=== PATIENT | male | born 1935 | race African-American/Black ===

== ENCOUNTER 2017-03-08 08:58 | Outpatient (CLI) | payer MEDICARE ==
[2017-03-08 09:21] LABS: Blood Urea Nitrogen 26 mg/dL (9-20)
--- NOTE | 2017-03-09 08:02 | Cat Scan Report ---
CTA NECK: HISTORY: Occlusion or stenosis the carotid arteries. TECHNIQUE: Helical CT following IV contrast. Sagittal and coronal reformatted images. 3D volume rendering technique. Stenosis was calculated using NASCET criteria. Comparison: 03/24/15. FINDINGS: The visualized aortic arch, innominate artery and proximal bilateral subclavian arteries are widely patent with less than 20% stenosis. Within the right carotid system: There are moderate to severe calcified, irregular plaques in the right carotid bulb. There appears to be mild poststenotic dilatation in the proximal right ICA. Stenosis in the right carotid bulb is estimated at 70% or greater. The right ICA is widely patent with less than 20% stenosis throughout. Within the left carotid system: Endarterectomy changes are suspected since 2015. The left carotid system is widely patent with less than 20% stenosis. There are moderate calcifications and estimated 50% stenosis at the origin of both cervical vertebral arteries. The remainder of the vertebral arteries are widely patent with less than 20% stenosis. The left vertebral artery is slightly dominant. IMPRESSION: Endarterectomy changes within the left carotid system since 2015 exam with no abnormality noted on today's exam. Moderate to severe atherosclerotic disease is identified in the right carotid bulb with stenosis estimated at 70% or greater as outlined above. Consider correlation with carotid Doppler ultrasound. 50% stenosis at the origin of the vertebral arteries bilaterally.
== END 2017-03-08 08:59 | disposition home or self-care (01) ==
LOC: CT 08:58
PROVIDERS: ATTEND Surgery Vascular Surgery
DX: I63.239 Cerebral infarction due to unspecified occlusion or stenosis of unspecified carotid artery (principal); I10 Essential (primary) hypertension; Z98.890 Other specified postprocedural states
CPT/HCPCS: 36415; 70498; 82565; 84520; Q9967

== ENCOUNTER 2018-03-03 09:56 | Outpatient (CLI) | payer MEDICARE ==
[2018-03-03 11:04] LABS: Blood Urea Nitrogen 15 mg/dL (9-20)
--- NOTE | 2018-03-03 15:42 | Cat Scan Report ---
FINAL REPORT EXAM: CT ANGIO NECK HEAD HISTORY: CTA CAROTID AND VERTEBRAL, CEREBRAL INFRACTURE TECHNIQUE: CTA of the Head and Neck with IV contrast. Coronal and sagittal reconstructed imaging provided. Carotid stenosis calculated by the NASCET method. PRIORS: None currently available. FINDINGS: HEAD: Moderate to severe calcified plaque in the cavernous carotids with 65-75 percent narrowing in both. Irregular wall of the right and left M1 segments. With 30-40 percent narrowing of the left M1 segment and 20-30 percent narrowing of the right M1 segment The remainder of the anterior circulation appears patent. The M2 segments are patent. Posterior circulation appears patent. Mild calcification in the intracranial vertebral arteries. NECK: RIGHT CAROTID: Origin: Mild plaque. Common: Unremarkable. Bifurcation: Mostly calcified plaque. 65-75 percent narrowing. Internal: Calcified plaque at the proximal portion causes 75-85 percent narrowing. Mid and distal segments are patent. External: Unremarkable. There is no aneurysm, dissection, vascular malformation, or significant vascular stenosis. There is no evidence for vasculitis. LEFT CAROTID: Origin: Mild plaque. Common: Mild plaque in the mid segment. Bifurcation: Ectatic measuring 1.1 cm with mild wall thickening. Suspect prior endarterectomy. Internal: Mild calcification and wall thickening at the proximal segment. Mid and distal segments are intact. Mild calcification at the distal segment. External: Unremarkable. There is no aneurysm, dissection, vascular malformation, or significant vascular stenosis. There is no evidence for vasculitis. VERTEBRALS: Ekba-[id number] disease at the origin of the both vertebral arteries. Left vertebral artery is slightly more prominent compared to the right. There is no aneurysm, dissection, vascular malformation, or significant vascular stenosis. There is no evidence for vasculitis. Moderate aortic atherosclerotic disease. No aneurysm or dissection. Major branch arteries are unremarkable. Partially imaged main pulmonary artery is unremarkable. Severe emphysema. 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 Irregularity of the right and left M1 segments without occlusions suggests mural thrombus or vasculitis. Left is more notable compared to the right. Hemodynamically significant stenosis in the right bifurcation and proximal ICA. Suspect post endarterectomy changes at the left bifurcation proximal ICA.
== END 2018-03-03 09:57 | disposition home or self-care (01) ==
LOC: CT 09:56
PROVIDERS: ATTEND Surgery Vascular Surgery
DX: I63.239 Cerebral infarction due to unspecified occlusion or stenosis of unspecified carotid artery (principal); M53.82 Other specified dorsopathies, cervical region; I70.0 Atherosclerosis of aorta; J43.9 Emphysema, unspecified; I10 Essential (primary) hypertension; I25.10 Atherosclerotic heart disease of native coronary artery without angina pectoris; E78.00 Pure hypercholesterolemia, unspecified; K21.9 Gastro-esophageal reflux disease without esophagitis; M10.9 Gout, unspecified; Z87.891 Personal history of nicotine dependence
CPT/HCPCS: 36415; 70498; 82565; 84520; Q9967

== ENCOUNTER 2018-07-04 16:58 | Inpatient (IN) | payer MEDICARE ==
--- NOTE | 2018-07-04 17:20 | Emergency Department Report ---
Blank Doc - Documentation Documentation: This is a 83-year-old male that presents with ZULEYKA with exertion x 2 days. He reports a cough for 5 days. History of COPD, HTN, and HLD. Sat 88 % on room air. 3L oxygen applied. This initial assessment diagnostic orders/clinical plan/treatment(s) is/are subject to change based on patient's health status, clinical progression and re- assessment by fellow clinical providers in the ED. Further treatment and workup at subsequent clinical providers discretion. Patient/guardians urged not to elope from ED s their condition may be serious if not clinically assessed and managed. Initial orders include: Labs, EKG, and CXR Main ED for evaluation.
[2018-07-04] MEDS ORDERED: MAGNESIUM SULFATE 2GM/50ML 2 GM/50 ML BAG IV ONE (17:43)
[2018-07-04] MEDS ORDERED: ATROVENT IH ONE (17:43)
[2018-07-04] MEDS ORDERED: SOLU-Medrol IV ONE (17:43)
[2018-07-04] MEDS ORDERED: PROVENTIL IH ONE (17:43)
[2018-07-04 17:58] LABS: Basophils # (Auto) 0.1 K/mm3 (0.0-0.1); Basophils % (Auto) 0.6 % (0.0-1.8); Eosinophils # (Auto) 0.2 K/mm3 (0.0-0.4); Eosinophils % (Auto) 0.9 % (0.0-4.3); Hematocrit 41.3 % (35.5-45.6); Hemoglobin 13.8 gm/dl (11.8-15.2); Lymphocytes # (Auto) 1.5 K/mm3 (1.2-5.4); Lymphocytes % (Auto) 8.5 % (13.4-35.0); Mean Corpuscular HGB Conc 33 % (32-34); Mean Corpuscular Volume 91 fl (84-94); Monocytes # (Auto) 1.3 K/mm3 (0.0-0.8); Monocytes % (Auto) 7.6 % (0.0-7.3); Platelet Count 262 K/mm3 (140-440); Red Blood Count 4.52 M/mm3 (3.65-5.03); Red Cell Distribution Width 14.4 % (13.2-15.2)
[2018-07-04 18:16] LABS: BUN/Creatinine Ratio 18; Blood Urea Nitrogen 16 mg/dL (9-20); Hemolysis Index 41
[2018-07-04] MEDS ORDERED: NACL 0.9% 1000 ML 1,000 ML IV ONE (18:34)
[2018-07-04] MEDS ORDERED: LEVAQUIN 500MG/100ML 500 MG/100 ML BAG IV ONE (18:34)
[2018-07-04] MEDS ORDERED: NACL 0.9% 1000 ML 1,000 ML IV SCH (18:35)
[2018-07-04] MEDS ORDERED: TYLENOL PO ONE (18:38)
[2018-07-04 18:39] LABS: INR 0.89 (0.87-1.13)
--- NOTE | 2018-07-04 18:41 | Emergency Department Report ---
ED General Adult HPI - General Chief complaint: Dyspnea/Respdistress Stated complaint: ZULEYKA Time Seen by Provider: 07/04/18 17:16 Source: family, RN notes reviewed, old records reviewed Mode of arrival: Wheelchair Limitations: Language Barrier - History of Present Illness Initial comments: Patient indicates that he would like his son, Mr. Jay Morejon to translate. Primary care : [facility] Pulmonology: Dr Negron Past medical history: Asthma, hypertension, carotid artery disease, COPD, not currently on home oxygen this is an 83-year-old gentleman who presents to the emergency room with a complaint of painless cough, wheezing, shortness of breath, mucous production. Symptoms have been going on for the past few days, they're constant, worse with physical exertion, and decreased with rest. Initially found to be hypoxic, treated with albuterol, Atrovent, steroids, this improved symptoms. There is no posterior leg pain, no leg swelling, no recent surgeries, no recent hospitalizations, and family endorses no DVT or pulmonary embolus risk factors. -: Gradual Severity scale (0 -10): 0 Improves with: other Worsens with: other Associated Symptoms: cough, loss of appetite, malaise, shortness of breath, weakness. denies: confusion, chest pain, diaphoresis, fever/chills, headaches, nausea/vomiting, rash, seizure - Related Data Home Medications Medication Instructions Recorded Confirmed Last Taken AtorvaSTATin [Lipitor] 1 tab PO DAILY 10/14/14 04/25/16 04/12/16 06:00 Fluticasone/Salmeterol [Advair 1 puff IH BID 10/14/14 04/25/16 04/11/16 Diskus 250-50 mcg] Lisinopril [Zestril TAB] 40 mg PO QDAY 10/14/14 04/25/16 04/12/16 06:00 Metoprolol [Lopressor TAB] 50 mg PO DAILY 03/21/15 04/25/16 04/11/16 08:00 Tamsulosin [Flomax] 0.4 mg PO QDAY 03/21/15 04/25/16 04/11/16 Alendronate Sodium [Fosamax] 70 mg PO QWEEK 01/16/16 04/25/16 04/11/16 Aspirin EC [Aspirin Enteric Coated 81 mg PO QDAY 01/16/16 04/25/16 03/30/16 TAB] Meloxicam [Mobic] 15 mg PO DAILY 01/16/16 04/25/16 03/23/16 Montelukast [Singulair] 10 mg PO QPM 01/16/16 04/25/16 04/11/16 Pentoxifylline [TRENtal] 400 mg PO BID 01/16/16 04/25/16 04/11/16 cycloSPORINE [Restasis 0.05%] 1 drop OU BID 01/16/16 04/25/16 04/11/16 Albuterol Sulfate [Ventolin HFA] 1 unit IH BID 01/19/16 04/25/16 04/12/16 06:00 Fluticasone/Salmeterol [Advair 1 puff INHALATION DAILY 04/09/16 04/25/16 04/11/16 250-50 Diskus] Lipase/Protease/Amylase [Creon Dr 1 each PO DAILY 04/09/16 04/25/16 04/11/16 24,000 Units Capsule] Loratadine [Allergy Relief] 10 mg PO DAILY 04/09/16 04/25/16 04/11/16 Omeprazole 40 mg PO DAILY 04/09/16 04/25/16 04/11/16 Simethicone 80 mg PO DAILY 04/09/16 04/25/16 04/11/16 Previous Rx's Medication Instructions Recorded Last Taken Type Clopidogrel [Plavix] 75 mg PO QDAY #30 tablet 03/25/15 04/04/16 Rx HYDROcodone/APAP 5-325 [[place] 1 - 2 each PO Q6HR PRN #60 tablet 03/25/15 04/11/16 Rx 5-325 mg TAB] HYDROcodone/APAP 5-325 [[place] 1 each PO Q4HR PRN #14 tablet 04/21/16 Unknown Rx 5/325] HYDROcodone/APAP 5-325 [[place] 1 - 2 each PO Q6HR PRN #10 tablet 04/25/16 Unknown Rx 5/325] Allergies Allergy/AdvReac Type Severity Reaction Status Date / Time No Known Allergies Allergy Verified 01/19/16 08:38 ED Review of Systems ROS: Stated complaint: ZULEYKA Other details as noted in HPI Constitutional: malaise, weakness Eyes: denies: eye discharge ENT: congestion Respiratory: SOB with exertion, wheezing Cardiovascular: denies: chest pain Gastrointestinal: abdominal pain Genitourinary: denies: dysuria Musculoskeletal: denies: arthralgia Skin: denies: lesions Neurological: weakness ED Past Medical Hx - Past Medical History Previous Medical History?: Yes Hx Hypertension: Yes (PULMONARY HYPERTENSION) Hx Heart Attack/AMI: No Hx GERD: Yes Hx Liver Disease: No Hx Renal Disease: No Hx Arthritis: Yes Hx Headaches / Migraines: Yes Hx Asthma: No Hx COPD: Yes Hx HIV: No Additional medical history: bladder tumor. elevated cholestrol - Surgical History Hx Open Heart Surgery: Yes ("RING AROUND VALVE",CABG, or tell me that the patient had a valvuloplasty ) Additional Surgical History: eye surgery. mitral valve repair - Social History Smoking Status: Former Smoker Substance Use Type: Alcohol - Medications Home Medications: Home Medications Medication Instructions Recorded Confirmed Last Taken Type AtorvaSTATin [Lipitor] 1 tab PO DAILY 10/14/14 04/25/16 04/12/16 06:00 History Fluticasone/Salmeterol [Advair 1 puff IH BID 10/14/14 04/25/16 04/11/16 History Diskus 250-50 mcg] Lisinopril [Zestril TAB] 40 mg PO QDAY 10/14/14 04/25/16 04/12/16 06:00 History Metoprolol [Lopressor TAB] 50 mg PO DAILY 03/21/15 04/25/16 04/11/16 08:00 H istory Tamsulosin [Flomax] 0.4 mg PO QDAY 03/21/15 04/25/16 04/11/16 History Clopidogrel [Plavix] 75 mg PO QDAY #30 tablet 03/25/15 04/25/16 04/04/16 Rx HYDROcodone/APAP 5-325 [[place] 1 - 2 each PO Q6HR PRN #60 tablet 03/25/15 04/25/16 04/11/16 Rx 5-325 mg TAB] Alendronate Sodium [Fosamax] 70 mg PO QWEEK 01/16/16 04/25/16 04/11/16 History Aspirin EC [Aspirin Enteric Coated 81 mg PO QDAY 01/16/16 04/25/16 03/30/16 History TAB] Meloxicam [Mobic] 15 mg PO DAILY 01/16/16 04/25/16 03/23/16 History Montelukast [Singulair] 10 mg PO QPM 01/16/16 04/25/16 04/11/16 History Pentoxifylline [TRENtal] 400 mg PO BID 01/16/16 04/25/16 04/11/16 History cycloSPORINE [Restasis 0.05%] 1 drop OU BID 01/16/16 04/25/16 04/11/16 History Albuterol Sulfate [Ventolin HFA] 1 unit IH BID 01/19/16 04/25/16 04/12/16 06:00 History Fluticasone/Salmeterol [Advair 1 puff INHALATION DAILY 04/09/16 04/25/16 04/11/16 History 250-50 Diskus] Lipase/Protease/Amylase [Creon Dr 1 each PO DAILY 04/09/16 04/25/16 04/11/16 History 24,000 Units Capsule] Loratadine [Allergy Relief] 10 mg PO DAILY 04/09/16 04/25/16 04/11/16 History Omeprazole 40 mg PO DAILY 04/09/16 04/25/16 04/11/16 History Simethicone 80 mg PO DAILY 04/09/16 04/25/16 04/11/16 History HYDROcodone/APAP 5-325 [[place] 1 each PO Q4HR PRN #14 tablet 04/21/16 04/25/16 Unknown Rx 5/325] HYDROcodone/APAP 5-325 [[place] 1 - 2 each PO Q6HR PRN #10 tablet 04/25/16 Unknown Rx 5/325] ED Physical Exam - General Limitations: Language Barrier General appearance: alert, in no apparent distress - Head Head exam: Present: atraumatic, normocephalic - Eye Eye exam: Present: normal appearance, EOMI. Absent: nystagmus - ENT ENT exam: Present: normal exam, normal orophraynx, mucous membranes moist, normal external ear exam - Neck Neck exam: Present: normal inspection, full ROM - Respiratory Respiratory exam: Present: respiratory distress, wheezes, rhonchi - Cardiovascular Cardiovascular Exam: Present: regular rate, normal rhythm, normal heart sounds. Absent: bradycardia, tachycardia, irregular rhythm, systolic murmur, diastolic murmur, rubs, gallop - GI/Abdominal GI/Abdominal exam: Present: soft. Absent: distended, tenderness, guarding, rebound, rigid, pulsatile mass - Rectal Rectal exam: Present: deferred - Extremities Exam Extremities exam: Present: normal inspection, full ROM, other (2+ pulses noted in the bilateral upper, lower extremities. Compartments soft. No long bony tenderness. The pelvis is stable.). Absent: calf tenderness - Back Exam Back exam: Present: normal inspection, full ROM. Absent: tenderness, CVA tenderness (R), paraspinal tenderness, vertebral tenderness - Neurological Exam Neurological exam: Present: alert, other (Extraocular movements intact. Tongue midline. No facial droop. Facial sensation intact to light touch in the V1, V2, V3 distribution bilaterally. 5 and 5 strength in 4 extremities.. Sensation is intact to light touch in 4 extremities.). Absent: motor sensory deficit - Psychiatric Psychiatric exam: Present: anxious - Skin Skin exam: Present: warm, dry, intact, normal color. Absent: rash ED Course Vital Signs 07/04/18 07/04/18 17:16 17:56 Temperature 99.3 F Pulse Rate 96 H Pulse Rate [ 92 H Anterior Bilateral Throughout] Respiratory 22 Rate Respiratory 20 Rate [Anterior Bilateral Throughout] Blood Pressure 124/56 O2 Sat by Pulse 88 Oximetry - Reevaluation(s) Reevaluation #1: 07/04/18 18:49 Dr Angeles to admit ED Medical Decision Making - Lab Data Result diagrams: 07/04/18 17:30 07/04/18 17:30 Vital Signs 07/04/18 07/04/18 17:16 17:56 Temperature 99.3 F Pulse Rate 96 H Pulse Rate [ 92 H Anterior Bilateral Throughout] Respiratory 22 Rate Respiratory 20 Rate [Anterior Bilateral Throughout] Blood Pressure 124/56 O2 Sat by Pulse 88 Oximetry Lab Results 07/04/18 07/04/18 Range/Units 17:30 17:30 WBC 17.7 H (4.5-11.0) K/mm3 RBC 4.52 (3.65-5.03) M/mm3 Hgb 13.8 (11.8-15.2) gm/dl Hct 41.3 (35.5-45.6) % MCV 91 (84-94) fl MCH 31 (28-32) pg MCHC 33 (32-34) % RDW 14.4 (13.2-15.2) % Plt Count 262 (140-440) K/mm3 Lymph % (Auto) 8.5 L (13.4-35.0) % Coleman % (Auto) 7.6 H (0.0-7.3) % Eos % (Auto) 0.9 (0.0-4.3) % Baso % (Auto) 0.6 (0.0-1.8) % Lymph # 1.5 (1.2-5.4) K/mm3 Coleman # 1.3 H (0.0-0.8) K/mm3 Eos # 0.2 (0.0-0.4) K/mm3 Baso # 0.1 (0.0-0.1) K/mm3 Seg Neutrophils % 82.4 H (40.0-70.0) % Seg Neutrophils # 14.6 H (1.8-7.7) K/mm3 Sodium 138 (137-145) mmol/L Potassium 4.3 (3.6-5.0) mmol/L Chloride 102.3 (98-107) mmol/L Carbon Dioxide 26 (22-30) mmol/L Anion Gap 14 mmol/L BUN 16 (9-20) mg/dL Creatinine 0.9 (0.8-1.5) mg/dL Estimated GFR > 60 ml/min BUN/Creatinine Ratio 18 % Glucose 109 H (75-100) mg/dL Calcium 9.0 (8.4-10.2) mg/dL - EKG Data -: EKG Interpreted by [facility] EKG shows normal: sinus rhythm - EKG Data When compared to previous EKG there are: previous EKG unavailable 07/04/18 18:39 Sinus, 90 bpm, total and right with axis deviation, QTC prolonged, right bundle branch block, not having chest pain, abnormal EKG, not consistent with ST elevation myocardial infarction. - Radiology Data Radiology results: image reviewed interpreted by me: X-ray of the chest is hyperinflated, otherwise no acute disease - Medical Decision Making Differential diagnosis, including but not limited to: Pneumonia, bronchitis, COPD exacerbation Assessment and plan: 83-year-old gentleman, no pulmonary embolus or DVT risk factors, low risk by well's criteria, most likely diagnosis is COPD exacerbation, presenting with tachycardia, leukocytosis, low-grade temperature, suspect pneumonia versus COPD exacerbation. Patient ruling in for systemic inflammatory response syndrome, by merit of leukocytosis, heart rate greater than 90. He'll be treated empirically with albuterol, Atrovent, steroids, magnesium, acetaminophen, IV fluids, and appropriate antibiotics. Hospital physician is paged to arrange admission. Critical care attestation.: If time is entered above; I have spent that time in minutes in the direct care of this critically ill patient, excluding procedure time. ED Disposition Clinical Impression: SIRS (systemic inflammatory response syndrome), COPD with exacerbation Disposition: DC-09 OP ADMIT IP TO THIS HOSP Is pt being admited?: Yes Condition: Fair Instructions: Chronic Obstructive Pulmonary Disease (ED)
[2018-07-05] MEDS ORDERED: PROVENTIL IH PRN (01:48)
[2018-07-05] MEDS ORDERED: DILAUDID IV PRN (01:48)
[2018-07-05] MEDS ORDERED: ZOFRAN IV PRN (01:48)
[2018-07-05] MEDS ORDERED: TYLENOL PO PRN (01:48)
[2018-07-05] MEDS ORDERED: PERCOCET 5/325 PO PRN (01:48)
[2018-07-05] MEDS ORDERED: SODIUM CHLORIDE FLUSH SYRINGE 10 ML IV PRN (01:48)
[2018-07-05] MEDS ORDERED: NON-FORMULARY (Fluticasone/Salmeterol [Advair 500-50 Diskus] 1 EACH) IH SCH (02:00)
[2018-07-05] MEDS ORDERED: NON-FORMULARY (Albuterol Sulfate [Proair Respiclick] 90 MCG) IH SCH (02:00)
[2018-07-05] MEDS ORDERED: NON-FORMULARY (Ipratropium/Albuterol Sulfate [Combivent Respimat] 1 SPRAY) IH SCH (02:00)
[2018-07-05] MEDS ORDERED: TRENTAL PO SCH (02:00)
[2018-07-05] MEDS: NEURONTIN PO SCH ×3 (04:15→22:34)
[2018-07-05] MEDS: CATAPRES PO SCH ×3 (04:16→22:34)
[2018-07-05] MEDS: SOLU-Medrol IV SCH ×3 (04:18→16:59)
[2018-07-05] MEDS: APRESOLINE PO SCH ×3 (04:25→22:35)
[2018-07-05] MEDS: SODIUM CHLORIDE FLUSH SYRINGE 10 ML IV SCH ×3 (04:34→22:34)
--- NOTE | 2018-07-05 06:04 | Event Note ---
Date: 07/04/18 See Dictated H/p in reports Acute resp failure COPD exacerbation Sepsis
--- NOTE | 2018-07-05 07:04 | History and Physical Report ---
CHIEF COMPLAINT: Increasing shortness of breath and cough for 1 week, worse since yesterday. HISTORY OF PRESENT ILLNESS: An 83-year-old male with history of hypertension, hyperlipidemia, BPH, osteoporosis, gastroesophageal reflux disease, and peripheral arterial disease, comes in for increasing shortness of breath for last 1 week associated with cough and wheezing. Cough productive of mucoid sputum. No fever or chills. Shortness of breath as well in the last 24 hours. Exacerbated by minimal exercise. The patient was found to be hypoxic. Comes in for treatment to the Emergency Room. No recent travel. No fever or chills. PAST MEDICAL HISTORY: As mentioned hypertension, hyperlipidemia, asthma/COPD, peripheral arterial disease, pancreatic insufficiency, gastroesophageal reflux disease. PAST SURGICAL HISTORY: Coronary artery bypass graft and valvuloplasty. Possible aortic valve replacement, eye surgeries, and mitral valve repair. SOCIAL HISTORY: Does not smoke, former smoker. Stopped smoking about 10 years ago. Alcohol occasionally. FAMILY HISTORY: Hypertension. CURRENT MEDICATIONS: On the chart. REVIEW OF SYSTEMS: Significant for increasing wheezing and shortness of breath for 1 week, more so since yesterday. Cough productive of mucoid sputum. Otherwise, review of systems negative. Fourteen-point review of systems is done. PHYSICAL EXAMINATION: GENERAL: Elderly male, cooperative during examination, pleasant. VITAL SIGNS: Temperature 100.2, pulse is 109, respirations are 24. Initial sats were low in the 88%, which improved with oxygenation; respiratory rate is 28; blood pressure 124/56. HEENT: Unremarkable. Pupils equal and reactive. NECK: Supple, no lymphadenopathy, no thyromegaly. LUNGS: Clear to auscultation and percussion. Good air entry. Bilateral rhonchi present. NECK: Accessory muscles of respiration are prominent. CHEST: S1, S2 heard. Apical impulse in left fifth intercostal space and midclavicular line. No murmurs. ABDOMEN: Soft and benign. No hepatosplenomegaly, no guarding, no rigidity. Hernial orifices are normal. EXTREMITIES: Good pedal pulses. No pedal edema. CENTRAL NERVOUS SYSTEM: Alert and oriented x 4, nonfocal exam. SKIN: Normal. LABORATORY DATA: White count of 17,700, H and H are 13.8 and 41.3, platelet count is 262,000. Electrolytes are normal. Glucose is 109. Lactic acid is 1.5. ABG was not done. Chest x-ray shows COPD, no infiltrates. ASSESSMENT AND PLAN: 1. Acute respiratory failure. The patient has been initiated on IV Levaquin, DuoNebs, and IV Solu-Medrol. 2.COPD Exacerbation--IV Solumedrol/IV ABX/Duonebs QID RTC and Albuterol Neb prn 3. Hypertension. Continue metoprolol and hydralazine. Monitor blood pressure. 4. Coronary artery disease. Continue Plavix. 5. Hyperlipidemia. Continue atorvastatin 20 mg once a day. 6. Peripheral arterial disease. Continue pentoxifylline 400 mg b.i.d. 7. Benign prostatic hypertrophy. Continue tamsulosin. 8. Deep venous thrombosis prophylaxis, Lovenox 40 mg subcutaneous daily. JOB# [id number] JEEVAN/DEVIN MTDHamida
[2018-07-05] MEDS: LOPRESSOR PO SCH ×2 (07:10→16:59)
[2018-07-05] MEDS: LEVAQUIN 750MG/150ML 750 MG/150 ML BAG IV SCH (09:19)
[2018-07-05] MEDS: PLAVIX PO SCH (09:26)
[2018-07-05] MEDS: FLOMAX PO SCH (09:26)
[2018-07-05] MEDS: PEPCID PO SCH ×2 (09:26→22:34)
--- NOTE | 2018-07-05 10:03 | Progress Note ---
Assessment and Plan Assessment and plan: Patient is A 83-year-old male with past medical history of COPD, he follows with Dr. Lyons presented to the ER with complaints of shortness of breath worse with exertion for the past 2 days preceded by cough for 5 days. Is being admitted for COPD exacerbation we'll possibly Underlying sepsis Acute Respiratory failure with Hypoxia SIRS- POA Fever of unknow origin POA Possible Underlying Bronchitis COPD exacerbation Constipation HTN CAD BPH PAD PLAN Continue supportive care O2 eval prior to discharge Await Pulmonary input Stool softner Eval for Influenza Continue LABA, TOR, Systemic steroids DVT/GI prophy Plan discussed with patient and family at bedside Plan discussed with the nurse History Interval history: Patient seen and examined, complained of constipation and difficulty mobilizing sputum. Continues to have mild shortness of breath Hospitalist Physical - Physical exam Narrative exam: VITAL SIGNS: Reviewed. GENERAL: The patient appeared well nourished and normally developed. Vital signs as documented. HEAD: No signs of head trauma. EYES: Pupils are equal. Extraocular motions intact. EARS: Hearing grossly intact. MOUTH: Oropharynx is normal. NECK: No adenopathy, no JVD. CHEST: Chest with diminshed breath sounds bilaterally. No wheezes, rales, or r honchi. CARDIAC: Regular rate and rhythm. S1 and S2, without murmurs, gallops, or r ubs. VASCULAR: No Edema. Peripheral pulses normal and equal in all extremities. ABDOMEN: Soft, without detectable tenderness. mild distention. No rebound or guarding, and no masses palpated. Bowel Sounds normal. MUSCULOSKELETAL: Good range of motion of all major joints. Extremities without clubbing, cyanosis or edema. NEUROLOGIC EXAM: Alert and oriented x 3. No focal sensory or strength deficits. Speech normal. Follows commands. PSYCHIATRIC: Mood normal. SKIN: No rash or lesions. - Constitutional Vitals: Temp Pulse Resp BP Pulse Ox 97.8 F 76 20 131/66 97 07/05/18 07:09 07/05/18 07:10 07/05/18 07:09 07/05/18 07:10 07/05/18 07:09 Results - Labs CBC & Chem 7: 07/04/18 17:30 07/04/18 17:30 Labs: Laboratory Last Values WBC 17.7 K/mm3 (4.5-11.0) H 07/04/18 17:30 RBC 4.52 M/mm3 (3.65-5.03) 07/04/18 17:30 Hgb 13.8 gm/dl (11.8-15.2) 07/04/18 17:30 Hct 41.3 % (35.5-45.6) 07/04/18 17:30 MCV 91 fl (84-94) 07/04/18 17:30 MCH 31 pg (28-32) 07/04/18 17:30 MCHC 33 % (32-34) 07/04/18 17:30 RDW 14.4 % (13.2-15.2) 07/04/18 17:30 Plt Count 262 K/mm3 (140-440) 07/04/18 17:30 Lymph % (Auto) 8.5 % (13.4-35.0) L 07/04/18 17:30 [place] % (Auto) 7.6 % (0.0-7.3) H 07/04/18 17:30 Eos % (Auto) 0.9 % (0.0-4.3) 07/04/18 17:30 Baso % (Auto) 0.6 % (0.0-1.8) 07/04/18 17:30 Lymph # 1.5 K/mm3 (1.2-5.4) 07/04/18 17:30 [place] # 1.3 K/mm3 (0.0-0.8) H 07/04/18 17:30 Eos # 0.2 K/mm3 (0.0-0.4) 07/04/18: Baso # 0.1 K/mm3 (0.0-0.1) 07/04/18 17:30 Seg Neutrophils % 82.4 % (40.0-70.0) H 07/04/18 17:30 Seg Neutrophils # 14.6 K/mm3 (1.8-7.7) H 07/04/18 17:30 PT 12.4 Sec. (12.2-14.9) 07/04/18 18:17 INR 0.89 (0.87-1.13) 07/04/18 18:17 Sodium 138 mmol/L (137-145) 07/04/18 17:30 Potassium 4.3 mmol/L (3.6-5.0) 07/04/18 17:30 Chloride 102.3 mmol/L (98-107) 07/04/18 17:30 Carbon Dioxide 26 mmol/L (22-30) 07/04/18 17:30 Anion Gap 14 mmol/L 07/04/18 17:30 BUN 16 mg/dL (9-20) 07/04/18 17:30 Creatinine 0.9 mg/dL (0.8-1.5) 07/04/18 17:30 Estimated GFR > 60 ml/min 07/04/18 17:30 BUN/Creatinine Ratio 18 % 07/04/18 17:30 Glucose 109 mg/dL (75-100) H 07/04/18 17:30 Hemoglobin A1c 6.0 % (4-6) 07/05/18 02:00 Lactic Acid 1.50 mmol/L (0.7-2.0) 07/04/18 20:20 Calcium 9.0 mg/dL (8.4-10.2) 07/04/18 17:30 Magnesium 1.90 mg/dL (1.7-2.3) 07/04/18 18:17
[2018-07-05] MEDS: PULMICORT IH SCH ×2 (10:30→21:27)
[2018-07-05] MEDS: BROVANA NEBU IH SCH ×2 (10:31→21:28)
[2018-07-05] MEDS: DUONEB *Not for PRN Use IH SCH ×4 (10:31→21:27)
[2018-07-05] MEDS ORDERED: SENOKOT PO PRN (11:16)
[2018-07-05] MEDS: SENOKOT PO SCH (11:29)
[2018-07-05] MEDS: MUCINEX ER PO SCH ×2 (11:29→22:34)
--- NOTE | 2018-07-05 12:25 | Consultation ---
History of Present Illness Consult date: 07/05/18 Requesting physician: SIS VERONICA Reason for consult: COPD History of present illness: 83 y/o male, who only speaks Urdu admitted with COPD exacerbation. Is thought to follow with my partner Dr. Negron. Son is at bedside who translates but does not know the name of the lung doctor. Per the patient, feels better now compared to this am. Has a cough productive of thick tanner sputum. No green, no blood. He does have oxygen at home but only uses it as needed per the son. Past History Past Medical History: COPD, hyperlipidemia, other (BPH and PVD) Past Surgical History: Other (unable to obtain) Social history: other (not able to obtain) Family history: other (not able to obtain) Medications and Allergies Allergies Allergy/AdvReac Type Severity Reaction Status Date / Time No Known Allergies Allergy Verified 01/19/16 08:38 Home Medications Medication Instructions Recorded Confirmed Last Taken Type AtorvaSTATin [Lipitor] 20 mg PO DAILY 10/14/14 07/04/18 04/12/16 06:00 History Tamsulosin [Flomax] 0.4 mg PO DAILY 03/21/15 07/04/18 04/11/16 History Montelukast [Singulair] 10 mg PO QPM 01/16/16 07/04/18 04/11/16 History Pentoxifylline [TRENtal] 400 mg PO BID 01/16/16 07/04/18 04/11/16 History Albuterol Sulfate [Proair 90 mcg IH BID 07/04/18 07/04/18 Unknown History Respiclick] Clopidogrel [Plavix] 75 mg PO DAILY 07/04/18 07/04/18 Unknown History Fluticasone/Salmeterol [Advair 1 each IH BID 07/04/18 07/04/18 Unknown History 500-50 Diskus] Gabapentin [Neurontin] 300 mg PO BID 07/04/18 07/04/18 Unknown History Ipratropium/Albuterol Sulfate 1 spray IH BID 07/04/18 07/04/18 Unknown History [Combivent Respimat] Metoprolol [Lopressor] 25 mg PO BID 07/04/18 07/04/18 Unknown History cloNIDine [Catapres] 0.2 mg PO BID 07/04/18 07/04/18 Unknown History hydrALAZINE [Apresoline TAB] 100 mg PO BID 07/04/18 07/04/18 Unknown History Active Meds: Active Medications Acetaminophen (Tylenol) 650 mg PO Q4H PRN PRN Reason: Pain MILD(1-3)/Fever >100.5/BRYAN Albuterol (Proventil) 2.5 mg IH Q4HRT PRN PRN Reason: Shortness Of Breath Albuterol/Ipratropium (Duoneb *Not For Prn Use*) 1 ampul IH QIDRT [facility] Last Admin: 07/05/18 10:31 Dose: 1 ampul Documented by: Arformoterol Tartrate (Brovana Nebu) 15 mcg IH Q12HRT [facility] Last Admin: 07/05/18 10:31 Dose: 15 mcg Documented by: Atorvastatin Calcium (Lipitor) 20 mg PO DAILY [facility] Last Admin: 07/05/18 09:25 Dose: 20 mg Documented by: Budesonide (Pulmicort) 1 mg IH Q12HRT [facility] Last Admin: 07/05/18 10:30 Dose: 1 mg Documented by: Clonidine HCl (Catapres) 0.2 mg PO BID [facility] Last Admin: 07/05/18 09:27 Dose: Not Given Documented by: Clopidogrel Bisulfate (Plavix) 75 mg PO DAILY [facility] Last Admin: 07/05/18 09:26 Dose: 75 mg Documented by: Famotidine (Pepcid) 20 mg PO BID [facility] Last Admin: 07/05/18 09:26 Dose: 20 mg Documented by: Gabapentin (Neurontin) 300 mg PO BID [facility] Last Admin: 07/05/18 09:25 Dose: 300 mg Documented by: Guaifenesin (Mucinex Er) 600 mg PO BID [facility] Last Admin: 07/05/18 11:29 Dose: 600 mg Documented by: Hydralazine HCl (Apresoline) 100 mg PO BID [facility] Last Admin: 07/05/18 09:27 Dose: Not Given Documented by: Hydromorphone HCl (Dilaudid) 0.5 mg IV Q3H PRN PRN Reason: Pain , Severe (7-10) Sodium Chloride (Nacl 0.9% 1000 Ml) 1,000 mls @ 0 mls/hr IV ONCE [facility] Stop: 07/05/18 18:36 Levofloxacin/Dextrose (Levaquin 750mg/150ml) 750 mg in 150 mls @ 100 mls/hr IV Q24HR [facility]; Protocol Last Admin: 07/05/18 09:19 Dose: 100 mls/hr Documented by: Methylprednisolone Sodium Succinate (Solu-Medrol) 60 mg IV Q8H [facility] Last Admin: 07/05/18 09:22 Dose: 60 mg Documented by: Metoprolol Tartrate (Lopressor) 25 mg PO BID@0800,1700 [facility] Last Admin: 07/05/18 07:10 Dose: 25 mg Documented by: Montelukast Sodium (Singulair) 10 mg PO QPM [facility] Ondansetron HCl (Zofran) 4 mg IV Q8H PRN PRN Reason: Nausea And Vomiting Oxycodone/Acetaminophen (Percocet 5/325) 1 tab PO Q6H PRN PRN Reason: Pain, Moderate (4-6) Pentoxifylline (Trental) 400 mg PO BID [facility] Senna (Senokot) 8.6 mg PO Q12H [facility] Last Admin: 07/05/18 11:29 Dose: 8.6 mg Documented by: Sodium Chloride (Sodium Chloride Flush Syringe 10 Ml) 10 ml IV BID [facility] Last Admin: 07/05/18 11:29 Dose: 10 ml Documented by: Sodium Chloride (Sodium Chloride Flush Syringe 10 Ml) 10 ml IV PRN PRN PRN Reason: LINE FLUSH Tamsulosin HCl (Flomax) 0.4 mg PO DAILY [facility] Last Admin: 07/05/18 09:26 Dose: 0.4 mg Documented by: Physical Examination Vital signs: Vital Signs Temp Pulse Resp BP Pulse Ox 99.3 F 96 H 22 124/56 88 07/04/18 17:16 07/04/18 17:16 07/04/18 17:16 07/04/18 17:16 07/04/18 17:16 General appearance: no acute distress, alert Eyes: non-icteric ENT: oropharynx moist Neck: supple, no JVD Effort: normal Ascultation: Bilateral: diminished breath sounds, wheezes Percussion: Bilateral: not dull Cardiovascular: regular rate and rhythm Gastrointestinal: normoactive bowel sounds, soft, non-tender Extremities: no cyanosis, no edema, pink and warm, pulses normal normal mental status, non-focal exam Results - Laboratory Findings CBC and BMP: 07/04/18 17:30 07/04/18 17:30 PT/INR, D-dimer PT 12.4 Sec. (12.2-14.9) 07/04/18 18:17 INR 0.89 (0.87-1.13) 07/04/18 18:17 Abnormal lab findings: Abnormal Labs 07/04/18 07/04/18 17:30 17:30 WBC 17.7 H Lymph % (Auto) 8.5 L [place] % (Auto) 7.6 H [place] # 1.3 H Seg Neutrophils % 82.4 H Seg Neutrophils # 14.6 H Glucose 109 H - Diagnostic Findings Chest x-ray: image reviewed Assessment and Plan 83 y/o male with chronic respiratory failure admitted with COPD exacerbation. 1. Continue IV steroids at current dosing. Can likely decrease to 40q8 tomorrow 2. Abx for 5 days only 3. Continue BID pulmicort and brovana for now. Not on any long acting meds as an outpatient. Will obtain office records as to why. Will continue to follow along with you. Thank you for this consult.
--- NOTE | 2018-07-05 13:32 | XRay Report ---
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 Heart size and pulmonary vascularity are within normal limits. The lungs are clear although mild emphysematous changes are suspected. The thoracic cage is grossly intact. IMPRESSION: No acute cardiopulmonary process is identified. Chronic findings as described.
[2018-07-05] MEDS ORDERED: MILK OF MAGNESIA PO PRN (16:00)
[2018-07-05] MEDS: SINGULAIR PO SCH (16:59)
[2018-07-06] MEDS: SENOKOT PO SCH ×3 (02:59→23:59)
[2018-07-06] MEDS: SOLU-Medrol IV SCH ×4 (03:00→22:34)
[2018-07-06] MEDS: LOPRESSOR PO SCH ×2 (07:08→17:15)
[2018-07-06 08:14] LABS: Hematocrit 40.6 % (35.5-45.6); Hemoglobin 13.3 gm/dl (11.8-15.2); Mean Corpuscular HGB Conc 33 % (32-34); Mean Corpuscular Volume 92 fl (84-94); Platelet Count 288 K/mm3 (140-440); Red Blood Count 4.41 M/mm3 (3.65-5.03); Red Cell Distribution Width 14.7 % (13.2-15.2)
[2018-07-06] MEDS: PULMICORT IH SCH ×2 (08:19→20:57)
[2018-07-06] MEDS: DUONEB *Not for PRN Use IH SCH ×2 (08:19→20:57)
[2018-07-06] MEDS: BROVANA NEBU IH SCH ×2 (08:20→20:57)
[2018-07-06 09:08] LABS: Basophils % (Manual) 0 % (0.0-1.8); Eosinophils % (Manual) 0 % (0.0-4.3); Monocytes % (Manual) 0 % (0.0-7.3); Total Cells Counted 100
[2018-07-06 09:09] LABS: Anisocytosis 1+; Platelet Estimate Consistent w Auto
[2018-07-06] MEDS: NEURONTIN PO SCH ×2 (09:20→22:33)
[2018-07-06] MEDS: MUCINEX ER PO SCH ×2 (09:20→22:33)
[2018-07-06] MEDS: LEVAQUIN 750MG/150ML 750 MG/150 ML BAG IV SCH (09:20)
[2018-07-06] MEDS: PEPCID PO SCH ×2 (09:21→22:33)
[2018-07-06] MEDS: CATAPRES PO SCH ×2 (09:21→22:33)
[2018-07-06] MEDS: PLAVIX PO SCH (09:21)
[2018-07-06] MEDS: FLOMAX PO SCH (09:21)
[2018-07-06] MEDS: APRESOLINE PO SCH ×2 (09:21→22:33)
[2018-07-06] MEDS: SODIUM CHLORIDE FLUSH SYRINGE 10 ML IV SCH ×2 (09:22→22:34)
--- NOTE | 2018-07-06 09:58 | Progress Note ---
Assessment and Plan Assessment and plan: Patient is A 83-year-old male with past medical history of COPD, he follows with Dr. Lyons presented to the ER with complaints of shortness of breath worse with exertion for the past 2 days preceded by cough for 5 days. Is being admitted for COPD exacerbation we'll possibly Underlying sepsis Acute Respiratory failure with Hypoxia SIRS- POA Fever of unknow origin POA Possible Underlying Bronchitis COPD exacerbation Constipation HTN CAD BPH PAD PLAN Continue supportive care O2 eval prior to discharge Awaiting Rapid flu test- test was cancelled and repeated today Pulmonary input noted Abx for 5 days total Stool softener Eval for Influenza Continue LABA, TOR, Systemic steroids DVT/GI prophy Plan discussed with patient and family at bedside Plan discussed with the nurse Anticipate discharge tomorrow. History Interval history: Patient seen and examined, Reports improvement in shortness of breath symptoms, still with constipation and difficulty mobilizing sputum. Hospitalist Physical - Physical exam Narrative exam: VITAL SIGNS: Reviewed. GENERAL: The patient appeared well nourished and normally developed. Vital signs as documented. HEAD: No signs of head trauma. EYES: Pupils are equal. Extraocular motions intact. EARS: Hearing grossly intact. MOUTH: Oropharynx is normal. NECK: No adenopathy, no JVD. CHEST: Chest with diminshed breath sounds bilaterally. No wheezes, rales, or rhonchi. CARDIAC: Regular rate and rhythm. S1 and S2, without murmurs, gallops, or rubs. VASCULAR: No Edema. Peripheral pulses normal and equal in all extremities. ABDOMEN: Soft, without detectable tenderness. mild distention. No rebound or guarding, and no masses palpated. Bowel Sounds normal. MUSCULOSKELETAL: Good range of motion of all major joints. Extremities without clubbing, cyanosis or edema. NEUROLOGIC EXAM: Alert and oriented x 3. No focal sensory or strength deficits. Speech normal. Follows commands. PSYCHIATRIC: Mood normal. SKIN: No rash or lesions. - Constitutional Vitals: Temp Pulse Resp BP Pulse Ox 97.6 F 77 18 141/75 94 07/06/18 07:09 07/06/18 09:21 07/06/18 08:21 07/06/18 09:21 07/06/18 08:22 Results - Labs CBC & Chem 7: 07/06/18 08:03 07/04/18 17:30 Labs: Laboratory Last Values WBC 16.9 K/mm3 (4.5-11.0) H 07/06/18 08:03 RBC 4.41 M/mm3 (3.65-5.03) 07/06/18 08:03 Hgb 13.3 gm/dl (11.8-15.2) 07/06/18 08:03 Hct 40.6 % (35.5-45.6) 07/06/18 08:03 MCV 92 fl (84-94) 07/06/18 08:03 MCH 30 pg (28-32) 07/06/18 08:03 MCHC 33 % (32-34) 07/06/18 08:03 RDW 14.7 % (13.2-15.2) 07/06/18 08:03 Plt Count 288 K/mm3 (140-440) 07/06/18 08:03 Lymph % (Auto) 8.5 % (13.4-35.0) L 07/04/18 17:30 [place] % (Auto) 7.6 % (0.0-7.3) H 07/04/18 17:30 Eos % (Auto) 0.9 % (0.0-4.3) 07/04/18 17:30 Baso % (Auto) 0.6 % (0.0-1.8) 07/04/18 17:30 Lymph # 1.5 K/mm3 (1.2-5.4) 07/04/18 17:30 [place] # 1.3 K/mm3 (0.0-0.8) H 07/04/18 17:30 Eos # 0.2 K/mm3 (0.0-0.4) 07/04/18 17:30 Baso # 0.1 K/mm3 (0.0-0.1) 07/04/18 17:30 Add Manual Diff Complete 07/06/18 08:03 Total Counted 100 07/06/18 08:03 Seg Neutrophils % [employer] 07/06/18 08:03 Seg Neuts % (Manual) 97.0 % (40.0-70.0) H 07/06/18 08:03 Band Neutrophils % 0 % 07/06/18 08:03 Lymphocytes % (Manual) 3.0 % (13.4-35.0) L 07/06/18 08:03 Reactive Lymphs % (Man) 0 % 07/06/18 08:03 Monocytes % (Manual) 0 % (0.0-7.3) 07/06/18 08:03 Eosinophils % (Manual) 0 % (0.0-4.3) 07/06/18 08:03 Basophils % (Manual) 0 % (0.0-1.8) 07/06/18 08:03 Metamyelocytes % 0 % 07/06/18 08:03 Myelocytes % 0 % 07/06/18 08:03 Promyelocytes % 0 % 07/06/18 08:03 Blast Cells % 0 % 07/06/18 08:03 Nucleated RBC % Not Reportable 07/06/18 08:03 Seg Neutrophils # 14.6 K/mm3 (1.8-7.7) H 07/04/18 17:30 Seg Neutrophils # Man 16.4 K/mm3 (1.8-7.7) H 07/06/18 08:03 Band Neutrophils # 0.0 K/mm3 07/06/18 08:03 Lymphocytes # (Manual) 0.5 K/mm3 (1.2-5.4) L 07/06/18 08:03 Abs React Lymphs (Man) 0.0 K/mm3 07/06/18 08:03 Monocytes # (Manual) 0.0 K/mm3 (0.0-0.8) 07/06/18 08:03 Eosinophils # (Manual) 0.0 K/mm3 (0.0-0.4) 07/06/18 08:03 Basophils # (Manual) 0.0 K/mm3 (0.0-0.1) 07/06/18 08:03 Metamyelocytes # 0.0 K/mm3 07/06/18 08:03 Myelocytes # 0.0 K/mm3 07/06/18 08:03 Promyelocytes # 0.0 K/mm3 07/06/18 08:03 Blast Cells # 0.0 K/mm3 07/06/18 08:03 WBC Morphology Not Reportable 07/06/18 08:03 Hypersegmented Neuts Not Reportable 07/06/18 08:03 Hyposegmented Neuts Not Reportable 07/06/18 08:03 Hypogranular Neuts Not Reportable 07/06/18 08:03 Smudge Cells Not Reportable 07/06/18 08:03 Toxic Granulation Not Reportable 07/06/18 08:03 Toxic Vacuolation Not Reportable 07/06/18 08:03 Dohle Bodies Not Reportable 07/06/18 08:03 Pelger-Huet Anomaly Not Reportable 07/06/18 08:03 Liang Rods Not Reportable 07/06/18 08:03 Platelet Estimate Consistent w auto 07/06/18 08:03 Clumped Platelets Not Reportable 07/06/18 08:03 Plt Clumps, EDTA Not Reportable 07/06/18 08:03 Large Platelets Not Reportable 07/06/18 08:03 Giant Platelets Not Reportable 07/06/18 08:03 Platelet Satelliting Not Reportable 07/06/18 08:03 Plt Morphology Comment Not Reportable 07/06/18 08:03 RBC Morphology Not Reportable 07/06/18 08:03 Dimorphic RBCs Not Reportable 07/06/18 08:03 Polychromasia Not Reportable 07/06/18 08:03 Hypochromasia Not Reportable 07/06/18 08:03 Poikilocytosis Not Reportable 07/06/18 08:03 Anisocytosis 1+ 07/06/18 08:03 Microcytosis Not Reportable 07/06/18 08:03 Macrocytosis Not Reportable 07/06/18 08:03 Spherocytes Not Reportable 07/06/18 08:03 Pappenheimer Bodies Not Reportable 07/06/18 08:03 Sickle Cells Not Reportable 07/06/18 08:03 Target Cells Not Reportable 07/06/18 08:03 Tear Drop Cells Not Reportable 07/06/18 08:03 Ovalocytes Not Reportable 07/06/18 08:03 Helmet Cells Not Reportable 07/06/18 08:03 [place] Bodies Not Reportable 07/06/18 08:03 [place] Rings Not Reportable 07/06/18 08:03 Bath Cells Not Reportable 07/06/18 08:03 Bite Cells Not Reportable 07/06/18 08:03 Crenated Cell Not Reportable 07/06/18 08:03 Elliptocytes Not Reportable 07/06/18 08:03 Acanthocytes (Spur) Not Reportable 07/06/18 08:03 Rouleaux Not Reportable 07/06/18 08:03 Hemoglobin C Crystals Not Reportable 07/06/18 08:03 Schistocytes Not Reportable 07/06/18 08:03 Malaria parasites Not Reportable 07/06/18 08:03 Fuad Bodies Not Reportable 07/06/18 08:03 Hem Pathologist Commnt No 07/06/18 08:03 PT 12.4 Sec. (12.2-14.9) 07/04/18 18:17 INR 0.89 (0.87-1.13) 07/04/18 18:17 Sodium 138 mmol/L (137-145) 07/04/18 17:30 Potassium 4.3 mmol/L (3.6-5.0) 07/04/18 17:30 Chloride 102.3 mmol/L (98-107) 07/04/18 17:30 Carbon Dioxide 26 mmol/L (22-30) 07/04/18 17:30 Anion Gap 14 mmol/L 07/04/18 17:30 BUN 16 mg/dL (9-20) 07/04/18 17:30 Creatinine 0.9 mg/dL (0.8-1.5) 07/04/18 17:30 Estimated GFR > 60 ml/min 07/04/18 17:30 BUN/Creatinine Ratio 18 % 07/04/18 17:30 Glucose 109 mg/dL (75-100) H 07/04/18 17:30 Hemoglobin A1c 6.0 % (4-6) 07/05/18 02:00 Lactic Acid 1.50 mmol/L (0.7-2.0) 07/04/18 20:20 Calcium 9.0 mg/dL (8.4-10.2) 07/04/18 17:30 Magnesium 1.90 mg/dL (1.7-2.3) 07/04/18 18:17 Influenza A (Rapid) Negative (Negative) 07/06/18 07:25 Influenza B (Rapid) Negative (Negative) 07/06/18 07:25
--- NOTE | 2018-07-06 11:52 | Progress Note ---
Assessment and Plan 83 y/o male with chronic respiratory failure admitted with COPD exacerbation. 1. Consider dropping to 40q8 today vs Prednisone 60 daily and discharging on prolonged taper 60x4, 40x4, 20x4, 10x4 2. Abx for 5 days only 3. Continue BID pulmicort and brovana for now. Not on any long acting meds as an outpatient. Would not discharge on any. Patient can continue PRN rescue inhaler and follow up with Jamil as an outpatient. No objection to discharge today, will defer to IMS and their comfort level Subjective Date of service: 07/06/18 Interval history: Patient weaned to room air. Good sats. Objective Vital Signs - 12hr 07/06/18 07/06/18 07/06/18 02:54 07:08 07:09 Temperature 97.8 F 97.6 F Pulse Rate 84 94 H 94 H Pulse Rate [ Anterior Bilateral Throughout] Pulse Rate [ From Monitor] Respiratory 20 18 Rate Respiratory Rate [Anterior Bilateral Throughout] Blood Pressure 158/76 174/90 Blood Pressure 174/90 [Left] O2 Sat by Pulse 97 94 Oximetry 07/06/18 07/06/18 07/06/18 08:00 08:21 08:22 Temperature Pulse Rate Pulse Rate [ 94 H 94 H Anterior Bilateral Throughout] Pulse Rate [ From Monitor] Respiratory Rate Respiratory 17 18 Rate [Anterior Bilateral Throughout] Blood Pressure Blood Pressure [Left] O2 Sat by Pulse 94 Oximetry 07/06/18 07/06/18 09:21 10:00 Temperature Pulse Rate 77 Pulse Rate [ Anterior Bilateral Throughout] Pulse Rate [ 77 From Monitor] Respiratory 18 Rate Respiratory Rate [Anterior Bilateral Throughout] Blood Pressure 141/75 Blood Pressure [Left] O2 Sat by Pulse 94 Oximetry Constitutional: no acute distress, alert Eyes: non-icteric ENT: oropharynx moist Neck: supple, no JVD Effort: normal Ascultation: Bilateral: diminished breath sounds Percussion: Bilateral: not dull Cardiovascular: regular rate and rhythm Gastrointestinal: normoactive bowel sounds, soft, non-tender Extremities: no cyanosis, no edema, pink and warm, pulses normal Neurologic: normal mental status, non-focal exam CBC and BMP: 07/06/18 08:03 07/04/18 17:30 ABG, PT/INR, D-dimer: PT/INR, D-dimer PT 12.4 Sec. (12.2-14.9) 07/04/18 18:17 INR 0.89 (0.87-1.13) 07/04/18 18:17 Abnormal lab findings: Abnormal Labs 07/04/18 07/04/18 07/06/18 17:30 17:30 08:03 WBC 17.7 H 16.9 H Lymph % (Auto) 8.5 L [place] % (Auto) 7.6 H [place] # 1.3 H Seg Neutrophils % 82.4 H Seg Neuts % (Manual) 97.0 H Lymphocytes % (Manual) 3.0 L Seg Neutrophils # 14.6 H Seg Neutrophils # Man 16.4 H Lymphocytes # (Manual) 0.5 L Glucose 109 H
[2018-07-06] MEDS: SINGULAIR PO SCH (17:14)
[2018-07-07] MEDS: SOLU-Medrol IV SCH (05:19)
[2018-07-07] MEDS: LOPRESSOR PO SCH ×2 (09:05→17:25)
[2018-07-07] MEDS: PULMICORT IH SCH ×2 (09:05→21:31)
[2018-07-07] MEDS: BROVANA NEBU IH SCH ×2 (09:05→21:31)
[2018-07-07] MEDS: PLAVIX PO SCH (09:15)
[2018-07-07] MEDS: LEVAQUIN 750MG/150ML 750 MG/150 ML BAG IV SCH (09:15)
[2018-07-07] MEDS: DUONEB *Not for PRN Use IH SCH ×3 (09:15→21:31)
[2018-07-07] MEDS: NEURONTIN PO SCH ×2 (09:15→22:46)
[2018-07-07] MEDS: CATAPRES PO SCH ×2 (09:16→22:46)
[2018-07-07] MEDS: PEPCID PO SCH ×2 (09:16→22:46)
[2018-07-07] MEDS: MUCINEX ER PO SCH ×2 (09:16→22:46)
[2018-07-07] MEDS: APRESOLINE PO SCH ×2 (09:16→22:46)
[2018-07-07] MEDS: FLOMAX PO SCH (09:16)
[2018-07-07] MEDS: SODIUM CHLORIDE FLUSH SYRINGE 10 ML IV SCH ×2 (09:17→22:46)
[2018-07-07] MEDS: DELTASONE PO SCH (10:44)
[2018-07-07] MEDS: SENOKOT PO SCH (11:56)
--- NOTE | 2018-07-07 14:12 | Progress Note ---
Assessment and Plan Chronic respiratory failure COPD exacerbation Rec: Continue nebs Continue O2 support. Needs O2 assessment , prior to DH Still wheezing but may switch to PO Prednisone - 40 mg qd in next 24 hr. , if no BS issues. Monitor Complete b7 days Levaquin DVT prophylaxis Subjective Date of service: 07/07/18 Principal diagnosis: chronic respiratory failure , COPD exacerbation Interval history: Son translated: no event overnight. Some cough and wheezing this morning. Overall, slowly improving. Objective Vital Signs - 12hr 07/07/18 07/07/18 07/07/18 02:33 07:41 08:45 Temperature 98.6 F 98.0 F Pulse Rate 81 76 Pulse Rate [ Anterior Bilateral Throughout] Respiratory 18 20 20 Rate Respiratory Rate [Anterior Bilateral Throughout] Blood Pressure 128/66 158/81 O2 Sat by Pulse 95 96 97 Oximetry 07/07/18 07/07/18 07/07/18 09:04 09:05 09:08 Temperature Pulse Rate 76 Pulse Rate [ 94 H Anterior Bilateral Throughout] Respiratory Rate Respiratory 18 Rate [Anterior Bilateral Throughout] Blood Pressure 158/81 O2 Sat by Pulse 96 96 Oximetry 07/07/18 09:16 Temperature Pulse Rate 76 Pulse Rate [ 94 H Anterior Bilateral Throughout] Respiratory Rate Respiratory 18 Rate [Anterior Bilateral Throughout] Blood Pressure 158/81 O2 Sat by Pulse Oximetry Constitutional: no acute distress, alert Eyes: non-icteric ENT: oropharynx moist Neck: supple, no JVD Effort: normal Ascultation: Bilateral: diminished breath sounds, wheezes Percussion: Bilateral: not dull Cardiovascular: regular rate and rhythm Gastrointestinal: normoactive bowel sounds, soft, non-tender Extremities: no cyanosis, no edema, pink and warm, pulses normal Neurologic: normal mental status, non-focal exam CBC and BMP: 07/06/18 08:03 07/04/18 17:30 ABG, PT/INR, D-dimer: PT/INR, D-dimer PT 12.4 Sec. (12.2-14.9) 07/04/18 18:17 INR 0.89 (0.87-1.13) 07/04/18 18:17 Abnormal lab findings: Abnormal Labs 07/04/18 07/04/18 07/06/18 17:30 17:30 08:03 WBC 17.7 H 16.9 H Lymph % (Auto) 8.5 L [place] % (Auto) 7.6 H [place] # 1.3 H Seg Neutrophils % 82.4 H Seg Neuts % (Manual) 97.0 H Lymphocytes % (Manual) 3.0 L Seg Neutrophils # 14.6 H Seg Neutrophils # Man 16.4 H Lymphocytes # (Manual) 0.5 L Glucose 109 H Chest x-ray: report reviewed, image reviewed
--- NOTE | 2018-07-07 15:49 | Progress Note ---
Assessment and Plan Assessment and plan: Advanced COPD with acute exer wean down to oral steroids continue supplemental O2 pulm on board Acute on chronic hypoxic resp failure continue mgt Physical deconditioning PT eval fall precautions at all times Leukocytosis steroid induced continue abx monitor Mixed Hyperlipidemia continue statins Full code status Disposition d/c planning about 1-2 days if stable enough Disposition Plan: d/c planning about 1-2 days if stable enough Total Time Spent with Patient (Minutes): more than 35 mins History Interval history: HPI from ER records. Past medical history: Asthma, hypertension, carotid artery disease, COPD, not currently on home oxygen this is an 83-year-old gentleman who presents to the emergency room with a complaint of painless cough, wheezing, shortness of breath, mucous production. Symptoms have been going on for the past few days, they're constant, worse with physical exertion, and decreased with rest. Initially found to be hypoxic, treated with albuterol, Atrovent, steroids, this improved symptoms. There is no posterior leg pain, no leg swelling, no recent surgeries, no recent hospitalizations, and family endorses no DVT or pulmonary embolus risk factors. Brief Hospital course: Pt was admitted to the hospital medicine, managed with IV Abx,IV steroids, seen in consultation by the Pulm specialist, reccs and inputs greatly appreciated. Subjective: Pt seen and exam by bedside, Pt non Serbian speaking. Called and spoke to son Mr Gonzales [phone], updated him on pt's condition and treatment. Son informed me that pt has home O2 but only use it when he is tired and SOB. Hospitalist Physical - Constitutional Vitals: Temp Pulse Resp BP Pulse Ox 98.5 F 81 18 119/60 97 07/07/18 13:38 07/07/18 14:36 07/07/18 14:36 07/07/18 13:38 07/07/18 13:38 General appearance: Present: no acute distress, well-nourished, other (ELDERLY MALE) - EENT Eyes: Present: PERRL, EOM intact ENT: hearing intact, clear oral mucosa - Neck Neck: Present: supple, normal ROM - Respiratory Respiratory: bilateral: diminished, rhonchi, wheezing - Extremities Extremities: pulses intact, normal temperature, normal color - Abdominal General gastrointestinal: soft, non-tender, non-distended, normal bowel sounds - Integumentary Integumentary: Present: clear, warm, dry - Psychiatric Psychiatric: appropriate mood/affect, intact judgment & insight - Neurologic Neurologic: CNII-XII intact, moves all extremities - Allied Health Allied health notes reviewed: nursing, RT, social work, case management Results - Labs CBC & Chem 7: 07/06/18 08:03 07/04/18 17:30 Labs: Laboratory Last Values WBC 16.9 K/mm3 (4.5-11.0) H 07/06/18 08:03 RBC 4.41 M/mm3 (3.65-5.03) 07/06/18 08:03 Hgb 13.3 gm/dl (11.8-15.2) 07/06/18 08:03 Hct 40.6 % (35.5-45.6) 07/06/18 08:03 MCV 92 fl (84-94) 07/06/18 08:03 MCH 30 pg (28-32) 07/06/18 08:03 MCHC 33 % (32-34) 07/06/18 08:03 RDW 14.7 % (13.2-15.2) 07/06/18 08:03 Plt Count 288 K/mm3 (140-440) 07/06/18 08:03 Lymph % (Auto) 8.5 % (13.4-35.0) L 07/04/18 17:30 [place] % (Auto) 7.6 % (0.0-7.3) H 07/04/18 17:30 Eos % (Auto) 0.9 % (0.0-4.3) 07/04/18 17:30 Baso % (Auto) 0.6 % (0.0-1.8) 07/04/18 17:30 Lymph # 1.5 K/mm3 (1.2-5.4) 07/04/18 17:30 [place] # 1.3 K/mm3 (0.0-0.8) H 07/04/18 17:30 Eos # 0.2 K/mm3 (0.0-0.4) 07/04/18 17:30 Baso # 0.1 K/mm3 (0.0-0.1) 07/04/18 17:30 Add Manual Diff Complete 07/06/18 08:03 Total Counted 100 07/06/18 08:03 Seg Neutrophils % Therapy Administrative Assistant 07/06/18 08:03 Seg Neuts % (Manual) 97.0 % (40.0-70.0) H 07/06/18 08:03 Band Neutrophils % 0 % 07/06/18 08:03 Lymphocytes % (Manual) 3.0 % (13.4-35.0) L 07/06/18 08:03 Reactive Lymphs % (Man) 0 % 07/06/18 08:03 Monocytes % (Manual) 0 % (0.0-7.3) 07/06/18 08:03 Eosinophils % (Manual) 0 % (0.0-4.3) 07/06/18 08:03 Basophils % (Manual) 0 % (0.0-1.8) 07/06/18 08:03 Metamyelocytes % 0 % 07/06/18 08:03 Myelocytes % 0 % 07/06/18 08:03 Promyelocytes % 0 % 07/06/18 08:03 Blast Cells % 0 % 07/06/18 08:03 Nucleated RBC % Not Reportable 07/06/18 08:03 Seg Neutrophils # 14.6 K/mm3 (1.8-7.7) H 07/04/18 17:30 Seg Neutrophils # Man 16.4 K/mm3 (1.8-7.7) H 07/06/18 08:03 Band Neutrophils # 0.0 K/mm3 07/06/18 08:03 Lymphocytes # (Manual) 0.5 K/mm3 (1.2-5.4) L 07/06/18 08:03 Abs React Lymphs (Man) 0.0 K/mm3 07/06/18 08:03 Monocytes # (Manual) 0.0 K/mm3 (0.0-0.8) 07/06/18 08:03 Eosinophils # (Manual) 0.0 K/mm3 (0.0-0.4) 07/06/18 08:03 Basophils # (Manual) 0.0 K/mm3 (0.0-0.1) 07/06/18 08:03 Metamyelocytes # 0.0 K/mm3 07/06/18 08:03 Myelocytes # 0.0 K/mm3 07/06/18 08:03 Promyelocytes # 0.0 K/mm3 07/06/18 08:03 Blast Cells # 0.0 K/mm3 07/06/18 08:03 WBC Morphology Not Reportable 07/06/18 08:03 Hypersegmented Neuts Not Reportable 07/06/18 08:03 Hyposegmented Neuts Not Reportable 07/06/18 08:03 Hypogranular Neuts Not Reportable 07/06/18 08:03 Smudge Cells Not Reportable 07/06/18 08:03 Toxic Granulation Not Reportable 07/06/18 08:03 Toxic Vacuolation Not Reportable 07/06/18 08:03 Dohle Bodies Not Reportable 07/06/18 08:03 Pelger-Huet Anomaly Not Reportable 07/06/18 08:03 Liang Rods Not Reportable 07/06/18 08:03 Platelet Estimate Consistent w auto 07/06/18 08:03 Clumped Platelets Not Reportable 07/06/18 08:03 Plt Clumps, EDTA Not Reportable 07/06/18 08:03 Large Platelets Not Reportable 07/06/18 08:03 Giant Platelets Not Reportable 07/06/18 08:03 Platelet Satelliting Not Reportable 07/06/18 08:03 Plt Morphology Comment Not Reportable 07/06/18 08:03 RBC Morphology Not Reportable 07/06/18 08:03 Dimorphic RBCs Not Reportable 07/06/18 08:03 Polychromasia Not Reportable 07/06/18 08:03 Hypochromasia Not Reportable 07/06/18 08:03 Poikilocytosis Not Reportable 07/06/18 08:03 Anisocytosis 1+ 07/06/18 08:03 Microcytosis Not Reportable 07/06/18 08:03 Macrocytosis Not Reportable 07/06/18 08:03 Spherocytes Not Reportable 07/06/18 08:03 Pappenheimer Bodies Not Reportable 07/06/18 08:03 Sickle Cells Not Reportable 07/06/18 08:03 Target Cells Not Reportable 07/06/18 08:03 Tear Drop Cells Not Reportable 07/06/18 08:03 Ovalocytes Not Reportable 07/06/18 08:03 Helmet Cells Not Reportable 07/06/18 08:03 Miranda-[place]ull Bodies Not Reportable 07/06/18 08:03 [place] Rings Not Reportable 07/06/18 08:03 Deep Cells Not Reportable 07/06/18 08:03 Bite Cells Not Reportable 07/06/18 08:03 Crenated Cell Not Reportable 07/06/18 08:03 Elliptocytes Not Reportable 07/06/18 08:03 Acanthocytes (Spur) Not Reportable 07/06/18 08:03 Rouleaux Not Reportable 07/06/18 08:03 Hemoglobin C Crystals Not Reportable 07/06/18 08:03 Schistocytes Not Reportable 07/06/18 08:03 Malaria parasites Not Reportable 07/06/18 08:03 [place]ad Bodies Not Reportable 07/06/18 08:03 Hem Pathologist Commnt No 07/06/18 08:03 PT 12.4 Sec. (12.2-14.9) 07/04/18 18:17 INR 0.89 (0.87-1.13) 07/04/18 18:17 Sodium 138 mmol/L (137-145) 07/04/18 17:30 Potassium 4.3 mmol/L (3.6-5.0) 07/04/18 17:30 Chloride 102.3 mmol/L (98-107) 07/04/18 17:30 Carbon Dioxide 26 mmol/L (22-30) 07/04/18 17:30 Anion Gap 14 mmol/L 07/04/18 17:30 BUN 16 mg/dL (9-20) 07/04/18 17:30 Creatinine 0.9 mg/dL (0.8-1.5) 07/04/18 17:30 Estimated GFR > 60 ml/min 07/04/18 17:30 BUN/Creatinine Ratio 18 % 07/04/18 17:30 Glucose 109 mg/dL (75-100) H 07/04/18 17:30 Hemoglobin A1c 6.0 % (4-6) 07/05/18 02:00 Lactic Acid 1.50 mmol/L (0.7-2.0) 07/04/18 20:20 Calcium 9.0 mg/dL (8.4-10.2) 07/04/18 17:30 Magnesium 1.90 mg/dL (1.7-2.3) 07/04/18 18:17 Influenza A (Rapid) Negative (Negative) 07/06/18 07:25 Influenza B (Rapid) Negative (Negative) 07/06/18 07:25 - Imaging and Cardiology Chest x-ray: report reviewed
[2018-07-07] MEDS: SINGULAIR PO SCH (18:22)
[2018-07-08] MEDS: SENOKOT PO SCH ×2 (00:15→12:34)
[2018-07-08 01:17] LABS: Hematocrit 36.2 % (35.5-45.6); Hemoglobin 12.5 gm/dl (11.8-15.2); Mean Corpuscular HGB Conc 35 % (32-34); Mean Corpuscular Volume 96 fl (84-94); Platelet Count 265 K/mm3 (140-440); Red Blood Count 3.79 M/mm3 (3.65-5.03); Red Cell Distribution Width 14.6 % (13.2-15.2)
[2018-07-08 01:34] LABS: BUN/Creatinine Ratio 29; Blood Urea Nitrogen 32 mg/dL (9-20); Calcium 7.8 mg/dL (8.4-10.2); Hemolysis Index 15
[2018-07-08] MEDS: PULMICORT IH SCH ×2 (08:46→20:17)
[2018-07-08] MEDS: BROVANA NEBU IH SCH ×2 (08:48→20:17)
[2018-07-08] MEDS: DUONEB *Not for PRN Use IH SCH ×3 (08:50→20:17)
[2018-07-08] MEDS: LOPRESSOR PO SCH ×2 (08:53→17:14)
[2018-07-08] MEDS: PEPCID PO SCH ×3 (08:55→21:57)
[2018-07-08] MEDS: NEURONTIN PO SCH ×3 (08:55→21:57)
[2018-07-08] MEDS: SODIUM CHLORIDE FLUSH SYRINGE 10 ML IV SCH ×3 (08:55→21:59)
[2018-07-08] MEDS: LEVAQUIN PO SCH ×2 (08:55→10:00)
[2018-07-08] MEDS: APRESOLINE PO SCH ×3 (08:56→21:58)
[2018-07-08] MEDS: MUCINEX ER PO SCH ×3 (08:56→21:57)
[2018-07-08] MEDS: CATAPRES PO SCH ×3 (08:56→21:58)
[2018-07-08] MEDS: DELTASONE PO SCH ×2 (08:57→09:59)
[2018-07-08] MEDS: FLOMAX PO SCH ×2 (08:57→10:00)
[2018-07-08] MEDS: PLAVIX PO SCH ×2 (08:58→10:01)
--- NOTE | 2018-07-08 13:41 | Progress Note ---
Assessment and Plan Chronic respiratory failure COPD exacerbation Recommendations Continue O2 support. Needs O2 assessment , prior to DH Still wheezing, continue nebulizer therapy every 4 hours Complete antibiotics DVT prophylaxis Subjective Date of service: 07/08/18 Principal diagnosis: chronic respiratory failure , COPD exacerbation Interval history: No events overnight. Still some wheezing noted this morning Objective Vital Signs - 12hr 07/08/18 07/08/18 07/08/18 03:13 07:38 08:48 Temperature 97.3 F L 98.4 F Pulse Rate 90 81 Pulse Rate [ 100 H Anterior Bilateral Throughout] Respiratory 18 20 Rate Respiratory 20 Rate [Anterior Bilateral Throughout] Blood Pressure 154/89 184/91 O2 Sat by Pulse 96 96 97 Oximetry 07/08/18 07/08/18 07/08/18 08:53 08:56 08:58 Temperature Pulse Rate 81 81 Pulse Rate [ 96 H Anterior Bilateral Throughout] Respiratory Rate Respiratory 20 Rate [Anterior Bilateral Throughout] Blood Pressure 184/91 184/91 O2 Sat by Pulse Oximetry Constitutional: no acute distress, alert Eyes: non-icteric ENT: oropharynx moist Neck: supple, no JVD Effort: normal Ascultation: Bilateral: wheezes Percussion: Bilateral: not dull Cardiovascular: regular rate and rhythm Gastrointestinal: normoactive bowel sounds, soft, non-tender Extremities: no cyanosis, no edema, pink and warm, pulses normal Neurologic: normal mental status, non-focal exam CBC and BMP: 07/08/18 00:46 07/08/18 00:46 ABG, PT/INR, D-dimer: PT/INR, D-dimer PT 12.4 Sec. (12.2-14.9) 07/04/18 18:17 INR 0.89 (0.87-1.13) 07/04/18 18:17 Abnormal lab findings: Abnormal Labs 07/04/18 07/04/18 07/06/18 17:30 17:30 08:03 WBC 17.7 H 16.9 H MCV MCH MCHC Lymph % (Auto) 8.5 L [place] % (Auto) 7.6 H [place] # 1.3 H Seg Neutrophils % 82.4 H Seg Neuts % (Manual) 97.0 H Lymphocytes % (Manual) 3.0 L Seg Neutrophils # 14.6 H Seg Neutrophils # Man 16.4 H Lymphocytes # (Manual) 0.5 L Sodium BUN Glucose 109 H Calcium 07/08/18 07/08/18 00:46 00:46 WBC MCV 96 H MCH 33 H MCHC 35 H Lymph % (Auto) [place] % (Auto) [place] # Seg Neutrophils % Seg Neuts % (Manual) Lymphocytes % (Manual) Seg Neutrophils # Seg Neutrophils # Man Lymphocytes # (Manual) Sodium 135 L BUN 32 H Glucose 134 H Calcium 7.8 L
--- NOTE | 2018-07-08 15:40 | Progress Note ---
Assessment and Plan Advanced COPD with acute exer wean down to oral steroids continue supplemental O2 pulm on board Acute on chronic hypoxic resp failure continue mgt Physical deconditioning PT eval fall precautions at all times Leukocytosis steroid induced continue abx monitor Mixed Hyperlipidemia continue statins Full code status Disposition Disposition Plan: d/c on completion of antibiotics. Total Time Spent with Patient (Minutes): more than 40 mins Subjective Date of service: 07/08/18 Principal diagnosis: chronic respiratory failure , COPD exacerbation Interval history: Lying quietly in bed. No obvious distress. Remains afebrile. Patient's son by the bedside. Objective - Exam Narrative Exam: Constitutional: Well-nourished well-developed. In no distress Head: Normocephalic atraumatic Eyes: Pupils are equal round and reactive to light Nose: No enlarged turbinates, no septal deviation. Mouth: Moist mucous membranes. Neck: Supple no thyromegaly. No bruit. No JVD Heart: Regular rate and rhythm, S1-S2 normal. No rubs murmurs or gallop Lungs: Decreased breath sounds bilaterally bilaterally. no rales or rhonchi Abdomen: Soft, nontender. Bowel sound are present. Extremities: No edema, no cyanosis, no clubbing. Neuro: Alert oriented Oriented x3. No focal sensory or motor deficit. Skin: No rashes or hyperpigmented spots Musculoskeletal system: No joint pain or swelling Hematological: No petechia or subcutanous hemorrhages. Immunological: No multiple septic spots on the skin Lymphatic: No generalized lymphadenopathy Psychiatry: Euthymic. Calm. - Constitutional Vitals: Vital Signs - 12hr 07/08/18 07/08/18 07/08/18 07:38 08:48 08:53 Temperature 98.4 F Pulse Rate 81 81 Pulse Rate [ 100 H Anterior Bilateral Throughout] Respiratory 20 Rate Respiratory 20 Rate [Anterior Bilateral Throughout] Blood Pressure 184/91 184/91 O2 Sat by Pulse 96 97 Oximetry 07/08/18 07/08/18 07/08/18 08:56 08:58 13:55 Temperature Pulse Rate 81 Pulse Rate [ 96 H 71 Anterior Bilateral Throughout] Respiratory Rate Respiratory 20 20 Rate [Anterior Bilateral Throughout] Blood Pressure 184/91 O2 Sat by Pulse Oximetry 07/08/18 14:05 Temperature Pulse Rate Pulse Rate [ 80 Anterior Bilateral Throughout] Respiratory Rate Respiratory 20 Rate [Anterior Bilateral Throughout] Blood Pressure O2 Sat by Pulse Oximetry - Labs CBC & Chem 7: 07/08/18 00:46 07/08/18 00:46 Labs: Abnormal lab results 07/08/18 07/08/18 Range/Units 00:46 00:46 MCV 96 H (84-94) fl MCH 33 H (28-32) pg MCHC 35 H (32-34) % Sodium 135 L (137-145) mmol/L BUN 32 H (9-20) mg/dL Glucose 134 H (75-100) mg/dL Calcium 7.8 L (8.4-10.2) mg/dL
[2018-07-08] MEDS: SINGULAIR PO SCH (17:15)
[2018-07-09] MEDS: SENOKOT PO SCH (00:27)
--- NOTE | 2018-07-09 08:02 | Progress Note ---
Subjective Date of service: 07/09/18 Principal diagnosis: chronic respiratory failure , COPD exacerbation Objective - Constitutional Vitals: Vital Signs - 12hr 07/08/18 07/08/18 07/08/18 20:17 20:19 20:32 Temperature Pulse Rate Pulse Rate [ 68 71 Anterior Bilateral Throughout] Pulse Rate [ Apical] Respiratory Rate Respiratory 16 16 Rate [Anterior Bilateral Throughout] Blood Pressure O2 Sat by Pulse 100 Oximetry 07/08/18 07/08/18 07/09/18 21:58 22:00 03:24 Temperature 97.6 F Pulse Rate 63 68 Pulse Rate [ Anterior Bilateral Throughout] Pulse Rate [ 64 Apical] Respiratory 22 22 Rate Respiratory Rate [Anterior Bilateral Throughout] Blood Pressure 161/72 139/77 O2 Sat by Pulse 95 97 Oximetry - Labs CBC & Chem 7: 07/08/18 00:46 07/08/18 00:46
[2018-07-09] MEDS: DUONEB *Not for PRN Use IH SCH (08:03)
[2018-07-09] MEDS: PULMICORT IH SCH (08:03)
[2018-07-09] MEDS: BROVANA NEBU IH SCH (08:03)
[2018-07-09] MEDS: LOPRESSOR PO SCH (09:00)
[2018-07-09] MEDS: LEVAQUIN PO SCH (10:56)
[2018-07-09] MEDS: FLOMAX PO SCH (10:56)
[2018-07-09] MEDS: PEPCID PO SCH (10:56)
[2018-07-09] MEDS: DELTASONE PO SCH (10:56)
[2018-07-09] MEDS: APRESOLINE PO SCH (10:57)
[2018-07-09] MEDS: NEURONTIN PO SCH (10:57)
[2018-07-09] MEDS: MUCINEX ER PO SCH (10:57)
[2018-07-09] MEDS: PLAVIX PO SCH (10:57)
[2018-07-09] MEDS: CATAPRES PO SCH (10:57)
[2018-07-09 10:58] VITALS: BP 157/68
[2018-07-09] MEDS: SODIUM CHLORIDE FLUSH SYRINGE 10 ML IV SCH (11:02)
--- NOTE | 2018-07-09 11:12 | Discharge Summary ---
Providers - Providers Date of Admission: 07/04/18 18:49 Date of discharge: 07/09/18 Attending physician: JOSUÉ MOORE 07/05/18 01:48 Consult to Physician [CONS] Routine Comment: Consulting Provider: SHIRA JACOBSON Physician Instructions: Reason For Exam: Resp failure 07/07/18 15:49 Physical Therapy Evaluation and Treat [CONS] Routine Comment: Reason For Exam: weakness Primary care physician: PEGGY LLANES MD Hospitalization Reason for admission: acute respiratory failure Condition: Fair Pertinent studies: Chest x-ray showed no acute pulmonary event Procedures: None Hospital course: Patient is A 83-year-old male with past medical history of COPD, he follows with Dr. Lyons presented to the ER with complaints of shortness of breath worse with exertion for the past 2 days preceded by cough for 5 days. Is being admitted for COPD exacerbation and respiratory failure with possibly Underlying sepsis On admission but was, some bronchodilators and IV Solu-Medrol IV Levaquin. Supplemental oxygen. Shortness of breath improved. Leukocytosis improved. Lactic acid level was normal. Dissection was unremarkable for any acute event. Discussed extensively with patient's son. Patient has been discharged today to follow up with primary care physician 3-5 days and to follow-up with a terrazzo worker helper in 1 week. Disposition: TO HOME OR SELFCARE Time spent for discharge: 40 mins - Discharge Diagnoses (1) Acute and chronic respiratory failure ([id number]) Status: Acute (2) COPD with exacerbation Status: Acute (3) SIRS (systemic inflammatory response syndrome) Status: Acute Core Measure Documentation - Palliative Care Palliative Care/ Comfort Measures: Not Applicable - Core Measures Any of the following diagnoses?: none Exam - Physical Exam Narrative exam: Constitutional: Well-nourished well-developed. In no distress Head: Normocephalic atraumatic Eyes: Pupils are equal round and reactive to light Nose: No enlarged turbinates, no septal deviation. Mouth: Moist mucous membranes. Neck: Supple no thyromegaly. No bruit. No JVD Heart: Regular rate and rhythm, S1-S2 normal. No rubs murmurs or gallop Lungs: Decreased breath sounds bilaterally bilaterally. no rales or rhonchi Abdomen: Soft, nontender. Bowel sound are present. Extremities: No edema, no cyanosis, no clubbing. Neuro: Alert oriented Oriented x3. No focal sensory or motor deficit. Skin: No rashes or hyperpigmented spots Musculoskeletal system: No joint pain or swelling Hematological: No petechia or subcutanous hemorrhages. Immunological: No multiple septic spots on the skin Lymphatic: No generalized lymphadenopathy Psychiatry: Euthymic. Calm. - Constitutional Vitals: Temp Pulse Resp BP Pulse Ox 97.6 F 73 18 157/68 97 07/09/18 03:24 07/09/18 10:57 07/09/18 08:19 07/09/18 10:57 07/09/18 08:06 Plan Activity: advance as tolerated, fall precautions Weight Bearing Status: Non-Weight Bearing Diet: regular Follow up with: PEGGY LLANES MD [Primary Care Provider] - 7 Days Prescriptions: guaiFENesin ER [Mucinex ER] 600 mg PO BID #60 tablet levoFLOXacin [Levaquin TAB] 750 mg PO DAILY #3 tablet predniSONE [Deltasone] 40 mg PO QDAY #20 tablet Sennosides Tab [Senokot] 8.6 mg PO Q12H #30 tablet
== END 2018-07-09 12:15 | disposition home or self-care (01) | DRG 189 ==
LOC: ED 16:58 → 2B-ACE 18:49
PROVIDERS: ADMIT Internal Medicine; ATTEND Family Medicine
DX: J96.21 Acute and chronic respiratory failure with hypoxia (principal); J44.1 Chronic obstructive pulmonary disease with (acute) exacerbation; R65.10 Systemic inflammatory response syndrome (SIRS) of non-infectious origin without acute organ dysfunction; I27.20 Pulmonary hypertension, unspecified; K21.9 Gastro-esophageal reflux disease without esophagitis; M19.90 Unspecified osteoarthritis, unspecified site; G43.909 Migraine, unspecified, not intractable, without status migrainosus; K59.00 Constipation, unspecified; I25.10 Atherosclerotic heart disease of native coronary artery without angina pectoris; N40.0 Benign prostatic hyperplasia without lower urinary tract symptoms; I73.9 Peripheral vascular disease, unspecified; E78.2 Mixed hyperlipidemia; D72.829 Elevated white blood cell count, unspecified; T38.0X5A Adverse effect of glucocorticoids and synthetic analogues, initial encounter; Y92.89 Other specified places as the place of occurrence of the external cause; M81.0 Age-related osteoporosis without current pathological fracture; Z95.1 Presence of aortocoronary bypass graft; Z82.49 Family history of ischemic heart disease and other diseases of the circulatory system; Z79.82 Long term (current) use of aspirin; Z87.891 Personal history of nicotine dependence
CPT/HCPCS: 36415; 71045; 80048; 82140; 83036; 83735; 85007; 85025; 85027; 85610; 87040; 87400; 93005; 93010; 94640; 94644; 94760; 96365; 96375; G0378; A9270-GY; J1956; J2920; J2930; J3475; J7030; J7512

== ENCOUNTER 2018-11-11 08:06 | Inpatient (IN) | payer MEDICARE ==
[2018-11-11 09:10] LABS: Basophils # (Auto) 0.1 K/mm3 (0.0-0.1); Basophils % (Auto) 0.9 % (0.0-1.8); Eosinophils # (Auto) 0.8 K/mm3 (0.0-0.4); Eosinophils % (Auto) 8.2 % (0.0-4.3); Hematocrit 33.9 % (35.5-45.6); Hemoglobin 11.4 gm/dl (11.8-15.2); Lymphocytes % (Auto) 20.7 % (13.4-35.0); Mean Corpuscular HGB Conc 34 % (32-34); Mean Corpuscular Volume 90 fl (84-94); Monocytes # (Auto) 0.7 K/mm3 (0.0-0.8); Monocytes % (Auto) 7.1 % (0.0-7.3); Platelet Count 241 K/mm3 (140-440); Red Blood Count 3.75 M/mm3 (3.65-5.03); Red Cell Distribution Width 15.1 % (13.2-15.2)
--- NOTE | 2018-11-11 09:15 | Emergency Department Report ---
ED General Adult HPI - General Chief complaint: GI Bleed Stated complaint: BLOOD IN STOOL Time Seen by Provider: 11/11/18 08:50 Source: family, interpreter for the deaf Mode of arrival: Ambulatory Limitations: Language Barrier - History of Present Illness Initial comments: A 3-year-old female who presents to the emergency department with a history of 6 bouts of hematochezia. The patient does not complain of abdominal pain. She doesn't complain of any breathing difficulty. She states that she has never had this before. Approximately one year ago family states that she had a colonoscopy by a grounds caretaker in [facility]. They do not know the name. They state that there was no abnormal finding reported. The patient is not on oral anticoagulant but she does take Plavix. Previous hospitalization: Reason for admission: acute respiratory failure Condition: Fair Pertinent studies: Chest x-ray showed no acute pulmonary event Procedures: None Hospital course: Patient is A 83-year-old male with past medical history of COPD, he follows with Dr. Lyons presented to the ER with complaints of shortness of breath worse with exertion for the past 2 days preceded by cough for 5 days. Is being admitted for COPD exacerbation and respiratory failure with possibly Underlying sepsis On admission but was, some bronchodilators and IV Solu-Medrol IV Levaquin. Supplemental oxygen. Shortness of breath improved. Leukocytosis improved. Lactic acid level was normal. Dissection was unremarkable for any acute event. Discussed extensively with patient's son. 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 Disposition: TO HOME OR SELFCARE Time spent for discharge: 40 mins - Discharge Diagnoses (1) Acute and chronic respiratory failure ([id number]) Status: Acute (2) COPD with exacerbation Status: Acute (3) SIRS (systemic inflammatory response syndrome) Status: Acute -: Gradual, hour(s) Consistency: intermittent Improves with: none Worsens with: none Associated Symptoms: denies other symptoms - Related Data Home Medications Medication Instructions Recorded Confirmed Last Taken AtorvaSTATin [Lipitor] 20 mg PO QHS 10/14/14 11/11/18 1 Day Ago ~11/10/18 Albuterol Sulfate [Proair 90 mcg IH BID 07/04/18 11/11/18 Unknown Respiclick] Fluticasone/Salmeterol [Advair 1 each IH BID 07/04/18 11/11/18 Unknown 500-50 Diskus] Ipratropium/Albuterol Sulfate 1 spray IH BID 07/04/18 11/11/18 Unknown [Combivent Respimat] cloNIDine [Catapres] 0.2 mg PO BID 07/04/18 11/11/18 Unknown Hydroxyzine HCl 25 mg PO DAILY 11/11/18 11/11/18 Unknown Ibuprofen 600 mg PO TID 11/11/18 11/11/18 Unknown Pentoxifylline 400 mg PO BID 11/11/18 11/11/18 1 Day Ago ~11/10/18 Previous Rx's Medication Instructions Recorded Last Taken Type ALBUTEROL NEB's [Proventil 0.083% 2.5 mg IH Q4HRT PRN nebu 07/09/18 Unknown Rx NEBS] Arformoterol Nebu [Brovana Nebu] 15 mcg IH Q12HRT ml 07/09/18 Unknown Rx Budesonide [Pulmicort Respules] 0.5 mg IH Q12HRT nebu 07/09/18 Unknown Rx Clopidogrel [Plavix] 75 mg PO DAILY tablet 07/09/18 1 Day Ago Rx ~11/10/18 Famotidine [Pepcid] 20 mg PO BID tablet 07/09/18 Unknown Rx Gabapentin [Neurontin] 300 mg PO BID capsule 07/09/18 Unknown Rx Ipratropium/Albuterol Sulfate 1 ampul IH TIDRT ampul.neb 07/09/18 Unknown Rx [DUONEB *Not for PRN Use*] Montelukast [Singulair] 10 mg PO QPM tablet 07/09/18 1 Day Ago Rx ~11/10/18 Tamsulosin [Flomax] 0.4 mg PO DAILY capsule 07/09/18 1 Day Ago Rx ~11/10/18 guaiFENesin ER [Mucinex ER] 600 mg PO BID #60 tablet 07/09/18 Unknown Rx hydrALAZINE [Apresoline TAB] 100 mg PO BID tab 07/09/18 1 Day Ago Rx ~11/10/18 predniSONE [Deltasone] 40 mg PO QDAY #20 tablet 07/09/18 Unknown Rx Allergies Allergy/AdvReac Type Severity Reaction Status Date / Time No Known Allergies Allergy Verified 11/11/18 08:08 ED Review of Systems ROS: Stated complaint: BLOOD IN STOOL Other details as noted in HPI Constitutional: denies: chills, fever Eyes: denies: eye pain, eye discharge, vision change ENT: denies: ear pain, throat pain Respiratory: denies: cough, shortness of breath, wheezing Cardiovascular: denies: chest pain, palpitations Endocrine: no symptoms reported Gastrointestinal: as per HPI, hematochezia. denies: abdominal pain, nausea, diarrhea, constipation, hematemesis Genitourinary: denies: urgency, dysuria Musculoskeletal: denies: back pain, joint swelling, arthralgia Skin: denies: rash, lesions Neurological: denies: headache, weakness, paresthesias Psychiatric: denies: anxiety, depression Hematological/Lymphatic: denies: easy bleeding, easy bruising ED Past Medical Hx - Past Medical History Hx Hypertension: Yes Hx Heart Attack/AMI: No Hx GERD: Yes Hx Liver Disease: No Hx Renal Disease: No Hx Arthritis: Yes Hx Headaches / Migraines: Yes Hx Asthma: No Hx COPD: Yes Hx HIV: No Additional medical history: bladder tumor. elevated cholestrol - Surgical History Hx Open Heart Surgery: Yes ("RING AROUND VALVE",CABG, or tell me that the patient had a valvuloplasty ) Additional Surgical History: eye surgery. mitral valve repair - Social History Smoking Status: Never Smoker Substance Use Type: None - Medications Home Medications: Home Medications Medication Instructions Recorded Confirmed Last Taken Type AtorvaSTATin [Lipitor] 20 mg PO QHS 10/14/14 11/11/18 1 Day Ago History ~11/10/18 Albuterol Sulfate [Proair 90 mcg IH BID 07/04/18 11/11/18 Unknown History Respiclick] Fluticasone/Salmeterol [Advair 1 each IH BID 07/04/18 11/11/18 Unknown History 500-50 Diskus] Ipratropium/Albuterol Sulfate 1 spray IH BID 07/04/18 11/11/18 Unknown History [Combivent Respimat] cloNIDine [Catapres] 0.2 mg PO BID 07/04/18 11/11/18 Unknown History ALBUTEROL NEB's [Proventil 0.083% 2.5 mg IH Q4HRT PRN nebu 07/09/18 11/11/18 Unknown Rx NEBS] Arformoterol Nebu [Brovana Nebu] 15 mcg IH Q12HRT ml 07/09/18 11/11/18 Unknown Rx Budesonide [Pulmicort Respules] 0.5 mg IH Q12HRT nebu 07/09/18 11/11/18 Unknown Rx Clopidogrel [Plavix] 75 mg PO DAILY tablet 07/09/18 11/11/18 1 Day Ago Rx ~11/10/18 Famotidine [Pepcid] 20 mg PO BID tablet 07/09/18 11/11/18 Unknown Rx Gabapentin [Neurontin] 300 mg PO BID capsule 07/09/18 11/11/18 Unknown Rx Ipratropium/Albuterol Sulfate 1 ampul IH TIDRT ampul.neb 07/09/18 11/11/18 Unknown Rx [DUONEB *Not for PRN Use*] Montelukast [Singulair] 10 mg PO QPM tablet 07/09/18 11/11/18 1 Day Ago Rx ~11/10/18 Tamsulosin [Flomax] 0.4 mg PO DAILY capsule 07/09/18 11/11/18 1 Day Ago Rx ~11/10/18 guaiFENesin ER [Mucinex ER] 600 mg PO BID #60 tablet 07/09/18 11/11/18 Unknown Rx hydrALAZINE [Apresoline TAB] 100 mg PO BID tab 07/09/18 11/11/18 1 Day Ago Rx ~11/10/18 predniSONE [Deltasone] 40 mg PO QDAY #20 tablet 07/09/18 11/11/18 Unknown Rx Hydroxyzine HCl 25 mg PO DAILY 11/11/18 11/11/18 Unknown History Ibuprofen 600 mg PO TID 11/11/18 11/11/18 Unknown History Pentoxifylline 400 mg PO BID 11/11/18 11/11/18 1 Day Ago History ~11/10/18 ED Physical Exam - General Limitations: Language Barrier General appearance: alert, in no apparent distress - Head Head exam: Present: atraumatic, normocephalic - Eye Eye exam: Present: normal appearance. Absent: scleral icterus - ENT ENT exam: Present: mucous membranes moist - Neck Neck exam: Present: normal inspection - Respiratory Respiratory exam: Present: normal lung sounds bilaterally. Absent: respiratory distress - Cardiovascular Cardiovascular Exam: Present: regular rate, normal rhythm. Absent: systolic murmur, diastolic murmur, rubs, gallop - GI/Abdominal GI/Abdominal exam: Present: soft, normal bowel sounds. Absent: distended, tenderness, guarding, rebound, rigid - Rectal Rectal exam: Present: deferred - Extremities Exam Extremities exam: Present: normal inspection - Back Exam Back exam: Present: normal inspection - Neurological Exam Neurological exam: Present: alert, oriented X3, CN II-XII intact. Absent: motor sensory deficit - Psychiatric Psychiatric exam: Present: normal affect, normal mood - Skin Skin exam: Present: warm, dry, intact, normal color. Absent: rash ED Course Vital Signs 11/11/18 11/11/18 11/11/18 08:13 09:20 09:21 Temperature 98 F Pulse Rate 109 H 84 81 Respiratory 18 15 18 Rate Blood Pressure 135/76 156/86 Blood Pressure 156/86 [Left] O2 Sat by Pulse 95 98 98 Oximetry 11/11/18 11/11/18 11/11/18 09:30 09:46 10:22 Temperature Pulse Rate 81 79 80 Respiratory 19 16 18 Rate Blood Pressure 156/86 156/86 156/86 Blood Pressure [Left] O2 Sat by Pulse 96 94 Oximetry 11/11/18 10:30 Temperature Pulse Rate 80 Respiratory 12 Rate Blood Pressure 149/79 Blood Pressure [Left] O2 Sat by Pulse 98 Oximetry - Reevaluation(s) Reevaluation #1: Patient remained stable in the emergency department. She was admitted for further care and evaluation by the hospitalist service. 11/11/18 15:11 ED Medical Decision Making - Lab Data Result diagrams: 11/11/18 08:40 11/11/18 08:40 Laboratory Results - last 24 hr 11/11/18 11/11/18 11/11/18 08:40 08:40 08:40 WBC 9.6 RBC 3.75 Hgb 11.4 L Hct 33.9 L MCV 90 MCH 30 MCHC 34 RDW 15.1 Plt Count 241 Lymph % (Auto) 20.7 [place] % (Auto) 7.1 Eos % (Auto) 8.2 H Baso % (Auto) 0.9 Lymph # 2.0 [place] # 0.7 Eos # 0.8 H Baso # 0.1 Seg Neutrophils % 63.1 Seg Neutrophils # 6.1 PT INR APTT Sodium 139 Potassium 4.4 Chloride 101.0 Carbon Dioxide 26 Anion Gap 16 BUN 28 H Creatinine 1.1 Estimated GFR > 60 BUN/Creatinine Ratio 25 Glucose 115 H Calcium 8.4 Total Bilirubin 0.40 Direct Bilirubin < 0.2 Indirect Bilirubin 0.2 AST 14 ALT 15 Alkaline Phosphatase 43 NT-Pro-B Natriuret Pep Total Protein 6.3 Albumin 3.8 L Albumin/Globulin Ratio 1.5 Blood Type Antibody Screen 11/11/18 11/11/18 11/11/18 08:40 08:40 08:40 WBC RBC Hgb Hct MCV MCH MCHC RDW Plt Count Lymph % (Auto) [place] % (Auto) Eos % (Auto) Baso % (Auto) Lymph # [place] # Eos # Baso # Seg Neutrophils % Seg Neutrophils # PT 12.5 INR 0.96 APTT 26.6 Sodium Potassium Chloride Carbon Dioxide Anion Gap BUN Creatinine Estimated GFR BUN/Creatinine Ratio Glucose Calcium Total Bilirubin Direct Bilirubin Indirect Bilirubin AST ALT Alkaline Phosphatase NT-Pro-B Natriuret Pep 290.3 Total Protein Albumin Albumin/Globulin Ratio Blood Type O POSITIVE Antibody Screen Negative Critical care attestation.: If time is entered above; I have spent that time in minutes in the direct care of this critically ill patient, excluding procedure time. ED Disposition Clinical Impression: Hematochezia, GI bleeding, Platelet inhibition due to Plavix, Right bundle branch block, Type 2 diabetes mellitus, Anemia Disposition: - TO HOME OR SELFCARE Condition: Stable
[2018-11-11 09:20] LABS: INR 0.96 (0.87-1.13)
[2018-11-11 09:21] LABS: Partial Thromboplastin Time 26.6 Sec. (24.2-36.6)
[2018-11-11 09:27] LABS: BUN/Creatinine Ratio 25; Blood Urea Nitrogen 28 mg/dL (9-20); Calcium 8.4 mg/dL (8.4-10.2); Hemolysis Index 3
[2018-11-11 09:46] LABS: Alanine Aminotransferase 15 units/L (7-56); Albumin 3.8 g/dL (3.9-5)
[2018-11-11 09:49] LABS: Bilirubin,Direct < 0.2 mg/dL (0-0.2)
--- NOTE | 2018-11-11 09:57 | Emergency Department Report ---
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 He is not actively bleeding at this time. He feels somewhat weak but not short of breath. He's had no prior episodes of this. They think that he had a normal colonoscopy about a year ago with a physician group that [facility]. They cannot recall that physician's name. Colonoscopy was routine and not done for GI bleeding. Patient denies abdominal pain. He is asymptomatic at the time of my encounter. -: Gradual Associated Symptoms: denies other symptoms - Related Data Home Medications Medication Instructions Recorded Confirmed Last Taken AtorvaSTATin [Lipitor] 20 mg PO DAILY 10/14/14 07/04/18 04/12/16 06:00 Albuterol Sulfate [Proair 90 mcg IH BID 07/04/18 07/04/18 Unknown Respiclick] Fluticasone/Salmeterol [Advair 1 each IH BID 07/04/18 07/04/18 Unknown 500-50 Diskus] Ipratropium/Albuterol Sulfate 1 spray IH BID 07/04/18 07/04/18 Unknown [Combivent Respimat] cloNIDine [Catapres] 0.2 mg PO BID 07/04/18 07/04/18 Unknown Previous Rx's Medication Instructions Recorded Last Taken Type ALBUTEROL NEB's [Proventil 0.083% 2.5 mg IH Q4HRT PRN nebu 07/09/18 Unknown Rx NEBS] Arformoterol Nebu [Brovana Nebu] 15 mcg IH Q12HRT ml 07/09/18 Unknown Rx Budesonide [Pulmicort Respules] 0.5 mg IH Q12HRT nebu 07/09/18 Unknown Rx Clopidogrel [Plavix] 75 mg PO DAILY tablet 07/09/18 Unknown Rx Famotidine [Pepcid] 20 mg PO BID tablet 07/09/18 Unknown Rx Gabapentin [Neurontin] 300 mg PO BID capsule 07/09/18 Unknown Rx Ipratropium/Albuterol Sulfate 1 ampul IH TIDRT ampul.neb 07/09/18 Unknown Rx [DUONEB *Not for PRN Use*] Montelukast [Singulair] 10 mg PO QPM tablet 07/09/18 Unknown Rx Sennosides Tab [Senokot] 8.6 mg PO Q12H #30 tablet 07/09/18 Unknown Rx Tamsulosin [Flomax] 0.4 mg PO DAILY capsule 07/09/18 Unknown Rx cloNIDine [Catapres] 0.2 mg PO BID tablet 07/09/18 Unknown Rx guaiFENesin ER [Mucinex ER] 600 mg PO BID #60 tablet 07/09/18 Unknown Rx hydrALAZINE [Apresoline TAB] 100 mg PO BID tab 07/09/18 Unknown Rx levoFLOXacin [Levaquin TAB] 750 mg PO DAILY #3 tablet 07/09/18 Unknown Rx predniSONE [Deltasone] 40 mg PO QDAY #20 tablet 07/09/18 Unknown Rx Allergies Allergy/AdvReac Type Severity Reaction Status Date / Time No Known Allergies Allergy Verified 11/11/18 08:08 ED Review of Systems ROS: Stated complaint: BLOOD IN STOOL Other details as noted in HPI Constitutional: denies: chills, fever Eyes: denies: eye pain, eye discharge, vision change ENT: denies: ear pain, throat pain Respiratory: denies: cough, shortness of breath, wheezing Cardiovascular: denies: chest pain, palpitations Endocrine: no symptoms reported Gastrointestinal: hematochezia (multiple episodes). denies: abdominal pain, nausea, diarrhea Genitourinary: denies: urgency, dysuria Musculoskeletal: denies: back pain, joint swelling, arthralgia Skin: denies: rash, lesions Neurological: denies: headache, weakness, paresthesias Psychiatric: denies: anxiety, depression Hematological/Lymphatic: denies: easy bleeding, easy bruising ED Past Medical Hx - Past Medical History Hx Hypertension: Yes Hx Heart Attack/AMI: No Hx GERD: Yes Hx Liver Disease: No Hx Renal Disease: No Hx Arthritis: Yes Hx Headaches / Migraines: Yes Hx Asthma: No Hx COPD: Yes Hx HIV: No Additional medical history: bladder tumor. elevated cholestrol - Surgical History Hx Open Heart Surgery: Yes ("RING AROUND VALVE",CABG, or tell me that the patient had a valvuloplasty ) Additional Surgical History: eye surgery. mitral valve repair - Social History Smoking Status: Never Smoker Substance Use Type: Prescribed - Medications Home Medications: Home Medications Medication Instructions Recorded Confirmed Last Taken Type AtorvaSTATin [Lipitor] 20 mg PO DAILY 10/14/14 07/04/18 04/12/16 06:00 History Albuterol Sulfate [Proair 90 mcg IH BID 07/04/18 07/04/18 Unknown History Respiclick] Fluticasone/Salmeterol [Advair 1 each IH BID 07/04/18 07/04/18 Unknown History 500-50 Diskus] Ipratropium/Albuterol Sulfate 1 spray IH BID 07/04/18 07/04/18 Unknown History [Combivent Respimat] cloNIDine [Catapres] 0.2 mg PO BID 07/04/18 07/04/18 Unknown History ALBUTEROL NEB's [Proventil 0.083% 2.5 mg IH Q4HRT PRN nebu 07/09/18 Unknown Rx NEBS] Arformoterol Nebu [Brovana Nebu] 15 mcg IH Q12HRT ml 07/09/18 Unknown Rx Budesonide [Pulmicort Respules] 0.5 mg IH Q12HRT nebu 07/09/18 Unknown Rx Clopidogrel [Plavix] 75 mg PO DAILY tablet 07/09/18 Unknown Rx Famotidine [Pepcid] 20 mg PO BID tablet 07/09/18 Unknown Rx Gabapentin [Neurontin] 300 mg PO BID capsule 07/09/18 Unknown Rx Ipratropium/Albuterol Sulfate 1 ampul IH TIDRT ampul.neb 07/09/18 Unknown Rx [DUONEB *Not for PRN Use*] Montelukast [Singulair] 10 mg PO QPM tablet 07/09/18 Unknown Rx Sennosides Tab [Senokot] 8.6 mg PO Q12H #30 tablet 07/09/18 Unknown Rx Tamsulosin [Flomax] 0.4 mg PO DAILY capsule 07/09/18 Unknown Rx cloNIDine [Catapres] 0.2 mg PO BID tablet 07/09/18 Unknown Rx guaiFENesin ER [Mucinex ER] 600 mg PO BID #60 tablet 07/09/18 Unknown Rx hydrALAZINE [Apresoline TAB] 100 mg PO BID tab 07/09/18 Unknown Rx levoFLOXacin [Levaquin TAB] 750 mg PO DAILY #3 tablet 07/09/18 Unknown Rx predniSONE [Deltasone] 40 mg PO QDAY #20 tablet 07/09/18 Unknown Rx ED Physical Exam - General Limitations: Language Barrier General appearance: alert, in no apparent distress - Head Head exam: Present: atraumatic, normocephalic - Eye Eye exam: Present: normal appearance. Absent: scleral icterus - ENT ENT exam: Present: mucous membranes moist - Neck Neck exam: Present: normal inspection - Respiratory Respiratory exam: Present: normal lung sounds bilaterally. Absent: respiratory distress - Cardiovascular Cardiovascular Exam: Present: regular rate, normal rhythm. Absent: systolic m urmur, diastolic murmur, rubs, gallop - GI/Abdominal GI/Abdominal exam: Present: soft, normal bowel sounds. Absent: distended, tenderness, guarding, rebound, rigid - Rectal Rectal exam: Present: deferred, other (no active bleeding) - Extremities Exam Extremities exam: Present: normal inspection - Back Exam Back exam: Present: normal inspection - Neurological Exam Neurological exam: Present: alert, oriented X3, CN II-XII intact. Absent: motor sensory deficit - Psychiatric Psychiatric exam: Present: normal affect, normal mood - Skin Skin exam: Present: warm, dry, intact, normal color. Absent: rash ED Course Vital Signs 11/11/18 11/11/18 08:13 09:21 Temperature 98 F Pulse Rate 109 H 81 Respiratory 18 18 Rate Blood Pressure 135/76 Blood Pressure 156/86 [Left] O2 Sat by Pulse 95 98 Oximetry - Reevaluation(s) Reevaluation #1: 11/11/18 09:57 Patient is on Plavix. He has comorbidities and is 83 years old. I think it would be prudent to admit him to the hospital for serial hemoglobins and consultation as per the discretion of the hospitalist who is Dr. Angeles. ED Medical Decision Making - Lab Data Result diagrams: 11/11/18 08:40 11/11/18 08:40 Laboratory Results - last 24 hr 11/11/18 11/11/18 11/11/18 08:40 08:40 08:40 WBC 9.6 RBC 3.75 Hgb 11.4 L Hct 33.9 L MCV 90 MCH 30 MCHC 34 RDW 15.1 Plt Count 241 Lymph % (Auto) 20.7 Chambers % (Auto) 7.1 Eos % (Auto) 8.2 H Baso % (Auto) 0.9 Lymph # 2.0 Chambers # 0.7 Eos # 0.8 H Baso # 0.1 Seg Neutrophils % 63.1 Seg Neutrophils # 6.1 PT INR APTT Sodium 139 Potassium 4.4 Chloride 101.0 Carbon Dioxide 26 Anion Gap 16 BUN 28 H Creatinine 1.1 Estimated GFR > 60 BUN/Creatinine Ratio 25 Glucose 115 H Calcium 8.4 Total Bilirubin 0.40 Direct Bilirubin < 0.2 Indirect Bilirubin 0.2 AST 14 ALT 15 Alkaline Phosphatase 43 NT-Pro-B Natriuret Pep Total Protein 6.3 Albumin 3.8 L Albumin/Globulin Ratio 1.5 Blood Type 11/11/18 11/11/18 11/11/18 08:40 08:40 08:40 WBC RBC Hgb Hct MCV MCH MCHC RDW Plt Count Lymph % (Auto) Chambers % (Auto) Eos % (Auto) Baso % (Auto) Lymph # Chambers # Eos # Baso # Seg Neutrophils % Seg Neutrophils # PT 12.5 INR 0.96 APTT 26.6 Sodium Potassium Chloride Carbon Dioxide Anion Gap BUN Creatinine Estimated GFR BUN/Creatinine Ratio Glucose Calcium Total Bilirubin Direct Bilirubin Indirect Bilirubin AST ALT Alkaline Phosphatase NT-Pro-B Natriuret Pep 290.3 Total Protein Albumin Albumin/Globulin Ratio Blood Type O POSITIVE - EKG Data -: EKG Interpreted by Nh EKG shows normal: sinus rhythm, axis, intervals, ST-T waves Rate: normal - EKG Data Interpretation: other Critical care attestation.: If time is entered above; I have spent that time in minutes in the direct care of this critically ill patient, excluding procedure time. 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: unspecified retirement insulin use status Diabetes mellitus complication status: without complication Qualified Code(s): E11.9 - Type 2 diabetes mellitus without complications Anemia Qualifiers: Anemia type: iron deficiency Iron deficiency anemia type: unspecified iron deficiency Qualified Code(s): D50.9 - Iron deficiency anemia, unspecified Disposition: DC- TO HOME OR SELFCARE Is pt being admited?: Yes Does the pt Need Aspirin: No Condition: Stable Instructions: Diabetes Mellitus Type 2 in Adults (ED) Referrals: SHEILA MONTGOMERY MD [Primary Care Provider] - 3-5 Days Forms: Accompanied Note Time of Disposition: 10:01
--- NOTE | 2018-11-11 10:42 | XRay Report ---
PROCEDURE: XR CHEST 1V AP TECHNIQUE: Chest radiograph single view. HISTORY: hypertension COMPARISONS: None . FINDINGS: Single frontal view of the chest was acquired. The heart is mildly enlarged. Sternal wires attest to prior sternotomy. There is no evidence of congestive heart failure. IMPRESSION: Cardiomegaly This document is electronically signed by Alexx Olsen MD., November 11 2018 10:40:14 AM ET
--- NOTE | 2018-11-11 16:44 | History and Physical Report ---
History of Present Illness Date of examination: 11/11/18 Date of admission: 11/11/18 10:01 Chief complaint: Lower GI bleed 1 day History of present illness: 83 year old diabetic male with history of cardiomyopathy had 6 bloody bowel movements since earlier last night. He is not actively bleeding at this time. He feels somewhat weak but not short of breath. He's had no prior episodes of this. He had a normal colonoscopy about a year ago with a physician group at [facility]. They cannot recall that physician's name. Colonoscopy was routine and not done for GI bleeding. Patient denies abdominal pain. He is asymptomatic at the time of my encounter. Past Medical History Hypertension: Yes GERD: Yes Arthritis: Yes Headaches / Migraines: Yes COPD: Yes Additional medical history: bladder tumor. elevated cholestrol Surgical History Open Heart Surgery eye surgery. mitral valve repair Social History Smoking Status: Never Smoker Substance Use Type: Prescribed Family History Htn Review of Systems ROS: Stated complaint: BLOOD IN STOOL Other details as noted in HPI Constitutional: denies: chills, fever Eyes: denies: eye pain, eye discharge, vision change ENT: denies: ear pain, throat pain Respiratory: denies: cough, shortness of breath, wheezing Cardiovascular: denies: chest pain, palpitations Endocrine: no symptoms reported Gastrointestinal: hematochezia (multiple episodes). denies: abdominal pain, nausea, diarrhea Genitourinary: denies: urgency, dysuria Musculoskeletal: denies: back pain, joint swelling, arthralgia Skin: denies: rash, lesions Neurological: denies: headache, weakness, paresthesias Psychiatric: denies: anxiety, depression Hematological/Lymphatic: denies: easy bleeding, easy bruising Medications and Allergies Allergies Allergy/AdvReac Type Severity Reaction Status Date / Time No Known Allergies Allergy Verified 11/11/18 08:08 Home Medications Medication Instructions Recorded Confirmed Last Taken Type AtorvaSTATin [Lipitor] 20 mg PO QHS 10/14/14 11/11/18 1 Day Ago History ~11/10/18 Albuterol Sulfate [Proair 90 mcg IH BID 07/04/18 11/11/18 Unknown History Respiclick] Fluticasone/Salmeterol [Advair 1 each IH BID 07/04/18 11/11/18 Unknown History 500-50 Diskus] Ipratropium/Albuterol Sulfate 1 spray IH BID 07/04/18 11/11/18 Unknown History [Combivent Respimat] cloNIDine [Catapres] 0.2 mg PO BID 07/04/18 11/11/18 Unknown History ALBUTEROL NEB's [Proventil 0.083% 2.5 mg IH Q4HRT PRN nebu 07/09/18 11/11/18 Unknown Rx NEBS] Arformoterol Nebu [Brovana Nebu] 15 mcg IH Q12HRT ml 07/09/18 11/11/18 Unknown Rx Budesonide [Pulmicort Respules] 0.5 mg IH Q12HRT nebu 07/09/18 11/11/18 Unknown Rx Clopidogrel [Plavix] 75 mg PO DAILY tablet 07/09/18 11/11/18 1 Day Ago Rx ~11/10/18 Famotidine [Pepcid] 20 mg PO BID tablet 07/09/18 11/11/18 Unknown Rx Gabapentin [Neurontin] 300 mg PO BID capsule 07/09/18 11/11/18 Unknown Rx Ipratropium/Albuterol Sulfate 1 ampul IH TIDRT ampul.neb 07/09/18 11/11/18 Unknown Rx [DUONEB *Not for PRN Use*] Montelukast [Singulair] 10 mg PO QPM tablet 07/09/18 11/11/18 1 Day Ago Rx ~11/10/18 Tamsulosin [Flomax] 0.4 mg PO DAILY capsule 07/09/18 11/11/18 1 Day Ago Rx ~11/10/18 guaiFENesin ER [Mucinex ER] 600 mg PO BID #60 tablet 07/09/18 11/11/18 Unknown Rx hydrALAZINE [Apresoline TAB] 100 mg PO BID tab 07/09/18 11/11/18 1 Day Ago Rx ~11/10/18 predniSONE [Deltasone] 40 mg PO QDAY #20 tablet 07/09/18 11/11/18 Unknown Rx Hydroxyzine HCl 25 mg PO DAILY 11/11/18 11/11/18 Unknown History Ibuprofen 600 mg PO TID 11/11/18 11/11/18 Unknown History Pentoxifylline 400 mg PO BID 11/11/18 11/11/18 1 Day Ago History ~11/10/18 Exam - Constitutional Vitals: Temp Pulse Resp BP Pulse Ox 97.9 F 78 20 185/89 97 11/11/18 13:17 11/11/18 13:17 11/11/18 13:17 11/11/18 13:17 11/11/18 13:17 General appearance: Present: no acute distress, well-nourished - EENT Eyes: Present: PERRL ENT: hearing intact, clear oral mucosa - Neck Neck: Present: supple, normal ROM - Respiratory Respiratory effort: normal Respiratory: bilateral: CTA - Cardiovascular Heart rate: 78 Rhythm: regular Heart Sounds: Present: S1 & S2. Absent: rub, click - Extremities Extremities: no ischemia, pulses intact, pulses symmetrical, No edema Peripheral Pulses: within normal limits - Abdominal General gastrointestinal: Present: soft, non-tender, non-distended, normal bowel sounds Male genitourinary: Present: normal - Rectal Rectal Exam: stool bloody - Integumentary Integumentary: Present: clear, warm, dry - Musculoskeletal Musculoskeletal: gait normal, strength equal bilaterally - Psychiatric Psychiatric: appropriate mood/affect, intact judgment & insight - Neurologic Neurologic: CNII-XII intact, moves all extremities - Allied Health Allied health notes reviewed: nursing, case management Results - Labs CBC & Chem 7: 11/12/18 00:17 11/11/18 08:40 Labs: Laboratory Last Values WBC 9.6 K/mm3 (4.5-11.0) 11/11/18 08:40 RBC 3.75 M/mm3 (3.65-5.03) 11/11/18 08:40 Hgb 11.4 gm/dl (11.8-15.2) L 11/11/18 08:40 Hct 33.9 % (35.5-45.6) L 11/11/18 08:40 MCV 90 fl (84-94) 11/11/18 08:40 MCH 30 pg (28-32) 11/11/18 08:40 MCHC 34 % (32-34) 11/11/18 08:40 RDW 15.1 % (13.2-15.2) 11/11/18 08:40 Plt Count 241 K/mm3 (140-440) 11/11/18 08:40 Lymph % (Auto) 20.7 % (13.4-35.0) 11/11/18 08:40 [place] % (Auto) 7.1 % (0.0-7.3) 11/11/18 08:40 Eos % (Auto) 8.2 % (0.0-4.3) H 11/11/18 08:40 Baso % (Auto) 0.9 % (0.0-1.8) 11/11/18 08:40 Lymph # 2.0 K/mm3 (1.2-5.4) 11/11/18 08:40 [place] # 0.7 K/mm3 (0.0-0.8) 11/11/18 08:40 Eos # 0.8 K/mm3 (0.0-0.4) H 11/11/18 08:40 Baso # 0.1 K/mm3 (0.0-0.1) 11/11/18 08:40 Seg Neutrophils % 63.1 % (40.0-70.0) 11/11/18 08:40 Seg Neutrophils # 6.1 K/mm3 (1.8-7.7) 11/11/18 08:40 PT 12.5 Sec. (12.2-14.9) 11/11/18 08:40 INR 0.96 (0.87-1.13) 11/11/18 08:40 APTT 26.6 Sec. (24.2-36.6) 11/11/18 08:40 Sodium 139 mmol/L (137-145) 11/11/18 08:40 Potassium 4.4 mmol/L (3.6-5.0) 11/11/18 08:40 Chloride 101.0 mmol/L (98-107) 11/11/18 08:40 Carbon Dioxide 26 mmol/L (22-30) 11/11/18 08:40 16 mmol/L 11/11/18 08:40 BUN 28 mg/dL (9-20) H 11/11/18 08:40 1.1 mg/dL (0.8-1.5) 11/11/18 08:40 Estimated GFR > 60 ml/min 11/11/18 08:40 25 % 11/11/18 08:40 Glucose 115 mg/dL (75-100) H 11/11/18 08:40 Calcium 8.4 mg/dL (8.4-10.2) 11/11/18 08:40 0.40 mg/dL (0.1-1.2) 11/11/18 08:40 < 0.2 mg/dL (0-0.2) 11/11/18 08:40 0.2 mg/dL 11/11/18 08:40 AST 14 units/L (5-40) 11/11/18 08:40 ALT 15 units/L (7-56) 11/11/18 08:40 43 units/L (35-129) 11/11/18 08:40 NT-Pro-B Natriuret Pep 290.3 pg/mL (0-900) 11/11/18 08:40 6.3 g/dL (6.3-8.2) 11/11/18 08:40 3.8 g/dL (3.9-5) L 11/11/18 08:40 1.5 % 11/11/18 08:40 Blood Type O POSITIVE 11/11/18 08:40 Antibody Screen Negative 11/11/18 08:40 Short CBC 11/11/18 11/11/18 11/12/18 Range/Units 08:40 17:20 00:17 WBC 9.6 (4.5-11.0) K/mm3 Hgb 11.4 L 10.6 L 8.9 L (11.8-15.2) gm/dl Hct 33.9 L 30.6 L 25.7 L (35.5-45.6) % Plt Count 241 (140-440) K/mm3 BMP 11/11/18 08:40 Sodium 139 Potassium 4.4 Chloride 101.0 Carbon Dioxide 26 BUN 28 H Creatinine 1.1 Glucose 115 H Calcium 8.4 Liver Function 11/11/18 Range/Units 08:40 Total Bilirubin 0.40 (0.1-1.2) mg/dL Direct Bilirubin < 0.2 (0-0.2) mg/dL AST 14 (5-40) units/L ALT 15 (7-56) units/L Alkaline Phosphatase 43 (35-129) units/L Albumin 3.8 L (3.9-5) g/dL - Imaging and Cardiology EKG: report reviewed (NSR RBBB 94/min) Chest x-ray: report reviewed (Cardiomegaly) Assessment and Plan Advance Directives: Yes (full code) Plan of care discussed with patient/family: Yes - Patient Problems (1) Lower GI bleed Current Visit: Yes Status: Acute Plan to address problem: Monitor H/h Transfuse if necessary GI consult for possible Colonoscopy IV protonix (2) Right bundle branch block Current Visit: Yes Status: Chronic (3) Asthma Current Visit: Yes Status: Chronic Qualifiers: Asthma severity: unspecified severity Plan to address problem: Cont Bronchodilators and Montelukast (4) CAD (coronary artery disease) Current Visit: Yes Status: Chronic Qualifiers: Coronary Disease-Associated Artery/Lesion type: [place] artery [place] vs. transplanted heart: [place] heart Plan to address problem: Hold Plavix for now (5) GERD (gastroesophageal reflux disease) Current Visit: Yes Status: Chronic Qualifiers: Esophagitis presence: with esophagitis Qualified Code(s): K21.0 - Gastro- esophageal reflux disease with esophagitis Plan to address problem: OnIV protonix for now (6) Hypertension Current Visit: Yes Status: Chronic Qualifiers: Hypertension type: essential hypertension Qualified Code(s): I10 - Essential (primary) hypertension Plan to address problem: Catapres patch for now (7) DVT prophylaxis Current Visit: Yes Status: Acute Plan to address problem: On SCD's
[2018-11-11] MEDS ORDERED: PROVENTIL IH PRN (16:48)
[2018-11-11] MEDS ORDERED: ZOFRAN IV PRN (16:52)
[2018-11-11] MEDS ORDERED: DILAUDID IV PRN (16:52)
[2018-11-11] MEDS ORDERED: SODIUM CHLORIDE FLUSH SYRINGE 10 ML IV PRN (16:52)
[2018-11-11] MEDS ORDERED: NACL 0.9% 1000 ML 1,000 ML IV SCH (17:00)
[2018-11-11 18:27] LABS: Hematocrit 30.6 % (35.5-45.6); Hemoglobin 10.6 gm/dl (11.8-15.2)
--- NOTE | 2018-11-11 19:12 | Gastroenterology Consultation ---
History of Present Illness - Reason for Consult Consult date: 11/11/18 GI Bleed Requesting physician: SIS VERONICA - History of Present Illness The patient is an 83 yo male with new onset GI bleed in the last 2 days. The hx is per the son, who translates. He was started on daily ibuprofen (600mg BID) about 7 days ago for arthritis. In addition, he takes plavix daily, and possibly ASA (son not sure). He has had mild nausea, but no hematemesis, and no dysphagia, or loss of weight. He has been tolerating liquids (water) all day. He has had about 5-6 bloody BMs today. Of note, he had a colonoscopy in 2017 ([facility]) with diverticulosis, and a small polyp. He has had no upper endoscopy. He has not had a transfusion before. He denies CP or SOB (but does have a hx of COPD and MVRepair). Past History Past Medical History: CAD (Follows with [facility]), COPD, hypertension, hyperlipidemia, other (Diverticulosis) Past Surgical History: Other (MV Repair, procedures) Social history: lives with family. denies: alcohol abuse, prescription drug abuse Medications and Allergies Allergies Allergy/AdvReac Type Severity Reaction Status Date / Time No Known Allergies Allergy Verified 11/11/18 08:08 Home Medications Medication Instructions Recorded Confirmed Last Taken Type AtorvaSTATin [Lipitor] 20 mg PO QHS 10/14/14 11/11/18 1 Day Ago History ~11/10/18 Albuterol Sulfate [Proair 90 mcg IH BID 07/04/18 11/11/18 Unknown History Respiclick] Fluticasone/Salmeterol [Advair 1 each IH BID 07/04/18 11/11/18 Unknown History 500-50 Diskus] Ipratropium/Albuterol Sulfate 1 spray IH BID 07/04/18 11/11/18 Unknown History [Combivent Respimat] cloNIDine [Catapres] 0.2 mg PO BID 07/04/18 11/11/18 Unknown History ALBUTEROL NEB's [Proventil 0.083% 2.5 mg IH Q4HRT PRN nebu 07/09/18 11/11/18 Unknown Rx NEBS] Arformoterol Nebu [Brovana Nebu] 15 mcg IH Q12HRT ml 07/09/18 11/11/18 Unknown Rx Budesonide [Pulmicort Respules] 0.5 mg IH Q12HRT nebu 07/09/18 11/11/18 Unknown Rx Clopidogrel [Plavix] 75 mg PO DAILY tablet 07/09/18 11/11/18 1 Day Ago Rx ~11/10/18 Famotidine [Pepcid] 20 mg PO BID tablet 07/09/18 11/11/18 Unknown Rx Gabapentin [Neurontin] 300 mg PO BID capsule 07/09/18 11/11/18 Unknown Rx Ipratropium/Albuterol Sulfate 1 ampul IH TIDRT ampul.neb 07/09/18 11/11/18 Unknown Rx [DUONEB *Not for PRN Use*] Montelukast [Singulair] 10 mg PO QPM tablet 07/09/18 11/11/18 1 Day Ago Rx ~11/10/18 Tamsulosin [Flomax] 0.4 mg PO DAILY capsule 07/09/18 11/11/18 1 Day Ago Rx ~11/10/18 guaiFENesin ER [Mucinex ER] 600 mg PO BID #60 tablet 07/09/18 11/11/18 Unknown Rx hydrALAZINE [Apresoline TAB] 100 mg PO BID tab 07/09/18 11/11/18 1 Day Ago Rx ~11/10/18 predniSONE [Deltasone] 40 mg PO QDAY #20 tablet 07/09/18 11/11/18 Unknown Rx Hydroxyzine HCl 25 mg PO DAILY 11/11/18 11/11/18 Unknown History Ibuprofen 600 mg PO TID 11/11/18 11/11/18 Unknown History Pentoxifylline 400 mg PO BID 11/11/18 11/11/18 1 Day Ago History ~11/10/18 Active Meds: Active Medications Acetaminophen (Tylenol) 650 mg PO Q4H PRN PRN Reason: Pain MILD(1-3)/Fever >100.5/BRYAN Albuterol (Proventil) 2.5 mg IH Q4HRT PRN PRN Reason: Shortness Of Breath Albuterol/Ipratropium (Duoneb *Not For Prn Use*) 1 ampul IH TIDRT TERESA Arformoterol Tartrate (Brovana Nebu) 15 mcg IH Q12HRT TERESA Budesonide (Pulmicort) 0.5 mg IH Q12HRT TERESA Clonidine HCl (Catapres-Tts Patch) 0.2 mg TD Sa TERESA Hydromorphone HCl (Dilaudid) 0.5 mg IV Q3H PRN PRN Reason: Pain , Severe (7-10) Sodium Chloride (Nacl 0.9% 1000 Ml) 1,000 mls @ 75 mls/hr IV DIRECT TERESA Last Admin: 11/11/18 17:59 Dose: 75 mls/hr Documented by: Multivitamins/Minerals (Theragran-M Tab) 1 each PO QDAY TERESA Ondansetron HCl (Zofran) 4 mg IV Q8H PRN PRN Reason: Nausea And Vomiting Pantoprazole Sodium (Protonix) 40 mg IV BID TERESA Sodium Chloride (Sodium Chloride Flush Syringe 10 Ml) 10 ml IV BID TERESA Sodium Chloride (Sodium Chloride Flush Syringe 10 Ml) 10 ml IV PRN PRN PRN Reason: LINE FLUSH I HAVE REVIEWED AND RECONCILED MEDICATIONS Review of Systems - Review of Systems All systems: negative (as noted in the HPI) Exam - Constitutional Vital Signs: Temp Pulse Resp BP Pulse Ox 97.9 F 78 20 185/89 97 11/11/18 13:17 11/11/18 13:17 11/11/18 13:17 11/11/18 13:17 11/11/18 13:17 General appearance: no acute distress - EENT Eyes: PERRL, EOM intact ENT: hearing intact, clear oral mucosa, no thrush - Neck Neck: supple, normal ROM - Respiratory Respiratory effort: normal Respiratory: bilateral: CTA - Cardiovascular Rhythm: regular Heart Sounds: Present: S1 & S2 Extremities: no ischemia, No edema - Gastrointestinal General gastrointestinal: Present: soft, non-tender, non-distended - Integumentary Integumentary: Present: clear, warm, dry - Neurologic Neurological: alert and oriented x3 - Labs CBC & Chem 7: 11/11/18 17:20 11/11/18 08:40 Lab Results: Laboratory Results - last 24 hr 11/11/18 11/11/18 11/11/18 08:40 08:40 08:40 WBC 9.6 RBC 3.75 Hgb 11.4 L Hct 33.9 L MCV 90 MCH 30 MCHC 34 RDW 15.1 Plt Count 241 Lymph % (Auto) 20.7 [place] % (Auto) 7.1 Eos % (Auto) 8.2 H Baso % (Auto) 0.9 Lymph # 2.0 [place] # 0.7 Eos # 0.8 H Baso # 0.1 Seg Neutrophils % 63.1 Seg Neutrophils # 6.1 PT INR APTT Sodium 139 Potassium 4.4 Chloride 101.0 Carbon Dioxide 26 Anion Gap 16 BUN 28 H Creatinine 1.1 Estimated GFR > 60 BUN/Creatinine Ratio 25 Glucose 115 H Hemoglobin A1c Calcium 8.4 Total Bilirubin 0.40 Direct Bilirubin < 0.2 Indirect Bilirubin 0.2 AST 14 ALT 15 Alkaline Phosphatase 43 NT-Pro-B Natriuret Pep Total Protein 6.3 Albumin 3.8 L Albumin/Globulin Ratio 1.5 Blood Type Antibody Screen 11/11/18 11/11/18 11/11/18 08:40 08:40 08:40 WBC RBC Hgb Hct MCV MCH MCHC RDW Plt Count Lymph % (Auto) [place] % (Auto) Eos % (Auto) Baso % (Auto) Lymph # Delta # Eos # Baso # Seg Neutrophils % Seg Neutrophils # PT 12.5 INR 0.96 APTT 26.6 Sodium Potassium Chloride Carbon Dioxide Anion Gap BUN Creatinine Estimated GFR BUN/Creatinine Ratio Glucose Hemoglobin A1c Calcium Total Bilirubin Direct Bilirubin Indirect Bilirubin AST ALT Alkaline Phosphatase NT-Pro-B Natriuret Pep 290.3 Total Protein Albumin Albumin/Globulin Ratio Blood Type O POSITIVE Antibody Screen Negative 11/11/18 11/11/18 17:20 17:20 WBC RBC Hgb 10.6 L Hct 30.6 L MCV MCH MCHC RDW Plt Count Lymph % (Auto) [place] % (Auto) Eos % (Auto) Baso % (Auto) Lymph # [place] # Eos # Baso # Seg Neutrophils % Seg Neutrophils # PT INR APTT Sodium Potassium Chloride Carbon Dioxide Anion Gap BUN Creatinine Estimated GFR BUN/Creatinine Ratio Glucose Hemoglobin A1c 5.8 Calcium Total Bilirubin Direct Bilirubin Indirect Bilirubin AST ALT Alkaline Phosphatase NT-Pro-B Natriuret Pep Total Protein Albumin Albumin/Globulin Ratio Blood Type Antibody Screen Assessment and Plan - Patient Problems (1) Acute blood loss anemia Current Visit: Yes Status: Acute Plan to address problem: - Colon 2017 (+) tics, and a small polyp. - However, recent high-dose NSAID use and elevated BUN; suspect PUD since not on PPI therapy. - Will continue current protonix. - Patient drinking water today, so will defer EGD to AM if remains stable. OK to have sips of clears tonight since no transfusion, and VSS. - D/C plavix, ibuprofen, and other antiplatelets
[2018-11-11] MEDS: DUONEB *Not for PRN Use IH SCH (21:15)
[2018-11-11] MEDS: PULMICORT IH SCH (21:15)
[2018-11-11] MEDS: BROVANA NEBU IH SCH (21:16)
[2018-11-11] MEDS ORDERED: NON-FORMULARY (Albuterol Sulfate [Proair Respiclick] 90 MCG) IH SCH (22:00)
[2018-11-11] MEDS ORDERED: NON-FORMULARY (Ipratropium/Albuterol Sulfate [Combivent Respimat] 1 SPRAY) IH SCH (22:00)
[2018-11-11] MEDS ORDERED: PROTONIX IV SCH (22:00)
[2018-11-11] MEDS: SODIUM CHLORIDE FLUSH SYRINGE 10 ML IV SCH (22:06)
[2018-11-12 00:32] LABS: Hematocrit 25.7 % (35.5-45.6); Hemoglobin 8.9 gm/dl (11.8-15.2)
[2018-11-12] MEDS ORDERED: WATER FOR IRRIG STERILE IR ONE (08:10)
[2018-11-12] MEDS ORDERED: NACL 0.9% 1000 ML 1,000 ML ONE (08:10)
[2018-11-12] MEDS ORDERED: WATER FOR IRRIG STERILE ONE (08:11)
[2018-11-12 08:12] LABS: Basophils # (Auto) 0.1 K/mm3 (0.0-0.1); Basophils % (Auto) 0.5 % (0.0-1.8); Eosinophils # (Auto) 0.2 K/mm3 (0.0-0.4); Hematocrit 27.1 % (35.5-45.6); Lymphocytes # (Auto) 2.1 K/mm3 (1.2-5.4); Lymphocytes % (Auto) 19.1 % (13.4-35.0); Mean Corpuscular HGB Conc 33 % (32-34); Mean Corpuscular Volume 90 fl (84-94); Monocytes # (Auto) 0.7 K/mm3 (0.0-0.8); Monocytes % (Auto) 6.4 % (0.0-7.3); Platelet Count 212 K/mm3 (140-440); Red Blood Count 3.03 M/mm3 (3.65-5.03); Red Cell Distribution Width 14.9 % (13.2-15.2)
[2018-11-12 08:21] LABS: Hematocrit 25.6 % (35.5-45.6); Hemoglobin 8.6 gm/dl (11.8-15.2)
[2018-11-12 08:37] LABS: Alanine Aminotransferase 14 units/L (7-56); Albumin 3.5 g/dL (3.9-5); BUN/Creatinine Ratio 32; Blood Urea Nitrogen 35 mg/dL (9-20); Calcium 8.4 mg/dL (8.4-10.2); Hemolysis Index 2
--- NOTE | 2018-11-12 08:43 | Anesthesia Day of Surgery ---
Anesthesia Day of Surgery - Day of Surgery Patient Examined: Yes Patient H&P Reviewed: Yes Patient is NPO: Yes
--- NOTE | 2018-11-12 08:49 | Anesthesia Consultation ---
Anesthesia Consult and Med Hx Date of service: 11/12/18 - Airway Anesthetic Teeth Evaluation: Chipped, Caps ROM Head & Neck: Adequate Mental/Hyoid Distance: Adequate Mallampati Class: Class IV Intubation Access Assessment: Difficult - Pre-Operative Health Status ASA Pre-Surgery Classification: ASA3, Emergency Proposed Anesthetic Plan: MAC - Pulmonary Hx Smoking: Yes (quit 10 yr with 20pk yrs) Hx Asthma: No SOB: Yes (PRN INHALER) COPD: Yes Hx Pneumonia: Yes (2015) Hx Sleep Apnea: No (HIGH RISK PROTOCOL INITIATED) - Cardiovascular System Hx Hypertension: Yes (Gets tired easily) Hx Coronary Artery Disease: No (mild LVH; Right BBB) Hx Heart Attack/AMI: No Hx Angina: No (Knee pain limits METs assessment) Hx Internal Defibrillator: No (CARDIOMYOPATHY) 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
[2018-11-12] MEDS ORDERED: NORMODYNE IV ONE (09:03)
[2018-11-12] MEDS ORDERED: DIPRIVAN 10 MG/ML IV ONE (09:03)
[2018-11-12] MEDS ORDERED: XYLOCAINE 2% INFILTRATI ONE (09:04)
[2018-11-12] MEDS ORDERED: VERSED ONE (09:04)
[2018-11-12] MEDS ORDERED: AMIDATE IV ONE (09:07)
[2018-11-12] MEDS ORDERED: ZOFRAN ONE (09:07)
--- NOTE | 2018-11-12 09:23 | Post Operative Note ---
Pre-op diagnosis: GI Bleed Post-op diagnosis: other (DU, Gastritis, Hiatal Hernia) Findings: 1. Small (< 4mm) white-based duodenal ulcer 2. Moderate erosive gastritis (cold bx antrum) 3. Small hiatal hernia Procedure: EGD with cold biopsy Anesthesia: MAC Surgeon: LUNA GUADARRAMA Estimated blood loss: minimal Pathology: list (1. Gastric antrum) Specimen disposition: to lab Condition: stable Disposition: floor (Recs: 1. Hold plavix until Tuesday 11/14; discontinue ibuprofen and all other NSAIDs. 2. Protonix daily PO therapy. 3. Advance diet. 4. OK to d/c home if stable without bleeding. 5. Ulcer was small, and patient had tics at colonoscopy 2016; can not say for certain this was ulcer versus diverticular bleeding. If patient rebleeds, get stat CTA or bleed scan to localize.)
--- NOTE | 2018-11-12 09:57 | Operative Report ---
PROCEDURE PERFORMED: Esophagogastroduodenoscopy with cold biopsy. PREOPERATIVE DIAGNOSIS: Gastrointestinal bleeding. POSTOPERATIVE DIAGNOSES: Duodenal ulcer, gastritis, hiatal hernia. ENDOSCOPIST: Best Quintero M.D. INSTRUMENT: Olympus video endoscope. MEDICATIONS: MAC anesthesia by [facility]. COMPLICATIONS: No apparent complications. ESTIMATED BLOOD LOSS: Minimal. SPECIMENS: Gastric antrum. IMPLANTS: None. ASSISTANTS: None. CONDITION AT COMPLETION: Stable. TECHNIQUE: The patient was informed of the risks and benefits of the procedure. He signed the informed consent to proceed. He was placed in left lateral decubitus position. The above sedative medications were given. His vital signs remained stable throughout the procedure. The instrument was advanced from the mouth to the second portion of the duodenum under direct visualization. At that point, the bowel was insufflated and the endoscope was slowly withdrawn. FINDINGS: 1. No blood and no blood clots in the upper GI tract. 2. Small, less than 4 mm, white-based ulcer in the duodenal bulb. 3. Moderate erosive gastritis in the antrum, status post cold biopsy to rule out H. pylori. 4. Small hiatal hernia. RECOMMENDATIONS: 1. Hold Plavix until Tuesday11/14/2018; I would discontinue ibuprofen and all other nonsteroidal anti-inflammatory drugs. 2. Protonix daily oral therapy. 3. Advance the patient's diet. 4. Okay to discharge the patient home if stable without bleeding. 5. The ulcer was small and I cannot say for certain that this was the source of the bleeding as the patient also had diverticular disease at a colonoscopy in 2017. If the patient rebleeds, I would get a stat CT angiogram or a bleeding scan to localize. JOB# [id number] JUHI/DEVIN
[2018-11-12] MEDS ORDERED: NACL 0.9% 1000 ML 1,000 ML IV SCH ×2 (10:00)
[2018-11-12] MEDS: BROVANA NEBU IH SCH ×2 (10:08→21:37)
[2018-11-12] MEDS: PULMICORT IH SCH ×2 (10:08→21:37)
[2018-11-12] MEDS: DUONEB *Not for PRN Use IH SCH ×3 (10:09→21:39)
[2018-11-12] MEDS: SODIUM CHLORIDE FLUSH SYRINGE 10 ML IV SCH ×2 (10:55→23:31)
[2018-11-12] MEDS: THERAGRAN-M Tab PO SCH (10:55)
[2018-11-12] MEDS: PROTONIX PO SCH (10:55)
[2018-11-12] MEDS: APRESOLINE PO SCH ×2 (10:55→23:26)
[2018-11-12] MEDS: CATAPRES PO SCH ×2 (10:56→23:26)
[2018-11-13 05:41] LABS: Basophils # (Auto) 0.1 K/mm3 (0.0-0.1); Basophils % (Auto) 0.4 % (0.0-1.8); Eosinophils # (Auto) 0.8 K/mm3 (0.0-0.4); Eosinophils % (Auto) 6.2 % (0.0-4.3); Hematocrit 20.1 % (35.5-45.6); Hemoglobin 6.7 gm/dl (11.8-15.2); Lymphocytes # (Auto) 2.7 K/mm3 (1.2-5.4); Lymphocytes % (Auto) 20.5 % (13.4-35.0); Mean Corpuscular HGB Conc 34 % (32-34); Mean Corpuscular Volume 90 fl (84-94); Monocytes # (Auto) 1.1 K/mm3 (0.0-0.8); Monocytes % (Auto) 8.1 % (0.0-7.3); Platelet Count 184 K/mm3 (140-440); Red Blood Count 2.23 M/mm3 (3.65-5.03); Red Cell Distribution Width 14.8 % (13.2-15.2)
[2018-11-13 06:02] LABS: Calcium 7.9 mg/dL (8.4-10.2)
--- NOTE | 2018-11-13 07:24 | Progress Note ---
Assessment and Plan 83 year old diabetic male with history of cardiomyopathy had 6 bloody bowel movements prior to admission. He is not actively bleeding at this time. He feels somewhat weak but not short of breath. He's had no prior episodes of this. He had a normal colonoscopy about a year ago with a physician group at [facility]. They cannot recall that physician's name. Colonoscopy was routine and not done for GI bleeding. Patient denies abdominal pain. He is asymptomatic at the time of my encounter. (1) Lower GI bleed Hemoglobin further dropped to 6.7 Had EGD 11/12/2018 that showed less than 4mm duodenal ulcer Had colonoscopy in 2017 with ticks. GI feels that no further colonoscopy was required Transfuse 2 units of packed red blood cell Continue IV protonix (2) Right bundle branch block Current Visit: Yes Status: Chronic (3) Asthma: Asthma severity: unspecified severity Plan to address problem: Cont Bronchodilators and Montelukast (4) CAD (coronary artery disease) Coronary Disease-Associated Artery/Lesion type: [place] artery [place] vs. transplanted heart: [place] heart Plan to address problem: Hold Plavix for now because of GI bleeding (5) GERD (gastroesophageal reflux disease) Continue with IV protonix (6) Hypertension Catapres patch pending by mouth intake (7) DVT prophylaxis Current Visit: Yes Status: Acute Plan to address problem: On SCD only. No anticoagulation because of GI bleeding Subjective Date of service: 11/12/18 Principal diagnosis: GI bleeding, RPP, asthma, CAD, GERD, HTN. Interval history: EGD today. Patient is sitting up in bed. No distress. He has done stool. Julio jorge l's son in the room. He is interpreting Objective - Exam Narrative Exam: Constitutional: Well-nourished well-developed. In no distress Head: Normocephalic atraumatic Eyes: Conjunctiva palor. Pupils are equal round and reactive to light Nose: No enlarged turbinates, no septal deviation. Mouth: Moist mucous membranes. Neck: Supple no thyromegaly. No bruit. No JVD Heart: Regular rate and rhythm, S1-S2 normal. No rubs murmurs or gallop Lungs: Clear to auscultation bilaterally. no rales or rhonchi Abdomen: Soft, nontender. Bowel sound are present. Extremities: No edema, no cyanosis, no clubbing. Neuro: Alert oriented Oriented x3. No focal sensory or motor deficit. Skin: No rashes or hyperpigmented spots Musculoskeletal system: No joint pain or swelling Hematological: No petechia or subcutanous hemorrhages. Immunological: No multiple septic spots on the skin Lymphatic: No generalized lymphadenopathy Psychiatry: Euthymic. Calm. - Constitutional Vitals: Vital Signs - 12hr 11/12/18 11/12/18 11/12/18 20:48 21:39 22:00 Temperature 98.1 F Pulse Rate 87 Pulse Rate [ 86 Bilateral Throughout] Respiratory 24 20 Rate Respiratory 16 Rate [Bilateral Throughout] Blood Pressure 139/57 O2 Sat by Pulse 92 92 Oximetry 11/13/18 11/13/18 01:35 03:02 Temperature 97.8 F Pulse Rate 87 87 Pulse Rate [ Bilateral Throughout] Respiratory 22 Rate Respiratory Rate [Bilateral Throughout] Blood Pressure 107/52 O2 Sat by Pulse 92 Oximetry - Labs CBC & Chem 7: 11/13/18 05:27 11/13/18 05:27 Labs: Abnormal lab results 11/12/18 11/12/18 11/12/18 Range/Units 07:35 07:35 07:35 WBC 11.1 H (4.5-11.0) K/mm3 RBC 3.03 L (3.65-5.03) M/mm3 Hgb 8.6 L 9.0 L (11.8-15.2) gm/dl Hct 25.6 L 27.1 L (35.5-45.6) % [place] % (Auto) (0.0-7.3) % Eos % (Auto) (0.0-4.3) % [place] # (0.0-0.8) K/mm3 Eos # (0.0-0.4) K/mm3 Seg Neutrophils % 72.0 H (40.0-70.0) % Seg Neutrophils # 8.0 H (1.8-7.7) K/mm3 BUN 35 H (9-20) mg/dL Glucose 118 H (75-100) mg/dL Calcium (8.4-10.2) mg/dL Total Protein 5.4 L (6.3-8.2) g/dL Albumin 3.5 L (3.9-5) g/dL 11/13/18 11/13/18 Range/Units 05:27 05:27 WBC 13.2 H (4.5-11.0) K/mm3 RBC 2.23 L (3.65-5.03) M/mm3 Hgb 6.7 L (11.8-15.2) gm/dl Hct 20.1 L D (35.5-45.6) % [place] % (Auto) 8.1 H (0.0-7.3) % Eos % (Auto) 6.2 H (0.0-4.3) % [place] # 1.1 H (0.0-0.8) K/mm3 Eos # 0.8 H (0.0-0.4) K/mm3 Seg Neutrophils % (40.0-70.0) % Seg Neutrophils # 8.5 H (1.8-7.7) K/mm3 BUN 26 H (9-20) mg/dL Glucose 112 H (75-100) mg/dL Calcium 7.9 L (8.4-10.2) mg/dL Total Protein (6.3-8.2) g/dL Albumin (3.9-5) g/dL
--- NOTE | 2018-11-13 07:34 | Progress Note ---
Assessment and Plan 83 year old diabetic male with history of cardiomyopathy had 6 bloody bowel movements prior to admission. He is not actively bleeding at this time. He feels somewhat weak but not short of breath. He's had no prior episodes of this. He had a normal colonoscopy about a year ago with a physician group at [facility]. They cannot recall that physician's name. Colonoscopy was routine and not done for GI bleeding. Patient denies abdominal pain. He is asymptomatic at the time of my encounter. (1) Lower GI bleed Hemoglobin further dropped to 6.7 Had EGD 11/12/2018 that showed less than 4mm duodenal ulcer Had colonoscopy in 2017 with ticks. GI feels that no further colonoscopy was required Transfuse 2 units of packed red blood cell Continue IV protonix (2) Right bundle branch block Current Visit: Yes Status: Chronic (3) Asthma: Asthma severity: unspecified severity Plan to address problem: Cont Bronchodilators and Montelukast (4) CAD (coronary artery disease) Coronary Disease-Associated Artery/Lesion type: [place] artery [place] vs. transplanted heart: [place] heart Plan to address problem: Hold Plavix for now because of GI bleeding (5) GERD (gastroesophageal reflux disease) Continue with IV protonix (6) Hypertension Catapres patch pending by mouth intake (7) Leukocytosis Likely reactive. We'll trend and obtain urine and blood cultures if still elevated by tomorrow (8) DVT prophylaxis Current Visit: Yes Status: Acute Plan to address problem: On SCD only. No anticoagulation because of GI bleeding Subjective Date of service: 11/13/18 Principal diagnosis: GI bleeding, RPP, asthma, CAD, GERD, HTN. Interval history: no new complaint. No distress. still has dark stool. Objective - Exam Narrative Exam: Constitutional: Well-nourished well-developed. In no distress Head: Normocephalic atraumatic Eyes: Conjunctiva palor. Pupils are equal round and reactive to light Nose: No enlarged turbinates, no septal deviation. Mouth: Moist mucous membranes. Neck: Supple no thyromegaly. No bruit. No JVD Heart: Regular rate and rhythm, S1-S2 normal. No rubs murmurs or gallop Lungs: Clear to auscultation bilaterally. no rales or rhonchi Abdomen: Soft, nontender. Bowel sound are present. Extremities: No edema, no cyanosis, no clubbing. Neuro: Alert oriented Oriented x3. No focal sensory or motor deficit. Skin: No rashes or hyperpigmented spots Musculoskeletal system: No joint pain or swelling Hematological: No petechia or subcutanous hemorrhages. Immunological: No multiple septic spots on the skin Lymphatic: No generalized lymphadenopathy Psychiatry: Euthymic. Calm. - Constitutional Vitals: Vital Signs - 12hr 11/12/18 11/12/18 11/12/18 20:48 21:39 22:00 Temperature 98.1 F Pulse Rate 87 Pulse Rate [ 86 Bilateral Throughout] Respiratory 24 20 Rate Respiratory 16 Rate [Bilateral Throughout] Blood Pressure 139/57 O2 Sat by Pulse 92 92 Oximetry 11/13/18 11/13/18 01:35 03:02 Temperature 97.8 F Pulse Rate 87 87 Pulse Rate [ Bilateral Throughout] Respiratory 22 Rate Respiratory Rate [Bilateral Throughout] Blood Pressure 107/52 O2 Sat by Pulse 92 Oximetry - Labs CBC & Chem 7: 11/13/18 05:27 11/13/18 05:27 Labs: Abnormal lab results 11/11/18 11/12/18 11/12/18 Range/Units 08:40 07:35 07:35 WBC 11.1 H (4.5-11.0) K/mm3 RBC 3.03 L (3.65-5.03) M/mm3 Hgb 8.6 L 9.0 L (11.8-15.2) gm/dl Hct 25.6 L 27.1 L (35.5-45.6) % [place] % (Auto) (0.0-7.3) % Eos % (Auto) (0.0-4.3) % [place] # (0.0-0.8) K/mm3 Eos # (0.0-0.4) K/mm3 Seg Neutrophils % 72.0 H (40.0-70.0) % Seg Neutrophils # 8.0 H (1.8-7.7) K/mm3 BUN (9-20) mg/dL Glucose (75-100) mg/dL Calcium (8.4-10.2) mg/dL Total Protein (6.3-8.2) g/dL Albumin (3.9-5) g/dL Crossmatch See Detail 06/23/19 06/24/19 06/24/19 Range/Units 07:35 05:27 05:27 WBC 13.2 H (4.5-11.0) K/mm3 RBC 2.23 L (3.65-5.03) M/mm3 Hgb 6.7 L (11.8-15.2) gm/dl Hct 20.1 L D (35.5-45.6) % [place] % (Auto) 8.1 H (0.0-7.3) % Eos % (Auto) 6.2 H (0.0-4.3) % [place] # 1.1 H (0.0-0.8) K/mm3 Eos # 0.8 H (0.0-0.4) K/mm3 Seg Neutrophils % (40.0-70.0) % Seg Neutrophils # 8.5 H (1.8-7.7) K/mm3 BUN 35 H 26 H (9-20) mg/dL Glucose 118 H 112 H (75-100) mg/dL Calcium 7.9 L (8.4-10.2) mg/dL Total Protein 5.4 L (6.3-8.2) g/dL Albumin 3.5 L (3.9-5) g/dL Crossmatch
[2018-11-13] MEDS ORDERED: NACL 0.9% 500 ML 500 ML IV NR (08:00)
[2018-11-13] MEDS ORDERED: FLUSH HEPARIN IV ONE ×2 (08:29)
[2018-11-13] MEDS ORDERED: CATAPRES PO SCH (10:00)
--- NOTE | 2018-11-13 10:38 | Event Note ---
Date: 11/13/18 Patient with noted drop in H/H overnight. Currently off of the floor for stat bleeding scan. No active signs of bleeding overnight or this am per nursing. If bleeding scan is positive, recommend IR consult.
[2018-11-13] MEDS: PULMICORT IH SCH ×2 (10:58→21:11)
[2018-11-13] MEDS: DUONEB *Not for PRN Use IH SCH ×3 (10:58→21:21)
[2018-11-13] MEDS: BROVANA NEBU IH SCH ×2 (10:58→21:11)
[2018-11-13] MEDS: APRESOLINE PO SCH ×2 (11:06→21:15)
[2018-11-13] MEDS: CATAPRES PO SCH ×2 (11:06→21:15)
[2018-11-13] MEDS: PROTONIX PO SCH (11:06)
[2018-11-13] MEDS: THERAGRAN-M Tab PO SCH (11:06)
--- NOTE | 2018-11-13 13:55 | Gastroenterology Progress Note ---
Assessment and Plan 1.acute blood loss anemia -H/H 6.7/20.1-trended down-transfusion PRBCs pending -continue to monitor H/H and transfuse as needed -continue to hold Plavix -no active signs of bleeding overnight or this am per pt/nursing -colon 2017 (+tics), and a small polyp -etiology- suspect PUD given recent NSAID use, however lower source (diverticular) not excluded -s/p EGD yesterday that showed a small (< 4mm) white-based duodenal ulcer, moderate erosive gastritis, and small hiatal hernia -stat bleeding scan ordered/completed this am given drop in H/H with results still pending -if positive, recommend IR consult (consider surgery consult as well) -avoid NSAIDs -continue PPI and supportive care -further recommendations to follow based on bleeding scan result Subjective Date of service: 11/13/18 Principal diagnosis: GI bleeding Interval history: Patient resting in bed this afternoon w/o acute distress and family at bedside. Denies abd pain, N/V, or active signs of bleeding. Objective - Constitutional Vitals: Temp Pulse Resp BP Pulse Ox 99 F 77 18 110/58 96 11/13/18 11:11 11/13/18 11:11 11/13/18 11:11 11/13/18 11:11 11/13/18 11:11 General appearance: no acute distress - Respiratory Respiratory effort: normal - Cardiovascular Rhythm: regular - Gastrointestinal General gastrointestinal: Present: soft, non-distended, normal bowel sounds - Labs CBC & Chem 7: 11/13/18 05:27 11/13/18 05:27 Labs: Laboratory Results - last 24 hr 11/11/18 11/13/18 11/13/18 08:40 05:27 05:27 WBC 13.2 H RBC 2.23 L Hgb 6.7 L Hct 20.1 L D MCV 90 MCH 30 MCHC 34 RDW 14.8 Plt Count 184 Lymph % (Auto) 20.5 [place] % (Auto) 8.1 H Eos % (Auto) 6.2 H Baso % (Auto) 0.4 Lymph # 2.7 [place] # 1.1 H Eos # 0.8 H Baso # 0.1 Seg Neutrophils % 64.8 Seg Neutrophils # 8.5 H Sodium 139 Potassium 4.4 Chloride 106.0 Carbon Dioxide 24 Anion Gap 13 BUN 26 H Creatinine 1.2 Estimated GFR 58 BUN/Creatinine Ratio 22 Glucose 112 H Calcium 7.9 L Blood Type O POSITIVE Antibody Screen Negative Crossmatch See Detail
--- NOTE | 2018-11-13 14:14 | Nuclear Medicine Report ---
BLEEDING SCAN: History: GI bleeding. Standard distribution of radiotracer is noted. Activity is identified in the liver, spleen, bladder and vascular structures. On the inferior edge of the field of view there appears to be accumulation of radiotracer in the lower rectum. This could also represent perineal contamination. Please correlate with the patient. IMPRESSION: There is a small amount of abnormal radiotracer accumulation overlying the lower rectum. Rectal bleeding is difficult to exclude. This could also represent peritoneal contamination. Please correlate with the patient.
[2018-11-13] MEDS: TYLENOL PO PRN ×2 (14:38→21:16)
[2018-11-13] MEDS: SODIUM CHLORIDE FLUSH SYRINGE 10 ML IV SCH ×2 (14:40→21:19)
[2018-11-14 06:19] LABS: Hematocrit 26.8 % (35.5-45.6); Hemoglobin 9.2 gm/dl (11.8-15.2)
[2018-11-14] MEDS: BROVANA NEBU IH SCH (07:50)
[2018-11-14] MEDS: DUONEB *Not for PRN Use IH SCH (07:50)
[2018-11-14] MEDS: PULMICORT IH SCH (07:50)
[2018-11-14 08:58] VITALS: BP 153/63
--- NOTE | 2018-11-14 09:16 | Discharge Summary ---
Providers - Providers Date of Admission: 11/11/18 10:01 Attending physician: ERIC MIKE MD 11/11/18 17:03 Consult to Physician [CONS] Routine Comment: called ans. serv./clarice Consulting Provider: TALHA CALIX Physician Instructions: Reason For Exam: lower GI bleed 11/13/18 08:22 Physical Therapy Evaluation and Treat [CONS] Routine Comment: Reason For Exam: Weakness Primary care physician: SHEILA MONTGOMERY Hospitalization Reason for admission: Gi BLEED Condition: Stable Hospital course: 83 year old diabetic male with history of cardiomyopathy had 6 bloody bowel movements prior to admission. He is not actively bleeding at this time. He feels somewhat weak but not short of breath. He's had no prior episodes of t his. He had a normal colonoscopy about a year ago with a physician group at [facility]. They cannot recall that physician's name. Colonoscopy was routine and not done for GI bleeding. Patient denies abdominal pain. He is asymptomatic at the time of my encounter. Patient had RBC scan is read as negative (possibly equivocal) and the patient has not had a BM/bleeding in the last 12 hours. GI felt all bleeding has stopped. Will continue protonix/MVI; hold plavix would hold plavix another 7 days, also recommend. If rebleeds, will need repeat colonoscopy (but tics noted at colonoscopy 2016). He received 2 units PRBC and treated with IV protonix * Had EGD 11/12/2018 that showed less than 4mm duodenal ulcer * if RELEED positive, recommend IR consult (consider surgery consult as well) * Avoid NSAIDS * Patient reported good improvement following transfusion. * Son was at bedside, * No infection was noted. (1) Lower GI bleed- secondary to Duodneal ulcer (2) Severe Acute Blood loss anemia secondary to GI bleed (3) Asthma: (4) Duodenal Ulcer (5) GERD (gastroesophageal reflux disease) (6) Hypertension (7) Leukocytosis-Likely reactive. 8. CAD (coronary artery disease) 9. Right bundle branch block Disposition: DC-01 TO HOME OR SELFCARE Time spent for discharge: 35 MINS Core Measure Documentation - Palliative Care Palliative Care/ Comfort Measures: Not Applicable - Core Measures Any of the following diagnoses?: none Exam - Physical Exam Narrative exam: Constitutional: Well-nourished well-developed. In no distress, AMBULATING without support Head: Normocephalic atraumatic Eyes: Conjunctiva palor. Pupils are equal round and reactive to light Nose: No enlarged turbinates, no septal deviation. Mouth: Moist mucous membranes. Neck: Supple no thyromegaly. No bruit. No JVD Heart: Regular rate and rhythm, S1-S2 normal. No rubs murmurs or gallop Lungs: Clear to auscultation bilaterally. no rales or rhonchi Abdomen: Soft, nontender. Bowel sound are present. Extremities: No edema, no cyanosis, no clubbing. Neuro: Alert oriented Oriented x3. No focal sensory or motor deficit. Skin: No rashes or hyperpigmented spots Musculoskeletal system: No joint pain or swelling Hematological: No petechia or subcutanous hemorrhages. Immunological: No multiple septic spots on the skin Lymphatic: No generalized lymphadenopathy Psychiatry: Euthymic. Calm. - Constitutional Vitals: Temp Pulse Resp BP Pulse Ox 98.3 F 75 18 153/63 94 11/14/18 08:02 11/14/18 08:02 11/14/18 08:02 11/14/18 08:02 11/14/18 08:02 Plan Activity: advance as tolerated, fall precautions Diet: low fat Special Instructions: record daily BP diary Additional Instructions: avoid NSAIDS,. HAVE PCP Recheck CBC in 3 days. Restart Plavix on November 21 2018 Follow up with: SHEILA MONTGOMERY MD [Primary Care Provider] - 3-5 Days LUNA GUADARRAMA MD [Staff Physician] - 7 Days Forms: Accompanied Note Prescriptions: Multivitamin Tab W-MINERAL [Multiple Vitamin/Mineral (Theragran M)] 1 each PO QDAY #30 tablet Pantoprazole [Protonix TAB] 40 mg PO QDAY #30 tablet Other Discharge Orders: Physicial Therapy (Amb) Location: None Selected
[2018-11-14] MEDS: THERAGRAN-M Tab PO SCH (10:01)
[2018-11-14] MEDS: APRESOLINE PO SCH (10:03)
[2018-11-14] MEDS: CATAPRES PO SCH (10:03)
[2018-11-14] MEDS: SODIUM CHLORIDE FLUSH SYRINGE 10 ML IV SCH (10:04)
[2018-11-14] MEDS: PROTONIX PO SCH (10:05)
--- NOTE | 2018-11-14 11:15 | Gastroenterology Progress Note ---
Assessment and Plan - Patient Problems (1) Acute blood loss anemia Current Visit: Yes Status: Acute Plan to address problem: -H/H stable after transfusion -patient had small ulcer (likely from new ibuprofen) but also a hx of diverticulosis; unclear primary bleed source (bleed scan negative). - Agree with hold plavix x 7 days given severity of bleed, and d/c all NSAIDs. - To f/u with us in clinic in 4 weeks to repeat labs - OK to d/c home per our service Subjective Date of service: 11/14/18 Principal diagnosis: GI bleeding Interval history: There has been no bleeding > 36 hours and he is tolerating a regular diet. No N/V/abdominal pain. Objective - Constitutional Vitals: Temp Pulse Resp BP Pulse Ox 98.3 F 75 18 153/63 94 11/14/18 08:02 11/14/18 10:03 11/14/18 08:02 11/14/18 10:03 11/14/18 08:02 General appearance: no acute distress - Respiratory Respiratory effort: normal Respiratory: bilateral: CTA - Cardiovascular Rhythm: regular Heart Sounds: Present: S1 & S2 - Gastrointestinal General gastrointestinal: Present: soft, non-tender, non-distended - Labs CBC & Chem 7: 11/14/18 05:38 11/13/18 05:27 Labs: Laboratory Results - last 24 hr 11/11/18 11/14/18 08:40 05:38 Hgb 9.2 L Hct 26.8 L D Blood Type O POSITIVE Antibody Screen Negative Crossmatch See Detail
[2018-11-18] MEDS ORDERED: CATAPRES-TTS PATCH TD SCH (10:00)
== END 2018-11-14 12:38 | disposition home or self-care (01) | DRG 378 ==
LOC: ED 08:06 → 2B-ACE 10:01
PROVIDERS: ADMIT Internal Medicine; ATTEND Internal Medicine
PROC: 0DB68ZX Excision of Stomach, Via Natural or Artificial Opening Endoscopic, Diagnostic (ICD-10-PCS; 2018-11-12)
PROC: 30233N1 Transfusion of Nonautologous Red Blood Cells into Peripheral Vein, Percutaneous Approach (ICD-10-PCS; principal; 2018-11-13)
DX: K26.4 Chronic or unspecified duodenal ulcer with hemorrhage (principal); D62 Acute posthemorrhagic anemia; I42.9 Cardiomyopathy, unspecified; I10 Essential (primary) hypertension; K21.0 Gastro-esophageal reflux disease with esophagitis; K44.9 Diaphragmatic hernia without obstruction or gangrene; K29.60 Other gastritis without bleeding; I25.10 Atherosclerotic heart disease of native coronary artery without angina pectoris; I45.10 Unspecified right bundle-branch block; G43.909 Migraine, unspecified, not intractable, without status migrainosus; J44.9 Chronic obstructive pulmonary disease, unspecified; Z82.49 Family history of ischemic heart disease and other diseases of the circulatory system
CPT/HCPCS: 36415; 71045; 78278; 80048; 80053; 80076; 83036; 83880; 85014; 85018; 85025; 85610; 85730; 86850; 86900; 86901; 86920; 88305; 88342; 93005; 93010; 94640; G0378; A9560; C9113; J1642; J2250; J2405; J2704; J7030; J7040; P9016

== ENCOUNTER 2018-11-24 18:12 | Inpatient (IN) | payer MEDICARE ==
--- NOTE | 2018-11-24 18:55 | Emergency Department Report ---
HPI - General Chief Complaint: Dyspnea/Respdistress Time Seen by Provider: 11/24/18 18:32 - HPI HPI: Room 2 The patient is an 83-year-old male presenting with a chief complaint of shortness of breath. Family states today at 16:00 the patient complained of feeling cold and short of breath. The patient has a history of COPD and is on home O2 prn. Patient denies cough chest pain nausea/vomiting or pleurisy. Patient was recently discharged from the hospital after being evaluated for GI bleed. When asked how he is feeling the patient complains of feeling cold and short of breath. Location: Lungs Duration: [See above] Quality: Shortness of breath Severity: [See above] Modifying factors: [see above] Context: [see above] Mode of transportation: [not driving] ED Past Medical Hx - Past Medical History Hx Hypertension: Yes (Gets tired easily) Hx GERD: Yes Hx Arthritis: Yes Hx Headaches / Migraines: Yes Hx COPD: Yes Additional medical history: bladder tumor. elevated cholestrol - Surgical History Hx Open Heart Surgery: Yes ("RING AROUND VALVE", or tell me that the patient had a valvuloplasty ) Additional Surgical History: eye surgery. mitral valve repair - Family History Family history: no significant - Social History Smoking Status: Former Smoker (none 15 years) Substance Use Type: None (denies illicit drug use), Alcohol (rarely) - Medications Home Medications: Home Medications Medication Instructions Recorded Confirmed Last Taken Type AtorvaSTATin [Lipitor] 20 mg PO QHS 10/14/14 11/11/18 1 Day Ago History ~11/10/18 Albuterol Sulfate [Proair 90 mcg IH BID 07/04/18 11/11/18 Unknown History Respiclick] Fluticasone/Salmeterol [Advair 1 each IH BID 07/04/18 11/11/18 Unknown History 500-50 Diskus] Ipratropium/Albuterol Sulfate 1 spray IH BID 07/04/18 11/11/18 Unknown History [Combivent Respimat] cloNIDine [Catapres] 0.2 mg PO BID 07/04/18 11/11/18 Unknown History ALBUTEROL NEB's [Proventil 0.083% 2.5 mg IH Q4HRT PRN nebu 07/09/18 11/11/18 Unknown Rx NEBS] Arformoterol Nebu [Brovana Nebu] 15 mcg IH Q12HRT ml 07/09/18 11/11/18 Unknown Rx Budesonide [Pulmicort Respules] 0.5 mg IH Q12HRT nebu 07/09/18 11/11/18 Unknown Rx Clopidogrel [Plavix] 75 mg PO DAILY tablet 07/09/18 11/11/18 1 Day Ago Rx ~11/10/18 Famotidine [Pepcid] 20 mg PO BID tablet 07/09/18 11/11/18 Unknown Rx Gabapentin [Neurontin] 300 mg PO BID capsule 07/09/18 11/11/18 Unknown Rx Ipratropium/Albuterol Sulfate 1 ampul IH TIDRT ampul.neb 07/09/18 11/11/18 Unknown Rx [DUONEB *Not for PRN Use*] Montelukast [Singulair] 10 mg PO QPM tablet 07/09/18 11/11/18 1 Day Ago Rx ~11/10/18 Tamsulosin [Flomax] 0.4 mg PO DAILY capsule 07/09/18 11/11/18 1 Day Ago Rx ~11/10/18 guaiFENesin ER [Mucinex ER] 600 mg PO BID #60 tablet 07/09/18 11/11/18 Unknown Rx hydrALAZINE [Apresoline TAB] 100 mg PO BID tab 07/09/18 11/11/18 1 Day Ago Rx ~11/10/18 predniSONE [Deltasone] 40 mg PO QDAY #20 tablet 07/09/18 11/11/18 Unknown Rx Hydroxyzine HCl 25 mg PO DAILY 11/11/18 11/11/18 Unknown History Pentoxifylline 400 mg PO BID 11/11/18 11/11/18 1 Day Ago History ~11/10/18 Multivitamin Tab W-MINERAL 1 each PO QDAY #30 tablet 11/14/18 Unknown Rx [Multiple Vitamin/Mineral (Theragran M)] Pantoprazole [Protonix TAB] 40 mg PO QDAY #30 tablet 11/14/18 Unknown Rx ED Review of Systems ROS: Stated complaint: ZULEYKA Other details as noted in HPI Constitutional: chills. denies: fever Eyes: denies: eye pain ENT: denies: throat pain Respiratory: shortness of breath. denies: cough Cardiovascular: denies: chest pain Endocrine: no symptoms reported Gastrointestinal: denies: nausea, vomiting Genitourinary: denies: dysuria Musculoskeletal: denies: back pain Neurological: denies: headache Physical Exam - Physical Exam Vital Signs: Vital Signs 11/24/18 18:16 Temperature 99.7 F H Pulse Rate 137 H Respiratory 24 Rate Blood Pressure 182/85 [Left] O2 Sat by Pulse 85 Oximetry Physical Exam: GENERAL: The patient is well-developed well-nourished male lying on stretcher not appearing to be in acute distress. [] HEENT: Normocephalic. Atraumatic. Extraocular motions are intact. Patient has moist mucous membranes. NECK: Supple. Trachea midline CHEST/LUNGS: Clear to auscultation but diminished breath sounds diffusely. There is no respiratory distress noted. HEART/CARDIOVASCULAR: Regular. There is tachycardia. There is no gallop rub or murmur. ABDOMEN: Abdomen is soft, nontender. Patient has normal bowel sounds. There is no abdominal distention. SKIN: There is no rash. There is no edema. There is no diaphoresis. NEURO: The patient is awake, alert, and oriented. The patient is cooperative. The patient has normal speech MUSCULOSKELETAL: There is no evidence of acute injury. ED Course Vital Signs 11/24/18 18:16 Temperature 99.7 F H Pulse Rate 137 H Respiratory 24 Rate Blood Pressure 182/85 [Left] O2 Sat by Pulse 85 Oximetry ED Medical Decision Making - Lab Data Result diagrams: 11/24/18 18:57 11/24/18 18:57 Laboratory Tests 11/24/18 11/24/18 11/24/18 18:57 18:57 18:57 WBC 10.0 RBC 3.49 L Hgb 10.9 L Hct 32.3 L MCV 93 MCH 31 MCHC 34 RDW 15.8 H Plt Count 457 H Lymph % (Auto) 14.4 Tripp % (Auto) 1.4 Eos % (Auto) 1.0 Baso % (Auto) 0.3 Lymph # 1.4 Tripp # 0.1 Eos # 0.1 Baso # 0.0 Seg Neutrophils % 82.9 H Seg Neutrophils # 8.3 H PT 12.3 INR 0.94 APTT 24.4 Sodium 139 Potassium 4.5 Chloride 100.2 Carbon Dioxide 24 Anion Gap 19 BUN 24 H Creatinine 1.2 Estimated GFR 58 BUN/Creatinine Ratio 20 Glucose 114 H Calcium 8.9 Total Bilirubin 0.20 ALT 25 Alkaline Phosphatase 61 Total Creatine Kinase 56 CK-MB (CK-2) 1.8 CK-MB (CK-2) Rel Index 3.2 Troponin T 0.017 NT-Pro-B Natriuret Pep 289.1 Total Protein 6.9 Albumin 3.8 L Albumin/Globulin Ratio 1.2 TSH Free T4 11/24/18 18:57 WBC RBC Hgb Hct MCV MCH MCHC RDW Plt Count Lymph % (Auto) Tripp % (Auto) Eos % (Auto) Baso % (Auto) Lymph # Tripp # Eos # Baso # Seg Neutrophils % Seg Neutrophils # PT INR APTT Sodium Potassium Chloride Carbon Dioxide Anion Gap BUN Creatinine Estimated GFR BUN/Creatinine Ratio Glucose Calcium Total Bilirubin ALT Alkaline Phosphatase Total Creatine Kinase CK-MB (CK-2) CK-MB (CK-2) Rel Index Troponin T NT-Pro-B Natriuret Pep Total Protein Albumin Albumin/Globulin Ratio TSH 1.550 Free T4 1.29 - EKG Data -: EKG Interpreted by Me EKG shows normal: sinus rhythm Rate: tachycardia (123 bpm) - EKG Data When compared to previous EKG there are: previous EKG unavailable Interpretation: other (frequent PVCs) - Radiology Data Radiology results: report reviewed (chest x-ray), image reviewed (chest x-ray) interpreted by me: Chest x-ray-left lower lobe infiltrate [facility] [address] [place] [address] XRay Report Signed Patient: KATE LEON MR#: [id number] : 1935 Acct:[id number] Age/Sex: 83 / M ADM Date: 11/24/18 Loc: ED Attending Dr: Ordering Physician: JUNI PUENTE MD Date of Service: 11/24/18 Procedure(s): XR chest 1V ap Accession Number(s): [id number] cc: JUNI PUENTE MD Fluoro Time In Minutes: CHEST 1 VIEW 11/24/2018 6:44 PM INDICATION / CLINICAL INFORMATION: shortness of breath, hypoxia. COMPARISON: Chest x-ray on 11/11/2018. FINDINGS: SUPPORT DEVICES: None. HEART / MEDIASTINUM: Stable mild cardiomegaly. LUNGS / PLEURA: Interval development of mild interstitial edema. No pneumothorax. ADDITIONAL FINDINGS: No significant additional findings. IMPRESSION: 1. Interval development of mild interstitial pulmonary edema compared with 2018. Signer Name: Yan Gomez MD Signed: 11/24/2018 7:04 PM Workstation Name: [id number] Transcribed By: ALAN Dictated By: Yan Gomez MD Electronically Authenticated By: Yan Gomez MD Signed Date/Time: 11/24/181903 DD/ 03 TD/TT: - Differential Diagnosis pneumonia, PE, symptomatic anemia, COPD exacerbation Critical care attestation.: If time is entered above; I have spent that time in minutes in the direct care of this critically ill patient, excluding procedure time. ED Disposition Clinical Impression: Fever, Pneumonia, Hypoxia Disposition: OP ADMIT IP TO THIS HOSP Is pt being admited?: Yes Does the pt Need Aspirin: Yes Condition: Fair Instructions: Bacterial Pneumonia (ED) Time of Disposition: 19:40 (hospitalist paged (Dr Angeles))
[2018-11-24] MEDS ORDERED: TYLENOL ONE (18:58)
[2018-11-24] MEDS ORDERED: TYLENOL PO ONE (18:59)
[2018-11-24 19:08] LABS: Basophils % (Auto) 0.3 % (0.0-1.8); Eosinophils # (Auto) 0.1 K/mm3 (0.0-0.4); Hematocrit 32.3 % (35.5-45.6); Hemoglobin 10.9 gm/dl (11.8-15.2); Lymphocytes # (Auto) 1.4 K/mm3 (1.2-5.4); Lymphocytes % (Auto) 14.4 % (13.4-35.0); Mean Corpuscular HGB Conc 34 % (32-34); Mean Corpuscular Volume 93 fl (84-94); Monocytes # (Auto) 0.1 K/mm3 (0.0-0.8); Monocytes % (Auto) 1.4 % (0.0-7.3); Platelet Count 457 K/mm3 (140-440); Red Blood Count 3.49 M/mm3 (3.65-5.03); Red Cell Distribution Width 15.8 % (13.2-15.2)
--- NOTE | 2018-11-24 19:09 | XRay Report ---
CHEST 1 VIEW 11/24/2018 6:44 PM INDICATION / CLINICAL INFORMATION: shortness of breath, hypoxia. COMPARISON: Chest x-ray on 11/11/2018. FINDINGS: SUPPORT DEVICES: None. HEART / MEDIASTINUM: Stable mild cardiomegaly. LUNGS / PLEURA: Interval development of mild interstitial edema. No pneumothorax. ADDITIONAL FINDINGS: No significant additional findings. IMPRESSION: 1. Interval development of mild interstitial pulmonary edema compared with 11/11/2018. Signer Name: Yan Gomez MD Signed: 11/24/2018 7:04 PM Workstation Name: [id number]
[2018-11-24 19:27] LABS: Creatine Kinase MB 1.8 ng/mL (0.0-4.0); INR 0.94 (0.87-1.13); Partial Thromboplastin Time 24.4 Sec. (24.2-36.6)
[2018-11-24 19:29] LABS: Albumin 3.8 g/dL (3.9-5); Calcium 8.9 mg/dL (8.4-10.2)
[2018-11-24 19:35] LABS: Free T4 (Free Thyroxine) 1.29 ng/dL (0.76-1.46)
[2018-11-24] MEDS ORDERED: LEVAQUIN 750MG/150ML 750 MG/150 ML BAG IV ONE (19:38)
[2018-11-24] MEDS ORDERED: ASPIRIN PO ONE (19:40)
[2018-11-24] MEDS ORDERED: PROVENTIL IH PRN (20:47)
[2018-11-24] MEDS ORDERED: PERCOCET 5/325 PO PRN (20:57)
[2018-11-24] MEDS ORDERED: ZOFRAN IV PRN (20:57)
[2018-11-24] MEDS ORDERED: DILAUDID IV PRN (20:57)
[2018-11-24] MEDS ORDERED: TYLENOL PO PRN (20:57)
[2018-11-24] MEDS ORDERED: PULMICORT IH SCH (21:00)
[2018-11-24] MEDS ORDERED: PROTONIX PO ONE (21:54)
[2018-11-24] MEDS ORDERED: PEPCID ONE (21:54)
[2018-11-24] MEDS ORDERED: LOVENOX SUB-Q ONE (21:54)
[2018-11-24] MEDS ORDERED: SOLU-Medrol ONE (21:55)
[2018-11-24] MEDS ORDERED: THERAGRAN Tab PO ONE (21:55)
[2018-11-24] MEDS ORDERED: K-DUR PO ONE (21:55)
[2018-11-24] MEDS ORDERED: PLAVIX ONE (21:55)
[2018-11-24] MEDS ORDERED: MUCINEX ER PO ONE (21:55)
[2018-11-24] MEDS ORDERED: NEURONTIN ONE (21:56)
[2018-11-24] MEDS: APRESOLINE PO SCH (21:59)
[2018-11-24] MEDS ORDERED: NON-FORMULARY (Ipratropium/Albuterol Sulfate [Combivent Respimat] 1 SPRAY) IH SCH (22:00)
[2018-11-24] MEDS ORDERED: LEVAQUIN 750MG/150ML 750 MG/150 ML BAG IV SCH (22:00)
[2018-11-24] MEDS ORDERED: NON-FORMULARY (Fluticasone/Salmeterol [Advair 500-50 Diskus] 1 EACH) IH SCH (22:00)
[2018-11-24] MEDS ORDERED: PEPCID PO SCH (22:00)
[2018-11-24] MEDS: CATAPRES PO SCH (22:00)
[2018-11-24] MEDS ORDERED: NON-FORMULARY (Albuterol Sulfate [Proair Respiclick] 90 MCG) IH SCH (22:00)
[2018-11-24 22:15] LABS: Chol/HDL Ratio 2.7 %
[2018-11-24] MEDS: PROTONIX PO SCH (22:16)
[2018-11-24] MEDS: LOVENOX SUB-Q SCH (22:16)
[2018-11-24] MEDS: MUCINEX ER PO SCH (22:16)
[2018-11-24] MEDS: THERAGRAN-M Tab PO SCH (22:16)
[2018-11-24] MEDS: PLAVIX PO SCH (22:16)
[2018-11-24] MEDS: K-DUR PO SCH (22:16)
[2018-11-24] MEDS: NEURONTIN PO SCH (22:17)
[2018-11-24] MEDS: SODIUM CHLORIDE FLUSH SYRINGE 10 ML IV SCH (22:18)
[2018-11-24] MEDS: BROVANA NEBU IH SCH (22:56)
[2018-11-24] MEDS: SOLU-Medrol IV SCH (23:06)
[2018-11-24] MEDS: FLOMAX PO SCH (23:07)
[2018-11-24] MEDS: TRENTAL PO SCH (23:07)
[2018-11-24] MEDS: SODIUM CHLORIDE FLUSH SYRINGE 10 ML IV PRN (23:10)
[2018-11-25] MEDS: SODIUM CHLORIDE FLUSH SYRINGE 10 ML IV PRN (05:44)
[2018-11-25] MEDS: SOLU-Medrol IV SCH ×3 (05:44→21:25)
--- NOTE | 2018-11-25 05:58 | Event Note ---
Date: 11/24/18 See H/p in reports COPD exacerbation Acute resp failure
[2018-11-25] MEDS ORDERED: LASIX IV SCH (06:00)
[2018-11-25 06:35] LABS: Albumin 3.5 g/dL (3.9-5); Calcium 8.5 mg/dL (8.4-10.2)
--- NOTE | 2018-11-25 06:41 | History and Physical Report ---
CHIEF COMPLAINT: Dyspnea and shortness of breath for last 3 hours. HISTORY OF PRESENT ILLNESS: This is an 83-year-old male with history of COPD, comes in for increasing shortness of breath for the last 3 hours. The patient has a history of COPD, on home oxygen on a p.r.n. basis. Cough with mucoid sputum present. No orthopnea present. The patient also feels cold. No fever or chills. No exacerbating or relieving factors. PAST MEDICAL HISTORY: Significant for hypertension, GERD, arthritis, headaches, migraines, COPD, bladder tumor, hyperlipidemia. Open heart surgery in the past with valvuloplasty. ADDITIONAL SURGICAL HISTORY: Eye surgery and mitral valve repair. Former smoker till 15 years ago. SOCIAL HISTORY: Former smoker. FAMILY HISTORY: Hypertension. CURRENT MEDICATIONS: Atorvastatin 20 mg daily, albuterol 90 mcg inhalation b.i.d., Advair 500/50 b.i.d., Combivent Respimat 1 spray b.i.d., Plavix 75 mg p.o. daily, tamsulosin 0.4 mg p.o. daily, pentoxifylline 400 mg twice a day. REVIEW OF SYSTEMS: Significant for increasing shortness of breath and wheezing and cough productive of mucoid sputum. Otherwise, review of systems negative. A 14-point review of systems done. PHYSICAL EXAMINATION: GENERAL: Elderly male, cooperative during examination, in moderate respiratory distress. VITAL SIGNS: Temperature 97.9, pulse is 108, respirations are 14, sats are 99%, blood pressure 114/81. HEENT: Unremarkable. Pupils equal and reactive. NECK: Supple. Accessory muscles of respiration are prominent. LUNGS: Bilateral inspiratory rhonchi and expiratory rhonchi present. Diminished air entry present. CARDIOVASCULAR: S1, S2 heard. No gallop, no murmur, no rub. Apical impulse in left fifth intercostal space and midclavicular line. ABDOMEN: Soft and benign. No hepatosplenomegaly. No guarding, no rigidity. Hernial orifices are normal. EXTREMITIES: Good pedal pulses. No pedal edema. CENTRAL NERVOUS SYSTEM: Alert and oriented x4. Nonfocal exam. SKIN: Normal. LABORATORY DATA: Significant for white count of 10,000, H and H is 10.9 and 32.3, platelet count is 457,000. A1c is 4.8. Sodium is 139, potassium is 4.5, BUN and creatinine is 24 and 1.2. Troponin is 0.017. Albumin is 3.8. Chest x-ray shows no acute infiltrate. Chest x-ray shows interval development of mild interstitial pulmonary edema compared with 11/11/2018. EKG, sinus tachycardia. Heart rate of 123 per minute. Multiform ventricular premature complexes present. ASSESSMENT AND PLAN: 1. Acute respiratory failure. The patient on oxygen. ABG was not done in the Emergency Room. We will get ABG done. DuoNebs q.i.d. round the clock and albuterol q.3 p.r.n. IV Solu-Medrol initiated. IV antibiotics initiated. 2. Elevated lactic acid, which was normal in the second one. No sepsis. 3. Chronic obstructive pulmonary disease exacerbation. IV antibiotics, IV Solu-Medrol and bronchodilator nebulizer treatments. Pulmonary consult requested. 4. Benign prostatic hypertrophy. Continue Flomax. 5. Hyperlipidemia. Continue atorvastatin. 6. Peripheral arterial disease. Continue pentoxifylline. 7. Asthma. Continue Singulair. 8. Gastroesophageal reflux disease. Continue Protonix. 9. Deep venous thrombosis prophylaxis. Lovenox initiated. In summary, the patient has acute respiratory failure and chronic obstructive pulmonary disease exacerbation. Congestive heart failure unlikely and the chest x-ray shows mild interstitial pulmonary edema. In summary, the patient has COPD exacerbation, acute respiratory failure, hyperlipidemia, BPH and peripheral arterial disease. Aggressive bronchodilator treatment, nebulizers, IV Solu-Medrol and IV antibiotics. Pulmonary consult requested. JOB# [id number] JEEVAN/DEVIN CHAPPELL
[2018-11-25] MEDS ORDERED: PULMICORT IH SCH (08:00)
[2018-11-25] MEDS ORDERED: DUONEB *Not for PRN Use IH SCH (08:00)
[2018-11-25] MEDS: BROVANA NEBU IH SCH ×2 (08:08→21:02)
[2018-11-25] MEDS: DUONEB *Not for PRN Use IH SCH ×4 (08:09→21:02)
[2018-11-25] MEDS: MUCINEX ER PO SCH ×2 (10:02→21:24)
[2018-11-25] MEDS: ATARAX PO SCH (10:02)
[2018-11-25] MEDS: APRESOLINE PO SCH ×2 (10:02→21:24)
[2018-11-25] MEDS: PLAVIX PO SCH (10:02)
[2018-11-25] MEDS: THERAGRAN-M Tab PO SCH (10:02)
[2018-11-25] MEDS: FLOMAX PO SCH (10:02)
[2018-11-25] MEDS: PROTONIX PO SCH (10:02)
[2018-11-25] MEDS: TRENTAL PO SCH ×2 (10:02→21:24)
[2018-11-25] MEDS: LOVENOX SUB-Q SCH (10:03)
[2018-11-25] MEDS: NEURONTIN PO SCH ×2 (10:03→21:24)
[2018-11-25] MEDS: SODIUM CHLORIDE FLUSH SYRINGE 10 ML IV SCH ×2 (10:03→21:25)
[2018-11-25] MEDS: CATAPRES PO SCH ×2 (10:03→21:24)
[2018-11-25] MEDS: K-DUR PO SCH ×2 (10:04→21:26)
--- NOTE | 2018-11-25 10:43 | Consultation ---
History of Present Illness Consult date: 11/25/18 Consult reason: congestive heart failure History of present illness: 89 year old male presenting with shortness of breath. Has history of chronic obstructive pulmonary disease as well as hypertension. Chest x-ray shows mild pulmonary vascular congestion. Past History Past Medical History: COPD, hypertension, hyperlipidemia Past Surgical History: valve replacement Social history: Medications and Allergies Allergies Allergy/AdvReac Type Severity Reaction Status Date / Time No Known Allergies Allergy Verified 11/11/18 08:08 Home Medications Medication Instructions Recorded Confirmed Last Taken Type AtorvaSTATin [Lipitor] 20 mg PO QHS 10/14/14 11/11/18 1 Day Ago History ~11/10/18 Albuterol Sulfate [Proair 90 mcg IH BID 07/04/18 11/11/18 Unknown History Respiclick] Fluticasone/Salmeterol [Advair 1 each IH BID 07/04/18 11/11/18 Unknown History 500-50 Diskus] Ipratropium/Albuterol Sulfate 1 spray IH BID 07/04/18 11/11/18 Unknown History [Combivent Respimat] cloNIDine [Catapres] 0.2 mg PO BID 07/04/18 11/11/18 Unknown History ALBUTEROL NEB's [Proventil 0.083% 2.5 mg IH Q4HRT PRN nebu 07/09/18 11/11/18 Unknown Rx NEBS] Arformoterol Nebu [Brovana Nebu] 15 mcg IH Q12HRT ml 07/09/18 11/11/18 Unknown Rx Budesonide [Pulmicort Respules] 0.5 mg IH Q12HRT nebu 07/09/18 11/11/18 Unknown Rx Clopidogrel [Plavix] 75 mg PO DAILY tablet 07/09/18 11/11/18 1 Day Ago Rx ~11/10/18 Famotidine [Pepcid] 20 mg PO BID tablet 07/09/18 11/11/18 Unknown Rx Gabapentin [Neurontin] 300 mg PO BID capsule 07/09/18 11/11/18 Unknown Rx Ipratropium/Albuterol Sulfate 1 ampul IH TIDRT ampul.neb 07/09/18 11/11/18 Unknown Rx [DUONEB *Not for PRN Use*] Montelukast [Singulair] 10 mg PO QPM tablet 07/09/18 11/11/18 1 Day Ago Rx ~11/10/18 Tamsulosin [Flomax] 0.4 mg PO DAILY capsule 07/09/18 11/11/18 1 Day Ago Rx ~11/10/18 guaiFENesin ER [Mucinex ER] 600 mg PO BID #60 tablet 07/09/18 11/11/18 Unknown Rx hydrALAZINE [Apresoline TAB] 100 mg PO BID tab 07/09/18 11/11/18 1 Day Ago Rx ~11/10/18 predniSONE [Deltasone] 40 mg PO QDAY #20 tablet 07/09/18 11/11/18 Unknown Rx Hydroxyzine HCl 25 mg PO DAILY 11/11/18 11/11/18 Unknown History Pentoxifylline 400 mg PO BID 11/11/18 11/11/18 1 Day Ago History ~11/10/18 Multivitamin Tab W-MINERAL 1 each PO QDAY #30 tablet 11/14/18 Unknown Rx [Multiple Vitamin/Mineral (Theragran M)] Pantoprazole [Protonix TAB] 40 mg PO QDAY #30 tablet 11/14/18 Unknown Rx Active Meds: Active Medications Acetaminophen (Tylenol) 650 mg PO Q4H PRN PRN Reason: Pain MILD(1-3)/Fever >100.5/BRYAN Albuterol (Proventil) 2.5 mg IH Q4HRT PRN PRN Reason: Shortness Of Breath Albuterol/Ipratropium (Duoneb *Not For Prn Use*) 1 ampul IH QIDRT [facility] Last Admin: 11/25/18 08:09 Dose: 1 ampul Documented by: Arformoterol Tartrate (Brovana Nebu) 15 mcg IH Q12HRT [facility] Last Admin: 11/25/18 08:08 Dose: 15 mcg Documented by: Atorvastatin Calcium (Lipitor) 20 mg PO QHS [facility] Last Admin: 11/24/18 22:16 Dose: 20 mg Documented by: Budesonide (Pulmicort) 1 mg IH Q12HRT [facility] Last Admin: 11/25/18 08:09 Dose: 1 mg Documented by: Clonidine HCl (Catapres) 0.2 mg PO BID [facility] Last Admin: 11/25/18 10:03 Dose: 0.2 mg Documented by: Clopidogrel Bisulfate (Plavix) 75 mg PO DAILY [facility] Last Admin: 11/25/18 10:02 Dose: 75 mg Documented by: Enoxaparin Sodium (Lovenox) 40 mg SUB-Q QDAY [facility] Last Admin: 11/25/18 10:03 Dose: 40 mg Documented by: Furosemide (Lasix) 40 mg IV 0600,1800 [facility] Last Admin: 11/25/18 07:44 Dose: Not Given Documented by: Gabapentin (Neurontin) 300 mg PO BID [facility] Last Admin: 11/25/18 10:03 Dose: 300 mg Documented by: Guaifenesin (Mucinex Er) 600 mg PO BID [facility] Last Admin: 11/25/18 10:02 Dose: 600 mg Documented by: Hydralazine HCl (Apresoline) 100 mg PO BID [facility] Last Admin: 11/25/18 10:02 Dose: 100 mg Documented by: Hydromorphone HCl (Dilaudid) 0.5 mg IV Q3H PRN PRN Reason: Pain , Severe (7-10) Hydroxyzine HCl (Atarax) 25 mg PO QDAY [facility] Last Admin: 11/25/18 10:02 Dose: 25 mg Documented by: Levofloxacin/Dextrose (Levaquin 750mg/150ml) 750 mg in 150 mls @ 100 mls/hr IV Q48H [facility]; Protocol Methylprednisolone Sodium Succinate (Solu-Medrol) 80 mg IV Q8HR [facility] Last Admin: 11/25/18 05:44 Dose: 80 mg Documented by: Montelukast Sodium (Singulair) 10 mg PO QPM [facility] Multivitamins/Minerals (Theragran-M Tab) 1 each PO QDAY [facility] Last Admin: 11/25/18 10:02 Dose: 1 each Documented by: Ondansetron HCl (Zofran) 4 mg IV Q8H PRN PRN Reason: Nausea And Vomiting Oxycodone/Acetaminophen (Percocet 5/325) 1 tab PO Q6H PRN PRN Reason: Pain, Moderate (4-6) Pantoprazole Sodium (Protonix) 40 mg PO QDAY [facility] Last Admin: 11/25/18 10:02 Dose: 40 mg Documented by: Pentoxifylline (Trental) 400 mg PO BID [facility] Last Admin: 11/25/18 10:02 Dose: 400 mg Documented by: Potassium Chloride (K-Dur) 20 meq PO Q12H [facility] Last Admin: 11/25/18 10:04 Dose: 20 meq Documented by: Sodium Chloride (Sodium Chloride Flush Syringe 10 Ml) 10 ml IV BID [facility] Last Admin: 11/25/18 10:03 Dose: 10 ml Documented by: Sodium Chloride (Sodium Chloride Flush Syringe 10 Ml) 10 ml IV PRN PRN PRN Reason: LINE FLUSH Last Admin: 11/25/18 05:44 Dose: 10 ml Documented by: Tamsulosin HCl (Flomax) 0.4 mg PO DAILY [facility] Last Admin: 11/25/18 10:02 Dose: 0.4 mg Documented by: Review of Systems Constitutional: no weight loss, no weight gain, no fatigue Cardiovascular: no chest pain, no orthopnea, no palpitations Respiratory: shortness of breath, dyspnea on exertion Gastrointestinal: no abdominal pain, no nausea, no vomiting Genitourinary Male: no flank pain, no discharge Rectal: no pain, no bleeding Integumentary: no rash, no pruritis Physical Examination Vital Signs Temp Pulse Resp BP Pulse Ox 99.7 F H 137 H 24 182/85 85 11/24/18 18:16 11/24/18 18:16 11/24/18 18:16 11/24/18 18:16 11/24/18 18:16 General appearance: no acute distress HEENT: Positive: PERRL, Normocephaly. Negative: Mucus Membranes Moist Neck: Positive: neck supple, trachea midline. Negative: JVD/HJR Cardiac: Positive: S1/S2, PMI. Negative: Regular Rate, S3, S4, Laterally Displaced Lungs: Positive: clear to auscultation, Wheezes, Rhonchi. Negative: Rales Neuro: Positive: Grossly Intact Extremities: Absent: edema Results 11/24/18 18:57 11/25/18 05:07 Cardiac Enzymes 11/24/18 11/25/18 Range/Units 18:57 05:07 AST 28 19 (5-40) units/L CK-MB (CK-2) 1.8 (0.0-4.0) ng/mL Coagulation 11/24/18 Range/Units 18:57 PT 12.3 (12.2-14.9) Sec. INR 0.94 (0.87-1.13) APTT 24.4 (24.2-36.6) Sec. Lipids 11/24/18 Range/Units 21:21 Triglycerides 67 (2-149) mg/dL Cholesterol 146 (50-199) mg/dL HDL Cholesterol 54 (40-59) mg/dL Cholesterol/HDL Ratio 2.70 % CBC 11/24/18 Range/Units 18:57 WBC 10.0 (4.5-11.0) K/mm3 RBC 3.49 L (3.65-5.03) M/mm3 Hgb 10.9 L (11.8-15.2) gm/dl Hct 32.3 L (35.5-45.6) % Plt Count 457 H (140-440) K/mm3 Lymph # 1.4 (1.2-5.4) K/mm3 [place] # 0.1 (0.0-0.8) K/mm3 Eos # 0.1 (0.0-0.4) K/mm3 Baso # 0.0 (0.0-0.1) K/mm3 Comprehensive Metabolic Panel 11/24/18 11/25/18 Range/Units 18:57 05:07 Sodium 139 137 (137-145) mmol/L Potassium 4.5 4.9 (3.6-5.0) mmol/L Chloride 100.2 101.4 (98-107) mmol/L Carbon Dioxide 24 23 (22-30) mmol/L BUN 24 H 32 H (9-20) mg/dL Creatinine 1.2 1.8 H (0.8-1.5) mg/dL Glucose 114 H 96 (75-100) mg/dL Calcium 8.9 8.5 (8.4-10.2) mg/dL AST 28 19 (5-40) units/L ALT 25 19 (7-56) units/L Alkaline Phosphatase 61 41 (35-129) units/L Total Protein 6.9 5.5 L D (6.3-8.2) g/dL Albumin 3.8 L 3.5 L (3.9-5) g/dL Assessment and Plan 1. Mild pulmonary vascular congestion on chest x-ray 2. Chronic obstructive pulmonary disease 3. Acute kidney injury 4. Essential hypertension Plan. Preliminary echocardiogram result shows mild concentric LVH with normal global ejection fraction approximately 50%.
--- NOTE | 2018-11-25 11:59 | Progress Note ---
Assessment and Plan Assessment and plan: --Acute exacerbation of COPD; Oxygen titrated consistent with 90% Nebulizers, IV steroids, inhalational steroids Pulmonary evaluation --Acute hypoxic respiratory failure; secondary to COPD exacerbation Continue albuterol treatment --Possible acute on chronic congestive heart failure Anti-failure medications, cardiology following --Lactic acidosis; resolved --Peripheral arterial disease; continue Current home medications --Gastroesophageal reflux disease; Protonix --Acute kidney injury; closely monitor renal function Avoid nephrotoxins, nephrology consult --Hypertension: Moderate control Continue current antihypertensives and when necessary medications --DVT prophylaxis; Lovenox --Full Code History Interval history: Patient seen and examined medical records reviewed Patient admitted with worsening shortness of breath Acute on chronic systolic congestive heart failure Patient feels slightly better Mild shortness of breath Vital signs noted Hospitalist Physical - Constitutional Vitals: Temp Pulse Resp BP Pulse Ox 97.5 F L 95 H 17 117/64 98 11/25/18 08:02 11/25/18 10:00 11/25/18 10:51 11/25/18 08:02 11/25/18 08:09 General appearance: Present: no acute distress, well-nourished - EENT Eyes: Present: PERRL, EOM intact - Neck Neck: Present: supple, normal ROM - Respiratory Respiratory effort: normal Respiratory: bilateral: diminished, rales, negative: rhonchi, wheezing - Cardiovascular Rhythm: regular Heart Sounds: Present: S1 & S2 - Extremities Extremities: no ischemia Extremity abnormal: edema - Abdominal General gastrointestinal: soft, non-tender, non-distended, normal bowel sounds - Integumentary Integumentary: Present: clear, warm - Psychiatric Psychiatric: appropriate mood/affect, cooperative - Neurologic Neurologic: CNII-XII intact, moves all extremities Results - Labs CBC & Chem 7: 11/24/18 18:57 11/25/18 05:07 Labs: Laboratory Last Values WBC 10.0 K/mm3 (4.5-11.0) 11/24/18 18:57 RBC 3.49 M/mm3 (3.65-5.03) L 11/24/18 18:57 Hgb 10.9 gm/dl (11.8-15.2) L 11/24/18 18:57 Hct 32.3 % (35.5-45.6) L 11/24/18 18:57 MCV 93 fl (84-94) 11/24/18 18:57 MCH 31 pg (28-32) 11/24/18 18:57 MCHC 34 % (32-34) 11/24/18 18:57 RDW 15.8 % (13.2-15.2) H 11/24/18 18:57 Plt Count 457 K/mm3 (140-440) H 11/24/18 18:57 Lymph % (Auto) 14.4 % (13.4-35.0) 11/24/18 18:57 [place] % (Auto) 1.4 % (0.0-7.3) 11/24/18 18:57 Eos % (Auto) 1.0 % (0.0-4.3) 11/24/18 18:57 Baso % (Auto) 0.3 % (0.0-1.8) 11/24/18 18:57 Lymph # 1.4 K/mm3 (1.2-5.4) 11/24/18 18:57 [place] # 0.1 K/mm3 (0.0-0.8) 11/24/18 18:57 Eos # 0.1 K/mm3 (0.0-0.4) 11/24/18 18:57 Baso # 0.0 K/mm3 (0.0-0.1) 11/24/18 18:57 Seg Neutrophils % 82.9 % (40.0-70.0) H 11/24/18 18:57 Seg Neutrophils # 8.3 K/mm3 (1.8-7.7) H 11/24/18 18:57 PT 12.3 Sec. (12.2-14.9) 11/24/18 18:57 INR 0.94 (0.87-1.13) 11/24/18 18:57 APTT 24.4 Sec. (24.2-36.6) 11/24/18 18:57 POC ABG pH 7.368 (7.35-7.45) 11/25/18 11:01 POC ABG pCO2 35.3 (35-45) 11/25/18 11:01 POC ABG pO2 77 (80-105) L 11/25/18 11:01 POC ABG HCO3 20.3 (22-26 mml/L) 11/25/18 11:01 POC ABG Total CO2 21 (23-27mmol/L) 11/25/18 11:01 POC ABG O2 Sat 95 11/25/18 11:01 POC ABG Base Excess -5 ((-2) - (+3)mmol/L) 11/25/18 11:01 2 % 11/25/18 11:01 Sodium 137 mmol/L (137-145) 11/25/18 05:07 Potassium 4.9 mmol/L (3.6-5.0) 11/25/18 05:07 Chloride 101.4 mmol/L (98-107) 11/25/18 05:07 Carbon Dioxide 23 mmol/L (22-30) 11/25/18 05:07 18 mmol/L 11/25/18 05:07 BUN 32 mg/dL (9-20) H 11/25/18 05:07 1.8 mg/dL (0.8-1.5) H 11/25/18 05:07 Estimated GFR 36 ml/min 11/25/18 05:07 18 % 11/25/18 05:07 Glucose 96 mg/dL (75-100) 11/25/18 05:07 4.8 % (4-6) 11/24/18 21:21 Lactic Acid 1.70 mmol/L (0.7-2.0) 11/24/18 21:21 Calcium 8.5 mg/dL (8.4-10.2) 11/25/18 05:07 0.60 mg/dL (0.1-1.2) 11/25/18 05:07 AST 19 units/L (5-40) 11/25/18 05:07 ALT 19 units/L (7-56) 11/25/18 05:07 41 units/L (35-129) 11/25/18 05:07 56 units/L (55-170) 11/24/18 18:57 CK-MB (CK-2) 1.8 ng/mL (0.0-4.0) 11/24/18 18:57 CK-MB (CK-2) Rel Index 3.2 (0-4) 11/24/18 18:57 0.032 ng/mL (0.00-0.029) H D 11/25/18 05:07 NT-Pro-B Natriuret Pep 289.1 pg/mL (0-900) 11/24/18 18:57 5.5 g/dL (6.3-8.2) L D 11/25/18 05:07 3.5 g/dL (3.9-5) L 11/25/18 05:07 1.8 % 11/25/18 05:07 Triglycerides 67 mg/dL (2-149) 11/24/18 21:21 Cholesterol 146 mg/dL (50-199) 11/24/18 21:21 90 mg/dL (50-130) 11/24/18 21:21 54 mg/dL (40-59) 11/24/18 21:21 2.70 % 11/24/18 21:21 TSH 1.550 mlU/mL (0.270-4.200) 11/24/18 18:57 Free T4 1.29 ng/dL (0.76-1.46) 11/24/18 18:57 Active Medications - Current Medications Current Medications: Generic Name Dose Route Start Last Admin Trade Name Freq PRN Reason Stop Dose Admin Acetaminophen 650 mg 11/24/18 20:57 Tylenol PO Q4H PRN Pain MILD(1-3)/Fever >100.5/BRYAN Albuterol 2.5 mg 11/24/18 20:47 Proventil IH Q4HRT PRN Shortness Of Breath Albuterol/Ipratropium 1 ampul 11/25/18 08:00 11/25/18 08:09 Duoneb *Not For Prn Use* IH 1 ampul QIDRT TERESA Administration Arformoterol Tartrate 15 mcg 11/24/18 21:00 11/25/18 08:08 Brovana Nebu IH 15 mcg Q12HRT TERESA Administration Atorvastatin Calcium 20 mg 11/24/18 22:00 11/24/18 22:16 Lipitor PO 20 mg QHS TERESA Administration Budesonide 1 mg 11/25/18 08:00 11/25/18 08:09 Pulmicort IH 1 mg Q12HRT TERESA Administration Clonidine HCl 0.2 mg 11/24/18 22:00 11/25/18 10:03 Catapres PO 0.2 mg BID TERESA Administration Clopidogrel Bisulfate 75 mg 11/24/18 21:00 11/25/18 10:02 Plavix PO 75 mg DAILY TERESA Administration Enoxaparin Sodium 40 mg 11/24/18 21:00 11/25/18 10:03 Lovenox SUB-Q 40 mg QDAY TERESA Administration Furosemide 40 mg 11/25/18 06:00 11/25/18 07:44 Lasix IV Not Given 0600,1800 [facility] Gabapentin 300 mg 11/24/18 22:00 11/25/18 10:03 Neurontin PO 300 mg BID TERESA Administration Guaifenesin 600 mg 11/24/18 22:00 11/25/18 10:02 Mucinex Er PO 600 mg BID TERESA Administration Hydralazine HCl 100 mg 11/24/18 22:00 11/25/18 10:02 Apresoline PO 100 mg BID TERESA Administration Hydromorphone HCl 0.5 mg 11/24/18 20:57 Dilaudid IV Q3H PRN Pain , Severe (7-10) Hydroxyzine HCl 25 mg 11/25/18 10:00 11/25/18 10:02 Atarax PO 25 mg QDAY [facility] Administration Levofloxacin/Dextrose 750 mg in 150 mls @ 100 mls/hr 11/25/18 20:00 Levaquin 750mg/150ml IV Q48H [facility] Protocol Methylprednisolone Sodium Succinate 80 mg 11/24/18 22:00 11/25/18 05:44 Solu-Medrol IV 80 mg Q8HR [facility] Administration Montelukast Sodium 10 mg 11/25/18 18:00 Singulair PO QPM [facility] Multivitamins/Minerals 1 each 11/24/18 21:00 11/25/18 10:02 Theragran-M Tab PO 1 each QDAY [facility] Administration Ondansetron HCl 4 mg 11/24/18 20:57 Zofran IV Q8H PRN Nausea And Vomiting Oxycodone/Acetaminophen 1 tab 11/24/18 20:57 Percocet 5/325 PO Q6H PRN Pain, Moderate (4-6) Pantoprazole Sodium 40 mg 11/24/18 21:00 11/25/18 10:02 Protonix PO 40 mg QDAY [facility] Administration Pentoxifylline 400 mg 11/24/18 22:00 11/25/18 10:02 Trental PO 400 mg BID [facility] Administration Potassium Chloride 20 meq 11/24/18 22:00 11/25/18 10:04 K-Dur PO 20 meq Q12H TERESA Administration Sodium Chloride 10 ml 11/24/18 22:00 11/25/18 10:03 Sodium Chloride Flush Syringe 10 Ml IV 10 ml BID TERESA Administration Sodium Chloride 10 ml 11/24/18 20:57 11/25/18 05:44 Sodium Chloride Flush Syringe 10 Ml IV 10 ml PRN PRN Administration LINE FLUSH Tamsulosin HCl 0.4 mg 11/24/18 21:00 11/25/18 10:02 Flomax PO 0.4 mg DAILY TERESA Administration
--- NOTE | 2018-11-25 13:19 | Consultation ---
History of Present Illness Consult date: 11/25/18 Requesting physician: SIS VERONICA Reason for consult: COPD History of present illness: PULMONARY/CCM CONSULT NOTE (Full dictation # [id number]) Please see dictated notes for full details Past History Past Medical History: COPD, hypertension, hyperlipidemia Past Surgical History: valve replacement Social history: Medications and Allergies Allergies Allergy/AdvReac Type Severity Reaction Status Date / Time No Known Allergies Allergy Verified 11/11/18 08:08 Home Medications Medication Instructions Recorded Confirmed Last Taken Type RX: AtorvaSTATin [Lipitor] 20 mg PO QHS 10/14/14 11/11/18 1 Day Ago History ~11/10/18 RX: Albuterol Sulfate [Proair 90 mcg IH BID 07/04/18 11/11/18 Unknown History Respiclick] RX: Fluticasone/Salmeterol [Advair 1 each IH BID 07/04/18 11/11/18 Unknown History 500-50 Diskus] RX: Ipratropium/Albuterol Sulfate 1 spray IH BID 07/04/18 11/11/18 Unknown His tory [Combivent Respimat] RX: cloNIDine [Catapres] 0.2 mg PO BID 07/04/18 11/11/18 Unknown History RX: ALBUTEROL NEB's [Proventil 2.5 mg IH Q4HRT PRN nebu 07/09/18 11/11/18 Unknown Rx 0.083% NEBS] RX: Arformoterol Nebu [Brovana 15 mcg IH Q12HRT ml 07/09/18 11/11/18 Unknown Rx Nebu] RX: Budesonide [Pulmicort Respules] 0.5 mg IH Q12HRT nebu 07/09/18 11/11/18 Unknown Rx RX: Clopidogrel [Plavix] 75 mg PO DAILY tablet 07/09/18 11/11/18 1 Day Ago Rx ~11/10/18 RX: Famotidine [Pepcid] 20 mg PO BID tablet 07/09/18 11/11/18 Unknown Rx RX: Gabapentin [Neurontin] 300 mg PO BID capsule 07/09/18 11/11/18 Unknown Rx RX: Ipratropium/Albuterol Sulfate 1 ampul IH TIDRT ampul.neb 07/09/18 11/11/18 Unknown Rx [DUONEB *Not for PRN Use*] RX: Montelukast [Singulair] 10 mg PO QPM tablet 07/09/18 11/11/18 1 Day Ago Rx ~11/10/18 RX: Tamsulosin [Flomax] 0.4 mg PO DAILY capsule 07/09/18 11/11/18 1 Day Ago Rx ~11/10/18 RX: guaiFENesin ER [Mucinex ER] 600 mg PO BID #60 tablet 07/09/18 11/11/18 Unknown Rx RX: hydrALAZINE [Apresoline TAB] 100 mg PO BID tab 07/09/18 11/11/18 1 Day Ago Rx ~11/10/18 RX: predniSONE [Deltasone] 40 mg PO QDAY #20 tablet 07/09/18 11/11/18 Unknown Rx Hydroxyzine HCl 25 mg PO DAILY 11/11/18 11/11/18 Unknown History Pentoxifylline 400 mg PO BID 11/11/18 11/11/18 1 Day Ago History ~11/10/18 RX: Multivitamin Tab W-MINERAL 1 each PO QDAY #30 tablet 11/14/18 Unknown Rx [Multiple Vitamin/Mineral (Theragran M)] RX: Pantoprazole [Protonix TAB] 40 mg PO QDAY #30 tablet 11/14/18 Unknown Rx Active Meds: Active Medications Acetaminophen (Tylenol) 650 mg PO Q4H PRN PRN Reason: Pain MILD(1-3)/Fever >100.5/BRYAN Albuterol (Proventil) 2.5 mg IH Q4HRT PRN PRN Reason: Shortness Of Breath Albuterol/Ipratropium (Duoneb *Not For Prn Use*) 1 ampul IH QIDRT [facility] Last Admin: 11/25/18 12:54 Dose: 1 ampul Documented by: Arformoterol Tartrate (Brovana Nebu) 15 mcg IH Q12HRT [facility] Last Admin: 11/25/18 08:08 Dose: 15 mcg Documented by: Atorvastatin Calcium (Lipitor) 20 mg PO QHS [facility] Last Admin: 11/24/18 22:16 Dose: 20 mg Documented by: Budesonide (Pulmicort) 1 mg IH Q12HRT [facility] Last Admin: 11/25/18 08:09 Dose: 1 mg Documented by: Clonidine HCl (Catapres) 0.2 mg PO BID [facility] Last Admin: 11/25/18 10:03 Dose: 0.2 mg Documented by: Clopidogrel Bisulfate (Plavix) 75 mg PO DAILY [facility] Last Admin: 11/25/18 10:02 Dose: 75 mg Documented by: Enoxaparin Sodium (Lovenox) 40 mg SUB-Q QDAY [facility] Last Admin: 11/25/18 10:03 Dose: 40 mg Documented by: Furosemide (Lasix) 40 mg IV 0600,1800 [facility] Last Admin: 11/25/18 07:44 Dose: Not Given Documented by: Gabapentin (Neurontin) 300 mg PO BID [facility] Last Admin: 11/25/18 10:03 Dose: 300 mg Documented by: Guaifenesin (Mucinex Er) 600 mg PO BID [facility] Last Admin: 11/25/18 10:02 Dose: 600 mg Documented by: Hydralazine HCl (Apresoline) 100 mg PO BID [facility] Last Admin: 11/25/18 10:02 Dose: 100 mg Documented by: Hydromorphone HCl (Dilaudid) 0.5 mg IV Q3H PRN PRN Reason: Pain , Severe (7-10) Hydroxyzine HCl (Atarax) 25 mg PO QDAY [facility] Last Admin: 11/25/18 10:02 Dose: 25 mg Documented by: Levofloxacin/Dextrose (Levaquin 750mg/150ml) 750 mg in 150 mls @ 100 mls/hr IV Q48H [facility]; Protocol Methylprednisolone Sodium Succinate (Solu-Medrol) 80 mg IV Q8HR [facility] Last Admin: 11/25/18 05:44 Dose: 80 mg Documented by: Montelukast Sodium (Singulair) 10 mg PO QPM [facility] Multivitamins/Minerals (Theragran-M Tab) 1 each PO QDAY [facility] Last Admin: 11/25/18 10:02 Dose: 1 each Documented by: Ondansetron HCl (Zofran) 4 mg IV Q8H PRN PRN Reason: Nausea And Vomiting Oxycodone/Acetaminophen (Percocet 5/325) 1 tab PO Q6H PRN PRN Reason: Pain, Moderate (4-6) Pantoprazole Sodium (Protonix) 40 mg PO QDAY [facility] Last Admin: 11/25/18 10:02 Dose: 40 mg Documented by: Pentoxifylline (Trental) 400 mg PO BID [facility] Last Admin: 11/25/18 10:02 Dose: 400 mg Documented by: Potassium Chloride (K-Dur) 20 meq PO Q12H [facility] Last Admin: 11/25/18 10:04 Dose: 20 meq Documented by: Sodium Chloride (Sodium Chloride Flush Syringe 10 Ml) 10 ml IV BID [facility] Last Admin: 11/25/18 10:03 Dose: 10 ml Documented by: Sodium Chloride (Sodium Chloride Flush Syringe 10 Ml) 10 ml IV PRN PRN PRN Reason: LINE FLUSH Last Admin: 11/25/18 05:44 Dose: 10 ml Documented by: Tamsulosin HCl (Flomax) 0.4 mg PO DAILY [facility] Last Admin: 11/25/18 10:02 Dose: 0.4 mg Documented by: Physical Examination Vital signs: Vital Signs Temp Pulse Resp BP Pulse Ox 99.7 F H 137 H 24 182/85 85 11/24/18 18:16 11/24/18 18:16 11/24/18 18:16 11/24/18 18:16 11/24/18 18:16 Results - Laboratory Findings CBC and BMP: 11/24/18 18:57 11/25/18 05:07 ABG POC ABG pH 7.368 (7.35-7.45) 11/25/18 11:01 POC ABG pCO2 35.3 (35-45) 11/25/18 11:01 POC ABG pO2 77 (80-105) L 11/25/18 11:01 POC ABG HCO3 20.3 (22-26 mml/L) 11/25/18 11:01 POC ABG Total CO2 21 (23-27mmol/L) 11/25/18 11:01 POC ABG O2 Sat 95 11/25/18 11:01 PT/INR, D-dimer PT 12.3 Sec. (12.2-14.9) 11/24/18 18:57 INR 0.94 (0.87-1.13) 11/24/18 18:57 Abnormal lab findings: Abnormal Labs 11/24/18 11/24/18 11/24/18 18:57 18:57 19:48 RBC 3.49 L Hgb 10.9 L Hct 32.3 L RDW 15.8 H Plt Count 457 H Seg Neutrophils % 82.9 H Seg Neutrophils # 8.3 H POC ABG pO2 BUN 24 H Creatinine Glucose 114 H Lactic Acid 3.40 H* Troponin T Total Protein Albumin 3.8 L 11/24/18 11/25/18 11/25/18 21:21 05:07 05:07 RBC Hgb Hct RDW Plt Count Seg Neutrophils % Seg Neutrophils # POC ABG pO2 BUN 32 H Creatinine 1.8 H Glucose Lactic Acid Troponin T 0.058 H D 0.032 H D Total Protein 5.5 L D Albumin 3.5 L 11/25/18 11:01 RBC Hgb Hct RDW Plt Count Seg Neutrophils % Seg Neutrophils # POC ABG pO2 77 L BUN Creatinine Glucose Lactic Acid Troponin T Total Protein Albumin
[2018-11-25] MEDS: SINGULAIR PO SCH (17:12)
[2018-11-25] MEDS: PULMICORT IH SCH (21:02)
[2018-11-25] MEDS: LEVAQUIN 750MG/150ML 750 MG/150 ML BAG IV SCH (21:24)
--- NOTE | 2018-11-26 01:51 | Consultation ---
PULMONARY CONSULTATION CONSULTING PHYSICIAN: Dr. Angeles. REASON FOR CONSULTATION: Acute COPD exacerbation. CHIEF COMPLAINT AND HISTORY OF PRESENT ILLNESS: The patient is an 83-year-old male with past medical history indeed significant for home oxygen-dependent chronic obstructive lung disease, came to the Emergency Room yesterday after complaining of feeling cold and short of breath. He denied any cough or expectoration. He denied any chest pains. He denied nausea and vomiting. He apparently had been recently evaluated for GI bleeding in the hospital. We are asked to assist with management. When I stopped by to see him, he was actually resting in bed, breathing was still a little bit labored. He was on supplemental oxygen close to his home baseline. The patient denies any sick contacts. He stated he had been compliant with his medications. He is a former smoker, greater than [id number] tobacco smoking history, but quit smoking about 15 years ago. This really is as much of the history of presentation as I have. PAST MEDICAL HISTORY: Again, chronic obstructive lung disease, home oxygen dependent, hypertension, gastroesophageal reflux disease, arthritis, history of migraines headaches and history of a bladder tumor as well as hyperlipidemia. PAST SURGICAL HISTORY: He has had open heart surgery in the past and has had surgery to the left eye, seems like he had mitral valve repair. MEDICATIONS: He was on at the time I stopped by to see him were reviewed, pertinent medications include the following: Tylenol 650 mg p.o. q. 4 hours p.r.n. mild pain, DuoNeb nebulizer treatments nebulized q.i.d., Brovana 15 mcg nebulized q. 12 hours, Lipitor 20 mg p.o. at bedtime, Pulmicort 1 mg inhaled q. 12 hours, clonidine 0.2 mg p.o. b.i.d., Plavix 75 mg p.o. daily, Lovenox 40 mg subcutaneous daily, Lasix 40 mg IV b.i.d., Neurontin 300 mg p.o. b.i.d., Mucinex 600 mg p.o. b.i.d., hydralazine 100 mg p.o. b.i.d., Dilaudid 0.5 mg IV q. 3 hours p.r.n. severe pain, Atarax 25 mg p.o. daily, Levaquin 750 mg IV q. 48 hours, Solu-Medrol 80 mg IV q. 8 hours, Singulair 10 mg p.o. q. p.m. and a daily multivitamin as well as Zofran 4 mg IV q. 8 hours p.r.n. nausea and vomiting, Protonix 40 mg p.o. daily, Trental 400 mg p.o. b.i.d., potassium chloride 20 mEq p.o. q. 12 hours for acute replacement. ALLERGIES: No known drug allergies. DIET: Well-built gentleman. Denies acute weight loss or gain in the preceding few weeks to months. FAMILY AND SOCIAL HISTORY: Lives in the community. I believe his is in the room. No current alcohol, tobacco, or illicit drug use or abuse. He does have a [id number] remote tobacco smoking history. FAMILY HISTORY: Otherwise noncontributory. REVIEW OF SYSTEMS: Difficult to obtain. I did get some help from a colleague who speaks in the language. No gross hematochezia or melena, although he is bothered about that occurrence and wants us to keep an eye out for that. No hematemesis. No hemoptysis. No heat or cold intolerance. No polydipsia, no polyuria. Denies any new onset of leg pain or swelling either unilaterally or bilaterally. Complete 13-system review of system was obtained as best as I could. Pertinent positives and/or negatives as in body of history above, otherwise noncontributory. PHYSICAL EXAMINATION: VITAL SIGNS: At presentation, he had low-grade fever. VITAL SIGNS: Temperature 99.7 degrees Fahrenheit, pulse 137, respiratory rate as high as 39, blood pressure 182/85, O2 sats were 85% at presentation. Inspired oxygen concentration at the time was not recorded. When I stopped by to see him, O2 sats were 98% that was on 3 liters nasal cannula. GENERAL: Elderly looking male. Normocephalic, atraumatic, talking to me with slightly interrupted sentences with increased respiratory effort at rest without overt use of accessory muscles of respiration. HEAD, EYES, EARS, NOSE AND THROAT: Left pupil is post-surgical irregular. He is anicteric. No conjunctival erythema. Oropharynx is moist. No thyromegaly, no gross jugular venous distention. NECK: Grossly, no palpable lymph nodes in the supraclavicular or submandibular lymph node chains. LUNGS: Auscultation of both lung franco revealed bilateral coarse breath sounds, prolonged expiratory phase. No active wheezing at the time of my evaluation. No dullness to percussion. HEART: Heart sounds 1 and 2 are heard at the time of my evaluation, regular rate and rhythm without overt rubs or murmurs. ABDOMEN: Soft, full, bowel sounds are positive, nontender. No palpable hepatosplenomegaly. EXTREMITIES: Without overt digital clubbing or cyanosis. Trace pedal edema. Pedal pulses are palpable bilaterally. NEUROLOGIC: The right pupil is about 4 mm, reactive to light. Left pupil is reactive and regular. Extraocular muscle movements are intact. He moves all 4 extremities spontaneously. No fasciculations. No tremors. SKIN: Normal turgor without overt cellulitis or rash. LABORATORY DATA: From my review, admission white count 10,000, hemoglobin 10.9, hematocrit 32.3, platelet count 457. No manual differential. INR is within normal limits. Arterial blood gas today showed a pH of 7.37, pCO2 of 35 and pO2 of 77 that was on 2 liters nasal cannula. Serum sodium was 139 at presentation with potassium of 4.5, chloride 100, bicarbonate 24, BUN 24, creatinine 1.2, glucose was 114. Lactic acid level was elevated at 3.4. Liver function test is within normal limits. Troponin was normal, but is up to 0.058. BNP is within normal limits. Albumin is slightly low at 3.8. TSH is within normal limits. Free T4 within normal limits. LDL cholesterol was 90. Two sets of blood cultures no growth to date. I have reviewed the radiographic studies as well as the radiologist's interpretation, I am able to compare it with an x-ray from 11/11/2018, median sternotomy wires are in place, a chronic looking left lower lobe scarring or left costophrenic angle scarring or small effusion. This was present before, mildly increased interstitial markings compared to the x-ray from 11/11/2018 suggesting an element of interstitial edema, no gross pneumothorax, no gross bony fracture was seen. ASSESSMENT: 1. Acute on chronic hypoxemic respiratory failure. Baseline home O2 with 2 liters per minute. 2. Acute chronic obstructive pulmonary disease exacerbation. 3. Possible occult pneumonia. 4. Mild interstitial edema, possibly. 5. History of cardiomyopathy. 6. Hyperlipidemia. 7. Gastroesophageal reflux disease. 8. Arthritis. 9. Anemia that is normocytic. 10. Lactic acidosis at presentation that is now within normal limits. 11. Acute kidney injury, BUN is 32, creatinine 1.8 today. PLAN: We do agree with current treatment modalities. He is already showing some improvement. We will continue the long and short-acting bronchodilators with pulmonary hygiene per the respiratory therapist. I will reduce the Pulmicort dose to 0.5 mg every 12 hours. We will continue systemic steroids. I will taper it slightly to 60 mg IV q. 12 hours. I do think that I believe there is an element of interstitial edema at play. A 2D echocardiogram has been ordered appropriately. We will follow that and I see not increased serum creatinine as far as I can see. He did not receive any contrast. We need to keep an eye on the diuretics to ensure that is not worsening the azotemia and in fact, I will empirically reduce it to once daily dosing. Again, Cardiology evaluation is ongoing. He is appropriately on DVT prophylaxis. He will be placed on GI prophylaxis. We will continue the Levaquin, low suspicion for venous thromboembolic disorder in this gentleman. Flu and pneumonia vaccination will be addressed per protocol. Thank you very much for the consult Dr. Angeles. We will follow along and make further recommendations as picture progresses/becomes clearer. JOB# [id number] DANNI/DEVIN CHAPPELL
[2018-11-26] MEDS: SOLU-Medrol IV SCH ×3 (05:17→21:22)
[2018-11-26] MEDS: PULMICORT IH SCH ×2 (08:13→21:03)
[2018-11-26] MEDS: BROVANA NEBU IH SCH ×2 (08:13→21:04)
[2018-11-26] MEDS: DUONEB *Not for PRN Use IH SCH ×4 (08:13→21:04)
[2018-11-26] MEDS: APRESOLINE PO SCH ×2 (09:55→21:22)
[2018-11-26] MEDS: CATAPRES PO SCH ×2 (09:55→21:22)
[2018-11-26] MEDS: ATARAX PO SCH (09:55)
[2018-11-26] MEDS: THERAGRAN-M Tab PO SCH (09:55)
[2018-11-26] MEDS: FLOMAX PO SCH (09:55)
[2018-11-26] MEDS: LASIX IV SCH (09:55)
[2018-11-26] MEDS: PROTONIX PO SCH (09:55)
[2018-11-26] MEDS: TRENTAL PO SCH ×2 (09:55→21:22)
[2018-11-26] MEDS: MUCINEX ER PO SCH ×2 (09:55→21:21)
[2018-11-26] MEDS: NEURONTIN PO SCH ×2 (09:55→21:22)
[2018-11-26] MEDS: LOVENOX SUB-Q SCH (09:55)
[2018-11-26] MEDS: PLAVIX PO SCH (09:55)
[2018-11-26] MEDS: SODIUM CHLORIDE FLUSH SYRINGE 10 ML IV SCH ×2 (09:56→21:21)
[2018-11-26] MEDS: K-DUR PO SCH ×2 (09:57→21:22)
--- NOTE | 2018-11-26 10:40 | Progress Note ---
Assessment and Plan 1. Mild pulmonary vascular congestion on chest x-ray 2. Chronic obstructive pulmonary disease 3. Chronic cor-pulmonale 4. Acute kidney injury 5. Essential hypertension Plan. Preliminary echocardiogram result shows Mild RV/RA dialtion, mild concentric LVH with normal global ejection fraction approximately 50%. Subjective Date of service: 11/26/18 Interval history: Patient complains of tremulousness. Objective Vital Signs Temp Pulse Pulse Resp Resp BP Pulse Ox 11/26/18 08:58 98.3 F 105 H 20 105/48 98 11/26/18 08:13 87 20 98 11/26/18 04:57 98.2 F 11/26/18 04:55 94 H 20 107/53 98 11/25/18 23:27 97.5 F L 11/25/18 23:26 96 H 22 107/51 98 11/25/18 22:24 96 11/25/18 22:00 93 H 11/25/18 21:02 92 H 24 98 11/25/18 20:59 97.5 F L 11/25/18 20:58 92 H 22 116/59 98 11/25/18 16:41 95 H 22 11/25/18 16:31 93 H 22 11/25/18 16:05 98.4 F 91 H 24 112/57 99 11/25/18 13:22 97.6 F 95 H 18 104/51 98 11/25/18 13:05 88 20 11/25/18 12:54 87 20 11/25/18 10:51 17 - Physical Examination General: Appears Well HEENT: Positive: PERRL, Normocephaly. Negative: Mucus Membranes Moist Neck: Positive: neck supple, trachea midline. Negative: JVD/HJR Cardiac: Positive: Regular Rate, S1/S2, PMI, Laterally Displaced Lungs: Positive: clear to auscultation, No Wheeze, Rales, Rhonchi Neuro: Positive: Grossly Intact Abdomen: Positive: Unremarkable, Active Bowel Sounds Extremities: Absent: edema
--- NOTE | 2018-11-26 14:23 | Progress Note ---
Assessment and Plan Acute on chronic hypoxemic respiratory failure. Baseline home O2 with 2liters per minute. Acute chronic obstructive pulmonary disease exacerbation. Possible occult pneumonia. Mild interstitial edema, possibly. History of cardiomyopathy. Hyperlipidemia. Gastroesophageal reflux disease. Arthritis. Anemia that is normocytic. Lactic acidosis at presentation that is now within normal limits. Acute kidney injury, BUN is 32, creatinine 1.8 today - continue supplemental oxygen to keep sats > 90% - continue systemic steroids with slow taper - continue bronchodilators with pulmonary hygiene per RT - avoid nephrotoxic medications and agents - optimize heart failure therapy per cardiology - prn BIPAP - GI & VTE prophylaxis - empiric AB's - continue otrher care per attending ... re-evaluate in am & prn FULL CODE STATUS Subjective Date of service: 11/26/18 Principal diagnosis: Ac on ch hypoxemic resp failure; AE-COPD; Possible occult PNA; CARRIE Interval history: Patient is seen today for: Ac on ch hypoxemic resp failure; AE-COPD; Possible occult pneumonia; Mild interstitial edema, possibly; History of cardiomyopathy; Hyperlipidemia; GERD; Arthritis; Anemia that is normocytic; Acute kidney injury Seen and examined at bedside; 24hour events reviewed; nursing and respiratory care staff consulted; no adverse overnight events reported to me; looks and feels better; denies acute chest pains or palpitations; No N/V/F/C Objective Vital Signs - 12hr 11/26/18 11/26/18 11/26/18 04:55 04:57 08:13 Temperature 98.2 F Pulse Rate 94 H Pulse Rate [ 87 Anterior Bilateral Throughout] Respiratory 20 Rate Respiratory 20 Rate [Anterior Bilateral Throughout] Blood Pressure 107/53 O2 Sat by Pulse 98 98 Oximetry 11/26/18 11/26/18 11/26/18 08:58 10:00 11:00 Temperature 98.3 F Pulse Rate 105 H 110 H Pulse Rate [ Anterior Bilateral Throughout] Respiratory 20 18 Rate Respiratory Rate [Anterior Bilateral Throughout] Blood Pressure 105/48 O2 Sat by Pulse 98 96 Oximetry 11/26/18 11/26/18 11:07 11:18 Temperature Pulse Rate Pulse Rate [ 95 H 94 H Anterior Bilateral Throughout] Respiratory Rate Respiratory 20 20 Rate [Anterior Bilateral Throughout] Blood Pressure O2 Sat by Pulse Oximetry Constitutional: no acute distress, other (elderly looking AM, normocephalic and atraumatic with mildly increased resp efort at rest) Eyes: non-icteric ENT: oropharynx moist Neck: supple, no lymphadenopathy, no JVD Effort: mildly labored Ascultation: Bilateral: diminished breath sounds, rhonchi Percussion: Bilateral: not dull Cardiovascular: regular rate and rhythm Gastrointestinal: normoactive bowel sounds, soft, non-tender, non-distended Integumentary: normal Extremities: no cyanosis, pink and warm, pulses normal, no ischemia or petechiae, edema Neurologic: normal mental status, non-focal exam (grossly), pupils equal and round, CN II-XII normal Psychiatric: mood appropriate, affect normal CBC and BMP: 11/24/18 18:57 11/28/18 07:13 ABG, PT/INR, D-dimer: ABG POC ABG pH 7.368 (7.35-7.45) 11/25/18 11:01 POC ABG pCO2 35.3 (35-45) 11/25/18 11:01 POC ABG pO2 77 (80-105) L 11/25/18 11:01 POC ABG HCO3 20.3 (22-26 mml/L) 11/25/18 11:01 POC ABG Total CO2 21 (23-27mmol/L) 11/25/18 11:01 POC ABG O2 Sat 95 11/25/18 11:01 PT/INR, D-dimer PT 12.3 Sec. (12.2-14.9) 11/24/18 18:57 INR 0.94 (0.87-1.13) 11/24/18 18:57 Abnormal lab findings: Abnormal Labs 11/24/18 11/24/18 11/24/18 18:57 18:57 19:48 RBC 3.49 L Hgb 10.9 L Hct 32.3 L RDW 15.8 H Plt Count 457 H Seg Neutrophils % 82.9 H Seg Neutrophils # 8.3 H POC ABG pO2 BUN 24 H Creatinine Glucose 114 H Lactic Acid 3.40 H* Troponin T C-Reactive Protein Total Protein Albumin 3.8 L 11/24/18 11/25/18 11/25/18 21:21 05:07 05:07 RBC Hgb Hct RDW Plt Count Seg Neutrophils % Seg Neutrophils # POC ABG pO2 BUN 32 H Creatinine 1.8 H Glucose Lactic Acid Troponin T 0.058 H D 0.032 H D C-Reactive Protein Total Protein 5.5 L D Albumin 3.5 L 11/25/18 11/25/18 11:01 14:57 RBC Hgb Hct RDW Plt Count Seg Neutrophils % Seg Neutrophils # POC ABG pO2 77 L BUN Creatinine Glucose Lactic Acid Troponin T C-Reactive Protein 20.90 H Total Protein Albumin Chest x-ray: image reviewed (borderline cardiomegaly) Allied health notes reviewed: nursing
[2018-11-26] MEDS: SINGULAIR PO SCH (17:17)
--- NOTE | 2018-11-26 18:31 | Progress Note ---
Assessment and Plan Assessment and plan: --Acute hypoxic respiratory failure; secondary to COPD exacerbation Continue excision nebulizers IV steroids --Acute exacerbation of COPD; Oxygen titrated consistent with 90% Nebulizers, IV steroids, inhalational steroids Pulmonary evaluation --Non-ST elevation IL; positive troponins Continue current cardiac medications, cardiology following --Possible acute on chronic congestive heart failure Anti-failure medications, cardiology following --Lactic acidosis; resolved --Peripheral arterial disease; continue Current home medications --Gastroesophageal reflux disease; Protonix --Acute kidney injury; vasomotor nephropathy closely monitor renal function,Avoid nephrotoxins, [employer] following --Hypertension: Controlled on current regimen Closely monitor blood pressures and adjust the medications as needed --DVT prophylaxis; Lovenox --Full Code Plan of care is reviewed with the patient and his nurse History Interval history: Patient seen and examined medical records reviewe Patient feels slightly better, mild shortness of breath Vital signs reviewed Hospitalist Physical - Constitutional Vitals: Temp Pulse Resp BP Pulse Ox 97.9 F 97 H 18 117/56 98 11/26/18 16:45 11/26/18 16:45 11/26/18 16:45 11/26/18 16:45 11/26/18 16:45 General appearance: Present: mild distress, well-nourished - EENT Eyes: Present: PERRL, EOM intact - Neck Neck: Present: supple, normal ROM - Respiratory Respiratory effort: normal Respiratory: bilateral: diminished, negative: rales, rhonchi, wheezing - Cardiovascular Rhythm: regular Heart Sounds: Present: S1 & S2 - Extremities Extremities: no ischemia, pulses intact, pulses symmetrical - Abdominal General gastrointestinal: soft, non-tender, non-distended - Integumentary Integumentary: Present: clear, warm - Psychiatric Psychiatric: appropriate mood/affect, cooperative - Neurologic Neurologic: moves all extremities Results - Labs CBC & Chem 7: 11/24/18 18:57 11/25/18 05:07 Labs: Laboratory Last Values WBC 10.0 K/mm3 (4.5-11.0) 11/24/18 18:57 RBC 3.49 M/mm3 (3.65-5.03) L 11/24/18 18:57 Hgb 10.9 gm/dl (11.8-15.2) L 11/24/18 18:57 Hct 32.3 % (35.5-45.6) L 11/24/18 18:57 MCV 93 fl (84-94) 11/24/18 18:57 MCH 31 pg (28-32) 11/24/18 18:57 MCHC 34 % (32-34) 11/24/18 18:57 RDW 15.8 % (13.2-15.2) H 11/24/18 18:57 Plt Count 457 K/mm3 (140-440) H 11/24/18 18:57 Lymph % (Auto) 14.4 % (13.4-35.0) 11/24/18 18:57 [place] % (Auto) 1.4 % (0.0-7.3) 11/24/18 18:57 Eos % (Auto) 1.0 % (0.0-4.3) 11/24/18 18:57 Baso % (Auto) 0.3 % (0.0-1.8) 11/24/18 18:57 Lymph # 1.4 K/mm3 (1.2-5.4) 11/24/18 18:57 [place] # 0.1 K/mm3 (0.0-0.8) 11/24/18 18:57 Eos # 0.1 K/mm3 (0.0-0.4) 11/24/18 18:57 Baso # 0.0 K/mm3 (0.0-0.1) 11/24/18 18:57 Seg Neutrophils % 82.9 % (40.0-70.0) H 11/24/18 18:57 Seg Neutrophils # 8.3 K/mm3 (1.8-7.7) H 11/24/18 18:57 PT 12.3 Sec. (12.2-14.9) 11/24/18 18:57 INR 0.94 (0.87-1.13) 11/24/18 18:57 APTT 24.4 Sec. (24.2-36.6) 11/24/18 18:57 POC ABG pH 7.368 (7.35-7.45) 11/25/18 11:01 POC ABG pCO2 35.3 (35-45) 11/25/18 11:01 POC ABG pO2 77 (80-105) L 11/25/18 11:01 POC ABG HCO3 20.3 (22-26 mml/L) 11/25/18 11:01 POC ABG Total CO2 21 (23-27mmol/L) 11/25/18 11:01 POC ABG O2 Sat 95 11/25/18 11:01 POC ABG Base Excess -5 ((-2) - (+3)mmol/L) 11/25/18 11:01 2 % 11/25/18 11:01 Sodium 137 mmol/L (137-145) 11/25/18 05:07 Potassium 4.9 mmol/L (3.6-5.0) 11/25/18 05:07 Chloride 101.4 mmol/L (98-107) 11/25/18 05:07 Carbon Dioxide 23 mmol/L (22-30) 11/25/18 05:07 18 mmol/L 11/25/18 05:07 BUN 32 mg/dL (9-20) H 11/25/18 05:07 1.8 mg/dL (0.8-1.5) H 11/25/18 05:07 Estimated GFR 36 ml/min 11/25/18 05:07 18 % 11/25/18 05:07 Glucose 96 mg/dL (75-100) 11/25/18 05:07 4.8 % (4-6) 11/24/18 21:21 Lactic Acid 1.70 mmol/L (0.7-2.0) 11/24/18 21:21 Calcium 8.5 mg/dL (8.4-10.2) 11/25/18 05:07 0.60 mg/dL (0.1-1.2) 11/25/18 05:07 AST 19 units/L (5-40) 11/25/18 05:07 ALT 19 units/L (7-56) 11/25/18 05:07 41 units/L (35-129) 11/25/18 05:07 56 units/L (55-170) 11/24/18 18:57 CK-MB (CK-2) 1.8 ng/mL (0.0-4.0) 11/24/18 18:57 CK-MB (CK-2) Rel Index 3.2 (0-4) 11/24/18 18:57 0.032 ng/mL (0.00-0.029) H D 11/25/18 05:07 20.90 mg/dL (0.00-1.30) H 11/25/18 14:57 NT-Pro-B Natriuret Pep 289.1 pg/mL (0-900) 11/24/18 18:57 5.5 g/dL (6.3-8.2) L D 11/25/18 05:07 3.5 g/dL (3.9-5) L 11/25/18 05:07 1.8 % 11/25/18 05:07 Triglycerides 67 mg/dL (2-149) 11/24/18 21:21 Cholesterol 146 mg/dL (50-199) 11/24/18 21:21 90 mg/dL (50-130) 11/24/18 21:21 54 mg/dL (40-59) 11/24/18 21:21 2.70 % 11/24/18 21:21 TSH 1.550 mlU/mL (0.270-4.200) 11/24/18 18:57 Free T4 1.29 ng/dL (0.76-1.46) 11/24/18 18:57 Active Medications - Current Medications Current Medications: Generic Name Dose Route Start Last Admin Trade Name Freq PRN Reason Stop Dose Admin Acetaminophen 650 mg 11/24/18 20:57 Tylenol PO Q4H PRN Pain MILD(1-3)/Fever >100.5/BRYAN Albuterol 2.5 mg 11/24/18 20:47 Proventil IH Q4HRT PRN Shortness Of Breath Albuterol/Ipratropium 1 ampul 11/25/18 08:00 11/26/18 15:58 Duoneb *Not For Prn Use* IH 1 ampul QIDRT TERESA Administration Arformoterol Tartrate 15 mcg 11/24/18 21:00 11/26/18 08:13 Brovana Nebu IH 15 mcg Q12HRT TERESA Administration Atorvastatin Calcium 20 mg 11/24/18 22:00 11/25/18 21:24 Lipitor PO 20 mg QHS TERESA Administration Budesonide 0.5 mg 11/25/18 14:54 11/26/18 08:13 Pulmicort IH 0.5 mg Q12HRT TERESA Administration Clonidine HCl 0.2 mg 11/24/18 22:00 11/26/18 09:55 Catapres PO 0.2 mg BID TERESA Administration Clopidogrel Bisulfate 75 mg 11/24/18 21:00 11/26/18 09:55 Plavix PO 75 mg DAILY TERESA Administration Enoxaparin Sodium 40 mg 11/24/18 21:00 11/26/18 09:55 Lovenox SUB-Q 40 mg QDAY TERESA Administration Furosemide 40 mg 11/26/18 10:00 11/26/18 09:55 Lasix IV 40 mg DAILY TERESA Administration Gabapentin 300 mg 11/24/18 22:00 11/26/18 09:55 Neurontin PO 300 mg BID TERESA Administration Guaifenesin 600 mg 11/24/18 22:00 11/26/18 09:55 Mucinex Er PO 600 mg BID TERESA Administration Hydralazine HCl 100 mg 11/24/18 22:00 11/26/18 09:55 Apresoline PO 100 mg BID TERESA Administration Hydromorphone HCl 0.5 mg 11/24/18 20:57 Dilaudid IV Q3H PRN Pain , Severe (7-10) Hydroxyzine HCl 25 mg 11/25/18 10:00 11/26/18 09:55 Atarax PO 25 mg QDAY TERESA Administration Levofloxacin/Dextrose 750 mg in 150 mls @ 100 mls/hr 11/25/18 20:00 11/25/18 21:24 Levaquin 750mg/150ml IV 100 mls/hr Q48H TERESA Administration Protocol Methylprednisolone Sodium Succinate 60 mg 11/25/18 14:54 11/26/18 15:22 Solu-Medrol IV 60 mg Q8HR TERESA Administration Montelukast Sodium 10 mg 11/25/18 18:00 11/26/18 17:17 Singulair PO 10 mg QPM TERESA Administration Multivitamins/Minerals 1 each 11/24/18 21:00 11/26/18 09:55 Theragran-M Tab PO 1 each QDAY TERESA Administration Ondansetron HCl 4 mg 11/24/18 20:57 Zofran IV Q8H PRN Nausea And Vomiting Oxycodone/Acetaminophen 1 tab 11/24/18 20:57 Percocet 5/325 PO Q6H PRN Pain, Moderate (4-6) Pantoprazole Sodium 40 mg 11/24/18 21:00 11/26/18 09:55 Protonix PO 40 mg QDAY TERESA Administration Pentoxifylline 400 mg 11/24/18 22:00 11/26/18 09:55 Trental PO 400 mg BID TERESA Administration Potassium Chloride 20 meq 11/24/18 22:00 11/26/18 09:57 K-Dur PO 20 meq Q12H TERESA Administration Sodium Chloride 10 ml 11/24/18 22:00 11/26/18 09:56 Sodium Chloride Flush Syringe 10 Ml IV 10 ml BID TERESA Administration Sodium Chloride 10 ml 11/24/18 20:57 11/25/18 05:44 Sodium Chloride Flush Syringe 10 Ml IV 10 ml PRN PRN Administration LINE FLUSH Tamsulosin HCl 0.4 mg 11/24/18 21:00 11/26/18 09:55 Flomax PO 0.4 mg DAILY TERESA Administration
[2018-11-27] MEDS: SOLU-Medrol IV SCH ×3 (05:59→23:45)
[2018-11-27] MEDS: DUONEB *Not for PRN Use IH SCH ×3 (08:03→20:17)
[2018-11-27] MEDS: BROVANA NEBU IH SCH ×2 (08:03→20:17)
[2018-11-27] MEDS: PULMICORT IH SCH ×2 (08:03→20:17)
[2018-11-27] MEDS: APRESOLINE PO SCH ×2 (11:23→23:44)
[2018-11-27] MEDS: THERAGRAN-M Tab PO SCH (11:24)
[2018-11-27] MEDS: FLOMAX PO SCH (11:24)
[2018-11-27] MEDS: LOVENOX SUB-Q SCH (11:24)
[2018-11-27] MEDS: MUCINEX ER PO SCH ×2 (11:24→23:44)
[2018-11-27] MEDS: PLAVIX PO SCH (11:24)
[2018-11-27] MEDS: ATARAX PO SCH (11:25)
[2018-11-27] MEDS: NEURONTIN PO SCH ×2 (11:25→23:44)
[2018-11-27] MEDS: CATAPRES PO SCH ×2 (11:25→23:44)
[2018-11-27] MEDS: PROTONIX PO SCH (11:26)
[2018-11-27] MEDS: LASIX IV SCH (11:26)
[2018-11-27] MEDS: SODIUM CHLORIDE FLUSH SYRINGE 10 ML IV SCH ×2 (11:28→23:45)
[2018-11-27] MEDS: TRENTAL PO SCH ×2 (13:02→23:44)
--- NOTE | 2018-11-27 14:06 | Progress Note ---
Assessment and Plan COPD exacerbation Hypertension Acute renal failure An echocardiogram reports a mildly decreased left ventricular systolic function, ejection fraction 40-45%. Conservative cardiac management. Subjective Date of service: 11/27/18 Principal diagnosis: Ac on ch hypoxemic resp failure; AE-COPD; Possible occult PNA; CARRIE Interval history: Patient is non-Frisian speaking. Patient is resting in bed comfortably. Still with active wheezing. Objective Vital Signs Temp Pulse Pulse Resp Resp BP Pulse Ox 11/27/18 13:58 92 H 20 11/27/18 11:48 98.2 F 95 H 18 143/76 98 11/27/18 11:25 92 H 149/80 11/27/18 11:06 98 11/27/18 08:27 92 H 18 11/27/18 08:07 98.2 F 96 H 18 149/80 97 11/27/18 08:03 97 H 20 98 11/27/18 04:12 98.0 F 93 H 18 127/64 99 11/26/18 23:31 98.0 F 98 H 18 116/57 98 11/26/18 23:10 98 11/26/18 22:00 92 H 11/26/18 21:23 85 18 11/26/18 19:03 98.4 F 91 H 18 110/57 99 11/26/18 16:45 97.9 F 97 H 18 117/56 98 11/26/18 16:08 93 H 20 11/26/18 15:58 94 H 20 - Physical Examination General: No Apparent Distress HEENT: Positive: PERRL Neck: Positive: trachea midline Lungs: Positive: Decreased Breath Sounds, Wheezes Neuro: Positive: Grossly Intact Extremities: Absent: edema
--- NOTE | 2018-11-27 17:44 | Progress Note ---
Assessment and Plan Patient is alert and awake. Resting on 3L O2. O2 saturation 98%. No acute respiratory distress at rest. Afebrile. BP 143/72. - Patient Problems (1) Acute and chronic respiratory failure ([id number]) Current Visit: No Status: Acute Plan to address problem: O2 3L nasal canula. Albuterol and atrovent aierosol treatment q 6 hours Continue IV salomedrol Continue Levaquin. Continue S/C lovenox Continue protonix ABGs on room air. (2) COPD with exacerbation Current Visit: No Status: Acute Plan to address problem: O2 3L nasal canula. Albuterol and atrovent aierosol treatment q 6 hours Continue IV salomedrol Continue Levaquin. Continue S/C lovenox Continue protonix PFTs as an outpatient. Recommend CAT scan of chest with contrast once renal function improves. (3) Accelerated hypertension Current Visit: No Status: Acute Plan to address problem: Management as per primary care. (4) Anemia Current Visit: No Status: Acute Qualifiers: Anemia type: iron deficiency Iron deficiency anemia type: unspecified iron deficiency Qualified Code(s): D50.9 - Iron deficiency anemia, unspecified Plan to address problem: Management as per primary care. (5) Bronchitis Current Visit: No Status: Acute Plan to address problem: Patient is on Levaquin (6) Diastolic CHF, acute Current Visit: No Status: Acute Plan to address problem: Patient is on lasix. Management as per cardiology. Chest xray PA and Lateral to graves. Subjective Date of service: 11/27/18 Principal diagnosis: Ac on ch hypoxemic resp failure; AE-COPD; Possible occult PNA; CARRIE Interval history: Patient is alert and awake. Resting on 3L O2. O2 saturation 98%. No acute respiratory distress at rest. Afebrile. BP 143/72. Objective Vital Signs - 12hr 11/27/18 11/27/18 11/27/18 08:03 08:07 08:27 Temperature 98.2 F Pulse Rate 96 H Pulse Rate [ 97 H 92 H Anterior Bilateral Throughout] Respiratory 18 Rate Respiratory 20 18 Rate [Anterior Bilateral Throughout] Blood Pressure 149/80 O2 Sat by Pulse 98 97 Oximetry 11/27/18 11/27/18 11/27/18 10:00 11:00 11:06 Temperature Pulse Rate 94 H Pulse Rate [ Anterior Bilateral Throughout] Respiratory Rate Respiratory Rate [Anterior Bilateral Throughout] Blood Pressure O2 Sat by Pulse 98 98 Oximetry 11/27/18 11/27/18 11/27/18 11:25 11:48 13:58 Temperature 98.2 F Pulse Rate 92 H 95 H Pulse Rate [ 92 H Anterior Bilateral Throughout] Respiratory 18 Rate Respiratory 20 Rate [Anterior Bilateral Throughout] Blood Pressure 149/80 143/76 O2 Sat by Pulse 98 Oximetry 11/27/18 14:16 Temperature Pulse Rate Pulse Rate [ 83 Anterior Bilateral Throughout] Respiratory Rate Respiratory 20 Rate [Anterior Bilateral Throughout] Blood Pressure O2 Sat by Pulse Oximetry Constitutional: no acute distress, alert Eyes: non-icteric ENT: oropharynx moist Neck: supple Ascultation: Bilateral: rales Cardiovascular: regular rate and rhythm Gastrointestinal: normoactive bowel sounds, soft, non-tender Integumentary: normal Extremities: no cyanosis, other (trace edema) Neurologic: normal mental status, non-focal exam, pupils equal and round, CN II- XII normal Psychiatric: mood appropriate, affect normal CBC and BMP: 11/24/18 18:57 11/25/18 05:07 ABG, PT/INR, D-dimer: ABG POC ABG pH 7.368 (7.35-7.45) 11/25/18 11:01 POC ABG pCO2 35.3 (35-45) 11/25/18 11:01 POC ABG pO2 77 (80-105) L 11/25/18 11:01 POC ABG HCO3 20.3 (22-26 mml/L) 11/25/18 11:01 POC ABG Total CO2 21 (23-27mmol/L) 11/25/18 11:01 POC ABG O2 Sat 95 11/25/18 11:01 PT/INR, D-dimer PT 12.3 Sec. (12.2-14.9) 11/24/18 18:57 INR 0.94 (0.87-1.13) 11/24/18 18:57 Abnormal lab findings: Abnormal Labs 11/24/18 11/24/18 11/24/18 18:57 18:57 19:48 RBC 3.49 L Hgb 10.9 L Hct 32.3 L RDW 15.8 H Plt Count 457 H Seg Neutrophils % 82.9 H Seg Neutrophils # 8.3 H POC ABG pO2 BUN 24 H Creatinine Glucose 114 H Lactic Acid 3.40 H* Troponin T C-Reactive Protein Total Protein Albumin 3.8 L 11/24/18 11/25/18 11/25/18 21:21 05:07 05:07 RBC Hgb Hct RDW Plt Count Seg Neutrophils % Seg Neutrophils # POC ABG pO2 BUN 32 H Creatinine 1.8 H Glucose Lactic Acid Troponin T 0.058 H D 0.032 H D C-Reactive Protein Total Protein 5.5 L D Albumin 3.5 L 11/25/18 11/25/18 11:01 14:57 RBC Hgb Hct RDW Plt Count Seg Neutrophils % Seg Neutrophils # POC ABG pO2 77 L BUN Creatinine Glucose Lactic Acid Troponin T C-Reactive Protein 20.90 H Total Protein Albumin Chest x-ray: report reviewed (Mild interstitial pulmonary edema.), image reviewed
--- NOTE | 2018-11-27 18:44 | Progress Note ---
Assessment and Plan Assessment and plan: 53-year-old male patient with significant past medical history of hypertension , COPD, dyslipidemia ,valvuloplasty ,GERD arthritis bladder tumor was admitted to the emergency room with worsening shortness of breath of 1 day duration.On evaluation Patient was noted to be in acute exacerbation of COPD with acute hypoxic respiratory failure.Also acute kidney injury, acute systolic congestive heart failure, Pulmonary cardiology following the patient --Acute hypoxic respiratory failure; secondary to COPD exacerbation Continue nebulizers, oxygen, IV steroids, IV antibiotics --Acute exacerbation of COPD; Oxygen, Nebulizers, IV steroids, inhalational steroids Pulmonary following --Non-ST elevation KS; positive troponins Continue current cardiac medications, cardiology rec conservative management --Acute combined systolic and diastolic congestive heart failure Continue Anti-failure medications, --Lactic acidosis; resolved --Peripheral arterial disease; continue Antiplatelets and statins --Gastroesophageal reflux disease; Protonix --Acute kidney injury; vasomotor nephropathy closely monitor renal function,Avoid nephrotoxins, Consult Director Of Digital Marketing if no improvement --Hypertension: well Controlled Continue current antihypertensives --DVT prophylaxis; Lovenox --Full Code status Plan of care is reviewed with the patient, family member and his nurse Disposition; follow cardiology pulmonology recommendations Possible discharge in 1-2 days if stable History Interval history: Patient seen and examined Patient feels slightly better Mild shortness of breath Not in acute distress Vital signs reviewed Hospitalist Physical - Constitutional Vitals: Temp Pulse Resp BP Pulse Ox 98.2 F 83 20 143/76 98 11/27/18 11:48 11/27/18 14:16 11/27/18 14:16 11/27/18 11:48 11/27/18 11:48 General appearance: Present: mild distress, well-nourished - EENT Eyes: Present: PERRL, EOM intact - Neck Neck: Present: supple, normal ROM - Respiratory Respiratory effort: normal Respiratory: bilateral: diminished, wheezing, negative: rales, rhonchi - Cardiovascular Rhythm: regular Heart Sounds: Present: S1 & S2 - Extremities Extremities: no ischemia Extremity abnormal: edema - Abdominal General gastrointestinal: soft, non-tender, non-distended, normal bowel sounds - Integumentary Integumentary: Present: clear, warm - Psychiatric Psychiatric: appropriate mood/affect, cooperative - Neurologic Neurologic: moves all extremities Results - Labs CBC & Chem 7: 11/24/18 18:57 11/25/18 05:07 Labs: Laboratory Last Values WBC 10.0 K/mm3 (4.5-11.0) 11/24/18 18:57 RBC 3.49 M/mm3 (3.65-5.03) L 11/24/18 18:57 Hgb 10.9 gm/dl (11.8-15.2) L 11/24/18 18:57 Hct 32.3 % (35.5-45.6) L 11/24/18 18:57 MCV 93 fl (84-94) 11/24/18 18:57 MCH 31 pg (28-32) 11/24/18 18:57 MCHC 34 % (32-34) 11/24/18 18:57 RDW 15.8 % (13.2-15.2) H 11/24/18 18:57 Plt Count 457 K/mm3 (140-440) H 11/24/18 18:57 Lymph % (Auto) 14.4 % (13.4-35.0) 11/24/18 18:57 [place] % (Auto) 1.4 % (0.0-7.3) 11/24/18 18:57 Eos % (Auto) 1.0 % (0.0-4.3) 11/24/18 18:57 Baso % (Auto) 0.3 % (0.0-1.8) 11/24/18 18:57 Lymph # 1.4 K/mm3 (1.2-5.4) 11/24/18 18:57 [place] # 0.1 K/mm3 (0.0-0.8) 11/24/18 18:57 Eos # 0.1 K/mm3 (0.0-0.4) 11/24/18 18:57 Baso # 0.0 K/mm3 (0.0-0.1) 11/24/18 18:57 Seg Neutrophils % 82.9 % (40.0-70.0) H 11/24/18 18:57 Seg Neutrophils # 8.3 K/mm3 (1.8-7.7) H 11/24/18 18:57 PT 12.3 Sec. (12.2-14.9) 11/24/18 18:57 INR 0.94 (0.87-1.13) 11/24/18 18:57 APTT 24.4 Sec. (24.2-36.6) 11/24/18 18:57 POC ABG pH 7.368 (7.35-7.45) 11/25/18 11:01 POC ABG pCO2 35.3 (35-45) 11/25/18 11:01 POC ABG pO2 77 (80-105) L 11/25/18 11:01 POC ABG HCO3 20.3 (22-26 mml/L) 11/25/18 11:01 POC ABG Total CO2 21 (23-27mmol/L) 11/25/18 11:01 POC ABG O2 Sat 95 11/25/18 11:01 POC ABG Base Excess -5 ((-2) - (+3)mmol/L) 11/25/18 11:01 2 % 11/25/18 11:01 Sodium 137 mmol/L (137-145) 11/25/18 05:07 Potassium 4.9 mmol/L (3.6-5.0) 11/25/18 05:07 Chloride 101.4 mmol/L (98-107) 11/25/18 05:07 Carbon Dioxide 23 mmol/L (22-30) 11/25/18 05:07 18 mmol/L 11/25/18 05:07 BUN 32 mg/dL (9-20) H 11/25/18 05:07 1.8 mg/dL (0.8-1.5) H 11/25/18 05:07 Estimated GFR 36 ml/min 11/25/18 05:07 18 % 11/25/18 05:07 Glucose 96 mg/dL (75-100) 11/25/18 05:07 4.8 % (4-6) 11/24/18 21:21 Lactic Acid 1.70 mmol/L (0.7-2.0) 11/24/18 21:21 Calcium 8.5 mg/dL (8.4-10.2) 11/25/18 05:07 0.60 mg/dL (0.1-1.2) 11/25/18 05:07 AST 19 units/L (5-40) 11/25/18 05:07 ALT 19 units/L (7-56) 11/25/18 05:07 41 units/L (35-129) 11/25/18 05:07 56 units/L (55-170) 11/24/18 18:57 CK-MB (CK-2) 1.8 ng/mL (0.0-4.0) 11/24/18 18:57 CK-MB (CK-2) Rel Index 3.2 (0-4) 11/24/18 18:57 0.032 ng/mL (0.00-0.029) H D 11/25/18 05:07 20.90 mg/dL (0.00-1.30) H 11/25/18 14:57 NT-Pro-B Natriuret Pep 289.1 pg/mL (0-900) 11/24/18 18:57 5.5 g/dL (6.3-8.2) L D 11/25/18 05:07 3.5 g/dL (3.9-5) L 11/25/18 05:07 1.8 % 11/25/18 05:07 Triglycerides 67 mg/dL (2-149) 11/24/18 21:21 Cholesterol 146 mg/dL (50-199) 11/24/18 21:21 90 mg/dL (50-130) 11/24/18 21:21 54 mg/dL (40-59) 11/24/18 21:21 2.70 % 11/24/18 21:21 TSH 1.550 mlU/mL (0.270-4.200) 11/24/18 18:57 Free T4 1.29 ng/dL (0.76-1.46) 11/24/18 18:57 Active Medications - Current Medications Current Medications: Generic Name Dose Route Start Last Admin Trade Name Freq PRN Reason Stop Dose Admin Acetaminophen 650 mg 11/24/18 20:57 Tylenol PO Q4H PRN Pain MILD(1-3)/Fever >100.5/BRYAN Albuterol 2.5 mg 11/24/18 20:47 Proventil IH Q4HRT PRN Shortness Of Breath Albuterol/Ipratropium 1 ampul 11/27/18 14:00 11/27/18 13:58 Duoneb *Not For Prn Use* IH 1 ampul TIDRT TERESA Administration Arformoterol Tartrate 15 mcg 11/24/18 21:00 11/27/18 08:03 Brovana Nebu IH 15 mcg Q12HRT TERESA Administration Atorvastatin Calcium 20 mg 11/24/18 22:00 11/26/18 21:22 Lipitor PO 20 mg QHS TERESA Administration Budesonide 0.5 mg 11/25/18 14:54 11/27/18 08:03 Pulmicort IH 0.5 mg Q12HRT TERESA Administration Clonidine HCl 0.2 mg 11/24/18 22:00 11/27/18 11:25 Catapres PO 0.2 mg BID TERESA Administration Clopidogrel Bisulfate 75 mg 11/24/18 21:00 11/27/18 11:24 Plavix PO 75 mg DAILY TERESA Administration Enoxaparin Sodium 30 mg 11/28/18 10:00 Lovenox SUB-Q QDAY TERESA Furosemide 40 mg 11/26/18 10:00 11/27/18 11:26 Lasix IV 40 mg DAILY TERESA Administration Gabapentin 300 mg 11/24/18 22:00 11/27/18 11:25 Neurontin PO 300 mg BID TERESA Administration Guaifenesin 600 mg 11/24/18 22:00 11/27/18 11:24 Mucinex Er PO 600 mg BID TERESA Administration Hydralazine HCl 100 mg 11/24/18 22:00 11/27/18 11:23 Apresoline PO Not Given BID [facility] Hydromorphone HCl 0.5 mg 11/24/18 20:57 Dilaudid IV Q3H PRN Pain , Severe (7-10) Hydroxyzine HCl 25 mg 11/25/18 10:00 11/27/18 11:25 Atarax PO 25 mg QDAY TERESA Administration Levofloxacin/Dextrose 750 mg in 150 mls @ 100 mls/hr 11/25/18 20:00 11/25/18 21:24 Levaquin 750mg/150ml IV 100 mls/hr Q48H TERESA Administration Protocol Methylprednisolone Sodium Succinate 60 mg 11/25/18 14:54 11/27/18 13:23 Solu-Medrol IV 60 mg Q8HR TERESA Administration Montelukast Sodium 10 mg 11/25/18 18:00 11/26/18 17:17 Singulair PO 10 mg QPM TERESA Administration Multivitamins/Minerals 1 each 11/24/18 21:00 11/27/18 11:24 Theragran-M Tab PO 1 each QDAY TERESA Administration Ondansetron HCl 4 mg 11/24/18 20:57 Zofran IV Q8H PRN Nausea And Vomiting Oxycodone/Acetaminophen 1 tab 11/24/18 20:57 Percocet 5/325 PO Q6H PRN Pain, Moderate (4-6) Pantoprazole Sodium 40 mg 11/24/18 21:00 11/27/18 11:26 Protonix PO 40 mg QDAY TERESA Administration Pentoxifylline 400 mg 11/24/18 22:00 11/27/18 13:02 Trental PO 400 mg BID TERESA Administration Sodium Chloride 10 ml 11/24/18 22:00 11/27/18 11:28 Sodium Chloride Flush Syringe 10 Ml IV 10 ml BID TERESA Administration Sodium Chloride 10 ml 11/24/18 20:57 11/25/18 05:44 Sodium Chloride Flush Syringe 10 Ml IV 10 ml PRN PRN Administration LINE FLUSH Tamsulosin HCl 0.4 mg 11/24/18 21:00 11/27/18 11:24 Flomax PO 0.4 mg DAILY TERESA Administration
[2018-11-27] MEDS: LEVAQUIN 750MG/150ML 750 MG/150 ML BAG IV SCH (23:47)
[2018-11-28] MEDS: SOLU-Medrol IV SCH ×3 (05:06→22:12)
[2018-11-28] MEDS: BROVANA NEBU IH SCH ×2 (07:27→20:07)
[2018-11-28] MEDS: DUONEB *Not for PRN Use IH SCH ×3 (07:27→20:07)
[2018-11-28] MEDS: PULMICORT IH SCH ×2 (07:27→20:07)
[2018-11-28] MEDS: SINGULAIR PO SCH ×2 (07:42→17:36)
[2018-11-28 08:13] LABS: Albumin 3.1 g/dL (3.9-5); Calcium 8.3 mg/dL (8.4-10.2)
[2018-11-28] MEDS ORDERED: LOVENOX SUB-Q SCH (10:00)
--- NOTE | 2018-11-28 10:46 | XRay Report ---
CHEST 1 VIEW INDICATION: Follow up on interstitial edema.. Shortness of breath COMPARISON: 11/24/2018 FINDINGS: Support devices: None. Heart: Stable borderline cardiomegaly. 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 Lungs/Pleura: Mild pulmonary interstitial edema has resolved. The lungs are clear. No pleural effusio n or pneumothorax. Additional findings: None. IMPRESSION: Near normal AP chest. [place] heart size. Lungs clear. Signer Name: Huan Talbot Jr, MD Signed: 11/28/2018 10:42 AM Workstation Name: [id number]
[2018-11-28] MEDS: PLAVIX PO SCH (10:53)
[2018-11-28] MEDS: PROTONIX PO SCH (10:53)
[2018-11-28] MEDS: LASIX IV SCH (10:53)
[2018-11-28] MEDS: FLOMAX PO SCH (10:53)
[2018-11-28] MEDS: TRENTAL PO SCH ×2 (10:53→22:11)
[2018-11-28] MEDS: CATAPRES PO SCH ×2 (10:53→22:12)
[2018-11-28] MEDS: ATARAX PO SCH (10:53)
[2018-11-28] MEDS: NEURONTIN PO SCH ×2 (10:53→22:11)
[2018-11-28] MEDS: THERAGRAN-M Tab PO SCH (10:53)
[2018-11-28] MEDS: APRESOLINE PO SCH ×2 (10:53→22:11)
[2018-11-28] MEDS: MUCINEX ER PO SCH ×2 (10:53→22:12)
[2018-11-28] MEDS: SODIUM CHLORIDE FLUSH SYRINGE 10 ML IV SCH ×2 (10:54→22:13)
--- NOTE | 2018-11-28 12:41 | Progress Note ---
Assessment and Plan COPD exacerbation Hypertension Acute renal failure An echocardiogram reports enlarged atria, mild to moderate aortic stenosis and mitral stenosis. There is also a mild decreased left ventricular systolic function, ejection fraction 40-45%. Conservative cardiac management. Subjective Date of service: 11/28/18 Principal diagnosis: Ac on ch hypoxemic resp failure; AE-COPD; Possible occult PNA; CARRIE Interval history: Patient is resting in bed comfortably. Still with active wheezing. Objective Vital Signs Temp Pulse Pulse Resp Resp BP Pulse Ox 11/28/18 11:33 86 18 96 11/28/18 08:12 97.9 F 18 146/71 11/28/18 07:53 85 20 11/28/18 07:27 88 20 98 11/28/18 04:38 98.6 F 16 149/79 11/28/18 03:00 91 H 100 11/28/18 00:55 98.2 F 91 H 17 165/79 100 11/27/18 20:39 85 22 145/63 100 11/27/18 20:31 88 18 11/27/18 20:18 99 11/27/18 20:17 86 18 11/27/18 20:00 97.7 F 98 11/27/18 19:36 91 H 11/27/18 16:49 98.1 F 97 H 20 128/63 96 11/27/18 14:16 83 20 11/27/18 13:58 92 H 20 - Physical Examination General: No Apparent Distress HEENT: Positive: PERRL Neck: Positive: trachea midline Cardiac: Positive: Reg Rate and Rhythm Lungs: Positive: Decreased Breath Sounds Neuro: Positive: Grossly Intact Extremities: Absent: edema - Labs and Meds Cardiac Enzymes 11/28/18 Range/Units 07:13 AST 33 (5-40) units/L Comprehensive Metabolic Panel 11/28/18 Range/Units 07:13 Sodium 140 (137-145) mmol/L Potassium 4.8 (3.6-5.0) mmol/L Chloride 102.1 (98-107) mmol/L Carbon Dioxide 28 (22-30) mmol/L BUN 40 H (9-20) mg/dL Creatinine 1.2 (0.8-1.5) mg/dL Glucose 141 H (75-100) mg/dL Calcium 8.3 L (8.4-10.2) mg/dL AST 33 (5-40) units/L ALT 45 (7-56) units/L Alkaline Phosphatase 65 (35-129) units/L Total Protein 5.9 L (6.3-8.2) g/dL Albumin 3.1 L (3.9-5) g/dL
--- NOTE | 2018-11-28 14:06 | Discharge Summary ---
Providers - Providers Date of Admission: 11/24/18 20:57 Date of discharge: 11/28/18 Attending physician: JULIUS AGUDELO 11/24/18 20:57 Consult to Physician [CONS] Routine Comment: Consulting Provider: AMANDA RECIO Physician Instructions: Reason For Exam: CHF exacerbation 11/24/18 21:16 Consult to Physician [CONS] Routine Comment: Consulting Provider: PAULINA CROCKER Physician Instructions: Reason For Exam: COPD exacerbation [facility] Hospital[facility] Condition: Fair Disposition: DC-01 TO HOME OR SELFCARE Time spent for discharge: 32 min Core Measure Documentation - Palliative Care Palliative Care/ Comfort Measures: Not Applicable - Core Measures Any of the following diagnoses?: none Exam - Constitutional Vitals: Temp Pulse Resp BP Pulse Ox 97.9 F 86 18 146/71 96 11/28/18 08:12 11/28/18 11:33 11/28/18 11:33 11/28/18 08:12 11/28/18 11:33 General appearance: Present: no acute distress, well-nourished - EENT Eyes: Present: PERRL, EOM intact - Neck Neck: Present: supple, normal ROM - Respiratory Respiratory effort: normal Respiratory: bilateral: diminished, negative: rales, rhonchi, wheezing - Cardiovascular Rhythm: regular Heart Sounds: Present: S1 & S2 - Extremities Extremities: no ischemia, No edema - Abdominal General gastrointestinal: Present: soft, non-tender, non-distended, normal bowel sounds - Integumentary Integumentary: Present: clear, warm - Musculoskeletal Musculoskeletal: strength equal bilaterally - Psychiatric Psychiatric: appropriate mood/affect, cooperative - Neurologic Neurologic: CNII-XII intact, moves all extremities Plan Activity: advance as tolerated, fall precautions Diet: other (cardiac diet) Additional Instructions: Use Home oxygen as before. Fall precautions Follow up with: BERTA CHERRYLOMAN MD ZOHRA [Primary Care Provider] - 3-5 Days TICO WISE MD [Staff Physician] - 7 Days MARILU SIMEON MD [Staff Physician] - 7 Days Forms: Discharge Signature Page Prescriptions: levoFLOXacin [Levaquin] 250 mg PO QDAY #5 tablet Prednisone [predniSONE 10 mg (6-Day Pack, 21 Tabs)] 10 mg PO .TAPER #1 tab.ds.pk Benzonatate [Tessalon Perles] 100 mg PO Q8HR #30 capsule
--- NOTE | 2018-11-28 14:43 | Progress Note ---
Assessment and Plan Patient is alert and awake.Sitting up in chair. Receiving aerosol treatment. Resting on 2L O2. O2 saturation 98%. No acute respiratory distress at rest. Afebrile. BP 146/71. ABG on room air. POC ABG pH 7.424 (7.35-7.45) 11/28/18 12:51 POC ABG pCO2 43.2 (35-45) 11/28/18 12:51 POC ABG pO2 74 (80-105) L 11/28/18 12:51 POC ABG HCO3 28.3 (22-26 mml/L) 11/28/18 12:51 POC ABG Total CO2 30 (23-27mmol/L) 11/28/18 12:51 POC ABG O2 Sat 95 11/28/18 12:51 If Patient going home,recommend pulmonary follow up in 1 or 2 weeks. - Patient Problems (1) Acute and chronic respiratory failure ([id number]) Current Visit: No Status: Acute Plan to address problem: O2 2L nasal canula. Albuterol and atrovent aierosol treatment q 6 hours Continue IV salomedrol Continue Levaquin. Continue S/C lovenox Continue protonix. (2) COPD with exacerbation Current Visit: No Status: Acute Plan to address problem: O2 3L nasal canula. Albuterol and atrovent aierosol treatment q 6 hours Continue IV salomedrol Continue Levaquin. Continue S/C lovenox Continue protonix PFTs as an outpatient. Recommend CAT scan of chest with contrast once renal function improves. (3) Accelerated hypertension Current Visit: No Status: Acute Plan to address problem: Management as per primary care. (4) Anemia Current Visit: No Status: Acute Qualifiers: Anemia type: iron deficiency Iron deficiency anemia type: unspecified iron deficiency Qualified Code(s): D50.9 - Iron deficiency anemia, unspecified Plan to address problem: Management as per primary care. (5) Bronchitis Current Visit: No Status: Acute Plan to address problem: Patient is on Levaquin (6) Diastolic CHF, acute Current Visit: No Status: Acute Plan to address problem: Patient is on lasix. Management as per cardiology. Subjective Date of service: 11/28/18 Principal diagnosis: Ac on ch hypoxemic resp failure; AE-COPD; Possible occult PNA; CARRIE Interval history: Patient is alert and awake.Sitting up in chair. Receiving aerosol treatment. Resting on 2L O2. O2 saturation 98%. No acute respiratory distress at rest. Afebrile. BP 146/71. ABG on room air. POC ABG pH 7.424 (7.35-7.45) 11/28/18 12:51 POC ABG pCO2 43.2 (35-45) 11/28/18 12:51 POC ABG pO2 74 (80-105) L 11/28/18 12:51 POC ABG HCO3 28.3 (22-26 mml/L) 11/28/18 12:51 POC ABG Total CO2 30 (23-27mmol/L) 11/28/18 12:51 POC ABG O2 Sat 95 11/28/18 12:51 If Patient going home,recommend pulmonary follow up in 1 or 2 weeks. Objective Vital Signs - 12hr 11/28/18 11/28/18 11/28/18 03:00 04:38 07:27 Temperature 98.6 F Pulse Rate 91 H Pulse Rate [ 88 Anterior Bilateral Throughout] Respiratory 16 Rate Respiratory 20 Rate [Anterior Bilateral Throughout] Blood Pressure 149/79 O2 Sat by Pulse 100 98 Oximetry 11/28/18 11/28/18 11/28/18 07:53 08:12 11:33 Temperature 97.9 F Pulse Rate 86 Pulse Rate [ 85 Anterior Bilateral Throughout] Respiratory 18 18 Rate Respiratory 20 Rate [Anterior Bilateral Throughout] Blood Pressure 146/71 O2 Sat by Pulse 96 Oximetry 11/28/18 14:22 Temperature Pulse Rate Pulse Rate [ 82 Anterior Bilateral Throughout] Respiratory Rate Respiratory 18 Rate [Anterior Bilateral Throughout] Blood Pressure O2 Sat by Pulse 98 Oximetry Constitutional: no acute distress, alert Eyes: non-icteric ENT: oropharynx moist Neck: supple Ascultation: Bilateral: rales Cardiovascular: regular rate and rhythm Gastrointestinal: normoactive bowel sounds, soft, non-tender Integumentary: normal Extremities: no cyanosis, other (trace edema) Neurologic: normal mental status, non-focal exam, pupils equal and round, CN II- XII normal Psychiatric: mood appropriate, affect normal CBC and BMP: 11/24/18 18:57 11/28/18 07:13 ABG, PT/INR, D-dimer: ABG POC ABG pH 7.424 (7.35-7.45) 11/28/18 12:51 POC ABG pCO2 43.2 (35-45) 11/28/18 12:51 POC ABG pO2 74 (80-105) L 11/28/18 12:51 POC ABG HCO3 28.3 (22-26 mml/L) 11/28/18 12:51 POC ABG Total CO2 30 (23-27mmol/L) 11/28/18 12:51 POC ABG O2 Sat 95 11/28/18 12:51 PT/INR, D-dimer PT 12.3 Sec. (12.2-14.9) 11/24/18 18:57 INR 0.94 (0.87-1.13) 11/24/18 18:57 Abnormal lab findings: Abnormal Labs 11/24/18 11/24/18 11/24/18 18:57 18:57 19:48 RBC 3.49 L Hgb 10.9 L Hct 32.3 L RDW 15.8 H Plt Count 457 H Seg Neutrophils % 82.9 H Seg Neutrophils # 8.3 H POC ABG pO2 BUN 24 H Creatinine Glucose 114 H Lactic Acid 3.40 H* Calcium Magnesium Troponin T C-Reactive Protein Total Protein Albumin 3.8 L 11/24/18 11/25/18 11/25/18 21:21 05:07 05:07 RBC Hgb Hct RDW Plt Count Seg Neutrophils % Seg Neutrophils # POC ABG pO2 BUN 32 H Creatinine 1.8 H Glucose Lactic Acid Calcium Magnesium Troponin T 0.058 H D 0.032 H D C-Reactive Protein Total Protein 5.5 L D Albumin 3.5 L 11/25/18 11/25/18 11/28/18 11:01 14:57 07:13 RBC Hgb Hct RDW Plt Count Seg Neutrophils % Seg Neutrophils # POC ABG pO2 77 L BUN 40 H Creatinine Glucose 141 H Lactic Acid Calcium 8.3 L Magnesium 2.60 H Troponin T C-Reactive Protein 20.90 H Total Protein 5.9 L Albumin 3.1 L 11/28/18 12:51 RBC Hgb Hct RDW Plt Count Seg Neutrophils % Seg Neutrophils # POC ABG pO2 74 L BUN Creatinine Glucose Lactic Acid Calcium Magnesium Troponin T C-Reactive Protein Total Protein Albumin Chest x-ray: report reviewed (Lungs clear.), image reviewed
--- NOTE | 2018-11-28 18:00 | Progress Note ---
Assessment and Plan Assessment and plan: 83-year-old male patient with significant past medical history of hypertension , COPD, dyslipidemia ,valvuloplasty ,GERD arthritis bladder tumor was admitted to the emergency room with worsening shortness of breath of 1 day duration.On evaluation Patient was noted to be in acute exacerbation of COPD with acute hypoxic respiratory failure.Also acute kidney injury, acute systolic congestive heart failure, Pulmonary cardiology following the patient --Acute combined systolic and diastolic congestive heart failure Continue Anti-failure medications, EF 40-45% Grade 2 Diastolic dysfunction --Acute hypoxic respiratory failure; secondary to COPD exacerbation Continue nebulizers, oxygen, IV steroids, IV antibiotics --Acute exacerbation of COPD; Oxygen, Nebulizers, IV steroids, inhalational steroids Pulmonary following --Non-ST elevation HI; positive troponins Continue current cardiac medications, cardiology rec conservative management --Lactic acidosis; resolved --Peripheral arterial disease; continue Antiplatelets and statins --Gastroesophageal reflux disease; Protonix --Acute kidney injury; vasomotor nephropathy closely monitor renal function,Avoid nephrotoxins, Consult Hydraulic Lift Driver if no improvement --Hypertension: well Controlled Continue current antihypertensives --DVT prophylaxis; Lovenox --Full Code status Plan of care is reviewed with the patient, family member and his nurse Disposition; follow cardiology pulmonology recommendations Possible discharge tomorrow if stable History Interval history: Patient seen and examined, communicated through son who speaks Bahamian Patient feels slightly better complaints of mild cough Vital signs reviewed Patient already has home oxygen Alert awake oriented 3 Plans were being made to discharge the patient home today However patient complains of shortness of breath and cough Mild dizziness, hold discharge, close observation overnight prison tomorrow if stable Hospitalist Physical - Constitutional Vitals: Temp Pulse Resp BP Pulse Ox 97.9 F 83 18 146/71 98 11/28/18 08:12 11/28/18 14:47 11/28/18 14:47 11/28/18 08:12 11/28/18 14:22 General appearance: Present: mild distress, well-nourished - EENT Eyes: Present: PERRL, EOM intact - Neck Neck: Present: supple, normal ROM - Respiratory Respiratory effort: normal Respiratory: bilateral: diminished, wheezing, negative: rales, rhonchi - Cardiovascular Rhythm: regular Heart Sounds: Present: S1 & S2 - Extremities Extremities: no ischemia, No edema - Abdominal General gastrointestinal: soft, non-tender, non-distended, normal bowel sounds - Integumentary Integumentary: Present: clear, warm - Psychiatric Psychiatric: appropriate mood/affect, cooperative - Neurologic Neurologic: CNII-XII intact, moves all extremities Results - Labs CBC & Chem 7: 11/24/18 18:57 11/28/18 07:13 Labs: Laboratory Last Values WBC 10.0 K/mm3 (4.5-11.0) 11/24/18 18:57 RBC 3.49 M/mm3 (3.65-5.03) L 11/24/18 18:57 Hgb 10.9 gm/dl (11.8-15.2) L 11/24/18 18:57 Hct 32.3 % (35.5-45.6) L 11/24/18 18:57 MCV 93 fl (84-94) 11/24/18 18:57 MCH 31 pg (28-32) 11/24/18 18:57 MCHC 34 % (32-34) 11/24/18 18:57 RDW 15.8 % (13.2-15.2) H 11/24/18 18:57 Plt Count 457 K/mm3 (140-440) H 11/24/18 18:57 Lymph % (Auto) 14.4 % (13.4-35.0) 11/24/18 18:57 Faulk % (Auto) 1.4 % (0.0-7.3) 11/24/18 18:57 Eos % (Auto) 1.0 % (0.0-4.3) 11/24/18 18:57 Baso % (Auto) 0.3 % (0.0-1.8) 11/24/18 18:57 Lymph # 1.4 K/mm3 (1.2-5.4) 11/24/18 18:57 Faulk # 0.1 K/mm3 (0.0-0.8) 11/24/18 18:57 Eos # 0.1 K/mm3 (0.0-0.4) 11/24/18 18:57 Baso # 0.0 K/mm3 (0.0-0.1) 11/24/18 18:57 Seg Neutrophils % 82.9 % (40.0-70.0) H 11/24/18 18:57 Seg Neutrophils # 8.3 K/mm3 (1.8-7.7) H 11/24/18 18:57 PT 12.3 Sec. (12.2-14.9) 11/24/18 18:57 INR 0.94 (0.87-1.13) 11/24/18 18:57 APTT 24.4 Sec. (24.2-36.6) 11/24/18 18:57 POC ABG pH 7.424 (7.35-7.45) 11/28/18 12:51 POC ABG pCO2 43.2 (35-45) 11/28/18 12:51 POC ABG pO2 74 (80-105) L 11/28/18 12:51 POC ABG HCO3 28.3 (22-26 mml/L) 11/28/18 12:51 POC ABG Total CO2 30 (23-27mmol/L) 11/28/18 12:51 POC ABG O2 Sat 95 11/28/18 12:51 POC ABG Base Excess 4 ((-2) - (+3)mmol/L) 11/28/18 12:51 21 % 11/28/18 12:51 Sodium 140 mmol/L (137-145) 11/28/18 07:13 Potassium 4.8 mmol/L (3.6-5.0) 11/28/18 07:13 Chloride 102.1 mmol/L (98-107) 11/28/18 07:13 Carbon Dioxide 28 mmol/L (22-30) 11/28/18 07:13 15 mmol/L 11/28/18 07:13 BUN 40 mg/dL (9-20) H 11/28/18 07:13 1.2 mg/dL (0.8-1.5) 11/28/18 07:13 Estimated GFR 58 ml/min 11/28/18 07:13 33 % 11/28/18 07:13 Glucose 141 mg/dL (75-100) H 11/28/18 07:13 4.8 % (4-6) 11/24/18 21:21 Lactic Acid 1.70 mmol/L (0.7-2.0) 11/24/18 21:21 Calcium 8.3 mg/dL (8.4-10.2) L 11/28/18 07:13 Magnesium 2.60 mg/dL (1.7-2.3) H 11/28/18 07:13 0.20 mg/dL (0.1-1.2) 11/28/18 07:13 AST 33 units/L (5-40) 11/28/18 07:13 ALT 45 units/L (7-56) 11/28/18 07:13 65 units/L (35-129) 11/28/18 07:13 56 units/L (55-170) 11/24/18 18:57 CK-MB (CK-2) 1.8 ng/mL (0.0-4.0) 11/24/18 18:57 CK-MB (CK-2) Rel Index 3.2 (0-4) 11/24/18 18:57 0.032 ng/mL (0.00-0.029) H D 11/25/18 05:07 20.90 mg/dL (0.00-1.30) H 11/25/18 14:57 NT-Pro-B Natriuret Pep 289.1 pg/mL (0-900) 11/24/18 18:57 5.9 g/dL (6.3-8.2) L 11/28/18 07:13 3.1 g/dL (3.9-5) L 11/28/18 07:13 1.1 % 11/28/18 07:13 Triglycerides 67 mg/dL (2-149) 11/24/18 21:21 Cholesterol 146 mg/dL (50-199) 11/24/18 21:21 90 mg/dL (50-130) 11/24/18 21:21 54 mg/dL (40-59) 11/24/18 21:21 2.70 % 11/24/18 21:21 TSH 1.550 mlU/mL (0.270-4.200) 11/24/18 18:57 Free T4 1.29 ng/dL (0.76-1.46) 11/24/18 18:57 Active Medications - Current Medications Current Medications: Generic Name Dose Route Start Last Admin Trade Name Freq PRN Reason Stop Dose Admin Acetaminophen 650 mg 11/24/18 20:57 Tylenol PO Q4H PRN Pain MILD(1-3)/Fever >100.5/BRYAN Albuterol 2.5 mg 11/24/18 20:47 Proventil IH Q4HRT PRN Shortness Of Breath Albuterol/Ipratropium 1 ampul 11/27/18 14:00 11/28/18 14:22 Duoneb *Not For Prn Use* IH 1 ampul TIDRT TERESA Administration Arformoterol Tartrate 15 mcg 11/24/18 21:00 11/28/18 07:27 Brovana Nebu IH 15 mcg Q12HRT TERESA Administration Atorvastatin Calcium 20 mg 11/24/18 22:00 11/27/18 23:44 Lipitor PO 20 mg QHS TERESA Administration Budesonide 0.5 mg 11/25/18 14:54 11/28/18 07:27 Pulmicort IH 0.5 mg Q12HRT TERESA Administration Clonidine HCl 0.2 mg 11/24/18 22:00 11/28/18 10:53 Catapres PO 0.2 mg BID TERESA Administration Clopidogrel Bisulfate 75 mg 11/24/18 21:00 11/28/18 10:53 Plavix PO 75 mg DAILY TERESA Administration Enoxaparin Sodium 40 mg 11/29/18 10:00 Lovenox SUB-Q QDAY@1000 TERESA Furosemide 40 mg 11/26/18 10:00 11/28/18 10:53 Lasix IV 40 mg DAILY TERESA Administration Gabapentin 300 mg 11/24/18 22:00 11/28/18 10:53 Neurontin PO 300 mg BID TERESA Administration Guaifenesin 600 mg 11/24/18 22:00 11/28/18 10:53 Mucinex Er PO 600 mg BID TERESA Administration Hydralazine HCl 100 mg 11/24/18 22:00 11/28/18 10:53 Apresoline PO 100 mg BID TERESA Administration Hydromorphone HCl 0.5 mg 11/24/18 20:57 Dilaudid IV Q3H PRN Pain , Severe (7-10) Hydroxyzine HCl 25 mg 11/25/18 10:00 11/28/18 10:53 Atarax PO 25 mg QDAY TERESA Administration Levofloxacin/Dextrose 750 mg in 150 mls @ 100 mls/hr 11/25/18 20:00 11/27/18 23:47 Levaquin 750mg/150ml IV 100 mls/hr Q48H TERESA Administration Protocol Methylprednisolone Sodium Succinate 60 mg 11/25/18 14:54 11/28/18 13:58 Solu-Medrol IV 60 mg Q8HR TERESA Administration Montelukast Sodium 10 mg 11/25/18 18:00 11/28/18 17:36 Singulair PO 10 mg QPM TERESA Administration Multivitamins/Minerals 1 each 11/24/18 21:00 11/28/18 10:53 Theragran-M Tab PO 1 each QDAY TERESA Administration Ondansetron HCl 4 mg 11/24/18 20:57 Zofran IV Q8H PRN Nausea And Vomiting Oxycodone/Acetaminophen 1 tab 11/24/18 20:57 Percocet 5/325 PO Q6H PRN Pain, Moderate (4-6) Pantoprazole Sodium 40 mg 11/24/18 21:00 11/28/18 10:53 Protonix PO 40 mg QDAY TERESA Administration Pentoxifylline 400 mg 11/24/18 22:00 11/28/18 10:53 Trental PO 400 mg BID TERESA Administration Sodium Chloride 10 ml 11/24/18 22:00 11/28/18 10:54 Sodium Chloride Flush Syringe 10 Ml IV 10 ml BID TERESA Administration Sodium Chloride 10 ml 11/24/18 20:57 11/25/18 05:44 Sodium Chloride Flush Syringe 10 Ml IV 10 ml PRN PRN Administration LINE FLUSH Tamsulosin HCl 0.4 mg 11/24/18 21:00 11/28/18 10:53 Flomax PO 0.4 mg DAILY TERESA Administration
[2018-11-29] MEDS: SOLU-Medrol IV SCH (05:19)
[2018-11-29] MEDS: PULMICORT IH SCH (07:59)
[2018-11-29] MEDS: BROVANA NEBU IH SCH (07:59)
[2018-11-29] MEDS: DUONEB *Not for PRN Use IH SCH (07:59)
[2018-11-29 08:42] VITALS: BP 137/74
--- NOTE | 2018-11-29 09:19 | Progress Note ---
Assessment and Plan COPD exacerbation CHF Hypertension Acute renal failure Previous thoracotomy, possibly coronary artery bypass An echocardiogram reports left ventricular ejection fraction of 40-45%, with rheumatic valvular disease, mild to moderate mitral and mild to moderate aortic stenosis. Subjective Date of service: 11/29/18 Principal diagnosis: Ac on ch hypoxemic resp failure; AE-COPD; Possible occult PNA; CARRIE Interval history: Patient is resting in bed comfortably. Objective Vital Signs Temp Pulse Pulse Resp Resp BP Pulse Ox 11/29/18 08:25 98.1 F 18 137/74 11/29/18 08:19 95 H 18 11/29/18 07:59 79 18 99 11/29/18 03:37 97.4 F L 90 20 163/86 98 11/28/18 22:57 97.5 F L 81 19 150/73 94 11/28/18 20:54 84 11/28/18 20:23 85 18 11/28/18 20:09 99 11/28/18 20:08 81 18 11/28/18 19:45 97.4 F L 84 20 145/67 97 11/28/18 17:21 97.3 F L 18 159/80 11/28/18 14:47 83 18 11/28/18 14:22 82 18 98 11/28/18 12:43 97.4 F L 18 135/65 11/28/18 11:33 86 18 96 - Physical Examination General: No Apparent Distress HEENT: Positive: PERRL Neck: Positive: trachea midline Neuro: Positive: Grossly Intact Abdomen: Positive: Unremarkable, Active Bowel Sounds Extremities: Absent: edema
[2018-11-29] MEDS ORDERED: LOVENOX SUB-Q SCH (10:00)
[2018-11-29] MEDS: TRENTAL PO SCH (10:17)
[2018-11-29] MEDS: FLOMAX PO SCH (10:17)
[2018-11-29] MEDS: NEURONTIN PO SCH (10:18)
[2018-11-29] MEDS: APRESOLINE PO SCH (10:18)
[2018-11-29] MEDS: CATAPRES PO SCH (10:18)
[2018-11-29] MEDS: PROTONIX PO SCH (10:18)
[2018-11-29] MEDS: ATARAX PO SCH (10:18)
[2018-11-29] MEDS: MUCINEX ER PO SCH (10:18)
[2018-11-29] MEDS: LASIX IV SCH (10:19)
[2018-11-29] MEDS: THERAGRAN-M Tab PO SCH (10:25)
[2018-11-29] MEDS: PLAVIX PO SCH (10:25)
[2018-11-29] MEDS: SODIUM CHLORIDE FLUSH SYRINGE 10 ML IV SCH (10:26)
--- NOTE | 2018-11-29 10:53 | Event Note ---
Date: 11/29/18 Patient's primary roastmaster is [facility]. We will defer to them for continued cardiac care.
--- NOTE | 2018-11-29 11:29 | Discharge Summary ---
Providers - Providers Date of Admission: 11/24/18 20:57 Date of discharge: 11/29/18 Attending physician: JULIUS AGUDELO 11/24/18 20:57 Consult to Physician [CONS] Routine Comment: Consulting Provider: JOSE ESTEVEZ Physician Instructions: Reason For Exam: CHF exacerbation 11/24/18 21:16 Consult to Physician [CONS] Routine Comment: Consulting Provider: PAULINA CROCKER Physician Instructions: Reason For Exam: COPD exacerbation [facility] Reason for admission: Acute respiratory failure/Acute congestive heart failure Condition: Fair Pertinent studies: CXR : mild interstitial pulm edema Hospital course: 83-year-old male patient with significant past medical history of hypertension , COPD, dyslipidemia ,valvuloplasty ,GERD arthritis bladder tumor was admitted to the emergency room with worsening shortness of breath of 1 day duration.On evaluation Patient was noted to be in acute exacerbation of COPD with acute hypoxic respiratory failure.Also acute kidney injury, acute systolic congestive heart failure, Pulmonary cardiology following the patient.Patient's medications optimised .Symptoms resolved Today patient feels better,no new complaints,vital signs stable,physical exam is unremarkable. Cleared by pilm and cardilogy for DC and f/u per schedule. Patient is stable at discharge. Dischargge Diagnosis: --Acute combined systolic and diastolic congestive heart failure Continue Anti-failure medications, EF 40-45% Grade 2 Diastolic dysfunction --Acute hypoxic respiratory failure; secondary to COPD exacerbation Continue nebulizers, oxygen, IV steroids, IV antibiotics --Acute exacerbation of COPD; Oxygen, Nebulizers, IV steroids, inhalational steroids Pulmonary following --Non-ST elevation SC; positive troponins Continue current cardiac medications, cardiology rec conservative management --Lactic acidosis; resolved --Peripheral arterial disease; continue Antiplatelets and statins --Gastroesophageal reflux disease; Protonix --Acute kidney injury; vasomotor nephropathy closely monitor renal function,Avoid nephrotoxins, Consult Area Secretary if no improvement --Hypertension: well Controlled Continue current antihypertensives --DVT prophylaxis; Lovenox --Full Code status Plan of care is reviewed with the patient, family member and his nurse Stable at discharge Disposition: DC-01 TO HOME OR SELFCARE Time spent for discharge: 32 min Core Measure Documentation - Palliative Care Palliative Care/ Comfort Measures: Not Applicable - Core Measures Any of the following diagnoses?: none Exam - Constitutional Vitals: Temp Pulse Resp BP Pulse Ox 98.1 F 88 18 137/74 99 11/29/18 08:25 11/29/18 10:18 11/29/18 08:25 11/29/18 08:25 11/29/18 07:59 General appearance: Present: no acute distress, well-nourished - EENT Eyes: Present: PERRL, EOM intact - Neck Neck: Present: supple, normal ROM - Respiratory Respiratory effort: normal Respiratory: bilateral: diminished, negative: rales, rhonchi, wheezing - Cardiovascular Rhythm: regular Heart Sounds: Present: S1 & S2 - Extremities Extremities: no ischemia, No edema - Abdominal General gastrointestinal: Present: soft, non-tender, non-distended, normal bowel sounds - Integumentary Integumentary: Present: clear, warm - Musculoskeletal Musculoskeletal: strength equal bilaterally - Psychiatric Psychiatric: appropriate mood/affect, cooperative - Neurologic Neurologic: moves all extremities Plan Activity: advance as tolerated, fall precautions Diet: other (cardiac diet) Additional Instructions: Fall precautions. If you have chest pain or shortness of breath, contact M.D. or go to emergency room Follow up with: TICO WISE MD [Staff Physician] - 7 Days [facility] MD ZOHRA [Primary Care Provider] - 3-5 Days CARLOS HARP MD [Staff Physician] - 7 Days Forms: Discharge Signature Page Prescriptions: levoFLOXacin [Levaquin] 250 mg PO QDAY #5 tablet Prednisone [predniSONE 10 mg (6-Day Pack, 21 Tabs)] 10 mg PO .TAPER #1 tab.ds.pk Benzonatate [Tessalon Perles] 100 mg PO Q8HR #30 capsule Cetirizine HCl [ZyrTEC 10mg cap] 10 mg PO DAILY #7 capsule
--- NOTE | 2018-11-29 14:55 | Progress Note ---
Assessment and Plan Patient is alert and awake. Sitting up in bed. Resting on room air at this time. O2 saturation 99%. No acute respiratory distress at rest. Afebrile. BP 137/74. ABG on room air. POC ABG pH 7.424 (7.35-7.45) 11/28/18 12:51 POC ABG pCO2 43.2 (35-45) 11/28/18 12:51 POC ABG pO2 74 (80-105) L 11/28/18 12:51 POC ABG HCO3 28.3 (22-26 mml/L) 11/28/18 12:51 POC ABG Total CO2 30 (23-27mmol/L) 11/28/18 12:51 POC ABG O2 Sat 95 11/28/18 12:51 If Patient going home,recommend pulmonary follow up in 1 or 2 weeks. - Patient Problems (1) Acute and chronic respiratory failure ([id number]) Status: Acute Plan to address problem: O2 2L nasal canula. Albuterol and atrovent aierosol treatment q 6 hours Continue IV salomedrol Continue Levaquin. Continue S/C lovenox Continue protonix. (2) COPD with exacerbation Status: Acute Plan to address problem: O2 2L nasal canula. Albuterol and atrovent aierosol treatment q 6 hours Continue IV salomedrol Continue Levaquin. Continue S/C lovenox Continue protonix PFTs as an outpatient. Recommend CAT scan of chest with contrast once renal function improves. (3) Accelerated hypertension Status: Acute Plan to address problem: Management as per primary care. (4) Anemia Status: Acute Qualifiers: Anemia type: iron deficiency Iron deficiency anemia type: unspecified iron deficiency Qualified Code(s): D50.9 - Iron deficiency anemia, unspecified Plan to address problem: Management as per primary care. (5) Bronchitis Status: Acute Plan to address problem: Patient is on Levaquin (6) Diastolic CHF, acute Status: Acute Plan to address problem: Patient is on lasix. Management as per cardiology. Subjective Date of service: 11/29/18 Principal diagnosis: Ac on ch hypoxemic resp failure; AE-COPD; Possible occult PNA; CARRIE Interval history: Patient is alert and awake. Sitting up in bed. Resting on room air at this time. O2 saturation 99%. No acute respiratory distress at rest. Afebrile. BP 137/74. ABG on room air. POC ABG pH 7.424 (7.35-7.45) 11/28/18 12:51 POC ABG pCO2 43.2 (35-45) 11/28/18 12:51 POC ABG pO2 74 (80-105) L 11/28/18 12:51 POC ABG HCO3 28.3 (22-26 mml/L) 11/28/18 12:51 POC ABG Total CO2 30 (23-27mmol/L) 11/28/18 12:51 POC ABG O2 Sat 95 11/28/18 12:51 If Patient going home,recommend pulmonary follow up in 1 or 2 weeks. Objective Vital Signs - 12hr 11/29/18 11/29/18 11/29/18 03:37 07:59 08:19 Temperature 97.4 F L Pulse Rate 90 Pulse Rate [ 79 95 H Anterior Bilateral Throughout] Respiratory 20 Rate Respiratory 18 18 Rate [Anterior Bilateral Throughout] Blood Pressure 163/86 O2 Sat by Pulse 98 99 Oximetry 11/29/18 11/29/18 08:25 10:18 Temperature 98.1 F Pulse Rate 88 Pulse Rate [ Anterior Bilateral Throughout] Respiratory 18 Rate Respiratory Rate [Anterior Bilateral Throughout] Blood Pressure 137/74 O2 Sat by Pulse Oximetry Constitutional: no acute distress, alert Eyes: non-icteric ENT: oropharynx moist Neck: supple Ascultation: Bilateral: rales Cardiovascular: regular rate and rhythm Gastrointestinal: normoactive bowel sounds, soft, non-tender Integumentary: normal Extremities: no cyanosis, other (trace edema) Neurologic: normal mental status, non-focal exam, pupils equal and round, CN II- XII normal Psychiatric: mood appropriate, affect normal CBC and BMP: 11/24/18 18:57 11/28/18 07:13 ABG, PT/INR, D-dimer: ABG POC ABG pH 7.424 (7.35-7.45) 11/28/18 12:51 POC ABG pCO2 43.2 (35-45) 11/28/18 12:51 POC ABG pO2 74 (80-105) L 11/28/18 12:51 POC ABG HCO3 28.3 (22-26 mml/L) 11/28/18 12:51 POC ABG Total CO2 30 (23-27mmol/L) 11/28/18 12:51 POC ABG O2 Sat 95 11/28/18 12:51 PT/INR, D-dimer PT 12.3 Sec. (12.2-14.9) 11/24/18 18:57 INR 0.94 (0.87-1.13) 11/24/18 18:57 Abnormal lab findings: Abnormal Labs 11/24/18 11/24/18 11/24/18 18:57 18:57 19:48 RBC 3.49 L Hgb 10.9 L Hct 32.3 L RDW 15.8 H Plt Count 457 H Seg Neutrophils % 82.9 H Seg Neutrophils # 8.3 H POC ABG pO2 BUN 24 H Creatinine Glucose 114 H Lactic Acid 3.40 H* Calcium Magnesium Troponin T C-Reactive Protein Total Protein Albumin 3.8 L 11/24/18 11/25/18 11/25/18 21:21 05:07 05:07 RBC Hgb Hct RDW Plt Count Seg Neutrophils % Seg Neutrophils # POC ABG pO2 BUN 32 H Creatinine 1.8 H Glucose Lactic Acid Calcium Magnesium Troponin T 0.058 H D 0.032 H D C-Reactive Protein Total Protein 5.5 L D Albumin 3.5 L 11/25/18 11/25/18 11/28/18 11:01 14:57 07:13 RBC Hgb Hct RDW Plt Count Seg Neutrophils % Seg Neutrophils # POC ABG pO2 77 L BUN 40 H Creatinine Glucose 141 H Lactic Acid Calcium 8.3 L Magnesium 2.60 H Troponin T C-Reactive Protein 20.90 H Total Protein 5.9 L Albumin 3.1 L 11/28/18 12:51 RBC Hgb Hct RDW Plt Count Seg Neutrophils % Seg Neutrophils # POC ABG pO2 74 L BUN Creatinine Glucose Lactic Acid Calcium Magnesium Troponin T C-Reactive Protein Total Protein Albumin
== END 2018-11-29 14:28 | disposition home or self-care (01) | DRG 280 ==
LOC: ED 18:12 → 4A 20:57
PROVIDERS: ADMIT Internal Medicine; ATTEND Internal Medicine
PROC: 4A033R1 Measurement of Arterial Saturation, Peripheral, Percutaneous Approach (ICD-10-PCS; principal; 2018-11-25)
DX: I21.4 Non-ST elevation (NSTEMI) myocardial infarction (principal); J18.9 Pneumonia, unspecified organism; J96.21 Acute and chronic respiratory failure with hypoxia; N17.0 Acute kidney failure with tubular necrosis; I50.43 Acute on chronic combined systolic (congestive) and diastolic (congestive) heart failure; J44.1 Chronic obstructive pulmonary disease with (acute) exacerbation; J44.0 Chronic obstructive pulmonary disease with (acute) lower respiratory infection; E87.2 Acidosis; E44.0 Moderate protein-calorie malnutrition; I42.9 Cardiomyopathy, unspecified; I11.0 Hypertensive heart disease with heart failure; I73.9 Peripheral vascular disease, unspecified; E78.5 Hyperlipidemia, unspecified; K21.9 Gastro-esophageal reflux disease without esophagitis; M19.90 Unspecified osteoarthritis, unspecified site; G43.909 Migraine, unspecified, not intractable, without status migrainosus; I27.81 Cor pulmonale (chronic); D50.9 Iron deficiency anemia, unspecified; N40.0 Benign prostatic hyperplasia without lower urinary tract symptoms; Z68.25 Body mass index [BMI] 25.0-25.9, adult; Z99.81 Dependence on supplemental oxygen; Z95.1 Presence of aortocoronary bypass graft; Z87.891 Personal history of nicotine dependence; Z95.2 Presence of prosthetic heart valve
CPT/HCPCS: 36415; 36600; 71045; 71046; 80053; 80061; 82140; 82550; 82553; 82803; 83036; 83735; 83880; 84439; 84443; 84484; 85025; 85610; 85730; 86140; 87040; 87070; 87205; 93005; 93010; 93306; 94640; 94760; 96365; G0378; A9270-GY; J1650; J1940; J1956; J2920; J2930

== ENCOUNTER 2019-01-26 09:02 | Inpatient (IN) | payer MEDICARE ==
[2019-01-26 09:52] LABS: Basophils % (Auto) 0.1 % (0.0-1.8); Eosinophils # (Auto) 0.6 K/mm3 (0.0-0.4); Eosinophils % (Auto) 3.4 % (0.0-4.3); Hematocrit 39.3 % (35.5-45.6); Hemoglobin 12.9 gm/dl (11.8-15.2); Lymphocytes % (Auto) 18.4 % (13.4-35.0); Mean Corpuscular HGB Conc 33 % (32-34); Mean Corpuscular Volume 90 fl (84-94); Monocytes % (Auto) 12.1 % (0.0-7.3); Platelet Count 290 K/mm3 (140-440); Red Blood Count 4.38 M/mm3 (3.65-5.03)
[2019-01-26 10:00] LABS: Albumin 3.6 g/dL (3.9-5); Calcium 8.8 mg/dL (8.4-10.2)
[2019-01-26 10:14] LABS: Chol/HDL Ratio 2.86 %
--- NOTE | 2019-01-26 10:18 | XRay Report ---
CHEST 1 VIEW INDICATION: Weakness. COMPARISON: 11/28/2018 FINDINGS: Support devices: None. Heart: Within normal limits. Pulmonary vasculature: Mildly increased. Lungs/Pleura: No acute air space or interstitial disease. Pleural effusion. Additional findings: Median sternotomy wires. IMPRESSION: 1. Pulmonary venous hypertension but no pulmonary edema. Signer Name: Rome Houstno MD Signed: 01/26/2019 10:13 AM Workstation Name: [id number]
--- NOTE | 2019-01-26 10:25 | Emergency Department Report ---
ED Fever HPI - General Chief Complaint: Weakness Stated Complaint: CHILLS/FEVER Time Seen by Provider: 01/26/19 10:16 Source: patient, family Exam Limitations: language barrier - History of Present Illness Initial Comments: Mr. Wlison is an 83 yo [place] male with past medical history of COPD, valvular heart disease, dyslipidemia, CHF, pulmonary hypertension, hypertension who presents with 3 days of fever and chills productive cough. He has left ear pain and sore throat. Yellow productive phlegm. Denies chest pain. Denies abdominal pain. He took Tylenol and Advil today prior to arrival. In November Mr. Wilson was admitted for acute CHF, acute COPD. Also noted to have elevated troponin values. Due to age and senility, family member son at bedside provided hx and language interpretation. Timing/Duration: getting worse Fever Severity/Quality: subjective Fever Therapy CARE COMPANION: Ibuprofen, Tylenol Associated Symptoms: other (earache, sore throat, cough) ED Review of Systems ROS: Stated complaint: CHILLS/FEVER Other details as noted in HPI Comment: All other systems reviewed and negative Constitutional: fever, malaise ENT: ear pain, throat pain Respiratory: cough, wheezing Cardiovascular: denies: chest pain Gastrointestinal: denies: abdominal pain, nausea, vomiting ED Past Medical Hx - Past Medical History Previous Medical History?: Yes Hx Hypertension: Yes (Gets tired easily) Hx Heart Attack/AMI: No Hx GERD: Yes Hx Arthritis: Yes Hx Headaches / Migraines: Yes Hx COPD: Yes Hx HIV: No Additional medical history: bladder tumor. elevated cholestrol - Surgical History Past Surgical History?: Yes Hx Open Heart Surgery: Yes ("RING AROUND VALVE", or tell me that the patient had a valvuloplasty ) Hx Internal Defibrillator: No (CARDIOMYOPATHY) Additional Surgical History: eye surgery. mitral valve repair - Social History Smoking Status: Never Smoker Substance Use Type: None Other Social History: lives with daughter - Medications Home Medications: Home Medications Medication Instructions Recorded Confirmed Last Taken Type AtorvaSTATin [Lipitor] 20 mg PO QHS 10/14/14 11/26/18 1 Day Ago History ~11/10/18 Albuterol Sulfate [Proair 90 mcg IH BID 07/04/18 11/26/18 Unknown History Respiclick] Fluticasone/Salmeterol [Advair 1 each IH BID 07/04/18 11/26/18 Unknown History 500-50 Diskus] Ipratropium/Albuterol Sulfate 1 spray IH BID 07/04/18 11/26/18 Unknown History [Combivent Respimat] cloNIDine [Catapres] 0.2 mg PO BID 07/04/18 11/26/18 Unknown History ALBUTEROL NEB's [Proventil 0.083% 2.5 mg IH Q4HRT PRN nebu 07/09/18 11/26/18 Unknown Rx NEBS] Arformoterol Nebu [Brovana Nebu] 15 mcg IH Q12HRT ml 07/09/18 11/26/18 Unknown Rx Budesonide [Pulmicort Respules] 0.5 mg IH Q12HRT nebu 07/09/18 11/26/18 Unknown Rx Clopidogrel [Plavix] 75 mg PO DAILY tablet 07/09/18 11/26/18 1 Day Ago Rx ~11/10/18 Famotidine [Pepcid] 20 mg PO BID tablet 07/09/18 11/26/18 Unknown Rx Gabapentin [Neurontin] 300 mg PO BID capsule 07/09/18 11/26/18 Unknown Rx Ipratropium/Albuterol Sulfate 1 ampul IH TIDRT ampul.neb 07/09/18 11/26/18 Unknown Rx [DUONEB *Not for PRN Use*] Montelukast [Singulair] 10 mg PO QPM tablet 07/09/18 11/26/18 1 Day Ago Rx ~11/10/18 Tamsulosin [Flomax] 0.4 mg PO DAILY capsule 07/09/18 11/26/18 1 Day Ago Rx ~11/10/18 guaiFENesin ER [Mucinex ER] 600 mg PO BID #60 tablet 07/09/18 11/26/18 Unknown Rx hydrALAZINE [Apresoline TAB] 100 mg PO BID tab 07/09/18 11/26/18 1 Day Ago Rx ~11/10/18 Pentoxifylline 400 mg PO BID 11/11/18 11/26/18 1 Day Ago History ~11/10/18 Multivitamin Tab W-MINERAL 1 each PO QDAY #30 tablet 11/14/18 11/26/18 Unknown Rx [Multiple Vitamin/Mineral (Theragran M)] Benzonatate [Tessalon Perles] 100 mg PO Q8HR #30 capsule 11/28/18 Unknown Rx Prednisone [predniSONE 10 mg 10 mg PO .TAPER #1 tab.ds.pk 11/28/18 Unknown Rx (6-Day Pack, 21 Tabs)] levoFLOXacin [Levaquin] 250 mg PO QDAY #5 tablet 11/28/18 Unknown Rx Cetirizine HCl [ZyrTEC 10mg cap] 10 mg PO DAILY #7 capsule 11/29/18 Unknown Rx ED Physical Exam - General Limitations: No Limitations General appearance: alert, other (speaking short sentences, mild work of breathing while sitting semiupright in stretcher) - Head Head exam: Present: atraumatic, normocephalic - Eye Eye exam: Present: normal appearance - ENT ENT exam: Present: mucous membranes moist, other (no tonsillar erythema, edema or exudate, right TM WNL, left TM view obstructed with wax) - Neck Neck exam: Present: normal inspection, full ROM - Respiratory Respiratory exam: Present: normal lung sounds bilaterally. Absent: respiratory distress, wheezes, rales, rhonchi - Cardiovascular Cardiovascular Exam: Present: regular rate, normal rhythm, normal heart sounds. Absent: systolic murmur, diastolic murmur, rubs, gallop - GI/Abdominal GI/Abdominal exam: Present: soft. Absent: distended, tenderness, guarding, rebound - Extremities Exam Extremities exam: Present: normal inspection - Neurological Exam Neurological exam: Present: alert, oriented X3 - Psychiatric Psychiatric exam: Present: normal mood, flat affect - Skin Skin exam: Present: warm, dry, intact, normal color. Absent: rash ED Course Vital Signs 01/26/19 01/26/19 09:23 10:22 Temperature 99.8 F H Pulse Rate 107 H 94 H Respiratory 18 25 H Rate Blood Pressure 174/76 O2 Sat by Pulse 94 96 Oximetry ED Medical Decision Making - Lab Data Result diagrams: 01/26/19 09:29 01/26/19 09:29 - EKG Data 01/26/19 10:26 EKG obtained 0 933 Sinus tachycardia rate 100 bpm normal axis prolonged QTC right bundle branch block no ST elevation no signs of ischemia - Radiology Data Radiology results: report reviewed AP portable chest one view: Reveals findings of pulmonary venous hypertension without edema, - Medical Decision Making Mr. Wilson presents with fever, productive cough, sore throat and ear pain. He has evidence of acute COPD exacerbation with hypoxia 88% on room air during my examination room. He was treated with antibiotics, bronchodilator therapy and steroids. Admitted to the hospitalist service in fair condition. I did see That Mr. Wilson has persistently the elevated troponin values which is reflective of cardiomyopathy versus ACS. Given ASA. Critical care attestation.: If time is entered above; I have spent that time in minutes in the direct care of this critically ill patient, excluding procedure time. ED Disposition Clinical Impression: COPD with acute exacerbation, Fever, URI (upper respiratory infection), Cardiomyopathy, Acute respiratory failure with hypoxia Disposition: DC09 OP ADMIT IP TO THIS HOSP Is pt being admited?: Yes Does the pt Need Aspirin: Yes Condition: Fair
[2019-01-26] MEDS ORDERED: COLACE PO ONE (10:51)
[2019-01-26] MEDS ORDERED: LEVAQUIN PO ONE (10:53)
[2019-01-26] MEDS ORDERED: DUONEB *Not for PRN Use IH ONE (10:53)
[2019-01-26] MEDS ORDERED: DELTASONE PO ONE (10:53)
[2019-01-26] MEDS ORDERED: BABY ASPIRIN PO ONE (11:07)
--- NOTE | 2019-01-26 12:30 | History and Physical Report ---
History of Present Illness Chief complaint: He is weak, and has had some fever History of present illness: 83 YO Male with COPD, HTN, HLD, GERD, Pulmonary HTN, OA, Migraine headache, CHF, Valvular Disease NOS, Bladder Cancer presents to ED for evaluation. Pt provides limited history. Pt history obtained from family who is at bedside during exam and interview. As per family, the patient has experienced progressive weakness over the past 4-5 days. Pt has experienced runny nose, and dry cough, with subsequent development of productive cough with yellowish sputum, as well as subjective fever. Pt transported to [facility] via private vehicle. Pt seen and evaluated in ED and found to have symptoms consistent with NSTEMI as well as SIRS, and CHF Decompensation. Cardiology notified by ED. Pt admitted to telemetry. Cardiology consulted. Prior admission 11/24/18 reviewed. All medication listed at time of admission was reconciled. , Past History Past Medical History: arthritis, cancer, GERD, heart failure, hypertension, hyperlipidemia, migraines, other (pulmonary HTN) Past Surgical History: Other (Valve Surgery) Social history: . denies: smoking, alcohol abuse Family history: hypertension Medications and Allergies Allergies Allergy/AdvReac Type Severity Reaction Status Date / Time No Known Allergies Allergy Verified 11/11/18 08:08 Home Medications Medication Instructions Recorded Confirmed Last Taken Type cloNIDine [Catapres] 0.2 mg PO BID 07/04/18 01/26/19 01/25/19 History hydrALAZINE [Apresoline TAB] 100 mg PO BID tab 07/09/18 01/26/19 01/25/19 Rx Metoprolol [Lopressor] 25 mg PO QDAY 01/26/19 01/26/19 01/25/19 History Review of Systems Constitutional: fever, weakness Ears, nose, mouth and throat: nasal congestion, sore throat, no ear discharge, no decreased hearing Cardiovascular: no chest pain, no palpitations, no syncope, no dyspnea on exertion Respiratory: cough, cough with sputum, congestion Gastrointestinal: no abdominal pain, no vomiting, no diarrhea, no change in bowel habits Genitourinary Male: no dysuria, no flank pain, no urinary frequency, no incontinence Rectal: no pain, no incontinence, no bleeding Musculoskeletal: no neck stiffness, no shooting arm pain, no low back pain, no leg numbness/tingling Integumentary: no rash, no redness, no wounds, no jaundice Neurological: no head injury, no paralysis, no parathesias Psychiatric: no memory loss, no change in sleep habits, no insomnia, no change in appetite Endocrine: no cold intolerance, no polyphagia, no polydipsia, no increase in ring/shoe/hat size, no deepening of the voice Hematologic/Lymphatic: no easy bruising, no easy bleeding, no lymphadenopathy Allergic/Immunologic: no urticaria, no allergic rhinitis, no persistent infections, no gluten intolerance Exam - Constitutional Vitals: Temp Pulse Resp BP Pulse Ox 99.8 F H 89 15 132/78 96 01/26/19 09:23 01/26/19 12:00 01/26/19 12:00 01/26/19 12:00 01/26/19 11:45 General appearance: Present: no acute distress, well-nourished - EENT Eyes: Present: PERRL ENT: hearing intact, clear oral mucosa - Neck Neck: Present: supple, normal ROM - Respiratory Respiratory effort: normal Respiratory: bilateral: CTA - Cardiovascular Heart Sounds: Present: S1 & S2. Absent: rub, click - Extremities Extremities: pulses symmetrical, No edema Peripheral Pulses: within normal limits - Abdominal General gastrointestinal: Present: soft, non-tender, non-distended, normal bowel sounds Male genitourinary: Present: normal - Integumentary Integumentary: Present: clear, warm, dry - Musculoskeletal Musculoskeletal: gait normal, strength equal bilaterally - Psychiatric Psychiatric: appropriate mood/affect, intact judgment & insight - Neurologic Neurologic: CNII-XII intact, moves all extremities Results - Labs CBC & Chem 7: 01/27/19 06:18 01/27/19 06:18 Labs: Abnormal lab results 01/26/19 01/26/19 01/26/19 Range/Units 09:29 09:29 09:29 WBC 16.4 H (4.5-11.0) K/mm3 [place] % (Auto) 12.1 H (0.0-7.3) % [place] # 2.0 H (0.0-0.8) K/mm3 Eos # 0.6 H (0.0-0.4) K/mm3 Seg Neutrophils # 10.8 H (1.8-7.7) K/mm3 BUN 26 H (9-20) mg/dL Glucose 154 H (75-100) mg/dL Troponin T 0.123 H* (0.00-0.029) ng/mL NT-Pro-B Natriuret Pep 983.7 H (0-900) pg/mL Albumin 3.6 L (3.9-5) g/dL Assessment and Plan - Patient Problems (1) COPD with exacerbation Current Visit: Yes Status: Acute Plan to address problem: Supplemental oxygen, nebulizer therapy, Iv antibiotic therapy, supportive care, NIPPV as clinically indicated. (2) SIRS (systemic inflammatory response syndrome) Current Visit: Yes Status: Acute Plan to address problem: IV antibiotic therapy, CBC, CMP, Chest x ray, urinalysis, (3) NSTEMI (non-ST elevated myocardial infarction) Current Visit: Yes Status: Acute Plan to address problem: Serial cardiac enzymes which are trending down, serial EKG, Telemetry, morphine, supplemental oxygen, nitro, aspirin, further care as per cardiology team. NO ischemic changes on EKG at time of admission. (4) GERD (gastroesophageal reflux disease) Current Visit: Yes Status: Acute Qualifiers: Esophagitis presence: without esophagitis Qualified Code(s): K21.9 - Gastro-esophageal reflux disease without esophagitis Plan to address problem: PPI therapy, supportive care. (5) HTN (hypertension) Current Visit: Yes Status: Acute Qualifiers: Hypertension type: essential hypertension Qualified Code(s): I10 - Essential (primary) hypertension Plan to address problem: Monitor BP Q shift, continue medical management. (6) HLD (hyperlipidemia) Current Visit: Yes Status: Acute Qualifiers: Hyperlipidemia type: mixed hyperlipidemia Qualified Code(s): E78.2 - Mixed hyperlipidemia Plan to address problem: statin therapy as indicated, lowfat, low cholesterol diet (7) Pulmonary hypertension Current Visit: Yes Status: Acute Plan to address problem: Supplemental oxygen, nebulizer therapy, supportive care. (8) Diastolic CHF, acute Current Visit: No Status: Acute Plan to address problem: Blood pressure control, cardiology consulted, strict I/O, daily weight, monitor uop q shift, monitor fluid balance, (9) DVT prophylaxis Current Visit: No Status: Acute Plan to address problem: SCD to BLE while in bed, pt ambulatory
[2019-01-26] MEDS ORDERED: MORPHINE IV PRN (12:32)
[2019-01-26] MEDS ORDERED: PERCOCET 5/325 PO PRN (12:32)
[2019-01-26] MEDS ORDERED: SODIUM CHLORIDE FLUSH SYRINGE 10 ML IV PRN ×2 (12:32)
[2019-01-26] MEDS ORDERED: TYLENOL PO PRN (12:32)
[2019-01-26] MEDS ORDERED: NITROSTAT SL PRN (12:32)
[2019-01-26] MEDS ORDERED: ZOFRAN IV PRN (12:32)
--- NOTE | 2019-01-26 15:13 | Cat Scan Report ---
CTA CHEST WITH CONTRAST INDICATION : chest pain. TECHNIQUE: Axial imaging performed through the chest, with contrast bolus timing set to maximize opa cification of the pulmonary arteries. Sagittal and coronal reformatted images. 3-plane MIP reformatte d images were obtained. All CT scans at this location are performed using CT dose reduction for ALAR A by means of automated exposure control. 60 cc of Omnipaque 350 was administered intravenously. COMPARISON: None FINDINGS: Bolus: Contrast bolus timing is adequate. PTE: No filling defect is present to suggest PTE. Mediastinum: Previous CABG changes are suspected. There is mild cardiomegaly. No pericardial effusio n. The aorta is patent and contains scattered calcific plaques. No aneurysm or dissection. No pathol ogic mediastinal adenopathy. Lungs: Mild to moderate centrilobular emphysematous changes are noted in both upper lung zones. Inte rstitial markings are slightly prominent in the lower right upper lobe and right lower lobe. This pro bably represents mild congestive changes. If fevers present early infiltrate could be considered. No consolidation, nodule, pleural effusion or pneumothorax. Bones: Degenerative changes in the spine with nothing acute. Upper abdomen: Limited imaging of the upper abdomen shows nothing acute. IMPRESSION: No evidence for pulmonary embolus. Mild cardiomegaly. Probable congestive changes in the right lower lung as described. Signer Name: Huan Talbot Jr, MD Signed: 01/26/2019 3:08 PM Workstation Name: [id number]
--- NOTE | 2019-01-26 15:33 | Event Note ---
Date: 01/26/19 Patient's primary seat pack inspector is [facility]. We will defer to them for cardiac care.
[2019-01-26] MEDS: APRESOLINE PO SCH (21:17)
[2019-01-26] MEDS: CATAPRES PO SCH (21:18)
[2019-01-26] MEDS: SODIUM CHLORIDE FLUSH SYRINGE 10 ML IV SCH (21:19)
[2019-01-27 06:35] LABS: Hematocrit 35.8 % (35.5-45.6); Lymphocytes # (Auto) 2.3 K/mm3 (1.2-5.4); Mean Corpuscular HGB Conc 34 % (32-34); Mean Corpuscular Volume 88 fl (84-94); Monocytes # (Auto) 1.3 K/mm3 (0.0-0.8); Monocytes % (Auto) 9.1 % (0.0-7.3); Platelet Count 280 K/mm3 (140-440); Red Blood Count 4.06 M/mm3 (3.65-5.03); Red Cell Distribution Width 15.4 % (13.2-15.2)
[2019-01-27 06:59] LABS: Alanine Aminotransferase 18 units/L (7-56); Albumin 3.3 g/dL (3.9-5); BUN/Creatinine Ratio 23; Blood Urea Nitrogen 25 mg/dL (9-20); Calcium 8.4 mg/dL (8.4-10.2); Hemolysis Index 2
[2019-01-27 08:13] LABS: Color,Urine Yellow (Yellow)
[2019-01-27 08:14] LABS: Bilirubin,Urine NEG (Negative); Blood,Urine NEG (Negative); Mucus,Urine FEW /HPF; Urobilinogen,Urine < 2.0 mg/dL (<2.0)
[2019-01-27] MEDS: CATAPRES PO SCH ×2 (10:37→21:35)
[2019-01-27] MEDS: APRESOLINE PO SCH ×2 (10:37→21:35)
[2019-01-27] MEDS: SODIUM CHLORIDE FLUSH SYRINGE 10 ML IV SCH ×2 (10:38→21:37)
[2019-01-27] MEDS: LOPRESSOR PO SCH (10:38)
[2019-01-27] MEDS ORDERED: PROVENTIL IH PRN (12:00)
[2019-01-27] MEDS: PULMICORT IH SCH ×2 (12:17→19:37)
[2019-01-27] MEDS: BROVANA NEBU IH SCH ×2 (12:17→19:37)
--- NOTE | 2019-01-27 14:17 | Consultation ---
History of Present Illness Consult date: 01/27/19 Requesting physician: LENNY OSPINA Consult reason: shortness of breath History of present illness: Mr. Wilson is an 83 y/o male admitted with SOB and cough. He speaks only Vincentian, so this HPI was obtained with phone lead machinist assistance. He became progressively weaker with worsening SOB and a productive cough over the past 4-5 days. He was also febrile. On arrival to the ED, his initial troponin was 0.336. CTA was negative for PE, but found mild RLL congestive changes. A CXR found pulmonary venous hypertension. He has a history of hypertension, CAD s/p CABG (2004, per patient), pulmonary hypertension, chronic HFrEF, MVR s/p repair, chronic RBBB, carotid artery occlusion and prostate cancer and follows with Dr. Lal in our office. An echocardiogram in November found an EF of 40-45%, mild pulmonary htn, moderate TR and calcified aortic & mitral valves with [id number] stenosis. A stress test in 2009 found no evidence of ischemia or infarction. Past History Past Medical History: arthritis, CAD (s/p CABG), cancer, GERD, heart failure, hy pertension, hyperlipidemia, migraines, other (pulmonary HTN) Past Surgical History: Other (Valve Surgery) Social history: . denies: smoking, alcohol abuse Family history: hypertension Medications and Allergies Allergies Allergy/AdvReac Type Severity Reaction Status Date / Time No Known Allergies Allergy Verified 11/11/18 08:08 Home Medications Medication Instructions Recorded Confirmed Last Taken Type cloNIDine [Catapres] 0.2 mg PO BID 07/04/18 01/26/19 01/25/19 History hydrALAZINE [Apresoline TAB] 100 mg PO BID tab 07/09/18 01/26/19 01/25/19 Rx Metoprolol [Lopressor] 25 mg PO QDAY 01/26/19 01/26/19 01/25/19 History Active Meds: Active Medications Acetaminophen (Tylenol) 650 mg PO Q4H PRN PRN Reason: Pain MILD(1-3)/Fever >100.5/BRYAN Albuterol (Proventil) 2.5 mg IH Q4HRT PRN PRN Reason: Shortness Of Breath Arformoterol Tartrate (Brovana Nebu) 15 mcg IH Q12HRT [facility] Last Admin: 01/27/19 12:17 Dose: 15 mcg Documented by: Budesonide (Pulmicort) 0.5 mg IH Q12HRT [facility] Last Admin: 01/27/19 12:17 Dose: 0.5 mg Documented by: Clonidine HCl (Catapres) 0.2 mg PO BID [facility] Last Admin: 01/27/19 10:37 Dose: 0.2 mg Documented by: Hydralazine HCl (Apresoline) 100 mg PO BID [facility] Last Admin: 01/27/19 10:37 Dose: 100 mg Documented by: Metoprolol Tartrate (Lopressor) 25 mg PO QDAY [facility] Last Admin: 01/27/19 10:38 Dose: 25 mg Documented by: Morphine Sulfate (Morphine) 1 mg IV Q4H PRN PRN Reason: Pain, Moderate (4-6) Nitroglycerin (Nitrostat) 0.4 mg SL Q5M PRN PRN Reason: Chest Pain Ondansetron HCl (Zofran) 4 mg IV Q8H PRN PRN Reason: Nausea And Vomiting Oxycodone/Acetaminophen (Percocet 5/325) 1 tab PO Q6H PRN PRN Reason: Pain, Moderate (4-6) Sodium Chloride (Sodium Chloride Flush Syringe 10 Ml) 10 ml IV BID [facility] Last Admin: 01/27/19 10:38 Dose: 10 ml Documented by: Sodium Chloride (Sodium Chloride Flush Syringe 10 Ml) 10 ml IV PRN PRN PRN Reason: LINE FLUSH Review of Systems All systems: negative Respiratory: shortness of breath Physical Examination Vital Signs Temp Pulse Resp BP Pulse Ox 99.8 F H 107 H 18 174/76 94 01/26/19 09:23 01/26/19 09:23 01/26/19 09:23 01/26/19 09:23 01/26/19 09:23 General appearance: no acute distress HEENT: Positive: PERRL Neck: Positive: trachea midline Cardiac: Positive: Reg Rate and Rhythm Lungs: Positive: Wheezes Abdomen: Positive: Unremarkable Male genitourinary: Positive: deferred Skin: Positive: Clear Musculoskeletal: No Pain Extremities: Present: normal Results 01/27/19 06:18 01/27/19 06:18 Cardiac Enzymes 01/27/19 Range/Units 06:18 AST 23 (5-40) units/L CBC 01/27/19 Range/Units 06:18 WBC 14.5 H (4.5-11.0) K/mm3 RBC 4.06 (3.65-5.03) M/mm3 Hgb 12.0 (11.8-15.2) gm/dl Hct 35.8 (35.5-45.6) % Plt Count 280 (140-440) K/mm3 Lymph # 2.3 (1.2-5.4) K/mm3 [place] # 1.3 H (0.0-0.8) K/mm3 Eos # 0.0 (0.0-0.4) K/mm3 Baso # 0.0 (0.0-0.1) K/mm3 Comprehensive Metabolic Panel 01/27/19 Range/Units 06:18 Sodium 138 (137-145) mmol/L Potassium 4.0 (3.6-5.0) mmol/L Chloride 101.4 (98-107) mmol/L Carbon Dioxide 25 (22-30) mmol/L BUN 25 H (9-20) mg/dL Creatinine 1.1 (0.8-1.5) mg/dL Glucose 120 H (75-100) mg/dL Calcium 8.4 (8.4-10.2) mg/dL AST 23 (5-40) units/L ALT 18 (7-56) units/L Alkaline Phosphatase 66 (35-129) units/L Total Protein 6.9 (6.3-8.2) g/dL Albumin 3.3 L (3.9-5) g/dL - Imaging and Cardiology Echo: report reviewed (11/2018: EF 40-45%, mild LVH, trivial pericardial effusion, mild phtn, mod TR, calcified AV&MV with mild-mod stenosis) EKG interpretations - Telemetry EKG Rhythm: Sinus Rhythm AV and intraventricular conduction: right bundle branch block Assessment and Plan Mr. Wilson is an 83 y/o male admitted with SOB, cough and fever. Current presentation appears respiratory in origin. Troponins elevated, but nonspecific and likely r/t respiratory issues; are now downtrending. He denies CP and EKG shows only chronic changes when compared with previous images. Continue current cardiac management. Will consider ischemic workup when stabilized from a respiratory standpoint. The patient has been seen in conjunction with Dr. Romo, who agrees with the assessment and plan. - Patient Problems (1) Acute respiratory failure with hypoxia Current Visit: Yes Status: Acute (2) Cardiomyopathy Current Visit: Yes Status: Chronic (3) Fever Current Visit: Yes Status: Acute (4) GERD (gastroesophageal reflux disease) Current Visit: Yes Status: Chronic Qualifiers: Esophagitis presence: without esophagitis Qualified Code(s): K21.9 - Gastro-esophageal reflux disease without esophagitis (5) HTN (hypertension) Current Visit: Yes Status: Chronic Qualifiers: Hypertension type: essential hypertension Qualified Code(s): I10 - Es sential (primary) hypertension (6) Cough Current Visit: No Status: Acute (7) Left carotid artery stenosis Current Visit: No Status: Chronic (8) Pulmonary hypertension Current Visit: No Status: Chronic (9) Asthma Current Visit: No Status: Acute Qualifiers: Asthma severity: unspecified severity (10) CAD (coronary artery disease) Current Visit: No Status: Chronic Qualifiers: Coronary Disease-Associated Artery/Lesion type: [place] artery [place] vs. transplanted heart: [place] heart (11) Hx of valvular heart disease Current Visit: No Status: Chronic (12) Right bundle branch block Current Visit: No Status: Chronic
--- NOTE | 2019-01-27 15:11 | Progress Note ---
Assessment and Plan Assessment and plan: COPD with exacerbation Supplemental oxygen, nebulizer therapy, Iv antibiotic therapy, supportive care, NIPPV as clinically indicated. SIRS (systemic inflammatory response syndrome) IV antibiotic therapy, CBC, CMP, Chest x ray, urinalysis, Elevated Troponin Serial cardiac enzymes which are trending down, serial EKG, Telemetry, morphine, supplemental oxygen, nitro, aspirin, further care as per cardiology team. NO ischemic changes on EKG at time of admission or on repeat. GERD (gastroesophageal reflux disease) PPI therapy, supportive care. HTN (hypertension) Monitor BP Q shift, continue medical management. HLD (hyperlipidemia) statin therapy as indicated, lowfat, low cholesterol diet Pulmonary hypertension Supplemental oxygen, nebulizer therapy, supportive care. Diastolic CHF, acute Blood pressure control, cardiology consulted, strict I/O, daily weight, monitor uop q shift, monitor fluid balance, DVT prophylaxis SCD to BLE while in bed, pt ambulatory History Interval history: Pt c.o h/a and fever Hospitalist Physical - Constitutional Vitals: Temp Pulse Resp BP Pulse Ox 98.3 F 66 20 159/83 96 01/27/19 10:53 01/27/19 12:17 01/27/19 12:17 01/27/19 10:53 01/27/19 12:17 General appearance: Present: no acute distress - EENT Eyes: Present: PERRL, EOM intact ENT: hearing intact, clear oral mucosa, dentition normal - Neck Neck: Present: supple, normal ROM - Respiratory Respiratory effort: normal Respiratory: bilateral: CTA - Cardiovascular Rhythm: regular Heart Sounds: Present: S1 & S2. Absent: gallop, rub - Extremities Extremities: no ischemia, No edema, Full ROM - Abdominal General gastrointestinal: soft, non-tender, non-distended, normal bowel sounds - Integumentary Integumentary: Present: clear, warm, dry - Neurologic Neurologic: CNII-XII intact, moves all extremities Results - Labs CBC & Chem 7: 01/27/19 06:18 01/27/19 06:18 Labs: Laboratory Last Values WBC 14.5 K/mm3 (4.5-11.0) H 01/27/19 06:18 RBC 4.06 M/mm3 (3.65-5.03) 01/27/19 06:18 Hgb 12.0 gm/dl (11.8-15.2) 01/27/19 06:18 Hct 35.8 % (35.5-45.6) 01/27/19 06:18 MCV 88 fl (84-94) 01/27/19 06:18 MCH 30 pg (28-32) 01/27/19 06:18 MCHC 34 % (32-34) 01/27/19 06:18 RDW 15.4 % (13.2-15.2) H 01/27/19 06:18 Plt Count 280 K/mm3 (140-440) 01/27/19 06:18 Lymph % (Auto) 16.0 % (13.4-35.0) 01/27/19 06:18 [place] % (Auto) 9.1 % (0.0-7.3) H 01/27/19 06:18 Eos % (Auto) 0.0 % (0.0-4.3) 01/27/19 06:18 Baso % (Auto) 0.0 % (0.0-1.8) 01/27/19 06:18 Lymph # 2.3 K/mm3 (1.2-5.4) 01/27/19 06:18 [place] # 1.3 K/mm3 (0.0-0.8) H 01/27/19 06:18 Eos # 0.0 K/mm3 (0.0-0.4) 01/27/19 06:18 Baso # 0.0 K/mm3 (0.0-0.1) 01/27/19 06:18 Seg Neutrophils % 74.9 % (40.0-70.0) H 01/27/19 06:18 Seg Neutrophils # 10.8 K/mm3 (1.8-7.7) H 01/27/19 06:18 400.00 ng/mlDDU (0-234) H 01/26/19 12:51 Sodium 138 mmol/L (137-145) 01/27/19 06:18 Potassium 4.0 mmol/L (3.6-5.0) 01/27/19 06:18 Chloride 101.4 mmol/L (98-107) 01/27/19 06:18 Carbon Dioxide 25 mmol/L (22-30) 01/27/19 06:18 16 mmol/L 01/27/19 06:18 BUN 25 mg/dL (9-20) H 01/27/19 06:18 1.1 mg/dL (0.8-1.5) 01/27/19 06:18 Estimated GFR > 60 ml/min 01/27/19 06:18 23 % 01/27/19 06:18 Glucose 120 mg/dL (75-100) H 01/27/19 06:18 Calcium 8.4 mg/dL (8.4-10.2) 01/27/19 06:18 0.30 mg/dL (0.1-1.2) 01/27/19 06:18 AST 23 units/L (5-40) 01/27/19 06:18 ALT 18 units/L (7-56) 01/27/19 06:18 66 units/L (35-129) 01/27/19 06:18 0.059 ng/mL (0.00-0.029) H D 01/26/19 18:02 NT-Pro-B Natriuret Pep 983.7 pg/mL (0-900) H 01/26/19 09:29 6.9 g/dL (6.3-8.2) 01/27/19 06:18 3.3 g/dL (3.9-5) L 01/27/19 06:18 0.9 % 01/27/19 06:18 Triglycerides 111 mg/dL (2-149) 01/26/19 09:29 Cholesterol 152 mg/dL (50-199) 01/26/19 09:29 91 mg/dL (50-130) 01/26/19 09:29 53 mg/dL (40-59) 01/26/19 09:29 2.86 % 01/26/19 09:29 Yellow (Yellow) 01/27/19 Unknown Clear (Clear) 01/27/19 Unknown 6.0 (5.0-7.0) 01/27/19 Unknown Ur Specific [place] 1.033 (1.003-1.030) H 01/27/19 Unknown 100 mg/dl mg/dL (Negative) 01/27/19 Unknown Neg mg/dL (Negative) 01/27/19 Unknown Neg mg/dL (Negative) 01/27/19 Unknown Neg (Negative) 01/27/19 Unknown Neg (Negative) 01/27/19 Unknown Neg (Negative) 01/27/19 Unknown < 2.0 mg/dL (<2.0) 01/27/19 Unknown Ur Leukocyte Esterase Neg (Negative) 01/27/19 Unknown 1.0 /HPF (0.0-6.0) 01/27/19 Unknown 3.0 /HPF (0.0-6.0) 01/27/19 Unknown U Epithel Cells (Auto) < 1.0 /HPF (0-13.0) 01/27/19 Unknown Few /HPF 01/27/19 Unknown Active Medications - Current Medications Current Medications: Generic Name Dose Route Start Last Admin Trade Name Freq PRN Reason Stop Dose Admin Acetaminophen 650 mg 01/26/19 12:32 Tylenol PO Q4H PRN Pain MILD(1-3)/Fever >100.5/BRYAN Albuterol 2.5 mg 01/27/19 12:00 Proventil IH Q4HRT PRN Shortness Of Breath Arformoterol Tartrate 15 mcg 01/27/19 12:00 01/27/19 12:17 Brovana Nebu IH 15 mcg Q12HRT TERESA Administration Budesonide 0.5 mg 01/27/19 12:00 01/27/19 12:17 Pulmicort IH 0.5 mg Q12HRT TERESA Administration Clonidine HCl 0.2 mg 01/26/19 22:00 01/27/19 10:37 Catapres PO 0.2 mg BID TERESA Administration Hydralazine HCl 100 mg 01/26/19 22:00 01/27/19 10:37 Apresoline PO 100 mg BID TERESA Administration Metoprolol Tartrate 25 mg 01/27/19 10:00 01/27/19 10:38 Lopressor PO 25 mg QDAY TERESA Administration Morphine Sulfate 1 mg 01/26/19 12:32 Morphine IV Q4H PRN Pain, Moderate (4-6) Nitroglycerin 0.4 mg 01/26/19 12:32 Nitrostat SL Q5M PRN Chest Pain Ondansetron HCl 4 mg 01/26/19 12:32 Zofran IV Q8H PRN Nausea And Vomiting Oxycodone/Acetaminophen 1 tab 01/26/19 12:32 Percocet 5/325 PO Q6H PRN Pain, Moderate (4-6) Sodium Chloride 10 ml 01/26/19 22:00 01/27/19 10:38 Sodium Chloride Flush Syringe 10 Ml IV 10 ml BID TERESA Administration Sodium Chloride 10 ml 01/26/19 12:32 Sodium Chloride Flush Syringe 10 Ml IV PRN PRN LINE FLUSH
[2019-01-27] MEDS: TESSALON PERLES PO SCH (23:22)
[2019-01-28] MEDS: TESSALON PERLES PO SCH ×5 (01:25→23:41)
[2019-01-28] MEDS: PULMICORT IH SCH ×2 (07:14→20:48)
[2019-01-28] MEDS: BROVANA NEBU IH SCH ×2 (07:14→20:48)
--- NOTE | 2019-01-28 09:37 | Progress Note ---
Assessment and Plan Assessment and plan: COPD with exacerbation Supplemental oxygen, nebulizer therapy, Iv antibiotic therapy, supportive care, NIPPV as clinically indicated. Right lower lobe pneumonia. CTA revealed right lower lobe infiltrate. Continue IV antibiotics. Follow-up chest x-ray SIRS (systemic inflammatory response syndrome) IV antibiotic therapy, CBC, CMP, Chest x ray, urinalysis, Elevated Troponin Serial cardiac enzymes which are trending down, serial EKG, Telemetry, morphine, supplemental oxygen, nitro, aspirin, further care as per cardiology team. NO ischemic changes on EKG at time of admission or on repeat. GERD (gastroesophageal reflux disease) PPI therapy, supportive care. HTN (hypertension) Monitor BP Q shift, continue medical management. HLD (hyperlipidemia) statin therapy as indicated, lowfat, low cholesterol diet Pulmonary hypertension Supplemental oxygen, nebulizer therapy, supportive care. Diastolic CHF, acute Blood pressure control, cardiology consulted, strict I/O, daily weight, monitor uop q shift, monitor fluid balance, DVT prophylaxis SCD to BLE while in bed, pt ambulatory History Interval history: Pt c.o h/a and fever Hospitalist Physical - Constitutional Vitals: Temp Pulse Resp BP Pulse Ox 98.0 F 69 18 171/76 98 01/28/19 08:06 01/28/19 08:06 01/28/19 08:06 01/28/19 08:06 01/28/19 08:56 General appearance: Present: no acute distress - EENT Eyes: Present: PERRL, EOM intact ENT: hearing intact, clear oral mucosa, dentition normal - Neck Neck: Present: supple, normal ROM - Respiratory Respiratory effort: normal Respiratory: bilateral: CTA - Cardiovascular Rhythm: regular Heart Sounds: Present: S1 & S2. Absent: gallop, rub - Extremities Extremities: no ischemia, No edema, Full ROM - Abdominal General gastrointestinal: soft, non-tender, non-distended, normal bowel sounds - Integumentary Integumentary: Present: clear, warm, dry - Neurologic Neurologic: CNII-XII intact, moves all extremities Results - Labs CBC & Chem 7: 01/27/19 06:18 01/27/19 06:18 Labs: Laboratory Last Values WBC 14.5 K/mm3 (4.5-11.0) H 01/27/19 06:18 RBC 4.06 M/mm3 (3.65-5.03) 01/27/19 06:18 Hgb 12.0 gm/dl (11.8-15.2) 01/27/19 06:18 Hct 35.8 % (35.5-45.6) 01/27/19 06:18 MCV 88 fl (84-94) 01/27/19 06:18 MCH 30 pg (28-32) 01/27/19 06:18 MCHC 34 % (32-34) 01/27/19 06:18 RDW 15.4 % (13.2-15.2) H 01/27/19 06:18 Plt Count 280 K/mm3 (140-440) 01/27/19 06:18 Lymph % (Auto) 16.0 % (13.4-35.0) 01/27/19 06:18 [place] % (Auto) 9.1 % (0.0-7.3) H 01/27/19 06:18 Eos % (Auto) 0.0 % (0.0-4.3) 01/27/19 06:18 Baso % (Auto) 0.0 % (0.0-1.8) 01/27/19 06:18 Lymph # 2.3 K/mm3 (1.2-5.4) 01/27/19 06:18 [place] # 1.3 K/mm3 (0.0-0.8) H 01/27/19 06:18 Eos # 0.0 K/mm3 (0.0-0.4) 01/27/19 06:18 Baso # 0.0 K/mm3 (0.0-0.1) 01/27/19 06:18 Seg Neutrophils % 74.9 % (40.0-70.0) H 01/27/19 06:18 Seg Neutrophils # 10.8 K/mm3 (1.8-7.7) H 01/27/19 06:18 400.00 ng/mlDDU (0-234) H 01/26/19 12:51 Sodium 138 mmol/L (137-145) 01/27/19 06:18 Potassium 4.0 mmol/L (3.6-5.0) 01/27/19 06:18 Chloride 101.4 mmol/L (98-107) 01/27/19 06:18 Carbon Dioxide 25 mmol/L (22-30) 01/27/19 06:18 16 mmol/L 01/27/19 06:18 BUN 25 mg/dL (9-20) H 01/27/19 06:18 1.1 mg/dL (0.8-1.5) 01/27/19 06:18 Estimated GFR > 60 ml/min 01/27/19 06:18 23 % 01/27/19 06:18 Glucose 120 mg/dL (75-100) H 01/27/19 06:18 Calcium 8.4 mg/dL (8.4-10.2) 01/27/19 06:18 0.30 mg/dL (0.1-1.2) 01/27/19 06:18 AST 23 units/L (5-40) 01/27/19 06:18 ALT 18 units/L (7-56) 01/27/19 06:18 66 units/L (35-129) 01/27/19 06:18 0.059 ng/mL (0.00-0.029) H D 01/26/19 18:02 NT-Pro-B Natriuret Pep 983.7 pg/mL (0-900) H 01/26/19 09:29 6.9 g/dL (6.3-8.2) 01/27/19 06:18 3.3 g/dL (3.9-5) L 01/27/19 06:18 0.9 % 01/27/19 06:18 Triglycerides 111 mg/dL (2-149) 01/26/19 09:29 Cholesterol 152 mg/dL (50-199) 01/26/19 09:29 91 mg/dL (50-130) 01/26/19 09:29 53 mg/dL (40-59) 01/26/19 09:29 2.86 % 01/26/19 09:29 Yellow (Yellow) 01/27/19 Unknown Clear (Clear) 01/27/19 Unknown 6.0 (5.0-7.0) 01/27/19 Unknown Ur Specific [place] 1.033 (1.003-1.030) H 01/27/19 Unknown 100 mg/dl mg/dL (Negative) 01/27/19 Unknown Neg mg/dL (Negative) 01/27/19 Unknown Neg mg/dL (Negative) 01/27/19 Unknown Neg (Negative) 01/27/19 Unknown Neg (Negative) 01/27/19 Unknown Neg (Negative) 01/27/19 Unknown < 2.0 mg/dL (<2.0) 01/27/19 Unknown Ur Leukocyte Esterase Neg (Negative) 01/27/19 Unknown 1.0 /HPF (0.0-6.0) 01/27/19 Unknown 3.0 /HPF (0.0-6.0) 01/27/19 Unknown U Epithel Cells (Auto) < 1.0 /HPF (0-13.0) 01/27/19 Unknown Few /HPF 01/27/19 Unknown Active Medications - Current Medications Current Medications: Generic Name Dose Route Start Last Admin Trade Name Freq PRN Reason Stop Dose Admin Acetaminophen 650 mg 01/26/19 12:32 Tylenol PO Q4H PRN Pain MILD(1-3)/Fever >100.5/BRYAN Albuterol 2.5 mg 01/27/19 12:00 01/27/19 15:11 Proventil IH 2.5 mg Q4HRT PRN Administration Shortness Of Breath Arformoterol Tartrate 15 mcg 01/27/19 12:00 01/28/19 07:14 Brovana Nebu IH 15 mcg Q12HRT TERESA Administration Benzonatate 100 mg 01/27/19 22:00 01/28/19 06:45 Tessalon Perles PO 100 mg Q6HR TERESA Administration Budesonide 0.5 mg 01/27/19 12:00 01/28/19 07:14 Pulmicort IH 0.5 mg Q12HRT TERESA Administration Clonidine HCl 0.2 mg 01/26/19 22:00 01/27/19 21:35 Catapres PO 0.2 mg BID TERESA Administration Hydralazine HCl 100 mg 01/26/19 22:00 01/27/19 21:35 Apresoline PO 100 mg BID TERESA Administration Levofloxacin/Dextrose 750 mg in 150 mls @ 100 mls/hr 01/28/19 10:00 Levaquin 750mg/150ml IV Q24HR TERESA Protocol Ceftriaxone Sodium 1 gm in 50 mls @ 100 mls/hr 01/28/19 10:00 Rocephin/Ns 1 Gm/50 Ml IV Q24HR TERESA Protocol Metoprolol Tartrate 25 mg 01/27/19 10:00 01/27/19 10:38 Lopressor PO 25 mg QDAY TERESA Administration Morphine Sulfate 1 mg 01/26/19 12:32 Morphine IV Q4H PRN Pain, Moderate (4-6) Nitroglycerin 0.4 mg 01/26/19 12:32 Nitrostat SL Q5M PRN Chest Pain Ondansetron HCl 4 mg 01/26/19 12:32 Zofran IV Q8H PRN Nausea And Vomiting Oxycodone/Acetaminophen 1 tab 01/26/19 12:32 Percocet 5/325 PO Q6H PRN Pain, Moderate (4-6) Sodium Chloride 10 ml 01/26/19 22:00 01/27/19 21:37 Sodium Chloride Flush Syringe 10 Ml IV 10 ml BID TERESA Administration Sodium Chloride 10 ml 01/26/19 12:32 Sodium Chloride Flush Syringe 10 Ml IV PRN PRN LINE FLUSH
[2019-01-28] MEDS ORDERED: ROCEPHIN/NS 1 GM/50 ML 1 GM/50 ML BAG IV SCH (10:00)
[2019-01-28] MEDS: LEVAQUIN 750MG/150ML 750 MG/150 ML BAG IV SCH (10:05)
[2019-01-28] MEDS: LOPRESSOR PO SCH ×2 (10:06→21:35)
[2019-01-28] MEDS: APRESOLINE PO SCH ×2 (10:06→21:36)
[2019-01-28] MEDS: CATAPRES PO SCH ×2 (10:06→21:36)
[2019-01-28] MEDS: SODIUM CHLORIDE FLUSH SYRINGE 10 ML IV SCH ×2 (10:07→21:37)
--- NOTE | 2019-01-28 13:23 | Progress Note ---
Assessment and Plan The patient's cardiac status is stable. Will increase metoprolol to optimize blood pressure. Will consider ischemic workup when he is more stable from a respiratory standpoint. The patient has been seen in conjunction with Dr. Romo, who agrees with the assessment and plan of care. - Patient Problems (1) Acute respiratory failure with hypoxia Current Visit: Yes Status: Acute (2) Cardiomyopathy Current Visit: Yes Status: Chronic (3) Fever Current Visit: Yes Status: Acute (4) GERD (gastroesophageal reflux disease) Current Visit: Yes Status: Chronic Qualifiers: Esophagitis presence: without esophagitis Qualified Code(s): K21.9 - Gastro-esophageal reflux disease without esophagitis (5) HTN (hypertension) Current Visit: Yes Status: Chronic Qualifiers: Hypertension type: essential hypertension Qualified Code(s): I10 - Essential (primary) hypertension (6) Cough Current Visit: No Status: Acute (7) Left carotid artery stenosis Current Visit: No Status: Chronic (8) Pulmonary hypertension Current Visit: No Status: Chronic (9) Asthma Current Visit: No Status: Acute Qualifiers: Asthma severity: unspecified severity (10) CAD (coronary artery disease) Current Visit: No Status: Chronic Qualifiers: Coronary Disease-Associated Artery/Lesion type: [place] artery [place] vs. transplanted heart: [place] heart (11) Hx of valvular heart disease Current Visit: No Status: Chronic (12) Right bundle branch block Current Visit: No Status: Chronic Subjective Date of service: 01/28/19 Interval history: Patient is sitting up in bed in NAD. Spoke with son, who translated. He currently denies CP and SOB. Telemetry reviewed - SR in 60s with PVCs. BP notably elevated and he has scattered wheezes throughout lungs. Objective Last Vital Signs Temp 98.0 F 01/28/19 08:06 Pulse 70 01/28/19 12:00 Resp 20 01/28/19 11:00 BP 171/76 01/28/19 10:06 Pulse Ox 98 01/28/19 11:00 - Physical Examination General: No Apparent Distress HEENT: Positive: PERRL Neck: Positive: trachea midline Cardiac: Positive: Reg Rate and Rhythm Lungs: Positive: Wheezes Neuro: Positive: Grossly Intact Abdomen: Positive: Unremarkable /Rectal: Other (deferred) Skin: Positive: Clear Musculoskeletal: No Pain Extremities: Present: normal - Imaging and Cardiology Echo: report reviewed (11/2018: EF 40-45%, mild LVH, trivial pericardial effusion, mild phtn, mod TR, calcified AV&MV with mild-mod stenosis) AV and intraventricular conduction: right bundle branch block
[2019-01-29] MEDS: TESSALON PERLES PO SCH ×3 (05:14→17:46)
[2019-01-29 06:08] LABS: Hematocrit 36.4 % (35.5-45.6); Hemoglobin 11.9 gm/dl (11.8-15.2); Mean Corpuscular HGB Conc 33 % (32-34); Mean Corpuscular Volume 88 fl (84-94); Platelet Count 340 K/mm3 (140-440); Red Blood Count 4.15 M/mm3 (3.65-5.03); Red Cell Distribution Width 15.3 % (13.2-15.2)
[2019-01-29 06:24] LABS: BUN/Creatinine Ratio 22; Blood Urea Nitrogen 22 mg/dL (9-20); Calcium 8.4 mg/dL (8.4-10.2); Hemolysis Index 3
[2019-01-29] MEDS: PULMICORT IH SCH ×2 (07:56→20:25)
[2019-01-29] MEDS: BROVANA NEBU IH SCH ×2 (07:56→20:25)
[2019-01-29 08:16] LABS: Platelet Estimate Consistent w Auto; RBC Morphology Normal; Total Cells Counted 100
[2019-01-29] MEDS: APRESOLINE PO SCH ×2 (10:20→21:48)
[2019-01-29] MEDS: CATAPRES PO SCH ×2 (10:20→21:48)
[2019-01-29] MEDS: LOPRESSOR PO SCH ×2 (10:21→21:48)
[2019-01-29] MEDS: LEVAQUIN 750MG/150ML 750 MG/150 ML BAG IV SCH (10:22)
[2019-01-29] MEDS: SODIUM CHLORIDE FLUSH SYRINGE 10 ML IV SCH ×2 (10:55→21:48)
--- NOTE | 2019-01-29 11:20 | Progress Note ---
Assessment and Plan Currently stable cardiac status. Cont present cardiac regimen. No plans for any additional cardiac w/u at this time. The patient has been seen in conjunction with Dr. Lizandro Nam who agrees with the assessment and plan of care. - Patient Problems (1) Acute respiratory failure with hypoxia Current Visit: Yes Status: Acute (2) Pneumonia Current Visit: Yes Status: Acute (3) CAD (coronary artery disease) Current Visit: Yes Status: Chronic Qualifiers: Coronary Disease-Associated Artery/Lesion type: [place] artery [place] vs. transplanted heart: [place] heart (4) History of coronary artery bypass graft Current Visit: Yes Status: Chronic (5) Carotid stenosis Current Visit: Yes Status: Chronic (6) S/P mitral valve repair Current Visit: Yes Status: Acute Plan to address problem: 2005 at [place] (7) Moderate tricuspid regurgitation Current Visit: Yes Status: Chronic (8) Aortic stenosis Current Visit: Yes Status: Chronic Plan to address problem: mild to mod [place] 1.38 AV mean gradient 7 (9) Mitral stenosis Current Visit: Yes Status: Chronic Plan to address problem: mild to moderate (10) Elevated troponin Current Visit: Yes Status: Acute (11) Hypertension Current Visit: Yes Status: Chronic Qualifiers: Hypertension type: essential hypertension Qualified Code(s): I10 - Essential (primary) hypertension (12) Right bundle branch block Current Visit: Yes Status: Chronic Subjective Date of service: 01/29/19 Principal diagnosis: sob Interval history: pt resting in bed, still with cough, states he is feeling a little better. family at bedside. in SR with PVCs on telemetry. Objective Last Vital Signs Temp 97.8 F 01/29/19 07:17 Pulse 62 01/29/19 10:21 Resp 20 01/29/19 07:56 BP 142/72 01/29/19 10:21 Pulse Ox 96 01/29/19 07:56 - Physical Examination General: No Apparent Distress HEENT: Positive: PERRL Neck: Positive: trachea midline Cardiac: Positive: Reg Rate and Rhythm, S1/S2 Lungs: Positive: Decreased Breath Sounds, Rhonchi Neuro: Positive: Grossly Intact Abdomen: Positive: Unremarkable /Rectal: Other (deferred) Skin: Positive: Clear Musculoskeletal: No Pain Extremities: Present: normal - Labs and Meds CBC 01/29/19 Range/Units 05:36 WBC 13.7 H (4.5-11.0) K/mm3 RBC 4.15 (3.65-5.03) M/mm3 Hgb 11.9 (11.8-15.2) gm/dl Hct 36.4 (35.5-45.6) % Plt Count 340 (140-440) K/mm3 Comprehensive Metabolic Panel 01/29/19 Range/Units 05:36 Sodium 138 (137-145) mmol/L Potassium 4.8 (3.6-5.0) mmol/L Chloride 101.2 (98-107) mmol/L Carbon Dioxide 27 (22-30) mmol/L BUN 22 H (9-20) mg/dL Creatinine 1.0 (0.8-1.5) mg/dL Glucose 110 H (75-100) mg/dL Calcium 8.4 (8.4-10.2) mg/dL - Imaging and Cardiology Echo: report reviewed (11/2018: EF 40-45%, mild LVH, trivial pericardial effusion, mild phtn, mod TR, calcified AV&MV with mild-mod stenosis) - Telemetry EKG Rhythm: Sinus Rhythm AV and intraventricular conduction: right bundle branch block
--- NOTE | 2019-01-29 11:51 | Progress Note ---
Assessment and Plan Assessment and plan: Sepsis, present on admission. Patient meets criteria given the fever, tachycardia and leukocytosis along with diagnosis of pneumonia. COPD with exacerbation Supplemental oxygen, nebulizer therapy, Iv antibiotic therapy, supportive care, NIPPV as clinically indicated. Right lower lobe pneumonia. CTA revealed right lower lobe infiltrate. Continue IV antibiotics. Follow-up chest x-ray SIRS (systemic inflammatory response syndrome) IV antibiotic therapy, CBC, CMP, Chest x ray, urinalysis, Acute hypoxic respiratory failure. Etiology secondary to above. Elevated Troponin Cardiology following. GERD (gastroesophageal reflux disease) PPI therapy, supportive care. HTN (hypertension) Monitor BP Q shift, continue medical management. HLD (hyperlipidemia) statin therapy as indicated, lowfat, low cholesterol diet Pulmonary hypertension Supplemental oxygen, nebulizer therapy, supportive care. Diastolic CHF, acute Blood pressure control, cardiology consulted, strict I/O, daily weight, monitor uop q shift, monitor fluid balance, DVT prophylaxis SCD to BLE while in bed, pt ambulatory History Interval history: Pt c.o h/a and fever Hospitalist Physical - Constitutional Vitals: Temp Pulse Resp BP Pulse Ox 97.8 F 62 20 142/72 96 01/29/19 07:17 01/29/19 10:21 01/29/19 07:56 01/29/19 10:21 01/29/19 07:56 General appearance: Present: no acute distress - EENT Eyes: Present: PERRL, EOM intact ENT: hearing intact, clear oral mucosa, dentition normal - Neck Neck: Present: supple, normal ROM - Respiratory Respiratory effort: normal Respiratory: bilateral: CTA - Cardiovascular Rhythm: regular Heart Sounds: Present: S1 & S2. Absent: gallop, rub - Extremities Extremities: no ischemia, No edema, Full ROM - Abdominal General gastrointestinal: soft, non-tender, non-distended, normal bowel sounds - Integumentary Integumentary: Present: clear, warm, dry - Neurologic Neurologic: CNII-XII intact, moves all extremities Results - Labs CBC & Chem 7: 01/29/19 05:36 01/29/19 05:36 Labs: Laboratory Last Values WBC 13.7 K/mm3 (4.5-11.0) H 01/29/19 05:36 RBC 4.15 M/mm3 (3.65-5.03) 01/29/19 05:36 Hgb 11.9 gm/dl (11.8-15.2) 01/29/19 05:36 Hct 36.4 % (35.5-45.6) 01/29/19 05:36 MCV 88 fl (84-94) 01/29/19 05:36 MCH 29 pg (28-32) 01/29/19 05:36 MCHC 33 % (32-34) 01/29/19 05:36 RDW 15.3 % (13.2-15.2) H 01/29/19 05:36 Plt Count 340 K/mm3 (140-440) 01/29/19 05:36 Lymph % (Auto) 16.0 % (13.4-35.0) 01/27/19 06:18 [place] % (Auto) 9.1 % (0.0-7.3) H 01/27/19 06:18 Eos % (Auto) Dehydrator 01/29/19 05:36 Baso % (Auto) 0.0 % (0.0-1.8) 01/27/19 06:18 Lymph # 2.3 K/mm3 (1.2-5.4) 01/27/19 06:18 [place] # 1.3 K/mm3 (0.0-0.8) H 01/27/19 06:18 Eos # 0.0 K/mm3 (0.0-0.4) 01/27/19 06:18 Baso # 0.0 K/mm3 (0.0-0.1) 01/27/19 06:18 Add Manual Diff Complete 01/29/19 05:36 Total Counted 100 01/29/19 05:36 Seg Neutrophils % 74.9 % (40.0-70.0) H 01/27/19 06:18 Seg Neuts % (Manual) 64.0 % (40.0-70.0) 01/29/19 05:36 0 % 01/29/19 05:36 22.0 % (13.4-35.0) 01/29/19 05:36 Reactive Lymphs % (Man) 0 % 01/29/19 05:36 3.0 % (0.0-7.3) 01/29/19 05:36 10.0 % (0.0-4.3) H 01/29/19 05:36 1.0 % (0.0-1.8) 01/29/19 05:36 0 % 01/29/19 05:36 0 % 01/29/19 05:36 0 % 01/29/19 05:36 0 % 01/29/19 05:36 Nucleated RBC % Not Reportable 01/29/19 05:36 Seg Neutrophils # 10.8 K/mm3 (1.8-7.7) H 01/27/19 06:18 Seg Neutrophils # Man 8.8 K/mm3 (1.8-7.7) H 01/29/19 05:36 Band Neutrophils # 0.0 K/mm3 01/29/19 05:36 3.0 K/mm3 (1.2-5.4) 01/29/19 05:36 Abs React Lymphs (Man) 0.0 K/mm3 01/29/19 05:36 0.4 K/mm3 (0.0-0.8) 01/29/19 05:36 1.4 K/mm3 (0.0-0.4) H 01/29/19 05:36 0.1 K/mm3 (0.0-0.1) 01/29/19 05:36 0.0 K/mm3 01/29/19 05:36 0.0 K/mm3 01/29/19 05:36 0.0 K/mm3 01/29/19 05:36 Blast Cells # 0.0 K/mm3 01/29/19 05:36 WBC Morphology Not Reportable 01/29/19 05:36 Hypersegmented Neuts Not Reportable 01/29/19 05:36 Hyposegmented Neuts Not Reportable 01/29/19 05:36 Hypogranular Neuts Not Reportable 01/29/19 05:36 Not Reportable 01/29/19 05:36 Not Reportable 01/29/19 05:36 Not Reportable 01/29/19 05:36 Not Reportable 01/29/19 05:36 Not Reportable 01/29/19 05:36 Not Reportable 01/29/19 05:36 Consistent w auto 01/29/19 05:36 Not Reportable 01/29/19 05:36 Plt Clumps, EDTA Not Reportable 01/29/19 05:36 Not Reportable 01/29/19 05:36 Not Reportable 01/29/19 05:36 Not Reportable 01/29/19 05:36 Plt Morphology Comment Not Reportable 01/29/19 05:36 RBC Morphology Normal 01/29/19 05:36 Dimorphic RBCs Not Reportable 01/29/19 05:36 Not Reportable 01/29/19 05:36 Not Reportable 01/29/19 05:36 Not Reportable 01/29/19 05:36 Not Reportable 01/29/19 05:36 Not Reportable 01/29/19 05:36 Not Reportable 01/29/19 05:36 Not Reportable 01/29/19 05:36 Not Reportable 01/29/19 05:36 Not Reportable 01/29/19 05:36 Not Reportable 01/29/19 05:36 Not Reportable 01/29/19 05:36 Not Reportable 01/29/19 05:36 Not Reportable 01/29/19 05:36 Not Reportable 01/29/19 05:36 Not Reportable 01/29/19 05:36 Not Reportable 01/29/19 05:36 Not Reportable 01/29/19 05:36 Not Reportable 01/29/19 05:36 Not Reportable 01/29/19 05:36 Acanthocytes (Spur) Not Reportable 01/29/19 05:36 Rouleaux Not Reportable 01/29/19 05:36 Not Reportable 01/29/19 05:36 Not Reportable 01/29/19 05:36 Not Reportable 01/29/19 05:36 Not Reportable 01/29/19 05:36 Hem Pathologist Commnt No 01/29/19 05:36 400.00 ng/mlDDU (0-234) H 01/26/19 12:51 Sodium 138 mmol/L (137-145) 01/29/19 05:36 Potassium 4.8 mmol/L (3.6-5.0) 01/29/19 05:36 Chloride 101.2 mmol/L (98-107) 01/29/19 05:36 Carbon Dioxide 27 mmol/L (22-30) 01/29/19 05:36 15 mmol/L 01/29/19 05:36 BUN 22 mg/dL (9-20) H 01/29/19 05:36 1.0 mg/dL (0.8-1.5) 01/29/19 05:36 Estimated GFR > 60 ml/min 01/29/19 05:36 22 % 01/29/19 05:36 Glucose 110 mg/dL (75-100) H 01/29/19 05:36 Calcium 8.4 mg/dL (8.4-10.2) 01/29/19 05:36 0.30 mg/dL (0.1-1.2) 01/27/19 06:18 AST 23 units/L (5-40) 01/27/19 06:18 ALT 18 units/L (7-56) 01/27/19 06:18 66 units/L (35-129) 01/27/19 06:18 0.059 ng/mL (0.00-0.029) H D 01/26/19 18:02 NT-Pro-B Natriuret Pep 983.7 pg/mL (0-900) H 01/26/19 09:29 6.9 g/dL (6.3-8.2) 01/27/19 06:18 3.3 g/dL (3.9-5) L 01/27/19 06:18 0.9 % 01/27/19 06:18 Triglycerides 111 mg/dL (2-149) 01/26/19 09:29 Cholesterol 152 mg/dL (50-199) 01/26/19 09:29 91 mg/dL (50-130) 01/26/19 09:29 53 mg/dL (40-59) 01/26/19 09:29 2.86 % 01/26/19 09:29 Yellow (Yellow) 01/27/19 Unknown Clear (Clear) 01/27/19 Unknown 6.0 (5.0-7.0) 01/27/19 Unknown Ur Specific [place] 1.033 (1.003-1.030) H 01/27/19 Unknown 100 mg/dl mg/dL (Negative) 01/27/19 Unknown Neg mg/dL (Negative) 01/27/19 Unknown Neg mg/dL (Negative) 01/27/19 Unknown Neg (Negative) 01/27/19 Unknown Neg (Negative) 01/27/19 Unknown Neg (Negative) 01/27/19 Unknown < 2.0 mg/dL (<2.0) 01/27/19 Unknown Ur Leukocyte Esterase Neg (Negative) 01/27/19 Unknown 1.0 /HPF (0.0-6.0) 01/27/19 Unknown 3.0 /HPF (0.0-6.0) 01/27/19 Unknown U Epithel Cells (Auto) < 1.0 /HPF (0-13.0) 01/27/19 Unknown Few /HPF 01/27/19 Unknown Active Medications - Current Medications Current Medications: Generic Name Dose Route Start Last Admin Trade Name Freq PRN Reason Stop Dose Admin Acetaminophen 650 mg 01/26/19 12:32 Tylenol PO Q4H PRN Pain MILD(1-3)/Fever >100.5/BRYAN Albuterol 2.5 mg 01/27/19 12:00 01/27/19 15:11 Proventil IH 2.5 mg Q4HRT PRN Administration Shortness Of Breath Arformoterol Tartrate 15 mcg 01/27/19 12:00 01/29/19 07:56 Brovana Nebu IH 15 mcg Q12HRT TERESA Administration Aspirin 81 mg 01/30/19 10:00 Baby Aspirin PO QDAY TERESA Atorvastatin Calcium 10 mg 01/29/19 22:00 Lipitor PO QHS TERESA Benzonatate 100 mg 01/27/19 22:00 01/29/19 05:14 Tessalon Perles PO 100 mg Q6HR TERESA Administration Budesonide 0.5 mg 01/27/19 12:00 01/29/19 07:56 Pulmicort IH 0.5 mg Q12HRT TERESA Administration Clonidine HCl 0.2 mg 01/26/19 22:00 01/29/19 10:20 Catapres PO 0.2 mg BID TERESA Administration Hydralazine HCl 100 mg 01/26/19 22:00 01/29/19 10:20 Apresoline PO 100 mg BID TERESA Administration Levofloxacin/Dextrose 750 mg in 150 mls @ 100 mls/hr 01/28/19 10:00 01/29/19 10:22 Levaquin 750mg/150ml IV 100 mls/hr Q24HR TERESA Administration Protocol Metoprolol Tartrate 50 mg 01/28/19 22:00 01/29/19 10:21 Lopressor PO 50 mg BID TERESA Administration Morphine Sulfate 1 mg 01/26/19 12:32 Morphine IV Q4H PRN Pain, Moderate (4-6) Nitroglycerin 0.4 mg 01/26/19 12:32 Nitrostat SL Q5M PRN Chest Pain Ondansetron HCl 4 mg 01/26/19 12:32 Zofran IV Q8H PRN Nausea And Vomiting Oxycodone/Acetaminophen 1 tab 01/26/19 12:32 Percocet 5/325 PO Q6H PRN Pain, Moderate (4-6) Sodium Chloride 10 ml 01/26/19 22:00 01/29/19 10:55 Sodium Chloride Flush Syringe 10 Ml IV 10 ml BID TERESA Administration Sodium Chloride 10 ml 01/26/19 12:32 01/29/19 10:22 Sodium Chloride Flush Syringe 10 Ml IV 10 ml PRN PRN Administration LINE FLUSH
[2019-01-30] MEDS: TESSALON PERLES PO SCH ×3 (00:13→13:20)
[2019-01-30 04:31] LABS: Hemoglobin 11.8 gm/dl (11.8-15.2); Mean Corpuscular HGB Conc 33 % (32-34); Mean Corpuscular Volume 89 fl (84-94); Platelet Count 357 K/mm3 (140-440); Red Blood Count 4.04 M/mm3 (3.65-5.03); Red Cell Distribution Width 15.1 % (13.2-15.2)
[2019-01-30 04:46] LABS: BUN/Creatinine Ratio 21; Blood Urea Nitrogen 19 mg/dL (9-20); Calcium 8.5 mg/dL (8.4-10.2); Hemolysis Index 11
[2019-01-30] MEDS: BROVANA NEBU IH SCH (07:21)
[2019-01-30] MEDS: PULMICORT IH SCH (07:21)
[2019-01-30] MEDS: CATAPRES PO SCH (09:25)
[2019-01-30] MEDS: APRESOLINE PO SCH (09:25)
[2019-01-30] MEDS: LOPRESSOR PO SCH (09:27)
[2019-01-30] MEDS: LEVAQUIN 750MG/150ML 750 MG/150 ML BAG IV SCH (09:27)
[2019-01-30] MEDS: SODIUM CHLORIDE FLUSH SYRINGE 10 ML IV SCH (09:28)
[2019-01-30] MEDS ORDERED: BABY ASPIRIN PO SCH (10:00)
--- NOTE | 2019-01-30 10:05 | Discharge Summary ---
Providers - Providers Date of Admission: 01/26/19 12:32 Date of discharge: 01/30/19 Attending physician: GROVER ETIENNE MD 01/26/19 Consult to Cardiac Rehabilitation [CONS] Routine Reason For Exam: Phase I 01/26/19 12:37 Consult to Physician [CONS] Routine Comment: Consulting Provider: FLEX LEDEZMA Physician Instructions: Reason For Exam: chf/nstemi Primary care physician: BRAIN BAILEY Hospitalization Reason for admission: Sepsis, COPD exacerbation Condition: Fair Hospital course: 83 YO Male with COPD, HTN, HLD, GERD, Pulmonary HTN, OA, Migraine headache, CHF, Valvular Disease NOS, Bladder Cancer presents to ED for evaluation. Pt provides limited history. Pt history obtained from family who is at bedside during exam and interview. As per family, the patient has experienced progressive weakness over the past 4-5 days. Pt has experienced runny nose, and dry cough, with subsequent development of productive cough with yellowish sputum, as well as subjective fever. Pt transported to [facility] via private vehicle. Pt seen and evaluated in ED and found to have symptoms consistent with NSTEMI as well as SIRS, and CHF Decompensation. Cardiology notified by ED. Pt admitted to telemetry. Cardiology consulted. Prior admission 11/24/18 reviewed. Cardiology was consulted and recommend conservative cardiac management. patient was treated with IV antibiotics for sepsis. patient's COPD was treated accordingly. patient's symptoms were resolved. PAtient said he has home O2 and enough breathing treatment. I called [facility] management specialist and discussed the management plan. patient discharged with PO antibiotics. Disposition: DC- TO HOME OR SELFCARE - Discharge Diagnoses (1) Acute respiratory failure with hypoxia Status: Resolved (2) COPD with exacerbation Status: Acute (3) Sepsis Status: Acute Qualifiers: Sepsis type: sepsis due to unspecified organism Qualified Code(s): A41.9 - Sepsis, unspecified organism Core Measure Documentation - Palliative Care Palliative Care/ Comfort Measures: Not Applicable - Core Measures Any of the following diagnoses?: none Exam - Physical Exam Narrative exam: Not in cardiopulmonary distress. The patient appeared well nourished and normally developed. Vital signs as documented. Head exam is unremarkable. No scleral icterus . Neck is without jugular venous distension, thyromegaly, or carotid bruits. Lungs scattered expiratory wheezes. Cardiac exam reveals regular rate and Rhythm. First and second heart sounds normal. No murmurs, rubs or gallops. Abdominal exam reveals normal bowel sounds, no masses, no organomegaly and no aortic enlargement. Extremities are nonedematous and both femoral and pedal pulses are normal. 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 No focal weakness. - Constitutional Vitals: Temp Pulse Resp BP Pulse Ox 97.6 F 59 L 16 145/62 94 01/30/19 08:25 01/30/19 09:27 01/30/19 08:25 01/30/19 09:01/30/19 08:25 Plan Activity: no restrictions Weight Bearing Status: Full Weight Bearing Diet: low cholesterol, low salt Follow up with: BRAIN BAILEY PA [Primary Care Provider] - 7 Days Prescriptions: AtorvaSTATin [Lipitor] 10 mg PO QHS #30 tablet levoFLOXacin [Levaquin] 750 mg PO QDAY #5 tablet Metoprolol [Lopressor TAB] 25 mg PO BID #60 tablet
[2019-01-30 12:22] VITALS: BP 130/59
--- NOTE | 2019-01-30 12:46 | Progress Note ---
Assessment and Plan Currently stable cardiac status. Tele reviewed - in SR/SB with PVCs, 2 sinus pauses noted overnight (1.9 sec and 2 sec) while pt sleeping, pt asymptomatic. Will reduce lopressor to 25mg BID. Pt may discharge home from cardiology standpoint. Recommend follow up in our office with Dr. Lal within 1-2 weeks of hospital discharge ([phone]). The patient has been seen in conjunction with Dr. Lizandro Nam who agrees with the assessment and plan of care. - Patient Problems (1) Acute respiratory failure with hypoxia Current Visit: Yes Status: Resolved (2) Pneumonia Current Visit: Yes Status: Acute (3) CAD (coronary artery disease) Current Visit: Yes Status: Chronic Qualifiers: Coronary Disease-Associated Artery/Lesion type: [place] artery [place] vs. transplanted heart: [place] heart (4) History of coronary artery bypass graft Current Visit: Yes Status: Chronic (5) Carotid stenosis Current Visit: Yes Status: Chronic (6) S/P mitral valve repair Current Visit: Yes Status: Acute Plan to address problem: 2005 at [place] (7) Moderate tricuspid regurgitation Current Visit: Yes Status: Chronic (8) Aortic stenosis Current Visit: Yes Status: Chronic Plan to address problem: mild to mod [place] 1.38 AV mean gradient 7 (9) Mitral stenosis Current Visit: Yes Status: Chronic Plan to address problem: mild to moderate (10) Elevated troponin Current Visit: Yes Status: Acute (11) Hypertension Current Visit: Yes Status: Chronic Qualifiers: Hypertension type: essential hypertension Qualified Code(s): I10 - Essential (primary) hypertension (12) Right bundle branch block Current Visit: Yes Status: Chronic Subjective Date of service: 01/30/19 Principal diagnosis: PNA Interval history: pt resting in bed, states he is feeling better. family at bedside. tele reviewed - in SR/SB with PVCs, 2 sinus pauses noted overnight (1.9 sec and 2 sec) while pt sleeping, pt asymptomatic. Objective Last Vital Signs Temp 98.0 F 01/30/19 11:54 Pulse 63 01/30/19 11:54 Resp 14 01/30/19 11:54 BP 130/59 01/30/19 11:54 Pulse Ox 95 01/30/19 11:54 - Physical Examination General: No Apparent Distress HEENT: Positive: PERRL Neck: Positive: trachea midline Cardiac: Positive: Reg Rate and Rhythm, S1/S2 Lungs: Positive: Decreased Breath Sounds Neuro: Positive: Grossly Intact Abdomen: Positive: Unremarkable /Rectal: Other (deferred) Skin: Positive: Clear Musculoskeletal: No Pain Extremities: Present: normal - Labs and Meds CBC 01/30/19 Range/Units 04:02 WBC 13.5 H (4.5-11.0) K/mm3 RBC 4.04 (3.65-5.03) M/mm3 Hgb 11.8 (11.8-15.2) gm/dl Hct 36.0 (35.5-45.6) % Plt Count 357 (140-440) K/mm3 Comprehensive Metabolic Panel 01/30/19 Range/Units 04:02 Sodium 136 L (137-145) mmol/L Potassium 4.5 (3.6-5.0) mmol/L Chloride 100.4 (98-107) mmol/L Carbon Dioxide 26 (22-30) mmol/L BUN 19 (9-20) mg/dL Creatinine 0.9 (0.8-1.5) mg/dL Glucose 105 H (75-100) mg/dL Calcium 8.5 (8.4-10.2) mg/dL - Imaging and Cardiology Echo: report reviewed (11/2018: EF 40-45%, mild LVH, trivial pericardial effusion, mild phtn, mod TR, calcified AV&MV with mild-mod stenosis) AV and intraventricular conduction: right bundle branch block
[2019-01-30] MEDS ORDERED: LOPRESSOR PO SCH (12:47)
[2019-01-30 13:32] LABS: Total Cells Counted 100
[2019-01-30 13:33] LABS: Anisocytosis Few; Platelet Estimate Consistent w Auto
== END 2019-01-30 13:54 | disposition home or self-care (01) | DRG 871 ==
LOC: ED 09:02 → 4A 12:32
PROVIDERS: ADMIT Internal Medicine; ATTEND Internal Medicine
DX: A41.9 Sepsis, unspecified organism (principal); I21.4 Non-ST elevation (NSTEMI) myocardial infarction; J96.01 Acute respiratory failure with hypoxia; J18.1 Lobar pneumonia, unspecified organism; I50.43 Acute on chronic combined systolic (congestive) and diastolic (congestive) heart failure; J44.1 Chronic obstructive pulmonary disease with (acute) exacerbation; J44.0 Chronic obstructive pulmonary disease with (acute) lower respiratory infection; I11.0 Hypertensive heart disease with heart failure; K21.9 Gastro-esophageal reflux disease without esophagitis; E78.2 Mixed hyperlipidemia; I65.22 Occlusion and stenosis of left carotid artery; I08.0 Rheumatic disorders of both mitral and aortic valves; H61.22 Impacted cerumen, left ear; E78.00 Pure hypercholesterolemia, unspecified; C67.9 Malignant neoplasm of bladder, unspecified; I45.10 Unspecified right bundle-branch block; G43.909 Migraine, unspecified, not intractable, without status migrainosus; M19.90 Unspecified osteoarthritis, unspecified site; I27.20 Pulmonary hypertension, unspecified; Z82.49 Family history of ischemic heart disease and other diseases of the circulatory system; Z79.899 Other long term (current) drug therapy; Z79.51 Long term (current) use of inhaled steroids
CPT/HCPCS: 36415; 71046; 71275; 80048; 80053; 80061; 81001; 83880; 84484; 85007; 85025; 85379; 93005; 93010; 94640; 94760; G0378; A9270-GY; J0696; J1956; J7512; Q9967

== ENCOUNTER 2019-04-05 03:55 | Inpatient (IN) | payer MEDICARE ==
[2019-04-05] MEDS ORDERED: PANTOPRAZOLE 80 MG in SODIUM CHLORIDE 0.9% 100 ML IV ONE (04:22)
[2019-04-05] MEDS ORDERED: PANTOPRAZOLE 40 MG INJ IV STA (04:22)
--- NOTE | 2019-04-05 04:44 | Emergency Department Report ---
ED General Adult HPI - General Chief complaint: GI Bleed Stated complaint: DIARRHEA Time Seen by Provider: 04/05/19 04:42 Source: patient, family Mode of arrival: Ambulatory Limitations: Language Barrier - History of Present Illness Initial comments: 84-year-old male with a history of cardiomyopathy presents stating that he had multiple episodes of blood in his stool. Patient denies any melena but complains of bright red blood here patient states he had been having diarrhea and had been using loperamide to control this. Patient states that his stool then became bright red and thus he presented here. Patient states he's not on any anticoagulation. Patient denies any ibuprofen usage. Patient denies any chest pain or shortness of breath either. Denies any fever. Patient states he has no abdominal pain to his current time. Patient denies any vomiting or hematemesis. 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 - Related Data Home Medications Medication Instructions Recorded Confirmed Last Taken cloNIDine [Catapres] 0.2 mg PO BID 07/04/18 01/26/19 01/25/19 Previous Rx's Medication Instructions Recorded Last Taken Type hydrALAZINE [Apresoline TAB] 100 mg PO BID tab 07/09/18 01/25/19 Rx AtorvaSTATin 10 mg PO QHS #30 tablet 01/30/19 Unknown Rx Metoprolol [Lopressor TAB] 25 mg PO BID #60 tablet 01/30/19 Unknown Rx levoFLOXacin [Levaquin] 750 mg PO QDAY #5 tablet 01/30/19 Unknown Rx Allergies Allergy/AdvReac Type Severity Reaction Status Date / Time No Known Allergies Allergy Verified 11/11/18 08:08 ED Review of Systems ROS: Stated complaint: DIARRHEA Other details as noted in HPI Constitutional: denies: chills, fever Eyes: denies: eye pain, eye discharge, vision change ENT: denies: ear pain, throat pain Respiratory: denies: cough, shortness of breath, wheezing Cardiovascular: denies: chest pain, palpitations Endocrine: no symptoms reported Gastrointestinal: hematochezia Genitourinary: denies: urgency, dysuria Musculoskeletal: denies: back pain, joint swelling, arthralgia Skin: denies: rash, lesions Neurological: denies: headache, weakness, paresthesias Psychiatric: denies: anxiety, depression Hematological/Lymphatic: denies: easy bleeding, easy bruising ED Past Medical Hx - Past Medical History Previous Medical History?: Yes Hx Hypertension: Yes (Gets tired easily) Hx Heart Attack/AMI: No Hx GERD: Yes Hx Arthritis: Yes Hx Headaches / Migraines: Yes Hx COPD: Yes Hx HIV: No Additional medical history: bladder tumor. elevated cholestrol - Surgical History Past Surgical History?: Yes Hx Open Heart Surgery: Yes ("RING AROUND VALVE", or tell me that the patient had a valvuloplasty ) Hx Internal Defibrillator: No (CARDIOMYOPATHY) Additional Surgical History: eye surgery. mitral valve repair - Social History Smoking Status: Never Smoker Substance Use Type: None - Medications Home Medications: Home Medications Medication Instructions Recorded Confirmed Last Taken Type cloNIDine [Catapres] 0.2 mg PO BID 07/04/18 01/26/19 01/25/19 History hydrALAZINE [Apresoline TAB] 100 mg PO BID tab 07/09/18 01/26/19 01/25/19 Rx AtorvaSTATin 10 mg PO QHS #30 tablet 01/30/19 Unknown Rx Metoprolol [Lopressor TAB] 25 mg PO BID #60 tablet 01/30/19 Unknown Rx levoFLOXacin [Levaquin] 750 mg PO QDAY #5 tablet 01/30/19 Unknown Rx ED Physical Exam - General Limitations: Language Barrier General appearance: alert, other (Uncomfortable; Pale) - Head Head exam: Present: atraumatic, normocephalic - Eye Eye exam: Present: normal appearance, other (conjunctival pallor noted) - ENT ENT exam: Present: mucous membranes dry - Neck Neck exam: Present: normal inspection - Respiratory Respiratory exam: Present: normal lung sounds bilaterally. Absent: respiratory distress - Cardiovascular Cardiovascular Exam: Present: regular rate, normal rhythm. Absent: systolic murmur, diastolic murmur, rubs, gallop - GI/Abdominal GI/Abdominal exam: Present: soft, normal bowel sounds - Rectal Rectal exam: Present: heme (+) stool, bloody stool. Absent: black stool - Extremities Exam Extremities exam: Present: normal inspection - Back Exam Back exam: Present: normal inspection - Neurological Exam Neurological exam: Present: alert, oriented X3 - Psychiatric Psychiatric exam: Present: normal affect, normal mood - Skin Skin exam: Present: warm, dry, intact, normal color. Absent: rash ED Course Vital Signs 04/05/19 04/05/19 04/05/19 04:07 04:25 04:30 Temperature 97.7 F Pulse Rate 96 H 79 Respiratory 20 16 17 Rate Blood Pressure 79/39 106/63 O2 Sat by Pulse 97 98 Oximetry 04/05/19 04/05/19 04/05/19 04:45 05:00 05:15 Temperature Pulse Rate 80 78 76 Respiratory 11 L 12 16 Rate Blood Pressure 93/55 105/60 113/64 O2 Sat by Pulse 97 96 98 Oximetry ED Medical Decision Making - Lab Data Result diagrams: 04/05/19 04:24 04/05/19 04:24 - EKG Data -: EKG Interpreted by Me EKG shows normal: sinus rhythm - EKG Data Interpretation: other (right bundle branch block) - Medical Decision Making Patient's blood pressure improved with administration 250 mL of IV fluids. Patient was given Protonix IV and started on Protonix drip. Gastric neurology was consulted and will see patient in consultation. Patient be admitted to the hospitalist service for continued management and treatment. Patient agreeable with this disposition. - Differential Diagnosis GI bleed; anemia; electrolyte abnormality Critical Care Time: Yes Critical care time in (mins) excluding proc time.: 38 Critical care attestation.: If time is entered above; I have spent that time in minutes in the direct care of this critically ill patient, excluding procedure time. Critical care time includes time spent with frequent reassessments, direct bedside care and physician consultation. ED Disposition Clinical Impression: GI bleed, Anemia Disposition: OP ADMIT IP TO THIS HOSP Is pt being admited?: Yes Does the pt Need Aspirin: No Condition: Fair Forms: Accompanied Note Time of Disposition: 06:30
[2019-04-05 04:48] LABS: Basophils # (Auto) 0.2 K/mm3 (0.0-0.1); Basophils % (Auto) 1.3 % (0.0-1.8); Eosinophils # (Auto) 0.9 K/mm3 (0.0-0.4); Eosinophils % (Auto) 6.4 % (0.0-4.3); Hematocrit 30.7 % (35.5-45.6); Hemoglobin 10.1 gm/dl (11.8-15.2); Lymphocytes % (Auto) 28.8 % (13.4-35.0); Mean Corpuscular HGB Conc 33 % (32-34); Mean Corpuscular Volume 89 fl (84-94); Platelet Count 230 K/mm3 (140-440); Red Blood Count 3.45 M/mm3 (3.65-5.03); Red Cell Distribution Width 15.7 % (13.2-15.2)
[2019-04-05 04:58] LABS: INR 1.08 (0.87-1.13)
[2019-04-05 04:59] LABS: Partial Thromboplastin Time 27.4 Sec. (24.2-36.6)
[2019-04-05 05:03] LABS: Calcium 8.5 mg/dL (8.4-10.2)
[2019-04-05 05:09] LABS: Alanine Aminotransferase 13 units/L (7-56); Albumin 3.7 g/dL (3.9-5)
[2019-04-05 05:11] LABS: Bilirubin,Direct < 0.2 mg/dL (0-0.2)
--- NOTE | 2019-04-05 05:29 | XRay Report ---
CHEST 1 VIEW INDICATION / CLINICAL INFORMATION: chest pain. COMPARISON: 01/26/2019 FINDINGS: SUPPORT DEVICES: None. HEART / MEDIASTINUM: Cardiac silhouette remains mildly enlarged. LUNGS / PLEURA: No acute pulmonary or pleural disease. There is mild chronic interstitial lung diseas e. No pneumothorax. ADDITIONAL FINDINGS: No significant additional findings. IMPRESSION: 1. Mild cardiomegaly. No acute pulmonary or pleural disease. Signer Name: Zully Villatoro MD Signed: 04/05/2019 5:24 AM Workstation Name: [id number]
[2019-04-05] MEDS ORDERED: SODIUM CHLORIDE 0.9% 250ML 250 ML IV ONE (05:38)
[2019-04-05 07:20] LABS: Chol/HDL Ratio 2.5 %
--- NOTE | 2019-04-05 10:14 | Gastroenterology Consultation ---
History of Present Illness - Reason for Consult Consult date: 04/05/19 GI bleeding Requesting physician: GARFIELD OLMSTEAD - History of Present Illness Mr Wilson is an 84 y/o male presenting with a 12 hour hx of diarrhea with dark red bloody Bms. His son is at bedside and translates. He denies abdominal pain. No N/V. He has been seen in the past with similar bleeding in 10/2018. At that time the patient was taking NSAIDS as well as Plavix and underwent EGD revealing small duodenal ulcer, erosive esophagitis and small HH. Per note, last Colonoscopy in 2016 with diverticulosis and small polyp removed. Son translates, but neither the patient or son are good historians. H/H on admission 10.06/21. Baseline H/H varies as the patient has been anemic in the past but 01/2017 hgb baseline ~11-12. BUN elevated at 39. INR 1.08. Per the son, the patient is still taking Plavix but not ASA. WBC 13.9. The patient has a significant cardiac history with CABG, aortic stenosis, Mitral valve replacement, carotid stenosis and follows with [facility]. Vitals are st able and patient is awake and alert walking around in room. Currently on PPI gtt. Past History Past Medical History: anemia, arthritis, CAD, COPD, heart failure, hypertension, hyperlipidemia, other (carotid stenosis, Pulm HTN, RBBB, CAD) Past Surgical History: valve replacement, Other (EGD/ Colonoscopy) Social history: lives with family Family history: no significant family history Medications and Allergies Allergies Allergy/AdvReac Type Severity Reaction Status Date / Time No Known Allergies Allergy Verified 11/11/18 08:08 Home Medications Medication Instructions Recorded Confirmed Last Taken Type cloNIDine [Catapres] 0.2 mg PO BID 07/04/18 01/26/19 01/25/19 History hydrALAZINE [Apresoline TAB] 100 mg PO BID tab 07/09/18 01/26/19 01/25/19 Rx AtorvaSTATin 10 mg PO QHS #30 tablet 01/30/19 Unknown Rx Metoprolol [Lopressor TAB] 25 mg PO BID #60 tablet 01/30/19 Unknown Rx levoFLOXacin [Levaquin] 750 mg PO QDAY #5 tablet 01/30/19 Unknown Rx Active Meds: Active Medications Pantoprazole Sodium 80 mg/ (Sodium Chloride) 100 mls @ 10 mls/hr IV ONCE ONE Stop: 04/05/19 14:21 Last Admin: 04/05/19 05:09 Dose: 8 mg/hr, 10 mls/hr Documented by: Review of Systems - Review of Systems All systems: negative Constitutional: weakness Gastrointestinal: BRBPR Exam - Constitutional Vital Signs: Temp Pulse Resp BP Pulse Ox 97.7 F 81 19 112/54 93 04/05/19 04:07 04/05/19 08:36 04/05/19 08:00 04/05/19 08:00 04/05/19 08:36 General appearance: no acute distress, well-nourished - EENT Eyes: EOM intact ENT: hearing intact - Neck Neck: supple - Respiratory Respiratory: bilateral: CTA - Cardiovascular Rhythm: regular Heart Sounds: Present: S1 & S2 Extremities: pulses intact, Full ROM - Gastrointestinal General gastrointestinal: Present: soft, non-tender, non-distended, normal bowel sounds - Integumentary Integumentary: Present: warm, dry - Neurologic Neurological: alert and oriented x3 - Psychiatric Psychiatric: appropriate mood/affect, cooperative - Labs CBC & Chem 7: 04/05/19 04:24 04/05/19 04:24 Lab Results: Laboratory Results - last 24 hr 04/05/19 04/05/19 04/05/19 04:00 04:24 04:24 WBC 13.9 H RBC 3.45 L Hgb 10.1 L Hct 30.7 L MCV 89 MCH 29 MCHC 33 RDW 15.7 H Plt Count 230 Lymph % (Auto) 28.8 [place] % (Auto) 7.0 Eos % (Auto) 6.4 H Baso % (Auto) 1.3 Lymph # 4.0 [place] # 1.0 H Eos # 0.9 H Baso # 0.2 H Seg Neutrophils % 56.5 Seg Neutrophils # 7.8 H PT INR APTT Sodium 138 Potassium 4.9 Chloride 105.0 Carbon Dioxide 20 L Anion Gap 18 BUN 39 H Creatinine 1.4 Estimated GFR 48 BUN/Creatinine Ratio 28 Glucose 129 H Calcium 8.5 Magnesium Total Bilirubin Direct Bilirubin Indirect Bilirubin AST ALT Alkaline Phosphatase Troponin T Total Protein Albumin Albumin/Globulin Ratio Triglycerides Cholesterol LDL Cholesterol Direct HDL Cholesterol Cholesterol/HDL Ratio Blood Type O POSITIVE Antibody Screen Negative 04/05/19 04/05/19 04/05/19 04:28 04:28 04:28 WBC RBC Hgb Hct MCV MCH MCHC RDW Plt Count Lymph % (Auto) [place] % (Auto) Eos % (Auto) Baso % (Auto) Lymph # [place] # Eos # Baso # Seg Neutrophils % Seg Neutrophils # PT 13.9 INR 1.08 APTT 27.4 Sodium Potassium Chloride Carbon Dioxide Anion Gap BUN Creatinine Estimated GFR BUN/Creatinine Ratio Glucose Calcium Magnesium 2.00 Total Bilirubin 0.30 Direct Bilirubin < 0.2 Indirect Bilirubin 0.1 AST 16 ALT 13 Alkaline Phosphatase 52 Troponin T 0.041 H Total Protein 6.1 L Albumin 3.7 L Albumin/Globulin Ratio 1.5 Triglycerides 90 Cholesterol 148 LDL Cholesterol Direct 88 HDL Cholesterol 59 Cholesterol/HDL Ratio 2.50 Blood Type Antibody Screen Assessment and Plan 1. BRBPR - Diarrhea with reported dark red BM overnight. None this AM - PPI gtt - BUN elevated - Vitals are stable - S/p EGD 10/2018 with small duodenal ulcer and erosive esophagitis ( reported last colonoscopy in 2016, tics, polyp removed ) - Hold Plavix and NSAIDS - INR 1.08 - Ok for clear liquids - Continue to trend H/H and transfuse as needed - Tentative plan for EGD/ Colonoscopy tomorrow. Will need cardiology clearance as pt is currently stable. ( I have contacted cards) - NPO after MN, prep this PM. 2. CHF 3. CAD 4. COPD - Further recommendations to follow.
[2019-04-05] MEDS ORDERED: ONDANSETRON 4 MG/2 ML INJ IV PRN (11:24)
[2019-04-05] MEDS ORDERED: ALBUTEROL 2.5 MG/3 ML NEBU IH PRN (11:26)
--- NOTE | 2019-04-05 11:30 | History and Physical Report ---
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 It was painless, he had similar episodes in the summer of this year. Patient is not on anticoagulation, but takes NSAIDs and Plavix. Past medical history; hypertension, GERD, arthritis, headache/migraine, COPD, history of bladder tumor, hyperlipidemia, CAD status post CABG, carotid stenosis, aortic stenosis, mild to moderate, mild to moderate mitral stenosis, right bundle branch block, History of GI bleed in October of this year, EGD at that time showed duodenal ulcer, erosive gastritis and hiatal hernia. Past surgical history; eye surgery, mitral valve repair, CABG Social history, never smoker, denies alcohol or illicit drug use Family history; hypertension Past History Past Medical History: anemia, arthritis, CAD, COPD, heart failure, hypertension, hyperlipidemia, other (carotid stenosis, Pulm HTN, RBBB, CAD) Past Surgical History: valve replacement, Other (EGD/ Colonoscopy) Social history: lives with family Family history: no significant family history Medications and Allergies Allergies Allergy/AdvReac Type Severity Reaction Status Date / Time No Known Allergies Allergy Verified 11/11/18 08:08 Home Medications Medication Instructions Recorded Confirmed Last Taken Type cloNIDine [Catapres] 0.2 mg PO BID 07/04/18 01/26/19 01/25/19 History hydrALAZINE [Apresoline TAB] 100 mg PO BID tab 07/09/18 01/26/19 01/25/19 Rx AtorvaSTATin 10 mg PO QHS #30 tablet 01/30/19 Unknown Rx Metoprolol [Lopressor TAB] 25 mg PO BID #60 tablet 01/30/19 Unknown Rx levoFLOXacin [Levaquin] 750 mg PO QDAY #5 tablet 01/30/19 Unknown Rx Active Meds: Active Medications Acetaminophen (Tylenol) 650 mg PO Q4H PRN PRN Reason: Pain MILD(1-3)/Fever >100.5/BRYAN Albuterol (Proventil) 2.5 mg IH Q4HRT PRN PRN Reason: Shortness Of Breath Arformoterol Tartrate (Brovana Nebu) 15 mcg IH Q12HRT [facility] Atorvastatin Calcium (Lipitor) 20 mg PO QHS [facility] Budesonide (Pulmicort) 0.5 mg IH Q12HRT [facility] Clonidine HCl (Catapres) 0.2 mg PO Q12HR [facility] Furosemide (Lasix) 20 mg PO 0600,1800 [facility] Hydralazine HCl (Apresoline) 100 mg PO BID [facility] Pantoprazole Sodium 80 mg/ (Sodium Chloride) 100 mls @ 10 mls/hr IV ONCE ONE Stop: 04/05/19 14:21 Last Admin: 04/05/19 05:09 Dose: 8 mg/hr, 10 mls/hr Documented by: Pantoprazole Sodium 80 mg/ (Sodium Chloride) 100 mls @ 10 mls/hr IV DIRECT [facility] Metoprolol Tartrate (Metoprolol) 25 mg PO BID [facility] Montelukast Sodium (Singulair) 10 mg PO QHS [facility] Ondansetron HCl (Zofran) 4 mg IV Q8H PRN PRN Reason: Nausea And Vomiting Polyethylene Glycol/Electrolytes (Golytely) 4,000 ml PO ONCE ONE Stop: 04/05/19 17:01 Sodium Chloride (Sodium Chloride Flush Syringe 10 Ml) 10 ml IV BID [facility] Sodium Chloride (Sodium Chloride Flush Syringe 10 Ml) 10 ml IV PRN PRN PRN Reason: LINE FLUSH Tamsulosin HCl (Flomax) 0.4 mg PO QDAY [facility] Review of Systems All systems: negative Constitutional: weakness Ears, nose, mouth and throat: no ear pain Cardiovascular: no chest pain Respiratory: no cough Gastrointestinal: hematochezia, no abdominal pain Genitourinary Male: no dysuria Rectal: no pain Musculoskeletal: no neck stiffness Integumentary: no rash Neurological: no head injury Psychiatric: no anxiety Endocrine: no cold intolerance Hematologic/Lymphatic: no easy bruising Allergic/Immunologic: no urticaria Exam - Constitutional Vitals: Temp Pulse Resp BP Pulse Ox 97.7 F 81 19 112/54 93 04/05/19 04:07 04/05/19 08:36 04/05/19 08:00 04/05/19 08:00 04/05/19 08:36 General appearance: Present: no acute distress, well-nourished - EENT Eyes: Present: PERRL ENT: hearing intact, clear oral mucosa - Neck Neck: Present: supple, normal ROM - Respiratory Respiratory effort: normal Respiratory: bilateral: CTA - Cardiovascular Heart Sounds: Present: S1 & S2. Absent: rub, click - Extremities Extremities: pulses symmetrical, No edema Peripheral Pulses: within normal limits - Abdominal General gastrointestinal: Present: soft, non-tender, non-distended, normal bowel sounds Male genitourinary: Present: normal - Integumentary Integumentary: Present: clear, warm, dry - Musculoskeletal Musculoskeletal: gait normal, strength equal bilaterally - Psychiatric Psychiatric: appropriate mood/affect, intact judgment & insight - Neurologic Neurologic: CNII-XII intact, moves all extremities Results - Labs CBC & Chem 7: 04/05/19 04:24 04/05/19 04:24 Labs: Laboratory Last Values WBC 13.9 K/mm3 (4.5-11.0) H 04/05/19 04:24 RBC 3.45 M/mm3 (3.65-5.03) L 04/05/19 04:24 Hgb 10.1 gm/dl (11.8-15.2) L 04/05/19 04:24 Hct 30.7 % (35.5-45.6) L 04/05/19 04:24 MCV 89 fl (84-94) 04/05/19 04:24 MCH 29 pg (28-32) 04/05/19 04:24 MCHC 33 % (32-34) 04/05/19 04:24 RDW 15.7 % (13.2-15.2) H 04/05/19 04:24 Plt Count 230 K/mm3 (140-440) 04/05/19 04:24 Lymph % (Auto) 28.8 % (13.4-35.0) 04/05/19 04:24 [place] % (Auto) 7.0 % (0.0-7.3) 04/05/19 04:24 Eos % (Auto) 6.4 % (0.0-4.3) H 04/05/19 04:24 Baso % (Auto) 1.3 % (0.0-1.8) 04/05/19 04:24 Lymph # 4.0 K/mm3 (1.2-5.4) 04/05/19 04:24 [place] # 1.0 K/mm3 (0.0-0.8) H 04/05/19 04:24 Eos # 0.9 K/mm3 (0.0-0.4) H 04/05/19 04:24 Baso # 0.2 K/mm3 (0.0-0.1) H 04/05/19 04:24 Seg Neutrophils % 56.5 % (40.0-70.0) 04/05/19 04:24 Seg Neutrophils # 7.8 K/mm3 (1.8-7.7) H 04/05/19 04:24 PT 13.9 Sec. (12.2-14.9) 04/05/19 04:28 INR 1.08 (0.87-1.13) 04/05/19 04:28 APTT 27.4 Sec. (24.2-36.6) 04/05/19 04:28 Sodium 138 mmol/L (137-145) 04/05/19 04:24 Potassium 4.9 mmol/L (3.6-5.0) 04/05/19 04:24 Chloride 105.0 mmol/L (98-107) 04/05/19 04:24 Carbon Dioxide 20 mmol/L (22-30) L 04/05/19 04:24 Anion Gap 18 mmol/L 04/05/19 04:24 BUN 39 mg/dL (9-20) H 04/05/19 04:24 Creatinine 1.4 mg/dL (0.8-1.5) 04/05/19 04:24 Estimated GFR 48 ml/min 04/05/19 04:24 BUN/Creatinine Ratio 28 % 04/05/19 04:24 Glucose 129 mg/dL (75-100) H 04/05/19 04:24 Calcium 8.5 mg/dL (8.4-10.2) 04/05/19 04:24 Magnesium 2.00 mg/dL (1.7-2.3) 04/05/19 04:28 Total Bilirubin 0.30 mg/dL (0.1-1.2) 04/05/19 04:28 Direct Bilirubin < 0.2 mg/dL (0-0.2) 04/05/19 04:28 Indirect Bilirubin 0.1 mg/dL 04/05/19 04:28 AST 16 units/L (5-40) 04/05/19 04:28 ALT 13 units/L (7-56) 04/05/19 04:28 Alkaline Phosphatase 52 units/L (35-129) 04/05/19 04:28 Troponin T 0.041 ng/mL (0.00-0.029) H 04/05/19 04:28 Total Protein 6.1 g/dL (6.3-8.2) L 04/05/19 04:28 Albumin 3.7 g/dL (3.9-5) L 04/05/19 04:28 Albumin/Globulin Ratio 1.5 % 04/05/19 04:28 Triglycerides 90 mg/dL (2-149) 04/05/19 04:28 Cholesterol 148 mg/dL (50-199) 04/05/19 04:28 LDL Cholesterol Direct 88 mg/dL (50-130) 04/05/19 04:28 HDL Cholesterol 59 mg/dL (40-59) 04/05/19 04:28 Cholesterol/HDL Ratio 2.50 % 04/05/19 04:28 Blood Type O POSITIVE 04/05/19 04:00 Antibody Screen Negative 04/05/19 04:00 Assessment and Plan Assessment and plan: 84-year-old man who presents to the hospital with red bloody stools GI bleed GI notes appreciated Patient underwent EGD 10/2018 previously which showed duodenal ulcer, erosive gastritis and small hiatal hernia. Also underwent colonoscopy in 2017 which showed diverticulosis and a small polyp which was removed. -Continue PPI drip per GI, if patient is to continue to have bloody BMs will need CT angiogram of the abdomen on nuclear medicine bleeding scan. -Clear liquid diet for now, EGD colonoscopy tomorrow. -Plavix and NSAIDs have been put on hold (takes indomethacin at home) ht stable SIRS, without organ damage, noninfectious etiology History of heart disease, status post CABG for CAD, aortic stenosis status post mitral valve replacement.- - Follows with [facility], GI consulted, continue his meds if he is able to tolerate them. -Needs cardiology evaluation prior to EGD colonoscopy, they have been consulted. ?highly doubt compliance w PPI? Hypertension Continue BP meds COPD therapeutic substitution for home meds, on advair , proair and singulair BPH cont flomax DVT prophylaxis SCDs in light of GI bleed
--- NOTE | 2019-04-05 11:57 | Consultation ---
History of Present Illness Consult date: 04/05/19 Requesting physician: SUE BURTON Consult reason: pre op evaluation History of present illness: The pt is an 83 YO male with a past medical history of CAD s/p CABG (2004), mitral valve repair (2004), carotid stenosis s/p CEA and pending right CEA in near future, RBBB, HTN, HLP, prostate cancer. He is followed in our office by Dr. Lal. He speaks only [place]ian, so this HPI was obtained per his son at bedside. Pt presented with a 12 hour hx of diarrhea with dark red bloody stool. Pt denies any chest pain, palpitations, abdominal pain, n/v, diaphoresis, dizziness or syncope. He has been seen in the past with similar bleeding in 10/2018. At that time the patient was taking NSAIDS as well as Plavix and u nderwent EGD revealing small duodenal ulcer, erosive esophagitis and small HH. H/H on admission . Per the son, the patient is still taking Plavix but not ASA. Pt is scheduled for EGD/colonoscopy tomorrow. Cardiology has been consulted to provide pre procedure cardiac risk stratification. Echocardiogram done 11/2018 showed EF 40-45%, mild pulmonary htn, moderate TR and calcified aortic & mitral valves with [id number] stenosis. A stress test in 2009 was negative. Past History Past Medical History: anemia, arthritis, CAD, COPD, heart failure, hypertension, hyperlipidemia, other (carotid stenosis, Pulm HTN, RBBB, CAD) Past Surgical History: valve replacement, Other (EGD/ Colonoscopy) Social history: lives with family Family history: no significant family history Medications and Allergies Allergies Allergy/AdvReac Type Severity Reaction Status Date / Time No Known Allergies Allergy Verified 11/11/18 08:08 Home Medications Medication Instructions Recorded Confirmed Last Taken Type cloNIDine [Catapres] 0.2 mg PO BID 07/04/18 01/26/19 01/25/19 History hydrALAZINE [Apresoline TAB] 100 mg PO BID tab 07/09/18 01/26/19 01/25/19 Rx AtorvaSTATin 10 mg PO QHS #30 tablet 01/30/19 Unknown Rx Metoprolol [Lopressor TAB] 25 mg PO BID #60 tablet 01/30/19 Unknown Rx levoFLOXacin [Levaquin] 750 mg PO QDAY #5 tablet 01/30/19 Unknown Rx Active Meds: Active Medications Acetaminophen (Tylenol) 650 mg PO Q4H PRN PRN Reason: Pain MILD(1-3)/Fever >100.5/[facility]YAN Albuterol (Proventil) 2.5 mg IH Q4HRT PRN PRN Reason: Shortness Of Breath Arformoterol Tartrate (Brovana Nebu) 15 mcg IH Q12HRT [facility] Atorvastatin Calcium (Lipitor) 20 mg PO QHS [facility] Budesonide (Pulmicort) 0.5 mg IH Q12HRT [facility] Clonidine HCl (Catapres) 0.2 mg PO Q12HR [facility] Furosemide (Lasix) 20 mg PO 0600,1800 [facility] Hydralazine HCl (Apresoline) 100 mg PO BID [facility] Pantoprazole Sodium 80 mg/ (Sodium Chloride) 100 mls @ 10 mls/hr IV ONCE ONE Stop: 04/05/19 14:21 Last Admin: 04/05/19 05:09 Dose: 8 mg/hr, 10 mls/hr Documented by: Pantoprazole Sodium 80 mg/ (Sodium Chloride) 100 mls @ 10 mls/hr IV DIRECT [facility] Metoprolol Tartrate (Metoprolol) 25 mg PO BID [facility] Montelukast Sodium (Singulair) 10 mg PO QHS [facility] Ondansetron HCl (Zofran) 4 mg IV Q8H PRN PRN Reason: Nausea And Vomiting Polyethylene Glycol/Electrolytes (Golytely) 4,000 ml PO ONCE ONE Stop: 04/05/19 17:01 Sodium Chloride (Sodium Chloride Flush Syringe 10 Ml) 10 ml IV BID [facility] Sodium Chloride (Sodium Chloride Flush Syringe 10 Ml) 10 ml IV PRN PRN PRN Reason: LINE FLUSH Tamsulosin HCl (Flomax) 0.4 mg PO QDAY [facility] Review of Systems Constitutional: no weight loss, no weight gain, no fever, no chills, no sweats Ears, nose, mouth and throat: no ear pain, no nose pain, no sinus pressure, no sinus pain Cardiovascular: no chest pain, no orthopnea, no palpitations, no rapid/irregular heart beat, no edema, no syncope, no lightheadedness, no shortness of breath, no dyspnea on exertion Respiratory: no cough, no shortness of breath, no dyspnea on exertion, no congestion, no wheezing, no pain on inspiration Gastrointestinal: diarrhea, melena, no abdominal pain, no nausea, no vomiting, no constipation, no hematemesis, no coffee ground emesis Genitourinary Male: no dysuria, no hematuria, no flank pain, no discharge, no urinary frequency, no urinary hesitancy Musculoskeletal: no neck stiffness, no neck pain, no shooting arm pain, no arm numbness/tingling, no low back pain, no shooting leg pain Integumentary: no rash, no pruritis, no redness, no sores, no wounds Neurological: no head injury, no paralysis, no weakness, no parathesias, no numbness, no tingling, no seizures, no syncope Psychiatric: no anxiety Endocrine: no cold intolerance, no heat intolerance Hematologic/Lymphatic: no easy bruising, no easy bleeding Allergic/Immunologic: no urticaria, no wheezing Physical Examination Vital Signs Temp Pulse Resp BP Pulse Ox 97.7 F 96 H 20 79/39 97 04/05/19 04:07 04/05/19 04:07 04/05/19 04:07 04/05/19 04:07 04/05/19 04:07 General appearance: no acute distress HEENT: Positive: PERRL, Normocephaly, Mucus Membranes Moist Neck: Positive: neck supple, trachea midline Cardiac: Positive: Reg Rate and Rhythm, S1/S2 Lungs: Positive: Decreased Breath Sounds Neuro: Positive: Grossly Intact Abdomen: Negative: Tender Skin: Negative: Rash Musculoskeletal: No Pain Extremities: Absent: edema Results 04/05/19 04:24 04/05/19 04:24 Cardiac Enzymes 04/05/19 Range/Units 04:28 AST 16 (5-40) units/L Coagulation 04/05/19 Range/Units 04:28 PT 13.9 (12.2-14.9) Sec. INR 1.08 (0.87-1.13) APTT 27.4 (24.2-36.6) Sec. Lipids 04/05/19 Range/Units 04:28 Triglycerides 90 (2-149) mg/dL Cholesterol 148 (50-199) mg/dL HDL Cholesterol 59 (40-59) mg/dL Cholesterol/HDL Ratio 2.50 % CBC 04/05/19 Range/Units 04:24 WBC 13.9 H (4.5-11.0) K/mm3 RBC 3.45 L (3.65-5.03) M/mm3 Hgb 10.1 L (11.8-15.2) gm/dl Hct 30.7 L (35.5-45.6) % Plt Count 230 (140-440) K/mm3 Lymph # 4.0 (1.2-5.4) K/mm3 [place] # 1.0 H (0.0-0.8) K/mm3 Eos # 0.9 H (0.0-0.4) K/mm3 Baso # 0.2 H (0.0-0.1) K/mm3 Comprehensive Metabolic Panel 04/05/19 04/05/19 Range/Units 04:24 04:28 Sodium 138 (137-145) mmol/L Potassium 4.9 (3.6-5.0) mmol/L Chloride 105.0 (98-107) mmol/L Carbon Dioxide 20 L (22-30) mmol/L BUN 39 H (9-20) mg/dL Creatinine 1.4 (0.8-1.5) mg/dL Glucose 129 H (75-100) mg/dL Calcium 8.5 (8.4-10.2) mg/dL Direct Bilirubin < 0.2 (0-0.2) mg/dL Indirect Bilirubin 0.1 mg/dL AST 16 (5-40) units/L ALT 13 (7-56) units/L Alkaline Phosphatase 52 (35-129) units/L Total Protein 6.1 L (6.3-8.2) g/dL Albumin 3.7 L (3.9-5) g/dL - Imaging and Cardiology Echo: report reviewed ( 11/2018 showed EF 40-45%, mild pulmonary htn, moderate TR and calcified aortic & mitral valves with [id number] stenosis. ) EKG: report reviewed, image reviewed EKG interpretations - Telemetry EKG Rhythm: Sinus Rhythm - EKG Sinus rhythms and dysrhythmias: sinus rhythm AV and intraventricular conduction: right bundle branch block Assessment and Plan Currently stable cardiac status. Pt noted to have minimally elevated troponins which appear nonspecific at this time. Cont to trend Iggy and repeat ECG in AM. Ok to hold ASA and Plavix in setting of current GI bleed. Pt is at moderate cardiovascular risk for endoscopy. There are no immediate cardiac contraindications to proceeding with endoscopy. Await GI recs. The patient has been seen in conjunction with Dr. Pruett who agrees with the assessment and plan of care. - Patient Problems (1) GI bleeding Current Visit: Yes Status: Acute (2) Anemia Current Visit: Yes Status: Acute (3) CAD (coronary artery disease) Current Visit: Yes Status: Chronic Qualifiers: Coronary Disease-Associated Artery/Lesion type: mcgrath artery [place] vs. transplanted heart: mcgrath heart (4) History of coronary artery bypass graft Current Visit: Yes Status: Chronic (5) S/P mitral valve repair Current Visit: Yes Status: Chronic (6) Elevated troponin Current Visit: Yes Status: Acute (7) HTN (hypertension) Current Visit: Yes Status: Chronic Qualifiers: Hypertension type: essential hypertension Qualified Code(s): I10 - Essential (primary) hypertension (8) HLD (hyperlipidemia) Current Visit: Yes Status: Chronic Qualifiers: Hyperlipidemia type: mixed hyperlipidemia Qualified Code(s): E78.2 - Mixed hyperlipidemia (9) Carotid stenosis Current Visit: Yes Status: Chronic (10) Moderate tricuspid regurgitation Current Visit: Yes Status: Chronic (11) Right bundle branch block Current Visit: Yes Status: Chronic
[2019-04-05] MEDS: BUDESONIDE 0.5 MG/2 ML NEBU IH SCH ×2 (12:28→21:13)
[2019-04-05] MEDS: ARFORMOTEROL 15 MCG/2 ML NEBU IH SCH ×2 (12:29→21:13)
[2019-04-05] MEDS: ACETAMINOPHEN 325 MG TAB PO PRN (16:52)
[2019-04-05] MEDS ORDERED: POLYETHYLENE GLYCOL/ELECT SOLN 4000 ML PO ONE (17:00)
[2019-04-05] MEDS: FUROSEMIDE 20 MG TAB PO SCH (17:11)
[2019-04-05] MEDS: METOPROLOL TARTRATE 25 MG TAB PO SCH (22:13)
[2019-04-05] MEDS: cloNIDine 0.2 MG TAB PO SCH (22:13)
[2019-04-05] MEDS: hydrALAZINE 100 MG TAB PO SCH (22:13)
[2019-04-05] MEDS: MONTELUKAST 10 MG TAB PO SCH (22:13)
[2019-04-06] MEDS: ACETAMINOPHEN 325 MG TAB PO PRN (00:34)
[2019-04-06 04:02] LABS: Hemoglobin 6.5 gm/dl (11.8-15.2); Mean Corpuscular HGB Conc 34 % (32-34); Mean Corpuscular Volume 88 fl (84-94); Platelet Count 164 K/mm3 (140-440); Red Blood Count 2.19 M/mm3 (3.65-5.03); Red Cell Distribution Width 15.7 % (13.2-15.2)
[2019-04-06 04:28] LABS: Calcium 7.8 mg/dL (8.4-10.2)
[2019-04-06 04:50] LABS: Hematocrit 19.3 % (35.5-45.6)
[2019-04-06] MEDS ORDERED: SODIUM CHLORIDE 0.9% 500 ML 500 ML IV ONE (05:30)
[2019-04-06] MEDS: FUROSEMIDE 20 MG TAB PO SCH ×2 (05:51→18:36)
[2019-04-06] MEDS: PANTOPRAZOLE 80 MG in SODIUM CHLORIDE 0.9% 100 ML IV SCH ×2 (06:20→18:35)
[2019-04-06 06:39] LABS: Anisocytosis 1+; Basophils % (Manual) 0 % (0.0-1.8); Eosinophils % (Manual) 0 % (0.0-4.3); Hypochromasia 1+; Platelet Estimate Consistent w Auto; Total Cells Counted 100
--- NOTE | 2019-04-06 10:16 | Progress Note ---
Assessment and Plan Currently stable cardiac status. Pt noted to have minimally elevated troponins which appear nonspecific at this time. Ok to hold ASA and Plavix in setting of current GI bleed. Pt is at moderate cardiovascular risk for endoscopy. There are no immediate cardiac contraindications to proceeding with endoscopy. Await GI recs. The patient has been seen in conjunction with Dr. Pruett who agrees with the assessment and plan of care. - Patient Problems (1) GI bleeding Current Visit: Yes Status: Acute (2) Anemia Current Visit: Yes Status: Acute (3) CAD (coronary artery disease) Current Visit: Yes Status: Chronic Qualifiers: Coronary Disease-Associated Artery/Lesion type: [place] artery [place] vs. transplanted heart: [place] heart (4) History of coronary artery bypass graft Current Visit: Yes Status: Chronic (5) S/P mitral valve repair Current Visit: Yes Status: Chronic (6) Elevated troponin Current Visit: Yes Status: Acute (7) HTN (hypertension) Current Visit: Yes Status: Chronic Qualifiers: Hypertension type: essential hypertension Qualified Code(s): I10 - Essential (primary) hypertension (8) HLD (hyperlipidemia) Current Visit: Yes Status: Chronic Qualifiers: Hyperlipidemia type: mixed hyperlipidemia Qualified Code(s): E78.2 - Mixed hyperlipidemia (9) Carotid stenosis Current Visit: Yes Status: Chronic (10) Moderate tricuspid regurgitation Current Visit: Yes Status: Chronic (11) Right bundle branch block Current Visit: Yes Status: Chronic Subjective Date of service: 04/06/19 Principal diagnosis: GI bleed Interval history: pt resting in bed, no current complaints. receiving PRBC tx. for EGD/colonoscopy today. in SR. Objective Last Vital Signs Temp 98.5 F 04/06/19 07:16 Pulse 64 04/06/19 07:17 Resp 18 04/06/19 07:16 BP 147/66 04/06/19 08:28 Pulse Ox 100 04/06/19 07:17 - Physical Examination General: No Apparent Distress HEENT: Positive: PERRL, Normocephaly, Mucus Membranes Moist Neck: Positive: neck supple, trachea midline Cardiac: Positive: Reg Rate and Rhythm, S1/S2 Lungs: Positive: Decreased Breath Sounds Neuro: Positive: Grossly Intact Abdomen: Negative: Tender Skin: Negative: Rash Musculoskeletal: No Pain Extremities: Absent: edema - Labs and Meds CBC 04/06/19 Range/Units 03:35 WBC 13.0 H (4.5-11.0) K/mm3 RBC 2.19 L (3.65-5.03) M/mm3 Hgb 6.5 L D (11.8-15.2) gm/dl Hct 19.3 L* D (35.5-45.6) % Plt Count 164 (140-440) K/mm3 Comprehensive Metabolic Panel 04/06/19 Range/Units 03:35 Sodium 139 (137-145) mmol/L Potassium 4.7 (3.6-5.0) mmol/L Chloride 107.8 H (98-107) mmol/L Carbon Dioxide 17 L (22-30) mmol/L BUN 44 H (9-20) mg/dL Creatinine 1.7 H (0.8-1.5) mg/dL Glucose 129 H (75-100) mg/dL Calcium 7.8 L (8.4-10.2) mg/dL - Imaging and Cardiology EKG: report reviewed, image reviewed Echo: report reviewed ( 11/2018 showed EF 40-45%, mild pulmonary htn, moderate TR and calcified aortic & mitral valves with [id number] stenosis. ) - EKG Sinus rhythms and dysrhythmias: sinus rhythm AV and intraventricular conduction: right bundle branch block
[2019-04-06] MEDS: ARFORMOTEROL 15 MCG/2 ML NEBU IH SCH ×3 (10:25→21:47)
[2019-04-06] MEDS: BUDESONIDE 0.5 MG/2 ML NEBU IH SCH ×3 (10:26→21:47)
[2019-04-06] MEDS: hydrALAZINE 100 MG TAB PO SCH ×2 (11:50→22:22)
[2019-04-06] MEDS: cloNIDine 0.2 MG TAB PO SCH ×2 (11:50→22:22)
--- NOTE | 2019-04-06 13:59 | Progress Note ---
Assessment and Plan Assessment and plan: 84-year-old man who presents to the hospital with red bloody stools GI bleed GI notes appreciated Patient underwent EGD 10/2018 previously which showed duodenal ulcer, erosive gas tritis and small hiatal hernia. Also underwent colonoscopy in 2017 which showed diverticulosis and a small polyp which was removed. -Continue PPI drip per GI, if patient is to continue to have bloody BMs will need CT angiogram of the abdomen on nuclear medicine bleeding scan. for egd cscope today -Plavix and NSAIDs have been put on hold (takes indomethacin at home) CARRIE likely vasomotor nephropathy hold diuretics, IVF, nephrology consult Acute blood loss anemia 1 unit prbc SIRS, without organ damage, noninfectious etiology History of heart disease, status post CABG for CAD, aortic stenosis status post mitral valve replacement.- CHF ef 45 - Follows with [facility], GI consulted, continue his meds if he is able to tolerate them. -Needs cardiology evaluation prior to EGD colonoscopy, they have been consulted. ?highly doubt compliance w PPI? Hypertension Continue BP meds COPD therapeutic substitution for home meds, on advair , proair and singulair BPH cont flomax DVT prophylaxis SCDs in light of GI bleed Hospitalist Physical - Physical exam Narrative exam: Review of systems Constitutional: No fevers, no malaise, no joint pains CVS: No chest pain, no orthopnea, no pedal edema GI: No abdominal pain, no diarrhea, no vomiting, no constipation Denies melena or hematochezia Respiratory: No shortness of breath, no wheezing, no coughing - Constitutional Vitals: Temp Pulse Resp BP Pulse Ox 98.2 F 85 18 178/58 100 04/06/19 12:59 04/06/19 12:59 04/06/19 12:59 04/06/19 12:59 04/06/19 12:59 General appearance: Present: no acute distress Results - Labs CBC & Chem 7: 04/06/19 23:12 04/07/19 15:06 Labs: Laboratory Last Values WBC 13.0 K/mm3 (4.5-11.0) H 04/06/19 03:35 RBC 2.19 M/mm3 (3.65-5.03) L 04/06/19 03:35 Hgb 6.5 gm/dl (11.8-15.2) L D 04/06/19 03:35 Hct 19.3 % (35.5-45.6) L* D 04/06/19 03:35 MCV 88 fl (84-94) 04/06/19 03:35 MCH 30 pg (28-32) 04/06/19 03:35 MCHC 34 % (32-34) 04/06/19 03:35 RDW 15.7 % (13.2-15.2) H 04/06/19 03:35 Plt Count 164 K/mm3 (140-440) 04/06/19 03:35 Lymph % (Auto) 28.8 % (13.4-35.0) 04/05/19 04:24 [place] % (Auto) 7.0 % (0.0-7.3) 04/05/19 04:24 Eos % (Auto) 6.4 % (0.0-4.3) H 04/05/19 04:24 Baso % (Auto) 1.3 % (0.0-1.8) 04/05/19 04:24 Lymph # 4.0 K/mm3 (1.2-5.4) 04/05/19 04:24 [place] # 1.0 K/mm3 (0.0-0.8) H 04/05/19 04:24 Eos # 0.9 K/mm3 (0.0-0.4) H 04/05/19 04:24 Baso # 0.2 K/mm3 (0.0-0.1) H 04/05/19 04:24 Add Manual Diff Complete 04/06/19 03:35 Total Counted 100 04/06/19 03:35 Seg Neutrophils % 56.5 % (40.0-70.0) 04/05/19 04:24 Seg Neuts % (Manual) 81.0 % (40.0-70.0) H 04/06/19 03:35 Band Neutrophils % 0 % 04/06/19 03:35 Lymphocytes % (Manual) 16.0 % (13.4-35.0) 04/06/19 03:35 Reactive Lymphs % (Man) 0 % 04/06/19 03:35 Monocytes % (Manual) 3.0 % (0.0-7.3) 04/06/19 03:35 Eosinophils % (Manual) 0 % (0.0-4.3) 04/06/19 03:35 Basophils % (Manual) 0 % (0.0-1.8) 04/06/19 03:35 Metamyelocytes % 0 % 04/06/19 03:35 Myelocytes % 0 % 04/06/19 03:35 Promyelocytes % 0 % 04/06/19 03:35 Blast Cells % 0 % 04/06/19 03:35 Nucleated RBC % Not Reportable 04/06/19 03:35 Seg Neutrophils # 7.8 K/mm3 (1.8-7.7) H 04/05/19 04:24 Seg Neutrophils # Man 10.5 K/mm3 (1.8-7.7) H 04/06/19 03:35 Band Neutrophils # 0.0 K/mm3 04/06/19 03:35 Lymphocytes # (Manual) 2.1 K/mm3 (1.2-5.4) 04/06/19 03:35 Abs React Lymphs (Man) 0.0 K/mm3 04/06/19 03:35 Monocytes # (Manual) 0.4 K/mm3 (0.0-0.8) 04/06/19 03:35 Eosinophils # (Manual) 0.0 K/mm3 (0.0-0.4) 04/06/19 03:35 Basophils # (Manual) 0.0 K/mm3 (0.0-0.1) 04/06/19 03:35 Metamyelocytes # 0.0 K/mm3 04/06/19 03:35 Myelocytes # 0.0 K/mm3 04/06/19 03:35 Promyelocytes # 0.0 K/mm3 04/06/19 03:35 Blast Cells # 0.0 K/mm3 04/06/19 03:35 WBC Morphology Not Reportable 04/06/19 03:35 Hypersegmented Neuts Not Reportable 04/06/19 03:35 Hyposegmented Neuts Not Reportable 04/06/19 03:35 Hypogranular Neuts Not Reportable 04/06/19 03:35 Smudge Cells Not Reportable 04/06/19 03:35 Toxic Granulation Not Reportable 04/06/19 03:35 Toxic Vacuolation Not Reportable 04/06/19 03:35 Dohle Bodies Not Reportable 04/06/19 03:35 Pelger-Huet Anomaly Not Reportable 04/06/19 03:35 Liang Rods Not Reportable 04/06/19 03:35 Platelet Estimate Consistent w auto 04/06/19 03:35 Clumped Platelets Not Reportable 04/06/19 03:35 Plt Clumps, EDTA Not Reportable 04/06/19 03:35 Large Platelets Not Reportable 04/06/19 03:35 Giant Platelets Not Reportable 04/06/19 03:35 Platelet Satelliting Not Reportable 04/06/19 03:35 Plt Morphology Comment Not Reportable 04/06/19 03:35 RBC Morphology Not Reportable 04/06/19 03:35 Dimorphic RBCs Not Reportable 04/06/19 03:35 Polychromasia Not Reportable 04/06/19 03:35 Hypochromasia 1+ 04/06/19 03:35 Poikilocytosis Not Reportable 04/06/19 03:35 Anisocytosis 1+ 04/06/19 03:35 Microcytosis Not Reportable 04/06/19 03:35 Macrocytosis Not Reportable 04/06/19 03:35 Spherocytes Not Reportable 04/06/19 03:35 Pappenheimer Bodies Not Reportable 04/06/19 03:35 Sickle Cells Not Reportable 04/06/19 03:35 Target Cells Not Reportable 04/06/19 03:35 Tear Drop Cells Not Reportable 04/06/19 03:35 Ovalocytes Not Reportable 04/06/19 03:35 Helmet Cells Not Reportable 04/06/19 03:35 [place] Bodies Not Reportable 04/06/19 03:35 [place] Rings Not Reportable 04/06/19 03:35 Deep Cells Not Reportable 04/06/19 03:35 Bite Cells Not Reportable 04/06/19 03:35 Crenated Cell Not Reportable 04/06/19 03:35 Elliptocytes Not Reportable 04/06/19 03:35 Acanthocytes (Spur) Not Reportable 04/06/19 03:35 Rouleaux Not Reportable 04/06/19 03:35 Hemoglobin C Crystals Not Reportable 04/06/19 03:35 Schistocytes Not Reportable 04/06/19 03:35 Malaria parasites Not Reportable 04/06/19 03:35 Fuad Bodies Not Reportable 04/06/19 03:35 Hem Pathologist Commnt No 04/06/19 03:35 PT 13.9 Sec. (12.2-14.9) 04/05/19 04:28 INR 1.08 (0.87-1.13) 04/05/19 04:28 APTT 27.4 Sec. (24.2-36.6) 04/05/19 04:28 Sodium 139 mmol/L (137-145) 04/06/19 03:35 Potassium 4.7 mmol/L (3.6-5.0) 04/06/19 03:35 Chloride 107.8 mmol/L (98-107) H 04/06/19 03:35 Carbon Dioxide 17 mmol/L (22-30) L 04/06/19 03:35 Anion Gap 19 mmol/L 04/06/19 03:35 BUN 44 mg/dL (9-20) H 04/06/19 03:35 Creatinine 1.7 mg/dL (0.8-1.5) H 04/06/19 03:35 Estimated GFR 38 ml/min 04/06/19 03:35 BUN/Creatinine Ratio 26 % 04/06/19 03:35 Glucose 129 mg/dL (75-100) H 04/06/19 03:35 Calcium 7.8 mg/dL (8.4-10.2) L 04/06/19 03:35 Magnesium 2.00 mg/dL (1.7-2.3) 04/05/19 04:28 Total Bilirubin 0.30 mg/dL (0.1-1.2) 04/05/19 04:28 Direct Bilirubin < 0.2 mg/dL (0-0.2) 04/05/19 04:28 Indirect Bilirubin 0.1 mg/dL 04/05/19 04:28 AST 16 units/L (5-40) 04/05/19 04:28 ALT 13 units/L (7-56) 04/05/19 04:28 Alkaline Phosphatase 52 units/L (35-129) 04/05/19 04:28 Troponin T 0.040 ng/mL (0.00-0.029) H 04/06/19 03:35 Total Protein 6.1 g/dL (6.3-8.2) L 04/05/19 04:28 Albumin 3.7 g/dL (3.9-5) L 04/05/19 04:28 Albumin/Globulin Ratio 1.5 % 04/05/19 04:28 Triglycerides 90 mg/dL (2-149) 04/05/19 04:28 Cholesterol 148 mg/dL (50-199) 04/05/19 04:28 LDL Cholesterol Direct 88 mg/dL (50-130) 04/05/19 04:28 HDL Cholesterol 59 mg/dL (40-59) 04/05/19 04:28 Cholesterol/HDL Ratio 2.50 % 04/05/19 04:28 Blood Type O POSITIVE 04/05/19 04:00 Antibody Screen Negative 04/05/19 04:00 Crossmatch See Detail 04/05/19 04:00 Active Medications - Current Medications Current Medications: Generic Name Dose Route Start Last Admin Trade Name Freq PRN Reason Stop Dose Admin Acetaminophen 650 mg 04/05/19 11:24 04/06/19 00:34 Tylenol PO 650 mg Q4H PRN Administration Pain MILD(1-3)/Fever >100.5/BRYAN Albuterol 2.5 mg 04/05/19 11:26 Proventil IH Q4HRT PRN Shortness Of Breath Arformoterol Tartrate 15 mcg 04/05/19 20:00 04/06/19 12:00 Brovana Nebu IH 15 mcg Q12HRT TERESA Administration Atorvastatin Calcium 20 mg 04/05/19 22:00 04/05/19 22:13 Lipitor PO 20 mg QHS TERESA Administration Budesonide 0.5 mg 04/05/19 20:00 04/06/19 12:00 Pulmicort IH 0.5 mg Q12HRT TERESA Administration Clonidine HCl 0.2 mg 04/05/19 22:00 04/06/19 11:50 Catapres PO 0.2 mg Q12HR TERESA Administration Furosemide 20 mg 04/05/19 18:00 04/06/19 05:51 Lasix PO 20 mg 0600,1800 TERESA Administration Hydralazine HCl 100 mg 04/05/19 22:00 04/06/19 11:50 Apresoline PO 100 mg BID TERESA Administration Pantoprazole Sodium 80 mg/ 100 mls @ 10 mls/hr 04/05/19 14:21 04/06/19 06:20 Sodium Chloride IV 8 mg/hr DIRECT TERESA 10 mls/hr Administration 8 MG/HR Metoprolol Tartrate 25 mg 04/05/19 22:00 04/05/19 22:13 Metoprolol PO 25 mg BID TERESA Administration Montelukast Sodium 10 mg 04/05/19 22:00 04/05/19 22:13 Singulair PO 10 mg QHS TERESA Administration Ondansetron HCl 4 mg 04/05/19 11:24 04/05/19 20:43 Zofran IV 4 mg Q8H PRN Administration Nausea And Vomiting Sodium Chloride 10 ml 04/05/19 22:00 04/06/19 11:35 Sodium Chloride Flush Syringe 10 Ml IV 10 ml BID TERESA Administration Sodium Chloride 10 ml 04/05/19 11:24 Sodium Chloride Flush Syringe 10 Ml IV PRN PRN LINE FLUSH Tamsulosin HCl 0.4 mg 04/06/19 10:00 Flomax PO QDAY TERESA
[2019-04-06] MEDS: METOPROLOL TARTRATE 25 MG TAB PO SCH ×2 (14:18→22:22)
[2019-04-06 15:24] LABS: Hematocrit 25.4 % (35.5-45.6); Hemoglobin 8.4 gm/dl (11.8-15.2)
[2019-04-06 15:29] LABS: Hematocrit 25.6 % (35.5-45.6); Hemoglobin 8.4 gm/dl (11.8-15.2)
[2019-04-06] MEDS ORDERED: LIDOCAINE MPF (2%) 20 MG/1 ML VIAL 5 ML ONE (16:00)
--- NOTE | 2019-04-06 16:17 | Anesthesia Consultation ---
Anesthesia Consult and Med Hx Date of service: 04/06/19 - Airway Anesthetic Teeth Evaluation: Good ROM Head & Neck: Adequate Mental/Hyoid Distance: Adequate Mallampati Class: Class III Intubation Access Assessment: Possibly Difficult - Pre-Operative Health Status ASA Pre-Surgery Classification: ASA3 Proposed Anesthetic Plan: MAC - Pulmonary Hx Smoking: Yes (quit 10 yr with 20pk yrs) SOB: Yes (PRN INHALER) COPD: Yes Hx Pneumonia: Yes (2015) Hx Sleep Apnea: No (HIGH RISK PROTOCOL INITIATED) - Cardiovascular System Hx Hypertension: Yes (Gets tired easily) Hx Coronary Artery Disease: Yes (mild LVH; Right BBB) Hx Heart Attack/AMI: No Hx Angina: No (Knee pain limits METs assessment) Hx Internal Defibrillator: No (CARDIOMYOPATHY) Hx Valvular Heart Disease: Yes (TRISCUPID REGURG) Hx Heart Murmur: Yes (MVR W/ TRICUSPID VALVE; RBBB) Hx Peripheral Vascular Disease: Yes (HX CAROTID STENOSIS, LEFT CEA 02/2015) - Central Nervous System Hx Psychiatric Problems: No - Gastrointestinal Hx Gastroesophageal Reflux Disease: Yes - Hematic Hx Anemia: Yes - Other Systems Hx Alcohol Use: Yes (OCCAS) Hx Cancer: No
[2019-04-06] MEDS ORDERED: SODIUM CHLORIDE 0.9% 1000 ML 1,000 ML ONE (16:18)
--- NOTE | 2019-04-06 16:18 | Anesthesia Day of Surgery ---
Anesthesia Day of Surgery - Day of Surgery Patient Examined: Yes Patient H&P Reviewed: Yes Patient is NPO: Yes Beta Blockers: No
[2019-04-06] MEDS ORDERED: PROPOFOL 200 MG/20 ML VIAL IV ONE ×2 (16:43)
--- NOTE | 2019-04-06 17:06 | Operative Report ---
Operative Report Operative Report: Esophagogastroduodenoscopy Procedure Note Date of procedure: 04/06/2019 Endoscopist: Arpit Rodriguez Pre-op diagnosis: GI bleed Post-op diagnosis: Normal upper endoscopy Anesthesia: MAC Complications: No immediate complications Estimated blood loss: None Procedure: After consent was obtained from the patient's son, the patient was placed in the left lateral decubitus position. The olympus endoscope was inserted into the patient's mouth under direct vision, and advanced into the 2nd portion of the duodenum without difficulty. The patient tolerated the procedure well. The views of the mucosa were good. Patient's vital signs were monitored continuously throughout the procedure. Findings: The esophagus appeared normal. The stomach appeared normal. The duodenum appeared normal. Impression: 1. Normal upper endoscopy without source of bleeding identified. Recommendations: -colonoscopy to follow
--- NOTE | 2019-04-06 17:11 | Operative Report ---
Operative Report Operative Report: Colonoscopy Procedure Note Date of procedure: 04/06/2019 Endoscopist: Arpit Rodriguez Pre-op diagnosis: GI bleed Post-op diagnosis: Diverticulosis, internal hemorrhoids Anesthesia: MAC Complications: No immediate complications Estimated blood loss: None Procedure: After consent was obtained, the patient was placed in the left lateral decubitus position. The olympus colonoscope was inserted into the patient's rectum under direct vision, and advanced to the cecum and terminal ileum without difficulty. The patient tolerated the procedure well. The views of the mucosa were good. The quality of prep was good. The patient's vital signs were monitored continuously throughout the procedure. Findings: The terminal ileum appeared normal without blood seen. There were multiple small and medium sized diverticula throughout the entire colon. No blood was seen during the procedure. No high risk bleeding stigmata or other possible source of bleeding identified. Impression: 1. Diverticulosis throughout the colon. Likely source of bleeding. No active bleeding or blood seen during the procedure Recommendations: -monitor labs overnight -start clears tonight and advance tomorrow if no further bleeding -if pt re-bleeds, obtain stat CTA/bleeding scan -okay to restart aspirin from GI stand point. okay to restart plavix in 3-5 days if no further bleeding from GI stand point, and if indicated per cardiology
[2019-04-06] MEDS: TAMSULOSIN 0.4 MG CAP PO SCH (18:34)
[2019-04-06] MEDS: MONTELUKAST 10 MG TAB PO SCH (22:22)
[2019-04-07 00:29] LABS: Hematocrit 23.6 % (35.5-45.6); Hemoglobin 7.7 gm/dl (11.8-15.2)
[2019-04-07] MEDS: FUROSEMIDE 20 MG TAB PO SCH (05:42)
[2019-04-07] MEDS: PANTOPRAZOLE 80 MG in SODIUM CHLORIDE 0.9% 100 ML IV SCH (05:43)
--- NOTE | 2019-04-07 08:31 | Progress Note ---
Assessment and Plan Patient was admitted for GI bleeding with symptomatic anemia requiring blood transfusion endoscopy which revealed no acute source of bleeding. With diverticulosis on colonoscopy. Patient dual antiplatelet therapy is being held until cleared by GI. Blood pressure and heart rate control on current regimen of medications. Continue current management - Patient Problems (1) GI bleeding Current Visit: Yes Status: Acute (2) CAD (coronary artery disease) Current Visit: Yes Status: Chronic Qualifiers: Coronary Disease-Associated Artery/Lesion type: [place] artery [place] vs. transplanted heart: [place] heart (3) Carotid stenosis Current Visit: Yes Status: Chronic (4) HLD (hyperlipidemia) Current Visit: Yes Status: Chronic Qualifiers: Hyperlipidemia type: mixed hyperlipidemia Qualified Code(s): E78.2 - Mixed hyperlipidemia (5) HTN (hypertension) Current Visit: Yes Status: Chronic Qualifiers: Hypertension type: essential hypertension Qualified Code(s): I10 - Essential (primary) hypertension (6) History of coronary artery bypass graft Current Visit: Yes Status: Chronic (7) S/P mitral valve repair Current Visit: Yes Status: Chronic (8) Acute blood loss anemia Current Visit: No Status: Acute (9) NSTEMI (non-ST elevated myocardial infarction) Current Visit: No Status: Acute Subjective Date of service: 04/07/19 Principal diagnosis: GI bleed Interval history: sitting in bed no sob Objective Vital Signs Temp Pulse Pulse Resp Resp BP Pulse Ox 04/07/19 07:17 98.1 F 69 18 126/48 88 04/06/19 23:40 98.5 F 53 L 18 96/37 94 04/06/19 21:52 88 18 04/06/19 21:51 90 04/06/19 20:00 18 04/06/19 17:30 70 12 148/46 100 04/06/19 17:21 73 14 105/41 100 04/06/19 17:06 98.1 F 80 12 159/65 100 04/06/19 16:23 98.3 F 56 L 13 136/45 100 04/06/19 14:37 98.2 F 65 18 132/65 100 04/06/19 14:32 18 132/35 04/06/19 14:18 72 126/45 04/06/19 14:14 68 18 126/45 96 04/06/19 13:29 98.2 F 68 18 132/65 100 04/06/19 12:59 98.2 F 85 18 178/58 100 04/06/19 12:31 72 18 170/78 100 04/06/19 12:29 94 H 18 170/78 100 04/06/19 12:22 18 162/64 04/06/19 12:15 97.6 F 83 18 162/64 98 04/06/19 12:01 90 2 L 04/06/19 12:00 97 04/06/19 11:59 97.6 F 66 18 173/63 98 04/06/19 11:57 67 18 173/63 100 04/06/19 11:50 64 173/63 04/06/19 11:35 68 18 100 04/06/19 11:31 67 18 174/63 100 04/06/19 11:29 98.6 F 63 18 149/52 100 04/06/19 11:14 97.8 F 68 18 149/52 99 04/06/19 09:30 97.6 F 70 18 153/53 98 04/06/19 09:27 65 18 153/53 100 - Physical Examination General: No Apparent Distress HEENT: Positive: PERRL, Normocephaly, Mucus Membranes Moist Neck: Positive: neck supple, trachea midline Cardiac: Positive: Reg Rate and Rhythm Lungs: Positive: clear to auscultation Neuro: Positive: Grossly Intact Abdomen: Negative: Tender Skin: Negative: Rash Musculoskeletal: No Pain Extremities: Absent: edema - Labs and Meds CBC 04/06/19 04/06/19 04/06/19 Range/Units 15:04 15:04 23:12 Hgb 8.4 L 8.4 L 7.7 L (11.8-15.2) gm/dl Hct 25.4 L D 25.6 L 23.6 L (35.5-45.6) % - Imaging and Cardiology EKG: report reviewed, image reviewed Echo: report reviewed ( 11/2018 showed EF 40-45%, mild pulmonary htn, moderate TR and calcified aortic & mitral valves with [id number] stenosis. ) - Telemetry EKG Rhythm: Sinus Rhythm - EKG Sinus rhythms and dysrhythmias: sinus rhythm AV and intraventricular conduction: right bundle branch block
[2019-04-07] MEDS: BUDESONIDE 0.5 MG/2 ML NEBU IH SCH ×2 (08:35→22:37)
[2019-04-07] MEDS: ARFORMOTEROL 15 MCG/2 ML NEBU IH SCH ×2 (08:35→22:37)
[2019-04-07] MEDS: TAMSULOSIN 0.4 MG CAP PO SCH (09:35)
[2019-04-07] MEDS: METOPROLOL TARTRATE 25 MG TAB PO SCH ×2 (09:38→21:33)
[2019-04-07] MEDS: cloNIDine 0.2 MG TAB PO SCH ×2 (09:38→21:33)
[2019-04-07] MEDS: hydrALAZINE 100 MG TAB PO SCH ×2 (09:39→21:32)
[2019-04-07] MEDS: SODIUM CHLORIDE 0.45% 1000 ML 1,000 ML IV SCH (09:44)
--- NOTE | 2019-04-07 10:59 | Gastroenterology Progress Note ---
Assessment and Plan GI bleed - s/p egd/colonoscopy. no blood seen during procedures; only revealing source was diverticulosis (throughout the colon). suspect diverticular bleed which seems to have resolved. okay to start aspirin from gi stand point. start diet and possible d/c tomorrow if labs stable and no further bleeding. Subjective Date of service: 04/07/19 Principal diagnosis: GI bleed Interval history: pt seen and examined; called pt's son to translate during visit. no further bleeding episodes since procedure. denies abd pain Objective - Constitutional Vitals: Temp Pulse Resp BP Pulse Ox 98.1 F 74 18 121/44 93 04/07/19 07:17 04/07/19 09:38 04/07/19 08:35 04/07/19 09:38 04/07/19 08:39 General appearance: no acute distress - Respiratory Respiratory effort: normal Respiratory: bilateral: CTA - Cardiovascular Rhythm: regular Heart Sounds: Present: S1 & S2 - Gastrointestinal General gastrointestinal: Present: soft, non-tender, non-distended - Neurologic Neurological: alert and oriented x3 - Labs CBC & Chem 7: 04/06/19 23:12 04/06/19 03:35 Labs: Laboratory Results - last 24 hr 04/05/19 04/06/19 04/06/19 04:00 15:04 15:04 Hgb 8.4 L 8.4 L Hct 25.4 L D 25.6 L POC Glucose Blood Type O POSITIVE Antibody Screen Negative Crossmatch See Detail 04/06/19 04/07/19 23:12 07:24 Hgb 7.7 L Hct 23.6 L POC Glucose 117 H Blood Type Antibody Screen Crossmatch
--- NOTE | 2019-04-07 11:05 | Post Anesthesia Evaluation ---
- Post Anesthesia Evaluation Patient Participated: Yes Airway Patent: Yes Stable Respiratory Function: Yes Nausea/Vomiting: No Temp > 96.8F: Yes Pain Manageable: Yes Adequeate Hydration: Yes Anesthesia Complications: No Block Receding Appropriately: Not Applicable Patient on Ventilator: No
[2019-04-07] MEDS: ASPIRIN EC 81 MG TAB PO SCH (12:33)
--- NOTE | 2019-04-07 14:01 | Consultation ---
History of Present Illness - Reason for Consult Consult date: 04/07/19 acute renal failure Requesting physician: WANDER SANCHEZ - History of Present Illness This is a 83 yo [place] M, past medical history of HTN, CAD s/p CABG (2004), mitral valve repair (2004), carotid stenosis s/p CEA , RBBB, prostate cancer, who was initially admitted afer presenting with diarrhea and BRBPR, pt was taking plavix, but no ASA. Hb on admission was 10.1 which dropped to 6.5. pat ient was admitted for blood transfusion and further GI work up with EGD/Colonoscopy. Labs also showed worsening renal function with BUN/Cr at 39/1.4 on admission rising to 44/1.7mg/dl, renal consult is requested for management of CARRIE. Pt denies NSAIS use or recent IV contrast exposure. Pt speaks only Vietnames, thus history was obtained by pt's son. Based on chart review baseline Cr was 0.9 - 1mg/dl in Jan 2019. Past History Past Medical History: anemia, arthritis, CAD, COPD, heart failure, hypertension, hyperlipidemia, other (carotid stenosis, Pulm HTN, RBBB, CAD) Past Surgical History: valve replacement, Other (EGD/ Colonoscopy) Social history: lives with family Family history: no significant family history Medications and Allergies Allergies Allergy/AdvReac Type Severity Reaction Status Date / Time No Known Allergies Allergy Verified 11/11/18 08:08 Home Medications Medication Instructions Recorded Confirmed Last Taken Type cloNIDine [Catapres] 0.2 mg PO BID 07/04/18 01/26/19 01/25/19 History hydrALAZINE [Apresoline TAB] 100 mg PO BID tab 07/09/18 01/26/19 01/25/19 Rx AtorvaSTATin 10 mg PO QHS #30 tablet 01/30/19 Unknown Rx Metoprolol [Lopressor TAB] 25 mg PO BID #60 tablet 01/30/19 Unknown Rx levoFLOXacin [Levaquin] 750 mg PO QDAY #5 tablet 01/30/19 Unknown Rx Active Meds: Active Medications Acetaminophen (Tylenol) 650 mg PO Q4H PRN PRN Reason: Pain MILD(1-3)/Fever >100.5/BRYAN Last Admin: 04/06/19 00:34 Dose: 650 mg Documented by: Albuterol (Proventil) 2.5 mg IH Q4HRT PRN PRN Reason: Shortness Of Breath Arformoterol Tartrate (Brovana Nebu) 15 mcg IH Q12HRT [facility] Last Admin: 04/07/19 08:35 Dose: 15 mcg Documented by: Aspirin (Halfprin Ec) 81 mg PO QDAY [facility] Last Admin: 04/07/19 12:33 Dose: 81 mg Documented by: Atorvastatin Calcium (Lipitor) 20 mg PO QHS [facility] Last Admin: 04/06/19 22:22 Dose: 20 mg Documented by: Budesonide (Pulmicort) 0.5 mg IH Q12HRT [facility] Last Admin: 04/07/19 08:35 Dose: 0.5 mg Documented by: Clonidine HCl (Catapres) 0.2 mg PO Q12HR [facility] Last Admin: 04/07/19 09:38 Dose: Not Given Documented by: Hydralazine HCl (Apresoline) 100 mg PO BID [facility] Last Admin: 04/07/19 09:39 Dose: 100 mg Documented by: Pantoprazole Sodium 80 mg/ (Sodium Chloride) 100 mls @ 10 mls/hr IV DIRECT [facility] Last Admin: 04/07/19 05:43 Dose: 8 mg/hr, 10 mls/hr Documented by: Sodium Chloride (Nacl 0.45% 1000 Ml) 1,000 mls @ 100 mls/hr IV DIRECT [facility] Last Admin: 04/07/19 09:44 Dose: 100 mls/hr Documented by: Metoprolol Tartrate (Metoprolol) 25 mg PO BID [facility] Last Admin: 04/07/19 09:38 Dose: 25 mg Documented by: Montelukast Sodium (Singulair) 10 mg PO QHS [facility] Last Admin: 04/06/19 22:22 Dose: 10 mg Documented by: Ondansetron HCl (Zofran) 4 mg IV Q8H PRN PRN Reason: Nausea And Vomiting Last Admin: 04/05/19 20:43 Dose: 4 mg Documented by: Sodium Chloride (Sodium Chloride Flush Syringe 10 Ml) 10 ml IV BID [facility] Last Admin: 04/07/19 09:39 Dose: 10 ml Documented by: Sodium Chloride (Sodium Chloride Flush Syringe 10 Ml) 10 ml IV PRN PRN PRN Reason: LINE FLUSH Tamsulosin HCl (Flomax) 0.4 mg PO QDAY [facility] Last Admin: 04/07/19 09:35 Dose: 0.4 mg Documented by: Review of Systems All systems: negative Constitutional: weakness, malaise Cardiovascular: dyspnea on exertion Gastrointestinal: diarrhea, BRBPR Exam - Vital Signs Vital signs: Vital Signs Temp Pulse Resp BP Pulse Ox 97.7 F 96 H 20 79/39 97 04/05/19 04:07 04/05/19 04:07 04/05/19 04:07 04/05/19 04:07 04/05/19 04:07 - General Appearance General appearance: well-developed, well-nourished, appears stated age EENT: ATNC, PERRL, mucous membranes moist Neck: Present: neck supple Respiratory: Clear to Ascultation Heart: regular, S1S2 Gastrointestinal: Present: normoactive bowel sounds Integumentary: no rash Neurologic: no focal deficit, CN 3-12 intact Psychiatric: mood/affect appropriate, cooperative Results - Lab Results 04/06/19 23:12 04/06/19 03:35 Most recent lab results Calcium 7.8 mg/dL (8.4-10.2) L 04/06/19 03:35 Magnesium 2.00 mg/dL (1.7-2.3) 04/05/19 04:28 Assessment and Plan - Patient Problems (1) Acute kidney injury (CARRIE) with acute tubular necrosis (ATN) Current Visit: Yes Status: Acute Plan to address problem: likely secondary to ischemic ATN in the setting of GI bleed/ blood loss anemia. cont IV NS at 100ml/hr, avoid nephrotoxins, NSAIDs, IV contrast. check UA, urine lytes to assess FeNA, check urine protein/cr ratio. will monitor lytes/renal parameters and make further recommendations. (2) GI bleeding Current Visit: Yes Status: Acute Plan to address problem: s/p EGD/Colonoscopy, which showed diverticulosis. s/p 2PRBC transfusion. follow GI recommendations. (3) Acute blood loss anemia Current Visit: No Status: Acute Plan to address problem: s/p 2PRBC transfusion (4) HTN (hypertension) Current Visit: Yes Status: Chronic Qualifiers: Hypertension type: essential hypertension Qualified Code(s): I10 - Essential (primary) hypertension Plan to address problem: BP controlled. monitor BP on current meds (5) NSTEMI (non-ST elevated myocardial infarction) Current Visit: No Status: Acute Plan to address problem: management as per cardiology
--- NOTE | 2019-04-07 14:54 | Progress Note ---
Assessment and Plan Assessment and plan: 84-year-old man who presents to the hospital with red bloody stools "Patient underwent EGD 10/2018 previously which showed duodenal ulcer, erosive gastritis and small hiatal hernia. Also underwent colonoscopy in 2017 which showed diverticulosis and a small polyp which was removed. -Continue PPI drip per GI, if patient is to continue to have bloody BMs will need CT angiogram of the abdomen on nuclear medicine bleeding scan. -Clear liquid diet for now, EGD colonoscopy tomorrow. -Plavix and NSAIDs have been put on hold (takes indomethacin at home)" acute lower GI bleed sp prbc, EGD and c scope were neg on 04/06, likely diverticular bleed restarted asa and diet, Likely dc tomorrow acute blood loss anemia sp 1 prbc CARRIE due to vasomotor nephropathy -IVF, renal consult, diuretics on hold SIRS, without organ damage, noninfectious etiology History of heart disease, status post CABG for CAD, aortic stenosis status post mitral valve replacement.- systolic CHF EF 45% -Continue cardiac meds Hypertension Continue BP meds COPD therapeutic substitution for home meds, on advair , proair and singulair BPH cont flomax DVT prophylaxis SCDs in light of GI bleed History Interval history: Review of systems Constitutional: No fevers, no malaise, no joint pains CVS: No chest pain, no orthopnea, no pedal edema GI: No abdominal pain, no diarrhea, no vomiting, no constipation, denies melena or hematochezia Respiratory: No shortness of breath, no wheezing, no coughing Hospitalist Physical - Physical exam Narrative exam: Review of systems Constitutional: No fevers, no malaise, no joint pains CVS: No chest pain, no orthopnea, no pedal edema GI: No abdominal pain, no diarrhea, no vomiting, no constipation Denies melena or hematochezia Respiratory: No shortness of breath, no wheezing, no coughing - Constitutional Vitals: Temp Pulse Resp BP Pulse Ox 98.1 F 74 18 121/44 91 04/07/19 07:17 04/07/19 09:38 04/07/19 08:35 04/07/19 09:38 04/07/19 09:33 General appearance: Present: no acute distress Results - Labs CBC & Chem 7: 04/06/19 23:12 04/07/19 15:06 Labs: Laboratory Last Values WBC 13.0 K/mm3 (4.5-11.0) H 04/06/19 03:35 RBC 2.19 M/mm3 (3.65-5.03) L 04/06/19 03:35 Hgb 7.7 gm/dl (11.8-15.2) L 04/06/19 23:12 Hct 23.6 % (35.5-45.6) L 04/06/19 23:12 MCV 88 fl (84-94) 04/06/19 03:35 MCH 30 pg (28-32) 04/06/19 03:35 MCHC 34 % (32-34) 04/06/19 03:35 RDW 15.7 % (13.2-15.2) H 04/06/19 03:35 Plt Count 164 K/mm3 (140-440) 04/06/19 03:35 Lymph % (Auto) 28.8 % (13.4-35.0) 04/05/19 04:24 [place] % (Auto) 7.0 % (0.0-7.3) 04/05/19 04:24 Eos % (Auto) 6.4 % (0.0-4.3) H 04/05/19 04:24 Baso % (Auto) 1.3 % (0.0-1.8) 04/05/19 04:24 Lymph # 4.0 K/mm3 (1.2-5.4) 04/05/19 04:24 [place] # 1.0 K/mm3 (0.0-0.8) H 04/05/19 04:24 Eos # 0.9 K/mm3 (0.0-0.4) H 04/05/19 04:24 Baso # 0.2 K/mm3 (0.0-0.1) H 04/05/19 04:24 Add Manual Diff Complete 04/06/19 03:35 Total Counted 100 04/06/19 03:35 Seg Neutrophils % 56.5 % (40.0-70.0) 04/05/19 04:24 Seg Neuts % (Manual) 81.0 % (40.0-70.0) H 04/06/19 03:35 Band Neutrophils % 0 % 04/06/19 03:35 Lymphocytes % (Manual) 16.0 % (13.4-35.0) 04/06/19 03:35 Reactive Lymphs % (Man) 0 % 04/06/19 03:35 Monocytes % (Manual) 3.0 % (0.0-7.3) 04/06/19 03:35 Eosinophils % (Manual) 0 % (0.0-4.3) 04/06/19 03:35 Basophils % (Manual) 0 % (0.0-1.8) 04/06/19 03:35 Metamyelocytes % 0 % 04/06/19 03:35 Myelocytes % 0 % 04/06/19 03:35 Promyelocytes % 0 % 04/06/19 03:35 Blast Cells % 0 % 04/06/19 03:35 Nucleated RBC % Not Reportable 04/06/19 03:35 Seg Neutrophils # 7.8 K/mm3 (1.8-7.7) H 04/05/19 04:24 Seg Neutrophils # Man 10.5 K/mm3 (1.8-7.7) H 04/06/19 03:35 Band Neutrophils # 0.0 K/mm3 04/06/19 03:35 Lymphocytes # (Manual) 2.1 K/mm3 (1.2-5.4) 04/06/19 03:35 Abs React Lymphs (Man) 0.0 K/mm3 04/06/19 03:35 Monocytes # (Manual) 0.4 K/mm3 (0.0-0.8) 04/06/19 03:35 Eosinophils # (Manual) 0.0 K/mm3 (0.0-0.4) 04/06/19 03:35 Basophils # (Manual) 0.0 K/mm3 (0.0-0.1) 04/06/19 03:35 Metamyelocytes # 0.0 K/mm3 04/06/19 03:35 Myelocytes # 0.0 K/mm3 04/06/19 03:35 Promyelocytes # 0.0 K/mm3 04/06/19 03:35 Blast Cells # 0.0 K/mm3 04/06/19 03:35 WBC Morphology Not Reportable 04/06/19 03:35 Hypersegmented Neuts Not Reportable 04/06/19 03:35 Hyposegmented Neuts Not Reportable 04/06/19 03:35 Hypogranular Neuts Not Reportable 04/06/19 03:35 Smudge Cells Not Reportable 04/06/19 03:35 Toxic Granulation Not Reportable 04/06/19 03:35 Toxic Vacuolation Not Reportable 04/06/19 03:35 Dohle Bodies Not Reportable 04/06/19 03:35 Pelger-Huet Anomaly Not Reportable 04/06/19 03:35 Liang Rods Not Reportable 04/06/19 03:35 Platelet Estimate Consistent w auto 04/06/19 03:35 Clumped Platelets Not Reportable 04/06/19 03:35 Plt Clumps, EDTA Not Reportable 04/06/19 03:35 Large Platelets Not Reportable 04/06/19 03:35 Giant Platelets Not Reportable 04/06/19 03:35 Platelet Satelliting Not Reportable 04/06/19 03:35 Plt Morphology Comment Not Reportable 04/06/19 03:35 RBC Morphology Not Reportable 04/06/19 03:35 Dimorphic RBCs Not Reportable 04/06/19 03:35 Polychromasia Not Reportable 04/06/19 03:35 Hypochromasia 1+ 04/06/19 03:35 Poikilocytosis Not Reportable 04/06/19 03:35 Anisocytosis 1+ 04/06/19 03:35 Microcytosis Not Reportable 04/06/19 03:35 Macrocytosis Not Reportable 04/06/19 03:35 Spherocytes Not Reportable 04/06/19 03:35 Pappenheimer Bodies Not Reportable 04/06/19 03:35 Sickle Cells Not Reportable 04/06/19 03:35 Target Cells Not Reportable 04/06/19 03:35 Tear Drop Cells Not Reportable 04/06/19 03:35 Ovalocytes Not Reportable 04/06/19 03:35 Helmet Cells Not Reportable 04/06/19 03:35 [place] Bodies Not Reportable 04/06/19 03:35 [place] Rings Not Reportable 04/06/19 03:35 [place] Cells Not Reportable 04/06/19 03:35 Bite Cells Not Reportable 04/06/19 03:35 Crenated Cell Not Reportable 04/06/19 03:35 Elliptocytes Not Reportable 04/06/19 03:35 Acanthocytes (Spur) Not Reportable 04/06/19 03:35 Rouleaux Not Reportable 04/06/19 03:35 Hemoglobin C Crystals Not Reportable 04/06/19 03:35 Schistocytes Not Reportable 04/06/19 03:35 Malaria parasites Not Reportable 04/06/19 03:35 [place] Bodies Not Reportable 04/06/19 03:35 Hem Pathologist Commnt No 04/06/19 03:35 PT 13.9 Sec. (12.2-14.9) 04/05/19 04:28 INR 1.08 (0.87-1.13) 04/05/19 04:28 APTT 27.4 Sec. (24.2-36.6) 04/05/19 04:28 Sodium 139 mmol/L (137-145) 04/06/19 03:35 Potassium 4.7 mmol/L (3.6-5.0) 04/06/19 03:35 Chloride 107.8 mmol/L (98-107) H 04/06/19 03:35 Carbon Dioxide 17 mmol/L (22-30) L 04/06/19 03:35 Anion Gap 19 mmol/L 04/06/19 03:35 BUN 44 mg/dL (9-20) H 04/06/19 03:35 Creatinine 1.7 mg/dL (0.8-1.5) H 04/06/19 03:35 Estimated GFR 38 ml/min 04/06/19 03:35 BUN/Creatinine Ratio 26 % 04/06/19 03:35 Glucose 129 mg/dL (75-100) H 04/06/19 03:35 POC Glucose 130 (70-105) H 04/07/19 11:36 Calcium 7.8 mg/dL (8.4-10.2) L 04/06/19 03:35 Magnesium 2.00 mg/dL (1.7-2.3) 04/05/19 04:28 Total Bilirubin 0.30 mg/dL (0.1-1.2) 04/05/19 04:28 Direct Bilirubin < 0.2 mg/dL (0-0.2) 04/05/19 04:28 Indirect Bilirubin 0.1 mg/dL 04/05/19 04:28 AST 16 units/L (5-40) 04/05/19 04:28 ALT 13 units/L (7-56) 04/05/19 04:28 Alkaline Phosphatase 52 units/L (35-129) 04/05/19 04:28 Troponin T 0.040 ng/mL (0.00-0.029) H 04/06/19 03:35 Total Protein 6.1 g/dL (6.3-8.2) L 04/05/19 04:28 Albumin 3.7 g/dL (3.9-5) L 04/05/19 04:28 Albumin/Globulin Ratio 1.5 % 04/05/19 04:28 Triglycerides 90 mg/dL (2-149) 04/05/19 04:28 Cholesterol 148 mg/dL (50-199) 04/05/19 04:28 LDL Cholesterol Direct 88 mg/dL (50-130) 04/05/19 04:28 HDL Cholesterol 59 mg/dL (40-59) 04/05/19 04:28 Cholesterol/HDL Ratio 2.50 % 04/05/19 04:28 Blood Type O POSITIVE 04/05/19 04:00 Antibody Screen Negative 04/05/19 04:00 Crossmatch See Detail 04/05/19 04:00 Active Medications - Current Medications Current Medications: Generic Name Dose Route Start Last Admin Trade Name Freq PRN Reason Stop Dose Admin Acetaminophen 650 mg 04/05/19 11:24 04/06/19 00:34 Tylenol PO 650 mg Q4H PRN Administration Pain MILD(1-3)/Fever >100.5/BRYAN Albuterol 2.5 mg 04/05/19 11:26 Proventil IH Q4HRT PRN Shortness Of Breath Arformoterol Tartrate 15 mcg 04/05/19 20:00 04/07/19 08:35 Brovana Nebu IH 15 mcg Q12HRT [facility] Administration Aspirin 81 mg 04/07/19 12:00 04/07/19 12:33 Halfprin Ec PO 81 mg QDAY [facility] Administration Atorvastatin Calcium 20 mg 04/05/19 22:00 04/06/19 22:22 Lipitor PO 20 mg QHS [facility] Administration Budesonide 0.5 mg 04/05/19 20:00 04/07/19 08:35 Pulmicort IH 0.5 mg Q12HRT [facility] Administration Clonidine HCl 0.2 mg 04/05/19 22:00 04/07/19 09:38 Catapres PO Not Given Q12HR [facility] Hydralazine HCl 100 mg 04/05/19 22:00 04/07/19 09:39 Apresoline PO 100 mg BID [facility] Administration Pantoprazole Sodium 80 mg/ 100 mls @ 10 mls/hr 04/05/19 14:21 04/07/19 05:43 Sodium Chloride IV 8 mg/hr DIRECT TERESA 10 mls/hr Administration 8 MG/HR Sodium Chloride 1,000 mls @ 100 mls/hr 04/07/19 09:00 04/07/19 09:44 Nacl 0.45% 1000 Ml IV 100 mls/hr DIRECT [facility] Administration Metoprolol Tartrate 25 mg 04/05/19 22:00 04/07/19 09:38 Metoprolol PO 25 mg BID [facility] Administration Montelukast Sodium 10 mg 04/05/19 22:00 04/06/19 22:22 Singulair PO 10 mg QHS [facility] Administration Ondansetron HCl 4 mg 04/05/19 11:24 04/05/19 20:43 Zofran IV 4 mg Q8H PRN Administration Nausea And Vomiting Sodium Chloride 10 ml 04/05/19 22:00 04/07/19 09:39 Sodium Chloride Flush Syringe 10 Ml IV 10 ml BID [facility] Administration Sodium Chloride 10 ml 04/05/19 11:24 Sodium Chloride Flush Syringe 10 Ml IV PRN PRN LINE FLUSH Tamsulosin HCl 0.4 mg 04/06/19 10:00 04/07/19 09:35 Flomax PO 0.4 mg QDAY [facility] Administration
[2019-04-07 15:55] LABS: Calcium 7.1 mg/dL (8.4-10.2)
[2019-04-07] MEDS ORDERED: POTASSIUM CHLORIDE 40 MEQ in SODIUM CHLORIDE 0.45% 500 ML IV SCH (16:30)
[2019-04-07 17:41] LABS: Creatinine,Urine 76.5 mg/dL (0.1-20.0)
[2019-04-07 18:11] LABS: Bilirubin,Urine NEG (Negative); Blood,Urine NEG (Negative); Color,Urine Straw (Yellow); Protein,Urine <15 mg/dL mg/dL (Negative); Urobilinogen,Urine < 2.0 mg/dL (<2.0); WBC,Urine < 1.0 /HPF (0.0-6.0)
[2019-04-07] MEDS: MONTELUKAST 10 MG TAB PO SCH (21:32)
[2019-04-08 04:52] LABS: Basophils # (Auto) 0.1 K/mm3 (0.0-0.1); Eosinophils # (Auto) 0.5 K/mm3 (0.0-0.4); Eosinophils % (Auto) 3.9 % (0.0-4.3); Hematocrit 21.2 % (35.5-45.6); Hemoglobin 7.1 gm/dl (11.8-15.2); Lymphocytes # (Auto) 2.6 K/mm3 (1.2-5.4); Lymphocytes % (Auto) 21.2 % (13.4-35.0); Mean Corpuscular HGB Conc 33 % (32-34); Mean Corpuscular Volume 87 fl (84-94); Monocytes # (Auto) 1.4 K/mm3 (0.0-0.8); Monocytes % (Auto) 11.3 % (0.0-7.3); Platelet Count 167 K/mm3 (140-440); Red Blood Count 2.42 M/mm3 (3.65-5.03); Red Cell Distribution Width 17.1 % (13.2-15.2)
[2019-04-08] MEDS: PANTOPRAZOLE 80 MG in SODIUM CHLORIDE 0.9% 100 ML IV SCH (04:55)
[2019-04-08 05:16] LABS: Calcium 7.5 mg/dL (8.4-10.2)
--- NOTE | 2019-04-08 07:35 | Progress Note ---
Assessment and Plan Assessment and plan: 84-year-old man who presents to the hospital with red bloody stools "Patient underwent EGD 10/2018 previously which showed duodenal ulcer, erosive gastritis and small hiatal hernia. Also underwent colonoscopy in 2017 which showed diverticulosis and a small polyp which was removed. acute lower GI bleed sp prbc, EGD and c scope were neg on 04/06, likely diverticular bleed had two episodes of bloody BM this am, hold asa, inform GI acute blood loss anemia sp 2 prbc, hg appears to be dropping again, give another unit today CARRIE due to vasomotor nephropathy -sp blood and IVF, renal consult appreciated, diuretics on hold, improving SIRS, without organ damage, noninfectious etiology History of heart disease, status post CABG for CAD, aortic stenosis status post mitral valve replacement.- systolic CHF EF 45% -Continue cardiac meds Hypertension Continue BP meds COPD therapeutic substitution for home meds, on advair , proair and singulair BPH cont flomax DVT prophylaxis SCDs in light of GI bleed Will watch another day, likely dc in am if Hg is stable, and GI bleed resolves case dw family all questions answered Far[place] [phone] [facility] [phone] History Interval history: Review of systems Constitutional: No fevers, no malaise, no joint pains CVS: No chest pain, no orthopnea, no pedal edema GI: 2 episodes of bloody bm today Respiratory: No shortness of breath, no wheezing, no coughing Hospitalist Physical - Physical exam Narrative exam: General.: Appears well, no distress, nontoxic HEENT: Moist mucous membranes, extraocular muscles intact, no lymphadenopathy Neck: supple Cardiac: S1-S2 heard Lungs: clear to auscultation bilaterally Abdomen: soft , nontender, nondistended, bowel sounds positive Extremities: no edema clubbing or cyanosis Skin: no rash or lesions Neurologic: no gross focal deficits Psych: calm, and cooperative - Constitutional Vitals: Temp Pulse Resp BP Pulse Ox 99.6 F 70 20 131/47 90 04/08/19 02:52 04/08/19 02:52 04/08/19 02:52 04/08/19 02:52 04/08/19 02:52 General appearance: Present: no acute distress Results - Labs CBC & Chem 7: 04/08/19 04:07 04/08/19 04:07 Labs: Laboratory Last Values WBC 12.2 K/mm3 (4.5-11.0) H 04/08/19 04:07 RBC 2.42 M/mm3 (3.65-5.03) L 04/08/19 04:07 Hgb 7.1 gm/dl (11.8-15.2) L 04/08/19 04:07 Hct 21.2 % (35.5-45.6) L 04/08/19 04:07 MCV 87 fl (84-94) 04/08/19 04:07 MCH 29 pg (28-32) 04/08/19 04:07 MCHC 33 % (32-34) 04/08/19 04:07 RDW 17.1 % (13.2-15.2) H 04/08/19 04:07 Plt Count 167 K/mm3 (140-440) 04/08/19 04:07 Lymph % (Auto) 21.2 % (13.4-35.0) 04/08/19 04:07 [place] % (Auto) 11.3 % (0.0-7.3) H 04/08/19 04:07 Eos % (Auto) 3.9 % (0.0-4.3) 04/08/19 04:07 Baso % (Auto) 1.0 % (0.0-1.8) 04/08/19 04:07 Lymph # 2.6 K/mm3 (1.2-5.4) 04/08/19 04:07 [place] # 1.4 K/mm3 (0.0-0.8) H 04/08/19 04:07 Eos # 0.5 K/mm3 (0.0-0.4) H 04/08/19 04:07 Baso # 0.1 K/mm3 (0.0-0.1) 04/08/19 04:07 Add Manual Diff Complete 04/06/19 03:35 Total Counted 100 04/06/19 03:35 Seg Neutrophils % 62.6 % (40.0-70.0) 04/08/19 04:07 Seg Neuts % (Manual) 81.0 % (40.0-70.0) H 04/06/19 03:35 Band Neutrophils % 0 % 04/06/19 03:35 Lymphocytes % (Manual) 16.0 % (13.4-35.0) 04/06/19 03:35 Reactive Lymphs % (Man) 0 % 04/06/19 03:35 Monocytes % (Manual) 3.0 % (0.0-7.3) 04/06/19 03:35 Eosinophils % (Manual) 0 % (0.0-4.3) 04/06/19 03:35 Basophils % (Manual) 0 % (0.0-1.8) 04/06/19 03:35 Metamyelocytes % 0 % 04/06/19 03:35 Myelocytes % 0 % 04/06/19 03:35 Promyelocytes % 0 % 04/06/19 03:35 Blast Cells % 0 % 04/06/19 03:35 Nucleated RBC % Not Reportable 04/06/19 03:35 Seg Neutrophils # 7.6 K/mm3 (1.8-7.7) 04/08/19 04:07 Seg Neutrophils # Man 10.5 K/mm3 (1.8-7.7) H 04/06/19 03:35 Band Neutrophils # 0.0 K/mm3 04/06/19 03:35 Lymphocytes # (Manual) 2.1 K/mm3 (1.2-5.4) 04/06/19 03:35 Abs React Lymphs (Man) 0.0 K/mm3 04/06/19 03:35 Monocytes # (Manual) 0.4 K/mm3 (0.0-0.8) 04/06/19 03:35 Eosinophils # (Manual) 0.0 K/mm3 (0.0-0.4) 04/06/19 03:35 Basophils # (Manual) 0.0 K/mm3 (0.0-0.1) 04/06/19 03:35 Metamyelocytes # 0.0 K/mm3 04/06/19 03:35 Myelocytes # 0.0 K/mm3 04/06/19 03:35 Promyelocytes # 0.0 K/mm3 04/06/19 03:35 Blast Cells # 0.0 K/mm3 04/06/19 03:35 WBC Morphology Not Reportable 04/06/19 03:35 Hypersegmented Neuts Not Reportable 04/06/19 03:35 Hyposegmented Neuts Not Reportable 04/06/19 03:35 Hypogranular Neuts Not Reportable 04/06/19 03:35 Smudge Cells Not Reportable 04/06/19 03:35 Toxic Granulation Not Reportable 04/06/19 03:35 Toxic Vacuolation Not Reportable 04/06/19 03:35 Dohle Bodies Not Reportable 04/06/19 03:35 Pelger-Huet Anomaly Not Reportable 04/06/19 03:35 Liang Rods Not Reportable 04/06/19 03:35 Platelet Estimate Consistent w auto 04/06/19 03:35 Clumped Platelets Not Reportable 04/06/19 03:35 Plt Clumps, EDTA Not Reportable 04/06/19 03:35 Large Platelets Not Reportable 04/06/19 03:35 Giant Platelets Not Reportable 04/06/19 03:35 Platelet Satelliting Not Reportable 04/06/19 03:35 Plt Morphology Comment Not Reportable 04/06/19 03:35 RBC Morphology Not Reportable 04/06/19 03:35 Dimorphic RBCs Not Reportable 04/06/19 03:35 Polychromasia Not Reportable 04/06/19 03:35 Hypochromasia 1+ 04/06/19 03:35 Poikilocytosis Not Reportable 04/06/19 03:35 Anisocytosis 1+ 04/06/19 03:35 Microcytosis Not Reportable 04/06/19 03:35 Macrocytosis Not Reportable 04/06/19 03:35 Spherocytes Not Reportable 04/06/19 03:35 Pappenheimer Bodies Not Reportable 04/06/19 03:35 Sickle Cells Not Reportable 04/06/19 03:35 Target Cells Not Reportable 04/06/19 03:35 Tear Drop Cells Not Reportable 04/06/19 03:35 Ovalocytes Not Reportable 04/06/19 03:35 Helmet Cells Not Reportable 04/06/19 03:35 [place] Bodies Not Reportable 04/06/19 03:35 [place] Rings Not Reportable 04/06/19 03:35 [place] Cells Not Reportable 04/06/19 03:35 Bite Cells Not Reportable 04/06/19 03:35 Crenated Cell Not Reportable 04/06/19 03:35 Elliptocytes Not Reportable 04/06/19 03:35 Acanthocytes (Spur) Not Reportable 04/06/19 03:35 Rouleaux Not Reportable 04/06/19 03:35 Hemoglobin C Crystals Not Reportable 04/06/19 03:35 Schistocytes Not Reportable 04/06/19 03:35 Malaria parasites Not Reportable 04/06/19 03:35 [place] Bodies Not Reportable 04/06/19 03:35 Hem Pathologist Commnt No 04/06/19 03:35 PT 13.9 Sec. (12.2-14.9) 04/05/19 04:28 INR 1.08 (0.87-1.13) 04/05/19 04:28 APTT 27.4 Sec. (24.2-36.6) 04/05/19 04:28 Sodium 141 mmol/L (137-145) 04/08/19 04:07 Potassium 3.8 mmol/L (3.6-5.0) 04/08/19 04:07 Chloride 106.2 mmol/L (98-107) 04/08/19 04:07 Carbon Dioxide 21 mmol/L (22-30) L 04/08/19 04:07 Anion Gap 18 mmol/L 04/08/19 04:07 BUN 26 mg/dL (9-20) H 04/08/19 04:07 Creatinine 1.2 mg/dL (0.8-1.5) 04/08/19 04:07 Estimated GFR 58 ml/min 04/08/19 04:07 BUN/Creatinine Ratio 22 % 04/08/19 04:07 Glucose 113 mg/dL (75-100) H 04/08/19 04:07 POC Glucose 115 (70-105) H 04/08/19 07:29 Calcium 7.5 mg/dL (8.4-10.2) L 04/08/19 04:07 Magnesium 1.80 mg/dL (1.7-2.3) 04/08/19 04:07 Total Bilirubin 0.30 mg/dL (0.1-1.2) 04/05/19 04:28 Direct Bilirubin < 0.2 mg/dL (0-0.2) 04/05/19 04:28 Indirect Bilirubin 0.1 mg/dL 04/05/19 04:28 AST 16 units/L (5-40) 04/05/19 04:28 ALT 13 units/L (7-56) 04/05/19 04:28 Alkaline Phosphatase 52 units/L (35-129) 04/05/19 04:28 Troponin T 0.040 ng/mL (0.00-0.029) H 04/06/19 03:35 Total Protein 6.1 g/dL (6.3-8.2) L 04/05/19 04:28 Albumin 3.7 g/dL (3.9-5) L 04/05/19 04:28 Albumin/Globulin Ratio 1.5 % 04/05/19 04:28 Triglycerides 90 mg/dL (2-149) 04/05/19 04:28 Cholesterol 148 mg/dL (50-199) 04/05/19 04:28 LDL Cholesterol Direct 88 mg/dL (50-130) 04/05/19 04:28 HDL Cholesterol 59 mg/dL (40-59) 04/05/19 04:28 Cholesterol/HDL Ratio 2.50 % 04/05/19 04:28 Urine Color Straw (Yellow) 04/07/19 Unknown Urine Turbidity Clear (Clear) 04/07/19 Unknown Urine pH 6.0 (5.0-7.0) 04/07/19 Unknown Ur Specific [place] 1.009 (1.003-1.030) 04/07/19 Unknown Urine Protein <15 mg/dl mg/dL (Negative) 04/07/19 Unknown Urine Glucose (UA) Neg mg/dL (Negative) 04/07/19 Unknown Urine Ketones Neg mg/dL (Negative) 04/07/19 Unknown Urine Blood Neg (Negative) 04/07/19 Unknown Urine Nitrite Neg (Negative) 04/07/19 Unknown Urine Bilirubin Neg (Negative) 04/07/19 Unknown Urine Urobilinogen < 2.0 mg/dL (<2.0) 04/07/19 Unknown Ur Leukocyte Esterase Neg (Negative) 04/07/19 Unknown Urine WBC (Auto) < 1.0 /HPF (0.0-6.0) 04/07/19 Unknown Urine RBC (Auto) 1.0 /HPF (0.0-6.0) 04/07/19 Unknown Urine Creatinine 76.5 mg/dL (0.1-20.0) H 04/07/19 Unknown Urine Sodium 30 mmol/L 04/07/19 Unknown Urine Total Protein 4 mg/dL (5-11.8) L 04/07/19 Unknown Blood Type O POSITIVE 04/05/19 04:00 Antibody Screen Negative 04/05/19 04:00 Crossmatch See Detail 04/05/19 04:00 Active Medications - Current Medications Current Medications: Generic Name Dose Route Start Last Admin Trade Name Freq PRN Reason Stop Dose Admin Acetaminophen 650 mg 04/05/19 11:24 04/06/19 00:34 Tylenol PO 650 mg Q4H PRN Administration Pain MILD(1-3)/Fever >100.5/BRYAN Albuterol 2.5 mg 04/05/19 11:26 Proventil IH Q4HRT PRN Shortness Of Breath Arformoterol Tartrate 15 mcg 04/05/19 20:00 04/07/19 22:37 Brovana Nebu IH 15 mcg Q12HRT TERESA Administration Aspirin 81 mg 04/07/19 12:00 04/07/19 12:33 Halfprin Ec PO 81 mg QDAY TERESA Administration Atorvastatin Calcium 20 mg 04/05/19 22:00 04/07/19 21:32 Lipitor PO 20 mg QHS TERESA Administration Budesonide 0.5 mg 04/05/19 20:00 04/07/19 22:37 Pulmicort IH 0.5 mg Q12HRT TERESA Administration Clonidine HCl 0.2 mg 04/05/19 22:00 04/07/19 21:33 Catapres PO Not Given Q12HR TERESA Hydralazine HCl 100 mg 04/05/19 22:00 04/07/19 21:32 Apresoline PO 100 mg BID TERESA Administration Pantoprazole Sodium 80 mg/ 100 mls @ 10 mls/hr 04/05/19 14:21 04/08/19 04:55 Sodium Chloride IV 8 mg/hr DIRECT TERESA 10 mls/hr Administration 8 MG/HR Sodium Chloride 1,000 mls @ 100 mls/hr 04/07/19 09:00 04/07/19 09:44 Nacl 0.45% 1000 Ml IV 100 mls/hr DIRECT TERESA Administration Metoprolol Tartrate 25 mg 04/05/19 22:00 04/07/19 21:33 Metoprolol PO 25 mg BID TERESA Administration Montelukast Sodium 10 mg 04/05/19 22:00 04/07/19 21:32 Singulair PO 10 mg QHS TERESA Administration Ondansetron HCl 4 mg 04/05/19 11:24 04/05/19 20:43 Zofran IV 4 mg Q8H PRN Administration Nausea And Vomiting Sodium Chloride 10 ml 04/05/19 22:00 04/07/19 21:33 Sodium Chloride Flush Syringe 10 Ml IV 10 ml BID TERESA Administration Sodium Chloride 10 ml 04/05/19 11:24 Sodium Chloride Flush Syringe 10 Ml IV PRN PRN LINE FLUSH Tamsulosin HCl 0.4 mg 04/06/19 10:00 04/07/19 09:35 Flomax PO 0.4 mg QDAY TERESA Administration
[2019-04-08] MEDS: ARFORMOTEROL 15 MCG/2 ML NEBU IH SCH ×2 (07:42→22:10)
[2019-04-08] MEDS: BUDESONIDE 0.5 MG/2 ML NEBU IH SCH ×2 (07:42→22:10)
--- NOTE | 2019-04-08 08:11 | Progress Note ---
Assessment and Plan - Patient Problems (1) Acute kidney injury (CARRIE) with acute tubular necrosis (ATN) Current Visit: Yes Status: Acute Plan to address problem: likely secondary to ischemic ATN in the setting of GI bleed/ blood loss anemia. cont IV NS at 100ml/hr, renal function improving. avoid nephrotoxins, NSAIDs, IV contrast. check UA, urine lytes to assess FeNA, check urine protein/cr ratio. will monitor lytes/renal parameters and make further recommendations. (2) GI bleeding Current Visit: Yes Status: Acute Plan to address problem: s/p EGD/Colonoscopy, which showed diverticulosis. s/p 2PRBC transfusion. follow GI recommendations. (3) Acute blood loss anemia Current Visit: No Status: Acute Plan to address problem: s/p 2PRBC transfusion (4) HTN (hypertension) Current Visit: Yes Status: Chronic Qualifiers: Hypertension type: essential hypertension Qualified Code(s): I10 - Essential (primary) hypertension Plan to address problem: BP controlled. monitor BP on current meds (5) NSTEMI (non-ST elevated myocardial infarction) Current Visit: No Status: Acute Plan to address problem: management as per cardiology Subjective Date of service: 04/08/19 Principal diagnosis: GI bleed Interval history: Pt awake aler, in no acute distress, son at bedside Objective - Vital Signs Vital signs: Vital Signs - 12hr 04/07/19 04/07/19 04/07/19 21:33 22:00 22:40 Temperature Pulse Rate 72 Pulse Rate [ 98 H Anterior Throughout] Pulse Rate [ 98 H Bilateral Bases ] Pulse Rate [ 98 H Bilateral Lower Lobe] Respiratory Rate Respiratory 16 Rate [Anterior Throughout] Respiratory 16 Rate [Bilateral Bases] Respiratory 16 Rate [Bilateral Lower Lobe] Blood Pressure 117/43 Blood Pressure [Right] O2 Sat by Pulse 91 Oximetry 04/08/19 04/08/19 04/08/19 00:47 02:18 02:52 Temperature 99.6 F Pulse Rate 67 71 70 Pulse Rate [ Anterior Throughout] Pulse Rate [ Bilateral Bases ] Pulse Rate [ Bilateral Lower Lobe] Respiratory 20 Rate Respiratory Rate [Anterior Throughout] Respiratory Rate [Bilateral Bases] Respiratory Rate [Bilateral Lower Lobe] Blood Pressure Blood Pressure 131/47 [Right] O2 Sat by Pulse 88 90 Oximetry 04/08/19 04/08/19 04/08/19 07:22 07:40 07:52 Temperature 98.9 F Pulse Rate 75 Pulse Rate [ 72 Anterior Throughout] Pulse Rate [ Bilateral Bases ] Pulse Rate [ 68 Bilateral Lower Lobe] Respiratory 18 Rate Respiratory 20 Rate [Anterior Throughout] Respiratory Rate [Bilateral Bases] Respiratory 18 Rate [Bilateral Lower Lobe] Blood Pressure 136/53 Blood Pressure [Right] O2 Sat by Pulse 91 96 Oximetry - General Appearance General appearance: well-developed, appears stated age, frail EENT: ATNC, PERRL, mucous membranes moist Neck: no JVD Respiratory: Present: Clear to Ascultation Cardiology: regular, S1S2 Gastrointestinal: normoactive bowel sounds Integumentary: no rash, other (no edema ) Neurologic: no focal deficit, alert and oriented x3, strength 5/5, CN 3-12 intact Psychiatric: mood/affect appropriate, cooperative - Lab 04/08/19 04:07 04/08/19 04:07 Most recent lab results Calcium 7.5 mg/dL (8.4-10.2) L 04/08/19 04:07 Magnesium 1.80 mg/dL (1.7-2.3) 04/08/19 04:07 Urine Creatinine 76.5 mg/dL (0.1-20.0) H 04/07/19 Unknown Urine Sodium 30 mmol/L 04/07/19 Unknown Urine Total Protein 4 mg/dL (5-11.8) L 04/07/19 Unknown Medications & Allergies - Medications Allergies/Adverse Reactions: Allergies No Known Allergies Allergy (Verified 11/11/18 08:08) Home Medications: Home Medications Medication Instructions Recorded Confirmed Last Taken Type cloNIDine [Catapres] 0.2 mg PO BID 07/04/18 01/26/19 01/25/19 History hydrALAZINE [Apresoline TAB] 100 mg PO BID tab 07/09/18 01/26/19 01/25/19 Rx AtorvaSTATin 10 mg PO QHS #30 tablet 01/30/19 Unknown Rx Metoprolol [Lopressor TAB] 25 mg PO BID #60 tablet 01/30/19 Unknown Rx levoFLOXacin [Levaquin] 750 mg PO QDAY #5 tablet 01/30/19 Unknown Rx Active Medications: Generic Name Dose Route Start Last Admin Trade Name Freq PRN Reason Stop Dose Admin Acetaminophen 650 mg 04/05/19 11:24 04/06/19 00:34 Tylenol PO 650 mg Q4H PRN Administration Pain MILD(1-3)/Fever >100.5/BRYAN Albuterol 2.5 mg 04/05/19 11:26 Proventil IH Q4HRT PRN Shortness Of Breath Arformoterol Tartrate 15 mcg 04/05/19 20:00 04/08/19 07:42 Brovana Nebu IH 15 mcg Q12HRT TERESA Administration Aspirin 81 mg 04/07/19 12:00 04/07/19 12:33 Halfprin Ec PO 81 mg QDAY TERESA Administration Atorvastatin Calcium 20 mg 04/05/19 22:00 04/07/19 21:32 Lipitor PO 20 mg QHS TERESA Administration Budesonide 0.5 mg 04/05/19 20:00 04/08/19 07:42 Pulmicort IH 0.5 mg Q12HRT TERESA Administration Clonidine HCl 0.2 mg 04/05/19 22:00 04/07/19 21:33 Catapres PO Not Given Q12HR TERESA Hydralazine HCl 100 mg 04/05/19 22:00 04/07/19 21:32 Apresoline PO 100 mg BID TERESA Administration Sodium Chloride 1,000 mls @ 100 mls/hr 04/07/19 09:00 04/07/19 09:44 Nacl 0.45% 1000 Ml IV 100 mls/hr DIRECT TERESA Administration Metoprolol Tartrate 25 mg 04/05/19 22:00 04/07/19 21:33 Metoprolol PO 25 mg BID TERESA Administration Montelukast Sodium 10 mg 04/05/19 22:00 04/07/19 21:32 Singulair PO 10 mg QHS TERESA Administration Ondansetron HCl 4 mg 04/05/19 11:24 04/05/19 20:43 Zofran IV 4 mg Q8H PRN Administration Nausea And Vomiting Pantoprazole Sodium 40 mg 04/08/19 10:00 Protonix PO QDAY TERESA Sodium Chloride 10 ml 04/05/19 22:00 04/07/19 21:33 Sodium Chloride Flush Syringe 10 Ml IV 10 ml BID TERESA Administration Sodium Chloride 10 ml 04/05/19 11:24 Sodium Chloride Flush Syringe 10 Ml IV PRN PRN LINE FLUSH Tamsulosin HCl 0.4 mg 04/06/19 10:00 04/07/19 09:35 Flomax PO 0.4 mg QDAY TERESA Administration
[2019-04-08] MEDS: SODIUM CHLORIDE 0.45% 1000 ML 1,000 ML IV SCH (08:27)
[2019-04-08] MEDS: PANTOPRAZOLE 40 MG TAB PO SCH (09:41)
[2019-04-08] MEDS: METOPROLOL TARTRATE 25 MG TAB PO SCH ×2 (09:41→22:38)
[2019-04-08] MEDS: hydrALAZINE 100 MG TAB PO SCH ×2 (09:41→22:38)
[2019-04-08] MEDS: TAMSULOSIN 0.4 MG CAP PO SCH (09:41)
[2019-04-08] MEDS: cloNIDine 0.2 MG TAB PO SCH ×2 (09:42→22:37)
[2019-04-08] MEDS ORDERED: SODIUM CHLORIDE 0.9% 500 ML 500 ML IV ONE ×2 (10:54→13:58)
[2019-04-08] MEDS: ASPIRIN EC 81 MG TAB PO SCH (11:18)
--- NOTE | 2019-04-08 13:55 | Gastroenterology Progress Note ---
Assessment and Plan GI bleed - recurrent bleeding overnight/today; vitals stable. will obtain RBC scan given renal insufficiency. if positive, consult IR for possible embolization. blood transfusion ordered and pending. trend labs and transfuse as needed to keep hgb > 8 Subjective Date of service: 04/08/19 Principal diagnosis: GI bleed Interval history: pt seen and examined; eating at the time of exam and denies abd pain. had multiple small to moderate amt of hematochezia episodes overnight and this morning with drop in H/H Objective - Constitutional Vitals: Temp Pulse Resp BP Pulse Ox 98.9 F 69 20 146/52 94 04/08/19 07:22 04/08/19 09:42 04/08/19 08:00 04/08/19 09:42 04/08/19 09:40 General appearance: no acute distress - Respiratory Respiratory effort: normal Respiratory: bilateral: CTA - Cardiovascular Rhythm: regular Heart Sounds: Present: S1 & S2 - Gastrointestinal General gastrointestinal: Present: soft, non-tender, non-distended - Labs CBC & Chem 7: 04/08/19 04:07 04/08/19 04:07 Labs: Laboratory Results - last 24 hr 04/07/19 04/07/19 04/07/19 15:06 17:02 21:00 WBC RBC Hgb Hct MCV MCH MCHC RDW Plt Count Lymph % (Auto) [place] % (Auto) Eos % (Auto) Baso % (Auto) Lymph # [place] # Eos # Baso # Seg Neutrophils % Seg Neutrophils # Sodium 138 Potassium 3.4 L D Chloride 104.2 Carbon Dioxide 23 Anion Gap 14 BUN 29 H Creatinine 1.5 Estimated GFR 44 BUN/Creatinine Ratio 19 Glucose 111 H POC Glucose 126 H 131 H Calcium 7.1 L Magnesium Urine Color Urine Turbidity Urine pH Ur Specific [place] Urine Protein Urine Glucose (UA) Urine Ketones Urine Blood Urine Nitrite Urine Bilirubin Urine Urobilinogen Ur Leukocyte Esterase Urine WBC (Auto) Urine RBC (Auto) Urine Creatinine Urine Sodium Urine Total Protein Blood Type Antibody Screen Crossmatch 04/07/19 04/07/19 04/08/19 Unknown Unknown 04:07 WBC RBC Hgb Hct MCV MCH MCHC RDW Plt Count Lymph % (Auto) [place] % (Auto) Eos % (Auto) Baso % (Auto) Lymph # [place] # Eos # Baso # Seg Neutrophils % Seg Neutrophils # Sodium 141 Potassium 3.8 Chloride 106.2 Carbon Dioxide 21 L Anion Gap 18 BUN 26 H Creatinine 1.2 Estimated GFR 58 BUN/Creatinine Ratio 22 Glucose 113 H POC Glucose Calcium 7.5 L Magnesium 1.80 Urine Color Straw Urine Turbidity Clear Urine pH 6.0 Ur Specific [place] 1.009 Urine Protein <15 mg/dl Urine Glucose (UA) Neg Urine Ketones Neg Urine Blood Neg Urine Nitrite Neg Urine Bilirubin Neg Urine Urobilinogen < 2.0 Ur Leukocyte Esterase Neg Urine WBC (Auto) < 1.0 Urine RBC (Auto) 1.0 Urine Creatinine 76.5 H Urine Sodium 30 Urine Total Protein 4 L Blood Type Antibody Screen Crossmatch 04/08/19 04/08/19 04/08/19 04:07 07:29 11:35 WBC 12.2 H RBC 2.42 L Hgb 7.1 L Hct 21.2 L MCV 87 MCH 29 MCHC 33 RDW 17.1 H Plt Count 167 Lymph % (Auto) 21.2 [place] % (Auto) 11.3 H Eos % (Auto) 3.9 Baso % (Auto) 1.0 Lymph # 2.6 [place] # 1.4 H Eos # 0.5 H Baso # 0.1 Seg Neutrophils % 62.6 Seg Neutrophils # 7.6 Sodium Potassium Chloride Carbon Dioxide Anion Gap BUN Creatinine Estimated GFR BUN/Creatinine Ratio Glucose POC Glucose 115 H 172 H Calcium Magnesium Urine Color Urine Turbidity Urine pH Ur Specific [place] Urine Protein Urine Glucose (UA) Urine Ketones Urine Blood Urine Nitrite Urine Bilirubin Urine Urobilinogen Ur Leukocyte Esterase Urine WBC (Auto) Urine RBC (Auto) Urine Creatinine Urine Sodium Urine Total Protein Blood Type Antibody Screen Crossmatch 04/08/19 12:23 WBC RBC Hgb Hct MCV MCH MCHC RDW Plt Count Lymph % (Auto) [place] % (Auto) Eos % (Auto) Baso % (Auto) Lymph # [place] # Eos # Baso # Seg Neutrophils % Seg Neutrophils # Sodium Potassium Chloride Carbon Dioxide Anion Gap BUN Creatinine Estimated GFR BUN/Creatinine Ratio Glucose POC Glucose Calcium Magnesium Urine Color Urine Turbidity Urine pH Ur Specific [place] Urine Protein Urine Glucose (UA) Urine Ketones Urine Blood Urine Nitrite Urine Bilirubin Urine Urobilinogen Ur Leukocyte Esterase Urine WBC (Auto) Urine RBC (Auto) Urine Creatinine Urine Sodium Urine Total Protein Blood Type O POSITIVE Antibody Screen Negative Crossmatch See Detail
[2019-04-08] MEDS: ACETAMINOPHEN 325 MG TAB PO PRN (16:02)
[2019-04-08] MEDS: MONTELUKAST 10 MG TAB PO SCH (22:38)
[2019-04-09 05:27] LABS: BUN/Creatinine Ratio 18; Blood Urea Nitrogen 18 mg/dL (9-20); Calcium 7.5 mg/dL (8.4-10.2); Hemolysis Index 23
[2019-04-09] MEDS: BUDESONIDE 0.5 MG/2 ML NEBU IH SCH ×2 (09:05→21:51)
[2019-04-09] MEDS: ARFORMOTEROL 15 MCG/2 ML NEBU IH SCH ×2 (09:05→21:51)
[2019-04-09 09:28] LABS: Basophils # (Auto) 0.1 K/mm3 (0.0-0.1); Basophils % (Auto) 1.3 % (0.0-1.8); Eosinophils # (Auto) 0.6 K/mm3 (0.0-0.4); Hematocrit 24.6 % (35.5-45.6); Hemoglobin 8.2 gm/dl (11.8-15.2); Lymphocytes # (Auto) 2.3 K/mm3 (1.2-5.4); Lymphocytes % (Auto) 19.5 % (13.4-35.0); Mean Corpuscular HGB Conc 33 % (32-34); Mean Corpuscular Volume 89 fl (84-94); Monocytes # (Auto) 0.9 K/mm3 (0.0-0.8); Monocytes % (Auto) 7.6 % (0.0-7.3); Platelet Count 208 K/mm3 (140-440); Red Blood Count 2.76 M/mm3 (3.65-5.03); Red Cell Distribution Width 15.8 % (13.2-15.2)
[2019-04-09] MEDS: TAMSULOSIN 0.4 MG CAP PO SCH (09:58)
[2019-04-09] MEDS: PANTOPRAZOLE 40 MG TAB PO SCH (09:58)
[2019-04-09] MEDS: hydrALAZINE 100 MG TAB PO SCH ×2 (09:58→23:06)
[2019-04-09] MEDS: cloNIDine 0.2 MG TAB PO SCH ×2 (09:59→23:06)
[2019-04-09] MEDS: METOPROLOL TARTRATE 25 MG TAB PO SCH ×2 (09:59→22:05)
--- NOTE | 2019-04-09 10:33 | Progress Note ---
Assessment and Plan Currently stable cardiac status. Pt noted to have minimally elevated troponins which appear nonspecific at this time. Ok to hold ASA and Plavix in setting of current GI bleed. Follow GI recs. The patient has been seen in conjunction with Dr. Soler who agrees with the assessment and plan of care. - Patient Problems (1) GI bleeding Current Visit: Yes Status: Acute (2) Anemia Current Visit: Yes Status: Acute (3) CAD (coronary artery disease) Current Visit: Yes Status: Chronic Qualifiers: Coronary Disease-Associated Artery/Lesion type: [place] artery [place] vs. transplanted heart: [place] heart (4) History of coronary artery bypass graft Current Visit: Yes Status: Chronic (5) S/P mitral valve repair Current Visit: Yes Status: Chronic (6) Elevated troponin Current Visit: Yes Status: Acute (7) HTN (hypertension) Current Visit: Yes Status: Chronic Qualifiers: Hypertension type: essential hypertension Qualified Code(s): I10 - Essential (primary) hypertension (8) HLD (hyperlipidemia) Current Visit: Yes Status: Chronic Qualifiers: Hyperlipidemia type: mixed hyperlipidemia Qualified Code(s): E78.2 - Mixed hyperlipidemia (9) Carotid stenosis Current Visit: Yes Status: Chronic (10) Moderate tricuspid regurgitation Current Visit: Yes Status: Chronic (11) Right bundle branch block Current Visit: Yes Status: Chronic Subjective Date of service: 04/09/19 Principal diagnosis: GI bleed Interval history: pt resting in bed, no current complaints. in SR. Objective Last Vital Signs Temp 98.7 F 04/09/19 07:54 Pulse 82 04/09/19 09:06 Resp 18 04/09/19 09:06 BP 155/53 04/09/19 07:54 Pulse Ox 95 04/09/19 09:07 - Physical Examination General: No Apparent Distress HEENT: Positive: PERRL, Normocephaly, Mucus Membranes Moist Neck: Positive: neck supple Cardiac: Positive: Reg Rate and Rhythm, S1/S2 Lungs: Positive: Decreased Breath Sounds Neuro: Positive: Grossly Intact Abdomen: Negative: Tender Skin: Negative: Rash Musculoskeletal: No Pain Extremities: Absent: edema - Labs and Meds CBC 04/09/19 Range/Units 09:03 WBC 11.6 H (4.5-11.0) K/mm3 RBC 2.76 L (3.65-5.03) M/mm3 Hgb 8.2 L (11.8-15.2) gm/dl Hct 24.6 L (35.5-45.6) % Plt Count 208 (140-440) K/mm3 Lymph # 2.3 (1.2-5.4) K/mm3 [place] # 0.9 H (0.0-0.8) K/mm3 Eos # 0.6 H (0.0-0.4) K/mm3 Baso # 0.1 (0.0-0.1) K/mm3 Comprehensive Metabolic Panel 04/09/19 Range/Units 04:38 Sodium 140 (137-145) mmol/L Potassium 4.1 (3.6-5.0) mmol/L Chloride 108.8 H (98-107) mmol/L Carbon Dioxide 21 L (22-30) mmol/L BUN 18 (9-20) mg/dL Creatinine 1.0 (0.8-1.5) mg/dL Glucose 106 H (75-100) mg/dL Calcium 7.5 L (8.4-10.2) mg/dL - Imaging and Cardiology EKG: report reviewed, image reviewed Echo: report reviewed ( 11/2018 showed EF 40-45%, mild pulmonary htn, moderate TR and calcified aortic & mitral valves with [id number] stenosis. ) - EKG Sinus rhythms and dysrhythmias: sinus rhythm AV and intraventricular conduction: right bundle branch block
--- NOTE | 2019-04-09 11:09 | Progress Note ---
Assessment and Plan - Patient Problems (1) Gastrointestinal bleeding Current Visit: Yes Status: Acute Plan to address problem: For bleeding scan today per GI. (2) Acute kidney injury (CARRIE) with acute tubular necrosis (ATN) Current Visit: Yes Status: Acute Plan to address problem: Kidney function has improved. Follow-up electrolytes and renal function (3) Acute posthemorrhagic anemia Current Visit: Yes Status: Acute Plan to address problem: Follow-up hemoglobin and transfuse per primary attending (4) HTN (hypertension) Current Visit: Yes Status: Chronic Qualifiers: Hypertension type: essential hypertension Qualified Code(s): I10 - Essential (primary) hypertension Plan to address problem: Follow-up blood pressure on current medications Subjective Date of service: 04/09/19 Principal diagnosis: GI bleed Interval history: Patient seen lying in bed. He has no new complaints. Still having bloody stools. Objective - Exam Narrative Exam: Eld[place] male lying in bed in no acute distress HEENT: NCAT, pink oral mucous membrane Neck: Supple, no venous distention CVS: S1S2 RRR with no murmur, rub or gallop Chest: Clear to auscultation Abdomen: Protuberant, soft, nontender, no organomegaly, bowel sounds are present Extremities: No edema Neuro: Awake, alert no focal deficits - Vital Signs Vital signs: Vital Signs - 12hr 04/09/19 04/09/19 04/09/19 00:00 02:04 07:54 Temperature 98.2 F 98.7 F Pulse Rate 77 67 64 Pulse Rate [ Anterior Throughout] Pulse Rate [ Bilateral Lower Lobe] Pulse Rate [ Left Radial] Respiratory 18 18 Rate Respiratory Rate [Anterior Throughout] Respiratory Rate [Bilateral Lower Lobe] Blood Pressure 128/56 155/53 O2 Sat by Pulse 94 95 Oximetry 04/09/19 04/09/19 04/09/19 08:00 09:06 09:07 Temperature Pulse Rate 78 Pulse Rate [ 80 Anterior Throughout] Pulse Rate [ 82 Bilateral Lower Lobe] Pulse Rate [ 78 Left Radial] Respiratory 18 Rate Respiratory 18 Rate [Anterior Throughout] Respiratory 18 Rate [Bilateral Lower Lobe] Blood Pressure O2 Sat by Pulse 95 95 Oximetry - Lab 04/09/19 09:03 04/09/19 04:38 Most recent lab results Calcium 7.5 mg/dL (8.4-10.2) L 04/09/19 04:38 Magnesium 1.80 mg/dL (1.7-2.3) 04/08/19 04:07 Urine Creatinine 76.5 mg/dL (0.1-20.0) H 04/07/19 Unknown Urine Sodium 30 mmol/L 04/07/19 Unknown Urine Total Protein 4 mg/dL (5-11.8) L 04/07/19 Unknown Medications & Allergies - Medications Allergies/Adverse Reactions: Allergies No Known Allergies Allergy (Verified 11/11/18 08:08) Home Medications: Home Medications Medication Instructions Recorded Confirmed Last Taken Type cloNIDine [Catapres] 0.2 mg PO BID 07/04/18 01/26/19 01/25/19 History hydrALAZINE [Apresoline TAB] 100 mg PO BID tab 07/09/18 01/26/19 01/25/19 Rx AtorvaSTATin 10 mg PO QHS #30 tablet 01/30/19 Unknown Rx Metoprolol [Lopressor TAB] 25 mg PO BID #60 tablet 01/30/19 Unknown Rx levoFLOXacin [Levaquin] 750 mg PO QDAY #5 tablet 01/30/19 Unknown Rx Active Medications: Generic Name Dose Route Start Last Admin Trade Name Freq PRN Reason Stop Dose Admin Acetaminophen 650 mg 04/05/19 11:24 04/08/19 16:02 Tylenol PO 650 mg Q4H PRN Administration Pain MILD(1-3)/Fever >100.5/BRYAN Albuterol 2.5 mg 04/05/19 11:26 Proventil IH Q4HRT PRN Shortness Of Breath Arformoterol Tartrate 15 mcg 04/05/19 20:00 04/09/19 09:05 Brovana Nebu IH 15 mcg Q12HRT TERESA Administration Atorvastatin Calcium 20 mg 04/05/19 22:00 04/08/19 22:38 Lipitor PO 20 mg QHS TERESA Administration Budesonide 0.5 mg 04/05/19 20:00 04/09/19 09:05 Pulmicort IH 0.5 mg Q12HRT TERESA Administration Clonidine HCl 0.2 mg 04/05/19 22:00 04/09/19 09:59 Catapres PO 0.2 mg Q12HR TERESA Administration Hydralazine HCl 100 mg 04/05/19 22:00 04/09/19 09:58 Apresoline PO 100 mg BID TERESA Administration Metoprolol Tartrate 25 mg 04/05/19 22:00 04/09/19 09:59 Metoprolol PO 25 mg BID TERESA Administration Montelukast Sodium 10 mg 04/05/19 22:00 04/08/19 22:38 Singulair PO 10 mg QHS TERESA Administration Ondansetron HCl 4 mg 04/05/19 11:24 04/05/19 20:43 Zofran IV 4 mg Q8H PRN Administration Nausea And Vomiting Pantoprazole Sodium 40 mg 04/08/19 10:00 04/09/19 09:58 Protonix PO 40 mg QDAY TERESA Administration Sodium Chloride 10 ml 04/05/19 22:00 04/09/19 09:59 Sodium Chloride Flush Syringe 10 Ml IV 10 ml BID TERESA Administration Sodium Chloride 10 ml 04/05/19 11:24 Sodium Chloride Flush Syringe 10 Ml IV PRN PRN LINE FLUSH Tamsulosin HCl 0.4 mg 04/06/19 10:00 04/09/19 09:58 Flomax PO 0.4 mg QDAY TERESA Administration
--- NOTE | 2019-04-09 11:09 | Progress Note ---
Assessment and Plan Assessment and plan: 84-year-old man who presents to the hospital with red bloody stools "Patient underwent EGD 10/2018 previously which showed duodenal ulcer, erosive gastritis and small hiatal hernia. Also underwent colonoscopy in 2017 which showed diverticulosis and a small polyp which was removed. acute lower GI bleed sp prbc, EGD and c scope were neg on 04/06, likely diverticular bleed , hold asa, hold indocin -GI input from 04/08 appreciated, "will obtain RBC scan given renal insufficiency. if positive, consult IR for possible embolization" -RBC scan still pending acute blood loss anemia sp 3 prbc, improved and stable CARRIE due to vasomotor nephropathy -sp blood and IVF, renal consult appreciated, diuretics on hold, improving SIRS, without organ damage, noninfectious etiology History of heart disease, status post CABG for CAD, aortic stenosis status post mitral valve replacement.- systolic CHF EF 45% -Continue cardiac meds Hypertension Continue BP meds COPD therapeutic substitution for home meds, on advair , proair and singulair BPH cont flomax DVT prophylaxis SCDs in light of GI bleed Preventative health counseling performed for 17 minutes Will watch another day, likely dc in am if Hg is stable, and GI bleed resolves case dw family all questions answered [facility] [phone] [facility] [phone] History Interval history: Review of systems Constitutional: No fevers, no malaise, no joint pains CVS: No chest pain, no orthopnea, no pedal edema GI: Denies bloody BMs today Respiratory: No shortness of breath, no wheezing, no coughing Hospitalist Physical - Physical exam Narrative exam: General.: Appears well, no distress, nontoxic HEENT: Moist mucous membranes, extraocular muscles intact, no lymphadenopathy Neck: supple Cardiac: S1-S2 heard Lungs: clear to auscultation bilaterally Abdomen: soft , nontender, nondistended, bowel sounds positive Extremities: no edema clubbing or cyanosis Skin: no rash or lesions Neurologic: no gross focal deficits Psych: calm, and cooperative - Constitutional Vitals: Temp Pulse Resp BP Pulse Ox 98.7 F 82 18 155/53 95 04/09/19 07:54 04/09/19 09:06 04/09/19 09:06 04/09/19 07:54 04/09/19 09:07 General appearance: Present: no acute distress Results - Labs CBC & Chem 7: 04/09/19 09:03 04/09/19 04:38 Labs: Laboratory Last Values WBC 11.6 K/mm3 (4.5-11.0) H 04/09/19 09:03 RBC 2.76 M/mm3 (3.65-5.03) L 04/09/19 09:03 Hgb 8.2 gm/dl (11.8-15.2) L 04/09/19 09:03 Hct 24.6 % (35.5-45.6) L 04/09/19 09:03 MCV 89 fl (84-94) 04/09/19 09:03 MCH 30 pg (28-32) 04/09/19 09:03 MCHC 33 % (32-34) 04/09/19 09:03 RDW 15.8 % (13.2-15.2) H 04/09/19 09:03 Plt Count 208 K/mm3 (140-440) 04/09/19 09:03 Lymph % (Auto) 19.5 % (13.4-35.0) 04/09/19 09:03 [place] % (Auto) 7.6 % (0.0-7.3) H 04/09/19 09:03 Eos % (Auto) 5.0 % (0.0-4.3) H 04/09/19 09:03 Baso % (Auto) 1.3 % (0.0-1.8) 04/09/19 09:03 Lymph # 2.3 K/mm3 (1.2-5.4) 04/09/19 09:03 [place] # 0.9 K/mm3 (0.0-0.8) H 04/09/19 09:03 Eos # 0.6 K/mm3 (0.0-0.4) H 04/09/19 09:03 Baso # 0.1 K/mm3 (0.0-0.1) 04/09/19 09:03 Add Manual Diff Complete 04/06/19 03:35 Total Counted 100 04/06/19 03:35 Seg Neutrophils % 66.6 % (40.0-70.0) 04/09/19 09:03 Seg Neuts % (Manual) 81.0 % (40.0-70.0) H 04/06/19 03:35 Band Neutrophils % 0 % 04/06/19 03:35 Lymphocytes % (Manual) 16.0 % (13.4-35.0) 04/06/19 03:35 Reactive Lymphs % (Man) 0 % 04/06/19 03:35 Monocytes % (Manual) 3.0 % (0.0-7.3) 04/06/19 03:35 Eosinophils % (Manual) 0 % (0.0-4.3) 04/06/19 03:35 Basophils % (Manual) 0 % (0.0-1.8) 04/06/19 03:35 Metamyelocytes % 0 % 04/06/19 03:35 Myelocytes % 0 % 04/06/19 03:35 Promyelocytes % 0 % 04/06/19 03:35 Blast Cells % 0 % 04/06/19 03:35 Nucleated RBC % Not Reportable 04/06/19 03:35 Seg Neutrophils # 7.7 K/mm3 (1.8-7.7) 04/09/19 09:03 Seg Neutrophils # Man 10.5 K/mm3 (1.8-7.7) H 04/06/19 03:35 Band Neutrophils # 0.0 K/mm3 04/06/19 03:35 Lymphocytes # (Manual) 2.1 K/mm3 (1.2-5.4) 04/06/19 03:35 Abs React Lymphs (Man) 0.0 K/mm3 04/06/19 03:35 Monocytes # (Manual) 0.4 K/mm3 (0.0-0.8) 04/06/19 03:35 Eosinophils # (Manual) 0.0 K/mm3 (0.0-0.4) 04/06/19 03:35 Basophils # (Manual) 0.0 K/mm3 (0.0-0.1) 04/06/19 03:35 Metamyelocytes # 0.0 K/mm3 04/06/19 03:35 Myelocytes # 0.0 K/mm3 04/06/19 03:35 Promyelocytes # 0.0 K/mm3 04/06/19 03:35 Blast Cells # 0.0 K/mm3 04/06/19 03:35 WBC Morphology Not Reportable 04/06/19 03:35 Hypersegmented Neuts Not Reportable 04/06/19 03:35 Hyposegmented Neuts Not Reportable 04/06/19 03:35 Hypogranular Neuts Not Reportable 04/06/19 03:35 Smudge Cells Not Reportable 04/06/19 03:35 Toxic Granulation Not Reportable 04/06/19 03:35 Toxic Vacuolation Not Reportable 04/06/19 03:35 Dohle Bodies Not Reportable 04/06/19 03:35 Pelger-Huet Anomaly Not Reportable 04/06/19 03:35 Liang Rods Not Reportable 04/06/19 03:35 Platelet Estimate Consistent w auto 04/06/19 03:35 Clumped Platelets Not Reportable 04/06/19 03:35 Plt Clumps, EDTA Not Reportable 04/06/19 03:35 Large Platelets Not Reportable 04/06/19 03:35 Giant Platelets Not Reportable 04/06/19 03:35 Platelet Satelliting Not Reportable 04/06/19 03:35 Plt Morphology Comment Not Reportable 04/06/19 03:35 RBC Morphology Not Reportable 04/06/19 03:35 Dimorphic RBCs Not Reportable 04/06/19 03:35 Polychromasia Not Reportable 04/06/19 03:35 Hypochromasia 1+ 04/06/19 03:35 Poikilocytosis Not Reportable 04/06/19 03:35 Anisocytosis 1+ 04/06/19 03:35 Microcytosis Not Reportable 04/06/19 03:35 Macrocytosis Not Reportable 04/06/19 03:35 Spherocytes Not Reportable 04/06/19 03:35 Pappenheimer Bodies Not Reportable 04/06/19 03:35 Sickle Cells Not Reportable 04/06/19 03:35 Target Cells Not Reportable 04/06/19 03:35 Tear Drop Cells Not Reportable 04/06/19 03:35 Ovalocytes Not Reportable 04/06/19 03:35 Helmet Cells Not Reportable 04/06/19 03:35 Miranda-Hilger Bodies Not Reportable 04/06/19 03:35 [place]ville Rings Not Reportable 04/06/19 03:35 [place] Cells Not Reportable 04/06/19 03:35 Bite Cells Not Reportable 04/06/19 03:35 Crenated Cell Not Reportable 04/06/19 03:35 Elliptocytes Not Reportable 04/06/19 03:35 Acanthocytes (Spur) Not Reportable 04/06/19 03:35 Rouleaux Not Reportable 04/06/19 03:35 Hemoglobin C Crystals Not Reportable 04/06/19 03:35 Schistocytes Not Reportable 04/06/19 03:35 Malaria parasites Not Reportable 04/06/19 03:35 Fuad Bodies Not Reportable 04/06/19 03:35 Hem Pathologist Commnt No 04/06/19 03:35 PT 13.9 Sec. (12.2-14.9) 04/05/19 04:28 INR 1.08 (0.87-1.13) 04/05/19 04:28 APTT 27.4 Sec. (24.2-36.6) 04/05/19 04:28 Sodium 140 mmol/L (137-145) 04/09/19 04:38 Potassium 4.1 mmol/L (3.6-5.0) 04/09/19 04:38 Chloride 108.8 mmol/L (98-107) H 04/09/19 04:38 Carbon Dioxide 21 mmol/L (22-30) L 04/09/19 04:38 Anion Gap 14 mmol/L 04/09/19 04:38 BUN 18 mg/dL (9-20) 04/09/19 04:38 Creatinine 1.0 mg/dL (0.8-1.5) 04/09/19 04:38 Estimated GFR > 60 ml/min 04/09/19 04:38 BUN/Creatinine Ratio 18 % 04/09/19 04:38 Glucose 106 mg/dL (75-100) H 04/09/19 04:38 POC Glucose 164 (70-105) H 04/08/19 22:48 Calcium 7.5 mg/dL (8.4-10.2) L 04/09/19 04:38 Magnesium 1.80 mg/dL (1.7-2.3) 04/08/19 04:07 Total Bilirubin 0.30 mg/dL (0.1-1.2) 04/05/19 04:28 Direct Bilirubin < 0.2 mg/dL (0-0.2) 04/05/19 04:28 Indirect Bilirubin 0.1 mg/dL 04/05/19 04:28 AST 16 units/L (5-40) 04/05/19 04:28 ALT 13 units/L (7-56) 04/05/19 04:28 Alkaline Phosphatase 52 units/L (35-129) 04/05/19 04:28 Troponin T 0.040 ng/mL (0.00-0.029) H 04/06/19 03:35 Total Protein 6.1 g/dL (6.3-8.2) L 04/05/19 04:28 Albumin 3.7 g/dL (3.9-5) L 04/05/19 04:28 Albumin/Globulin Ratio 1.5 % 04/05/19 04:28 Triglycerides 90 mg/dL (2-149) 04/05/19 04:28 Cholesterol 148 mg/dL (50-199) 04/05/19 04:28 LDL Cholesterol Direct 88 mg/dL (50-130) 04/05/19 04:28 HDL Cholesterol 59 mg/dL (40-59) 04/05/19 04:28 Cholesterol/HDL Ratio 2.50 % 04/05/19 04:28 Urine Color Straw (Yellow) 04/07/19 Unknown Urine Turbidity Clear (Clear) 04/07/19 Unknown Urine pH 6.0 (5.0-7.0) 04/07/19 Unknown Ur Specific [place] 1.009 (1.003-1.030) 04/07/19 Unknown Urine Protein <15 mg/dl mg/dL (Negative) 04/07/19 Unknown Urine Glucose (UA) Neg mg/dL (Negative) 04/07/19 Unknown Urine Ketones Neg mg/dL (Negative) 04/07/19 Unknown Urine Blood Neg (Negative) 04/07/19 Unknown Urine Nitrite Neg (Negative) 04/07/19 Unknown Urine Bilirubin Neg (Negative) 04/07/19 Unknown Urine Urobilinogen < 2.0 mg/dL (<2.0) 04/07/19 Unknown Ur Leukocyte Esterase Neg (Negative) 04/07/19 Unknown Urine WBC (Auto) < 1.0 /HPF (0.0-6.0) 04/07/19 Unknown Urine RBC (Auto) 1.0 /HPF (0.0-6.0) 04/07/19 Unknown Urine Creatinine 76.5 mg/dL (0.1-20.0) H 04/07/19 Unknown Urine Sodium 30 mmol/L 04/07/19 Unknown Urine Total Protein 4 mg/dL (5-11.8) L 04/07/19 Unknown Blood Type O POSITIVE 04/08/19 12:23 Antibody Screen Negative 04/08/19 12:23 Crossmatch See Detail 04/08/19 12:23 Active Medications - Current Medications Current Medications: Generic Name Dose Route Start Last Admin Trade Name Freq PRN Reason Stop Dose Admin Acetaminophen 650 mg 04/05/19 11:24 04/08/19 16:02 Tylenol PO 650 mg Q4H PRN Administration Pain MILD(1-3)/Fever >100.5/BRYAN Albuterol 2.5 mg 04/05/19 11:26 Proventil IH Q4HRT PRN Shortness Of Breath Arformoterol Tartrate 15 mcg 04/05/19 20:00 04/09/19 09:05 Brovana Nebu IH 15 mcg Q12HRT TERESA Administration Atorvastatin Calcium 20 mg 04/05/19 22:00 04/08/19 22:38 Lipitor PO 20 mg QHS TERESA Administration Budesonide 0.5 mg 04/05/19 20:00 04/09/19 09:05 Pulmicort IH 0.5 mg Q12HRT TERESA Administration Clonidine HCl 0.2 mg 04/05/19 22:00 04/09/19 09:59 Catapres PO 0.2 mg Q12HR TERESA Administration Hydralazine HCl 100 mg 04/05/19 22:00 04/09/19 09:58 Apresoline PO 100 mg BID TERESA Administration Metoprolol Tartrate 25 mg 04/05/19 22:00 04/09/19 09:59 Metoprolol PO 25 mg BID TERESA Administration Montelukast Sodium 10 mg 04/05/19 22:00 04/08/19 22:38 Singulair PO 10 mg QHS TERESA Administration Ondansetron HCl 4 mg 04/05/19 11:24 04/05/19 20:43 Zofran IV 4 mg Q8H PRN Administration Nausea And Vomiting Pantoprazole Sodium 40 mg 04/08/19 10:00 04/09/19 09:58 Protonix PO 40 mg QDAY TERESA Administration Sodium Chloride 10 ml 04/05/19 22:00 04/09/19 09:59 Sodium Chloride Flush Syringe 10 Ml IV 10 ml BID TERESA Administration Sodium Chloride 10 ml 04/05/19 11:24 Sodium Chloride Flush Syringe 10 Ml IV PRN PRN LINE FLUSH Tamsulosin HCl 0.4 mg 04/06/19 10:00 04/09/19 09:58 Flomax PO 0.4 mg QDAY TERESA Administration
--- NOTE | 2019-04-09 11:59 | Gastroenterology Progress Note ---
<MARGE FINNEY - Last Filed: 04/09/19 12:01> Assessment and Plan 1.GI bleed -H/H 8.2/27.4- appropriate rise s/p blood transfusion yesterday -continue to monitor H/H and transfuse as need to keep hgb > 8 -no active signs of bleeding overnight or this am -EGD 10/2018 with small duodenal ulcer and erosive esophagitis ( reported last colonoscopy in 2016, tics, polyp removed ) -s/p repeat EGD/colonoscopy 04/06/19 that revealed normal upper endoscopy and Diverticulosis throughout the colon -etiology-likely diverticular -bleeding scan pending for today, if positive consult IR for possible embolization -continue PPI and supportive care -okay to resume ASA; okay to restart plavix in 3-5 days if no further bleeding and if indicated per cardiology -if no further bleeding and H/H stable in am, patient okay to be d/c per GI standpoint with f/u in clinic in 1-2 weeks Subjective Date of service: 04/09/19 Principal diagnosis: GI bleed Interval history: No acute distress or active signs of bleeding this am. Objective - Constitutional Vitals: Temp Pulse Resp BP Pulse Ox 98.7 F 82 18 155/53 95 04/09/19 07:54 04/09/19 09:06 04/09/19 09:06 04/09/19 07:54 04/09/19 09:07 General appearance: no acute distress - EENT Eyes: PERRL, EOM intact ENT: hearing intact - Respiratory Respiratory effort: normal - Cardiovascular Rhythm: regular - Gastrointestinal General gastrointestinal: Present: soft, non-tender, non-distended, normal bowel sounds - Neurologic Neurological: alert and oriented x3 - Labs CBC & Chem 7: 04/09/19 09:03 04/09/19 04:38 Labs: Laboratory Results - last 24 hr 04/08/19 04/08/19 04/08/19 12:23 16:20 22:48 WBC RBC Hgb Hct MCV MCH MCHC RDW Plt Count Lymph % (Auto) [place] % (Auto) Eos % (Auto) Baso % (Auto) Lymph # [place] # Eos # Baso # Seg Neutrophils % Seg Neutrophils # Sodium Potassium Chloride Carbon Dioxide Anion Gap BUN Creatinine Estimated GFR BUN/Creatinine Ratio Glucose POC Glucose 158 H 164 H Calcium Blood Type O POSITIVE Antibody Screen Negative Crossmatch See Detail 04/09/19 04/09/19 04/09/19 04:38 09:03 11:15 WBC 11.6 H RBC 2.76 L Hgb 8.2 L Hct 24.6 L MCV 89 MCH 30 MCHC 33 RDW 15.8 H Plt Count 208 Lymph % (Auto) 19.5 [place] % (Auto) 7.6 H Eos % (Auto) 5.0 H Baso % (Auto) 1.3 Lymph # 2.3 [place] # 0.9 H Eos # 0.6 H Baso # 0.1 Seg Neutrophils % 66.6 Seg Neutrophils # 7.7 Sodium 140 Potassium 4.1 Chloride 108.8 H Carbon Dioxide 21 L Anion Gap 14 BUN 18 Creatinine 1.0 Estimated GFR > 60 BUN/Creatinine Ratio 18 Glucose 106 H POC Glucose 125 H Calcium 7.5 L Blood Type Antibody Screen Crossmatch <ALLYN FITCH A - Last Filed: 04/09/19 19:48> Assessment and Plan Patient seen and examined; agree with note above. Objective - Constitutional Vitals: Temp Pulse Resp BP Pulse Ox 98.8 F 83 20 166/66 95 04/09/19 13:34 04/09/19 16:00 04/09/19 13:34 04/09/19 13:34 04/09/19 13:34 - Labs CBC & Chem 7: 04/09/19 09:03 04/09/19 04:38 Labs: Laboratory Results - last 24 hr 04/08/19 04/09/19 04/09/19 22:48 04:38 09:03 WBC 11.6 H RBC 2.76 L Hgb 8.2 L Hct 24.6 L MCV 89 MCH 30 MCHC 33 RDW 15.8 H Plt Count 208 Lymph % (Auto) 19.5 [place] % (Auto) 7.6 H Eos % (Auto) 5.0 H Baso % (Auto) 1.3 Lymph # 2.3 [place] # 0.9 H Eos # 0.6 H Baso # 0.1 Seg Neutrophils % 66.6 Seg Neutrophils # 7.7 Sodium 140 Potassium 4.1 Chloride 108.8 H Carbon Dioxide 21 L Anion Gap 14 BUN 18 Creatinine 1.0 Estimated GFR > 60 BUN/Creatinine Ratio 18 Glucose 106 H POC Glucose 164 H Calcium 7.5 L 04/09/19 11:15 WBC RBC Hgb Hct MCV MCH MCHC RDW Plt Count Lymph % (Auto) [place] % (Auto) Eos % (Auto) Baso % (Auto) Lymph # [place] # Eos # Baso # Seg Neutrophils % Seg Neutrophils # Sodium Potassium Chloride Carbon Dioxide Anion Gap BUN Creatinine Estimated GFR BUN/Creatinine Ratio Glucose POC Glucose 125 H Calcium
--- NOTE | 2019-04-09 13:23 | Nuclear Medicine Report ---
NUCLEAR MEDICINE GI BLEED STUDY INDICATION / CLINICAL INFORMATION: GI bleed. Per the technologist note, the patient is not currently bleeding at the time of this exam. TECHNIQUE: 21.3 mCi of [id number]-labeled RBCs were injected IV. Images were obtained of the abdomen w ere obtained for 60 minutes. COMPARISON: Tagged red blood cell scan from 11/13/2018. FINDINGS: Normal distribution of activity within the labeled blood pool with visualization of the heart, liver, spleen, and genitourinary tract. Normal vessels are identified. No abnormal focus of activity is identified. IMPRESSION: 1. No evidence of active GI bleeding over 1 hour. Signer Name: Jairon Pacheco MD Signed: 04/09/2019 1:19 PM Workstation Name: [id number]
[2019-04-09] MEDS: MONTELUKAST 10 MG TAB PO SCH (22:06)
[2019-04-10 06:25] LABS: Hematocrit 22.2 % (35.5-45.6); Hemoglobin 7.9 gm/dl (11.8-15.2); Mean Corpuscular HGB Conc 35 % (32-34); Mean Corpuscular Volume 88 fl (84-94); Platelet Count 253 K/mm3 (140-440); Red Blood Count 2.52 M/mm3 (3.65-5.03); Red Cell Distribution Width 15.5 % (13.2-15.2)
[2019-04-10 06:45] LABS: BUN/Creatinine Ratio 15; Blood Urea Nitrogen 15 mg/dL (9-20); Calcium 8.2 mg/dL (8.4-10.2); Hemolysis Index 10
[2019-04-10 09:04] LABS: Total Cells Counted 100
[2019-04-10 09:05] LABS: Anisocytosis 1+; Macrocytosis Few; Ovalocytes Few; Platelet Estimate Consistent w Auto
[2019-04-10] MEDS: cloNIDine 0.2 MG TAB PO SCH ×2 (09:09→21:13)
[2019-04-10] MEDS: PANTOPRAZOLE 40 MG TAB PO SCH (09:09)
[2019-04-10] MEDS: TAMSULOSIN 0.4 MG CAP PO SCH (09:09)
[2019-04-10] MEDS: hydrALAZINE 100 MG TAB PO SCH ×2 (09:10→21:13)
[2019-04-10] MEDS: METOPROLOL TARTRATE 25 MG TAB PO SCH ×2 (09:10→21:14)
--- NOTE | 2019-04-10 10:16 | Progress Note ---
Assessment and Plan Currently stable cardiac status. Pt noted to have minimally elevated troponins which appear nonspecific at this time. Ok to hold ASA and Plavix in setting of current GI bleed. H/H noted to be decreased today. Per hospitalist, GI team considering capsule endoscopy. Follow GI recs. The patient has been seen in conjunction with Dr. Soler who agrees with the assessment and plan of care. - Patient Problems (1) GI bleeding Current Visit: Yes Status: Acute (2) Anemia Current Visit: Yes Status: Acute (3) CAD (coronary artery disease) Current Visit: Yes Status: Chronic Qualifiers: Coronary Disease-Associated Artery/Lesion type: [place] artery [place] vs. transplanted heart: [place] heart (4) History of coronary artery bypass graft Current Visit: Yes Status: Chronic (5) S/P mitral valve repair Current Visit: Yes Status: Chronic (6) Elevated troponin Current Visit: Yes Status: Acute (7) HTN (hypertension) Current Visit: Yes Status: Chronic Qualifiers: Hypertension type: essential hypertension Qualified Code(s): I10 - Essential (primary) hypertension (8) HLD (hyperlipidemia) Current Visit: Yes Status: Chronic Qualifiers: Hyperlipidemia type: mixed hyperlipidemia Qualified Code(s): E78.2 - Mixed hyperlipidemia (9) Carotid stenosis Current Visit: Yes Status: Chronic (10) Moderate tricuspid regurgitation Current Visit: Yes Status: Chronic (11) Right bundle branch block Current Visit: Yes Status: Chronic Subjective Date of service: 04/10/19 Principal diagnosis: GI bleed Interval history: pt resting in bed, no current complaints. Objective Last Vital Signs Temp 98.3 F 04/10/19 07:19 Pulse 77 04/10/19 09:09 Resp 20 04/10/19 07:19 BP 127/58 04/10/19 09:09 Pulse Ox 92 04/10/19 07:19 - Physical Examination General: No Apparent Distress HEENT: Positive: PERRL, Normocephaly, Mucus Membranes Moist Neck: Positive: neck supple Cardiac: Positive: Reg Rate and Rhythm, S1/S2 Lungs: Positive: Decreased Breath Sounds Neuro: Positive: Grossly Intact Abdomen: Negative: Tender Skin: Negative: Rash Musculoskeletal: No Pain Extremities: Absent: edema - Labs and Meds CBC 04/10/19 Range/Units 05:47 WBC 11.0 (4.5-11.0) K/mm3 RBC 2.52 L (3.65-5.03) M/mm3 Hgb 7.9 L (11.8-15.2) gm/dl Hct 22.2 L (35.5-45.6) % Plt Count 253 (140-440) K/mm3 Comprehensive Metabolic Panel 04/10/19 Range/Units 05:47 Sodium 140 (137-145) mmol/L Potassium 4.0 (3.6-5.0) mmol/L Chloride 104.7 (98-107) mmol/L Carbon Dioxide 24 (22-30) mmol/L BUN 15 (9-20) mg/dL Creatinine 1.0 (0.8-1.5) mg/dL Glucose 104 H (75-100) mg/dL Calcium 8.2 L (8.4-10.2) mg/dL - Imaging and Cardiology EKG: report reviewed, image reviewed Echo: report reviewed ( 11/2018 showed EF 40-45%, mild pulmonary htn, moderate TR and calcified aortic & mitral valves with [id number] stenosis. ) - EKG Sinus rhythms and dysrhythmias: sinus rhythm AV and intraventricular conduction: right bundle branch block
--- NOTE | 2019-04-10 10:42 | Gastroenterology Progress Note ---
<MARGE FINNEY - Last Filed: 04/10/19 10:42> Assessment and Plan 1.GI bleed -H/H 7.9/22.2-slight trend down -continue to monitor H/H and transfuse as need to keep hgb > 8 -no active signs of bleeding overnight or this am -EGD 10/2018 with small duodenal ulcer and erosive esophagitis ( reported last colonoscopy in 2017, tics, polyp removed ) -s/p repeat EGD/colonoscopy 04/06/19 that revealed normal upper endoscopy and Diverticulosis throughout the colon -etiology-likely diverticular -bleeding scan yesterday negative for active bleeding -continue PPI and supportive care -okay to resume ASA; okay to restart plavix in 3-5 days if no further bleeding and if indicated per cardiology -will repeat H/H this afternoon- if labs stable and no further bleeding, patient okay to be d/c per GI standpoint with f/u in clinic in 1-2 weeks Subjective Date of service: 04/10/19 Principal diagnosis: GI bleed Interval history: No active signs of bleeding overnight or this am. Denies abd pain or N/V. Objective - Constitutional Vitals: Temp Pulse Resp BP Pulse Ox 98.3 F 77 20 127/58 92 04/10/19 07:19 04/10/19 09:09 04/10/19 07:19 04/10/19 09:09 04/10/19 07:19 General appearance: no acute distress - EENT Eyes: PERRL, EOM intact ENT: hearing intact - Respiratory Respiratory effort: normal - Cardiovascular Rhythm: regular - Gastrointestinal General gastrointestinal: Present: soft, non-tender, non-distended, normal bowel sounds - Neurologic Neurological: alert and oriented x3 - Labs CBC & Chem 7: 04/10/19 05:47 04/10/19 05:47 Labs: Laboratory Results - last 24 hr 04/09/19 04/09/19 04/10/19 11:15 22:32 05:47 WBC RBC Hgb Hct MCV MCH MCHC RDW Plt Count Add Manual Diff Total Counted Seg Neuts % (Manual) Band Neutrophils % Lymphocytes % (Manual) Reactive Lymphs % (Man) Monocytes % (Manual) Eosinophils % (Manual) Basophils % (Manual) Metamyelocytes % Myelocytes % Promyelocytes % Blast Cells % Nucleated RBC % Seg Neutrophils # Man Band Neutrophils # Lymphocytes # (Manual) Abs React Lymphs (Man) Monocytes # (Manual) Eosinophils # (Manual) Basophils # (Manual) Metamyelocytes # Myelocytes # Promyelocytes # Blast Cells # WBC Morphology Hypersegmented Neuts Hyposegmented Neuts Hypogranular Neuts Smudge Cells Toxic Granulation Toxic Vacuolation Dohle Bodies Pelger-Huet Anomaly Liang Rods Platelet Estimate Clumped Platelets Plt Clumps, EDTA Large Platelets Giant Platelets Platelet Satelliting Plt Morphology Comment RBC Morphology Dimorphic RBCs Polychromasia Hypochromasia Poikilocytosis Anisocytosis Microcytosis Macrocytosis Spherocytes Pappenheimer Bodies Sickle Cells Target Cells Tear Drop Cells Ovalocytes Helmet Cells Miranda-[place] Bodies [place] Rings Halls Cells Bite Cells Crenated Cell Elliptocytes Acanthocytes (Spur) Rouleaux Hemoglobin C Crystals Schistocytes Malaria parasites Fuad Bodies Hem Pathologist Commnt Sodium 140 Potassium 4.0 Chloride 104.7 Carbon Dioxide 24 Anion Gap 15 BUN 15 Creatinine 1.0 Estimated GFR > 60 BUN/Creatinine Ratio 15 Glucose 104 H POC Glucose 125 H 109 H Calcium 8.2 L 04/10/19 04/10/19 05:47 07:27 WBC 11.0 RBC 2.52 L Hgb 7.9 L Hct 22.2 L MCV 88 MCH 31 MCHC 35 H RDW 15.5 H Plt Count 253 Add Manual Diff Complete Total Counted 100 Seg Neuts % (Manual) 76.0 H Band Neutrophils % 0 Lymphocytes % (Manual) 14.0 Reactive Lymphs % (Man) 0 Monocytes % (Manual) 3.0 Eosinophils % (Manual) 6.0 H Basophils % (Manual) 1.0 Metamyelocytes % 0 Myelocytes % 0 Promyelocytes % 0 Blast Cells % 0 Nucleated RBC % Not Reportable Seg Neutrophils # Man 8.4 H Band Neutrophils # 0.0 Lymphocytes # (Manual) 1.5 Abs React Lymphs (Man) 0.0 Monocytes # (Manual) 0.3 Eosinophils # (Manual) 0.7 H Basophils # (Manual) 0.1 Metamyelocytes # 0.0 Myelocytes # 0.0 Promyelocytes # 0.0 Blast Cells # 0.0 WBC Morphology Not Reportable Hypersegmented Neuts Not Reportable Hyposegmented Neuts Not Reportable Hypogranular Neuts Not Reportable Smudge Cells Not Reportable Toxic Granulation Not Reportable Toxic Vacuolation Not Reportable Dohle Bodies Not Reportable Pelger-Huet Anomaly Not Reportable Liang Rods Not Reportable Platelet Estimate Consistent w auto Clumped Platelets Not Reportable Plt Clumps, EDTA Not Reportable Large Platelets Not Reportable Giant Platelets Not Reportable Platelet Satelliting Not Reportable Plt Morphology Comment Not Reportable RBC Morphology Not Reportable Dimorphic RBCs Not Reportable Polychromasia Not Reportable Hypochromasia Not Reportable Poikilocytosis Not Reportable Anisocytosis 1+ Microcytosis Not Reportable Macrocytosis Few Spherocytes Not Reportable Pappenheimer Bodies Not Reportable Sickle Cells Not Reportable Target Cells Not Reportable Tear Drop Cells Not Reportable Ovalocytes Few Helmet Cells Not Reportable Miranda-[place] Bodies Not Reportable [place] Rings Not Reportable Deep Cells Not Reportable Bite Cells Not Reportable Crenated Cell Not Reportable Elliptocytes Not Reportable Acanthocytes (Spur) Not Reportable Rouleaux Not Reportable Hemoglobin C Crystals Not Reportable Schistocytes Not Reportable Malaria parasites Not Reportable Fuad Bodies Not Reportable Hem Pathologist Commnt No Sodium Potassium Chloride Carbon Dioxide Anion Gap BUN Creatinine Estimated GFR BUN/Creatinine Ratio Glucose POC Glucose 106 H Calcium <ALLYN FITCH - Last Filed: 04/10/19 19:22> Assessment and Plan Patient seen and examined; agree with note above. Objective - Constitutional Vitals: Temp Pulse Resp BP Pulse Ox 97.7 F 60 20 106/45 93 04/10/19 13:35 04/10/19 13:35 04/10/19 13:35 04/10/19 13:35 04/10/19 13:35 - Labs CBC & Chem 7: 04/10/19 12:01 04/10/19 05:47 Labs: Laboratory Results - last 24 hr 04/09/19 04/10/19 04/10/19 22:32 05:47 05:47 WBC 11.0 RBC 2.52 L Hgb 7.9 L Hct 22.2 L MCV 88 MCH 31 MCHC 35 H RDW 15.5 H Plt Count 253 Add Manual Diff Complete Total Counted 100 Seg Neuts % (Manual) 76.0 H Band Neutrophils % 0 Lymphocytes % (Manual) 14.0 Reactive Lymphs % (Man) 0 Monocytes % (Manual) 3.0 Eosinophils % (Manual) 6.0 H Basophils % (Manual) 1.0 Metamyelocytes % 0 Myelocytes % 0 Promyelocytes % 0 Blast Cells % 0 Nucleated RBC % Not Reportable Seg Neutrophils # Man 8.4 H Band Neutrophils # 0.0 Lymphocytes # (Manual) 1.5 Abs React Lymphs (Man) 0.0 Monocytes # (Manual) 0.3 Eosinophils # (Manual) 0.7 H Basophils # (Manual) 0.1 Metamyelocytes # 0.0 Myelocytes # 0.0 Promyelocytes # 0.0 Blast Cells # 0.0 WBC Morphology Not Reportable Hypersegmented Neuts Not Reportable Hyposegmented Neuts Not Reportable Hypogranular Neuts Not Reportable Smudge Cells Not Reportable Toxic Granulation Not Reportable Toxic Vacuolation Not Reportable Dohle Bodies Not Reportable Pelger-Huet Anomaly Not Reportable Liang Rods Not Reportable Platelet Estimate Consistent w auto Clumped Platelets Not Reportable Plt Clumps, EDTA Not Reportable Large Platelets Not Reportable Giant Platelets Not Reportable Platelet Satelliting Not Reportable Plt Morphology Comment Not Reportable RBC Morphology Not Reportable Dimorphic RBCs Not Reportable Polychromasia Not Reportable Hypochromasia Not Reportable Poikilocytosis Not Reportable Anisocytosis 1+ Microcytosis Not Reportable Macrocytosis Few Spherocytes Not Reportable Pappenheimer Bodies Not Reportable Sickle Cells Not Reportable Target Cells Not Reportable Tear Drop Cells Not Reportable Ovalocytes Few Helmet Cells Not Reportable Miranda-[place] Bodies Not Reportable [place] Rings Not Reportable Halls Cells Not Reportable Bite Cells Not Reportable Crenated Cell Not Reportable Elliptocytes Not Reportable Acanthocytes (Spur) Not Reportable Rouleaux Not Reportable Hemoglobin C Crystals Not Reportable Schistocytes Not Reportable Malaria parasites Not Reportable Fuad Bodies Not Reportable Hem Pathologist Commnt No Sodium 140 Potassium 4.0 Chloride 104.7 Carbon Dioxide 24 Anion Gap 15 BUN 15 Creatinine 1.0 Estimated GFR > 60 BUN/Creatinine Ratio 15 Glucose 104 H POC Glucose 109 H Calcium 8.2 L 04/10/19 04/10/19 04/10/19 07:27 11:29 12:01 WBC RBC Hgb 7.6 L Hct 23.0 L MCV MCH MCHC RDW Plt Count Add Manual Diff Total Counted Seg Neuts % (Manual) Band Neutrophils % Lymphocytes % (Manual) Reactive Lymphs % (Man) Monocytes % (Manual) Eosinophils % (Manual) Basophils % (Manual) Metamyelocytes % Myelocytes % Promyelocytes % Blast Cells % Nucleated RBC % Seg Neutrophils # Man Band Neutrophils # Lymphocytes # (Manual) Abs React Lymphs (Man) Monocytes # (Manual) Eosinophils # (Manual) Basophils # (Manual) Metamyelocytes # Myelocytes # Promyelocytes # Blast Cells # WBC Morphology Hypersegmented Neuts Hyposegmented Neuts Hypogranular Neuts Smudge Cells Toxic Granulation Toxic Vacuolation Dohle Bodies Pelger-Huet Anomaly Liang Rods Platelet Estimate Clumped Platelets Plt Clumps, EDTA Large Platelets Giant Platelets Platelet Satelliting Plt Morphology Comment RBC Morphology Dimorphic RBCs Polychromasia Hypochromasia Poikilocytosis Anisocytosis Microcytosis Macrocytosis Spherocytes Pappenheimer Bodies Sickle Cells Target Cells Tear Drop Cells Ovalocytes Helmet Cells Miranda-[place] Bodies [place] Rings Halls Cells Bite Cells Crenated Cell Elliptocytes Acanthocytes (Spur) Rouleaux Hemoglobin C Crystals Schistocytes Malaria parasites Fuad Bodies Hem Pathologist Commnt Sodium Potassium Chloride Carbon Dioxide Anion Gap BUN Creatinine Estimated GFR BUN/Creatinine Ratio Glucose POC Glucose 106 H 96 Calcium 04/10/19 16:21 WBC RBC Hgb Hct MCV MCH MCHC RDW Plt Count Add Manual Diff Total Counted Seg Neuts % (Manual) Band Neutrophils % Lymphocytes % (Manual) Reactive Lymphs % (Man) Monocytes % (Manual) Eosinophils % (Manual) Basophils % (Manual) Metamyelocytes % Myelocytes % Promyelocytes % Blast Cells % Nucleated RBC % Seg Neutrophils # Man Band Neutrophils # Lymphocytes # (Manual) Abs React Lymphs (Man) Monocytes # (Manual) Eosinophils # (Manual) Basophils # (Manual) Metamyelocytes # Myelocytes # Promyelocytes # Blast Cells # WBC Morphology Hypersegmented Neuts Hyposegmented Neuts Hypogranular Neuts Smudge Cells Toxic Granulation Toxic Vacuolation Dohle Bodies Pelger-Huet Anomaly Liang Rods Platelet Estimate Clumped Platelets Plt Clumps, EDTA Large Platelets Giant Platelets Platelet Satelliting Plt Morphology Comment RBC Morphology Dimorphic RBCs Polychromasia Hypochromasia Poikilocytosis Anisocytosis Microcytosis Macrocytosis Spherocytes Pappenheimer Bodies Sickle Cells Target Cells Tear Drop Cells Ovalocytes Helmet Cells Miranda-[place] Bodies [place] Rings Deep Cells Bite Cells Crenated Cell Elliptocytes Acanthocytes (Spur) Rouleaux Hemoglobin C Crystals Schistocytes Malaria parasites Fuad Bodies Hem Pathologist Commnt Sodium Potassium Chloride Carbon Dioxide Anion Gap BUN Creatinine Estimated GFR BUN/Creatinine Ratio Glucose POC Glucose 105 Calcium
[2019-04-10] MEDS: ARFORMOTEROL 15 MCG/2 ML NEBU IH SCH ×2 (10:50→20:20)
[2019-04-10] MEDS: BUDESONIDE 0.5 MG/2 ML NEBU IH SCH ×2 (10:50→20:20)
[2019-04-10 12:28] LABS: Hemoglobin 7.6 gm/dl (11.8-15.2)
--- NOTE | 2019-04-10 14:10 | Progress Note ---
Assessment and Plan Assessment and plan: Acute lower GI bleed s/p EGD on 04/06 which was normal s/p colonoscopy on 04/06 which showed internal hemorrhoids and diverticulosis, likely diverticular bleed avoid NSAIDS RBC scan neg for bleed will do CTA abd/pelvis if bleeding reoccurs Acute blood loss anemia s/p 3 prbc no evidence of overt bleed H/H stable, will monitor and transfuse for hb<7 CARRIE due to vasomotor nephropathy s/p IVF, resolved renal consult appreciated SIRS due to noninfectious etiology without organ failure History of CAD status post CABG for CAD, aortic stenosis status post mitral valve replacement stable Chronic systolic HF with EF 45% no acute exacerbation Hypertension Controlled on home meds COPD stable cont advair , proair and singulair BPH cont flomax DVT prophylaxis SCDs in light of GI bleed Disp: GI recommended monitoring pt for additional 24 hrs before d/c in order to ensure that his H/H remain stable History Interval history: Pt has no new complaints. His last BM was yesterday which was dark, no noted bright red blood Hospitalist Physical - Constitutional Vitals: Temp Pulse Resp BP Pulse Ox 98.3 F 77 20 127/58 92 04/10/19 07:19 04/10/19 09:09 04/10/19 07:19 04/10/19 09:09 04/10/19 07:19 General appearance: Present: no acute distress - EENT Eyes: Present: PERRL, EOM intact ENT: hearing intact, clear oral mucosa - Neck Neck: Present: supple - Respiratory Respiratory effort: normal Respiratory: bilateral: CTA - Cardiovascular Rhythm: regular Heart Sounds: Present: S1 & S2 - Extremities Extremities: No edema - Abdominal General gastrointestinal: soft, non-tender, normal bowel sounds - Integumentary Integumentary: Present: warm, dry - Psychiatric Psychiatric: cooperative - Neurologic Neurologic: moves all extremities Results - Labs CBC & Chem 7: 04/10/19 12:01 04/10/19 05:47 Labs: Laboratory Last Values WBC 11.0 K/mm3 (4.5-11.0) 04/10/19 05:47 RBC 2.52 M/mm3 (3.65-5.03) L 04/10/19 05:47 Hgb 7.6 gm/dl (11.8-15.2) L 04/10/19 12:01 Hct 23.0 % (35.5-45.6) L 04/10/19 12:01 MCV 88 fl (84-94) 04/10/19 05:47 MCH 31 pg (28-32) 04/10/19 05:47 MCHC 35 % (32-34) H 04/10/19 05:47 RDW 15.5 % (13.2-15.2) H 04/10/19 05:47 Plt Count 253 K/mm3 (140-440) 04/10/19 05:47 Lymph % (Auto) 19.5 % (13.4-35.0) 04/09/19 09:03 [place] % (Auto) 7.6 % (0.0-7.3) H 04/09/19 09:03 Eos % (Auto) 5.0 % (0.0-4.3) H 04/09/19 09:03 Baso % (Auto) 1.3 % (0.0-1.8) 04/09/19 09:03 Lymph # 2.3 K/mm3 (1.2-5.4) 04/09/19 09:03 [place] # 0.9 K/mm3 (0.0-0.8) H 04/09/19 09:03 Eos # 0.6 K/mm3 (0.0-0.4) H 04/09/19 09:03 Baso # 0.1 K/mm3 (0.0-0.1) 04/09/19 09:03 Add Manual Diff Complete 04/10/19 05:47 Total Counted 100 04/10/19 05:47 Seg Neutrophils % 66.6 % (40.0-70.0) 04/09/19 09:03 Seg Neuts % (Manual) 76.0 % (40.0-70.0) H 04/10/19 05:47 Band Neutrophils % 0 % 04/10/19 05:47 Lymphocytes % (Manual) 14.0 % (13.4-35.0) 04/10/19 05:47 Reactive Lymphs % (Man) 0 % 04/10/19 05:47 Monocytes % (Manual) 3.0 % (0.0-7.3) 04/10/19 05:47 Eosinophils % (Manual) 6.0 % (0.0-4.3) H 04/10/19 05:47 Basophils % (Manual) 1.0 % (0.0-1.8) 04/10/19 05:47 Metamyelocytes % 0 % 04/10/19 05:47 Myelocytes % 0 % 04/10/19 05:47 Promyelocytes % 0 % 04/10/19 05:47 Blast Cells % 0 % 04/10/19 05:47 Nucleated RBC % Not Reportable 04/10/19 05:47 Seg Neutrophils # 7.7 K/mm3 (1.8-7.7) 04/09/19 09:03 Seg Neutrophils # Man 8.4 K/mm3 (1.8-7.7) H 04/10/19 05:47 Band Neutrophils # 0.0 K/mm3 04/10/19 05:47 Lymphocytes # (Manual) 1.5 K/mm3 (1.2-5.4) 04/10/19 05:47 Abs React Lymphs (Man) 0.0 K/mm3 04/10/19 05:47 Monocytes # (Manual) 0.3 K/mm3 (0.0-0.8) 04/10/19 05:47 Eosinophils # (Manual) 0.7 K/mm3 (0.0-0.4) H 04/10/19 05:47 Basophils # (Manual) 0.1 K/mm3 (0.0-0.1) 04/10/19 05:47 Metamyelocytes # 0.0 K/mm3 04/10/19 05:47 Myelocytes # 0.0 K/mm3 04/10/19 05:47 Promyelocytes # 0.0 K/mm3 04/10/19 05:47 Blast Cells # 0.0 K/mm3 04/10/19 05:47 WBC Morphology Not Reportable 04/10/19 05:47 Hypersegmented Neuts Not Reportable 04/10/19 05:47 Hyposegmented Neuts Not Reportable 04/10/19 05:47 Hypogranular Neuts Not Reportable 04/10/19 05:47 Smudge Cells Not Reportable 04/10/19 05:47 Toxic Granulation Not Reportable 04/10/19 05:47 Toxic Vacuolation Not Reportable 04/10/19 05:47 Dohle Bodies Not Reportable 04/10/19 05:47 Pelger-Huet Anomaly Not Reportable 04/10/19 05:47 Liang Rods Not Reportable 04/10/19 05:47 Platelet Estimate Consistent w auto 04/10/19 05:47 Clumped Platelets Not Reportable 04/10/19 05:47 Plt Clumps, EDTA Not Reportable 04/10/19 05:47 Large Platelets Not Reportable 04/10/19 05:47 Giant Platelets Not Reportable 04/10/19 05:47 Platelet Satelliting Not Reportable 04/10/19 05:47 Plt Morphology Comment Not Reportable 04/10/19 05:47 RBC Morphology Not Reportable 04/10/19 05:47 Dimorphic RBCs Not Reportable 04/10/19 05:47 Polychromasia Not Reportable 04/10/19 05:47 Hypochromasia Not Reportable 04/10/19 05:47 Poikilocytosis Not Reportable 04/10/19 05:47 Anisocytosis 1+ 04/10/19 05:47 Microcytosis Not Reportable 04/10/19 05:47 Macrocytosis Few 04/10/19 05:47 Spherocytes Not Reportable 04/10/19 05:47 Pappenheimer Bodies Not Reportable 04/10/19 05:47 Sickle Cells Not Reportable 04/10/19 05:47 Target Cells Not Reportable 04/10/19 05:47 Tear Drop Cells Not Reportable 04/10/19 05:47 Ovalocytes Few 04/10/19 05:47 Helmet Cells Not Reportable 04/10/19 05:47 Miranda-[place] Bodies Not Reportable 04/10/19 05:47 [place] Rings Not Reportable 04/10/19 05:47 Deep Cells Not Reportable 04/10/19 05:47 Bite Cells Not Reportable 04/10/19 05:47 Crenated Cell Not Reportable 04/10/19 05:47 Elliptocytes Not Reportable 04/10/19 05:47 Acanthocytes (Spur) Not Reportable 04/10/19 05:47 Rouleaux Not Reportable 04/10/19 05:47 Hemoglobin C Crystals Not Reportable 04/10/19 05:47 Schistocytes Not Reportable 04/10/19 05:47 Malaria parasites Not Reportable 04/10/19 05:47 Fuad Bodies Not Reportable 04/10/19 05:47 Hem Pathologist Commnt No 04/10/19 05:47 PT 13.9 Sec. (12.2-14.9) 04/05/19 04:28 INR 1.08 (0.87-1.13) 04/05/19 04:28 APTT 27.4 Sec. (24.2-36.6) 04/05/19 04:28 Sodium 140 mmol/L (137-145) 04/10/19 05:47 Potassium 4.0 mmol/L (3.6-5.0) 04/10/19 05:47 Chloride 104.7 mmol/L (98-107) 04/10/19 05:47 Carbon Dioxide 24 mmol/L (22-30) 04/10/19 05:47 Anion Gap 15 mmol/L 04/10/19 05:47 BUN 15 mg/dL (9-20) 04/10/19 05:47 Creatinine 1.0 mg/dL (0.8-1.5) 04/10/19 05:47 Estimated GFR > 60 ml/min 04/10/19 05:47 BUN/Creatinine Ratio 15 % 04/10/19 05:47 Glucose 104 mg/dL (75-100) H 04/10/19 05:47 POC Glucose 96 (70-105) 04/10/19 11:29 Calcium 8.2 mg/dL (8.4-10.2) L 04/10/19 05:47 Magnesium 1.80 mg/dL (1.7-2.3) 04/08/19 04:07 Total Bilirubin 0.30 mg/dL (0.1-1.2) 04/05/19 04:28 Direct Bilirubin < 0.2 mg/dL (0-0.2) 04/05/19 04:28 Indirect Bilirubin 0.1 mg/dL 04/05/19 04:28 AST 16 units/L (5-40) 04/05/19 04:28 ALT 13 units/L (7-56) 04/05/19 04:28 Alkaline Phosphatase 52 units/L (35-129) 04/05/19 04:28 Troponin T 0.040 ng/mL (0.00-0.029) H 04/06/19 03:35 Total Protein 6.1 g/dL (6.3-8.2) L 04/05/19 04:28 Albumin 3.7 g/dL (3.9-5) L 04/05/19 04:28 Albumin/Globulin Ratio 1.5 % 04/05/19 04:28 Triglycerides 90 mg/dL (2-149) 04/05/19 04:28 Cholesterol 148 mg/dL (50-199) 04/05/19 04:28 LDL Cholesterol Direct 88 mg/dL (50-130) 04/05/19 04:28 HDL Cholesterol 59 mg/dL (40-59) 04/05/19 04:28 Cholesterol/HDL Ratio 2.50 % 04/05/19 04:28 Urine Color Straw (Yellow) 04/07/19 Unknown Urine Turbidity Clear (Clear) 04/07/19 Unknown Urine pH 6.0 (5.0-7.0) 04/07/19 Unknown Ur Specific [place] 1.009 (1.003-1.030) 04/07/19 Unknown Urine Protein <15 mg/dl mg/dL (Negative) 04/07/19 Unknown Urine Glucose (UA) Neg mg/dL (Negative) 04/07/19 Unknown Urine Ketones Neg mg/dL (Negative) 04/07/19 Unknown Urine Blood Neg (Negative) 04/07/19 Unknown Urine Nitrite Neg (Negative) 04/07/19 Unknown Urine Bilirubin Neg (Negative) 04/07/19 Unknown Urine Urobilinogen < 2.0 mg/dL (<2.0) 04/07/19 Unknown Ur Leukocyte Esterase Neg (Negative) 04/07/19 Unknown Urine WBC (Auto) < 1.0 /HPF (0.0-6.0) 04/07/19 Unknown Urine RBC (Auto) 1.0 /HPF (0.0-6.0) 04/07/19 Unknown Urine Creatinine 76.5 mg/dL (0.1-20.0) H 04/07/19 Unknown Urine Sodium 30 mmol/L 04/07/19 Unknown Urine Total Protein 4 mg/dL (5-11.8) L 04/07/19 Unknown Blood Type O POSITIVE 04/08/19 12:23 Antibody Screen Negative 04/08/19 12:23 Crossmatch See Detail 04/08/19 12:23 Active Medications - Current Medications Current Medications: Generic Name Dose Route Start Last Admin Trade Name Freq PRN Reason Stop Dose Admin Acetaminophen 650 mg 04/05/19 11:24 04/08/19 16:02 Tylenol PO 650 mg Q4H PRN Administration Pain MILD(1-3)/Fever >100.5/BRYAN Albuterol 2.5 mg 04/05/19 11:26 Proventil IH Q4HRT PRN Shortness Of Breath Arformoterol Tartrate 15 mcg 04/05/19 20:00 04/10/19 10:50 Brovana Nebu IH 15 mcg Q12HRT TERESA Administration Atorvastatin Calcium 20 mg 04/05/19 22:00 04/09/19 22:05 Lipitor PO 20 mg QHS TERESA Administration Budesonide 0.5 mg 04/05/19 20:00 04/10/19 10:50 Pulmicort IH 0.5 mg Q12HRT TERESA Administration Clonidine HCl 0.2 mg 04/05/19 22:00 04/10/19 09:09 Catapres PO 0.2 mg Q12HR TERESA Administration Hydralazine HCl 100 mg 04/05/19 22:00 04/10/19 09:10 Apresoline PO 100 mg BID TERESA Administration Metoprolol Tartrate 25 mg 04/05/19 22:00 04/10/19 09:10 Metoprolol PO 25 mg BID TERESA Administration Montelukast Sodium 10 mg 04/05/19 22:00 04/09/19 22:06 Singulair PO 10 mg QHS TERESA Administration Ondansetron HCl 4 mg 04/05/19 11:24 04/05/19 20:43 Zofran IV 4 mg Q8H PRN Administration Nausea And Vomiting Pantoprazole Sodium 40 mg 04/08/19 10:00 04/10/19 09:09 Protonix PO 40 mg QDAY TERESA Administration Sodium Chloride 10 ml 04/05/19 22:00 04/10/19 09:11 Sodium Chloride Flush Syringe 10 Ml IV 10 ml BID TERESA Administration Sodium Chloride 10 ml 04/05/19 11:24 Sodium Chloride Flush Syringe 10 Ml IV PRN PRN LINE FLUSH Tamsulosin HCl 0.4 mg 04/06/19 10:00 04/10/19 09:09 Flomax PO 0.4 mg QDAY TERESA Administration
[2019-04-10] MEDS: ACETAMINOPHEN 325 MG TAB PO PRN (19:29)
[2019-04-10] MEDS: MONTELUKAST 10 MG TAB PO SCH (21:13)
--- NOTE | 2019-04-10 21:42 | Progress Note ---
Assessment and Plan - Patient Problems (1) Gastrointestinal bleeding Current Visit: Yes Status: Acute Plan to address problem: Colonoscopy showed internal hemorrhoids and diverticulosis. Presumed diverticular bleed. Bleeding scan negative. Continue management by yarn spinner (2) Acute kidney injury (CARRIE) with acute tubular necrosis (ATN) Current Visit: Yes Status: Acute Plan to address problem: Kidney function has improved. Follow-up electrolytes and renal function (3) Acute posthemorrhagic anemia Current Visit: Yes Status: Acute Plan to address problem: Follow-up hemoglobin and transfuse per primary attending (4) HTN (hypertension) Current Visit: Yes Status: Chronic Qualifiers: Hypertension type: essential hypertension Qualified Code(s): I10 - Essential (primary) hypertension Plan to address problem: Follow-up blood pressure on current medications Subjective Date of service: 04/10/19 Principal diagnosis: GI bleed Interval history: Patient seen lying in bed. He has no new complaints. Just had bloody stools yesterday. Son at bedside. Objective - Exam Narrative Exam: Eldery [place] male lying in bed in no acute distress HEENT: NCAT, pink oral mucous membrane Neck: Supple, no venous distention CVS: S1S2 RRR with no murmur, rub or gallop Chest: Clear to auscultation Abdomen: Protuberant, soft, nontender, no organomegaly, bowel sounds are present Extremities: No edema Neuro: Awake, alert no focal deficits - Vital Signs Vital signs: Vital Signs - 12hr 04/10/19 04/10/19 04/10/19 10:00 10:50 13:35 Temperature 97.7 F Pulse Rate 60 Pulse Rate [ 82 Anterior Throughout] Pulse Rate [ 82 Bilateral Bases ] Pulse Rate [ 78 Bilateral Lower Lobe] Pulse Rate [ 93 H Left Radial] Respiratory 20 20 Rate Respiratory 18 Rate [Anterior Throughout] Respiratory 18 Rate [Bilateral Bases] Respiratory 20 Rate [Bilateral Lower Lobe] Blood Pressure 106/45 O2 Sat by Pulse 93 93 Oximetry 04/10/19 04/10/19 04/10/19 19:54 21:07 21:13 Temperature 98.2 F Pulse Rate 78 78 Pulse Rate [ Anterior Throughout] Pulse Rate [ Bilateral Bases ] Pulse Rate [ Bilateral Lower Lobe] Pulse Rate [ Left Radial] Respiratory 20 Rate Respiratory Rate [Anterior Throughout] Respiratory Rate [Bilateral Bases] Respiratory Rate [Bilateral Lower Lobe] Blood Pressure 140/51 140/51 O2 Sat by Pulse 94 Oximetry 04/10/19 21:14 Temperature Pulse Rate 78 Pulse Rate [ Anterior Throughout] Pulse Rate [ Bilateral Bases ] Pulse Rate [ Bilateral Lower Lobe] Pulse Rate [ Left Radial] Respiratory Rate Respiratory Rate [Anterior Throughout] Respiratory Rate [Bilateral Bases] Respiratory Rate [Bilateral Lower Lobe] Blood Pressure 140/51 O2 Sat by Pulse Oximetry - Lab 04/10/19 12:01 04/10/19 05:47 Most recent lab results Calcium 8.2 mg/dL (8.4-10.2) L 04/10/19 05:47 Magnesium 1.80 mg/dL (1.7-2.3) 04/08/19 04:07 Urine Creatinine 76.5 mg/dL (0.1-20.0) H 04/07/19 Unknown Urine Sodium 30 mmol/L 04/07/19 Unknown Urine Total Protein 4 mg/dL (5-11.8) L 04/07/19 Unknown Medications & Allergies - Medications Allergies/Adverse Reactions: Allergies No Known Allergies Allergy (Verified 11/11/18 08:08) Home Medications: Home Medications Medication Instructions Recorded Confirmed Last Taken Type cloNIDine [Catapres] 0.2 mg PO BID 07/04/18 04/10/19 04/09/19 22:00 History 0.2mg hydrALAZINE [Apresoline TAB] 100 mg PO BID tab 07/09/18 04/10/19 04/09/19 22:00 Rx 100 mg AtorvaSTATin 10 mg PO QHS #30 tablet 01/30/19 04/10/19 04/09/19 22:00 Rx 10 mg Metoprolol [Lopressor TAB] 25 mg PO BID #60 tablet 01/30/19 04/10/19 04/09/19 22:00 Rx 25 mg levoFLOXacin [Levaquin] 750 mg PO QDAY #5 tablet 01/30/19 04/10/19 Unknown Rx Active Medications: Generic Name Dose Route Start Last Admin Trade Name Freq PRN Reason Stop Dose Admin Acetaminophen 650 mg 04/05/19 11:24 04/10/19 19:29 Tylenol PO 650 mg Q4H PRN Administration Pain MILD(1-3)/Fever >100.5/BRYAN Albuterol 2.5 mg 04/05/19 11:26 Proventil IH Q4HRT PRN Shortness Of Breath Arformoterol Tartrate 15 mcg 04/05/19 20:00 04/10/19 20:20 Brovana Nebu IH 15 mcg Q12HRT TERESA Administration Atorvastatin Calcium 20 mg 04/05/19 22:00 04/10/19 21:13 Lipitor PO 20 mg QHS TERESA Administration Budesonide 0.5 mg 04/05/19 20:00 04/10/19 20:20 Pulmicort IH 0.5 mg Q12HRT TERESA Administration Clonidine HCl 0.2 mg 04/05/19 22:00 04/10/19 21:13 Catapres PO 0.2 mg Q12HR TERESA Administration Hydralazine HCl 100 mg 04/05/19 22:00 04/10/19 21:13 Apresoline PO 100 mg BID TERESA Administration Metoprolol Tartrate 25 mg 04/05/19 22:00 04/10/19 21:14 Metoprolol PO 25 mg BID TERESA Administration Montelukast Sodium 10 mg 04/05/19 22:00 04/10/19 21:13 Singulair PO 10 mg QHS TERESA Administration Ondansetron HCl 4 mg 04/05/19 11:24 04/05/19 20:43 Zofran IV 4 mg Q8H PRN Administration Nausea And Vomiting Pantoprazole Sodium 40 mg 04/08/19 10:00 04/10/19 09:09 Protonix PO 40 mg QDAY TERESA Administration Sodium Chloride 10 ml 04/05/19 22:00 04/10/19 21:14 Sodium Chloride Flush Syringe 10 Ml IV 10 ml BID TERESA Administration Sodium Chloride 10 ml 04/05/19 11:24 Sodium Chloride Flush Syringe 10 Ml IV PRN PRN LINE FLUSH Tamsulosin HCl 0.4 mg 04/06/19 10:00 04/10/19 09:09 Flomax PO 0.4 mg QDAY TERESA Administration
[2019-04-11 04:25] LABS: Hematocrit 22.9 % (35.5-45.6); Hemoglobin 7.8 gm/dl (11.8-15.2)
[2019-04-11] MEDS ORDERED: SODIUM CHLORIDE 0.9% 500 ML 500 ML IV ONE (08:43)
[2019-04-11] MEDS: BUDESONIDE 0.5 MG/2 ML NEBU IH SCH (08:58)
[2019-04-11] MEDS: ARFORMOTEROL 15 MCG/2 ML NEBU IH SCH (08:58)
[2019-04-11 09:14] VITALS: BP 113/51
[2019-04-11] MEDS: PANTOPRAZOLE 40 MG TAB PO SCH (09:35)
[2019-04-11] MEDS: TAMSULOSIN 0.4 MG CAP PO SCH (09:35)
--- NOTE | 2019-04-11 09:35 | Gastroenterology Progress Note ---
<MRAGE FINNEY - Last Filed: 04/11/19 09:33> Assessment and Plan 1.GI bleed -H/H 7.8/22.9-stable -continue to monitor H/H and transfuse as need to keep hgb > 8 -no active signs of bleeding overnight or this am -EGD 10/2018 with small duodenal ulcer and erosive esophagitis ( reported last colonoscopy in 2017, tics, polyp removed ) -s/p repeat EGD/colonoscopy 04/06/19 that revealed normal upper endoscopy and Diverticulosis throughout the colon -etiology-likely diverticular -bleeding scan 04/09/19 negative for active bleeding -continue PPI and supportive care -okay to resume ASA; okay to restart plavix in 3-5 days if no further bleeding and if indicated per cardiology -patient okay to be d/c per GI standpoint with f/u in clinic in 1-2 weeks -will sign off, please call if needed Subjective Date of service: 04/11/19 Principal diagnosis: GI bleed Interval history: No active signs of bleeding overnight or this am. Denies abd pain or N/V. Objective - Constitutional Vitals: Temp Pulse Resp BP Pulse Ox 98.2 F 64 20 113/51 93 04/11/19 07:20 04/11/19 07:20 04/11/19 07:20 04/11/19 07:20 04/11/19 07:20 General appearance: no acute distress - EENT Eyes: PERRL, EOM intact ENT: hearing intact - Respiratory Respiratory effort: normal - Cardiovascular Rhythm: regular - Gastrointestinal General gastrointestinal: Present: soft, non-tender, non-distended, normal bowel sounds - Integumentary Integumentary: Present: warm, dry - Neurologic Neurological: alert and oriented x3 - Labs CBC & Chem 7: 04/11/19 04:01 04/10/19 05:47 Labs: Laboratory Results - last 24 hr 04/10/19 04/10/19 04/10/19 11:29 12:01 16:21 Hgb 7.6 L Hct 23.0 L POC Glucose 96 105 04/10/19 04/11/19 04/11/19 22:43 04:01 07:31 Hgb 7.8 L Hct 22.9 L POC Glucose 112 H 103 <ALLYN FITCH - Last Filed: 04/11/19 10:56> Assessment and Plan Patient seen and examined. Agree with note above. Will sign off, please call as needed or with questions. Objective - Constitutional Vitals: Temp Pulse Resp BP Pulse Ox 98.2 F 64 20 113/51 93 04/11/19 07:20 04/11/19 07:20 04/11/19 07:20 04/11/19 07:20 04/11/19 07:20 - Labs CBC & Chem 7: 04/11/19 04:01 04/10/19 05:47 Labs: Laboratory Results - last 24 hr 04/10/19 04/10/19 04/10/19 11:29 12:01 16:21 Hgb 7.6 L Hct 23.0 L POC Glucose 96 105 04/10/19 04/11/19 04/11/19 22:43 04:01 07:31 Hgb 7.8 L Hct 22.9 L POC Glucose 112 H 103
--- NOTE | 2019-04-11 11:08 | Progress Note ---
Assessment and Plan Currently stable cardiac status. Pt noted to have minimally elevated troponins which appear nonspecific at this time. Home ASA and Plavix have been held in setting of anemia and GI bleed. GI recs noted - okay to resume ASA; okay to restart plavix in 3-5 days if no further bleeding and if indicated per cardiology. We will discontinue ASA as source of GI bleed has not been identified and pt remains anemic. Recommend resumption of Plavix in 5 days. Nothing further to add from cardiac perspective. Will sign off. Recommend pt follow up in our office with Dr. Lal within 1-2 weeks of discharge ([phone]). The patient has been seen in conjunction with Dr. Soler who agrees with the assessment and plan of care. - Patient Problems (1) GI bleeding Current Visit: Yes Status: Acute (2) Anemia Current Visit: Yes Status: Acute (3) CAD (coronary artery disease) Current Visit: Yes Status: Chronic Qualifiers: Coronary Disease-Associated Artery/Lesion type: [place] artery [place] vs. transplanted heart: [place] heart (4) History of coronary artery bypass graft Current Visit: Yes Status: Chronic (5) S/P mitral valve repair Current Visit: Yes Status: Chronic (6) Elevated troponin Current Visit: Yes Status: Acute (7) HTN (hypertension) Current Visit: Yes Status: Chronic Qualifiers: Hypertension type: essential hypertension Qualified Code(s): I10 - Essential (primary) hypertension (8) HLD (hyperlipidemia) Current Visit: Yes Status: Chronic Qualifiers: Hyperlipidemia type: mixed hyperlipidemia Qualified Code(s): E78.2 - Mixed hyperlipidemia (9) Carotid stenosis Current Visit: Yes Status: Chronic (10) Moderate tricuspid regurgitation Current Visit: Yes Status: Chronic (11) Right bundle branch block Current Visit: Yes Status: Chronic Subjective Date of service: 04/11/19 Principal diagnosis: GI bleed Interval history: pt resting in bed, no current complaints. in SR. Objective Last Vital Signs Temp 98.2 F 04/11/19 07:20 Pulse 64 04/11/19 07:20 Resp 20 04/11/19 07:20 BP 113/51 04/11/19 07:20 Pulse Ox 93 04/11/19 07:20 - Physical Examination General: No Apparent Distress HEENT: Positive: PERRL, Normocephaly, Mucus Membranes Moist Neck: Positive: neck supple Cardiac: Positive: Reg Rate and Rhythm, S1/S2 Lungs: Positive: Decreased Breath Sounds Neuro: Positive: Grossly Intact Abdomen: Negative: Tender Skin: Negative: Rash Musculoskeletal: No Pain Extremities: Absent: edema - Labs and Meds CBC 04/10/19 04/11/19 Range/Units 12:01 04:01 Hgb 7.6 L 7.8 L (11.8-15.2) gm/dl Hct 23.0 L 22.9 L (35.5-45.6) % - Imaging and Cardiology EKG: report reviewed, image reviewed Echo: report reviewed ( 11/2018 showed EF 40-45%, mild pulmonary htn, moderate TR and calcified aortic & mitral valves with [id number] stenosis. ) - EKG Sinus rhythms and dysrhythmias: sinus rhythm AV and intraventricular conduction: right bundle branch block
[2019-04-11] MEDS: METOPROLOL TARTRATE 25 MG TAB PO SCH (11:12)
[2019-04-11] MEDS: cloNIDine 0.2 MG TAB PO SCH (11:12)
[2019-04-11] MEDS: hydrALAZINE 100 MG TAB PO SCH (11:12)
--- NOTE | 2019-04-11 12:41 | Discharge Summary ---
Providers - Providers Date of Admission: 04/06/19 13:58 Date of discharge: 04/11/19 Attending physician: ALIS HERNANDEZ 04/05/19 06:33 Consult to Physician [CONS] Stat Comment: Dr. Phillips spoke with Dr. Ibarra @ 0537 Consulting Provider: JAN IBARRA Physician Instructions: Reason For Exam: gi bleed 04/05/19 10:10 Consult to Cardiology [CONS] Routine Consulting Provider: FLEX LEDEZMA Reason For Exam: cardiac clearance for procedure 04/05/19 11:24 Consult to Physician [CONS] Routine Comment: Consulting Provider: FLEX LEDEZMA Physician Instructions: Reason For Exam: cad, needs eval prior to EGD/cscop 04/07/19 08:30 Consult to Physician [CONS] Routine Comment: Consulting Provider: RAMIRO SIEGEL Physician Instructions: Reason For Exam: carrie Primary care physician: [facility], [place] Hospitalization Reason for admission: Acute lower GI bleed, Acute blood loss anemia Condition: Stable Hospital course: Final discharge diagnosis/Hospital course: Acute lower GI bleed s/p EGD on 04/06 which was normal s/p colonoscopy on 04/06 which showed internal hemorrhoids and diverticulosis, likely diverticular bleed RBC scan neg for bleed Acute blood loss anemia s/p 3 prbc, H/H improved CARRIE due to vasomotor nephropathy s/p IVF, resolved SIRS due to noninfectious etiology without organ failure History of CAD status post CABG for CAD, aortic stenosis status post mitral valve replacement Chronic systolic HF with EF 45% Hypertension COPD BPH At discharge, pt was instructed to stop taking ASA and to resume his plavix in 5 days per cardiology recommendations. Disposition: - TO HOME OR SELFCARE Time spent for discharge: 38 minutes Core Measure Documentation - Palliative Care Palliative Care/ Comfort Measures: Not Applicable - Core Measures Any of the following diagnoses?: none Exam - Constitutional Vitals: Temp Pulse Resp BP Pulse Ox 98.2 F 83 18 113/51 96 04/11/19 07:20 04/11/19 10:00 04/11/19 10:00 04/11/19 07:20 04/11/19 10:25 General appearance: Present: no acute distress, well-nourished - EENT Eyes: Present: PERRL, EOM intact ENT: hearing intact, clear oral mucosa - Neck Neck: Present: supple, normal ROM - Respiratory Respiratory effort: normal Respiratory: bilateral: CTA - Cardiovascular Rhythm: regular Heart Sounds: Present: S1 & S2. Absent: rub, click - Extremities Extremities: No edema - Abdominal General gastrointestinal: Present: soft, non-tender, non-distended, normal bowel sounds - Integumentary Integumentary: Present: clear, warm, dry - Musculoskeletal Musculoskeletal: gait normal, strength equal bilaterally - Psychiatric Psychiatric: appropriate mood/affect, intact judgment & insight - Neurologic Neurologic: CNII-XII intact, moves all extremities Plan Follow up with: RA HERNANDEZ MD [Primary Care Provider] - 7 Days Forms: Accompanied Note Prescriptions: Pantoprazole [Protonix TAB] 40 mg PO QDAY #30 tablet
[2019-04-12] MEDS ORDERED: CLOPIDOGREL 75 MG TAB PO SCH (10:00)
== END 2019-04-11 12:15 | disposition home or self-care (01) | DRG 377 ==
LOC: ED 03:55 → 4A 06:30 → OBSVTOIN 04-06 13:58 → 2B-ACE 04-06 23:48
PROVIDERS: ADMIT Internal Medicine Geriatric Medicine; ATTEND Internal Medicine
PROC: 0DJ08ZZ Inspection of Upper Intestinal Tract, Via Natural or Artificial Opening Endoscopic (ICD-10-PCS; principal; 2019-04-06)
PROC: 0DJD8ZZ Inspection of Lower Intestinal Tract, Via Natural or Artificial Opening Endoscopic (ICD-10-PCS; 2019-04-06)
PROC: 30233N1 Transfusion of Nonautologous Red Blood Cells into Peripheral Vein, Percutaneous Approach (ICD-10-PCS; 2019-04-06)
DX: K57.91 Diverticulosis of intestine, part unspecified, without perforation or abscess with bleeding (principal); N17.0 Acute kidney failure with tubular necrosis; D62 Acute posthemorrhagic anemia; R65.10 Systemic inflammatory response syndrome (SIRS) of non-infectious origin without acute organ dysfunction; I50.22 Chronic systolic (congestive) heart failure; I42.9 Cardiomyopathy, unspecified; I25.10 Atherosclerotic heart disease of native coronary artery without angina pectoris; J44.9 Chronic obstructive pulmonary disease, unspecified; I11.0 Hypertensive heart disease with heart failure; K21.9 Gastro-esophageal reflux disease without esophagitis; K64.8 Other hemorrhoids; N40.0 Benign prostatic hyperplasia without lower urinary tract symptoms; E78.2 Mixed hyperlipidemia; I65.29 Occlusion and stenosis of unspecified carotid artery; I45.10 Unspecified right bundle-branch block; M19.90 Unspecified osteoarthritis, unspecified site; G43.909 Migraine, unspecified, not intractable, without status migrainosus; R79.89 Other specified abnormal findings of blood chemistry; Z95.1 Presence of aortocoronary bypass graft; Z95.2 Presence of prosthetic heart valve; Z87.891 Personal history of nicotine dependence; Z87.01 Personal history of pneumonia (recurrent); Z72.89 Other problems related to lifestyle; Z82.49 Family history of ischemic heart disease and other diseases of the circulatory system; Z79.899 Other long term (current) drug therapy
CPT/HCPCS: 36415; 36430; 71045; 78278; 80048; 80061; 80076; 81001; 82570; 82962; 83735; 84156; 84300; 84484; 85007; 85014; 85018; 85025; 85610; 85730; 86850; 86900; 86901; 86920; 93005; 93010; 94640; 94760; G0378; A9270-GY; A9560; C9113; J1642; J2405; J2704; J3480; J7030; J7040; J7050; P9016

== ENCOUNTER 2020-09-08 14:23 | Emergency (ER) | payer MEDICARE ==
[2020-09-08 15:46] VITALS: BP 104/56
--- NOTE | 2020-09-08 16:46 | XRay Report ---
RIGHT SHOULDER 3 VIEWS INDICATION: Fall, shoulder pain. COMPARISON: None. IMPRESSION: No acute osseous or soft tissue abnormality. No significant DJD. RIGHT ELBOW 3 VIEWS INDICATION: Fall, right elbow pain and bruising. COMPARISON: None. IMPRESSION: Mild posterior soft tissue swelling is suspected. No acute osseous abnormality. Minimal osteoarthritic changes are noted. Signer Name: Huan Talbot Jr, MD Signed: 09/08/2020 4:42 PM Workstation Name: [id number]
--- NOTE | 2020-09-08 17:11 | Emergency Department Report ---
ED Fall HPI - General Chief Complaint: Extremity Injury, Upper Stated Complaint: FALL @ HOME RT SHOULDER INJURY Source: family Mode of arrival: Wheelchair - History of Present Illness Initial Comments: 85-year-old male presents emerge department status post mechanical trip and fall while trying to go down a step he missed the last step for causing to fall onto his right side landing on his shoulder and elbow resulting in pain which is worsened with range of motion and palpation. Reports no head trauma no loss of consciousness no prolonged time down. No numbness or tingling. No chest pain, no palpitation no shortness of breath no hemoptysis, hematemesis hematochezia, no abdominal pain. MD Complaint: fall Place Fall Occurred: home Loss of Consciousness: none Prolonged Down Time?: no Location - Extremities: Right: Shoulder Severity: moderate Quality: dull - Related Data Home Medications Medication Instructions Recorded Confirmed Last Taken AtorvaSTATin 20 mg PO QHS 06/13/19 06/13/19 06/12/19 21:00 Lisinopril/Hydrochlorothiazide 20 - 25 mg PO BID 06/13/19 06/13/19 06/12/19 21:00 [Zestoretic 20-25 mg] Meclizine HCl [Meclizine CHEW] 25 mg PO TID 06/13/19 06/13/19 06/11/19 21:00 Tamsulosin 0.4 mg PO DAILY 06/13/19 06/13/19 06/12/19 21:00 carvediloL [Coreg] 3.125 mg PO BID 06/13/19 06/13/19 06/11/19 21:00 Previous Rx's Medication Instructions Recorded Last Taken Type Pantoprazole [Protonix TAB] 40 mg PO QDAY #30 tablet 04/11/19 Unknown Rx Acetaminophen/Codeine [Tylenol 1 tab PO Q6H PRN #10 tab 09/08/20 Unknown Rx /Codeine # 3 tab] Allergies Allergy/AdvReac Type Severity Reaction Status Date / Time No Known Allergies Allergy Verified 11/11/18 08:08 ED Review of Systems ROS: Stated complaint: FALL @ HOME RT SHOULDER INJURY Other details as noted in HPI Comment: All other systems reviewed and negative ED Past Medical Hx - Past Medical History Previous Medical History?: Yes Hx Hypertension: Yes Hx Heart Attack/AMI: No Hx GERD: Yes Hx Arthritis: Yes Hx Headaches / Migraines: Yes Hx Asthma: Yes Hx COPD: Yes Hx HIV: No Additional medical history: bladder tumor. elevated cholestrol - Surgical History Past Surgical History?: Yes Hx Open Heart Surgery: Yes ("RING AROUND VALVE", or tell me that the patient had a valvuloplasty ) Hx Internal Defibrillator: No (CARDIOMYOPATHY) Additional Surgical History: eye surgery. mitral valve repair - Social History Smoking Status: Unknown if ever smoked - Medications Home Medications: Home Medications Medication Instructions Recorded Confirmed Last Taken Type Pantoprazole [Protonix TAB] 40 mg PO QDAY #30 tablet 04/11/19 06/13/19 Unknown Rx AtorvaSTATin 20 mg PO QHS 06/13/19 06/13/19 06/12/19 21:00 History Lisinopril/Hydrochlorothiazide 20 - 25 mg PO BID 06/13/19 06/13/19 06/12/19 21:00 History [Zestoretic 20-25 mg] Meclizine HCl [Meclizine CHEW] 25 mg PO TID 06/13/19 06/13/19 06/11/19 21:00 History Tamsulosin 0.4 mg PO DAILY 06/13/19 06/13/19 06/12/19 21:00 History carvediloL [Coreg] 3.125 mg PO BID 06/13/19 06/13/19 06/11/19 21:00 History Acetaminophen/Codeine [Tylenol 1 tab PO Q6H PRN #10 tab 09/08/20 Unknown Rx /Codeine # 3 tab] ED Physical Exam - General Limitations: Physical Limitation General appearance: alert, in no apparent distress - Head Head exam: Present: atraumatic, normocephalic - Eye Eye exam: Present: normal appearance - ENT ENT exam: Present: mucous membranes moist - Neck Neck exam: Present: normal inspection - Respiratory Respiratory exam: Present: normal lung sounds bilaterally. Absent: respiratory distress - Cardiovascular Cardiovascular Exam: Present: regular rate, normal rhythm. Absent: systolic murmur, diastolic murmur, rubs, gallop - GI/Abdominal GI/Abdominal exam: Present: soft, normal bowel sounds - Rectal Rectal exam: Present: deferred - Extremities Exam Extremities exam: Present: normal inspection, tenderness - Expanded Upper Extremity Exam Right Shoulder Exam: Present: tenderness, other (Tenderness to the AC joint. No sulcus sign is noted. Pain with range of motion is noted. Strength is is is normal. No bruising no deformities are present.). Absent: abrasion, laceration, dislocation Elbow exam: Present: tenderness (Tenderness to the low lateral epicondyle region. No tenderness to the olecranon process. No bruising is present. Full range of motion is noted. There is some discomfort with full supination and pronation. No tenderness to the radial head). Absent: crepidus - Back Exam Back exam: Present: normal inspection - Neurological Exam Neurological exam: Present: alert, oriented X3 - Psychiatric Psychiatric exam: Present: normal affect, normal mood - Skin Skin exam: Present: warm, dry, intact, normal color. Absent: rash ED Course Vital Signs 09/08/20 15:42 Temperature 97.9 F Pulse Rate 72 Respiratory 18 Rate Blood Pressure 104/56 [Right] O2 Sat by Pulse 97 Oximetry ED Medical Decision Making - Radiology Data Radiology results: report reviewed [facility] [address] [place] [id number] XRay Report Signed Patient: KATE LEON MR#: [id number] 79 : 1935 Acct:[id number] Age/Sex: 85 / M ADM Date: 09/08/20 Loc: ED Attending Dr: Ordering Physician: SCOTT BLAS Date of Service: 09/08/20 Procedure(s): XR shoulder 2+V RT Accession Number(s): [id number] cc: SCOTT BLAS Fluoro Time In Minutes: RIGHT SHOULDER 3 VIEWS INDICATION: Fall, shoulder pain. COMPARISON: None. IMPRESSION: No acute osseous or soft tissue abnormality. No significant DJD. RIGHT ELBOW 3 VIEWS INDICATION: Fall, right elbow pain and bruising. COMPARISON: None. IMPRESSION: Mild posterior soft tissue swelling is suspected. No acute osseous abnormality. Minimal osteoarthritic changes are noted. Signer Name: Huan Talbot Jr, MD Signed: 09/08/2020 4:42 PM Workstation Name: [id number] Transcribed By: TTR Dictated By: HUAN TALBOT JR, MD Electronically Authenticated By: HUAN TALBOT JR, MD Signed Date/Time: 09/08/20 1642 DD/ 1640 TD/TT: Print - Medical Decision Making 85-year-old male status post mechanical trip and fall while going down a step landing on the ground on the right side resulting in pain to his shoulder and elbow. X-ray shows no acute traumatic injuries there was some degenerative joint disease but no acute processes. Examination shows no limiting factors pain is present. Plan is to ice and treat his his discomfort with medications at home. We can place a sling for comfort Critical care attestation.: If time is entered above; I have spent that time in minutes in the direct care of this critically ill patient, excluding procedure time. ED Disposition Clinical Impression: Contusion of shoulder, Contusion of elbow, right Disposition: DC-01 TO HOME OR SELFCARE Is pt being admited?: No Does the pt Need Aspirin: No Condition: Stable Instructions: Contusion, [id number], Elbow Contusion, How to Use Cold Therapy Prescriptions: Acetaminophen/Codeine [Tylenol /Codeine # 3 tab] 1 tab PO Q6H PRN #10 tab PRN Reason: pain Referrals: FRANCIS MENDOZA MD [Staff Physician] - 3-5 Days
== END 2020-09-08 19:00 | disposition home or self-care (01) ==
LOC: ED 14:23
DX: S40.011A Contusion of right shoulder, initial encounter (principal); S50.01XA Contusion of right elbow, initial encounter; I10 Essential (primary) hypertension; K21.9 Gastro-esophageal reflux disease without esophagitis; M19.91 Primary osteoarthritis, unspecified site; G43.909 Migraine, unspecified, not intractable, without status migrainosus; Z98.890 Other specified postprocedural states; Z79.899 Other long term (current) drug therapy; W19.XXXA Unspecified fall, initial encounter; Y93.89 Activity, other specified; Y92.89 Other specified places as the place of occurrence of the external cause; Y99.8 Other external cause status

== ENCOUNTER 2020-11-21 20:32 | Inpatient (IN) | payer MEDICARE ==
[2020-11-21] MEDS ORDERED: LORazepam 2 MG/ML VIAL ONE (20:35)
[2020-11-21] MEDS ORDERED: LORazepam 2 MG TAB ONE (20:36)
[2020-11-21] MEDS ORDERED: SUCCINYLCHOLINE CHLORIDE 200 MG/10 ML INJ MDV IV ONE (20:36)
[2020-11-21] MEDS ORDERED: LORazepam 2 MG/ML VIAL IV ONE (20:36)
[2020-11-21] MEDS ORDERED: SODIUM CHLORIDE 0.9% 1000 ML 1,000 ML ONE (20:38)
--- NOTE | 2020-11-21 20:46 | Emergency Department Report ---
HPI - General Time Seen by Provider: 11/21/20 20:36 - HPI HPI: Room 22 The patient is an 85-year-old male presenting with a chief complaint of unresponsiveness. EMS states that family states the patient has been unresponsive today in bed. At the time of patient's arrival there is no family present so a clear history of the circumstances surrounding presentation are not yet known. EMS states they found the patient lying in the bed unresponsive hypoxic to the 50s on room air. Patient was being bagged by EMS while being transported to the ED. Upon arrival to the ED the patient was intubated by myself using 8.0 ET tube HPI update: The patient's son is at bedside and states that the patient was in his usual state of health earlier today eating lunch. He states that the patient went to bed at 14: 00 after lunch and family thought he was sleeping. They went to wake him up at 18: 00 but he was unresponsive prompting family to call 911 ED Past Medical Hx - Past Medical History Hx Hypertension: Yes Hx GERD: Yes Hx Arthritis: Yes Hx Headaches / Migraines: Yes Hx Asthma: Yes Hx COPD: Yes Additional medical history: bladder tumor. elevated cholestrol - Surgical History Hx Open Heart Surgery: Yes ("RING AROUND VALVE", or tell me that the patient had a valvuloplasty ) Hx Internal Defibrillator: No (CARDIOMYOPATHY) Additional Surgical History: eye surgery. mitral valve repair - Family History Family history: no significant - Social History Smoking Status: Unknown if ever smoked Substance Use Type: None - Medications Home Medications: Home Medications Medication Instructions Recorded Confirmed Last Taken Type Pantoprazole [Protonix TAB] 40 mg PO QDAY #30 tablet 04/11/19 06/13/19 Unknown Rx AtorvaSTATin 20 mg PO QHS 06/13/19 06/13/19 06/12/19 21:00 History Lisinopril/Hydrochlorothiazide 20 - 25 mg PO BID 06/13/19 06/13/19 06/12/19 21:00 History [Zestoretic 20-25 mg] Meclizine HCl [Meclizine CHEW] 25 mg PO TID 06/13/19 06/13/19 06/11/19 21:00 History Tamsulosin 0.4 mg PO DAILY 06/13/19 06/13/19 06/12/19 21:00 History carvediloL [Coreg] 3.125 mg PO BID 06/13/19 06/13/19 06/11/19 21:00 History Acetaminophen/Codeine [Tylenol 1 tab PO Q6H PRN #10 tab 09/08/20 Unknown Rx /Codeine # 3 tab] ED Review of Systems ROS: Stated complaint: ZULEYKA Other details as noted in HPI Comment: Unobtainable due to pts medical conditions Physical Exam - Physical Exam Physical Exam: GENERAL: The patient is well-developed well-nourished male lying on stretcher being bagged by EMS. [] HEENT: Normocephalic. Atraumatic. NECK: Supple. Trachea midline CHEST/LUNGS: Clear to auscultation. There is no respiratory distress noted. Breath sounds equal bilaterally after intubation by myself HEART/CARDIOVASCULAR: Regular. There is no tachycardia. There is no gallop rub or murmur. ABDOMEN: Abdomen is soft, nontender. Patient has normal bowel sounds. There is no abdominal distention. SKIN: There is no rash. There is no edema. There is no diaphoresis. NEURO: Patient is grossly obtunded, GCS 3 MUSCULOSKELETAL: there is no evidence of acute injury. ED Course - Reevaluation(s) Reevaluation #1: 11/22/20 00:32 Respiratory informed to retract ET tube 2 cm - Consultations Consultation #1: 11/21/20 21:35 Nephrology paged 11/21/20 21:52 EKG and labs discussed with guest experience manager Dr. Vasquez-recommends giving Kayexalate 60 g and 4 hours later given another 30 g. States the potassium should be rechecked in a couple of hours. Will follow - Central Line Placement Right Femoral Consent Obtained: verbal consent (Patient's son), emergent situation Time Out Performed: No Patient Placed on Monitor/Pulse Ox: No MD Prep: mask, gown, gloves Central Line Prep: Chlorhexidine scrub Local Anesthesia Used: Lidocaine 1% Amount of Anesthesia Used (mls): 5 Central Line Lumen Inserted: triple Reason for Insertion: High Alert Medication Bloods Obtained for Lab: No ED Medical Decision Making - Lab Data Result diagrams: 11/21/20 20:50 11/21/20 20:50 Laboratory Tests 11/21/20 11/21/20 11/21/20 20:50 20:50 20:50 WBC 8.7 RBC 3.48 L Hgb 11.1 L Hct 34.3 L MCV 99 H MCH 32 MCHC 32 RDW 15.1 Plt Count 246 Lymph % (Auto) 6.8 L [place] % (Auto) 6.9 Eos % (Auto) 0.2 Baso % (Auto) 0.6 Lymph # (Auto) 0.6 L [place] # (Auto) 0.6 Eos # (Auto) 0.0 Baso # (Auto) 0.1 Seg Neutrophils % 85.5 H Seg Neutrophils # 7.4 PT 13.5 INR 0.98 APTT 32.1 Sodium 130 L Potassium 7.3 H* Chloride 91.1 L Carbon Dioxide 30 Anion Gap 16 BUN 40 H Creatinine 2.1 H Estimated GFR 30 BUN/Creatinine Ratio 19 Glucose 195 H Calcium 9.2 Total Bilirubin 0.40 AST 91 H ALT 65 H Alkaline Phosphatase 80 Total Creatine Kinase 58 CK-MB (CK-2) 2.4 CK-MB (CK-2) Rel Index 4.1 H Troponin T 0.045 H NT-Pro-B Natriuret Pep 6998 H Total Protein 6.4 Albumin 3.7 L Albumin/Globulin Ratio 1.4 Triglycerides 84 Cholesterol 125 LDL Cholesterol Direct 57 HDL Cholesterol 60 H Cholesterol/HDL Ratio 2.08 TSH Free T4 Plasma/Serum Alcohol 11/21/20 11/21/20 20:50 20:50 WBC RBC Hgb Hct MCV MCH MCHC RDW Plt Count Lymph % (Auto) [place] % (Auto) Eos % (Auto) Baso % (Auto) Lymph # (Auto) [place] # (Auto) Eos # (Auto) Baso # (Auto) Seg Neutrophils % Seg Neutrophils # PT INR APTT Sodium Potassium Chloride Carbon Dioxide Anion Gap BUN Creatinine Estimated GFR BUN/Creatinine Ratio Glucose Calcium Total Bilirubin AST ALT Alkaline Phosphatase Total Creatine Kinase CK-MB (CK-2) CK-MB (CK-2) Rel Index Troponin T NT-Pro-B Natriuret Pep Total Protein Albumin Albumin/Globulin Ratio Triglycerides Cholesterol LDL Cholesterol Direct HDL Cholesterol Cholesterol/HDL Ratio TSH 1.290 Free T4 1.18 Plasma/Serum Alcohol < 0.01 - EKG Data -: EKG Interpreted by [place] EKG shows normal: sinus rhythm Rate: normal - EKG Data When compared to previous EKG there are: previous EKG unavailable Interpretation: other (Slightly peaked T waves) - Radiology Data Radiology results: report reviewed (CT head, chest x-ray), image reviewed (CT head, chest x-ray) interpreted by me: Chest x-ray-no definite focal infiltrates. No pneumothorax. ET tube in position [address] [address] Cat Scan Report Signed Patient: KATE LEON MR#: [id number] [birth year] : 1935 Acct:[id number] Age/Sex: 85 / M ADM Date: 11/21/20 Loc: ED Attending Dr: Ordering Physician: JUNI PUENTE MD Date of Service: 11/21/20 Procedure(s): CT head/brain wo con Accession Number(s): [id number] cc: JUNI PUENTE MD CT HEAD WITHOUT CONTRAST INDICATION / CLINICAL INFORMATION: Unresponsive. TECHNIQUE: All CT scans at this location are performed using CT dose reduction for ALARA by means of automated exposure control. COMPARISON: 06/12/2019 FINDINGS: No acute intracranial hemorrhage. Ventricles are normal in size without midline shift or mass effect. No extra-axial fluid collection is seen. There is ethmoid sinus mucosal thickening with mild maxillary sinus disease. Funez-white matter differentiation appears normal. ADDITIONAL FINDINGS: None. IMPRESSION: 1. Sinus disease. No other acute findings. Signer Name: Arcenio Escobedo MD Signed: 11/22/2020 12:22 AM Workstation Name: [id number] Transcribed By: CW Dictated By: NILAM ESCOBEDO MD Electronically Authenticated By: NILAM ESCOBEDO MD Signed Date/Time: 11/22/2021 DD/ TD/TT: Print Cancel [address] [address] XRay Report Signed Patient: KATE LEON MR#: [id number] : 1935 Acct:[id number] Age/Sex: 85 / M ADM Date: 11/21/20 Loc: ED Attending Dr: Ordering Physician: JUNI PUENTE MD Date of Service: 11/21/20 Procedure(s): XR chest 1V ap Accession Number(s): [id number] cc: JUNI PUENTE MD Fluoro Time In Minutes: CHEST 1 VIEW 11/21/2020 7:55 PM INDICATION / CLINICAL INFORMATION: Unresponsive, status post intubation. COMPARISON: 06/12/19 FINDINGS: SUPPORT DEVICES: Endotracheal tube has been placed with the tip just above the level of the flor. HEART / MEDIASTINUM: Stable. LUNGS / PLEURA: No significant pulmonar y or pleural abnormality. No pneumothorax. ADDITIONAL FINDINGS: No significant additional findings. IMPRESSION: 1. Endotracheal tube with the tip just above the flor. Tube could be pulled back about 2 cm for optimal positioning. Signer Name: Hamida Hernandez MD Signed: 11/21/2020 8:59 PM Workstation Name: [id number] Transcribed By: DT Dictated By: Cameron Hernandez MD Electronically Authenticated By: Cameron Hernandez MD Signed Date/Time: 11/21/202058 DD/ 57 TD/TT: - Differential Diagnosis ICH, pneumonia, COPD Critical care attestation.: If time is entered above; I have spent that time in minutes in the direct care of this critically ill patient, excluding procedure time. ED Disposition Clinical Impression: Altered mental status, Hyperkalemia, Renal insufficiency, Hypotension Disposition: -09 OP ADMIT IP TO THIS HOSP Is pt being admited?: Yes Does the pt Need Aspirin: Yes Condition: Serious Time of Disposition: 00:35 (Hospitalist paged (Dr Mandel))
--- NOTE | 2020-11-21 21:04 | XRay Report ---
CHEST 1 VIEW 11/21/2020 7:55 PM INDICATION / CLINICAL INFORMATION: Unresponsive, status post intubation. COMPARISON: 06/12/19 FINDINGS: SUPPORT DEVICES: Endotracheal tube has been placed with the tip just above the level of the lfor. HEART / MEDIASTINUM: Stable. LUNGS / PLEURA: No significant pulmonary or pleural abnormality. No pneumothorax. ADDITIONAL FINDINGS: No significant additional findings. IMPRESSION: 1. Endotracheal tube with the tip just above the flor. Tube could be pulled back about 2 cm for opt imal positioning. Signer Name: Hamida Hernandez MD Signed: 11/21/2020 8:59 PM Workstation Name: [id number]
[2020-11-21 21:07] LABS: Basophils # (Auto) 0.1 K/mm3 (0.0-0.1); Basophils % (Auto) 0.6 % (0.0-1.8); Eosinophils % (Auto) 0.2 % (0.0-4.3); Hematocrit 34.3 % (35.5-45.6); Hemoglobin 11.1 gm/dl (11.8-15.2); Lymphocytes # (Auto) 0.6 K/mm3 (1.2-5.4); Lymphocytes % (Auto) 6.8 % (13.4-35.0); Mean Corpuscular HGB Conc 32 % (32-34); Mean Corpuscular Volume 99 fl (84-94); Monocytes # (Auto) 0.6 K/mm3 (0.0-0.8); Monocytes % (Auto) 6.9 % (0.0-7.3); Platelet Count 246 K/mm3 (140-440); Red Blood Count 3.48 M/mm3 (3.65-5.03); Red Cell Distribution Width 15.1 % (13.2-15.2)
[2020-11-21] MEDS ORDERED: SODIUM CHLORIDE 0.9% 1000 ML 1,000 ML IV ONE ×2 (21:09)
[2020-11-21 21:17] LABS: INR 0.98 (0.87-1.13)
[2020-11-21 21:18] LABS: Partial Thromboplastin Time 32.1 Sec. (24.2-36.6)
[2020-11-21 21:26] LABS: Albumin 3.7 g/dL (3.9-5); Calcium 9.2 mg/dL (8.4-10.2); Creatine Kinase MB 2.4 ng/mL (0.0-4.0)
[2020-11-21] MEDS ORDERED: INSULIN REGULAR, HUMAN 100 UNITS/1 ML IV ONE (21:33)
[2020-11-21] MEDS ORDERED: DEXTROSE 50% IN WATER (25GM) 50 ML SYRINGE IV ONE (21:33)
[2020-11-21] MEDS ORDERED: CALCIUM GLUCONATE 1,000 MG in SODIUM CHLORIDE 0.9% 100 ML IV ONE (21:33)
[2020-11-21] MEDS ORDERED: SODIUM BICARB 8.4% 50 MEQ/50 ML SYRINGE IV ONE (21:35)
[2020-11-21 21:36] LABS: Free T4 (Free Thyroxine) 1.18 ng/dL (0.76-1.46)
[2020-11-21 21:43] LABS: Chol/HDL Ratio 2.08 %
[2020-11-21] MEDS ORDERED: SODIUM POLYSTYRENE 15 GM/60 ML ORAL LIQD PO ONE (21:47)
[2020-11-21] MEDS ORDERED: ALBUTEROL 2.5 MG/3 ML NEBU IH ONE (21:47)
[2020-11-21] MEDS ORDERED: DOPamine/D5W 800 MG/250 ML 800 MG/250 ML BAG IV ONE (21:57)
--- NOTE | 2020-11-21 23:55 | Ultrasound Report ---
Renal ultrasound INDICATION: Acute kidney disease FINDINGS: Right kidney measures 10.9 cm in left kidney 8.5 cm. Cortex appears normal without signific ant atrophy. No stone or mass is seen. Paulson catheter is noted. IMPRESSION: Asymmetric renal size. No hydronephrosis. No acute findings. Paulson catheter is noted. Signer Name: Arcenio Escobedo MD Signed: 11/21/2020 11:50 PM Workstation Name: [id number]
--- NOTE | 2020-11-22 00:26 | Cat Scan Report ---
CT HEAD WITHOUT CONTRAST INDICATION / CLINICAL INFORMATION: Unresponsive. TECHNIQUE: All CT scans at this location are performed using CT dose reduction for ALARA by means of automated e xposure control. COMPARISON: 06/12/2019 FINDINGS: No acute intracranial hemorrhage. Ventricles are normal in size without midline shift or mass effect. No extra-axial fluid collection is seen. There is ethmoid sinus mucosal thickening with mild maxilla ry sinus disease. Funez-white matter differentiation appears normal. ADDITIONAL FINDINGS: None. IMPRESSION: 1. Sinus disease. No other acute findings. Signer Name: Arcenio Escobedo MD Signed: 11/22/2020 12:22 AM Workstation Name: [id number]
[2020-11-22] MEDS ORDERED: PIPERACILLIN/TAZOBACTAM 3.375 3.375 GM/50 ML BAG IV ONE (00:34)
[2020-11-22] MEDS ORDERED: ASPIRIN 325 MG TAB FEEDTUBE ONE (00:35)
[2020-11-22] MEDS ORDERED: MIDAZOLAM 2 MG/2 ML INJ IV PRN (00:38)
[2020-11-22] MEDS ORDERED: MINERAL OIL/PETROLATUM, WHITE OPHTH OINT 3.5 GM OU PRN (00:38)
[2020-11-22] MEDS ORDERED: LIP THERAPY VASELINE TP PRN (00:38)
[2020-11-22 00:45] LABS: Bilirubin,Urine NEG (Negative); Blood,Urine NEG (Negative); Color,Urine Yellow (Yellow); Mucus,Urine FEW /HPF; Urobilinogen,Urine < 2.0 mg/dL (<2.0)
[2020-11-22 00:50] LABS: Creatinine,Urine 158.2 mg/dL (0.1-20.0)
--- NOTE | 2020-11-22 00:50 | XRay Report ---
CHEST 1 VIEW 11/21/2020 11:42 PM INDICATION / CLINICAL INFORMATION: tube placement. COMPARISON: 11/21/2020 FINDINGS: SUPPORT DEVICES: NG tube extends within the stomach HEART / MEDIASTINUM: No significant abnormality. LUNGS / PLEURA: Mild increased interstitial prominence appears unchanged No pneumothorax. Signer Name: Arcenio Escobedo MD Signed: 11/22/2020 12:46 AM Workstation Name: [id number]
[2020-11-22 00:52] LABS: Fractional Sodium Excretion 0.3
[2020-11-22 00:55] LABS: Amphetamine Screen,Urine PRESUMPTIVE NEGATIVE; Benzodiazepines Screen,Urine PRESUMPTIVE NEGATIVE; Cannabinoid Screen,Urine PRESUMPTIVE NEGATIVE; Cocaine Screen,Urine PRESUMPTIVE NEGATIVE; Methadone Screen,Urine PRESUMPTIVE NEGATIVE; Opiate Screen,Urine PRESUMPTIVE NEGATIVE
[2020-11-22] MEDS ORDERED: MIDAZOLAM 100 MG in SODIUM CHLORIDE 0.9% 80 ML IV SCH (01:00)
[2020-11-22] MEDS ORDERED: ACETAMINOPHEN 325 MG TAB PO PRN ×2 (01:19→01:25)
[2020-11-22] MEDS ORDERED: ALBUTEROL 2.5 MG/3 ML NEBU IH PRN (01:19)
[2020-11-22] MEDS ORDERED: ONDANSETRON 4 MG/2 ML INJ IV PRN (01:19)
[2020-11-22] MEDS ORDERED: traMADol 50 MG TAB PO PRN (01:25)
--- NOTE | 2020-11-22 01:33 | History and Physical Report ---
History of Present Illness Date of examination: 11/22/20 Date of admission: 11/22/20 00:40 Chief complaint: Unresponsiveness History of present illness: 85-year-old male with past medical history of hypertension, GERD, arthritis, migraine COPD asthma was brought to the emergency room because of unresponsiveness. EMS states that family states the patient the patient was in his usual state of health earlier today eating lunch. He states that the patient went to bed at 14: 00 after lunch and family thought he was sleeping. They went to wake him up at 18: 00 but he was unresponsive prompting family to call 911 EMS states they found the patient lying in the bed unresponsive hypoxic to the 50s on room air. Patient was being bagged by EMS while being transported to the ED. Upon arrival to the ED the patient was intubated by emergency room physician In the emergency room patient is found to have potassium of 7.3 initially later potassium was 5.1 also BUN 40 and creatinine 2.1 lactic acid 2.10 troponin 0 0.045 and proBNP 6998 Past History Past Medical History: arthritis, COPD, GERD, hypertension, hyperlipidemia (Asthma headache bladder tumor) Medications and Allergies Allergies Allergy/AdvReac Type Severity Reaction Status Date / Time No Known Allergies Allergy Verified 11/11/18 08:08 Home Medications Medication Instructions Recorded Confirmed Last Taken Type Pantoprazole [Protonix TAB] 40 mg PO QDAY #30 tablet 04/11/19 06/13/19 Unknown Rx AtorvaSTATin 20 mg PO QHS 06/13/19 06/13/19 06/12/19 21:00 History Lisinopril/Hydrochlorothiazide 20 - 25 mg PO BID 06/13/19 06/13/19 06/12/19 21:00 History [Zestoretic 20-25 mg] Meclizine HCl [Meclizine CHEW] 25 mg PO TID 06/13/19 06/13/19 06/11/19 21:00 History Tamsulosin 0.4 mg PO DAILY 06/13/19 06/13/19 06/12/19 21:00 History carvediloL [Coreg] 3.125 mg PO BID 06/13/19 06/13/19 06/11/19 21:00 History Acetaminophen/Codeine [Tylenol 1 tab PO Q6H PRN #10 tab 09/08/20 Unknown Rx /Codeine # 3 tab] Active Meds: Active Medications Acetaminophen (Acetaminophen 325 Mg Tab) 650 mg PO Q4H PRN PRN Reason: Pain MILD(1-3)/Fever >100.5/BRYAN Acetaminophen (Acetaminophen 325 Mg Tab) 650 mg PO Q6H PRN PRN Reason: Pain, Mild (1-3) Albuterol (Albuterol 2.5 Mg/3 Ml Nebu) 2.5 mg IH Q4HRT PRN PRN Reason: Shortness Of Breath Albuterol/Ipratropium (Ipratropium/Albuterol Sulfate 3 Ml Ampul.Neb) 1 ampul IH Q6HRT TERES[facility] Aspirin (Aspirin 81 Mg Tab Chew) 81 mg PO QDAY TERESA Atorvastatin Calcium (Atorvastatin 10 Mg Tab) 20 mg PO QHS TERESA Atorvastatin Calcium (Atorvastatin 40 Mg Tab) 40 mg PO QHS TER[facility]A Carvedilol (Carvedilol 3.125 Mg Tab) 3.125 mg PO BID TER[facility]A Famotidine (Famotidine 20 Mg/2 Ml Inj) 20 mg IV DAILY TERESA Famotidine (Famotidine 20 Mg/2 Ml Inj) 20 mg IV BID TER[facility]A Heparin Sodium (Porcine) (Heparin 5,000 Unit/1 Ml Vial) 5,000 unit SUB-Q Q8HR TERESA Hydralazine HCl (Hydralazine 20 Mg/1 Ml Inj) 10 mg IV Q6H PRN PRN Reason: Blood Pressure Hydrophilic Ointment (Lip Therapy Vaseline) 1 applic TP Q2HR PRN PRN Reason: Dry Lips Dopamine HCl/Dextrose (Intropin Drip 800 Mg/D5w 250 Ml) 800 mg in 250 mls @ 3.049 mls/hr IV TITR ONE; Protocol Stop: 11/25/20 07:56 Last Admin: 11/21/20 23:00 Dose: 2 mcg/kg/min, 3.049 mls/hr Documented by: Midazolam HCl 100 mg/ Sodium (Chloride) 100 mls @ 2 mls/hr IV TITR TERESA; Prot ocol Dextrose/Sodium Chloride (D5ns) 1,000 mls @ 125 mls/hr IV DIRECT TERESA Ceftriaxone Sodium (Rocephin/Ns 2 Gm/100 Ml) 2 gm in 100 mls @ 200 mls/hr IV Q24H TERESA; Protocol Midazolam HCl (Midazolam 2 Mg/2 Ml Inj) 2 mg IV Q10MIN PRN PRN Reason: Sedation Miscellaneous Medication (Tamsulosin) 0.4 mg PO DAILY TERESA Multi-Ingred Cream/Lotion/Oil/Oint (Mineral Oil/Petrolatum, White Ophth Oint 3.5 Gm) 1 applic OU Q4HR PRN PRN Reason: Dry Eye(s) Nitroglycerin (Nitroglycerin 0.4 Mg Tab Subl) 0.4 mg SL Q5M PRN PRN Reason: Chest Pain Ondansetron HCl (Ondansetron 4 Mg/2 Ml Inj) 4 mg IV Q8H PRN PRN Reason: Nausea And Vomiting Pantoprazole Sodium (Pantoprazole 40 Mg Tab) 40 mg PO QDAY TERESA Senna/Docusate Sodium (Sennosides/Docusate Sodium 8.6/50 Mg Tab) 1 tab FEEDTUBE BID TERESA Sodium Chloride (Sodium Chloride 0.9% 10 Ml Flush Syringe) 10 ml IV BID TERESA Sodium Chloride (Sodium Chloride 0.9% 10 Ml Flush Syringe) 10 ml IV PRN PRN PRN Reason: LINE FLUSH Sodium Chloride (Sodium Chloride 0.9% 10 Ml Flush Syringe) 10 ml IV PRN PRN PRN Reason: LINE FLUSH Tramadol HCl (Tramadol 50 Mg Tab) 50 mg PO Q6H PRN PRN Reason: Pain, Moderate (4-6) Review of Systems Constitutional: other (Unresponsiveness) Neurological: change in mentation Exam - Constitutional Vitals: Temp Pulse Resp BP Pulse Ox 67 24 102/61 100 11/22/20 00:26 11/22/20 00:26 11/22/20 00:26 11/22/20 00:26 General appearance: Present: mild distress, well-nourished - EENT Eyes: Present: PERRL ENT: hearing intact, clear oral mucosa - Neck Neck: Present: supple, normal ROM - Respiratory Respiratory effort: normal Respiratory: bilateral: diminished - Cardiovascular Heart Sounds: Present: S1 & S2. Absent: rub, click - Extremities Extremities: pulses symmetrical, No edema Peripheral Pulses: within normal limits - Abdominal General gastrointestinal: Present: soft, non-tender, non-distended, normal bowel sounds Male genitourinary: Present: normal - Integumentary Integumentary: Present: clear, warm, dry - Musculoskeletal Musculoskeletal: gait normal, strength equal bilaterally - Psychiatric Psychiatric: appropriate mood/affect, intact judgment & insight - Neurologic Neurologic: CNII-XII intact, other (Patient is grossly obtunded GCS 3) HEART Score - HEART Score Troponin: Troponin T 0.045 ng/mL (0.00-0.029) H 11/21/20 20:50 Results - Labs CBC & Chem 7: 11/21/20 20:50 11/22/20 00:23 Labs: Laboratory Last Values WBC 8.7 K/mm3 (4.5-11.0) 11/21/20 20:50 RBC 3.48 M/mm3 (3.65-5.03) L 11/21/20 20:50 Hgb 11.1 gm/dl (11.8-15.2) L 11/21/20 20:50 Hct 34.3 % (35.5-45.6) L 11/21/20 20:50 MCV 99 fl (84-94) H 11/21/20 20:50 MCH 32 pg (28-32) 11/21/20 20:50 MCHC 32 % (32-34) 11/21/20 20:50 RDW 15.1 % (13.2-15.2) 11/21/20 20:50 Plt Count 246 K/mm3 (140-440) 11/21/20 20:50 Lymph % (Auto) 6.8 % (13.4-35.0) L 11/21/20 20:50 [place] % (Auto) 6.9 % (0.0-7.3) 11/21/20 20:50 Eos % (Auto) 0.2 % (0.0-4.3) 11/21/20 20:50 Baso % (Auto) 0.6 % (0.0-1.8) 11/21/20 20:50 Lymph # (Auto) 0.6 K/mm3 (1.2-5.4) L 11/21/20 20:50 [place] # (Auto) 0.6 K/mm3 (0.0-0.8) 11/21/20 20:50 Eos # (Auto) 0.0 K/mm3 (0.0-0.4) 11/21/20 20:50 Baso # (Auto) 0.1 K/mm3 (0.0-0.1) 11/21/20 20:50 Seg Neutrophils % 85.5 % (40.0-70.0) H 11/21/20 20:50 Seg Neutrophils # 7.4 K/mm3 (1.8-7.7) 11/21/20 20:50 PT 13.5 Sec. (12.2-14.9) 11/21/20 20:50 INR 0.98 (0.87-1.13) 11/21/20 20:50 APTT 32.1 Sec. (24.2-36.6) 11/21/20 20:50 Sodium 130 mmol/L (137-145) L 11/21/20 20:50 Potassium 5.1 mmol/L (3.6-5.0) H D 11/22/20 00:23 Chloride 91.1 mmol/L (98-107) L 11/21/20 20:50 Carbon Dioxide 30 mmol/L (22-30) 11/21/20 20:50 Anion Gap 16 mmol/L 11/21/20 20:50 BUN 40 mg/dL (9-20) H 11/21/20 20:50 Creatinine 2.1 mg/dL (0.8-1.3) H 11/21/20 20:50 Estimated GFR 30 ml/min 11/21/20 20:50 BUN/Creatinine Ratio 19 % 11/21/20 20:50 Glucose 195 mg/dL (75-100) H 11/21/20 20:50 Lactic Acid 2.10 mmol/L (0.7-2.0) H* 11/22/20 00:40 Calcium 9.2 mg/dL (8.4-10.2) 11/21/20 20:50 Total Bilirubin 0.40 mg/dL (0.1-1.2) 11/21/20 20:50 AST 91 units/L (5-40) H 11/21/20 20:50 ALT 65 units/L (7-56) H 11/21/20 20:50 Alkaline Phosphatase 80 units/L (35-129) 11/21/20 20:50 Total Creatine Kinase 58 units/L (55-170) 11/21/20 20:50 CK-MB (CK-2) 2.4 ng/mL (0.0-4.0) 11/21/20 20:50 CK-MB (CK-2) Rel Index 4.1 (0-4) H 11/21/20 20:50 Troponin T 0.045 ng/mL (0.00-0.029) H 11/21/20 20:50 NT-Pro-B Natriuret Pep 6998 pg/mL (0-900) H 11/21/20 20:50 Total Protein 6.4 g/dL (6.3-8.2) 11/21/20 20:50 Albumin 3.7 g/dL (3.9-5) L 11/21/20 20:50 Albumin/Globulin Ratio 1.4 % 11/21/20 20:50 Triglycerides 84 mg/dL (2-149) 11/21/20 20:50 Cholesterol 125 mg/dL (50-199) 11/21/20 20:50 LDL Cholesterol Direct 57 mg/dL (50-130) 11/21/20 20:50 HDL Cholesterol 60 mg/dL (40-59) H 11/21/20 20:50 Cholesterol/HDL Ratio 2.08 % 11/21/20 20:50 TSH 1.290 mlU/mL (0.270-4.200) 11/21/20 20:50 Free T4 1.18 ng/dL (0.76-1.46) 11/21/20 20:50 Urine Color Yellow (Yellow) 11/22/20 00:11 Urine Turbidity Slightly-cloudy (Clear) 11/22/20 00:11 Urine pH 5.0 (5.0-7.0) 11/22/20 00:11 Ur Specific [place] 1.015 (1.003-1.030) 11/22/20 00:11 Urine Protein 30 mg/dl mg/dL (Negative) 11/22/20 00:11 Urine Glucose (UA) 50 mg/dL (Negative) 11/22/20 00:11 Urine Ketones Neg mg/dL (Negative) 11/22/20 00:11 Urine Blood Neg (Negative) 11/22/20 00:11 Urine Nitrite Neg (Negative) 11/22/20 00:11 Urine Bilirubin Neg (Negative) 11/22/20 00:11 Urine Urobilinogen < 2.0 mg/dL (<2.0) 11/22/20 00:11 Ur Leukocyte Esterase Neg (Negative) 11/22/20 00:11 Urine WBC (Auto) 2.0 /HPF (0.0-6.0) 11/22/20 00:11 Urine RBC (Auto) 2.0 /HPF (0.0-6.0) 11/22/20 00:11 U Epithel Cells (Auto) < 1.0 /HPF (0-13.0) 11/22/20 00:11 Urine Mucus Few /HPF 11/22/20 00:11 Urine Creatinine 158.2 mg/dL (0.1-20.0) H 11/22/20 00:11 Urine Sodium 39 mmol/L 11/22/20 00:11 Fraction Sodium Excret 0.3 11/22/20 00:11 Urine Opiates Screen Presumptive negative 11/22/20 00:11 Urine Methadone Screen Presumptive negative 11/22/20 00:11 Ur Barbiturates Screen Presumptive negative 11/22/20 00:11 Ur Phencyclidine Scrn Presumptive negative 11/22/20 00:11 Ur Amphetamines Screen Presumptive negative 11/22/20 00:11 U Benzodiazepines Scrn Presumptive negative 11/22/20 00:11 Urine Cocaine Screen Presumptive negative 11/22/20 00:11 U Marijuana (THC) Screen Presumptive negative 11/22/20 00:11 Drugs of Abuse Note Disclamer 11/22/20 00:11 Plasma/Serum Alcohol < 0.01 % (0-0.07) 11/21/20 20:50 - Imaging and Cardiology Chest x-ray: report reviewed CT Scan - head: report reviewed Assessment and Plan VTE prophylaxis?: Chemical Plan of care discussed with patient/family: Yes - Patient Problems (1) Acute respiratory failure with hypoxia Current Visit: No Status: Resolved Plan to address problem: Admit the patient to the ICU. Patient is a status post intubation. DuoNeb by nebulizer every 4 hours. Albuterol via nebulizer every 4 hours as needed. Will consult pulmonary and critical care evaluation we will recheck the ABG in the morning (2) Acute metabolic encephalopathy Current Visit: Yes Status: Acute Plan to address problem: Most likely secondary to respiratory failure CARRIE elevated troponin. We will put the patient D5 normal saline at the rate of 100 cc/h we will monitor the patient closely with. Reconsult critical care cardiology and nephrology. Recheck CBC BMP in the morning (3) Elevated troponin Current Visit: Yes Status: Acute Plan to address problem: Aspirin 81 mg p.o. daily. Nitroglycerin as needed. Lipitor 40 mg p.o. daily. Serial cardiac enzyme. Echocardiogram. Cardiology consult (4) Hypertension Current Visit: Yes Status: Acute Plan to address problem: Stable. We will monitor the blood pressure closely. We will continue the home medication. Hydralazine 10 mg IV every 6 hours as needed (5) Hyperkalemia Current Visit: Yes Status: Acute Plan to address problem: Patient already get D50 IV insulin Kayexalate. Repeat potassium is 5.1. Will consult nephrology for evaluation. Recheck BMP in the morning (6) Acute renal insufficiency Current Visit: Yes Status: Acute Plan to address problem: Avoid nephrotoxic drug. D5 normal saline at the rate of 100 cc/h. Renally dose medication. Nephrology consult. Repeat BMP in the morning (7) Lactic acidosis Current Visit: Yes Status: Acute Plan to address problem: Rocephin 2 g IV daily. We do the blood cultures sputum culture. Critical care evaluation. Recheck lactic acid CBC BMP in the morning (8) DVT prophylaxis Current Visit: No Status: Acute Plan to address problem: Heparin 5000 units subcu every 8 hours for DVT prophylaxis. Pepcid 20 mg IV every 12 hours for GI prophylaxis. Patient is a full code
[2020-11-22 01:51] LABS: Basophils # (Auto) 0.1 K/mm3 (0.0-0.1); Eosinophils % (Auto) 0.2 % (0.0-4.3); Hematocrit 34.1 % (35.5-45.6); Lymphocytes # (Auto) 1.7 K/mm3 (1.2-5.4); Lymphocytes % (Auto) 12.3 % (13.4-35.0); Mean Corpuscular HGB Conc 32 % (32-34); Mean Corpuscular Volume 97 fl (84-94); Monocytes % (Auto) 14.2 % (0.0-7.3); Platelet Count 258 K/mm3 (140-440); Red Blood Count 3.53 M/mm3 (3.65-5.03); Red Cell Distribution Width 14.5 % (13.2-15.2)
[2020-11-22 02:10] LABS: Calcium 8.9 mg/dL (8.4-10.2)
[2020-11-22] MEDS: IPRATROPIUM/ALBUTEROL SULFATE 3 ML AMPUL.NEB IH SCH ×4 (02:58→19:21)
[2020-11-22] MEDS: cefTRIAXone/NS 2 GM/100 ML 2 GM/100 ML BAG IV SCH (03:56)
[2020-11-22] MEDS: D5W/0.9% NACL 1,000 ML IV SCH ×3 (03:56→21:33)
[2020-11-22] MEDS: HEPARIN 5,000 UNIT/1 ML VIAL SUB-Q SCH ×3 (05:24→21:35)
[2020-11-22 05:49] LABS: Bilirubin,Urine NEG (Negative); Blood,Urine LG (Negative); Color,Urine Yellow (Yellow); Hyaline Casts,Urine 4 /LPF; Mucus,Urine 1+ /HPF; Urobilinogen,Urine < 2.0 mg/dL (<2.0)
[2020-11-22 06:05] LABS: Calcium 8.2 mg/dL (8.4-10.2)
[2020-11-22] MEDS ORDERED: fentaNYL 100 MCG/2 ML INJ IV PRN (07:48)
[2020-11-22] MEDS ORDERED: fentaNYL DRIP Premix 2,000 MCG/100 ML BAG IV SCH (08:00)
[2020-11-22] MEDS ORDERED: SIMPLE SYRUP 15 ML FEEDTUBE PRN ×2 (09:07)
[2020-11-22] MEDS ORDERED: SODIUM BICARBONATE 325 MG TAB FEEDTUBE PRN (09:07)
[2020-11-22] MEDS ORDERED: LIPASE 10,500/PROTEASE 25,000/AMYLASE 43,750 (UNITS) DR CAP FEEDTUBE PRN (09:07)
--- NOTE | 2020-11-22 09:29 | Consultation ---
History of Present Illness Consult date: 11/22/20 Reason for consult: hypoxemia History of present illness: 85 y/o Vincentian male brought in unresponsive by EMS with sats in the 50's on room air per report. Intubated by ED and then placed on versed drip. Not sure why given his unresponsive nature. Currently on PEEP of 6 and FiO2 of 60%. NO Sat on monitor and still sedated but now Versed is down to 1. No family present at bedside. Not on any pressors. Had renal failure on admit that is improving. CXR shows cardiomegaly which is not new with some interstitial edema. BNP was >6k. Remainder of review is unobtainable as patient is on vent and only speaks Vincentian. He also has COPD and has been seen by the other pulmonary group and us in the past as well. Past History Past Medical History: arthritis, COPD, GERD, hypertension, hyperlipidemia (Asthma headache bladder tumor) Past Surgical History: Other (some form of valve repair or plasty, not exactly sure.) Social history: other (unable to obtain) Family history: no significant family history Medications and Allergies Allergies Allergy/AdvReac Type Severity Reaction Status Date / Time No Known Allergies Allergy Verified 11/11/18 08:08 Home Medications Medication Instructions Recorded Confirmed Last Taken Type Pantoprazole [Protonix TAB] 40 mg PO QDAY #30 tablet 04/11/19 11/22/20 Unknown Rx AtorvaSTATin 20 mg PO QHS 06/13/19 11/22/20 06/12/19 21:00 History Tamsulosin 0.4 mg PO DAILY 06/13/19 11/22/20 06/12/19 21:00 History carvediloL [Coreg] 3.125 mg PO BID 06/13/19 11/22/20 06/11/19 21:00 History Gabapentin 300 mg PO BID 11/22/20 11/22/20 Unknown History Active Meds: Active Medications Acetaminophen (Acetaminophen 325 Mg Tab) 650 mg PO Q4H PRN PRN Reason: Pain MILD(1-3)/Fever >100.5/BRYAN Albuterol (Albuterol 2.5 Mg/3 Ml Nebu) 2.5 mg IH Q4HRT PRN PRN Reason: Shortness Of Breath Albuterol/Ipratropium (Ipratropium/Albuterol Sulfate 3 Ml Ampul.Neb) 1 ampul IH Q6HRT [facility] Last Admin: 11/22/20 07:28 Dose: 1 ampul Documented by: Lipase/Protease/Amylase (Lipase 10,500/Protease 25,000/Amylase 43,750 (Units) Dr Cyr) 1 each FEEDTUBE PRN PRN PRN Reason: For Clogged Feeding Tube Aspirin (Aspirin 81 Mg Tab Chew) 81 mg PO QDAY [facility] Atorvastatin Calcium (Atorvastatin 40 Mg Tab) 40 mg PO QHS [facility] Carvedilol (Carvedilol 3.125 Mg Tab) 3.125 mg PO BID [facility] Fentanyl (Fentanyl 100 Mcg/2 Ml Inj) 50 mcg IV Q10MIN PRN PRN Reason: ANALGESIA Heparin Sodium (Porcine) (Heparin 5,000 Unit/1 Ml Vial) 5,000 unit SUB-Q Q8HR [facility] Last Admin: 11/22/20 05:24 Dose: 5,000 unit Documented by: Hydralazine HCl (Hydralazine 20 Mg/1 Ml Inj) 10 mg IV Q6H PRN PRN Reason: Blood Pressure Hydrophilic Ointment (Lip Therapy Vaseline) 1 applic TP Q2HR PRN PRN Reason: Dry Lips Dextrose/Sodium Chloride (D5ns) 1,000 mls @ 125 mls/hr IV DIRECT [facility] Last Admin: 11/22/20 03:56 Dose: 125 mls/hr Documented by: Ceftriaxone Sodium (Rocephin/Ns 2 Gm/100 Ml) 2 gm in 100 mls @ 200 mls/hr IV Q24H [facility]; Protocol Last Admin: 11/22/20 03:56 Dose: 200 mls/hr Documented by: Fentanyl Citrate (Fentanyl Drip Premix) 2,000 mcg in 100 mls @ 4.065 mls/hr IV TITR [facility]; Protocol Propofol (Diprivan 10 Mg/Ml) 1,000 mg in 100 mls @ 2.439 mls/hr IV TITR [facility]; Protocol Multi-Ingred Cream/Lotion/Oil/Oint (Mineral Oil/Petrolatum, White Ophth Oint 3.5 Gm) 1 applic OU Q4HR PRN PRN Reason: Dry Eye(s) Nitroglycerin (Nitroglycerin 0.4 Mg Tab Subl) 0.4 mg SL Q5M PRN PRN Reason: Chest Pain Ondansetron HCl (Ondansetron 4 Mg/2 Ml Inj) 4 mg IV Q8H PRN PRN Reason: Nausea And Vomiting Pantoprazole Sodium (Pantoprazole 40 Mg Tab) 40 mg PO QDAY [facility] Senna/Docusate Sodium (Sennosides/Docusate Sodium 8.6/50 Mg Tab) 1 tab FEEDTUBE BID [facility] Simple Syrup (Simple Syrup 15 Ml) 15 ml FEEDTUBE PRN PRN PRN Reason: Hypoglycemia Simple Syrup (Simple Syrup 15 Ml) 30 ml FEEDTUBE PRN PRN PRN Reason: Hypoglycemia Sodium Bicarbonate (Sodium Bicarbonate 325 Mg Tab) 325 mg FEEDTUBE PRN PRN PRN Reason: For Clogged Feeding Tube Sodium Chloride (Sodium Chloride 0.9% 10 Ml Flush Syringe) 10 ml IV BID [facility] Sodium Chloride (Sodium Chloride 0.9% 10 Ml Flush Syringe) 10 ml IV PRN PRN PRN Reason: LINE FLUSH Tamsulosin HCl (Tamsulosin 0.4 Mg Cap) 0.4 mg PO DAILY [facility] Tramadol HCl (Tramadol 50 Mg Tab) 50 mg PO Q6H PRN PRN Reason: Pain, Moderate (4-6) Review of Systems ROS unobtainable: due to endotracheal tube, due to mental status Physical Examination Vital signs: Vital Signs Pulse Ox 99 11/21/20 20:38 General appearance: comatose (secondary to versed drip) Eyes: non-icteric ENT: other (orally intubated and sedated) Neck: supple, other (large in circumference) Effort: normal Ascultation: Bilateral: diminished breath sounds Percussion: Bilateral: not dull Cardiovascular: regular rate and rhythm Gastrointestinal: soft, non-tender Extremities: no cyanosis unable to assess Results - Laboratory Findings CBC and BMP: 11/22/20 01:37 11/22/20 05:00 ABG ABG pH 7.334 (7.320-7.450) 11/22/20 03:20 POC ABG pCO2 58.4 mmHg (32.0-48.0) H 11/22/20 03:20 POC ABG pO2 91.2 mmHg (83-108) 11/22/20 03:20 POC ABG HCO3 30.4 11/22/20 03:20 ABG O2 Saturation 96.7 (0-100) 11/22/20 03:20 PT/INR, D-dimer PT 13.5 Sec. (12.2-14.9) 11/21/20 20:50 INR 0.98 (0.87-1.13) 11/21/20 20:50 Abnormal lab findings: Abnormal Labs 11/21/20 11/21/20 11/22/20 20:50 20:50 00:11 WBC RBC 3.48 L Hgb 11.1 L Hct 34.3 L MCV 99 H Lymph % (Auto) 6.8 L [place] % (Auto) Lymph # (Auto) 0.6 L [place] # (Auto) Seg Neutrophils % 85.5 H Seg Neutrophils # POC ABG pCO2 ABG Hemoglobin ABG Sodium ABG Potassium Sodium 130 L Potassium 7.3 H* Chloride 91.1 L Carbon Dioxide BUN 40 H Creatinine 2.1 H Glucose 195 H Lactic Acid Calcium AST 91 H ALT 65 H CK-MB (CK-2) Rel Index 4.1 H Troponin T 0.045 H NT-Pro-B Natriuret Pep 6998 H Albumin 3.7 L HDL Cholesterol 60 H Urine WBC (Auto) Urine Creatinine 158.2 H 11/22/20 11/22/20 11/22/20 00:23 00:40 01:37 WBC 14.1 H RBC 3.53 L Hgb 11.0 L Hct 34.1 L MCV 97 H Lymph % (Auto) 12.3 L [place] % (Auto) 14.2 H Lymph # (Auto) [place] # (Auto) 2.0 H Seg Neutrophils % 72.3 H Seg Neutrophils # 10.2 H POC ABG pCO2 ABG Hemoglobin ABG Sodium ABG Potassium Sodium Potassium 5.1 H D Chloride Carbon Dioxide BUN Creatinine Glucose Lactic Acid 2.10 H* Calcium AST ALT CK-MB (CK-2) Rel Index Troponin T NT-Pro-B Natriuret Pep Albumin HDL Cholesterol Urine WBC (Auto) Urine Creatinine 11/22/20 11/22/20 11/22/20 01:37 03:20 05:00 WBC RBC Hgb Hct MCV Lymph % (Auto) [place] % (Auto) Lymph # (Auto) [place] # (Auto) Seg Neutrophils % Seg Neutrophils # POC ABG pCO2 58.4 H ABG Hemoglobin 11.1 L ABG Sodium 135.1 L ABG Potassium 5.0 H Sodium Potassium 5.1 H Chloride Carbon Dioxide 31 H BUN 40 H Creatinine 2.0 H Glucose 49 L Lactic Acid Calcium AST ALT CK-MB (CK-2) Rel Index Troponin T NT-Pro-B Natriuret Pep Albumin HDL Cholesterol Urine WBC (Auto) 33.0 H Urine Creatinine 11/22/20 11/22/20 11/22/20 05:00 05:00 05:00 WBC RBC Hgb Hct MCV Lymph % (Auto) [place] % (Auto) Lymph # (Auto) [place] # (Auto) Seg Neutrophils % Seg Neutrophils # POC ABG pCO2 ABG Hemoglobin ABG Sodium ABG Potassium Sodium 136 L Potassium Chloride 97.8 L Carbon Dioxide BUN 41 H Creatinine 1.8 H 1.8 H Glucose Lactic Acid Calcium 8.2 L AST ALT CK-MB (CK-2) Rel Index Troponin T 0.065 H D NT-Pro-B Natriuret Pep Albumin HDL Cholesterol Urine WBC (Auto) Urine Creatinine - Diagnostic Findings Chest x-ray: image reviewed (please see HPI for my reading) Assessment and Plan 85 y/o macedonian male admitted with acute hypoxic respiratory failure. 1. Repeat ABG later this afternoon and wean FIO2 according (>88%) 2. Stop sedation, need to assess mental state 3. Follow up renal function and urine output. 4. Guarded prognosis, this is likely acute on chronic respiratory failure. cct 31 minutes.
--- NOTE | 2020-11-22 09:39 | Consultation ---
History of Present Illness Consult date: 11/22/20 Requesting physician: MICKIE GRAHAM Consult reason: elevated troponin History of present illness: 85-year-old Lebanese male history of hypertension hyperlipidemia spoke with the patient's son been states that he is on oxygen at home unclear reason why. Several years ago was discharged on oxygen unclear who he follows up with. But as per the son he has been feeling weaker and weaker and has some shortness of b reath. Patient did not wake up after his nap EMS was called found to be hypoxic in ED was unresponsive was intubated and is currently on 60% on a Versed drip. Patient being treated for possible UTI. Has some abnormal troponin. But also acute renal failure. But as per the son main symptoms were weakness no chest pain or syncopal type episodes. Patient's son does state patient did receive Covid 19 vaccination 3 months ago Past History Past Medical History: arthritis, COPD, GERD, hypertension, hyperlipidemia (Asthma headache bladder tumor) Past Surgical History: Other (some form of valve repair or plasty, not exactly sure.) Social history: other (unable to obtain) Family history: no significant family history Medications and Allergies Allergies Allergy/AdvReac Type Severity Reaction Status Date / Time No Known Allergies Allergy Verified 11/11/18 08:08 Home Medications Medication Instructions Recorded Confirmed Last Taken Type Pantoprazole [Protonix TAB] 40 mg PO QDAY #30 tablet 04/11/19 11/22/20 Unknown Rx AtorvaSTATin 20 mg PO QHS 06/13/19 11/22/20 06/12/19 21:00 History Tamsulosin 0.4 mg PO DAILY 06/13/19 11/22/20 06/12/19 21:00 History carvediloL [Coreg] 3.125 mg PO BID 06/13/19 11/22/20 06/11/19 21:00 History Gabapentin 300 mg PO BID 11/22/20 11/22/20 Unknown History Active Meds: Active Medications Acetaminophen (Acetaminophen 325 Mg Tab) 650 mg PO Q4H PRN PRN Reason: Pain MILD(1-3)/Fever >100.5/BRYAN Albuterol (Albuterol 2.5 Mg/3 Ml Nebu) 2.5 mg IH Q4HRT PRN PRN Reason: Shortness Of Breath Albuterol/Ipratropium (Ipratropium/Albuterol Sulfate 3 Ml Ampul.Neb) 1 ampul IH Q6HRT [facility] Last Admin: 11/22/20 07:28 Dose: 1 ampul Documented by: Lipase/Protease/Amylase (Lipase 10,500/Protease 25,000/Amylase 43,750 (Units) Dr Cyr) 1 each FEEDTUBE PRN PRN PRN Reason: For Clogged Feeding Tube Aspirin (Aspirin 81 Mg Tab Chew) 81 mg PO QDAY [facility] Atorvastatin Calcium (Atorvastatin 40 Mg Tab) 40 mg PO QHS [facility] Carvedilol (Carvedilol 3.125 Mg Tab) 3.125 mg PO BID [facility] Fentanyl (Fentanyl 100 Mcg/2 Ml Inj) 50 mcg IV Q10MIN PRN PRN Reason: ANALGESIA Heparin Sodium (Porcine) (Heparin 5,000 Unit/1 Ml Vial) 5,000 unit SUB-Q Q8HR [facility] Last Admin: 11/22/20 05:24 Dose: 5,000 unit Documented by: Hydralazine HCl (Hydralazine 20 Mg/1 Ml Inj) 10 mg IV Q6H PRN PRN Reason: Blood Pressure Hydrophilic Ointment (Lip Therapy Vaseline) 1 applic TP Q2HR PRN PRN Reason: Dry Lips Dextrose/Sodium Chloride (D5ns) 1,000 mls @ 125 mls/hr IV DIRECT [facility] Last Admin: 11/22/20 03:56 Dose: 125 mls/hr Documented by: Ceftriaxone Sodium (Rocephin/Ns 2 Gm/100 Ml) 2 gm in 100 mls @ 200 mls/hr IV Q24H [facility]; Protocol Last Admin: 11/22/20 03:56 Dose: 200 mls/hr Documented by: Fentanyl Citrate (Fentanyl Drip Premix) 2,000 mcg in 100 mls @ 4.065 mls/hr IV TITR [facility]; Protocol Propofol (Diprivan 10 Mg/Ml) 1,000 mg in 100 mls @ 2.439 mls/hr IV TITR [facility]; Protocol Multi-Ingred Cream/Lotion/Oil/Oint (Mineral Oil/Petrolatum, White Ophth Oint 3.5 Gm) 1 applic OU Q4HR PRN PRN Reason: Dry Eye(s) Nitroglycerin (Nitroglycerin 0.4 Mg Tab Subl) 0.4 mg SL Q5M PRN PRN Reason: Chest Pain Ondansetron HCl (Ondansetron 4 Mg/2 Ml Inj) 4 mg IV Q8H PRN PRN Reason: Nausea And Vomiting Pantoprazole Sodium (Pantoprazole 40 Mg Tab) 40 mg PO QDAY [facility] Senna/Docusate Sodium (Sennosides/Docusate Sodium 8.6/50 Mg Tab) 1 tab FEEDTUBE BID [facility] Simple Syrup (Simple Syrup 15 Ml) 15 ml FEEDTUBE PRN PRN PRN Reason: Hypoglycemia Simple Syrup (Simple Syrup 15 Ml) 30 ml FEEDTUBE PRN PRN PRN Reason: Hypoglycemia Sodium Bicarbonate (Sodium Bicarbonate 325 Mg Tab) 325 mg FEEDTUBE PRN PRN PRN Reason: For Clogged Feeding Tube Sodium Chloride (Sodium Chloride 0.9% 10 Ml Flush Syringe) 10 ml IV BID [facility] Sodium Chloride (Sodium Chloride 0.9% 10 Ml Flush Syringe) 10 ml IV PRN PRN PRN Reason: LINE FLUSH Tamsulosin HCl (Tamsulosin 0.4 Mg Cap) 0.4 mg PO DAILY [facility] Tramadol HCl (Tramadol 50 Mg Tab) 50 mg PO Q6H PRN PRN Reason: Pain, Moderate (4-6) Review of Systems ROS unobtainable: due to endotracheal tube, due to mental status Physical Examination Vital Signs Pulse Ox 99 11/21/20 20:38 General appearance: other HEENT: Positive: PERRL, EOMI Neck: Positive: neck supple Cardiac: Positive: Reg Rate and Rhythm Lungs: Positive: Decreased Breath Sounds Neuro: Positive: Other (Unresponsive) Abdomen: Positive: Soft Extremities: Present: normal, +1 Edema Results 11/22/20 01:37 11/22/20 05:00 Cardiac Enzymes 11/21/20 Range/Units 20:50 AST 91 H (5-40) units/L CK-MB (CK-2) 2.4 (0.0-4.0) ng/mL Coagulation 11/21/20 Range/Units 20:50 PT 13.5 (12.2-14.9) Sec. INR 0.98 (0.87-1.13) APTT 32.1 (24.2-36.6) Sec. Lipids 11/21/20 Range/Units 20:50 Triglycerides 84 (2-149) mg/dL Cholesterol 125 (50-199) mg/dL HDL Cholesterol 60 H (40-59) mg/dL Cholesterol/HDL Ratio 2.08 % CBC 11/21/20 11/22/20 Range/Units 20:50 01:37 WBC 8.7 14.1 H (4.5-11.0) K/mm3 RBC 3.48 L 3.53 L (3.65-5.03) M/mm3 Hgb 11.1 L 11.0 L (11.8-15.2) gm/dl Hct 34.3 L 34.1 L (35.5-45.6) % Plt Count 246 258 (140-440) K/mm3 Lymph # (Auto) 0.6 L 1.7 (1.2-5.4) K/mm3 [place] # (Auto) 0.6 2.0 H (0.0-0.8) K/mm3 Eos # (Auto) 0.0 0.0 (0.0-0.4) K/mm3 Baso # (Auto) 0.1 0.1 (0.0-0.1) K/mm3 Comprehensive Metabolic Panel 11/21/20 11/22/20 11/22/20 Range/Units 20:50 00:23 01:37 Sodium 130 L 140 D (137-145) mmol/L Potassium 7.3 H* 5.1 H D 5.1 H (3.6-5.0) mmol/L Chloride 91.1 L 98.9 (98-107) mmol/L Carbon Dioxide 30 31 H (22-30) mmol/L BUN 40 H 40 H (9-20) mg/dL Creatinine 2.1 H 2.0 H (0.8-1.3) mg/dL Glucose 195 H 49 L (75-100) mg/dL Calcium 9.2 8.9 (8.4-10.2) mg/dL AST 91 H (5-40) units/L ALT 65 H (7-56) units/L Alkaline Phosphatase 80 (35-129) units/L Total Protein 6.4 (6.3-8.2) g/dL Albumin 3.7 L (3.9-5) g/dL 11/22/20 11/22/20 Range/Units 05:00 05:00 Sodium 136 L 137 (137-145) mmol/L Potassium 4.7 (3.6-5.0) mmol/L Chloride 97.8 L (98-107) mmol/L Carbon Dioxide 28 (22-30) mmol/L BUN 41 H (9-20) mg/dL Creatinine 1.8 H 1.8 H (0.8-1.3) mg/dL Glucose 88 (75-100) mg/dL Calcium 8.2 L (8.4-10.2) mg/dL AST (5-40) units/L ALT (7-56) units/L Alkaline Phosphatase (35-129) units/L Total Protein (6.3-8.2) g/dL Albumin (3.9-5) g/dL - Imaging and Cardiology Stress echo: report reviewed (05/2019 normal myocardial perfusion scan) Echo: report reviewed (05/2019 normal LV function mild mitral stenosis) EKG interpretations - Telemetry EKG Rhythm: Sinus Rhythm (Sinus rhythm with T wave inversion anteriorly) Assessment and Plan 85-year-old Lebanese male with hypertension hyperlipidemia has acute respiratory failure requiring intubation with acute renal insufficiency with h yperkalemia and abnormal troponin suggestive of non-STEMI type II. Last year stress test showed no significant ischemia and normal LV function echocardiogram with mild mitral stenosis. Unclear reason for hypoxemia. Patient is on carvedilol aspirin statin. Repeat echocardiogram. - Patient Problems (1) Acute metabolic encephalopathy Current Visit: Yes Status: Acute (2) Acute renal insufficiency Current Visit: Yes Status: Acute (3) Hyperkalemia Current Visit: Yes Status: Resolved (4) Acute and chronic respiratory failure ([id number]) Current Visit: No Status: Acute Qualifiers: Respiratory failure complication: hypoxia Qualified Code(s): J96.21 - Acute and chronic respiratory failure with hypoxia (5) Non-ST elevation (NSTEMI) myocardial infarction Current Visit: No Status: Acute Plan to address problem: type 2
[2020-11-22] MEDS ORDERED: PANTOPRAZOLE 40 MG TAB PO SCH (10:00)
[2020-11-22] MEDS ORDERED: FAMOTIDINE 20 MG/2 ML INJ IV SCH ×3 (10:00)
[2020-11-22] MEDS ORDERED: NON-FORMULARY EACH (Tamsulosin 0.4 MG) PO SCH (10:00)
[2020-11-22] MEDS: SENNOSIDES/DOCUSATE SODIUM 8.6/50 MG TAB FEEDTUBE SCH ×3 (10:39→22:30)
[2020-11-22] MEDS: TAMSULOSIN 0.4 MG CAP PO SCH (10:40)
[2020-11-22] MEDS: carvediloL 3.125 MG TAB PO SCH ×2 (10:40→21:35)
[2020-11-22 10:48] LABS: Hematocrit 29.9 % (35.5-45.6); Hemoglobin 10.2 gm/dl (11.8-15.2); Mean Corpuscular HGB Conc 34 % (32-34); Mean Corpuscular Volume 95 fl (84-94); Platelet Count 224 K/mm3 (140-440); Red Blood Count 3.16 M/mm3 (3.65-5.03); Red Cell Distribution Width 14.8 % (13.2-15.2)
[2020-11-22 11:11] LABS: Creatine Kinase MB 3.3 ng/mL (0.0-4.0)
--- NOTE | 2020-11-22 11:20 | Consultation ---
History of Present Illness - Reason for Consult Consult date: 11/22/20 acute renal failure, hyperkalemia Requesting physician: JUNI PUENTE - History of Present Illness The patient is an 85-year-old male presenting with a chief complaint of unresponsiveness. EMS states that family states the patient has been unresponsive today in bed. At the time of patient's arrival there is no family present so a clear history of the circumstances surrounding presentation are not yet known. EMS states they found the patient lying in the bed unresponsive hypoxic to the 50s on room air. Patient was being bagged by EMS while being transported to the ED. Upon arrival to the ED the patient was intubated According to patient's son ,the patient went to bed at 14: 00 after lunch and family thought he was sleeping. They went to wake him up at 18: 00 but he was unresponsive prompting family to call 911 In the emergency room his potassium was found to be elevated at 7.3. He was given aggressive medical management and potassium came down to 5.1. Patient is currently in the ICU. On the ventilator. Unresponsive Past History Past Medical History: arthritis, COPD, GERD, hypertension, hyperlipidemia (Asthma headache bladder tumor) Past Surgical History: Other (some form of valve repair or plasty, not exactly sure.) Social history: other (unable to obtain) Family history: no significant family history Medications and Allergies Allergies Allergy/AdvReac Type Severity Reaction Status Date / Time No Known Allergies Allergy Verified 11/11/18 08:08 Home Medications Medication Instructions Recorded Confirmed Last Taken Type Pantoprazole [Protonix TAB] 40 mg PO QDAY #30 tablet 04/11/19 11/22/20 Unknown Rx AtorvaSTATin 20 mg PO QHS 06/13/19 11/22/20 06/12/19 21:00 History Tamsulosin 0.4 mg PO DAILY 06/13/19 11/22/20 06/12/19 21:00 History carvediloL [Coreg] 3.125 mg PO BID 06/13/19 11/22/20 06/11/19 21:00 History Gabapentin 300 mg PO BID 11/22/20 11/22/20 Unknown History Active Meds: Active Medications Acetaminophen (Acetaminophen 325 Mg Tab) 650 mg PO Q4H PRN PRN Reason: Pain MILD(1-3)/Fever >100.5/BRYAN Albuterol (Albuterol 2.5 Mg/3 Ml Nebu) 2.5 mg IH Q4HRT PRN PRN Reason: Shortness Of Breath Albuterol/Ipratropium (Ipratropium/Albuterol Sulfate 3 Ml Ampul.Neb) 1 ampul IH Q6HRT [facility] Last Admin: 11/22/20 07:28 Dose: 1 ampul Documented by: Lipase/Protease/Amylase (Lipase 10,500/Protease 25,000/Amylase 43,750 (Units) Dr Cyr) 1 each FEEDTUBE PRN PRN PRN Reason: For Clogged Feeding Tube Aspirin (Aspirin 81 Mg Tab Chew) 81 mg PO QDAY [facility] Atorvastatin Calcium (Atorvastatin 40 Mg Tab) 40 mg PO QHS [facility] Carvedilol (Carvedilol 3.125 Mg Tab) 3.125 mg PO BID [facility] Last Admin: 11/22/20 10:40 Dose: 3.125 mg Documented by: Fentanyl (Fentanyl 100 Mcg/2 Ml Inj) 50 mcg IV Q10MIN PRN PRN Reason: ANALGESIA Heparin Sodium (Porcine) (Heparin 5,000 Unit/1 Ml Vial) 5,000 unit SUB-Q Q8HR [facility] Last Admin: 11/22/20 05:24 Dose: 5,000 unit Documented by: Hydralazine HCl (Hydralazine 20 Mg/1 Ml Inj) 10 mg IV Q6H PRN PRN Reason: Blood Pressure Hydrophilic Ointment (Lip Therapy Vaseline) 1 applic TP Q2HR PRN PRN Reason: Dry Lips Dextrose/Sodium Chloride (D5ns) 1,000 mls @ 125 mls/hr IV DIRECT [facility] Last Admin: 11/22/20 03:56 Dose: 125 mls/hr Documented by: Ceftriaxone Sodium (Rocephin/Ns 2 Gm/100 Ml) 2 gm in 100 mls @ 200 mls/hr IV Q24H [facility]; Protocol Last Admin: 11/22/20 03:56 Dose: 200 mls/hr Documented by: Propofol (Diprivan 10 Mg/Ml) 1,000 mg in 100 mls @ 2.439 mls/hr IV TITR [facility]; Protocol Multi-Ingred Cream/Lotion/Oil/Oint (Mineral Oil/Petrolatum, White Ophth Oint 3.5 Gm) 1 applic OU Q4HR PRN PRN Reason: Dry Eye(s) Nitroglycerin (Nitroglycerin 0.4 Mg Tab Subl) 0.4 mg SL Q5M PRN PRN Reason: Chest Pain Ondansetron HCl (Ondansetron 4 Mg/2 Ml Inj) 4 mg IV Q8H PRN PRN Reason: Nausea And Vomiting Pantoprazole Sodium (Pantoprazole 40 Mg Tab) 40 mg PO QDAY [facility] Last Admin: 11/22/20 10:41 Dose: Not Given Documented by: Senna/Docusate Sodium (Sennosides/Docusate Sodium 8.6/50 Mg Tab) 1 tab FEEDTUBE BID [facility] Last Admin: 11/22/20 10:39 Dose: 1 tab Documented by: Simple Syrup (Simple Syrup 15 Ml) 15 ml FEEDTUBE PRN PRN PRN Reason: Hypoglycemia Simple Syrup (Simple Syrup 15 Ml) 30 ml FEEDTUBE PRN PRN PRN Reason: Hypoglycemia Sodium Bicarbonate (Sodium Bicarbonate 325 Mg Tab) 325 mg FEEDTUBE PRN PRN PRN Reason: For Clogged Feeding Tube Sodium Chloride (Sodium Chloride 0.9% 10 Ml Flush Syringe) 10 ml IV BID [facility] Last Admin: 11/22/20 10:42 Dose: 10 ml Documented by: Sodium Chloride (Sodium Chloride 0.9% 10 Ml Flush Syringe) 10 ml IV PRN PRN PRN Reason: LINE FLUSH Tamsulosin HCl (Tamsulosin 0.4 Mg Cap) 0.4 mg PO DAILY [facility] Last Admin: 11/22/20 10:40 Dose: 0.4 mg Documented by: Tramadol HCl (Tramadol 50 Mg Tab) 50 mg PO Q6H PRN PRN Reason: Pain, Moderate (4-6) Review of Systems ROS unobtainable: due to endotracheal tube Exam - Vital Signs Vital signs: Vital Signs Pulse Ox 99 11/21/20 20:38 - General Appearance General appearance: well-developed, well-nourished, appears stated age, i ntubated EENT: ATNC Neck: Present: neck supple Respiratory: Clear to Ascultation, Other (Midline scar noted in his chest wall) Heart: regular, normal heart rate Gastrointestinal: Present: normal, normoactive bowel sounds Integumentary: no rash, other (No edema) Results - Lab Results 11/22/20 10:20 11/22/20 05:00 Most recent lab results ABG pH 7.334 (7.320-7.450) 11/22/20 03:20 ABG O2 Saturation 96.7 (0-100) 11/22/20 03:20 Calcium 8.2 mg/dL (8.4-10.2) L 11/22/20 05:00 Urine Creatinine 158.2 mg/dL (0.1-20.0) H 11/22/20 00:11 Urine Sodium 39 mmol/L 11/22/20 00:11 Assessment and Plan Impression * Acute kidney injury * Severe hyperkalemia * Respiratory failure * Coronary artery disease * Hypertension * COPD * Bladder cancer Recommendations * Hyperkalemia has been corrected with aggressive medical management. * Serum creatinine is trending down with IV hydration. Patient currently has a Paulson catheter in place and is currently nonoliguric * No urgent indication for dialysis today * His urine shows 1+ dipstick protein and large blood. Fractional excretion of sodium is 0.4%. He most likely has a prerenal component. However given his microhematuria need to rule out vasculitis. Vasculitis work-up as ordered * Renal ultrasound shows atrophic left kidney. No obstruction. * Monitor fluid status and electrolytes closely * Continue IV hydration * Avoid nephrotoxins * Thank you very much for the consultation. Shall follow along with you
--- NOTE | 2020-11-22 14:12 | XRay Report ---
ABDOMEN 1 VIEW(S) INDICATION / CLINICAL INFORMATION: OGT placement. COMPARISON: None available. FINDINGS: TUBES / LINES: NG tube in satisfactory position. BOWEL GAS PATTERN: No significant abnormality. ADDITIONAL FINDINGS: No significant additional findings. Signer Name: Imer Abad MD Signed: 11/22/2020 2:08 PM Workstation Name: [id number]
--- NOTE | 2020-11-22 14:26 | Event Note ---
<KADEN ELLISNicol - Last Filed: 11/22/20 14:25> This is a 85-year-old male with COPD on home oxygen of 2 to 3 L, GERD, hypertension, asthma, hyperlipidemia, valve replacement, bilateral cataract surgery, bladder cancer, bilateral enterectomy 4 to 5 years ago who presented to the emergency department after being found unresponsive on 1800 via EMS. Upon EMS arrival patient was found lying in bed unresponsive and hypoxic with SPO2 into the 50s on room air and was bagged by EMS and transported to [facility]. Upon arrival to the emergency department patient was hypoxic and patient was intubated. Work-up in the emergency department revealed hyperkalemia, acute kidney injury, lactic acidosis, elevated troponin and elevated BNP. Patient had a CT head in the emergency department which revealed sinus disease and no other acute findings, renal ultrasound which showed asymmetric renal size without hydronephrosis, CXR which showed mild increased interstitial prominence without pneumothorax and cardiomegaly. Patient was admitted to the hospital service with consults to nephrology, cardiology and critical care. 11/22: Patient sedation was changed to propofol from Versed and fentanyl IV push ordered by CCM, p.m. ABG is pending which may need to CPAP and extubation. Nephrology ordered a vasculitis work-up. Echocardiogram pending, patient's son relates that he received a COVID-19 vaccination x2 with [employer] several months ago. I update his nephew and son at bedside. This is an 85-year-old male with COPD on home oxygen, GERD, hypertension, asthma, hyperlipidemia, vasopressin, bladder cancer admitted for acute hypoxic respiratory failure, UTI, acute kidney injury and electrolyte imbalances Neuro: Metabolic encephalopathy -11/21 CT head shows no acute intracranial abnormality, sinus disease -Sedated with propofol and fentanyl as needed -Aspiration/fall precautions -Avoid delirium Cardiovascular Hypertension -Cardiology following -Carvedilol, aspirin, statin -Blood pressure monitor per protocol -Hydralazine as needed NSTEMI type II -Presented with CARRIE with elevated troponins -Per cardiology patient had a stress test in 2019 which showed no significant ischemia, normal LV function and echocardiogram which showed mild mitral stenosis -Repeat echocardiogram pending -As needed nitroglycerin Hyperlipidemia -Resume home statin therapy when appropriate Respiratory Acute hypoxic respiratory failure -Mechanical ventilation, wean as tolerated -VAP bundle -CCM following COPD -Currently on mechanical ventilation, wean as tolerated -Pulmonary hygiene -Per family patient is on home oxygen of 2 to 3 L however son states that the patient patients himself on up to 8 L because " he does not know how it works" FEN/GI: Acute kidney injury -Presented with a BUN/creatinine of 40/2.1 -Nephrology consulted -Calculated FENa suggesting prerenal state -Renal ultrasound shows asymmetric renal size, no hydronephrosis, no acute findings -Strict intake and output -Renally dose medications -Avoid nephrotoxic medications -Daily weights Hyperkalemia (resolved) -Presented with a potassium of 7.3 -S/p potassium cocktail in the ED Hyponatremia (resolved) -Presented with a sodium of 130 which was corrected to a sodium of 140 within 5 hours -Trend BMP Hypochloremia -Presented with a chloride of 91.1 -Trend chloride Tube feeding -NG tube -Nutrition consulted -SSI : hx of bladder cancer -Galeano catheter in place -resume home flomax ID: Urinary tract infection -11/22 UA shows trace leukocyte esterase -Urine culture pending -Blood culture pending -Antibiotic therapy Lactic acidosis, resolved -Patient presented with lactic acidosis however this has corrected with aggressive IV hydration GI/DVT prophylaxis: Heparin subcu, H2 zoila, SCDs to BLE while in bed Dispo: ICU Lines: Femoral CVL (to be removed by RN), galeano, Obtain PIV The high probability of a clinically significant, sudden or life threatening deterioration of the [resp] system(s) required my full and direct attention, intervention and personal management. The aggregate critical care time was [40] minutes. This time is in addition to time spent performing reported procedures but includes the following: [x] Data Review and interpretation [x] Patient assessment and monitoring of vital signs [x] Documentation [x] Medication orders and management <MICKIE GRAHAM - Last Filed: 11/23/20 13:44> Agree with assessment and plan as outlined by nurse practitioner, I have personally examined the patient, spoke to her about today's plan, also spoke with the family to get more information. Continues to be intubated in the ICU, continue sepsis work-up.
[2020-11-22 16:40] LABS: Hepatitis B Surface Antigen Non-Reactive (Negative); Hepatitis C Virus Antibody Reactive (NonReactive)
[2020-11-23] MEDS: SENNOSIDES/DOCUSATE SODIUM 8.6/50 MG TAB FEEDTUBE SCH ×3 (00:12→21:57)
[2020-11-23] MEDS: IPRATROPIUM/ALBUTEROL SULFATE 3 ML AMPUL.NEB IH SCH ×4 (01:48→19:29)
[2020-11-23] MEDS: cefTRIAXone/NS 2 GM/100 ML 2 GM/100 ML BAG IV SCH (02:20)
[2020-11-23] MEDS: HEPARIN 5,000 UNIT/1 ML VIAL SUB-Q SCH ×3 (05:17→21:58)
[2020-11-23] MEDS: D5W/0.9% NACL 1,000 ML IV SCH (05:24)
[2020-11-23] MEDS: LANSOPRAZOLE 30 MG SOLUTAB FEEDTUBE SCH (10:38)
[2020-11-23] MEDS: ASPIRIN 81 MG TAB CHEW PO SCH (10:38)
[2020-11-23] MEDS: TAMSULOSIN 0.4 MG CAP PO SCH (10:38)
[2020-11-23] MEDS: carvediloL 3.125 MG TAB PO SCH ×2 (10:39→21:58)
--- NOTE | 2020-11-23 10:45 | Progress Note ---
Assessment and Plan 85 y/o [place] male admitted with acute hypoxic respiratory failure. 11/23/20: Wean sedation to off. If patient can tolerate being off sedation, will attempt PSV trial, otherwise, will likely have to just stop sedation and extubate, will have bipap ready for as needed purposes. Needs chemistry to assess renal function. Out put was good. 1. Repeat ABG later this afternoon and wean FIO2 according (>88%) 2. Stop sedation, need to assess mental state 3. Follow up renal function and urine output. 4. Guarded prognosis, this is likely acute on chronic respiratory failure. cct 31 minutes. Subjective Date of service: 11/23/20 Interval history: No acute events. Now on diprovan at 25. ABG improved. No CXR this am. Eyes open but not following commands. Objective Vital Signs - 12hr 11/22/20 11/22/20 11/22/20 22:41 22:51 23:00 Temperature Pulse Rate 68 70 70 Pulse Rate [ Anterior Bilateral Throughout] Respiratory 20 19 19 Rate Respiratory Rate [Anterior Bilateral Throughout] Blood Pressure 121/53 121/56 122/59 O2 Sat by Pulse 82 L Oximetry 11/22/20 11/22/20 11/22/20 23:10 23:21 23:30 Temperature Pulse Rate 70 67 64 Pulse Rate [ Anterior Bilateral Throughout] Respiratory 18 18 18 Rate Respiratory Rate [Anterior Bilateral Throughout] Blood Pressure 122/59 126/54 114/53 O2 Sat by Pulse Oximetry 11/22/20 11/22/20 11/22/20 23:39 23:40 23:51 Temperature Pulse Rate 62 63 Pulse Rate [ Anterior Bilateral Throughout] Respiratory 18 18 18 Rate Respiratory Rate [Anterior Bilateral Throughout] Blood Pressure 114/53 122/65 O2 Sat by Pulse 100 100 100 Oximetry 11/22/20 11/23/20 11/23/20 23:57 00:00 00:05 Temperature 99.4 F Pulse Rate 61 61 Pulse Rate [ Anterior Bilateral Throughout] Respiratory 18 Rate Respiratory Rate [Anterior Bilateral Throughout] Blood Pressure 121/56 121/56 O2 Sat by Pulse 100 100 Oximetry 11/23/20 11/23/20 11/23/20 00:11 00:21 00:30 Temperature Pulse Rate 61 61 60 Pulse Rate [ Anterior Bilateral Throughout] Respiratory 17 18 18 Rate Respiratory Rate [Anterior Bilateral Throughout] Blood Pressure 121/56 122/52 122/54 O2 Sat by Pulse 100 100 100 Oximetry 11/23/20 11/23/20 11/23/20 00:41 00:51 01:00 Temperature Pulse Rate 60 61 68 Pulse Rate [ Anterior Bilateral Throughout] Respiratory 18 18 18 Rate Respiratory Rate [Anterior Bilateral Throughout] Blood Pressure 122/54 118/50 114/54 O2 Sat by Pulse 100 100 100 Oximetry 11/23/20 11/23/20 11/23/20 01:11 01:21 01:30 Temperature Pulse Rate 59 L 59 L 65 Pulse Rate [ Anterior Bilateral Throughout] Respiratory 18 18 16 Rate Respiratory Rate [Anterior Bilateral Throughout] Blood Pressure 114/54 118/50 100/56 O2 Sat by Pulse 100 100 100 Oximetry 11/23/20 11/23/20 11/23/20 01:41 01:48 01:50 Temperature Pulse Rate 68 Pulse Rate [ 72 Anterior Bilateral Throughout] Respiratory 18 18 Rate Respiratory 18 Rate [Anterior Bilateral Throughout] Blood Pressure 100/56 O2 Sat by Pulse 94 100 Oximetry 11/23/20 11/23/20 11/23/20 01:51 02:01 02:11 Temperature Pulse Rate 64 67 66 Pulse Rate [ Anterior Bilateral Throughout] Respiratory 18 16 21 Rate Respiratory Rate [Anterior Bilateral Throughout] Blood Pressure 108/52 92/69 92/69 O2 Sat by Pulse 100 100 100 Oximetry 11/23/20 11/23/20 11/23/20 02:21 02:30 02:41 Temperature Pulse Rate 67 66 73 Pulse Rate [ Anterior Bilateral Throughout] Respiratory 15 17 24 Rate Respiratory Rate [Anterior Bilateral Throughout] Blood Pressure 88/59 93/63 93/63 O2 Sat by Pulse 95 100 100 Oximetry 11/23/20 11/23/20 11/23/20 02:51 02:56 03:01 Temperature Pulse Rate 73 69 Pulse Rate [ Anterior Bilateral Throughout] Respiratory 17 25 H 15 Rate Respiratory Rate [Anterior Bilateral Throughout] Blood Pressure 117/55 118/56 O2 Sat by Pulse 97 95 Oximetry 11/23/20 11/23/20 11/23/20 03:10 03:11 03:21 Temperature Pulse Rate 69 66 Pulse Rate [ Anterior Bilateral Throughout] Respiratory 18 14 22 Rate Respiratory Rate [Anterior Bilateral Throughout] Blood Pressure 118/56 117/55 O2 Sat by Pulse 100 92 100 Oximetry 11/23/20 11/23/20 11/23/20 03:30 03:44 03:46 Temperature 99.8 F H Pulse Rate 72 73 Pulse Rate [ Anterior Bilateral Throughout] Respiratory 19 Rate Respiratory Rate [Anterior Bilateral Throughout] Blood Pressure 125/44 125/44 O2 Sat by Pulse 100 97 Oximetry 11/23/20 11/23/20 11/23/20 06:00 07:14 08:00 Temperature 97.5 F L Pulse Rate 64 Pulse Rate [ 65 Anterior Bilateral Throughout] Respiratory 18 Rate Respiratory 18 Rate [Anterior Bilateral Throughout] Blood Pressure 96/60 O2 Sat by Pulse 100 100 Oximetry 11/23/20 10:39 Temperature Pulse Rate 84 Pulse Rate [ Anterior Bilateral Throughout] Respiratory Rate Respiratory Rate [Anterior Bilateral Throughout] Blood Pressure 148/76 O2 Sat by Pulse Oximetry Constitutional: comatose (secondary to versed drip) Eyes: non-icteric ENT: other (orally intubated and sedated) Neck: supple, other (large in circumference) Effort: normal Ascultation: Bilateral: diminished breath sounds Percussion: Bilateral: not dull Cardiovascular: regular rate and rhythm Gastrointestinal: soft, non-tender Extremities: no cyanosis Neurologic: unable to assess CBC and BMP: 11/22/20 10:20 11/22/20 05:00 ABG, PT/INR, D-dimer: ABG ABG pH 7.425 (7.320-7.450) 11/23/20 03:03 POC ABG pCO2 38.9 mmHg (32.0-48.0) 11/23/20 03:03 POC ABG pO2 115.8 mmHg (83-108) H 11/23/20 03:03 POC ABG HCO3 25.0 11/23/20 03:03 ABG O2 Saturation 98.4 (0-100) 11/23/20 03:03 PT/INR, D-dimer PT 13.5 Sec. (12.2-14.9) 11/21/20 20:50 INR 0.98 (0.87-1.13) 11/21/20 20:50 Abnormal lab findings: Abnormal Labs 11/21/20 11/21/20 11/22/20 20:50 20:50 00:11 WBC RBC 3.48 L Hgb 11.1 L Hct 34.3 L MCV 99 H Lymph % (Auto) 6.8 L [place] % (Auto) Lymph # (Auto) 0.6 L [place] # (Auto) Seg Neutrophils % 85.5 H Seg Neutrophils # ABG pH POC ABG pCO2 POC ABG pO2 ABG Hemoglobin ABG Sodium ABG Potassium ABG Glucose Carboxyhemoglobin Sodium 130 L Potassium 7.3 H* Chloride 91.1 L Carbon Dioxide BUN 40 H Creatinine 2.1 H Glucose 195 H POC Glucose Lactic Acid Calcium AST 91 H ALT 65 H CK-MB (CK-2) Rel Index 4.1 H Troponin T 0.045 H NT-Pro-B Natriuret Pep 6998 H Albumin 3.7 L HDL Cholesterol 60 H Arterial Blood Glucose Arterial Blood Ionized Calcium Urine WBC (Auto) Urine Creatinine 158.2 H Hepatitis C Antibody 11/22/20 11/22/20 11/22/20 00:23 00:40 01:37 WBC 14.1 H RBC 3.53 L Hgb 11.0 L Hct 34.1 L MCV 97 H Lymph % (Auto) 12.3 L [place] % (Auto) 14.2 H Lymph # (Auto) [place] # (Auto) 2.0 H Seg Neutrophils % 72.3 H Seg Neutrophils # 10.2 H ABG pH POC ABG pCO2 POC ABG pO2 ABG Hemoglobin ABG Sodium ABG Potassium ABG Glucose Carboxyhemoglobin Sodium Potassium 5.1 H D Chloride Carbon Dioxide BUN Creatinine Glucose POC Glucose Lactic Acid 2.10 H* Calcium AST ALT CK-MB (CK-2) Rel Index Troponin T NT-Pro-B Natriuret Pep Albumin HDL Cholesterol Arterial Blood Glucose Arterial Blood Ionized Calcium Urine WBC (Auto) Urine Creatinine Hepatitis C Antibody 11/22/20 11/22/20 11/22/20 01:37 03:20 05:00 WBC RBC Hgb Hct MCV Lymph % (Auto) [place] % (Auto) Lymph # (Auto) [place] # (Auto) Seg Neutrophils % Seg Neutrophils # ABG pH POC ABG pCO2 58.4 H POC ABG pO2 ABG Hemoglobin 11.1 L ABG Sodium 135.1 L ABG Potassium 5.0 H ABG Glucose Carboxyhemoglobin Sodium Potassium 5.1 H Chloride Carbon Dioxide 31 H BUN 40 H Creatinine 2.0 H Glucose 49 L POC Glucose Lactic Acid Calcium AST ALT CK-MB (CK-2) Rel Index Troponin T NT-Pro-B Natriuret Pep Albumin HDL Cholesterol Arterial Blood Glucose Arterial Blood Ionized Calcium Urine WBC (Auto) 33.0 H Urine Creatinine Hepatitis C Antibody 11/22/20 11/22/20 11/22/20 05:00 05:00 05:00 WBC RBC Hgb Hct MCV Lymph % (Auto) [place] % (Auto) Lymph # (Auto) [place] # (Auto) Seg Neutrophils % Seg Neutrophils # ABG pH POC ABG pCO2 POC ABG pO2 ABG Hemoglobin ABG Sodium ABG Potassium ABG Glucose Carboxyhemoglobin Sodium 136 L Potassium Chloride 97.8 L Carbon Dioxide BUN 41 H Creatinine 1.8 H 1.8 H Glucose POC Glucose Lactic Acid Calcium 8.2 L AST ALT CK-MB (CK-2) Rel Index Troponin T 0.065 H D NT-Pro-B Natriuret Pep Albumin HDL Cholesterol Arterial Blood Glucose Arterial Blood Ionized Calcium Urine WBC (Auto) Urine Creatinine Hepatitis C Antibody 11/22/20 11/22/20 11/22/20 10:20 10:20 15:00 WBC RBC 3.16 L Hgb 10.2 L Hct 29.9 L MCV 95 H Lymph % (Auto) [place] % (Auto) Lymph # (Auto) [place] # (Auto) Seg Neutrophils % Seg Neutrophils # ABG pH 7.501 H POC ABG pCO2 POC ABG pO2 ABG Hemoglobin 10.5 L ABG Sodium 134.9 L ABG Potassium ABG Glucose 115 H Carboxyhemoglobin 0.4 L Sodium Potassium Chloride Carbon Dioxide BUN Creatinine Glucose POC Glucose Lactic Acid Calcium AST ALT CK-MB (CK-2) Rel Index Troponin T 0.078 H NT-Pro-B Natriuret Pep Albumin HDL Cholesterol Arterial Blood Glucose 115 H Arterial Blood Ionized Calcium 4.3 L Urine WBC (Auto) Urine Creatinine Hepatitis C Antibody 11/22/20 11/22/20 11/22/20 16:00 17:45 23:21 WBC RBC Hgb Hct MCV Lymph % (Auto) [place] % (Auto) Lymph # (Auto) [place] # (Auto) Seg Neutrophils % Seg Neutrophils # ABG pH POC ABG pCO2 POC ABG pO2 ABG Hemoglobin ABG Sodium ABG Potassium ABG Glucose Carboxyhemoglobin Sodium Potassium Chloride Carbon Dioxide BUN Creatinine Glucose POC Glucose 107 H 115 H Lactic Acid Calcium AST ALT CK-MB (CK-2) Rel Index Troponin T NT-Pro-B Natriuret Pep Albumin HDL Cholesterol Arterial Blood Glucose Arterial Blood Ionized Calcium Urine WBC (Auto) Urine Creatinine Hepatitis C Antibody Reactive A 11/23/20 11/23/20 03:03 05:33 WBC RBC Hgb Hct MCV Lymph % (Auto) [place] % (Auto) Lymph # (Auto) [place] # (Auto) Seg Neutrophils % Seg Neutrophils # ABG pH POC ABG pCO2 POC ABG pO2 115.8 H ABG Hemoglobin 10.1 L ABG Sodium 135.8 L ABG Potassium ABG Glucose 98 H Carboxyhemoglobin 0.4 L Sodium Potassium Chloride Carbon Dioxide BUN Creatinine Glucose POC Glucose 106 H Lactic Acid Calcium AST ALT CK-MB (CK-2) Rel Index Troponin T NT-Pro-B Natriuret Pep Albumin HDL Cholesterol Arterial Blood Glucose 98 H Arterial Blood Ionized Calcium 4.4 L Urine WBC (Auto) Urine Creatinine Hepatitis C Antibody
[2020-11-23 11:35] LABS: Alanine Aminotransferase 41 units/L (7-56); Albumin 2.8 g/dL (3.9-5); BUN/Creatinine Ratio 22; Blood Urea Nitrogen 22 mg/dL (9-20); Calcium 7.9 mg/dL (8.4-10.2); Hemolysis Index 54
--- NOTE | 2020-11-23 11:37 | Progress Note ---
Assessment and Plan 85-year-old [place] male with hypertension hyperlipidemia has acute respiratory failure requiring intubation with acute renal insufficiency with hyperkalemia and abnormal troponin suggestive of non-STEMI type II. Last year stress test showed no significant ischemia and normal LV function echocardiogram with mild mitral stenosis. In discussion with patient's pulmonary trying to extubate the patient. Continue current medical therapy echo pending - Patient Problems (1) Acute metabolic encephalopathy Current Visit: Yes Status: Acute (2) Acute renal insufficiency Current Visit: Yes Status: Acute (3) Hyperkalemia Current Visit: Yes Status: Resolved (4) Acute and chronic respiratory failure ([id number]) Current Visit: No Status: Acute Qualifiers: Respiratory failure complication: hypoxia Qualified Code(s): J96.21 - Acute and chronic respiratory failure with hypoxia (5) Non-ST elevation (NSTEMI) myocardial infarction Current Visit: No Status: Acute Subjective Date of service: 11/23/20 Principal diagnosis: abnl trop Interval history: awake on vent Objective Vital Signs Temp Pulse Pulse Resp Resp BP Pulse Ox 11/23/20 10:39 84 148/76 11/23/20 08:00 97.5 F L 11/23/20 07:14 64 65 18 96/60 100 11/23/20 06:00 18 100 11/23/20 03:46 99.8 F H 11/23/20 03:44 73 125/44 97 11/23/20 03:30 72 19 125/44 100 11/23/20 03:21 66 22 117/55 100 11/23/20 03:11 69 14 118/56 92 11/23/20 03:10 18 100 11/23/20 03:01 69 15 118/56 95 11/23/20 02:56 25 H 11/23/20 02:51 73 17 117/55 97 11/23/20 02:41 73 24 93/63 100 11/23/20 02:30 66 17 93/63 100 11/23/20 02:21 67 15 88/59 95 11/23/20 02:11 66 21 92/69 100 11/23/20 02:01 67 16 92/69 100 11/23/20 01:51 64 18 108/52 100 11/23/20 01:50 18 100 11/23/20 01:48 72 18 07/04/21 01:41 68 18 100/56 94 11/23/20 01:30 65 16 100/56 100 11/23/20 01:21 59 L 18 118/50 100 11/23/20 01:11 59 L 18 114/54 100 11/23/20 01:00 68 18 114/54 100 11/23/20 00:51 61 18 118/50 100 11/23/20 00:41 60 18 122/54 100 11/23/20 00:30 60 18 122/54 100 11/23/20 00:21 61 18 122/52 100 11/23/20 00:11 61 17 121/56 100 11/23/20 00:05 61 121/56 100 11/23/20 00:00 61 18 121/56 100 11/22/20 23:57 99.4 F 11/22/20 23:51 63 18 122/65 100 11/22/20 23:40 62 18 114/53 100 11/22/20 23:39 18 100 11/22/20 23:30 64 18 114/53 11/22/20 23:21 67 18 126/54 11/22/20 23:10 70 18 122/59 11/22/20 23:00 70 19 122/59 11/22/20 22:51 70 19 121/56 11/22/20 22:41 68 20 121/53 82 L 11/22/20 22:31 71 18 119/55 82 L 11/22/20 22:30 68 19 119/55 81 L 11/22/20 22:21 70 19 121/53 86 11/22/20 22:17 70 17 121/53 11/22/20 22:11 68 19 115/52 11/22/20 22:04 69 19 116/52 93 11/22/20 22:00 68 21 116/52 11/22/20 21:51 69 19 115/52 11/22/20 21:41 70 17 117/53 11/22/20 21:35 69 18 111/45 100 11/22/20 21:30 71 18 111/45 11/22/20 21:21 68 17 117/53 91 11/22/20 21:11 68 18 137/77 11/22/20 21:01 75 21 119/46 11/22/20 20:51 83 14 137/77 97 11/22/20 20:41 81 13 101/69 07 20:30 73 20 122/71 07 20:21 75 16 101/69 100 07 20:10 72 16 122/61 94 11/22/20 20:00 70 16 122/61 95 11/22/20 19:54 99.2 F 11/22/20 19:51 72 19 131/65 89 11/22/20 19:41 69 17 124/58 97 11/22/20 19:31 73 18 144/90 100 11/22/20 19:28 76 24 11/22/20 19:21 77 14 144/90 100 11/22/20 19:19 69 20 100 11/22/20 19:11 78 12 143/102 99 11/22/20 19:01 84 13 143/102 100 11/22/20 18:51 76 16 143/71 98 11/22/20 18:41 81 15 132/107 100 11/22/20 18:30 75 16 132/107 99 11/22/20 18:21 73 18 128/59 96 11/22/20 18:11 79 17 144/65 100 11/22/20 18:00 69 18 147/62 100 11/22/20 17:51 69 23 144/65 100 11/22/20 17:41 65 24 147/60 100 11/22/20 17:30 66 24 147/60 100 11/22/20 17:21 71 22 141/63 100 11/22/20 17:11 66 24 125/53 100 11/22/20 17:00 65 24 125/53 100 11/22/20 16:51 68 24 139/69 100 07 16:41 65 24 135/62 100 11/22/20 16:30 65 24 135/62 100 07/21 16:21 67 24 132/52 100 07 16:11 66 24 140/47 100 11/22/20 16:01 68 24 140/47 99 11/22/20 16:00 99.2 F 19 100 11/22/20 15:51 69 24 131/54 100 07/0321 15:41 67 24 139/61 100 07 15:31 67 24 134/54 100 11/22/20 15:21 67 24 126/55 100 07/03/21 15:11 67 24 112/47 100 11/22/20 15:01 66 24 112/47 100 11/22/20 14:51 67 24 139/61 99 11/22/20 14:41 67 24 131/66 100 21 14:30 68 24 131/66 100 11/22/20 14:21 68 25 H 145/58 100 11/22/20 14:11 68 23 140/57 100 11/22/20 14:00 67 24 140/57 100 11/22/20 13:51 67 24 149/64 100 11/22/20 13:41 68 24 146/65 100 11/22/20 13:30 67 24 146/65 100 11/22/20 13:21 67 24 121/59 100 11/22/20 13:11 67 24 103/78 100 11/22/20 13:01 71 21 103/78 88 11/22/20 12:51 66 24 136/57 100 11/22/20 12:41 67 24 135/55 100 11/22/20 12:30 67 24 135/55 100 11/22/20 12:21 68 18 131/47 100 11/22/20 12:11 67 24 138/62 100 11/22/20 12:00 97.8 F 67 24 138/62 100 11/22/20 11:51 67 24 132/59 100 11/22/20 11:41 67 24 138/60 100 - Physical Examination General: No Apparent Distress HEENT: Positive: PERRL, EOMI Neck: Positive: neck supple Cardiac: Positive: Reg Rate and Rhythm Lungs: Positive: Decreased Breath Sounds Neuro: Positive: Other (Unresponsive) Abdomen: Positive: Soft Extremities: Present: normal. Absent: edema - Imaging and Cardiology Stress echo: report reviewed (05/2019 normal myocardial perfusion scan) Echo: report reviewed (05/2019 normal LV function mild mitral stenosis) - Telemetry EKG Rhythm: Sinus Rhythm
[2020-11-23 11:43] LABS: Basophils # (Auto) 0.1 K/mm3 (0.0-0.1); Basophils % (Auto) 0.5 % (0.0-1.8); Eosinophils # (Auto) 0.1 K/mm3 (0.0-0.4); Hematocrit 32.2 % (35.5-45.6); Hemoglobin 10.6 gm/dl (11.8-15.2); Lymphocytes # (Auto) 1.6 K/mm3 (1.2-5.4); Lymphocytes % (Auto) 16.1 % (13.4-35.0); Mean Corpuscular HGB Conc 33 % (32-34); Mean Corpuscular Volume 97 fl (84-94); Monocytes # (Auto) 1.5 K/mm3 (0.0-0.8); Platelet Count 229 K/mm3 (140-440); Red Blood Count 3.33 M/mm3 (3.65-5.03); Red Cell Distribution Width 14.8 % (13.2-15.2)
--- NOTE | 2020-11-23 12:15 | Progress Note ---
Assessment and Plan Impression * Acute kidney injury * Severe hyperkalemia * Respiratory failure * Coronary artery disease * Hypertension * COPD * Bladder cancer * Hepatitis C Recommendations * Hyperkalemia has been corrected with aggressive medical management. * Renal function is much improved . Patient is also currently nonoliguric * His urine shows 1+ dipstick protein and large blood. Fractional excretion of sodium is 0.4%. He most likely has a prerenal component. However given his microhematuria need to rule out vasculitis. Vasculitis work-up as ordered * Renal ultrasound shows atrophic left kidney. No obstruction. * Monitor fluid status and electrolytes closely * Avoid nephrotoxins * Reduce IV fluid Subjective Date of service: 11/23/20 Principal diagnosis: abnl trop Interval history: Patient remains on the ventilator. Currently on 45% FiO2. Oxygen saturation is 100%. IV fluid infusing. Objective - Vital Signs Vital signs: Vital Signs - 12hr 11/23/20 11/23/20 11/23/20 00:21 00:30 00:41 Temperature Pulse Rate 61 60 60 Pulse Rate [ Anterior Bilateral Throughout] Respiratory 18 18 18 Rate Respiratory Rate [Anterior Bilateral Throughout] Blood Pressure 122/52 122/54 122/54 O2 Sat by Pulse 100 100 100 Oximetry 11/23/20 11/23/20 11/23/20 00:51 01:00 01:11 Temperature Pulse Rate 61 68 59 L Pulse Rate [ Anterior Bilateral Throughout] Respiratory 18 18 18 Rate Respiratory Rate [Anterior Bilateral Throughout] Blood Pressure 118/50 114/54 114/54 O2 Sat by Pulse 100 100 100 Oximetry 11/23/20 11/23/20 11/23/20 01:21 01:30 01:41 Temperature Pulse Rate 59 L 65 68 Pulse Rate [ Anterior Bilateral Throughout] Respiratory 18 16 18 Rate Respiratory Rate [Anterior Bilateral Throughout] Blood Pressure 118/50 100/56 100/56 O2 Sat by Pulse 100 100 94 Oximetry 11/23/20 11/23/20 11/23/20 01:48 01:50 01:51 Temperature Pulse Rate 64 Pulse Rate [ 72 Anterior Bilateral Throughout] Respiratory 18 18 Rate Respiratory 18 Rate [Anterior Bilateral Throughout] Blood Pressure 108/52 O2 Sat by Pulse 100 100 Oximetry 11/23/20 11/23/20 11/23/20 02:01 02:11 02:21 Temperature Pulse Rate 67 66 67 Pulse Rate [ Anterior Bilateral Throughout] Respiratory 16 21 15 Rate Respiratory Rate [Anterior Bilateral Throughout] Blood Pressure 92/69 92/69 88/59 O2 Sat by Pulse 100 100 95 Oximetry 11/23/20 11/23/20 11/23/20 02:30 02:41 02:51 Temperature Pulse Rate 66 73 73 Pulse Rate [ Anterior Bilateral Throughout] Respiratory 17 24 17 Rate Respiratory Rate [Anterior Bilateral Throughout] Blood Pressure 93/63 93/63 117/55 O2 Sat by Pulse 100 100 97 Oximetry 11/23/20 11/23/20 11/23/20 02:56 03:01 03:10 Temperature Pulse Rate 69 Pulse Rate [ Anterior Bilateral Throughout] Respiratory 25 H 15 18 Rate Respiratory Rate [Anterior Bilateral Throughout] Blood Pressure 118/56 O2 Sat by Pulse 95 100 Oximetry 11/23/20 11/23/20 11/23/20 03:11 03:21 03:30 Temperature Pulse Rate 69 66 72 Pulse Rate [ Anterior Bilateral Throughout] Respiratory 14 22 19 Rate Respiratory Rate [Anterior Bilateral Throughout] Blood Pressure 118/56 117/55 125/44 O2 Sat by Pulse 92 100 100 Oximetry 11/23/20 11/23/20 11/23/20 03:44 03:46 06:00 Temperature 99.8 F H Pulse Rate 73 Pulse Rate [ Anterior Bilateral Throughout] Respiratory 18 Rate Respiratory Rate [Anterior Bilateral Throughout] Blood Pressure 125/44 O2 Sat by Pulse 97 100 Oximetry 11/23/20 11/23/20 11/23/20 07:14 08:00 10:39 Temperature 97.5 F L Pulse Rate 64 84 Pulse Rate [ 65 Anterior Bilateral Throughout] Respiratory Rate Respiratory 18 Rate [Anterior Bilateral Throughout] Blood Pressure 96/60 148/76 O2 Sat by Pulse 100 Oximetry - General Appearance General appearance: well-developed, well-nourished, appears stated age, intubated EENT: PERRL, mucous membranes moist Neck: no JVD, no thyromegaly Respiratory: Present: Clear to Ascultation Cardiology: regular, normal heart rate Gastrointestinal: normal, normoactive bowel sounds Integumentary: other (No edema) - Lab 11/23/20 10:00 11/23/20 10:00 Most recent lab results ABG pH 7.425 (7.320-7.450) 11/23/20 03:03 ABG O2 Saturation 98.4 (0-100) 11/23/20 03:03 Calcium 7.9 mg/dL (8.4-10.2) L 11/23/20 10:00 Urine Creatinine 158.2 mg/dL (0.1-20.0) H 11/22/20 00:11 Urine Sodium 39 mmol/L 11/22/20 00:11 Medications & Allergies - Medications Allergies/Adverse Reactions: Allergies No Known Allergies Allergy (Verified 11/11/18 08:08) Home Medications: Home Medications Medication Instructions Recorded Confirmed Last Taken Type Pantoprazole [Protonix TAB] 40 mg PO QDAY #30 tablet 04/11/19 11/22/20 Unknown Rx AtorvaSTATin 20 mg PO QHS 06/13/19 11/22/20 06/12/19 21:00 History Tamsulosin 0.4 mg PO DAILY 06/13/19 11/22/20 06/12/19 21:00 History carvediloL [Coreg] 3.125 mg PO BID 06/13/19 11/22/20 06/11/19 21:00 History Gabapentin 300 mg PO BID 11/22/20 11/22/20 Unknown History Active Medications: Generic Name Dose Route Start Last Admin Trade Name Freq PRN Reason Stop Dose Admin Acetaminophen 650 mg 11/22/20 01:19 Acetaminophen 325 Mg Tab PO Q4H PRN Pain MILD(1-3)/Fever >100.5/BRYAN Albuterol 2.5 mg 11/22/20 01:19 Albuterol 2.5 Mg/3 Ml Nebu IH Q4HRT PRN Shortness Of Breath Albuterol/Ipratropium 1 ampul 11/22/20 02:00 11/23/20 07:14 Ipratropium/Albuterol Sulfate 3 Ml Ampul.Neb IH 1 ampul Q6HRT TERESA Administration Lipase/Protease/Amylase 1 each 11/22/20 09:07 Lipase 10,500/Protease 25,000/Amylase 43,750 (Units) Dr Ger FARIA PRN PRN For Clogged Feeding Tube Aspirin 81 mg 11/23/20 10:00 11/23/20 10:38 Aspirin 81 Mg Tab Chew PO 81 mg QDAY TERESA Administration Atorvastatin Calcium 40 mg 11/22/20 22:00 11/22/20 21:34 Atorvastatin 40 Mg Tab PO 40 mg QHS TERESA Administration Carvedilol 3.125 mg 11/22/20 10:00 11/23/20 10:39 Carvedilol 3.125 Mg Tab PO 3.125 mg BID TERESA Administration Fentanyl 50 mcg 11/22/20 07:48 Fentanyl 100 Mcg/2 Ml Inj IV Q10MIN PRN ANALGESIA Heparin Sodium (Porcine) 5,000 unit 11/22/20 06:00 11/23/20 05:17 Heparin 5,000 Unit/1 Ml Vial SUB-Q 5,000 unit Q8HR TERESA Administration Hydralazine HCl 10 mg 11/22/20 01:24 Hydralazine 20 Mg/1 Ml Inj IV Q6H PRN Blood Pressure Hydrophilic Ointment 1 applic 11/22/20 00:38 Lip Therapy Vaseline TP Q2HR PRN Dry Lips Dextrose/Sodium Chloride 1,000 mls @ 125 mls/hr 11/22/20 02:00 11/23/20 05:24 D5ns IV 125 mls/hr DIRECT TERESA Administration Ceftriaxone Sodium 2 gm in 100 mls @ 200 mls/hr 11/22/20 02:00 11/23/20 02:20 Rocephin/Ns 2 Gm/100 Ml IV 200 mls/hr Q24H TERESA Administration Protocol Propofol 1,000 mg in 100 mls @ 2.439 mls/hr 11/22/20 08:00 11/23/20 10:40 Diprivan 10 Mg/Ml IV 15 mcg/kg/min TITR TERESA 7.317 mls/hr Titration Protocol 5 MCG/KG/MIN Lansoprazole 30 mg 11/23/20 10:00 11/23/20 10:38 Lansoprazole 30 Mg Solutab FEEDTUBE 30 mg QDAY TERESA Administration Multi-Ingred Cream/Lotion/Oil/Oint 1 applic 11/22/20 00:38 Mineral Oil/Petrolatum, White Ophth Oint 3.5 Gm OU Q4HR PRN Dry Eye(s) Nitroglycerin 0.4 mg 11/22/20 01:25 Nitroglycerin 0.4 Mg Tab Subl SL Q5M PRN Chest Pain Ondansetron HCl 4 mg 11/22/20 01:19 Ondansetron 4 Mg/2 Ml Inj IV Q8H PRN Nausea And Vomiting Senna/Docusate Sodium 1 tab 11/22/20 10:00 11/23/20 10:38 Sennosides/Docusate Sodium 8.6/50 Mg Tab FEEDTUBE 1 tab BID TERESA Administration Simple Syrup 15 ml 11/22/20 09:07 Simple Syrup 15 Ml FEEDTUBE PRN PRN Hypoglycemia Simple Syrup 30 ml 11/22/20 09:07 Simple Syrup 15 Ml FEEDTUBE PRN PRN Hypoglycemia Sodium Bicarbonate 325 mg 11/22/20 09:07 Sodium Bicarbonate 325 Mg Tab FEEDTUBE PRN PRN For Clogged Feeding Tube Sodium Chloride 10 ml 11/22/20 10:00 11/23/20 10:39 Sodium Chloride 0.9% 10 Ml Flush Syringe IV 10 ml BID TERESA Administration Sodium Chloride 10 ml 11/22/20 01:19 Sodium Chloride 0.9% 10 Ml Flush Syringe IV PRN PRN LINE FLUSH Tamsulosin HCl 0.4 mg 11/22/20 10:00 11/23/20 10:38 Tamsulosin 0.4 Mg Cap PO 0.4 mg DAILY TERESA Administration Tramadol HCl 50 mg 11/22/20 01:25 Tramadol 50 Mg Tab PO Q6H PRN Pain, Moderate (4-6)
--- NOTE | 2020-11-23 13:51 | Progress Note ---
Assessment and Plan Assessment and plan: This is an 85-year-old male with COPD on home oxygen, GERD, hypertension, asthma, hyperlipidemia, vasopressin, bladder cancer admitted for acute hypoxic respiratory failure, UTI, acute kidney injury and electrolyte imbalances Neuro: Metabolic encephalopathy -11/21 CT head shows no acute intracranial abnormality, sinus disease -Sedated with propofol and fentanyl as needed -Aspiration precautions -Avoid delirium Cardiovascular Hypertension -Cardiology following -Carvedilol, aspirin, statin -Blood pressure monitor per protocol -Hydralazine as needed NSTEMI type II -Presented with CARRIE with elevated troponins -Per cardiology patient had a stress test in 2019 which showed no significant ischemia, normal LV function and echocardiogram which showed mild mitral stenosis -Repeat echocardiogram pending -As needed nitroglycerin Hyperlipidemia -Resume home statin therapy when appropriate Respiratory Acute hypoxic respiratory failure -Mechanical ventilation, wean as tolerated -VAP bundle -CCM following COPD -Currently on mechanical ventilation, wean as tolerated -Pulmonary hygiene -Per family patient is on home oxygen of 2 to 3 L however son states that the patient patients himself on up to 8 L because " he does not know how it works" FEN/GI: Acute kidney injury -Presented with a BUN/creatinine of 40/2.1 -Nephrology consulted -Calculated FENa suggesting prerenal state -Renal ultrasound shows asymmetric renal size, no hydronephrosis, no acute findings -Strict intake and output -Renally dose medications -Avoid nephrotoxic medications -Daily weights Hyperkalemia (resolved) -Presented with a potassium of 7.3 -S/p potassium cocktail in the ED Hyponatremia (resolved) -Presented with a sodium of 130 which was corrected to a sodium of 140 within 5 hours -Trend BMP Hypochloremia -Presented with a chloride of 91.1 -Trend chloride Tube feeding -NG tube -Nutrition consulted -SSI : hx of bladder cancer -Galeano catheter in place -resume home flomax Right kidney only, left atrophic kidney ID: Urinary tract infection -11/22 UA shows trace leukocyte esterase -Urine culture pending -Blood culture pending -Antibiotic therapy Lactic acidosis, resolved -Continue fluids GI/DVT prophylaxis: Heparin subcu, H2 zoila, SCDs to BLE while in bed Dispo: ICU Lines: Femoral CVL (to be removed by RN), galeano The high probability of a clinically significant, sudden or life threatening deterioration of the [resp] system(s) required my full and direct attention, intervention and personal management. The aggregate critical care time was [40] minutes. This time is in addition to time spent performing reported procedures but includes the following: [x] Data Review and interpretation [x] Patient assessment and monitoring of vital signs [x] Documentation [x] Medication orders and management History Interval history: This is a 85-year-old male with COPD on home oxygen of 2 to 3 L, GERD, hypertension, asthma, hyperlipidemia, valve replacement, bilateral cataract surgery, bladder cancer, bilateral enterectomy 4 to 5 years ago who presented to the emergency department after being found unresponsive on 1800 via EMS. Upon EMS arrival patient was found lying in bed unresponsive and hypoxic with SPO2 into the 50s on room air and was bagged by EMS and transported to [facility]. Upon arrival to the emergency department patient was hypoxic and patient was intubated. Work-up in the emergency department revealed hyperkalemia, acute kidney injury, lactic acidosis, elevated troponin and elevated BNP. Patient had a CT head in the emergency department which revealed sinus disease and no other acute findings, renal ultrasound which showed asymmetric renal size without hydronephrosis, CXR which showed mild increased interstitial prominence without pneumothorax and cardiomegaly. Patient was admitted to the hospital service with consults to nephrology, cardiology and critical care. 11/22: Patient sedation was changed to propofol from Versed and fentanyl IV push ordered by CCM, p.m. ABG is pending which may need to CPAP and extubation. Nephrology ordered a vasculitis work-up. Echocardiogram pending, patient's son relates that he received a COVID-19 vaccination x2 with Pfizer several months ago. I update his nephew and son at bedside. 11/23: Patient continues to be intubated, no overnight events. Continue sepsis work-up. Hospitalist Physical - Physical exam Narrative exam: General appearance: no acute distress, well-nourished EENT: PERRL, EOM intact, hearing intact, clear oral mucosa Neck: Present: supple, normal ROM Respiratory: Intubated, rales heard bilaterally. Cardiovascular: Regular rate/rhythm, Normal S1 & S2. No gallop, rub Extremities: no ischemia, No edema, normal temperature, normal color, Full ROM Abdominal: soft, no tenderness, non-distended, normal bowel sounds Integumentary: Present: clear, warm, dry no wounds, no erythema noted Neurologic: Sedated - Constitutional Vitals: Temp Pulse Resp BP Pulse Ox 98.3 F 84 18 148/76 97 11/23/20 12:00 11/23/20 10:39 11/23/20 07:14 11/23/20 10:39 11/23/20 13:18 General appearance: Present: other HEART Score - HEART Score Troponin: Troponin T 0.078 ng/mL (0.00-0.029) H 11/22/20 10:20 Results - Labs CBC & Chem 7: 11/23/20 10:00 11/23/20 10:00 Labs: Laboratory Last Values WBC 9.8 K/mm3 (4.5-11.0) 11/23/20 10:00 RBC 3.33 M/mm3 (3.65-5.03) L 11/23/20 10:00 Hgb 10.6 gm/dl (11.8-15.2) L 11/23/20 10:00 Hct 32.2 % (35.5-45.6) L 11/23/20 10:00 MCV 97 fl (84-94) H 11/23/20 10:00 MCH 32 pg (28-32) 11/23/20 10:00 MCHC 33 % (32-34) 11/23/20 10:00 RDW 14.8 % (13.2-15.2) 11/23/20 10:00 Plt Count 229 K/mm3 (140-440) 11/23/20 10:00 Lymph % (Auto) 16.1 % (13.4-35.0) 11/23/20 10:00 [place] % (Auto) 15.0 % (0.0-7.3) H 11/23/20 10:00 Eos % (Auto) 1.0 % (0.0-4.3) 11/23/20 10:00 Baso % (Auto) 0.5 % (0.0-1.8) 11/23/20 10:00 Lymph # (Auto) 1.6 K/mm3 (1.2-5.4) 11/23/20 10:00 [place] # (Auto) 1.5 K/mm3 (0.0-0.8) H 11/23/20 10:00 Eos # (Auto) 0.1 K/mm3 (0.0-0.4) 11/23/20 10:00 Baso # (Auto) 0.1 K/mm3 (0.0-0.1) 11/23/20 10:00 Seg Neutrophils % 67.4 % (40.0-70.0) 11/23/20 10:00 Seg Neutrophils # 6.6 K/mm3 (1.8-7.7) 11/23/20 10:00 PT 13.5 Sec. (12.2-14.9) 11/21/20 20:50 INR 0.98 (0.87-1.13) 11/21/20 20:50 APTT 32.1 Sec. (24.2-36.6) 11/21/20 20:50 ABG pH 7.425 (7.320-7.450) 11/23/20 03:03 POC ABG pCO2 38.9 mmHg (32.0-48.0) 11/23/20 03:03 POC ABG pO2 115.8 mmHg (83-108) H 11/23/20 03:03 POC ABG HCO3 25.0 11/23/20 03:03 ABG O2 Saturation 98.4 (0-100) 11/23/20 03:03 POC ABG Base Excess 0.6 11/23/20 03:03 ABG Hemoglobin 10.1 (12.0-17.5) L 11/23/20 03:03 ABG Oxyhemoglobin 97.7 (94-98) 11/23/20 03:03 ABG Methemoglobin 0.3 (0.0-1.5) 11/23/20 03:03 ABG Sodium 135.8 mmol/L (136.0-145.0) L 11/23/20 03:03 ABG Potassium 3.6 mmol/L (3.40-4.50) 11/23/20 03:03 ABG Chloride 104.0 mmol/L (98-107) 11/23/20 03:03 ABG Glucose 98 mg/dL (65-95) H 11/23/20 03:03 Carboxyhemoglobin 0.4 (0.5-1.5) L 11/23/20 03:03 FiO2 % 55.0 11/23/20 03:03 Sodium 141 mmol/L (137-145) 11/23/20 10:00 Potassium 3.8 mmol/L (3.6-5.0) 11/23/20 10:00 Chloride 105.4 mmol/L (98-107) 11/23/20 10:00 Carbon Dioxide 25 mmol/L (22-30) 11/23/20 10:00 Anion Gap 14 mmol/L 11/23/20 10:00 BUN 22 mg/dL (9-20) H 11/23/20 10:00 Creatinine 1.0 mg/dL (0.8-1.3) 11/23/20 10:00 Estimated GFR > 60 ml/min 11/23/20 10:00 BUN/Creatinine Ratio 22 % 11/23/20 10:00 Glucose 101 mg/dL (75-100) H 11/23/20 10:00 POC Glucose 119 mg/dL (70-105) H 11/23/20 12:12 Lactic Acid 1.20 mmol/L (0.7-2.0) 11/22/20 05:00 Calcium 7.9 mg/dL (8.4-10.2) L 11/23/20 10:00 Total Bilirubin 0.20 mg/dL (0.1-1.2) 11/23/20 10:00 AST 34 units/L (5-40) 11/23/20 10:00 ALT 41 units/L (7-56) 11/23/20 10:00 Alkaline Phosphatase 59 units/L (35-129) 11/23/20 10:00 Total Creatine Kinase 132 units/L (55-170) 11/22/20 10:20 CK-MB (CK-2) 3.3 ng/mL (0.0-4.0) 11/22/20 10:20 CK-MB (CK-2) Rel Index 2.5 (0-4) 11/22/20 10:20 Troponin T 0.078 ng/mL (0.00-0.029) H 11/22/20 10:20 NT-Pro-B Natriuret Pep 6998 pg/mL (0-900) H 11/21/20 20:50 Total Protein 5.5 g/dL (6.3-8.2) L 11/23/20 10:00 Albumin 2.8 g/dL (3.9-5) L 11/23/20 10:00 Albumin/Globulin Ratio 1.0 % 11/23/20 10:00 Triglycerides 84 mg/dL (2-149) 11/21/20 20:50 Cholesterol 125 mg/dL (50-199) 11/21/20 20:50 LDL Cholesterol Direct 57 mg/dL (50-130) 11/21/20 20:50 HDL Cholesterol 60 mg/dL (40-59) H 11/21/20 20:50 Cholesterol/HDL Ratio 2.08 % 11/21/20 20:50 TSH 1.290 mlU/mL (0.270-4.200) 11/21/20 20:50 Free T4 1.18 ng/dL (0.76-1.46) 11/21/20 20:50 Arterial Blood Glucose 98 mg/dL (65-95) H 11/23/20 03:03 Arterial Blood Ionized Calcium 4.4 mg/dL (4.6-5.3) L 11/23/20 03:03 Urine Color Yellow (Yellow) 11/22/20 05:00 Urine Turbidity Slightly-cloudy (Clear) 11/22/20 05:00 Urine pH 5.0 (5.0-7.0) 11/22/20 05:00 Ur Specific [place] 1.016 (1.003-1.030) 11/22/20 05:00 Urine Protein 30 mg/dl mg/dL (Negative) 11/22/20 05:00 Urine Glucose (UA) Neg mg/dL (Negative) 11/22/20 05:00 Urine Ketones Neg mg/dL (Negative) 11/22/20 05:00 Urine Blood Lg (Negative) 11/22/20 05:00 Urine Nitrite Neg (Negative) 11/22/20 05:00 Urine Bilirubin Neg (Negative) 11/22/20 05:00 Urine Urobilinogen < 2.0 mg/dL (<2.0) 11/22/20 05:00 Ur Leukocyte Esterase Tr (Negative) 11/22/20 05:00 Urine WBC (Auto) 33.0 /HPF (0.0-6.0) H 11/22/20 05:00 Urine RBC (Auto) 49.0 /HPF (0.0-6.0) 11/22/20 05:00 U Epithel Cells (Auto) 1.0 /HPF (0-13.0) 11/22/20 05:00 Hyaline Casts 4 /LPF 11/22/20 05:00 Urine Mucus 1+ /HPF 11/22/20 05:00 Urine Creatinine 158.2 mg/dL (0.1-20.0) H 11/22/20 00:11 Urine Sodium 39 mmol/L 11/22/20 00:11 Fraction Sodium Excret 0.3 11/22/20 00:11 Urine Opiates Screen Presumptive negative 11/22/20 00:11 Urine Methadone Screen Presumptive negative 11/22/20 00:11 Ur Barbiturates Screen Presumptive negative 11/22/20 00:11 Ur Phencyclidine Scrn Presumptive negative 11/22/20 00:11 Ur Amphetamines Screen Presumptive negative 11/22/20 00:11 U Benzodiazepines Scrn Presumptive negative 11/22/20 00:11 Urine Cocaine Screen Presumptive negative 11/22/20 00:11 U Marijuana (THC) Screen Presumptive negative 11/22/20 00:11 Drugs of Abuse Note Disclamer 11/22/20 00:11 Plasma/Serum Alcohol < 0.01 % (0-0.07) 11/21/20 20:50 Hepatitis A IgM Ab Non-reactive (NonReactive) 11/22/20 16:00 Hep Bs Antigen Non-reactive (Negative) 11/22/20 16:00 Hep B Core IgM Ab Non-reactive (NonReactive) 11/22/20 16:00 Hepatitis C Antibody Reactive (NonReactive) A 11/22/20 16:00 Microbiology: Microbiology 11/22/20 00:40 Peripheral/Venous Blood Culture - Preliminary NO GROWTH AFTER 24 HOURS 11/22/20 00:40 Peripheral/Venous Blood Culture - Preliminary NO GROWTH AFTER 24 HOURS Galeano/IV: Voiding Method Indwelling Catheter Active Medications - Current Medications Current Medications: Generic Name Dose Route Start Last Admin Trade Name Freq PRN Reason Stop Dose Admin Acetaminophen 650 mg 11/22/20 01:19 Acetaminophen 325 Mg Tab PO Q4H PRN Pain MILD(1-3)/Fever >100.5/BRYAN Albuterol 2.5 mg 11/22/20 01:19 Albuterol 2.5 Mg/3 Ml Nebu IH Q4HRT PRN Shortness Of Breath Albuterol/Ipratropium 1 ampul 11/22/20 02:00 11/23/20 07:14 Ipratropium/Albuterol Sulfate 3 Ml Ampul.Neb IH 1 ampul Q6HRT TERESA Administration Lipase/Protease/Amylase 1 each 11/22/20 09:07 Lipase 10,500/Protease 25,000/Amylase 43,750 (Units) Dr Cyr FEEDTUBE PRN PRN For Clogged Feeding Tube Aspirin 81 mg 11/23/20 10:00 11/23/20 10:38 Aspirin 81 Mg Tab Chew PO 81 mg QDAY TERESA Administration Atorvastatin Calcium 40 mg 11/22/20 22:00 11/22/20 21:34 Atorvastatin 40 Mg Tab PO 40 mg QHS TERESA Administration Carvedilol 3.125 mg 11/22/20 10:00 11/23/20 10:39 Carvedilol 3.125 Mg Tab PO 3.125 mg BID TERESA Administration Fentanyl 50 mcg 11/22/20 07:48 Fentanyl 100 Mcg/2 Ml Inj IV Q10MIN PRN ANALGESIA Heparin Sodium (Porcine) 5,000 unit 11/22/20 06:00 11/23/20 05:17 Heparin 5,000 Unit/1 Ml Vial SUB-Q 5,000 unit Q8HR TERESA Administration Hydralazine HCl 10 mg 11/22/20 01:24 Hydralazine 20 Mg/1 Ml Inj IV Q6H PRN Blood Pressure Hydrophilic Ointment 1 applic 11/22/20 00:38 Lip Therapy Vaseline TP Q2HR PRN Dry Lips Dextrose/Sodium Chloride 1,000 mls @ 75 mls/hr 11/22/20 02:00 11/23/20 05:24 D5ns IV 125 mls/hr DIRECT TERESA Administration Ceftriaxone Sodium 2 gm in 100 mls @ 200 mls/hr 11/22/20 02:00 11/23/20 02:20 Rocephin/Ns 2 Gm/100 Ml IV 200 mls/hr Q24H TERESA Administration Protocol Propofol 1,000 mg in 100 mls @ 2.439 mls/hr 11/22/20 08:00 11/23/20 10:40 Diprivan 10 Mg/Ml IV 15 mcg/kg/min TITR TERESA 7.317 mls/hr Titration Protocol 5 MCG/KG/MIN Lansoprazole 30 mg 11/23/20 10:00 11/23/20 10:38 Lansoprazole 30 Mg Solutab FEEDTUBE 30 mg QDAY TERESA Administration Multi-Ingred Cream/Lotion/Oil/Oint 1 applic 11/22/20 00:38 Mineral Oil/Petrolatum, White Ophth Oint 3.5 Gm OU Q4HR PRN Dry Eye(s) Nitroglycerin 0.4 mg 11/22/20 01:25 Nitroglycerin 0.4 Mg Tab Subl SL Q5M PRN Chest Pain Ondansetron HCl 4 mg 11/22/20 01:19 Ondansetron 4 Mg/2 Ml Inj IV Q8H PRN Nausea And Vomiting Senna/Docusate Sodium 1 tab 11/22/20 10:00 11/23/20 10:38 Sennosides/Docusate Sodium 8.6/50 Mg Tab FEEDTUBE 1 tab BID TERESA Administration Simple Syrup 15 ml 11/22/20 09:07 Simple Syrup 15 Ml FEEDTUBE PRN PRN Hypoglycemia Simple Syrup 30 ml 11/22/20 09:07 Simple Syrup 15 Ml FEEDTUBE PRN PRN Hypoglycemia Sodium Bicarbonate 325 mg 11/22/20 09:07 Sodium Bicarbonate 325 Mg Tab FEEDTUBE PRN PRN For Clogged Feeding Tube Sodium Chloride 10 ml 11/22/20 10:00 11/23/20 10:39 Sodium Chloride 0.9% 10 Ml Flush Syringe IV 10 ml BID TERESA Administration Sodium Chloride 10 ml 11/22/20 01:19 Sodium Chloride 0.9% 10 Ml Flush Syringe IV PRN PRN LINE FLUSH Tamsulosin HCl 0.4 mg 11/22/20 10:00 11/23/20 10:38 Tamsulosin 0.4 Mg Cap PO 0.4 mg DAILY TERESA Administration Tramadol HCl 50 mg 11/22/20 01:25 Tramadol 50 Mg Tab PO Q6H PRN Pain, Moderate (4-6) Nutrition/Malnutrition Assess - Dietary Evaluation Nutrition/Malnutrition Findings: Nutrition Notes Start: 11/22/20 08:53 Freq: Status: Active Protocol: Document 11/22/20 08:53 CW (Rec: 11/22/20 09:06 CW [id number]) Nutrition Notes Need for Assessment generated from: MD Order Initial or Follow up Assessment Current Diagnosis Acute Kidney Injury,COPD, Coronary Artery Disease, Diabetes,Hypertension,Heart Failure,Respiratory Failure, Hyperlipidemia Other Pertinent Diagnosis AMS, Current Diet NPO Labs/Tests bun 41 Cr 1.8 K 7.1, 5.3, 4.7 Pertinent Medications D5NS at 125 ml/hr kionex humulin 2L NS Height 5 ft 3 in Weight 81.3 kg [place] Body Weight (kg) 56.36 BMI 31.7 Weight change and time frame 15% weight gain x 3 months based on 09/08/20 adm (weight increase likely r/t mechanical vent ) Weight Status Obese Subjective/Other Information MD consult for write/manage TF . Pt on mechanical vent at this time. D/t elevated K on adm, will start TF on Nepro. Burn Absent Trauma Absent Difficulty In Swallowing Current % PO Negligible #1 Nutrition Diagnosis Inadequate oral intake Etiology pt unable to consume PO As Evidenced by Signs and Symptoms Pt on mechanical vent Is patient on ventilator? Yes Is Patient Ambulatory and/or Out of Bed No REE-([employer] [facility]-confined to bed) 1673.028 Kcal/Kg value to use for calculation 17 Approximate Energy Requirements Using 1382 kcal/Kg Calculation Used for Recommendations Kcal/kg Additional Notes protein needs: >113g (>2g/ kgIBW) fluid needs: 1 ml/kcal or per MD order Nutrition Intervention Change Diet Order: Initiate TF regimen Nutrition Support: Nepro at 35 ml/hr with a free water flush of 150 ml q4h Kcal 1,512 Protein (gm) 68 Fluid (mL) 611 Goal #1 Initiate TF Goal #2 Meet at least 75% of kcal and protein needs as best as possible via TF Anticipated Discharge Needs: unable to determine at this time Follow-Up By: 11/24/20 Additional Comments F/U for start and TF tolerance , renal related labs, vent status
[2020-11-23] MEDS: hydrALAZINE 20 MG/1 ML INJ IV PRN (21:57)
[2020-11-24] MEDS ORDERED: HALOPERIDOL LACTATE 5 MG/1 ML INJ IM ONE
[2020-11-24] MEDS ORDERED: HALOPERIDOL LACTATE 5 MG/1 ML INJ ONE (00:06)
[2020-11-24] MEDS ORDERED: LORazepam 2 MG/ML VIAL ONE (00:17)
[2020-11-24] MEDS: IPRATROPIUM/ALBUTEROL SULFATE 3 ML AMPUL.NEB IH SCH ×4 (02:16→20:31)
[2020-11-24] MEDS ORDERED: SODIUM BICARB 8.4% 50 MEQ/50 ML SYRINGE IV ONE ×2 (02:58→03:11)
--- NOTE | 2020-11-24 04:27 | XRay Report ---
XR abd series w cxr 1V INDICATION / CLINICAL INFORMATION: distended and firm abd. COMPARISON: 11/22/2020 FINDINGS: SUPPORT DEVICES: None. HEART / MEDIASTINUM: No significant abnormality. LUNGS / PLEURA: Lungs are clear. Left costophrenic sulcus blunted.. No pneumothorax. ABDOMEN: Nonobstructive bowel gas pattern. No pneumoperitoneum. ADDITIONAL FINDINGS: No significant additional findings. IMPRESSION: 1. Small left pleural effusion. 2. Nonobstructive bowel gas pattern. Signer Name: Tony Bustamante MD Signed: 11/24/2020 4:22 AM Workstation Name: [id number]
[2020-11-24] MEDS: HEPARIN 5,000 UNIT/1 ML VIAL SUB-Q SCH ×3 (06:20→21:17)
[2020-11-24] MEDS: cefTRIAXone/NS 2 GM/100 ML 2 GM/100 ML BAG IV SCH (06:21)
[2020-11-24] MEDS ORDERED: LORazepam 2 MG/ML VIAL IV ONE ×2 (08:16)
[2020-11-24] MEDS: hydrALAZINE 20 MG/1 ML INJ IV PRN (08:30)
[2020-11-24] MEDS: D5W/0.9% NACL 1,000 ML IV SCH (08:36)
[2020-11-24] MEDS: HALOPERIDOL LACTATE 5 MG/1 ML INJ IM PRN ×3 (09:04→21:15)
--- NOTE | 2020-11-24 09:34 | Progress Note ---
Assessment and Plan Echo reviewed - EF 50-55%, mild diastolic dysfxn, severe pulm HTN w/RVSP 74mmHg, mild TR, moderate MS. May benefit from HECTOR for evaluation of mitral valve when clinically stable off mechanical ventilation. Will add low-dose IV Lasix 20mg daily given severe pulm HTN. Pt seen in conjunction with Dr. Echeverria, who agrees with the assessment and plan of care. - Patient Problems (1) Acute metabolic encephalopathy Current Visit: Yes Status: Acute (2) Acute and chronic respiratory failure ([id number]) Current Visit: Yes Status: Acute Qualifiers: Respiratory failure complication: hypoxia Qualified Code(s): J96.21 - Acute and chronic respiratory failure with hypoxia (3) COPD (chronic obstructive pulmonary disease) Current Visit: Yes Status: Chronic (4) Pulmonary hypertension Current Visit: Yes Status: Chronic (5) Acute kidney injury Current Visit: Yes Status: Acute (6) Anemia Current Visit: Yes Status: Chronic (7) NSTEMI (non-ST elevated myocardial infarction) Current Visit: Yes Status: Acute Plan to address problem: Type 2 (8) CAD (coronary artery disease) Current Visit: Yes Status: Chronic Qualifiers: Coronary Disease-Associated Artery/Lesion type: [place] artery [place] vs. transplanted heart: [place] heart (9) History of coronary artery bypass graft Current Visit: Yes Status: Chronic (10) S/P mitral valve repair Current Visit: Yes Status: Chronic Plan to address problem: 2005 (11) Hypertension Current Visit: Yes Status: Chronic Qualifiers: Hypertension type: primary hypertension Qualified Code(s): I10 - Essential (primary) hypertension (12) Type 2 diabetes mellitus Current Visit: Yes Status: Chronic Qualifiers: Qualified Code(s): E11.9 - Type 2 diabetes mellitus without complications (13) Carotid stenosis Current Visit: Yes Status: Chronic Qualifiers: Laterality: right Qualified Code(s): I65.21 - Occlusion and stenosis of right carotid artery (14) S/P carotid endarterectomy Current Visit: Yes Status: Chronic (15) H/O: GI bleed Current Visit: Yes Status: Chronic Subjective Date of service: 11/24/20 Principal diagnosis: NSTEMI Type 2 Interval history: Extubated yesterday, on BiPAP this AM but very agitated. No family present upon assessment. Objective Last Vital Signs Temp 99.2 F 11/24/20 08:00 Pulse 101 H 11/24/20 12:00 Resp 38 H 11/24/20 12:00 BP 121/58 11/24/20 12:00 Pulse Ox 97 11/24/20 12:00 - Physical Examination General: Other (agitated, on BiPAP) HEENT: Positive: EOMI, Normocephaly Neck: Positive: neck supple, trachea midline. Negative: JVD/HJR Cardiac: Positive: Reg Rate and Rhythm, S1/S2, Systolic Murmur (2/6) Lungs: Positive: Decreased Breath Sounds Neuro: Positive: Other (agitated) Abdomen: Positive: Soft Skin: Negative: Rash Extremities: Present: lower extr. pulses. Absent: edema - Labs and Meds Cardiac Enzymes 11/23/20 Range/Units 10:00 AST 34 (5-40) units/L CBC 11/23/20 Range/Units 10:00 WBC 9.8 (4.5-11.0) K/mm3 RBC 3.33 L (3.65-5.03) M/mm3 Hgb 10.6 L (11.8-15.2) gm/dl Hct 32.2 L (35.5-45.6) % Plt Count 229 (140-440) K/mm3 Lymph # (Auto) 1.6 (1.2-5.4) K/mm3 [place] # (Auto) 1.5 H (0.0-0.8) K/mm3 Eos # (Auto) 0.1 (0.0-0.4) K/mm3 Baso # (Auto) 0.1 (0.0-0.1) K/mm3 Comprehensive Metabolic Panel 11/23/20 Range/Units 10:00 Sodium 141 (137-145) mmol/L Potassium 3.8 (3.6-5.0) mmol/L Chloride 105.4 (98-107) mmol/L Carbon Dioxide 25 (22-30) mmol/L BUN 22 H (9-20) mg/dL Creatinine 1.0 (0.8-1.3) mg/dL Glucose 101 H (75-100) mg/dL Calcium 7.9 L (8.4-10.2) mg/dL AST 34 (5-40) units/L ALT 41 (7-56) units/L Alkaline Phosphatase 59 (35-129) units/L Total Protein 5.5 L (6.3-8.2) g/dL Albumin 2.8 L (3.9-5) g/dL - Imaging and Cardiology EKG: report reviewed, image reviewed Pharmacologic stress test: report reviewed (05/2019 - no evidence of ischemia) Echo: pending, other (05/2019 - normal LV function, mild mitral stenosis) - Telemetry EKG Rhythm: Sinus Rhythm - EKG Sinus rhythms and dysrhythmias: sinus rhythm Repolarization changes or abnormalities: nonspecific abnormality, ST segment, and/or T wave
--- NOTE | 2020-11-24 10:15 | Progress Note ---
Assessment and Plan Impression * Acute kidney injury * Severe hyperkalemia * Respiratory failure * Coronary artery disease * Hypertension * COPD * Bladder cancer * Hepatitis C Recommendations * Hyperkalemia has been corrected with aggressive medical management. * Renal function is much improved . Patient is also currently nonoliguric * Today's chemistries are still pending * His urine shows 1+ dipstick protein and large blood. Fractional excretion of sodium is 0.4%. He most likely has a prerenal component. However given his microhematuria need to rule out vasculitis. Vasculitis work-up as ordered * Renal ultrasound shows atrophic left kidney. No obstruction. * Monitor fluid status and electrolytes closely * Avoid nephrotoxins * Shall follow patient peripherally Subjective Date of service: 11/24/20 Principal diagnosis: abnl trop Interval history: Patient has been extubated. Is currently on BiPAP with 50% FiO2. Oxygen saturation is 97%. IV fluid infusing. Objective - Vital Signs Vital signs: Vital Signs - 12hr 11/23/20 11/23/20 11/23/20 22:21 22:31 22:41 Temperature Pulse Rate 121 H 123 H 111 H Pulse Rate [ Anterior Bilateral Throughout] Respiratory 32 H 44 H 23 Rate Respiratory Rate [Anterior Bilateral Throughout] Blood Pressure 199/82 199/82 174/86 O2 Sat by Pulse 99 96 97 Oximetry 11/23/20 11/23/20 11/23/20 22:51 22:58 23:01 Temperature Pulse Rate 117 H 116 H 114 H Pulse Rate [ Anterior Bilateral Throughout] Respiratory 40 H 40 H 38 H Rate Respiratory Rate [Anterior Bilateral Throughout] Blood Pressure 174/86 174/86 173/85 O2 Sat by Pulse 96 98 95 Oximetry 11/23/20 11/23/20 11/24/20 23:11 23:39 00:01 Temperature 99.5 F Pulse Rate 110 H 132 H Pulse Rate [ Anterior Bilateral Throughout] Respiratory 37 H 43 H Rate Respiratory Rate [Anterior Bilateral Throughout] Blood Pressure 173/85 230/150 O2 Sat by Pulse 99 95 Oximetry 11/24/20 11/24/20 11/24/20 00:56 01:01 01:11 Temperature Pulse Rate 135 H 135 H 134 H Pulse Rate [ Anterior Bilateral Throughout] Respiratory 47 H 48 H Rate Respiratory Rate [Anterior Bilateral Throughout] Blood Pressure 177/82 177/82 O2 Sat by Pulse 93 91 Oximetry 07/10/1011/24/20 11/24/20 02:01 03:00 03:57 Temperature 98.9 F Pulse Rate 116 H 108 H Pulse Rate [ Anterior Bilateral Throughout] Respiratory 50 H 47 H Rate Respiratory Rate [Anterior Bilateral Throughout] Blood Pressure 131/77 129/69 O2 Sat by Pulse 96 95 Oximetry 11/24/20 11/24/20 11/24/20 04:00 04:01 04:05 Temperature Pulse Rate 116 H 134 H Pulse Rate [ Anterior Bilateral Throughout] Respiratory 50 H Rate Respiratory Rate [Anterior Bilateral Throughout] Blood Pressure 129/69 O2 Sat by Pulse 98 95 Oximetry 11/24/20 11/24/20 11/24/20 04:46 05:01 06:00 Temperature Pulse Rate 121 H 120 H 101 H Pulse Rate [ Anterior Bilateral Throughout] Respiratory 30 H 29 H 36 H Rate Respiratory Rate [Anterior Bilateral Throughout] Blood Pressure 159/82 160/85 116/50 O2 Sat by Pulse 98 98 96 Oximetry 11/24/20 11/24/20 11/24/20 07:01 08:00 08:01 Temperature 99.2 F Pulse Rate 125 H 127 H 127 H Pulse Rate [ Anterior Bilateral Throughout] Respiratory 46 H 45 H 23 Rate Respiratory Rate [Anterior Bilateral Throughout] Blood Pressure 178/89 184/103 184/103 O2 Sat by Pulse 97 98 98 Oximetry 11/24/20 11/24/20 11/24/20 08:30 09:00 09:59 Temperature Pulse Rate 120 H 109 H Pulse Rate [ 111 H Anterior Bilateral Throughout] Respiratory 46 H Rate Respiratory 44 H Rate [Anterior Bilateral Throughout] Blood Pressure 184/103 119/52 O2 Sat by Pulse 95 Oximetry - General Appearance General appearance: well-developed, well-nourished, appears stated age, other (Lethargic. Not answering questions or following commands) EENT: PERRL, mucous membranes moist Neck: no JVD, no thyromegaly Respiratory: Present: Ronchi (Few scattered rhonchi) Cardiology: regular, normal heart rate Gastrointestinal: normal, normoactive bowel sounds Integumentary: other (No edema) - Lab 11/23/20 10:00 11/23/20 10:00 Most recent lab results ABG pH 7.281 (7.320-7.450) L 11/24/20 01:48 ABG O2 Saturation 96.9 (0-100) 11/24/20 01:48 Calcium 7.9 mg/dL (8.4-10.2) L 11/23/20 10:00 Urine Creatinine 158.2 mg/dL (0.1-20.0) H 11/22/20 00:11 Urine Sodium 39 mmol/L 11/22/20 00:11 Medications & Allergies - Medications Allergies/Adverse Reactions: Allergies No Known Allergies Allergy (Verified 11/11/18 08:08) Home Medications: Home Medications Medication Instructions Recorded Confirmed Last Taken Type Pantoprazole [Protonix TAB] 40 mg PO QDAY #30 tablet 04/11/19 11/22/20 Unknown Rx AtorvaSTATin 20 mg PO QHS 06/13/19 11/22/20 06/12/19 21:00 History Tamsulosin 0.4 mg PO DAILY 06/13/19 11/22/20 06/12/19 21:00 History carvediloL [Coreg] 3.125 mg PO BID 06/13/19 11/22/20 06/11/19 21:00 History Gabapentin 300 mg PO BID 11/22/20 11/22/20 Unknown History Active Medications: Generic Name Dose Route Start Last Admin Trade Name Freq PRN Reason Stop Dose Admin Acetaminophen 650 mg 11/23/20 15:29 Acetaminophen 325 Mg Tab PO Q4H PRN Pain, Mild (1-3) Albuterol 2.5 mg 11/22/20 01:19 Albuterol 2.5 Mg/3 Ml Nebu IH Q4HRT PRN Shortness Of Breath Albuterol/Ipratropium 1 ampul 11/22/20 02:00 11/24/20 09:59 Ipratropium/Albuterol Sulfate 3 Ml Ampul.Neb IH 1 ampul Q6HRT TERESA Administration Lipase/Protease/Amylase 1 each 11/22/20 09:07 Lipase 10,500/Protease 25,000/Amylase 43,750 (Units) Dr Ger FARIA PRN PRN For Clogged Feeding Tube Aspirin 81 mg 11/23/20 10:00 11/23/20 10:38 Aspirin 81 Mg Tab Chew PO 81 mg QDAY TERESA Administration Atorvastatin Calcium 40 mg 11/22/20 22:00 11/23/20 21:58 Atorvastatin 40 Mg Tab PO 40 mg QHS TERESA Administration Carvedilol 3.125 mg 11/22/20 10:00 07/04/21 21:58 Carvedilol 3.125 Mg Tab PO 3.125 mg BID TERESA Administration Fentanyl 50 mcg 11/22/20 07:48 Fentanyl 100 Mcg/2 Ml Inj IV Q10MIN PRN ANALGESIA Haloperidol Lactate 5 mg 11/24/20 08:15 11/24/20 09:04 Haloperidol Lactate 5 Mg/1 Ml Inj IM 5 mg Q6H PRN Administration Agitation Heparin Sodium (Porcine) 5,000 unit 11/22/20 06:00 11/24/20 06:20 Heparin 5,000 Unit/1 Ml Vial SUB-Q 5,000 unit Q8HR TERESA Administration Hydralazine HCl 10 mg 11/22/20 01:24 11/24/20 08:30 Hydralazine 20 Mg/1 Ml Inj IV 10 mg Q6H PRN Administration Blood Pressure Hydrophilic Ointment 1 applic 11/22/20 00:38 Lip Therapy Vaseline TP Q2HR PRN Dry Lips Dextrose/Sodium Chloride 1,000 mls @ 75 mls/hr 11/22/20 02:00 11/24/20 08:36 D5ns IV 125 mls/hr DIRECT TERESA Administration Ceftriaxone Sodium 2 gm in 100 mls @ 200 mls/hr 11/22/20 02:00 11/24/20 06:21 Rocephin/Ns 2 Gm/100 Ml IV 200 mls/hr Q24H TERESA Administration Protocol Propofol 1,000 mg in 100 mls @ 2.439 mls/hr 11/22/20 08:00 11/23/20 16:52 Diprivan 10 Mg/Ml IV 0 mcg/kg/min TITR TERESA 0 mls/hr Titration Protocol 5 MCG/KG/MIN Lansoprazole 30 mg 11/23/20 10:00 11/23/20 10:38 Lansoprazole 30 Mg Solutab FEEDTUBE 30 mg QDAY TERESA Administration Multi-Ingred Cream/Lotion/Oil/Oint 1 applic 11/22/20 00:38 Mineral Oil/Petrolatum, White Ophth Oint 3.5 Gm OU Q4HR PRN Dry Eye(s) Nitroglycerin 0.4 mg 11/22/20 01:25 Nitroglycerin 0.4 Mg Tab Subl SL Q5M PRN Chest Pain Ondansetron HCl 4 mg 11/22/20 01:19 Ondansetron 4 Mg/2 Ml Inj IV Q8H PRN Nausea And Vomiting Senna/Docusate Sodium 1 tab 11/22/20 10:00 11/23/20 21:57 Sennosides/Docusate Sodium 8.6/50 Mg Tab FEEDTUBE 1 tab BID TERESA Administration Simple Syrup 15 ml 11/22/20 09:07 Simple Syrup 15 Ml FEEDTUBE PRN PRN Hypoglycemia Simple Syrup 30 ml 11/22/20 09:07 Simple Syrup 15 Ml FEEDTUBE PRN PRN Hypoglycemia Sodium Bicarbonate 325 mg 11/22/20 09:07 Sodium Bicarbonate 325 Mg Tab FEEDTUBE PRN PRN For Clogged Feeding Tube Sodium Chloride 10 ml 11/22/20 10:00 11/24/20 09:05 Sodium Chloride 0.9% 10 Ml Flush Syringe IV 10 ml BID TERESA Administration Sodium Chloride 10 ml 11/22/20 01:19 Sodium Chloride 0.9% 10 Ml Flush Syringe IV PRN PRN LINE FLUSH Tamsulosin HCl 0.4 mg 11/22/20 10:00 11/23/20 10:38 Tamsulosin 0.4 Mg Cap PO 0.4 mg DAILY TERESA Administration Tramadol HCl 50 mg 11/22/20 01:25 Tramadol 50 Mg Tab PO Q6H PRN Pain, Moderate (4-6)
[2020-11-24 10:26] LABS: BUN/Creatinine Ratio 17; Blood Urea Nitrogen 19 mg/dL (9-20); Calcium 8.5 mg/dL (8.4-10.2); Hemolysis Index 4
[2020-11-24] MEDS: FUROSEMIDE 20 MG/2 ML INJ IV SCH (11:21)
[2020-11-24] MEDS: ASPIRIN 81 MG TAB CHEW PO SCH (12:32)
[2020-11-24] MEDS: TAMSULOSIN 0.4 MG CAP PO SCH (12:32)
[2020-11-24] MEDS: carvediloL 3.125 MG TAB PO SCH ×2 (12:32→21:17)
[2020-11-24] MEDS: LANSOPRAZOLE 30 MG SOLUTAB FEEDTUBE SCH (12:32)
[2020-11-24] MEDS: SENNOSIDES/DOCUSATE SODIUM 8.6/50 MG TAB FEEDTUBE SCH ×2 (12:33→21:18)
[2020-11-24] MEDS ORDERED: FUROSEMIDE 40 MG/4 ML INJ IV NR (14:51)
[2020-11-24] MEDS ORDERED: methylPREDNISolone Sod Succinate 125 MG/2 ML INJ IV STA (14:52)
--- NOTE | 2020-11-24 14:57 | Progress Note ---
Assessment and Plan Imp: 1. Acute respiratory failure, hypoxia 2. COPD exac. 3. CARRIE 4. Hypernatremia 5. Metabolic encephalopathy Rec: 1. Add Solumedrol IV scheduled including 125mg IV dose stat 2. Additional IV Lasix given stat 3. Duonebs QID as ordered 4. Change IVFs to D5W and decrease rate; labs in AM 5. DVT PPx; consider CTA chest if continued non-improvement 6. Support with BIPAP; however, low threshold for intubation if he fails to improve or worsens 7. Prognosis guarded to poor; situation discussed with family by phone, they expressed understanding; all questions answered to the best of my ability CCt 31 minutes Subjective Date of service: 11/24/20 Principal diagnosis: Acute respiratory failure Interval history: Agitated/restless on BIPAP, cannot give history. Tachypneic. Active Medications Acetaminophen (Acetaminophen 325 Mg Tab) 650 mg PO Q4H PRN PRN Reason: Pain, Mild (1-3) Albuterol (Albuterol 2.5 Mg/3 Ml Nebu) 2.5 mg IH Q4HRT PRN PRN Reason: Shortness Of Breath Albuterol/Ipratropium (Ipratropium/Albuterol Sulfate 3 Ml Ampul.Neb) 1 ampul IH Q6HRT [facility] Last Admin: 11/24/20 20:31 Dose: 1 ampul Documented by: Lipase/Protease/Amylase (Lipase 10,500/Protease 25,000/Amylase 43,750 (Units) Dr Cyr) 1 each FEEDTUBE PRN PRN PRN Reason: For Clogged Feeding Tube Aspirin (Aspirin 81 Mg Tab Chew) 81 mg PO QDAY [facility] Last Admin: 11/24/20 12:32 Dose: Not Given Documented by: Atorvastatin Calcium (Atorvastatin 40 Mg Tab) 40 mg PO QHS [facility] Last Admin: 11/24/20 21:17 Dose: Not Given Documented by: Budesonide (Budesonide 0.5 Mg/2 Ml Nebu) 0.5 mg IH Q12HRT [facility] Last Admin: 11/24/20 20:33 Dose: Not Given Documented by: Carvedilol (Carvedilol 3.125 Mg Tab) 3.125 mg PO BID [facility] Last Admin: 11/24/20 21:17 Dose: Not Given Documented by: Furosemide (Furosemide 20 Mg/2 Ml Inj) 20 mg IV QDAY [facility] Last Admin: 11/24/20 11:21 Dose: 20 mg Documented by: Haloperidol Lactate (Haloperidol Lactate 5 Mg/1 Ml Inj) 5 mg IM Q6H PRN PRN Reason: Agitation Last Admin: 11/24/20 21:15 Dose: 5 mg Documented by: Heparin Sodium (Porcine) (Heparin 5,000 Unit/1 Ml Vial) 5,000 unit SUB-Q Q8HR [facility] Last Admin: 11/24/20 21:17 Dose: 5,000 unit Documented by: Hydralazine HCl (Hydralazine 20 Mg/1 Ml Inj) 10 mg IV Q6H PRN PRN Reason: Blood Pressure Last Admin: 11/24/20 08:30 Dose: 10 mg Documented by: Hydrophilic Ointment (Lip Therapy Vaseline) 1 applic TP Q2HR PRN PRN Reason: Dry Lips Ceftriaxone Sodium (Rocephin/Ns 2 Gm/100 Ml) 2 gm in 100 mls @ 200 mls/hr IV Q24H [facility]; Protocol Last Admin: 11/24/20 06:21 Dose: 200 mls/hr Documented by: Dextrose (D5w) 1,000 mls @ 42 mls/hr IV DIRECT [facility] Last Admin: 11/24/20 15:11 Dose: 42 mls/hr Documented by: Lansoprazole (Lansoprazole 30 Mg Solutab) 30 mg FEEDTUBE QDAY [facility] Last Admin: 11/24/20 12:32 Dose: Not Given Documented by: Lorazepam (Lorazepam 2 Mg/Ml Vial) 1 mg IV Q4H PRN PRN Reason: Agitation Last Admin: 11/24/20 20:07 Dose: 1 mg Documented by: Methylprednisolone Sodium Succinate (Methylprednisolone Sod Succinate 125 Mg/2 Ml Inj) 80 mg IV Q8HR [facility] Last Admin: 11/24/20 21:17 Dose: 80 mg Documented by: Multi-Ingred Cream/Lotion/Oil/Oint (Mineral Oil/Petrolatum, White Ophth Oint 3.5 Gm) 1 applic OU Q4HR PRN PRN Reason: Dry Eye(s) Nitroglycerin (Nitroglycerin 0.4 Mg Tab Subl) 0.4 mg SL Q5M PRN PRN Reason: Chest Pain Ondansetron HCl (Ondansetron 4 Mg/2 Ml Inj) 4 mg IV Q8H PRN PRN Reason: Nausea And Vomiting Senna/Docusate Sodium (Sennosides/Docusate Sodium 8.6/50 Mg Tab) 1 tab FEEDTUBE BID [facility] Last Admin: 11/24/20 21:18 Dose: Not Given Documented by: Simple Syrup (Simple Syrup 15 Ml) 15 ml FEEDTUBE PRN PRN PRN Reason: Hypoglycemia Simple Syrup (Simple Syrup 15 Ml) 30 ml FEEDTUBE PRN PRN PRN Reason: Hypoglycemia Sodium Bicarbonate (Sodium Bicarbonate 325 Mg Tab) 325 mg FEEDTUBE PRN PRN PRN Reason: For Clogged Feeding Tube Sodium Chloride (Sodium Chloride 0.9% 10 Ml Flush Syringe) 10 ml IV BID [facility] Last Admin: 11/24/20 21:18 Dose: 10 ml Documented by: Sodium Chloride (Sodium Chloride 0.9% 10 Ml Flush Syringe) 10 ml IV PRN PRN PRN Reason: LINE FLUSH Tamsulosin HCl (Tamsulosin 0.4 Mg Cap) 0.4 mg PO DAILY [facility] Last Admin: 11/24/20 12:32 Dose: Not Given Documented by: Objective Vital Signs - 12hr 11/24/20 11/24/20 11/24/20 03:00 03:57 04:00 Temperature 98.9 F Pulse Rate 108 H Pulse Rate [ Anterior Bilateral Throughout] Respiratory 47 H Rate Respiratory Rate [Anterior Bilateral Throughout] Blood Pressure 129/69 O2 Sat by Pulse 95 98 Oximetry 11/24/20 11/24/20 11/24/20 04:01 04:05 04:46 Temperature Pulse Rate 116 H 134 H 121 H Pulse Rate [ Anterior Bilateral Throughout] Respiratory 50 H 30 H Rate Respiratory Rate [Anterior Bilateral Throughout] Blood Pressure 129/69 159/82 O2 Sat by Pulse 95 98 Oximetry 11/24/20 11/24/20 11/24/20 05:01 06:00 07:01 Temperature Pulse Rate 120 H 101 H 125 H Pulse Rate [ Anterior Bilateral Throughout] Respiratory 29 H 36 H 46 H Rate Respiratory Rate [Anterior Bilateral Throughout] Blood Pressure 160/85 116/50 178/89 O2 Sat by Pulse 98 96 97 Oximetry 11/24/20 11/24/20 11/24/20 08:00 08:01 08:30 Temperature 99.2 F Pulse Rate 127 H 127 H 120 H Pulse Rate [ Anterior Bilateral Throughout] Respiratory 45 H 23 Rate Respiratory Rate [Anterior Bilateral Throughout] Blood Pressure 184/103 184/103 184/103 O2 Sat by Pulse 98 98 Oximetry 11/24/20 11/24/20 11/24/20 09:00 09:59 10:00 Temperature Pulse Rate 109 H 111 H Pulse Rate [ 111 H Anterior Bilateral Throughout] Respiratory 46 H 47 H Rate Respiratory 44 H Rate [Anterior Bilateral Throughout] Blood Pressure 119/52 126/56 O2 Sat by Pulse 95 95 Oximetry 11/24/20 11/24/20 11/24/20 11:00 11:51 12:00 Temperature 99.4 F Pulse Rate 106 H 102 H 101 H Pulse Rate [ Anterior Bilateral Throughout] Respiratory 41 H 41 H 38 H Rate Respiratory Rate [Anterior Bilateral Throughout] Blood Pressure 134/57 134/57 121/58 O2 Sat by Pulse 94 98 99 Oximetry 11/24/20 11/24/20 11/24/20 13:00 14:01 14:53 Temperature Pulse Rate 91 H 110 H 90 Pulse Rate [ Anterior Bilateral Throughout] Respiratory 40 H 42 H 40 H Rate Respiratory Rate [Anterior Bilateral Throughout] Blood Pressure 114/57 183/85 183/85 O2 Sat by Pulse 98 100 Oximetry Constitutional: other (critically ill on BIPAP) Eyes: non-icteric ENT: other (orally intubated and sedated) Neck: supple, other (large in circumference) Effort: mildly labored Ascultation: Bilateral: wheezes Cardiovascular: other (tachy, no mrg) Gastrointestinal: normoactive bowel sounds, soft, non-tender, non-distended Extremities: no cyanosis, no edema, pink and warm Neurologic: non-focal exam Psychiatric: other (anxious appearing) CBC and BMP: 11/23/20 10:00 11/24/20 09:58 ABG, PT/INR, D-dimer: ABG ABG pH 7.281 (7.320-7.450) L 11/24/20 01:48 POC ABG pCO2 58.4 mmHg (32.0-48.0) H 11/24/20 01:48 POC ABG pO2 98.1 mmHg (83-108) 11/24/20 01:48 POC ABG HCO3 26.9 11/24/20 01:48 ABG O2 Saturation 96.9 (0-100) 11/24/20 01:48 PT/INR, D-dimer PT 13.5 Sec. (12.2-14.9) 11/21/20 20:50 INR 0.98 (0.87-1.13) 11/21/20 20:50 Abnormal lab findings: Abnormal Labs 11/21/20 11/21/20 11/22/20 20:50 20:50 00:11 WBC RBC 3.48 L Hgb 11.1 L Hct 34.3 L MCV 99 H Lymph % (Auto) 6.8 L [place] % (Auto) Lymph # (Auto) 0.6 L [place] # (Auto) Seg Neutrophils % 85.5 H Seg Neutrophils # ABG pH POC ABG pCO2 POC ABG pO2 ABG Hemoglobin ABG Sodium ABG Potassium ABG Glucose Carboxyhemoglobin Sodium 130 L Potassium 7.3 H* Chloride 91.1 L Carbon Dioxide BUN 40 H Creatinine 2.1 H Glucose 195 H POC Glucose Lactic Acid Calcium AST 91 H ALT 65 H CK-MB (CK-2) Rel Index 4.1 H Troponin T 0.045 H NT-Pro-B Natriuret Pep 6998 H Total Protein Albumin 3.7 L HDL Cholesterol 60 H Arterial Blood Glucose Arterial Blood Ionized Calcium Urine WBC (Auto) Urine Creatinine 158.2 H Hepatitis C Antibody 11/22/20 11/22/20 11/22/20 00:23 00:40 01:37 WBC 14.1 H RBC 3.53 L Hgb 11.0 L Hct 34.1 L MCV 97 H Lymph % (Auto) 12.3 L [place] % (Auto) 14.2 H Lymph # (Auto) [place] # (Auto) 2.0 H Seg Neutrophils % 72.3 H Seg Neutrophils # 10.2 H ABG pH POC ABG pCO2 POC ABG pO2 ABG Hemoglobin ABG Sodium ABG Potassium ABG Glucose Carboxyhemoglobin Sodium Potassium 5.1 H D Chloride Carbon Dioxide BUN Creatinine Glucose POC Glucose Lactic Acid 2.10 H* Calcium AST ALT CK-MB (CK-2) Rel Index Troponin T NT-Pro-B Natriuret Pep Total Protein Albumin HDL Cholesterol Arterial Blood Glucose Arterial Blood Ionized Calcium Urine WBC (Auto) Urine Creatinine Hepatitis C Antibody 11/22/20 11/22/20 11/22/20 01:37 03:20 05:00 WBC RBC Hgb Hct MCV Lymph % (Auto) [place] % (Auto) Lymph # (Auto) [place] # (Auto) Seg Neutrophils % Seg Neutrophils # ABG pH POC ABG pCO2 58.4 H POC ABG pO2 ABG Hemoglobin 11.1 L ABG Sodium 135.1 L ABG Potassium 5.0 H ABG Glucose Carboxyhemoglobin Sodium Potassium 5.1 H Chloride Carbon Dioxide 31 H BUN 40 H Creatinine 2.0 H Glucose 49 L POC Glucose Lactic Acid Calcium AST ALT CK-MB (CK-2) Rel Index Troponin T NT-Pro-B Natriuret Pep Total Protein Albumin HDL Cholesterol Arterial Blood Glucose Arterial Blood Ionized Calcium Urine WBC (Auto) 33.0 H Urine Creatinine Hepatitis C Antibody 11/22/20 11/22/20 11/22/20 05:00 05:00 05:00 WBC RBC Hgb Hct MCV Lymph % (Auto) [place] % (Auto) Lymph # (Auto) [place] # (Auto) Seg Neutrophils % Seg Neutrophils # ABG pH POC ABG pCO2 POC ABG pO2 ABG Hemoglobin ABG Sodium ABG Potassium ABG Glucose Carboxyhemoglobin Sodium 136 L Potassium Chloride 97.8 L Carbon Dioxide BUN 41 H Creatinine 1.8 H 1.8 H Glucose POC Glucose Lactic Acid Calcium 8.2 L AST ALT CK-MB (CK-2) Rel Index Troponin T 0.065 H D NT-Pro-B Natriuret Pep Total Protein Albumin HDL Cholesterol Arterial Blood Glucose Arterial Blood Ionized Calcium Urine WBC (Auto) Urine Creatinine Hepatitis C Antibody 11/22/20 11/22/20 11/22/20 10:20 10:20 15:00 WBC RBC 3.16 L Hgb 10.2 L Hct 29.9 L MCV 95 H Lymph % (Auto) [place] % (Auto) Lymph # (Auto) [place] # (Auto) Seg Neutrophils % Seg Neutrophils # ABG pH 7.501 H POC ABG pCO2 POC ABG pO2 ABG Hemoglobin 10.5 L ABG Sodium 134.9 L ABG Potassium ABG Glucose 115 H Carboxyhemoglobin 0.4 L Sodium Potassium Chloride Carbon Dioxide BUN Creatinine Glucose POC Glucose Lactic Acid Calcium AST ALT CK-MB (CK-2) Rel Index Troponin T 0.078 H NT-Pro-B Natriuret Pep Total Protein Albumin HDL Cholesterol Arterial Blood Glucose 115 H Arterial Blood Ionized Calcium 4.3 L Urine WBC (Auto) Urine Creatinine Hepatitis C Antibody 11/22/20 11/22/20 11/22/20 16:00 17:45 23:21 WBC RBC Hgb Hct MCV Lymph % (Auto) [place] % (Auto) Lymph # (Auto) [place] # (Auto) Seg Neutrophils % Seg Neutrophils # ABG pH POC ABG pCO2 POC ABG pO2 ABG Hemoglobin ABG Sodium ABG Potassium ABG Glucose Carboxyhemoglobin Sodium Potassium Chloride Carbon Dioxide BUN Creatinine Glucose POC Glucose 107 H 115 H Lactic Acid Calcium AST ALT CK-MB (CK-2) Rel Index Troponin T NT-Pro-B Natriuret Pep Total Protein Albumin HDL Cholesterol Arterial Blood Glucose Arterial Blood Ionized Calcium Urine WBC (Auto) Urine Creatinine Hepatitis C Antibody Reactive A 11/23/20 11/23/20 11/23/20 03:03 05:33 10:00 WBC RBC 3.33 L Hgb 10.6 L Hct 32.2 L MCV 97 H Lymph % (Auto) [place] % (Auto) 15.0 H Lymph # (Auto) [place] # (Auto) 1.5 H Seg Neutrophils % Seg Neutrophils # ABG pH POC ABG pCO2 POC ABG pO2 115.8 H ABG Hemoglobin 10.1 L ABG Sodium 135.8 L ABG Potassium ABG Glucose 98 H Carboxyhemoglobin 0.4 L Sodium Potassium Chloride Carbon Dioxide BUN Creatinine Glucose POC Glucose 106 H Lactic Acid Calcium AST ALT CK-MB (CK-2) Rel Index Troponin T NT-Pro-B Natriuret Pep Total Protein Albumin HDL Cholesterol Arterial Blood Glucose 98 H Arterial Blood Ionized Calcium 4.4 L Urine WBC (Auto) Urine Creatinine Hepatitis C Antibody 11/23/20 11/23/20 11/23/20 10:00 12:12 18:21 WBC RBC Hgb Hct MCV Lymph % (Auto) [place] % (Auto) Lymph # (Auto) [place] # (Auto) Seg Neutrophils % Seg Neutrophils # ABG pH POC ABG pCO2 POC ABG pO2 ABG Hemoglobin ABG Sodium ABG Potassium ABG Glucose Carboxyhemoglobin Sodium Potassium Chloride Carbon Dioxide BUN 22 H Creatinine Glucose 101 H POC Glucose 119 H 106 H Lactic Acid Calcium 7.9 L AST ALT CK-MB (CK-2) Rel Index Troponin T NT-Pro-B Natriuret Pep Total Protein 5.5 L Albumin 2.8 L HDL Cholesterol Arterial Blood Glucose Arterial Blood Ionized Calcium Urine WBC (Auto) Urine Creatinine Hepatitis C Antibody 11/23/20 11/24/20 11/24/20 23:28 01:48 09:58 WBC RBC Hgb Hct MCV Lymph % (Auto) [place] % (Auto) Lymph # (Auto) [place] # (Auto) Seg Neutrophils % Seg Neutrophils # ABG pH 7.281 L POC ABG pCO2 58.4 H POC ABG pO2 ABG Hemoglobin 11.8 L ABG Sodium ABG Potassium ABG Glucose 101 H Carboxyhemoglobin Sodium 148 H Potassium Chloride Carbon Dioxide 34 H D BUN Creatinine Glucose POC Glucose 108 H Lactic Acid Calcium AST ALT CK-MB (CK-2) Rel Index Troponin T NT-Pro-B Natriuret Pep Total Protein Albumin HDL Cholesterol Arterial Blood Glucose 101 H Arterial Blood Ionized Calcium Urine WBC (Auto) Urine Creatinine Hepatitis C Antibody 11/24/20 09:58 WBC RBC Hgb Hct MCV Lymph % (Auto) [place] % (Auto) Lymph # (Auto) [place] # (Auto) Seg Neutrophils % Seg Neutrophils # ABG pH POC ABG pCO2 POC ABG pO2 ABG Hemoglobin ABG Sodium ABG Potassium ABG Glucose Carboxyhemoglobin Sodium Potassium Chloride Carbon Dioxide BUN Creatinine Glucose POC Glucose Lactic Acid 0.60 L Calcium AST ALT CK-MB (CK-2) Rel Index Troponin T NT-Pro-B Natriuret Pep Total Protein Albumin HDL Cholesterol Arterial Blood Glucose Arterial Blood Ionized Calcium Urine WBC (Auto) Urine Creatinine Hepatitis C Antibody Chest x-ray: report reviewed, image reviewed
[2020-11-24] MEDS: BUDESONIDE 0.5 MG/2 ML NEBU IH SCH ×2 (15:01→20:33)
[2020-11-24] MEDS: DEXTROSE 5% IN WATER 1,000 ML IV SCH (15:11)
[2020-11-24] MEDS: LORazepam 2 MG/ML VIAL IV PRN ×2 (15:12→20:07)
[2020-11-24] MEDS ORDERED: MAGNESIUM SULFATE 1 GM in SODIUM CHLORIDE 0.9% 50 ML IV ONE (16:00)
--- NOTE | 2020-11-24 16:24 | Progress Note ---
Assessment and Plan Assessment and plan: This is an 85-year-old male with COPD on home oxygen, GERD, hypertension, asthma, hyperlipidemia, vasopressin, bladder cancer admitted for acute hypoxic respiratory failure, UTI, acute kidney injury and electrolyte imbalances Neuro: Metabolic encephalopathy -11/21 CT head shows no acute intracranial abnormality, sinus disease -Sedated with propofol and fentanyl as needed -Aspiration precautions -Avoid delirium Cardiovascular Hypertension -Cardiology following Severe pulmonary hypertension -Carvedilol, aspirin, statin -Blood pressure monitor per protocol -Hydralazine as needed Low-dose Lasix for pulmonary hypertension NSTEMI type II -Presented with CARRIE with elevated troponins -Per cardiology patient had a stress test in 2019 which showed no significant ischemia, normal LV function and echocardiogram which showed mild mitral stenosis -Repeat echocardiogram pending -As needed nitroglycerin Hyperlipidemia -Resume home statin therapy when appropriate Respiratory Acute hypoxic respiratory failure -Mechanical ventilation, wean as tolerated -VAP bundle -[facility] following COPD -Currently on mechanical ventilation, wean as tolerated -Pulmonary hygiene -Per family patient is on home oxygen of 2 to 3 L however son states that the patient patients himself on up to 8 L because " he does not know how it works" FEN/GI: Acute kidney injury -Presented with a BUN/creatinine of 40/2.1 -Nephrology consulted -Calculated FENa suggesting prerenal state -Renal ultrasound shows asymmetric renal size, no hydronephrosis, no acute findings -Strict intake and output -Renally dose medications -Avoid nephrotoxic medications -Daily weights Hyperkalemia (resolved) -Presented with a potassium of 7.3 -S/p potassium cocktail in the ED Hyponatremia (resolved) -Presented with a sodium of 130 which was corrected to a sodium of 140 within 5 hours -Trend BMP Hypochloremia -Presented with a chloride of 91.1 -Trend chloride Tube feeding -NG tube -Nutrition consulted -SSI : hx of bladder cancer -Galeano catheter in place -resume home flomax Right kidney only, left atrophic kidney ID: Urinary tract infection -11/22 UA shows trace leukocyte esterase -Urine culture pending -Blood culture pending -Antibiotic therapy Lactic acidosis, resolved -Continue fluids GI/DVT prophylaxis: Heparin subcu, H2 zoila, SCDs to BLE while in bed Dispo: ICU Lines: Femoral CVL (to be removed by RN), galeano The high probability of a clinically significant, sudden or life threatening deterioration of the [resp] system(s) required my full and direct attention, intervention and personal management. The aggregate critical care time was [40] minutes. This time is in addition to time spent performing reported procedures but includes the following: [x] Data Review and interpretation [x] Patient assessment and monitoring of vital signs [x] Documentation [x] Medication orders and management History Interval history: This is a 85-year-old male with COPD on home oxygen of 2 to 3 L, GERD, hypertension, asthma, hyperlipidemia, valve replacement, bilateral cataract surgery, bladder cancer, bilateral enterectomy 4 to 5 years ago who presented to the emergency department after being found unresponsive on 1800 via EMS. Upon EMS arrival patient was found lying in bed unresponsive and hypoxic with SPO2 into the 50s on room air and was bagged by EMS and transported to [facility]. Upon arrival to the emergency department patient was hypoxic and patient was intubated. Work-up in the emergency department revealed hyperkalemia, acute kidney injury, lactic acidosis, elevated troponin and elevated BNP. Patient had a CT head in the emergency department which revealed sinus disease and no other acute findings, renal ultrasound which showed asymmetric renal size without hydronephrosis, CXR which showed mild increased interstitial prominence without pneumothorax and cardiomegaly. Patient was admitted to the hospital service with consults to nephrology, cardiology and critical care. 11/22: Patient sedation was changed to propofol from Versed and fentanyl IV push o rdered by CCM, p.m. ABG is pending which may need to CPAP and extubation. Nephrology ordered a vasculitis work-up. Echocardiogram pending, patient's son relates that he received a COVID-19 vaccination x2 with 500px several months ago. I update his nephew and son at bedside. 11/23: Patient continues to be intubated, no overnight events. Continue sepsis work-up. 11/24: No overnight events. Patient continues to be intubated Hospitalist Physical - Physical exam Narrative exam: General appearance: no acute distress, well-nourished EENT: PERRL, EOM intact, hearing intact, clear oral mucosa Neck: Present: supple, normal ROM Respiratory: Intubated, rales heard bilaterally. Cardiovascular: Regular rate/rhythm, Normal S1 & S2. No gallop, rub Extremities: no ischemia, No edema, normal temperature, normal color, Full ROM Abdominal: soft, no tenderness, non-distended, normal bowel sounds Integumentary: Present: clear, warm, dry no wounds, no erythema noted Neurologic: Sedated - Constitutional Vitals: Temp Pulse Resp BP Pulse Ox 99.4 F 104 H 34 H 146/95 100 11/24/20 12:00 11/24/20 15:02 11/24/20 15:02 11/24/20 15:01 11/24/20 15:01 General appearance: Present: other HEART Score - HEART Score Troponin: Troponin T 0.078 ng/mL (0.00-0.029) H 11/22/20 10:20 Results - Labs CBC & Chem 7: 11/23/20 10:00 11/24/20 09:58 Labs: Laboratory Last Values WBC 9.8 K/mm3 (4.5-11.0) 11/23/20 10:00 RBC 3.33 M/mm3 (3.65-5.03) L 11/23/20 10:00 Hgb 10.6 gm/dl (11.8-15.2) L 11/23/20 10:00 Hct 32.2 % (35.5-45.6) L 11/23/20 10:00 MCV 97 fl (84-94) H 11/23/20 10:00 MCH 32 pg (28-32) 11/23/20 10:00 MCHC 33 % (32-34) 11/23/20 10:00 RDW 14.8 % (13.2-15.2) 11/23/20 10:00 Plt Count 229 K/mm3 (140-440) 11/23/20 10:00 Lymph % (Auto) 16.1 % (13.4-35.0) 11/23/20 10:00 [place] % (Auto) 15.0 % (0.0-7.3) H 11/23/20 10:00 Eos % (Auto) 1.0 % (0.0-4.3) 11/23/20 10:00 Baso % (Auto) 0.5 % (0.0-1.8) 11/23/20 10:00 Lymph # (Auto) 1.6 K/mm3 (1.2-5.4) 11/23/20 10:00 [place] # (Auto) 1.5 K/mm3 (0.0-0.8) H 11/23/20 10:00 Eos # (Auto) 0.1 K/mm3 (0.0-0.4) 11/23/20 10:00 Baso # (Auto) 0.1 K/mm3 (0.0-0.1) 11/23/20 10:00 Seg Neutrophils % 67.4 % (40.0-70.0) 11/23/20 10:00 Seg Neutrophils # 6.6 K/mm3 (1.8-7.7) 11/23/20 10:00 PT 13.5 Sec. (12.2-14.9) 11/21/20 20:50 INR 0.98 (0.87-1.13) 11/21/20 20:50 APTT 32.1 Sec. (24.2-36.6) 11/21/20 20:50 ABG pH 7.281 (7.320-7.450) L 11/24/20 01:48 POC ABG pCO2 58.4 mmHg (32.0-48.0) H 11/24/20 01:48 POC ABG pO2 98.1 mmHg (83-108) 11/24/20 01:48 POC ABG HCO3 26.9 11/24/20 01:48 ABG O2 Saturation 96.9 (0-100) 11/24/20 01:48 POC ABG Base Excess -0.7 11/24/20 01:48 ABG Hemoglobin 11.8 (12.0-17.5) L 11/24/20 01:48 ABG Oxyhemoglobin 95.9 (94-98) 11/24/20 01:48 ABG Methemoglobin 0.3 (0.0-1.5) 11/24/20 01:48 ABG Sodium 140.6 mmol/L (136.0-145.0) 11/24/20 01:48 ABG Potassium 3.9 mmol/L (3.40-4.50) 11/24/20 01:48 ABG Chloride 104.0 mmol/L (98-107) 11/24/20 01:48 ABG Glucose 101 mg/dL (65-95) H 11/24/20 01:48 Carboxyhemoglobin 0.7 (0.5-1.5) 11/24/20 01:48 FiO2 % 50.0 11/24/20 01:48 Sodium 148 mmol/L (137-145) H 11/24/20 09:58 Potassium 3.9 mmol/L (3.6-5.0) 11/24/20 09:58 Chloride 107.0 mmol/L (98-107) 11/24/20 09:58 Carbon Dioxide 34 mmol/L (22-30) H D 11/24/20 09:58 Anion Gap 11 mmol/L 11/24/20 09:58 BUN 19 mg/dL (9-20) 11/24/20 09:58 Creatinine 1.1 mg/dL (0.8-1.3) 11/24/20 09:58 Estimated GFR > 60 ml/min 11/24/20 09:58 BUN/Creatinine Ratio 17 % 11/24/20 09:58 Glucose 96 mg/dL (75-100) 11/24/20 09:58 POC Glucose 99 mg/dL (70-105) 11/24/20 12:09 Lactic Acid 0.60 mmol/L (0.7-2.0) L 11/24/20 09:58 Calcium 8.5 mg/dL (8.4-10.2) 11/24/20 09:58 Total Bilirubin 0.20 mg/dL (0.1-1.2) 11/23/20 10:00 AST 34 units/L (5-40) 11/23/20 10:00 ALT 41 units/L (7-56) 11/23/20 10:00 Alkaline Phosphatase 59 units/L (35-129) 11/23/20 10:00 Total Creatine Kinase 132 units/L (55-170) 11/22/20 10:20 CK-MB (CK-2) 3.3 ng/mL (0.0-4.0) 11/22/20 10:20 CK-MB (CK-2) Rel Index 2.5 (0-4) 11/22/20 10:20 Troponin T 0.078 ng/mL (0.00-0.029) H 11/22/20 10:20 NT-Pro-B Natriuret Pep 6998 pg/mL (0-900) H 11/21/20 20:50 Total Protein 5.5 g/dL (6.3-8.2) L 11/23/20 10:00 Albumin 2.8 g/dL (3.9-5) L 11/23/20 10:00 Albumin/Globulin Ratio 1.0 % 11/23/20 10:00 Triglycerides 84 mg/dL (2-149) 11/21/20 20:50 Cholesterol 125 mg/dL (50-199) 11/21/20 20:50 LDL Cholesterol Direct 57 mg/dL (50-130) 11/21/20 20:50 HDL Cholesterol 60 mg/dL (40-59) H 11/21/20 20:50 Cholesterol/HDL Ratio 2.08 % 11/21/20 20:50 TSH 1.290 mlU/mL (0.270-4.200) 11/21/20 20:50 Free T4 1.18 ng/dL (0.76-1.46) 11/21/20 20:50 Arterial Blood Glucose 101 mg/dL (65-95) H 11/24/20 01:48 Arterial Blood Ionized Calcium 4.7 mg/dL (4.6-5.3) 11/24/20 01:48 Urine Color Yellow (Yellow) 11/22/20 05:00 Urine Turbidity Slightly-cloudy (Clear) 11/22/20 05:00 Urine pH 5.0 (5.0-7.0) 11/22/20 05:00 Ur Specific [place] 1.016 (1.003-1.030) 11/22/20 05:00 Urine Protein 30 mg/dl mg/dL (Negative) 11/22/20 05:00 Urine Glucose (UA) Neg mg/dL (Negative) 11/22/20 05:00 Urine Ketones Neg mg/dL (Negative) 11/22/20 05:00 Urine Blood Lg (Negative) 11/22/20 05:00 Urine Nitrite Neg (Negative) 11/22/20 05:00 Urine Bilirubin Neg (Negative) 11/22/20 05:00 Urine Urobilinogen < 2.0 mg/dL (<2.0) 11/22/20 05:00 Ur Leukocyte Esterase Tr (Negative) 11/22/20 05:00 Urine WBC (Auto) 33.0 /HPF (0.0-6.0) H 11/22/20 05:00 Urine RBC (Auto) 49.0 /HPF (0.0-6.0) 11/22/20 05:00 U Epithel Cells (Auto) 1.0 /HPF (0-13.0) 11/22/20 05:00 Hyaline Casts 4 /LPF 11/22/20 05:00 Urine Mucus 1+ /HPF 11/22/20 05:00 Urine Creatinine 158.2 mg/dL (0.1-20.0) H 11/22/20 00:11 Urine Sodium 39 mmol/L 11/22/20 00:11 Fraction Sodium Excret 0.3 11/22/20 00:11 Urine Opiates Screen Presumptive negative 11/22/20 00:11 Urine Methadone Screen Presumptive negative 11/22/20 00:11 Ur Barbiturates Screen Presumptive negative 11/22/20 00:11 Ur Phencyclidine Scrn Presumptive negative 11/22/20 00:11 Ur Amphetamines Screen Presumptive negative 11/22/20 00:11 U Benzodiazepines Scrn Presumptive negative 11/22/20 00:11 Urine Cocaine Screen Presumptive negative 11/22/20 00:11 U Marijuana (THC) Screen Presumptive negative 11/22/20 00:11 Drugs of Abuse Note Disclamer 11/22/20 00:11 Plasma/Serum Alcohol < 0.01 % (0-0.07) 11/21/20 20:50 Coronavirus (PCR) Negative (Negative) 11/23/20 09:30 Hepatitis A IgM Ab Non-reactive (NonReactive) 11/22/20 16:00 Hep Bs Antigen Non-reactive (Negative) 11/22/20 16:00 Hep B Core IgM Ab Non-reactive (NonReactive) 11/22/20 16:00 Hepatitis C Antibody Reactive (NonReactive) A 11/22/20 16:00 Microbiology: Microbiology 11/22/20 00:40 Peripheral/Venous Blood Culture - Preliminary NO GROWTH AFTER 48 HOURS 11/22/20 00:40 Peripheral/Venous Blood Culture - Preliminary NO GROWTH AFTER 48 HOURS Galeano/IV: Voiding Method Indwelling Catheter Active Medications - Current Medications Current Medications: Generic Name Dose Route Start Last Admin Trade Name Freq PRN Reason Stop Dose Admin Acetaminophen 650 mg 11/23/20 15:29 Acetaminophen 325 Mg Tab PO Q4H PRN Pain, Mild (1-3) Albuterol 2.5 mg 11/22/20 01:19 Albuterol 2.5 Mg/3 Ml Nebu IH Q4HRT PRN Shortness Of Breath Albuterol/Ipratropium 1 ampul 11/22/20 02:00 11/24/20 15:02 Ipratropium/Albuterol Sulfate 3 Ml Ampul.Neb IH 1 ampul Q6HRT TERESA Administration Lipase/Protease/Amylase 1 each 11/22/20 09:07 Lipase 10,500/Protease 25,000/Amylase 43,750 (Units) Dr Cyr FEEDTUBE PRN PRN For Clogged Feeding Tube Aspirin 81 mg 11/23/20 10:00 11/24/20 12:32 Aspirin 81 Mg Tab Chew PO Not Given QDAY TERESA Atorvastatin Calcium 40 mg 11/22/20 22:00 11/23/20 21:58 Atorvastatin 40 Mg Tab PO 40 mg QHS TERESA Administration Budesonide 0.5 mg 11/24/20 14:55 11/24/20 15:01 Budesonide 0.5 Mg/2 Ml Nebu IH 0.5 mg Q12HRT TERESA Administration Carvedilol 3.125 mg 11/22/20 10:00 11/24/20 12:32 Carvedilol 3.125 Mg Tab PO Not Given BID TERESA Furosemide 20 mg 11/24/20 11:00 11/24/20 11:21 Furosemide 20 Mg/2 Ml Inj IV 20 mg QDAY TERESA Administration Furosemide 40 mg 11/24/20 14:51 11/24/20 15:12 Furosemide 40 Mg/4 Ml Inj IV 11/24/20 18:00 40 mg ONCE NR Administration Haloperidol Lactate 5 mg 11/24/20 08:15 11/24/20 15:13 Haloperidol Lactate 5 Mg/1 Ml Inj IM 5 mg Q6H PRN Administration Agitation Heparin Sodium (Porcine) 5,000 unit 11/22/20 06:00 11/24/20 15:07 Heparin 5,000 Unit/1 Ml Vial SUB-Q 5,000 unit Q8HR TERESA Administration Hydralazine HCl 10 mg 11/22/20 01:24 11/24/20 08:30 Hydralazine 20 Mg/1 Ml Inj IV 10 mg Q6H PRN Administration Blood Pressure Hydrophilic Ointment 1 applic 11/22/20 00:38 Lip Therapy Vaseline TP Q2HR PRN Dry Lips Ceftriaxone Sodium 2 gm in 100 mls @ 200 mls/hr 11/22/20 02:00 07/05/21 06:21 Rocephin/Ns 2 Gm/100 Ml IV 200 mls/hr Q24H TERESA Administration Protocol Dextrose 1,000 mls @ 42 mls/hr 11/24/20 15:00 11/24/20 15:11 D5w IV 42 mls/hr DIRECT TERESA Administration Magnesium Sulfate 1 gm/ Sodium 52 mls @ 52 mls/hr 11/24/20 16:00 Chloride IV 11/24/20 16:59 ONCE ONE Lansoprazole 30 mg 11/23/20 10:00 11/24/20 12:32 Lansoprazole 30 Mg Solutab FEEDTUBE Not Given QDAY TERESA Lorazepam 1 mg 11/24/20 14:53 11/24/20 15:12 Lorazepam 2 Mg/Ml Vial IV 1 mg Q4H PRN Administration Agitation Methylprednisolone Sodium Succinate 80 mg 11/24/20 22:00 Methylprednisolone Sod Succinate 125 Mg/2 Ml Inj IV Q8HR TERESA Multi-Ingred Cream/Lotion/Oil/Oint 1 applic 11/22/20 00:38 Mineral Oil/Petrolatum, White Ophth Oint 3.5 Gm OU Q4HR PRN Dry Eye(s) Nitroglycerin 0.4 mg 11/22/20 01:25 Nitroglycerin 0.4 Mg Tab Subl SL Q5M PRN Chest Pain Ondansetron HCl 4 mg 11/22/20 01:19 Ondansetron 4 Mg/2 Ml Inj IV Q8H PRN Nausea And Vomiting Senna/Docusate Sodium 1 tab 11/22/20 10:00 11/24/20 12:33 Sennosides/Docusate Sodium 8.6/50 Mg Tab FEEDTUBE Not Given BID TERESA Simple Syrup 15 ml 11/22/20 09:07 Simple Syrup 15 Ml FEEDTUBE PRN PRN Hypoglycemia Simple Syrup 30 ml 11/22/20 09:07 Simple Syrup 15 Ml FEEDTUBE PRN PRN Hypoglycemia Sodium Bicarbonate 325 mg 11/22/20 09:07 Sodium Bicarbonate 325 Mg Tab FEEDTUBE PRN PRN For Clogged Feeding Tube Sodium Chloride 10 ml 11/22/20 10:00 11/24/20 09:05 Sodium Chloride 0.9% 10 Ml Flush Syringe IV 10 ml BID TERESA Administration Sodium Chloride 10 ml 11/22/20 01:19 Sodium Chloride 0.9% 10 Ml Flush Syringe IV PRN PRN LINE FLUSH Tamsulosin HCl 0.4 mg 11/22/20 10:00 11/24/20 12:32 Tamsulosin 0.4 Mg Cap PO Not Given DAILY TERESA Nutrition/Malnutrition Assess - Dietary Evaluation Nutrition/Malnutrition Findings: Nutrition Notes Start: 11/22/20 08:53 Freq: Status: Active Protocol: Document 11/24/20 11:36 (Rec: 11/24/20 11:41 [email or web address]) Nutrition Notes Initial or Follow up Reassessment Current Diagnosis Acute Kidney Injury,COPD, Coronary Artery Disease, Diabetes,Hypertension,Heart Failure,Respiratory Failure, Hyperlipidemia Other Pertinent Diagnosis AMS Current Diet NPO Labs/Tests Na 148 Pertinent Medications D5NS at 125 ml/hr Height 5 ft 3 in Weight 81.3 kg [place] Body Weight (kg) 56.36 BMI 31.7 Weight Status Obese Subjective/Other Information Pt was extubated yesterday and is now on bipap. Pt was tolerating TF at 25 ml/hr. Burn Absent Trauma Absent Current % PO Negligible Minimum of two criteria No physical signs of malnutrition #1 Nutrition Diagnosis Inadequate oral intake As Evidenced by Signs and Symptoms pt on bipap and unable to consume PO Diagnosis Progress(for reassessment Continues documentation) Is patient on ventilator? No Is Patient Ambulatory and/or Out of Bed No REE-([facility]-confined to bed) 1673.028 Kcal/Kg value to use for calculation 17 Approximate Energy Requirements Using 1382 kcal/Kg Calculation Used for Recommendations Kcal/kg Additional Notes protein needs: 69-82g (1-1.2g/ kg AdjBW: 69kg) fluid needs: 1 ml/kcal or per MD order Nutrition Intervention Change Diet Order: Diet advancement when able Goal #1 Diet advancement Anticipated Discharge Needs: unable to determine at this time Follow-Up By: 11/26/20 Additional Comments FU for plan of care
[2020-11-24] MEDS ORDERED: ROCURONIUM 50 MG/5 ML INJ IV ONE (19:49)
[2020-11-24] MEDS ORDERED: ETOMIDATE 20 MG/10 ML INJ IV ONE (19:49)
[2020-11-24] MEDS ORDERED: MIDAZOLAM 5 MG/5 ML INJ MDV IV ONE (19:49)
[2020-11-24] MEDS ORDERED: SUCCINYLCHOLINE CHLORIDE 200 MG/10 ML INJ MDV ONE (19:49)
[2020-11-24] MEDS ORDERED: KETAMINE 500 MG/5 ML VIAL MDV ONE (19:49)
[2020-11-24] MEDS: methylPREDNISolone Sod Succinate 125 MG/2 ML INJ IV SCH (21:17)
[2020-11-25] MEDS: hydrALAZINE 20 MG/1 ML INJ IV PRN ×2 (02:32→09:22)
[2020-11-25] MEDS: IPRATROPIUM/ALBUTEROL SULFATE 3 ML AMPUL.NEB IH SCH ×4 (02:41→19:56)
[2020-11-25] MEDS: HALOPERIDOL LACTATE 5 MG/1 ML INJ IM PRN (03:13)
[2020-11-25] MEDS: LORazepam 2 MG/ML VIAL IV PRN ×2 (03:13→09:23)
[2020-11-25] MEDS: HEPARIN 5,000 UNIT/1 ML VIAL SUB-Q SCH ×3 (05:42→22:40)
[2020-11-25] MEDS: methylPREDNISolone Sod Succinate 125 MG/2 ML INJ IV SCH ×3 (05:42→22:41)
[2020-11-25] MEDS: cefTRIAXone/NS 2 GM/100 ML 2 GM/100 ML BAG IV SCH (08:03)
[2020-11-25] MEDS: HALOPERIDOL LACTATE 5 MG/1 ML INJ IV PRN (08:10)
--- NOTE | 2020-11-25 08:28 | Progress Note ---
Assessment and Plan Assessment and plan: This is an 85-year-old male with COPD on home oxygen, GERD, hypertension, asthma, hyperlipidemia, vasopressin, bladder cancer admitted for acute hypoxic respiratory failure, UTI, acute kidney injury and electrolyte imbalances --Acute hypoxic respiratory failure/Requiring intubation 11/21/2020 s/p extubation 11/23/2020, patient is on noninvasive ventilation Wean as tolerated, home O2 evaluation at discharge Continue supportive care --Acute exacerbation of COPD; Home oxygen dependent BiPAP as needed, wean as tolerated Pulmonary hygiene, pulmonary critical care following --Severe pulmonary hypertension; Management per pulmonary, continue supportive care --Acute metabolic encephalopathy -11/21 CT head shows no acute intracranial abnormality, sinus disease Continue supportive care --NSTEMI type II Presented with CARRIE with elevated troponins cardiology patient had a stress test in 2019 which showed no significant ischemia, Echo; EF 50 to 55% severe pulmonary hypertension moderate mitral stenosis may benefit from HECTOR for evaluation of mitral valve when patient is stable and extubated --Acute kidney injury; present on admission Vasomotor nephropathy Now resolved, normal renal function Avoid nephrotoxins, nephrology following --History of bladder cancer; Indwelling Paulson in place, supportive care Continue Flomax --Urinary tract infection; Continue empiric antibiotics total 5 days Supportive care --Dyslipidemia; Continue statin and low-cholesterol diet --Hypertension; moderate control We will continue current antihypertensives And as needed hydralazine --Hypernatremia ; Patient was hyponatremia on admission ,probably overcorrection Free water via [place], nephrology following Monitor electrolytes --Severe protein calorie malnutrition ; Hypoalbuminemia ,nutrition supplements Nutrition consult and supportive care --DVT prophylaxis; Subcu heparin, SCDs --GI prophylaxis; Continue Prevacid --Full CODE STATUS; We will closely monitor the patient and adjust the management as needed Consults and recommendations noted and appreciated Plan of care reviewed with the patient's nurse The high probability of a clinically significant, sudden or life threatening deterioration of the [resp, cardiac, nephrology, metabolic] system(s) required my full and direct attention, intervention and personal management. The aggregate critical care time was [35] minutes. This time is in addition to time spent performing reported procedures but includes the following: [x] Data Review and interpretation [x] Patient assessment and monitoring of vital signs [x] Documentation [x] Medication orders and management History Interval history: I have seen and examined the patient at the bedside in ICU this morning Patient's chart and medications reviewed Patient is slightly agitated on BiPAP in mild distress No new overnight events reported by the nursing staff Vital signs noted Hospitalist Physical - Constitutional Vitals: Temp Pulse Resp BP Pulse Ox 98.9 F 108 H 27 H 184/92 96 11/25/20 08:00 11/25/20 05:00 11/25/20 05:00 11/25/20 05:00 11/25/20 05:00 General appearance: Present: mild distress, other (On BiPAP, slightly agitated) - EENT Eyes: Present: PERRL, EOM intact - Neck Neck: Present: supple, normal ROM - Respiratory Respiratory effort: normal Respiratory: bilateral: diminished, rhonchi, negative: rales, wheezing - Extremities Extremities: no ischemia, pulses intact - Abdominal General gastrointestinal: soft, non-tender, non-distended, normal bowel sounds - Integumentary Integumentary: Present: clear, warm - Psychiatric Psychiatric: appropriate mood/affect, cooperative - Neurologic Neurologic: moves all extremities HEART Score - HEART Score Troponin: Troponin T 0.078 ng/mL (0.00-0.029) H 11/22/20 10:20 Results - Labs CBC & Chem 7: 11/25/20 08:18 11/25/20 08:18 Labs: Laboratory Last Values WBC 9.8 K/mm3 (4.5-11.0) 11/23/20 10:00 RBC 3.33 M/mm3 (3.65-5.03) L 11/23/20 10:00 Hgb 10.6 gm/dl (11.8-15.2) L 11/23/20 10:00 Hct 32.2 % (35.5-45.6) L 11/23/20 10:00 MCV 97 fl (84-94) H 11/23/20 10:00 MCH 32 pg (28-32) 11/23/20 10:00 MCHC 33 % (32-34) 11/23/20 10:00 RDW 14.8 % (13.2-15.2) 11/23/20 10:00 Plt Count 229 K/mm3 (140-440) 11/23/20 10:00 Lymph % (Auto) 16.1 % (13.4-35.0) 11/23/20 10:00 Boyle % (Auto) 15.0 % (0.0-7.3) H 11/23/20 10:00 Eos % (Auto) 1.0 % (0.0-4.3) 11/23/20 10:00 Baso % (Auto) 0.5 % (0.0-1.8) 11/23/20 10:00 Lymph # (Auto) 1.6 K/mm3 (1.2-5.4) 11/23/20 10:00 Boyle # (Auto) 1.5 K/mm3 (0.0-0.8) H 11/23/20 10:00 Eos # (Auto) 0.1 K/mm3 (0.0-0.4) 11/23/20 10:00 Baso # (Auto) 0.1 K/mm3 (0.0-0.1) 11/23/20 10:00 Seg Neutrophils % 67.4 % (40.0-70.0) 11/23/20 10:00 Seg Neutrophils # 6.6 K/mm3 (1.8-7.7) 11/23/20 10:00 PT 13.5 Sec. (12.2-14.9) 11/21/20 20:50 INR 0.98 (0.87-1.13) 11/21/20 20:50 APTT 32.1 Sec. (24.2-36.6) 11/21/20 20:50 ABG pH 7.281 (7.320-7.450) L 11/24/20 01:48 POC ABG pCO2 58.4 mmHg (32.0-48.0) H 11/24/20 01:48 POC ABG pO2 98.1 mmHg (83-108) 11/24/20 01:48 POC ABG HCO3 26.9 11/24/20 01:48 ABG O2 Saturation 96.9 (0-100) 11/24/20 01:48 POC ABG Base Excess -0.7 11/24/20 01:48 ABG Hemoglobin 11.8 (12.0-17.5) L 11/24/20 01:48 ABG Oxyhemoglobin 95.9 (94-98) 11/24/20 01:48 ABG Methemoglobin 0.3 (0.0-1.5) 11/24/20 01:48 ABG Sodium 140.6 mmol/L (136.0-145.0) 11/24/20 01:48 ABG Potassium 3.9 mmol/L (3.40-4.50) 11/24/20 01:48 ABG Chloride 104.0 mmol/L (98-107) 11/24/20 01:48 ABG Glucose 101 mg/dL (65-95) H 11/24/20 01:48 Carboxyhemoglobin 0.7 (0.5-1.5) 11/24/20 01:48 FiO2 % 50.0 11/24/20 01:48 Sodium 148 mmol/L (137-145) H 11/24/20 09:58 Potassium 3.9 mmol/L (3.6-5.0) 11/24/20 09:58 Chloride 107.0 mmol/L (98-107) 11/24/20 09:58 Carbon Dioxide 34 mmol/L (22-30) H D 11/24/20 09:58 Anion Gap 11 mmol/L 11/24/20 09:58 BUN 19 mg/dL (9-20) 11/24/20 09:58 Creatinine 1.1 mg/dL (0.8-1.3) 11/24/20 09:58 Estimated GFR > 60 ml/min 11/24/20 09:58 BUN/Creatinine Ratio 17 % 11/24/20 09:58 Glucose 96 mg/dL (75-100) 11/24/20 09:58 POC Glucose 148 mg/dL (70-105) H 11/25/20 05:48 Lactic Acid 0.60 mmol/L (0.7-2.0) L 11/24/20 09:58 Calcium 8.5 mg/dL (8.4-10.2) 11/24/20 09:58 Total Bilirubin 0.20 mg/dL (0.1-1.2) 11/23/20 10:00 AST 34 units/L (5-40) 11/23/20 10:00 ALT 41 units/L (7-56) 11/23/20 10:00 Alkaline Phosphatase 59 units/L (35-129) 11/23/20 10:00 Total Creatine Kinase 132 units/L (55-170) 11/22/20 10:20 CK-MB (CK-2) 3.3 ng/mL (0.0-4.0) 11/22/20 10:20 CK-MB (CK-2) Rel Index 2.5 (0-4) 11/22/20 10:20 Troponin T 0.078 ng/mL (0.00-0.029) H 11/22/20 10:20 NT-Pro-B Natriuret Pep 6998 pg/mL (0-900) H 11/21/20 20:50 Total Protein 5.5 g/dL (6.3-8.2) L 11/23/20 10:00 Albumin 2.8 g/dL (3.9-5) L 11/23/20 10:00 Albumin/Globulin Ratio 1.0 % 11/23/20 10:00 Triglycerides 84 mg/dL (2-149) 11/21/20 20:50 Cholesterol 125 mg/dL (50-199) 11/21/20 20:50 LDL Cholesterol Direct 57 mg/dL (50-130) 11/21/20 20:50 HDL Cholesterol 60 mg/dL (40-59) H 11/21/20 20:50 Cholesterol/HDL Ratio 2.08 % 11/21/20 20:50 TSH 1.290 mlU/mL (0.270-4.200) 11/21/20 20:50 Free T4 1.18 ng/dL (0.76-1.46) 11/21/20 20:50 Arterial Blood Glucose 101 mg/dL (65-95) H 11/24/20 01:48 Arterial Blood Ionized Calcium 4.7 mg/dL (4.6-5.3) 11/24/20 01:48 Urine Color Yellow (Yellow) 11/22/20 05:00 Urine Turbidity Slightly-cloudy (Clear) 11/22/20 05:00 Urine pH 5.0 (5.0-7.0) 11/22/20 05:00 Ur Specific [place] 1.016 (1.003-1.030) 11/22/20 05:00 Urine Protein 30 mg/dl mg/dL (Negative) 11/22/20 05:00 Urine Glucose (UA) Neg mg/dL (Negative) 11/22/20 05:00 Urine Ketones Neg mg/dL (Negative) 11/22/20 05:00 Urine Blood Lg (Negative) 11/22/20 05:00 Urine Nitrite Neg (Negative) 11/22/20 05:00 Urine Bilirubin Neg (Negative) 11/22/20 05:00 Urine Urobilinogen < 2.0 mg/dL (<2.0) 11/22/20 05:00 Ur Leukocyte Esterase Tr (Negative) 11/22/20 05:00 Urine WBC (Auto) 33.0 /HPF (0.0-6.0) H 11/22/20 05:00 Urine RBC (Auto) 49.0 /HPF (0.0-6.0) 11/22/20 05:00 U Epithel Cells (Auto) 1.0 /HPF (0-13.0) 11/22/20 05:00 Hyaline Casts 4 /LPF 11/22/20 05:00 Urine Mucus 1+ /HPF 11/22/20 05:00 Urine Eosinophils None seen (None Seen) 11/24/20 17:55 Urine Creatinine 158.2 mg/dL (0.1-20.0) H 11/22/20 00:11 Urine Sodium 39 mmol/L 11/22/20 00:11 Fraction Sodium Excret 0.3 11/22/20 00:11 Urine Opiates Screen Presumptive negative 11/22/20 00:11 Urine Methadone Screen Presumptive negative 11/22/20 00:11 Ur Barbiturates Screen Presumptive negative 11/22/20 00:11 Ur Phencyclidine Scrn Presumptive negative 11/22/20 00:11 Ur Amphetamines Screen Presumptive negative 11/22/20 00:11 U Benzodiazepines Scrn Presumptive negative 11/22/20 00:11 Urine Cocaine Screen Presumptive negative 11/22/20 00:11 U Marijuana (THC) Screen Presumptive negative 11/22/20 00:11 Drugs of Abuse Note Disclamer 11/22/20 00:11 Plasma/Serum Alcohol < 0.01 % (0-0.07) 11/21/20 20:50 Coronavirus (PCR) Negative (Negative) 11/23/20 09:30 Hepatitis A IgM Ab Non-reactive (NonReactive) 11/22/20 16:00 Hep Bs Antigen Non-reactive (Negative) 11/22/20 16:00 Hep B Core IgM Ab Non-reactive (NonReactive) 11/22/20 16:00 Hepatitis C Antibody Reactive (NonReactive) A 11/22/20 16:00 Microbiology: Microbiology 11/22/20 00:40 Peripheral/Venous Blood Culture - Preliminary NO GROWTH AFTER 72 HOURS 11/22/20 00:40 Peripheral/Venous Blood Culture - Preliminary NO GROWTH AFTER 72 HOURS Paulson/IV: Voiding Method Indwelling Catheter Active Medications - Current Medications Current Medications: Generic Name Dose Route Start Last Admin Trade Name Freq PRN Reason Stop Dose Admin Acetaminophen 650 mg 11/23/20 15:29 Acetaminophen 325 Mg Tab PO Q4H PRN Pain, Mild (1-3) Albuterol 2.5 mg 11/22/20 01:19 Albuterol 2.5 Mg/3 Ml Nebu IH Q4HRT PRN Shortness Of Breath Albuterol/Ipratropium 1 ampul 11/22/20 02:00 11/25/20 02:41 Ipratropium/Albuterol Sulfate 3 Ml Ampul.Neb IH 1 ampul Q6HRT TERESA Administration Lipase/Protease/Amylase 1 each 11/22/20 09:07 Lipase 10,500/Protease 25,000/Amylase 43,750 (Units) Dr Cyr FEEDTUBE PRN PRN For Clogged Feeding Tube Aspirin 81 mg 11/23/20 10:00 11/24/20 12:32 Aspirin 81 Mg Tab Chew PO Not Given QDAY TERESA Atorvastatin Calcium 40 mg 11/22/20 22:00 11/24/20 21:17 Atorvastatin 40 Mg Tab PO Not Given QHS TERESA Budesonide 0.5 mg 11/24/20 14:55 11/24/20 20:33 Budesonide 0.5 Mg/2 Ml Nebu IH Not Given Q12HRT TERESA Carvedilol 3.125 mg 11/22/20 10:00 11/24/20 21:17 Carvedilol 3.125 Mg Tab PO Not Given BID TERESA Furosemide 20 mg 11/24/20 11:00 11/24/20 11:21 Furosemide 20 Mg/2 Ml Inj IV 20 mg QDAY TERESA Administration Haloperidol Lactate 5 mg 11/25/20 09:00 11/25/20 08:10 Haloperidol Lactate 5 Mg/1 Ml Inj IV 5 mg Q6H PRN Administration Agitation Heparin Sodium (Porcine) 5,000 unit 11/22/20 06:00 11/25/20 05:42 Heparin 5,000 Unit/1 Ml Vial SUB-Q 5,000 unit Q8HR TERESA Administration Hydralazine HCl 10 mg 11/22/20 01:24 11/25/20 02:32 Hydralazine 20 Mg/1 Ml Inj IV 10 mg Q6H PRN Administration Blood Pressure Hydrophilic Ointment 1 applic 11/22/20 00:38 Lip Therapy Vaseline TP Q2HR PRN Dry Lips Ceftriaxone Sodium 2 gm in 100 mls @ 200 mls/hr 11/22/20 02:00 11/25/20 08:03 Rocephin/Ns 2 Gm/100 Ml IV 11/26/20 02:29 200 mls/hr Q24H TERESA Administration Protocol Dextrose 1,000 mls @ 42 mls/hr 11/24/20 15:00 11/24/20 15:11 D5w IV 42 mls/hr DIRECT TERESA Administration Lansoprazole 30 mg 11/23/20 10:00 11/24/20 12:32 Lansoprazole 30 Mg Solutab FEEDTUBE Not Given QDAY TERESA Lorazepam 1 mg 11/24/20 14:53 11/25/20 03:13 Lorazepam 2 Mg/Ml Vial IV 1 mg Q4H PRN Administration Agitation Methylprednisolone Sodium Succinate 80 mg 11/24/20 22:00 11/25/20 05:42 Methylprednisolone Sod Succinate 125 Mg/2 Ml Inj IV 80 mg Q8HR TERESA Administration Multi-Ingred Cream/Lotion/Oil/Oint 1 applic 11/22/20 00:38 Mineral Oil/Petrolatum, White Ophth Oint 3.5 Gm OU Q4HR PRN Dry Eye(s) Nitroglycerin 0.4 mg 11/22/20 01:25 Nitroglycerin 0.4 Mg Tab Subl SL Q5M PRN Chest Pain Ondansetron HCl 4 mg 11/22/20 01:19 Ondansetron 4 Mg/2 Ml Inj IV Q8H PRN Nausea And Vomiting Senna/Docusate Sodium 1 tab 11/22/20 10:00 11/24/20 21:18 Sennosides/Docusate Sodium 8.6/50 Mg Tab FEEDTUBE Not Given BID TERESA Simple Syrup 15 ml 11/22/20 09:07 Simple Syrup 15 Ml FEEDTUBE PRN PRN Hypoglycemia Simple Syrup 30 ml 11/22/20 09:07 Simple Syrup 15 Ml FEEDTUBE PRN PRN Hypoglycemia Sodium Bicarbonate 325 mg 11/22/20 09:07 Sodium Bicarbonate 325 Mg Tab FEEDTUBE PRN PRN For Clogged Feeding Tube Sodium Chloride 10 ml 11/22/20 10:00 11/24/20 21:18 Sodium Chloride 0.9% 10 Ml Flush Syringe IV 10 ml BID TERESA Administration Sodium Chloride 10 ml 11/22/20 01:19 Sodium Chloride 0.9% 10 Ml Flush Syringe IV PRN PRN LINE FLUSH Tamsulosin HCl 0.4 mg 11/22/20 10:00 11/24/20 12:32 Tamsulosin 0.4 Mg Cap PO Not Given DAILY TERESA Nutrition/Malnutrition Assess - Dietary Evaluation Nutrition/Malnutrition Findings: Nutrition Notes Start: 11/22/20 08:53 Freq: Status: Active Protocol: Document 11/24/20 11:36 (Rec: 11/24/20 11:41 [id number]) Nutrition Notes Initial or Follow up Reassessment Current Diagnosis Acute Kidney Injury,COPD, Coronary Artery Disease, Diabetes,Hypertension,Heart Failure,Respiratory Failure, Hyperlipidemia Other Pertinent Diagnosis AMS Current Diet NPO Labs/Tests Na 148 Pertinent Medications D5NS at 125 ml/hr Height 5 ft 3 in Weight 81.3 kg Dinosaur Body Weight (kg) 56.36 BMI 31.7 Weight Status Obese Subjective/Other Information Pt was extubated yesterday and is now on bipap. Pt was tolerating TF at 25 ml/hr. Burn Absent Trauma Absent Current % PO Negligible Minimum of two criteria No physical signs of malnutrition #1 Nutrition Diagnosis Inadequate oral intake As Evidenced by Signs and Symptoms pt on bipap and unable to consume PO Diagnosis Progress(for reassessment Continues documentation) Is patient on ventilator? No Is Patient Ambulatory and/or Out of Bed No REE-([place]-confined to bed) 1673.028 Kcal/Kg value to use for calculation 17 Approximate Energy Requirements Using 1382 kcal/Kg Calculation Used for Recommendations Kcal/kg Additional Notes protein needs: 69-82g (1-1.2g/ kg AdjBW: 69kg) fluid needs: 1 ml/kcal or per MD order Nutrition Intervention Change Diet Order: Diet advancement when able Goal #1 Diet advancement Anticipated Discharge Needs: unable to determine at this time Follow-Up By: 11/26/20 Additional Comments FU for plan of care
[2020-11-25] MEDS: BUDESONIDE 0.5 MG/2 ML NEBU IH SCH ×2 (09:01→19:56)
[2020-11-25] MEDS: FUROSEMIDE 20 MG/2 ML INJ IV SCH (09:23)
[2020-11-25 09:24] LABS: Hemoglobin 10.9 gm/dl (11.8-15.2); Mean Corpuscular HGB Conc 32 % (32-34); Mean Corpuscular Volume 96 fl (84-94); Platelet Count 280 K/mm3 (140-440); Red Blood Count 3.56 M/mm3 (3.65-5.03); Red Cell Distribution Width 15.1 % (13.2-15.2)
[2020-11-25 09:50] LABS: Albumin 3.7 g/dL (3.9-5)
--- NOTE | 2020-11-25 10:27 | Progress Note ---
Subjective Date of service: 11/25/20 Principal diagnosis: Acute respiratory failure Interval history: Impression * Acute kidney injury * Severe hyperkalemia * Respiratory failure * Coronary artery disease * Hypertension * COPD * Bladder cancer * Hepatitis C Recommendations * Hyperkalemia has been corrected with aggressive medical management. * Renal function is much improved . Patient is also currently nonoliguric * Na noted, increase D5w, hold lasix, give prn only * His urine shows 1+ dipstick protein and large blood. Fractional excretion of sodium is 0.4%. He most likely has a prerenal component. However given his microhematuria need to rule out vasculitis. Vasculitis work-up as ordered * Renal ultrasound shows atrophic left kidney. No obstruction. * Monitor fluid status and electrolytes closely * Avoid nephrotoxins * Shall follow patient peripherally Subjective Principal diagnosis: abnl trop Interval history: Patient has been extubated. Is currently on BiPAP with 40% FiO2. Oxygen saturation is 97%. IV fluid infusing. Objective - General Appearance General appearance: well-developed, well-nourished, appears stated age, other (Lethargic. Not answering questions or following commands) EENT: PERRL, mucous membranes moist Neck: no JVD, no thyromegaly Respiratory: Present: Ronchi (Few scattered rhonchi) Cardiology: regular, normal heart rate Gastrointestinal: normal, normoactive bowel sounds Integumentary: other (No edema) Objective - Vital Signs Vital signs: Vital Signs - 12hr 11/24/20 11/24/20 11/25/20 23:00 23:13 00:00 Temperature Pulse Rate 72 97 H 73 Pulse Rate [ Anterior Bilateral Throughout] Respiratory 37 H 30 H 37 H Rate Respiratory Rate [Anterior Bilateral Throughout] Blood Pressure 127/58 127/58 132/58 O2 Sat by Pulse 97 99 97 Oximetry 11/25/20 11/25/20 11/25/20 00:15 00:23 01:00 Temperature 99.3 F Pulse Rate 72 69 Pulse Rate [ Anterior Bilateral Throughout] Respiratory 35 H 38 H Rate Respiratory Rate [Anterior Bilateral Throughout] Blood Pressure 132/58 129/60 O2 Sat by Pulse 98 97 Oximetry 11/25/20 11/25/20 11/25/20 02:00 02:01 03:01 Temperature Pulse Rate 100 H 94 H Pulse Rate [ 105 H Anterior Bilateral Throughout] Respiratory 32 H 33 H Rate Respiratory 37 H Rate [Anterior Bilateral Throughout] Blood Pressure 195/119 122/52 O2 Sat by Pulse 96 96 Oximetry 11/25/20 11/25/20 11/25/20 03:52 04:00 04:24 Temperature 98.3 F Pulse Rate 89 79 Pulse Rate [ Anterior Bilateral Throughout] Respiratory 40 H 40 H Rate Respiratory Rate [Anterior Bilateral Throughout] Blood Pressure 118/51 118/51 O2 Sat by Pulse 97 98 Oximetry 11/25/20 11/25/20 11/25/20 05:00 08:00 09:02 Temperature 98.9 F Pulse Rate 108 H 112 H Pulse Rate [ 114 H Anterior Bilateral Throughout] Respiratory 27 H 28 H Rate Respiratory 27 H Rate [Anterior Bilateral Throughout] Blood Pressure 184/92 168/82 O2 Sat by Pulse 96 99 Oximetry 11/25/20 09:22 Temperature Pulse Rate 116 H Pulse Rate [ Anterior Bilateral Throughout] Respiratory Rate Respiratory Rate [Anterior Bilateral Throughout] Blood Pressure 168/82 O2 Sat by Pulse Oximetry - Lab 11/25/20 08:18 11/25/20 08:18 Most recent lab results ABG pH 7.281 (7.320-7.450) L 11/24/20 01:48 ABG O2 Saturation 96.9 (0-100) 11/24/20 01:48 Calcium 9.0 mg/dL (8.4-10.2) 11/25/20 08:18 Phosphorus 3.10 mg/dL (2.5-4.5) 11/25/20 08:18 Magnesium 2.10 mg/dL (1.7-2.3) 11/25/20 08:18 Urine Creatinine 158.2 mg/dL (0.1-20.0) H 11/22/20 00:11 Urine Sodium 39 mmol/L 11/22/20 00:11 Medications & Allergies - Medications Allergies/Adverse Reactions: Allergies No Known Allergies Allergy (Verified 11/11/18 08:08) Home Medications: Home Medications Medication Instructions Recorded Confirmed Last Taken Type Pantoprazole [Protonix TAB] 40 mg PO QDAY #30 tablet 04/11/19 11/22/20 Unknown Rx AtorvaSTATin 20 mg PO QHS 06/13/19 11/22/20 06/12/19 21:00 History Tamsulosin 0.4 mg PO DAILY 06/13/19 11/22/20 06/12/19 21:00 History carvediloL [Coreg] 3.125 mg PO BID 06/13/19 11/22/20 06/11/19 21:00 History Gabapentin 300 mg PO BID 11/22/20 11/22/20 Unknown History Active Medications: Generic Name Dose Route Start Last Admin Trade Name Freq PRN Reason Stop Dose Admin Acetaminophen 650 mg 11/23/20 15:29 Acetaminophen 325 Mg Tab PO Q4H PRN Pain, Mild (1-3) Albuterol 2.5 mg 11/22/20 01:19 Albuterol 2.5 Mg/3 Ml Nebu IH Q4HRT PRN Shortness Of Breath Albuterol/Ipratropium 1 ampul 11/22/20 02:00 11/25/20 09:00 Ipratropium/Albuterol Sulfate 3 Ml Ampul.Neb IH 1 ampul Q6HRT TERESA Administration Lipase/Protease/Amylase 1 each 11/22/20 09:07 Lipase 10,500/Protease 25,000/Amylase 43,750 (Units) Dr Cyr FEEDTUBE PRN PRN For Clogged Feeding Tube Aspirin 81 mg 11/23/20 10:00 11/24/20 12:32 Aspirin 81 Mg Tab Chew PO Not Given QDAY TERESA Atorvastatin Calcium 40 mg 11/22/20 22:00 11/24/20 21:17 Atorvastatin 40 Mg Tab PO Not Given QHS TERESA Budesonide 0.5 mg 11/24/20 14:55 11/25/20 09:01 Budesonide 0.5 Mg/2 Ml Nebu IH 0.5 mg Q12HRT TERESA Administration Haloperidol Lactate 5 mg 11/25/20 09:00 11/25/20 08:10 Haloperidol Lactate 5 Mg/1 Ml Inj IV 5 mg Q6H PRN Administration Agitation Heparin Sodium (Porcine) 5,000 unit 11/22/20 06:00 11/25/20 05:42 Heparin 5,000 Unit/1 Ml Vial SUB-Q 5,000 unit Q8HR TERESA Administration Hydralazine HCl 10 mg 11/22/20 01:24 11/25/20 09:22 Hydralazine 20 Mg/1 Ml Inj IV 10 mg Q6H PRN Administration Blood Pressure Hydrophilic Ointment 1 applic 11/22/20 00:38 Lip Therapy Vaseline TP Q2HR PRN Dry Lips Ceftriaxone Sodium 2 gm in 100 mls @ 200 mls/hr 11/22/20 02:00 11/25/20 08:03 Rocephin/Ns 2 Gm/100 Ml IV 11/26/20 02:29 200 mls/hr Q24H TERESA Administration Protocol Dextrose 1,000 mls @ 75 mls/hr 11/24/20 15:00 11/24/20 15:11 D5w IV 42 mls/hr DIRECT TERESA Administration Dexmedetomidine HCl 400 mcg/ 104 mls @ 4.228 mls/hr 11/25/20 10:00 11/25/20 09:54 Sodium Chloride IV 0.2 mcg/kg/hr TITRATE TERESA 4.228 mls/hr Administration Protocol 0.2 MCG/KG/HR Lorazepam 1 mg 11/24/20 14:53 11/25/20 09:23 Lorazepam 2 Mg/Ml Vial IV 1 mg Q4H PRN Administration Agitation Methylprednisolone Sodium Succinate 80 mg 11/24/20 22:00 11/25/20 05:42 Methylprednisolone Sod Succinate 125 Mg/2 Ml Inj IV 80 mg Q8HR TERESA Administration Metoprolol Tartrate 5 mg 11/25/20 12:00 Metoprolol Tartrate 5 Mg/5 Ml Inj IV Q6HR TERESA Multi-Ingred Cream/Lotion/Oil/Oint 1 applic 11/22/20 00:38 Mineral Oil/Petrolatum, White Ophth Oint 3.5 Gm OU Q4HR PRN Dry Eye(s) Nitroglycerin 0.4 mg 11/22/20 01:25 Nitroglycerin 0.4 Mg Tab Subl SL Q5M PRN Chest Pain Ondansetron HCl 4 mg 11/22/20 01:19 Ondansetron 4 Mg/2 Ml Inj IV Q8H PRN Nausea And Vomiting Pantoprazole Sodium 40 mg 11/25/20 10:00 Pantoprazole 40 Mg Inj IV QDAY TERESA Senna/Docusate Sodium 1 tab 11/22/20 10:00 11/24/20 21:18 Sennosides/Docusate Sodium 8.6/50 Mg Tab FEEDTUBE Not Given BID TERESA Simple Syrup 15 ml 11/22/20 09:07 Simple Syrup 15 Ml FEEDTUBE PRN PRN Hypoglycemia Simple Syrup 30 ml 11/22/20 09:07 Simple Syrup 15 Ml FEEDTUBE PRN PRN Hypoglycemia Sodium Bicarbonate 325 mg 11/22/20 09:07 Sodium Bicarbonate 325 Mg Tab FEEDTUBE PRN PRN For Clogged Feeding Tube Sodium Chloride 10 ml 11/22/20 10:00 11/24/20 21:18 Sodium Chloride 0.9% 10 Ml Flush Syringe IV 10 ml BID TERESA Administration Sodium Chloride 10 ml 11/22/20 01:19 Sodium Chloride 0.9% 10 Ml Flush Syringe IV PRN PRN LINE FLUSH Tamsulosin HCl 0.4 mg 11/22/20 10:00 11/24/20 12:32 Tamsulosin 0.4 Mg Cap PO Not Given DAILY TERESA
--- NOTE | 2020-11-25 11:04 | Progress Note ---
Assessment and Plan 85 y/o [place]auritan[place] male admitted with acute hypoxic respiratory failure. 11/25/20: Continue bipap for right now. Added precedex and stopped ativan as this may be worsening agitation. Ok with haldol use. Continue daily diuretics to keep patient net negative. Continue ICU monitoring for now. Renal function is better. Guarded prognosis. 11/23/20: Wean sedation to off. If patient can tolerate being off sedation, will attempt PSV trial, otherwise, will likely have to just stop sedation and extubate, will have bipap ready for as needed purposes. Needs chemistry to assess renal function. Out put was good. 1. Repeat ABG later this afternoon and wean FIO2 according (>88%) 2. Stop sedation, need to assess mental state 3. Follow up renal function and urine output. 4. Guarded prognosis, this is likely acute on chronic respiratory failure. cct 31 minutes. Subjective Date of service: 11/25/20 Principal diagnosis: Acute respiratory failure Interval history: Back on bipap, very agitated. ABG was good so FiO2 weaned down. No family at bedside yet. Per staff, son was there on yesterday. Objective Vital Signs - 12hr 11/24/20 11/24/20 11/25/20 23:00 23:13 00:00 Temperature Pulse Rate 72 97 H 73 Pulse Rate [ Anterior Bilateral Throughout] Respiratory 37 H 30 H 37 H Rate Respiratory Rate [Anterior Bilateral Throughout] Blood Pressure 127/58 127/58 132/58 O2 Sat by Pulse 97 99 97 Oximetry 11/25/20 11/25/20 11/25/20 00:15 00:23 01:00 Temperature 99.3 F Pulse Rate 72 69 Pulse Rate [ Anterior Bilateral Throughout] Respiratory 35 H 38 H Rate Respiratory Rate [Anterior Bilateral Throughout] Blood Pressure 132/58 129/60 O2 Sat by Pulse 98 97 Oximetry 11/25/20 11/25/20 11/25/20 02:00 02:01 03:01 Temperature Pulse Rate 100 H 94 H Pulse Rate [ 105 H Anterior Bilateral Throughout] Respiratory 32 H 33 H Rate Respiratory 37 H Rate [Anterior Bilateral Throughout] Blood Pressure 195/119 122/52 O2 Sat by Pulse 96 96 Oximetry 11/25/20 11/25/20 11/25/20 03:52 04:00 04:24 Temperature 98.3 F Pulse Rate 89 79 Pulse Rate [ Anterior Bilateral Throughout] Respiratory 40 H 40 H Rate Respiratory Rate [Anterior Bilateral Throughout] Blood Pressure 118/51 118/51 O2 Sat by Pulse 97 98 Oximetry 11/25/20 11/25/20 11/25/20 05:00 06:01 07:01 Temperature Pulse Rate 108 H 110 H 109 H Pulse Rate [ Anterior Bilateral Throughout] Respiratory 27 H 22 24 Rate Respiratory Rate [Anterior Bilateral Throughout] Blood Pressure 184/92 191/94 187/88 O2 Sat by Pulse 96 97 99 Oximetry 11/25/20 11/25/20 11/25/20 08:00 09:01 09:02 Temperature 98.9 F Pulse Rate 112 H 109 H 112 H Pulse Rate [ 114 H Anterior Bilateral Throughout] Respiratory 41 H 32 H 28 H Rate Respiratory 27 H Rate [Anterior Bilateral Throughout] Blood Pressure 176/89 168/82 168/82 O2 Sat by Pulse 98 98 99 Oximetry 11/25/20 11/25/20 09:22 10:00 Temperature Pulse Rate 116 H 107 H Pulse Rate [ Anterior Bilateral Throughout] Respiratory 38 H Rate Respiratory Rate [Anterior Bilateral Throughout] Blood Pressure 168/82 139/62 O2 Sat by Pulse 98 Oximetry Constitutional: other (critically ill on BIPAP) Eyes: non-icteric ENT: other (orally intubated and sedated) Neck: supple, other (large in circumference) Effort: mildly labored Ascultation: Bilateral: diminished breath sounds, wheezes Percussion: Bilateral: not dull Cardiovascular: other (tachy, no mrg) Gastrointestinal: normoactive bowel sounds, soft, non-tender, non-distended Extremities: no cyanosis, no edema, pink and warm Neurologic: non-focal exam Psychiatric: other (anxious appearing) CBC and BMP: 11/25/20 08:18 11/25/20 08:18 ABG, PT/INR, D-dimer: ABG ABG pH 7.281 (7.320-7.450) L 11/24/20 01:48 POC ABG pCO2 58.4 mmHg (32.0-48.0) H 11/24/20 01:48 POC ABG pO2 98.1 mmHg (83-108) 11/24/20 01:48 POC ABG HCO3 26.9 11/24/20 01:48 ABG O2 Saturation 96.9 (0-100) 11/24/20 01:48 PT/INR, D-dimer PT 13.5 Sec. (12.2-14.9) 11/21/20 20:50 INR 0.98 (0.87-1.13) 11/21/20 20:50 Abnormal lab findings: Abnormal Labs 11/21/20 11/21/20 11/22/20 20:50 20:50 00:11 WBC RBC 3.48 L Hgb 11.1 L Hct 34.3 L MCV 99 H Lymph % (Auto) 6.8 L [place] % (Auto) Lymph # (Auto) 0.6 L [place] # (Auto) Seg Neutrophils % 85.5 H Seg Neutrophils # ABG pH POC ABG pCO2 POC ABG pO2 ABG Hemoglobin ABG Sodium ABG Potassium ABG Glucose Carboxyhemoglobin Sodium 130 L Potassium 7.3 H* Chloride 91.1 L Carbon Dioxide BUN 40 H Creatinine 2.1 H Glucose 195 H POC Glucose Lactic Acid Calcium AST 91 H ALT 65 H CK-MB (CK-2) Rel Index 4.1 H Troponin T 0.045 H NT-Pro-B Natriuret Pep 6998 H Total Protein Albumin 3.7 L HDL Cholesterol 60 H Arterial Blood Glucose Arterial Blood Ionized Calcium Urine WBC (Auto) Urine Creatinine 158.2 H Hepatitis C Antibody 11/22/20 11/22/20 11/22/20 00:23 00:40 01:37 WBC 14.1 H RBC 3.53 L Hgb 11.0 L Hct 34.1 L MCV 97 H Lymph % (Auto) 12.3 L [place] % (Auto) 14.2 H Lymph # (Auto) [place] # (Auto) 2.0 H Seg Neutrophils % 72.3 H Seg Neutrophils # 10.2 H ABG pH POC ABG pCO2 POC ABG pO2 ABG Hemoglobin ABG Sodium ABG Potassium ABG Glucose Carboxyhemoglobin Sodium Potassium 5.1 H D Chloride Carbon Dioxide BUN Creatinine Glucose POC Glucose Lactic Acid 2.10 H* Calcium AST ALT CK-MB (CK-2) Rel Index Troponin T NT-Pro-B Natriuret Pep Total Protein Albumin HDL Cholesterol Arterial Blood Glucose Arterial Blood Ionized Calcium Urine WBC (Auto) Urine Creatinine Hepatitis C Antibody 11/22/20 11/22/20 11/22/20 01:37 03:20 05:00 WBC RBC Hgb Hct MCV Lymph % (Auto) [place] % (Auto) Lymph # (Auto) [place] # (Auto) Seg Neutrophils % Seg Neutrophils # ABG pH POC ABG pCO2 58.4 H POC ABG pO2 ABG Hemoglobin 11.1 L ABG Sodium 135.1 L ABG Potassium 5.0 H ABG Glucose Carboxyhemoglobin Sodium Potassium 5.1 H Chloride Carbon Dioxide 31 H BUN 40 H Creatinine 2.0 H Glucose 49 L POC Glucose Lactic Acid Calcium AST ALT CK-MB (CK-2) Rel Index Troponin T NT-Pro-B Natriuret Pep Total Protein Albumin HDL Cholesterol Arterial Blood Glucose Arterial Blood Ionized Calcium Urine WBC (Auto) 33.0 H Urine Creatinine Hepatitis C Antibody 11/22/20 11/22/20 11/22/20 05:00 05:00 05:00 WBC RBC Hgb Hct MCV Lymph % (Auto) [place] % (Auto) Lymph # (Auto) [place] # (Auto) Seg Neutrophils % Seg Neutrophils # ABG pH POC ABG pCO2 POC ABG pO2 ABG Hemoglobin ABG Sodium ABG Potassium ABG Glucose Carboxyhemoglobin Sodium 136 L Potassium Chloride 97.8 L Carbon Dioxide BUN 41 H Creatinine 1.8 H 1.8 H Glucose POC Glucose Lactic Acid Calcium 8.2 L AST ALT CK-MB (CK-2) Rel Index Troponin T 0.065 H D NT-Pro-B Natriuret Pep Total Protein Albumin HDL Cholesterol Arterial Blood Glucose Arterial Blood Ionized Calcium Urine WBC (Auto) Urine Creatinine Hepatitis C Antibody 11/22/20 11/22/20 11/22/20 10:20 10:20 15:00 WBC RBC 3.16 L Hgb 10.2 L Hct 29.9 L MCV 95 H Lymph % (Auto) [place] % (Auto) Lymph # (Auto) [place] # (Auto) Seg Neutrophils % Seg Neutrophils # ABG pH 7.501 H POC ABG pCO2 POC ABG pO2 ABG Hemoglobin 10.5 L ABG Sodium 134.9 L ABG Potassium ABG Glucose 115 H Carboxyhemoglobin 0.4 L Sodium Potassium Chloride Carbon Dioxide BUN Creatinine Glucose POC Glucose Lactic Acid Calcium AST ALT CK-MB (CK-2) Rel Index Troponin T 0.078 H NT-Pro-B Natriuret Pep Total Protein Albumin HDL Cholesterol Arterial Blood Glucose 115 H Arterial Blood Ionized Calcium 4.3 L Urine WBC (Auto) Urine Creatinine Hepatitis C Antibody 11/22/20 11/22/20 11/22/20 16:00 17:45 23:21 WBC RBC Hgb Hct MCV Lymph % (Auto) [place] % (Auto) Lymph # (Auto) [place] # (Auto) Seg Neutrophils % Seg Neutrophils # ABG pH POC ABG pCO2 POC ABG pO2 ABG Hemoglobin ABG Sodium ABG Potassium ABG Glucose Carboxyhemoglobin Sodium Potassium Chloride Carbon Dioxide BUN Creatinine Glucose POC Glucose 107 H 115 H Lactic Acid Calcium AST ALT CK-MB (CK-2) Rel Index Troponin T NT-Pro-B Natriuret Pep Total Protein Albumin HDL Cholesterol Arterial Blood Glucose Arterial Blood Ionized Calcium Urine WBC (Auto) Urine Creatinine Hepatitis C Antibody Reactive A 11/23/20 11/23/20 11/23/20 03:03 05:33 10:00 WBC RBC 3.33 L Hgb 10.6 L Hct 32.2 L MCV 97 H Lymph % (Auto) [place] % (Auto) 15.0 H Lymph # (Auto) [place] # (Auto) 1.5 H Seg Neutrophils % Seg Neutrophils # ABG pH POC ABG pCO2 POC ABG pO2 115.8 H ABG Hemoglobin 10.1 L ABG Sodium 135.8 L ABG Potassium ABG Glucose 98 H Carboxyhemoglobin 0.4 L Sodium Potassium Chloride Carbon Dioxide BUN Creatinine Glucose POC Glucose 106 H Lactic Acid Calcium AST ALT CK-MB (CK-2) Rel Index Troponin T NT-Pro-B Natriuret Pep Total Protein Albumin HDL Cholesterol Arterial Blood Glucose 98 H Arterial Blood Ionized Calcium 4.4 L Urine WBC (Auto) Urine Creatinine Hepatitis C Antibody 11/23/20 11/23/20 11/23/20 10:00 12:12 18:21 WBC RBC Hgb Hct MCV Lymph % (Auto) [place] % (Auto) Lymph # (Auto) [place] # (Auto) Seg Neutrophils % Seg Neutrophils # ABG pH POC ABG pCO2 POC ABG pO2 ABG Hemoglobin ABG Sodium ABG Potassium ABG Glucose Carboxyhemoglobin Sodium Potassium Chloride Carbon Dioxide BUN 22 H Creatinine Glucose 101 H POC Glucose 119 H 106 H Lactic Acid Calcium 7.9 L AST ALT CK-MB (CK-2) Rel Index Troponin T NT-Pro-B Natriuret Pep Total Protein 5.5 L Albumin 2.8 L HDL Cholesterol Arterial Blood Glucose Arterial Blood Ionized Calcium Urine WBC (Auto) Urine Creatinine Hepatitis C Antibody 11/23/20 11/24/20 11/24/20 23:28 01:48 09:58 WBC RBC Hgb Hct MCV Lymph % (Auto) [place] % (Auto) Lymph # (Auto) [place] # (Auto) Seg Neutrophils % Seg Neutrophils # ABG pH 7.281 L POC ABG pCO2 58.4 H POC ABG pO2 ABG Hemoglobin 11.8 L ABG Sodium ABG Potassium ABG Glucose 101 H Carboxyhemoglobin Sodium 148 H Potassium Chloride Carbon Dioxide 34 H D BUN Creatinine Glucose POC Glucose 108 H Lactic Acid Calcium AST ALT CK-MB (CK-2) Rel Index Troponin T NT-Pro-B Natriuret Pep Total Protein Albumin HDL Cholesterol Arterial Blood Glucose 101 H Arterial Blood Ionized Calcium Urine WBC (Auto) Urine Creatinine Hepatitis C Antibody 11/24/20 11/25/20 11/25/20 09:58 00:29 05:48 WBC RBC Hgb Hct MCV Lymph % (Auto) [place] % (Auto) Lymph # (Auto) [place] # (Auto) Seg Neutrophils % Seg Neutrophils # ABG pH POC ABG pCO2 POC ABG pO2 ABG Hemoglobin ABG Sodium ABG Potassium ABG Glucose Carboxyhemoglobin Sodium Potassium Chloride Carbon Dioxide BUN Creatinine Glucose POC Glucose 111 H 148 H Lactic Acid 0.60 L Calcium AST ALT CK-MB (CK-2) Rel Index Troponin T NT-Pro-B Natriuret Pep Total Protein Albumin HDL Cholesterol Arterial Blood Glucose Arterial Blood Ionized Calcium Urine WBC (Auto) Urine Creatinine Hepatitis C Antibody 11/25/20 11/25/20 08:18 08:18 WBC 13.2 H RBC 3.56 L Hgb 10.9 L Hct 34.0 L MCV 96 H Lymph % (Auto) [place] % (Auto) Lymph # (Auto) [place] # (Auto) Seg Neutrophils % Seg Neutrophils # ABG pH POC ABG pCO2 POC ABG pO2 ABG Hemoglobin ABG Sodium ABG Potassium ABG Glucose Carboxyhemoglobin Sodium 147 H Potassium Chloride Carbon Dioxide 32 H BUN 26 H Creatinine Glucose 151 H POC Glucose Lactic Acid Calcium AST ALT CK-MB (CK-2) Rel Index Troponin T NT-Pro-B Natriuret Pep Total Protein 6.0 L Albumin 3.7 L HDL Cholesterol Arterial Blood Glucose Arterial Blood Ionized Calcium Urine WBC (Auto) Urine Creatinine Hepatitis C Antibody
[2020-11-25] MEDS ORDERED: FAMOTIDINE 20 MG TAB ONE (11:09)
[2020-11-25] MEDS ORDERED: LACTATED RINGERS 1,000 ML ONE (11:09)
[2020-11-25] MEDS: PANTOPRAZOLE 40 MG INJ IV SCH (11:10)
--- NOTE | 2020-11-25 11:12 | Progress Note ---
Assessment and Plan NSTEMI suspect type II with history of coronary artery disease post CABG * Troponins are elevated and trending up. Continue to trend Iggy. * Echocardiogram reviewed (11/22/2020): LVEF is 50 to 55%. LV is normal size. LV SF is normal. Mild diastolic dysfunction. RV SF is normal. Mild aortic stenosis: Highest mean AV gradient is 12.37 mmHg. Moderate mitral stenosis. Severe pulmonary hypertension RVSP 74 mmHg, mild TR. * Hx Mitral Valve Repair (2004). Consider HECTOR if further characterization of Mitral Stenosis is requested. Pulm HTN * Optimize volume control: Lasix 40 mg IV daily. Continue diuresis for now per pulmonology recommendations. Strict IO's. Pt seen in conjunction with Dr. Whitfield, who agrees with the assessment and plan of care. - Patient Problems (1) Acute metabolic encephalopathy Current Visit: Yes Status: Acute (2) Acute and chronic respiratory failure ([id number]) Current Visit: Yes Status: Acute Qualifiers: Respiratory failure complication: hypoxia Qualified Code(s): J96.21 - Acute and chronic respiratory failure with hypoxia (3) COPD (chronic obstructive pulmonary disease) Current Visit: Yes Status: Chronic (4) Pulmonary hypertension Current Visit: Yes Status: Chronic (5) Acute kidney injury Current Visit: Yes Status: Acute (6) Anemia Current Visit: Yes Status: Chronic (7) NSTEMI (non-ST elevated myocardial infarction) Current Visit: Yes Status: Acute Plan to address problem: Type 2 (8) CAD (coronary artery disease) Current Visit: Yes Status: Chronic Qualifiers: Coronary Disease-Associated Artery/Lesion type: [place] artery [place] vs. transplanted heart: mak[place] heart (9) History of coronary artery bypass graft Current Visit: Yes Status: Chronic (10) S/P mitral valve repair Current Visit: Yes Status: Chronic Plan to address problem: 2005 (11) Hypertension Current Visit: Yes Status: Chronic Qualifiers: Hypertension type: primary hypertension Qualified Code(s): I10 - Essential (primary) hypertension (12) Type 2 diabetes mellitus Current Visit: Yes Status: Chronic Qualifiers: Qualified Code(s): E11.9 - Type 2 diabetes mellitus without complications (13) Carotid stenosis Current Visit: Yes Status: Chronic Qualifiers: Laterality: right Qualified Code(s): I65.21 - Occlusion and stenosis of right carotid artery (14) S/P carotid endarterectomy Current Visit: Yes Status: Chronic (15) H/O: GI bleed Current Visit: Yes Status: Chronic Subjective Date of service: 11/25/20 Principal diagnosis: Acute respiratory failure Interval history: Patient is currently altered mental status, extubated on CPAP. Telemetry reviewed: Sinus tach 105. Episode of 3 beat V. tach noted overnight Objective Last Vital Signs Temp 98.9 F 11/25/20 08:00 Pulse 107 H 11/25/20 10:00 Resp 38 H 11/25/20 10:00 BP 139/62 11/25/20 10:00 Pulse Ox 98 11/25/20 10:00 - Physical Examination General: Other (agitated, on BiPAP) HEENT: Positive: EOMI, Normocephaly Neck: Positive: neck supple, trachea midline. Negative: JVD/HJR Cardiac: Positive: Reg Rate and Rhythm, S1/S2 Lungs: Positive: Decreased Breath Sounds, Other (CPAP) Neuro: Positive: Other (agitated, AMS) Abdomen: Positive: Soft Skin: Negative: Rash Extremities: Present: lower extr. pulses. Absent: edema - Labs and Meds Cardiac Enzymes 11/25/20 Range/Units 08:18 AST 25 (5-40) units/L CBC 11/25/20 Range/Units 08:18 WBC 13.2 H (4.5-11.0) K/mm3 RBC 3.56 L (3.65-5.03) M/mm3 Hgb 10.9 L (11.8-15.2) gm/dl Hct 34.0 L (35.5-45.6) % Plt Count 280 (140-440) K/mm3 Comprehensive Metabolic Panel 11/25/20 Range/Units 08:18 Sodium 147 H (137-145) mmol/L Potassium 3.8 (3.6-5.0) mmol/L Chloride 102.5 (98-107) mmol/L Carbon Dioxide 32 H (22-30) mmol/L BUN 26 H (9-20) mg/dL Creatinine 1.2 (0.8-1.3) mg/dL Glucose 151 H (75-100) mg/dL Calcium 9.0 (8.4-10.2) mg/dL AST 25 (5-40) units/L ALT 30 (7-56) units/L Alkaline Phosphatase 65 (35-129) units/L Total Protein 6.0 L (6.3-8.2) g/dL Albumin 3.7 L (3.9-5) g/dL - Imaging and Cardiology EKG: report reviewed, image reviewed Echo: report reviewed (Echocardiogram reviewed (11/22/2020): LVEF is 50 to 55%. LV is normal size. LV SF is normal. Mild diastolic dysfunction. RV SF is normal. Mild aortic stenosis: Highest mean AV gradient is 12.37 mmHg. Moderate mitral stenosis. Severe pulmonary hypertension RVSP 74 mmHg, mild TR.), other (05/2019 - normal LV function, mild mitral stenosis) - Telemetry EKG Rhythm: Sinus Tachycardia - EKG Sinus rhythms and dysrhythmias: sinus rhythm Repolarization changes or abnormalities: nonspecific abnormality, ST segment, and/or T wave
[2020-11-25] MEDS: ASPIRIN 81 MG TAB CHEW PO SCH (11:16)
[2020-11-25] MEDS ORDERED: NORepinephrine/NS 4 MG-250 ML 4 MG/250 ML BAG IV ONE (11:16)
[2020-11-25] MEDS: TAMSULOSIN 0.4 MG CAP PO SCH (11:16)
[2020-11-25] MEDS: SENNOSIDES/DOCUSATE SODIUM 8.6/50 MG TAB FEEDTUBE SCH ×2 (11:16→22:43)
[2020-11-25] MEDS: METOPROLOL TARTRATE 5 MG/5 ML INJ IV SCH ×2 (11:58→17:29)
[2020-11-25 13:01] LABS: Total Cells Counted 100
[2020-11-25 13:02] LABS: Promyelocytes # (Manual) 43.8 K/mm3
[2020-11-25 13:03] LABS: Hypochromasia 1+; Platelet Estimate Consistent w Auto; Target Cells 1+; Toxic Granulation Few
[2020-11-25] MEDS: FUROSEMIDE 40 MG/4 ML INJ IV SCH (13:29)
[2020-11-26] MEDS: IPRATROPIUM/ALBUTEROL SULFATE 3 ML AMPUL.NEB IH SCH ×4 (02:35→20:12)
[2020-11-26 06:53] LABS: Hematocrit 33.6 % (35.5-45.6); Hemoglobin 11.1 gm/dl (11.8-15.2); Mean Corpuscular HGB Conc 33 % (32-34); Mean Corpuscular Volume 95 fl (84-94); Platelet Count 261 K/mm3 (140-440); Red Blood Count 3.52 M/mm3 (3.65-5.03)
[2020-11-26 07:43] LABS: Albumin 3.1 g/dL (3.9-5); Calcium 8.6 mg/dL (8.4-10.2)
[2020-11-26] MEDS: METOPROLOL TARTRATE 5 MG/5 ML INJ IV SCH ×3 (08:12→17:39)
[2020-11-26] MEDS: cefTRIAXone/NS 2 GM/100 ML 2 GM/100 ML BAG IV SCH (08:13)
[2020-11-26] MEDS: methylPREDNISolone Sod Succinate 125 MG/2 ML INJ IV SCH ×3 (08:13→21:25)
[2020-11-26] MEDS: HEPARIN 5,000 UNIT/1 ML VIAL SUB-Q SCH ×3 (08:13→21:26)
[2020-11-26] MEDS: hydrALAZINE 20 MG/1 ML INJ IV PRN (08:26)
[2020-11-26] MEDS: BUDESONIDE 0.5 MG/2 ML NEBU IH SCH ×2 (08:29→20:12)
[2020-11-26] MEDS: SENNOSIDES/DOCUSATE SODIUM 8.6/50 MG TAB FEEDTUBE SCH ×2 (09:08→21:25)
[2020-11-26] MEDS: ASPIRIN 81 MG TAB CHEW PO SCH (09:08)
[2020-11-26] MEDS: FUROSEMIDE 40 MG/4 ML INJ IV SCH (09:08)
[2020-11-26] MEDS: TAMSULOSIN 0.4 MG CAP PO SCH (09:08)
--- NOTE | 2020-11-26 09:31 | Progress Note ---
Assessment and Plan Assessment and plan: 85-year-old male patient with past medical history of COPD on home oxygen, GERD, hypertension, asthma, hyperlipidemia, vasopressin, bladder cancer admitted for acute hypoxic respiratory failure, intubated on 11/21/2020 managed appropriately evaluated by pulmonary critical subsequently extubated on 11/24/19 21, today patient is on high flow nasal cannula oxygen, pulmonary critical, cardiology and nephrology following the patient --Hypokalemia; replenished with 40 mEq of KCl via [place] --Acute kidney injury; vasomotor nephropathy Gentle hydration closely monitor renal function --Acute hypoxic respiratory failure/Requiring intubation 11/21/2020 s/p extubation 11/23/2020, patient is on noninvasive ventilation today patient is on high flow nasal cannula oxygen Wean as tolerated, --Acute exacerbation of COPD; Home oxygen dependent BiPAP as needed, wean as tolerated Pulmonary hygiene, pulmonary critical care following --Severe pulmonary hypertension; Management per pulmonary, continue supportive care --Acute metabolic encephalopathy -11/21 CT head shows no acute intracranial abnormality, sinus disease Continue supportive care --NSTEMI type II Presented with CARRIE with elevated troponins cardiology patient had a stress test in 2019 which showed no significant ischemia, Echo; EF 50 to 55% severe pulmonary hypertension moderate mitral stenosis may benefit from HECTOR for evaluation of mitral valve when patient is stable and extubated --Acute kidney injury; present on admission Vasomotor nephropathy Now resolved, normal renal function Avoid nephrotoxins, nephrology following --History of bladder cancer; Indwelling Paulson in place, supportive care Continue Flomax --Urinary tract infection; Continue empiric antibiotics total 5 days Supportive care --Dyslipidemia; Continue statin and low-cholesterol diet --Hypertension; moderate control We will continue current antihypertensives And as needed hydralazine --Hypernatremia ; Patient was hyponatremia on admission ,probably overcorrection Free water via Dobbhoff, nephrology following Monitor electrolytes --Severe protein calorie malnutrition ; Hypoalbuminemia ,nutrition supplements Nutrition consult and supportive care --DVT prophylaxis; Subcu heparin, SCDs --GI prophylaxis; Continue Prevacid --Full CODE STATUS; We will closely monitor the patient and adjust the management as needed Consults and recommendations noted and appreciated Plan of care reviewed with the patient's nurse The high probability of a clinically significant, sudden or life threatening deterioration of the [resp, cardiac, nephrology, metabolic] system(s) required my full and direct attention, intervention and personal management. The aggregate critical care time was [34] minutes. This time is in addition to time spent performing reported procedures but includes the following: [x] Data Review and interpretation [x] Patient assessment and monitoring of vital signs [x] Documentation [x] Medication orders and management 11/23: Patient was extubated, currently on BiPAP Mild distress, wean as tolerated 11/25/2020; patient is on BiPAP Mild distress, noncommunicative 11/26/2020; patient is on intermittent BiPAP Currently on high flow nasal cannula oxygen History Interval history: Patient is on high flow nasal cannula oxygen with intermittent BiPAP Hospitalist Physical - Constitutional Vitals: Temp Pulse Resp BP Pulse Ox 98.0 F 78 25 H 181/79 99 11/26/20 04:00 11/26/20 08:32 11/26/20 08:32 11/26/20 08:26 11/26/20 08:00 General appearance: Present: mild distress, well-nourished, obese, other (On BiPAP, slightly agitated) - EENT Eyes: Present: PERRL, EOM intact - Neck Neck: Present: supple, normal ROM - Respiratory Respiratory effort: normal Respiratory: bilateral: diminished, rales, negative: rhonchi, wheezing - Cardiovascular Rhythm: regular Heart Sounds: Present: S1 & S2 - Extremities Extremities: no ischemia, No edema - Abdominal General gastrointestinal: soft, non-tender, non-distended, normal bowel sounds - Integumentary Integumentary: Present: clear, warm - Psychiatric Psychiatric: appropriate mood/affect, cooperative - Neurologic Neurologic: CNII-XII intact, moves all extremities HEART Score - HEART Score Troponin: Troponin T 0.036 ng/mL (0.00-0.029) H D 11/26/20 06:22 Results - Labs CBC & Chem 7: 11/26/20 06:22 11/26/20 06:22 Labs: Laboratory Last Values WBC 12.3 K/mm3 (4.5-11.0) H 11/26/20 06:22 RBC 3.52 M/mm3 (3.65-5.03) L 11/26/20 06:22 Hgb 11.1 gm/dl (11.8-15.2) L 11/26/20 06:22 Hct 33.6 % (35.5-45.6) L 11/26/20 06:22 MCV 95 fl (84-94) H 11/26/20 06:22 MCH 31 pg (28-32) 11/26/20 06:22 MCHC 33 % (32-34) 11/26/20 06:22 RDW 15.0 % (13.2-15.2) 11/26/20 06:22 Plt Count 261 K/mm3 (140-440) 11/26/20 06:22 Lymph % (Auto) 16.1 % (13.4-35.0) 11/23/20 10:00 Haakon % (Auto) 15.0 % (0.0-7.3) H 11/23/20 10:00 Eos % (Auto) 1.0 % (0.0-4.3) 11/23/20 10:00 Baso % (Auto) 0.5 % (0.0-1.8) 11/23/20 10:00 Lymph # (Auto) 1.6 K/mm3 (1.2-5.4) 11/23/20 10:00 Haakon # (Auto) 1.5 K/mm3 (0.0-0.8) H 11/23/20 10:00 Eos # (Auto) 0.1 K/mm3 (0.0-0.4) 11/23/20 10:00 Baso # (Auto) 0.1 K/mm3 (0.0-0.1) 11/23/20 10:00 Add Manual Diff Complete 11/25/20 08:18 Total Counted 100 11/25/20 08:18 Seg Neutrophils % Fur Comber 11/25/20 08:18 Seg Neuts % (Manual) 98.0 % (40.0-70.0) H 11/25/20 08:18 Monocytes % (Manual) 2.0 % (0.0-7.3) 11/25/20 08:18 Nucleated RBC % 1.0 % (0.0-0.9) H 11/25/20 08:18 Seg Neutrophils # 6.6 K/mm3 (1.8-7.7) 11/23/20 10:00 Seg Neutrophils # Man 12.9 K/mm3 (1.8-7.7) H 11/25/20 08:18 Band Neutrophils # 0.0 K/mm3 11/25/20 08:18 Lymphocytes # (Manual) 0.0 K/mm3 (1.2-5.4) L 11/25/20 08:18 Abs React Lymphs (Man) 0.0 K/mm3 11/25/20 08:18 Monocytes # (Manual) 0.3 K/mm3 (0.0-0.8) 11/25/20 08:18 Eosinophils # (Manual) 0.0 K/mm3 (0.0-0.4) 11/25/20 08:18 Basophils # (Manual) 0.0 K/mm3 (0.0-0.1) 11/25/20 08:18 Metamyelocytes # 0.0 K/mm3 11/25/20 08:18 Myelocytes # 0.0 K/mm3 11/25/20 08:18 Promyelocytes # 43.8 K/mm3 11/25/20 08:18 Blast Cells # 0.0 K/mm3 11/25/20 08:18 WBC Morphology Not Reportable 11/25/20 08:18 Hypersegmented Neuts Not Reportable 11/25/20 08:18 Hyposegmented Neuts Not Reportable 11/25/20 08:18 Hypogranular Neuts Not Reportable 11/25/20 08:18 Smudge Cells Not Reportable 11/25/20 08:18 Toxic Granulation Few 11/25/20 08:18 Toxic Vacuolation Not Reportable 11/25/20 08:18 Dohle Bodies Not Reportable 11/25/20 08:18 Pelger-Huet Anomaly Not Reportable 11/25/20 08:18 Liang Rods Not Reportable 11/25/20 08:18 Platelet Estimate Consistent w auto 11/25/20 08:18 Clumped Platelets Not Reportable 11/25/20 08:18 Plt Clumps, EDTA Not Reportable 11/25/20 08:18 Large Platelets Not Reportable 11/25/20 08:18 Giant Platelets Not Reportable 11/25/20 08:18 Platelet Satelliting Not Reportable 11/25/20 08:18 Plt Morphology Comment Not Reportable 11/25/20 08:18 RBC Morphology Not Reportable 11/25/20 08:18 Dimorphic RBCs Not Reportable 11/25/20 08:18 Polychromasia Not Reportable 11/25/20 08:18 Hypochromasia 1+ 11/25/20 08:18 Poikilocytosis Not Reportable 11/25/20 08:18 Anisocytosis Not Reportable 11/25/20 08:18 Microcytosis Not Reportable 11/25/20 08:18 Macrocytosis Not Reportable 11/25/20 08:18 Spherocytes Not Reportable 11/25/20 08:18 Pappenheimer Bodies Not Reportable 11/25/20 08:18 Sickle Cells Not Reportable 11/25/20 08:18 Target Cells 1+ 11/25/20 08:18 Tear Drop Cells Not Reportable 11/25/20 08:18 Ovalocytes Not Reportable 11/25/20 08:18 Helmet Cells Not Reportable 11/25/20 08:18 [place] Bodies Not Reportable 11/25/20 08:18 [place] Rings Not Reportable 11/25/20 08:18 [place] Cells Not Reportable 11/25/20 08:18 Bite Cells Not Reportable 11/25/20 08:18 Crenated Cell Not Reportable 11/25/20 08:18 Elliptocytes Not Reportable 11/25/20 08:18 Acanthocytes (Spur) Not Reportable 11/25/20 08:18 Rouleaux Not Reportable 11/25/20 08:18 Hemoglobin C Crystals Not Reportable 11/25/20 08:18 Schistocytes Not Reportable 11/25/20 08:18 Malaria parasites Not Reportable 11/25/20 08:18 Fuad Bodies Not Reportable 11/25/20 08:18 Hem Pathologist Commnt No 11/25/20 08:18 PT 13.5 Sec. (12.2-14.9) 11/21/20 20:50 INR 0.98 (0.87-1.13) 11/21/20 20:50 APTT 32.1 Sec. (24.2-36.6) 11/21/20 20:50 ABG pH 7.281 (7.320-7.450) L 11/24/20 01:48 POC ABG pCO2 58.4 mmHg (32.0-48.0) H 11/24/20 01:48 POC ABG pO2 98.1 mmHg (83-108) 11/24/20 01:48 POC ABG HCO3 26.9 11/24/20 01:48 ABG O2 Saturation 96.9 (0-100) 11/24/20 01:48 POC ABG Base Excess -0.7 11/24/20 01:48 ABG Hemoglobin 11.8 (12.0-17.5) L 11/24/20 01:48 ABG Oxyhemoglobin 95.9 (94-98) 11/24/20 01:48 ABG Methemoglobin 0.3 (0.0-1.5) 11/24/20 01:48 ABG Sodium 140.6 mmol/L (136.0-145.0) 11/24/20 01:48 ABG Potassium 3.9 mmol/L (3.40-4.50) 11/24/20 01:48 ABG Chloride 104.0 mmol/L (98-107) 11/24/20 01:48 ABG Glucose 101 mg/dL (65-95) H 11/24/20 01:48 Carboxyhemoglobin 0.7 (0.5-1.5) 11/24/20 01:48 FiO2 % 50.0 11/24/20 01:48 Sodium 137 mmol/L (137-145) D 11/26/20 06:22 Potassium 3.3 mmol/L (3.6-5.0) L 11/26/20 06:22 Chloride 95.8 mmol/L (98-107) L 11/26/20 06:22 Carbon Dioxide 33 mmol/L (22-30) H 11/26/20 06:22 Anion Gap 12 mmol/L 11/26/20 06:22 BUN 35 mg/dL (9-20) H 11/26/20 06:22 Creatinine 1.4 mg/dL (0.8-1.3) H 11/26/20 06:22 Estimated GFR 48 ml/min 11/26/20 06:22 BUN/Creatinine Ratio 25 % 11/26/20 06:22 Glucose 185 mg/dL (75-100) H 11/26/20 06:22 POC Glucose 184 mg/dL (70-105) H 11/26/20 05:07 Lactic Acid 0.60 mmol/L (0.7-2.0) L 11/24/20 09:58 Calcium 8.6 mg/dL (8.4-10.2) 11/26/20 06:22 Phosphorus 3.10 mg/dL (2.5-4.5) 11/25/20 08:18 Magnesium 2.00 mg/dL (1.7-2.3) 11/26/20 06:22 Total Bilirubin 0.30 mg/dL (0.1-1.2) 11/26/20 06:22 AST 18 units/L (5-40) 11/26/20 06:22 ALT 22 units/L (7-56) 11/26/20 06:22 Alkaline Phosphatase 55 units/L (35-129) 11/26/20 06:22 Total Creatine Kinase 132 units/L (55-170) 11/22/20 10:20 CK-MB (CK-2) 3.3 ng/mL (0.0-4.0) 11/22/20 10:20 CK-MB (CK-2) Rel Index 2.5 (0-4) 11/22/20 10:20 Troponin T 0.036 ng/mL (0.00-0.029) H D 11/26/20 06:22 NT-Pro-B Natriuret Pep 6998 pg/mL (0-900) H 11/21/20 20:50 Total Protein 6.2 g/dL (6.3-8.2) L 11/26/20 06:22 Albumin 3.1 g/dL (3.9-5) L 11/26/20 06:22 Albumin/Globulin Ratio 1.0 % 11/26/20 06:22 Triglycerides 84 mg/dL (2-149) 11/21/20 20:50 Cholesterol 125 mg/dL (50-199) 11/21/20 20:50 LDL Cholesterol Direct 57 mg/dL (50-130) 11/21/20 20:50 HDL Cholesterol 60 mg/dL (40-59) H 11/21/20 20:50 Cholesterol/HDL Ratio 2.08 % 11/21/20 20:50 TSH 1.290 mlU/mL (0.270-4.200) 11/21/20 20:50 Free T4 1.18 ng/dL (0.76-1.46) 11/21/20 20:50 Arterial Blood Glucose 101 mg/dL (65-95) H 11/24/20 01:48 Arterial Blood Ionized Calcium 4.7 mg/dL (4.6-5.3) 11/24/20 01:48 Urine Color Yellow (Yellow) 11/22/20 05:00 Urine Turbidity Slightly-cloudy (Clear) 11/22/20 05:00 Urine pH 5.0 (5.0-7.0) 11/22/20 05:00 Ur Specific [place] 1.016 (1.003-1.030) 11/22/20 05:00 Urine Protein 30 mg/dl mg/dL (Negative) 11/22/20 05:00 Urine Glucose (UA) Neg mg/dL (Negative) 11/22/20 05:00 Urine Ketones Neg mg/dL (Negative) 11/22/20 05:00 Urine Blood Lg (Negative) 11/22/20 05:00 Urine Nitrite Neg (Negative) 11/22/20 05:00 Urine Bilirubin Neg (Negative) 11/22/20 05:00 Urine Urobilinogen < 2.0 mg/dL (<2.0) 11/22/20 05:00 Ur Leukocyte Esterase Tr (Negative) 11/22/20 05:00 Urine WBC (Auto) 33.0 /HPF (0.0-6.0) H 11/22/20 05:00 Urine RBC (Auto) 49.0 /HPF (0.0-6.0) 11/22/20 05:00 U Epithel Cells (Auto) 1.0 /HPF (0-13.0) 11/22/20 05:00 Hyaline Casts 4 /LPF 11/22/20 05:00 Urine Mucus 1+ /HPF 11/22/20 05:00 Urine Eosinophils None seen (None Seen) 11/24/20 17:55 Urine Creatinine 158.2 mg/dL (0.1-20.0) H 11/22/20 00:11 Urine Sodium 39 mmol/L 11/22/20 00:11 Fraction Sodium Excret 0.3 11/22/20 00:11 Urine Opiates Screen Presumptive negative 11/22/20 00:11 Urine Methadone Screen Presumptive negative 11/22/20 00:11 Ur Barbiturates Screen Presumptive negative 11/22/20 00:11 Ur Phencyclidine Scrn Presumptive negative 11/22/20 00:11 Ur Amphetamines Screen Presumptive negative 11/22/20 00:11 U Benzodiazepines Scrn Presumptive negative 11/22/20 00:11 Urine Cocaine Screen Presumptive negative 11/22/20 00:11 U Marijuana (THC) Screen Presumptive negative 11/22/20 00:11 Drugs of Abuse Note Disclamer 11/22/20 00:11 Plasma/Serum Alcohol < 0.01 % (0-0.07) 11/21/20 20:50 Complement C3 93 mg/dL () 11/22/20 16:00 Complement C4 25 mg/dL () 11/22/20 16:00 Coronavirus (PCR) Negative (Negative) 11/23/20 09:30 Hepatitis A IgM Ab Non-reactive (NonReactive) 11/22/20 16:00 Hep Bs Antigen Non-reactive (Negative) 11/22/20 16:00 Hep B Core IgM Ab Non-reactive (NonReactive) 11/22/20 16:00 Hepatitis C Antibody Reactive (NonReactive) A 11/22/20 16:00 Microbiology: Microbiology 11/22/20 00:40 Peripheral/Venous Blood Culture - Preliminary NO GROWTH AFTER 4 DAYS 11/22/20 00:40 Peripheral/Venous Blood Culture - Preliminary NO GROWTH AFTER 4 DAYS Paulson/IV: Voiding Method Indwelling Catheter Active Medications - Current Medications Current Medications: Generic Name Dose Route Start Last Admin Trade Name Freq PRN Reason Stop Dose Admin Acetaminophen 650 mg 11/23/20 15:29 Acetaminophen 325 Mg Tab PO Q4H PRN Pain, Mild (1-3) Albuterol 2.5 mg 11/22/20 01:19 Albuterol 2.5 Mg/3 Ml Nebu IH Q4HRT PRN Shortness Of Breath Albuterol/Ipratropium 1 ampul 11/22/20 02:00 11/26/20 08:29 Ipratropium/Albuterol Sulfate 3 Ml Ampul.Neb IH 1 ampul Q6HRT [facility] Administration Lipase/Protease/Amylase 1 each 11/22/20 09:07 Lipase 10,500/Protease 25,000/Amylase 43,750 (Units) Dr Cyr FEEDTUBE PRN PRN For Clogged Feeding Tube Aspirin 81 mg 11/23/20 10:00 11/26/20 09:08 Aspirin 81 Mg Tab Chew PO Not Given QDAY [facility] Atorvastatin Calcium 40 mg 11/22/20 22:00 11/25/20 22:43 Atorvastatin 40 Mg Tab PO Not Given QHS TERESA Budesonide 0.5 mg 11/24/20 14:55 11/26/20 08:29 Budesonide 0.5 Mg/2 Ml Nebu IH 0.5 mg Q12HRT TERESA Administration Furosemide 40 mg 11/25/20 13:00 11/26/20 09:08 Furosemide 40 Mg/4 Ml Inj IV Not Given QDAY TERESA Haloperidol Lactate 5 mg 11/25/20 09:00 11/25/20 08:10 Haloperidol Lactate 5 Mg/1 Ml Inj IV 5 mg Q6H PRN Administration Agitation Heparin Sodium (Porcine) 5,000 unit 11/22/20 06:00 11/26/20 08:13 Heparin 5,000 Unit/1 Ml Vial SUB-Q Not Given Q8HR TERESA Hydralazine HCl 10 mg 11/22/20 01:24 11/26/20 08:26 Hydralazine 20 Mg/1 Ml Inj IV 10 mg Q6H PRN Administration Blood Pressure Hydrophilic Ointment 1 applic 11/22/20 00:38 Lip Therapy Vaseline TP Q2HR PRN Dry Lips Dextrose 1,000 mls @ 75 mls/hr 11/24/20 15:00 11/25/20 10:34 D5w IV 75 mls/hr DIRECT TERESA Infusion Dexmedetomidine HCl 400 mcg/ 104 mls @ 4.228 mls/hr 11/25/20 10:00 11/26/20 08:26 Sodium Chloride IV 0.8 mcg/kg/hr TITRATE TERESA 16.91 mls/hr Administration Protocol 0.2 MCG/KG/HR Methylprednisolone Sodium Succinate 80 mg 11/24/20 22:00 11/26/20 08:13 Methylprednisolone Sod Succinate 125 Mg/2 Ml Inj IV Not Given Q8HR TERESA Metoprolol Tartrate 5 mg 11/25/20 12:00 11/26/20 08:12 Metoprolol Tartrate 5 Mg/5 Ml Inj IV Not Given Q6HR TERESA Multi-Ingred Cream/Lotion/Oil/Oint 1 applic 11/22/20 00:38 Mineral Oil/Petrolatum, White Ophth Oint 3.5 Gm OU Q4HR PRN Dry Eye(s) Nitroglycerin 0.4 mg 11/22/20 01:25 Nitroglycerin 0.4 Mg Tab Subl SL Q5M PRN Chest Pain Ondansetron HCl 4 mg 11/22/20 01:19 Ondansetron 4 Mg/2 Ml Inj IV Q8H PRN Nausea And Vomiting Pantoprazole Sodium 40 mg 11/25/20 10:00 11/25/20 11:10 Pantoprazole 40 Mg Inj IV 40 mg QDAY TERESA Administration Senna/Docusate Sodium 1 tab 11/22/20 10:00 11/26/20 09:08 Sennosides/Docusate Sodium 8.6/50 Mg Tab FEEDTUBE Not Given BID TERESA Simple Syrup 15 ml 11/22/20 09:07 Simple Syrup 15 Ml FEEDTUBE PRN PRN Hypoglycemia Simple Syrup 30 ml 11/22/20 09:07 Simple Syrup 15 Ml FEEDTUBE PRN PRN Hypoglycemia Sodium Bicarbonate 325 mg 11/22/20 09:07 Sodium Bicarbonate 325 Mg Tab FEEDTUBE PRN PRN For Clogged Feeding Tube Sodium Chloride 10 ml 11/22/20 10:00 11/25/20 11:11 Sodium Chloride 0.9% 10 Ml Flush Syringe IV 10 ml BID TERESA Administration Sodium Chloride 10 ml 11/22/20 01:19 Sodium Chloride 0.9% 10 Ml Flush Syringe IV PRN PRN LINE FLUSH Tamsulosin HCl 0.4 mg 11/22/20 10:00 11/26/20 09:08 Tamsulosin 0.4 Mg Cap PO Not Given DAILY TERESA Nutrition/Malnutrition Assess - Dietary Evaluation Nutrition/Malnutrition Findings: Nutrition Notes Start: 11/22/20 08:53 Freq: Status: Active Protocol: Document 11/24/20 11:36 (Rec: 11/24/20 11:41 [email or web address]) Nutrition Notes Initial or Follow up Reassessment Current Diagnosis Acute Kidney Injury,COPD, Coronary Artery Disease, Diabetes,Hypertension,Heart Failure,Respiratory Failure, Hyperlipidemia Other Pertinent Diagnosis AMS Current Diet NPO Labs/Tests Na 148 Pertinent Medications D5NS at 125 ml/hr Height 5 ft 3 in Weight 81.3 kg [place] Body Weight (kg) 56.36 BMI 31.7 Weight Status Obese Subjective/Other Information Pt was extubated yesterday and is now on bipap. Pt was tolerating TF at 25 ml/hr. Burn Absent Trauma Absent Current % PO Negligible Minimum of two criteria No physical signs of malnutrition #1 Nutrition Diagnosis Inadequate oral intake As Evidenced by Signs and Symptoms pt on bipap and unable to consume PO Diagnosis Progress(for reassessment Continues documentation) Is patient on ventilator? No Is Patient Ambulatory and/or Out of Bed No REE-([facility]-confined to bed) 1673.028 Kcal/Kg value to use for calculation 17 Approximate Energy Requirements Using 1382 kcal/Kg Calculation Used for Recommendations Kcal/kg Additional Notes protein needs: 69-82g (1-1.2g/ kg AdjBW: 69kg) fluid needs: 1 ml/kcal or per MD order Nutrition Intervention Change Diet Order: Diet advancement when able Goal #1 Diet advancement Anticipated Discharge Needs: unable to determine at this time Follow-Up By: 11/26/20 Additional Comments FU for plan of care
--- NOTE | 2020-11-26 09:51 | Progress Note ---
Subjective Date of service: 11/26/20 Principal diagnosis: Acute respiratory failure Interval history: Impression * Acute kidney injury * Severe hyperkalemia * Respiratory failure * Coronary artery disease * Hypertension * COPD * Bladder cancer * Hepatitis C Recommendations * Hyperkalemia has been corrected with aggressive medical management. * Renal function is worse today, cr noted, hold lasix and follow up. Patient is also currently nonoliguric * Na noted, better today, stop D5w, hold lasix, give prn only * hypokalemia noted, likely due to duresis, follow up am lytes * Albumin of 3.1, give albumin with lasix if needed * His urine shows 1+ dipstick protein and large blood. Fractional excretion of sodium is 0.4%. He most likely has a prerenal component. However given his microhematuria need to rule out vasculitis. Vasculitis work-up as ordered * Renal ultrasound shows atrophic left kidney. No obstruction. * Monitor fluid status and electrolytes closely * Avoid nephrotoxins Subjective Principal diagnosis: abnl trop Interval history: Patient has been extubated. Is currently on BiPAP with 40% FiO2. Oxygen saturation is 97%. IV fluid infusing. Objective - General Appearance General appearance: well-developed, well-nourished, appears stated age, other (Lethargic. Not answering questions or following commands) EENT: PERRL, mucous membranes moist Neck: no JVD, no thyromegaly Respiratory: Present: Ronchi (Few scattered rhonchi) Cardiology: regular, normal heart rate Gastrointestinal: normal, normoactive bowel sounds Integumentary: other (No edema) Objective - Vital Signs Vital signs: Vital Signs - 12hr 11/25/20 11/25/20 11/25/20 22:00 23:00 23:43 Temperature 98.9 F Pulse Rate 74 72 Pulse Rate [ Anterior Bilateral Throughout] Pulse Rate [ From Monitor] Respiratory 33 H 36 H Rate Respiratory Rate [Anterior Bilateral Throughout] Blood Pressure 162/78 162/78 O2 Sat by Pulse 96 96 Oximetry 11/26/20 11/26/20 11/26/20 00:00 00:07 01:00 Temperature Pulse Rate 67 69 69 Pulse Rate [ Anterior Bilateral Throughout] Pulse Rate [ 77 From Monitor] Respiratory 35 H 37 H 25 H Rate Respiratory Rate [Anterior Bilateral Throughout] Blood Pressure 178/80 178/80 171/82 O2 Sat by Pulse 97 97 100 Oximetry 07/07/21 07/07/21 07/07/21 02:00 02:43 03:00 Temperature Pulse Rate 63 70 Pulse Rate [ 75 Anterior Bilateral Throughout] Pulse Rate [ From Monitor] Respiratory 32 H 29 H Rate Respiratory 29 H Rate [Anterior Bilateral Throughout] Blood Pressure 130/66 180/85 O2 Sat by Pulse 100 97 Oximetry 11/26/20 11/26/20 11/26/20 04:00 05:00 06:00 Temperature 98.0 F Pulse Rate 116 H 74 65 Pulse Rate [ Anterior Bilateral Throughout] Pulse Rate [ 77 From Monitor] Respiratory 27 H 35 H 24 Rate Respiratory Rate [Anterior Bilateral Throughout] Blood Pressure 179/80 188/74 182/81 O2 Sat by Pulse 99 97 99 Oximetry 11/26/20 11/26/20 11/26/20 07:00 07:52 08:00 Temperature Pulse Rate 66 66 64 Pulse Rate [ Anterior Bilateral Throughout] Pulse Rate [ 61 From Monitor] Respiratory 24 25 H 29 H Rate Respiratory Rate [Anterior Bilateral Throughout] Blood Pressure 192/83 192/83 181/79 O2 Sat by Pulse 100 100 100 Oximetry 11/26/20 11/26/20 11/26/20 08:26 08:32 09:29 Temperature Pulse Rate 59 L Pulse Rate [ 78 Anterior Bilateral Throughout] Pulse Rate [ From Monitor] Respiratory Rate Respiratory 25 H Rate [Anterior Bilateral Throughout] Blood Pressure 181/79 O2 Sat by Pulse 97 Oximetry - Lab 11/26/20 06:22 11/26/20 06:22 Most recent lab results ABG pH 7.281 (7.320-7.450) L 11/24/20 01:48 ABG O2 Saturation 96.9 (0-100) 11/24/20 01:48 Calcium 8.6 mg/dL (8.4-10.2) 11/26/20 06:22 Phosphorus 3.10 mg/dL (2.5-4.5) 11/25/20 08:18 Magnesium 2.00 mg/dL (1.7-2.3) 11/26/20 06:22 Urine Creatinine 158.2 mg/dL (0.1-20.0) H 11/22/20 00:11 Urine Sodium 39 mmol/L 11/22/20 00:11 Medications & Allergies - Medications Allergies/Adverse Reactions: Allergies No Known Allergies Allergy (Verified 11/11/18 08:08) Home Medications: Home Medications Medication Instructions Recorded Confirmed Last Taken Type Pantoprazole [Protonix TAB] 40 mg PO QDAY #30 tablet 04/11/19 11/22/20 Unknown Rx AtorvaSTATin 20 mg PO QHS 06/13/19 11/22/20 06/12/19 21:00 History Tamsulosin 0.4 mg PO DAILY 06/13/19 11/22/20 06/12/19 21:00 History carvediloL [Coreg] 3.125 mg PO BID 06/13/19 11/22/20 06/11/19 21:00 History Gabapentin 300 mg PO BID 11/22/20 11/22/20 Unknown History Active Medications: Generic Name Dose Route Start Last Admin Trade Name Freq PRN Reason Stop Dose Admin Acetaminophen 650 mg 11/23/20 15:29 Acetaminophen 325 Mg Tab PO Q4H PRN Pain, Mild (1-3) Albuterol 2.5 mg 11/22/20 01:19 Albuterol 2.5 Mg/3 Ml Nebu IH Q4HRT PRN Shortness Of Breath Albuterol/Ipratropium 1 ampul 11/22/20 02:00 11/26/20 08:29 Ipratropium/Albuterol Sulfate 3 Ml Ampul.Neb IH 1 ampul Q6HRT TERESA Administration Lipase/Protease/Amylase 1 each 11/22/20 09:07 Lipase 10,500/Protease 25,000/Amylase 43,750 (Units) Dr Ger FARIA PRN PRN For Clogged Feeding Tube Aspirin 81 mg 11/23/20 10:00 11/26/20 09:08 Aspirin 81 Mg Tab Chew PO Not Given QDAY TERESA Atorvastatin Calcium 40 mg 11/22/20 22:00 11/25/20 22:43 Atorvastatin 40 Mg Tab PO Not Given QHS TERESA Budesonide 0.5 mg 11/24/20 14:55 11/26/20 08:29 Budesonide 0.5 Mg/2 Ml Nebu IH 0.5 mg Q12HRT TERESA Administration Furosemide 40 mg 11/25/20 13:00 11/26/20 09:08 Furosemide 40 Mg/4 Ml Inj IV Not Given QDAY TERESA Haloperidol Lactate 5 mg 11/25/20 09:00 11/25/20 08:10 Haloperidol Lactate 5 Mg/1 Ml Inj IV 5 mg Q6H PRN Administration Agitation Heparin Sodium (Porcine) 5,000 unit 11/22/20 06:00 11/26/20 08:13 Heparin 5,000 Unit/1 Ml Vial SUB-Q Not Given Q8HR TERESA Hydralazine HCl 10 mg 11/22/20 01:24 11/26/20 08:26 Hydralazine 20 Mg/1 Ml Inj IV 10 mg Q6H PRN Administration Blood Pressure Hydrophilic Ointment 1 applic 11/22/20 00:38 Lip Therapy Vaseline TP Q2HR PRN Dry Lips Dextrose 1,000 mls @ 75 mls/hr 11/24/20 15:00 11/25/20 10:34 D5w IV 75 mls/hr DIRECT TERESA Infusion Dexmedetomidine HCl 400 mcg/ 104 mls @ 4.228 mls/hr 11/25/20 10:00 11/26/20 08:26 Sodium Chloride IV 0.8 mcg/kg/hr TITRATE TERESA 16.91 mls/hr Administration Protocol 0.2 MCG/KG/HR Methylprednisolone Sodium Succinate 80 mg 11/24/20 22:00 11/26/20 08:13 Methylprednisolone Sod Succinate 125 Mg/2 Ml Inj IV Not Given Q8HR TERESA Metoprolol Tartrate 5 mg 11/25/20 12:00 11/26/20 08:12 Metoprolol Tartrate 5 Mg/5 Ml Inj IV Not Given Q6HR TERESA Multi-Ingred Cream/Lotion/Oil/Oint 1 applic 11/22/20 00:38 Mineral Oil/Petrolatum, White Ophth Oint 3.5 Gm OU Q4HR PRN Dry Eye(s) Nitroglycerin 0.4 mg 11/22/20 01:25 Nitroglycerin 0.4 Mg Tab Subl SL Q5M PRN Chest Pain Ondansetron HCl 4 mg 11/22/20 01:19 Ondansetron 4 Mg/2 Ml Inj IV Q8H PRN Nausea And Vomiting Pantoprazole Sodium 40 mg 11/25/20 10:00 11/25/20 11:10 Pantoprazole 40 Mg Inj IV 40 mg QDAY TERESA Administration Potassium Chloride 40 meq 11/26/20 10:00 Potassium Chloride 20 Meq Packet FEEDTUBE 11/26/20 10:01 ONCE ONE Senna/Docusate Sodium 1 tab 11/22/20 10:00 11/26/20 09:08 Sennosides/Docusate Sodium 8.6/50 Mg Tab FEEDTUBE Not Given BID TERESA Simple Syrup 15 ml 11/22/20 09:07 Simple Syrup 15 Ml FEEDTUBE PRN PRN Hypoglycemia Simple Syrup 30 ml 11/22/20 09:07 Simple Syrup 15 Ml FEEDTUBE PRN PRN Hypoglycemia Sodium Bicarbonate 325 mg 11/22/20 09:07 Sodium Bicarbonate 325 Mg Tab FEEDTUBE PRN PRN For Clogged Feeding Tube Sodium Chloride 10 ml 11/22/20 10:00 11/25/20 11:11 Sodium Chloride 0.9% 10 Ml Flush Syringe IV 10 ml BID TERESA Administration Sodium Chloride 10 ml 11/22/20 01:19 Sodium Chloride 0.9% 10 Ml Flush Syringe IV PRN PRN LINE FLUSH Tamsulosin HCl 0.4 mg 11/22/20 10:00 11/26/20 09:08 Tamsulosin 0.4 Mg Cap PO Not Given DAILY TERESA
[2020-11-26] MEDS ORDERED: POTASSIUM CHLORIDE 20 MEQ PACKET FEEDTUBE ONE (10:00)
[2020-11-26] MEDS: PANTOPRAZOLE 40 MG INJ IV SCH (10:34)
--- NOTE | 2020-11-26 11:33 | Progress Note ---
Assessment and Plan NSTEMI suspect type II with history of coronary artery disease post CABG * Troponins are mildly elevated, subacute and nonspecific. Trending downwards. Continue to trend CE's * Echocardiogram reviewed (11/22/2020): LVEF is 50 to 55%. LV is normal size. LV SF is normal. Mild diastolic dysfunction. RV SF is normal. Mild aortic stenosis: Highest mean AV gradient is 12.37 mmHg. Moderate mitral stenosis. Severe pulmonary hypertension RVSP 74 mmHg, mild TR. * Hx Mitral Valve Repair (2004). Consider HECTOR if further characterization of Mi tral Stenosis is requested. Pulm HTN * Per nephrology recommendations patient is clinically dry hold diuretics in setting of CARRIE. Nephrology will manage volume control. * Of note patient has not received p.o. or IV medications due to loss of IV access. No changes to antihypertensive regimen. Will follow. Pt seen in conjunction with Dr. Whitfield, who agrees with the assessment and plan of care. - Patient Problems (1) Acute metabolic encephalopathy Current Visit: Yes Status: Acute (2) Acute and chronic respiratory failure ([id number]) Current Visit: Yes Status: Acute Qualifiers: Respiratory failure complication: hypoxia Qualified Code(s): J96.21 - Acute and chronic respiratory failure with hypoxia (3) COPD (chronic obstructive pulmonary disease) Current Visit: Yes Status: Chronic (4) Pulmonary hypertension Current Visit: Yes Status: Chronic (5) Acute kidney injury Current Visit: Yes Status: Acute (6) Anemia Current Visit: Yes Status: Chronic (7) NSTEMI (non-ST elevated myocardial infarction) Current Visit: Yes Status: Acute Plan to address problem: Type 2 (8) CAD (coronary artery disease) Current Visit: Yes Status: Chronic Qualifiers: Coronary Disease-Associated Artery/Lesion type: platinum artery [place] vs. transplanted heart: platinum heart (9) History of coronary artery bypass graft Current Visit: Yes Status: Chronic (10) S/P mitral valve repair Current Visit: Yes Status: Chronic Plan to address problem: 2005 (11) Hypertension Current Visit: Yes Status: Chronic Qualifiers: Hypertension type: primary hypertension Qualified Code(s): I10 - Essential (primary) hypertension (12) Type 2 diabetes mellitus Current Visit: Yes Status: Chronic Qualifiers: Qualified Code(s): E11.9 - Type 2 diabetes mellitus without complications (13) Carotid stenosis Current Visit: Yes Status: Chronic Qualifiers: Laterality: right Qualified Code(s): I65.21 - Occlusion and stenosis of right carotid artery (14) S/P carotid endarterectomy Current Visit: Yes Status: Chronic (15) H/O: GI bleed Current Visit: Yes Status: Chronic Subjective Date of service: 11/26/20 Principal diagnosis: Acute respiratory failure Interval history: Patient currently altered mental status. Off CPAP on high flow NC Telemetry reviewed: Sinus rhythm 61 with frequent PACs. Episode of 3 beat V. tach overnight. Objective Last Vital Signs Temp 98.0 F 11/26/20 04:00 Pulse 60 11/26/20 11:00 Resp 26 H 11/26/20 11:00 BP 133/56 11/26/20 11:00 Pulse Ox 97 11/26/20 11:00 - Physical Examination General: Other (agitated, on BiPAP) HEENT: Positive: EOMI, Normocephaly Neck: Positive: neck supple, trachea midline. Negative: JVD/HJR Cardiac: Positive: Reg Rate and Rhythm, S1/S2 Lungs: Positive: Decreased Breath Sounds, Oxygen Neuro: Positive: Other (agitated, AMS) Abdomen: Positive: Soft Skin: Negative: Rash Extremities: Present: lower extr. pulses. Absent: edema - Labs and Meds Cardiac Enzymes 11/26/20 Range/Units 06:22 AST 18 (5-40) units/L CBC 11/26/20 Range/Units 06:22 WBC 12.3 H (4.5-11.0) K/mm3 RBC 3.52 L (3.65-5.03) M/mm3 Hgb 11.1 L (11.8-15.2) gm/dl Hct 33.6 L (35.5-45.6) % Plt Count 261 (140-440) K/mm3 Comprehensive Metabolic Panel 11/26/20 Range/Units 06:22 Sodium 137 D (137-145) mmol/L Potassium 3.3 L (3.6-5.0) mmol/L Chloride 95.8 L (98-107) mmol/L Carbon Dioxide 33 H (22-30) mmol/L BUN 35 H (9-20) mg/dL Creatinine 1.4 H (0.8-1.3) mg/dL Glucose 185 H (75-100) mg/dL Calcium 8.6 (8.4-10.2) mg/dL AST 18 (5-40) units/L ALT 22 (7-56) units/L Alkaline Phosphatase 55 (35-129) units/L Total Protein 6.2 L (6.3-8.2) g/dL Albumin 3.1 L (3.9-5) g/dL - Imaging and Cardiology EKG: report reviewed, image reviewed Nuclear stress test: report reviewed (05/2019 normal myocardial perfusion scan) Echo: report reviewed (Echocardiogram reviewed (11/22/2020): LVEF is 50 to 55%. LV is normal size. LV SF is normal. Mild diastolic dysfunction. RV SF is normal. Mild aortic stenosis: Highest mean AV gradient is 12.37 mmHg. Moderate mitral stenosis. Severe pulmonary hypertension RVSP 74 mmHg, mild TR.), other (05/2019 - normal LV function, mild mitral stenosis) - Telemetry EKG Rhythm: Sinus Rhythm - EKG Sinus rhythms and dysrhythmias: sinus rhythm Repolarization changes or abnormalities: nonspecific abnormality, ST segment, and/or T wave
[2020-11-26] MEDS: DEXTROSE 5% IN WATER 1,000 ML IV SCH (11:50)
[2020-11-26] MEDS ORDERED: POTASSIUM CHLORIDE 10 MEQ 10 MEQ/100 ML BAG IV ONE ×3 (12:00→14:00)
[2020-11-26] MEDS: POTASSIUM CHLORIDE 10 MEQ 10 MEQ/100 ML BAG IV SCH ×4 (12:56→17:25)
--- NOTE | 2020-11-26 14:49 | Progress Note ---
Assessment and Plan 85 y/o hungarian male admitted with acute hypoxic respiratory failure. 11/26/20: Wean BIpap to off and trial of HFNC. Continue precedex as tolerated but wean if mental status becomes to sedated. Stop diuretics given bump in Cr. Will continue to monitor 11/25/20: Continue bipap for right now. Added precedex and stopped ativan as this may be worsening agitation. Ok with haldol use. Continue daily diuretics to keep patient net negative. Continue ICU monitoring for now. Renal function is better. Guarded prognosis. 11/23/20: Wean sedation to off. If patient can tolerate being off sedation, will attempt PSV trial, otherwise, will likely have to just stop sedation and extubate, will have bipap ready for as needed purposes. Needs chemistry to assess renal function. Out put was good. 1. Repeat ABG later this afternoon and wean FIO2 according (>88%) 2. Stop sedation, need to assess mental state 3. Follow up renal function and urine output. 4. Guarded prognosis, this is likely acute on chronic respiratory failure. cct 31 minutes. Subjective Date of service: 11/26/20 Principal diagnosis: Acute respiratory failure Interval history: Remains on bipap, more calm with precedex. no family present Objective Vital Signs - 12hr 11/26/20 11/26/20 11/26/20 03:00 04:00 05:00 Temperature 98.0 F Pulse Rate 70 116 H 74 Pulse Rate [ Anterior Bilateral Throughout] Pulse Rate [ 77 From Monitor] Respiratory 29 H 27 H 35 H Rate Respiratory Rate [Anterior Bilateral Throughout] Blood Pressure 180/85 179/80 188/74 O2 Sat by Pulse 97 99 97 Oximetry 11/26/20 11/26/20 11/26/20 06:00 07:00 07:52 Temperature Pulse Rate 65 66 66 Pulse Rate [ Anterior Bilateral Throughout] Pulse Rate [ From Monitor] Respiratory 24 24 25 H Rate Respiratory Rate [Anterior Bilateral Throughout] Blood Pressure 182/81 192/83 192/83 O2 Sat by Pulse 99 100 100 Oximetry 11/26/20 11/26/20 11/26/20 08:00 08:26 08:32 Temperature Pulse Rate 64 59 L Pulse Rate [ 78 Anterior Bilateral Throughout] Pulse Rate [ 61 From Monitor] Respiratory 29 H Rate Respiratory 25 H Rate [Anterior Bilateral Throughout] Blood Pressure 181/79 181/79 O2 Sat by Pulse 100 Oximetry 11/26/20 11/26/20 11/26/20 09:00 09:29 10:00 Temperature Pulse Rate 65 60 Pulse Rate [ Anterior Bilateral Throughout] Pulse Rate [ From Monitor] Respiratory 27 H 26 H Rate Respiratory Rate [Anterior Bilateral Throughout] Blood Pressure 175/77 129/56 O2 Sat by Pulse 97 97 97 Oximetry 11/26/20 11/26/20 11/26/20 11:00 11:52 12:00 Temperature Pulse Rate 60 57 L 59 L Pulse Rate [ Anterior Bilateral Throughout] Pulse Rate [ 56 L From Monitor] Respiratory 26 H 22 Rate Respiratory Rate [Anterior Bilateral Throughout] Blood Pressure 133/56 133/56 130/55 O2 Sat by Pulse 97 98 Oximetry 11/26/20 11/26/20 11/26/20 13:00 14:00 14:43 Temperature Pulse Rate 59 L 56 L Pulse Rate [ 68 Anterior Bilateral Throughout] Pulse Rate [ From Monitor] Respiratory 25 H 25 H Rate Respiratory 23 Rate [Anterior Bilateral Throughout] Blood Pressure 128/62 128/55 O2 Sat by Pulse 98 97 Oximetry Constitutional: other (critically ill on BIPAP) Eyes: non-icteric ENT: other (orally intubated and sedated) Neck: supple, other (large in circumference) Effort: mildly labored Ascultation: Bilateral: diminished breath sounds, wheezes Percussion: Bilateral: not dull Cardiovascular: other (tachy, no mrg) Gastrointestinal: normoactive bowel sounds, soft, non-tender, non-distended Extremities: no cyanosis, no edema, pink and warm Neurologic: non-focal exam Psychiatric: other (anxious appearing) CBC and BMP: 11/26/20 06:22 11/27/20 08:03 ABG, PT/INR, D-dimer: ABG ABG pH 7.281 (7.320-7.450) L 11/24/20 01:48 POC ABG pCO2 58.4 mmHg (32.0-48.0) H 11/24/20 01:48 POC ABG pO2 98.1 mmHg (83-108) 11/24/20 01:48 POC ABG HCO3 26.9 11/24/20 01:48 ABG O2 Saturation 96.9 (0-100) 11/24/20 01:48 PT/INR, D-dimer PT 13.5 Sec. (12.2-14.9) 11/21/20 20:50 INR 0.98 (0.87-1.13) 11/21/20 20:50 Abnormal lab findings: Abnormal Labs 11/21/20 11/21/20 11/22/20 20:50 20:50 00:11 WBC RBC 3.48 L Hgb 11.1 L Hct 34.3 L MCV 99 H Lymph % (Auto) 6.8 L [place] % (Auto) Lymph # (Auto) 0.6 L [place] # (Auto) Seg Neutrophils % 85.5 H Seg Neuts % (Manual) Nucleated RBC % Seg Neutrophils # Seg Neutrophils # Man Lymphocytes # (Manual) ABG pH POC ABG pCO2 POC ABG pO2 ABG Hemoglobin ABG Sodium ABG Potassium ABG Glucose Carboxyhemoglobin Sodium 130 L Potassium 7.3 H* Chloride 91.1 L Carbon Dioxide BUN 40 H Creatinine 2.1 H Glucose 195 H POC Glucose Lactic Acid Calcium AST 91 H ALT 65 H CK-MB (CK-2) Rel Index 4.1 H Troponin T 0.045 H NT-Pro-B Natriuret Pep 6998 H Total Protein Albumin 3.7 L HDL Cholesterol 60 H Arterial Blood Glucose Arterial Blood Ionized Calcium Urine WBC (Auto) Urine Creatinine 158.2 H Hepatitis C Antibody 11/22/20 11/22/20 11/22/20 00:23 00:40 01:37 WBC 14.1 H RBC 3.53 L Hgb 11.0 L Hct 34.1 L MCV 97 H Lymph % (Auto) 12.3 L [place] % (Auto) 14.2 H Lymph # (Auto) [place] # (Auto) 2.0 H Seg Neutrophils % 72.3 H Seg Neuts % (Manual) Nucleated RBC % Seg Neutrophils # 10.2 H Seg Neutrophils # Man Lymphocytes # (Manual) ABG pH POC ABG pCO2 POC ABG pO2 ABG Hemoglobin ABG Sodium ABG Potassium ABG Glucose Carboxyhemoglobin Sodium Potassium 5.1 H D Chloride Carbon Dioxide BUN Creatinine Glucose POC Glucose Lactic Acid 2.10 H* Calcium AST ALT CK-MB (CK-2) Rel Index Troponin T NT-Pro-B Natriuret Pep Total Protein Albumin HDL Cholesterol Arterial Blood Glucose Arterial Blood Ionized Calcium Urine WBC (Auto) Urine Creatinine Hepatitis C Antibody 11/22/20 11/22/20 11/22/20 01:37 03:20 05:00 WBC RBC Hgb Hct MCV Lymph % (Auto) [place] % (Auto) Lymph # (Auto) [place] # (Auto) Seg Neutrophils % Seg Neuts % (Manual) Nucleated RBC % Seg Neutrophils # Seg Neutrophils # Man Lymphocytes # (Manual) ABG pH POC ABG pCO2 58.4 H POC ABG pO2 ABG Hemoglobin 11.1 L ABG Sodium 135.1 L ABG Potassium 5.0 H ABG Glucose Carboxyhemoglobin Sodium Potassium 5.1 H Chloride Carbon Dioxide 31 H BUN 40 H Creatinine 2.0 H Glucose 49 L POC Glucose Lactic Acid Calcium AST ALT CK-MB (CK-2) Rel Index Troponin T NT-Pro-B Natriuret Pep Total Protein Albumin HDL Cholesterol Arterial Blood Glucose Arterial Blood Ionized Calcium Urine WBC (Auto) 33.0 H Urine Creatinine Hepatitis C Antibody 11/22/20 11/22/20 11/22/20 05:00 05:00 05:00 WBC RBC Hgb Hct MCV Lymph % (Auto) [place] % (Auto) Lymph # (Auto) [place] # (Auto) Seg Neutrophils % Seg Neuts % (Manual) Nucleated RBC % Seg Neutrophils # Seg Neutrophils # Man Lymphocytes # (Manual) ABG pH POC ABG pCO2 POC ABG pO2 ABG Hemoglobin ABG Sodium ABG Potassium ABG Glucose Carboxyhemoglobin Sodium 136 L Potassium Chloride 97.8 L Carbon Dioxide BUN 41 H Creatinine 1.8 H 1.8 H Glucose POC Glucose Lactic Acid Calcium 8.2 L AST ALT CK-MB (CK-2) Rel Index Troponin T 0.065 H D NT-Pro-B Natriuret Pep Total Protein Albumin HDL Cholesterol Arterial Blood Glucose Arterial Blood Ionized Calcium Urine WBC (Auto) Urine Creatinine Hepatitis C Antibody 11/22/20 11/22/20 11/22/20 10:20 10:20 15:00 WBC RBC 3.16 L Hgb 10.2 L Hct 29.9 L MCV 95 H Lymph % (Auto) [place] % (Auto) Lymph # (Auto) [place] # (Auto) Seg Neutrophils % Seg Neuts % (Manual) Nucleated RBC % Seg Neutrophils # Seg Neutrophils # Man Lymphocytes # (Manual) ABG pH 7.501 H POC ABG pCO2 POC ABG pO2 ABG Hemoglobin 10.5 L ABG Sodium 134.9 L ABG Potassium ABG Glucose 115 H Carboxyhemoglobin 0.4 L Sodium Potassium Chloride Carbon Dioxide BUN Creatinine Glucose POC Glucose Lactic Acid Calcium AST ALT CK-MB (CK-2) Rel Index Troponin T 0.078 H NT-Pro-B Natriuret Pep Total Protein Albumin HDL Cholesterol Arterial Blood Glucose 115 H Arterial Blood Ionized Calcium 4.3 L Urine WBC (Auto) Urine Creatinine Hepatitis C Antibody 11/22/20 11/22/20 11/22/20 16:00 17:45 23:21 WBC RBC Hgb Hct MCV Lymph % (Auto) [place] % (Auto) Lymph # (Auto) [place] # (Auto) Seg Neutrophils % Seg Neuts % (Manual) Nucleated RBC % Seg Neutrophils # Seg Neutrophils # Man Lymphocytes # (Manual) ABG pH POC ABG pCO2 POC ABG pO2 ABG Hemoglobin ABG Sodium ABG Potassium ABG Glucose Carboxyhemoglobin Sodium Potassium Chloride Carbon Dioxide BUN Creatinine Glucose POC Glucose 107 H 115 H Lactic Acid Calcium AST ALT CK-MB (CK-2) Rel Index Troponin T NT-Pro-B Natriuret Pep Total Protein Albumin HDL Cholesterol Arterial Blood Glucose Arterial Blood Ionized Calcium Urine WBC (Auto) Urine Creatinine Hepatitis C Antibody Reactive A 11/23/20 11/23/20 11/23/20 03:03 05:33 10:00 WBC RBC 3.33 L Hgb 10.6 L Hct 32.2 L MCV 97 H Lymph % (Auto) [place] % (Auto) 15.0 H Lymph # (Auto) [place] # (Auto) 1.5 H Seg Neutrophils % Seg Neuts % (Manual) Nucleated RBC % Seg Neutrophils # Seg Neutrophils # Man Lymphocytes # (Manual) ABG pH POC ABG pCO2 POC ABG pO2 115.8 H ABG Hemoglobin 10.1 L ABG Sodium 135.8 L ABG Potassium ABG Glucose 98 H Carboxyhemoglobin 0.4 L Sodium Potassium Chloride Carbon Dioxide BUN Creatinine Glucose POC Glucose 106 H Lactic Acid Calcium AST ALT CK-MB (CK-2) Rel Index Troponin T NT-Pro-B Natriuret Pep Total Protein Albumin HDL Cholesterol Arterial Blood Glucose 98 H Arterial Blood Ionized Calcium 4.4 L Urine WBC (Auto) Urine Creatinine Hepatitis C Antibody 11/23/20 11/23/20 11/23/20 10:00 12:12 18:21 WBC RBC Hgb Hct MCV Lymph % (Auto) [place] % (Auto) Lymph # (Auto) [place] # (Auto) Seg Neutrophils % Seg Neuts % (Manual) Nucleated RBC % Seg Neutrophils # Seg Neutrophils # Man Lymphocytes # (Manual) ABG pH POC ABG pCO2 POC ABG pO2 ABG Hemoglobin ABG Sodium ABG Potassium ABG Glucose Carboxyhemoglobin Sodium Potassium Chloride Carbon Dioxide BUN 22 H Creatinine Glucose 101 H POC Glucose 119 H 106 H Lactic Acid Calcium 7.9 L AST ALT CK-MB (CK-2) Rel Index Troponin T NT-Pro-B Natriuret Pep Total Protein 5.5 L Albumin 2.8 L HDL Cholesterol Arterial Blood Glucose Arterial Blood Ionized Calcium Urine WBC (Auto) Urine Creatinine Hepatitis C Antibody 11/23/20 11/24/20 11/24/20 23:28 01:48 09:58 WBC RBC Hgb Hct MCV Lymph % (Auto) [place] % (Auto) Lymph # (Auto) [place] # (Auto) Seg Neutrophils % Seg Neuts % (Manual) Nucleated RBC % Seg Neutrophils # Seg Neutrophils # Man Lymphocytes # (Manual) ABG pH 7.281 L POC ABG pCO2 58.4 H POC ABG pO2 ABG Hemoglobin 11.8 L ABG Sodium ABG Potassium ABG Glucose 101 H Carboxyhemoglobin Sodium 148 H Potassium Chloride Carbon Dioxide 34 H D BUN Creatinine Glucose POC Glucose 108 H Lactic Acid Calcium AST ALT CK-MB (CK-2) Rel Index Troponin T NT-Pro-B Natriuret Pep Total Protein Albumin HDL Cholesterol Arterial Blood Glucose 101 H Arterial Blood Ionized Calcium Urine WBC (Auto) Urine Creatinine Hepatitis C Antibody 11/24/20 11/25/20 11/25/20 09:58 00:29 05:48 WBC RBC Hgb Hct MCV Lymph % (Auto) [place] % (Auto) Lymph # (Auto) [place] # (Auto) Seg Neutrophils % Seg Neuts % (Manual) Nucleated RBC % Seg Neutrophils # Seg Neutrophils # Man Lymphocytes # (Manual) ABG pH POC ABG pCO2 POC ABG pO2 ABG Hemoglobin ABG Sodium ABG Potassium ABG Glucose Carboxyhemoglobin Sodium Potassium Chloride Carbon Dioxide BUN Creatinine Glucose POC Glucose 111 H 148 H Lactic Acid 0.60 L Calcium AST ALT CK-MB (CK-2) Rel Index Troponin T NT-Pro-B Natriuret Pep Total Protein Albumin HDL Cholesterol Arterial Blood Glucose Arterial Blood Ionized Calcium Urine WBC (Auto) Urine Creatinine Hepatitis C Antibody 11/25/20 11/25/20 11/25/20 08:18 08:18 11:34 WBC 13.2 H RBC 3.56 L Hgb 10.9 L Hct 34.0 L MCV 96 H Lymph % (Auto) [place] % (Auto) Lymph # (Auto) [place] # (Auto) Seg Neutrophils % Seg Neuts % (Manual) 98.0 H Nucleated RBC % 1.0 H Seg Neutrophils # Seg Neutrophils # Man 12.9 H Lymphocytes # (Manual) 0.0 L ABG pH POC ABG pCO2 POC ABG pO2 ABG Hemoglobin ABG Sodium ABG Potassium ABG Glucose Carboxyhemoglobin Sodium 147 H Potassium Chloride Carbon Dioxide 32 H BUN 26 H Creatinine Glucose 151 H POC Glucose 144 H Lactic Acid Calcium AST ALT CK-MB (CK-2) Rel Index Troponin T NT-Pro-B Natriuret Pep Total Protein 6.0 L Albumin 3.7 L HDL Cholesterol Arterial Blood Glucose Arterial Blood Ionized Calcium Urine WBC (Auto) Urine Creatinine Hepatitis C Antibody 11/25/20 11/25/20 11/26/20 18:03 23:15 05:07 WBC RBC Hgb Hct MCV Lymph % (Auto) [place] % (Auto) Lymph # (Auto) [place] # (Auto) Seg Neutrophils % Seg Neuts % (Manual) Nucleated RBC % Seg Neutrophils # Seg Neutrophils # Man Lymphocytes # (Manual) ABG pH POC ABG pCO2 POC ABG pO2 ABG Hemoglobin ABG Sodium ABG Potassium ABG Glucose Carboxyhemoglobin Sodium Potassium Chloride Carbon Dioxide BUN Creatinine Glucose POC Glucose 147 H 158 H 184 H Lactic Acid Calcium AST ALT CK-MB (CK-2) Rel Index Troponin T NT-Pro-B Natriuret Pep Total Protein Albumin HDL Cholesterol Arterial Blood Glucose Arterial Blood Ionized Calcium Urine WBC (Auto) Urine Creatinine Hepatitis C Antibody 11/26/20 11/26/20 11/26/20 06:22 06:22 12:52 WBC 12.3 H RBC 3.52 L Hgb 11.1 L Hct 33.6 L MCV 95 H Lymph % (Auto) [place] % (Auto) Lymph # (Auto) [place] # (Auto) Seg Neutrophils % Seg Neuts % (Manual) Nucleated RBC % Seg Neutrophils # Seg Neutrophils # Man Lymphocytes # (Manual) ABG pH POC ABG pCO2 POC ABG pO2 ABG Hemoglobin ABG Sodium ABG Potassium ABG Glucose Carboxyhemoglobin Sodium Potassium 3.3 L Chloride 95.8 L Carbon Dioxide 33 H BUN 35 H Creatinine 1.4 H Glucose 185 H POC Glucose 170 H Lactic Acid Calcium AST ALT CK-MB (CK-2) Rel Index Troponin T 0.036 H D NT-Pro-B Natriuret Pep Total Protein 6.2 L Albumin 3.1 L HDL Cholesterol Arterial Blood Glucose Arterial Blood Ionized Calcium Urine WBC (Auto) Urine Creatinine Hepatitis C Antibody
--- NOTE | 2020-11-26 17:44 | Electrocardiograph Report ---
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
--- NOTE | 2020-11-26 17:47 | Electrocardiograph Report ---
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
[2020-11-26 20:14] LABS: Myeloperoxidase Antibody <1.0 AI (<1.0)
[2020-11-27] MEDS: METOPROLOL TARTRATE 5 MG/5 ML INJ IV SCH ×5 (00:22→23:56)
[2020-11-27] MEDS: IPRATROPIUM/ALBUTEROL SULFATE 3 ML AMPUL.NEB IH SCH ×4 (02:11→20:19)
[2020-11-27] MEDS: HEPARIN 5,000 UNIT/1 ML VIAL SUB-Q SCH ×3 (05:27→22:15)
[2020-11-27] MEDS: methylPREDNISolone Sod Succinate 125 MG/2 ML INJ IV SCH ×3 (05:27→22:15)
[2020-11-27] MEDS: DEXTROSE 5% IN WATER 1,000 ML IV SCH ×2 (05:28→05:41)
[2020-11-27] MEDS: HALOPERIDOL LACTATE 5 MG/1 ML INJ IV PRN (05:34)
[2020-11-27] MEDS: BUDESONIDE 0.5 MG/2 ML NEBU IH SCH ×2 (08:48→20:19)
[2020-11-27 09:25] LABS: Calcium 8.9 mg/dL (8.4-10.2)
[2020-11-27] MEDS: PANTOPRAZOLE 40 MG INJ IV SCH (09:47)
[2020-11-27] MEDS: SENNOSIDES/DOCUSATE SODIUM 8.6/50 MG TAB FEEDTUBE SCH ×2 (10:00→22:15)
[2020-11-27] MEDS: TAMSULOSIN 0.4 MG CAP PO SCH (10:00)
[2020-11-27] MEDS: ASPIRIN 81 MG TAB CHEW PO SCH (10:00)
--- NOTE | 2020-11-27 10:10 | Progress Note ---
Subjective Date of service: 11/27/20 Principal diagnosis: Acute respiratory failure Interval history: Impression * Acute kidney injury * Severe hyperkalemia * Respiratory failure * Coronary artery disease * Hypertension * COPD * Bladder cancer * Hepatitis C Recommendations * Hyperkalemia has been corrected with aggressive medical management. * Renal function is stable today, cr noted, hold lasix and follow up. Patient is also currently nonoliguric * Na noted, better today, stop D5w, hold lasix, give prn only * hypokalemia noted, likely due to duresis, follow up am lytes * Albumin of 3.1, give albumin with lasix if needed * His urine shows 1+ dipstick protein and large blood. Fractional excretion of sodium is 0.4%. He most likely has a prerenal component. However given his microhematuria need to rule out vasculitis. Vasculitis work-up as ordered * Renal ultrasound shows atrophic left kidney. No obstruction. * Monitor fluid status and electrolytes closely * Avoid nephrotoxins Subjective Principal diagnosis: abnl trop Interval history: Patient has been extubated. Is currently on BiPAP with 40% FiO2. Oxygen saturation is 97%. IV fluid infusing. Objective - General Appearance General appearance: well-developed, well-nourished, appears stated age, other (Lethargic. Not answering questions or following commands) EENT: PERRL, mucous membranes moist Neck: no JVD, no thyromegaly Respiratory: Present: Ronchi (Few scattered rhonchi) Cardiology: regular, normal heart rate Gastrointestinal: normal, normoactive bowel sounds Integumentary: other (No edema) Objective - Vital Signs Vital signs: Vital Signs - 12hr 11/26/20 11/26/20 11/27/20 23:00 23:39 00:00 Temperature 97.2 F L Pulse Rate 85 86 Pulse Rate [ Anterior Bilateral Throughout] Pulse Rate [ 86 From Monitor] Respiratory 15 22 Rate Respiratory Rate [Anterior Bilateral Throughout] Blood Pressure 120/66 131/72 O2 Sat by Pulse 98 97 Oximetry 11/27/20 11/27/20 11/27/20 00:22 01:00 02:00 Temperature Pulse Rate 84 66 84 Pulse Rate [ Anterior Bilateral Throughout] Pulse Rate [ From Monitor] Respiratory 33 H 22 Rate Respiratory Rate [Anterior Bilateral Throughout] Blood Pressure 131/72 117/57 129/70 O2 Sat by Pulse 99 99 Oximetry 11/27/20 11/27/20 11/27/20 02:12 02:27 03:00 Temperature Pulse Rate 113 H Pulse Rate [ 109 H Anterior Bilateral Throughout] Pulse Rate [ From Monitor] Respiratory 12 Rate Respiratory 20 Rate [Anterior Bilateral Throughout] Blood Pressure 129/70 O2 Sat by Pulse 97 Oximetry 11/27/20 11/27/20 11/27/20 03:35 04:00 05:00 Temperature 97.0 F L Pulse Rate 101 H 82 Pulse Rate [ Anterior Bilateral Throughout] Pulse Rate [ 101 H From Monitor] Respiratory 25 H 33 H Rate Respiratory Rate [Anterior Bilateral Throughout] Blood Pressure 154/76 130/65 O2 Sat by Pulse 96 Oximetry 11/27/20 11/27/20 11/27/20 05:28 06:00 07:51 Temperature Pulse Rate 90 84 Pulse Rate [ Anterior Bilateral Throughout] Pulse Rate [ From Monitor] Respiratory 17 Rate Respiratory Rate [Anterior Bilateral Throughout] Blood Pressure 130/65 164/84 O2 Sat by Pulse 94 97 Oximetry 11/27/20 11/27/20 08:00 09:17 Temperature 97.7 F Pulse Rate Pulse Rate [ 65 Anterior Bilateral Throughout] Pulse Rate [ From Monitor] Respiratory Rate Respiratory 20 Rate [Anterior Bilateral Throughout] Blood Pressure O2 Sat by Pulse Oximetry - Lab 11/26/20 06:22 11/27/20 08:03 Most recent lab results ABG pH 7.281 (7.320-7.450) L 11/24/20 01:48 ABG O2 Saturation 96.9 (0-100) 11/24/20 01:48 Calcium 8.9 mg/dL (8.4-10.2) 11/27/20 08:03 Phosphorus 2.20 mg/dL (2.5-4.5) L 11/27/20 08:03 Magnesium 2.10 mg/dL (1.7-2.3) 11/27/20 08:03 Urine Creatinine 158.2 mg/dL (0.1-20.0) H 11/22/20 00:11 Urine Sodium 39 mmol/L 11/22/20 00:11 Medications & Allergies - Medications Allergies/Adverse Reactions: Allergies No Known Allergies Allergy (Verified 11/11/18 08:08) Home Medications: Home Medications Medication Instructions Recorded Confirmed Last Taken Type Pantoprazole [Protonix TAB] 40 mg PO QDAY #30 tablet 04/11/19 11/22/20 Unknown Rx AtorvaSTATin 20 mg PO QHS 06/13/19 11/22/20 06/12/19 21:00 History Tamsulosin 0.4 mg PO DAILY 06/13/19 11/22/20 06/12/19 21:00 History carvediloL [Coreg] 3.125 mg PO BID 06/13/19 11/22/20 06/11/19 21:00 History Gabapentin 300 mg PO BID 11/22/20 11/22/20 Unknown History Active Medications: Generic Name Dose Route Start Last Admin Trade Name Freq PRN Reason Stop Dose Admin Acetaminophen 650 mg 11/23/20 15:29 Acetaminophen 325 Mg Tab PO Q4H PRN Pain, Mild (1-3) Albuterol 2.5 mg 11/22/20 01:19 Albuterol 2.5 Mg/3 Ml Nebu IH Q4HRT PRN Shortness Of Breath Albuterol/Ipratropium 1 ampul 11/22/20 02:00 11/27/20 08:48 Ipratropium/Albuterol Sulfate 3 Ml Ampul.Neb IH 1 ampul Q6HRT TERESA Administration Lipase/Protease/Amylase 1 each 11/22/20 09:07 Lipase 10,500/Protease 25,000/Amylase 43,750 (Units) Dr Ger SAHATUBE PRN PRN For Clogged Feeding Tube Aspirin 81 mg 11/23/20 10:00 11/26/20 09:08 Aspirin 81 Mg Tab Chew PO Not Given QDAY TERESA Atorvastatin Calcium 40 mg 11/22/20 22:00 11/26/20 21:25 Atorvastatin 40 Mg Tab PO Not Given QHS TERESA Budesonide 0.5 mg 11/24/20 14:55 11/27/20 08:48 Budesonide 0.5 Mg/2 Ml Nebu IH 0.5 mg Q12HRT TERESA Administration Haloperidol Lactate 5 mg 11/25/20 09:00 11/27/20 05:34 Haloperidol Lactate 5 Mg/1 Ml Inj IV 5 mg Q6H PRN Administration Agitation Heparin Sodium (Porcine) 5,000 unit 11/22/20 06:00 11/27/20 05:27 Heparin 5,000 Unit/1 Ml Vial SUB-Q 5,000 unit Q8HR TERESA Administration Hydralazine HCl 10 mg 11/22/20 01:24 11/26/20 08:26 Hydralazine 20 Mg/1 Ml Inj IV 10 mg Q6H PRN Administration Blood Pressure Hydrophilic Ointment 1 applic 11/22/20 00:38 Lip Therapy Vaseline TP Q2HR PRN Dry Lips Dextrose 1,000 mls @ 75 mls/hr 11/24/20 15:00 11/27/20 05:41 D5w IV 75 mls/hr DIRECT TERESA Administration Dexmedetomidine HCl 400 mcg/ 104 mls @ 4.228 mls/hr 11/25/20 10:00 11/27/20 06:54 Sodium Chloride IV 1.4 mcg/kg/hr TITRATE TERESA 29.593 mls/hr Administration Protocol 0.2 MCG/KG/HR Methylprednisolone Sodium Succinate 80 mg 11/24/20 22:00 11/27/20 05:27 Methylprednisolone Sod Succinate 125 Mg/2 Ml Inj IV 80 mg Q8HR TERESA Administration Metoprolol Tartrate 5 mg 11/25/20 12:00 11/27/20 05:28 Metoprolol Tartrate 5 Mg/5 Ml Inj IV 5 mg Q6HR TERESA Administration Multi-Ingred Cream/Lotion/Oil/Oint 1 applic 11/22/20 00:38 Mineral Oil/Petrolatum, White Ophth Oint 3.5 Gm OU Q4HR PRN Dry Eye(s) Nitroglycerin 0.4 mg 11/22/20 01:25 Nitroglycerin 0.4 Mg Tab Subl SL Q5M PRN Chest Pain Ondansetron HCl 4 mg 11/22/20 01:19 Ondansetron 4 Mg/2 Ml Inj IV Q8H PRN Nausea And Vomiting Pantoprazole Sodium 40 mg 11/25/20 10:00 11/27/20 09:47 Pantoprazole 40 Mg Inj IV 40 mg QDAY TERESA Administration Senna/Docusate Sodium 1 tab 11/22/20 10:00 11/26/20 21:25 Sennosides/Docusate Sodium 8.6/50 Mg Tab FEEDTUBE Not Given BID TERESA Simple Syrup 15 ml 11/22/20 09:07 Simple Syrup 15 Ml FEEDTUBE PRN PRN Hypoglycemia Simple Syrup 30 ml 11/22/20 09:07 Simple Syrup 15 Ml FEEDTUBE PRN PRN Hypoglycemia Sodium Bicarbonate 325 mg 11/22/20 09:07 Sodium Bicarbonate 325 Mg Tab FEEDTUBE PRN PRN For Clogged Feeding Tube Sodium Chloride 10 ml 11/22/20 10:00 11/27/20 09:47 Sodium Chloride 0.9% 10 Ml Flush Syringe IV 10 ml BID TERESA Administration Sodium Chloride 10 ml 11/22/20 01:19 Sodium Chloride 0.9% 10 Ml Flush Syringe IV PRN PRN LINE FLUSH Tamsulosin HCl 0.4 mg 11/22/20 10:00 11/26/20 09:08 Tamsulosin 0.4 Mg Cap PO Not Given DAILY TERESA
--- NOTE | 2020-11-27 10:45 | Electrocardiograph Report ---
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
--- NOTE | 2020-11-27 12:01 | Progress Note ---
Assessment and Plan Assessment and plan: --Hypokalemia; resolved Monitor electrolytes --Acute kidney injury; vasomotor nephropathy Gentle hydration closely monitor renal function --Acute hypoxic respiratory failure/Requiring intubation 11/21/2020 s/p extubation 11/23/2020, patient is on noninvasive ventilation today on high flow nasal cannula oxygen 20 L/40 Fio2/97% sat Wean as tolerated, --Acute exacerbation of COPD; Home oxygen dependent BiPAP as needed, wean as tolerated Pulmonary hygiene, pulmonary critical care following --Severe pulmonary hypertension; Management per pulmonary, continue supportive care --Acute metabolic encephalopathy -11/21 CT head shows no acute intracranial abnormality, sinus disease Continue supportive care --NSTEMI type II Presented with [facility] with elevated troponins cardiology patient had a stress test in 2019 which showed no significant ischemia, Echo; EF 50 to 55% severe pulmonary hypertension moderate mitral stenosis may benefit from HECTOR for evaluation of mitral valve when patient is stable and e xtubated --Acute kidney injury; present on admission Vasomotor nephropathy Now resolved, normal renal function Avoid nephrotoxins, nephrology following --History of bladder cancer; Indwelling Paulson in place, supportive care Continue Flomax --Urinary tract infection; Continue empiric antibiotics total 5 days Supportive care --Dyslipidemia; Continue statin and low-cholesterol diet --Hypertension; moderate control We will continue current antihypertensives And as needed hydralazine --Hypernatremia ; Patient was hyponatremia on admission ,probably overcorrection Free water via [place], nephrology following Monitor electrolytes --Severe protein calorie malnutrition ; Hypoalbuminemia ,nutrition supplements Nutrition consult and supportive care --DVT prophylaxis; Subcu heparin, SCDs --GI prophylaxis; Continue Prevacid --Full CODE STATUS; Bedside swallow screen, if normal start diet pured/mechanical soft advance as tolerated We will also request physical therapy We will closely monitor the patient and adjust the management as needed Consults and recommendations noted and appreciated Plan of care reviewed with the patient's nurse The high probability of a clinically significant, sudden or life threatening deterioration of the [resp, cardiac, nephrology, metabolic] system(s) required my full and direct attention, intervention and personal management. The aggregate critical care time was [34] minutes. This time is in addition to time spent performing reported procedures but includes the following: [x] Data Review and interpretation [x] Patient assessment and monitoring of vital signs [x] Documentation [x] Medication orders and management Brief history and daily hospital course: 85-year-old male patient with past medical history of COPD on home oxygen, G ERD, hypertension, asthma, hyperlipidemia, vasopressin, bladder cancer admitted for acute hypoxic respiratory failure, intubated on 11/21/2020 managed appropriately evaluated by pulmonary critical subsequently extubated on 11/23/2020, today patient is on high flow nasal cannula oxygen, pulmonary critica l, cardiology and nephrology following the patient 11/23: Patient was extubated, currently on BiPAP Mild distress, wean as tolerated 11/25/2020; patient is on BiPAP Mild distress, noncommunicative 11/26/2020; patient is on intermittent BiPAP Currently on high flow nasal cannula oxygen 11/27/2020; patient is more alert and awake Will get swallow screen, if normal start pured diet Transfer the patient to [facility] History Interval history: I have seen and examined the patient at the bedside Patient's chart and medications reviewed Patient is more alert and awake Responding appropriately with the family member at the bedside Vital signs noted Hospitalist Physical - Constitutional Vitals: Temp Pulse Resp BP Pulse Ox 97.7 F 60 15 167/82 96 11/27/20 08:00 11/27/20 10:00 11/27/20 10:00 11/27/20 10:11/27/20 10:00 General appearance: Present: well-nourished, obese, other (More alert and awake, slightly agitated) - EENT Eyes: Present: PERRL, EOM intact - Neck Neck: Present: supple, normal ROM - Respiratory Respiratory effort: normal Respiratory: bilateral: diminished, rhonchi, negative: rales, wheezing - Cardiovascular Rhythm: regular Heart Sounds: Present: S1 & S2 - Extremities Extremities: no ischemia Extremity abnormal: edema - Abdominal General gastrointestinal: soft, non-tender, non-distended, normal bowel sounds - Integumentary Integumentary: Present: clear, warm - Psychiatric Psychiatric: agitated, other (More alert and awake) - Neurologic Neurologic: moves all extremities HEART Score - HEART Score Troponin: Troponin T 0.022 ng/mL (0.00-0.029) 11/27/20 08:03 Results - Labs CBC & Chem 7: 11/26/20 06:22 11/27/20 08:03 Labs: Laboratory Last Values WBC 12.3 K/mm3 (4.5-11.0) H 11/26/20 06:22 RBC 3.52 M/mm3 (3.65-5.03) L 11/26/20 06:22 Hgb 11.1 gm/dl (11.8-15.2) L 11/26/20 06:22 Hct 33.6 % (35.5-45.6) L 11/26/20 06:22 MCV 95 fl (84-94) H 11/26/20 06:22 MCH 31 pg (28-32) 11/26/20 06:22 MCHC 33 % (32-34) 11/26/20 06:22 RDW 15.0 % (13.2-15.2) 11/26/20 06:22 Plt Count 261 K/mm3 (140-440) 11/26/20 06:22 Lymph % (Auto) 16.1 % (13.4-35.0) 11/23/20 10:00 [place] % (Auto) 15.0 % (0.0-7.3) H 11/23/20 10:00 Eos % (Auto) 1.0 % (0.0-4.3) 11/23/20 10:00 Baso % (Auto) 0.5 % (0.0-1.8) 11/23/20 10:00 Lymph # (Auto) 1.6 K/mm3 (1.2-5.4) 11/23/20 10:00 [place] # (Auto) 1.5 K/mm3 (0.0-0.8) H 11/23/20 10:00 Eos # (Auto) 0.1 K/mm3 (0.0-0.4) 11/23/20 10:00 Baso # (Auto) 0.1 K/mm3 (0.0-0.1) 11/23/20 10:00 Add Manual Diff Complete 11/25/20 08:18 Total Counted 100 11/25/20 08:18 Seg Neutrophils % Finishing Wire Sawyer 11/25/20 08:18 Seg Neuts % (Manual) 98.0 % (40.0-70.0) H 11/25/20 08:18 Monocytes % (Manual) 2.0 % (0.0-7.3) 11/25/20 08:18 Nucleated RBC % 1.0 % (0.0-0.9) H 11/25/20 08:18 Seg Neutrophils # 6.6 K/mm3 (1.8-7.7) 11/23/20 10:00 Seg Neutrophils # Man 12.9 K/mm3 (1.8-7.7) H 11/25/20 08:18 Band Neutrophils # 0.0 K/mm3 11/25/20 08:18 Lymphocytes # (Manual) 0.0 K/mm3 (1.2-5.4) L 11/25/20 08:18 Abs React Lymphs (Man) 0.0 K/mm3 11/25/20 08:18 Monocytes # (Manual) 0.3 K/mm3 (0.0-0.8) 11/25/20 08:18 Eosinophils # (Manual) 0.0 K/mm3 (0.0-0.4) 11/25/20 08:18 Basophils # (Manual) 0.0 K/mm3 (0.0-0.1) 11/25/20 08:18 Metamyelocytes # 0.0 K/mm3 11/25/20 08:18 Myelocytes # 0.0 K/mm3 11/25/20 08:18 Promyelocytes # 43.8 K/mm3 11/25/20 08:18 Blast Cells # 0.0 K/mm3 11/25/20 08:18 WBC Morphology Not Reportable 11/25/20 08:18 Hypersegmented Neuts Not Reportable 11/25/20 08:18 Hyposegmented Neuts Not Reportable 11/25/20 08:18 Hypogranular Neuts Not Reportable 11/25/20 08:18 Smudge Cells Not Reportable 11/25/20 08:18 Toxic Granulation Few 11/25/20 08:18 Toxic Vacuolation Not Reportable 11/25/20 08:18 Dohle Bodies Not Reportable 11/25/20 08:18 Pelger-Huet Anomaly Not Reportable 11/25/20 08:18 Liang Rods Not Reportable 11/25/20 08:18 Platelet Estimate Consistent w auto 11/25/20 08:18 Clumped Platelets Not Reportable 11/25/20 08:18 Plt Clumps, EDTA Not Reportable 11/25/20 08:18 Large Platelets Not Reportable 11/25/20 08:18 Giant Platelets Not Reportable 11/25/20 08:18 Platelet Satelliting Not Reportable 11/25/20 08:18 Plt Morphology Comment Not Reportable 11/25/20 08:18 RBC Morphology Not Reportable 11/25/20 08:18 Dimorphic RBCs Not Reportable 11/25/20 08:18 Polychromasia Not Reportable 11/25/20 08:18 Hypochromasia 1+ 11/25/20 08:18 Poikilocytosis Not Reportable 11/25/20 08:18 Anisocytosis Not Reportable 11/25/20 08:18 Microcytosis Not Reportable 11/25/20 08:18 Macrocytosis Not Reportable 11/25/20 08:18 Spherocytes Not Reportable 11/25/20 08:18 Pappenheimer Bodies Not Reportable 11/25/20 08:18 Sickle Cells Not Reportable 11/25/20 08:18 Target Cells 1+ 11/25/20 08:18 Tear Drop Cells Not Reportable 11/25/20 08:18 Ovalocytes Not Reportable 11/25/20 08:18 Helmet Cells Not Reportable 11/25/20 08:18 Miranda-Haines Bodies Not Reportable 11/25/20 08:18 [place] Rings Not Reportable 11/25/20 08:18 Deep Cells Not Reportable 11/25/20 08:18 Bite Cells Not Reportable 11/25/20 08:18 Crenated Cell Not Reportable 11/25/20 08:18 Elliptocytes Not Reportable 11/25/20 08:18 Acanthocytes (Spur) Not Reportable 11/25/20 08:18 Rouleaux Not Reportable 11/25/20 08:18 Hemoglobin C Crystals Not Reportable 11/25/20 08:18 Schistocytes Not Reportable 11/25/20 08:18 Malaria parasites Not Reportable 11/25/20 08:18 Fuad Bodies Not Reportable 11/25/20 08:18 Hem Pathologist Commnt No 11/25/20 08:18 PT 13.5 Sec. (12.2-14.9) 11/21/20 20:50 INR 0.98 (0.87-1.13) 11/21/20 20:50 APTT 32.1 Sec. (24.2-36.6) 11/21/20 20:50 ABG pH 7.281 (7.320-7.450) L 11/24/20 01:48 POC ABG pCO2 58.4 mmHg (32.0-48.0) H 11/24/20 01:48 POC ABG pO2 98.1 mmHg (83-108) 11/24/20 01:48 POC ABG HCO3 26.9 11/24/20 01:48 ABG O2 Saturation 96.9 (0-100) 11/24/20 01:48 POC ABG Base Excess -0.7 11/24/20 01:48 ABG Hemoglobin 11.8 (12.0-17.5) L 11/24/20 01:48 ABG Oxyhemoglobin 95.9 (94-98) 11/24/20 01:48 ABG Methemoglobin 0.3 (0.0-1.5) 11/24/20 01:48 ABG Sodium 140.6 mmol/L (136.0-145.0) 11/24/20 01:48 ABG Potassium 3.9 mmol/L (3.40-4.50) 11/24/20 01:48 ABG Chloride 104.0 mmol/L (98-107) 11/24/20 01:48 ABG Glucose 101 mg/dL (65-95) H 11/24/20 01:48 Carboxyhemoglobin 0.7 (0.5-1.5) 11/24/20 01:48 FiO2 % 50.0 11/24/20 01:48 Sodium 139 mmol/L (137-145) 11/27/20 08:03 Potassium 4.0 mmol/L (3.6-5.0) D 11/27/20 08:03 Chloride 97.0 mmol/L (98-107) L 11/27/20 08:03 Carbon Dioxide 31 mmol/L (22-30) H 11/27/20 08:03 Anion Gap 15 mmol/L 11/27/20 08:03 BUN 41 mg/dL (9-20) H 11/27/20 08:03 Creatinine 1.4 mg/dL (0.8-1.3) H 11/27/20 08:03 Estimated GFR 48 ml/min 11/27/20 08:03 BUN/Creatinine Ratio 29 % 11/27/20 08:03 Glucose 145 mg/dL (75-100) H 11/27/20 08:03 POC Glucose 135 mg/dL (70-105) H 11/27/20 05:35 Lactic Acid 0.60 mmol/L (0.7-2.0) L 11/24/20 09:58 Calcium 8.9 mg/dL (8.4-10.2) 11/27/20 08:03 Phosphorus 2.20 mg/dL (2.5-4.5) L 11/27/20 08:03 Magnesium 2.10 mg/dL (1.7-2.3) 11/27/20 08:03 Total Bilirubin 0.30 mg/dL (0.1-1.2) 11/26/20 06:22 AST 18 units/L (5-40) 11/26/20 06:22 ALT 22 units/L (7-56) 11/26/20 06:22 Alkaline Phosphatase 55 units/L (35-129) 11/26/20 06:22 Total Creatine Kinase 132 units/L (55-170) 11/22/20 10:20 CK-MB (CK-2) 3.3 ng/mL (0.0-4.0) 11/22/20 10:20 CK-MB (CK-2) Rel Index 2.5 (0-4) 11/22/20 10:20 Troponin T 0.022 ng/mL (0.00-0.029) 11/27/20 08:03 NT-Pro-B Natriuret Pep 6998 pg/mL (0-900) H 11/21/20 20:50 Total Protein 6.2 g/dL (6.3-8.2) L 11/26/20 06:22 Albumin 3.1 g/dL (3.9-5) L 11/26/20 06:22 Albumin/Globulin Ratio 1.0 % 11/26/20 06:22 Triglycerides 84 mg/dL (2-149) 11/21/20 20:50 Cholesterol 125 mg/dL (50-199) 11/21/20 20:50 LDL Cholesterol Direct 57 mg/dL (50-130) 11/21/20 20:50 HDL Cholesterol 60 mg/dL (40-59) H 11/21/20 20:50 Cholesterol/HDL Ratio 2.08 % 11/21/20 20:50 TSH 1.290 mlU/mL (0.270-4.200) 11/21/20 20:50 Free T4 1.18 ng/dL (0.76-1.46) 11/21/20 20:50 Arterial Blood Glucose 101 mg/dL (65-95) H 11/24/20 01:48 Arterial Blood Ionized Calcium 4.7 mg/dL (4.6-5.3) 11/24/20 01:48 Urine Color Yellow (Yellow) 11/22/20 05:00 Urine Turbidity Slightly-cloudy (Clear) 11/22/20 05:00 Urine pH 5.0 (5.0-7.0) 11/22/20 05:00 Ur Specific [place] 1.016 (1.003-1.030) 11/22/20 05:00 Urine Protein 30 mg/dl mg/dL (Negative) 11/22/20 05:00 Urine Glucose (UA) Neg mg/dL (Negative) 11/22/20 05:00 Urine Ketones Neg mg/dL (Negative) 11/22/20 05:00 Urine Blood Lg (Negative) 11/22/20 05:00 Urine Nitrite Neg (Negative) 11/22/20 05:00 Urine Bilirubin Neg (Negative) 11/22/20 05:00 Urine Urobilinogen < 2.0 mg/dL (<2.0) 11/22/20 05:00 Ur Leukocyte Esterase Tr (Negative) 11/22/20 05:00 Urine WBC (Auto) 33.0 /HPF (0.0-6.0) H 11/22/20 05:00 Urine RBC (Auto) 49.0 /HPF (0.0-6.0) 11/22/20 05:00 U Epithel Cells (Auto) 1.0 /HPF (0-13.0) 11/22/20 05:00 Hyaline Casts 4 /LPF 11/22/20 05:00 Urine Mucus 1+ /HPF 11/22/20 05:00 Urine Eosinophils None seen (None Seen) 11/24/20 17:55 Urine Creatinine 158.2 mg/dL (0.1-20.0) H 11/22/20 00:11 Urine Sodium 39 mmol/L 11/22/20 00:11 Fraction Sodium Excret 0.3 11/22/20 00:11 Urine Opiates Screen Presumptive negative 11/22/20 00:11 Urine Methadone Screen Presumptive negative 11/22/20 00:11 Ur Barbiturates Screen Presumptive negative 11/22/20 00:11 Ur Phencyclidine Scrn Presumptive negative 11/22/20 00:11 Ur Amphetamines Screen Presumptive negative 11/22/20 00:11 U Benzodiazepines Scrn Presumptive negative 11/22/20 00:11 Urine Cocaine Screen Presumptive negative 11/22/20 00:11 U Marijuana (THC) Screen Presumptive negative 11/22/20 00:11 Drugs of Abuse Note Disclamer 11/22/20 00:11 Plasma/Serum Alcohol < 0.01 % (0-0.07) 11/21/20 20:50 Proteinase 3 (PR3) Ab <1.0 AI (<1.0) 11/22/20 16:00 Myeloperoxidase Ab <1.0 AI (<1.0) 11/22/20 16:00 Double Strand DNA Ab 1 IU/mL (<=4) 11/22/20 16:00 Complement C3 93 mg/dL () 11/22/20 16:00 Complement C4 25 mg/dL () 11/22/20 16:00 Coronavirus (PCR) Negative (Negative) 11/23/20 09:30 Hepatitis A IgM Ab Non-reactive (NonReactive) 11/22/20 16:00 Hep Bs Antigen Non-reactive (Negative) 11/22/20 16:00 Hep B Core IgM Ab Non-reactive (NonReactive) 11/22/20 16:00 Hepatitis C Antibody Reactive (NonReactive) A 11/22/20 16:00 Microbiology: Microbiology 11/22/20 00:40 Peripheral/Venous Blood Culture - Final NO GROWTH AFTER 5 DAYS 11/22/20 00:40 Peripheral/Venous Blood Culture - Final NO GROWTH AFTER 5 DAYS Paulson/IV: Voiding Method Indwelling Catheter Active Medications - Current Medications Current Medications: Generic Name Dose Route Start Last Admin Trade Name Freq PRN Reason Stop Dose Admin Acetaminophen 650 mg 11/23/20 15:29 Acetaminophen 325 Mg Tab PO Q4H PRN Pain, Mild (1-3) Albuterol 2.5 mg 11/22/20 01:19 Albuterol 2.5 Mg/3 Ml Nebu IH Q4HRT PRN Shortness Of Breath Albuterol/Ipratropium 1 ampul 11/22/20 02:00 11/27/20 08:48 Ipratropium/Albuterol Sulfate 3 Ml Ampul.Neb IH 1 ampul Q6HRT TERESA Administration Lipase/Protease/Amylase 1 each 11/22/20 09:07 Lipase 10,500/Protease 25,000/Amylase 43,750 (Units) Dr Cyr FEEDTUBE PRN PRN For Clogged Feeding Tube Aspirin 81 mg 11/23/20 10:00 11/26/20 09:08 Aspirin 81 Mg Tab Chew PO Not Given QDAY TERESA Atorvastatin Calcium 40 mg 11/22/20 22:00 11/26/20 21:25 Atorvastatin 40 Mg Tab PO Not Given QHS TERESA Budesonide 0.5 mg 11/24/20 14:55 11/27/20 08:48 Budesonide 0.5 Mg/2 Ml Nebu IH 0.5 mg Q12HRT TERESA Administration Haloperidol Lactate 5 mg 11/25/20 09:00 11/27/20 05:34 Haloperidol Lactate 5 Mg/1 Ml Inj IV 5 mg Q6H PRN Administration Agitation Heparin Sodium (Porcine) 5,000 unit 11/22/20 06:00 11/27/20 05:27 Heparin 5,000 Unit/1 Ml Vial SUB-Q 5,000 unit Q8HR TERESA Administration Hydralazine HCl 10 mg 11/22/20 01:24 11/26/20 08:26 Hydralazine 20 Mg/1 Ml Inj IV 10 mg Q6H PRN Administration Blood Pressure Hydrophilic Ointment 1 applic 11/22/20 00:38 Lip Therapy Vaseline TP Q2HR PRN Dry Lips Dextrose 1,000 mls @ 75 mls/hr 11/24/20 15:00 11/27/20 05:41 D5w IV 75 mls/hr DIRECT TERESA Administration Dexmedetomidine HCl 400 mcg/ 104 mls @ 4.228 mls/hr 11/25/20 10:00 11/27/20 06:54 Sodium Chloride IV 1.4 mcg/kg/hr TITRATE TERESA 29.593 mls/hr Administration Protocol 0.2 MCG/KG/HR Methylprednisolone Sodium Succinate 80 mg 11/24/20 22:00 11/27/20 05:27 Methylprednisolone Sod Succinate 125 Mg/2 Ml Inj IV 80 mg Q8HR TERESA Administration Metoprolol Tartrate 5 mg 11/25/20 12:00 11/27/20 05:28 Metoprolol Tartrate 5 Mg/5 Ml Inj IV 5 mg Q6HR TERESA Administration Multi-Ingred Cream/Lotion/Oil/Oint 1 applic 11/22/20 00:38 Mineral Oil/Petrolatum, White Ophth Oint 3.5 Gm OU Q4HR PRN Dry Eye(s) Nitroglycerin 0.4 mg 11/22/20 01:25 Nitroglycerin 0.4 Mg Tab Subl SL Q5M PRN Chest Pain Ondansetron HCl 4 mg 11/22/20 01:19 Ondansetron 4 Mg/2 Ml Inj IV Q8H PRN Nausea And Vomiting Pantoprazole Sodium 40 mg 11/25/20 10:00 11/27/20 09:47 Pantoprazole 40 Mg Inj IV 40 mg QDAY TERESA Administration Senna/Docusate Sodium 1 tab 11/22/20 10:00 11/26/20 21:25 Sennosides/Docusate Sodium 8.6/50 Mg Tab FEEDTUBE Not Given BID TERESA Simple Syrup 15 ml 11/22/20 09:07 Simple Syrup 15 Ml FEEDTUBE PRN PRN Hypoglycemia Simple Syrup 30 ml 11/22/20 09:07 Simple Syrup 15 Ml FEEDTUBE PRN PRN Hypoglycemia Sodium Bicarbonate 325 mg 11/22/20 09:07 Sodium Bicarbonate 325 Mg Tab FEEDTUBE PRN PRN For Clogged Feeding Tube Sodium Chloride 10 ml 11/22/20 10:00 11/27/20 09:47 Sodium Chloride 0.9% 10 Ml Flush Syringe IV 10 ml BID TERESA Administration Sodium Chloride 10 ml 11/22/20 01:19 Sodium Chloride 0.9% 10 Ml Flush Syringe IV PRN PRN LINE FLUSH Tamsulosin HCl 0.4 mg 11/22/20 10:00 11/26/20 09:08 Tamsulosin 0.4 Mg Cap PO Not Given DAILY TERESA Nutrition/Malnutrition Assess - Dietary Evaluation Nutrition/Malnutrition Findings: Nutrition Notes Start: 11/22/20 08:53 Freq: Status: Active Protocol: Document 11/26/20 10:11 IGOR (Rec: 11/26/20 10:13 IGOR [id number]) Nutrition Notes Initial or Follow up Brief Note Current Diagnosis Acute Kidney Injury,COPD, Coronary Artery Disease, Diabetes,Hypertension,Heart Failure,Respiratory Failure, Hyperlipidemia Other Pertinent Diagnosis AMS Current Diet NPO [place] Body Weight (kg) 0 Weight Status Obese Subjective/Other Information Pt continues on bipap and unable to consume PO. Nutrition Intervention Change Diet Order: Diet advancement when able Follow-Up By: 11/28/20 Additional Comments F/U for plan of care
--- NOTE | 2020-11-27 13:05 | Progress Note ---
Assessment and Plan 85 y/o senegalese male admitted with acute hypoxic respiratory failure. 11/27/20: Will transfer to step down today. Agree with bedside swallow eval now that patient is more awake. Will try bID seroquel to help with mood and agitation. Hopeful Cr has stablized. Continue steroids at 40q8. Consider LTACH evaluation 11/26/20: 11/25/20: Continue bipap for right now. Added precedex and stopped ativan as this may be worsening agitation. Ok with haldol use. Continue daily diuretics to keep patient net negative. Continue ICU monitoring for now. Renal function is better. Guarded prognosis. 11/23/20: Wean sedation to off. If patient can tolerate being off sedation, will attempt PSV trial, otherwise, will likely have to just stop sedation and extubate, will have bipap ready for as needed purposes. Needs chemistry to assess renal function. Out put was good. 1. Repeat ABG later this afternoon and wean FIO2 according (>88%) 2. Stop sedation, need to assess mental state 3. Follow up renal function and urine output. 4. Guarded prognosis, this is likely acute on chronic respiratory failure. cct 31 minutes. Subjective Date of service: 11/27/20 Principal diagnosis: Acute respiratory failure Interval history: Remains on HFNC, mentally more awake and alert. Per nephew at bedside has many complaints. Objective Vital Signs - 12hr 11/27/20 11/27/20 11/27/20 02:00 02:12 02:27 Temperature Pulse Rate 84 Pulse Rate [ 109 H Anterior Bilateral Throughout] Pulse Rate [ From Monitor] Respiratory 22 Rate Respiratory 20 Rate [Anterior Bilateral Throughout] Blood Pressure 129/70 O2 Sat by Pulse 99 97 Oximetry 11/27/20 11/27/20 11/27/20 03:00 03:35 04:00 Temperature 97.0 F L Pulse Rate 113 H 101 H Pulse Rate [ Anterior Bilateral Throughout] Pulse Rate [ 101 H From Monitor] Respiratory 12 25 H Rate Respiratory Rate [Anterior Bilateral Throughout] Blood Pressure 129/70 154/76 O2 Sat by Pulse 96 Oximetry 11/27/20 11/27/20 11/27/20 05:00 05:28 06:00 Temperature Pulse Rate 82 90 84 Pulse Rate [ Anterior Bilateral Throughout] Pulse Rate [ From Monitor] Respiratory 33 H 17 Rate Respiratory Rate [Anterior Bilateral Throughout] Blood Pressure 130/65 130/65 164/84 O2 Sat by Pulse 94 Oximetry 11/27/20 11/27/20 11/27/20 07:00 07:51 08:00 Temperature 97.7 F Pulse Rate 77 68 Pulse Rate [ Anterior Bilateral Throughout] Pulse Rate [ 88 From Monitor] Respiratory 28 H 21 Rate Respiratory Rate [Anterior Bilateral Throughout] Blood Pressure 170/92 182/89 O2 Sat by Pulse 97 97 98 Oximetry 11/27/20 11/27/20 11/27/20 09:00 09:17 10:00 Temperature Pulse Rate 65 60 Pulse Rate [ 65 Anterior Bilateral Throughout] Pulse Rate [ From Monitor] Respiratory 19 15 Rate Respiratory 20 Rate [Anterior Bilateral Throughout] Blood Pressure 188/84 167/82 O2 Sat by Pulse 98 96 Oximetry 11/27/20 12:00 Temperature 97.9 F Pulse Rate Pulse Rate [ Anterior Bilateral Throughout] Pulse Rate [ From Monitor] Respiratory Rate Respiratory Rate [Anterior Bilateral Throughout] Blood Pressure O2 Sat by Pulse Oximetry Constitutional: other (critically ill on BIPAP) Eyes: non-icteric ENT: other (orally intubated and sedated) Neck: supple, other (large in circumference) Effort: mildly labored Ascultation: Bilateral: diminished breath sounds, wheezes Percussion: Bilateral: not dull Cardiovascular: other (tachy, no mrg) Gastrointestinal: normoactive bowel sounds, soft, non-tender, non-distended Extremities: no cyanosis, no edema, pink and warm Neurologic: non-focal exam Psychiatric: other (anxious appearing) CBC and BMP: 11/26/20 06:22 11/27/20 08:03 ABG, PT/INR, D-dimer: ABG ABG pH 7.281 (7.320-7.450) L 11/24/20 01:48 POC ABG pCO2 58.4 mmHg (32.0-48.0) H 11/24/20 01:48 POC ABG pO2 98.1 mmHg (83-108) 11/24/20 01:48 POC ABG HCO3 26.9 11/24/20 01:48 ABG O2 Saturation 96.9 (0-100) 11/24/20 01:48 PT/INR, D-dimer PT 13.5 Sec. (12.2-14.9) 11/21/20 20:50 INR 0.98 (0.87-1.13) 11/21/20 20:50 Abnormal lab findings: Abnormal Labs 11/21/20 11/21/20 11/22/20 20:50 20:50 00:11 WBC RBC 3.48 L Hgb 11.1 L Hct 34.3 L MCV 99 H Lymph % (Auto) 6.8 L Town[place] % (Auto) Lymph # (Auto) 0.6 L [place] # (Auto) Seg Neutrophils % 85.5 H Seg Neuts % (Manual) Nucleated RBC % Seg Neutrophils # Seg Neutrophils # Man Lymphocytes # (Manual) ABG pH POC ABG pCO2 POC ABG pO2 ABG Hemoglobin ABG Sodium ABG Potassium ABG Glucose Carboxyhemoglobin Sodium 130 L Potassium 7.3 H* Chloride 91.1 L Carbon Dioxide BUN 40 H Creatinine 2.1 H Glucose 195 H POC Glucose Lactic Acid Calcium Phosphorus AST 91 H ALT 65 H CK-MB (CK-2) Rel Index 4.1 H Troponin T 0.045 H NT-Pro-B Natriuret Pep 6998 H Total Protein Albumin 3.7 L HDL Cholesterol 60 H Arterial Blood Glucose Arterial Blood Ionized Calcium Urine WBC (Auto) Urine Creatinine 158.2 H Hepatitis C Antibody 11/22/20 11/22/20 11/22/20 00:23 00:40 01:37 WBC 14.1 H RBC 3.53 L Hgb 11.0 L Hct 34.1 L MCV 97 H Lymph % (Auto) 12.3 L [place] % (Auto) 14.2 H Lymph # (Auto) [place] # (Auto) 2.0 H Seg Neutrophils % 72.3 H Seg Neuts % (Manual) Nucleated RBC % Seg Neutrophils # 10.2 H Seg Neutrophils # Man Lymphocytes # (Manual) ABG pH POC ABG pCO2 POC ABG pO2 ABG Hemoglobin ABG Sodium ABG Potassium ABG Glucose Carboxyhemoglobin Sodium Potassium 5.1 H D Chloride Carbon Dioxide BUN Creatinine Glucose POC Glucose Lactic Acid 2.10 H* Calcium Phosphorus AST ALT CK-MB (CK-2) Rel Index Troponin T NT-Pro-B Natriuret Pep Total Protein Albumin HDL Cholesterol Arterial Blood Glucose Arterial Blood Ionized Calcium Urine WBC (Auto) Urine Creatinine Hepatitis C Antibody 11/22/20 11/22/20 11/22/20 01:37 03:20 05:00 WBC RBC Hgb Hct MCV Lymph % (Auto) [place] % (Auto) Lymph # (Auto) [place] # (Auto) Seg Neutrophils % Seg Neuts % (Manual) Nucleated RBC % Seg Neutrophils # Seg Neutrophils # Man Lymphocytes # (Manual) ABG pH POC ABG pCO2 58.4 H POC ABG pO2 ABG Hemoglobin 11.1 L ABG Sodium 135.1 L ABG Potassium 5.0 H ABG Glucose Carboxyhemoglobin Sodium Potassium 5.1 H Chloride Carbon Dioxide 31 H BUN 40 H Creatinine 2.0 H Glucose 49 L POC Glucose Lactic Acid Calcium Phosphorus AST ALT CK-MB (CK-2) Rel Index Troponin T NT-Pro-B Natriuret Pep Total Protein Albumin HDL Cholesterol Arterial Blood Glucose Arterial Blood Ionized Calcium Urine WBC (Auto) 33.0 H Urine Creatinine Hepatitis C Antibody 11/22/20 11/22/20 11/22/20 05:00 05:00 05:00 WBC RBC Hgb Hct MCV Lymph % (Auto) [place] % (Auto) Lymph # (Auto) [place] # (Auto) Seg Neutrophils % Seg Neuts % (Manual) Nucleated RBC % Seg Neutrophils # Seg Neutrophils # Man Lymphocytes # (Manual) ABG pH POC ABG pCO2 POC ABG pO2 ABG Hemoglobin ABG Sodium ABG Potassium ABG Glucose Carboxyhemoglobin Sodium 136 L Potassium Chloride 97.8 L Carbon Dioxide BUN 41 H Creatinine 1.8 H 1.8 H Glucose POC Glucose Lactic Acid Calcium 8.2 L Phosphorus AST ALT CK-MB (CK-2) Rel Index Troponin T 0.065 H D NT-Pro-B Natriuret Pep Total Protein Albumin HDL Cholesterol Arterial Blood Glucose Arterial Blood Ionized Calcium Urine WBC (Auto) Urine Creatinine Hepatitis C Antibody 11/22/20 11/22/20 11/22/20 10:20 10:20 15:00 WBC RBC 3.16 L Hgb 10.2 L Hct 29.9 L MCV 95 H Lymph % (Auto) [place] % (Auto) Lymph # (Auto) [place] # (Auto) Seg Neutrophils % Seg Neuts % (Manual) Nucleated RBC % Seg Neutrophils # Seg Neutrophils # Man Lymphocytes # (Manual) ABG pH 7.501 H POC ABG pCO2 POC ABG pO2 ABG Hemoglobin 10.5 L ABG Sodium 134.9 L ABG Potassium ABG Glucose 115 H Carboxyhemoglobin 0.4 L Sodium Potassium Chloride Carbon Dioxide BUN Creatinine Glucose POC Glucose Lactic Acid Calcium Phosphorus AST ALT CK-MB (CK-2) Rel Index Troponin T 0.078 H NT-Pro-B Natriuret Pep Total Protein Albumin HDL Cholesterol Arterial Blood Glucose 115 H Arterial Blood Ionized Calcium 4.3 L Urine WBC (Auto) Urine Creatinine Hepatitis C Antibody 11/22/20 11/22/20 11/22/20 16:00 17:45 23:21 WBC RBC Hgb Hct MCV Lymph % (Auto) [place]er % (Auto) Lymph # (Auto) [place] # (Auto) Seg Neutrophils % Seg Neuts % (Manual) Nucleated RBC % Seg Neutrophils # Seg Neutrophils # Man Lymphocytes # (Manual) ABG pH POC ABG pCO2 POC ABG pO2 ABG Hemoglobin ABG Sodium ABG Potassium ABG Glucose Carboxyhemoglobin Sodium Potassium Chloride Carbon Dioxide BUN Creatinine Glucose POC Glucose 107 H 115 H Lactic Acid Calcium Phosphorus AST ALT CK-MB (CK-2) Rel Index Troponin T NT-Pro-B Natriuret Pep Total Protein Albumin HDL Cholesterol Arterial Blood Glucose Arterial Blood Ionized Calcium Urine WBC (Auto) Urine Creatinine Hepatitis C Antibody Reactive A 11/23/20 11/23/20 11/23/20 03:03 05:33 10:00 WBC RBC 3.33 L Hgb 10.6 L Hct 32.2 L MCV 97 H Lymph % (Auto) [place] % (Auto) 15.0 H Lymph # (Auto) [place] # (Auto) 1.5 H Seg Neutrophils % Seg Neuts % (Manual) Nucleated RBC % Seg Neutrophils # Seg Neutrophils # Man Lymphocytes # (Manual) ABG pH POC ABG pCO2 POC ABG pO2 115.8 H ABG Hemoglobin 10.1 L ABG Sodium 135.8 L ABG Potassium ABG Glucose 98 H Carboxyhemoglobin 0.4 L Sodium Potassium Chloride Carbon Dioxide BUN Creatinine Glucose POC Glucose 106 H Lactic Acid Calcium Phosphorus AST ALT CK-MB (CK-2) Rel Index Troponin T NT-Pro-B Natriuret Pep Total Protein Albumin HDL Cholesterol Arterial Blood Glucose 98 H Arterial Blood Ionized Calcium 4.4 L Urine WBC (Auto) Urine Creatinine Hepatitis C Antibody 11/23/20 11/23/20 11/23/20 10:00 12:12 18:21 WBC RBC Hgb Hct MCV Lymph % (Auto) [place]er % (Auto) Lymph # (Auto) [place] # (Auto) Seg Neutrophils % Seg Neuts % (Manual) Nucleated RBC % Seg Neutrophils # Seg Neutrophils # Man Lymphocytes # (Manual) ABG pH POC ABG pCO2 POC ABG pO2 ABG Hemoglobin ABG Sodium ABG Potassium ABG Glucose Carboxyhemoglobin Sodium Potassium Chloride Carbon Dioxide BUN 22 H Creatinine Glucose 101 H POC Glucose 119 H 106 H Lactic Acid Calcium 7.9 L Phosphorus AST ALT CK-MB (CK-2) Rel Index Troponin T NT-Pro-B Natriuret Pep Total Protein 5.5 L Albumin 2.8 L HDL Cholesterol Arterial Blood Glucose Arterial Blood Ionized Calcium Urine WBC (Auto) Urine Creatinine Hepatitis C Antibody 11/23/20 11/24/20 11/24/20 23:28 01:48 09:58 WBC RBC Hgb Hct MCV Lymph % (Auto) [place] % (Auto) Lymph # (Auto) [place] # (Auto) Seg Neutrophils % Seg Neuts % (Manual) Nucleated RBC % Seg Neutrophils # Seg Neutrophils # Man Lymphocytes # (Manual) ABG pH 7.281 L POC ABG pCO2 58.4 H POC ABG pO2 ABG Hemoglobin 11.8 L ABG Sodium ABG Potassium ABG Glucose 101 H Carboxyhemoglobin Sodium 148 H Potassium Chloride Carbon Dioxide 34 H D BUN Creatinine Glucose POC Glucose 108 H Lactic Acid Calcium Phosphorus AST ALT CK-MB (CK-2) Rel Index Troponin T NT-Pro-B Natriuret Pep Total Protein Albumin HDL Cholesterol Arterial Blood Glucose 101 H Arterial Blood Ionized Calcium Urine WBC (Auto) Urine Creatinine Hepatitis C Antibody 11/24/20 11/25/20 11/25/20 09:58 00:29 05:48 WBC RBC Hgb Hct MCV Lymph % (Auto) [place] % (Auto) Lymph # (Auto) [place] # (Auto) Seg Neutrophils % Seg Neuts % (Manual) Nucleated RBC % Seg Neutrophils # Seg Neutrophils # Man Lymphocytes # (Manual) ABG pH POC ABG pCO2 POC ABG pO2 ABG Hemoglobin ABG Sodium ABG Potassium ABG Glucose Carboxyhemoglobin Sodium Potassium Chloride Carbon Dioxide BUN Creatinine Glucose POC Glucose 111 H 148 H Lactic Acid 0.60 L Calcium Phosphorus AST ALT CK-MB (CK-2) Rel Index Troponin T NT-Pro-B Natriuret Pep Total Protein Albumin HDL Cholesterol Arterial Blood Glucose Arterial Blood Ionized Calcium Urine WBC (Auto) Urine Creatinine Hepatitis C Antibody 11/25/20 11/25/20 11/25/20 08:18 08:18 11:34 WBC 13.2 H RBC 3.56 L Hgb 10.9 L Hct 34.0 L MCV 96 H Lymph % (Auto) [place] % (Auto) Lymph # (Auto) [place] # (Auto) Seg Neutrophils % Seg Neuts % (Manual) 98.0 H Nucleated RBC % 1.0 H Seg Neutrophils # Seg Neutrophils # Man 12.9 H Lymphocytes # (Manual) 0.0 L ABG pH POC ABG pCO2 POC ABG pO2 ABG Hemoglobin ABG Sodium ABG Potassium ABG Glucose Carboxyhemoglobin Sodium 147 H Potassium Chloride Carbon Dioxide 32 H BUN 26 H Creatinine Glucose 151 H POC Glucose 144 H Lactic Acid Calcium Phosphorus AST ALT CK-MB (CK-2) Rel Index Troponin T NT-Pro-B Natriuret Pep Total Protein 6.0 L Albumin 3.7 L HDL Cholesterol Arterial Blood Glucose Arterial Blood Ionized Calcium Urine WBC (Auto) Urine Creatinine Hepatitis C Antibody 11/25/20 11/25/20 11/26/20 18:03 23:15 05:07 WBC RBC Hgb Hct MCV Lymph % (Auto) Towner % (Auto) Lymph # (Auto) [place] # (Auto) Seg Neutrophils % Seg Neuts % (Manual) Nucleated RBC % Seg Neutrophils # Seg Neutrophils # Man Lymphocytes # (Manual) ABG pH POC ABG pCO2 POC ABG pO2 ABG Hemoglobin ABG Sodium ABG Potassium ABG Glucose Carboxyhemoglobin Sodium Potassium Chloride Carbon Dioxide BUN Creatinine Glucose POC Glucose 147 H 158 H 184 H Lactic Acid Calcium Phosphorus AST ALT CK-MB (CK-2) Rel Index Troponin T NT-Pro-B Natriuret Pep Total Protein Albumin HDL Cholesterol Arterial Blood Glucose Arterial Blood Ionized Calcium Urine WBC (Auto) Urine Creatinine Hepatitis C Antibody 11/26/20 11/26/20 11/26/20 06:22 06:22 12:52 WBC 12.3 H RBC 3.52 L Hgb 11.1 L Hct 33.6 L MCV 95 H Lymph % (Auto) [place] % (Auto) Lymph # (Auto) [place] # (Auto) Seg Neutrophils % Seg Neuts % (Manual) Nucleated RBC % Seg Neutrophils # Seg Neutrophils # Man Lymphocytes # (Manual) ABG pH POC ABG pCO2 POC ABG pO2 ABG Hemoglobin ABG Sodium ABG Potassium ABG Glucose Carboxyhemoglobin Sodium Potassium 3.3 L Chloride 95.8 L Carbon Dioxide 33 H BUN 35 H Creatinine 1.4 H Glucose 185 H POC Glucose 170 H Lactic Acid Calcium Phosphorus AST ALT CK-MB (CK-2) Rel Index Troponin T 0.036 H D NT-Pro-B Natriuret Pep Total Protein 6.2 L Albumin 3.1 L HDL Cholesterol Arterial Blood Glucose Arterial Blood Ionized Calcium Urine WBC (Auto) Urine Creatinine Hepatitis C Antibody 11/26/20 11/26/20 11/27/20 17:30 23:14 05:35 WBC RBC Hgb Hct MCV Lymph % (Auto) Towner % (Auto) Lymph # (Auto) [place] # (Auto) Seg Neutrophils % Seg Neuts % (Manual) Nucleated RBC % Seg Neutrophils # Seg Neutrophils # Man Lymphocytes # (Manual) ABG pH POC ABG pCO2 POC ABG pO2 ABG Hemoglobin ABG Sodium ABG Potassium ABG Glucose Carboxyhemoglobin Sodium Potassium Chloride Carbon Dioxide BUN Creatinine Glucose POC Glucose 133 H 149 H 135 H Lactic Acid Calcium Phosphorus AST ALT CK-MB (CK-2) Rel Index Troponin T NT-Pro-B Natriuret Pep Total Protein Albumin HDL Cholesterol Arterial Blood Glucose Arterial Blood Ionized Calcium Urine WBC (Auto) Urine Creatinine Hepatitis C Antibody 11/27/20 11/27/20 08:03 12:02 WBC RBC Hgb Hct MCV Lymph % (Auto) Towner % (Auto) Lymph # (Auto) [place] # (Auto) Seg Neutrophils % Seg Neuts % (Manual) Nucleated RBC % Seg Neutrophils # Seg Neutrophils # Man Lymphocytes # (Manual) ABG pH POC ABG pCO2 POC ABG pO2 ABG Hemoglobin ABG Sodium ABG Potassium ABG Glucose Carboxyhemoglobin Sodium Potassium Chloride 97.0 L Carbon Dioxide 31 H BUN 41 H Creatinine 1.4 H Glucose 145 H POC Glucose 139 H Lactic Acid Calcium Phosphorus 2.20 L AST ALT CK-MB (CK-2) Rel Index Troponin T NT-Pro-B Natriuret Pep Total Protein Albumin HDL Cholesterol Arterial Blood Glucose Arterial Blood Ionized Calcium Urine WBC (Auto) Urine Creatinine Hepatitis C Antibody
[2020-11-27] MEDS: QUEtiapine 25 MG TAB PO SCH ×2 (13:31→22:15)
--- NOTE | 2020-11-27 17:07 | Progress Note ---
Assessment and Plan NSTEMI suspect type II with history of coronary artery disease post CABG * Troponins are mildly elevated, subacute and nonspecific. Trending downwards. Continue to trend CE's * Echocardiogram reviewed (11/22/2020): LVEF is 50 to 55%. LV is normal size. LV SF is normal. Mild diastolic dysfunction. RV SF is normal. Mild aortic stenosis: Highest mean AV gradient is 12.37 mmHg. Moderate mitral stenosis. Severe pulmonary hypertension RVSP 74 mmHg, mild TR. * Hx Mitral Valve Repair (2004). Consider HECTOR if further characterization of Mi tral Stenosis is requested. Pulm HTN * Pulmonology is following. Hypertension * Resume antihypertensive medications, cardioprotective regimen once patient agitation is resolved, administration route is reestablished. Patient is being moved to stepdown unit after having been weaned off CPAP. Will follow. Pt seen in conjunction with Dr. Whitfield, who agrees with the assessment and plan of care. - Patient Problems (1) Acute metabolic encephalopathy Current Visit: Yes Status: Acute (2) Acute and chronic respiratory failure ([id number]) Current Visit: Yes Status: Acute Qualifiers: Respiratory failure complication: hypoxia Qualified Code(s): J96.21 - Acute and chronic respiratory failure with hypoxia (3) COPD (chronic obstructive pulmonary disease) Current Visit: Yes Status: Chronic (4) Pulmonary hypertension Current Visit: Yes Status: Chronic (5) Acute kidney injury Current Visit: Yes Status: Acute (6) Anemia Current Visit: Yes Status: Chronic (7) NSTEMI (non-ST elevated myocardial infarction) Current Visit: Yes Status: Acute Plan to address problem: Type 2 (8) CAD (coronary artery disease) Current Visit: Yes Status: Chronic Qualifiers: Coronary Disease-Associated Artery/Lesion type: [place] artery [place] vs. transplanted heart: [place] heart (9) History of coronary artery bypass graft Current Visit: Yes Status: Chronic (10) S/P mitral valve repair Current Visit: Yes Status: Chronic Plan to address problem: 2005 (11) Hypertension Current Visit: Yes Status: Chronic Qualifiers: Hypertension type: primary hypertension Qualified Code(s): I10 - Essential (primary) hypertension (12) Type 2 diabetes mellitus Current Visit: Yes Status: Chronic Qualifiers: Qualified Code(s): E11.9 - Type 2 diabetes mellitus without complications (13) Carotid stenosis Current Visit: Yes Status: Chronic Qualifiers: Laterality: right Qualified Code(s): I65.21 - Occlusion and stenosis of right carotid artery (14) S/P carotid endarterectomy Current Visit: Yes Status: Chronic (15) H/O: GI bleed Current Visit: Yes Status: Chronic Subjective Date of service: 11/27/20 Principal diagnosis: Acute respiratory failure Interval history: Patient in bed, altered mental status confused and agitated. He has been weaned off CPAP. Telemetry reviewed: Sinus rhythm 67 with frequent PACs. No events Objective Last Vital Signs Temp 97.8 F 11/27/20 16:00 Pulse 58 L 11/27/20 16:00 Resp 22 11/27/20 16:00 BP 186/85 11/27/20 14:00 Pulse Ox 100 11/27/20 16:00 - Physical Examination General: Other (agitated, on BiPAP) HEENT: Positive: EOMI, Normocephaly Neck: Positive: neck supple, trachea midline. Negative: JVD/HJR Cardiac: Positive: Reg Rate and Rhythm, S1/S2 Lungs: Positive: Normal Breath Sounds, Oxygen Neuro: Positive: Other (agitated, AMS) Abdomen: Positive: Soft Skin: Negative: Rash Musculoskeletal: other (Altered mental status) Extremities: Present: lower extr. pulses. Absent: edema - Labs and Meds Comprehensive Metabolic Panel 11/27/20 Range/Units 08:03 Sodium 139 (137-145) mmol/L Potassium 4.0 D (3.6-5.0) mmol/L Chloride 97.0 L (98-107) mmol/L Carbon Dioxide 31 H (22-30) mmol/L BUN 41 H (9-20) mg/dL Creatinine 1.4 H (0.8-1.3) mg/dL Glucose 145 H (75-100) mg/dL Calcium 8.9 (8.4-10.2) mg/dL - Imaging and Cardiology EKG: report reviewed, image reviewed Nuclear stress test: report reviewed (05/2019 normal myocardial perfusion scan) Echo: report reviewed (Echocardiogram reviewed (11/22/2020): LVEF is 50 to 55%. LV is normal size. LV SF is normal. Mild diastolic dysfunction. RV SF is normal. Mild aortic stenosis: Highest mean AV gradient is 12.37 mmHg. Moderate mitral stenosis. Severe pulmonary hypertension RVSP 74 mmHg, mild TR.), other (05/2019 - normal LV function, mild mitral stenosis) - EKG Sinus rhythms and dysrhythmias: sinus rhythm Repolarization changes or abnormalities: nonspecific abnormality, ST segment, and/or T wave
[2020-11-28] MEDS: IPRATROPIUM/ALBUTEROL SULFATE 3 ML AMPUL.NEB IH SCH ×4 (01:12→19:58)
[2020-11-28] MEDS: hydrALAZINE 20 MG/1 ML INJ IV PRN (04:35)
[2020-11-28] MEDS: METOPROLOL TARTRATE 5 MG/5 ML INJ IV SCH ×4 (05:22→23:43)
[2020-11-28] MEDS: methylPREDNISolone Sod Succinate 125 MG/2 ML INJ IV SCH ×3 (05:24→21:41)
[2020-11-28] MEDS: HEPARIN 5,000 UNIT/1 ML VIAL SUB-Q SCH ×3 (05:28→21:41)
[2020-11-28 06:51] LABS: Calcium 9.1 mg/dL (8.4-10.2)
[2020-11-28] MEDS: BUDESONIDE 0.5 MG/2 ML NEBU IH SCH ×2 (08:34→19:58)
[2020-11-28 09:34] LABS: Hematocrit 37.6 % (35.5-45.6); Hemoglobin 12.3 gm/dl (11.8-15.2); Mean Corpuscular HGB Conc 33 % (32-34); Mean Corpuscular Volume 94 fl (84-94); Platelet Count 369 K/mm3 (140-440); Red Blood Count 4.01 M/mm3 (3.65-5.03); Red Cell Distribution Width 15.1 % (13.2-15.2)
[2020-11-28] MEDS: QUEtiapine 25 MG TAB PO SCH ×2 (09:55→21:41)
[2020-11-28] MEDS: TAMSULOSIN 0.4 MG CAP PO SCH (09:55)
[2020-11-28] MEDS: SENNOSIDES/DOCUSATE SODIUM 8.6/50 MG TAB FEEDTUBE SCH ×2 (09:55→21:41)
[2020-11-28] MEDS: ASPIRIN 81 MG TAB CHEW PO SCH (09:55)
[2020-11-28] MEDS: LANSOPRAZOLE 30 MG SOLUTAB FEEDTUBE SCH (09:56)
--- NOTE | 2020-11-28 09:57 | Progress Note ---
Assessment and Plan Assessment and plan: PT/OT evaluation, when he comes off high flow oxygen --Hypokalemia; resolved Monitor electrolytes --Acute kidney injury; vasomotor nephropathy Gentle hydration closely monitor renal function --Acute hypoxic respiratory failure/Requiring intubation 11/21/2020 s/p extubation 11/23/2020, patient is on noninvasive ventilation on high flow nasal cannula oxygen 20 L/40 Fio2/97% sat today slightly better 15 L 35 FiO2 O2 sats 94% Wean as tolerated, --Acute exacerbation of COPD; Home oxygen dependent BiPAP as needed, wean as tolerated Pulmonary hygiene, pulmonary critical care following --Severe pulmonary hypertension; Management per pulmonary, continue supportive care --Acute metabolic encephalopathy -11/21 CT head shows no acute intracranial abnormality, sinus disease Continue supportive care --NSTEMI type II Presented with [facility] with elevated troponins cardiology patient had a stress test in 2019 which showed no significant ischemia, Echo; EF 50 to 55% severe pulmonary hypertension moderate mitral stenosis may benefit from HECTOR for evaluation of mitral valve when patient is stable and extubated --Acute kidney injury; present on admission Vasomotor nephropathy Now resolved, normal renal function Avoid nephrotoxins, nephrology following --History of bladder cancer; Indwelling Paulson in place, supportive care Continue Flomax --Urinary tract infection; Continue empiric antibiotics total 5 days Supportive care --Dyslipidemia; Continue statin and low-cholesterol diet --Hypertension; moderate control We will continue current antihypertensives And as needed hydralazine --Hypernatremia ; Patient was hyponatremia on admission ,probably overcorrection Free water via [place], nephrology following Monitor electrolytes --Severe protein calorie malnutrition ; Hypoalbuminemia ,nutrition supplements Nutrition consult and supportive care --DVT prophylaxis; Subcu heparin, SCDs --GI prophylaxis; Continue Prevacid --Full CODE STATUS; Bedside swallow screen, if normal start diet pured/mechanical soft advance as tolerated We will also request physical therapy We will closely monitor the patient and adjust the management as needed Consults and recommendations noted and appreciated Plan of care reviewed with the patient's nurse PT OT when he comes off high flow oxygen DC planning per case management; considering LTAC placement The high probability of a clinically significant, sudden or life threatening deterioration of the [resp, cardiac, nephrology, metabolic] system(s) required my full and direct attention, intervention and personal management. The aggregate critical care time was [34] minutes. This time is in addition to time spent performing reported procedures but includes the following: [x] Data Review and interpretation [x] Patient assessment and monitoring of vital signs [x] Documentation [x] Medication orders and management Brief history and daily hospital course: 85-year-old male patient with past medical history of COPD on home oxygen, GERD, hypertension, asthma, hyperlipidemia, vasopressin, bladder cancer admitted for acute hypoxic respiratory failure, intubated on 11/21/2020 managed appropriately evaluated by pulmonary critical subsequently extubated on 11/23/2020, today patient is on high flow nasal cannula oxygen, pulmonary critical, cardiology and nephrology following the patient 11/23: Patient was extubated, currently on BiPAP Mild distress, wean as tolerated 11/25/2020; patient is on BiPAP Mild distress, noncommunicative 11/26/2020; patient is on intermittent BiPAP Currently on high flow nasal cannula oxygen 11/27/2020; patient is more alert and awake Will get swallow screen, if normal start pured diet Transfer the patient to [facility] 11/28/2020; patient is on high flow oxygen slightly better than yesterday Able to tolerate mechanical soft diet when the family comes and helps him DC planning, considering LTAC placement Disposition; follow clinically, follow consultants recommendation Discharge when stable to LTAC/SNF/home with home health which ever is applicable History Interval history: I have seen and examined the patient at the bedside in [facility] this morning Patient's chart and medications reviewed, patient still in acute respiratory failure Requiring high flow oxygen 15 L 35 FiO2 O2 sats 94% Patient is lethargic, not in acute distress Vital signs noted vital signs noted Hospitalist Physical - Constitutional Vitals: Temp Pulse Resp BP Pulse Ox 98.6 F 65 28 H 160/65 97 11/28/20 04:04 11/28/20 08:00 11/28/20 08:00 11/28/20 08:00 11/28/20 08:35 General appearance: Present: well-nourished, obese, other (More alert and awake, slightly agitated) - EENT Eyes: Present: PERRL, EOM intact, conjunctival injection - Neck Neck: Present: supple, normal ROM - Respiratory Respiratory effort: normal Respiratory: bilateral: diminished, negative: rales, rhonchi, wheezing - Cardiovascular Rhythm: regular Heart Sounds: Present: S1 & S2 - Extremities Extremities: no ischemia, No edema - Abdominal General gastrointestinal: soft, non-tender, non-distended, normal bowel sounds - Integumentary Integumentary: Present: clear, warm - Psychiatric Psychiatric: other (Minimally communicative/language barrier) - Neurologic Neurologic: moves all extremities HEART Score - HEART Score Troponin: Troponin T 0.018 ng/mL (0.00-0.029) 11/28/20 06:08 Results - Labs CBC & Chem 7: 11/28/20 09:21 11/28/20 06:08 Labs: Laboratory Last Values WBC 9.8 K/mm3 (4.5-11.0) 11/28/20 09:21 RBC 4.01 M/mm3 (3.65-5.03) 11/28/20 09:21 Hgb 12.3 gm/dl (11.8-15.2) 11/28/20 09:21 Hct 37.6 % (35.5-45.6) 11/28/20 09:21 MCV 94 fl (84-94) 11/28/20 09:21 MCH 31 pg (28-32) 11/28/20 09:21 MCHC 33 % (32-34) 11/28/20 09:21 RDW 15.1 % (13.2-15.2) 11/28/20 09:21 Plt Count 369 K/mm3 (140-440) 11/28/20 09:21 Lymph % (Auto) 16.1 % (13.4-35.0) 11/23/20 10:00 [place] % (Auto) 15.0 % (0.0-7.3) H 11/23/20 10:00 Eos % (Auto) 1.0 % (0.0-4.3) 11/23/20 10:00 Baso % (Auto) 0.5 % (0.0-1.8) 11/23/20 10:00 Lymph # (Auto) 1.6 K/mm3 (1.2-5.4) 11/23/20 10:00 [place] # (Auto) 1.5 K/mm3 (0.0-0.8) H 11/23/20 10:00 Eos # (Auto) 0.1 K/mm3 (0.0-0.4) 11/23/20 10:00 Baso # (Auto) 0.1 K/mm3 (0.0-0.1) 11/23/20 10:00 Add Manual Diff Complete 11/25/20 08:18 Total Counted 100 11/25/20 08:18 Seg Neutrophils % Food Sales Clerk 11/25/20 08:18 Seg Neuts % (Manual) 98.0 % (40.0-70.0) H 11/25/20 08:18 Monocytes % (Manual) 2.0 % (0.0-7.3) 11/25/20 08:18 Nucleated RBC % 1.0 % (0.0-0.9) H 11/25/20 08:18 Seg Neutrophils # 6.6 K/mm3 (1.8-7.7) 11/23/20 10:00 Seg Neutrophils # Man 12.9 K/mm3 (1.8-7.7) H 11/25/20 08:18 Band Neutrophils # 0.0 K/mm3 11/25/20 08:18 Lymphocytes # (Manual) 0.0 K/mm3 (1.2-5.4) L 11/25/20 08:18 Abs React Lymphs (Man) 0.0 K/mm3 11/25/20 08:18 Monocytes # (Manual) 0.3 K/mm3 (0.0-0.8) 11/25/20 08:18 Eosinophils # (Manual) 0.0 K/mm3 (0.0-0.4) 11/25/20 08:18 Basophils # (Manual) 0.0 K/mm3 (0.0-0.1) 11/25/20 08:18 Metamyelocytes # 0.0 K/mm3 11/25/20 08:18 Myelocytes # 0.0 K/mm3 11/25/20 08:18 Promyelocytes # 43.8 K/mm3 11/25/20 08:18 Blast Cells # 0.0 K/mm3 11/25/20 08:18 WBC Morphology Not Reportable 11/25/20 08:18 Hypersegmented Neuts Not Reportable 11/25/20 08:18 Hyposegmented Neuts Not Reportable 11/25/20 08:18 Hypogranular Neuts Not Reportable 11/25/20 08:18 Smudge Cells Not Reportable 11/25/20 08:18 Toxic Granulation Few 11/25/20 08:18 Toxic Vacuolation Not Reportable 11/25/20 08:18 Dohle Bodies Not Reportable 11/25/20 08:18 Pelger-Huet Anomaly Not Reportable 11/25/20 08:18 Liang Rods Not Reportable 11/25/20 08:18 Platelet Estimate Consistent w auto 11/25/20 08:18 Clumped Platelets Not Reportable 11/25/20 08:18 Plt Clumps, EDTA Not Reportable 11/25/20 08:18 Large Platelets Not Reportable 11/25/20 08:18 Giant Platelets Not Reportable 11/25/20 08:18 Platelet Satelliting Not Reportable 11/25/20 08:18 Plt Morphology Comment Not Reportable 11/25/20 08:18 RBC Morphology Not Reportable 11/25/20 08:18 Dimorphic RBCs Not Reportable 11/25/20 08:18 Polychromasia Not Reportable 11/25/20 08:18 Hypochromasia 1+ 11/25/20 08:18 Poikilocytosis Not Reportable 11/25/20 08:18 Anisocytosis Not Reportable 11/25/20 08:18 Microcytosis Not Reportable 11/25/20 08:18 Macrocytosis Not Reportable 11/25/20 08:18 Spherocytes Not Reportable 11/25/20 08:18 Pappenheimer Bodies Not Reportable 11/25/20 08:18 Sickle Cells Not Reportable 11/25/20 08:18 Target Cells 1+ 11/25/20 08:18 Tear Drop Cells Not Reportable 11/25/20 08:18 Ovalocytes Not Reportable 11/25/20 08:18 Helmet Cells Not Reportable 11/25/20 08:18 Miranda-Braman Bodies Not Reportable 11/25/20 08:18 Raymond Rings Not Reportable 11/25/20 08:18 Deep Cells Not Reportable 11/25/20 08:18 Bite Cells Not Reportable 11/25/20 08:18 Crenated Cell Not Reportable 11/25/20 08:18 Elliptocytes Not Reportable 11/25/20 08:18 Acanthocytes (Spur) Not Reportable 11/25/20 08:18 Rouleaux Not Reportable 11/25/20 08:18 Hemoglobin C Crystals Not Reportable 11/25/20 08:18 Schistocytes Not Reportable 11/25/20 08:18 Malaria parasites Not Reportable 11/25/20 08:18 Fuad Bodies Not Reportable 11/25/20 08:18 Hem Pathologist Commnt No 11/25/20 08:18 PT 13.5 Sec. (12.2-14.9) 11/21/20 20:50 INR 0.98 (0.87-1.13) 11/21/20 20:50 APTT 32.1 Sec. (24.2-36.6) 11/21/20 20:50 ABG pH 7.281 (7.320-7.450) L 11/24/20 01:48 POC ABG pCO2 58.4 mmHg (32.0-48.0) H 11/24/20 01:48 POC ABG pO2 98.1 mmHg (83-108) 11/24/20 01:48 POC ABG HCO3 26.9 11/24/20 01:48 ABG O2 Saturation 96.9 (0-100) 11/24/20 01:48 POC ABG Base Excess -0.7 11/24/20 01:48 ABG Hemoglobin 11.8 (12.0-17.5) L 11/24/20 01:48 ABG Oxyhemoglobin 95.9 (94-98) 11/24/20 01:48 ABG Methemoglobin 0.3 (0.0-1.5) 11/24/20 01:48 ABG Sodium 140.6 mmol/L (136.0-145.0) 11/24/20 01:48 ABG Potassium 3.9 mmol/L (3.40-4.50) 11/24/20 01:48 ABG Chloride 104.0 mmol/L (98-107) 11/24/20 01:48 ABG Glucose 101 mg/dL (65-95) H 11/24/20 01:48 Carboxyhemoglobin 0.7 (0.5-1.5) 11/24/20 01:48 FiO2 % 50.0 11/24/20 01:48 Sodium 140 mmol/L (137-145) 11/28/20 06:08 Potassium 4.8 mmol/L (3.6-5.0) 11/28/20 06:08 Chloride 99.6 mmol/L (98-107) 11/28/20 06:08 Carbon Dioxide 30 mmol/L (22-30) 11/28/20 06:08 Anion Gap 15 mmol/L 11/28/20 06:08 BUN 45 mg/dL (9-20) H 11/28/20 06:08 Creatinine 1.4 mg/dL (0.8-1.3) H 11/28/20 06:08 Estimated GFR 48 ml/min 11/28/20 06:08 BUN/Creatinine Ratio 32 % 11/28/20 06:08 Glucose 135 mg/dL (75-100) H 11/28/20 06:08 POC Glucose 143 mg/dL (70-105) H 11/28/20 05:26 Lactic Acid 0.60 mmol/L (0.7-2.0) L 11/24/20 09:58 Calcium 9.1 mg/dL (8.4-10.2) 11/28/20 06:08 Phosphorus 2.20 mg/dL (2.5-4.5) L 11/27/20 08:03 Magnesium 2.10 mg/dL (1.7-2.3) 11/27/20 08:03 Total Bilirubin 0.30 mg/dL (0.1-1.2) 11/26/20 06:22 AST 18 units/L (5-40) 11/26/20 06:22 ALT 22 units/L (7-56) 11/26/20 06:22 Alkaline Phosphatase 55 units/L (35-129) 11/26/20 06:22 Total Creatine Kinase 132 units/L (55-170) 11/22/20 10:20 CK-MB (CK-2) 3.3 ng/mL (0.0-4.0) 11/22/20 10:20 CK-MB (CK-2) Rel Index 2.5 (0-4) 11/22/20 10:20 Troponin T 0.018 ng/mL (0.00-0.029) 11/28/20 06:08 NT-Pro-B Natriuret Pep 6998 pg/mL (0-900) H 11/21/20 20:50 Total Protein 6.2 g/dL (6.3-8.2) L 11/26/20 06:22 Albumin 3.1 g/dL (3.9-5) L 11/26/20 06:22 Albumin/Globulin Ratio 1.0 % 11/26/20 06:22 Triglycerides 84 mg/dL (2-149) 11/21/20 20:50 Cholesterol 125 mg/dL (50-199) 11/21/20 20:50 LDL Cholesterol Direct 57 mg/dL (50-130) 11/21/20 20:50 HDL Cholesterol 60 mg/dL (40-59) H 11/21/20 20:50 Cholesterol/HDL Ratio 2.08 % 11/21/20 20:50 TSH 1.290 mlU/mL (0.270-4.200) 11/21/20 20:50 Free T4 1.18 ng/dL (0.76-1.46) 11/21/20 20:50 Arterial Blood Glucose 101 mg/dL (65-95) H 11/24/20 01:48 Arterial Blood Ionized Calcium 4.7 mg/dL (4.6-5.3) 11/24/20 01:48 Urine Color Yellow (Yellow) 11/22/20 05:00 Urine Turbidity Slightly-cloudy (Clear) 11/22/20 05:00 Urine pH 5.0 (5.0-7.0) 11/22/20 05:00 Ur Specific Speculator 1.016 (1.003-1.030) 11/22/20 05:00 Urine Protein 30 mg/dl mg/dL (Negative) 11/22/20 05:00 Urine Glucose (UA) Neg mg/dL (Negative) 11/22/20 05:00 Urine Ketones Neg mg/dL (Negative) 11/22/20 05:00 Urine Blood Lg (Negative) 11/22/20 05:00 Urine Nitrite Neg (Negative) 11/22/20 05:00 Urine Bilirubin Neg (Negative) 11/22/20 05:00 Urine Urobilinogen < 2.0 mg/dL (<2.0) 11/22/20 05:00 Ur Leukocyte Esterase Tr (Negative) 11/22/20 05:00 Urine WBC (Auto) 33.0 /HPF (0.0-6.0) H 11/22/20 05:00 Urine RBC (Auto) 49.0 /HPF (0.0-6.0) 11/22/20 05:00 U Epithel Cells (Auto) 1.0 /HPF (0-13.0) 11/22/20 05:00 Hyaline Casts 4 /LPF 11/22/20 05:00 Urine Mucus 1+ /HPF 11/22/20 05:00 Urine Eosinophils None seen (None Seen) 11/24/20 17:55 Urine Creatinine 158.2 mg/dL (0.1-20.0) H 11/22/20 00:11 Urine Sodium 39 mmol/L 11/22/20 00:11 Fraction Sodium Excret 0.3 11/22/20 00:11 Urine Opiates Screen Presumptive negative 11/22/20 00:11 Urine Methadone Screen Presumptive negative 11/22/20 00:11 Ur Barbiturates Screen Presumptive negative 11/22/20 00:11 Ur Phencyclidine Scrn Presumptive negative 11/22/20 00:11 Ur Amphetamines Screen Presumptive negative 11/22/20 00:11 U Benzodiazepines Scrn Presumptive negative 11/22/20 00:11 Urine Cocaine Screen Presumptive negative 11/22/20 00:11 U Marijuana (THC) Screen Presumptive negative 11/22/20 00:11 Drugs of Abuse Note Disclamer 11/22/20 00:11 Plasma/Serum Alcohol < 0.01 % (0-0.07) 11/21/20 20:50 Proteinase 3 (PR3) Ab <1.0 AI (<1.0) 11/22/20 16:00 Myeloperoxidase Ab <1.0 AI (<1.0) 11/22/20 16:00 Double Strand DNA Ab 1 IU/mL (<=4) 11/22/20 16:00 Complement C3 93 mg/dL () 11/22/20 16:00 Complement C4 25 mg/dL () 11/22/20 16:00 Coronavirus (PCR) Negative (Negative) 11/23/20 09:30 Hepatitis A IgM Ab Non-reactive (NonReactive) 11/22/20 16:00 Hep Bs Antigen Non-reactive (Negative) 11/22/20 16:00 Hep B Core IgM Ab Non-reactive (NonReactive) 11/22/20 16:00 Hepatitis C Antibody Reactive (NonReactive) A 11/22/20 16:00 Microbiology: Microbiology 11/22/20 Unknown Urine,Clean Catch Urine Culture - Final NO GROWTH AFTER 48 HOURS Paulson/IV: Voiding Method Indwelling Catheter Active Medications - Current Medications Current Medications: Generic Name Dose Route Start Last Admin Trade Name Freq PRN Reason Stop Dose Admin Acetaminophen 650 mg 11/23/20 15:29 Acetaminophen 325 Mg Tab PO Q4H PRN Pain, Mild (1-3) Albuterol 2.5 mg 11/22/20 01:19 Albuterol 2.5 Mg/3 Ml Nebu IH Q4HRT PRN Shortness Of Breath Albuterol/Ipratropium 1 ampul 11/22/20 02:00 11/28/20 08:34 Ipratropium/Albuterol Sulfate 3 Ml Ampul.Neb IH Not Given Q6HRT TERESA Lipase/Protease/Amylase 1 each 11/22/20 09:07 Lipase 10,500/Protease 25,000/Amylase 43,750 (Units) Dr Cyr FEEDTUBE PRN PRN For Clogged Feeding Tube Aspirin 81 mg 11/23/20 10:00 11/27/20 10:00 Aspirin 81 Mg Tab Chew PO Not Given QDAY TERESA Atorvastatin Calcium 40 mg 11/22/20 22:00 11/27/20 22:15 Atorvastatin 40 Mg Tab PO 40 mg QHS TERESA Administration Budesonide 0.5 mg 11/24/20 14:55 11/28/20 08:34 Budesonide 0.5 Mg/2 Ml Nebu IH Not Given Q12HRT TERESA Haloperidol Lactate 5 mg 11/25/20 09:00 11/27/20 05:34 Haloperidol Lactate 5 Mg/1 Ml Inj IV 5 mg Q6H PRN Administration Agitation Heparin Sodium (Porcine) 5,000 unit 11/22/20 06:00 11/28/20 05:28 Heparin 5,000 Unit/1 Ml Vial SUB-Q 5,000 unit Q8HR TERESA Administration Hydralazine HCl 10 mg 11/22/20 01:24 11/28/20 04:35 Hydralazine 20 Mg/1 Ml Inj IV 10 mg Q6H PRN Administration Blood Pressure Hydrophilic Ointment 1 applic 11/22/20 00:38 Lip Therapy Vaseline TP Q2HR PRN Dry Lips Dexmedetomidine HCl 400 mcg/ 104 mls @ 4.228 mls/hr 11/25/20 10:00 11/28/20 06:34 Sodium Chloride IV 1 mcg/kg/hr TITRATE TERESA 21.138 mls/hr Titration Protocol 0.2 MCG/KG/HR Lansoprazole 30 mg 11/28/20 10:00 Lansoprazole 30 Mg Solutab FEEDTUBE QDAY TERESA Methylprednisolone Sodium Succinate 40 mg 11/27/20 14:00 11/28/20 05:24 Methylprednisolone Sod Succinate 125 Mg/2 Ml Inj IV 40 mg Q8HR TERESA Administration Metoprolol Tartrate 5 mg 11/25/20 12:00 11/28/20 05:22 Metoprolol Tartrate 5 Mg/5 Ml Inj IV 5 mg Q6HR TERESA Administration Multi-Ingred Cream/Lotion/Oil/Oint 1 applic 11/22/20 00:38 Mineral Oil/Petrolatum, White Ophth Oint 3.5 Gm OU Q4HR PRN Dry Eye(s) Nitroglycerin 0.4 mg 11/22/20 01:25 Nitroglycerin 0.4 Mg Tab Subl SL Q5M PRN Chest Pain Ondansetron HCl 4 mg 11/22/20 01:19 Ondansetron 4 Mg/2 Ml Inj IV Q8H PRN Nausea And Vomiting Quetiapine Fumarate 25 mg 11/27/20 12:00 11/27/20 22:15 Quetiapine 25 Mg Tab PO 25 mg BID TERESA Administration Senna/Docusate Sodium 1 tab 11/22/20 10:00 11/27/20 22:15 Sennosides/Docusate Sodium 8.6/50 Mg Tab FEEDTUBE 1 tab BID ETRESA Administration Simple Syrup 15 ml 11/22/20 09:07 Simple Syrup 15 Ml FEEDTUBE PRN PRN Hypoglycemia Simple Syrup 30 ml 11/22/20 09:07 Simple Syrup 15 Ml FEEDTUBE PRN PRN Hypoglycemia Sodium Bicarbonate 325 mg 11/22/20 09:07 Sodium Bicarbonate 325 Mg Tab FEEDTUBE PRN PRN For Clogged Feeding Tube Sodium Chloride 10 ml 11/22/20 10:00 11/27/20 22:17 Sodium Chloride 0.9% 10 Ml Flush Syringe IV 10 ml BID TERESA Administration Sodium Chloride 10 ml 11/22/20 01:19 Sodium Chloride 0.9% 10 Ml Flush Syringe IV PRN PRN LINE FLUSH Tamsulosin HCl 0.4 mg 11/22/20 10:00 11/27/20 10:00 Tamsulosin 0.4 Mg Cap PO Not Given DAILY TERESA Nutrition/Malnutrition Assess - Dietary Evaluation Nutrition/Malnutrition Findings: Nutrition Notes Start: 11/22/20 08:53 Freq: Status: Active Protocol: Document 11/26/20 10:11 IGOR (Rec: 11/26/20 10:13 IGOR [id number]) Nutrition Notes Initial or Follow up Brief Note Current Diagnosis Acute Kidney Injury,COPD, Coronary Artery Disease, Diabetes,Hypertension,Heart Failure,Respiratory Failure, Hyperlipidemia Other Pertinent Diagnosis AMS Current Diet NPO [place] Body Weight (kg) 0 Weight Status Obese Subjective/Other Information Pt continues on bipap and unable to consume PO. Nutrition Intervention Change Diet Order: Diet advancement when able Follow-Up By: 11/28/20 Additional Comments F/U for plan of care
--- NOTE | 2020-11-28 11:20 | Progress Note ---
Assessment and Plan 85 y/o [place] male admitted with acute hypoxic respiratory failure. 11/28/20: Continue to wean HFNC. Agree with holding Precedex, can increase seroquel if needed to help with mood. Hopeful that over the weekend will be down to nasal cannula and can transfer to the floor. CM working on LTACH evaluation. Patient is stable for transfer, if and when accepted. 11/27/20: Will transfer to step down today. Agree with bedside swallow eval now that patient is more awake. Will try bID seroquel to help with mood and agitation. Hopeful Cr has stablized. Continue steroids at 40q8. Consider LTACH evaluation 11/26/20: 11/25/20: Continue bipap for right now. Added precedex and stopped ativan as this may be worsening agitation. Ok with haldol use. Continue daily diuretics to keep patient net negative. Continue ICU monitoring for now. Renal function is better. Guarded prognosis. 11/23/20: Wean sedation to off. If patient can tolerate being off sedation, will attempt PSV trial, otherwise, will likely have to just stop sedation and extubate, will have bipap ready for as needed purposes. Needs chemistry to assess renal function. Out put was good. 1. Repeat ABG later this afternoon and wean FIO2 according (>88%) 2. Stop sedation, need to assess mental state 3. Follow up renal function and urine output. 4. Guarded prognosis, this is likely acute on chronic respiratory failure. cct 31 minutes. Subjective Date of service: 11/28/20 Principal diagnosis: Acute respiratory failure Interval history: no acute events. Very sleepy on precedex so now off. Down to 20 liters and 40%. Good sats. HR in the 50's. Good BP. Objective Vital Signs - 12hr 11/27/20 11/27/20 11/27/20 23:20 23:30 23:50 Temperature Pulse Rate 78 69 66 Pulse Rate [ Anterior Bilateral Throughout] Pulse Rate [ From Monitor] Respiratory 27 H 22 26 H Rate Respiratory Rate [Anterior Bilateral Throughout] Respiratory Rate [ Generalized] Blood Pressure 127/68 166/81 166/81 O2 Sat by Pulse 97 97 87 Oximetry 11/27/20 11/27/20 11/28/20 23:52 23:56 00:00 Temperature 97.7 F Pulse Rate 65 64 Pulse Rate [ Anterior Bilateral Throughout] Pulse Rate [ From Monitor] Respiratory 29 H Rate Respiratory Rate [Anterior Bilateral Throughout] Respiratory Rate [ Generalized] Blood Pressure 166/81 176/81 O2 Sat by Pulse 93 Oximetry 11/28/20 11/28/20 11/28/20 00:20 00:25 00:30 Temperature Pulse Rate 67 66 64 Pulse Rate [ Anterior Bilateral Throughout] Pulse Rate [ From Monitor] Respiratory 28 H 28 H Rate Respiratory Rate [Anterior Bilateral Throughout] Respiratory Rate [ Generalized] Blood Pressure 176/81 173/85 O2 Sat by Pulse 96 97 Oximetry 11/28/20 11/28/20 11/28/20 00:52 01:10 01:12 Temperature Pulse Rate 62 74 Pulse Rate [ 84 Anterior Bilateral Throughout] Pulse Rate [ From Monitor] Respiratory 24 23 Rate Respiratory 20 Rate [Anterior Bilateral Throughout] Respiratory Rate [ Generalized] Blood Pressure 173/85 121/93 O2 Sat by Pulse 98 94 94 Oximetry 11/28/20 11/28/20 11/28/20 01:20 01:40 02:00 Temperature Pulse Rate 64 66 62 Pulse Rate [ Anterior Bilateral Throughout] Pulse Rate [ From Monitor] Respiratory 25 H 22 26 H Rate Respiratory Rate [Anterior Bilateral Throughout] Respiratory Rate [ Generalized] Blood Pressure 121/93 186/73 158/95 O2 Sat by Pulse 97 96 97 Oximetry 11/28/20 11/28/20 11/28/20 03:10 03:50 04:00 Temperature Pulse Rate 65 64 65 Pulse Rate [ Anterior Bilateral Throughout] Pulse Rate [ 65 From Monitor] Respiratory 18 27 H 28 H Rate Respiratory Rate [Anterior Bilateral Throughout] Respiratory Rate [ Generalized] Blood Pressure 174/69 148/71 148/71 O2 Sat by Pulse 96 98 93 Oximetry 11/28/20 11/28/20 11/28/20 04:04 04:10 04:15 Temperature 98.6 F Pulse Rate 64 66 Pulse Rate [ Anterior Bilateral Throughout] Pulse Rate [ From Monitor] Respiratory 23 Rate Respiratory Rate [Anterior Bilateral Throughout] Respiratory Rate [ Generalized] Blood Pressure O2 Sat by Pulse 98 Oximetry 11/28/20 11/28/20 11/28/20 04:35 04:45 05:00 Temperature Pulse Rate 63 60 Pulse Rate [ Anterior Bilateral Throughout] Pulse Rate [ From Monitor] Respiratory 23 Rate Respiratory Rate [Anterior Bilateral Throughout] Respiratory Rate [ Generalized] Blood Pressure 193/91 174/90 O2 Sat by Pulse 91 96 Oximetry 11/28/20 11/28/20 11/28/20 05:22 06:00 07:00 Temperature Pulse Rate 73 60 55 L Pulse Rate [ Anterior Bilateral Throughout] Pulse Rate [ From Monitor] Respiratory 30 H 22 Rate Respiratory Rate [Anterior Bilateral Throughout] Respiratory Rate [ Generalized] Blood Pressure 137/53 139/65 136/74 O2 Sat by Pulse 97 95 Oximetry 11/28/20 11/28/20 11/28/20 08:00 08:35 09:00 Temperature Pulse Rate 55 L 56 L Pulse Rate [ Anterior Bilateral Throughout] Pulse Rate [ 65 From Monitor] Respiratory 20 24 Rate Respiratory Rate [Anterior Bilateral Throughout] Respiratory Rate [ Generalized] Blood Pressure 160/65 166/71 O2 Sat by Pulse 96 97 95 Oximetry 11/28/20 11/28/20 10:00 11:00 Temperature Pulse Rate 62 54 L Pulse Rate [ Anterior Bilateral Throughout] Pulse Rate [ From Monitor] Respiratory 29 H 22 Rate Respiratory Rate [Anterior Bilateral Throughout] Respiratory 20 Rate [ Generalized] Blood Pressure 161/119 161/66 O2 Sat by Pulse 97 97 Oximetry Constitutional: other (critically ill on BIPAP) Eyes: non-icteric ENT: other (orally intubated and sedated) Neck: supple, other (large in circumference) Effort: mildly labored Ascultation: Bilateral: diminished breath sounds, wheezes Percussion: Bilateral: not dull Cardiovascular: other (tachy, no mrg) Gastrointestinal: normoactive bowel sounds, soft, non-tender, non-distended Extremities: no cyanosis, no edema, pink and warm Neurologic: non-focal exam Psychiatric: other (anxious appearing) CBC and BMP: 11/28/20 09:21 11/28/20 06:08 ABG, PT/INR, D-dimer: ABG ABG pH 7.281 (7.320-7.450) L 11/24/20 01:48 POC ABG pCO2 58.4 mmHg (32.0-48.0) H 11/24/20 01:48 POC ABG pO2 98.1 mmHg (83-108) 11/24/20 01:48 POC ABG HCO3 26.9 11/24/20 01:48 ABG O2 Saturation 96.9 (0-100) 11/24/20 01:48 PT/INR, D-dimer PT 13.5 Sec. (12.2-14.9) 11/21/20 20:50 INR 0.98 (0.87-1.13) 11/21/20 20:50 Abnormal lab findings: Abnormal Labs 11/21/20 11/21/20 11/22/20 20:50 20:50 00:11 WBC RBC 3.48 L Hgb 11.1 L Hct 34.3 L MCV 99 H Lymph % (Auto) 6.8 L Garza % (Auto) Lymph # (Auto) 0.6 L Garza # (Auto) Seg Neutrophils % 85.5 H Seg Neuts % (Manual) Nucleated RBC % Seg Neutrophils # Seg Neutrophils # Man Lymphocytes # (Manual) ABG pH POC ABG pCO2 POC ABG pO2 ABG Hemoglobin ABG Sodium ABG Potassium ABG Glucose Carboxyhemoglobin Sodium 130 L Potassium 7.3 H* Chloride 91.1 L Carbon Dioxide BUN 40 H Creatinine 2.1 H Glucose 195 H POC Glucose Lactic Acid Calcium Phosphorus AST 91 H ALT 65 H CK-MB (CK-2) Rel Index 4.1 H Troponin T 0.045 H NT-Pro-B Natriuret Pep 6998 H Total Protein Albumin 3.7 L HDL Cholesterol 60 H Arterial Blood Glucose Arterial Blood Ionized Calcium Urine WBC (Auto) Urine Creatinine 158.2 H Hepatitis C Antibody 11/22/20 11/22/20 11/22/20 00:23 00:40 01:37 WBC 14.1 H RBC 3.53 L Hgb 11.0 L Hct 34.1 L MCV 97 H Lymph % (Auto) 12.3 L Garza % (Auto) 14.2 H Lymph # (Auto) Garza # (Auto) 2.0 H Seg Neutrophils % 72.3 H Seg Neuts % (Manual) Nucleated RBC % Seg Neutrophils # 10.2 H Seg Neutrophils # Man Lymphocytes # (Manual) ABG pH POC ABG pCO2 POC ABG pO2 ABG Hemoglobin ABG Sodium ABG Potassium ABG Glucose Carboxyhemoglobin Sodium Potassium 5.1 H D Chloride Carbon Dioxide BUN Creatinine Glucose POC Glucose Lactic Acid 2.10 H* Calcium Phosphorus AST ALT CK-MB (CK-2) Rel Index Troponin T NT-Pro-B Natriuret Pep Total Protein Albumin HDL Cholesterol Arterial Blood Glucose Arterial Blood Ionized Calcium Urine WBC (Auto) Urine Creatinine Hepatitis C Antibody 11/22/20 11/22/20 11/22/20 01:37 03:20 05:00 WBC RBC Hgb Hct MCV Lymph % (Auto) Garza % (Auto) Lymph # (Auto) Garza # (Auto) Seg Neutrophils % Seg Neuts % (Manual) Nucleated RBC % Seg Neutrophils # Seg Neutrophils # Man Lymphocytes # (Manual) ABG pH POC ABG pCO2 58.4 H POC ABG pO2 ABG Hemoglobin 11.1 L ABG Sodium 135.1 L ABG Potassium 5.0 H ABG Glucose Carboxyhemoglobin Sodium Potassium 5.1 H Chloride Carbon Dioxide 31 H BUN 40 H Creatinine 2.0 H Glucose 49 L POC Glucose Lactic Acid Calcium Phosphorus AST ALT CK-MB (CK-2) Rel Index Troponin T NT-Pro-B Natriuret Pep Total Protein Albumin HDL Cholesterol Arterial Blood Glucose Arterial Blood Ionized Calcium Urine WBC (Auto) 33.0 H Urine Creatinine Hepatitis C Antibody 11/22/20 11/22/20 11/22/20 05:00 05:00 05:00 WBC RBC Hgb Hct MCV Lymph % (Auto) Garza % (Auto) Lymph # (Auto) Garza # (Auto) Seg Neutrophils % Seg Neuts % (Manual) Nucleated RBC % Seg Neutrophils # Seg Neutrophils # Man Lymphocytes # (Manual) ABG pH POC ABG pCO2 POC ABG pO2 ABG Hemoglobin ABG Sodium ABG Potassium ABG Glucose Carboxyhemoglobin Sodium 136 L Potassium Chloride 97.8 L Carbon Dioxide BUN 41 H Creatinine 1.8 H 1.8 H Glucose POC Glucose Lactic Acid Calcium 8.2 L Phosphorus AST ALT CK-MB (CK-2) Rel Index Troponin T 0.065 H D NT-Pro-B Natriuret Pep Total Protein Albumin HDL Cholesterol Arterial Blood Glucose Arterial Blood Ionized Calcium Urine WBC (Auto) Urine Creatinine Hepatitis C Antibody 11/22/20 11/22/20 11/22/20 10:20 10:20 15:00 WBC RBC 3.16 L Hgb 10.2 L Hct 29.9 L MCV 95 H Lymph % (Auto) Garza % (Auto) Lymph # (Auto) Garza # (Auto) Seg Neutrophils % Seg Neuts % (Manual) Nucleated RBC % Seg Neutrophils # Seg Neutrophils # Man Lymphocytes # (Manual) ABG pH 7.501 H POC ABG pCO2 POC ABG pO2 ABG Hemoglobin 10.5 L ABG Sodium 134.9 L ABG Potassium ABG Glucose 115 H Carboxyhemoglobin 0.4 L Sodium Potassium Chloride Carbon Dioxide BUN Creatinine Glucose POC Glucose Lactic Acid Calcium Phosphorus AST ALT CK-MB (CK-2) Rel Index Troponin T 0.078 H NT-Pro-B Natriuret Pep Total Protein Albumin HDL Cholesterol Arterial Blood Glucose 115 H Arterial Blood Ionized Calcium 4.3 L Urine WBC (Auto) Urine Creatinine Hepatitis C Antibody 11/22/20 11/22/20 11/22/20 16:00 17:45 23:21 WBC RBC Hgb Hct MCV Lymph % (Auto) Garza % (Auto) Lymph # (Auto) Garza # (Auto) Seg Neutrophils % Seg Neuts % (Manual) Nucleated RBC % Seg Neutrophils # Seg Neutrophils # Man Lymphocytes # (Manual) ABG pH POC ABG pCO2 POC ABG pO2 ABG Hemoglobin ABG Sodium ABG Potassium ABG Glucose Carboxyhemoglobin Sodium Potassium Chloride Carbon Dioxide BUN Creatinine Glucose POC Glucose 107 H 115 H Lactic Acid Calcium Phosphorus AST ALT CK-MB (CK-2) Rel Index Troponin T NT-Pro-B Natriuret Pep Total Protein Albumin HDL Cholesterol Arterial Blood Glucose Arterial Blood Ionized Calcium Urine WBC (Auto) Urine Creatinine Hepatitis C Antibody Reactive A 11/23/20 11/23/20 11/23/20 03:03 05:33 10:00 WBC RBC 3.33 L Hgb 10.6 L Hct 32.2 L MCV 97 H Lymph % (Auto) Garza % (Auto) 15.0 H Lymph # (Auto) Garza # (Auto) 1.5 H Seg Neutrophils % Seg Neuts % (Manual) Nucleated RBC % Seg Neutrophils # Seg Neutrophils # Man Lymphocytes # (Manual) ABG pH POC ABG pCO2 POC ABG pO2 115.8 H ABG Hemoglobin 10.1 L ABG Sodium 135.8 L ABG Potassium ABG Glucose 98 H Carboxyhemoglobin 0.4 L Sodium Potassium Chloride Carbon Dioxide BUN Creatinine Glucose POC Glucose 106 H Lactic Acid Calcium Phosphorus AST ALT CK-MB (CK-2) Rel Index Troponin T NT-Pro-B Natriuret Pep Total Protein Albumin HDL Cholesterol Arterial Blood Glucose 98 H Arterial Blood Ionized Calcium 4.4 L Urine WBC (Auto) Urine Creatinine Hepatitis C Antibody 11/23/20 11/23/20 11/23/20 10:00 12:12 18:21 WBC RBC Hgb Hct MCV Lymph % (Auto) Garza % (Auto) Lymph # (Auto) Garza # (Auto) Seg Neutrophils % Seg Neuts % (Manual) Nucleated RBC % Seg Neutrophils # Seg Neutrophils # Man Lymphocytes # (Manual) ABG pH POC ABG pCO2 POC ABG pO2 ABG Hemoglobin ABG Sodium ABG Potassium ABG Glucose Carboxyhemoglobin Sodium Potassium Chloride Carbon Dioxide BUN 22 H Creatinine Glucose 101 H POC Glucose 119 H 106 H Lactic Acid Calcium 7.9 L Phosphorus AST ALT CK-MB (CK-2) Rel Index Troponin T NT-Pro-B Natriuret Pep Total Protein 5.5 L Albumin 2.8 L HDL Cholesterol Arterial Blood Glucose Arterial Blood Ionized Calcium Urine WBC (Auto) Urine Creatinine Hepatitis C Antibody 11/23/20 11/24/20 11/24/20 23:28 01:48 09:58 WBC RBC Hgb Hct MCV Lymph % (Auto) Garza % (Auto) Lymph # (Auto) Garza # (Auto) Seg Neutrophils % Seg Neuts % (Manual) Nucleated RBC % Seg Neutrophils # Seg Neutrophils # Man Lymphocytes # (Manual) ABG pH 7.281 L POC ABG pCO2 58.4 H POC ABG pO2 ABG Hemoglobin 11.8 L ABG Sodium ABG Potassium ABG Glucose 101 H Carboxyhemoglobin Sodium 148 H Potassium Chloride Carbon Dioxide 34 H D BUN Creatinine Glucose POC Glucose 108 H Lactic Acid Calcium Phosphorus AST ALT CK-MB (CK-2) Rel Index Troponin T NT-Pro-B Natriuret Pep Total Protein Albumin HDL Cholesterol Arterial Blood Glucose 101 H Arterial Blood Ionized Calcium Urine WBC (Auto) Urine Creatinine Hepatitis C Antibody 11/24/20 11/25/20 11/25/20 09:58 00:29 05:48 WBC RBC Hgb Hct MCV Lymph % (Auto) Garza % (Auto) Lymph # (Auto) Garza # (Auto) Seg Neutrophils % Seg Neuts % (Manual) Nucleated RBC % Seg Neutrophils # Seg Neutrophils # Man Lymphocytes # (Manual) ABG pH POC ABG pCO2 POC ABG pO2 ABG Hemoglobin ABG Sodium ABG Potassium ABG Glucose Carboxyhemoglobin Sodium Potassium Chloride Carbon Dioxide BUN Creatinine Glucose POC Glucose 111 H 148 H Lactic Acid 0.60 L Calcium Phosphorus AST ALT CK-MB (CK-2) Rel Index Troponin T NT-Pro-B Natriuret Pep Total Protein Albumin HDL Cholesterol Arterial Blood Glucose Arterial Blood Ionized Calcium Urine WBC (Auto) Urine Creatinine Hepatitis C Antibody 11/25/20 11/25/20 11/25/20 08:18 08:18 11:34 WBC 13.2 H RBC 3.56 L Hgb 10.9 L Hct 34.0 L MCV 96 H Lymph % (Auto) Garza % (Auto) Lymph # (Auto) Garza # (Auto) Seg Neutrophils % Seg Neuts % (Manual) 98.0 H Nucleated RBC % 1.0 H Seg Neutrophils # Seg Neutrophils # Man 12.9 H Lymphocytes # (Manual) 0.0 L ABG pH POC ABG pCO2 POC ABG pO2 ABG Hemoglobin ABG Sodium ABG Potassium ABG Glucose Carboxyhemoglobin Sodium 147 H Potassium Chloride Carbon Dioxide 32 H BUN 26 H Creatinine Glucose 151 H POC Glucose 144 H Lactic Acid Calcium Phosphorus AST ALT CK-MB (CK-2) Rel Index Troponin T NT-Pro-B Natriuret Pep Total Protein 6.0 L Albumin 3.7 L HDL Cholesterol Arterial Blood Glucose Arterial Blood Ionized Calcium Urine WBC (Auto) Urine Creatinine Hepatitis C Antibody 11/25/20 11/25/20 11/26/20 18:03 23:15 05:07 WBC RBC Hgb Hct MCV Lymph % (Auto) Garza % (Auto) Lymph # (Auto) Garza # (Auto) Seg Neutrophils % Seg Neuts % (Manual) Nucleated RBC % Seg Neutrophils # Seg Neutrophils # Man Lymphocytes # (Manual) ABG pH POC ABG pCO2 POC ABG pO2 ABG Hemoglobin ABG Sodium ABG Potassium ABG Glucose Carboxyhemoglobin Sodium Potassium Chloride Carbon Dioxide BUN Creatinine Glucose POC Glucose 147 H 158 H 184 H Lactic Acid Calcium Phosphorus AST ALT CK-MB (CK-2) Rel Index Troponin T NT-Pro-B Natriuret Pep Total Protein Albumin HDL Cholesterol Arterial Blood Glucose Arterial Blood Ionized Calcium Urine WBC (Auto) Urine Creatinine Hepatitis C Antibody 11/26/20 11/26/20 11/26/20 06:22 06:22 12:52 WBC 12.3 H RBC 3.52 L Hgb 11.1 L Hct 33.6 L MCV 95 H Lymph % (Auto) Garza % (Auto) Lymph # (Auto) Garza # (Auto) Seg Neutrophils % Seg Neuts % (Manual) Nucleated RBC % Seg Neutrophils # Seg Neutrophils # Man Lymphocytes # (Manual) ABG pH POC ABG pCO2 POC ABG pO2 ABG Hemoglobin ABG Sodium ABG Potassium ABG Glucose Carboxyhemoglobin Sodium Potassium 3.3 L Chloride 95.8 L Carbon Dioxide 33 H BUN 35 H Creatinine 1.4 H Glucose 185 H POC Glucose 170 H Lactic Acid Calcium Phosphorus AST ALT CK-MB (CK-2) Rel Index Troponin T 0.036 H D NT-Pro-B Natriuret Pep Total Protein 6.2 L Albumin 3.1 L HDL Cholesterol Arterial Blood Glucose Arterial Blood Ionized Calcium Urine WBC (Auto) Urine Creatinine Hepatitis C Antibody 11/26/20 11/26/20 11/27/20 17:30 23:14 05:35 WBC RBC Hgb Hct MCV Lymph % (Auto) Garza % (Auto) Lymph # (Auto) Garza # (Auto) Seg Neutrophils % Seg Neuts % (Manual) Nucleated RBC % Seg Neutrophils # Seg Neutrophils # Man Lymphocytes # (Manual) ABG pH POC ABG pCO2 POC ABG pO2 ABG Hemoglobin ABG Sodium ABG Potassium ABG Glucose Carboxyhemoglobin Sodium Potassium Chloride Carbon Dioxide BUN Creatinine Glucose POC Glucose 133 H 149 H 135 H Lactic Acid Calcium Phosphorus AST ALT CK-MB (CK-2) Rel Index Troponin T NT-Pro-B Natriuret Pep Total Protein Albumin HDL Cholesterol Arterial Blood Glucose Arterial Blood Ionized Calcium Urine WBC (Auto) Urine Creatinine Hepatitis C Antibody 11/27/20 11/27/20 11/27/20 08:03 12:02 18:41 WBC RBC Hgb Hct MCV Lymph % (Auto) Garza % (Auto) Lymph # (Auto) Garza # (Auto) Seg Neutrophils % Seg Neuts % (Manual) Nucleated RBC % Seg Neutrophils # Seg Neutrophils # Man Lymphocytes # (Manual) ABG pH POC ABG pCO2 POC ABG pO2 ABG Hemoglobin ABG Sodium ABG Potassium ABG Glucose Carboxyhemoglobin Sodium Potassium Chloride 97.0 L Carbon Dioxide 31 H BUN 41 H Creatinine 1.4 H Glucose 145 H POC Glucose 139 H 148 H Lactic Acid Calcium Phosphorus 2.20 L AST ALT CK-MB (CK-2) Rel Index Troponin T NT-Pro-B Natriuret Pep Total Protein Albumin HDL Cholesterol Arterial Blood Glucose Arterial Blood Ionized Calcium Urine WBC (Auto) Urine Creatinine Hepatitis C Antibody 11/28/20 11/28/20 05:26 06:08 WBC RBC Hgb Hct MCV Lymph % (Auto) Garza % (Auto) Lymph # (Auto) Garza # (Auto) Seg Neutrophils % Seg Neuts % (Manual) Nucleated RBC % Seg Neutrophils # Seg Neutrophils # Man Lymphocytes # (Manual) ABG pH POC ABG pCO2 POC ABG pO2 ABG Hemoglobin ABG Sodium ABG Potassium ABG Glucose Carboxyhemoglobin Sodium Potassium Chloride Carbon Dioxide BUN 45 H Creatinine 1.4 H Glucose 135 H POC Glucose 143 H Lactic Acid Calcium Phosphorus AST ALT CK-MB (CK-2) Rel Index Troponin T NT-Pro-B Natriuret Pep Total Protein Albumin HDL Cholesterol Arterial Blood Glucose Arterial Blood Ionized Calcium Urine WBC (Auto) Urine Creatinine Hepatitis C Antibody
--- NOTE | 2020-11-28 12:29 | Progress Note ---
Subjective Date of service: 11/28/20 Principal diagnosis: Acute respiratory failure Interval history: Impression * Acute kidney injury * Severe hyperkalemia * Respiratory failure * Coronary artery disease * Hypertension * COPD * Bladder cancer * Hepatitis C Recommendations * Hyperkalemia has been corrected with aggressive medical management. * Renal function is stable today, cr noted, hold lasix and follow up. Patient is also currently nonoliguric * Na noted, better today, stop D5w, hold lasix, give prn only * hypokalemia noted, likely due to duresis, follow up am lytes * Albumin of 3.1, give albumin with lasix if needed * His urine shows 1+ dipstick protein and large blood. Fractional excretion of sodium is 0.4%. He most likely has a prerenal component. However given his microhematuria need to rule out vasculitis. Vasculitis work-up as ordered * Renal ultrasound shows atrophic left kidney. No obstruction. * Monitor fluid status and electrolytes closely * Avoid nephrotoxins Subjective Principal diagnosis: abnl trop Interval history: Patient has been extubated. Is currently on BiPAP with 40% FiO2. Oxygen saturation is 97%. IV fluid infusing. Objective - General Appearance General appearance: well-developed, well-nourished, appears stated age, other (Lethargic. Not answering questions or following commands) EENT: PERRL, mucous membranes moist Neck: no JVD, no thyromegaly Respiratory: Present: Ronchi (Few scattered rhonchi) Cardiology: regular, normal heart rate Gastrointestinal: normal, normoactive bowel sounds Integumentary: other (No edema) Objective - Vital Signs Vital signs: Vital Signs - 12hr 11/28/20 11/28/20 11/28/20 00:30 00:52 01:10 Temperature Pulse Rate 64 62 74 Pulse Rate [ Anterior Bilateral Throughout] Pulse Rate [ From Monitor] Respiratory 28 H 24 23 Rate Respiratory Rate [Anterior Bilateral Throughout] Respiratory Rate [ Generalized] Blood Pressure 173/85 173/85 121/93 O2 Sat by Pulse 97 98 94 Oximetry 11/28/20 11/28/20 11/28/20 01:12 01:20 01:40 Temperature Pulse Rate 64 66 Pulse Rate [ 84 Anterior Bilateral Throughout] Pulse Rate [ From Monitor] Respiratory 25 H 22 Rate Respiratory 20 Rate [Anterior Bilateral Throughout] Respiratory Rate [ Generalized] Blood Pressure 121/93 186/73 O2 Sat by Pulse 94 97 96 Oximetry 11/28/20 11/28/20 11/28/20 02:00 03:10 03:50 Temperature Pulse Rate 62 65 64 Pulse Rate [ Anterior Bilateral Throughout] Pulse Rate [ From Monitor] Respiratory 26 H 18 27 H Rate Respiratory Rate [Anterior Bilateral Throughout] Respiratory Rate [ Generalized] Blood Pressure 158/95 174/69 148/71 O2 Sat by Pulse 97 96 98 Oximetry 11/28/20 11/28/20 11/28/20 04:00 04:04 04:10 Temperature 98.6 F Pulse Rate 65 64 Pulse Rate [ Anterior Bilateral Throughout] Pulse Rate [ 65 From Monitor] Respiratory 28 H 23 Rate Respiratory Rate [Anterior Bilateral Throughout] Respiratory Rate [ Generalized] Blood Pressure 148/71 O2 Sat by Pulse 93 98 Oximetry 11/28/20 11/28/20 11/28/20 04:15 04:35 04:45 Temperature Pulse Rate 66 63 Pulse Rate [ Anterior Bilateral Throughout] Pulse Rate [ From Monitor] Respiratory Rate Respiratory Rate [Anterior Bilateral Throughout] Respiratory Rate [ Generalized] Blood Pressure 193/91 O2 Sat by Pulse 91 Oximetry 11/28/20 11/28/20 11/28/20 05:00 05:22 06:00 Temperature Pulse Rate 60 73 60 Pulse Rate [ Anterior Bilateral Throughout] Pulse Rate [ From Monitor] Respiratory 23 30 H Rate Respiratory Rate [Anterior Bilateral Throughout] Respiratory Rate [ Generalized] Blood Pressure 174/90 137/53 139/65 O2 Sat by Pulse 96 97 Oximetry 11/28/20 11/28/20 11/28/20 07:00 08:00 08:35 Temperature Pulse Rate 55 L 55 L Pulse Rate [ Anterior Bilateral Throughout] Pulse Rate [ 65 From Monitor] Respiratory 22 20 Rate Respiratory Rate [Anterior Bilateral Throughout] Respiratory Rate [ Generalized] Blood Pressure 136/74 160/65 O2 Sat by Pulse 95 96 97 Oximetry 11/28/20 11/28/20 11/28/20 09:00 10:00 11:00 Temperature Pulse Rate 56 L 62 54 L Pulse Rate [ Anterior Bilateral Throughout] Pulse Rate [ From Monitor] Respiratory 24 29 H 22 Rate Respiratory Rate [Anterior Bilateral Throughout] Respiratory 20 Rate [ Generalized] Blood Pressure 166/71 161/119 161/66 O2 Sat by Pulse 95 97 97 Oximetry - Lab 11/28/20 09:21 11/28/20 06:08 Most recent lab results ABG pH 7.281 (7.320-7.450) L 11/24/20 01:48 ABG O2 Saturation 96.9 (0-100) 11/24/20 01:48 Calcium 9.1 mg/dL (8.4-10.2) 11/28/20 06:08 Phosphorus 2.20 mg/dL (2.5-4.5) L 11/27/20 08:03 Magnesium 2.10 mg/dL (1.7-2.3) 11/27/20 08:03 Urine Creatinine 158.2 mg/dL (0.1-20.0) H 11/22/20 00:11 Urine Sodium 39 mmol/L 11/22/20 00:11 Medications & Allergies - Medications Allergies/Adverse Reactions: Allergies No Known Allergies Allergy (Verified 11/11/18 08:08) Home Medications: Home Medications Medication Instructions Recorded Confirmed Last Taken Type Pantoprazole [Protonix TAB] 40 mg PO QDAY #30 tablet 04/11/19 11/22/20 Unknown Rx AtorvaSTATin 20 mg PO QHS 06/13/19 11/22/20 06/12/19 21:00 History Tamsulosin 0.4 mg PO DAILY 06/13/19 11/22/20 06/12/19 21:00 History carvediloL [Coreg] 3.125 mg PO BID 06/13/19 11/22/20 06/11/19 21:00 History Gabapentin 300 mg PO BID 11/22/20 11/22/20 Unknown History Active Medications: Generic Name Dose Route Start Last Admin Trade Name Freq PRN Reason Stop Dose Admin Acetaminophen 650 mg 11/23/20 15:29 Acetaminophen 325 Mg Tab PO Q4H PRN Pain, Mild (1-3) Albuterol 2.5 mg 11/22/20 01:19 Albuterol 2.5 Mg/3 Ml Nebu IH Q4HRT PRN Shortness Of Breath Albuterol/Ipratropium 1 ampul 11/22/20 02:00 11/28/20 08:34 Ipratropium/Albuterol Sulfate 3 Ml Ampul.Neb IH Not Given Q6HRT [facility] Lipase/Protease/Amylase 1 each 11/22/20 09:07 Lipase 10,500/Protease 25,000/Amylase 43,750 (Units) Dr Cap FEEDTUBE PRN PRN For Clogged Feeding Tube Aspirin 81 mg 11/23/20 10:00 11/28/20 09:55 Aspirin 81 Mg Tab Chew PO 81 mg QDAY [facility] Administration Atorvastatin Calcium 40 mg 11/22/20 22:00 11/27/20 22:15 Atorvastatin 40 Mg Tab PO 40 mg QHS [facility] Administration Budesonide 0.5 mg 11/24/20 14:55 11/28/20 08:34 Budesonide 0.5 Mg/2 Ml Nebu IH Not Given Q12HRT [facility] Haloperidol Lactate 5 mg 11/25/20 09:00 11/27/20 05:34 Haloperidol Lactate 5 Mg/1 Ml Inj IV 5 mg Q6H PRN Administration Agitation Heparin Sodium (Porcine) 5,000 unit 11/22/20 06:00 11/28/20 05:28 Heparin 5,000 Unit/1 Ml Vial SUB-Q 5,000 unit Q8HR [facility] Administration Hydralazine HCl 10 mg 11/22/20 01:24 11/28/20 04:35 Hydralazine 20 Mg/1 Ml Inj IV 10 mg Q6H PRN Administration Blood Pressure Hydrophilic Ointment 1 applic 11/22/20 00:38 Lip Therapy Vaseline TP Q2HR PRN Dry Lips Dexmedetomidine HCl 400 mcg/ 104 mls @ 4.228 mls/hr 11/25/20 10:00 11/28/20 1 1:41 Sodium Chloride IV Infused TITRATE [facility] Titration Protocol 0.2 MCG/KG/HR Lansoprazole 30 mg 11/28/20 10:00 11/28/20 09:56 Lansoprazole 30 Mg Solutab FEEDTUBE 30 mg QDAY [facility] Administration Methylprednisolone Sodium Succinate 40 mg 11/27/20 14:00 11/28/20 05:24 Methylprednisolone Sod Succinate 125 Mg/2 Ml Inj IV 40 mg Q8HR [facility] Administration Metoprolol Tartrate 5 mg 11/25/20 12:00 11/28/20 11:47 Metoprolol Tartrate 5 Mg/5 Ml Inj IV Not Given Q6HR [facility] Multi-Ingred Cream/Lotion/Oil/Oint 1 applic 11/22/20 00:38 Mineral Oil/Petrolatum, White Ophth Oint 3.5 Gm OU Q4HR PRN Dry Eye(s) Nitroglycerin 0.4 mg 11/22/20 01:25 Nitroglycerin 0.4 Mg Tab Subl SL Q5M PRN Chest Pain Ondansetron HCl 4 mg 11/22/20 01:19 Ondansetron 4 Mg/2 Ml Inj IV Q8H PRN Nausea And Vomiting Quetiapine Fumarate 25 mg 11/27/20 12:00 11/28/20 09:55 Quetiapine 25 Mg Tab PO 25 mg BID [facility] Administration Senna/Docusate Sodium 1 tab 11/22/20 10:00 11/28/20 09:55 Sennosides/Docusate Sodium 8.6/50 Mg Tab FEEDTUBE 1 tab BID [facility] Administration Simple Syrup 15 ml 11/22/20 09:07 Simple Syrup 15 Ml FEEDTUBE PRN PRN Hypoglycemia Simple Syrup 30 ml 11/22/20 09:07 Simple Syrup 15 Ml FEEDTUBE PRN PRN Hypoglycemia Sodium Bicarbonate 325 mg 11/22/20 09:07 Sodium Bicarbonate 325 Mg Tab FEEDTUBE PRN PRN For Clogged Feeding Tube Sodium Chloride 10 ml 11/22/20 10:00 11/28/20 09:56 Sodium Chloride 0.9% 10 Ml Flush Syringe IV 10 ml BID [facility] Administration Sodium Chloride 10 ml 11/22/20 01:19 Sodium Chloride 0.9% 10 Ml Flush Syringe IV PRN PRN LINE FLUSH Tamsulosin HCl 0.4 mg 11/22/20 10:00 11/28/20 09:55 Tamsulosin 0.4 Mg Cap PO 0.4 mg DAILY [facility] Administration
--- NOTE | 2020-11-28 14:47 | Progress Note ---
Assessment and Plan NSTEMI suspect type II with history of coronary artery disease post CABG * Elevated troponin has been trending downward and is currently negative x2. We will continue to trend CE's * Echocardiogram reviewed (11/22/2020): LVEF is 50 to 55%. LV is normal size. LV SF is normal. Mild diastolic dysfunction. RV SF is normal. Mild aortic sten osis: Highest mean AV gradient is 12.37 mmHg. Moderate mitral stenosis. Severe pulmonary hypertension RVSP 74 mmHg, mild TR. * Hx Mitral Valve Repair (2004). Consider HECTOR if further characterization of Mitral Stenosis is requested. Pulm HTN * Pulmonology is following. Hypertension with bradycardia * Recommend avoid AV selena blocking agents. Continue to monitor on telemetry. Cardiology is consulted for elevated troponins. Troponins are currently negative x2. Patient is in stable cardiac status. Will follow as needed over the weekend Pt seen in conjunction with Dr. Whitfield, who agrees with the assessment and plan of care. - Patient Problems (1) Acute metabolic encephalopathy Current Visit: Yes Status: Acute (2) Acute and chronic respiratory failure ([id number]) Current Visit: Yes Status: Acute Qualifiers: Respiratory failure complication: hypoxia Qualified Code(s): J96.21 - Acute and chronic respiratory failure with hypoxia (3) COPD (chronic obstructive pulmonary disease) Current Visit: Yes Status: Chronic (4) Pulmonary hypertension Current Visit: Yes Status: Chronic (5) Acute kidney injury Current Visit: Yes Status: Acute (6) Anemia Current Visit: Yes Status: Chronic (7) NSTEMI (non-ST elevated myocardial infarction) Current Visit: Yes Status: Acute Plan to address problem: Type 2 (8) CAD (coronary artery disease) Current Visit: Yes Status: Chronic Qualifiers: Coronary Disease-Associated Artery/Lesion type: [place] artery [place] vs. transplanted heart: [place] heart (9) History of coronary artery bypass graft Current Visit: Yes Status: Chronic (10) S/P mitral valve repair Current Visit: Yes Status: Chronic Plan to address problem: 2005 (11) Hypertension Current Visit: Yes Status: Chronic Qualifiers: Hypertension type: primary hypertension Qualified Code(s): I10 - Essential (primary) hypertension (12) Type 2 diabetes mellitus Current Visit: Yes Status: Chronic Qualifiers: Qualified Code(s): E11.9 - Type 2 diabetes mellitus without complications (13) Carotid stenosis Current Visit: Yes Status: Chronic Qualifiers: Laterality: right Qualified Code(s): I65.21 - Occlusion and stenosis of right carotid artery (14) S/P carotid endarterectomy Current Visit: Yes Status: Chronic (15) H/O: GI bleed Current Visit: Yes Status: Chronic Subjective Date of service: 11/28/20 Principal diagnosis: Acute respiratory failure Interval history: Patient resting in bed, altered mental status and agitated under sedation, unable to answer questions. Telemetry reviewed: Sinus bradycardia 58 with frequent PACs. No events Objective Last Vital Signs Temp 98.6 F 11/28/20 04:04 Pulse 46 L 11/28/20 13:00 Resp 21 11/28/20 13:00 BP 148/70 11/28/20 13:00 Pulse Ox 98 11/28/20 13:08 - Physical Examination General: Other (agitated, altered mental status) HEENT: Positive: EOMI, Normocephaly Neck: Positive: neck supple, trachea midline. Negative: JVD/HJR Cardiac: Positive: Regular Rhythm, S1/S2 Lungs: Positive: Normal Breath Sounds Neuro: Positive: Other (agitated, AMS) Abdomen: Positive: Soft Skin: Negative: Rash Musculoskeletal: other (Altered mental status) Extremities: Present: lower extr. pulses. Absent: edema - Labs and Meds CBC 11/28/20 Range/Units 09:21 WBC 9.8 (4.5-11.0) K/mm3 RBC 4.01 (3.65-5.03) M/mm3 Hgb 12.3 (11.8-15.2) gm/dl Hct 37.6 (35.5-45.6) % Plt Count 369 (140-440) K/mm3 Comprehensive Metabolic Panel 11/28/20 Range/Units 06:08 Sodium 140 (137-145) mmol/L Potassium 4.8 (3.6-5.0) mmol/L Chloride 99.6 (98-107) mmol/L Carbon Dioxide 30 (22-30) mmol/L BUN 45 H (9-20) mg/dL Creatinine 1.4 H (0.8-1.3) mg/dL Glucose 135 H (75-100) mg/dL Calcium 9.1 (8.4-10.2) mg/dL - Imaging and Cardiology EKG: report reviewed, image reviewed Nuclear stress test: report reviewed (05/2019 normal myocardial perfusion scan) Echo: report reviewed (Echocardiogram reviewed (11/22/2020): LVEF is 50 to 55%. LV is normal size. LV SF is normal. Mild diastolic dysfunction. RV SF is normal. Mild aortic stenosis: Highest mean AV gradient is 12.37 mmHg. Moderate mitral stenosis. Severe pulmonary hypertension RVSP 74 mmHg, mild TR.), other (05/2019 - normal LV function, mild mitral stenosis) - Telemetry EKG Rhythm: Sinus Bradycardia - EKG Sinus rhythms and dysrhythmias: sinus rhythm Repolarization changes or abnormalities: nonspecific abnormality, ST segment, and/or T wave
[2020-11-28 18:21] LABS: Albumin 2.8 g/dL (3.8-4.8); Gamma Globulin 0.7 g/dL (0.8-1.7)
[2020-11-29] MEDS: IPRATROPIUM/ALBUTEROL SULFATE 3 ML AMPUL.NEB IH SCH ×4 (03:16→19:52)
[2020-11-29 05:18] LABS: Calcium 8.8 mg/dL (8.4-10.2)
[2020-11-29] MEDS: methylPREDNISolone Sod Succinate 125 MG/2 ML INJ IV SCH ×4 (05:27→21:16)
[2020-11-29] MEDS: METOPROLOL TARTRATE 5 MG/5 ML INJ IV SCH ×4 (05:29→23:35)
[2020-11-29] MEDS: HEPARIN 5,000 UNIT/1 ML VIAL SUB-Q SCH ×3 (05:30→21:13)
[2020-11-29] MEDS: BUDESONIDE 0.5 MG/2 ML NEBU IH SCH ×2 (08:58→19:52)
[2020-11-29] MEDS: LANSOPRAZOLE 30 MG SOLUTAB FEEDTUBE SCH (09:22)
[2020-11-29] MEDS: TAMSULOSIN 0.4 MG CAP PO SCH (09:22)
[2020-11-29] MEDS: ASPIRIN 81 MG TAB CHEW PO SCH (09:22)
[2020-11-29] MEDS: SENNOSIDES/DOCUSATE SODIUM 8.6/50 MG TAB FEEDTUBE SCH ×2 (09:23→21:13)
[2020-11-29] MEDS: QUEtiapine 25 MG TAB PO SCH ×2 (09:23→21:13)
--- NOTE | 2020-11-29 11:07 | Progress Note ---
Subjective Date of service: 11/29/20 Principal diagnosis: Acute respiratory failure Interval history: Impression * Acute kidney injury * Severe hyperkalemia * Respiratory failure * Coronary artery disease * Hypertension * COPD * Bladder cancer * Hepatitis C Recommendations * Hyperkalemia has been corrected with aggressive medical management. * Renal function is stable today, cr noted, Patient is also currently nonoliguric * Albumin of 3.1, give albumin with lasix today * His urine shows 1+ dipstick protein and large blood. Fractional excretion of sodium is 0.4%. He most likely has a prerenal component. However given his microhematuria need to rule out vasculitis. Vasculitis work-up as ordered * Renal ultrasound shows atrophic left kidney. No obstruction. * Monitor fluid status and electrolytes closely * Avoid nephrotoxins Subjective Principal diagnosis: abnl trop Interval history: Patient has been extubated. Is currently on BiPAP with 40% FiO2. Oxygen saturation is 97%. IV fluid infusing. Objective - General Appearance General appearance: well-developed, well-nourished, appears stated age, other (Lethargic. Not answering questions or following commands) EENT: PERRL, mucous membranes moist Neck: no JVD, no thyromegaly Respiratory: Present: Ronchi (Few scattered rhonchi) Cardiology: regular, normal heart rate Gastrointestinal: normal, normoactive bowel sounds Integumentary: other (No edema) Objective - Vital Signs Vital signs: Vital Signs - 12hr 11/28/20 11/28/20 11/29/20 23:18 23:43 00:00 Temperature 98.0 F Pulse Rate 113 H 112 H 90 Pulse Rate [ Anterior Bilateral Throughout] Respiratory 17 18 Rate Respiratory Rate [Anterior Bilateral Throughout] Blood Pressure 134/67 126/61 151/65 O2 Sat by Pulse 87 93 Oximetry 11/29/20 11/29/20 11/29/20 00:02 01:00 02:00 Temperature Pulse Rate 90 92 H 87 Pulse Rate [ Anterior Bilateral Throughout] Respiratory 19 16 Rate Respiratory Rate [Anterior Bilateral Throughout] Blood Pressure 154/70 144/68 O2 Sat by Pulse 95 94 Oximetry 11/29/20 11/29/20 11/29/20 03:00 03:17 03:52 Temperature 98.0 F Pulse Rate 85 Pulse Rate [ 84 Anterior Bilateral Throughout] Respiratory 19 Rate Respiratory 23 Rate [Anterior Bilateral Throughout] Blood Pressure 140/75 O2 Sat by Pulse 92 Oximetry 11/29/20 11/29/20 11/29/20 04:00 04:06 05:00 Temperature Pulse Rate 85 83 83 Pulse Rate [ Anterior Bilateral Throughout] Respiratory 17 25 H Rate Respiratory Rate [Anterior Bilateral Throughout] Blood Pressure 126/72 145/98 O2 Sat by Pulse 94 94 Oximetry 11/29/20 11/29/20 11/29/20 05:29 06:01 07:01 Temperature Pulse Rate 85 75 78 Pulse Rate [ Anterior Bilateral Throughout] Respiratory 22 12 Rate Respiratory Rate [Anterior Bilateral Throughout] Blood Pressure 152/80 186/89 177/76 O2 Sat by Pulse 96 94 Oximetry 11/29/20 11/29/20 07:55 08:58 Temperature 98 F Pulse Rate Pulse Rate [ 76 Anterior Bilateral Throughout] Respiratory Rate Respiratory 18 Rate [Anterior Bilateral Throughout] Blood Pressure O2 Sat by Pulse 94 Oximetry - Lab 11/28/20 09:21 11/29/20 04:43 Most recent lab results ABG pH 7.281 (7.320-7.450) L 11/24/20 01:48 ABG O2 Saturation 96.9 (0-100) 11/24/20 01:48 Calcium 8.8 mg/dL (8.4-10.2) 11/29/20 04:43 Phosphorus 2.20 mg/dL (2.5-4.5) L 11/27/20 08:03 Magnesium 2.10 mg/dL (1.7-2.3) 11/27/20 08:03 Urine Creatinine 158.2 mg/dL (0.1-20.0) H 11/22/20 00:11 Urine Sodium 39 mmol/L 11/22/20 00:11 Medications & Allergies - Medications Allergies/Adverse Reactions: Allergies No Known Allergies Allergy (Verified 11/11/18 08:08) Home Medications: Home Medications Medication Instructions Recorded Confirmed Last Taken Type Pantoprazole [Protonix TAB] 40 mg PO QDAY #30 tablet 04/11/19 11/22/20 Unknown Rx AtorvaSTATin 20 mg PO QHS 06/13/19 11/22/20 06/12/19 21:00 History Tamsulosin 0.4 mg PO DAILY 06/13/19 11/22/20 06/12/19 21:00 History carvediloL [Coreg] 3.125 mg PO BID 06/13/19 11/22/20 06/11/19 21:00 History Gabapentin 300 mg PO BID 11/22/20 11/22/20 Unknown History Active Medications: Generic Name Dose Route Start Last Admin Trade Name Freq PRN Reason Stop Dose Admin Acetaminophen 650 mg 11/23/20 15:29 Acetaminophen 325 Mg Tab PO Q4H PRN Pain, Mild (1-3) Albuterol 2.5 mg 11/22/20 01:19 Albuterol 2.5 Mg/3 Ml Nebu IH Q4HRT PRN Shortness Of Breath Albuterol/Ipratropium 1 ampul 11/22/20 02:00 11/29/20 08:58 Ipratropium/Albuterol Sulfate 3 Ml Ampul.Neb IH 1 ampul Q6HRT [facility] Administration Lipase/Protease/Amylase 1 each 11/22/20 09:07 Lipase 10,500/Protease 25,000/Amylase 43,750 (Units) Dr Cyr FEEDTUBE PRN PRN For Clogged Feeding Tube Aspirin 81 mg 11/23/20 10:00 11/29/20 09:22 Aspirin 81 Mg Tab Chew PO 81 mg QDAY [facility] Administration Atorvastatin Calcium 40 mg 11/22/20 22:00 11/28/20 21:41 Atorvastatin 40 Mg Tab PO 40 mg QHS [facility] Administration Budesonide 0.5 mg 11/24/20 14:55 11/29/20 08:58 Budesonide 0.5 Mg/2 Ml Nebu IH 0.5 mg Q12HRT [facility] Administration Haloperidol Lactate 5 mg 11/25/20 09:00 11/27/20 05:34 Haloperidol Lactate 5 Mg/1 Ml Inj IV 5 mg Q6H PRN Administration Agitation Heparin Sodium (Porcine) 5,000 unit 11/22/20 06:00 11/29/20 05:30 Heparin 5,000 Unit/1 Ml Vial SUB-Q 5,000 unit Q8HR [facility] Administration Hydralazine HCl 10 mg 11/22/20 01:24 11/28/20 04:35 Hydralazine 20 Mg/1 Ml Inj IV 10 mg Q6H PRN Administration Blood Pressure Hydrophilic Ointment 1 applic 11/22/20 00:38 Lip Therapy Vaseline TP Q2HR PRN Dry Lips Dexmedetomidine HCl 400 mcg/ 104 mls @ 4.228 mls/hr 11/25/20 10:00 11/29/20 05:25 Sodium Chloride IV 0.4 mcg/kg/hr TITRATE [facility] 8.455 mls/hr Administration Protocol 0.2 MCG/KG/HR Lansoprazole 30 mg 11/28/20 10:00 11/29/20 09:22 Lansoprazole 30 Mg Solutab FEEDTUBE 30 mg QDAY [facility] Administration Methylprednisolone Sodium Succinate 40 mg 11/27/20 14:00 11/29/20 05:27 Methylprednisolone Sod Succinate 125 Mg/2 Ml Inj IV 40 mg Q8HR [facility] Administration Metoprolol Tartrate 5 mg 11/25/20 12:00 11/29/20 05:29 Metoprolol Tartrate 5 Mg/5 Ml Inj IV 5 mg Q6HR [facility] Administration Multi-Ingred Cream/Lotion/Oil/Oint 1 applic 11/22/20 00:38 Mineral Oil/Petrolatum, White Ophth Oint 3.5 Gm OU Q4HR PRN Dry Eye(s) Nitroglycerin 0.4 mg 11/22/20 01:25 Nitroglycerin 0.4 Mg Tab Subl SL Q5M PRN Chest Pain Ondansetron HCl 4 mg 11/22/20 01:19 Ondansetron 4 Mg/2 Ml Inj IV Q8H PRN Nausea And Vomiting Quetiapine Fumarate 25 mg 11/27/20 12:00 11/29/20 09:23 Quetiapine 25 Mg Tab PO 25 mg BID [facility] Administration Senna/Docusate Sodium 1 tab 11/22/20 10:00 11/29/20 09:23 Sennosides/Docusate Sodium 8.6/50 Mg Tab FEEDTUBE 1 tab BID [facility] Administration Simple Syrup 15 ml 11/22/20 09:07 Simple Syrup 15 Ml FEEDTUBE PRN PRN Hypoglycemia Simple Syrup 30 ml 11/22/20 09:07 Simple Syrup 15 Ml FEEDTUBE PRN PRN Hypoglycemia Sodium Bicarbonate 325 mg 11/22/20 09:07 Sodium Bicarbonate 325 Mg Tab FEEDTUBE PRN PRN For Clogged Feeding Tube Sodium Chloride 10 ml 11/22/20 10:00 11/29/20 09:23 Sodium Chloride 0.9% 10 Ml Flush Syringe IV 10 ml BID [facility] Administration Sodium Chloride 10 ml 11/22/20 01:19 Sodium Chloride 0.9% 10 Ml Flush Syringe IV PRN PRN LINE FLUSH Tamsulosin HCl 0.4 mg 11/22/20 10:00 11/29/20 09:22 Tamsulosin 0.4 Mg Cap PO 0.4 mg DAILY [facility] Administration
[2020-11-29] MEDS ORDERED: FUROSEMIDE 20 MG/2 ML INJ IV ONE (12:00)
[2020-11-29] MEDS ORDERED: ALBUMIN HUMAN 25% (25 GM/100 ML) INJ IV ONE (12:00)
--- NOTE | 2020-11-29 18:29 | Progress Note ---
Assessment and Plan Assessment and Plan --Acute hypoxic respiratory failure/Requiring intubation 11/21/2020 s/p extubation 11/23/2020, patient is on noninvasive ventilation on high flow nasal cannula oxygen Fio2/97% sat 30 L / 60% FiO2 Still on high flow oxygen-30 L / 50% FiO2 BiPAP as needed, wean as tolerated Pulmonary hygiene, pulmonary critical care following --Hypokalemia; resolved Monitor electrolytes --Acute kidney injury; vasomotor nephropathy Gentle hydration closely monitor renal function --Severe pulmonary hypertension; Management per pulmonary, continue supportive care --Acute metabolic encephalopathy -11/21 CT head shows no acute intracranial abnormality, sinus disease Continue supportive care --NSTEMI type II Presented with [facility] with elevated troponins cardiology patient had a stress test in 2019 which showed no significant ischemia, Echo; EF 50 to 55% severe pulmonary hypertension moderate mitral stenosis may benefit from HECTOR for evaluation of mitral valve when patient is stable and e xtubated --Acute kidney injury; present on admission Vasomotor nephropathy Now resolved, normal renal function Avoid nephrotoxins, nephrology following --History of bladder cancer; Indwelling Paulson in place, supportive care Continue Flomax --Urinary tract infection; Continue empiric antibiotics total 5 days Supportive care --Dyslipidemia; Continue statin and low-cholesterol diet --Hypertension; moderate control We will continue current antihypertensives And as needed hydralazine --Hypernatremia ; Patient was hyponatremia on admission ,probably overcorrection Free water via [place], nephrology following Monitor electrolytes --Severe protein calorie malnutrition ; Hypoalbuminemia ,nutrition supplements Nutrition consult and supportive care --DVT prophylaxis; Subcu heparin, SCDs --GI prophylaxis; Continue Prevacid --Full CODE STATUS; Bedside swallow screen, if normal start diet pured/mechanical soft advance as tolerated We will also request physical therapy We will closely monitor the patient and adjust the management as needed Consults and recommendations noted and appreciated Plan of care reviewed with the patient's nurse PT OT when he comes off high flow oxygen DC planning per case management; considering LTAC placement Subjective Date of service: 11/29/20 Principal diagnosis: Acute respiratory failure Interval history: Brief history 85-year-old male patient with past medical history of COPD on home oxygen, GERD, hypertension, asthma, hyperlipidemia, vasopressin, bladder cancer admitted for acute hypoxic respiratory failure, intubated on 11/21/2020 managed approp riately evaluated by pulmonary critical subsequently extubated on 11/23/2020, today patient is on high flow nasal cannula oxygen, pulmonary critical, cardiology and nephrology following the patient 11/23: Patient was extubated, currently on BiPAP Mild distress, wean as tolerated 11/24/2020 Patient on BiPAP S/p extubation 11/25/2020; patient is on BiPAP Mild distress, noncommunicative 11/26/2020; patient is on intermittent BiPAP Currently on high flow nasal cannula oxygen 11/27/2020; patient is more alert and awake Will get swallow screen, if normal start pured diet Transfer the patient to [facility] 11/28/2020; patient is on high flow oxygen slightly better than yesterday Able to tolerate mechanical soft diet when the family comes and helps him DC planning, considering LTAC placement 11/29 Still on HFNC oxygen Objective - Constitutional Vitals: Vital Signs - 12hr 11/29/20 11/29/20 11/29/20 07:01 07:55 08:00 Temperature 98 F Pulse Rate 78 75 Pulse Rate [ Anterior Bilateral Throughout] Pulse Rate [ 75 From Monitor] Respiratory 12 Rate Respiratory Rate [Anterior Bilateral Throughout] Blood Pressure 177/76 O2 Sat by Pulse 94 94 Oximetry 11/29/20 11/29/20 11/29/20 08:01 08:58 09:00 Temperature Pulse Rate 72 78 Pulse Rate [ 76 Anterior Bilateral Throughout] Pulse Rate [ From Monitor] Respiratory 20 21 Rate Respiratory 18 Rate [Anterior Bilateral Throughout] Blood Pressure 78/56 126/63 O2 Sat by Pulse 94 94 92 Oximetry 11/29/20 11/29/20 11/29/20 10:00 11:01 11:36 Temperature Pulse Rate 82 92 H 84 Pulse Rate [ Anterior Bilateral Throughout] Pulse Rate [ From Monitor] Respiratory 18 17 Rate Respiratory Rate [Anterior Bilateral Throughout] Blood Pressure 138/65 138/65 132/61 O2 Sat by Pulse 94 95 Oximetry 11/29/20 11/29/20 11/29/20 12:00 12:01 13:00 Temperature 98.5 F Pulse Rate 77 91 H Pulse Rate [ Anterior Bilateral Throughout] Pulse Rate [ 77 From Monitor] Respiratory 22 Rate Respiratory Rate [Anterior Bilateral Throughout] Blood Pressure 142/60 O2 Sat by Pulse 96 95 Oximetry 11/29/20 11/29/20 11/29/20 13:01 14:00 14:09 Temperature Pulse Rate 77 83 Pulse Rate [ 84 Anterior Bilateral Throughout] Pulse Rate [ From Monitor] Respiratory 28 H 23 Rate Respiratory 18 Rate [Anterior Bilateral Throughout] Blood Pressure 142/60 144/69 O2 Sat by Pulse 96 97 97 Oximetry 11/29/20 11/29/20 11/29/20 15:00 16:00 16:38 Temperature 98.3 F Pulse Rate 83 89 Pulse Rate [ Anterior Bilateral Throughout] Pulse Rate [ 86 From Monitor] Respiratory 21 21 Rate Respiratory Rate [Anterior Bilateral Throughout] Blood Pressure 130/74 114/75 O2 Sat by Pulse 95 93 Oximetry 11/29/20 11/29/20 11/29/20 17:01 17:40 18:00 Temperature Pulse Rate 92 H 94 H 85 Pulse Rate [ Anterior Bilateral Throughout] Pulse Rate [ From Monitor] Respiratory 21 29 H Rate Respiratory Rate [Anterior Bilateral Throughout] Blood Pressure 167/79 167/79 166/74 O2 Sat by Pulse 95 94 Oximetry General appearance: Present: no acute distress, well-nourished - EENT Eyes: PERRL, EOM intact ENT: hearing intact, clear oral mucosa Ears: bilateral: normal - Neck Neck: supple, normal ROM - Respiratory Respiratory effort: normal Respiratory: bilateral: CTA - Breasts Breasts: normal - Cardiovascular Rhythm: regular Heart Sounds: Present: S1 & S2. Absent: gallop, rub Extremities: pulses intact, No edema, normal color, Full ROM - Gastrointestinal General gastrointestinal: Present: soft, non-tender, non-distended, normal bowel sounds - Genitourinary Male genitourinary: normal - Integumentary Integumentary: clear, warm, dry - Musculoskeletal Musculoskeletal: 1, strength equal bilaterally - Neurologic Neurologic: moves all extremities - Psychiatric Psychiatric: memory intact, appropriate mood/affect, intact judgment & insight - Labs CBC & Chem 7: 12/17/20 04:28 12/17/20 04:28 Labs: Abnormal lab results 11/28/20 11/29/20 11/29/20 Range/Units 21:17 00:06 04:43 Chloride 97.7 L (98-107) mmol/L BUN 56 H (9-20) mg/dL Creatinine 1.6 H (0.8-1.3) mg/dL Glucose 132 H (75-100) mg/dL POC Glucose 122 H 114 H (70-105) mg/dL 11/29/20 11/29/20 11/29/20 Range/Units 05:15 12:09 18:12 Chloride (98-107) mmol/L BUN (9-20) mg/dL Creatinine (0.8-1.3) mg/dL Glucose (75-100) mg/dL POC Glucose 125 H 142 H 132 H (70-105) mg/dL HEART Score - HEART Score Troponin: Troponin T 0.021 ng/mL (0.00-0.029) 11/29/20 04:43
[2020-11-29] MEDS: ACETAMINOPHEN 325 MG TAB PO PRN (20:04)
[2020-11-29] MEDS: hydrALAZINE 20 MG/1 ML INJ IV PRN (20:08)
--- NOTE | 2020-11-29 20:41 | Progress Note ---
Assessment and Plan Imp: 1. Acute respiratory failure, hypoxia 2. COPD exac. 3. CARRIE 4. Hypernatremia 5. Metabolic encephalopathy Rec: 1. Clinically improving; taper Solumedrol 2. Holding diuretics 3. Duonebs QID as ordered 4. DVT PPx 5. Try to mobilize 6. Wean HFNC to keep sats 88% or > 7. Complex decision-making Plan of care reviewed w/ patient/family, they understand/agree Subjective Date of service: 11/29/20 Principal diagnosis: Acute respiratory failure Interval history: Awake, alert, breating comfortably on HFNC. SOB better. Active Medications Acetaminophen (Acetaminophen 325 Mg Tab) 650 mg PO Q4H PRN PRN Reason: Pain, Mild (1-3) Last Admin: 11/29/20 20:04 Dose: 650 mg Documented by: Albuterol (Albuterol 2.5 Mg/3 Ml Nebu) 2.5 mg IH Q4HRT PRN PRN Reason: Shortness Of Breath Albuterol/Ipratropium (Ipratropium/Albuterol Sulfate 3 Ml Ampul.Neb) 1 ampul IH Q6HRT [facility] Last Admin: 11/29/20 19:52 Dose: 1 ampul Documented by: Lipase/Protease/Amylase (Lipase 10,500/Protease 25,000/Amylase 43,750 (Units) Dr Cyr) 1 each FEEDTUBE PRN PRN PRN Reason: For Clogged Feeding Tube Aspirin (Aspirin 81 Mg Tab Chew) 81 mg PO QDAY [facility] Last Admin: 11/29/20 09:22 Dose: 81 mg Documented by: Atorvastatin Calcium (Atorvastatin 40 Mg Tab) 40 mg PO QHS [facility] Last Admin: 11/28/20 21:41 Dose: 40 mg Documented by: Budesonide (Budesonide 0.5 Mg/2 Ml Nebu) 0.5 mg IH Q12HRT [facility] Last Admin: 11/29/20 19:52 Dose: 0.5 mg Documented by: Haloperidol Lactate (Haloperidol Lactate 5 Mg/1 Ml Inj) 5 mg IV Q6H PRN PRN Reason: Agitation Last Admin: 11/27/20 05:34 Dose: 5 mg Documented by: Heparin Sodium (Porcine) (Heparin 5,000 Unit/1 Ml Vial) 5,000 unit SUB-Q Q8HR [facility] Last Admin: 11/29/20 13:55 Dose: 5,000 unit Documented by: Hydralazine HCl (Hydralazine 20 Mg/1 Ml Inj) 10 mg IV Q6H PRN PRN Reason: Blood Pressure Last Admin: 11/29/20 20:08 Dose: 10 mg Documented by: Hydrophilic Ointment (Lip Therapy Vaseline) 1 applic TP Q2HR PRN PRN Reason: Dry Lips Dexmedetomidine HCl 400 mcg/ (Sodium Chloride) 104 mls @ 4.228 mls/hr IV TITRATE [facility]; Protocol Last Titration: 11/29/20 09:30 Dose: 0 mcg/kg/hr, 0 mls/hr Documented by: Lansoprazole (Lansoprazole 30 Mg Solutab) 30 mg FEEDTUBE QDAY [facility] Last Admin: 11/29/20 09:22 Dose: 30 mg Documented by: Methylprednisolone Sodium Succinate (Methylprednisolone Sod Succinate 125 Mg/2 Ml Inj) 20 mg IV Q8HR [facility] Metoprolol Tartrate (Metoprolol Tartrate 5 Mg/5 Ml Inj) 5 mg IV Q6HR [facility] Last Admin: 11/29/20 17:40 Dose: 5 mg Documented by: Multi-Ingred Cream/Lotion/Oil/Oint (Mineral Oil/Petrolatum, White Ophth Oint 3.5 Gm) 1 applic OU Q4HR PRN PRN Reason: Dry Eye(s) Nitroglycerin (Nitroglycerin 0.4 Mg Tab Subl) 0.4 mg SL Q5M PRN PRN Reason: Chest Pain Ondansetron HCl (Ondansetron 4 Mg/2 Ml Inj) 4 mg IV Q8H PRN PRN Reason: Nausea And Vomiting Quetiapine Fumarate (Quetiapine 25 Mg Tab) 25 mg PO BID [facility] Last Admin: 11/29/20 09:23 Dose: 25 mg Documented by: Senna/Docusate Sodium (Sennosides/Docusate Sodium 8.6/50 Mg Tab) 1 tab FEEDTUBE BID [facility] Last Admin: 11/29/20 09:23 Dose: 1 tab Documented by: Simple Syrup (Simple Syrup 15 Ml) 15 ml FEEDTUBE PRN PRN PRN Reason: Hypoglycemia Simple Syrup (Simple Syrup 15 Ml) 30 ml FEEDTUBE PRN PRN PRN Reason: Hypoglycemia Sodium Bicarbonate (Sodium Bicarbonate 325 Mg Tab) 325 mg FEEDTUBE PRN PRN PRN Reason: For Clogged Feeding Tube Sodium Chloride (Sodium Chloride 0.9% 10 Ml Flush Syringe) 10 ml IV BID [facility] Last Admin: 11/29/20 09:23 Dose: 10 ml Documented by: Sodium Chloride (Sodium Chloride 0.9% 10 Ml Flush Syringe) 10 ml IV PRN PRN PRN Reason: LINE FLUSH Tamsulosin HCl (Tamsulosin 0.4 Mg Cap) 0.4 mg PO DAILY [facility] Last Admin: 11/29/20 09:22 Dose: 0.4 mg Documented by: Objective Vital Signs - 12hr 11/29/20 11/29/20 11/29/20 08:58 09:00 10:00 Temperature Pulse Rate 78 82 Pulse Rate [ 76 Anterior Bilateral Throughout] Pulse Rate [ From Monitor] Respiratory 21 18 Rate Respiratory 18 Rate [Anterior Bilateral Throughout] Blood Pressure 126/63 138/65 O2 Sat by Pulse 94 92 94 Oximetry 11/29/20 11/29/20 11/29/20 11:01 11:36 12:00 Temperature Pulse Rate 92 H 84 77 Pulse Rate [ Anterior Bilateral Throughout] Pulse Rate [ 77 From Monitor] Respiratory 17 Rate Respiratory Rate [Anterior Bilateral Throughout] Blood Pressure 138/65 132/61 O2 Sat by Pulse 95 96 Oximetry 11/29/20 11/29/20 11/29/20 12:01 13:00 13:01 Temperature 98.5 F Pulse Rate 91 H 77 Pulse Rate [ Anterior Bilateral Throughout] Pulse Rate [ From Monitor] Respiratory 22 28 H Rate Respiratory Rate [Anterior Bilateral Throughout] Blood Pressure 142/60 142/60 O2 Sat by Pulse 95 96 Oximetry 11/29/20 11/29/20 11/29/20 14:00 14:09 15:00 Temperature Pulse Rate 83 83 Pulse Rate [ 84 Anterior Bilateral Throughout] Pulse Rate [ From Monitor] Respiratory 23 21 Rate Respiratory 18 Rate [Anterior Bilateral Throughout] Blood Pressure 144/69 130/74 O2 Sat by Pulse 97 97 95 Oximetry 11/29/20 11/29/20 11/29/20 16:00 16:38 17:01 Temperature 98.3 F Pulse Rate 89 92 H Pulse Rate [ Anterior Bilateral Throughout] Pulse Rate [ 86 From Monitor] Respiratory 21 21 Rate Respiratory Rate [Anterior Bilateral Throughout] Blood Pressure 114/75 167/79 O2 Sat by Pulse 93 95 Oximetry 11/29/20 11/29/20 11/29/20 17:40 18:00 19:52 Temperature Pulse Rate 94 H 85 Pulse Rate [ 108 H Anterior Bilateral Throughout] Pulse Rate [ From Monitor] Respiratory 29 H Rate Respiratory 22 Rate [Anterior Bilateral Throughout] Blood Pressure 167/79 166/74 O2 Sat by Pulse 94 92 Oximetry 11/29/20 11/29/20 20:04 20:08 Temperature Pulse Rate 106 H Pulse Rate [ Anterior Bilateral Throughout] Pulse Rate [ From Monitor] Respiratory 25 H Rate Respiratory Rate [Anterior Bilateral Throughout] Blood Pressure 196/100 O2 Sat by Pulse Oximetry Constitutional: no acute distress, alert Eyes: non-icteric ENT: oropharynx moist Neck: supple, other (large in circumference) Effort: normal Ascultation: Bilateral: clear Percussion: Bilateral: not dull Cardiovascular: other (tachy, no mrg) Gastrointestinal: normoactive bowel sounds, soft, non-tender, non-distended Extremities: no cyanosis, no edema, pink and warm Neurologic: normal mental status, non-focal exam, pupils equal and round Psychiatric: mood appropriate, affect normal CBC and BMP: 11/28/20 09:21 11/29/20 04:43 ABG, PT/INR, D-dimer: ABG ABG pH 7.281 (7.320-7.450) L 11/24/20 01:48 POC ABG pCO2 58.4 mmHg (32.0-48.0) H 11/24/20 01:48 POC ABG pO2 98.1 mmHg (83-108) 11/24/20 01:48 POC ABG HCO3 26.9 11/24/20 01:48 ABG O2 Saturation 96.9 (0-100) 11/24/20 01:48 PT/INR, D-dimer PT 13.5 Sec. (12.2-14.9) 11/21/20 20:50 INR 0.98 (0.87-1.13) 11/21/20 20:50 Abnormal lab findings: Abnormal Labs 11/21/20 11/21/20 11/22/20 20:50 20:50 00:11 WBC RBC 3.48 L Hgb 11.1 L Hct 34.3 L MCV 99 H Lymph % (Auto) 6.8 L Curry % (Auto) Lymph # (Auto) 0.6 L Curry # (Auto) Seg Neutrophils % 85.5 H Seg Neuts % (Manual) Nucleated RBC % Seg Neutrophils # Seg Neutrophils # Man Lymphocytes # (Manual) ABG pH POC ABG pCO2 POC ABG pO2 ABG Hemoglobin ABG Sodium ABG Potassium ABG Glucose Carboxyhemoglobin Sodium 130 L Potassium 7.3 H* Chloride 91.1 L Carbon Dioxide BUN 40 H Creatinine 2.1 H Glucose 195 H POC Glucose Lactic Acid Calcium Phosphorus AST 91 H ALT 65 H CK-MB (CK-2) Rel Index 4.1 H Troponin T 0.045 H NT-Pro-B Natriuret Pep 6998 H Serum Total Protein Total Protein Albumin 3.7 L Donsp-7-Qxxvctbns Gamma Globulins PEP Interpretation HDL Cholesterol 60 H Arterial Blood Glucose Arterial Blood Ionized Calcium Urine WBC (Auto) Urine Creatinine 158.2 H Hepatitis C Antibody 11/22/20 11/22/20 11/22/20 00:23 00:40 01:37 WBC 14.1 H RBC 3.53 L Hgb 11.0 L Hct 34.1 L MCV 97 H Lymph % (Auto) 12.3 L Curry % (Auto) 14.2 H Lymph # (Auto) Curry # (Auto) 2.0 H Seg Neutrophils % 72.3 H Seg Neuts % (Manual) Nucleated RBC % Seg Neutrophils # 10.2 H Seg Neutrophils # Man Lymphocytes # (Manual) ABG pH POC ABG pCO2 POC ABG pO2 ABG Hemoglobin ABG Sodium ABG Potassium ABG Glucose Carboxyhemoglobin Sodium Potassium 5.1 H D Chloride Carbon Dioxide BUN Creatinine Glucose POC Glucose Lactic Acid 2.10 H* Calcium Phosphorus AST ALT CK-MB (CK-2) Rel Index Troponin T NT-Pro-B Natriuret Pep Serum Total Protein Total Protein Albumin Zuabf-8-Yodulsbnc Gamma Globulins PEP Interpretation HDL Cholesterol Arterial Blood Glucose Arterial Blood Ionized Calcium Urine WBC (Auto) Urine Creatinine Hepatitis C Antibody 11/22/20 11/22/20 11/22/20 01:37 03:20 05:00 WBC RBC Hgb Hct MCV Lymph % (Auto) Curry % (Auto) Lymph # (Auto) Curry # (Auto) Seg Neutrophils % Seg Neuts % (Manual) Nucleated RBC % Seg Neutrophils # Seg Neutrophils # Man Lymphocytes # (Manual) ABG pH POC ABG pCO2 58.4 H POC ABG pO2 ABG Hemoglobin 11.1 L ABG Sodium 135.1 L ABG Potassium 5.0 H ABG Glucose Carboxyhemoglobin Sodium Potassium 5.1 H Chloride Carbon Dioxide 31 H BUN 40 H Creatinine 2.0 H Glucose 49 L POC Glucose Lactic Acid Calcium Phosphorus AST ALT CK-MB (CK-2) Rel Index Troponin T NT-Pro-B Natriuret Pep Serum Total Protein Total Protein Albumin Hrgju-5-Mlpgxraoz Gamma Globulins PEP Interpretation HDL Cholesterol Arterial Blood Glucose Arterial Blood Ionized Calcium Urine WBC (Auto) 33.0 H Urine Creatinine Hepatitis C Antibody 11/22/20 11/22/20 11/22/20 05:00 05:00 05:00 WBC RBC Hgb Hct MCV Lymph % (Auto) Curry % (Auto) Lymph # (Auto) Curry # (Auto) Seg Neutrophils % Seg Neuts % (Manual) Nucleated RBC % Seg Neutrophils # Seg Neutrophils # Man Lymphocytes # (Manual) ABG pH POC ABG pCO2 POC ABG pO2 ABG Hemoglobin ABG Sodium ABG Potassium ABG Glucose Carboxyhemoglobin Sodium 136 L Potassium Chloride 97.8 L Carbon Dioxide BUN 41 H Creatinine 1.8 H 1.8 H Glucose POC Glucose Lactic Acid Calcium 8.2 L Phosphorus AST ALT CK-MB (CK-2) Rel Index Troponin T 0.065 H D NT-Pro-B Natriuret Pep Serum Total Protein Total Protein Albumin Dfaur-6-Beimrklqz Gamma Globulins PEP Interpretation HDL Cholesterol Arterial Blood Glucose Arterial Blood Ionized Calcium Urine WBC (Auto) Urine Creatinine Hepatitis C Antibody 11/22/20 11/22/20 11/22/20 10:20 10:20 15:00 WBC RBC 3.16 L Hgb 10.2 L Hct 29.9 L MCV 95 H Lymph % (Auto) Curry % (Auto) Lymph # (Auto) Curry # (Auto) Seg Neutrophils % Seg Neuts % (Manual) Nucleated RBC % Seg Neutrophils # Seg Neutrophils # Man Lymphocytes # (Manual) ABG pH 7.501 H POC ABG pCO2 POC ABG pO2 ABG Hemoglobin 10.5 L ABG Sodium 134.9 L ABG Potassium ABG Glucose 115 H Carboxyhemoglobin 0.4 L Sodium Potassium Chloride Carbon Dioxide BUN Creatinine Glucose POC Glucose Lactic Acid Calcium Phosphorus AST ALT CK-MB (CK-2) Rel Index Troponin T 0.078 H NT-Pro-B Natriuret Pep Serum Total Protein Total Protein Albumin Ktnef-0-Dukdjudrx Gamma Globulins PEP Interpretation HDL Cholesterol Arterial Blood Glucose 115 H Arterial Blood Ionized Calcium 4.3 L Urine WBC (Auto) Urine Creatinine Hepatitis C Antibody 11/22/20 11/22/20 11/22/20 16:00 17:45 23:21 WBC RBC Hgb Hct MCV Lymph % (Auto) Curry % (Auto) Lymph # (Auto) Curry # (Auto) Seg Neutrophils % Seg Neuts % (Manual) Nucleated RBC % Seg Neutrophils # Seg Neutrophils # Man Lymphocytes # (Manual) ABG pH POC ABG pCO2 POC ABG pO2 ABG Hemoglobin ABG Sodium ABG Potassium ABG Glucose Carboxyhemoglobin Sodium Potassium Chloride Carbon Dioxide BUN Creatinine Glucose POC Glucose 107 H 115 H Lactic Acid Calcium Phosphorus AST ALT CK-MB (CK-2) Rel Index Troponin T NT-Pro-B Natriuret Pep Serum Total Protein Total Protein Albumin Lxyek-6-Jnzpayqoc Gamma Globulins PEP Interpretation HDL Cholesterol Arterial Blood Glucose Arterial Blood Ionized Calcium Urine WBC (Auto) Urine Creatinine Hepatitis C Antibody Reactive A 11/23/20 11/23/20 11/23/20 03:03 05:33 10:00 WBC RBC 3.33 L Hgb 10.6 L Hct 32.2 L MCV 97 H Lymph % (Auto) Curry % (Auto) 15.0 H Lymph # (Auto) Curry # (Auto) 1.5 H Seg Neutrophils % Seg Neuts % (Manual) Nucleated RBC % Seg Neutrophils # Seg Neutrophils # Man Lymphocytes # (Manual) ABG pH POC ABG pCO2 POC ABG pO2 115.8 H ABG Hemoglobin 10.1 L ABG Sodium 135.8 L ABG Potassium ABG Glucose 98 H Carboxyhemoglobin 0.4 L Sodium Potassium Chloride Carbon Dioxide BUN Creatinine Glucose POC Glucose 106 H Lactic Acid Calcium Phosphorus AST ALT CK-MB (CK-2) Rel Index Troponin T NT-Pro-B Natriuret Pep Serum Total Protein Total Protein Albumin Qiayu-0-Knrefzlnx Gamma Globulins PEP Interpretation HDL Cholesterol Arterial Blood Glucose 98 H Arterial Blood Ionized Calcium 4.4 L Urine WBC (Auto) Urine Creatinine Hepatitis C Antibody 11/23/20 11/23/20 11/23/20 10:00 10:00 12:12 WBC RBC Hgb Hct MCV Lymph % (Auto) Curry % (Auto) Lymph # (Auto) Curry # (Auto) Seg Neutrophils % Seg Neuts % (Manual) Nucleated RBC % Seg Neutrophils # Seg Neutrophils # Man Lymphocytes # (Manual) ABG pH POC ABG pCO2 POC ABG pO2 ABG Hemoglobin ABG Sodium ABG Potassium ABG Glucose Carboxyhemoglobin Sodium Potassium Chloride Carbon Dioxide BUN 22 H Creatinine Glucose 101 H POC Glucose 119 H Lactic Acid Calcium 7.9 L Phosphorus AST ALT CK-MB (CK-2) Rel Index Troponin T NT-Pro-B Natriuret Pep Serum Total Protein 5.3 L Total Protein 5.5 L Albumin 2.8 L 2.8 L Fmrth-1-Azpabvjjn 0.4 H Gamma Globulins 0.7 L PEP Interpretation see below H HDL Cholesterol Arterial Blood Glucose Arterial Blood Ionized Calcium Urine WBC (Auto) Urine Creatinine Hepatitis C Antibody 11/23/20 11/23/20 11/24/20 18:21 23:28 01:48 WBC RBC Hgb Hct MCV Lymph % (Auto) Curry % (Auto) Lymph # (Auto) Curry # (Auto) Seg Neutrophils % Seg Neuts % (Manual) Nucleated RBC % Seg Neutrophils # Seg Neutrophils # Man Lymphocytes # (Manual) ABG pH 7.281 L POC ABG pCO2 58.4 H POC ABG pO2 ABG Hemoglobin 11.8 L ABG Sodium ABG Potassium ABG Glucose 101 H Carboxyhemoglobin Sodium Potassium Chloride Carbon Dioxide BUN Creatinine Glucose POC Glucose 106 H 108 H Lactic Acid Calcium Phosphorus AST ALT CK-MB (CK-2) Rel Index Troponin T NT-Pro-B Natriuret Pep Serum Total Protein Total Protein Albumin Pbkkt-7-Ztgschhof Gamma Globulins PEP Interpretation HDL Cholesterol Arterial Blood Glucose 101 H Arterial Blood Ionized Calcium Urine WBC (Auto) Urine Creatinine Hepatitis C Antibody 11/24/20 11/24/20 11/25/20 09:58 09:58 00:29 WBC RBC Hgb Hct MCV Lymph % (Auto) Curry % (Auto) Lymph # (Auto) Curry # (Auto) Seg Neutrophils % Seg Neuts % (Manual) Nucleated RBC % Seg Neutrophils # Seg Neutrophils # Man Lymphocytes # (Manual) ABG pH POC ABG pCO2 POC ABG pO2 ABG Hemoglobin ABG Sodium ABG Potassium ABG Glucose Carboxyhemoglobin Sodium 148 H Potassium Chloride Carbon Dioxide 34 H D BUN Creatinine Glucose POC Glucose 111 H Lactic Acid 0.60 L Calcium Phosphorus AST ALT CK-MB (CK-2) Rel Index Troponin T NT-Pro-B Natriuret Pep Serum Total Protein Total Protein Albumin Xijex-1-Zyuyhxhss Gamma Globulins PEP Interpretation HDL Cholesterol Arterial Blood Glucose Arterial Blood Ionized Calcium Urine WBC (Auto) Urine Creatinine Hepatitis C Antibody 11/25/20 11/25/20 11/25/20 05:48 08:18 08:18 WBC 13.2 H RBC 3.56 L Hgb 10.9 L Hct 34.0 L MCV 96 H Lymph % (Auto) Curry % (Auto) Lymph # (Auto) Curry # (Auto) Seg Neutrophils % Seg Neuts % (Manual) 98.0 H Nucleated RBC % 1.0 H Seg Neutrophils # Seg Neutrophils # Man 12.9 H Lymphocytes # (Manual) 0.0 L ABG pH POC ABG pCO2 POC ABG pO2 ABG Hemoglobin ABG Sodium ABG Potassium ABG Glucose Carboxyhemoglobin Sodium 147 H Potassium Chloride Carbon Dioxide 32 H BUN 26 H Creatinine Glucose 151 H POC Glucose 148 H Lactic Acid Calcium Phosphorus AST ALT CK-MB (CK-2) Rel Index Troponin T NT-Pro-B Natriuret Pep Serum Total Protein Total Protein 6.0 L Albumin 3.7 L Gsutj-7-Ulbskebpk Gamma Globulins PEP Interpretation HDL Cholesterol Arterial Blood Glucose Arterial Blood Ionized Calcium Urine WBC (Auto) Urine Creatinine Hepatitis C Antibody 11/25/20 11/25/20 11/25/20 11:34 18:03 23:15 WBC RBC Hgb Hct MCV Lymph % (Auto) Curry % (Auto) Lymph # (Auto) Curry # (Auto) Seg Neutrophils % Seg Neuts % (Manual) Nucleated RBC % Seg Neutrophils # Seg Neutrophils # Man Lymphocytes # (Manual) ABG pH POC ABG pCO2 POC ABG pO2 ABG Hemoglobin ABG Sodium ABG Potassium ABG Glucose Carboxyhemoglobin Sodium Potassium Chloride Carbon Dioxide BUN Creatinine Glucose POC Glucose 144 H 147 H 158 H Lactic Acid Calcium Phosphorus AST ALT CK-MB (CK-2) Rel Index Troponin T NT-Pro-B Natriuret Pep Serum Total Protein Total Protein Albumin Jvrpo-0-Mzeqcabui Gamma Globulins PEP Interpretation HDL Cholesterol Arterial Blood Glucose Arterial Blood Ionized Calcium Urine WBC (Auto) Urine Creatinine Hepatitis C Antibody 11/26/20 11/26/20 11/26/20 05:07 06:22 06:22 WBC 12.3 H RBC 3.52 L Hgb 11.1 L Hct 33.6 L MCV 95 H Lymph % (Auto) Curry % (Auto) Lymph # (Auto) Curry # (Auto) Seg Neutrophils % Seg Neuts % (Manual) Nucleated RBC % Seg Neutrophils # Seg Neutrophils # Man Lymphocytes # (Manual) ABG pH POC ABG pCO2 POC ABG pO2 ABG Hemoglobin ABG Sodium ABG Potassium ABG Glucose Carboxyhemoglobin Sodium Potassium 3.3 L Chloride 95.8 L Carbon Dioxide 33 H BUN 35 H Creatinine 1.4 H Glucose 185 H POC Glucose 184 H Lactic Acid Calcium Phosphorus AST ALT CK-MB (CK-2) Rel Index Troponin T 0.036 H D NT-Pro-B Natriuret Pep Serum Total Protein Total Protein 6.2 L Albumin 3.1 L Cegrk-5-Tsjqkcyuk Gamma Globulins PEP Interpretation HDL Cholesterol Arterial Blood Glucose Arterial Blood Ionized Calcium Urine WBC (Auto) Urine Creatinine Hepatitis C Antibody 11/26/20 11/26/20 11/26/20 12:52 17:30 23:14 WBC RBC Hgb Hct MCV Lymph % (Auto) Curry % (Auto) Lymph # (Auto) Curry # (Auto) Seg Neutrophils % Seg Neuts % (Manual) Nucleated RBC % Seg Neutrophils # Seg Neutrophils # Man Lymphocytes # (Manual) ABG pH POC ABG pCO2 POC ABG pO2 ABG Hemoglobin ABG Sodium ABG Potassium ABG Glucose Carboxyhemoglobin Sodium Potassium Chloride Carbon Dioxide BUN Creatinine Glucose POC Glucose 170 H 133 H 149 H Lactic Acid Calcium Phosphorus AST ALT CK-MB (CK-2) Rel Index Troponin T NT-Pro-B Natriuret Pep Serum Total Protein Total Protein Albumin Ekntz-3-Hpvigchpn Gamma Globulins PEP Interpretation HDL Cholesterol Arterial Blood Glucose Arterial Blood Ionized Calcium Urine WBC (Auto) Urine Creatinine Hepatitis C Antibody 11/27/20 11/27/20 11/27/20 05:35 08:03 12:02 WBC RBC Hgb Hct MCV Lymph % (Auto) Curry % (Auto) Lymph # (Auto) Curry # (Auto) Seg Neutrophils % Seg Neuts % (Manual) Nucleated RBC % Seg Neutrophils # Seg Neutrophils # Man Lymphocytes # (Manual) ABG pH POC ABG pCO2 POC ABG pO2 ABG Hemoglobin ABG Sodium ABG Potassium ABG Glucose Carboxyhemoglobin Sodium Potassium Chloride 97.0 L Carbon Dioxide 31 H BUN 41 H Creatinine 1.4 H Glucose 145 H POC Glucose 135 H 139 H Lactic Acid Calcium Phosphorus 2.20 L AST ALT CK-MB (CK-2) Rel Index Troponin T NT-Pro-B Natriuret Pep Serum Total Protein Total Protein Albumin Zblze-9-Cyaqvwbcj Gamma Globulins PEP Interpretation HDL Cholesterol Arterial Blood Glucose Arterial Blood Ionized Calcium Urine WBC (Auto) Urine Creatinine Hepatitis C Antibody 11/27/20 11/28/20 11/28/20 18:41 05:26 06:08 WBC RBC Hgb Hct MCV Lymph % (Auto) Curry % (Auto) Lymph # (Auto) Curry # (Auto) Seg Neutrophils % Seg Neuts % (Manual) Nucleated RBC % Seg Neutrophils # Seg Neutrophils # Man Lymphocytes # (Manual) ABG pH POC ABG pCO2 POC ABG pO2 ABG Hemoglobin ABG Sodium ABG Potassium ABG Glucose Carboxyhemoglobin Sodium Potassium Chloride Carbon Dioxide BUN 45 H Creatinine 1.4 H Glucose 135 H POC Glucose 148 H 143 H Lactic Acid Calcium Phosphorus AST ALT CK-MB (CK-2) Rel Index Troponin T NT-Pro-B Natriuret Pep Serum Total Protein Total Protein Albumin Agdya-6-Bmhzrdwal Gamma Globulins PEP Interpretation HDL Cholesterol Arterial Blood Glucose Arterial Blood Ionized Calcium Urine WBC (Auto) Urine Creatinine Hepatitis C Antibody 11/28/20 11/28/20 11/28/20 11:46 17:31 21:17 WBC RBC Hgb Hct MCV Lymph % (Auto) Curry % (Auto) Lymph # (Auto) Curry # (Auto) Seg Neutrophils % Seg Neuts % (Manual) Nucleated RBC % Seg Neutrophils # Seg Neutrophils # Man Lymphocytes # (Manual) ABG pH POC ABG pCO2 POC ABG pO2 ABG Hemoglobin ABG Sodium ABG Potassium ABG Glucose Carboxyhemoglobin Sodium Potassium Chloride Carbon Dioxide BUN Creatinine Glucose POC Glucose 132 H 156 H 122 H Lactic Acid Calcium Phosphorus AST ALT CK-MB (CK-2) Rel Index Troponin T NT-Pro-B Natriuret Pep Serum Total Protein Total Protein Albumin Pvqpt-3-Jnfgenfdr Gamma Globulins PEP Interpretation HDL Cholesterol Arterial Blood Glucose Arterial Blood Ionized Calcium Urine WBC (Auto) Urine Creatinine Hepatitis C Antibody 11/29/20 11/29/20 11/29/20 00:06 04:43 05:15 WBC RBC Hgb Hct MCV Lymph % (Auto) Curry % (Auto) Lymph # (Auto) Curry # (Auto) Seg Neutrophils % Seg Neuts % (Manual) Nucleated RBC % Seg Neutrophils # Seg Neutrophils # Man Lymphocytes # (Manual) ABG pH POC ABG pCO2 POC ABG pO2 ABG Hemoglobin ABG Sodium ABG Potassium ABG Glucose Carboxyhemoglobin Sodium Potassium Chloride 97.7 L Carbon Dioxide BUN 56 H Creatinine 1.6 H Glucose 132 H POC Glucose 114 H 125 H Lactic Acid Calcium Phosphorus AST ALT CK-MB (CK-2) Rel Index Troponin T NT-Pro-B Natriuret Pep Serum Total Protein Total Protein Albumin Soowv-8-Csbmiftnx Gamma Globulins PEP Interpretation HDL Cholesterol Arterial Blood Glucose Arterial Blood Ionized Calcium Urine WBC (Auto) Urine Creatinine Hepatitis C Antibody 11/29/20 11/29/20 12:09 18:12 WBC RBC Hgb Hct MCV Lymph % (Auto) Curry % (Auto) Lymph # (Auto) Curry # (Auto) Seg Neutrophils % Seg Neuts % (Manual) Nucleated RBC % Seg Neutrophils # Seg Neutrophils # Man Lymphocytes # (Manual) ABG pH POC ABG pCO2 POC ABG pO2 ABG Hemoglobin ABG Sodium ABG Potassium ABG Glucose Carboxyhemoglobin Sodium Potassium Chloride Carbon Dioxide BUN Creatinine Glucose POC Glucose 142 H 132 H Lactic Acid Calcium Phosphorus AST ALT CK-MB (CK-2) Rel Index Troponin T NT-Pro-B Natriuret Pep Serum Total Protein Total Protein Albumin Eblqy-0-Hdyxvrchq Gamma Globulins PEP Interpretation HDL Cholesterol Arterial Blood Glucose Arterial Blood Ionized Calcium Urine WBC (Auto) Urine Creatinine Hepatitis C Antibody Chest x-ray: report reviewed, image reviewed
[2020-11-29] MEDS: HALOPERIDOL LACTATE 5 MG/1 ML INJ IV PRN (20:54)
[2020-11-30] MEDS: IPRATROPIUM/ALBUTEROL SULFATE 3 ML AMPUL.NEB IH SCH ×4 (03:04→19:08)
[2020-11-30] MEDS: METOPROLOL TARTRATE 5 MG/5 ML INJ IV SCH (05:25)
[2020-11-30] MEDS: methylPREDNISolone Sod Succinate 125 MG/2 ML INJ IV SCH ×3 (05:26→22:25)
[2020-11-30] MEDS: HEPARIN 5,000 UNIT/1 ML VIAL SUB-Q SCH ×3 (05:26→22:26)
[2020-11-30] MEDS: ACETAMINOPHEN 325 MG TAB PO PRN ×2 (06:10→22:26)
[2020-11-30 06:31] LABS: Calcium 8.6 mg/dL (8.4-10.2)
[2020-11-30] MEDS: BUDESONIDE 0.5 MG/2 ML NEBU IH SCH ×2 (07:57→19:08)
[2020-11-30] MEDS: TAMSULOSIN 0.4 MG CAP PO SCH (09:22)
[2020-11-30] MEDS: carvediloL 3.125 MG TAB PO SCH ×2 (09:23→22:25)
[2020-11-30] MEDS: QUEtiapine 25 MG TAB PO SCH ×2 (09:24→22:25)
[2020-11-30] MEDS: SENNOSIDES/DOCUSATE SODIUM 8.6/50 MG TAB FEEDTUBE SCH ×2 (09:24→22:25)
[2020-11-30] MEDS: ASPIRIN 81 MG TAB CHEW PO SCH (09:24)
[2020-11-30] MEDS: LANSOPRAZOLE 30 MG SOLUTAB FEEDTUBE SCH (09:24)
--- NOTE | 2020-11-30 12:56 | Progress Note ---
Subjective Date of service: 11/30/20 Principal diagnosis: Acute respiratory failure Interval history: Impression * Acute kidney injury * Severe hyperkalemia * Respiratory failure * Coronary artery disease * Hypertension * COPD * Bladder cancer * Hepatitis C Recommendations * Hyperkalemia has been corrected with aggressive medical management. * Renal function is stable today, cr noted, Patient is also currently nonoliguric * Albumin of 3.1, give albumin with lasix today * His urine shows 1+ dipstick protein and large blood. Fractional excretion of sodium is 0.4%. He most likely has a prerenal component. However given his microhematuria need to rule out vasculitis. Vasculitis work-up as ordered * Renal ultrasound shows atrophic left kidney. No obstruction. * Monitor fluid status and electrolytes closely * Avoid nephrotoxins Subjective Principal diagnosis: abnl trop Interval history: resting in bed today events noted Objective - General Appearance General appearance: well-developed, well-nourished, appears stated age, other (Lethargic. Not answering questions or following commands) EENT: PERRL, mucous membranes moist Neck: no JVD, no thyromegaly Respiratory: Present: Ronchi (Few scattered rhonchi) Cardiology: regular, normal heart rate Gastrointestinal: normal, normoactive bowel sounds Integumentary: other (No edema) Objective - Vital Signs Vital signs: Vital Signs - 12hr 11/30/20 11/30/20 11/30/20 01:00 02:00 03:00 Temperature Pulse Rate 68 67 Pulse Rate [ Anterior Bilateral Throughout] Pulse Rate [ 69 From Monitor] Respiratory 23 25 H 26 H Rate Respiratory Rate [Anterior Bilateral Throughout] Blood Pressure 146/67 154/70 O2 Sat by Pulse 94 87 Oximetry 11/30/20 11/30/20 11/30/20 03:01 03:03 03:54 Temperature Pulse Rate 69 74 Pulse Rate [ Anterior Bilateral Throughout] Pulse Rate [ From Monitor] Respiratory 26 H Rate Respiratory Rate [Anterior Bilateral Throughout] Blood Pressure 154/78 O2 Sat by Pulse 92 95 Oximetry 11/30/20 11/30/20 11/30/20 04:00 05:01 05:25 Temperature 97.8 F Pulse Rate 71 75 96 H Pulse Rate [ Anterior Bilateral Throughout] Pulse Rate [ From Monitor] Respiratory 27 H 25 H Rate Respiratory Rate [Anterior Bilateral Throughout] Blood Pressure 135/72 145/78 145/78 O2 Sat by Pulse 95 96 Oximetry 11/30/20 11/30/20 11/30/20 06:01 06:10 07:00 Temperature Pulse Rate 59 L 57 L Pulse Rate [ Anterior Bilateral Throughout] Pulse Rate [ From Monitor] Respiratory 22 26 H 29 H Rate Respiratory Rate [Anterior Bilateral Throughout] Blood Pressure 147/70 162/68 O2 Sat by Pulse 94 95 Oximetry 11/30/20 11/30/20 11/30/20 07:57 08:00 08:25 Temperature 98.2 F Pulse Rate 56 L Pulse Rate [ 58 L Anterior Bilateral Throughout] Pulse Rate [ 69 From Monitor] Respiratory 25 H Rate Respiratory 20 Rate [Anterior Bilateral Throughout] Blood Pressure 161/76 O2 Sat by Pulse 95 95 Oximetry 11/30/20 11/30/20 11/30/20 08:42 09:01 09:23 Temperature Pulse Rate 61 103 H Pulse Rate [ Anterior Bilateral Throughout] Pulse Rate [ From Monitor] Respiratory 24 Rate Respiratory Rate [Anterior Bilateral Throughout] Blood Pressure 99/45 161/76 O2 Sat by Pulse 96 92 Oximetry 11/30/20 11/30/20 10:01 11:52 Temperature 97.9 F Pulse Rate 67 Pulse Rate [ Anterior Bilateral Throughout] Pulse Rate [ From Monitor] Respiratory 25 H Rate Respiratory Rate [Anterior Bilateral Throughout] Blood Pressure 88/49 O2 Sat by Pulse 94 Oximetry - Lab 11/28/20 09:21 11/30/20 04:47 Most recent lab results ABG pH 7.281 (7.320-7.450) L 11/24/20 01:48 ABG O2 Saturation 96.9 (0-100) 11/24/20 01:48 Calcium 8.6 mg/dL (8.4-10.2) 11/30/20 04:47 Phosphorus 2.20 mg/dL (2.5-4.5) L 11/27/20 08:03 Magnesium 2.10 mg/dL (1.7-2.3) 11/27/20 08:03 Urine Creatinine 158.2 mg/dL (0.1-20.0) H 11/22/20 00:11 Urine Sodium 39 mmol/L 11/22/20 00:11 Medications & Allergies - Medications Allergies/Adverse Reactions: Allergies No Known Allergies Allergy (Verified 11/11/18 08:08) Home Medications: Home Medications Medication Instructions Recorded Confirmed Last Taken Type Pantoprazole [Protonix TAB] 40 mg PO QDAY #30 tablet 04/11/19 11/22/20 Unknown Rx AtorvaSTATin 20 mg PO QHS 06/13/19 11/22/20 06/12/19 21:00 History Tamsulosin 0.4 mg PO DAILY 06/13/19 11/22/20 06/12/19 21:00 History carvediloL [Coreg] 3.125 mg PO BID 06/13/19 11/22/20 06/11/19 21:00 History Gabapentin 300 mg PO BID 11/22/20 11/22/20 Unknown History Active Medications: Generic Name Dose Route Start Last Admin Trade Name Freq PRN Reason Stop Dose Admin Acetaminophen 650 mg 11/23/20 15:29 11/30/20 06:10 Acetaminophen 325 Mg Tab PO 650 mg Q4H PRN Administration Pain, Mild (1-3) Albuterol 2.5 mg 11/22/20 01:19 Albuterol 2.5 Mg/3 Ml Nebu IH Q4HRT PRN Shortness Of Breath Albuterol/Ipratropium 1 ampul 11/22/20 02:00 11/30/20 07:56 Ipratropium/Albuterol Sulfate 3 Ml Ampul.Neb IH 1 ampul Q6HRT TERESA Administration Lipase/Protease/Amylase 1 each 11/22/20 09:07 Lipase 10,500/Protease 25,000/Amylase 43,750 (Units) Dr Cyr FEEDTUBE PRN PRN For Clogged Feeding Tube Aspirin 81 mg 11/23/20 10:00 11/30/20 09:24 Aspirin 81 Mg Tab Chew PO 81 mg QDAY TERESA Administration Atorvastatin Calcium 40 mg 11/22/20 22:00 11/29/20 21:13 Atorvastatin 40 Mg Tab PO 40 mg QHS TERESA Administration Budesonide 0.5 mg 11/24/20 14:55 11/30/20 07:57 Budesonide 0.5 Mg/2 Ml Nebu IH 0.5 mg Q12HRT TERESA Administration Carvedilol 3.125 mg 11/30/20 10:00 11/30/20 09:23 Carvedilol 3.125 Mg Tab PO 3.125 mg BID TERESA Administration Haloperidol Lactate 5 mg 11/25/20 09:00 11/29/20 20:54 Haloperidol Lactate 5 Mg/1 Ml Inj IV 5 mg Q6H PRN Administration Agitation Heparin Sodium (Porcine) 5,000 unit 11/22/20 06:00 11/30/20 05:26 Heparin 5,000 Unit/1 Ml Vial SUB-Q 5,000 unit Q8HR TERESA Administration Hydralazine HCl 10 mg 11/22/20 01:24 11/29/20 20:08 Hydralazine 20 Mg/1 Ml Inj IV 10 mg Q6H PRN Administration Blood Pressure Hydrophilic Ointment 1 applic 11/22/20 00:38 Lip Therapy Vaseline TP Q2HR PRN Dry Lips Dexmedetomidine HCl 400 mcg/ 104 mls @ 4.228 mls/hr 11/25/20 10:00 11/30/20 05:36 Sodium Chloride IV 0.3 mcg/kg/hr TITRATE TERESA 6.341 mls/hr Administration Protocol 0.2 MCG/KG/HR Lansoprazole 30 mg 11/28/20 10:00 11/30/20 09:24 Lansoprazole 30 Mg Solutab FEEDTUBE 30 mg QDAY TERESA Administration Methylprednisolone Sodium Succinate 20 mg 11/29/20 21:00 11/30/20 05:26 Methylprednisolone Sod Succinate 125 Mg/2 Ml Inj IV 20 mg Q8HR TERESA Administration Multi-Ingred Cream/Lotion/Oil/Oint 1 applic 11/22/20 00:38 Mineral Oil/Petrolatum, White Ophth Oint 3.5 Gm OU Q4HR PRN Dry Eye(s) Nitroglycerin 0.4 mg 11/22/20 01:25 Nitroglycerin 0.4 Mg Tab Subl SL Q5M PRN Chest Pain Ondansetron HCl 4 mg 11/22/20 01:19 Ondansetron 4 Mg/2 Ml Inj IV Q8H PRN Nausea And Vomiting Quetiapine Fumarate 25 mg 11/27/20 12:00 11/30/20 09:24 Quetiapine 25 Mg Tab PO 25 mg BID TERESA Administration Senna/Docusate Sodium 1 tab 11/22/20 10:00 11/30/20 09:24 Sennosides/Docusate Sodium 8.6/50 Mg Tab FEEDTUBE 1 tab BID TERESA Administration Simple Syrup 15 ml 11/22/20 09:07 Simple Syrup 15 Ml FEEDTUBE PRN PRN Hypoglycemia Simple Syrup 30 ml 11/22/20 09:07 Simple Syrup 15 Ml FEEDTUBE PRN PRN Hypoglycemia Sodium Bicarbonate 325 mg 11/22/20 09:07 Sodium Bicarbonate 325 Mg Tab FEEDTUBE PRN PRN For Clogged Feeding Tube Sodium Chloride 10 ml 11/22/20 10:00 11/30/20 09:25 Sodium Chloride 0.9% 10 Ml Flush Syringe IV 10 ml BID TERESA Administration Sodium Chloride 10 ml 11/22/20 01:19 Sodium Chloride 0.9% 10 Ml Flush Syringe IV PRN PRN LINE FLUSH Tamsulosin HCl 0.4 mg 11/22/20 10:00 11/30/20 09:22 Tamsulosin 0.4 Mg Cap PO 0.4 mg DAILY TERESA Administration
[2020-11-30] MEDS ORDERED: ALBUMIN HUMAN 25% (25 GM/100 ML) INJ IV ONE (13:00)
[2020-11-30] MEDS ORDERED: FUROSEMIDE 20 MG/2 ML INJ IV ONE (13:00)
--- NOTE | 2020-11-30 18:05 | Progress Note ---
Assessment and Plan Assessment and Plan --Acute hypoxic respiratory failure/Requiring intubation 11/21/2020 s/p extubation 11/23/2020, patient is on noninvasive ventilation on high flow nasal cannula oxygen Fio2/97% sat 30 L / 60% FiO2 Still on high flow oxygen-30 L / 50% FiO2 BiPAP as needed, wean as tolerated Pulmonary hygiene, pulmonary critical care following --Hypokalemia; resolved Monitor electrolytes --Acute kidney injury; vasomotor nephropathy Gentle hydration closely monitor renal function --Severe pulmonary hypertension; Management per pulmonary, continue supportive care --Acute metabolic encephalopathy -11/21 CT head shows no acute intracranial abnormality, sinus disease Continue supportive care --NSTEMI type II Presented with [facility] with elevated troponins cardiology patient had a stress test in 2019 which showed no significant ischemia, Echo; EF 50 to 55% severe pulmonary hypertension moderate mitral stenosis may benefit from HECTOR for evaluation of mitral valve when patient is stable and e xtubated --Acute kidney injury; present on admission Vasomotor nephropathy Now resolved, normal renal function Avoid nephrotoxins, nephrology following --History of bladder cancer; Indwelling Paulson in place, supportive care Continue Flomax --Urinary tract infection; Continue empiric antibiotics total 5 days Supportive care --Dyslipidemia; Continue statin and low-cholesterol diet --Hypertension; moderate control We will continue current antihypertensives And as needed hydralazine --Hypernatremia ; Patient was hyponatremia on admission ,probably overcorrection Free water via [place], nephrology following Monitor electrolytes --Severe protein calorie malnutrition ; Hypoalbuminemia ,nutrition supplements Nutrition consult and supportive care --DVT prophylaxis; Subcu heparin, SCDs --GI prophylaxis; Continue Prevacid --Full CODE STATUS; Bedside swallow screen, if normal start diet pured/mechanical soft advance as tolerated We will also request physical therapy We will closely monitor the patient and adjust the management as needed Consults and recommendations noted and appreciated Plan of care reviewed with the patient's nurse PT OT when he comes off high flow oxygen DC planning per case management; considering LTAC placement 8 Subjective Date of service: 11/30/20 Principal diagnosis: Acute respiratory failure Interval history: Brief history 85-year-old male patient with past medical history of COPD on home oxygen, GERD, hypertension, asthma, hyperlipidemia, vasopressin, bladder cancer admitted for acute hypoxic respiratory failure, intubated on 11/21/2020 managed appro priately evaluated by pulmonary critical subsequently extubated on 11/23/2020, today patient is on high flow nasal cannula oxygen, pulmonary critical, cardiology and nephrology following the patient 11/23: Patient was extubated, currently on BiPAP Mild distress, wean as tolerated 11/24/2020 Patient on BiPAP S/p extubation 11/25/2020; patient is on BiPAP Mild distress, noncommunicative 11/26/2020; patient is on intermittent BiPAP Currently on high flow nasal cannula oxygen 11/27/2020; patient is more alert and awake Will get swallow screen, if normal start pured diet Transfer the patient to [facility] 11/28/2020; patient is on high flow oxygen slightly better than yesterday Able to tolerate mechanical soft diet when the family comes and helps him DC planning, considering LTAC placement 11/29 Still on HFNC oxygen 11/30/2020 Still on high flow nasal cannula oxygen Objective - Constitutional Vitals: Vital Signs - 12hr 11/30/20 11/30/20 11/30/20 06:10 07:00 07:57 Temperature Pulse Rate 57 L Pulse Rate [ 58 L Anterior Bilateral Throughout] Pulse Rate [ From Monitor] Respiratory 26 H 29 H Rate Respiratory 20 Rate [Anterior Bilateral Throughout] Blood Pressure 162/68 O2 Sat by Pulse 95 95 Oximetry 11/30/20 11/30/20 11/30/20 08:00 08:25 08:42 Temperature 98.2 F Pulse Rate 56 L Pulse Rate [ Anterior Bilateral Throughout] Pulse Rate [ 69 From Monitor] Respiratory 25 H Rate Respiratory Rate [Anterior Bilateral Throughout] Blood Pressure 161/76 O2 Sat by Pulse 95 96 Oximetry 11/30/20 11/30/20 11/30/20 09:01 09:23 10:01 Temperature Pulse Rate 61 103 H 67 Pulse Rate [ Anterior Bilateral Throughout] Pulse Rate [ From Monitor] Respiratory 24 25 H Rate Respiratory Rate [Anterior Bilateral Throughout] Blood Pressure 99/45 161/76 88/49 O2 Sat by Pulse 92 94 Oximetry 11/30/20 11/30/20 11/30/20 11:01 11:52 12:00 Temperature 97.9 F Pulse Rate 85 91 H Pulse Rate [ Anterior Bilateral Throughout] Pulse Rate [ 68 From Monitor] Respiratory 28 H 19 Rate Respiratory Rate [Anterior Bilateral Throughout] Blood Pressure 164/71 148/73 O2 Sat by Pulse 98 95 Oximetry 11/30/20 11/30/20 11/30/20 13:00 14:00 14:02 Temperature Pulse Rate 67 61 Pulse Rate [ 61 Anterior Bilateral Throughout] Pulse Rate [ From Monitor] Respiratory 19 26 H Rate Respiratory 18 Rate [Anterior Bilateral Throughout] Blood Pressure 122/53 130/57 O2 Sat by Pulse 93 98 Oximetry 11/30/20 11/30/20 11/30/20 15:00 16:00 16:28 Temperature 98.3 F Pulse Rate 85 76 Pulse Rate [ Anterior Bilateral Throughout] Pulse Rate [ 69 From Monitor] Respiratory 25 H 24 Rate Respiratory Rate [Anterior Bilateral Throughout] Blood Pressure 153/71 144/65 O2 Sat by Pulse 96 94 Oximetry General appearance: Present: severe distress, well-nourished - EENT Eyes: PERRL, EOM intact ENT: hearing intact, clear oral mucosa Ears: bilateral: normal - Neck Neck: supple, normal ROM - Respiratory Respiratory effort: normal Respiratory: bilateral: CTA - Breasts Breasts: normal - Cardiovascular Heart rate: 78 Rhythm: regular Heart Sounds: Present: S1 & S2. Absent: gallop, rub Extremities: pulses intact, No edema, normal color, Full ROM - Gastrointestinal General gastrointestinal: Present: soft, non-tender, non-distended, normal bowel sounds - Genitourinary Male genitourinary: normal - Integumentary Integumentary: clear, warm, dry - Musculoskeletal Musculoskeletal: 1, strength equal bilaterally - Neurologic Neurologic: moves all extremities - Psychiatric Psychiatric: memory intact, appropriate mood/affect, intact judgment & insight - Labs CBC & Chem 7: 12/17/20 04:28 12/17/20 04:28 Labs: Abnormal lab results 11/29/20 11/30/20 11/30/20 Range/Units 18:12 04:47 05:45 Carbon Dioxide 31 H (22-30) mmol/L BUN 59 H (9-20) mg/dL Creatinine 1.6 H (0.8-1.3) mg/dL Glucose 122 H (75-100) mg/dL POC Glucose 132 H 118 H (70-105) mg/dL 11/30/20 Range/Units 11:47 Carbon Dioxide (22-30) mmol/L BUN (9-20) mg/dL Creatinine (0.8-1.3) mg/dL Glucose (75-100) mg/dL POC Glucose 123 H (70-105) mg/dL HEART Score - HEART Score Troponin: Troponin T 0.021 ng/mL (0.00-0.029) 11/29/20 04:43
--- NOTE | 2020-11-30 20:06 | Progress Note ---
Assessment and Plan Imp: 1. Acute respiratory failure, hypoxia 2. COPD exac. 3. CARRIE 4. Hypernatremia 5. Metabolic encephalopathy Rec: 1. Clinically improving; tapered Solumedrol and consider change to Prednisone soon give delirium 2. Holding diuretics 3. Duonebs QID as ordered 4. DVT PPx 5. Try to mobilize 6. Wean HFNC to keep sats 88% or > 7. Complex decision-making Plan of care reviewed w/ patient/family, they understand/agree Subjective Date of service: 11/30/20 Principal diagnosis: Acute respiratory failure Interval history: Awake, alert, breating comfortably on HFNC. SOB better. Family reports delirium at night. Active Medications Acetaminophen (Acetaminophen 325 Mg Tab) 650 mg PO Q4H PRN PRN Reason: Pain, Mild (1-3) Last Admin: 11/30/20 06:10 Dose: 650 mg Documented by: Albuterol (Albuterol 2.5 Mg/3 Ml Nebu) 2.5 mg IH Q4HRT PRN PRN Reason: Shortness Of Breath Albuterol/Ipratropium (Ipratropium/Albuterol Sulfate 3 Ml Ampul.Neb) 1 ampul IH Q6HRT [facility] Last Admin: 11/30/20 19:08 Dose: 1 ampul Documented by: Lipase/Protease/Amylase (Lipase 10,500/Protease 25,000/Amylase 43,750 (Units) Dr Cyr) 1 each FEEDTUBE PRN PRN PRN Reason: For Clogged Feeding Tube Aspirin (Aspirin 81 Mg Tab Chew) 81 mg PO QDAY [facility] Last Admin: 11/30/20 09:24 Dose: 81 mg Documented by: Atorvastatin Calcium (Atorvastatin 40 Mg Tab) 40 mg PO QHS [facility] Last Admin: 11/29/20 21:13 Dose: 40 mg Documented by: Budesonide (Budesonide 0.5 Mg/2 Ml Nebu) 0.5 mg IH Q12HRT [facility] Last Admin: 11/30/20 19:08 Dose: 0.5 mg Documented by: Carvedilol (Carvedilol 3.125 Mg Tab) 3.125 mg PO BID [facility] Last Admin: 11/30/20 09:23 Dose: 3.125 mg Documented by: Haloperidol Lactate (Haloperidol Lactate 5 Mg/1 Ml Inj) 5 mg IV Q6H PRN PRN Reason: Agitation Last Admin: 11/29/20 20:54 Dose: 5 mg Documented by: Heparin Sodium (Porcine) (Heparin 5,000 Unit/1 Ml Vial) 5,000 unit SUB-Q Q8HR [facility] Last Admin: 11/30/20 14:02 Dose: 5,000 unit Documented by: Hydralazine HCl (Hydralazine 20 Mg/1 Ml Inj) 10 mg IV Q6H PRN PRN Reason: Blood Pressure Last Admin: 11/29/20 20:08 Dose: 10 mg Documented by: Hydrophilic Ointment (Lip Therapy Vaseline) 1 applic TP Q2HR PRN PRN Reason: Dry Lips Dexmedetomidine HCl 400 mcg/ (Sodium Chloride) 104 mls @ 4.228 mls/hr IV TITRATE [facility]; Protocol Last Titration: 11/30/20 14:30 Dose: 0.2 mcg/kg/hr, 4.228 mls/hr Documented by: Lansoprazole (Lansoprazole 30 Mg Solutab) 30 mg FEEDTUBE QDAY [facility] Last Admin: 11/30/20 09:24 Dose: 30 mg Documented by: Methylprednisolone Sodium Succinate (Methylprednisolone Sod Succinate 125 Mg/2 Ml Inj) 20 mg IV Q8HR [facility] Last Admin: 11/30/20 14:03 Dose: 20 mg Documented by: Multi-Ingred Cream/Lotion/Oil/Oint (Mineral Oil/Petrolatum, White Ophth Oint 3.5 Gm) 1 applic OU Q4HR PRN PRN Reason: Dry Eye(s) Nitroglycerin (Nitroglycerin 0.4 Mg Tab Subl) 0.4 mg SL Q5M PRN PRN Reason: Chest Pain Ondansetron HCl (Ondansetron 4 Mg/2 Ml Inj) 4 mg IV Q8H PRN PRN Reason: Nausea And Vomiting Quetiapine Fumarate (Quetiapine 25 Mg Tab) 25 mg PO BID [facility] Last Admin: 11/30/20 09:24 Dose: 25 mg Documented by: Senna/Docusate Sodium (Sennosides/Docusate Sodium 8.6/50 Mg Tab) 1 tab FEEDTUBE BID [facility] Last Admin: 11/30/20 09:24 Dose: 1 tab Documented by: Simple Syrup (Simple Syrup 15 Ml) 15 ml FEEDTUBE PRN PRN PRN Reason: Hypoglycemia Simple Syrup (Simple Syrup 15 Ml) 30 ml FEEDTUBE PRN PRN PRN Reason: Hypoglycemia Sodium Bicarbonate (Sodium Bicarbonate 325 Mg Tab) 325 mg FEEDTUBE PRN PRN PRN Reason: For Clogged Feeding Tube Sodium Chloride (Sodium Chloride 0.9% 10 Ml Flush Syringe) 10 ml IV BID [facility] Last Admin: 11/30/20 09:25 Dose: 10 ml Documented by: Sodium Chloride (Sodium Chloride 0.9% 10 Ml Flush Syringe) 10 ml IV PRN PRN PRN Reason: LINE FLUSH Tamsulosin HCl (Tamsulosin 0.4 Mg Cap) 0.4 mg PO DAILY [facility] Last Admin: 11/30/20 09:22 Dose: 0.4 mg Documented by: Objective Vital Signs - 12hr 11/30/20 11/30/20 11/30/20 08:25 08:42 09:01 Temperature 98.2 F Pulse Rate 61 Pulse Rate [ Anterior Bilateral Throughout] Pulse Rate [ From Monitor] Respiratory 24 Rate Respiratory Rate [Anterior Bilateral Throughout] Blood Pressure 99/45 O2 Sat by Pulse 96 92 Oximetry 11/30/20 11/30/20 11/30/20 09:23 10:01 11:01 Temperature Pulse Rate 103 H 67 85 Pulse Rate [ Anterior Bilateral Throughout] Pulse Rate [ From Monitor] Respiratory 25 H 28 H Rate Respiratory Rate [Anterior Bilateral Throughout] Blood Pressure 161/76 88/49 164/71 O2 Sat by Pulse 94 98 Oximetry 11/30/20 11/30/20 11/30/20 11:52 12:00 13:00 Temperature 97.9 F Pulse Rate 86 67 Pulse Rate [ Anterior Bilateral Throughout] Pulse Rate [ 68 From Monitor] Respiratory 19 19 Rate Respiratory Rate [Anterior Bilateral Throughout] Blood Pressure 148/73 122/53 O2 Sat by Pulse 95 93 Oximetry 11/30/20 11/30/20 11/30/20 14:00 14:02 15:00 Temperature Pulse Rate 61 85 Pulse Rate [ 61 Anterior Bilateral Throughout] Pulse Rate [ From Monitor] Respiratory 26 H 25 H Rate Respiratory 18 Rate [Anterior Bilateral Throughout] Blood Pressure 130/57 153/71 O2 Sat by Pulse 98 96 Oximetry 11/30/20 11/30/20 11/30/20 16:00 16:28 17:00 Temperature 98.3 F Pulse Rate 84 63 Pulse Rate [ Anterior Bilateral Throughout] Pulse Rate [ 69 From Monitor] Respiratory 24 26 H Rate Respiratory Rate [Anterior Bilateral Throughout] Blood Pressure 144/65 146/66 O2 Sat by Pulse 94 93 Oximetry 11/30/20 11/30/20 18:00 19:08 Temperature Pulse Rate 81 Pulse Rate [ 74 Anterior Bilateral Throughout] Pulse Rate [ From Monitor] Respiratory 29 H Rate Respiratory 22 Rate [Anterior Bilateral Throughout] Blood Pressure 153/75 O2 Sat by Pulse 92 95 Oximetry Constitutional: no acute distress, alert Eyes: non-icteric ENT: oropharynx moist Neck: supple, other (large in circumference) Effort: normal Ascultation: Bilateral: clear Cardiovascular: other (tachy, no mrg) Gastrointestinal: normoactive bowel sounds, soft, non-tender, non-distended Extremities: no cyanosis, no edema, pink and warm Neurologic: normal mental status, non-focal exam, pupils equal and round Psychiatric: mood appropriate, affect normal CBC and BMP: 11/28/20 09:21 11/30/20 04:47 ABG, PT/INR, D-dimer: ABG ABG pH 7.281 (7.320-7.450) L 11/24/20 01:48 POC ABG pCO2 58.4 mmHg (32.0-48.0) H 11/24/20 01:48 POC ABG pO2 98.1 mmHg (83-108) 11/24/20 01:48 POC ABG HCO3 26.9 11/24/20 01:48 ABG O2 Saturation 96.9 (0-100) 11/24/20 01:48 PT/INR, D-dimer PT 13.5 Sec. (12.2-14.9) 11/21/20 20:50 INR 0.98 (0.87-1.13) 11/21/20 20:50 Abnormal lab findings: Abnormal Labs 11/21/20 11/21/20 11/22/20 20:50 20:50 00:11 WBC RBC 3.48 L Hgb 11.1 L Hct 34.3 L MCV 99 H Lymph % (Auto) 6.8 L [place] % (Auto) Lymph # (Auto) 0.6 L [place] # (Auto) Seg Neutrophils % 85.5 H Seg Neuts % (Manual) Nucleated RBC % Seg Neutrophils # Seg Neutrophils # Man Lymphocytes # (Manual) ABG pH POC ABG pCO2 POC ABG pO2 ABG Hemoglobin ABG Sodium ABG Potassium ABG Glucose Carboxyhemoglobin Sodium 130 L Potassium 7.3 H* Chloride 91.1 L Carbon Dioxide BUN 40 H Creatinine 2.1 H Glucose 195 H POC Glucose Lactic Acid Calcium Phosphorus AST 91 H ALT 65 H CK-MB (CK-2) Rel Index 4.1 H Troponin T 0.045 H NT-Pro-B Natriuret Pep 6998 H Serum Total Protein Total Protein Albumin 3.7 L Trdqy-5-Nmzifrjtm Gamma Globulins PEP Interpretation HDL Cholesterol 60 H Arterial Blood Glucose Arterial Blood Ionized Calcium Urine WBC (Auto) Urine Creatinine 158.2 H Hepatitis C Antibody 11/22/20 11/22/20 11/22/20 00:23 00:40 01:37 WBC 14.1 H RBC 3.53 L Hgb 11.0 L Hct 34.1 L MCV 97 H Lymph % (Auto) 12.3 L [place] % (Auto) 14.2 H Lymph # (Auto) [place] # (Auto) 2.0 H Seg Neutrophils % 72.3 H Seg Neuts % (Manual) Nucleated RBC % Seg Neutrophils # 10.2 H Seg Neutrophils # Man Lymphocytes # (Manual) ABG pH POC ABG pCO2 POC ABG pO2 ABG Hemoglobin ABG Sodium ABG Potassium ABG Glucose Carboxyhemoglobin Sodium Potassium 5.1 H D Chloride Carbon Dioxide BUN Creatinine Glucose POC Glucose Lactic Acid 2.10 H* Calcium Phosphorus AST ALT CK-MB (CK-2) Rel Index Troponin T NT-Pro-B Natriuret Pep Serum Total Protein Total Protein Albumin Mvzzm-5-Blorbdkqe Gamma Globulins PEP Interpretation HDL Cholesterol Arterial Blood Glucose Arterial Blood Ionized Calcium Urine WBC (Auto) Urine Creatinine Hepatitis C Antibody 11/22/20 11/22/20 11/22/20 01:37 03:20 05:00 WBC RBC Hgb Hct MCV Lymph % (Auto) [place] % (Auto) Lymph # (Auto) [place] # (Auto) Seg Neutrophils % Seg Neuts % (Manual) Nucleated RBC % Seg Neutrophils # Seg Neutrophils # Man Lymphocytes # (Manual) ABG pH POC ABG pCO2 58.4 H POC ABG pO2 ABG Hemoglobin 11.1 L ABG Sodium 135.1 L ABG Potassium 5.0 H ABG Glucose Carboxyhemoglobin Sodium Potassium 5.1 H Chloride Carbon Dioxide 31 H BUN 40 H Creatinine 2.0 H Glucose 49 L POC Glucose Lactic Acid Calcium Phosphorus AST ALT CK-MB (CK-2) Rel Index Troponin T NT-Pro-B Natriuret Pep Serum Total Protein Total Protein Albumin Qbhyq-5-Gxxkjmzog Gamma Globulins PEP Interpretation HDL Cholesterol Arterial Blood Glucose Arterial Blood Ionized Calcium Urine WBC (Auto) 33.0 H Urine Creatinine Hepatitis C Antibody 11/22/20 11/22/20 11/22/20 05:00 05:00 05:00 WBC RBC Hgb Hct MCV Lymph % (Auto) [place] % (Auto) Lymph # (Auto) [place] # (Auto) Seg Neutrophils % Seg Neuts % (Manual) Nucleated RBC % Seg Neutrophils # Seg Neutrophils # Man Lymphocytes # (Manual) ABG pH POC ABG pCO2 POC ABG pO2 ABG Hemoglobin ABG Sodium ABG Potassium ABG Glucose Carboxyhemoglobin Sodium 136 L Potassium Chloride 97.8 L Carbon Dioxide BUN 41 H Creatinine 1.8 H 1.8 H Glucose POC Glucose Lactic Acid Calcium 8.2 L Phosphorus AST ALT CK-MB (CK-2) Rel Index Troponin T 0.065 H D NT-Pro-B Natriuret Pep Serum Total Protein Total Protein Albumin Iighr-4-Cpmktkurq Gamma Globulins PEP Interpretation HDL Cholesterol Arterial Blood Glucose Arterial Blood Ionized Calcium Urine WBC (Auto) Urine Creatinine Hepatitis C Antibody 11/22/20 11/22/20 11/22/20 10:20 10:20 15:00 WBC RBC 3.16 L Hgb 10.2 L Hct 29.9 L MCV 95 H Lymph % (Auto) [place] % (Auto) Lymph # (Auto) [place] # (Auto) Seg Neutrophils % Seg Neuts % (Manual) Nucleated RBC % Seg Neutrophils # Seg Neutrophils # Man Lymphocytes # (Manual) ABG pH 7.501 H POC ABG pCO2 POC ABG pO2 ABG Hemoglobin 10.5 L ABG Sodium 134.9 L ABG Potassium ABG Glucose 115 H Carboxyhemoglobin 0.4 L Sodium Potassium Chloride Carbon Dioxide BUN Creatinine Glucose POC Glucose Lactic Acid Calcium Phosphorus AST ALT CK-MB (CK-2) Rel Index Troponin T 0.078 H NT-Pro-B Natriuret Pep Serum Total Protein Total Protein Albumin Dmrki-6-Qyhuinuqd Gamma Globulins PEP Interpretation HDL Cholesterol Arterial Blood Glucose 115 H Arterial Blood Ionized Calcium 4.3 L Urine WBC (Auto) Urine Creatinine Hepatitis C Antibody 11/22/20 11/22/20 11/22/20 16:00 17:45 23:21 WBC RBC Hgb Hct MCV Lymph % (Auto) [place] % (Auto) Lymph # (Auto) [place] # (Auto) Seg Neutrophils % Seg Neuts % (Manual) Nucleated RBC % Seg Neutrophils # Seg Neutrophils # Man Lymphocytes # (Manual) ABG pH POC ABG pCO2 POC ABG pO2 ABG Hemoglobin ABG Sodium ABG Potassium ABG Glucose Carboxyhemoglobin Sodium Potassium Chloride Carbon Dioxide BUN Creatinine Glucose POC Glucose 107 H 115 H Lactic Acid Calcium Phosphorus AST ALT CK-MB (CK-2) Rel Index Troponin T NT-Pro-B Natriuret Pep Serum Total Protein Total Protein Albumin Qzsza-4-Rcyfjmoyl Gamma Globulins PEP Interpretation HDL Cholesterol Arterial Blood Glucose Arterial Blood Ionized Calcium Urine WBC (Auto) Urine Creatinine Hepatitis C Antibody Reactive A 11/23/20 11/23/20 11/23/20 03:03 05:33 10:00 WBC RBC 3.33 L Hgb 10.6 L Hct 32.2 L MCV 97 H Lymph % (Auto) [place] % (Auto) 15.0 H Lymph # (Auto) [place] # (Auto) 1.5 H Seg Neutrophils % Seg Neuts % (Manual) Nucleated RBC % Seg Neutrophils # Seg Neutrophils # Man Lymphocytes # (Manual) ABG pH POC ABG pCO2 POC ABG pO2 115.8 H ABG Hemoglobin 10.1 L ABG Sodium 135.8 L ABG Potassium ABG Glucose 98 H Carboxyhemoglobin 0.4 L Sodium Potassium Chloride Carbon Dioxide BUN Creatinine Glucose POC Glucose 106 H Lactic Acid Calcium Phosphorus AST ALT CK-MB (CK-2) Rel Index Troponin T NT-Pro-B Natriuret Pep Serum Total Protein Total Protein Albumin Rgvlj-7-Ajbcyudmg Gamma Globulins PEP Interpretation HDL Cholesterol Arterial Blood Glucose 98 H Arterial Blood Ionized Calcium 4.4 L Urine WBC (Auto) Urine Creatinine Hepatitis C Antibody 11/23/20 11/23/20 11/23/20 10:00 10:00 12:12 WBC RBC Hgb Hct MCV Lymph % (Auto) [place] % (Auto) Lymph # (Auto) [place] # (Auto) Seg Neutrophils % Seg Neuts % (Manual) Nucleated RBC % Seg Neutrophils # Seg Neutrophils # Man Lymphocytes # (Manual) ABG pH POC ABG pCO2 POC ABG pO2 ABG Hemoglobin ABG Sodium ABG Potassium ABG Glucose Carboxyhemoglobin Sodium Potassium Chloride Carbon Dioxide BUN 22 H Creatinine Glucose 101 H POC Glucose 119 H Lactic Acid Calcium 7.9 L Phosphorus AST ALT CK-MB (CK-2) Rel Index Troponin T NT-Pro-B Natriuret Pep Serum Total Protein 5.3 L Total Protein 5.5 L Albumin 2.8 L 2.8 L Tkqri-2-Pypzqzpdu 0.4 H Gamma Globulins 0.7 L PEP Interpretation see below H HDL Cholesterol Arterial Blood Glucose Arterial Blood Ionized Calcium Urine WBC (Auto) Urine Creatinine Hepatitis C Antibody 11/23/20 11/23/20 11/24/20 18:21 23:28 01:48 WBC RBC Hgb Hct MCV Lymph % (Auto) [place] % (Auto) Lymph # (Auto) [place] # (Auto) Seg Neutrophils % Seg Neuts % (Manual) Nucleated RBC % Seg Neutrophils # Seg Neutrophils # Man Lymphocytes # (Manual) ABG pH 7.281 L POC ABG pCO2 58.4 H POC ABG pO2 ABG Hemoglobin 11.8 L ABG Sodium ABG Potassium ABG Glucose 101 H Carboxyhemoglobin Sodium Potassium Chloride Carbon Dioxide BUN Creatinine Glucose POC Glucose 106 H 108 H Lactic Acid Calcium Phosphorus AST ALT CK-MB (CK-2) Rel Index Troponin T NT-Pro-B Natriuret Pep Serum Total Protein Total Protein Albumin Xhepd-5-Jpyplpnmy Gamma Globulins PEP Interpretation HDL Cholesterol Arterial Blood Glucose 101 H Arterial Blood Ionized Calcium Urine WBC (Auto) Urine Creatinine Hepatitis C Antibody 11/24/20 11/24/20 11/25/20 09:58 09:58 00:29 WBC RBC Hgb Hct MCV Lymph % (Auto) [place] % (Auto) Lymph # (Auto) [place] # (Auto) Seg Neutrophils % Seg Neuts % (Manual) Nucleated RBC % Seg Neutrophils # Seg Neutrophils # Man Lymphocytes # (Manual) ABG pH POC ABG pCO2 POC ABG pO2 ABG Hemoglobin ABG Sodium ABG Potassium ABG Glucose Carboxyhemoglobin Sodium 148 H Potassium Chloride Carbon Dioxide 34 H D BUN Creatinine Glucose POC Glucose 111 H Lactic Acid 0.60 L Calcium Phosphorus AST ALT CK-MB (CK-2) Rel Index Troponin T NT-Pro-B Natriuret Pep Serum Total Protein Total Protein Albumin Xcyiy-7-Ylouqmxgj Gamma Globulins PEP Interpretation HDL Cholesterol Arterial Blood Glucose Arterial Blood Ionized Calcium Urine WBC (Auto) Urine Creatinine Hepatitis C Antibody 11/25/20 11/25/20 11/25/20 05:48 08:18 08:18 WBC 13.2 H RBC 3.56 L Hgb 10.9 L Hct 34.0 L MCV 96 H Lymph % (Auto) [place] % (Auto) Lymph # (Auto) [place] # (Auto) Seg Neutrophils % Seg Neuts % (Manual) 98.0 H Nucleated RBC % 1.0 H Seg Neutrophils # Seg Neutrophils # Man 12.9 H Lymphocytes # (Manual) 0.0 L ABG pH POC ABG pCO2 POC ABG pO2 ABG Hemoglobin ABG Sodium ABG Potassium ABG Glucose Carboxyhemoglobin Sodium 147 H Potassium Chloride Carbon Dioxide 32 H BUN 26 H Creatinine Glucose 151 H POC Glucose 148 H Lactic Acid Calcium Phosphorus AST ALT CK-MB (CK-2) Rel Index Troponin T NT-Pro-B Natriuret Pep Serum Total Protein Total Protein 6.0 L Albumin 3.7 L Xstxz-8-Njirbivkx Gamma Globulins PEP Interpretation HDL Cholesterol Arterial Blood Glucose Arterial Blood Ionized Calcium Urine WBC (Auto) Urine Creatinine Hepatitis C Antibody 11/25/20 11/25/20 11/25/20 11:34 18:03 23:15 WBC RBC Hgb Hct MCV Lymph % (Auto) [place] % (Auto) Lymph # (Auto) [place] # (Auto) Seg Neutrophils % Seg Neuts % (Manual) Nucleated RBC % Seg Neutrophils # Seg Neutrophils # Man Lymphocytes # (Manual) ABG pH POC ABG pCO2 POC ABG pO2 ABG Hemoglobin ABG Sodium ABG Potassium ABG Glucose Carboxyhemoglobin Sodium Potassium Chloride Carbon Dioxide BUN Creatinine Glucose POC Glucose 144 H 147 H 158 H Lactic Acid Calcium Phosphorus AST ALT CK-MB (CK-2) Rel Index Troponin T NT-Pro-B Natriuret Pep Serum Total Protein Total Protein Albumin Akbhq-5-Jhezbvvpf Gamma Globulins PEP Interpretation HDL Cholesterol Arterial Blood Glucose Arterial Blood Ionized Calcium Urine WBC (Auto) Urine Creatinine Hepatitis C Antibody 11/26/20 11/26/20 11/26/20 05:07 06:22 06:22 WBC 12.3 H RBC 3.52 L Hgb 11.1 L Hct 33.6 L MCV 95 H Lymph % (Auto) [place] % (Auto) Lymph # (Auto) [place] # (Auto) Seg Neutrophils % Seg Neuts % (Manual) Nucleated RBC % Seg Neutrophils # Seg Neutrophils # Man Lymphocytes # (Manual) ABG pH POC ABG pCO2 POC ABG pO2 ABG Hemoglobin ABG Sodium ABG Potassium ABG Glucose Carboxyhemoglobin Sodium Potassium 3.3 L Chloride 95.8 L Carbon Dioxide 33 H BUN 35 H Creatinine 1.4 H Glucose 185 H POC Glucose 184 H Lactic Acid Calcium Phosphorus AST ALT CK-MB (CK-2) Rel Index Troponin T 0.036 H D NT-Pro-B Natriuret Pep Serum Total Protein Total Protein 6.2 L Albumin 3.1 L Czipn-5-Ecvqiieiz Gamma Globulins PEP Interpretation HDL Cholesterol Arterial Blood Glucose Arterial Blood Ionized Calcium Urine WBC (Auto) Urine Creatinine Hepatitis C Antibody 11/26/20 11/26/20 11/26/20 12:52 17:30 23:14 WBC RBC Hgb Hct MCV Lymph % (Auto) [place] % (Auto) Lymph # (Auto) [place] # (Auto) Seg Neutrophils % Seg Neuts % (Manual) Nucleated RBC % Seg Neutrophils # Seg Neutrophils # Man Lymphocytes # (Manual) ABG pH POC ABG pCO2 POC ABG pO2 ABG Hemoglobin ABG Sodium ABG Potassium ABG Glucose Carboxyhemoglobin Sodium Potassium Chloride Carbon Dioxide BUN Creatinine Glucose POC Glucose 170 H 133 H 149 H Lactic Acid Calcium Phosphorus AST ALT CK-MB (CK-2) Rel Index Troponin T NT-Pro-B Natriuret Pep Serum Total Protein Total Protein Albumin Arkey-4-Enxetmtjl Gamma Globulins PEP Interpretation HDL Cholesterol Arterial Blood Glucose Arterial Blood Ionized Calcium Urine WBC (Auto) Urine Creatinine Hepatitis C Antibody 11/27/20 11/27/20 11/27/20 05:35 08:03 12:02 WBC RBC Hgb Hct MCV Lymph % (Auto) [place] % (Auto) Lymph # (Auto) [place] # (Auto) Seg Neutrophils % Seg Neuts % (Manual) Nucleated RBC % Seg Neutrophils # Seg Neutrophils # Man Lymphocytes # (Manual) ABG pH POC ABG pCO2 POC ABG pO2 ABG Hemoglobin ABG Sodium ABG Potassium ABG Glucose Carboxyhemoglobin Sodium Potassium Chloride 97.0 L Carbon Dioxide 31 H BUN 41 H Creatinine 1.4 H Glucose 145 H POC Glucose 135 H 139 H Lactic Acid Calcium Phosphorus 2.20 L AST ALT CK-MB (CK-2) Rel Index Troponin T NT-Pro-B Natriuret Pep Serum Total Protein Total Protein Albumin Ulufb-5-Nyvokwjaz Gamma Globulins PEP Interpretation HDL Cholesterol Arterial Blood Glucose Arterial Blood Ionized Calcium Urine WBC (Auto) Urine Creatinine Hepatitis C Antibody 11/27/20 11/28/20 11/28/20 18:41 05:26 06:08 WBC RBC Hgb Hct MCV Lymph % (Auto) [place] % (Auto) Lymph # (Auto) [place] # (Auto) Seg Neutrophils % Seg Neuts % (Manual) Nucleated RBC % Seg Neutrophils # Seg Neutrophils # Man Lymphocytes # (Manual) ABG pH POC ABG pCO2 POC ABG pO2 ABG Hemoglobin ABG Sodium ABG Potassium ABG Glucose Carboxyhemoglobin Sodium Potassium Chloride Carbon Dioxide BUN 45 H Creatinine 1.4 H Glucose 135 H POC Glucose 148 H 143 H Lactic Acid Calcium Phosphorus AST ALT CK-MB (CK-2) Rel Index Troponin T NT-Pro-B Natriuret Pep Serum Total Protein Total Protein Albumin Ecanb-9-Itkbcovnu Gamma Globulins PEP Interpretation HDL Cholesterol Arterial Blood Glucose Arterial Blood Ionized Calcium Urine WBC (Auto) Urine Creatinine Hepatitis C Antibody 11/28/20 11/28/20 11/28/20 11:46 17:31 21:17 WBC RBC Hgb Hct MCV Lymph % (Auto) [place] % (Auto) Lymph # (Auto) [place] # (Auto) Seg Neutrophils % Seg Neuts % (Manual) Nucleated RBC % Seg Neutrophils # Seg Neutrophils # Man Lymphocytes # (Manual) ABG pH POC ABG pCO2 POC ABG pO2 ABG Hemoglobin ABG Sodium ABG Potassium ABG Glucose Carboxyhemoglobin Sodium Potassium Chloride Carbon Dioxide BUN Creatinine Glucose POC Glucose 132 H 156 H 122 H Lactic Acid Calcium Phosphorus AST ALT CK-MB (CK-2) Rel Index Troponin T NT-Pro-B Natriuret Pep Serum Total Protein Total Protein Albumin Jfmpp-2-Wptkamuks Gamma Globulins PEP Interpretation HDL Cholesterol Arterial Blood Glucose Arterial Blood Ionized Calcium Urine WBC (Auto) Urine Creatinine Hepatitis C Antibody 11/29/20 11/29/20 11/29/20 00:06 04:43 05:15 WBC RBC Hgb Hct MCV Lymph % (Auto) [place] % (Auto) Lymph # (Auto) [place] # (Auto) Seg Neutrophils % Seg Neuts % (Manual) Nucleated RBC % Seg Neutrophils # Seg Neutrophils # Man Lymphocytes # (Manual) ABG pH POC ABG pCO2 POC ABG pO2 ABG Hemoglobin ABG Sodium ABG Potassium ABG Glucose Carboxyhemoglobin Sodium Potassium Chloride 97.7 L Carbon Dioxide BUN 56 H Creatinine 1.6 H Glucose 132 H POC Glucose 114 H 125 H Lactic Acid Calcium Phosphorus AST ALT CK-MB (CK-2) Rel Index Troponin T NT-Pro-B Natriuret Pep Serum Total Protein Total Protein Albumin Oddkq-9-Jtxequcip Gamma Globulins PEP Interpretation HDL Cholesterol Arterial Blood Glucose Arterial Blood Ionized Calcium Urine WBC (Auto) Urine Creatinine Hepatitis C Antibody 11/29/20 11/29/20 11/30/20 12:09 18:12 04:47 WBC RBC Hgb Hct MCV Lymph % (Auto) [place] % (Auto) Lymph # (Auto) [place] # (Auto) Seg Neutrophils % Seg Neuts % (Manual) Nucleated RBC % Seg Neutrophils # Seg Neutrophils # Man Lymphocytes # (Manual) ABG pH POC ABG pCO2 POC ABG pO2 ABG Hemoglobin ABG Sodium ABG Potassium ABG Glucose Carboxyhemoglobin Sodium Potassium Chloride Carbon Dioxide 31 H BUN 59 H Creatinine 1.6 H Glucose 122 H POC Glucose 142 H 132 H Lactic Acid Calcium Phosphorus AST ALT CK-MB (CK-2) Rel Index Troponin T NT-Pro-B Natriuret Pep Serum Total Protein Total Protein Albumin Pmgro-5-Ctwmxryjf Gamma Globulins PEP Interpretation HDL Cholesterol Arterial Blood Glucose Arterial Blood Ionized Calcium Urine WBC (Auto) Urine Creatinine Hepatitis C Antibody 11/30/20 11/30/20 11/30/20 05:45 11:47 18:16 WBC RBC Hgb Hct MCV Lymph % (Auto) [place] % (Auto) Lymph # (Auto) [place] # (Auto) Seg Neutrophils % Seg Neuts % (Manual) Nucleated RBC % Seg Neutrophils # Seg Neutrophils # Man Lymphocytes # (Manual) ABG pH POC ABG pCO2 POC ABG pO2 ABG Hemoglobin ABG Sodium ABG Potassium ABG Glucose Carboxyhemoglobin Sodium Potassium Chloride Carbon Dioxide BUN Creatinine Glucose POC Glucose 118 H 123 H 126 H Lactic Acid Calcium Phosphorus AST ALT CK-MB (CK-2) Rel Index Troponin T NT-Pro-B Natriuret Pep Serum Total Protein Total Protein Albumin Xrbsr-7-Dyhpjzmnv Gamma Globulins PEP Interpretation HDL Cholesterol Arterial Blood Glucose Arterial Blood Ionized Calcium Urine WBC (Auto) Urine Creatinine Hepatitis C Antibody Chest x-ray: report reviewed, image reviewed
[2020-11-30] MEDS: hydrALAZINE 20 MG/1 ML INJ IV PRN (22:38)
[2020-12-01] MEDS: IPRATROPIUM/ALBUTEROL SULFATE 3 ML AMPUL.NEB IH SCH ×4 (03:13→19:57)
[2020-12-01 05:37] LABS: Calcium 8.6 mg/dL (8.4-10.2)
[2020-12-01] MEDS: methylPREDNISolone Sod Succinate 125 MG/2 ML INJ IV SCH ×3 (07:07→21:44)
[2020-12-01] MEDS: HEPARIN 5,000 UNIT/1 ML VIAL SUB-Q SCH ×3 (07:07→21:43)
[2020-12-01] MEDS: BUDESONIDE 0.5 MG/2 ML NEBU IH SCH ×2 (07:22→19:58)
[2020-12-01] MEDS: LANSOPRAZOLE 30 MG SOLUTAB FEEDTUBE SCH (09:25)
[2020-12-01] MEDS: SENNOSIDES/DOCUSATE SODIUM 8.6/50 MG TAB FEEDTUBE SCH ×2 (09:25→21:43)
[2020-12-01] MEDS: carvediloL 3.125 MG TAB PO SCH ×2 (09:25→21:42)
[2020-12-01] MEDS: ASPIRIN 81 MG TAB CHEW PO SCH (09:25)
[2020-12-01] MEDS: QUEtiapine 25 MG TAB PO SCH ×2 (09:25→21:44)
[2020-12-01] MEDS: TAMSULOSIN 0.4 MG CAP PO SCH (09:25)
[2020-12-01] MEDS: ACETAMINOPHEN 325 MG TAB PO PRN ×2 (09:37→21:45)
--- NOTE | 2020-12-01 11:01 | Progress Note ---
Assessment and Plan Impression * Acute kidney injury * Severe hyperkalemia * Respiratory failure * Coronary artery disease * Hypertension * COPD * Bladder cancer * Hepatitis C Recommendations * Hyperkalemia has been corrected with aggressive medical management. * Renal function is stable with creatinine 1.6->1.4, Patient is also currently nonoliguric with >1L urine output * Avoid diuretics as able * His urine shows 1+ dipstick protein and large blood. Fractional excretion of sodium is 0.4%. He most likely has a prerenal component. However given his microhematuria need to rule out vasculitis. Vasculitis work-up as ordered- complements WNL, ANCA/INGA negative, HCV ab is positive * Renal ultrasound shows atrophic left kidney. No obstruction. * Monitor fluid status and electrolytes closely * Avoid nephrotoxins Subjective Date of service: 12/01/20 Principal diagnosis: Acute respiratory failure Interval history: Resting this AM, on HFNC with FiO2 35%, 25L Objective - Exam Narrative Exam: Constitutional: no acute distress Head: NC/AT Neck: supple Lungs: clear to auscultation, on HFNC CV: RRR, no M/R/G Abdomen: soft, non-tender, bowel sounds present Back: nontender Extremities: no edema, pulses WNL Skin: intact Neuro: no focal deficits, drowsy - Vital Signs Vital signs: Vital Signs - 12hr 11/30/20 11/30/20 11/30/20 23:00 23:16 23:26 Temperature Pulse Rate 86 89 Pulse Rate [ Anterior Bilateral Throughout] Pulse Rate [ From Monitor] Respiratory 18 25 H 20 Rate Respiratory Rate [Anterior Bilateral Throughout] Blood Pressure 148/72 148/72 O2 Sat by Pulse 91 95 Oximetry 11/30/20 11/30/20 12/01/20 23:30 23:46 00:00 Temperature 97.8 F Pulse Rate 91 H 92 H 91 H Pulse Rate [ Anterior Bilateral Throughout] Pulse Rate [ From Monitor] Respiratory 21 21 21 Rate Respiratory Rate [Anterior Bilateral Throughout] Blood Pressure 148/72 148/72 152/76 O2 Sat by Pulse 96 96 95 Oximetry 12/01/20 12/01/20 12/01/20 00:16 00:30 00:46 Temperature Pulse Rate 87 89 88 Pulse Rate [ Anterior Bilateral Throughout] Pulse Rate [ From Monitor] Respiratory 28 H 30 H 14 Rate Respiratory Rate [Anterior Bilateral Throughout] Blood Pressure 152/76 152/76 152/76 O2 Sat by Pulse 91 96 94 Oximetry 12/01/20 12/01/20 12/01/20 01:00 01:16 01:30 Temperature Pulse Rate 90 95 H 94 H Pulse Rate [ Anterior Bilateral Throughout] Pulse Rate [ From Monitor] Respiratory 25 H 23 22 Rate Respiratory Rate [Anterior Bilateral Throughout] Blood Pressure 161/86 161/86 161/86 O2 Sat by Pulse 94 96 96 Oximetry 12/01/20 12/01/20 12/01/20 01:46 02:00 02:16 Temperature Pulse Rate 96 H 88 84 Pulse Rate [ 97 H Anterior Bilateral Throughout] Pulse Rate [ From Monitor] Respiratory 28 H 26 H 23 Rate Respiratory 25 H Rate [Anterior Bilateral Throughout] Blood Pressure 161/86 141/70 141/70 O2 Sat by Pulse 94 94 86 Oximetry 12/01/20 12/01/20 12/01/20 02:46 03:00 03:16 Temperature Pulse Rate 80 92 H 94 H Pulse Rate [ Anterior Bilateral Throughout] Pulse Rate [ From Monitor] Respiratory 22 25 H 29 H Rate Respiratory Rate [Anterior Bilateral Throughout] Blood Pressure 141/70 153/78 153/78 O2 Sat by Pulse 94 93 94 Oximetry 12/01/20 12/01/20 12/01/20 03:30 03:46 04:00 Temperature Pulse Rate 89 81 83 Pulse Rate [ Anterior Bilateral Throughout] Pulse Rate [ 89 From Monitor] Respiratory 22 26 H Rate Respiratory Rate [Anterior Bilateral Throughout] Blood Pressure 153/78 153/78 O2 Sat by Pulse 95 94 Oximetry 12/01/20 12/01/20 12/01/20 04:06 04:16 04:46 Temperature 97.5 F L Pulse Rate 79 61 Pulse Rate [ Anterior Bilateral Throughout] Pulse Rate [ From Monitor] Respiratory 14 13 Rate Respiratory Rate [Anterior Bilateral Throughout] Blood Pressure 145/76 145/76 O2 Sat by Pulse 87 98 Oximetry 12/01/20 12/01/20 12/01/20 05:00 05:16 05:30 Temperature Pulse Rate 73 84 81 Pulse Rate [ Anterior Bilateral Throughout] Pulse Rate [ From Monitor] Respiratory 20 25 H 16 Rate Respiratory Rate [Anterior Bilateral Throughout] Blood Pressure 156/81 156/81 156/81 O2 Sat by Pulse 95 98 97 Oximetry 12/01/20 12/01/20 12/01/20 05:46 06:00 06:16 Temperature Pulse Rate 79 85 84 Pulse Rate [ Anterior Bilateral Throughout] Pulse Rate [ From Monitor] Respiratory 19 24 21 Rate Respiratory Rate [Anterior Bilateral Throughout] Blood Pressure 156/81 144/87 144/87 O2 Sat by Pulse 96 94 97 Oximetry 12/01/20 12/01/20 12/01/20 06:30 06:46 07:00 Temperature 98.1 F Pulse Rate 87 87 87 Pulse Rate [ Anterior Bilateral Throughout] Pulse Rate [ From Monitor] Respiratory 25 H 21 24 Rate Respiratory Rate [Anterior Bilateral Throughout] Blood Pressure 144/87 144/87 145/88 O2 Sat by Pulse 96 97 97 Oximetry 12/01/20 12/01/20 12/01/20 07:16 07:22 07:30 Temperature Pulse Rate 92 H 88 Pulse Rate [ 89 Anterior Bilateral Throughout] Pulse Rate [ From Monitor] Respiratory 25 H 21 Rate Respiratory 22 Rate [Anterior Bilateral Throughout] Blood Pressure 145/88 144/87 O2 Sat by Pulse 98 97 97 Oximetry 12/01/20 12/01/20 12/01/20 07:46 08:00 08:16 Temperature Pulse Rate 87 87 84 Pulse Rate [ Anterior Bilateral Throughout] Pulse Rate [ 99 H From Monitor] Respiratory 28 H 23 27 H Rate Respiratory Rate [Anterior Bilateral Throughout] Blood Pressure 144/87 162/85 162/85 O2 Sat by Pulse 98 97 97 Oximetry 12/01/20 12/01/20 12/01/20 08:30 08:46 09:00 Temperature Pulse Rate 89 102 H 96 H Pulse Rate [ Anterior Bilateral Throughout] Pulse Rate [ From Monitor] Respiratory 27 H 16 25 H Rate Respiratory Rate [Anterior Bilateral Throughout] Blood Pressure 162/85 162/85 150/78 O2 Sat by Pulse 97 97 97 Oximetry 12/01/20 12/01/20 12/01/20 09:16 09:25 09:30 Temperature Pulse Rate 99 H 98 H 96 H Pulse Rate [ Anterior Bilateral Throughout] Pulse Rate [ From Monitor] Respiratory 26 H 28 H Rate Respiratory Rate [Anterior Bilateral Throughout] Blood Pressure 150/78 150/78 150/78 O2 Sat by Pulse 97 97 Oximetry 12/01/20 12/01/20 12/01/20 09:46 10:00 10:16 Temperature Pulse Rate 96 H 94 H 89 Pulse Rate [ Anterior Bilateral Throughout] Pulse Rate [ From Monitor] Respiratory 15 27 H 26 H Rate Respiratory Rate [Anterior Bilateral Throughout] Blood Pressure 150/78 165/85 165/85 O2 Sat by Pulse 96 98 96 Oximetry 12/01/20 12/01/20 10:30 10:46 Temperature Pulse Rate 91 H 87 Pulse Rate [ Anterior Bilateral Throughout] Pulse Rate [ From Monitor] Respiratory 22 28 H Rate Respiratory Rate [Anterior Bilateral Throughout] Blood Pressure 165/85 165/85 O2 Sat by Pulse 96 96 Oximetry - Lab 11/28/20 09:21 12/01/20 04:57 Most recent lab results ABG pH 7.281 (7.320-7.450) L 11/24/20 01:48 ABG O2 Saturation 96.9 (0-100) 11/24/20 01:48 Calcium 8.6 mg/dL (8.4-10.2) 12/01/20 04:57 Phosphorus 2.20 mg/dL (2.5-4.5) L 11/27/20 08:03 Magnesium 2.10 mg/dL (1.7-2.3) 11/27/20 08:03 Urine Creatinine 158.2 mg/dL (0.1-20.0) H 11/22/20 00:11 Urine Sodium 39 mmol/L 11/22/20 00:11 Medications & Allergies - Medications Allergies/Adverse Reactions: Allergies No Known Allergies Allergy (Verified 11/11/18 08:08) Home Medications: Home Medications Medication Instructions Recorded Confirmed Last Taken Type Pantoprazole [Protonix TAB] 40 mg PO QDAY #30 tablet 04/11/19 11/22/20 Unknown Rx AtorvaSTATin 20 mg PO QHS 06/13/19 11/22/20 06/12/19 21:00 History Tamsulosin 0.4 mg PO DAILY 06/13/19 11/22/20 06/12/19 21:00 History carvediloL [Coreg] 3.125 mg PO BID 06/13/19 11/22/20 06/11/19 21:00 History Gabapentin 300 mg PO BID 11/22/20 11/22/20 Unknown History Active Medications: Generic Name Dose Route Start Last Admin Trade Name Freq PRN Reason Stop Dose Admin Acetaminophen 650 mg 11/23/20 15:29 12/01/20 09:37 Acetaminophen 325 Mg Tab PO 650 mg Q4H PRN Administration Pain, Mild (1-3) Albuterol 2.5 mg 11/22/20 01:19 Albuterol 2.5 Mg/3 Ml Nebu IH Q4HRT PRN Shortness Of Breath Albuterol/Ipratropium 1 ampul 11/22/20 02:00 12/01/20 07:22 Ipratropium/Albuterol Sulfate 3 Ml Ampul.Neb IH 1 ampul Q6HRT TERESA Administration Lipase/Protease/Amylase 1 each 11/22/20 09:07 Lipase 10,500/Protease 25,000/Amylase 43,750 (Units) Dr Cyr FEEDTUBE PRN PRN For Clogged Feeding Tube Aspirin 81 mg 11/23/20 10:00 12/01/20 09:25 Aspirin 81 Mg Tab Chew PO 81 mg QDAY TERESA Administration Atorvastatin Calcium 40 mg 11/22/20 22:00 11/30/20 22:25 Atorvastatin 40 Mg Tab PO 40 mg QHS TERESA Administration Budesonide 0.5 mg 11/24/20 14:55 12/01/20 07:22 Budesonide 0.5 Mg/2 Ml Nebu IH 0.5 mg Q12HRT TERESA Administration Carvedilol 3.125 mg 11/30/20 10:00 12/01/20 09:25 Carvedilol 3.125 Mg Tab PO 3.125 mg BID TERESA Administration Haloperidol Lactate 5 mg 11/25/20 09:00 11/29/20 20:54 Haloperidol Lactate 5 Mg/1 Ml Inj IV 5 mg Q6H PRN Administration Agitation Heparin Sodium (Porcine) 5,000 unit 11/22/20 06:00 12/01/20 07:07 Heparin 5,000 Unit/1 Ml Vial SUB-Q 5,000 unit Q8HR TERESA Administration Hydralazine HCl 10 mg 11/22/20 01:24 11/30/20 22:38 Hydralazine 20 Mg/1 Ml Inj IV 10 mg Q6H PRN Administration Blood Pressure Hydrophilic Ointment 1 applic 11/22/20 00:38 Lip Therapy Vaseline TP Q2HR PRN Dry Lips Dexmedetomidine HCl 400 mcg/ 104 mls @ 4.228 mls/hr 11/25/20 10:00 12/01/20 04:36 Sodium Chloride IV 0 mcg/kg/hr TITRATE TERESA 0 mls/hr Titration Protocol 0.2 MCG/KG/HR Lansoprazole 30 mg 11/28/20 10:00 12/01/20 09:25 Lansoprazole 30 Mg Solutab FEEDTUBE 30 mg QDAY TERESA Administration Methylprednisolone Sodium Succinate 20 mg 11/29/20 21:00 12/01/20 07:07 Methylprednisolone Sod Succinate 125 Mg/2 Ml Inj IV 20 mg Q8HR TERESA Administration Multi-Ingred Cream/Lotion/Oil/Oint 1 applic 11/22/20 00:38 Mineral Oil/Petrolatum, White Ophth Oint 3.5 Gm OU Q4HR PRN Dry Eye(s) Nitroglycerin 0.4 mg 11/22/20 01:25 Nitroglycerin 0.4 Mg Tab Subl SL Q5M PRN Chest Pain Ondansetron HCl 4 mg 11/22/20 01:19 Ondansetron 4 Mg/2 Ml Inj IV Q8H PRN Nausea And Vomiting Quetiapine Fumarate 25 mg 11/27/20 12:00 12/01/20 09:25 Quetiapine 25 Mg Tab PO 25 mg BID TERESA Administration Senna/Docusate Sodium 1 tab 11/22/20 10:00 12/01/20 09:25 Sennosides/Docusate Sodium 8.6/50 Mg Tab FEEDTUBE 1 tab BID TERESA Administration Simple Syrup 15 ml 11/22/20 09:07 Simple Syrup 15 Ml FEEDTUBE PRN PRN Hypoglycemia Simple Syrup 30 ml 11/22/20 09:07 Simple Syrup 15 Ml FEEDTUBE PRN PRN Hypoglycemia Sodium Bicarbonate 325 mg 11/22/20 09:07 Sodium Bicarbonate 325 Mg Tab FEEDTUBE PRN PRN For Clogged Feeding Tube Sodium Chloride 10 ml 11/22/20 10:00 12/01/20 09:26 Sodium Chloride 0.9% 10 Ml Flush Syringe IV 10 ml BID TERESA Administration Sodium Chloride 10 ml 11/22/20 01:19 Sodium Chloride 0.9% 10 Ml Flush Syringe IV PRN PRN LINE FLUSH Tamsulosin HCl 0.4 mg 11/22/20 10:00 12/01/20 09:25 Tamsulosin 0.4 Mg Cap PO 0.4 mg DAILY TERESA Administration
--- NOTE | 2020-12-01 11:12 | Progress Note ---
Assessment and Plan 85 y/o [place] male admitted with acute hypoxic respiratory failure. 12/01/20: Wean HFNC for sats >88%. Spoke with CM about checking on LTACH but patient may be able to be weaned further now while in house. Will speak with RT about this. If placed on salter, may need to consider transfer to medical/surgical floor with remote tele. 11/28/20: Continue to wean HFNC. Agree with holding Precedex, can increase seroquel if needed to help with mood. Hopeful that over the weekend will be down to nasal cannula and can transfer to the floor. CM working on LTACH evaluation. Patient is stable for transfer, if and when accepted. 11/27/20: Will transfer to step down today. Agree with bedside swallow eval now that patient is more awake. Will try bID seroquel to help with mood and agitation. Hopeful Cr has stablized. Continue steroids at 40q8. Consider LTACH evaluation 11/26/20: 11/25/20: Continue bipap for right now. Added precedex and stopped ativan as this may be worsening agitation. Ok with haldol use. Continue daily diuretics to keep patient net negative. Continue ICU monitoring for now. Renal function is better. Guarded prognosis. 11/23/20: Wean sedation to off. If patient can tolerate being off sedation, will attempt PSV trial, otherwise, will likely have to just stop sedation and extubate, will have bipap ready for as needed purposes. Needs chemistry to assess renal function. Out put was good. 1. Repeat ABG later this afternoon and wean FIO2 according (>88%) 2. Stop sedation, need to assess mental state 3. Follow up renal function and urine output. 4. Guarded prognosis, this is likely acute on chronic respiratory failure. cct 31 minutes. Subjective Date of service: 12/01/20 Principal diagnosis: Acute respiratory failure Interval history: No acute events. on 25 and 35 with good sats. Calm and peaceful, resting in bed, no distress noted. No family present. Objective Vital Signs - 12hr 11/30/20 11/30/20 11/30/20 23:16 23:26 23:30 Temperature Pulse Rate 89 91 H Pulse Rate [ Anterior Bilateral Throughout] Pulse Rate [ From Monitor] Respiratory 25 H 20 21 Rate Respiratory Rate [Anterior Bilateral Throughout] Blood Pressure 148/72 148/72 O2 Sat by Pulse 95 96 Oximetry 11/30/20 12/01/20 12/01/20 23:46 00:00 00:16 Temperature 97.8 F Pulse Rate 92 H 91 H 87 Pulse Rate [ Anterior Bilateral Throughout] Pulse Rate [ From Monitor] Respiratory 21 21 28 H Rate Respiratory Rate [Anterior Bilateral Throughout] Blood Pressure 148/72 152/76 152/76 O2 Sat by Pulse 96 95 91 Oximetry 12/01/20 12/01/20 12/01/20 00:30 00:46 01:00 Temperature Pulse Rate 89 88 90 Pulse Rate [ Anterior Bilateral Throughout] Pulse Rate [ From Monitor] Respiratory 30 H 14 25 H Rate Respiratory Rate [Anterior Bilateral Throughout] Blood Pressure 152/76 152/76 161/86 O2 Sat by Pulse 96 94 94 Oximetry 12/01/20 12/01/20 12/01/20 01:16 01:30 01:46 Temperature Pulse Rate 95 H 94 H 96 H Pulse Rate [ Anterior Bilateral Throughout] Pulse Rate [ From Monitor] Respiratory 23 22 28 H Rate Respiratory Rate [Anterior Bilateral Throughout] Blood Pressure 161/86 161/86 161/86 O2 Sat by Pulse 96 96 94 Oximetry 12/01/20 12/01/20 12/01/20 02:00 02:16 02:46 Temperature Pulse Rate 88 84 80 Pulse Rate [ 97 H Anterior Bilateral Throughout] Pulse Rate [ From Monitor] Respiratory 26 H 23 22 Rate Respiratory 25 H Rate [Anterior Bilateral Throughout] Blood Pressure 141/70 141/70 141/70 O2 Sat by Pulse 94 86 94 Oximetry 12/01/20 12/01/20 12/01/20 03:00 03:16 03:30 Temperature Pulse Rate 92 H 94 H 89 Pulse Rate [ Anterior Bilateral Throughout] Pulse Rate [ 89 From Monitor] Respiratory 25 H 29 H 22 Rate Respiratory Rate [Anterior Bilateral Throughout] Blood Pressure 153/78 153/78 153/78 O2 Sat by Pulse 93 94 95 Oximetry 12/01/20 12/01/20 12/01/20 03:46 04:00 04:06 Temperature 97.5 F L Pulse Rate 81 83 Pulse Rate [ Anterior Bilateral Throughout] Pulse Rate [ From Monitor] Respiratory 26 H Rate Respiratory Rate [Anterior Bilateral Throughout] Blood Pressure 153/78 O2 Sat by Pulse 94 Oximetry 07/12/21 07/12/21 07/12/21 04:16 04:46 05:00 Temperature Pulse Rate 79 61 73 Pulse Rate [ Anterior Bilateral Throughout] Pulse Rate [ From Monitor] Respiratory 14 13 20 Rate Respiratory Rate [Anterior Bilateral Throughout] Blood Pressure 145/76 145/76 156/81 O2 Sat by Pulse 87 98 95 Oximetry 12/01/20 12/01/20 12/01/20 05:16 05:30 05:46 Temperature Pulse Rate 84 81 79 Pulse Rate [ Anterior Bilateral Throughout] Pulse Rate [ From Monitor] Respiratory 25 H 16 19 Rate Respiratory Rate [Anterior Bilateral Throughout] Blood Pressure 156/81 156/81 156/81 O2 Sat by Pulse 98 97 96 Oximetry 12/01/20 12/01/20 12/01/20 06:00 06:16 06:30 Temperature Pulse Rate 85 84 87 Pulse Rate [ Anterior Bilateral Throughout] Pulse Rate [ From Monitor] Respiratory 24 21 25 H Rate Respiratory Rate [Anterior Bilateral Throughout] Blood Pressure 144/87 144/87 144/87 O2 Sat by Pulse 94 97 96 Oximetry 12/01/20 12/01/20 12/01/20 06:46 07:00 07:16 Temperature 98.1 F Pulse Rate 87 87 92 H Pulse Rate [ Anterior Bilateral Throughout] Pulse Rate [ From Monitor] Respiratory 21 24 25 H Rate Respiratory Rate [Anterior Bilateral Throughout] Blood Pressure 144/87 145/88 145/88 O2 Sat by Pulse 97 97 98 Oximetry 12/01/20 12/01/20 12/01/20 07:22 07:30 07:46 Temperature Pulse Rate 88 87 Pulse Rate [ 89 Anterior Bilateral Throughout] Pulse Rate [ From Monitor] Respiratory 21 28 H Rate Respiratory 22 Rate [Anterior Bilateral Throughout] Blood Pressure 144/87 144/87 O2 Sat by Pulse 97 97 98 Oximetry 12/01/20 12/01/20 12/01/20 08:00 08:16 08:30 Temperature Pulse Rate 87 84 89 Pulse Rate [ Anterior Bilateral Throughout] Pulse Rate [ 99 H From Monitor] Respiratory 23 27 H 27 H Rate Respiratory Rate [Anterior Bilateral Throughout] Blood Pressure 162/85 162/85 162/85 O2 Sat by Pulse 97 97 97 Oximetry 12/01/20 12/01/20 12/01/20 08:46 09:00 09:16 Temperature Pulse Rate 102 H 96 H 99 H Pulse Rate [ Anterior Bilateral Throughout] Pulse Rate [ From Monitor] Respiratory 16 25 H 26 H Rate Respiratory Rate [Anterior Bilateral Throughout] Blood Pressure 162/85 150/78 150/78 O2 Sat by Pulse 97 97 97 Oximetry 12/01/20 12/01/20 12/01/20 09:25 09:30 09:46 Temperature Pulse Rate 98 H 96 H 96 H Pulse Rate [ Anterior Bilateral Throughout] Pulse Rate [ From Monitor] Respiratory 28 H 15 Rate Respiratory Rate [Anterior Bilateral Throughout] Blood Pressure 150/78 150/78 150/78 O2 Sat by Pulse 97 96 Oximetry 12/01/20 12/01/20 12/01/20 10:00 10:16 10:30 Temperature Pulse Rate 94 H 89 91 H Pulse Rate [ Anterior Bilateral Throughout] Pulse Rate [ From Monitor] Respiratory 27 H 26 H 22 Rate Respiratory Rate [Anterior Bilateral Throughout] Blood Pressure 165/85 165/85 165/85 O2 Sat by Pulse 98 96 96 Oximetry 12/01/20 10:46 Temperature Pulse Rate 87 Pulse Rate [ Anterior Bilateral Throughout] Pulse Rate [ From Monitor] Respiratory 28 H Rate Respiratory Rate [Anterior Bilateral Throughout] Blood Pressure 165/85 O2 Sat by Pulse 96 Oximetry Constitutional: no acute distress, alert Eyes: non-icteric ENT: oropharynx moist Neck: supple, other (large in circumference) Effort: normal Ascultation: Bilateral: clear, diminished breath sounds, wheezes Percussion: Bilateral: not dull Cardiovascular: other (tachy, no mrg) Gastrointestinal: normoactive bowel sounds, soft, non-tender, non-distended Extremities: no cyanosis, no edema, pink and warm Neurologic: normal mental status, non-focal exam, pupils equal and round Psychiatric: mood appropriate, affect normal CBC and BMP: 11/28/20 09:21 12/01/20 04:57 ABG, PT/INR, D-dimer: ABG ABG pH 7.281 (7.320-7.450) L 11/24/20 01:48 POC ABG pCO2 58.4 mmHg (32.0-48.0) H 11/24/20 01:48 POC ABG pO2 98.1 mmHg (83-108) 11/24/20 01:48 POC ABG HCO3 26.9 11/24/20 01:48 ABG O2 Saturation 96.9 (0-100) 11/24/20 01:48 PT/INR, D-dimer PT 13.5 Sec. (12.2-14.9) 11/21/20 20:50 INR 0.98 (0.87-1.13) 11/21/20 20:50 Abnormal lab findings: Abnormal Labs 11/21/20 11/21/20 11/22/20 20:50 20:50 00:11 WBC RBC 3.48 L Hgb 11.1 L Hct 34.3 L MCV 99 H Lymph % (Auto) 6.8 L [place] % (Auto) Lymph # (Auto) 0.6 L [place] # (Auto) Seg Neutrophils % 85.5 H Seg Neuts % (Manual) Nucleated RBC % Seg Neutrophils # Seg Neutrophils # Man Lymphocytes # (Manual) ABG pH POC ABG pCO2 POC ABG pO2 ABG Hemoglobin ABG Sodium ABG Potassium ABG Glucose Carboxyhemoglobin Sodium 130 L Potassium 7.3 H* Chloride 91.1 L Carbon Dioxide BUN 40 H Creatinine 2.1 H Glucose 195 H POC Glucose Lactic Acid Calcium Phosphorus AST 91 H ALT 65 H CK-MB (CK-2) Rel Index 4.1 H Troponin T 0.045 H NT-Pro-B Natriuret Pep 6998 H Serum Total Protein Total Protein Albumin 3.7 L Yaybx-8-Xiwaqncnj Gamma Globulins PEP Interpretation HDL Cholesterol 60 H Arterial Blood Glucose Arterial Blood Ionized Calcium Urine WBC (Auto) Urine Creatinine 158.2 H Hepatitis C Antibody 11/22/20 11/22/20 11/22/20 00:23 00:40 01:37 WBC 14.1 H RBC 3.53 L Hgb 11.0 L Hct 34.1 L MCV 97 H Lymph % (Auto) 12.3 L [place] % (Auto) 14.2 H Lymph # (Auto) [place] # (Auto) 2.0 H Seg Neutrophils % 72.3 H Seg Neuts % (Manual) Nucleated RBC % Seg Neutrophils # 10.2 H Seg Neutrophils # Man Lymphocytes # (Manual) ABG pH POC ABG pCO2 POC ABG pO2 ABG Hemoglobin ABG Sodium ABG Potassium ABG Glucose Carboxyhemoglobin Sodium Potassium 5.1 H D Chloride Carbon Dioxide BUN Creatinine Glucose POC Glucose Lactic Acid 2.10 H* Calcium Phosphorus AST ALT CK-MB (CK-2) Rel Index Troponin T NT-Pro-B Natriuret Pep Serum Total Protein Total Protein Albumin Dsljs-8-Zjrqiqpgv Gamma Globulins PEP Interpretation HDL Cholesterol Arterial Blood Glucose Arterial Blood Ionized Calcium Urine WBC (Auto) Urine Creatinine Hepatitis C Antibody 11/22/20 11/22/20 11/22/20 01:37 03:20 05:00 WBC RBC Hgb Hct MCV Lymph % (Auto) [place] % (Auto) Lymph # (Auto) [place] # (Auto) Seg Neutrophils % Seg Neuts % (Manual) Nucleated RBC % Seg Neutrophils # Seg Neutrophils # Man Lymphocytes # (Manual) ABG pH POC ABG pCO2 58.4 H POC ABG pO2 ABG Hemoglobin 11.1 L ABG Sodium 135.1 L ABG Potassium 5.0 H ABG Glucose Carboxyhemoglobin Sodium Potassium 5.1 H Chloride Carbon Dioxide 31 H BUN 40 H Creatinine 2.0 H Glucose 49 L POC Glucose Lactic Acid Calcium Phosphorus AST ALT CK-MB (CK-2) Rel Index Troponin T NT-Pro-B Natriuret Pep Serum Total Protein Total Protein Albumin Miqhl-0-Pxjwdtxir Gamma Globulins PEP Interpretation HDL Cholesterol Arterial Blood Glucose Arterial Blood Ionized Calcium Urine WBC (Auto) 33.0 H Urine Creatinine Hepatitis C Antibody 11/22/20 11/22/20 11/22/20 05:00 05:00 05:00 WBC RBC Hgb Hct MCV Lymph % (Auto) [place] % (Auto) Lymph # (Auto) [place] # (Auto) Seg Neutrophils % Seg Neuts % (Manual) Nucleated RBC % Seg Neutrophils # Seg Neutrophils # Man Lymphocytes # (Manual) ABG pH POC ABG pCO2 POC ABG pO2 ABG Hemoglobin ABG Sodium ABG Potassium ABG Glucose Carboxyhemoglobin Sodium 136 L Potassium Chloride 97.8 L Carbon Dioxide BUN 41 H Creatinine 1.8 H 1.8 H Glucose POC Glucose Lactic Acid Calcium 8.2 L Phosphorus AST ALT CK-MB (CK-2) Rel Index Troponin T 0.065 H D NT-Pro-B Natriuret Pep Serum Total Protein Total Protein Albumin Ultmb-7-Ezsxoxtbx Gamma Globulins PEP Interpretation HDL Cholesterol Arterial Blood Glucose Arterial Blood Ionized Calcium Urine WBC (Auto) Urine Creatinine Hepatitis C Antibody 11/22/20 11/22/20 11/22/20 10:20 10:20 15:00 WBC RBC 3.16 L Hgb 10.2 L Hct 29.9 L MCV 95 H Lymph % (Auto) [place] % (Auto) Lymph # (Auto) [place] # (Auto) Seg Neutrophils % Seg Neuts % (Manual) Nucleated RBC % Seg Neutrophils # Seg Neutrophils # Man Lymphocytes # (Manual) ABG pH 7.501 H POC ABG pCO2 POC ABG pO2 ABG Hemoglobin 10.5 L ABG Sodium 134.9 L ABG Potassium ABG Glucose 115 H Carboxyhemoglobin 0.4 L Sodium Potassium Chloride Carbon Dioxide BUN Creatinine Glucose POC Glucose Lactic Acid Calcium Phosphorus AST ALT CK-MB (CK-2) Rel Index Troponin T 0.078 H NT-Pro-B Natriuret Pep Serum Total Protein Total Protein Albumin Lcmwb-8-Xzaplmndt Gamma Globulins PEP Interpretation HDL Cholesterol Arterial Blood Glucose 115 H Arterial Blood Ionized Calcium 4.3 L Urine WBC (Auto) Urine Creatinine Hepatitis C Antibody 11/22/20 11/22/20 11/22/20 16:00 17:45 23:21 WBC RBC Hgb Hct MCV Lymph % (Auto) [place] % (Auto) Lymph # (Auto) [place] # (Auto) Seg Neutrophils % Seg Neuts % (Manual) Nucleated RBC % Seg Neutrophils # Seg Neutrophils # Man Lymphocytes # (Manual) ABG pH POC ABG pCO2 POC ABG pO2 ABG Hemoglobin ABG Sodium ABG Potassium ABG Glucose Carboxyhemoglobin Sodium Potassium Chloride Carbon Dioxide BUN Creatinine Glucose POC Glucose 107 H 115 H Lactic Acid Calcium Phosphorus AST ALT CK-MB (CK-2) Rel Index Troponin T NT-Pro-B Natriuret Pep Serum Total Protein Total Protein Albumin Hcvhq-7-Tnhihtpdw Gamma Globulins PEP Interpretation HDL Cholesterol Arterial Blood Glucose Arterial Blood Ionized Calcium Urine WBC (Auto) Urine Creatinine Hepatitis C Antibody Reactive A 11/23/20 11/23/20 11/23/20 03:03 05:33 10:00 WBC RBC 3.33 L Hgb 10.6 L Hct 32.2 L MCV 97 H Lymph % (Auto) [place] % (Auto) 15.0 H Lymph # (Auto) [place] # (Auto) 1.5 H Seg Neutrophils % Seg Neuts % (Manual) Nucleated RBC % Seg Neutrophils # Seg Neutrophils # Man Lymphocytes # (Manual) ABG pH POC ABG pCO2 POC ABG pO2 115.8 H ABG Hemoglobin 10.1 L ABG Sodium 135.8 L ABG Potassium ABG Glucose 98 H Carboxyhemoglobin 0.4 L Sodium Potassium Chloride Carbon Dioxide BUN Creatinine Glucose POC Glucose 106 H Lactic Acid Calcium Phosphorus AST ALT CK-MB (CK-2) Rel Index Troponin T NT-Pro-B Natriuret Pep Serum Total Protein Total Protein Albumin Hiujl-7-Vrcnxikwg Gamma Globulins PEP Interpretation HDL Cholesterol Arterial Blood Glucose 98 H Arterial Blood Ionized Calcium 4.4 L Urine WBC (Auto) Urine Creatinine Hepatitis C Antibody 11/23/20 11/23/20 11/23/20 10:00 10:00 12:12 WBC RBC Hgb Hct MCV Lymph % (Auto) [place] % (Auto) Lymph # (Auto) [place] # (Auto) Seg Neutrophils % Seg Neuts % (Manual) Nucleated RBC % Seg Neutrophils # Seg Neutrophils # Man Lymphocytes # (Manual) ABG pH POC ABG pCO2 POC ABG pO2 ABG Hemoglobin ABG Sodium ABG Potassium ABG Glucose Carboxyhemoglobin Sodium Potassium Chloride Carbon Dioxide BUN 22 H Creatinine Glucose 101 H POC Glucose 119 H Lactic Acid Calcium 7.9 L Phosphorus AST ALT CK-MB (CK-2) Rel Index Troponin T NT-Pro-B Natriuret Pep Serum Total Protein 5.3 L Total Protein 5.5 L Albumin 2.8 L 2.8 L Wffsr-5-Phdkkdhuh 0.4 H Gamma Globulins 0.7 L PEP Interpretation see below H HDL Cholesterol Arterial Blood Glucose Arterial Blood Ionized Calcium Urine WBC (Auto) Urine Creatinine Hepatitis C Antibody 11/23/20 11/23/20 11/24/20 18:21 23:28 01:48 WBC RBC Hgb Hct MCV Lymph % (Auto) [place] % (Auto) Lymph # (Auto) [place] # (Auto) Seg Neutrophils % Seg Neuts % (Manual) Nucleated RBC % Seg Neutrophils # Seg Neutrophils # Man Lymphocytes # (Manual) ABG pH 7.281 L POC ABG pCO2 58.4 H POC ABG pO2 ABG Hemoglobin 11.8 L ABG Sodium ABG Potassium ABG Glucose 101 H Carboxyhemoglobin Sodium Potassium Chloride Carbon Dioxide BUN Creatinine Glucose POC Glucose 106 H 108 H Lactic Acid Calcium Phosphorus AST ALT CK-MB (CK-2) Rel Index Troponin T NT-Pro-B Natriuret Pep Serum Total Protein Total Protein Albumin Onrkb-8-Lneaffuqs Gamma Globulins PEP Interpretation HDL Cholesterol Arterial Blood Glucose 101 H Arterial Blood Ionized Calcium Urine WBC (Auto) Urine Creatinine Hepatitis C Antibody 11/24/20 11/24/20 11/25/20 09:58 09:58 00:29 WBC RBC Hgb Hct MCV Lymph % (Auto) [place] % (Auto) Lymph # (Auto) [place] # (Auto) Seg Neutrophils % Seg Neuts % (Manual) Nucleated RBC % Seg Neutrophils # Seg Neutrophils # Man Lymphocytes # (Manual) ABG pH POC ABG pCO2 POC ABG pO2 ABG Hemoglobin ABG Sodium ABG Potassium ABG Glucose Carboxyhemoglobin Sodium 148 H Potassium Chloride Carbon Dioxide 34 H D BUN Creatinine Glucose POC Glucose 111 H Lactic Acid 0.60 L Calcium Phosphorus AST ALT CK-MB (CK-2) Rel Index Troponin T NT-Pro-B Natriuret Pep Serum Total Protein Total Protein Albumin Cmmlm-6-Chjcdnxqj Gamma Globulins PEP Interpretation HDL Cholesterol Arterial Blood Glucose Arterial Blood Ionized Calcium Urine WBC (Auto) Urine Creatinine Hepatitis C Antibody 11/25/20 11/25/20 11/25/20 05:48 08:18 08:18 WBC 13.2 H RBC 3.56 L Hgb 10.9 L Hct 34.0 L MCV 96 H Lymph % (Auto) [place] % (Auto) Lymph # (Auto) [place] # (Auto) Seg Neutrophils % Seg Neuts % (Manual) 98.0 H Nucleated RBC % 1.0 H Seg Neutrophils # Seg Neutrophils # Man 12.9 H Lymphocytes # (Manual) 0.0 L ABG pH POC ABG pCO2 POC ABG pO2 ABG Hemoglobin ABG Sodium ABG Potassium ABG Glucose Carboxyhemoglobin Sodium 147 H Potassium Chloride Carbon Dioxide 32 H BUN 26 H Creatinine Glucose 151 H POC Glucose 148 H Lactic Acid Calcium Phosphorus AST ALT CK-MB (CK-2) Rel Index Troponin T NT-Pro-B Natriuret Pep Serum Total Protein Total Protein 6.0 L Albumin 3.7 L Zjtya-4-Cdrwrelyw Gamma Globulins PEP Interpretation HDL Cholesterol Arterial Blood Glucose Arterial Blood Ionized Calcium Urine WBC (Auto) Urine Creatinine Hepatitis C Antibody 11/25/20 11/25/20 11/25/20 11:34 18:03 23:15 WBC RBC Hgb Hct MCV Lymph % (Auto) [place] % (Auto) Lymph # (Auto) [place] # (Auto) Seg Neutrophils % Seg Neuts % (Manual) Nucleated RBC % Seg Neutrophils # Seg Neutrophils # Man Lymphocytes # (Manual) ABG pH POC ABG pCO2 POC ABG pO2 ABG Hemoglobin ABG Sodium ABG Potassium ABG Glucose Carboxyhemoglobin Sodium Potassium Chloride Carbon Dioxide BUN Creatinine Glucose POC Glucose 144 H 147 H 158 H Lactic Acid Calcium Phosphorus AST ALT CK-MB (CK-2) Rel Index Troponin T NT-Pro-B Natriuret Pep Serum Total Protein Total Protein Albumin Vvskx-5-Cdvpeowbr Gamma Globulins PEP Interpretation HDL Cholesterol Arterial Blood Glucose Arterial Blood Ionized Calcium Urine WBC (Auto) Urine Creatinine Hepatitis C Antibody 11/26/20 11/26/20 11/26/20 05:07 06:22 06:22 WBC 12.3 H RBC 3.52 L Hgb 11.1 L Hct 33.6 L MCV 95 H Lymph % (Auto) [place] % (Auto) Lymph # (Auto) [place] # (Auto) Seg Neutrophils % Seg Neuts % (Manual) Nucleated RBC % Seg Neutrophils # Seg Neutrophils # Man Lymphocytes # (Manual) ABG pH POC ABG pCO2 POC ABG pO2 ABG Hemoglobin ABG Sodium ABG Potassium ABG Glucose Carboxyhemoglobin Sodium Potassium 3.3 L Chloride 95.8 L Carbon Dioxide 33 H BUN 35 H Creatinine 1.4 H Glucose 185 H POC Glucose 184 H Lactic Acid Calcium Phosphorus AST ALT CK-MB (CK-2) Rel Index Troponin T 0.036 H D NT-Pro-B Natriuret Pep Serum Total Protein Total Protein 6.2 L Albumin 3.1 L Tkmzg-3-Tbjexlpar Gamma Globulins PEP Interpretation HDL Cholesterol Arterial Blood Glucose Arterial Blood Ionized Calcium Urine WBC (Auto) Urine Creatinine Hepatitis C Antibody 11/26/20 11/26/20 11/26/20 12:52 17:30 23:14 WBC RBC Hgb Hct MCV Lymph % (Auto) [place] % (Auto) Lymph # (Auto) [place] # (Auto) Seg Neutrophils % Seg Neuts % (Manual) Nucleated RBC % Seg Neutrophils # Seg Neutrophils # Man Lymphocytes # (Manual) ABG pH POC ABG pCO2 POC ABG pO2 ABG Hemoglobin ABG Sodium ABG Potassium ABG Glucose Carboxyhemoglobin Sodium Potassium Chloride Carbon Dioxide BUN Creatinine Glucose POC Glucose 170 H 133 H 149 H Lactic Acid Calcium Phosphorus AST ALT CK-MB (CK-2) Rel Index Troponin T NT-Pro-B Natriuret Pep Serum Total Protein Total Protein Albumin Ywudo-3-Eeeflxivt Gamma Globulins PEP Interpretation HDL Cholesterol Arterial Blood Glucose Arterial Blood Ionized Calcium Urine WBC (Auto) Urine Creatinine Hepatitis C Antibody 11/27/20 11/27/20 11/27/20 05:35 08:03 12:02 WBC RBC Hgb Hct MCV Lymph % (Auto) [place] % (Auto) Lymph # (Auto) [place] # (Auto) Seg Neutrophils % Seg Neuts % (Manual) Nucleated RBC % Seg Neutrophils # Seg Neutrophils # Man Lymphocytes # (Manual) ABG pH POC ABG pCO2 POC ABG pO2 ABG Hemoglobin ABG Sodium ABG Potassium ABG Glucose Carboxyhemoglobin Sodium Potassium Chloride 97.0 L Carbon Dioxide 31 H BUN 41 H Creatinine 1.4 H Glucose 145 H POC Glucose 135 H 139 H Lactic Acid Calcium Phosphorus 2.20 L AST ALT CK-MB (CK-2) Rel Index Troponin T NT-Pro-B Natriuret Pep Serum Total Protein Total Protein Albumin Ijajt-3-Uacnxtaas Gamma Globulins PEP Interpretation HDL Cholesterol Arterial Blood Glucose Arterial Blood Ionized Calcium Urine WBC (Auto) Urine Creatinine Hepatitis C Antibody 11/27/20 11/28/20 11/28/20 18:41 05:26 06:08 WBC RBC Hgb Hct MCV Lymph % (Auto) [place] % (Auto) Lymph # (Auto) [place] # (Auto) Seg Neutrophils % Seg Neuts % (Manual) Nucleated RBC % Seg Neutrophils # Seg Neutrophils # Man Lymphocytes # (Manual) ABG pH POC ABG pCO2 POC ABG pO2 ABG Hemoglobin ABG Sodium ABG Potassium ABG Glucose Carboxyhemoglobin Sodium Potassium Chloride Carbon Dioxide BUN 45 H Creatinine 1.4 H Glucose 135 H POC Glucose 148 H 143 H Lactic Acid Calcium Phosphorus AST ALT CK-MB (CK-2) Rel Index Troponin T NT-Pro-B Natriuret Pep Serum Total Protein Total Protein Albumin Uqkkp-9-Idapsggsi Gamma Globulins PEP Interpretation HDL Cholesterol Arterial Blood Glucose Arterial Blood Ionized Calcium Urine WBC (Auto) Urine Creatinine Hepatitis C Antibody 11/28/20 11/28/20 11/28/20 11:46 17:31 21:17 WBC RBC Hgb Hct MCV Lymph % (Auto) [place] % (Auto) Lymph # (Auto) [place] # (Auto) Seg Neutrophils % Seg Neuts % (Manual) Nucleated RBC % Seg Neutrophils # Seg Neutrophils # Man Lymphocytes # (Manual) ABG pH POC ABG pCO2 POC ABG pO2 ABG Hemoglobin ABG Sodium ABG Potassium ABG Glucose Carboxyhemoglobin Sodium Potassium Chloride Carbon Dioxide BUN Creatinine Glucose POC Glucose 132 H 156 H 122 H Lactic Acid Calcium Phosphorus AST ALT CK-MB (CK-2) Rel Index Troponin T NT-Pro-B Natriuret Pep Serum Total Protein Total Protein Albumin Beefk-0-Xajezlhor Gamma Globulins PEP Interpretation HDL Cholesterol Arterial Blood Glucose Arterial Blood Ionized Calcium Urine WBC (Auto) Urine Creatinine Hepatitis C Antibody 11/29/20 11/29/20 11/29/20 00:06 04:43 05:15 WBC RBC Hgb Hct MCV Lymph % (Auto) [place] % (Auto) Lymph # (Auto) [place] # (Auto) Seg Neutrophils % Seg Neuts % (Manual) Nucleated RBC % Seg Neutrophils # Seg Neutrophils # Man Lymphocytes # (Manual) ABG pH POC ABG pCO2 POC ABG pO2 ABG Hemoglobin ABG Sodium ABG Potassium ABG Glucose Carboxyhemoglobin Sodium Potassium Chloride 97.7 L Carbon Dioxide BUN 56 H Creatinine 1.6 H Glucose 132 H POC Glucose 114 H 125 H Lactic Acid Calcium Phosphorus AST ALT CK-MB (CK-2) Rel Index Troponin T NT-Pro-B Natriuret Pep Serum Total Protein Total Protein Albumin Mtotp-3-Ccdboqqyg Gamma Globulins PEP Interpretation HDL Cholesterol Arterial Blood Glucose Arterial Blood Ionized Calcium Urine WBC (Auto) Urine Creatinine Hepatitis C Antibody 11/29/20 11/29/20 11/30/20 12:09 18:12 04:47 WBC RBC Hgb Hct MCV Lymph % (Auto) [place] % (Auto) Lymph # (Auto) [place] # (Auto) Seg Neutrophils % Seg Neuts % (Manual) Nucleated RBC % Seg Neutrophils # Seg Neutrophils # Man Lymphocytes # (Manual) ABG pH POC ABG pCO2 POC ABG pO2 ABG Hemoglobin ABG Sodium ABG Potassium ABG Glucose Carboxyhemoglobin Sodium Potassium Chloride Carbon Dioxide 31 H BUN 59 H Creatinine 1.6 H Glucose 122 H POC Glucose 142 H 132 H Lactic Acid Calcium Phosphorus AST ALT CK-MB (CK-2) Rel Index Troponin T NT-Pro-B Natriuret Pep Serum Total Protein Total Protein Albumin Clccv-1-Ipgmtvdys Gamma Globulins PEP Interpretation HDL Cholesterol Arterial Blood Glucose Arterial Blood Ionized Calcium Urine WBC (Auto) Urine Creatinine Hepatitis C Antibody 11/30/20 11/30/20 11/30/20 05:45 11:47 18:16 WBC RBC Hgb Hct MCV Lymph % (Auto) [place] % (Auto) Lymph # (Auto) [place] # (Auto) Seg Neutrophils % Seg Neuts % (Manual) Nucleated RBC % Seg Neutrophils # Seg Neutrophils # Man Lymphocytes # (Manual) ABG pH POC ABG pCO2 POC ABG pO2 ABG Hemoglobin ABG Sodium ABG Potassium ABG Glucose Carboxyhemoglobin Sodium Potassium Chloride Carbon Dioxide BUN Creatinine Glucose POC Glucose 118 H 123 H 126 H Lactic Acid Calcium Phosphorus AST ALT CK-MB (CK-2) Rel Index Troponin T NT-Pro-B Natriuret Pep Serum Total Protein Total Protein Albumin Dsqju-4-Kbmoxcwhm Gamma Globulins PEP Interpretation HDL Cholesterol Arterial Blood Glucose Arterial Blood Ionized Calcium Urine WBC (Auto) Urine Creatinine Hepatitis C Antibody 12/01/20 12/01/20 12/01/20 00:11 04:57 05:41 WBC RBC Hgb Hct MCV Lymph % (Auto) [place] % (Auto) Lymph # (Auto) [place] # (Auto) Seg Neutrophils % Seg Neuts % (Manual) Nucleated RBC % Seg Neutrophils # Seg Neutrophils # Man Lymphocytes # (Manual) ABG pH POC ABG pCO2 POC ABG pO2 ABG Hemoglobin ABG Sodium ABG Potassium ABG Glucose Carboxyhemoglobin Sodium Potassium Chloride Carbon Dioxide BUN 52 H Creatinine 1.4 H Glucose 121 H POC Glucose 117 H 120 H Lactic Acid Calcium Phosphorus AST ALT CK-MB (CK-2) Rel Index Troponin T NT-Pro-B Natriuret Pep Serum Total Protein Total Protein Albumin [id number] Gamma Globulins PEP Interpretation HDL Cholesterol Arterial Blood Glucose Arterial Blood Ionized Calcium Urine WBC (Auto) Urine Creatinine Hepatitis C Antibody
[2020-12-01] MEDS: hydrALAZINE 20 MG/1 ML INJ IV PRN ×2 (12:22→23:04)
--- NOTE | 2020-12-01 13:07 | Progress Note ---
Assessment and Plan NSTEMI suspect type II with history of coronary artery disease post CABG * Patient is currently in no obvious distress, pleasantly confused. Troponins have been trending downwards and are currently negative x2. AMI is ruled out. * Echocardiogram reviewed (11/22/2020): LVEF is 50 to 55%. LV is normal size. LV SF is normal. Mild diastolic dysfunction. RV SF is normal. Mild aortic stenosis: Highest mean AV gradient is 12.37 mmHg. Moderate mitral stenosis. Severe pulmonary hypertension RVSP 74 mmHg, mild TR. * Hx Mitral Valve Repair (2004). Consider HECTOR if further characterization of Mitral Stenosis is requested. Pulm HTN * Pulmonology is following. Hypertension with bradycardia * Recommend avoid AV selena blocking agents. Continue to monitor on telemetry. Cardiology is consulted for elevated troponin. Troponins have resolved and are currently negative. Patient has significantly improved and awaiting LTAC placement management per hospitalist team. Will follow on as-needed basis Pt seen in conjunction with Dr. Whitfield, who agrees with the assessment and plan of care. - Patient Problems (1) Acute metabolic encephalopathy Current Visit: Yes Status: Acute (2) Acute and chronic respiratory failure ([id number]) Current Visit: Yes Status: Acute Qualifiers: Respiratory failure complication: hypoxia Qualified Code(s): J96.21 - Acute and chronic respiratory failure with hypoxia (3) COPD (chronic obstructive pulmonary disease) Current Visit: Yes Status: Chronic (4) Pulmonary hypertension Current Visit: Yes Status: Chronic (5) Acute kidney injury Current Visit: Yes Status: Acute (6) Anemia Current Visit: Yes Status: Chronic (7) NSTEMI (non-ST elevated myocardial infarction) Current Visit: Yes Status: Acute Plan to address problem: Type 2 (8) CAD (coronary artery disease) Current Visit: Yes Status: Chronic Qualifiers: Coronary Disease-Associated Artery/Lesion type: kaw artery [place] vs. transplanted heart: kaw heart (9) History of coronary artery bypass graft Current Visit: Yes Status: Chronic (10) S/P mitral valve repair Current Visit: Yes Status: Chronic Plan to address problem: 2005 (11) Hypertension Current Visit: Yes Status: Chronic Qualifiers: Hypertension type: primary hypertension Qualified Code(s): I10 - Essential (primary) hypertension (12) Type 2 diabetes mellitus Current Visit: Yes Status: Chronic Qualifiers: Qualified Code(s): E11.9 - Type 2 diabetes mellitus without complications (13) Carotid stenosis Current Visit: Yes Status: Chronic Qualifiers: Laterality: right Qualified Code(s): I65.21 - Occlusion and stenosis of right carotid artery (14) S/P carotid endarterectomy Current Visit: Yes Status: Chronic (15) H/O: GI bleed Current Visit: Yes Status: Chronic Subjective Date of service: 12/01/20 Principal diagnosis: Acute respiratory failure Interval history: Patient resting in bed awake, alert and interactive but pleasantly confused. May need Ghanaian interpretation going forward Telemetry reviewed sinus rhythm 93 no events Objective Last Vital Signs Temp 98.2 F 12/01/20 12:00 Pulse 98 H 12/01/20 12:46 Resp 18 12/01/20 12:46 BP 188/96 12/01/20 12:46 Pulse Ox 96 12/01/20 12:46 - Physical Examination General: Other (agitated, altered mental status) HEENT: Positive: EOMI, Normocephaly Neck: Positive: neck supple, trachea midline. Negative: JVD/HJR Lungs: Positive: Normal Exam, Normal Breath Sounds Neuro: Positive: Other (agitated, AMS) Abdomen: Positive: Soft Skin: Negative: Rash Musculoskeletal: other (Altered mental status) Extremities: Present: lower extr. pulses. Absent: edema - Labs and Meds Comprehensive Metabolic Panel 12/01/20 Range/Units 04:57 Sodium 139 (137-145) mmol/L Potassium 4.0 (3.6-5.0) mmol/L Chloride 99.6 (98-107) mmol/L Carbon Dioxide 29 (22-30) mmol/L BUN 52 H (9-20) mg/dL Creatinine 1.4 H (0.8-1.3) mg/dL Glucose 121 H (75-100) mg/dL Calcium 8.6 (8.4-10.2) mg/dL - Imaging and Cardiology EKG: report reviewed, image reviewed Stress echo: report reviewed (05/2019 normal myocardial perfusion scan) Echo: report reviewed (Echocardiogram reviewed (11/22/2020): LVEF is 50 to 55%. LV is normal size. LV SF is normal. Mild diastolic dysfunction. RV SF is normal. Mild aortic stenosis: Highest mean AV gradient is 12.37 mmHg. Moderate mitral stenosis. Severe pulmonary hypertension RVSP 74 mmHg, mild TR.), other (05/2019 - normal LV function, mild mitral stenosis) - Telemetry EKG Rhythm: Sinus Rhythm - EKG Sinus rhythms and dysrhythmias: sinus rhythm Repolarization changes or abnormalities: nonspecific abnormality, ST segment, and/or T wave
--- NOTE | 2020-12-02 03:22 | Progress Note ---
Assessment and Plan Assessment and Plan PT/OT evaluation, when he comes off high flow oxygen --Hypokalemia; resolved Monitor electrolytes --Acute kidney injury; vasomotor nephropathy Gentle hydration closely monitor renal function --Acute hypoxic respiratory failure/Requiring intubation 11/21/2020 s/p extubation 11/23/2020, patient is on noninvasive ventilation on high flow nasal cannula oxygen 20 L/40 Fio2/97% sat today slightly better 15 L 35 FiO2 O2 sats 94% Wean as tolerated, --Acute exacerbation of COPD; Home oxygen dependent BiPAP as needed, wean as tolerated Pulmonary hygiene, pulmonary critical care following --Severe pulmonary hypertension; Management per pulmonary, continue supportive care --Acute metabolic encephalopathy -11/21 CT head shows no acute intracranial abnormality, sinus disease Continue supportive care --NSTEMI type II Presented with [facility] with elevated troponins cardiology patient had a stress test in 2019 which showed no significant ischemia, Echo; EF 50 to 55% severe pulmonary hypertension moderate mitral stenosis may benefit from HECTOR for evaluation of mitral valve when patient is stable and extubated --Acute kidney injury; present on admission Vasomotor nephropathy Now resolved, normal renal function Avoid nephrotoxins, nephrology following --History of bladder cancer; Indwelling Paulson in place, supportive care Continue Flomax --Urinary tract infection; Continue empiric antibiotics total 5 days Supportive care --Dyslipidemia; Continue statin and low-cholesterol diet --Hypertension; moderate control We will continue current antihypertensives And as needed hydralazine --Hypernatremia ; Patient was hyponatremia on admission ,probably overcorrection Free water via [place], nephrology following Monitor electrolytes --Severe protein calorie malnutrition ; Hypoalbuminemia ,nutrition supplements Nutrition consult and supportive care --DVT prophylaxis; Subcu heparin, SCDs --GI prophylaxis; Continue Prevacid --Full CODE STATUS; Bedside swallow screen, if normal start diet pured/mechanical soft advance as tolerated We will also request physical therapy We will closely monitor the patient and adjust the management as needed Consults and recommendations noted and appreciated Plan of care reviewed with the patient's nurse PT OT when he comes off high flow oxygen DC planning per case management; considering LTAC placement The high probability of a clinically significant, sudden or life threatening deterioration of the [resp, cardiac, nephrology, metabolic] system(s) required my full and direct attention, intervention and personal management. The aggregate critical care time was [34] minutes. This time is in addition to time spent performing reported procedures but includes the following: [x] Data Review and interpretation [x] Patient assessment and monitoring of vital signs [x] Documentation [x] Medication orders and management Subjective Date of service: 12/01/20 Principal diagnosis: Acute respiratory failure Interval history: Brief history and daily hospital course: 85-year-old male patient with past medical history of COPD on home oxygen, GERD, hypertension, asthma, hyperlipidemia, vasopressin, bladder cancer admitted for acute hypoxic respiratory failure, intubated on 11/21/2020 managed appropriately evaluated by pulmonary critical subsequently extubated on 11/23/2020, today patient is on high flow nasal cannula oxygen, pulmonary critical, cardiology and nephrology following the patient 11/23: Patient was extubated, currently on BiPAP Mild distress, wean as tolerated 11/25/2020; patient is on BiPAP Mild distress, noncommunicative 11/26/2020; patient is on intermittent BiPAP Currently on high flow nasal cannula oxygen 11/27/2020; patient is more alert and awake Will get swallow screen, if normal start pured diet Transfer the patient to [facility] 11/28/2020; patient is on high flow oxygen slightly better than yesterday Able to tolerate mechanical soft diet when the family comes and helps him DC planning, considering LTAC placement 11/29 Still on HFNC oxygen 11/30 Still on HFNC oxygen 12/01 on 35 liters O2 Objective - Constitutional Vitals: Vital Signs - 12hr 12/01/20 12/01/20 12/01/20 15:30 15:46 16:00 Temperature Pulse Rate 89 88 88 Pulse Rate [ Anterior Bilateral Throughout] Pulse Rate [ 97 H From Monitor] Respiratory 14 20 14 Rate Respiratory Rate [Anterior Bilateral Throughout] Blood Pressure 149/69 149/69 165/80 O2 Sat by Pulse 94 97 98 Oximetry 12/01/20 12/01/20 12/01/20 16:16 16:30 16:46 Temperature Pulse Rate 90 89 101 H Pulse Rate [ Anterior Bilateral Throughout] Pulse Rate [ From Monitor] Respiratory 13 14 16 Rate Respiratory Rate [Anterior Bilateral Throughout] Blood Pressure 165/80 165/80 165/80 O2 Sat by Pulse 98 97 95 Oximetry 12/01/20 12/01/20 12/01/20 17:00 17:16 17:30 Temperature Pulse Rate 98 H 97 H 94 H Pulse Rate [ Anterior Bilateral Throughout] Pulse Rate [ From Monitor] Respiratory 22 12 23 Rate Respiratory Rate [Anterior Bilateral Throughout] Blood Pressure 156/79 156/79 156/79 O2 Sat by Pulse 96 97 98 Oximetry 12/01/20 12/01/20 12/01/20 17:46 17:58 18:00 Temperature 98.3 F Pulse Rate 95 H 93 H Pulse Rate [ Anterior Bilateral Throughout] Pulse Rate [ From Monitor] Respiratory 28 H 26 H Rate Respiratory Rate [Anterior Bilateral Throughout] Blood Pressure 156/79 159/81 O2 Sat by Pulse 98 97 Oximetry 12/01/20 12/01/20 12/01/20 18:16 18:30 18:46 Temperature Pulse Rate 92 H 93 H 93 H Pulse Rate [ Anterior Bilateral Throughout] Pulse Rate [ From Monitor] Respiratory 26 H 27 H 15 Rate Respiratory Rate [Anterior Bilateral Throughout] Blood Pressure 159/81 159/81 159/81 O2 Sat by Pulse 98 99 95 Oximetry 12/01/20 12/01/20 12/01/20 19:00 19:16 19:30 Temperature Pulse Rate 91 H 90 93 H Pulse Rate [ Anterior Bilateral Throughout] Pulse Rate [ From Monitor] Respiratory 12 16 30 H Rate Respiratory Rate [Anterior Bilateral Throughout] Blood Pressure 174/111 174/111 174/111 O2 Sat by Pulse 95 97 97 Oximetry 12/01/20 12/01/20 12/01/20 19:46 19:57 20:00 Temperature 97.7 F Pulse Rate 92 H 95 H Pulse Rate [ 95 H Anterior Bilateral Throughout] Pulse Rate [ From Monitor] Respiratory 13 25 H Rate Respiratory 20 Rate [Anterior Bilateral Throughout] Blood Pressure 174/111 184/94 O2 Sat by Pulse 98 97 97 Oximetry 12/01/20 12/01/20 12/01/20 20:16 20:30 20:46 Temperature Pulse Rate 92 H 90 94 H Pulse Rate [ Anterior Bilateral Throughout] Pulse Rate [ From Monitor] Respiratory 18 20 10 L Rate Respiratory Rate [Anterior Bilateral Throughout] Blood Pressure 174/111 174/111 184/94 O2 Sat by Pulse 97 97 97 Oximetry 12/01/20 12/01/20 12/01/20 21:00 21:16 21:30 Temperature Pulse Rate 93 H 89 91 H Pulse Rate [ Anterior Bilateral Throughout] Pulse Rate [ From Monitor] Respiratory 19 13 11 L Rate Respiratory Rate [Anterior Bilateral Throughout] Blood Pressure 182/95 182/95 182/95 O2 Sat by Pulse 94 97 94 Oximetry 12/01/20 12/01/20 12/01/20 21:42 21:45 23:04 Temperature Pulse Rate 89 86 Pulse Rate [ Anterior Bilateral Throughout] Pulse Rate [ From Monitor] Respiratory 12 Rate Respiratory Rate [Anterior Bilateral Throughout] Blood Pressure 182/95 194/93 O2 Sat by Pulse Oximetry 12/01/20 23:55 Temperature 97.2 F L Pulse Rate Pulse Rate [ Anterior Bilateral Throughout] Pulse Rate [ From Monitor] Respiratory Rate Respiratory Rate [Anterior Bilateral Throughout] Blood Pressure O2 Sat by Pulse Oximetry General appearance: Present: mild distress, well-nourished - EENT Eyes: PERRL, EOM intact ENT: hearing intact, clear oral mucosa Ears: bilateral: normal - Neck Neck: supple, normal ROM - Respiratory Respiratory effort: normal Respiratory: bilateral: CTA, rhonchi - Breasts Breasts: normal - Cardiovascular Heart rate: 88 Rhythm: regular Heart Sounds: Present: S1 & S2. Absent: gallop, rub Extremities: pulses intact, No edema, normal color, Full ROM - Gastrointestinal General gastrointestinal: Present: soft, non-tender, non-distended, normal bowel sounds - Genitourinary Male genitourinary: normal - Integumentary Integumentary: clear, warm, dry - Musculoskeletal Musculoskeletal: 1, strength equal bilaterally - Neurologic Neurologic: moves all extremities - Psychiatric Psychiatric: memory intact, appropriate mood/affect, intact judgment & insight - Labs CBC & Chem 7: 11/28/20 09:21 12/01/20 04:57 Labs: Abnormal lab results 12/01/20 12/01/20 12/01/20 Range/Units 04:57 05:41 23:35 BUN 52 H (9-20) mg/dL Creatinine 1.4 H (0.8-1.3) mg/dL Glucose 121 H (75-100) mg/dL POC Glucose 120 H 117 H (70-105) mg/dL HEART Score - HEART Score Troponin: Troponin T 0.021 ng/mL (0.00-0.029) 11/29/20 04:43
[2020-12-02] MEDS: IPRATROPIUM/ALBUTEROL SULFATE 3 ML AMPUL.NEB IH SCH ×4 (03:28→20:32)
[2020-12-02] MEDS: methylPREDNISolone Sod Succinate 125 MG/2 ML INJ IV SCH ×3 (06:34→21:58)
[2020-12-02] MEDS: HEPARIN 5,000 UNIT/1 ML VIAL SUB-Q SCH ×3 (06:35→21:57)
[2020-12-02] MEDS: BUDESONIDE 0.5 MG/2 ML NEBU IH SCH ×2 (08:32→20:32)
[2020-12-02] MEDS: SENNOSIDES/DOCUSATE SODIUM 8.6/50 MG TAB FEEDTUBE SCH ×2 (10:52→21:57)
[2020-12-02] MEDS: QUEtiapine 25 MG TAB PO SCH ×2 (10:52→21:57)
[2020-12-02] MEDS: carvediloL 3.125 MG TAB PO SCH (10:52)
[2020-12-02] MEDS: ASPIRIN 81 MG TAB CHEW PO SCH (10:52)
[2020-12-02] MEDS: ACETAMINOPHEN 325 MG TAB PO PRN ×2 (10:53→14:30)
[2020-12-02] MEDS: TAMSULOSIN 0.4 MG CAP PO SCH (10:54)
[2020-12-02] MEDS: hydrALAZINE 20 MG/1 ML INJ IV PRN (10:54)
[2020-12-02 11:05] LABS: Calcium 9.8 mg/dL (8.4-10.2)
--- NOTE | 2020-12-02 11:23 | Progress Note ---
Assessment and Plan Impression * Acute kidney injury * Severe hyperkalemia * Respiratory failure * Coronary artery disease * Hypertension * COPD * Bladder cancer * Hepatitis C Recommendations * Hyperkalemia has been corrected with aggressive medical management. * Renal function is stable with creatinine 1.6->1.4->1.2, Patient is also currently nonoliguric with >1L urine output * Avoid diuretics as able * His urine shows 1+ dipstick protein and large blood. Fractional excretion of sodium is 0.4%. He most likely has a prerenal component. However given his microhematuria need to rule out vasculitis. Vasculitis work-up as ordered- complements WNL, ANCA/INGA negative, HCV ab is positive * Renal ultrasound shows atrophic left kidney. No obstruction. * Monitor fluid status and electrolytes closely * Avoid nephrotoxins Subjective Date of service: 12/02/20 Principal diagnosis: Acute respiratory failure Interval history: Resting this AM, on HFNC with FiO2 35%, 25L Objective - Exam Narrative Exam: Constitutional: no acute distress Head: NC/AT Neck: supple Lungs: clear to auscultation, on HFNC CV: RRR, no M/R/G Abdomen: soft, non-tender, bowel sounds present Back: nontender Extremities: no edema, pulses WNL Skin: intact Neuro: no focal deficits, drowsy - Vital Signs Vital signs: Vital Signs - 12hr 12/01/20 12/01/20 12/01/20 23:16 23:30 23:46 Temperature Pulse Rate 97 H 92 H 92 H Pulse Rate [ Anterior Bilateral Throughout] Pulse Rate [ From Monitor] Respiratory 18 14 10 L Rate Respiratory Rate [Anterior Bilateral Throughout] Blood Pressure 194/93 194/93 194/93 O2 Sat by Pulse 95 96 95 Oximetry 12/01/20 12/02/20 12/02/20 23:55 00:00 00:16 Temperature 97.2 F L Pulse Rate 92 H 90 Pulse Rate [ Anterior Bilateral Throughout] Pulse Rate [ 93 H From Monitor] Respiratory 19 12 Rate Respiratory Rate [Anterior Bilateral Throughout] Blood Pressure 164/75 164/75 O2 Sat by Pulse 93 97 Oximetry 12/02/20 12/02/20 12/02/20 00:30 00:46 01:00 Temperature Pulse Rate 97 H 86 87 Pulse Rate [ Anterior Bilateral Throughout] Pulse Rate [ From Monitor] Respiratory 12 16 11 L Rate Respiratory Rate [Anterior Bilateral Throughout] Blood Pressure 164/75 164/75 163/76 O2 Sat by Pulse 95 94 94 Oximetry 12/02/20 12/02/20 12/02/20 01:16 01:30 01:46 Temperature Pulse Rate 90 87 90 Pulse Rate [ Anterior Bilateral Throughout] Pulse Rate [ From Monitor] Respiratory 16 22 14 Rate Respiratory Rate [Anterior Bilateral Throughout] Blood Pressure 163/76 163/76 163/76 O2 Sat by Pulse 94 94 95 Oximetry 12/02/20 12/02/20 12/02/20 02:00 02:16 02:30 Temperature Pulse Rate 90 97 H 89 Pulse Rate [ Anterior Bilateral Throughout] Pulse Rate [ From Monitor] Respiratory 13 26 H 16 Rate Respiratory Rate [Anterior Bilateral Throughout] Blood Pressure 172/82 172/82 172/82 O2 Sat by Pulse 91 93 96 Oximetry 12/02/20 12/02/20 12/02/20 02:46 03:00 03:16 Temperature Pulse Rate 93 H 95 H 92 H Pulse Rate [ Anterior Bilateral Throughout] Pulse Rate [ From Monitor] Respiratory 16 22 13 Rate Respiratory Rate [Anterior Bilateral Throughout] Blood Pressure 172/82 170/79 170/79 O2 Sat by Pulse 96 90 94 Oximetry 12/02/20 12/02/20 12/02/20 03:28 03:30 03:46 Temperature Pulse Rate 92 H 91 H Pulse Rate [ 85 Anterior Bilateral Throughout] Pulse Rate [ From Monitor] Respiratory 29 H 29 H Rate Respiratory 18 Rate [Anterior Bilateral Throughout] Blood Pressure 170/79 170/79 O2 Sat by Pulse 92 93 88 Oximetry 12/02/20 12/02/20 12/02/20 04:00 04:16 04:30 Temperature 99.0 F Pulse Rate 88 83 85 Pulse Rate [ Anterior Bilateral Throughout] Pulse Rate [ 88 From Monitor] Respiratory 13 17 18 Rate Respiratory Rate [Anterior Bilateral Throughout] Blood Pressure 132/48 132/48 132/48 O2 Sat by Pulse 89 95 94 Oximetry 12/02/20 12/02/20 12/02/20 04:46 05:00 05:16 Temperature Pulse Rate 92 H 92 H 100 H Pulse Rate [ Anterior Bilateral Throughout] Pulse Rate [ From Monitor] Respiratory 14 12 15 Rate Respiratory Rate [Anterior Bilateral Throughout] Blood Pressure 132/48 150/83 150/83 O2 Sat by Pulse 93 91 93 Oximetry 12/02/20 12/02/20 12/02/20 05:30 05:46 06:00 Temperature Pulse Rate 98 H 98 H 98 H Pulse Rate [ Anterior Bilateral Throughout] Pulse Rate [ From Monitor] Respiratory 15 36 H 16 Rate Respiratory Rate [Anterior Bilateral Throughout] Blood Pressure 150/83 150/83 194/92 O2 Sat by Pulse 96 94 93 Oximetry 12/02/20 12/02/20 12/02/20 06:16 06:30 06:46 Temperature Pulse Rate 109 H 103 H 112 H Pulse Rate [ Anterior Bilateral Throughout] Pulse Rate [ From Monitor] Respiratory 23 27 H 17 Rate Respiratory Rate [Anterior Bilateral Throughout] Blood Pressure 194/92 194/92 194/92 O2 Sat by Pulse 91 90 80 L Oximetry 12/02/20 12/02/20 12/02/20 07:00 07:16 07:30 Temperature Pulse Rate 105 H 104 H 139 H Pulse Rate [ Anterior Bilateral Throughout] Pulse Rate [ From Monitor] Respiratory 22 32 H 24 Rate Respiratory Rate [Anterior Bilateral Throughout] Blood Pressure 207/104 207/104 212/112 O2 Sat by Pulse 93 94 88 Oximetry 12/02/20 12/02/20 12/02/20 07:46 08:00 08:16 Temperature 98.5 F Pulse Rate 134 H 117 H 108 H Pulse Rate [ Anterior Bilateral Throughout] Pulse Rate [ From Monitor] Respiratory 38 H 33 H 32 H Rate Respiratory Rate [Anterior Bilateral Throughout] Blood Pressure 212/112 172/88 172/88 O2 Sat by Pulse 91 91 93 Oximetry 12/02/20 12/02/20 12/02/20 08:30 08:33 08:58 Temperature Pulse Rate 108 H Pulse Rate [ 102 H Anterior Bilateral Throughout] Pulse Rate [ From Monitor] Respiratory 31 H Rate Respiratory 20 Rate [Anterior Bilateral Throughout] Blood Pressure 172/88 O2 Sat by Pulse 94 94 Oximetry 12/02/20 12/02/20 10:52 10:54 Temperature Pulse Rate 106 H 104 H Pulse Rate [ Anterior Bilateral Throughout] Pulse Rate [ From Monitor] Respiratory Rate Respiratory Rate [Anterior Bilateral Throughout] Blood Pressure 163/80 163/80 O2 Sat by Pulse Oximetry - Lab 11/28/20 09:21 12/02/20 09:40 Most recent lab results ABG pH 7.281 (7.320-7.450) L 11/24/20 01:48 ABG O2 Saturation 96.9 (0-100) 11/24/20 01:48 Calcium 9.8 mg/dL (8.4-10.2) 12/02/20 09:40 Phosphorus 2.20 mg/dL (2.5-4.5) L 11/27/20 08:03 Magnesium 2.10 mg/dL (1.7-2.3) 11/27/20 08:03 Urine Creatinine 158.2 mg/dL (0.1-20.0) H 11/22/20 00:11 Urine Sodium 39 mmol/L 11/22/20 00:11 Medications & Allergies - Medications Allergies/Adverse Reactions: Allergies No Known Allergies Allergy (Verified 11/11/18 08:08) Home Medications: Home Medications Medication Instructions Recorded Confirmed Last Taken Type Pantoprazole [Protonix TAB] 40 mg PO QDAY #30 tablet 04/11/19 11/22/20 Unknown Rx AtorvaSTATin 20 mg PO QHS 06/13/19 11/22/20 06/12/19 21:00 History Tamsulosin 0.4 mg PO DAILY 06/13/19 11/22/20 06/12/19 21:00 History carvediloL [Coreg] 3.125 mg PO BID 06/13/19 11/22/20 06/11/19 21:00 History Gabapentin 300 mg PO BID 11/22/20 11/22/20 Unknown History Active Medications: Generic Name Dose Route Start Last Admin Trade Name Freq PRN Reason Stop Dose Admin Acetaminophen 650 mg 11/23/20 15:29 12/02/20 10:53 Acetaminophen 325 Mg Tab PO 650 mg Q4H PRN Administration Pain, Mild (1-3) Albuterol 2.5 mg 11/22/20 01:19 Albuterol 2.5 Mg/3 Ml Nebu IH Q4HRT PRN Shortness Of Breath Albuterol/Ipratropium 1 ampul 11/22/20 02:00 12/02/20 08:32 Ipratropium/Albuterol Sulfate 3 Ml Ampul.Neb IH 1 ampul Q6HRT TERESA Administration Lipase/Protease/Amylase 1 each 11/22/20 09:07 Lipase 10,500/Protease 25,000/Amylase 43,750 (Units) Dr Cyr FEEDTUBE PRN PRN For Clogged Feeding Tube Aspirin 81 mg 11/23/20 10:00 12/02/20 10:52 Aspirin 81 Mg Tab Chew PO 81 mg QDAY TERESA Administration Atorvastatin Calcium 40 mg 11/22/20 22:00 12/01/20 21:43 Atorvastatin 40 Mg Tab PO 40 mg QHS TERESA Administration Budesonide 0.5 mg 11/24/20 14:55 12/02/20 08:32 Budesonide 0.5 Mg/2 Ml Nebu IH 0.5 mg Q12HRT TERESA Administration Carvedilol 3.125 mg 11/30/20 10:00 12/02/20 10:52 Carvedilol 3.125 Mg Tab PO 3.125 mg BID TERESA Administration Haloperidol Lactate 5 mg 11/25/20 09:00 11/29/20 20:54 Haloperidol Lactate 5 Mg/1 Ml Inj IV 5 mg Q6H PRN Administration Agitation Heparin Sodium (Porcine) 5,000 unit 11/22/20 06:00 12/02/20 06:35 Heparin 5,000 Unit/1 Ml Vial SUB-Q 5,000 unit Q8HR TERESA Administration Hydralazine HCl 10 mg 11/22/20 01:24 12/02/20 10:54 Hydralazine 20 Mg/1 Ml Inj IV 10 mg Q6H PRN Administration Blood Pressure Hydrophilic Ointment 1 applic 11/22/20 00:38 Lip Therapy Vaseline TP Q2HR PRN Dry Lips Dexmedetomidine HCl 400 mcg/ 104 mls @ 4.228 mls/hr 11/25/20 10:00 12/01/20 04:36 Sodium Chloride IV 0 mcg/kg/hr TITRATE TERESA 0 mls/hr Titration Protocol 0.2 MCG/KG/HR Lansoprazole 30 mg 11/28/20 10:00 12/01/20 09:25 Lansoprazole 30 Mg Solutab FEEDTUBE 30 mg QDAY TERESA Administration Methylprednisolone Sodium Succinate 20 mg 11/29/20 21:00 12/02/20 06:34 Methylprednisolone Sod Succinate 125 Mg/2 Ml Inj IV 20 mg Q8HR TERESA Administration Multi-Ingred Cream/Lotion/Oil/Oint 1 applic 11/22/20 00:38 Mineral Oil/Petrolatum, White Ophth Oint 3.5 Gm OU Q4HR PRN Dry Eye(s) Nitroglycerin 0.4 mg 11/22/20 01:25 Nitroglycerin 0.4 Mg Tab Subl SL Q5M PRN Chest Pain Ondansetron HCl 4 mg 11/22/20 01:19 Ondansetron 4 Mg/2 Ml Inj IV Q8H PRN Nausea And Vomiting Quetiapine Fumarate 25 mg 11/27/20 12:00 12/02/20 10:52 Quetiapine 25 Mg Tab PO 25 mg BID TERESA Administration Senna/Docusate Sodium 1 tab 11/22/20 10:00 12/02/20 10:52 Sennosides/Docusate Sodium 8.6/50 Mg Tab FEEDTUBE 1 tab BID TERESA Administration Simple Syrup 15 ml 11/22/20 09:07 Simple Syrup 15 Ml FEEDTUBE PRN PRN Hypoglycemia Simple Syrup 30 ml 11/22/20 09:07 Simple Syrup 15 Ml FEEDTUBE PRN PRN Hypoglycemia Sodium Bicarbonate 325 mg 11/22/20 09:07 Sodium Bicarbonate 325 Mg Tab FEEDTUBE PRN PRN For Clogged Feeding Tube Sodium Chloride 10 ml 11/22/20 10:00 12/01/20 21:44 Sodium Chloride 0.9% 10 Ml Flush Syringe IV 10 ml BID TERESA Administration Sodium Chloride 10 ml 11/22/20 01:19 Sodium Chloride 0.9% 10 Ml Flush Syringe IV PRN PRN LINE FLUSH Tamsulosin HCl 0.4 mg 11/22/20 10:00 12/02/20 10:54 Tamsulosin 0.4 Mg Cap PO 0.4 mg DAILY TERESA Administration
--- NOTE | 2020-12-02 11:34 | Progress Note ---
Assessment and Plan 85 y/o [place] male admitted with acute hypoxic respiratory failure. 12/02/20: CM still waiting to hear back from LTACH in regards to auth. Continue to wean FiO2 as tolerated for sats >88%. Continue IV steroids. 12/01/20: Wean HFNC for sats >88%. Spoke with CM about checking on LTACH but patient may be able to be weaned further now while in house. Will speak with RT about this. If placed on salter, may need to consider transfer to medical/surgical floor with remote tele. 11/28/20: Continue to wean HFNC. Agree with holding Precedex, can increase seroquel if needed to help with mood. Hopeful that over the weekend will be down to nasal cannula and can transfer to the floor. CM working on LTACH evaluation. Patient is stable for transfer, if and when accepted. 11/27/20: Will transfer to step down today. Agree with bedside swallow eval now that patient is more awake. Will try bID seroquel to help with mood and agita tion. Hopeful Cr has stablized. Continue steroids at 40q8. Consider LTACH evaluation 11/26/20: 11/25/20: Continue bipap for right now. Added precedex and stopped ativan as this may be worsening agitation. Ok with haldol use. Continue daily diuretics to keep patient net negative. Continue ICU monitoring for now. Renal function is better. Guarded prognosis. 11/23/20: Wean sedation to off. If patient can tolerate being off sedation, will attempt PSV trial, otherwise, will likely have to just stop sedation and extubate, will have bipap ready for as needed purposes. Needs chemistry to a ssess renal function. Out put was good. 1. Repeat ABG later this afternoon and wean FIO2 according (>88%) 2. Stop sedation, need to assess mental state 3. Follow up renal function and urine output. 4. Guarded prognosis, this is likely acute on chronic respiratory failure. cct 31 minutes. Subjective Date of service: 12/02/20 Principal diagnosis: Acute respiratory failure Interval history: No acute events. Still on HFNC but with good sats. Objective Vital Signs - 12hr 12/01/20 12/01/20 12/02/20 23:46 23:55 00:00 Temperature 97.2 F L Pulse Rate 92 H 92 H Pulse Rate [ Anterior Bilateral Throughout] Pulse Rate [ 93 H From Monitor] Respiratory 10 L 19 Rate Respiratory Rate [Anterior Bilateral Throughout] Blood Pressure 194/93 164/75 O2 Sat by Pulse 95 93 Oximetry 12/02/20 12/02/20 12/02/20 00:16 00:30 00:46 Temperature Pulse Rate 90 97 H 86 Pulse Rate [ Anterior Bilateral Throughout] Pulse Rate [ From Monitor] Respiratory 12 12 16 Rate Respiratory Rate [Anterior Bilateral Throughout] Blood Pressure 164/75 164/75 164/75 O2 Sat by Pulse 97 95 94 Oximetry 12/02/20 12/02/20 12/02/20 01:00 01:16 01:30 Temperature Pulse Rate 87 90 87 Pulse Rate [ Anterior Bilateral Throughout] Pulse Rate [ From Monitor] Respiratory 11 L 16 22 Rate Respiratory Rate [Anterior Bilateral Throughout] Blood Pressure 163/76 163/76 163/76 O2 Sat by Pulse 94 94 94 Oximetry 12/02/20 12/02/20 12/02/20 01:46 02:00 02:16 Temperature Pulse Rate 90 90 97 H Pulse Rate [ Anterior Bilateral Throughout] Pulse Rate [ From Monitor] Respiratory 14 13 26 H Rate Respiratory Rate [Anterior Bilateral Throughout] Blood Pressure 163/76 172/82 172/82 O2 Sat by Pulse 95 91 93 Oximetry 12/02/20 12/02/20 12/02/20 02:30 02:46 03:00 Temperature Pulse Rate 89 93 H 95 H Pulse Rate [ Anterior Bilateral Throughout] Pulse Rate [ From Monitor] Respiratory 16 16 22 Rate Respiratory Rate [Anterior Bilateral Throughout] Blood Pressure 172/82 172/82 170/79 O2 Sat by Pulse 96 96 90 Oximetry 12/02/20 12/02/20 12/02/20 03:16 03:28 03:30 Temperature Pulse Rate 92 H 92 H Pulse Rate [ 85 Anterior Bilateral Throughout] Pulse Rate [ From Monitor] Respiratory 13 29 H Rate Respiratory 18 Rate [Anterior Bilateral Throughout] Blood Pressure 170/79 170/79 O2 Sat by Pulse 94 92 93 Oximetry 12/02/20 12/02/20 12/02/20 03:46 04:00 04:16 Temperature 99.0 F Pulse Rate 91 H 88 83 Pulse Rate [ Anterior Bilateral Throughout] Pulse Rate [ 88 From Monitor] Respiratory 29 H 13 17 Rate Respiratory Rate [Anterior Bilateral Throughout] Blood Pressure 170/79 132/48 132/48 O2 Sat by Pulse 88 89 95 Oximetry 12/02/20 12/02/20 12/02/20 04:30 04:46 05:00 Temperature Pulse Rate 85 92 H 92 H Pulse Rate [ Anterior Bilateral Throughout] Pulse Rate [ From Monitor] Respiratory 18 14 12 Rate Respiratory Rate [Anterior Bilateral Throughout] Blood Pressure 132/48 132/48 150/83 O2 Sat by Pulse 94 93 91 Oximetry 12/02/20 12/02/20 12/02/20 05:16 05:30 05:46 Temperature Pulse Rate 100 H 98 H 98 H Pulse Rate [ Anterior Bilateral Throughout] Pulse Rate [ From Monitor] Respiratory 15 15 36 H Rate Respiratory Rate [Anterior Bilateral Throughout] Blood Pressure 150/83 150/83 150/83 O2 Sat by Pulse 93 96 94 Oximetry 12/02/20 12/02/20 12/02/20 06:00 06:16 06:30 Temperature Pulse Rate 98 H 109 H 103 H Pulse Rate [ Anterior Bilateral Throughout] Pulse Rate [ From Monitor] Respiratory 16 23 27 H Rate Respiratory Rate [Anterior Bilateral Throughout] Blood Pressure 194/92 194/92 194/92 O2 Sat by Pulse 93 91 90 Oximetry 12/02/20 12/02/20 12/02/20 06:46 07:00 07:16 Temperature Pulse Rate 112 H 105 H 104 H Pulse Rate [ Anterior Bilateral Throughout] Pulse Rate [ From Monitor] Respiratory 17 22 32 H Rate Respiratory Rate [Anterior Bilateral Throughout] Blood Pressure 194/92 207/104 207/104 O2 Sat by Pulse 80 L 93 94 Oximetry 12/02/20 12/02/20 12/02/20 07:30 07:46 08:00 Temperature 98.5 F Pulse Rate 139 H 134 H 117 H Pulse Rate [ Anterior Bilateral Throughout] Pulse Rate [ From Monitor] Respiratory 24 38 H 33 H Rate Respiratory Rate [Anterior Bilateral Throughout] Blood Pressure 212/112 212/112 172/88 O2 Sat by Pulse 88 91 91 Oximetry 12/02/20 12/02/20 12/02/20 08:16 08:30 08:33 Temperature Pulse Rate 108 H 108 H Pulse Rate [ Anterior Bilateral Throughout] Pulse Rate [ From Monitor] Respiratory 32 H 31 H Rate Respiratory Rate [Anterior Bilateral Throughout] Blood Pressure 172/88 172/88 O2 Sat by Pulse 93 94 94 Oximetry 12/02/20 12/02/20 12/02/20 08:58 10:52 10:54 Temperature Pulse Rate 106 H 104 H Pulse Rate [ 102 H Anterior Bilateral Throughout] Pulse Rate [ From Monitor] Respiratory Rate Respiratory 20 Rate [Anterior Bilateral Throughout] Blood Pressure 163/80 163/80 O2 Sat by Pulse Oximetry Constitutional: no acute distress, alert Eyes: non-icteric ENT: oropharynx moist Neck: supple, other (large in circumference) Effort: normal Ascultation: Bilateral: clear, diminished breath sounds, wheezes Percussion: Bilateral: not dull Cardiovascular: other (tachy, no mrg) Gastrointestinal: normoactive bowel sounds, soft, non-tender, non-distended Extremities: no cyanosis, no edema, pink and warm Neurologic: normal mental status, non-focal exam, pupils equal and round Psychiatric: mood appropriate, affect normal CBC and BMP: 11/28/20 09:21 12/03/20 05:40 ABG, PT/INR, D-dimer: ABG ABG pH 7.281 (7.320-7.450) L 11/24/20 01:48 POC ABG pCO2 58.4 mmHg (32.0-48.0) H 11/24/20 01:48 POC ABG pO2 98.1 mmHg (83-108) 11/24/20 01:48 POC ABG HCO3 26.9 11/24/20 01:48 ABG O2 Saturation 96.9 (0-100) 11/24/20 01:48 PT/INR, D-dimer PT 13.5 Sec. (12.2-14.9) 11/21/20 20:50 INR 0.98 (0.87-1.13) 11/21/20 20:50 Abnormal lab findings: Abnormal Labs 11/21/20 11/21/20 11/22/20 20:50 20:50 00:11 WBC RBC 3.48 L Hgb 11.1 L Hct 34.3 L MCV 99 H Lymph % (Auto) 6.8 L [place] % (Auto) Lymph # (Auto) 0.6 L [place] # (Auto) Seg Neutrophils % 85.5 H Seg Neuts % (Manual) Nucleated RBC % Seg Neutrophils # Seg Neutrophils # Man Lymphocytes # (Manual) ABG pH POC ABG pCO2 POC ABG pO2 ABG Hemoglobin ABG Sodium ABG Potassium ABG Glucose Carboxyhemoglobin Sodium 130 L Potassium 7.3 H* Chloride 91.1 L Carbon Dioxide BUN 40 H Creatinine 2.1 H Glucose 195 H POC Glucose Lactic Acid Calcium Phosphorus AST 91 H ALT 65 H CK-MB (CK-2) Rel Index 4.1 H Troponin T 0.045 H NT-Pro-B Natriuret Pep 6998 H Serum Total Protein Total Protein Albumin 3.7 L Modlt-1-Opuwqfhmp Gamma Globulins PEP Interpretation HDL Cholesterol 60 H Arterial Blood Glucose Arterial Blood Ionized Calcium Urine WBC (Auto) Urine Creatinine 158.2 H Hepatitis C Antibody 11/22/20 11/22/20 11/22/20 00:23 00:40 01:37 WBC 14.1 H RBC 3.53 L Hgb 11.0 L Hct 34.1 L MCV 97 H Lymph % (Auto) 12.3 L [place] % (Auto) 14.2 H Lymph # (Auto) [place] # (Auto) 2.0 H Seg Neutrophils % 72.3 H Seg Neuts % (Manual) Nucleated RBC % Seg Neutrophils # 10.2 H Seg Neutrophils # Man Lymphocytes # (Manual) ABG pH POC ABG pCO2 POC ABG pO2 ABG Hemoglobin ABG Sodium ABG Potassium ABG Glucose Carboxyhemoglobin Sodium Potassium 5.1 H D Chloride Carbon Dioxide BUN Creatinine Glucose POC Glucose Lactic Acid 2.10 H* Calcium Phosphorus AST ALT CK-MB (CK-2) Rel Index Troponin T NT-Pro-B Natriuret Pep Serum Total Protein Total Protein Albumin Dbtcd-5-Lrhflqcaz Gamma Globulins PEP Interpretation HDL Cholesterol Arterial Blood Glucose Arterial Blood Ionized Calcium Urine WBC (Auto) Urine Creatinine Hepatitis C Antibody 11/22/20 11/22/20 11/22/20 01:37 03:20 05:00 WBC RBC Hgb Hct MCV Lymph % (Auto) [place] % (Auto) Lymph # (Auto) [place] # (Auto) Seg Neutrophils % Seg Neuts % (Manual) Nucleated RBC % Seg Neutrophils # Seg Neutrophils # Man Lymphocytes # (Manual) ABG pH POC ABG pCO2 58.4 H POC ABG pO2 ABG Hemoglobin 11.1 L ABG Sodium 135.1 L ABG Potassium 5.0 H ABG Glucose Carboxyhemoglobin Sodium Potassium 5.1 H Chloride Carbon Dioxide 31 H BUN 40 H Creatinine 2.0 H Glucose 49 L POC Glucose Lactic Acid Calcium Phosphorus AST ALT CK-MB (CK-2) Rel Index Troponin T NT-Pro-B Natriuret Pep Serum Total Protein Total Protein Albumin Xrobd-5-Tzctccyvd Gamma Globulins PEP Interpretation HDL Cholesterol Arterial Blood Glucose Arterial Blood Ionized Calcium Urine WBC (Auto) 33.0 H Urine Creatinine Hepatitis C Antibody 11/22/20 11/22/20 11/22/20 05:00 05:00 05:00 WBC RBC Hgb Hct MCV Lymph % (Auto) [place] % (Auto) Lymph # (Auto) [place] # (Auto) Seg Neutrophils % Seg Neuts % (Manual) Nucleated RBC % Seg Neutrophils # Seg Neutrophils # Man Lymphocytes # (Manual) ABG pH POC ABG pCO2 POC ABG pO2 ABG Hemoglobin ABG Sodium ABG Potassium ABG Glucose Carboxyhemoglobin Sodium 136 L Potassium Chloride 97.8 L Carbon Dioxide BUN 41 H Creatinine 1.8 H 1.8 H Glucose POC Glucose Lactic Acid Calcium 8.2 L Phosphorus AST ALT CK-MB (CK-2) Rel Index Troponin T 0.065 H D NT-Pro-B Natriuret Pep Serum Total Protein Total Protein Albumin Hpwfm-8-Ydcrwnakh Gamma Globulins PEP Interpretation HDL Cholesterol Arterial Blood Glucose Arterial Blood Ionized Calcium Urine WBC (Auto) Urine Creatinine Hepatitis C Antibody 11/22/20 11/22/20 11/22/20 10:20 10:20 15:00 WBC RBC 3.16 L Hgb 10.2 L Hct 29.9 L MCV 95 H Lymph % (Auto) [place] % (Auto) Lymph # (Auto) [place] # (Auto) Seg Neutrophils % Seg Neuts % (Manual) Nucleated RBC % Seg Neutrophils # Seg Neutrophils # Man Lymphocytes # (Manual) ABG pH 7.501 H POC ABG pCO2 POC ABG pO2 ABG Hemoglobin 10.5 L ABG Sodium 134.9 L ABG Potassium ABG Glucose 115 H Carboxyhemoglobin 0.4 L Sodium Potassium Chloride Carbon Dioxide BUN Creatinine Glucose POC Glucose Lactic Acid Calcium Phosphorus AST ALT CK-MB (CK-2) Rel Index Troponin T 0.078 H NT-Pro-B Natriuret Pep Serum Total Protein Total Protein Albumin Liaro-2-Vwsivldyg Gamma Globulins PEP Interpretation HDL Cholesterol Arterial Blood Glucose 115 H Arterial Blood Ionized Calcium 4.3 L Urine WBC (Auto) Urine Creatinine Hepatitis C Antibody 11/22/20 11/22/20 11/22/20 16:00 17:45 23:21 WBC RBC Hgb Hct MCV Lymph % (Auto) [place] % (Auto) Lymph # (Auto) [place] # (Auto) Seg Neutrophils % Seg Neuts % (Manual) Nucleated RBC % Seg Neutrophils # Seg Neutrophils # Man Lymphocytes # (Manual) ABG pH POC ABG pCO2 POC ABG pO2 ABG Hemoglobin ABG Sodium ABG Potassium ABG Glucose Carboxyhemoglobin Sodium Potassium Chloride Carbon Dioxide BUN Creatinine Glucose POC Glucose 107 H 115 H Lactic Acid Calcium Phosphorus AST ALT CK-MB (CK-2) Rel Index Troponin T NT-Pro-B Natriuret Pep Serum Total Protein Total Protein Albumin Qqbrn-9-Trnwrvymv Gamma Globulins PEP Interpretation HDL Cholesterol Arterial Blood Glucose Arterial Blood Ionized Calcium Urine WBC (Auto) Urine Creatinine Hepatitis C Antibody Reactive A 11/23/20 11/23/20 11/23/20 03:03 05:33 10:00 WBC RBC 3.33 L Hgb 10.6 L Hct 32.2 L MCV 97 H Lymph % (Auto) [place] % (Auto) 15.0 H Lymph # (Auto) [place] # (Auto) 1.5 H Seg Neutrophils % Seg Neuts % (Manual) Nucleated RBC % Seg Neutrophils # Seg Neutrophils # Man Lymphocytes # (Manual) ABG pH POC ABG pCO2 POC ABG pO2 115.8 H ABG Hemoglobin 10.1 L ABG Sodium 135.8 L ABG Potassium ABG Glucose 98 H Carboxyhemoglobin 0.4 L Sodium Potassium Chloride Carbon Dioxide BUN Creatinine Glucose POC Glucose 106 H Lactic Acid Calcium Phosphorus AST ALT CK-MB (CK-2) Rel Index Troponin T NT-Pro-B Natriuret Pep Serum Total Protein Total Protein Albumin Nidws-0-Lppnhnglm Gamma Globulins PEP Interpretation HDL Cholesterol Arterial Blood Glucose 98 H Arterial Blood Ionized Calcium 4.4 L Urine WBC (Auto) Urine Creatinine Hepatitis C Antibody 11/23/20 11/23/20 11/23/20 10:00 10:00 12:12 WBC RBC Hgb Hct MCV Lymph % (Auto) [place] % (Auto) Lymph # (Auto) [place] # (Auto) Seg Neutrophils % Seg Neuts % (Manual) Nucleated RBC % Seg Neutrophils # Seg Neutrophils # Man Lymphocytes # (Manual) ABG pH POC ABG pCO2 POC ABG pO2 ABG Hemoglobin ABG Sodium ABG Potassium ABG Glucose Carboxyhemoglobin Sodium Potassium Chloride Carbon Dioxide BUN 22 H Creatinine Glucose 101 H POC Glucose 119 H Lactic Acid Calcium 7.9 L Phosphorus AST ALT CK-MB (CK-2) Rel Index Troponin T NT-Pro-B Natriuret Pep Serum Total Protein 5.3 L Total Protein 5.5 L Albumin 2.8 L 2.8 L Xliwm-6-Aghaqyyyd 0.4 H Gamma Globulins 0.7 L PEP Interpretation see below H HDL Cholesterol Arterial Blood Glucose Arterial Blood Ionized Calcium Urine WBC (Auto) Urine Creatinine Hepatitis C Antibody 11/23/20 11/23/20 11/24/20 18:21 23:28 01:48 WBC RBC Hgb Hct MCV Lymph % (Auto) [place] % (Auto) Lymph # (Auto) [place] # (Auto) Seg Neutrophils % Seg Neuts % (Manual) Nucleated RBC % Seg Neutrophils # Seg Neutrophils # Man Lymphocytes # (Manual) ABG pH 7.281 L POC ABG pCO2 58.4 H POC ABG pO2 ABG Hemoglobin 11.8 L ABG Sodium ABG Potassium ABG Glucose 101 H Carboxyhemoglobin Sodium Potassium Chloride Carbon Dioxide BUN Creatinine Glucose POC Glucose 106 H 108 H Lactic Acid Calcium Phosphorus AST ALT CK-MB (CK-2) Rel Index Troponin T NT-Pro-B Natriuret Pep Serum Total Protein Total Protein Albumin Kfdgb-4-Kgfbyywsc Gamma Globulins PEP Interpretation HDL Cholesterol Arterial Blood Glucose 101 H Arterial Blood Ionized Calcium Urine WBC (Auto) Urine Creatinine Hepatitis C Antibody 11/24/20 11/24/20 11/25/20 09:58 09:58 00:29 WBC RBC Hgb Hct MCV Lymph % (Auto) [place] % (Auto) Lymph # (Auto) [place] # (Auto) Seg Neutrophils % Seg Neuts % (Manual) Nucleated RBC % Seg Neutrophils # Seg Neutrophils # Man Lymphocytes # (Manual) ABG pH POC ABG pCO2 POC ABG pO2 ABG Hemoglobin ABG Sodium ABG Potassium ABG Glucose Carboxyhemoglobin Sodium 148 H Potassium Chloride Carbon Dioxide 34 H D BUN Creatinine Glucose POC Glucose 111 H Lactic Acid 0.60 L Calcium Phosphorus AST ALT CK-MB (CK-2) Rel Index Troponin T NT-Pro-B Natriuret Pep Serum Total Protein Total Protein Albumin Stozu-6-Pkrxpldpr Gamma Globulins PEP Interpretation HDL Cholesterol Arterial Blood Glucose Arterial Blood Ionized Calcium Urine WBC (Auto) Urine Creatinine Hepatitis C Antibody 11/25/20 11/25/20 11/25/20 05:48 08:18 08:18 WBC 13.2 H RBC 3.56 L Hgb 10.9 L Hct 34.0 L MCV 96 H Lymph % (Auto) [place] % (Auto) Lymph # (Auto) [place] # (Auto) Seg Neutrophils % Seg Neuts % (Manual) 98.0 H Nucleated RBC % 1.0 H Seg Neutrophils # Seg Neutrophils # Man 12.9 H Lymphocytes # (Manual) 0.0 L ABG pH POC ABG pCO2 POC ABG pO2 ABG Hemoglobin ABG Sodium ABG Potassium ABG Glucose Carboxyhemoglobin Sodium 147 H Potassium Chloride Carbon Dioxide 32 H BUN 26 H Creatinine Glucose 151 H POC Glucose 148 H Lactic Acid Calcium Phosphorus AST ALT CK-MB (CK-2) Rel Index Troponin T NT-Pro-B Natriuret Pep Serum Total Protein Total Protein 6.0 L Albumin 3.7 L Iwami-7-Cycncmyrj Gamma Globulins PEP Interpretation HDL Cholesterol Arterial Blood Glucose Arterial Blood Ionized Calcium Urine WBC (Auto) Urine Creatinine Hepatitis C Antibody 11/25/20 11/25/20 11/25/20 11:34 18:03 23:15 WBC RBC Hgb Hct MCV Lymph % (Auto) [place] % (Auto) Lymph # (Auto) [place] # (Auto) Seg Neutrophils % Seg Neuts % (Manual) Nucleated RBC % Seg Neutrophils # Seg Neutrophils # Man Lymphocytes # (Manual) ABG pH POC ABG pCO2 POC ABG pO2 ABG Hemoglobin ABG Sodium ABG Potassium ABG Glucose Carboxyhemoglobin Sodium Potassium Chloride Carbon Dioxide BUN Creatinine Glucose POC Glucose 144 H 147 H 158 H Lactic Acid Calcium Phosphorus AST ALT CK-MB (CK-2) Rel Index Troponin T NT-Pro-B Natriuret Pep Serum Total Protein Total Protein Albumin Ifdxv-3-Gwuleance Gamma Globulins PEP Interpretation HDL Cholesterol Arterial Blood Glucose Arterial Blood Ionized Calcium Urine WBC (Auto) Urine Creatinine Hepatitis C Antibody 11/26/20 11/26/20 11/26/20 05:07 06:22 06:22 WBC 12.3 H RBC 3.52 L Hgb 11.1 L Hct 33.6 L MCV 95 H Lymph % (Auto) [place] % (Auto) Lymph # (Auto) [place] # (Auto) Seg Neutrophils % Seg Neuts % (Manual) Nucleated RBC % Seg Neutrophils # Seg Neutrophils # Man Lymphocytes # (Manual) ABG pH POC ABG pCO2 POC ABG pO2 ABG Hemoglobin ABG Sodium ABG Potassium ABG Glucose Carboxyhemoglobin Sodium Potassium 3.3 L Chloride 95.8 L Carbon Dioxide 33 H BUN 35 H Creatinine 1.4 H Glucose 185 H POC Glucose 184 H Lactic Acid Calcium Phosphorus AST ALT CK-MB (CK-2) Rel Index Troponin T 0.036 H D NT-Pro-B Natriuret Pep Serum Total Protein Total Protein 6.2 L Albumin 3.1 L Cozng-5-Vmpmmjhxf Gamma Globulins PEP Interpretation HDL Cholesterol Arterial Blood Glucose Arterial Blood Ionized Calcium Urine WBC (Auto) Urine Creatinine Hepatitis C Antibody 11/26/20 11/26/20 11/26/20 12:52 17:30 23:14 WBC RBC Hgb Hct MCV Lymph % (Auto) [place] % (Auto) Lymph # (Auto) [place] # (Auto) Seg Neutrophils % Seg Neuts % (Manual) Nucleated RBC % Seg Neutrophils # Seg Neutrophils # Man Lymphocytes # (Manual) ABG pH POC ABG pCO2 POC ABG pO2 ABG Hemoglobin ABG Sodium ABG Potassium ABG Glucose Carboxyhemoglobin Sodium Potassium Chloride Carbon Dioxide BUN Creatinine Glucose POC Glucose 170 H 133 H 149 H Lactic Acid Calcium Phosphorus AST ALT CK-MB (CK-2) Rel Index Troponin T NT-Pro-B Natriuret Pep Serum Total Protein Total Protein Albumin Benlq-7-Lkyipvlkj Gamma Globulins PEP Interpretation HDL Cholesterol Arterial Blood Glucose Arterial Blood Ionized Calcium Urine WBC (Auto) Urine Creatinine Hepatitis C Antibody 11/27/20 11/27/20 11/27/20 05:35 08:03 12:02 WBC RBC Hgb Hct MCV Lymph % (Auto) [place] % (Auto) Lymph # (Auto) [place] # (Auto) Seg Neutrophils % Seg Neuts % (Manual) Nucleated RBC % Seg Neutrophils # Seg Neutrophils # Man Lymphocytes # (Manual) ABG pH POC ABG pCO2 POC ABG pO2 ABG Hemoglobin ABG Sodium ABG Potassium ABG Glucose Carboxyhemoglobin Sodium Potassium Chloride 97.0 L Carbon Dioxide 31 H BUN 41 H Creatinine 1.4 H Glucose 145 H POC Glucose 135 H 139 H Lactic Acid Calcium Phosphorus 2.20 L AST ALT CK-MB (CK-2) Rel Index Troponin T NT-Pro-B Natriuret Pep Serum Total Protein Total Protein Albumin Eletv-7-Hgfmtmgyq Gamma Globulins PEP Interpretation HDL Cholesterol Arterial Blood Glucose Arterial Blood Ionized Calcium Urine WBC (Auto) Urine Creatinine Hepatitis C Antibody 11/27/20 11/28/20 11/28/20 18:41 05:26 06:08 WBC RBC Hgb Hct MCV Lymph % (Auto) [place] % (Auto) Lymph # (Auto) [place] # (Auto) Seg Neutrophils % Seg Neuts % (Manual) Nucleated RBC % Seg Neutrophils # Seg Neutrophils # Man Lymphocytes # (Manual) ABG pH POC ABG pCO2 POC ABG pO2 ABG Hemoglobin ABG Sodium ABG Potassium ABG Glucose Carboxyhemoglobin Sodium Potassium Chloride Carbon Dioxide BUN 45 H Creatinine 1.4 H Glucose 135 H POC Glucose 148 H 143 H Lactic Acid Calcium Phosphorus AST ALT CK-MB (CK-2) Rel Index Troponin T NT-Pro-B Natriuret Pep Serum Total Protein Total Protein Albumin Aoovp-3-Bkvyovxjf Gamma Globulins PEP Interpretation HDL Cholesterol Arterial Blood Glucose Arterial Blood Ionized Calcium Urine WBC (Auto) Urine Creatinine Hepatitis C Antibody 11/28/20 11/28/20 11/28/20 11:46 17:31 21:17 WBC RBC Hgb Hct MCV Lymph % (Auto) [place] % (Auto) Lymph # (Auto) [place] # (Auto) Seg Neutrophils % Seg Neuts % (Manual) Nucleated RBC % Seg Neutrophils # Seg Neutrophils # Man Lymphocytes # (Manual) ABG pH POC ABG pCO2 POC ABG pO2 ABG Hemoglobin ABG Sodium ABG Potassium ABG Glucose Carboxyhemoglobin Sodium Potassium Chloride Carbon Dioxide BUN Creatinine Glucose POC Glucose 132 H 156 H 122 H Lactic Acid Calcium Phosphorus AST ALT CK-MB (CK-2) Rel Index Troponin T NT-Pro-B Natriuret Pep Serum Total Protein Total Protein Albumin Rslpn-9-Boszfeegl Gamma Globulins PEP Interpretation HDL Cholesterol Arterial Blood Glucose Arterial Blood Ionized Calcium Urine WBC (Auto) Urine Creatinine Hepatitis C Antibody 11/29/20 11/29/20 11/29/20 00:06 04:43 05:15 WBC RBC Hgb Hct MCV Lymph % (Auto) [place] % (Auto) Lymph # (Auto) [place] # (Auto) Seg Neutrophils % Seg Neuts % (Manual) Nucleated RBC % Seg Neutrophils # Seg Neutrophils # Man Lymphocytes # (Manual) ABG pH POC ABG pCO2 POC ABG pO2 ABG Hemoglobin ABG Sodium ABG Potassium ABG Glucose Carboxyhemoglobin Sodium Potassium Chloride 97.7 L Carbon Dioxide BUN 56 H Creatinine 1.6 H Glucose 132 H POC Glucose 114 H 125 H Lactic Acid Calcium Phosphorus AST ALT CK-MB (CK-2) Rel Index Troponin T NT-Pro-B Natriuret Pep Serum Total Protein Total Protein Albumin Pdaxg-7-Nyzhpsjjv Gamma Globulins PEP Interpretation HDL Cholesterol Arterial Blood Glucose Arterial Blood Ionized Calcium Urine WBC (Auto) Urine Creatinine Hepatitis C Antibody 11/29/20 11/29/20 11/30/20 12:09 18:12 04:47 WBC RBC Hgb Hct MCV Lymph % (Auto) [place] % (Auto) Lymph # (Auto) [place] # (Auto) Seg Neutrophils % Seg Neuts % (Manual) Nucleated RBC % Seg Neutrophils # Seg Neutrophils # Man Lymphocytes # (Manual) ABG pH POC ABG pCO2 POC ABG pO2 ABG Hemoglobin ABG Sodium ABG Potassium ABG Glucose Carboxyhemoglobin Sodium Potassium Chloride Carbon Dioxide 31 H BUN 59 H Creatinine 1.6 H Glucose 122 H POC Glucose 142 H 132 H Lactic Acid Calcium Phosphorus AST ALT CK-MB (CK-2) Rel Index Troponin T NT-Pro-B Natriuret Pep Serum Total Protein Total Protein Albumin Yiobs-3-Tiuwjpiqb Gamma Globulins PEP Interpretation HDL Cholesterol Arterial Blood Glucose Arterial Blood Ionized Calcium Urine WBC (Auto) Urine Creatinine Hepatitis C Antibody 11/30/20 11/30/20 11/30/20 05:45 11:47 18:16 WBC RBC Hgb Hct MCV Lymph % (Auto) [place] % (Auto) Lymph # (Auto) [place] # (Auto) Seg Neutrophils % Seg Neuts % (Manual) Nucleated RBC % Seg Neutrophils # Seg Neutrophils # Man Lymphocytes # (Manual) ABG pH POC ABG pCO2 POC ABG pO2 ABG Hemoglobin ABG Sodium ABG Potassium ABG Glucose Carboxyhemoglobin Sodium Potassium Chloride Carbon Dioxide BUN Creatinine Glucose POC Glucose 118 H 123 H 126 H Lactic Acid Calcium Phosphorus AST ALT CK-MB (CK-2) Rel Index Troponin T NT-Pro-B Natriuret Pep Serum Total Protein Total Protein Albumin Pocld-8-Unenaqnzw Gamma Globulins PEP Interpretation HDL Cholesterol Arterial Blood Glucose Arterial Blood Ionized Calcium Urine WBC (Auto) Urine Creatinine Hepatitis C Antibody 12/01/20 12/01/20 12/01/20 00:11 04:57 05:41 WBC RBC Hgb Hct MCV Lymph % (Auto) [place] % (Auto) Lymph # (Auto) [place] # (Auto) Seg Neutrophils % Seg Neuts % (Manual) Nucleated RBC % Seg Neutrophils # Seg Neutrophils # Man Lymphocytes # (Manual) ABG pH POC ABG pCO2 POC ABG pO2 ABG Hemoglobin ABG Sodium ABG Potassium ABG Glucose Carboxyhemoglobin Sodium Potassium Chloride Carbon Dioxide BUN 52 H Creatinine 1.4 H Glucose 121 H POC Glucose 117 H 120 H Lactic Acid Calcium Phosphorus AST ALT CK-MB (CK-2) Rel Index Troponin T NT-Pro-B Natriuret Pep Serum Total Protein Total Protein Albumin Dyujs-2-Ywbumjjtt Gamma Globulins PEP Interpretation HDL Cholesterol Arterial Blood Glucose Arterial Blood Ionized Calcium Urine WBC (Auto) Urine Creatinine Hepatitis C Antibody 12/01/20 12/02/20 12/02/20 23:35 06:02 08:09 WBC RBC Hgb Hct MCV Lymph % (Auto) [place] % (Auto) Lymph # (Auto) [place] # (Auto) Seg Neutrophils % Seg Neuts % (Manual) Nucleated RBC % Seg Neutrophils # Seg Neutrophils # Man Lymphocytes # (Manual) ABG pH POC ABG pCO2 POC ABG pO2 ABG Hemoglobin ABG Sodium ABG Potassium ABG Glucose Carboxyhemoglobin Sodium Potassium Chloride Carbon Dioxide BUN Creatinine Glucose POC Glucose 117 H 108 H 117 H Lactic Acid Calcium Phosphorus AST ALT CK-MB (CK-2) Rel Index Troponin T NT-Pro-B Natriuret Pep Serum Total Protein Total Protein Albumin Spxus-0-Foxtulxyd Gamma Globulins PEP Interpretation HDL Cholesterol Arterial Blood Glucose Arterial Blood Ionized Calcium Urine WBC (Auto) Urine Creatinine Hepatitis C Antibody 12/02/20 09:40 WBC RBC Hgb Hct MCV Lymph % (Auto) [place] % (Auto) Lymph # (Auto) [place] # (Auto) Seg Neutrophils % Seg Neuts % (Manual) Nucleated RBC % Seg Neutrophils # Seg Neutrophils # Man Lymphocytes # (Manual) ABG pH POC ABG pCO2 POC ABG pO2 ABG Hemoglobin ABG Sodium ABG Potassium ABG Glucose Carboxyhemoglobin Sodium Potassium Chloride 97.6 L Carbon Dioxide 35 H BUN 45 H Creatinine Glucose POC Glucose Lactic Acid Calcium Phosphorus AST ALT CK-MB (CK-2) Rel Index Troponin T NT-Pro-B Natriuret Pep Serum Total Protein Total Protein Albumin Bjomo-5-Cwlwbuuuv Gamma Globulins PEP Interpretation HDL Cholesterol Arterial Blood Glucose Arterial Blood Ionized Calcium Urine WBC (Auto) Urine Creatinine Hepatitis C Antibody
[2020-12-02] MEDS: LANSOPRAZOLE 30 MG SOLUTAB FEEDTUBE SCH (12:33)
--- NOTE | 2020-12-02 17:34 | Progress Note ---
Assessment and Plan Assessment and plan: PT/OT evaluation, when he comes off high flow oxygen --Hypokalemia; resolved Monitor electrolytes --Acute kidney injury; vasomotor nephropathy Gentle hydration closely monitor renal function --Acute hypoxic respiratory failure/Requiring intubation 11/21/2020 s/p extubation 11/23/2020, patient is on noninvasive ventilation on high flow nasal cannula oxygen 20 L/40 Fio2/97% sat today slightly better 15 L 35 FiO2 O2 sats 94% Wean as tolerated, --Acute exacerbation of COPD; Home oxygen dependent BiPAP as needed, wean as tolerated Pulmonary hygiene, pulmonary critical care following --Severe pulmonary hypertension; Management per pulmonary, continue supportive care --Acute metabolic encephalopathy -11/21 CT head shows no acute intracranial abnormality, sinus disease Continue supportive care --NSTEMI type II Presented with CARRIE with elevated troponins cardiology patient had a stress test in 2019 which showed no significant ischemia, Echo; EF 50 to 55% severe pulmonary hypertension moderate mitral stenosis may benefit from HECTOR for evaluation of mitral valve when patient is stable and extubated --Acute kidney injury; present on admission Vasomotor nephropathy Now resolved, normal renal function Avoid nephrotoxins, nephrology following --History of bladder cancer; Indwelling Paulson in place, supportive care Continue Flomax --Urinary tract infection; Continue empiric antibiotics total 5 days Supportive care --Dyslipidemia; Continue statin and low-cholesterol diet --Hypertension; moderate control We will continue current antihypertensives And as needed hydralazine --Hypernatremia ; Patient was hyponatremia on admission ,probably overcorrection Free water via [place], nephrology following Monitor electrolytes --Severe protein calorie malnutrition ; Hypoalbuminemia ,nutrition supplements Nutrition consult and supportive care --DVT prophylaxis; Subcu heparin, SCDs --GI prophylaxis; Continue Prevacid --Full CODE STATUS; Bedside swallow screen, if normal start diet pured/mechanical soft advance as tolerated We will also request physical therapy We will closely monitor the patient and adjust the management as needed Consults and recommendations noted and appreciated Plan of care reviewed with the patient's nurse PT OT when he comes off high flow oxygen DC planning per case management; considering LTAC placement The high probability of a clinically significant, sudden or life threatening deterioration of the [resp, cardiac, nephrology, metabolic] system(s) required my full and direct attention, intervention and personal management. The aggregate critical care time was [34] minutes. This time is in addition to time spent performing reported procedures but includes the following: [x] Data Review and interpretation [x] Patient assessment and monitoring of vital signs [x] Documentation [x] Medication orders and management Brief history and daily hospital course: 85-year-old male patient with past medical history of COPD on home oxygen, GERD, hypertension, asthma, hyperlipidemia, vasopressin, bladder cancer admitted for acute hypoxic respiratory failure, intubated on 11/21/2020 managed appropriately evaluated by pulmonary critical subsequently extubated on 11/23/2020, today patient is on high flow nasal cannula oxygen, pulmonary critical, cardiology and nephrology following the patient 11/23: Patient was extubated, currently on BiPAP Mild distress, wean as tolerated 11/25/2020; patient is on BiPAP Mild distress, noncommunicative 11/26/2020; patient is on intermittent BiPAP Currently on high flow nasal cannula oxygen 11/27/2020; patient is more alert and awake Will get swallow screen, if normal start pured diet Transfer the patient to [facility] 11/28/2020; patient is on high flow oxygen slightly better than yesterday Able to tolerate mechanical soft diet when the family comes and helps him DC planning, considering LTAC placement 11/29 Still on HFNC oxygen 11/30 Still on HFNC oxygen 12/01 on 35 liters O2 12/02; patient remains on high flow oxygen, more alert and awake Discussed in detail with patient's son who is at the bedside patient's condition Treatment plan, he verbalized understanding History Interval history: I have seen and examined the patient at the bedside Patient's chart and medications reviewed Patient is more alert and awake Patient seen Citizen Of [place]-speaking at the bedside Complains of burning and irritation of the Paulson catheter Vital signs noted On high flow oxygen 25 L Hospitalist Physical - Constitutional Vitals: Temp Pulse Resp BP Pulse Ox 98.5 F 89 20 163/80 96 12/02/20 12:00 12/02/20 14:08 12/02/20 14:08 12/02/20 10:54 12/02/20 13:44 General appearance: Present: no acute distress, well-nourished, obese, other (On high flow oxygen) - EENT Eyes: Present: PERRL, EOM intact - Neck Neck: Present: supple, normal ROM - Respiratory Respiratory effort: normal Respiratory: bilateral: diminished, negative: rales, rhonchi, wheezing - Cardiovascular Rhythm: regular Heart Sounds: Present: S1 & S2 - Extremities Extremities: no ischemia Extremity abnormal: edema - Abdominal General gastrointestinal: soft, non-tender, non-distended, normal bowel sounds - Integumentary Integumentary: Present: clear, warm - Psychiatric Psychiatric: appropriate mood/affect, other (Confused at times) - Neurologic Neurologic: moves all extremities HEART Score - HEART Score Troponin: Troponin T 0.021 ng/mL (0.00-0.029) 11/29/20 04:43 Results - Labs CBC & Chem 7: 11/28/20 09:21 12/03/20 05:40 Labs: Laboratory Last Values WBC 9.8 K/mm3 (4.5-11.0) 11/28/20 09:21 RBC 4.01 M/mm3 (3.65-5.03) 11/28/20 09:21 Hgb 12.3 gm/dl (11.8-15.2) 11/28/20 09:21 Hct 37.6 % (35.5-45.6) 11/28/20 09:21 MCV 94 fl (84-94) 11/28/20 09:21 MCH 31 pg (28-32) 11/28/20 09:21 MCHC 33 % (32-34) 11/28/20 09:21 RDW 15.1 % (13.2-15.2) 11/28/20 09:21 Plt Count 369 K/mm3 (140-440) 11/28/20 09:21 Lymph % (Auto) 16.1 % (13.4-35.0) 11/23/20 10:00 [place] % (Auto) 15.0 % (0.0-7.3) H 11/23/20 10:00 Eos % (Auto) 1.0 % (0.0-4.3) 11/23/20 10:00 Baso % (Auto) 0.5 % (0.0-1.8) 11/23/20 10:00 Lymph # (Auto) 1.6 K/mm3 (1.2-5.4) 11/23/20 10:00 [place] # (Auto) 1.5 K/mm3 (0.0-0.8) H 11/23/20 10:00 Eos # (Auto) 0.1 K/mm3 (0.0-0.4) 11/23/20 10:00 Baso # (Auto) 0.1 K/mm3 (0.0-0.1) 11/23/20 10:00 Add Manual Diff Complete 11/25/20 08:18 Total Counted 100 11/25/20 08:18 Seg Neutrophils % [employer] 11/25/20 08:18 Seg Neuts % (Manual) 98.0 % (40.0-70.0) H 11/25/20 08:18 Monocytes % (Manual) 2.0 % (0.0-7.3) 11/25/20 08:18 Nucleated RBC % 1.0 % (0.0-0.9) H 11/25/20 08:18 Seg Neutrophils # 6.6 K/mm3 (1.8-7.7) 11/23/20 10:00 Seg Neutrophils # Man 12.9 K/mm3 (1.8-7.7) H 11/25/20 08:18 Band Neutrophils # 0.0 K/mm3 11/25/20 08:18 Lymphocytes # (Manual) 0.0 K/mm3 (1.2-5.4) L 11/25/20 08:18 Abs React Lymphs (Man) 0.0 K/mm3 11/25/20 08:18 Monocytes # (Manual) 0.3 K/mm3 (0.0-0.8) 11/25/20 08:18 Eosinophils # (Manual) 0.0 K/mm3 (0.0-0.4) 11/25/20 08:18 Basophils # (Manual) 0.0 K/mm3 (0.0-0.1) 11/25/20 08:18 Metamyelocytes # 0.0 K/mm3 11/25/20 08:18 Myelocytes # 0.0 K/mm3 11/25/20 08:18 Promyelocytes # 43.8 K/mm3 11/25/20 08:18 Blast Cells # 0.0 K/mm3 11/25/20 08:18 WBC Morphology Not Reportable 11/25/20 08:18 Hypersegmented Neuts Not Reportable 11/25/20 08:18 Hyposegmented Neuts Not Reportable 11/25/20 08:18 Hypogranular Neuts Not Reportable 11/25/20 08:18 Smudge Cells Not Reportable 11/25/20 08:18 Toxic Granulation Few 11/25/20 08:18 Toxic Vacuolation Not Reportable 11/25/20 08:18 Dohle Bodies Not Reportable 11/25/20 08:18 Pelger-Huet Anomaly Not Reportable 11/25/20 08:18 Liang Rods Not Reportable 11/25/20 08:18 Platelet Estimate Consistent w auto 11/25/20 08:18 Clumped Platelets Not Reportable 11/25/20 08:18 Plt Clumps, EDTA Not Reportable 11/25/20 08:18 Large Platelets Not Reportable 11/25/20 08:18 Giant Platelets Not Reportable 11/25/20 08:18 Platelet Satelliting Not Reportable 11/25/20 08:18 Plt Morphology Comment Not Reportable 11/25/20 08:18 RBC Morphology Not Reportable 11/25/20 08:18 Dimorphic RBCs Not Reportable 11/25/20 08:18 Polychromasia Not Reportable 11/25/20 08:18 Hypochromasia 1+ 11/25/20 08:18 Poikilocytosis Not Reportable 11/25/20 08:18 Anisocytosis Not Reportable 11/25/20 08:18 Microcytosis Not Reportable 11/25/20 08:18 Macrocytosis Not Reportable 11/25/20 08:18 Spherocytes Not Reportable 11/25/20 08:18 Pappenheimer Bodies Not Reportable 11/25/20 08:18 Sickle Cells Not Reportable 11/25/20 08:18 Target Cells 1+ 11/25/20 08:18 Tear Drop Cells Not Reportable 11/25/20 08:18 Ovalocytes Not Reportable 11/25/20 08:18 Helmet Cells Not Reportable 11/25/20 08:18 Miranda-Blanche Bodies Not Reportable 11/25/20 08:18 [place] [employer] Rings Not Reportable 11/25/20 08:18 Deep Cells Not Reportable 11/25/20 08:18 Bite Cells Not Reportable 11/25/20 08:18 Crenated Cell Not Reportable 11/25/20 08:18 Elliptocytes Not Reportable 11/25/20 08:18 Acanthocytes (Spur) Not Reportable 11/25/20 08:18 Rouleaux Not Reportable 11/25/20 08:18 Hemoglobin C Crystals Not Reportable 11/25/20 08:18 Schistocytes Not Reportable 11/25/20 08:18 Malaria parasites Not Reportable 11/25/20 08:18 Fuad Bodies Not Reportable 11/25/20 08:18 Hem Pathologist Commnt No 11/25/20 08:18 PT 13.5 Sec. (12.2-14.9) 11/21/20 20:50 INR 0.98 (0.87-1.13) 11/21/20 20:50 APTT 32.1 Sec. (24.2-36.6) 11/21/20 20:50 ABG pH 7.281 (7.320-7.450) L 11/24/20 01:48 POC ABG pCO2 58.4 mmHg (32.0-48.0) H 11/24/20 01:48 POC ABG pO2 98.1 mmHg (83-108) 11/24/20 01:48 POC ABG HCO3 26.9 11/24/20 01:48 ABG O2 Saturation 96.9 (0-100) 11/24/20 01:48 POC ABG Base Excess -0.7 11/24/20 01:48 ABG Hemoglobin 11.8 (12.0-17.5) L 11/24/20 01:48 ABG Oxyhemoglobin 95.9 (94-98) 11/24/20 01:48 ABG Methemoglobin 0.3 (0.0-1.5) 11/24/20 01:48 ABG Sodium 140.6 mmol/L (136.0-145.0) 11/24/20 01:48 ABG Potassium 3.9 mmol/L (3.40-4.50) 11/24/20 01:48 ABG Chloride 104.0 mmol/L (98-107) 11/24/20 01:48 ABG Glucose 101 mg/dL (65-95) H 11/24/20 01:48 Carboxyhemoglobin 0.7 (0.5-1.5) 11/24/20 01:48 FiO2 % 50.0 11/24/20 01:48 Sodium 142 mmol/L (137-145) 12/02/20 09:40 Potassium 4.4 mmol/L (3.6-5.0) 12/02/20 09:40 Chloride 97.6 mmol/L (98-107) L 12/02/20 09:40 Carbon Dioxide 35 mmol/L (22-30) H 12/02/20 09:40 Anion Gap 14 mmol/L 12/02/20 09:40 BUN 45 mg/dL (9-20) H 12/02/20 09:40 Creatinine 1.2 mg/dL (0.8-1.3) 12/02/20 09:40 Estimated GFR 57 ml/min 12/02/20 09:40 BUN/Creatinine Ratio 38 % 12/02/20 09:40 Glucose 92 mg/dL (75-100) 12/02/20 09:40 POC Glucose 109 mg/dL (70-105) H 12/02/20 11:33 Lactic Acid 0.60 mmol/L (0.7-2.0) L 11/24/20 09:58 Calcium 9.8 mg/dL (8.4-10.2) 12/02/20 09:40 Phosphorus 2.20 mg/dL (2.5-4.5) L 11/27/20 08:03 Magnesium 2.10 mg/dL (1.7-2.3) 11/27/20 08:03 Total Bilirubin 0.30 mg/dL (0.1-1.2) 11/26/20 06:22 AST 18 units/L (5-40) 11/26/20 06:22 ALT 22 units/L (7-56) 11/26/20 06:22 Alkaline Phosphatase 55 units/L (35-129) 11/26/20 06:22 Total Creatine Kinase 132 units/L (55-170) 11/22/20 10:20 CK-MB (CK-2) 3.3 ng/mL (0.0-4.0) 11/22/20 10:20 CK-MB (CK-2) Rel Index 2.5 (0-4) 11/22/20 10:20 Troponin T 0.021 ng/mL (0.00-0.029) 11/29/20 04:43 NT-Pro-B Natriuret Pep 6998 pg/mL (0-900) H 11/21/20 20:50 Serum Total Protein 5.3 g/dL (6.1-8.1) L 11/23/20 10:00 Total Protein 6.2 g/dL (6.3-8.2) L 11/26/20 06:22 Albumin 3.1 g/dL (3.9-5) L 11/26/20 06:22 Albumin/Globulin Ratio 1.0 % 11/26/20 06:22 Zkifg-9-Pmbuqjcof 0.4 g/dL (0.2-0.3) H 11/23/20 10:00 Ahjpc-9-Mpskjukgz 0.8 g/dL (0.5-0.9) 11/23/20 10:00 Beta Globulins 0.3 g/dL (0.2-0.5) 11/23/20 10:00 Gamma Globulins 0.7 g/dL (0.8-1.7) L 11/23/20 10:00 Abnorm Protein Band 1 see below 11/23/20 10:00 PEP Interpretation see below H 11/23/20 10:00 Triglycerides 84 mg/dL (2-149) 11/21/20 20:50 Cholesterol 125 mg/dL (50-199) 11/21/20 20:50 LDL Cholesterol Direct 57 mg/dL (50-130) 11/21/20 20:50 HDL Cholesterol 60 mg/dL (40-59) H 11/21/20 20:50 Cholesterol/HDL Ratio 2.08 % 11/21/20 20:50 TSH 1.290 mlU/mL (0.270-4.200) 11/21/20 20:50 Free T4 1.18 ng/dL (0.76-1.46) 11/21/20 20:50 Arterial Blood Glucose 101 mg/dL (65-95) H 11/24/20 01:48 Arterial Blood Ionized Calcium 4.7 mg/dL (4.6-5.3) 11/24/20 01:48 Urine Color Yellow (Yellow) 11/22/20 05:00 Urine Turbidity Slightly-cloudy (Clear) 11/22/20 05:00 Urine pH 5.0 (5.0-7.0) 11/22/20 05:00 Ur Specific [place] 1.016 (1.003-1.030) 11/22/20 05:00 Urine Protein 30 mg/dl mg/dL (Negative) 11/22/20 05:00 Urine Glucose (UA) Neg mg/dL (Negative) 11/22/20 05:00 Urine Ketones Neg mg/dL (Negative) 11/22/20 05:00 Urine Blood Lg (Negative) 11/22/20 05:00 Urine Nitrite Neg (Negative) 11/22/20 05:00 Urine Bilirubin Neg (Negative) 11/22/20 05:00 Urine Urobilinogen < 2.0 mg/dL (<2.0) 11/22/20 05:00 Ur Leukocyte Esterase Tr (Negative) 11/22/20 05:00 Urine WBC (Auto) 33.0 /HPF (0.0-6.0) H 11/22/20 05:00 Urine RBC (Auto) 49.0 /HPF (0.0-6.0) 11/22/20 05:00 U Epithel Cells (Auto) 1.0 /HPF (0-13.0) 11/22/20 05:00 Hyaline Casts 4 /LPF 11/22/20 05:00 Urine Mucus 1+ /HPF 11/22/20 05:00 Urine Eosinophils None seen (None Seen) 11/24/20 17:55 Urine Creatinine 158.2 mg/dL (0.1-20.0) H 11/22/20 00:11 Urine Sodium 39 mmol/L 11/22/20 00:11 Fraction Sodium Excret 0.3 11/22/20 00:11 Urine Opiates Screen Presumptive negative 11/22/20 00:11 Urine Methadone Screen Presumptive negative 11/22/20 00:11 Ur Barbiturates Screen Presumptive negative 11/22/20 00:11 Ur Phencyclidine Scrn Presumptive negative 11/22/20 00:11 Ur Amphetamines Screen Presumptive negative 11/22/20 00:11 U Benzodiazepines Scrn Presumptive negative 11/22/20 00:11 Urine Cocaine Screen Presumptive negative 11/22/20 00:11 U Marijuana (THC) Screen Presumptive negative 11/22/20 00:11 Drugs of Abuse Note Disclamer 11/22/20 00:11 Plasma/Serum Alcohol < 0.01 % (0-0.07) 11/21/20 20:50 Proteinase 3 (PR3) Ab <1.0 AI (<1.0) 11/22/20 16:00 Myeloperoxidase Ab <1.0 AI (<1.0) 11/22/20 16:00 Double Strand DNA Ab 1 IU/mL (<=4) 11/22/20 16:00 Complement C3 93 mg/dL () 11/22/20 16:00 Complement C4 25 mg/dL () 11/22/20 16:00 Coronavirus (PCR) Negative (Negative) 11/23/20 09:30 Hepatitis A IgM Ab Non-reactive (NonReactive) 11/22/20 16:00 Hep Bs Antigen Non-reactive (Negative) 11/22/20 16:00 Hep B Core IgM Ab Non-reactive (NonReactive) 11/22/20 16:00 Hepatitis C Antibody Reactive (NonReactive) A 11/22/20 16:00 Paulson/IV: Voiding Method Indwelling Catheter Active Medications - Current Medications Current Medications: Generic Name Dose Route Start Last Admin Trade Name Freq PRN Reason Stop Dose Admin Acetaminophen 650 mg 11/23/20 15:29 12/02/20 14:30 Acetaminophen 325 Mg Tab PO 650 mg Q4H PRN Administration Pain, Mild (1-3) Albuterol 2.5 mg 11/22/20 01:19 Albuterol 2.5 Mg/3 Ml Nebu IH Q4HRT PRN Shortness Of Breath Albuterol/Ipratropium 1 ampul 11/22/20 02:00 12/02/20 13:39 Ipratropium/Albuterol Sulfate 3 Ml Ampul.Neb IH 1 ampul Q6HRT TERESA Administration Lipase/Protease/Amylase 1 each 11/22/20 09:07 Lipase 10,500/Protease 25,000/Amylase 43,750 (Units) Dr Cyr FEEDTUBE PRN PRN For Clogged Feeding Tube Aspirin 81 mg 11/23/20 10:00 12/02/20 10:52 Aspirin 81 Mg Tab Chew PO 81 mg QDAY TERESA Administration Atorvastatin Calcium 40 mg 11/22/20 22:00 12/01/20 21:43 Atorvastatin 40 Mg Tab PO 40 mg QHS TERESA Administration Budesonide 0.5 mg 11/24/20 14:55 12/02/20 08:32 Budesonide 0.5 Mg/2 Ml Nebu IH 0.5 mg Q12HRT TERESA Administration Carvedilol 3.125 mg 11/30/20 10:00 12/02/20 10:52 Carvedilol 3.125 Mg Tab PO 3.125 mg BID TERESA Administration Haloperidol Lactate 5 mg 11/25/20 09:00 11/29/20 20:54 Haloperidol Lactate 5 Mg/1 Ml Inj IV 5 mg Q6H PRN Administration Agitation Heparin Sodium (Porcine) 5,000 unit 11/22/20 06:00 12/02/20 16:04 Heparin 5,000 Unit/1 Ml Vial SUB-Q 5,000 unit Q8HR TERESA Administration Hydralazine HCl 10 mg 11/22/20 01:24 12/02/20 10:54 Hydralazine 20 Mg/1 Ml Inj IV 10 mg Q6H PRN Administration Blood Pressure Hydrophilic Ointment 1 applic 11/22/20 00:38 Lip Therapy Vaseline TP Q2HR PRN Dry Lips Dexmedetomidine HCl 400 mcg/ 104 mls @ 4.228 mls/hr 11/25/20 10:00 12/01/20 04:36 Sodium Chloride IV 0 mcg/kg/hr TITRATE TERESA 0 mls/hr Titration Protocol 0.2 MCG/KG/HR Lansoprazole 30 mg 11/28/20 10:00 12/02/20 12:33 Lansoprazole 30 Mg Solutab FEEDTUBE 30 mg QDAY TERESA Administration Methylprednisolone Sodium Succinate 20 mg 11/29/20 21:00 12/02/20 16:03 Methylprednisolone Sod Succinate 125 Mg/2 Ml Inj IV 20 mg Q8HR TERESA Administration Multi-Ingred Cream/Lotion/Oil/Oint 1 applic 11/22/20 00:38 Mineral Oil/Petrolatum, White Ophth Oint 3.5 Gm OU Q4HR PRN Dry Eye(s) Nitroglycerin 0.4 mg 11/22/20 01:25 Nitroglycerin 0.4 Mg Tab Subl SL Q5M PRN Chest Pain Ondansetron HCl 4 mg 11/22/20 01:19 Ondansetron 4 Mg/2 Ml Inj IV Q8H PRN Nausea And Vomiting Quetiapine Fumarate 25 mg 11/27/20 12:00 12/02/20 10:52 Quetiapine 25 Mg Tab PO 25 mg BID TERESA Administration Senna/Docusate Sodium 1 tab 11/22/20 10:00 12/02/20 10:52 Sennosides/Docusate Sodium 8.6/50 Mg Tab FEEDTUBE 1 tab BID TERESA Administration Simple Syrup 15 ml 11/22/20 09:07 Simple Syrup 15 Ml FEEDTUBE PRN PRN Hypoglycemia Simple Syrup 30 ml 11/22/20 09:07 Simple Syrup 15 Ml FEEDTUBE PRN PRN Hypoglycemia Sodium Bicarbonate 325 mg 11/22/20 09:07 Sodium Bicarbonate 325 Mg Tab FEEDTUBE PRN PRN For Clogged Feeding Tube Sodium Chloride 10 ml 11/22/20 10:00 12/02/20 12:33 Sodium Chloride 0.9% 10 Ml Flush Syringe IV 10 ml BID TERESA Administration Sodium Chloride 10 ml 11/22/20 01:19 Sodium Chloride 0.9% 10 Ml Flush Syringe IV PRN PRN LINE FLUSH Tamsulosin HCl 0.4 mg 11/22/20 10:00 12/02/20 10:54 Tamsulosin 0.4 Mg Cap PO 0.4 mg DAILY TERESA Administration Nutrition/Malnutrition Assess - Dietary Evaluation Nutrition/Malnutrition Findings: Nutrition Notes Start: 11/22/20 08:53 Freq: Status: Active Protocol: Document 12/01/20 11:48 (Rec: 12/01/20 11:52 [id number]) Nutrition Notes Initial or Follow up Reassessment Current Diagnosis Acute Kidney Injury,COPD, Coronary Artery Disease, Diabetes,Hypertension,Heart Failure,Respiratory Failure, Hyperlipidemia Other Pertinent Diagnosis AMS Current Diet [facility] soft Labs/Tests BUN 52 Cr 1.4 Pertinent Medications Solu medrol Height 5 ft 3 in Weight 80.6 kg [place] Body Weight (kg) 56.36 BMI 31.4 Weight Status Obese Subjective/Other Information FU for diet advancement. RN states pt ate 25% of breakfast and 100% of ONS. Percent of energy/protein needs met: 69%/64% Burn Absent Trauma Absent Current % PO Poor (25-49%) Minimum of two criteria No physical signs of malnutrition #1 Nutrition Diagnosis Inadequate oral intake As Evidenced by Signs and Symptoms pt eating 25% of meals Diagnosis Progress(for reassessment Improved documentation) Is patient on ventilator? No Is Patient Ambulatory and/or Out of Bed No REE-([facility]-confined to bed) 1664.640 Kcal/Kg value to use for calculation 17 Approximate Energy Requirements Using 1370 kcal/Kg Calculation Used for Recommendations Kcal/kg Additional Notes protein needs: 69-82g (1-1.2g/ kg AdjBW: 69kg) fluid needs: 1 ml/kcal or per MD order Nutrition Intervention Change Diet Order: Continue Goal #1 Meet at least 75% of energy and protein needs via PO and ONS Anticipated Discharge Needs: mech soft, consistent CHO Follow-Up By: 12/03/20 Additional Comments FU for intakes and ONS tolerance
[2020-12-03] MEDS: IPRATROPIUM/ALBUTEROL SULFATE 3 ML AMPUL.NEB IH SCH ×4 (02:39→20:27)
[2020-12-03] MEDS: methylPREDNISolone Sod Succinate 125 MG/2 ML INJ IV SCH ×3 (07:26→22:50)
[2020-12-03] MEDS: HEPARIN 5,000 UNIT/1 ML VIAL SUB-Q SCH ×3 (07:26→22:49)
[2020-12-03] MEDS: BUDESONIDE 0.5 MG/2 ML NEBU IH SCH ×2 (08:01→20:27)
[2020-12-03] MEDS: LANSOPRAZOLE 30 MG SOLUTAB FEEDTUBE SCH (09:35)
[2020-12-03] MEDS: QUEtiapine 25 MG TAB PO SCH ×3 (09:36→23:19)
[2020-12-03] MEDS: TAMSULOSIN 0.4 MG CAP PO SCH (09:36)
[2020-12-03] MEDS: carvediloL 3.125 MG TAB PO SCH ×2 (09:36→20:07)
[2020-12-03] MEDS: SENNOSIDES/DOCUSATE SODIUM 8.6/50 MG TAB FEEDTUBE SCH ×3 (09:36→23:19)
[2020-12-03] MEDS: ASPIRIN 81 MG TAB CHEW PO SCH (09:36)
--- NOTE | 2020-12-03 09:46 | Progress Note ---
Assessment and Plan Impression * Acute kidney injury * Severe hyperkalemia * Respiratory failure * Coronary artery disease * Hypertension * COPD * Bladder cancer * Hepatitis C Recommendations * Hyperkalemia has been corrected with aggressive medical management. * Renal function is stable with creatinine 1.6->1.4->1.2->1.2, Patient is also currently nonoliguric with >1L urine output * Avoid diuretics as able * BP and HR high, will increase carvedilol dosing to 12.5mg BID * His urine shows 1+ dipstick protein and large blood. Fractional excretion of sodium is 0.4%. He most likely has a prerenal component. However given his microhematuria need to rule out vasculitis. Vasculitis work-up as ordered- complements WNL, ANCA/INGA negative, HCV ab is positive * Renal ultrasound shows atrophic left kidney. No obstruction. * Monitor fluid status and electrolytes closely * Avoid nephrotoxins Subjective Date of service: 12/03/20 Principal diagnosis: Acute respiratory failure Interval history: Resting this AM, on HFNC with FiO2 35%, 25L Objective - Exam Narrative Exam: Constitutional: no acute distress Head: NC/AT Neck: supple Lungs: clear to auscultation, on HFNC CV: RRR, no M/R/G Abdomen: soft, non-tender, bowel sounds present Back: nontender Extremities: no edema, pulses WNL Skin: intact Neuro: no focal deficits, drowsy - Vital Signs Vital signs: Vital Signs - 12hr 12/02/20 12/02/20 12/02/20 21:46 22:00 22:16 Temperature Pulse Rate 107 H 105 H 107 H Pulse Rate [ Anterior Bilateral Throughout] Pulse Rate [ From Monitor] Respiratory 11 L 15 32 H Rate Respiratory Rate [Anterior Bilateral Throughout] Blood Pressure 151/77 176/90 176/90 O2 Sat by Pulse 94 92 Oximetry 12/02/20 12/02/20 12/02/20 22:30 22:46 23:00 Temperature Pulse Rate 105 H 112 H 103 H Pulse Rate [ Anterior Bilateral Throughout] Pulse Rate [ From Monitor] Respiratory 17 17 34 H Rate Respiratory Rate [Anterior Bilateral Throughout] Blood Pressure 176/90 176/90 169/85 O2 Sat by Pulse 95 Oximetry 12/02/20 12/02/20 12/02/20 23:20 23:30 23:39 Temperature 98.5 F Pulse Rate 115 H 111 H Pulse Rate [ Anterior Bilateral Throughout] Pulse Rate [ From Monitor] Respiratory 30 H 33 H Rate Respiratory Rate [Anterior Bilateral Throughout] Blood Pressure 169/85 169/85 O2 Sat by Pulse 97 Oximetry 12/02/20 12/03/20 12/03/20 23:46 00:00 00:16 Temperature Pulse Rate 106 H 105 H 109 H Pulse Rate [ Anterior Bilateral Throughout] Pulse Rate [ 104 H From Monitor] Respiratory 24 39 H 24 Rate Respiratory Rate [Anterior Bilateral Throughout] Blood Pressure 169/85 169/85 O2 Sat by Pulse 96 93 94 Oximetry 12/03/20 12/03/20 12/03/20 00:30 00:46 01:00 Temperature Pulse Rate 111 H 107 H 104 H Pulse Rate [ Anterior Bilateral Throughout] Pulse Rate [ From Monitor] Respiratory 41 H 33 H 43 H Rate Respiratory Rate [Anterior Bilateral Throughout] Blood Pressure 169/85 169/85 150/83 O2 Sat by Pulse 92 87 95 Oximetry 12/03/20 12/03/20 12/03/20 01:16 01:30 01:46 Temperature Pulse Rate 103 H 108 H 105 H Pulse Rate [ Anterior Bilateral Throughout] Pulse Rate [ From Monitor] Respiratory 24 46 H 33 H Rate Respiratory Rate [Anterior Bilateral Throughout] Blood Pressure 150/83 150/83 150/83 O2 Sat by Pulse 96 96 96 Oximetry 12/03/20 12/03/20 12/03/20 02:00 02:16 02:30 Temperature Pulse Rate 107 H 107 H 107 H Pulse Rate [ Anterior Bilateral Throughout] Pulse Rate [ From Monitor] Respiratory 46 H 32 H 41 H Rate Respiratory Rate [Anterior Bilateral Throughout] Blood Pressure 151/81 151/81 150/83 O2 Sat by Pulse 95 93 94 Oximetry 12/03/20 12/03/20 12/03/20 02:43 02:44 02:45 Temperature Pulse Rate 101 H Pulse Rate [ 103 H Anterior Bilateral Throughout] Pulse Rate [ From Monitor] Respiratory 16 Rate Respiratory 16 Rate [Anterior Bilateral Throughout] Blood Pressure O2 Sat by Pulse 94 94 Oximetry 12/03/20 12/03/20 12/03/20 02:46 03:00 03:16 Temperature Pulse Rate 106 H 106 H 105 H Pulse Rate [ Anterior Bilateral Throughout] Pulse Rate [ From Monitor] Respiratory 40 H 43 H 36 H Rate Respiratory Rate [Anterior Bilateral Throughout] Blood Pressure 150/83 156/81 156/81 O2 Sat by Pulse 95 93 90 Oximetry 12/03/20 12/03/20 12/03/20 03:30 03:44 03:46 Temperature 97.9 F Pulse Rate 103 H 103 H Pulse Rate [ Anterior Bilateral Throughout] Pulse Rate [ From Monitor] Respiratory 34 H 41 H Rate Respiratory Rate [Anterior Bilateral Throughout] Blood Pressure 156/81 156/81 O2 Sat by Pulse 93 94 Oximetry 12/03/20 12/03/20 12/03/20 04:00 04:16 04:30 Temperature Pulse Rate 102 H 104 H 103 H Pulse Rate [ Anterior Bilateral Throughout] Pulse Rate [ 103 H From Monitor] Respiratory 45 H 44 H 44 H Rate Respiratory Rate [Anterior Bilateral Throughout] Blood Pressure 166/77 166/77 166/77 O2 Sat by Pulse 94 95 96 Oximetry 12/03/20 12/03/20 12/03/20 04:46 05:00 05:16 Temperature Pulse Rate 105 H 103 H 109 H Pulse Rate [ Anterior Bilateral Throughout] Pulse Rate [ From Monitor] Respiratory 24 44 H 39 H Rate Respiratory Rate [Anterior Bilateral Throughout] Blood Pressure 166/77 177/84 177/84 O2 Sat by Pulse 92 93 87 Oximetry 12/03/20 12/03/20 12/03/20 05:30 05:46 06:00 Temperature Pulse Rate 109 H 114 H 113 H Pulse Rate [ Anterior Bilateral Throughout] Pulse Rate [ From Monitor] Respiratory 49 H 42 H 44 H Rate Respiratory Rate [Anterior Bilateral Throughout] Blood Pressure 177/84 177/84 176/83 O2 Sat by Pulse 89 87 89 Oximetry 12/03/20 12/03/20 12/03/20 06:16 06:30 06:46 Temperature Pulse Rate 112 H 113 H 116 H Pulse Rate [ Anterior Bilateral Throughout] Pulse Rate [ From Monitor] Respiratory 53 H 52 H 50 H Rate Respiratory Rate [Anterior Bilateral Throughout] Blood Pressure 176/83 176/83 176/83 O2 Sat by Pulse 92 89 83 L Oximetry 12/03/20 12/03/20 12/03/20 07:00 07:16 07:30 Temperature Pulse Rate 115 H 123 H 121 H Pulse Rate [ Anterior Bilateral Throughout] Pulse Rate [ From Monitor] Respiratory 51 H 49 H 57 H Rate Respiratory Rate [Anterior Bilateral Throughout] Blood Pressure 176/87 176/87 176/87 O2 Sat by Pulse 87 88 89 Oximetry 0712/03/20 12/03/20 07:46 08:00 08:16 Temperature Pulse Rate 120 H 119 H 119 H Pulse Rate [ 115 H Anterior Bilateral Throughout] Pulse Rate [ 119 H From Monitor] Respiratory 47 H 49 H 50 H Rate Respiratory 28 H Rate [Anterior Bilateral Throughout] Blood Pressure 176/87 176/87 194/92 O2 Sat by Pulse 90 89 92 Oximetry 12/03/20 12/03/20 12/03/20 08:30 08:46 09:36 Temperature Pulse Rate 118 H 118 H 115 H Pulse Rate [ Anterior Bilateral Throughout] Pulse Rate [ From Monitor] Respiratory 20 45 H Rate Respiratory Rate [Anterior Bilateral Throughout] Blood Pressure 194/92 194/92 O2 Sat by Pulse 85 87 Oximetry - Lab 11/28/20 09:21 12/03/20 05:40 Most recent lab results ABG pH 7.281 (7.320-7.450) L 11/24/20 01:48 ABG O2 Saturation 96.9 (0-100) 11/24/20 01:48 Calcium 9.0 mg/dL (8.4-10.2) 12/03/20 05:40 Phosphorus 2.20 mg/dL (2.5-4.5) L 11/27/20 08:03 Magnesium 2.10 mg/dL (1.7-2.3) 11/27/20 08:03 Urine Creatinine 158.2 mg/dL (0.1-20.0) H 11/22/20 00:11 Urine Sodium 39 mmol/L 11/22/20 00:11 Medications & Allergies - Medications Allergies/Adverse Reactions: Allergies No Known Allergies Allergy (Verified 11/11/18 08:08) Home Medications: Home Medications Medication Instructions Recorded Confirmed Last Taken Type Pantoprazole [Protonix TAB] 40 mg PO QDAY #30 tablet 04/11/19 11/22/20 Unknown Rx AtorvaSTATin 20 mg PO QHS 06/13/19 11/22/20 06/12/19 21:00 History Tamsulosin 0.4 mg PO DAILY 06/13/19 11/22/20 06/12/19 21:00 History carvediloL [Coreg] 3.125 mg PO BID 06/13/19 11/22/20 06/11/19 21:00 History Gabapentin 300 mg PO BID 11/22/20 11/22/20 Unknown History Active Medications: Generic Name Dose Route Start Last Admin Trade Name Freq PRN Reason Stop Dose Admin Acetaminophen 650 mg 11/23/20 15:29 12/02/20 14:30 Acetaminophen 325 Mg Tab PO 650 mg Q4H PRN Administration Pain, Mild (1-3) Albuterol 2.5 mg 11/22/20 01:19 Albuterol 2.5 Mg/3 Ml Nebu IH Q4HRT PRN Shortness Of Breath Albuterol/Ipratropium 1 ampul 11/22/20 02:00 12/03/20 08:01 Ipratropium/Albuterol Sulfate 3 Ml Ampul.Neb IH 1 ampul Q6HRT TERESA Administration Lipase/Protease/Amylase 1 each 11/22/20 09:07 Lipase 10,500/Protease 25,000/Amylase 43,750 (Units) Dr Cyr FEEDTUBE PRN PRN For Clogged Feeding Tube Aspirin 81 mg 11/23/20 10:00 12/03/20 09:36 Aspirin 81 Mg Tab Chew PO 81 mg QDAY TERESA Administration Atorvastatin Calcium 40 mg 11/22/20 22:00 12/02/20 21:57 Atorvastatin 40 Mg Tab PO 40 mg QHS TERESA Administration Budesonide 0.5 mg 11/24/20 14:55 12/03/20 08:01 Budesonide 0.5 Mg/2 Ml Nebu IH 0.5 mg Q12HRT TERESA Administration Carvedilol 3.125 mg 11/30/20 10:00 12/03/20 09:36 Carvedilol 3.125 Mg Tab PO 3.125 mg BID TERESA Administration Haloperidol Lactate 5 mg 11/25/20 09:00 11/29/20 20:54 Haloperidol Lactate 5 Mg/1 Ml Inj IV 5 mg Q6H PRN Administration Agitation Heparin Sodium (Porcine) 5,000 unit 11/22/20 06:00 12/03/20 07:26 Heparin 5,000 Unit/1 Ml Vial SUB-Q 5,000 unit Q8HR TERESA Administration Hydralazine HCl 10 mg 11/22/20 01:24 12/02/20 10:54 Hydralazine 20 Mg/1 Ml Inj IV 10 mg Q6H PRN Administration Blood Pressure Hydrophilic Ointment 1 applic 11/22/20 00:38 Lip Therapy Vaseline TP Q2HR PRN Dry Lips Dexmedetomidine HCl 400 mcg/ 104 mls @ 4.228 mls/hr 11/25/20 10:00 12/01/20 04:36 Sodium Chloride IV 0 mcg/kg/hr TITRATE TERESA 0 mls/hr Titration Protocol 0.2 MCG/KG/HR Lansoprazole 30 mg 11/28/20 10:00 12/03/20 09:35 Lansoprazole 30 Mg Solutab FEEDTUBE 30 mg QDAY TERESA Administration Methylprednisolone Sodium Succinate 20 mg 11/29/20 21:00 12/03/20 07:26 Methylprednisolone Sod Succinate 125 Mg/2 Ml Inj IV 20 mg Q8HR TERESA Administration Multi-Ingred Cream/Lotion/Oil/Oint 1 applic 11/22/20 00:38 Mineral Oil/Petrolatum, White Ophth Oint 3.5 Gm OU Q4HR PRN Dry Eye(s) Nitroglycerin 0.4 mg 11/22/20 01:25 Nitroglycerin 0.4 Mg Tab Subl SL Q5M PRN Chest Pain Ondansetron HCl 4 mg 11/22/20 01:19 Ondansetron 4 Mg/2 Ml Inj IV Q8H PRN Nausea And Vomiting Quetiapine Fumarate 25 mg 11/27/20 12:00 12/03/20 09:36 Quetiapine 25 Mg Tab PO 25 mg BID TERESA Administration Senna/Docusate Sodium 1 tab 11/22/20 10:00 12/03/20 09:36 Sennosides/Docusate Sodium 8.6/50 Mg Tab FEEDTUBE 1 tab BID TERESA Administration Simple Syrup 15 ml 11/22/20 09:07 Simple Syrup 15 Ml FEEDTUBE PRN PRN Hypoglycemia Simple Syrup 30 ml 11/22/20 09:07 Simple Syrup 15 Ml FEEDTUBE PRN PRN Hypoglycemia Sodium Bicarbonate 325 mg 11/22/20 09:07 Sodium Bicarbonate 325 Mg Tab FEEDTUBE PRN PRN For Clogged Feeding Tube Sodium Chloride 10 ml 11/22/20 10:00 12/03/20 09:36 Sodium Chloride 0.9% 10 Ml Flush Syringe IV 10 ml BID TERESA Administration Sodium Chloride 10 ml 11/22/20 01:19 Sodium Chloride 0.9% 10 Ml Flush Syringe IV PRN PRN LINE FLUSH Tamsulosin HCl 0.4 mg 11/22/20 10:00 12/03/20 09:36 Tamsulosin 0.4 Mg Cap PO 0.4 mg DAILY TERESA Administration
[2020-12-03] MEDS ORDERED: carvediloL 3.125 MG TAB PO SCH (11:00)
--- NOTE | 2020-12-03 13:22 | Progress Note ---
Assessment and Plan 85 y/o [place] male admitted with acute hypoxic respiratory failure. 12/03/20: Follow up with CM in regards to LTACH. Continue IV steroids. Wean FiO2 as tolerated. PT/OT if not already evaluated. Patient stable enough to transfer to floor. 12/02/20: CM still waiting to hear back from LTACH in regards to auth. Continue to wean FiO2 as tolerated for sats >88%. Continue IV steroids. 12/01/20: Wean HFNC for sats >88%. Spoke with CM about checking on LTACH but patient may be able to be weaned further now while in house. Will speak with RT about this. If placed on salter, may need to consider transfer to medical/surgical floor with remote tele. 11/28/20: Continue to wean HFNC. Agree with holding Precedex, can increase s eroquel if needed to help with mood. Hopeful that over the weekend will be down to nasal cannula and can transfer to the floor. CM working on LTACH evaluation. Patient is stable for transfer, if and when accepted. 11/27/20: Will transfer to step down today. Agree with bedside swallow eval now that patient is more awake. Will try bID seroquel to help with mood and agitation. Hopeful Cr has stablized. Continue steroids at 40q8. Consider LTACH evaluation 11/26/20: 11/25/20: Continue bipap for right now. Added precedex and stopped ativan as this may be worsening agitation. Ok with haldol use. Continue daily diuretics to keep patient net negative. Continue ICU monitoring for now. Renal function is better. Guarded prognosis. 11/23/20: Wean sedation to off. If patient can tolerate being off sedation, will attempt PSV trial, otherwise, will likely have to just stop sedation and e xtubate, will have bipap ready for as needed purposes. Needs chemistry to assess renal function. Out put was good. 1. Repeat ABG later this afternoon and wean FIO2 according (>88%) 2. Stop sedation, need to assess mental state 3. Follow up renal function and urine output. 4. Guarded prognosis, this is likely acute on chronic respiratory failure. cct 31 minutes. Subjective Date of service: 12/03/20 Principal diagnosis: Acute respiratory failure Interval history: no acute events. Still on HFNC. Sats in the low 90's. Objective Vital Signs - 12hr 12/03/20 12/03/20 12/03/20 01:30 01:46 02:00 Temperature Pulse Rate 108 H 105 H 107 H Pulse Rate [ Anterior Bilateral Throughout] Pulse Rate [ From Monitor] Respiratory 46 H 33 H 46 H Rate Respiratory Rate [Anterior Bilateral Throughout] Blood Pressure 150/83 150/83 151/81 O2 Sat by Pulse 96 96 95 Oximetry 12/03/20 12/03/20 12/03/20 02:16 02:30 02:43 Temperature Pulse Rate 107 H 107 H Pulse Rate [ 103 H Anterior Bilateral Throughout] Pulse Rate [ From Monitor] Respiratory 32 H 41 H Rate Respiratory 16 Rate [Anterior Bilateral Throughout] Blood Pressure 151/81 150/83 O2 Sat by Pulse 93 94 Oximetry 12/03/20 12/03/20 12/03/20 02:44 02:45 02:46 Temperature Pulse Rate 101 H 106 H Pulse Rate [ Anterior Bilateral Throughout] Pulse Rate [ From Monitor] Respiratory 16 40 H Rate Respiratory Rate [Anterior Bilateral Throughout] Blood Pressure 150/83 O2 Sat by Pulse 94 94 95 Oximetry 12/03/20 12/03/20 12/03/20 03:00 03:16 03:30 Temperature Pulse Rate 106 H 105 H 103 H Pulse Rate [ Anterior Bilateral Throughout] Pulse Rate [ From Monitor] Respiratory 43 H 36 H 34 H Rate Respiratory Rate [Anterior Bilateral Throughout] Blood Pressure 156/81 156/81 156/81 O2 Sat by Pulse 93 90 93 Oximetry 12/03/20 12/03/20 12/03/20 03:44 03:46 04:00 Temperature 97.9 F Pulse Rate 103 H 102 H Pulse Rate [ Anterior Bilateral Throughout] Pulse Rate [ 103 H From Monitor] Respiratory 41 H 45 H Rate Respiratory Rate [Anterior Bilateral Throughout] Blood Pressure 156/81 166/77 O2 Sat by Pulse 94 94 Oximetry 12/03/20 12/03/20 12/03/20 04:16 04:30 04:46 Temperature Pulse Rate 104 H 103 H 105 H Pulse Rate [ Anterior Bilateral Throughout] Pulse Rate [ From Monitor] Respiratory 44 H 44 H 24 Rate Respiratory Rate [Anterior Bilateral Throughout] Blood Pressure 166/77 166/77 166/77 O2 Sat by Pulse 95 96 92 Oximetry 12/03/20 12/03/20 12/03/20 05:00 05:16 05:30 Temperature Pulse Rate 103 H 109 H 109 H Pulse Rate [ Anterior Bilateral Throughout] Pulse Rate [ From Monitor] Respiratory 44 H 39 H 49 H Rate Respiratory Rate [Anterior Bilateral Throughout] Blood Pressure 177/84 177/84 177/84 O2 Sat by Pulse 93 87 89 Oximetry 12/03/20 12/03/20 12/03/20 05:46 06:00 06:16 Temperature Pulse Rate 114 H 113 H 112 H Pulse Rate [ Anterior Bilateral Throughout] Pulse Rate [ From Monitor] Respiratory 42 H 44 H 53 H Rate Respiratory Rate [Anterior Bilateral Throughout] Blood Pressure 177/84 176/83 176/83 O2 Sat by Pulse 87 89 92 Oximetry 12/03/20 12/03/20 12/03/20 06:30 06:46 07:00 Temperature Pulse Rate 113 H 116 H 115 H Pulse Rate [ Anterior Bilateral Throughout] Pulse Rate [ From Monitor] Respiratory 52 H 50 H 51 H Rate Respiratory Rate [Anterior Bilateral Throughout] Blood Pressure 176/83 176/83 176/87 O2 Sat by Pulse 89 83 L 87 Oximetry 12/03/20 12/03/20 12/03/20 07:16 07:30 07:46 Temperature Pulse Rate 123 H 121 H 120 H Pulse Rate [ Anterior Bilateral Throughout] Pulse Rate [ From Monitor] Respiratory 49 H 57 H 47 H Rate Respiratory Rate [Anterior Bilateral Throughout] Blood Pressure 176/87 176/87 176/87 O2 Sat by Pulse 88 89 90 Oximetry 12/03/20 12/03/20 12/03/20 08:00 08:16 08:30 Temperature Pulse Rate 119 H 119 H 118 H Pulse Rate [ 115 H Anterior Bilateral Throughout] Pulse Rate [ 119 H From Monitor] Respiratory 49 H 50 H 20 Rate Respiratory 28 H Rate [Anterior Bilateral Throughout] Blood Pressure 176/87 194/92 194/92 O2 Sat by Pulse 89 92 85 Oximetry 12/03/20 12/03/20 12/03/20 08:46 09:00 09:16 Temperature Pulse Rate 118 H 120 H 118 H Pulse Rate [ Anterior Bilateral Throughout] Pulse Rate [ From Monitor] Respiratory 45 H 55 H 47 H Rate Respiratory Rate [Anterior Bilateral Throughout] Blood Pressure 194/92 189/98 189/98 O2 Sat by Pulse 87 Oximetry 12/03/20 12/03/20 12/03/20 09:30 09:36 09:46 Temperature Pulse Rate 116 H 115 H 122 H Pulse Rate [ Anterior Bilateral Throughout] Pulse Rate [ From Monitor] Respiratory 50 H 30 H Rate Respiratory Rate [Anterior Bilateral Throughout] Blood Pressure 189/98 189/98 O2 Sat by Pulse 89 83 L Oximetry 12/03/20 12/03/20 12/03/20 10:00 10:16 10:30 Temperature Pulse Rate 121 H 116 H 112 H Pulse Rate [ Anterior Bilateral Throughout] Pulse Rate [ From Monitor] Respiratory 41 H 54 H 48 H Rate Respiratory Rate [Anterior Bilateral Throughout] Blood Pressure 203/98 203/98 203/98 O2 Sat by Pulse 88 91 92 Oximetry 12/03/20 12/03/20 12/03/20 10:46 11:00 11:16 Temperature Pulse Rate 112 H 112 H 107 H Pulse Rate [ Anterior Bilateral Throughout] Pulse Rate [ From Monitor] Respiratory 51 H 41 H 31 H Rate Respiratory Rate [Anterior Bilateral Throughout] Blood Pressure 203/98 203/98 203/98 O2 Sat by Pulse 93 93 95 Oximetry 12/03/20 12/03/20 12/03/20 11:30 11:46 12:00 Temperature Pulse Rate 105 H 104 H 102 H Pulse Rate [ Anterior Bilateral Throughout] Pulse Rate [ 102 H From Monitor] Respiratory 37 H 43 H 27 H Rate Respiratory Rate [Anterior Bilateral Throughout] Blood Pressure 203/98 203/98 126/65 O2 Sat by Pulse 95 96 95 Oximetry 12/03/20 12/03/20 12:16 12:30 Temperature Pulse Rate 102 H 103 H Pulse Rate [ Anterior Bilateral Throughout] Pulse Rate [ From Monitor] Respiratory 43 H 44 H Rate Respiratory Rate [Anterior Bilateral Throughout] Blood Pressure 126/65 126/65 O2 Sat by Pulse 96 96 Oximetry Constitutional: no acute distress, alert Eyes: non-icteric ENT: oropharynx moist Neck: supple, other (large in circumference) Effort: normal Ascultation: Bilateral: clear, diminished breath sounds, wheezes Percussion: Bilateral: not dull Cardiovascular: other (tachy, no mrg) Gastrointestinal: normoactive bowel sounds, soft, non-tender, non-distended Extremities: no cyanosis, no edema, pink and warm Neurologic: normal mental status, non-focal exam, pupils equal and round Psychiatric: mood appropriate, affect normal CBC and BMP: 11/28/20 09:21 12/03/20 05:40 ABG, PT/INR, D-dimer: ABG ABG pH 7.281 (7.320-7.450) L 11/24/20 01:48 POC ABG pCO2 58.4 mmHg (32.0-48.0) H 11/24/20 01:48 POC ABG pO2 98.1 mmHg (83-108) 11/24/20 01:48 POC ABG HCO3 26.9 11/24/20 01:48 ABG O2 Saturation 96.9 (0-100) 11/24/20 01:48 PT/INR, D-dimer PT 13.5 Sec. (12.2-14.9) 11/21/20 20:50 INR 0.98 (0.87-1.13) 11/21/20 20:50 Abnormal lab findings: Abnormal Labs 11/21/20 11/21/20 11/22/20 20:50 20:50 00:11 WBC RBC 3.48 L Hgb 11.1 L Hct 34.3 L MCV 99 H Lymph % (Auto) 6.8 L Fountain % (Auto) Lymph # (Auto) 0.6 L Fountain # (Auto) Seg Neutrophils % 85.5 H Seg Neuts % (Manual) Nucleated RBC % Seg Neutrophils # Seg Neutrophils # Man Lymphocytes # (Manual) ABG pH POC ABG pCO2 POC ABG pO2 ABG Hemoglobin ABG Sodium ABG Potassium ABG Glucose Carboxyhemoglobin Sodium 130 L Potassium 7.3 H* Chloride 91.1 L Carbon Dioxide BUN 40 H Creatinine 2.1 H Glucose 195 H POC Glucose Lactic Acid Calcium Phosphorus AST 91 H ALT 65 H CK-MB (CK-2) Rel Index 4.1 H Troponin T 0.045 H NT-Pro-B Natriuret Pep 6998 H Serum Total Protein Total Protein Albumin 3.7 L Mlgzk-1-Yqkwpifbu Gamma Globulins PEP Interpretation HDL Cholesterol 60 H Arterial Blood Glucose Arterial Blood Ionized Calcium Urine WBC (Auto) Urine Creatinine 158.2 H Hepatitis C Antibody 11/22/20 11/22/20 11/22/20 00:23 00:40 01:37 WBC 14.1 H RBC 3.53 L Hgb 11.0 L Hct 34.1 L MCV 97 H Lymph % (Auto) 12.3 L Fountain % (Auto) 14.2 H Lymph # (Auto) Fountain # (Auto) 2.0 H Seg Neutrophils % 72.3 H Seg Neuts % (Manual) Nucleated RBC % Seg Neutrophils # 10.2 H Seg Neutrophils # Man Lymphocytes # (Manual) ABG pH POC ABG pCO2 POC ABG pO2 ABG Hemoglobin ABG Sodium ABG Potassium ABG Glucose Carboxyhemoglobin Sodium Potassium 5.1 H D Chloride Carbon Dioxide BUN Creatinine Glucose POC Glucose Lactic Acid 2.10 H* Calcium Phosphorus AST ALT CK-MB (CK-2) Rel Index Troponin T NT-Pro-B Natriuret Pep Serum Total Protein Total Protein Albumin Zshrc-6-Gyaajuolw Gamma Globulins PEP Interpretation HDL Cholesterol Arterial Blood Glucose Arterial Blood Ionized Calcium Urine WBC (Auto) Urine Creatinine Hepatitis C Antibody 11/22/20 11/22/20 11/22/20 01:37 03:20 05:00 WBC RBC Hgb Hct MCV Lymph % (Auto) Fountain % (Auto) Lymph # (Auto) Fountain # (Auto) Seg Neutrophils % Seg Neuts % (Manual) Nucleated RBC % Seg Neutrophils # Seg Neutrophils # Man Lymphocytes # (Manual) ABG pH POC ABG pCO2 58.4 H POC ABG pO2 ABG Hemoglobin 11.1 L ABG Sodium 135.1 L ABG Potassium 5.0 H ABG Glucose Carboxyhemoglobin Sodium Potassium 5.1 H Chloride Carbon Dioxide 31 H BUN 40 H Creatinine 2.0 H Glucose 49 L POC Glucose Lactic Acid Calcium Phosphorus AST ALT CK-MB (CK-2) Rel Index Troponin T NT-Pro-B Natriuret Pep Serum Total Protein Total Protein Albumin Odipt-4-Gwxwjpgut Gamma Globulins PEP Interpretation HDL Cholesterol Arterial Blood Glucose Arterial Blood Ionized Calcium Urine WBC (Auto) 33.0 H Urine Creatinine Hepatitis C Antibody 11/22/20 11/22/20 11/22/20 05:00 05:00 05:00 WBC RBC Hgb Hct MCV Lymph % (Auto) Fountain % (Auto) Lymph # (Auto) Fountain # (Auto) Seg Neutrophils % Seg Neuts % (Manual) Nucleated RBC % Seg Neutrophils # Seg Neutrophils # Man Lymphocytes # (Manual) ABG pH POC ABG pCO2 POC ABG pO2 ABG Hemoglobin ABG Sodium ABG Potassium ABG Glucose Carboxyhemoglobin Sodium 136 L Potassium Chloride 97.8 L Carbon Dioxide BUN 41 H Creatinine 1.8 H 1.8 H Glucose POC Glucose Lactic Acid Calcium 8.2 L Phosphorus AST ALT CK-MB (CK-2) Rel Index Troponin T 0.065 H D NT-Pro-B Natriuret Pep Serum Total Protein Total Protein Albumin Uicge-7-Cmtvegytv Gamma Globulins PEP Interpretation HDL Cholesterol Arterial Blood Glucose Arterial Blood Ionized Calcium Urine WBC (Auto) Urine Creatinine Hepatitis C Antibody 11/22/20 11/22/20 11/22/20 10:20 10:20 15:00 WBC RBC 3.16 L Hgb 10.2 L Hct 29.9 L MCV 95 H Lymph % (Auto) Fountain % (Auto) Lymph # (Auto) Fountain # (Auto) Seg Neutrophils % Seg Neuts % (Manual) Nucleated RBC % Seg Neutrophils # Seg Neutrophils # Man Lymphocytes # (Manual) ABG pH 7.501 H POC ABG pCO2 POC ABG pO2 ABG Hemoglobin 10.5 L ABG Sodium 134.9 L ABG Potassium ABG Glucose 115 H Carboxyhemoglobin 0.4 L Sodium Potassium Chloride Carbon Dioxide BUN Creatinine Glucose POC Glucose Lactic Acid Calcium Phosphorus AST ALT CK-MB (CK-2) Rel Index Troponin T 0.078 H NT-Pro-B Natriuret Pep Serum Total Protein Total Protein Albumin Yvjsp-7-Wlvtrpaet Gamma Globulins PEP Interpretation HDL Cholesterol Arterial Blood Glucose 115 H Arterial Blood Ionized Calcium 4.3 L Urine WBC (Auto) Urine Creatinine Hepatitis C Antibody 11/22/20 11/22/20 11/22/20 16:00 17:45 23:21 WBC RBC Hgb Hct MCV Lymph % (Auto) Fountain % (Auto) Lymph # (Auto) Fountain # (Auto) Seg Neutrophils % Seg Neuts % (Manual) Nucleated RBC % Seg Neutrophils # Seg Neutrophils # Man Lymphocytes # (Manual) ABG pH POC ABG pCO2 POC ABG pO2 ABG Hemoglobin ABG Sodium ABG Potassium ABG Glucose Carboxyhemoglobin Sodium Potassium Chloride Carbon Dioxide BUN Creatinine Glucose POC Glucose 107 H 115 H Lactic Acid Calcium Phosphorus AST ALT CK-MB (CK-2) Rel Index Troponin T NT-Pro-B Natriuret Pep Serum Total Protein Total Protein Albumin Qpsuk-1-Chatorxtq Gamma Globulins PEP Interpretation HDL Cholesterol Arterial Blood Glucose Arterial Blood Ionized Calcium Urine WBC (Auto) Urine Creatinine Hepatitis C Antibody Reactive A 11/23/20 11/23/20 11/23/20 03:03 05:33 10:00 WBC RBC 3.33 L Hgb 10.6 L Hct 32.2 L MCV 97 H Lymph % (Auto) Fountain % (Auto) 15.0 H Lymph # (Auto) Fountain # (Auto) 1.5 H Seg Neutrophils % Seg Neuts % (Manual) Nucleated RBC % Seg Neutrophils # Seg Neutrophils # Man Lymphocytes # (Manual) ABG pH POC ABG pCO2 POC ABG pO2 115.8 H ABG Hemoglobin 10.1 L ABG Sodium 135.8 L ABG Potassium ABG Glucose 98 H Carboxyhemoglobin 0.4 L Sodium Potassium Chloride Carbon Dioxide BUN Creatinine Glucose POC Glucose 106 H Lactic Acid Calcium Phosphorus AST ALT CK-MB (CK-2) Rel Index Troponin T NT-Pro-B Natriuret Pep Serum Total Protein Total Protein Albumin Eqqpt-2-Sfwrdqduo Gamma Globulins PEP Interpretation HDL Cholesterol Arterial Blood Glucose 98 H Arterial Blood Ionized Calcium 4.4 L Urine WBC (Auto) Urine Creatinine Hepatitis C Antibody 11/23/20 11/23/20 11/23/20 10:00 10:00 12:12 WBC RBC Hgb Hct MCV Lymph % (Auto) Fountain % (Auto) Lymph # (Auto) Fountain # (Auto) Seg Neutrophils % Seg Neuts % (Manual) Nucleated RBC % Seg Neutrophils # Seg Neutrophils # Man Lymphocytes # (Manual) ABG pH POC ABG pCO2 POC ABG pO2 ABG Hemoglobin ABG Sodium ABG Potassium ABG Glucose Carboxyhemoglobin Sodium Potassium Chloride Carbon Dioxide BUN 22 H Creatinine Glucose 101 H POC Glucose 119 H Lactic Acid Calcium 7.9 L Phosphorus AST ALT CK-MB (CK-2) Rel Index Troponin T NT-Pro-B Natriuret Pep Serum Total Protein 5.3 L Total Protein 5.5 L Albumin 2.8 L 2.8 L Vdnnc-5-Dulpniwcn 0.4 H Gamma Globulins 0.7 L PEP Interpretation see below H HDL Cholesterol Arterial Blood Glucose Arterial Blood Ionized Calcium Urine WBC (Auto) Urine Creatinine Hepatitis C Antibody 11/23/20 11/23/20 11/24/20 18:21 23:28 01:48 WBC RBC Hgb Hct MCV Lymph % (Auto) Fountain % (Auto) Lymph # (Auto) Fountain # (Auto) Seg Neutrophils % Seg Neuts % (Manual) Nucleated RBC % Seg Neutrophils # Seg Neutrophils # Man Lymphocytes # (Manual) ABG pH 7.281 L POC ABG pCO2 58.4 H POC ABG pO2 ABG Hemoglobin 11.8 L ABG Sodium ABG Potassium ABG Glucose 101 H Carboxyhemoglobin Sodium Potassium Chloride Carbon Dioxide BUN Creatinine Glucose POC Glucose 106 H 108 H Lactic Acid Calcium Phosphorus AST ALT CK-MB (CK-2) Rel Index Troponin T NT-Pro-B Natriuret Pep Serum Total Protein Total Protein Albumin Qnndb-1-Dsnnvekqw Gamma Globulins PEP Interpretation HDL Cholesterol Arterial Blood Glucose 101 H Arterial Blood Ionized Calcium Urine WBC (Auto) Urine Creatinine Hepatitis C Antibody 11/24/20 11/24/20 11/25/20 09:58 09:58 00:29 WBC RBC Hgb Hct MCV Lymph % (Auto) Fountain % (Auto) Lymph # (Auto) Fountain # (Auto) Seg Neutrophils % Seg Neuts % (Manual) Nucleated RBC % Seg Neutrophils # Seg Neutrophils # Man Lymphocytes # (Manual) ABG pH POC ABG pCO2 POC ABG pO2 ABG Hemoglobin ABG Sodium ABG Potassium ABG Glucose Carboxyhemoglobin Sodium 148 H Potassium Chloride Carbon Dioxide 34 H D BUN Creatinine Glucose POC Glucose 111 H Lactic Acid 0.60 L Calcium Phosphorus AST ALT CK-MB (CK-2) Rel Index Troponin T NT-Pro-B Natriuret Pep Serum Total Protein Total Protein Albumin Laffn-6-Tguffiedf Gamma Globulins PEP Interpretation HDL Cholesterol Arterial Blood Glucose Arterial Blood Ionized Calcium Urine WBC (Auto) Urine Creatinine Hepatitis C Antibody 11/25/20 11/25/20 11/25/20 05:48 08:18 08:18 WBC 13.2 H RBC 3.56 L Hgb 10.9 L Hct 34.0 L MCV 96 H Lymph % (Auto) Fountain % (Auto) Lymph # (Auto) Fountain # (Auto) Seg Neutrophils % Seg Neuts % (Manual) 98.0 H Nucleated RBC % 1.0 H Seg Neutrophils # Seg Neutrophils # Man 12.9 H Lymphocytes # (Manual) 0.0 L ABG pH POC ABG pCO2 POC ABG pO2 ABG Hemoglobin ABG Sodium ABG Potassium ABG Glucose Carboxyhemoglobin Sodium 147 H Potassium Chloride Carbon Dioxide 32 H BUN 26 H Creatinine Glucose 151 H POC Glucose 148 H Lactic Acid Calcium Phosphorus AST ALT CK-MB (CK-2) Rel Index Troponin T NT-Pro-B Natriuret Pep Serum Total Protein Total Protein 6.0 L Albumin 3.7 L Cvxfs-0-Uannsyvxu Gamma Globulins PEP Interpretation HDL Cholesterol Arterial Blood Glucose Arterial Blood Ionized Calcium Urine WBC (Auto) Urine Creatinine Hepatitis C Antibody 11/25/20 11/25/20 11/25/20 11:34 18:03 23:15 WBC RBC Hgb Hct MCV Lymph % (Auto) Fountain % (Auto) Lymph # (Auto) Fountain # (Auto) Seg Neutrophils % Seg Neuts % (Manual) Nucleated RBC % Seg Neutrophils # Seg Neutrophils # Man Lymphocytes # (Manual) ABG pH POC ABG pCO2 POC ABG pO2 ABG Hemoglobin ABG Sodium ABG Potassium ABG Glucose Carboxyhemoglobin Sodium Potassium Chloride Carbon Dioxide BUN Creatinine Glucose POC Glucose 144 H 147 H 158 H Lactic Acid Calcium Phosphorus AST ALT CK-MB (CK-2) Rel Index Troponin T NT-Pro-B Natriuret Pep Serum Total Protein Total Protein Albumin Uuooe-1-Cuyazxguv Gamma Globulins PEP Interpretation HDL Cholesterol Arterial Blood Glucose Arterial Blood Ionized Calcium Urine WBC (Auto) Urine Creatinine Hepatitis C Antibody 11/26/20 11/26/20 11/26/20 05:07 06:22 06:22 WBC 12.3 H RBC 3.52 L Hgb 11.1 L Hct 33.6 L MCV 95 H Lymph % (Auto) Fountain % (Auto) Lymph # (Auto) Fountain # (Auto) Seg Neutrophils % Seg Neuts % (Manual) Nucleated RBC % Seg Neutrophils # Seg Neutrophils # Man Lymphocytes # (Manual) ABG pH POC ABG pCO2 POC ABG pO2 ABG Hemoglobin ABG Sodium ABG Potassium ABG Glucose Carboxyhemoglobin Sodium Potassium 3.3 L Chloride 95.8 L Carbon Dioxide 33 H BUN 35 H Creatinine 1.4 H Glucose 185 H POC Glucose 184 H Lactic Acid Calcium Phosphorus AST ALT CK-MB (CK-2) Rel Index Troponin T 0.036 H D NT-Pro-B Natriuret Pep Serum Total Protein Total Protein 6.2 L Albumin 3.1 L Jpkqz-7-Zxuivvlzk Gamma Globulins PEP Interpretation HDL Cholesterol Arterial Blood Glucose Arterial Blood Ionized Calcium Urine WBC (Auto) Urine Creatinine Hepatitis C Antibody 11/26/20 11/26/20 11/26/20 12:52 17:30 23:14 WBC RBC Hgb Hct MCV Lymph % (Auto) Fountain % (Auto) Lymph # (Auto) Fountain # (Auto) Seg Neutrophils % Seg Neuts % (Manual) Nucleated RBC % Seg Neutrophils # Seg Neutrophils # Man Lymphocytes # (Manual) ABG pH POC ABG pCO2 POC ABG pO2 ABG Hemoglobin ABG Sodium ABG Potassium ABG Glucose Carboxyhemoglobin Sodium Potassium Chloride Carbon Dioxide BUN Creatinine Glucose POC Glucose 170 H 133 H 149 H Lactic Acid Calcium Phosphorus AST ALT CK-MB (CK-2) Rel Index Troponin T NT-Pro-B Natriuret Pep Serum Total Protein Total Protein Albumin Cqegb-0-Mejlpxciu Gamma Globulins PEP Interpretation HDL Cholesterol Arterial Blood Glucose Arterial Blood Ionized Calcium Urine WBC (Auto) Urine Creatinine Hepatitis C Antibody 11/27/20 11/27/20 11/27/20 05:35 08:03 12:02 WBC RBC Hgb Hct MCV Lymph % (Auto) Fountain % (Auto) Lymph # (Auto) Fountain # (Auto) Seg Neutrophils % Seg Neuts % (Manual) Nucleated RBC % Seg Neutrophils # Seg Neutrophils # Man Lymphocytes # (Manual) ABG pH POC ABG pCO2 POC ABG pO2 ABG Hemoglobin ABG Sodium ABG Potassium ABG Glucose Carboxyhemoglobin Sodium Potassium Chloride 97.0 L Carbon Dioxide 31 H BUN 41 H Creatinine 1.4 H Glucose 145 H POC Glucose 135 H 139 H Lactic Acid Calcium Phosphorus 2.20 L AST ALT CK-MB (CK-2) Rel Index Troponin T NT-Pro-B Natriuret Pep Serum Total Protein Total Protein Albumin Vibxd-3-Cvxeaonhe Gamma Globulins PEP Interpretation HDL Cholesterol Arterial Blood Glucose Arterial Blood Ionized Calcium Urine WBC (Auto) Urine Creatinine Hepatitis C Antibody 11/27/20 11/28/20 11/28/20 18:41 05:26 06:08 WBC RBC Hgb Hct MCV Lymph % (Auto) Fountain % (Auto) Lymph # (Auto) Fountain # (Auto) Seg Neutrophils % Seg Neuts % (Manual) Nucleated RBC % Seg Neutrophils # Seg Neutrophils # Man Lymphocytes # (Manual) ABG pH POC ABG pCO2 POC ABG pO2 ABG Hemoglobin ABG Sodium ABG Potassium ABG Glucose Carboxyhemoglobin Sodium Potassium Chloride Carbon Dioxide BUN 45 H Creatinine 1.4 H Glucose 135 H POC Glucose 148 H 143 H Lactic Acid Calcium Phosphorus AST ALT CK-MB (CK-2) Rel Index Troponin T NT-Pro-B Natriuret Pep Serum Total Protein Total Protein Albumin Hmova-5-Kyznmivxa Gamma Globulins PEP Interpretation HDL Cholesterol Arterial Blood Glucose Arterial Blood Ionized Calcium Urine WBC (Auto) Urine Creatinine Hepatitis C Antibody 11/28/20 11/28/20 11/28/20 11:46 17:31 21:17 WBC RBC Hgb Hct MCV Lymph % (Auto) Fountain % (Auto) Lymph # (Auto) Fountain # (Auto) Seg Neutrophils % Seg Neuts % (Manual) Nucleated RBC % Seg Neutrophils # Seg Neutrophils # Man Lymphocytes # (Manual) ABG pH POC ABG pCO2 POC ABG pO2 ABG Hemoglobin ABG Sodium ABG Potassium ABG Glucose Carboxyhemoglobin Sodium Potassium Chloride Carbon Dioxide BUN Creatinine Glucose POC Glucose 132 H 156 H 122 H Lactic Acid Calcium Phosphorus AST ALT CK-MB (CK-2) Rel Index Troponin T NT-Pro-B Natriuret Pep Serum Total Protein Total Protein Albumin Rpqul-9-Jjecqassw Gamma Globulins PEP Interpretation HDL Cholesterol Arterial Blood Glucose Arterial Blood Ionized Calcium Urine WBC (Auto) Urine Creatinine Hepatitis C Antibody 11/29/20 11/29/20 11/29/20 00:06 04:43 05:15 WBC RBC Hgb Hct MCV Lymph % (Auto) Fountain % (Auto) Lymph # (Auto) Fountain # (Auto) Seg Neutrophils % Seg Neuts % (Manual) Nucleated RBC % Seg Neutrophils # Seg Neutrophils # Man Lymphocytes # (Manual) ABG pH POC ABG pCO2 POC ABG pO2 ABG Hemoglobin ABG Sodium ABG Potassium ABG Glucose Carboxyhemoglobin Sodium Potassium Chloride 97.7 L Carbon Dioxide BUN 56 H Creatinine 1.6 H Glucose 132 H POC Glucose 114 H 125 H Lactic Acid Calcium Phosphorus AST ALT CK-MB (CK-2) Rel Index Troponin T NT-Pro-B Natriuret Pep Serum Total Protein Total Protein Albumin Yzeek-5-Lwwsdmcny Gamma Globulins PEP Interpretation HDL Cholesterol Arterial Blood Glucose Arterial Blood Ionized Calcium Urine WBC (Auto) Urine Creatinine Hepatitis C Antibody 11/29/20 11/29/20 11/30/20 12:09 18:12 04:47 WBC RBC Hgb Hct MCV Lymph % (Auto) Fountain % (Auto) Lymph # (Auto) Fountain # (Auto) Seg Neutrophils % Seg Neuts % (Manual) Nucleated RBC % Seg Neutrophils # Seg Neutrophils # Man Lymphocytes # (Manual) ABG pH POC ABG pCO2 POC ABG pO2 ABG Hemoglobin ABG Sodium ABG Potassium ABG Glucose Carboxyhemoglobin Sodium Potassium Chloride Carbon Dioxide 31 H BUN 59 H Creatinine 1.6 H Glucose 122 H POC Glucose 142 H 132 H Lactic Acid Calcium Phosphorus AST ALT CK-MB (CK-2) Rel Index Troponin T NT-Pro-B Natriuret Pep Serum Total Protein Total Protein Albumin Vbuxt-8-Wxrnpanhv Gamma Globulins PEP Interpretation HDL Cholesterol Arterial Blood Glucose Arterial Blood Ionized Calcium Urine WBC (Auto) Urine Creatinine Hepatitis C Antibody 11/30/20 11/30/20 11/30/20 05:45 11:47 18:16 WBC RBC Hgb Hct MCV Lymph % (Auto) Fountain % (Auto) Lymph # (Auto) Fountain # (Auto) Seg Neutrophils % Seg Neuts % (Manual) Nucleated RBC % Seg Neutrophils # Seg Neutrophils # Man Lymphocytes # (Manual) ABG pH POC ABG pCO2 POC ABG pO2 ABG Hemoglobin ABG Sodium ABG Potassium ABG Glucose Carboxyhemoglobin Sodium Potassium Chloride Carbon Dioxide BUN Creatinine Glucose POC Glucose 118 H 123 H 126 H Lactic Acid Calcium Phosphorus AST ALT CK-MB (CK-2) Rel Index Troponin T NT-Pro-B Natriuret Pep Serum Total Protein Total Protein Albumin Zrvus-5-Vvbdlipof Gamma Globulins PEP Interpretation HDL Cholesterol Arterial Blood Glucose Arterial Blood Ionized Calcium Urine WBC (Auto) Urine Creatinine Hepatitis C Antibody 12/01/20 12/01/20 12/01/20 00:11 04:57 05:41 WBC RBC Hgb Hct MCV Lymph % (Auto) [place] % (Auto) Lymph # (Auto) [place] # (Auto) Seg Neutrophils % Seg Neuts % (Manual) Nucleated RBC % Seg Neutrophils # Seg Neutrophils # Man Lymphocytes # (Manual) ABG pH POC ABG pCO2 POC ABG pO2 ABG Hemoglobin ABG Sodium ABG Potassium ABG Glucose Carboxyhemoglobin Sodium Potassium Chloride Carbon Dioxide BUN 52 H Creatinine 1.4 H Glucose 121 H POC Glucose 117 H 120 H Lactic Acid Calcium Phosphorus AST ALT CK-MB (CK-2) Rel Index Troponin T NT-Pro-B Natriuret Pep Serum Total Protein Total Protein Albumin Lorff-5-Whluixgdc Gamma Globulins PEP Interpretation HDL Cholesterol Arterial Blood Glucose Arterial Blood Ionized Calcium Urine WBC (Auto) Urine Creatinine Hepatitis C Antibody 12/01/20 12/02/20 12/02/20 23:35 06:02 08:09 WBC RBC Hgb Hct MCV Lymph % (Auto) [place] % (Auto) Lymph # (Auto) [place] # (Auto) Seg Neutrophils % Seg Neuts % (Manual) Nucleated RBC % Seg Neutrophils # Seg Neutrophils # Man Lymphocytes # (Manual) ABG pH POC ABG pCO2 POC ABG pO2 ABG Hemoglobin ABG Sodium ABG Potassium ABG Glucose Carboxyhemoglobin Sodium Potassium Chloride Carbon Dioxide BUN Creatinine Glucose POC Glucose 117 H 108 H 117 H Lactic Acid Calcium Phosphorus AST ALT CK-MB (CK-2) Rel Index Troponin T NT-Pro-B Natriuret Pep Serum Total Protein Total Protein Albumin Ypjyn-2-Wkoenazbn Gamma Globulins PEP Interpretation HDL Cholesterol Arterial Blood Glucose Arterial Blood Ionized Calcium Urine WBC (Auto) Urine Creatinine Hepatitis C Antibody 12/02/20 12/02/20 12/02/20 09:40 11:33 17:34 WBC RBC Hgb Hct MCV Lymph % (Auto) [place] % (Auto) Lymph # (Auto) [place] # (Auto) Seg Neutrophils % Seg Neuts % (Manual) Nucleated RBC % Seg Neutrophils # Seg Neutrophils # Man Lymphocytes # (Manual) ABG pH POC ABG pCO2 POC ABG pO2 ABG Hemoglobin ABG Sodium ABG Potassium ABG Glucose Carboxyhemoglobin Sodium Potassium Chloride 97.6 L Carbon Dioxide 35 H BUN 45 H Creatinine Glucose POC Glucose 109 H 124 H Lactic Acid Calcium Phosphorus AST ALT CK-MB (CK-2) Rel Index Troponin T NT-Pro-B Natriuret Pep Serum Total Protein Total Protein Albumin Dalwx-3-Tbudkdimj Gamma Globulins PEP Interpretation HDL Cholesterol Arterial Blood Glucose Arterial Blood Ionized Calcium Urine WBC (Auto) Urine Creatinine Hepatitis C Antibody 12/03/20 12/03/20 05:40 07:16 WBC RBC Hgb Hct MCV Lymph % (Auto) [place] % (Auto) Lymph # (Auto) [place] # (Auto) Seg Neutrophils % Seg Neuts % (Manual) Nucleated RBC % Seg Neutrophils # Seg Neutrophils # Man Lymphocytes # (Manual) ABG pH POC ABG pCO2 POC ABG pO2 ABG Hemoglobin ABG Sodium ABG Potassium ABG Glucose Carboxyhemoglobin Sodium Potassium Chloride Carbon Dioxide BUN 44 H Creatinine Glucose 117 H POC Glucose 115 H Lactic Acid Calcium Phosphorus AST ALT CK-MB (CK-2) Rel Index Troponin T NT-Pro-B Natriuret Pep Serum Total Protein Total Protein Albumin Fnsdp-3-Glccrzhfz Gamma Globulins PEP Interpretation HDL Cholesterol Arterial Blood Glucose Arterial Blood Ionized Calcium Urine WBC (Auto) Urine Creatinine Hepatitis C Antibody
--- NOTE | 2020-12-03 15:01 | Progress Note ---
Assessment and Plan Assessment and plan: Today patient remains on high flow oxygen 25 L/35% FiO2/96% O2 sats Patient is more alert and awake, awaiting LTAC placement Patient is stable to be transferred out of IMCU to telemetry floor --Acute hypoxic respiratory failure/Requiring intubation 11/21/2020 s/p extubation 11/23/2020, patient is on noninvasive ventilation on high flow nasal cannula oxygen 25 L/35% FiO2/O2 sats 96% Clinically patient is more alert and awake responding appropriately Wean as tolerated --Acute exacerbation of COPD; Home oxygen dependent BiPAP as needed, wean as tolerated Continue nebulizers, tapering dose of IV steroids, supportive care Pulmonary following --Acute kidney injury; vasomotor nephropathy Gentle hydration closely monitor renal function Resolved, normal renal function, avoid nephrotoxins --Severe pulmonary hypertension; Management per pulmonary, continue supportive care --Acute metabolic encephalopathy 11/21 CT head shows no acute intracranial abnormality, sinus disease Continue supportive care --NSTEMI type II Presented with [facility] with elevated troponins cardiology patient had a stress test in 2019 which showed no significant ischemia, Echo; EF 50 to 55% severe pulmonary hypertension moderate mitral stenosis may benefit from HECTOR for evaluation of mitral valve when patient is stable Medical management per cardiology --Acute kidney injury; present on admission/resolved Vasomotor nephropathy Now resolved, normal renal function Avoid nephrotoxins, nephrology following --History of bladder cancer; Indwelling Paulson in place, supportive care Continue Flomax --Urinary tract infection; Completed antibiotics total 5 days --Dyslipidemia; Continue statin and low-cholesterol diet --Hypertension; moderate control We will continue current antihypertensives And as needed hydralazine --Hypernatremia ; resolved Patient was hyponatremia on admission ,probably overcorrection Increase oral intake of water/monitor electrolytes --Severe protein calorie malnutrition ; Hypoalbuminemia ,nutrition supplements Nutrition consult and supportive care --Nutrition; cardiac diet as tolerated --DVT prophylaxis; Subcu heparin, SCDs --GI prophylaxis; Continue Prevacid --Full CODE STATUS; We will closely monitor the patient and adjust the management as needed Consults and recommendations noted and appreciated Plan of care reviewed with the patient's nurse PT OT when he comes off high flow oxygen DC planning per case management; considering LTAC placement The high probability of a clinically significant, sudden or life threatening deterioration of the [resp, cardiac, nephrology, metabolic] system(s) required my full and direct attention, intervention and personal management. The aggr ate critical care time was [33] minutes. This time is in addition to time spent performing reported procedures but includes the following: [x] Data Review and interpretation [x] Patient assessment and monitoring of vital signs [x] Documentation [x] Medication orders and management Brief history and daily hospital course: 85-year-old male patient with past medical history of COPD on home oxygen, GERD, hypertension, asthma, hyperlipidemia, vasopressin, bladder cancer admitted for acute hypoxic respiratory failure, intubated on 11/21/2020 managed appropriately evaluated by pulmonary critical subsequently extubated on 11/23/2020, today patient is on high flow nasal cannula oxygen, pulmonary critical, cardiology and nephrology following the patient 11/23: Patient was extubated, currently on BiPAP Mild distress, wean as tolerated 11/25/2020; patient is on BiPAP Mild distress, noncommunicative 11/26/2020; patient is on intermittent BiPAP Currently on high flow nasal cannula oxygen 11/27/2020; patient is more alert and awake Will get swallow screen, if normal start pured diet Transfer the patient to [facility] 11/28/2020; patient is on high flow oxygen slightly better than yesterday Able to tolerate mechanical soft diet when the family comes and helps him DC planning, considering LTAC placement 11/29 Still on HFNC oxygen 11/30 Still on HFNC oxygen 12/01 on 35 liters O2 714/21; patient remains on high flow nasal cannula oxygen requiring 25 L/FiO2 35%/O2 sats 96 Wean as tolerated, awaiting LTAC placement Patient is hemodynamically and clinically stable to be transferred out of [facility] to cardiac telemetry or medical floor with remote telemetry today. Plan of care reviewed with the patient's nurse History Interval history: Patient seen and examined in [facility] this afternoon Patient's chart and medications reviewed Patient remains on high flow oxygen requiring 25 L Pending LTAC placement Patient is more alert and awake Vital signs reviewed Hospitalist Physical - Constitutional Vitals: Temp Pulse Resp BP Pulse Ox 97.9 F 102 H 25 H 142/77 96 12/03/20 03:44 12/03/20 14:30 12/03/20 14:30 12/03/20 14:30 12/03/20 14:30 General appearance: Present: no acute distress, well-nourished, obese, other (On high flow oxygen) - EENT Eyes: Present: PERRL, EOM intact - Neck Neck: Present: supple, normal ROM - Respiratory Respiratory effort: normal Respiratory: bilateral: diminished, rhonchi, negative: rales, wheezing - Cardiovascular Rhythm: regular Heart Sounds: Present: S1 & S2 - Extremities Extremities: no ischemia, No edema - Abdominal General gastrointestinal: soft, non-tender, non-distended, normal bowel sounds - Integumentary Integumentary: Present: clear, warm - Psychiatric Psychiatric: appropriate mood/affect, cooperative - Neurologic Neurologic: CNII-XII intact, moves all extremities HEART Score - HEART Score Troponin: Troponin T 0.021 ng/mL (0.00-0.029) 11/29/20 04:43 Results - Labs CBC & Chem 7: 11/28/20 09:21 12/03/20 05:40 Labs: Laboratory Last Values WBC 9.8 K/mm3 (4.5-11.0) 11/28/20 09:21 RBC 4.01 M/mm3 (3.65-5.03) 11/28/20 09:21 Hgb 12.3 gm/dl (11.8-15.2) 11/28/20 09:21 Hct 37.6 % (35.5-45.6) 11/28/20 09:21 MCV 94 fl (84-94) 11/28/20 09:21 MCH 31 pg (28-32) 11/28/20 09:21 MCHC 33 % (32-34) 11/28/20 09:21 RDW 15.1 % (13.2-15.2) 11/28/20 09:21 Plt Count 369 K/mm3 (140-440) 11/28/20 09:21 Lymph % (Auto) 16.1 % (13.4-35.0) 11/23/20 10:00 [place] % (Auto) 15.0 % (0.0-7.3) H 11/23/20 10:00 Eos % (Auto) 1.0 % (0.0-4.3) 11/23/20 10:00 Baso % (Auto) 0.5 % (0.0-1.8) 11/23/20 10:00 Lymph # (Auto) 1.6 K/mm3 (1.2-5.4) 11/23/20 10:00 [place] # (Auto) 1.5 K/mm3 (0.0-0.8) H 11/23/20 10:00 Eos # (Auto) 0.1 K/mm3 (0.0-0.4) 11/23/20 10:00 Baso # (Auto) 0.1 K/mm3 (0.0-0.1) 11/23/20 10:00 Add Manual Diff Complete 11/25/20 08:18 Total Counted 100 11/25/20 08:18 Seg Neutrophils % Able Bodied Watchman 11/25/20 08:18 Seg Neuts % (Manual) 98.0 % (40.0-70.0) H 11/25/20 08:18 Monocytes % (Manual) 2.0 % (0.0-7.3) 11/25/20 08:18 Nucleated RBC % 1.0 % (0.0-0.9) H 11/25/20 08:18 Seg Neutrophils # 6.6 K/mm3 (1.8-7.7) 11/23/20 10:00 Seg Neutrophils # Man 12.9 K/mm3 (1.8-7.7) H 11/25/20 08:18 Band Neutrophils # 0.0 K/mm3 11/25/20 08:18 Lymphocytes # (Manual) 0.0 K/mm3 (1.2-5.4) L 11/25/20 08:18 Abs React Lymphs (Man) 0.0 K/mm3 11/25/20 08:18 Monocytes # (Manual) 0.3 K/mm3 (0.0-0.8) 11/25/20 08:18 Eosinophils # (Manual) 0.0 K/mm3 (0.0-0.4) 11/25/20 08:18 Basophils # (Manual) 0.0 K/mm3 (0.0-0.1) 11/25/20 08:18 Metamyelocytes # 0.0 K/mm3 11/25/20 08:18 Myelocytes # 0.0 K/mm3 11/25/20 08:18 Promyelocytes # 43.8 K/mm3 11/25/20 08:18 Blast Cells # 0.0 K/mm3 11/25/20 08:18 WBC Morphology Not Reportable 11/25/20 08:18 Hypersegmented Neuts Not Reportable 11/25/20 08:18 Hyposegmented Neuts Not Reportable 11/25/20 08:18 Hypogranular Neuts Not Reportable 11/25/20 08:18 Smudge Cells Not Reportable 11/25/20 08:18 Toxic Granulation Few 11/25/20 08:18 Toxic Vacuolation Not Reportable 11/25/20 08:18 Dohle Bodies Not Reportable 11/25/20 08:18 Pelger-Huet Anomaly Not Reportable 11/25/20 08:18 Liang Rods Not Reportable 11/25/20 08:18 Platelet Estimate Consistent w auto 11/25/20 08:18 Clumped Platelets Not Reportable 11/25/20 08:18 Plt Clumps, EDTA Not Reportable 11/25/20 08:18 Large Platelets Not Reportable 11/25/20 08:18 Giant Platelets Not Reportable 11/25/20 08:18 Platelet Satelliting Not Reportable 11/25/20 08:18 Plt Morphology Comment Not Reportable 11/25/20 08:18 RBC Morphology Not Reportable 11/25/20 08:18 Dimorphic RBCs Not Reportable 11/25/20 08:18 Polychromasia Not Reportable 11/25/20 08:18 Hypochromasia 1+ 11/25/20 08:18 Poikilocytosis Not Reportable 11/25/20 08:18 Anisocytosis Not Reportable 11/25/20 08:18 Microcytosis Not Reportable 11/25/20 08:18 Macrocytosis Not Reportable 11/25/20 08:18 Spherocytes Not Reportable 11/25/20 08:18 Pappenheimer Bodies Not Reportable 11/25/20 08:18 Sickle Cells Not Reportable 11/25/20 08:18 Target Cells 1+ 11/25/20 08:18 Tear Drop Cells Not Reportable 11/25/20 08:18 Ovalocytes Not Reportable 11/25/20 08:18 Helmet Cells Not Reportable 11/25/20 08:18 [place] Bodies Not Reportable 11/25/20 08:18 [place] Rings Not Reportable 11/25/20 08:18 [place] Cells Not Reportable 11/25/20 08:18 Bite Cells Not Reportable 11/25/20 08:18 Crenated Cell Not Reportable 11/25/20 08:18 Elliptocytes Not Reportable 11/25/20 08:18 Acanthocytes (Spur) Not Reportable 11/25/20 08:18 Rouleaux Not Reportable 11/25/20 08:18 Hemoglobin C Crystals Not Reportable 11/25/20 08:18 Schistocytes Not Reportable 11/25/20 08:18 Malaria parasites Not Reportable 11/25/20 08:18 Fuad Bodies Not Reportable 11/25/20 08:18 Hem Pathologist Commnt No 11/25/20 08:18 PT 13.5 Sec. (12.2-14.9) 11/21/20 20:50 INR 0.98 (0.87-1.13) 11/21/20 20:50 APTT 32.1 Sec. (24.2-36.6) 11/21/20 20:50 ABG pH 7.281 (7.320-7.450) L 11/24/20 01:48 POC ABG pCO2 58.4 mmHg (32.0-48.0) H 11/24/20 01:48 POC ABG pO2 98.1 mmHg (83-108) 11/24/20 01:48 POC ABG HCO3 26.9 11/24/20 01:48 ABG O2 Saturation 96.9 (0-100) 11/24/20 01:48 POC ABG Base Excess -0.7 11/24/20 01:48 ABG Hemoglobin 11.8 (12.0-17.5) L 11/24/20 01:48 ABG Oxyhemoglobin 95.9 (94-98) 11/24/20 01:48 ABG Methemoglobin 0.3 (0.0-1.5) 11/24/20 01:48 ABG Sodium 140.6 mmol/L (136.0-145.0) 11/24/20 01:48 ABG Potassium 3.9 mmol/L (3.40-4.50) 11/24/20 01:48 ABG Chloride 104.0 mmol/L (98-107) 11/24/20 01:48 ABG Glucose 101 mg/dL (65-95) H 11/24/20 01:48 Carboxyhemoglobin 0.7 (0.5-1.5) 11/24/20 01:48 FiO2 % 50.0 11/24/20 01:48 Sodium 138 mmol/L (137-145) 12/03/20 05:40 Potassium 4.5 mmol/L (3.6-5.0) 12/03/20 05:40 Chloride 99.2 mmol/L (98-107) 12/03/20 05:40 Carbon Dioxide 28 mmol/L (22-30) D 12/03/20 05:40 Anion Gap 15 mmol/L 12/03/20 05:40 BUN 44 mg/dL (9-20) H 12/03/20 05:40 Creatinine 1.2 mg/dL (0.8-1.3) 12/03/20 05:40 Estimated GFR 57 ml/min 12/03/20 05:40 BUN/Creatinine Ratio 37 % 12/03/20 05:40 Glucose 117 mg/dL (75-100) H 12/03/20 05:40 POC Glucose 98 mg/dL (70-105) 12/03/20 11:45 Lactic Acid 0.60 mmol/L (0.7-2.0) L 11/24/20 09:58 Calcium 9.0 mg/dL (8.4-10.2) 12/03/20 05:40 Phosphorus 2.20 mg/dL (2.5-4.5) L 11/27/20 08:03 Magnesium 2.10 mg/dL (1.7-2.3) 11/27/20 08:03 Total Bilirubin 0.30 mg/dL (0.1-1.2) 11/26/20 06:22 AST 18 units/L (5-40) 11/26/20 06:22 ALT 22 units/L (7-56) 11/26/20 06:22 Alkaline Phosphatase 55 units/L (35-129) 11/26/20 06:22 Total Creatine Kinase 132 units/L (55-170) 11/22/20 10:20 CK-MB (CK-2) 3.3 ng/mL (0.0-4.0) 11/22/20 10:20 CK-MB (CK-2) Rel Index 2.5 (0-4) 11/22/20 10:20 Troponin T 0.021 ng/mL (0.00-0.029) 11/29/20 04:43 NT-Pro-B Natriuret Pep 6998 pg/mL (0-900) H 11/21/20 20:50 Serum Total Protein 5.3 g/dL (6.1-8.1) L 11/23/20 10:00 Total Protein 6.2 g/dL (6.3-8.2) L 11/26/20 06:22 Albumin 3.1 g/dL (3.9-5) L 11/26/20 06:22 Albumin/Globulin Ratio 1.0 % 11/26/20 06:22 Iqqpn-1-Dusmpsebq 0.4 g/dL (0.2-0.3) H 11/23/20 10:00 Fibjn-0-Rdbxqcctk 0.8 g/dL (0.5-0.9) 11/23/20 10:00 Beta Globulins 0.3 g/dL (0.2-0.5) 11/23/20 10:00 Gamma Globulins 0.7 g/dL (0.8-1.7) L 11/23/20 10:00 Abnorm Protein Band 1 see below 11/23/20 10:00 PEP Interpretation see below H 11/23/20 10:00 Triglycerides 84 mg/dL (2-149) 11/21/20 20:50 Cholesterol 125 mg/dL (50-199) 11/21/20 20:50 LDL Cholesterol Direct 57 mg/dL (50-130) 11/21/20 20:50 HDL Cholesterol 60 mg/dL (40-59) H 11/21/20 20:50 Cholesterol/HDL Ratio 2.08 % 11/21/20 20:50 TSH 1.290 mlU/mL (0.270-4.200) 11/21/20 20:50 Free T4 1.18 ng/dL (0.76-1.46) 11/21/20 20:50 Arterial Blood Glucose 101 mg/dL (65-95) H 11/24/20 01:48 Arterial Blood Ionized Calcium 4.7 mg/dL (4.6-5.3) 11/24/20 01:48 Urine Color Yellow (Yellow) 11/22/20 05:00 Urine Turbidity Slightly-cloudy (Clear) 11/22/20 05:00 Urine pH 5.0 (5.0-7.0) 11/22/20 05:00 Ur Specific [place] 1.016 (1.003-1.030) 11/22/20 05:00 Urine Protein 30 mg/dl mg/dL (Negative) 11/22/20 05:00 Urine Glucose (UA) Neg mg/dL (Negative) 11/22/20 05:00 Urine Ketones Neg mg/dL (Negative) 11/22/20 05:00 Urine Blood Lg (Negative) 11/22/20 05:00 Urine Nitrite Neg (Negative) 11/22/20 05:00 Urine Bilirubin Neg (Negative) 11/22/20 05:00 Urine Urobilinogen < 2.0 mg/dL (<2.0) 11/22/20 05:00 Ur Leukocyte Esterase Tr (Negative) 11/22/20 05:00 Urine WBC (Auto) 33.0 /HPF (0.0-6.0) H 11/22/20 05:00 Urine RBC (Auto) 49.0 /HPF (0.0-6.0) 11/22/20 05:00 U Epithel Cells (Auto) 1.0 /HPF (0-13.0) 11/22/20 05:00 Hyaline Casts 4 /LPF 11/22/20 05:00 Urine Mucus 1+ /HPF 11/22/20 05:00 Urine Eosinophils None seen (None Seen) 11/24/20 17:55 Urine Creatinine 158.2 mg/dL (0.1-20.0) H 11/22/20 00:11 Urine Sodium 39 mmol/L 11/22/20 00:11 Fraction Sodium Excret 0.3 11/22/20 00:11 Urine Opiates Screen Presumptive negative 11/22/20 00:11 Urine Methadone Screen Presumptive negative 11/22/20 00:11 Ur Barbiturates Screen Presumptive negative 11/22/20 00:11 Ur Phencyclidine Scrn Presumptive negative 11/22/20 00:11 Ur Amphetamines Screen Presumptive negative 11/22/20 00:11 U Benzodiazepines Scrn Presumptive negative 11/22/20 00:11 Urine Cocaine Screen Presumptive negative 11/22/20 00:11 U Marijuana (THC) Screen Presumptive negative 11/22/20 00:11 Drugs of Abuse Note Disclamer 11/22/20 00:11 Plasma/Serum Alcohol < 0.01 % (0-0.07) 11/21/20 20:50 Proteinase 3 (PR3) Ab <1.0 AI (<1.0) 11/22/20 16:00 Myeloperoxidase Ab <1.0 AI (<1.0) 11/22/20 16:00 Double Strand DNA Ab 1 IU/mL (<=4) 11/22/20 16:00 Complement C3 93 mg/dL () 11/22/20 16:00 Complement C4 25 mg/dL () 11/22/20 16:00 Coronavirus (PCR) Negative (Negative) 11/23/20 09:30 Hepatitis A IgM Ab Non-reactive (NonReactive) 11/22/20 16:00 Hep Bs Antigen Non-reactive (Negative) 11/22/20 16:00 Hep B Core IgM Ab Non-reactive (NonReactive) 11/22/20 16:00 Hepatitis C Antibody Reactive (NonReactive) A 11/22/20 16:00 Paulson/IV: Voiding Method Indwelling Catheter Active Medications - Current Medications Current Medications: Generic Name Dose Route Start Last Admin Trade Name Freq PRN Reason Stop Dose Admin Acetaminophen 650 mg 11/23/20 15:29 12/02/20 14:30 Acetaminophen 325 Mg Tab PO 650 mg Q4H PRN Administration Pain, Mild (1-3) Albuterol 2.5 mg 11/22/20 01:19 Albuterol 2.5 Mg/3 Ml Nebu IH Q4HRT PRN Shortness Of Breath Albuterol/Ipratropium 1 ampul 11/22/20 02:00 12/03/20 13:45 Ipratropium/Albuterol Sulfate 3 Ml Ampul.Neb IH 1 ampul Q6HRT TERESA Administration Lipase/Protease/Amylase 1 each 11/22/20 09:07 Lipase 10,500/Protease 25,000/Amylase 43,750 (Units) Dr Ger FARIA PRN PRN For Clogged Feeding Tube Aspirin 81 mg 11/23/20 10:00 12/03/20 09:36 Aspirin 81 Mg Tab Chew PO 81 mg QDAY TERESA Administration Atorvastatin Calcium 40 mg 11/22/20 22:00 12/02/20 21:57 Atorvastatin 40 Mg Tab PO 40 mg QHS TERESA Administration Budesonide 0.5 mg 11/24/20 14:55 12/03/20 08:01 Budesonide 0.5 Mg/2 Ml Nebu IH 0.5 mg Q12HRT TERESA Administration Carvedilol 12.5 mg 12/03/20 22:00 Carvedilol 12.5 Mg Tab PO BID TERESA Heparin Sodium (Porcine) 5,000 unit 11/22/20 06:00 12/03/20 14:00 Heparin 5,000 Unit/1 Ml Vial SUB-Q 5,000 unit Q8HR TERESA Administration Hydralazine HCl 10 mg 11/22/20 01:24 12/02/20 10:54 Hydralazine 20 Mg/1 Ml Inj IV 10 mg Q6H PRN Administration Blood Pressure Lansoprazole 30 mg 11/28/20 10:00 12/03/20 09:35 Lansoprazole 30 Mg Solutab FEEDTUBE 30 mg QDAY TERESA Administration Methylprednisolone Sodium Succinate 20 mg 11/29/20 21:00 12/03/20 14:00 Methylprednisolone Sod Succinate 125 Mg/2 Ml Inj IV 20 mg Q8HR TERESA Administration Nitroglycerin 0.4 mg 11/22/20 01:25 Nitroglycerin 0.4 Mg Tab Subl SL Q5M PRN Chest Pain Ondansetron HCl 4 mg 11/22/20 01:19 Ondansetron 4 Mg/2 Ml Inj IV Q8H PRN Nausea And Vomiting Quetiapine Fumarate 25 mg 11/27/20 12:00 12/03/20 09:36 Quetiapine 25 Mg Tab PO 25 mg BID TERESA Administration Senna/Docusate Sodium 1 tab 11/22/20 10:00 12/03/20 09:36 Sennosides/Docusate Sodium 8.6/50 Mg Tab FEEDTUBE 1 tab BID TERESA Administration Simple Syrup 15 ml 11/22/20 09:07 Simple Syrup 15 Ml FEEDTUBE PRN PRN Hypoglycemia Simple Syrup 30 ml 11/22/20 09:07 Simple Syrup 15 Ml FEEDTUBE PRN PRN Hypoglycemia Sodium Bicarbonate 325 mg 11/22/20 09:07 Sodium Bicarbonate 325 Mg Tab FEEDTUBE PRN PRN For Clogged Feeding Tube Sodium Chloride 10 ml 11/22/20 10:00 12/03/20 09:36 Sodium Chloride 0.9% 10 Ml Flush Syringe IV 10 ml BID TERESA Administration Sodium Chloride 10 ml 11/22/20 01:19 Sodium Chloride 0.9% 10 Ml Flush Syringe IV PRN PRN LINE FLUSH Tamsulosin HCl 0.4 mg 11/22/20 10:00 12/03/20 09:36 Tamsulosin 0.4 Mg Cap PO 0.4 mg DAILY TERESA Administration Nutrition/Malnutrition Assess - Dietary Evaluation Nutrition/Malnutrition Findings: Nutrition Notes Start: 11/22/20 08:53 Freq: Status: Active Protocol: Document 12/03/20 12:44 MK (Rec: 12/03/20 12:46 [id number]) Nutrition Notes Initial or Follow up Reassessment Current Diagnosis Acute Kidney Injury,COPD, Coronary Artery Disease, Diabetes,Hypertension,Heart Failure,Respiratory Failure, Hyperlipidemia Other Pertinent Diagnosis AMS Current Diet mech soft Labs/Tests BUN 44 Pertinent Medications Reviewed Height 5 ft 3 in Weight 80.6 kg [place] Body Weight (kg) 56.36 BMI 31.4 Weight Status Obese Subjective/Other Information FU for intakes. Pt not eating much of the meals. He is drinking some soup from home however, it is not enough to meet needs (30kcal per serving ). Pt drinkng small sips of ONS. Percent of energy/protein needs met: Negligible Burn Absent Trauma Absent Current % PO Negligible Minimum of two criteria No physical signs of malnutrition #1 Nutrition Diagnosis Inadequate oral intake As Evidenced by Signs and Symptoms pt taking bites and small sips of food/drink Diagnosis Progress(for reassessment Worsened documentation) Is patient on ventilator? No Is Patient Ambulatory and/or Out of Bed No REE-([facility]-confined to bed) 1664.640 Kcal/Kg value to use for calculation 17 Approximate Energy Requirements Using 1370 kcal/Kg Calculation Used for Recommendations Kcal/kg Additional Notes protein needs: 69-82g (1-1.2g/ kg AdjBW: 69kg) fluid needs: 1 ml/kcal or per MD order Nutrition Intervention Change Diet Order: Continue Add Supplement/Snack (indicate name/kcal Glucerna BID /protein ) Provides kCal: 440 Provides Protein (gm) 20 Goal #1 Meet at least 75% of energy and protein needs via PO and ONS Anticipated Discharge Needs: mech soft, consistent CHO Follow-Up By: 12/05/20 Additional Comments FU for intakes and ONS tolerance
--- NOTE | 2020-12-03 17:36 | Progress Note ---
Assessment and Plan Assessment and plan: --Acute hypoxic respiratory failure/Requiring intubation 11/21/2020 s/p extubation 11/23/2020, patient is on noninvasive ventilation on high flow nasal cannula oxygen 25 L/35% FiO2/O2 sats 96% Clinically patient is more alert and awake responding appropriately Wean as tolerated --Acute exacerbation of COPD; Home oxygen dependent BiPAP as needed, wean as tolerated Continue nebulizers, tapering dose of IV steroids, supportive care Pulmonary following --Acute kidney injury; vasomotor nephropathy Gentle hydration closely monitor renal function Resolved, normal renal function, avoid nephrotoxins --Severe pulmonary hypertension; Management per pulmonary, continue supportive care --Acute metabolic encephalopathy 11/21 CT head shows no acute intracranial abnormality, sinus disease Continue supportive care --NSTEMI type II Presented with [facility] with elevated troponins cardiology patient had a stress test in 2019 which showed no significant ischemia, Echo; EF 50 to 55% severe pulmonary hypertension moderate mitral stenosis may benefit from HECTOR for evaluation of mitral valve when patient is stable Medical management per cardiology --Acute kidney injury; present on admission/resolved Vasomotor nephropathy Now resolved, normal renal function Avoid nephrotoxins, nephrology following --History of bladder cancer; Indwelling Paulson in place, supportive care Continue Flomax --Urinary tract infection; Completed antibiotics total 5 days --Dyslipidemia; Continue statin and low-cholesterol diet --Hypertension; moderate control We will continue current antihypertensives And as needed hydralazine --Hypernatremia ; resolved Patient was hyponatremia on admission ,probably overcorrection Increase oral intake of water/monitor electrolytes --Severe protein calorie malnutrition ; Hypoalbuminemia ,nutrition supplements Nutrition consult and supportive care --Nutrition; cardiac diet as tolerated --DVT prophylaxis; Subcu heparin, SCDs --GI prophylaxis; Continue Prevacid --Full CODE STATUS; We will closely monitor the patient and adjust the management as needed Consults and recommendations noted and appreciated Plan of care reviewed with the patient's nurse Plan of care reviewed with the patient's nurse PT OT when he comes off high flow oxygen DC planning per case management; considering LTAC placement The high probability of a clinically significant, sudden or life threatening deterioration of the [resp, cardiac, nephrology, metabolic] system(s) required my full and direct attention, intervention and personal management. The aggregate critical care time was [33] minutes. This time is in addition to time spent performing reported procedures but includes the following: [x] Data Review and interpretation [x] Patient assessment and monitoring of vital signs [x] Documentation [x] Medication orders and management Brief history and daily hospital course: 85-year-old male patient with past medical history of COPD on home oxygen, GERD, hypertension, asthma, hyperlipidemia, vasopressin, bladder cancer admitted for acute hypoxic respiratory failure, intubated on 11/21/2020 managed appropriately evaluated by pulmonary critical subsequently extubated on 11/23/2020, today patient is on high flow nasal cannula oxygen, pulmonary critical, cardiology and nephrology following the patient 11/23: Patient was extubated, currently on BiPAP Mild distress, wean as tolerated 11/25/2020; patient is on BiPAP Mild distress, noncommunicative 11/26/2020; patient is on intermittent BiPAP Currently on high flow nasal cannula oxygen 11/27/2020; patient is more alert and awake Will get swallow screen, if normal start pured diet Transfer the patient to [facility] 11/28/2020; patient is on high flow oxygen slightly better than yesterday Able to tolerate mechanical soft diet when the family comes and helps him DC planning, considering LTAC placement 11/29 Still on HFNC oxygen 11/30 Still on HFNC oxygen 12/01 on 35 liters O2 714/21; patient remains on high flow nasal cannula oxygen requiring 25 L/FiO2 35%/O2 sats 96 Wean as tolerated, awaiting LTAC placement Patient is hemodynamically and clinically stable to be transferred out of [facility] to cardiac telemetry or medical floor with remote telemetry today. History Interval history: Seen and examined the patient at the bedside this morning patient's daughter In the room Patient is alert and awake Remains on high flow oxygen Not in acute distress Vital signs noted Hospitalist Physical - Constitutional Vitals: Temp Pulse Resp BP Pulse Ox 97.9 F 99 H 43 H 132/80 96 12/03/20 03:44 12/03/20 16:30 12/03/20 16:30 12/03/20 16:30 12/03/20 16:30 General appearance: Present: no acute distress, well-nourished, obese, other (On high flow oxygen) - EENT Eyes: Present: PERRL, EOM intact - Neck Neck: Present: supple, normal ROM - Respiratory Respiratory effort: normal Respiratory: bilateral: diminished, negative: rales, rhonchi, wheezing - Cardiovascular Rhythm: regular Heart Sounds: Present: S1 & S2 - Extremities Extremities: no ischemia, No edema - Abdominal General gastrointestinal: soft, non-tender, non-distended, normal bowel sounds - Integumentary Integumentary: Present: clear, warm - Psychiatric Psychiatric: appropriate mood/affect, cooperative - Neurologic Neurologic: moves all extremities HEART Score - HEART Score Troponin: Troponin T 0.021 ng/mL (0.00-0.029) 11/29/20 04:43 Results - Labs CBC & Chem 7: 11/28/20 09:21 12/03/20 05:40 Labs: Laboratory Last Values WBC 9.8 K/mm3 (4.5-11.0) 11/28/20 09: RBC 4.01 M/mm3 (3.65-5.03) 11/28/20 09:21 Hgb 12.3 gm/dl (11.8-15.2) 11/28/20 09:21 Hct 37.6 % (35.5-45.6) 11/28/20 09:21 MCV 94 fl (84-94) 11/28/20 09:21 MCH 31 pg (28-32) 11/28/20 09:21 MCHC 33 % (32-34) 11/28/20 09:21 RDW 15.1 % (13.2-15.2) 11/28/20 09:21 Plt Count 369 K/mm3 (140-440) 11/28/20 09:21 Lymph % (Auto) 16.1 % (13.4-35.0) 11/23/20 10:00 Tripp % (Auto) 15.0 % (0.0-7.3) H 11/23/20 10:00 Eos % (Auto) 1.0 % (0.0-4.3) 11/23/20 10:00 Baso % (Auto) 0.5 % (0.0-1.8) 11/23/20 10:00 Lymph # (Auto) 1.6 K/mm3 (1.2-5.4) 11/23/20 10:00 Tripp # (Auto) 1.5 K/mm3 (0.0-0.8) H 11/23/20 10:00 Eos # (Auto) 0.1 K/mm3 (0.0-0.4) 11/23/20 10:00 Baso # (Auto) 0.1 K/mm3 (0.0-0.1) 11/23/20 10:00 Add Manual Diff Complete 11/25/20 08:18 Total Counted 100 11/25/20 08:18 Seg Neutrophils % Decker Operator 11/25/20 08:18 Seg Neuts % (Manual) 98.0 % (40.0-70.0) H 11/25/20 08:18 Monocytes % (Manual) 2.0 % (0.0-7.3) 11/25/20 08:18 Nucleated RBC % 1.0 % (0.0-0.9) H 11/25/20 08:18 Seg Neutrophils # 6.6 K/mm3 (1.8-7.7) 11/23/20 10:00 Seg Neutrophils # Man 12.9 K/mm3 (1.8-7.7) H 11/25/20 08:18 Band Neutrophils # 0.0 K/mm3 11/25/20 08:18 Lymphocytes # (Manual) 0.0 K/mm3 (1.2-5.4) L 11/25/20 08:18 Abs React Lymphs (Man) 0.0 K/mm3 11/25/20 08:18 Monocytes # (Manual) 0.3 K/mm3 (0.0-0.8) 11/25/20 08:18 Eosinophils # (Manual) 0.0 K/mm3 (0.0-0.4) 11/25/20 08:18 Basophils # (Manual) 0.0 K/mm3 (0.0-0.1) 11/25/20 08:18 Metamyelocytes # 0.0 K/mm3 11/25/20 08:18 Myelocytes # 0.0 K/mm3 11/25/20 08:18 Promyelocytes # 43.8 K/mm3 11/25/20 08:18 Blast Cells # 0.0 K/mm3 11/25/20 08:18 WBC Morphology Not Reportable 11/25/20 08:18 Hypersegmented Neuts Not Reportable 11/25/20 08:18 Hyposegmented Neuts Not Reportable 11/25/20 08:18 Hypogranular Neuts Not Reportable 11/25/20 08:18 Smudge Cells Not Reportable 11/25/20 08:18 Toxic Granulation Few 11/25/20 08:18 Toxic Vacuolation Not Reportable 11/25/20 08:18 Dohle Bodies Not Reportable 11/25/20 08:18 Pelger-Huet Anomaly Not Reportable 11/25/20 08:18 Liang Rods Not Reportable 11/25/20 08:18 Platelet Estimate Consistent w auto 11/25/20 08:18 Clumped Platelets Not Reportable 11/25/20 08:18 Plt Clumps, EDTA Not Reportable 11/25/20 08:18 Large Platelets Not Reportable 11/25/20 08:18 Giant Platelets Not Reportable 11/25/20 08:18 Platelet Satelliting Not Reportable 11/25/20 08:18 Plt Morphology Comment Not Reportable 11/25/20 08:18 RBC Morphology Not Reportable 11/25/20 08:18 Dimorphic RBCs Not Reportable 11/25/20 08:18 Polychromasia Not Reportable 11/25/20 08:18 Hypochromasia 1+ 11/25/20 08:18 Poikilocytosis Not Reportable 11/25/20 08:18 Anisocytosis Not Reportable 11/25/20 08:18 Microcytosis Not Reportable 11/25/20 08:18 Macrocytosis Not Reportable 11/25/20 08:18 Spherocytes Not Reportable 11/25/20 08:18 Pappenheimer Bodies Not Reportable 11/25/20 08:18 Sickle Cells Not Reportable 11/25/20 08:18 Target Cells 1+ 11/25/20 08:18 Tear Drop Cells Not Reportable 11/25/20 08:18 Ovalocytes Not Reportable 11/25/20 08:18 Helmet Cells Not Reportable 11/25/20 08:18 Miranda-Sacaton Bodies Not Reportable 11/25/20 08:18 Glen Rings Not Reportable 11/25/20 08:18 Carmel Cells Not Reportable 11/25/20 08:18 Bite Cells Not Reportable 11/25/20 08:18 Crenated Cell Not Reportable 11/25/20 08:18 Elliptocytes Not Reportable 11/25/20 08:18 Acanthocytes (Spur) Not Reportable 11/25/20 08:18 Rouleaux Not Reportable 11/25/20 08:18 Hemoglobin C Crystals Not Reportable 11/25/20 08:18 Schistocytes Not Reportable 11/25/20 08:18 Malaria parasites Not Reportable 11/25/20 08:18 Fuad Bodies Not Reportable 11/25/20 08:18 Hem Pathologist Commnt No 11/25/20 08:18 PT 13.5 Sec. (12.2-14.9) 11/21/20 20:50 INR 0.98 (0.87-1.13) 11/21/20 20:50 APTT 32.1 Sec. (24.2-36.6) 11/21/20 20:50 ABG pH 7.281 (7.320-7.450) L 11/24/20 01:48 POC ABG pCO2 58.4 mmHg (32.0-48.0) H 11/24/20 01:48 POC ABG pO2 98.1 mmHg (83-108) 11/24/20 01:48 POC ABG HCO3 26.9 11/24/20 01:48 ABG O2 Saturation 96.9 (0-100) 11/24/20 01:48 POC ABG Base Excess -0.7 11/24/20 01:48 ABG Hemoglobin 11.8 (12.0-17.5) L 11/24/20 01:48 ABG Oxyhemoglobin 95.9 (94-98) 11/24/20 01:48 ABG Methemoglobin 0.3 (0.0-1.5) 11/24/20 01:48 ABG Sodium 140.6 mmol/L (136.0-145.0) 11/24/20 01:48 ABG Potassium 3.9 mmol/L (3.40-4.50) 11/24/20 01:48 ABG Chloride 104.0 mmol/L (98-107) 11/24/20 01:48 ABG Glucose 101 mg/dL (65-95) H 11/24/20 01:48 Carboxyhemoglobin 0.7 (0.5-1.5) 11/24/20 01:48 FiO2 % 50.0 11/24/20 01:48 Sodium 138 mmol/L (137-145) 12/03/20 05:40 Potassium 4.5 mmol/L (3.6-5.0) 12/03/20 05:40 Chloride 99.2 mmol/L (98-107) 12/03/20 05:40 Carbon Dioxide 28 mmol/L (22-30) D 12/03/20 05:40 Anion Gap 15 mmol/L 12/03/20 05:40 BUN 44 mg/dL (9-20) H 12/03/20 05:40 Creatinine 1.2 mg/dL (0.8-1.3) 12/03/20 05:40 Estimated GFR 57 ml/min 12/03/20 05:40 BUN/Creatinine Ratio 37 % 12/03/20 05:40 Glucose 117 mg/dL (75-100) H 12/03/20 05:40 POC Glucose 106 mg/dL (70-105) H 12/03/20 16:46 Lactic Acid 0.60 mmol/L (0.7-2.0) L 11/24/20 09:58 Calcium 9.0 mg/dL (8.4-10.2) 12/03/20 05:40 Phosphorus 2.20 mg/dL (2.5-4.5) L 11/27/20 08:03 Magnesium 2.10 mg/dL (1.7-2.3) 11/27/20 08:03 Total Bilirubin 0.30 mg/dL (0.1-1.2) 11/26/20 06:22 AST 18 units/L (5-40) 11/26/20 06:22 ALT 22 units/L (7-56) 11/26/20 06:22 Alkaline Phosphatase 55 units/L (35-129) 11/26/20 06:22 Total Creatine Kinase 132 units/L (55-170) 11/22/20 10:20 CK-MB (CK-2) 3.3 ng/mL (0.0-4.0) 11/22/20 10:20 CK-MB (CK-2) Rel Index 2.5 (0-4) 11/22/20 10:20 Troponin T 0.021 ng/mL (0.00-0.029) 11/29/20 04:43 NT-Pro-B Natriuret Pep 6998 pg/mL (0-900) H 11/21/20 20:50 Serum Total Protein 5.3 g/dL (6.1-8.1) L 11/23/20 10:00 Total Protein 6.2 g/dL (6.3-8.2) L 11/26/20 06:22 Albumin 3.1 g/dL (3.9-5) L 11/26/20 06:22 Albumin/Globulin Ratio 1.0 % 11/26/20 06:22 Scvdn-6-Bkoeutnmg 0.4 g/dL (0.2-0.3) H 11/23/20 10:00 Fgekn-3-Hubnezsuu 0.8 g/dL (0.5-0.9) 11/23/20 10:00 Beta Globulins 0.3 g/dL (0.2-0.5) 11/23/20 10:00 Gamma Globulins 0.7 g/dL (0.8-1.7) L 11/23/20 10:00 Abnorm Protein Band 1 see below 11/23/20 10:00 PEP Interpretation see below H 11/23/20 10:00 Triglycerides 84 mg/dL (2-149) 11/21/20 20:50 Cholesterol 125 mg/dL (50-199) 11/21/20 20:50 LDL Cholesterol Direct 57 mg/dL (50-130) 11/21/20 20:50 HDL Cholesterol 60 mg/dL (40-59) H 11/21/20 20:50 Cholesterol/HDL Ratio 2.08 % 11/21/20 20:50 TSH 1.290 mlU/mL (0.270-4.200) 11/21/20 20:50 Free T4 1.18 ng/dL (0.76-1.46) 11/21/20 20:50 Arterial Blood Glucose 101 mg/dL (65-95) H 11/24/20 01:48 Arterial Blood Ionized Calcium 4.7 mg/dL (4.6-5.3) 11/24/20 01:48 Urine Color Yellow (Yellow) 11/22/20 05:00 Urine Turbidity Slightly-cloudy (Clear) 11/22/20 05:00 Urine pH 5.0 (5.0-7.0) 11/22/20 05:00 Ur Specific [place]ton 1.016 (1.003-1.030) 11/22/20 05:00 Urine Protein 30 mg/dl mg/dL (Negative) 11/22/20 05:00 Urine Glucose (UA) Neg mg/dL (Negative) 11/22/20 05:00 Urine Ketones Neg mg/dL (Negative) 11/22/20 05:00 Urine Blood Lg (Negative) 11/22/20 05:00 Urine Nitrite Neg (Negative) 11/22/20 05:00 Urine Bilirubin Neg (Negative) 11/22/20 05:00 Urine Urobilinogen < 2.0 mg/dL (<2.0) 11/22/20 05:00 Ur Leukocyte Esterase Tr (Negative) 11/22/20 05:00 Urine WBC (Auto) 33.0 /HPF (0.0-6.0) H 11/22/20 05:00 Urine RBC (Auto) 49.0 /HPF (0.0-6.0) 11/22/20 05:00 U Epithel Cells (Auto) 1.0 /HPF (0-13.0) 11/22/20 05:00 Hyaline Casts 4 /LPF 11/22/20 05:00 Urine Mucus 1+ /HPF 11/22/20 05:00 Urine Eosinophils None seen (None Seen) 11/24/20 17:55 Urine Creatinine 158.2 mg/dL (0.1-20.0) H 11/22/20 00:11 Urine Sodium 39 mmol/L 11/22/20 00:11 Fraction Sodium Excret 0.3 11/22/20 00:11 Urine Opiates Screen Presumptive negative 11/22/20 00:11 Urine Methadone Screen Presumptive negative 11/22/20 00:11 Ur Barbiturates Screen Presumptive negative 11/22/20 00:11 Ur Phencyclidine Scrn Presumptive negative 11/22/20 00:11 Ur Amphetamines Screen Presumptive negative 11/22/20 00:11 U Benzodiazepines Scrn Presumptive negative 11/22/20 00:11 Urine Cocaine Screen Presumptive negative 11/22/20 00:11 U Marijuana (THC) Screen Presumptive negative 11/22/20 00:11 Drugs of Abuse Note Disclamer 11/22/20 00:11 Plasma/Serum Alcohol < 0.01 % (0-0.07) 11/21/20 20:50 Proteinase 3 (PR3) Ab <1.0 AI (<1.0) 11/22/20 16:00 Myeloperoxidase Ab <1.0 AI (<1.0) 11/22/20 16:00 Double Strand DNA Ab 1 IU/mL (<=4) 11/22/20 16:00 Complement C3 93 mg/dL () 11/22/20 16:00 Complement C4 25 mg/dL () 11/22/20 16:00 Coronavirus (PCR) Negative (Negative) 11/23/20 09:30 Hepatitis A IgM Ab Non-reactive (NonReactive) 11/22/20 16:00 Hep Bs Antigen Non-reactive (Negative) 11/22/20 16:00 Hep B Core IgM Ab Non-reactive (NonReactive) 11/22/20 16:00 Hepatitis C Antibody Reactive (NonReactive) A 11/22/20 16:00 Paulson/IV: Voiding Method Indwelling Catheter Active Medications - Current Medications Current Medications: Generic Name Dose Route Start Last Admin Trade Name Freq PRN Reason Stop Dose Admin Acetaminophen 650 mg 11/23/20 15:29 12/02/20 14:30 Acetaminophen 325 Mg Tab PO 650 mg Q4H PRN Administration Pain, Mild (1-3) Albuterol 2.5 mg 11/22/20 01:19 Albuterol 2.5 Mg/3 Ml Nebu IH Q4HRT PRN Shortness Of Breath Albuterol/Ipratropium 1 ampul 11/22/20 02:00 12/03/20 13:45 Ipratropium/Albuterol Sulfate 3 Ml Ampul.Neb IH 1 ampul Q6HRT TERESA Administration Lipase/Protease/Amylase 1 each 11/22/20 09:07 Lipase 10,500/Protease 25,000/Amylase 43,750 (Units) Dr Ger FARIA PRN PRN For Clogged Feeding Tube Aspirin 81 mg 11/23/20 10:00 12/03/20 09:36 Aspirin 81 Mg Tab Chew PO 81 mg QDAY TERESA Administration Atorvastatin Calcium 40 mg 11/22/20 22:00 12/02/20 21:57 Atorvastatin 40 Mg Tab PO 40 mg QHS TERESA Administration Budesonide 0.5 mg 11/24/20 14:55 12/03/20 08:01 Budesonide 0.5 Mg/2 Ml Nebu IH 0.5 mg Q12HRT TERESA Administration Carvedilol 12.5 mg 12/03/20 22:00 Carvedilol 12.5 Mg Tab PO BID TERESA Heparin Sodium (Porcine) 5,000 unit 11/22/20 06:00 12/03/20 14:00 Heparin 5,000 Unit/1 Ml Vial SUB-Q 5,000 unit Q8HR TEERSA Administration Hydralazine HCl 10 mg 11/22/20 01:24 12/02/20 10:54 Hydralazine 20 Mg/1 Ml Inj IV 10 mg Q6H PRN Administration Blood Pressure Lansoprazole 30 mg 11/28/20 10:00 12/03/20 09:35 Lansoprazole 30 Mg Solutab FEEDTUBE 30 mg QDAY TERESA Administration Methylprednisolone Sodium Succinate 20 mg 11/29/20 21:00 12/03/20 14:00 Methylprednisolone Sod Succinate 125 Mg/2 Ml Inj IV 20 mg Q8HR TERESA Administration Nitroglycerin 0.4 mg 11/22/20 01:25 Nitroglycerin 0.4 Mg Tab Subl SL Q5M PRN Chest Pain Ondansetron HCl 4 mg 11/22/20 01:19 Ondansetron 4 Mg/2 Ml Inj IV Q8H PRN Nausea And Vomiting Quetiapine Fumarate 25 mg 11/27/20 12:00 12/03/20 09:36 Quetiapine 25 Mg Tab PO 25 mg BID TERESA Administration Senna/Docusate Sodium 1 tab 11/22/20 10:00 12/03/20 09:36 Sennosides/Docusate Sodium 8.6/50 Mg Tab FEEDTUBE 1 tab BID TERESA Administration Simple Syrup 15 ml 11/22/20 09:07 Simple Syrup 15 Ml FEEDTUBE PRN PRN Hypoglycemia Simple Syrup 30 ml 11/22/20 09:07 Simple Syrup 15 Ml FEEDTUBE PRN PRN Hypoglycemia Sodium Bicarbonate 325 mg 11/22/20 09:07 Sodium Bicarbonate 325 Mg Tab FEEDTUBE PRN PRN For Clogged Feeding Tube Sodium Chloride 10 ml 11/22/20 10:00 12/03/20 09:36 Sodium Chloride 0.9% 10 Ml Flush Syringe IV 10 ml BID TERESA Administration Sodium Chloride 10 ml 11/22/20 01:19 Sodium Chloride 0.9% 10 Ml Flush Syringe IV PRN PRN LINE FLUSH Tamsulosin HCl 0.4 mg 11/22/20 10:00 12/03/20 09:36 Tamsulosin 0.4 Mg Cap PO 0.4 mg DAILY TERESA Administration Nutrition/Malnutrition Assess - Dietary Evaluation Nutrition/Malnutrition Findings: Nutrition Notes Start: 11/22/20 08:53 Freq: Status: Active Protocol: Document 12/03/20 12:44 (Rec: 12/03/20 12:46 MK [email or web address]) Nutrition Notes Initial or Follow up Reassessment Current Diagnosis Acute Kidney Injury,COPD, Coronary Artery Disease, Diabetes,Hypertension,Heart Failure,Respiratory Failure, Hyperlipidemia Other Pertinent Diagnosis AMS Current Diet mech soft Labs/Tests BUN 44 Pertinent Medications Reviewed Height 5 ft 3 in Weight 80.6 kg [place] Body Weight (kg) 56.36 BMI 31.4 Weight Status Obese Subjective/Other Information FU for intakes. Pt not eating much of the meals. He is drinking some soup from home however, it is not enough to meet needs (30kcal per serving ). Pt drinkng small sips of ONS. Percent of energy/protein needs met: Negligible Burn Absent Trauma Absent Current % PO Negligible Minimum of two criteria No physical signs of malnutrition #1 Nutrition Diagnosis Inadequate oral intake As Evidenced by Signs and Symptoms pt taking bites and small sips of food/drink Diagnosis Progress(for reassessment Worsened documentation) Is patient on ventilator? No Is Patient Ambulatory and/or Out of Bed No REE-([facility]-confined to bed) 1664.640 Kcal/Kg value to use for calculation 17 Approximate Energy Requirements Using 1370 kcal/Kg Calculation Used for Recommendations Kcal/kg Additional Notes protein needs: 69-82g (1-1.2g/ kg AdjBW: 69kg) fluid needs: 1 ml/kcal or per MD order Nutrition Intervention Change Diet Order: Continue Add Supplement/Snack (indicate name/kcal Glucerna BID /protein ) Provides kCal: 440 Provides Protein (gm) 20 Goal #1 Meet at least 75% of energy and protein needs via PO and ONS [facility] Follow-Up By: 12/05/20 Additional Comments FU for intakes and ONS tolerance
--- NOTE | 2020-12-03 19:29 | Progress Note ---
Assessment and Plan Assessment and plan: Patient continues to be on high flow oxygen 25 L Wean as tolerated, closely monitor --Acute hypoxic respiratory failure/Requiring intubation 11/21/2020 s/p extubation 11/23/2020, patient is on noninvasive ventilation on high flow nasal cannula oxygen 25 L/35% FiO2/O2 sats 96% Clinically patient is more alert and awake responding appropriately Wean as tolerated --Acute exacerbation of COPD; Home oxygen dependent BiPAP as needed, wean as tolerated Continue nebulizers, tapering dose of IV steroids, supportive care Pulmonary following --Acute kidney injury; vasomotor nephropathy Gentle hydration closely monitor renal function Resolved, normal renal function, avoid nephrotoxins --Severe pulmonary hypertension; Management per pulmonary, continue supportive care --Acute metabolic encephalopathy 11/21 CT head shows no acute intracranial abnormality, sinus disease Continue supportive care --NSTEMI type II Presented with [facility] with elevated troponins cardiology patient had a stress test in 2019 which showed no significant ischemia, Echo; EF 50 to 55% severe pulmonary hypertension moderate mitral stenosis may benefit from HECTOR for evaluation of mitral valve when patient is stable Medical management per cardiology --Acute kidney injury; present on admission/resolved Vasomotor nephropathy Now resolved, normal renal function Avoid nephrotoxins, nephrology following --History of bladder cancer; Indwelling Paulson in place, supportive care Continue Flomax --Urinary tract infection; Completed antibiotics total 5 days --Dyslipidemia; Continue statin and low-cholesterol diet --Hypertension; moderate control We will continue current antihypertensives And as needed hydralazine --Hypernatremia ; resolved Patient was hyponatremia on admission ,probably overcorrection Increase oral intake of water/monitor electrolytes --Severe protein calorie malnutrition ; Hypoalbuminemia ,nutrition supplements Nutrition consult and supportive care --Nutrition; cardiac diet as tolerated --DVT prophylaxis; Subcu heparin, SCDs --GI prophylaxis; Continue Prevacid --Full CODE STATUS; We will closely monitor the patient and adjust the management as needed Consults and recommendations noted and appreciated Plan of care reviewed with the patient's nurse Plan of care reviewed with the patient's nurse PT OT when he comes off high flow oxygen DC planning per case management; considering LTAC placement The high probability of a clinically significant, sudden or life threatening deterioration of the [resp, cardiac, nephrology, metabolic] system(s) required my full and direct attention, intervention and personal management. The aggregate critical care time was [33] minutes. This time is in addition to time spent performing reported procedures but includes the following: [x] Data Review and interpretation [x] Patient assessment and monitoring of vital signs [x] Documentation [x] Medication orders and management Brief history and daily hospital course: 85-year-old male patient with past medical history of COPD on home oxygen, GERD, hypertension, asthma, hyperlipidemia, vasopressin, bladder cancer admitted for acute hypoxic respiratory failure, intubated on 11/21/2020 managed appropriately evaluated by pulmonary critical subsequently extubated on 11/23/2020, today patient is on high flow nasal cannula oxygen, pulmonary critical, cardiology and nephrology following the patient 11/23: Patient was extubated, currently on BiPAP Mild distress, wean as tolerated 11/25/2020; patient is on BiPAP Mild distress, noncommunicative 11/26/2020; patient is on intermittent BiPAP Currently on high flow nasal cannula oxygen 11/27/2020; patient is more alert and awake Will get swallow screen, if normal start pured diet Transfer the patient to [facility] 11/28/2020; patient is on high flow oxygen slightly better than yesterday Able to tolerate mechanical soft diet when the family comes and helps him DC planning, considering LTAC placement 11/29 Still on HFNC oxygen 11/30 Still on HFNC oxygen 12/01 on 35 liters O2 714/21; patient remains on high flow nasal cannula oxygen requiring 25 L/FiO2 35%/O2 sats 96 Wean as tolerated, awaiting LTAC placement Patient is hemodynamically and clinically stable to be transferred out of [facility] to cardiac telemetry or medical floor with remote telemetry today. 12/04/2020; remains on high flow oxygen 25 L/35%/96% O2 sats Wean as tolerated, pending LTAC placement consider PT OT once patient's respiratory status is stable History Interval history: Seen and examined the patient at the bedside this morning in [facility] Patient's chart medications reviewed patient remains on high flow oxygen 25 L/35% FiO2/O2 sats 97% No new overnight events reported by nursing Vital signs noted Hospitalist Physical - Constitutional Vitals: Temp Pulse Resp BP Pulse Ox 97.9 F 98 H 41 H 129/67 97 12/03/20 03:44 12/03/20 18:46 12/03/20 18:46 12/03/20 18:46 12/03/20 18:46 General appearance: Present: no acute distress, well-nourished, obese, other (On high flow oxygen) - EENT Eyes: Present: PERRL, EOM intact - Neck Neck: Present: supple, normal ROM - Respiratory Respiratory effort: normal Respiratory: bilateral: diminished, rales, negative: rhonchi, wheezing - Cardiovascular Rhythm: regular Heart Sounds: Present: S1 & S2 - Extremities Extremities: no ischemia, No edema - Abdominal General gastrointestinal: soft, non-tender, non-distended, normal bowel sounds - Integumentary Integumentary: Present: clear, warm - Psychiatric Psychiatric: other (Minimally communicative) - Neurologic Neurologic: moves all extremities HEART Score - HEART Score Troponin: Troponin T 0.021 ng/mL (0.00-0.029) 11/29/20 04:43 Results - Labs CBC & Chem 7: 11/28/20 09:21 12/03/20 05:40 Labs: Laboratory Last Values WBC 9.8 K/mm3 (4.5-11.0) 11/28/20 09:21 RBC 4.01 M/mm3 (3.65-5.03) 11/28/20 09:21 Hgb 12.3 gm/dl (11.8-15.2) 11/28/20 09:21 Hct 37.6 % (35.5-45.6) 11/28/20 09:21 MCV 94 fl (84-94) 11/28/20 09:21 MCH 31 pg (28-32) 11/28/20 09:21 MCHC 33 % (32-34) 11/28/20 09:21 RDW 15.1 % (13.2-15.2) 11/28/20 09:21 Plt Count 369 K/mm3 (140-440) 11/28/20 09:21 Lymph % (Auto) 16.1 % (13.4-35.0) 11/23/20 10:00 [place] % (Auto) 15.0 % (0.0-7.3) H 11/23/20 10:00 Eos % (Auto) 1.0 % (0.0-4.3) 11/23/20 10:00 Baso % (Auto) 0.5 % (0.0-1.8) 11/23/20 10:00 Lymph # (Auto) 1.6 K/mm3 (1.2-5.4) 11/23/20 10:00 [place] # (Auto) 1.5 K/mm3 (0.0-0.8) H 11/23/20 10:00 Eos # (Auto) 0.1 K/mm3 (0.0-0.4) 11/23/20 10:00 Baso # (Auto) 0.1 K/mm3 (0.0-0.1) 11/23/20 10:00 Add Manual Diff Complete 11/25/20 08:18 Total Counted 100 11/25/20 08:18 Seg Neutrophils % [employer] Management Specialist 11/25/20 08:18 Seg Neuts % (Manual) 98.0 % (40.0-70.0) H 11/25/20 08:18 Monocytes % (Manual) 2.0 % (0.0-7.3) 11/25/20 08:18 Nucleated RBC % 1.0 % (0.0-0.9) H 11/25/20 08:18 Seg Neutrophils # 6.6 K/mm3 (1.8-7.7) 11/23/20 10:00 Seg Neutrophils # Man 12.9 K/mm3 (1.8-7.7) H 11/25/20 08:18 Band Neutrophils # 0.0 K/mm3 11/25/20 08:18 Lymphocytes # (Manual) 0.0 K/mm3 (1.2-5.4) L 11/25/20 08:18 Abs React Lymphs (Man) 0.0 K/mm3 11/25/20 08:18 Monocytes # (Manual) 0.3 K/mm3 (0.0-0.8) 11/25/20 08:18 Eosinophils # (Manual) 0.0 K/mm3 (0.0-0.4) 11/25/20 08:18 Basophils # (Manual) 0.0 K/mm3 (0.0-0.1) 11/25/20 08:18 Metamyelocytes # 0.0 K/mm3 11/25/20 08:18 Myelocytes # 0.0 K/mm3 11/25/20 08:18 Promyelocytes # 43.8 K/mm3 11/25/20 08:18 Blast Cells # 0.0 K/mm3 11/25/20 08:18 WBC Morphology Not Reportable 11/25/20 08:18 Hypersegmented Neuts Not Reportable 11/25/20 08:18 Hyposegmented Neuts Not Reportable 11/25/20 08:18 Hypogranular Neuts Not Reportable 11/25/20 08:18 Smudge Cells Not Reportable 11/25/20 08:18 Toxic Granulation Few 11/25/20 08:18 Toxic Vacuolation Not Reportable 11/25/20 08:18 Dohle Bodies Not Reportable 11/25/20 08:18 Pelger-Huet Anomaly Not Reportable 11/25/20 08:18 Liang Rods Not Reportable 11/25/20 08:18 Platelet Estimate Consistent w auto 11/25/20 08:18 Clumped Platelets Not Reportable 11/25/20 08:18 Plt Clumps, EDTA Not Reportable 11/25/20 08:18 Large Platelets Not Reportable 11/25/20 08:18 Giant Platelets Not Reportable 11/25/20 08:18 Platelet Satelliting Not Reportable 11/25/20 08:18 Plt Morphology Comment Not Reportable 11/25/20 08:18 RBC Morphology Not Reportable 11/25/20 08:18 Dimorphic RBCs Not Reportable 11/25/20 08:18 Polychromasia Not Reportable 11/25/20 08:18 Hypochromasia 1+ 11/25/20 08:18 Poikilocytosis Not Reportable 11/25/20 08:18 Anisocytosis Not Reportable 11/25/20 08:18 Microcytosis Not Reportable 11/25/20 08:18 Macrocytosis Not Reportable 11/25/20 08:18 Spherocytes Not Reportable 11/25/20 08:18 Pappenheimer Bodies Not Reportable 11/25/20 08:18 Sickle Cells Not Reportable 11/25/20 08:18 Target Cells 1+ 11/25/20 08:18 Tear Drop Cells Not Reportable 11/25/20 08:18 Ovalocytes Not Reportable 11/25/20 08:18 Helmet Cells Not Reportable 11/25/20 08:18 [place] Bodies Not Reportable 11/25/20 08:18 [place] Rings Not Reportable 11/25/20 08:18 [place] Cells Not Reportable 11/25/20 08:18 Bite Cells Not Reportable 11/25/20 08:18 Crenated Cell Not Reportable 11/25/20 08:18 Elliptocytes Not Reportable 11/25/20 08:18 Acanthocytes (Spur) Not Reportable 11/25/20 08:18 Rouleaux Not Reportable 11/25/20 08:18 Hemoglobin C Crystals Not Reportable 11/25/20 08:18 Schistocytes Not Reportable 11/25/20 08:18 Malaria parasites Not Reportable 11/25/20 08:18 [place] Bodies Not Reportable 11/25/20 08:18 Hem Pathologist Commnt No 11/25/20 08:18 PT 13.5 Sec. (12.2-14.9) 11/21/20 20:50 INR 0.98 (0.87-1.13) 11/21/20 20:50 APTT 32.1 Sec. (24.2-36.6) 11/21/20 20:50 ABG pH 7.281 (7.320-7.450) L 11/24/20 01:48 POC ABG pCO2 58.4 mmHg (32.0-48.0) H 11/24/20 01:48 POC ABG pO2 98.1 mmHg (83-108) 11/24/20 01:48 POC ABG HCO3 26.9 11/24/20 01:48 ABG O2 Saturation 96.9 (0-100) 11/24/20 01:48 POC ABG Base Excess -0.7 11/24/20 01:48 ABG Hemoglobin 11.8 (12.0-17.5) L 11/24/20 01:48 ABG Oxyhemoglobin 95.9 (94-98) 11/24/20 01:48 ABG Methemoglobin 0.3 (0.0-1.5) 11/24/20 01:48 ABG Sodium 140.6 mmol/L (136.0-145.0) 11/24/20 01:48 ABG Potassium 3.9 mmol/L (3.40-4.50) 11/24/20 01:48 ABG Chloride 104.0 mmol/L (98-107) 11/24/20 01:48 ABG Glucose 101 mg/dL (65-95) H 11/24/20 01:48 Carboxyhemoglobin 0.7 (0.5-1.5) 11/24/20 01:48 FiO2 % 50.0 11/24/20 01:48 Sodium 138 mmol/L (137-145) 12/03/20 05:40 Potassium 4.5 mmol/L (3.6-5.0) 12/03/20 05:40 Chloride 99.2 mmol/L (98-107) 12/03/20 05:40 Carbon Dioxide 28 mmol/L (22-30) D 12/03/20 05:40 Anion Gap 15 mmol/L 12/03/20 05:40 BUN 44 mg/dL (9-20) H 12/03/20 05:40 Creatinine 1.2 mg/dL (0.8-1.3) 12/03/20 05:40 Estimated GFR 57 ml/min 12/03/20 05:40 BUN/Creatinine Ratio 37 % 12/03/20 05:40 Glucose 117 mg/dL (75-100) H 12/03/20 05:40 POC Glucose 106 mg/dL (70-105) H 12/03/20 16:46 Lactic Acid 0.60 mmol/L (0.7-2.0) L 11/24/20 09:58 Calcium 9.0 mg/dL (8.4-10.2) 12/03/20 05:40 Phosphorus 2.20 mg/dL (2.5-4.5) L 11/27/20 08:03 Magnesium 2.10 mg/dL (1.7-2.3) 11/27/20 08:03 Total Bilirubin 0.30 mg/dL (0.1-1.2) 11/26/20 06:22 AST 18 units/L (5-40) 11/26/20 06:22 ALT 22 units/L (7-56) 11/26/20 06:22 Alkaline Phosphatase 55 units/L (35-129) 11/26/20 06:22 Total Creatine Kinase 132 units/L (55-170) 11/22/20 10:20 CK-MB (CK-2) 3.3 ng/mL (0.0-4.0) 11/22/20 10:20 CK-MB (CK-2) Rel Index 2.5 (0-4) 11/22/20 10:20 Troponin T 0.021 ng/mL (0.00-0.029) 11/29/20 04:43 NT-Pro-B Natriuret Pep 6998 pg/mL (0-900) H 11/21/20 20:50 Serum Total Protein 5.3 g/dL (6.1-8.1) L 11/23/20 10:00 Total Protein 6.2 g/dL (6.3-8.2) L 11/26/20 06:22 Albumin 3.1 g/dL (3.9-5) L 11/26/20 06:22 Albumin/Globulin Ratio 1.0 % 11/26/20 06:22 [id number] 0.4 g/dL (0.2-0.3) H 11/23/20 10:00 [id number]-[id number] 0.8 g/dL (0.5-0.9) 11/23/20 10:00 Beta Globulins 0.3 g/dL (0.2-0.5) 11/23/20 10:00 Gamma Globulins 0.7 g/dL (0.8-1.7) L 11/23/20 10:00 Abnorm Protein Band 1 see below 11/23/20 10:00 PEP Interpretation see below H 11/23/20 10:00 Triglycerides 84 mg/dL (2-149) 11/21/20 20:50 Cholesterol 125 mg/dL (50-199) 11/21/20 20:50 LDL Cholesterol Direct 57 mg/dL (50-130) 11/21/20 20:50 HDL Cholesterol 60 mg/dL (40-59) H 11/21/20 20:50 Cholesterol/HDL Ratio 2.08 % 11/21/20 20:50 TSH 1.290 mlU/mL (0.270-4.200) 11/21/20 20:50 Free T4 1.18 ng/dL (0.76-1.46) 11/21/20 20:50 Arterial Blood Glucose 101 mg/dL (65-95) H 11/24/20 01:48 Arterial Blood Ionized Calcium 4.7 mg/dL (4.6-5.3) 11/24/20 01:48 Urine Color Yellow (Yellow) 11/22/20 05:00 Urine Turbidity Slightly-cloudy (Clear) 11/22/20 05:00 Urine pH 5.0 (5.0-7.0) 11/22/20 05:00 Ur Specific [place] 1.016 (1.003-1.030) 11/22/20 05:00 Urine Protein 30 mg/dl mg/dL (Negative) 11/22/20 05:00 Urine Glucose (UA) Neg mg/dL (Negative) 11/22/20 05:00 Urine Ketones Neg mg/dL (Negative) 11/22/20 05:00 Urine Blood Lg (Negative) 11/22/20 05:00 Urine Nitrite Neg (Negative) 11/22/20 05:00 Urine Bilirubin Neg (Negative) 11/22/20 05:00 Urine Urobilinogen < 2.0 mg/dL (<2.0) 11/22/20 05:00 Ur Leukocyte Esterase Tr (Negative) 11/22/20 05:00 Urine WBC (Auto) 33.0 /HPF (0.0-6.0) H 11/22/20 05:00 Urine RBC (Auto) 49.0 /HPF (0.0-6.0) 11/22/20 05:00 U Epithel Cells (Auto) 1.0 /HPF (0-13.0) 11/22/20 05:00 Hyaline Casts 4 /LPF 11/22/20 05:00 Urine Mucus 1+ /HPF 11/22/20 05:00 Urine Eosinophils None seen (None Seen) 11/24/20 17:55 Urine Creatinine 158.2 mg/dL (0.1-20.0) H 11/22/20 00:11 Urine Sodium 39 mmol/L 11/22/20 00:11 Fraction Sodium Excret 0.3 11/22/20 00:11 Urine Opiates Screen Presumptive negative 11/22/20 00:11 Urine Methadone Screen Presumptive negative 11/22/20 00:11 Ur Barbiturates Screen Presumptive negative 11/22/20 00:11 Ur Phencyclidine Scrn Presumptive negative 11/22/20 00:11 Ur Amphetamines Screen Presumptive negative 11/22/20 00:11 U Benzodiazepines Scrn Presumptive negative 11/22/20 00:11 Urine Cocaine Screen Presumptive negative 11/22/20 00:11 U Marijuana (THC) Screen Presumptive negative 11/22/20 00:11 Drugs of Abuse Note Disclamer 11/22/20 00:11 Plasma/Serum Alcohol < 0.01 % (0-0.07) 11/21/20 20:50 Proteinase 3 (PR3) Ab <1.0 AI (<1.0) 11/22/20 16:00 Myeloperoxidase Ab <1.0 AI (<1.0) 11/22/20 16:00 Double Strand DNA Ab 1 IU/mL (<=4) 11/22/20 16:00 Complement C3 93 mg/dL () 11/22/20 16:00 Complement C4 25 mg/dL () 11/22/20 16:00 Coronavirus (PCR) Negative (Negative) 11/23/20 09:30 Hepatitis A IgM Ab Non-reactive (NonReactive) 11/22/20 16:00 Hep Bs Antigen Non-reactive (Negative) 11/22/20 16:00 Hep B Core IgM Ab Non-reactive (NonReactive) 11/22/20 16:00 Hepatitis C Antibody Reactive (NonReactive) A 11/22/20 16:00 [place]/IV: Voiding Method Indwelling Catheter Active Medications - Current Medications Current Medications: Generic Name Dose Route Start Last Admin Trade Name Freq PRN Reason Stop Dose Admin Acetaminophen 650 mg 11/23/20 15:29 12/02/20 14:30 Acetaminophen 325 Mg Tab PO 650 mg Q4H PRN Administration Pain, Mild (1-3) Albuterol 2.5 mg 11/22/20 01:19 Albuterol 2.5 Mg/3 Ml Nebu IH Q4HRT PRN Shortness Of Breath Albuterol/Ipratropium 1 ampul 11/22/20 02:00 12/03/20 13:45 Ipratropium/Albuterol Sulfate 3 Ml Ampul.Neb IH 1 ampul Q6HRT TERESA Administration Lipase/Protease/Amylase 1 each 11/22/20 09:07 Lipase 10,500/Protease 25,000/Amylase 43,750 (Units) Dr Ger SAHATUBE PRN PRN For Clogged Feeding Tube Aspirin 81 mg 11/23/20 10:00 12/03/20 09:36 Aspirin 81 Mg Tab Chew PO 81 mg QDAY TERESA Administration Atorvastatin Calcium 40 mg 11/22/20 22:00 12/02/20 21:57 Atorvastatin 40 Mg Tab PO 40 mg QHS TERESA Administration Budesonide 0.5 mg 11/24/20 14:55 12/03/20 08:01 Budesonide 0.5 Mg/2 Ml Nebu IH 0.5 mg Q12HRT TERESA Administration Carvedilol 12.5 mg 12/03/20 22:00 Carvedilol 12.5 Mg Tab PO BID TERESA Heparin Sodium (Porcine) 5,000 unit 11/22/20 06:00 12/03/20 14:00 Heparin 5,000 Unit/1 Ml Vial SUB-Q 5,000 unit Q8HR TERESA Administration Hydralazine HCl 10 mg 11/22/20 01:24 12/02/20 10:54 Hydralazine 20 Mg/1 Ml Inj IV 10 mg Q6H PRN Administration Blood Pressure Lansoprazole 30 mg 11/28/20 10:00 12/03/20 09:35 Lansoprazole 30 Mg Solutab FEEDTUBE 30 mg QDAY TERESA Administration Methylprednisolone Sodium Succinate 20 mg 11/29/20 21:00 12/03/20 14:00 Methylprednisolone Sod Succinate 125 Mg/2 Ml Inj IV 20 mg Q8HR TERESA Administration Nitroglycerin 0.4 mg 11/22/20 01:25 Nitroglycerin 0.4 Mg Tab Subl SL Q5M PRN Chest Pain Ondansetron HCl 4 mg 11/22/20 01:19 Ondansetron 4 Mg/2 Ml Inj IV Q8H PRN Nausea And Vomiting Quetiapine Fumarate 25 mg 11/27/20 12:00 12/03/20 09:36 Quetiapine 25 Mg Tab PO 25 mg BID TERESA Administration Senna/Docusate Sodium 1 tab 11/22/20 10:00 12/03/20 09:36 Sennosides/Docusate Sodium 8.6/50 Mg Tab FEEDTUBE 1 tab BID TERESA Administration Simple Syrup 15 ml 11/22/20 09:07 Simple Syrup 15 Ml FEEDTUBE PRN PRN Hypoglycemia Simple Syrup 30 ml 11/22/20 09:07 Simple Syrup 15 Ml FEEDTUBE PRN PRN Hypoglycemia Sodium Bicarbonate 325 mg 11/22/20 09:07 Sodium Bicarbonate 325 Mg Tab FEEDTUBE PRN PRN For Clogged Feeding Tube Sodium Chloride 10 ml 11/22/20 10:00 12/03/20 09:36 Sodium Chloride 0.9% 10 Ml Flush Syringe IV 10 ml BID TERESA Administration Sodium Chloride 10 ml 11/22/20 01:19 Sodium Chloride 0.9% 10 Ml Flush Syringe IV PRN PRN LINE FLUSH Tamsulosin HCl 0.4 mg 11/22/20 10:00 12/03/20 09:36 Tamsulosin 0.4 Mg Cap PO 0.4 mg DAILY TERESA Administration Nutrition/Malnutrition Assess - Dietary Evaluation Nutrition/Malnutrition Findings: Nutrition Notes Start: 11/22/20 08:53 Freq: Status: Active Protocol: Document 12/03/20 12:44 (Rec: 12/03/20 12:46 [id number]) Nutrition Notes Initial or Follow up Reassessment Current Diagnosis Acute Kidney Injury,COPD, Coronary Artery Disease, Diabetes,Hypertension,Heart Failure,Respiratory Failure, Hyperlipidemia Other Pertinent Diagnosis AMS Current Diet mech soft Labs/Tests BUN 44 Pertinent Medications Reviewed Height 5 ft 3 in Weight 80.6 kg [place] Body Weight (kg) 56.36 BMI 31.4 Weight Status Obese Subjective/Other Information FU for intakes. Pt not eating much of the meals. He is drinking some soup from home however, it is not enough to meet needs (30kcal per serving ). Pt drinkng small sips of ONS. Percent of energy/protein needs met: Negligible Burn Absent Trauma Absent Current % PO Negligible Minimum of two criteria No physical signs of malnutrition #1 Nutrition Diagnosis Inadequate oral intake As Evidenced by Signs and Symptoms pt taking bites and small sips of food/drink Diagnosis Progress(for reassessment Worsened documentation) Is patient on ventilator? No Is Patient Ambulatory and/or Out of Bed No REE-([facility]-confined to bed) 1664.640 Kcal/Kg value to use for calculation 17 Approximate Energy Requirements Using 1370 kcal/Kg Calculation Used for Recommendations Kcal/kg Additional Notes protein needs: 69-82g (1-1.2g/ kg AdjBW: 69kg) fluid needs: 1 ml/kcal or per MD order Nutrition Intervention Change Diet Order: Continue Add Supplement/Snack (indicate name/kcal Glucerna BID /protein ) Provides kCal: 440 Provides Protein (gm) 20 Goal #1 Meet at least 75% of energy and protein needs via PO and ONS [facility] Follow-Up By: 12/05/20 Additional Comments FU for intakes and ONS tolerance
[2020-12-03] MEDS: carvediloL 12.5 MG TAB PO SCH ×2 (22:49→23:19)
[2020-12-04] MEDS: IPRATROPIUM/ALBUTEROL SULFATE 3 ML AMPUL.NEB IH SCH ×3 (02:52→15:12)
[2020-12-04] MEDS: methylPREDNISolone Sod Succinate 125 MG/2 ML INJ IV SCH ×3 (06:06→22:26)
[2020-12-04] MEDS: HEPARIN 5,000 UNIT/1 ML VIAL SUB-Q SCH ×3 (06:06→22:27)
[2020-12-04] MEDS: BUDESONIDE 0.5 MG/2 ML NEBU IH SCH (08:01)
--- NOTE | 2020-12-04 09:18 | Progress Note ---
Assessment and Plan Impression * Acute kidney injury * Severe hyperkalemia * Respiratory failure * Coronary artery disease * Hypertension * COPD * Bladder cancer * Hepatitis C Recommendations * Hyperkalemia has been corrected with aggressive medical management. * Renal function has been stable with creatinine 1.6->1.4->1.2->1.2, Patient is also currently nonoliguric * Avoid diuretics as able * BP improved today with increased carvedilol dosing 12.5mg BID * His urine shows 1+ dipstick protein and large blood. Fractional excretion of sodium is 0.4%. He most likely has a prerenal component. However given his microhematuria need to rule out vasculitis. Vasculitis work-up as ordered- complements WNL, ANCA/INGA negative, HCV ab is positive * Renal ultrasound shows atrophic left kidney. No obstruction. * Monitor fluid status and electrolytes closely * Avoid nephrotoxins Subjective Date of service: 12/04/20 Principal diagnosis: Acute respiratory failure Interval history: Patient more awake and alert today Objective - Exam Narrative Exam: Constitutional: no acute distress Head: NC/AT Neck: supple Lungs: clear to auscultation, on HFNC CV: RRR, no M/R/G Abdomen: soft, non-tender, bowel sounds present Back: nontender Extremities: no edema, pulses WNL Skin: intact Neuro: no focal deficits, drowsy - Vital Signs Vital signs: Vital Signs - 12hr 12/03/20 12/03/20 12/03/20 22:00 22:36 23:00 Pulse Rate 88 87 90 Pulse Rate [ Anterior Bilateral Throughout] Pulse Rate [ From Monitor] Respiratory 29 H 32 H 33 H Rate Respiratory Rate [Anterior Bilateral Throughout] Respiratory Rate [ Generalized] Blood Pressure 140/71 129/73 145/74 O2 Sat by Pulse 96 97 96 Oximetry 12/04/20 12/04/20 12/04/20 00:00 01:00 02:00 Pulse Rate 91 H 92 H 90 Pulse Rate [ Anterior Bilateral Throughout] Pulse Rate [ 90 From Monitor] Respiratory 33 H 25 H 36 H Rate Respiratory Rate [Anterior Bilateral Throughout] Respiratory 33 H Rate [ Generalized] Blood Pressure 153/69 152/75 157/80 O2 Sat by Pulse 96 96 97 Oximetry 12/04/20 12/04/20 12/04/20 02:52 03:00 04:00 Pulse Rate 88 84 Pulse Rate [ 91 H Anterior Bilateral Throughout] Pulse Rate [ From Monitor] Respiratory 33 H 33 H Rate Respiratory 26 H Rate [Anterior Bilateral Throughout] Respiratory Rate [ Generalized] Blood Pressure 162/73 139/71 O2 Sat by Pulse 94 95 Oximetry 12/04/20 12/04/20 05:00 06:00 Pulse Rate 83 84 Pulse Rate [ Anterior Bilateral Throughout] Pulse Rate [ From Monitor] Respiratory 34 H 29 H Rate Respiratory Rate [Anterior Bilateral Throughout] Respiratory Rate [ Generalized] Blood Pressure 161/71 144/73 O2 Sat by Pulse 97 96 Oximetry - Lab 11/28/20 09:21 12/03/20 05:40 Most recent lab results ABG pH 7.281 (7.320-7.450) L 11/24/20 01:48 ABG O2 Saturation 96.9 (0-100) 11/24/20 01:48 Calcium 9.0 mg/dL (8.4-10.2) 12/03/20 05:40 Phosphorus 2.20 mg/dL (2.5-4.5) L 11/27/20 08:03 Magnesium 2.10 mg/dL (1.7-2.3) 11/27/20 08:03 Urine Creatinine 158.2 mg/dL (0.1-20.0) H 11/22/20 00:11 Urine Sodium 39 mmol/L 11/22/20 00:11 Medications & Allergies - Medications Allergies/Adverse Reactions: Allergies No Known Allergies Allergy (Verified 11/11/18 08:08) Home Medications: Home Medications Medication Instructions Recorded Confirmed Last Taken Type Pantoprazole [Protonix TAB] 40 mg PO QDAY #30 tablet 04/11/19 11/22/20 Unknown Rx AtorvaSTATin 20 mg PO QHS 06/13/19 11/22/20 06/12/19 21:00 History Tamsulosin 0.4 mg PO DAILY 06/13/19 11/22/20 06/12/19 21:00 History carvediloL [Coreg] 3.125 mg PO BID 06/13/19 11/22/20 06/11/19 21:00 History Gabapentin 300 mg PO BID 11/22/20 11/22/20 Unknown History Active Medications: Generic Name Dose Route Start Last Admin Trade Name Freq PRN Reason Stop Dose Admin Acetaminophen 650 mg 11/23/20 15:29 12/02/20 14:30 Acetaminophen 325 Mg Tab PO 650 mg Q4H PRN Administration Pain, Mild (1-3) Albuterol 2.5 mg 11/22/20 01:19 Albuterol 2.5 Mg/3 Ml Nebu IH Q4HRT PRN Shortness Of Breath Albuterol/Ipratropium 1 ampul 11/22/20 02:00 12/04/20 08:01 Ipratropium/Albuterol Sulfate 3 Ml Ampul.Neb IH 1 ampul Q6HRT TERESA Administration Lipase/Protease/Amylase 1 each 11/22/20 09:07 Lipase 10,500/Protease 25,000/Amylase 43,750 (Units) Dr Cyr FEEDTFLORINDA PRN PRN For Clogged Feeding Tube Aspirin 81 mg 11/23/20 10:00 12/03/20 09:36 Aspirin 81 Mg Tab Chew PO 81 mg QDAY TERESA Administration Atorvastatin Calcium 40 mg 11/22/20 22:00 12/03/20 23:18 Atorvastatin 40 Mg Tab PO Not Given QHS TERESA Budesonide 0.5 mg 11/24/20 14:55 12/04/20 08:01 Budesonide 0.5 Mg/2 Ml Nebu IH 0.5 mg Q12HRT TERESA Administration Carvedilol 12.5 mg 12/03/20 22:00 12/03/20 23:19 Carvedilol 12.5 Mg Tab PO Not Given BID TERESA Heparin Sodium (Porcine) 5,000 unit 11/22/20 06:00 12/04/20 06:06 Heparin 5,000 Unit/1 Ml Vial SUB-Q 5,000 unit Q8HR TERESA Administration Hydralazine HCl 10 mg 11/22/20 01:24 12/02/20 10:54 Hydralazine 20 Mg/1 Ml Inj IV 10 mg Q6H PRN Administration Blood Pressure Lansoprazole 30 mg 11/28/20 10:00 12/03/20 09:35 Lansoprazole 30 Mg Solutab FEEDTUBE 30 mg QDAY TERESA Administration Methylprednisolone Sodium Succinate 20 mg 11/29/20 21:00 12/04/20 06:06 Methylprednisolone Sod Succinate 125 Mg/2 Ml Inj IV 20 mg Q8HR TERESA Administration Nitroglycerin 0.4 mg 11/22/20 01:25 Nitroglycerin 0.4 Mg Tab Subl SL Q5M PRN Chest Pain Ondansetron HCl 4 mg 11/22/20 01:19 Ondansetron 4 Mg/2 Ml Inj IV Q8H PRN Nausea And Vomiting Quetiapine Fumarate 25 mg 11/27/20 12:00 12/03/20 23:19 Quetiapine 25 Mg Tab PO Not Given BID TREESA Senna/Docusate Sodium 1 tab 11/22/20 10:00 12/03/20 23:19 Sennosides/Docusate Sodium 8.6/50 Mg Tab FEEDTUBE Not Given BID TERESA Simple Syrup 15 ml 11/22/20 09:07 Simple Syrup 15 Ml FEEDTUBE PRN PRN Hypoglycemia Simple Syrup 30 ml 11/22/20 09:07 Simple Syrup 15 Ml FEEDTUBE PRN PRN Hypoglycemia Sodium Bicarbonate 325 mg 11/22/20 09:07 Sodium Bicarbonate 325 Mg Tab FEEDTUBE PRN PRN For Clogged Feeding Tube Sodium Chloride 10 ml 11/22/20 10:00 12/03/20 22:49 Sodium Chloride 0.9% 10 Ml Flush Syringe IV 10 ml BID TERESA Administration Sodium Chloride 10 ml 11/22/20 01:19 Sodium Chloride 0.9% 10 Ml Flush Syringe IV PRN PRN LINE FLUSH Tamsulosin HCl 0.4 mg 11/22/20 10:00 12/03/20 09:36 Tamsulosin 0.4 Mg Cap PO 0.4 mg DAILY TERESA Administration
[2020-12-04] MEDS: carvediloL 12.5 MG TAB PO SCH ×2 (09:23→22:29)
[2020-12-04] MEDS: ASPIRIN 81 MG TAB CHEW PO SCH (09:23)
[2020-12-04] MEDS: QUEtiapine 25 MG TAB PO SCH ×2 (09:23→22:30)
[2020-12-04] MEDS: SENNOSIDES/DOCUSATE SODIUM 8.6/50 MG TAB FEEDTUBE SCH ×2 (09:23→22:30)
[2020-12-04] MEDS: LANSOPRAZOLE 30 MG SOLUTAB FEEDTUBE SCH (09:23)
[2020-12-04] MEDS: TAMSULOSIN 0.4 MG CAP PO SCH (09:23)
--- NOTE | 2020-12-04 13:42 | Progress Note ---
Assessment and Plan 85 y/o [place] male admitted with acute hypoxic respiratory failure. 12/04/20: LTACH denied. Continue to wean. Continue IV steroids. 12/03/20: Follow up with CM in regards to LTACH. Continue IV steroids. Wean FiO2 as tolerated. PT/OT if not already evaluated. Patient stable enough to transfer to floor. 12/02/20: CM still waiting to hear back from LTACH in regards to auth. Continue to wean FiO2 as tolerated for sats >88%. Continue IV steroids. 12/01/20: Wean HFNC for sats >88%. Spoke with CM about checking on LTACH but patient may be able to be weaned further now while in house. Will speak with RT about this. If placed on salter, may need to consider transfer to medical/surgical floor with remote tele. 11/28/20: Continue to wean HFNC. Agree with holding Precedex, can increase seroquel if needed to help with mood. Hopeful that over the weekend will be down to nasal cannula and can transfer to the floor. CM working on LTACH evaluation. Patient is stable for transfer, if and when accepted. 11/27/20: Will transfer to step down today. Agree with bedside swallow eval now that patient is more awake. Will try bID seroquel to help with mood and agitation. Hopeful Cr has stablized. Continue steroids at 40q8. Consider LTACH evaluation 11/26/20: 11/25/20: Continue bipap for right now. Added precedex and stopped ativan as this may be worsening agitation. Ok with haldol use. Continue daily diuretics to keep patient net negative. Continue ICU monitoring for now. Renal function is better. Guarded prognosis. 11/23/20: Wean sedation to off. If patient can tolerate being off sedation, will attempt PSV trial, otherwise, will likely have to just stop sedation and extubate, will have bipap ready for as needed purposes. Needs chemistry to assess renal function. Out put was good. 1. Repeat ABG later this afternoon and wean FIO2 according (>88%) 2. Stop sedation, need to assess mental state 3. Follow up renal function and urine output. 4. Guarded prognosis, this is likely acute on chronic respiratory failure. cct 31 minutes. Subjective Date of service: 12/04/20 Principal diagnosis: Acute respiratory failure Interval history: No acute events. LTACH denied by insurer. Still on HFNC at 25 and 35 Objective Vital Signs - 12hr 12/04/20 12/04/20 12/04/20 02:00 02:52 03:00 Temperature Pulse Rate 90 88 Pulse Rate [ 91 H Anterior Bilateral Throughout] Respiratory 36 H 33 H Rate Respiratory 26 H Rate [Anterior Bilateral Throughout] Blood Pressure 157/80 162/73 O2 Sat by Pulse 97 94 Oximetry 12/04/20 12/04/20 12/04/20 04:00 05:00 06:00 Temperature Pulse Rate 84 83 84 Pulse Rate [ Anterior Bilateral Throughout] Respiratory 33 H 34 H 29 H Rate Respiratory Rate [Anterior Bilateral Throughout] Blood Pressure 139/71 161/71 144/73 O2 Sat by Pulse 95 97 96 Oximetry 12/04/20 12/04/20 08:00 09:23 Temperature 97.0 F L Pulse Rate 90 Pulse Rate [ Anterior Bilateral Throughout] Respiratory Rate Respiratory Rate [Anterior Bilateral Throughout] Blood Pressure 154/79 O2 Sat by Pulse Oximetry Constitutional: no acute distress, alert Eyes: non-icteric ENT: oropharynx moist Neck: supple, other (large in circumference) Effort: normal Ascultation: Bilateral: clear, diminished breath sounds, wheezes Percussion: Bilateral: not dull Cardiovascular: other (tachy, no mrg) Gastrointestinal: normoactive bowel sounds, soft, non-tender, non-distended Extremities: no cyanosis, no edema, pink and warm Neurologic: normal mental status, non-focal exam, pupils equal and round Psychiatric: mood appropriate, affect normal CBC and BMP: 11/28/20 09:21 12/03/20 05:40 ABG, PT/INR, D-dimer: ABG ABG pH 7.281 (7.320-7.450) L 11/24/20 01:48 POC ABG pCO2 58.4 mmHg (32.0-48.0) H 11/24/20 01:48 POC ABG pO2 98.1 mmHg (83-108) 11/24/20 01:48 POC ABG HCO3 26.9 11/24/20 01:48 ABG O2 Saturation 96.9 (0-100) 11/24/20 01:48 PT/INR, D-dimer PT 13.5 Sec. (12.2-14.9) 11/21/20 20:50 INR 0.98 (0.87-1.13) 11/21/20 20:50 Abnormal lab findings: Abnormal Labs 11/21/20 11/21/20 11/22/20 20:50 20:50 00:11 WBC RBC 3.48 L Hgb 11.1 L Hct 34.3 L MCV 99 H Lymph % (Auto) 6.8 L [place] % (Auto) Lymph # (Auto) 0.6 L [place] # (Auto) Seg Neutrophils % 85.5 H Seg Neuts % (Manual) Nucleated RBC % Seg Neutrophils # Seg Neutrophils # Man Lymphocytes # (Manual) ABG pH POC ABG pCO2 POC ABG pO2 ABG Hemoglobin ABG Sodium ABG Potassium ABG Glucose Carboxyhemoglobin Sodium 130 L Potassium 7.3 H* Chloride 91.1 L Carbon Dioxide BUN 40 H Creatinine 2.1 H Glucose 195 H POC Glucose Lactic Acid Calcium Phosphorus AST 91 H ALT 65 H CK-MB (CK-2) Rel Index 4.1 H Troponin T 0.045 H NT-Pro-B Natriuret Pep 6998 H Serum Total Protein Total Protein Albumin 3.7 L Xdpdx-4-Boqzdcvxq Gamma Globulins PEP Interpretation HDL Cholesterol 60 H Arterial Blood Glucose Arterial Blood Ionized Calcium Urine WBC (Auto) Urine Creatinine 158.2 H Hepatitis C Antibody 11/22/20 11/22/20 11/22/20 00:23 00:40 01:37 WBC 14.1 H RBC 3.53 L Hgb 11.0 L Hct 34.1 L MCV 97 H Lymph % (Auto) 12.3 L [place] % (Auto) 14.2 H Lymph # (Auto) [place] # (Auto) 2.0 H Seg Neutrophils % 72.3 H Seg Neuts % (Manual) Nucleated RBC % Seg Neutrophils # 10.2 H Seg Neutrophils # Man Lymphocytes # (Manual) ABG pH POC ABG pCO2 POC ABG pO2 ABG Hemoglobin ABG Sodium ABG Potassium ABG Glucose Carboxyhemoglobin Sodium Potassium 5.1 H D Chloride Carbon Dioxide BUN Creatinine Glucose POC Glucose Lactic Acid 2.10 H* Calcium Phosphorus AST ALT CK-MB (CK-2) Rel Index Troponin T NT-Pro-B Natriuret Pep Serum Total Protein Total Protein Albumin Qzuks-0-Wwqlqpwyy Gamma Globulins PEP Interpretation HDL Cholesterol Arterial Blood Glucose Arterial Blood Ionized Calcium Urine WBC (Auto) Urine Creatinine Hepatitis C Antibody 11/22/20 11/22/20 11/22/20 01:37 03:20 05:00 WBC RBC Hgb Hct MCV Lymph % (Auto) [place] % (Auto) Lymph # (Auto) [place] # (Auto) Seg Neutrophils % Seg Neuts % (Manual) Nucleated RBC % Seg Neutrophils # Seg Neutrophils # Man Lymphocytes # (Manual) ABG pH POC ABG pCO2 58.4 H POC ABG pO2 ABG Hemoglobin 11.1 L ABG Sodium 135.1 L ABG Potassium 5.0 H ABG Glucose Carboxyhemoglobin Sodium Potassium 5.1 H Chloride Carbon Dioxide 31 H BUN 40 H Creatinine 2.0 H Glucose 49 L POC Glucose Lactic Acid Calcium Phosphorus AST ALT CK-MB (CK-2) Rel Index Troponin T NT-Pro-B Natriuret Pep Serum Total Protein Total Protein Albumin Pcqbi-2-Fksdaagsj Gamma Globulins PEP Interpretation HDL Cholesterol Arterial Blood Glucose Arterial Blood Ionized Calcium Urine WBC (Auto) 33.0 H Urine Creatinine Hepatitis C Antibody 11/22/20 11/22/20 11/22/20 05:00 05:00 05:00 WBC RBC Hgb Hct MCV Lymph % (Auto) [place] % (Auto) Lymph # (Auto) [place] # (Auto) Seg Neutrophils % Seg Neuts % (Manual) Nucleated RBC % Seg Neutrophils # Seg Neutrophils # Man Lymphocytes # (Manual) ABG pH POC ABG pCO2 POC ABG pO2 ABG Hemoglobin ABG Sodium ABG Potassium ABG Glucose Carboxyhemoglobin Sodium 136 L Potassium Chloride 97.8 L Carbon Dioxide BUN 41 H Creatinine 1.8 H 1.8 H Glucose POC Glucose Lactic Acid Calcium 8.2 L Phosphorus AST ALT CK-MB (CK-2) Rel Index Troponin T 0.065 H D NT-Pro-B Natriuret Pep Serum Total Protein Total Protein Albumin Iaavy-3-Eeullpqcy Gamma Globulins PEP Interpretation HDL Cholesterol Arterial Blood Glucose Arterial Blood Ionized Calcium Urine WBC (Auto) Urine Creatinine Hepatitis C Antibody 11/22/20 11/22/20 11/22/20 10:20 10:20 15:00 WBC RBC 3.16 L Hgb 10.2 L Hct 29.9 L MCV 95 H Lymph % (Auto) [place] % (Auto) Lymph # (Auto) [place] # (Auto) Seg Neutrophils % Seg Neuts % (Manual) Nucleated RBC % Seg Neutrophils # Seg Neutrophils # Man Lymphocytes # (Manual) ABG pH 7.501 H POC ABG pCO2 POC ABG pO2 ABG Hemoglobin 10.5 L ABG Sodium 134.9 L ABG Potassium ABG Glucose 115 H Carboxyhemoglobin 0.4 L Sodium Potassium Chloride Carbon Dioxide BUN Creatinine Glucose POC Glucose Lactic Acid Calcium Phosphorus AST ALT CK-MB (CK-2) Rel Index Troponin T 0.078 H NT-Pro-B Natriuret Pep Serum Total Protein Total Protein Albumin Sgmmf-7-Tyxtqferi Gamma Globulins PEP Interpretation HDL Cholesterol Arterial Blood Glucose 115 H Arterial Blood Ionized Calcium 4.3 L Urine WBC (Auto) Urine Creatinine Hepatitis C Antibody 11/22/20 11/22/20 11/22/20 16:00 17:45 23:21 WBC RBC Hgb Hct MCV Lymph % (Auto) [place] % (Auto) Lymph # (Auto) [place] # (Auto) Seg Neutrophils % Seg Neuts % (Manual) Nucleated RBC % Seg Neutrophils # Seg Neutrophils # Man Lymphocytes # (Manual) ABG pH POC ABG pCO2 POC ABG pO2 ABG Hemoglobin ABG Sodium ABG Potassium ABG Glucose Carboxyhemoglobin Sodium Potassium Chloride Carbon Dioxide BUN Creatinine Glucose POC Glucose 107 H 115 H Lactic Acid Calcium Phosphorus AST ALT CK-MB (CK-2) Rel Index Troponin T NT-Pro-B Natriuret Pep Serum Total Protein Total Protein Albumin Iicjq-9-Mzmzzvzml Gamma Globulins PEP Interpretation HDL Cholesterol Arterial Blood Glucose Arterial Blood Ionized Calcium Urine WBC (Auto) Urine Creatinine Hepatitis C Antibody Reactive A 11/23/20 11/23/20 11/23/20 03:03 05:33 10:00 WBC RBC 3.33 L Hgb 10.6 L Hct 32.2 L MCV 97 H Lymph % (Auto) [place] % (Auto) 15.0 H Lymph # (Auto) [place] # (Auto) 1.5 H Seg Neutrophils % Seg Neuts % (Manual) Nucleated RBC % Seg Neutrophils # Seg Neutrophils # Man Lymphocytes # (Manual) ABG pH POC ABG pCO2 POC ABG pO2 115.8 H ABG Hemoglobin 10.1 L ABG Sodium 135.8 L ABG Potassium ABG Glucose 98 H Carboxyhemoglobin 0.4 L Sodium Potassium Chloride Carbon Dioxide BUN Creatinine Glucose POC Glucose 106 H Lactic Acid Calcium Phosphorus AST ALT CK-MB (CK-2) Rel Index Troponin T NT-Pro-B Natriuret Pep Serum Total Protein Total Protein Albumin Kvubj-5-Cyrhlhfjq Gamma Globulins PEP Interpretation HDL Cholesterol Arterial Blood Glucose 98 H Arterial Blood Ionized Calcium 4.4 L Urine WBC (Auto) Urine Creatinine Hepatitis C Antibody 11/23/20 11/23/20 11/23/20 10:00 10:00 12:12 WBC RBC Hgb Hct MCV Lymph % (Auto) [place] % (Auto) Lymph # (Auto) [place] # (Auto) Seg Neutrophils % Seg Neuts % (Manual) Nucleated RBC % Seg Neutrophils # Seg Neutrophils # Man Lymphocytes # (Manual) ABG pH POC ABG pCO2 POC ABG pO2 ABG Hemoglobin ABG Sodium ABG Potassium ABG Glucose Carboxyhemoglobin Sodium Potassium Chloride Carbon Dioxide BUN 22 H Creatinine Glucose 101 H POC Glucose 119 H Lactic Acid Calcium 7.9 L Phosphorus AST ALT CK-MB (CK-2) Rel Index Troponin T NT-Pro-B Natriuret Pep Serum Total Protein 5.3 L Total Protein 5.5 L Albumin 2.8 L 2.8 L Dtuqz-9-Venvmbwea 0.4 H Gamma Globulins 0.7 L PEP Interpretation see below H HDL Cholesterol Arterial Blood Glucose Arterial Blood Ionized Calcium Urine WBC (Auto) Urine Creatinine Hepatitis C Antibody 11/23/20 11/23/20 11/24/20 18:21 23:28 01:48 WBC RBC Hgb Hct MCV Lymph % (Auto) [place] % (Auto) Lymph # (Auto) [place] # (Auto) Seg Neutrophils % Seg Neuts % (Manual) Nucleated RBC % Seg Neutrophils # Seg Neutrophils # Man Lymphocytes # (Manual) ABG pH 7.281 L POC ABG pCO2 58.4 H POC ABG pO2 ABG Hemoglobin 11.8 L ABG Sodium ABG Potassium ABG Glucose 101 H Carboxyhemoglobin Sodium Potassium Chloride Carbon Dioxide BUN Creatinine Glucose POC Glucose 106 H 108 H Lactic Acid Calcium Phosphorus AST ALT CK-MB (CK-2) Rel Index Troponin T NT-Pro-B Natriuret Pep Serum Total Protein Total Protein Albumin Ydwrp-0-Pkejnjdba Gamma Globulins PEP Interpretation HDL Cholesterol Arterial Blood Glucose 101 H Arterial Blood Ionized Calcium Urine WBC (Auto) Urine Creatinine Hepatitis C Antibody 11/24/20 11/24/20 11/25/20 09:58 09:58 00:29 WBC RBC Hgb Hct MCV Lymph % (Auto) [place] % (Auto) Lymph # (Auto) [place] # (Auto) Seg Neutrophils % Seg Neuts % (Manual) Nucleated RBC % Seg Neutrophils # Seg Neutrophils # Man Lymphocytes # (Manual) ABG pH POC ABG pCO2 POC ABG pO2 ABG Hemoglobin ABG Sodium ABG Potassium ABG Glucose Carboxyhemoglobin Sodium 148 H Potassium Chloride Carbon Dioxide 34 H D BUN Creatinine Glucose POC Glucose 111 H Lactic Acid 0.60 L Calcium Phosphorus AST ALT CK-MB (CK-2) Rel Index Troponin T NT-Pro-B Natriuret Pep Serum Total Protein Total Protein Albumin Wuemb-6-Sbqseymho Gamma Globulins PEP Interpretation HDL Cholesterol Arterial Blood Glucose Arterial Blood Ionized Calcium Urine WBC (Auto) Urine Creatinine Hepatitis C Antibody 11/25/20 11/25/20 11/25/20 05:48 08:18 08:18 WBC 13.2 H RBC 3.56 L Hgb 10.9 L Hct 34.0 L MCV 96 H Lymph % (Auto) [place] % (Auto) Lymph # (Auto) [place] # (Auto) Seg Neutrophils % Seg Neuts % (Manual) 98.0 H Nucleated RBC % 1.0 H Seg Neutrophils # Seg Neutrophils # Man 12.9 H Lymphocytes # (Manual) 0.0 L ABG pH POC ABG pCO2 POC ABG pO2 ABG Hemoglobin ABG Sodium ABG Potassium ABG Glucose Carboxyhemoglobin Sodium 147 H Potassium Chloride Carbon Dioxide 32 H BUN 26 H Creatinine Glucose 151 H POC Glucose 148 H Lactic Acid Calcium Phosphorus AST ALT CK-MB (CK-2) Rel Index Troponin T NT-Pro-B Natriuret Pep Serum Total Protein Total Protein 6.0 L Albumin 3.7 L Czzbz-6-Cpfszcptt Gamma Globulins PEP Interpretation HDL Cholesterol Arterial Blood Glucose Arterial Blood Ionized Calcium Urine WBC (Auto) Urine Creatinine Hepatitis C Antibody 11/25/20 11/25/20 11/25/20 11:34 18:03 23:15 WBC RBC Hgb Hct MCV Lymph % (Auto) [place] % (Auto) Lymph # (Auto) [place] # (Auto) Seg Neutrophils % Seg Neuts % (Manual) Nucleated RBC % Seg Neutrophils # Seg Neutrophils # Man Lymphocytes # (Manual) ABG pH POC ABG pCO2 POC ABG pO2 ABG Hemoglobin ABG Sodium ABG Potassium ABG Glucose Carboxyhemoglobin Sodium Potassium Chloride Carbon Dioxide BUN Creatinine Glucose POC Glucose 144 H 147 H 158 H Lactic Acid Calcium Phosphorus AST ALT CK-MB (CK-2) Rel Index Troponin T NT-Pro-B Natriuret Pep Serum Total Protein Total Protein Albumin Ozpiz-6-Huawzsyuo Gamma Globulins PEP Interpretation HDL Cholesterol Arterial Blood Glucose Arterial Blood Ionized Calcium Urine WBC (Auto) Urine Creatinine Hepatitis C Antibody 11/26/20 11/26/20 11/26/20 05:07 06:22 06:22 WBC 12.3 H RBC 3.52 L Hgb 11.1 L Hct 33.6 L MCV 95 H Lymph % (Auto) [place] % (Auto) Lymph # (Auto) [place] # (Auto) Seg Neutrophils % Seg Neuts % (Manual) Nucleated RBC % Seg Neutrophils # Seg Neutrophils # Man Lymphocytes # (Manual) ABG pH POC ABG pCO2 POC ABG pO2 ABG Hemoglobin ABG Sodium ABG Potassium ABG Glucose Carboxyhemoglobin Sodium Potassium 3.3 L Chloride 95.8 L Carbon Dioxide 33 H BUN 35 H Creatinine 1.4 H Glucose 185 H POC Glucose 184 H Lactic Acid Calcium Phosphorus AST ALT CK-MB (CK-2) Rel Index Troponin T 0.036 H D NT-Pro-B Natriuret Pep Serum Total Protein Total Protein 6.2 L Albumin 3.1 L Wxfna-7-Sftoncutw Gamma Globulins PEP Interpretation HDL Cholesterol Arterial Blood Glucose Arterial Blood Ionized Calcium Urine WBC (Auto) Urine Creatinine Hepatitis C Antibody 11/26/20 11/26/20 11/26/20 12:52 17:30 23:14 WBC RBC Hgb Hct MCV Lymph % (Auto) [place] % (Auto) Lymph # (Auto) [place] # (Auto) Seg Neutrophils % Seg Neuts % (Manual) Nucleated RBC % Seg Neutrophils # Seg Neutrophils # Man Lymphocytes # (Manual) ABG pH POC ABG pCO2 POC ABG pO2 ABG Hemoglobin ABG Sodium ABG Potassium ABG Glucose Carboxyhemoglobin Sodium Potassium Chloride Carbon Dioxide BUN Creatinine Glucose POC Glucose 170 H 133 H 149 H Lactic Acid Calcium Phosphorus AST ALT CK-MB (CK-2) Rel Index Troponin T NT-Pro-B Natriuret Pep Serum Total Protein Total Protein Albumin Bgahy-4-Mhnzuwmgt Gamma Globulins PEP Interpretation HDL Cholesterol Arterial Blood Glucose Arterial Blood Ionized Calcium Urine WBC (Auto) Urine Creatinine Hepatitis C Antibody 11/27/20 11/27/20 11/27/20 05:35 08:03 12:02 WBC RBC Hgb Hct MCV Lymph % (Auto) [place] % (Auto) Lymph # (Auto) [place] # (Auto) Seg Neutrophils % Seg Neuts % (Manual) Nucleated RBC % Seg Neutrophils # Seg Neutrophils # Man Lymphocytes # (Manual) ABG pH POC ABG pCO2 POC ABG pO2 ABG Hemoglobin ABG Sodium ABG Potassium ABG Glucose Carboxyhemoglobin Sodium Potassium Chloride 97.0 L Carbon Dioxide 31 H BUN 41 H Creatinine 1.4 H Glucose 145 H POC Glucose 135 H 139 H Lactic Acid Calcium Phosphorus 2.20 L AST ALT CK-MB (CK-2) Rel Index Troponin T NT-Pro-B Natriuret Pep Serum Total Protein Total Protein Albumin Zrenk-7-Ctglhohej Gamma Globulins PEP Interpretation HDL Cholesterol Arterial Blood Glucose Arterial Blood Ionized Calcium Urine WBC (Auto) Urine Creatinine Hepatitis C Antibody 11/27/20 11/28/20 11/28/20 18:41 05:26 06:08 WBC RBC Hgb Hct MCV Lymph % (Auto) [place] % (Auto) Lymph # (Auto) [place] # (Auto) Seg Neutrophils % Seg Neuts % (Manual) Nucleated RBC % Seg Neutrophils # Seg Neutrophils # Man Lymphocytes # (Manual) ABG pH POC ABG pCO2 POC ABG pO2 ABG Hemoglobin ABG Sodium ABG Potassium ABG Glucose Carboxyhemoglobin Sodium Potassium Chloride Carbon Dioxide BUN 45 H Creatinine 1.4 H Glucose 135 H POC Glucose 148 H 143 H Lactic Acid Calcium Phosphorus AST ALT CK-MB (CK-2) Rel Index Troponin T NT-Pro-B Natriuret Pep Serum Total Protein Total Protein Albumin Sstsf-6-Paygmqvkb Gamma Globulins PEP Interpretation HDL Cholesterol Arterial Blood Glucose Arterial Blood Ionized Calcium Urine WBC (Auto) Urine Creatinine Hepatitis C Antibody 11/28/20 11/28/20 11/28/20 11:46 17:31 21:17 WBC RBC Hgb Hct MCV Lymph % (Auto) [place] % (Auto) Lymph # (Auto) [place] # (Auto) Seg Neutrophils % Seg Neuts % (Manual) Nucleated RBC % Seg Neutrophils # Seg Neutrophils # Man Lymphocytes # (Manual) ABG pH POC ABG pCO2 POC ABG pO2 ABG Hemoglobin ABG Sodium ABG Potassium ABG Glucose Carboxyhemoglobin Sodium Potassium Chloride Carbon Dioxide BUN Creatinine Glucose POC Glucose 132 H 156 H 122 H Lactic Acid Calcium Phosphorus AST ALT CK-MB (CK-2) Rel Index Troponin T NT-Pro-B Natriuret Pep Serum Total Protein Total Protein Albumin Bnktb-4-Guducrsgt Gamma Globulins PEP Interpretation HDL Cholesterol Arterial Blood Glucose Arterial Blood Ionized Calcium Urine WBC (Auto) Urine Creatinine Hepatitis C Antibody 11/29/20 11/29/20 11/29/20 00:06 04:43 05:15 WBC RBC Hgb Hct MCV Lymph % (Auto) [place] % (Auto) Lymph # (Auto) [place] # (Auto) Seg Neutrophils % Seg Neuts % (Manual) Nucleated RBC % Seg Neutrophils # Seg Neutrophils # Man Lymphocytes # (Manual) ABG pH POC ABG pCO2 POC ABG pO2 ABG Hemoglobin ABG Sodium ABG Potassium ABG Glucose Carboxyhemoglobin Sodium Potassium Chloride 97.7 L Carbon Dioxide BUN 56 H Creatinine 1.6 H Glucose 132 H POC Glucose 114 H 125 H Lactic Acid Calcium Phosphorus AST ALT CK-MB (CK-2) Rel Index Troponin T NT-Pro-B Natriuret Pep Serum Total Protein Total Protein Albumin Znkrl-2-Nscrhfcdk Gamma Globulins PEP Interpretation HDL Cholesterol Arterial Blood Glucose Arterial Blood Ionized Calcium Urine WBC (Auto) Urine Creatinine Hepatitis C Antibody 11/29/20 11/29/20 11/30/20 12:09 18:12 04:47 WBC RBC Hgb Hct MCV Lymph % (Auto) [place] % (Auto) Lymph # (Auto) [place] # (Auto) Seg Neutrophils % Seg Neuts % (Manual) Nucleated RBC % Seg Neutrophils # Seg Neutrophils # Man Lymphocytes # (Manual) ABG pH POC ABG pCO2 POC ABG pO2 ABG Hemoglobin ABG Sodium ABG Potassium ABG Glucose Carboxyhemoglobin Sodium Potassium Chloride Carbon Dioxide 31 H BUN 59 H Creatinine 1.6 H Glucose 122 H POC Glucose 142 H 132 H Lactic Acid Calcium Phosphorus AST ALT CK-MB (CK-2) Rel Index Troponin T NT-Pro-B Natriuret Pep Serum Total Protein Total Protein Albumin Pbfix-3-Jyzesdtcu Gamma Globulins PEP Interpretation HDL Cholesterol Arterial Blood Glucose Arterial Blood Ionized Calcium Urine WBC (Auto) Urine Creatinine Hepatitis C Antibody 11/30/20 11/30/20 11/30/20 05:45 11:47 18:16 WBC RBC Hgb Hct MCV Lymph % (Auto) [place] % (Auto) Lymph # (Auto) [place] # (Auto) Seg Neutrophils % Seg Neuts % (Manual) Nucleated RBC % Seg Neutrophils # Seg Neutrophils # Man Lymphocytes # (Manual) ABG pH POC ABG pCO2 POC ABG pO2 ABG Hemoglobin ABG Sodium ABG Potassium ABG Glucose Carboxyhemoglobin Sodium Potassium Chloride Carbon Dioxide BUN Creatinine Glucose POC Glucose 118 H 123 H 126 H Lactic Acid Calcium Phosphorus AST ALT CK-MB (CK-2) Rel Index Troponin T NT-Pro-B Natriuret Pep Serum Total Protein Total Protein Albumin Zfvuz-1-Giokyhwix Gamma Globulins PEP Interpretation HDL Cholesterol Arterial Blood Glucose Arterial Blood Ionized Calcium Urine WBC (Auto) Urine Creatinine Hepatitis C Antibody 12/01/20 12/01/20 12/01/20 00:11 04:57 05:41 WBC RBC Hgb Hct MCV Lymph % (Auto) [place] % (Auto) Lymph # (Auto) [place] # (Auto) Seg Neutrophils % Seg Neuts % (Manual) Nucleated RBC % Seg Neutrophils # Seg Neutrophils # Man Lymphocytes # (Manual) ABG pH POC ABG pCO2 POC ABG pO2 ABG Hemoglobin ABG Sodium ABG Potassium ABG Glucose Carboxyhemoglobin Sodium Potassium Chloride Carbon Dioxide BUN 52 H Creatinine 1.4 H Glucose 121 H POC Glucose 117 H 120 H Lactic Acid Calcium Phosphorus AST ALT CK-MB (CK-2) Rel Index Troponin T NT-Pro-B Natriuret Pep Serum Total Protein Total Protein Albumin Yoxsi-2-Lpzilclig Gamma Globulins PEP Interpretation HDL Cholesterol Arterial Blood Glucose Arterial Blood Ionized Calcium Urine WBC (Auto) Urine Creatinine Hepatitis C Antibody 12/01/20 12/02/20 12/02/20 23:35 06:02 08:09 WBC RBC Hgb Hct MCV Lymph % (Auto) [place] % (Auto) Lymph # (Auto) [place] # (Auto) Seg Neutrophils % Seg Neuts % (Manual) Nucleated RBC % Seg Neutrophils # Seg Neutrophils # Man Lymphocytes # (Manual) ABG pH POC ABG pCO2 POC ABG pO2 ABG Hemoglobin ABG Sodium ABG Potassium ABG Glucose Carboxyhemoglobin Sodium Potassium Chloride Carbon Dioxide BUN Creatinine Glucose POC Glucose 117 H 108 H 117 H Lactic Acid Calcium Phosphorus AST ALT CK-MB (CK-2) Rel Index Troponin T NT-Pro-B Natriuret Pep Serum Total Protein Total Protein Albumin Zkmst-6-Nsxxrhpzy Gamma Globulins PEP Interpretation HDL Cholesterol Arterial Blood Glucose Arterial Blood Ionized Calcium Urine WBC (Auto) Urine Creatinine Hepatitis C Antibody 12/02/20 12/02/20 12/02/20 09:40 11:33 17:34 WBC RBC Hgb Hct MCV Lymph % (Auto) [place] % (Auto) Lymph # (Auto) [place] # (Auto) Seg Neutrophils % Seg Neuts % (Manual) Nucleated RBC % Seg Neutrophils # Seg Neutrophils # Man Lymphocytes # (Manual) ABG pH POC ABG pCO2 POC ABG pO2 ABG Hemoglobin ABG Sodium ABG Potassium ABG Glucose Carboxyhemoglobin Sodium Potassium Chloride 97.6 L Carbon Dioxide 35 H BUN 45 H Creatinine Glucose POC Glucose 109 H 124 H Lactic Acid Calcium Phosphorus AST ALT CK-MB (CK-2) Rel Index Troponin T NT-Pro-B Natriuret Pep Serum Total Protein Total Protein Albumin Gnqgr-8-Emhlfqvts Gamma Globulins PEP Interpretation HDL Cholesterol Arterial Blood Glucose Arterial Blood Ionized Calcium Urine WBC (Auto) Urine Creatinine Hepatitis C Antibody 12/03/20 12/03/20 12/03/20 05:40 07:16 16:46 WBC RBC Hgb Hct MCV Lymph % (Auto) [place] % (Auto) Lymph # (Auto) [place] # (Auto) Seg Neutrophils % Seg Neuts % (Manual) Nucleated RBC % Seg Neutrophils # Seg Neutrophils # Man Lymphocytes # (Manual) ABG pH POC ABG pCO2 POC ABG pO2 ABG Hemoglobin ABG Sodium ABG Potassium ABG Glucose Carboxyhemoglobin Sodium Potassium Chloride Carbon Dioxide BUN 44 H Creatinine Glucose 117 H POC Glucose 115 H 106 H Lactic Acid Calcium Phosphorus AST ALT CK-MB (CK-2) Rel Index Troponin T NT-Pro-B Natriuret Pep Serum Total Protein Total Protein Albumin Tqndp-6-Xvuhxprdn Gamma Globulins PEP Interpretation HDL Cholesterol Arterial Blood Glucose Arterial Blood Ionized Calcium Urine WBC (Auto) Urine Creatinine Hepatitis C Antibody 12/03/20 12/04/20 12/04/20 21:55 07:53 11:43 WBC RBC Hgb Hct MCV Lymph % (Auto) [place] % (Auto) Lymph # (Auto) [place] # (Auto) Seg Neutrophils % Seg Neuts % (Manual) Nucleated RBC % Seg Neutrophils # Seg Neutrophils # Man Lymphocytes # (Manual) ABG pH POC ABG pCO2 POC ABG pO2 ABG Hemoglobin ABG Sodium ABG Potassium ABG Glucose Carboxyhemoglobin Sodium Potassium Chloride Carbon Dioxide BUN Creatinine Glucose POC Glucose 113 H 110 H 110 H Lactic Acid Calcium Phosphorus AST ALT CK-MB (CK-2) Rel Index Troponin T NT-Pro-B Natriuret Pep Serum Total Protein Total Protein Albumin Fvofc-0-Mpoqcszwg Gamma Globulins PEP Interpretation HDL Cholesterol Arterial Blood Glucose Arterial Blood Ionized Calcium Urine WBC (Auto) Urine Creatinine Hepatitis C Antibody
[2020-12-05] MEDS: IPRATROPIUM/ALBUTEROL SULFATE 3 ML AMPUL.NEB IH SCH ×5 (00:10→20:43)
[2020-12-05] MEDS: BUDESONIDE 0.5 MG/2 ML NEBU IH SCH ×3 (00:10→20:43)
[2020-12-05] MEDS: methylPREDNISolone Sod Succinate 125 MG/2 ML INJ IV SCH (06:29)
[2020-12-05] MEDS: HEPARIN 5,000 UNIT/1 ML VIAL SUB-Q SCH ×3 (06:29→21:33)
[2020-12-05] MEDS: TAMSULOSIN 0.4 MG CAP PO SCH (11:20)
[2020-12-05] MEDS: carvediloL 12.5 MG TAB PO SCH ×2 (11:20→21:34)
[2020-12-05] MEDS: QUEtiapine 25 MG TAB PO SCH ×2 (11:20→21:34)
[2020-12-05] MEDS: LANSOPRAZOLE 30 MG SOLUTAB FEEDTUBE SCH (11:20)
[2020-12-05] MEDS: ASPIRIN 81 MG TAB CHEW PO SCH (11:20)
[2020-12-05] MEDS: SENNOSIDES/DOCUSATE SODIUM 8.6/50 MG TAB FEEDTUBE SCH ×2 (11:21→21:34)
--- NOTE | 2020-12-05 12:20 | Progress Note ---
Assessment and Plan 85 y/o swazi male admitted with acute hypoxic respiratory failure. 12/05/20: Change to oral steroids starting tomorrow with prolonged taper. Likely dischargeable over the weekend. 12/04/20: LTACH denied. Continue to wean. Continue IV steroids. 12/03/20: Follow up with CM in regards to LTACH. Continue IV steroids. Wean FiO2 as tolerated. PT/OT if not already evaluated. Patient stable enough to transfer to floor. 12/02/20: CM still waiting to hear back from LTACH in regards to auth. Continue to wean FiO2 as tolerated for sats >88%. Continue IV steroids. 12/01/20: Wean HFNC for sats >88%. Spoke with CM about checking on LTACH but patient may be able to be weaned further now while in house. Will speak with RT about this. If placed on salter, may need to consider transfer to medical/surgical floor with remote tele. 11/28/20: Continue to wean HFNC. Agree with holding Precedex, can increase seroquel if needed to help with mood. Hopeful that over the weekend will be down to nasal cannula and can transfer to the floor. CM working on LTACH evaluation. Patient is stable for transfer, if and when accepted. 11/27/20: Will transfer to step down today. Agree with bedside swallow eval now that patient is more awake. Will try bID seroquel to help with mood and agitation. Hopeful Cr has stablized. Continue steroids at 40q8. Consider LTACH evaluation 11/26/20: 11/25/20: Continue bipap for right now. Added precedex and stopped ativan as this may be worsening agitation. Ok with haldol use. Continue daily diuretics to keep patient net negative. Continue ICU monitoring for now. Renal function is better. Guarded prognosis. 11/23/20: Wean sedation to off. If patient can tolerate being off sedation, will attempt PSV trial, otherwise, will likely have to just stop sedation and extubate, will have bipap ready for as needed purposes. Needs chemistry to assess renal function. Out put was good. 1. Repeat ABG later this afternoon and wean FIO2 according (>88%) 2. Stop sedation, need to assess mental state 3. Follow up renal function and urine output. 4. Guarded prognosis, this is likely acute on chronic respiratory failure. cct 31 minutes. Subjective Date of service: 12/05/20 Principal diagnosis: Acute respiratory failure Interval history: No acute events. Down to 3 liters with sat documented at 99%. Objective Vital Signs - 12hr 12/05/20 12/05/20 12/05/20 00:30 04:00 04:15 Temperature 98.9 F Pulse Rate 82 68 68 Pulse Rate [ Anterior Bilateral Throughout] Pulse Rate [ 74 From Monitor] Respiratory 25 H Rate Respiratory Rate [Anterior Bilateral Throughout] Blood Pressure 152/71 [Left] O2 Sat by Pulse 100 Oximetry 12/05/20 12/05/20 12/05/20 08:32 08:40 08:41 Temperature 98.6 F Pulse Rate 80 Pulse Rate [ 77 Anterior Bilateral Throughout] Pulse Rate [ From Monitor] Respiratory 20 Rate Respiratory 20 Rate [Anterior Bilateral Throughout] Blood Pressure 176/78 [Left] O2 Sat by Pulse 98 99 Oximetry Constitutional: no acute distress, alert Eyes: non-icteric ENT: oropharynx moist Neck: supple, other (large in circumference) Effort: normal Ascultation: Bilateral: clear, diminished breath sounds, wheezes Percussion: Bilateral: not dull Cardiovascular: other (tachy, no mrg) Gastrointestinal: normoactive bowel sounds, soft, non-tender, non-distended Extremities: no cyanosis, no edema, pink and warm Neurologic: normal mental status, non-focal exam, pupils equal and round Psychiatric: mood appropriate, affect normal CBC and BMP: 11/28/20 09:21 12/03/20 05:40 ABG, PT/INR, D-dimer: ABG ABG pH 7.281 (7.320-7.450) L 11/24/20 01:48 POC ABG pCO2 58.4 mmHg (32.0-48.0) H 11/24/20 01:48 POC ABG pO2 98.1 mmHg (83-108) 11/24/20 01:48 POC ABG HCO3 26.9 11/24/20 01:48 ABG O2 Saturation 96.9 (0-100) 11/24/20 01:48 PT/INR, D-dimer PT 13.5 Sec. (12.2-14.9) 11/21/20 20:50 INR 0.98 (0.87-1.13) 11/21/20 20:50 Abnormal lab findings: Abnormal Labs 11/21/20 11/21/20 11/22/20 20:50 20:50 00:11 WBC RBC 3.48 L Hgb 11.1 L Hct 34.3 L MCV 99 H Lymph % (Auto) 6.8 L Braxton % (Auto) Lymph # (Auto) 0.6 L Braxton # (Auto) Seg Neutrophils % 85.5 H Seg Neuts % (Manual) Nucleated RBC % Seg Neutrophils # Seg Neutrophils # Man Lymphocytes # (Manual) ABG pH POC ABG pCO2 POC ABG pO2 ABG Hemoglobin ABG Sodium ABG Potassium ABG Glucose Carboxyhemoglobin Sodium 130 L Potassium 7.3 H* Chloride 91.1 L Carbon Dioxide BUN 40 H Creatinine 2.1 H Glucose 195 H POC Glucose Lactic Acid Calcium Phosphorus AST 91 H ALT 65 H CK-MB (CK-2) Rel Index 4.1 H Troponin T 0.045 H NT-Pro-B Natriuret Pep 6998 H Serum Total Protein Total Protein Albumin 3.7 L Pawmv-2-Pzkwfxydg Gamma Globulins PEP Interpretation HDL Cholesterol 60 H Arterial Blood Glucose Arterial Blood Ionized Calcium Urine WBC (Auto) Urine Creatinine 158.2 H Hepatitis C Antibody 11/22/20 11/22/20 11/22/20 00:23 00:40 01:37 WBC 14.1 H RBC 3.53 L Hgb 11.0 L Hct 34.1 L MCV 97 H Lymph % (Auto) 12.3 L Braxton % (Auto) 14.2 H Lymph # (Auto) Braxton # (Auto) 2.0 H Seg Neutrophils % 72.3 H Seg Neuts % (Manual) Nucleated RBC % Seg Neutrophils # 10.2 H Seg Neutrophils # Man Lymphocytes # (Manual) ABG pH POC ABG pCO2 POC ABG pO2 ABG Hemoglobin ABG Sodium ABG Potassium ABG Glucose Carboxyhemoglobin Sodium Potassium 5.1 H D Chloride Carbon Dioxide BUN Creatinine Glucose POC Glucose Lactic Acid 2.10 H* Calcium Phosphorus AST ALT CK-MB (CK-2) Rel Index Troponin T NT-Pro-B Natriuret Pep Serum Total Protein Total Protein Albumin Aagjp-9-Axatnnbgy Gamma Globulins PEP Interpretation HDL Cholesterol Arterial Blood Glucose Arterial Blood Ionized Calcium Urine WBC (Auto) Urine Creatinine Hepatitis C Antibody 11/22/20 11/22/20 11/22/20 01:37 03:20 05:00 WBC RBC Hgb Hct MCV Lymph % (Auto) Braxton % (Auto) Lymph # (Auto) Braxton # (Auto) Seg Neutrophils % Seg Neuts % (Manual) Nucleated RBC % Seg Neutrophils # Seg Neutrophils # Man Lymphocytes # (Manual) ABG pH POC ABG pCO2 58.4 H POC ABG pO2 ABG Hemoglobin 11.1 L ABG Sodium 135.1 L ABG Potassium 5.0 H ABG Glucose Carboxyhemoglobin Sodium Potassium 5.1 H Chloride Carbon Dioxide 31 H BUN 40 H Creatinine 2.0 H Glucose 49 L POC Glucose Lactic Acid Calcium Phosphorus AST ALT CK-MB (CK-2) Rel Index Troponin T NT-Pro-B Natriuret Pep Serum Total Protein Total Protein Albumin Krwqz-9-Lowumrzkx Gamma Globulins PEP Interpretation HDL Cholesterol Arterial Blood Glucose Arterial Blood Ionized Calcium Urine WBC (Auto) 33.0 H Urine Creatinine Hepatitis C Antibody 11/22/20 11/22/20 11/22/20 05:00 05:00 05:00 WBC RBC Hgb Hct MCV Lymph % (Auto) Braxton % (Auto) Lymph # (Auto) Braxton # (Auto) Seg Neutrophils % Seg Neuts % (Manual) Nucleated RBC % Seg Neutrophils # Seg Neutrophils # Man Lymphocytes # (Manual) ABG pH POC ABG pCO2 POC ABG pO2 ABG Hemoglobin ABG Sodium ABG Potassium ABG Glucose Carboxyhemoglobin Sodium 136 L Potassium Chloride 97.8 L Carbon Dioxide BUN 41 H Creatinine 1.8 H 1.8 H Glucose POC Glucose Lactic Acid Calcium 8.2 L Phosphorus AST ALT CK-MB (CK-2) Rel Index Troponin T 0.065 H D NT-Pro-B Natriuret Pep Serum Total Protein Total Protein Albumin Pggxh-0-Umxhqssfi Gamma Globulins PEP Interpretation HDL Cholesterol Arterial Blood Glucose Arterial Blood Ionized Calcium Urine WBC (Auto) Urine Creatinine Hepatitis C Antibody 11/22/20 11/22/20 11/22/20 10:20 10:20 15:00 WBC RBC 3.16 L Hgb 10.2 L Hct 29.9 L MCV 95 H Lymph % (Auto) Braxton % (Auto) Lymph # (Auto) Braxton # (Auto) Seg Neutrophils % Seg Neuts % (Manual) Nucleated RBC % Seg Neutrophils # Seg Neutrophils # Man Lymphocytes # (Manual) ABG pH 7.501 H POC ABG pCO2 POC ABG pO2 ABG Hemoglobin 10.5 L ABG Sodium 134.9 L ABG Potassium ABG Glucose 115 H Carboxyhemoglobin 0.4 L Sodium Potassium Chloride Carbon Dioxide BUN Creatinine Glucose POC Glucose Lactic Acid Calcium Phosphorus AST ALT CK-MB (CK-2) Rel Index Troponin T 0.078 H NT-Pro-B Natriuret Pep Serum Total Protein Total Protein Albumin Phxal-2-Ynqiarsco Gamma Globulins PEP Interpretation HDL Cholesterol Arterial Blood Glucose 115 H Arterial Blood Ionized Calcium 4.3 L Urine WBC (Auto) Urine Creatinine Hepatitis C Antibody 11/22/20 11/22/20 11/22/20 16:00 17:45 23:21 WBC RBC Hgb Hct MCV Lymph % (Auto) Braxton % (Auto) Lymph # (Auto) Braxton # (Auto) Seg Neutrophils % Seg Neuts % (Manual) Nucleated RBC % Seg Neutrophils # Seg Neutrophils # Man Lymphocytes # (Manual) ABG pH POC ABG pCO2 POC ABG pO2 ABG Hemoglobin ABG Sodium ABG Potassium ABG Glucose Carboxyhemoglobin Sodium Potassium Chloride Carbon Dioxide BUN Creatinine Glucose POC Glucose 107 H 115 H Lactic Acid Calcium Phosphorus AST ALT CK-MB (CK-2) Rel Index Troponin T NT-Pro-B Natriuret Pep Serum Total Protein Total Protein Albumin Xovmb-6-Whekdsuaq Gamma Globulins PEP Interpretation HDL Cholesterol Arterial Blood Glucose Arterial Blood Ionized Calcium Urine WBC (Auto) Urine Creatinine Hepatitis C Antibody Reactive A 11/23/20 11/23/20 11/23/20 03:03 05:33 10:00 WBC RBC 3.33 L Hgb 10.6 L Hct 32.2 L MCV 97 H Lymph % (Auto) Braxton % (Auto) 15.0 H Lymph # (Auto) Braxton # (Auto) 1.5 H Seg Neutrophils % Seg Neuts % (Manual) Nucleated RBC % Seg Neutrophils # Seg Neutrophils # Man Lymphocytes # (Manual) ABG pH POC ABG pCO2 POC ABG pO2 115.8 H ABG Hemoglobin 10.1 L ABG Sodium 135.8 L ABG Potassium ABG Glucose 98 H Carboxyhemoglobin 0.4 L Sodium Potassium Chloride Carbon Dioxide BUN Creatinine Glucose POC Glucose 106 H Lactic Acid Calcium Phosphorus AST ALT CK-MB (CK-2) Rel Index Troponin T NT-Pro-B Natriuret Pep Serum Total Protein Total Protein Albumin Qxroo-3-Qrlgopvfj Gamma Globulins PEP Interpretation HDL Cholesterol Arterial Blood Glucose 98 H Arterial Blood Ionized Calcium 4.4 L Urine WBC (Auto) Urine Creatinine Hepatitis C Antibody 11/23/20 11/23/20 11/23/20 10:00 10:00 12:12 WBC RBC Hgb Hct MCV Lymph % (Auto) Braxton % (Auto) Lymph # (Auto) Braxton # (Auto) Seg Neutrophils % Seg Neuts % (Manual) Nucleated RBC % Seg Neutrophils # Seg Neutrophils # Man Lymphocytes # (Manual) ABG pH POC ABG pCO2 POC ABG pO2 ABG Hemoglobin ABG Sodium ABG Potassium ABG Glucose Carboxyhemoglobin Sodium Potassium Chloride Carbon Dioxide BUN 22 H Creatinine Glucose 101 H POC Glucose 119 H Lactic Acid Calcium 7.9 L Phosphorus AST ALT CK-MB (CK-2) Rel Index Troponin T NT-Pro-B Natriuret Pep Serum Total Protein 5.3 L Total Protein 5.5 L Albumin 2.8 L 2.8 L Lnokm-4-Rwxjznytn 0.4 H Gamma Globulins 0.7 L PEP Interpretation see below H HDL Cholesterol Arterial Blood Glucose Arterial Blood Ionized Calcium Urine WBC (Auto) Urine Creatinine Hepatitis C Antibody 11/23/20 11/23/20 11/24/20 18:21 23:28 01:48 WBC RBC Hgb Hct MCV Lymph % (Auto) Braxton % (Auto) Lymph # (Auto) Braxton # (Auto) Seg Neutrophils % Seg Neuts % (Manual) Nucleated RBC % Seg Neutrophils # Seg Neutrophils # Man Lymphocytes # (Manual) ABG pH 7.281 L POC ABG pCO2 58.4 H POC ABG pO2 ABG Hemoglobin 11.8 L ABG Sodium ABG Potassium ABG Glucose 101 H Carboxyhemoglobin Sodium Potassium Chloride Carbon Dioxide BUN Creatinine Glucose POC Glucose 106 H 108 H Lactic Acid Calcium Phosphorus AST ALT CK-MB (CK-2) Rel Index Troponin T NT-Pro-B Natriuret Pep Serum Total Protein Total Protein Albumin Hyzkb-8-Lojwmsyoa Gamma Globulins PEP Interpretation HDL Cholesterol Arterial Blood Glucose 101 H Arterial Blood Ionized Calcium Urine WBC (Auto) Urine Creatinine Hepatitis C Antibody 11/24/20 11/24/20 11/25/20 09:58 09:58 00:29 WBC RBC Hgb Hct MCV Lymph % (Auto) Braxton % (Auto) Lymph # (Auto) Braxton # (Auto) Seg Neutrophils % Seg Neuts % (Manual) Nucleated RBC % Seg Neutrophils # Seg Neutrophils # Man Lymphocytes # (Manual) ABG pH POC ABG pCO2 POC ABG pO2 ABG Hemoglobin ABG Sodium ABG Potassium ABG Glucose Carboxyhemoglobin Sodium 148 H Potassium Chloride Carbon Dioxide 34 H D BUN Creatinine Glucose POC Glucose 111 H Lactic Acid 0.60 L Calcium Phosphorus AST ALT CK-MB (CK-2) Rel Index Troponin T NT-Pro-B Natriuret Pep Serum Total Protein Total Protein Albumin Lkgud-5-Mqzhofsrt Gamma Globulins PEP Interpretation HDL Cholesterol Arterial Blood Glucose Arterial Blood Ionized Calcium Urine WBC (Auto) Urine Creatinine Hepatitis C Antibody 11/25/20 11/25/20 11/25/20 05:48 08:18 08:18 WBC 13.2 H RBC 3.56 L Hgb 10.9 L Hct 34.0 L MCV 96 H Lymph % (Auto) Braxton % (Auto) Lymph # (Auto) Braxton # (Auto) Seg Neutrophils % Seg Neuts % (Manual) 98.0 H Nucleated RBC % 1.0 H Seg Neutrophils # Seg Neutrophils # Man 12.9 H Lymphocytes # (Manual) 0.0 L ABG pH POC ABG pCO2 POC ABG pO2 ABG Hemoglobin ABG Sodium ABG Potassium ABG Glucose Carboxyhemoglobin Sodium 147 H Potassium Chloride Carbon Dioxide 32 H BUN 26 H Creatinine Glucose 151 H POC Glucose 148 H Lactic Acid Calcium Phosphorus AST ALT CK-MB (CK-2) Rel Index Troponin T NT-Pro-B Natriuret Pep Serum Total Protein Total Protein 6.0 L Albumin 3.7 L Ewpfy-3-Fvactzucl Gamma Globulins PEP Interpretation HDL Cholesterol Arterial Blood Glucose Arterial Blood Ionized Calcium Urine WBC (Auto) Urine Creatinine Hepatitis C Antibody 11/25/20 11/25/20 11/25/20 11:34 18:03 23:15 WBC RBC Hgb Hct MCV Lymph % (Auto) Braxton % (Auto) Lymph # (Auto) Braxton # (Auto) Seg Neutrophils % Seg Neuts % (Manual) Nucleated RBC % Seg Neutrophils # Seg Neutrophils # Man Lymphocytes # (Manual) ABG pH POC ABG pCO2 POC ABG pO2 ABG Hemoglobin ABG Sodium ABG Potassium ABG Glucose Carboxyhemoglobin Sodium Potassium Chloride Carbon Dioxide BUN Creatinine Glucose POC Glucose 144 H 147 H 158 H Lactic Acid Calcium Phosphorus AST ALT CK-MB (CK-2) Rel Index Troponin T NT-Pro-B Natriuret Pep Serum Total Protein Total Protein Albumin Pgtrg-6-Paexhessf Gamma Globulins PEP Interpretation HDL Cholesterol Arterial Blood Glucose Arterial Blood Ionized Calcium Urine WBC (Auto) Urine Creatinine Hepatitis C Antibody 11/26/20 11/26/20 11/26/20 05:07 06:22 06:22 WBC 12.3 H RBC 3.52 L Hgb 11.1 L Hct 33.6 L MCV 95 H Lymph % (Auto) Braxton % (Auto) Lymph # (Auto) Braxton # (Auto) Seg Neutrophils % Seg Neuts % (Manual) Nucleated RBC % Seg Neutrophils # Seg Neutrophils # Man Lymphocytes # (Manual) ABG pH POC ABG pCO2 POC ABG pO2 ABG Hemoglobin ABG Sodium ABG Potassium ABG Glucose Carboxyhemoglobin Sodium Potassium 3.3 L Chloride 95.8 L Carbon Dioxide 33 H BUN 35 H Creatinine 1.4 H Glucose 185 H POC Glucose 184 H Lactic Acid Calcium Phosphorus AST ALT CK-MB (CK-2) Rel Index Troponin T 0.036 H D NT-Pro-B Natriuret Pep Serum Total Protein Total Protein 6.2 L Albumin 3.1 L Mhrrv-1-Olsgnjhad Gamma Globulins PEP Interpretation HDL Cholesterol Arterial Blood Glucose Arterial Blood Ionized Calcium Urine WBC (Auto) Urine Creatinine Hepatitis C Antibody 11/26/20 11/26/20 11/26/20 12:52 17:30 23:14 WBC RBC Hgb Hct MCV Lymph % (Auto) Braxton % (Auto) Lymph # (Auto) Braxton # (Auto) Seg Neutrophils % Seg Neuts % (Manual) Nucleated RBC % Seg Neutrophils # Seg Neutrophils # Man Lymphocytes # (Manual) ABG pH POC ABG pCO2 POC ABG pO2 ABG Hemoglobin ABG Sodium ABG Potassium ABG Glucose Carboxyhemoglobin Sodium Potassium Chloride Carbon Dioxide BUN Creatinine Glucose POC Glucose 170 H 133 H 149 H Lactic Acid Calcium Phosphorus AST ALT CK-MB (CK-2) Rel Index Troponin T NT-Pro-B Natriuret Pep Serum Total Protein Total Protein Albumin Epwwf-5-Pqmxxzuas Gamma Globulins PEP Interpretation HDL Cholesterol Arterial Blood Glucose Arterial Blood Ionized Calcium Urine WBC (Auto) Urine Creatinine Hepatitis C Antibody 11/27/20 11/27/20 11/27/20 05:35 08:03 12:02 WBC RBC Hgb Hct MCV Lymph % (Auto) Braxton % (Auto) Lymph # (Auto) Braxton # (Auto) Seg Neutrophils % Seg Neuts % (Manual) Nucleated RBC % Seg Neutrophils # Seg Neutrophils # Man Lymphocytes # (Manual) ABG pH POC ABG pCO2 POC ABG pO2 ABG Hemoglobin ABG Sodium ABG Potassium ABG Glucose Carboxyhemoglobin Sodium Potassium Chloride 97.0 L Carbon Dioxide 31 H BUN 41 H Creatinine 1.4 H Glucose 145 H POC Glucose 135 H 139 H Lactic Acid Calcium Phosphorus 2.20 L AST ALT CK-MB (CK-2) Rel Index Troponin T NT-Pro-B Natriuret Pep Serum Total Protein Total Protein Albumin Icuqg-4-Tcmzerglx Gamma Globulins PEP Interpretation HDL Cholesterol Arterial Blood Glucose Arterial Blood Ionized Calcium Urine WBC (Auto) Urine Creatinine Hepatitis C Antibody 11/27/20 11/28/20 11/28/20 18:41 05:26 06:08 WBC RBC Hgb Hct MCV Lymph % (Auto) Braxton % (Auto) Lymph # (Auto) Braxton # (Auto) Seg Neutrophils % Seg Neuts % (Manual) Nucleated RBC % Seg Neutrophils # Seg Neutrophils # Man Lymphocytes # (Manual) ABG pH POC ABG pCO2 POC ABG pO2 ABG Hemoglobin ABG Sodium ABG Potassium ABG Glucose Carboxyhemoglobin Sodium Potassium Chloride Carbon Dioxide BUN 45 H Creatinine 1.4 H Glucose 135 H POC Glucose 148 H 143 H Lactic Acid Calcium Phosphorus AST ALT CK-MB (CK-2) Rel Index Troponin T NT-Pro-B Natriuret Pep Serum Total Protein Total Protein Albumin Btgwd-4-Lvfoqsudj Gamma Globulins PEP Interpretation HDL Cholesterol Arterial Blood Glucose Arterial Blood Ionized Calcium Urine WBC (Auto) Urine Creatinine Hepatitis C Antibody 11/28/20 11/28/20 11/28/20 11:46 17:31 21:17 WBC RBC Hgb Hct MCV Lymph % (Auto) Braxton % (Auto) Lymph # (Auto) Braxton # (Auto) Seg Neutrophils % Seg Neuts % (Manual) Nucleated RBC % Seg Neutrophils # Seg Neutrophils # Man Lymphocytes # (Manual) ABG pH POC ABG pCO2 POC ABG pO2 ABG Hemoglobin ABG Sodium ABG Potassium ABG Glucose Carboxyhemoglobin Sodium Potassium Chloride Carbon Dioxide BUN Creatinine Glucose POC Glucose 132 H 156 H 122 H Lactic Acid Calcium Phosphorus AST ALT CK-MB (CK-2) Rel Index Troponin T NT-Pro-B Natriuret Pep Serum Total Protein Total Protein Albumin Eqfim-6-Ynufgtmmy Gamma Globulins PEP Interpretation HDL Cholesterol Arterial Blood Glucose Arterial Blood Ionized Calcium Urine WBC (Auto) Urine Creatinine Hepatitis C Antibody 11/29/20 11/29/20 11/29/20 00:06 04:43 05:15 WBC RBC Hgb Hct MCV Lymph % (Auto) Braxton % (Auto) Lymph # (Auto) Braxton # (Auto) Seg Neutrophils % Seg Neuts % (Manual) Nucleated RBC % Seg Neutrophils # Seg Neutrophils # Man Lymphocytes # (Manual) ABG pH POC ABG pCO2 POC ABG pO2 ABG Hemoglobin ABG Sodium ABG Potassium ABG Glucose Carboxyhemoglobin Sodium Potassium Chloride 97.7 L Carbon Dioxide BUN 56 H Creatinine 1.6 H Glucose 132 H POC Glucose 114 H 125 H Lactic Acid Calcium Phosphorus AST ALT CK-MB (CK-2) Rel Index Troponin T NT-Pro-B Natriuret Pep Serum Total Protein Total Protein Albumin Qghlr-5-Ypasuwtvt Gamma Globulins PEP Interpretation HDL Cholesterol Arterial Blood Glucose Arterial Blood Ionized Calcium Urine WBC (Auto) Urine Creatinine Hepatitis C Antibody 11/29/20 11/29/20 11/30/20 12:09 18:12 04:47 WBC RBC Hgb Hct MCV Lymph % (Auto) Braxton % (Auto) Lymph # (Auto) Braxton # (Auto) Seg Neutrophils % Seg Neuts % (Manual) Nucleated RBC % Seg Neutrophils # Seg Neutrophils # Man Lymphocytes # (Manual) ABG pH POC ABG pCO2 POC ABG pO2 ABG Hemoglobin ABG Sodium ABG Potassium ABG Glucose Carboxyhemoglobin Sodium Potassium Chloride Carbon Dioxide 31 H BUN 59 H Creatinine 1.6 H Glucose 122 H POC Glucose 142 H 132 H Lactic Acid Calcium Phosphorus AST ALT CK-MB (CK-2) Rel Index Troponin T NT-Pro-B Natriuret Pep Serum Total Protein Total Protein Albumin Eobeh-7-Eeduvidcg Gamma Globulins PEP Interpretation HDL Cholesterol Arterial Blood Glucose Arterial Blood Ionized Calcium Urine WBC (Auto) Urine Creatinine Hepatitis C Antibody 11/30/20 11/30/20 11/30/20 05:45 11:47 18:16 WBC RBC Hgb Hct MCV Lymph % (Auto) Braxton % (Auto) Lymph # (Auto) Braxton # (Auto) Seg Neutrophils % Seg Neuts % (Manual) Nucleated RBC % Seg Neutrophils # Seg Neutrophils # Man Lymphocytes # (Manual) ABG pH POC ABG pCO2 POC ABG pO2 ABG Hemoglobin ABG Sodium ABG Potassium ABG Glucose Carboxyhemoglobin Sodium Potassium Chloride Carbon Dioxide BUN Creatinine Glucose POC Glucose 118 H 123 H 126 H Lactic Acid Calcium Phosphorus AST ALT CK-MB (CK-2) Rel Index Troponin T NT-Pro-B Natriuret Pep Serum Total Protein Total Protein Albumin Nuikz-0-Jufgplhjo Gamma Globulins PEP Interpretation HDL Cholesterol Arterial Blood Glucose Arterial Blood Ionized Calcium Urine WBC (Auto) Urine Creatinine Hepatitis C Antibody 12/01/20 12/01/20 12/01/20 00:11 04:57 05:41 WBC RBC Hgb Hct MCV Lymph % (Auto) Braxton % (Auto) Lymph # (Auto) Braxton # (Auto) Seg Neutrophils % Seg Neuts % (Manual) Nucleated RBC % Seg Neutrophils # Seg Neutrophils # Man Lymphocytes # (Manual) ABG pH POC ABG pCO2 POC ABG pO2 ABG Hemoglobin ABG Sodium ABG Potassium ABG Glucose Carboxyhemoglobin Sodium Potassium Chloride Carbon Dioxide BUN 52 H Creatinine 1.4 H Glucose 121 H POC Glucose 117 H 120 H Lactic Acid Calcium Phosphorus AST ALT CK-MB (CK-2) Rel Index Troponin T NT-Pro-B Natriuret Pep Serum Total Protein Total Protein Albumin Phvee-6-Xbllxtbse Gamma Globulins PEP Interpretation HDL Cholesterol Arterial Blood Glucose Arterial Blood Ionized Calcium Urine WBC (Auto) Urine Creatinine Hepatitis C Antibody 12/01/20 12/02/20 12/02/20 23:35 06:02 08:09 WBC RBC Hgb Hct MCV Lymph % (Auto) Braxton % (Auto) Lymph # (Auto) Braxton # (Auto) Seg Neutrophils % Seg Neuts % (Manual) Nucleated RBC % Seg Neutrophils # Seg Neutrophils # Man Lymphocytes # (Manual) ABG pH POC ABG pCO2 POC ABG pO2 ABG Hemoglobin ABG Sodium ABG Potassium ABG Glucose Carboxyhemoglobin Sodium Potassium Chloride Carbon Dioxide BUN Creatinine Glucose POC Glucose 117 H 108 H 117 H Lactic Acid Calcium Phosphorus AST ALT CK-MB (CK-2) Rel Index Troponin T NT-Pro-B Natriuret Pep Serum Total Protein Total Protein Albumin Kkplm-3-Dcxxyuvdo Gamma Globulins PEP Interpretation HDL Cholesterol Arterial Blood Glucose Arterial Blood Ionized Calcium Urine WBC (Auto) Urine Creatinine Hepatitis C Antibody 12/02/20 12/02/20 12/02/20 09:40 11:33 17:34 WBC RBC Hgb Hct MCV Lymph % (Auto) Braxton % (Auto) Lymph # (Auto) Braxton # (Auto) Seg Neutrophils % Seg Neuts % (Manual) Nucleated RBC % Seg Neutrophils # Seg Neutrophils # Man Lymphocytes # (Manual) ABG pH POC ABG pCO2 POC ABG pO2 ABG Hemoglobin ABG Sodium ABG Potassium ABG Glucose Carboxyhemoglobin Sodium Potassium Chloride 97.6 L Carbon Dioxide 35 H BUN 45 H Creatinine Glucose POC Glucose 109 H 124 H Lactic Acid Calcium Phosphorus AST ALT CK-MB (CK-2) Rel Index Troponin T NT-Pro-B Natriuret Pep Serum Total Protein Total Protein Albumin Gactg-8-Sorttlqfq Gamma Globulins PEP Interpretation HDL Cholesterol Arterial Blood Glucose Arterial Blood Ionized Calcium Urine WBC (Auto) Urine Creatinine Hepatitis C Antibody 12/03/20 12/03/20 12/03/20 05:40 07:16 16:46 WBC RBC Hgb Hct MCV Lymph % (Auto) Braxton % (Auto) Lymph # (Auto) Braxton # (Auto) Seg Neutrophils % Seg Neuts % (Manual) Nucleated RBC % Seg Neutrophils # Seg Neutrophils # Man Lymphocytes # (Manual) ABG pH POC ABG pCO2 POC ABG pO2 ABG Hemoglobin ABG Sodium ABG Potassium ABG Glucose Carboxyhemoglobin Sodium Potassium Chloride Carbon Dioxide BUN 44 H Creatinine Glucose 117 H POC Glucose 115 H 106 H Lactic Acid Calcium Phosphorus AST ALT CK-MB (CK-2) Rel Index Troponin T NT-Pro-B Natriuret Pep Serum Total Protein Total Protein Albumin Hqkkq-3-Ekxrlmqwg Gamma Globulins PEP Interpretation HDL Cholesterol Arterial Blood Glucose Arterial Blood Ionized Calcium Urine WBC (Auto) Urine Creatinine Hepatitis C Antibody 12/03/20 12/04/20 12/04/20 21:55 07:53 11:43 WBC RBC Hgb Hct MCV Lymph % (Auto) Braxton % (Auto) Lymph # (Auto) Braxton # (Auto) Seg Neutrophils % Seg Neuts % (Manual) Nucleated RBC % Seg Neutrophils # Seg Neutrophils # Man Lymphocytes # (Manual) ABG pH POC ABG pCO2 POC ABG pO2 ABG Hemoglobin ABG Sodium ABG Potassium ABG Glucose Carboxyhemoglobin Sodium Potassium Chloride Carbon Dioxide BUN Creatinine Glucose POC Glucose 113 H 110 H 110 H Lactic Acid Calcium Phosphorus AST ALT CK-MB (CK-2) Rel Index Troponin T NT-Pro-B Natriuret Pep Serum Total Protein Total Protein Albumin Xelvd-7-Ltcajtxrc Gamma Globulins PEP Interpretation HDL Cholesterol Arterial Blood Glucose Arterial Blood Ionized Calcium Urine WBC (Auto) Urine Creatinine Hepatitis C Antibody 12/04/20 17:21 WBC RBC Hgb Hct MCV Lymph % (Auto) Braxton % (Auto) Lymph # (Auto) Braxton # (Auto) Seg Neutrophils % Seg Neuts % (Manual) Nucleated RBC % Seg Neutrophils # Seg Neutrophils # Man Lymphocytes # (Manual) ABG pH POC ABG pCO2 POC ABG pO2 ABG Hemoglobin ABG Sodium ABG Potassium ABG Glucose Carboxyhemoglobin Sodium Potassium Chloride Carbon Dioxide BUN Creatinine Glucose POC Glucose 135 H Lactic Acid Calcium Phosphorus AST ALT CK-MB (CK-2) Rel Index Troponin T NT-Pro-B Natriuret Pep Serum Total Protein Total Protein Albumin Nsvvn-1-Xaoileoan Gamma Globulins PEP Interpretation HDL Cholesterol Arterial Blood Glucose Arterial Blood Ionized Calcium Urine WBC (Auto) Urine Creatinine Hepatitis C Antibody
[2020-12-05] MEDS ORDERED: methylPREDNISolone Sod Succinate 40 MG/1 ML INJ IV NR (13:00)
--- NOTE | 2020-12-05 16:11 | Progress Note ---
Assessment and Plan Assessment and plan: Patient saturating well on 3 to 4 L of nasal cannula oxygen Wean as tolerated, closely monitor --Acute hypoxic respiratory failure/Requiring intubation 11/21/2020 s/p extubation 11/23/2020, patient is on noninvasive ventilation on high flow nasal cannula oxygen 25 L/35% FiO2/O2 sats 96% Clinically patient is more alert and awake responding appropriately Wean as tolerated --Acute exacerbation of COPD; Home oxygen dependent BiPAP as needed, wean as tolerated Continue nebulizers, tapering dose of IV steroids, supportive care Pulmonary following --Acute kidney injury; vasomotor nephropathy Gentle hydration closely monitor renal function Resolved, normal renal function, avoid nephrotoxins --Severe pulmonary hypertension; Management per pulmonary, continue supportive care --Acute metabolic encephalopathy 11/21 CT head shows no acute intracranial abnormality, sinus disease Continue supportive care --NSTEMI type II Presented with [facility] with elevated troponins cardiology patient had a stress test in 2019 which showed no significant ischemia, Echo; EF 50 to 55% severe pulmonary hypertension moderate mitral stenosis may benefit from HECTOR for evaluation of mitral valve when patient is stable Medical management per cardiology --Acute kidney injury; present on admission/resolved Vasomotor nephropathy Now resolved, normal renal function Avoid nephrotoxins, nephrology following --History of bladder cancer; Indwelling Paulson in place, supportive care Continue Flomax --Urinary tract infection; Completed antibiotics total 5 days --Dyslipidemia; Continue statin and low-cholesterol diet --Hypertension; moderate control We will continue current antihypertensives And as needed hydralazine --Hypernatremia ; resolved Patient was hyponatremia on admission ,probably overcorrection Increase oral intake of water/monitor electrolytes --Severe protein calorie malnutrition ; Hypoalbuminemia ,nutrition supplements Nutrition consult and supportive care --Nutrition; cardiac diet as tolerated --DVT prophylaxis; Subcu heparin, SCDs --GI prophylaxis; Continue Prevacid --Full CODE STATUS; We will closely monitor the patient and adjust the management as needed Consults and recommendations noted and appreciated Plan of care reviewed with the patient's nurse Plan of care reviewed with the patient's nurse PT OT when he comes off high flow oxygen DC planning per case management; considering LTAC placement The high probability of a clinically significant, sudden or life threatening deterioration of the [resp, cardiac, nephrology, metabolic] system(s) required my full and direct attention, intervention and personal management. The aggregate critical care time was [33] minutes. This time is in addition to time spent performing reported procedures but includes the following: [x] Data Review and interpretation [x] Patient assessment and monitoring of vital signs [x] Documentation [x] Medication orders and management Brief history and daily hospital course: 85-year-old male patient with past medical history of COPD on home oxygen, GERD, hypertension, asthma, hyperlipidemia, vasopressin, bladder cancer admitted for acute hypoxic respiratory failure, intubated on 11/21/2020 managed appropriately evaluated by pulmonary critical subsequently extubated on 11/23/2020, today patient is on high flow nasal cannula oxygen, pulmonary critical, cardiology and nephrology following the patient 11/23: Patient was extubated, currently on BiPAP Mild distress, wean as tolerated 11/25/2020; patient is on BiPAP Mild distress, noncommunicative 11/26/2020; patient is on intermittent BiPAP Currently on high flow nasal cannula oxygen 11/27/2020; patient is more alert and awake Will get swallow screen, if normal start pured diet Transfer the patient to [facility] 11/28/2020; patient is on high flow oxygen slightly better than yesterday Able to tolerate mechanical soft diet when the family comes and helps him DC planning, considering LTAC placement 11/29 Still on HFNC oxygen 11/30 Still on HFNC oxygen 12/01 on 35 liters O2 714/21; patient remains on high flow nasal cannula oxygen requiring 25 L/FiO2 35%/O2 sats 96 Wean as tolerated, awaiting LTAC placement Patient is hemodynamically and clinically stable to be transferred out of [facility] to cardiac telemetry or medical floor with remote telemetry today. 12/04/2020; remains on high flow oxygen 25 L/35%/96% O2 sats Wean as tolerated, pending LTAC placement consider PT OT once patient's respiratory status is stable 12/05/2020; patient feels slightly better more alert and awake Responding to simple questions appropriately, titrated the oxygen Today patient is requiring 3 to 4 L of nasal cannula oxygen Significantly improved from yesterday when he needed 25 L We will closely monitor Physical therapy evaluation and treatment, home oxygen evaluation prior to discharge History Interval history: I have seen and examined the patient at the bedside this morning Patient's chart and medications reviewed Patient is more alert and awake slightly better Responding to simple questions Patient was on high flow nasal cannula oxygen 25 L yesterday Slowly weaned to 3 L this afternoon We will closely monitor his oxygen requirement And O2 evaluation prior to discharge Vital signs noted Hospitalist Physical - Constitutional Vitals: Temp Pulse Resp BP Pulse Ox 98.6 F 63 18 157/69 98 12/05/20 12:19 12/05/20 14:16 12/05/20 14:16 12/05/20 12:19 12/05/20 12:19 General appearance: Present: no acute distress, well-nourished, obese, other (On high flow oxygen) - EENT Eyes: Present: PERRL, EOM intact - Neck Neck: Present: supple, normal ROM - Respiratory Respiratory effort: normal Respiratory: bilateral: diminished, negative: rales, rhonchi, wheezing - Cardiovascular Rhythm: regular Heart Sounds: Present: S1 & S2 - Extremities Extremities: no ischemia, No edema - Abdominal General gastrointestinal: soft, non-tender, non-distended, normal bowel sounds - Integumentary Integumentary: Present: clear, warm - Psychiatric Psychiatric: appropriate mood/affect, cooperative - Neurologic Neurologic: CNII-XII intact, moves all extremities HEART Score - HEART Score Troponin: Troponin T 0.021 ng/mL (0.00-0.029) 11/29/20 04:43 Results - Labs CBC & Chem 7: 11/28/20 09:21 12/03/20 05:40 Labs: Laboratory Last Values WBC 9.8 K/mm3 (4.5-11.0) 11/28/20 09:21 RBC 4.01 M/mm3 (3.65-5.03) 11/28/20 09:21 Hgb 12.3 gm/dl (11.8-15.2) 11/28/20 09:21 Hct 37.6 % (35.5-45.6) 11/28/20 09:21 MCV 94 fl (84-94) 11/28/20 09:21 MCH 31 pg (28-32) 11/28/20 09:21 MCHC 33 % (32-34) 11/28/20 09:21 RDW 15.1 % (13.2-15.2) 11/28/20 09:21 Plt Count 369 K/mm3 (140-440) 11/28/20 09:21 Lymph % (Auto) 16.1 % (13.4-35.0) 11/23/20 10:00 Hickman % (Auto) 15.0 % (0.0-7.3) H 11/23/20 10:00 Eos % (Auto) 1.0 % (0.0-4.3) 11/23/20 10:00 Baso % (Auto) 0.5 % (0.0-1.8) 11/23/20 10:00 Lymph # (Auto) 1.6 K/mm3 (1.2-5.4) 11/23/20 10:00 Hickman # (Auto) 1.5 K/mm3 (0.0-0.8) H 11/23/20 10:00 Eos # (Auto) 0.1 K/mm3 (0.0-0.4) 11/23/20 10:00 Baso # (Auto) 0.1 K/mm3 (0.0-0.1) 11/23/20 10:00 Add Manual Diff Complete 11/25/20 08:18 Total Counted 100 11/25/20 08:18 Seg Neutrophils % Rn Triage 11/25/20 08:18 Seg Neuts % (Manual) 98.0 % (40.0-70.0) H 11/25/20 08:18 Monocytes % (Manual) 2.0 % (0.0-7.3) 11/25/20 08:18 Nucleated RBC % 1.0 % (0.0-0.9) H 11/25/20 08:18 Seg Neutrophils # 6.6 K/mm3 (1.8-7.7) 11/23/20 10:00 Seg Neutrophils # Man 12.9 K/mm3 (1.8-7.7) H 11/25/20 08:18 Band Neutrophils # 0.0 K/mm3 11/25/20 08:18 Lymphocytes # (Manual) 0.0 K/mm3 (1.2-5.4) L 11/25/20 08:18 Abs React Lymphs (Man) 0.0 K/mm3 11/25/20 08:18 Monocytes # (Manual) 0.3 K/mm3 (0.0-0.8) 11/25/20 08:18 Eosinophils # (Manual) 0.0 K/mm3 (0.0-0.4) 11/25/20 08:18 Basophils # (Manual) 0.0 K/mm3 (0.0-0.1) 11/25/20 08:18 Metamyelocytes # 0.0 K/mm3 11/25/20 08:18 Myelocytes # 0.0 K/mm3 11/25/20 08:18 Promyelocytes # 43.8 K/mm3 11/25/20 08:18 Blast Cells # 0.0 K/mm3 11/25/20 08:18 WBC Morphology Not Reportable 11/25/20 08:18 Hypersegmented Neuts Not Reportable 11/25/20 08:18 Hyposegmented Neuts Not Reportable 11/25/20 08:18 Hypogranular Neuts Not Reportable 11/25/20 08:18 Smudge Cells Not Reportable 11/25/20 08:18 Toxic Granulation Few 11/25/20 08:18 Toxic Vacuolation Not Reportable 11/25/20 08:18 Dohle Bodies Not Reportable 11/25/20 08:18 Pelger-Huet Anomaly Not Reportable 11/25/20 08:18 Liang Rods Not Reportable 11/25/20 08:18 Platelet Estimate Consistent w auto 11/25/20 08:18 Clumped Platelets Not Reportable 11/25/20 08:18 Plt Clumps, EDTA Not Reportable 11/25/20 08:18 Large Platelets Not Reportable 11/25/20 08:18 Giant Platelets Not Reportable 11/25/20 08:18 Platelet Satelliting Not Reportable 11/25/20 08:18 Plt Morphology Comment Not Reportable 11/25/20 08:18 RBC Morphology Not Reportable 11/25/20 08:18 Dimorphic RBCs Not Reportable 11/25/20 08:18 Polychromasia Not Reportable 11/25/20 08:18 Hypochromasia 1+ 11/25/20 08:18 Poikilocytosis Not Reportable 11/25/20 08:18 Anisocytosis Not Reportable 11/25/20 08:18 Microcytosis Not Reportable 11/25/20 08:18 Macrocytosis Not Reportable 11/25/20 08:18 Spherocytes Not Reportable 11/25/20 08:18 Pappenheimer Bodies Not Reportable 11/25/20 08:18 Sickle Cells Not Reportable 11/25/20 08:18 Target Cells 1+ 11/25/20 08:18 Tear Drop Cells Not Reportable 11/25/20 08:18 Ovalocytes Not Reportable 11/25/20 08:18 Helmet Cells Not Reportable 11/25/20 08:18 Miranda-Halbur Bodies Not Reportable 11/25/20 08:18 [place] Rings Not Reportable 11/25/20 08:18 Morton Cells Not Reportable 11/25/20 08:18 Bite Cells Not Reportable 11/25/20 08:18 Crenated Cell Not Reportable 11/25/20 08:18 Elliptocytes Not Reportable 11/25/20 08:18 Acanthocytes (Spur) Not Reportable 11/25/20 08:18 Rouleaux Not Reportable 11/25/20 08:18 Hemoglobin C Crystals Not Reportable 11/25/20 08:18 Schistocytes Not Reportable 11/25/20 08:18 Malaria parasites Not Reportable 11/25/20 08:18 Fuad Bodies Not Reportable 11/25/20 08:18 Hem Pathologist Commnt No 11/25/20 08:18 PT 13.5 Sec. (12.2-14.9) 11/21/20 20:50 INR 0.98 (0.87-1.13) 11/21/20 20:50 APTT 32.1 Sec. (24.2-36.6) 11/21/20 20:50 ABG pH 7.281 (7.320-7.450) L 11/24/20 01:48 POC ABG pCO2 58.4 mmHg (32.0-48.0) H 11/24/20 01:48 POC ABG pO2 98.1 mmHg (83-108) 11/24/20 01:48 POC ABG HCO3 26.9 11/24/20 01:48 ABG O2 Saturation 96.9 (0-100) 11/24/20 01:48 POC ABG Base Excess -0.7 11/24/20 01:48 ABG Hemoglobin 11.8 (12.0-17.5) L 11/24/20 01:48 ABG Oxyhemoglobin 95.9 (94-98) 11/24/20 01:48 ABG Methemoglobin 0.3 (0.0-1.5) 11/24/20 01:48 ABG Sodium 140.6 mmol/L (136.0-145.0) 11/24/20 01:48 ABG Potassium 3.9 mmol/L (3.40-4.50) 11/24/20 01:48 ABG Chloride 104.0 mmol/L (98-107) 11/24/20 01:48 ABG Glucose 101 mg/dL (65-95) H 11/24/20 01:48 Carboxyhemoglobin 0.7 (0.5-1.5) 11/24/20 01:48 FiO2 % 50.0 11/24/20 01:48 Sodium 138 mmol/L (137-145) 12/03/20 05:40 Potassium 4.5 mmol/L (3.6-5.0) 12/03/20 05:40 Chloride 99.2 mmol/L (98-107) 12/03/20 05:40 Carbon Dioxide 28 mmol/L (22-30) D 12/03/20 05:40 Anion Gap 15 mmol/L 12/03/20 05:40 BUN 44 mg/dL (9-20) H 12/03/20 05:40 Creatinine 1.2 mg/dL (0.8-1.3) 12/03/20 05:40 Estimated GFR 57 ml/min 12/03/20 05:40 BUN/Creatinine Ratio 37 % 12/03/20 05:40 Glucose 117 mg/dL (75-100) H 12/03/20 05:40 POC Glucose 135 mg/dL (70-105) H 12/04/20 17:21 Lactic Acid 0.60 mmol/L (0.7-2.0) L 11/24/20 09:58 Calcium 9.0 mg/dL (8.4-10.2) 12/03/20 05:40 Phosphorus 2.20 mg/dL (2.5-4.5) L 11/27/20 08:03 Magnesium 2.10 mg/dL (1.7-2.3) 11/27/20 08:03 Total Bilirubin 0.30 mg/dL (0.1-1.2) 11/26/20 06:22 AST 18 units/L (5-40) 11/26/20 06:22 ALT 22 units/L (7-56) 11/26/20 06:22 Alkaline Phosphatase 55 units/L (35-129) 11/26/20 06:22 Total Creatine Kinase 132 units/L (55-170) 11/22/20 10:20 CK-MB (CK-2) 3.3 ng/mL (0.0-4.0) 11/22/20 10:20 CK-MB (CK-2) Rel Index 2.5 (0-4) 11/22/20 10:20 Troponin T 0.021 ng/mL (0.00-0.029) 11/29/20 04:43 NT-Pro-B Natriuret Pep 6998 pg/mL (0-900) H 11/21/20 20:50 Serum Total Protein 5.3 g/dL (6.1-8.1) L 11/23/20 10:00 Total Protein 6.2 g/dL (6.3-8.2) L 11/26/20 06:22 Albumin 3.1 g/dL (3.9-5) L 11/26/20 06:22 Albumin/Globulin Ratio 1.0 % 11/26/20 06:22 Ujfqu-7-Vyqnsvptu 0.4 g/dL (0.2-0.3) H 11/23/20 10:00 Rrfuu-7-Wiohioqyu 0.8 g/dL (0.5-0.9) 11/23/20 10:00 Beta Globulins 0.3 g/dL (0.2-0.5) 11/23/20 10:00 Gamma Globulins 0.7 g/dL (0.8-1.7) L 11/23/20 10:00 Abnorm Protein Band 1 see below 11/23/20 10:00 PEP Interpretation see below H 11/23/20 10:00 Triglycerides 84 mg/dL (2-149) 11/21/20 20:50 Cholesterol 125 mg/dL (50-199) 11/21/20 20:50 LDL Cholesterol Direct 57 mg/dL (50-130) 11/21/20 20:50 HDL Cholesterol 60 mg/dL (40-59) H 11/21/20 20:50 Cholesterol/HDL Ratio 2.08 % 11/21/20 20:50 TSH 1.290 mlU/mL (0.270-4.200) 11/21/20 20:50 Free T4 1.18 ng/dL (0.76-1.46) 11/21/20 20:50 Arterial Blood Glucose 101 mg/dL (65-95) H 11/24/20 01:48 Arterial Blood Ionized Calcium 4.7 mg/dL (4.6-5.3) 11/24/20 01:48 Urine Color Yellow (Yellow) 11/22/20 05:00 Urine Turbidity Slightly-cloudy (Clear) 11/22/20 05:00 Urine pH 5.0 (5.0-7.0) 11/22/20 05:00 Ur Specific [place] 1.016 (1.003-1.030) 11/22/20 05:00 Urine Protein 30 mg/dl mg/dL (Negative) 11/22/20 05:00 Urine Glucose (UA) Neg mg/dL (Negative) 11/22/20 05:00 Urine Ketones Neg mg/dL (Negative) 11/22/20 05:00 Urine Blood Lg (Negative) 11/22/20 05:00 Urine Nitrite Neg (Negative) 11/22/20 05:00 Urine Bilirubin Neg (Negative) 11/22/20 05:00 Urine Urobilinogen < 2.0 mg/dL (<2.0) 11/22/20 05:00 Ur Leukocyte Esterase Tr (Negative) 11/22/20 05:00 Urine WBC (Auto) 33.0 /HPF (0.0-6.0) H 11/22/20 05:00 Urine RBC (Auto) 49.0 /HPF (0.0-6.0) 11/22/20 05:00 U Epithel Cells (Auto) 1.0 /HPF (0-13.0) 11/22/20 05:00 Hyaline Casts 4 /LPF 11/22/20 05:00 Urine Mucus 1+ /HPF 11/22/20 05:00 Urine Eosinophils None seen (None Seen) 11/24/20 17:55 Urine Creatinine 158.2 mg/dL (0.1-20.0) H 11/22/20 00:11 Urine Sodium 39 mmol/L 11/22/20 00:11 Fraction Sodium Excret 0.3 11/22/20 00:11 Urine Opiates Screen Presumptive negative 11/22/20 00:11 Urine Methadone Screen Presumptive negative 11/22/20 00:11 Ur Barbiturates Screen Presumptive negative 11/22/20 00:11 Ur Phencyclidine Scrn Presumptive negative 11/22/20 00:11 Ur Amphetamines Screen Presumptive negative 11/22/20 00:11 U Benzodiazepines Scrn Presumptive negative 11/22/20 00:11 Urine Cocaine Screen Presumptive negative 11/22/20 00:11 U Marijuana (THC) Screen Presumptive negative 11/22/20 00:11 Drugs of Abuse Note Disclamer 11/22/20 00:11 Plasma/Serum Alcohol < 0.01 % (0-0.07) 11/21/20 20:50 Proteinase 3 (PR3) Ab <1.0 AI (<1.0) 11/22/20 16:00 Myeloperoxidase Ab <1.0 AI (<1.0) 11/22/20 16:00 Double Strand DNA Ab 1 IU/mL (<=4) 11/22/20 16:00 Complement C3 93 mg/dL () 11/22/20 16:00 Complement C4 25 mg/dL () 11/22/20 16:00 Coronavirus (PCR) Negative (Negative) 11/23/20 09:30 Hepatitis A IgM Ab Non-reactive (NonReactive) 11/22/20 16:00 Hep Bs Antigen Non-reactive (Negative) 11/22/20 16:00 Hep B Core IgM Ab Non-reactive (NonReactive) 11/22/20 16:00 Hepatitis C Antibody Reactive (NonReactive) A 11/22/20 16:00 Paulson/IV: Voiding Method Indwelling Catheter Active Medications - Current Medications Current Medications: Generic Name Dose Route Start Last Admin Trade Name Freq PRN Reason Stop Dose Admin Acetaminophen 650 mg 11/23/20 15:29 12/02/20 14:30 Acetaminophen 325 Mg Tab PO 650 mg Q4H PRN Administration Pain, Mild (1-3) Albuterol 2.5 mg 11/22/20 01:19 Albuterol 2.5 Mg/3 Ml Nebu IH Q4HRT PRN Shortness Of Breath Albuterol/Ipratropium 1 ampul 11/22/20 02:00 12/05/20 14:16 Ipratropium/Albuterol Sulfate 3 Ml Ampul.Neb IH 1 ampul Q6HRT TERESA Administration Lipase/Protease/Amylase 1 each 11/22/20 09:07 Lipase 10,500/Protease 25,000/Amylase 43,750 (Units) Dr Cyr FEEDTUBE PRN PRN For Clogged Feeding Tube Aspirin 81 mg 11/23/20 10:00 12/05/20 11:20 Aspirin 81 Mg Tab Chew PO 81 mg QDAY TERESA Administration Atorvastatin Calcium 40 mg 11/22/20 22:00 12/04/20 22:30 Atorvastatin 40 Mg Tab PO 40 mg QHS TERESA Administration Budesonide 0.5 mg 11/24/20 14:55 12/05/20 08:41 Budesonide 0.5 Mg/2 Ml Nebu IH 0.5 mg Q12HRT TERESA Administration Carvedilol 12.5 mg 12/03/20 22:00 12/05/20 11:20 Carvedilol 12.5 Mg Tab PO 12.5 mg BID TERESA Administration Heparin Sodium (Porcine) 5,000 unit 11/22/20 06:00 12/05/20 15:47 Heparin 5,000 Unit/1 Ml Vial SUB-Q 5,000 unit Q8HR TERESA Administration Hydralazine HCl 10 mg 11/22/20 01:24 12/02/20 10:54 Hydralazine 20 Mg/1 Ml Inj IV 10 mg Q6H PRN Administration Blood Pressure Lansoprazole 30 mg 11/28/20 10:00 12/05/20 11:20 Lansoprazole 30 Mg Solutab FEEDTUBE 30 mg QDAY TERESA Administration Nitroglycerin 0.4 mg 11/22/20 01:25 Nitroglycerin 0.4 Mg Tab Subl SL Q5M PRN Chest Pain Ondansetron HCl 4 mg 11/22/20 01:19 Ondansetron 4 Mg/2 Ml Inj IV Q8H PRN Nausea And Vomiting Prednisone 60 mg 12/06/20 10:00 Prednisone 20 Mg Tab PO QDAY TERESA Quetiapine Fumarate 25 mg 11/27/20 12:00 12/05/20 11:20 Quetiapine 25 Mg Tab PO 25 mg BID TERESA Administration Senna/Docusate Sodium 1 tab 11/22/20 10:00 12/05/20 11:21 Sennosides/Docusate Sodium 8.6/50 Mg Tab FEEDTUBE 1 tab BID TERESA Administration Simple Syrup 15 ml 11/22/20 09:07 Simple Syrup 15 Ml FEEDTUBE PRN PRN Hypoglycemia Simple Syrup 30 ml 11/22/20 09:07 Simple Syrup 15 Ml FEEDTUBE PRN PRN Hypoglycemia Sodium Bicarbonate 325 mg 11/22/20 09:07 Sodium Bicarbonate 325 Mg Tab FEEDTUBE PRN PRN For Clogged Feeding Tube Sodium Chloride 10 ml 11/22/20 10:00 12/04/20 22:27 Sodium Chloride 0.9% 10 Ml Flush Syringe IV 10 ml BID TERESA Administration Sodium Chloride 10 ml 11/22/20 01:19 Sodium Chloride 0.9% 10 Ml Flush Syringe IV PRN PRN LINE FLUSH Tamsulosin HCl 0.4 mg 11/22/20 10:00 12/05/20 11:20 Tamsulosin 0.4 Mg Cap PO 0.4 mg DAILY TERESA Administration Nutrition/Malnutrition Assess - Dietary Evaluation Nutrition/Malnutrition Findings: Nutrition Notes Start: 11/22/20 08:53 Freq: Status: Active Protocol: Document 12/05/20 12:10 IGOR (Rec: 12/05/20 12:13 IGOR [email or web address]) Nutrition Notes Initial or Follow up Reassessment Current Diagnosis Acute Kidney Injury,COPD, Coronary Artery Disease, Diabetes,Hypertension,Heart Failure,Respiratory Failure, Hyperlipidemia Other Pertinent Diagnosis AMS Current Diet [facility] soft Labs/Tests Reviewed Pertinent Medications Solu-Medrol Height 5 ft 3 in Weight 82.9 kg [place] Body Weight (kg) 56.36 BMI 32.3 Weight Status Obese Subjective/Other Information FU for intakes. Pt eating 10% of meals and drinking soup from home. Pt does not like the ONS. Percent of energy/protein needs met: Negligible Burn Absent Trauma Absent Current % PO Negligible Minimum of two criteria No physical signs of malnutrition #1 Nutrition Diagnosis Inadequate oral intake Diagnosis Progress(for reassessment Continues documentation) Is patient on ventilator? No Is Patient Ambulatory and/or Out of Bed No REE-([facility]-confined to bed) 1692.216 Kcal/Kg value to use for calculation 16 Approximate Energy Requirements Using 1326 kcal/Kg Calculation Used for Recommendations Kcal/kg Additional Notes protein needs: 69-82g (1-1.2g/ kg AdjBW: 69kg) fluid needs: 1 ml/kcal or per MD order Nutrition Intervention Change Diet Order: Continue Add Supplement/Snack (indicate name/kcal D/c /protein ) Goal #1 Meet at least 75% of energy and protein needs via PO and ONS Anticipated Discharge Needs: mech soft, consistent CHO Follow-Up By: 12/08/20 Additional Comments FU for intakes and ONS tolerance
[2020-12-05] MEDS: NITROGLYCERIN 0.4 MG TAB SUBL SL PRN (22:57)
[2020-12-06] MEDS: IPRATROPIUM/ALBUTEROL SULFATE 3 ML AMPUL.NEB IH SCH ×4 (02:30→20:06)
[2020-12-06] MEDS: HEPARIN 5,000 UNIT/1 ML VIAL SUB-Q SCH ×3 (05:19→21:20)
[2020-12-06] MEDS: NITROGLYCERIN 0.4 MG TAB SUBL SL PRN (05:22)
[2020-12-06] MEDS: BUDESONIDE 0.5 MG/2 ML NEBU IH SCH ×2 (07:57→20:06)
[2020-12-06] MEDS: predniSONE 20 MG TAB PO SCH (09:13)
[2020-12-06] MEDS: TAMSULOSIN 0.4 MG CAP PO SCH (09:13)
[2020-12-06] MEDS: carvediloL 12.5 MG TAB PO SCH ×2 (09:13→21:21)
[2020-12-06] MEDS: ASPIRIN 81 MG TAB CHEW PO SCH (09:13)
[2020-12-06] MEDS: LANSOPRAZOLE 30 MG SOLUTAB FEEDTUBE SCH (09:13)
[2020-12-06] MEDS: QUEtiapine 25 MG TAB PO SCH ×2 (09:13→21:21)
[2020-12-06] MEDS: SENNOSIDES/DOCUSATE SODIUM 8.6/50 MG TAB FEEDTUBE SCH ×2 (09:14→21:20)
--- NOTE | 2020-12-06 09:46 | Progress Note ---
Assessment and Plan 85 y/o [place] male admitted with acute hypoxic respiratory failure. 12/06/20: Steroid taper as follows: 60 daily for 5 days, 40 daily for 5 days, 20 daily for 5 days, 10 daily for 5 days. Resume whatever home regimen patient was on at home. Wean Oxygen for sats >88%, likely patient will be fine on 2-3 liters, does not need 4. Will sign off. Call if questions. 12/05/20: Change to oral steroids starting tomorrow with prolonged taper. Likely dischargeable over the weekend. 12/04/20: LTACH denied. Continue to wean. Continue IV steroids. 12/03/20: Follow up with CM in regards to LTACH. Continue IV steroids. Wean FiO2 as tolerated. PT/OT if not already evaluated. Patient stable enough to transfer to floor. 12/02/20: CM still waiting to hear back from LTACH in regards to auth. Continue to wean FiO2 as tolerated for sats >88%. Continue IV steroids. 12/01/20: Wean HFNC for sats >88%. Spoke with CM about checking on LTACH but patient may be able to be weaned further now while in house. Will speak with RT about this. If placed on salter, may need to consider transfer to medical/surgical floor with remote tele. 11/28/20: Continue to wean HFNC. Agree with holding Precedex, can increase seroquel if needed to help with mood. Hopeful that over the weekend will be down to nasal cannula and can transfer to the floor. CM working on LTACH evaluation. Patient is stable for transfer, if and when accepted. 11/27/20: Will transfer to step down today. Agree with bedside swallow eval now that patient is more awake. Will try bID seroquel to help with mood and agitation. Hopeful Cr has stablized. Continue steroids at 40q8. Consider LTACH evaluation 11/26/20: 11/25/20: Continue bipap for right now. Added precedex and stopped ativan as this may be worsening agitation. Ok with haldol use. Continue daily diuretics to keep patient net negative. Continue ICU monitoring for now. Renal function is better. Guarded prognosis. 11/23/20: Wean sedation to off. If patient can tolerate being off sedation, will attempt PSV trial, otherwise, will likely have to just stop sedation and extubate, will have bipap ready for as needed purposes. Needs chemistry to assess renal function. Out put was good. 1. Repeat ABG later this afternoon and wean FIO2 according (>88%) 2. Stop sedation, need to assess mental state 3. Follow up renal function and urine output. 4. Guarded prognosis, this is likely acute on chronic respiratory failure. cct 31 minutes. Subjective Date of service: 12/06/20 Principal diagnosis: Acute respiratory failure Interval history: No acute events. Bumped up to 4 liters but does not need this. Sat documented at 100. Now on oral steroids. Objective Vital Signs - 12hr 12/05/20 12/06/20 12/06/20 22:57 00:55 02:30 Temperature 98.7 F Pulse Rate 65 68 Pulse Rate [ 84 Anterior Bilateral Throughout] Pulse Rate [ From Monitor] Pulse Rate [ Right Brachial] Respiratory 20 Rate Respiratory 16 Rate [Anterior Bilateral Throughout] Blood Pressure 144/58 138/57 O2 Sat by Pulse 97 Oximetry 12/06/20 12/06/20 12/06/20 04:58 05:22 06:23 Temperature 98.0 F Pulse Rate 67 84 84 Pulse Rate [ Anterior Bilateral Throughout] Pulse Rate [ 84 From Monitor] Pulse Rate [ Right Brachial] Respiratory 18 24 Rate Respiratory Rate [Anterior Bilateral Throughout] Blood Pressure 119/53 138/57 O2 Sat by Pulse 91 94 Oximetry 12/06/20 12/06/20 09:23 09:37 Temperature 98.2 F 98.6 F Pulse Rate 69 Pulse Rate [ Anterior Bilateral Throughout] Pulse Rate [ From Monitor] Pulse Rate [ 80 Right Brachial] Respiratory 20 22 Rate Respiratory Rate [Anterior Bilateral Throughout] Blood Pressure 150/60 146/57 O2 Sat by Pulse 99 Oximetry Constitutional: no acute distress, alert Eyes: non-icteric ENT: oropharynx moist Neck: supple, other (large in circumference) Effort: normal Ascultation: Bilateral: clear, diminished breath sounds, wheezes Percussion: Bilateral: not dull Cardiovascular: other (tachy, no mrg) Gastrointestinal: normoactive bowel sounds, soft, non-tender, non-distended Extremities: no cyanosis, no edema, pink and warm Neurologic: normal mental status, non-focal exam, pupils equal and round Psychiatric: mood appropriate, affect normal CBC and BMP: 11/28/20 09:21 12/03/20 05:40 ABG, PT/INR, D-dimer: ABG ABG pH 7.281 (7.320-7.450) L 11/24/20 01:48 POC ABG pCO2 58.4 mmHg (32.0-48.0) H 11/24/20 01:48 POC ABG pO2 98.1 mmHg (83-108) 11/24/20 01:48 POC ABG HCO3 26.9 11/24/20 01:48 ABG O2 Saturation 96.9 (0-100) 11/24/20 01:48 PT/INR, D-dimer PT 13.5 Sec. (12.2-14.9) 11/21/20 20:50 INR 0.98 (0.87-1.13) 11/21/20 20:50 Abnormal lab findings: Abnormal Labs 11/21/20 11/21/20 11/22/20 20:50 20:50 00:11 WBC RBC 3.48 L Hgb 11.1 L Hct 34.3 L MCV 99 H Lymph % (Auto) 6.8 L [place] % (Auto) Lymph # (Auto) 0.6 L [place] # (Auto) Seg Neutrophils % 85.5 H Seg Neuts % (Manual) Nucleated RBC % Seg Neutrophils # Seg Neutrophils # Man Lymphocytes # (Manual) ABG pH POC ABG pCO2 POC ABG pO2 ABG Hemoglobin ABG Sodium ABG Potassium ABG Glucose Carboxyhemoglobin Sodium 130 L Potassium 7.3 H* Chloride 91.1 L Carbon Dioxide BUN 40 H Creatinine 2.1 H Glucose 195 H POC Glucose Lactic Acid Calcium Phosphorus AST 91 H ALT 65 H CK-MB (CK-2) Rel Index 4.1 H Troponin T 0.045 H NT-Pro-B Natriuret Pep 6998 H Serum Total Protein Total Protein Albumin 3.7 L Eivsl-6-Zfdezopva Gamma Globulins PEP Interpretation HDL Cholesterol 60 H Arterial Blood Glucose Arterial Blood Ionized Calcium Urine WBC (Auto) Urine Creatinine 158.2 H Hepatitis C Antibody 11/22/20 11/22/20 11/22/20 00:23 00:40 01:37 WBC 14.1 H RBC 3.53 L Hgb 11.0 L Hct 34.1 L MCV 97 H Lymph % (Auto) 12.3 L [place] % (Auto) 14.2 H Lymph # (Auto) [place] # (Auto) 2.0 H Seg Neutrophils % 72.3 H Seg Neuts % (Manual) Nucleated RBC % Seg Neutrophils # 10.2 H Seg Neutrophils # Man Lymphocytes # (Manual) ABG pH POC ABG pCO2 POC ABG pO2 ABG Hemoglobin ABG Sodium ABG Potassium ABG Glucose Carboxyhemoglobin Sodium Potassium 5.1 H D Chloride Carbon Dioxide BUN Creatinine Glucose POC Glucose Lactic Acid 2.10 H* Calcium Phosphorus AST ALT CK-MB (CK-2) Rel Index Troponin T NT-Pro-B Natriuret Pep Serum Total Protein Total Protein Albumin Oenys-0-Atozytgge Gamma Globulins PEP Interpretation HDL Cholesterol Arterial Blood Glucose Arterial Blood Ionized Calcium Urine WBC (Auto) Urine Creatinine Hepatitis C Antibody 11/22/20 11/22/20 11/22/20 01:37 03:20 05:00 WBC RBC Hgb Hct MCV Lymph % (Auto) [place] % (Auto) Lymph # (Auto) [place] # (Auto) Seg Neutrophils % Seg Neuts % (Manual) Nucleated RBC % Seg Neutrophils # Seg Neutrophils # Man Lymphocytes # (Manual) ABG pH POC ABG pCO2 58.4 H POC ABG pO2 ABG Hemoglobin 11.1 L ABG Sodium 135.1 L ABG Potassium 5.0 H ABG Glucose Carboxyhemoglobin Sodium Potassium 5.1 H Chloride Carbon Dioxide 31 H BUN 40 H Creatinine 2.0 H Glucose 49 L POC Glucose Lactic Acid Calcium Phosphorus AST ALT CK-MB (CK-2) Rel Index Troponin T NT-Pro-B Natriuret Pep Serum Total Protein Total Protein Albumin Ejljx-9-Yuzpkgprc Gamma Globulins PEP Interpretation HDL Cholesterol Arterial Blood Glucose Arterial Blood Ionized Calcium Urine WBC (Auto) 33.0 H Urine Creatinine Hepatitis C Antibody 11/22/20 11/22/20 11/22/20 05:00 05:00 05:00 WBC RBC Hgb Hct MCV Lymph % (Auto) [place] % (Auto) Lymph # (Auto) [place] # (Auto) Seg Neutrophils % Seg Neuts % (Manual) Nucleated RBC % Seg Neutrophils # Seg Neutrophils # Man Lymphocytes # (Manual) ABG pH POC ABG pCO2 POC ABG pO2 ABG Hemoglobin ABG Sodium ABG Potassium ABG Glucose Carboxyhemoglobin Sodium 136 L Potassium Chloride 97.8 L Carbon Dioxide BUN 41 H Creatinine 1.8 H 1.8 H Glucose POC Glucose Lactic Acid Calcium 8.2 L Phosphorus AST ALT CK-MB (CK-2) Rel Index Troponin T 0.065 H D NT-Pro-B Natriuret Pep Serum Total Protein Total Protein Albumin Bcnkc-7-Rfflzjqef Gamma Globulins PEP Interpretation HDL Cholesterol Arterial Blood Glucose Arterial Blood Ionized Calcium Urine WBC (Auto) Urine Creatinine Hepatitis C Antibody 11/22/20 11/22/20 11/22/20 10:20 10:20 15:00 WBC RBC 3.16 L Hgb 10.2 L Hct 29.9 L MCV 95 H Lymph % (Auto) [place] % (Auto) Lymph # (Auto) [place] # (Auto) Seg Neutrophils % Seg Neuts % (Manual) Nucleated RBC % Seg Neutrophils # Seg Neutrophils # Man Lymphocytes # (Manual) ABG pH 7.501 H POC ABG pCO2 POC ABG pO2 ABG Hemoglobin 10.5 L ABG Sodium 134.9 L ABG Potassium ABG Glucose 115 H Carboxyhemoglobin 0.4 L Sodium Potassium Chloride Carbon Dioxide BUN Creatinine Glucose POC Glucose Lactic Acid Calcium Phosphorus AST ALT CK-MB (CK-2) Rel Index Troponin T 0.078 H NT-Pro-B Natriuret Pep Serum Total Protein Total Protein Albumin Fshti-2-Qyobatplg Gamma Globulins PEP Interpretation HDL Cholesterol Arterial Blood Glucose 115 H Arterial Blood Ionized Calcium 4.3 L Urine WBC (Auto) Urine Creatinine Hepatitis C Antibody 11/22/20 11/22/20 11/22/20 16:00 17:45 23:21 WBC RBC Hgb Hct MCV Lymph % (Auto) [place] % (Auto) Lymph # (Auto) [place] # (Auto) Seg Neutrophils % Seg Neuts % (Manual) Nucleated RBC % Seg Neutrophils # Seg Neutrophils # Man Lymphocytes # (Manual) ABG pH POC ABG pCO2 POC ABG pO2 ABG Hemoglobin ABG Sodium ABG Potassium ABG Glucose Carboxyhemoglobin Sodium Potassium Chloride Carbon Dioxide BUN Creatinine Glucose POC Glucose 107 H 115 H Lactic Acid Calcium Phosphorus AST ALT CK-MB (CK-2) Rel Index Troponin T NT-Pro-B Natriuret Pep Serum Total Protein Total Protein Albumin Fsqos-8-Dqanmuzfg Gamma Globulins PEP Interpretation HDL Cholesterol Arterial Blood Glucose Arterial Blood Ionized Calcium Urine WBC (Auto) Urine Creatinine Hepatitis C Antibody Reactive A 11/23/20 11/23/20 11/23/20 03:03 05:33 10:00 WBC RBC 3.33 L Hgb 10.6 L Hct 32.2 L MCV 97 H Lymph % (Auto) [place] % (Auto) 15.0 H Lymph # (Auto) [place] # (Auto) 1.5 H Seg Neutrophils % Seg Neuts % (Manual) Nucleated RBC % Seg Neutrophils # Seg Neutrophils # Man Lymphocytes # (Manual) ABG pH POC ABG pCO2 POC ABG pO2 115.8 H ABG Hemoglobin 10.1 L ABG Sodium 135.8 L ABG Potassium ABG Glucose 98 H Carboxyhemoglobin 0.4 L Sodium Potassium Chloride Carbon Dioxide BUN Creatinine Glucose POC Glucose 106 H Lactic Acid Calcium Phosphorus AST ALT CK-MB (CK-2) Rel Index Troponin T NT-Pro-B Natriuret Pep Serum Total Protein Total Protein Albumin Nfoqd-1-Yhpffbxll Gamma Globulins PEP Interpretation HDL Cholesterol Arterial Blood Glucose 98 H Arterial Blood Ionized Calcium 4.4 L Urine WBC (Auto) Urine Creatinine Hepatitis C Antibody 11/23/20 11/23/20 11/23/20 10:00 10:00 12:12 WBC RBC Hgb Hct MCV Lymph % (Auto) [place] % (Auto) Lymph # (Auto) [place] # (Auto) Seg Neutrophils % Seg Neuts % (Manual) Nucleated RBC % Seg Neutrophils # Seg Neutrophils # Man Lymphocytes # (Manual) ABG pH POC ABG pCO2 POC ABG pO2 ABG Hemoglobin ABG Sodium ABG Potassium ABG Glucose Carboxyhemoglobin Sodium Potassium Chloride Carbon Dioxide BUN 22 H Creatinine Glucose 101 H POC Glucose 119 H Lactic Acid Calcium 7.9 L Phosphorus AST ALT CK-MB (CK-2) Rel Index Troponin T NT-Pro-B Natriuret Pep Serum Total Protein 5.3 L Total Protein 5.5 L Albumin 2.8 L 2.8 L Ujcbl-8-Wcpjykwuh 0.4 H Gamma Globulins 0.7 L PEP Interpretation see below H HDL Cholesterol Arterial Blood Glucose Arterial Blood Ionized Calcium Urine WBC (Auto) Urine Creatinine Hepatitis C Antibody 11/23/20 11/23/20 11/24/20 18:21 23:28 01:48 WBC RBC Hgb Hct MCV Lymph % (Auto) [place] % (Auto) Lymph # (Auto) [place] # (Auto) Seg Neutrophils % Seg Neuts % (Manual) Nucleated RBC % Seg Neutrophils # Seg Neutrophils # Man Lymphocytes # (Manual) ABG pH 7.281 L POC ABG pCO2 58.4 H POC ABG pO2 ABG Hemoglobin 11.8 L ABG Sodium ABG Potassium ABG Glucose 101 H Carboxyhemoglobin Sodium Potassium Chloride Carbon Dioxide BUN Creatinine Glucose POC Glucose 106 H 108 H Lactic Acid Calcium Phosphorus AST ALT CK-MB (CK-2) Rel Index Troponin T NT-Pro-B Natriuret Pep Serum Total Protein Total Protein Albumin Itamf-2-Oggqsiiuw Gamma Globulins PEP Interpretation HDL Cholesterol Arterial Blood Glucose 101 H Arterial Blood Ionized Calcium Urine WBC (Auto) Urine Creatinine Hepatitis C Antibody 11/24/20 11/24/20 11/25/20 09:58 09:58 00:29 WBC RBC Hgb Hct MCV Lymph % (Auto) [place] % (Auto) Lymph # (Auto) [place] # (Auto) Seg Neutrophils % Seg Neuts % (Manual) Nucleated RBC % Seg Neutrophils # Seg Neutrophils # Man Lymphocytes # (Manual) ABG pH POC ABG pCO2 POC ABG pO2 ABG Hemoglobin ABG Sodium ABG Potassium ABG Glucose Carboxyhemoglobin Sodium 148 H Potassium Chloride Carbon Dioxide 34 H D BUN Creatinine Glucose POC Glucose 111 H Lactic Acid 0.60 L Calcium Phosphorus AST ALT CK-MB (CK-2) Rel Index Troponin T NT-Pro-B Natriuret Pep Serum Total Protein Total Protein Albumin Dudze-6-Klyondzba Gamma Globulins PEP Interpretation HDL Cholesterol Arterial Blood Glucose Arterial Blood Ionized Calcium Urine WBC (Auto) Urine Creatinine Hepatitis C Antibody 11/25/20 11/25/20 11/25/20 05:48 08:18 08:18 WBC 13.2 H RBC 3.56 L Hgb 10.9 L Hct 34.0 L MCV 96 H Lymph % (Auto) [place] % (Auto) Lymph # (Auto) [place] # (Auto) Seg Neutrophils % Seg Neuts % (Manual) 98.0 H Nucleated RBC % 1.0 H Seg Neutrophils # Seg Neutrophils # Man 12.9 H Lymphocytes # (Manual) 0.0 L ABG pH POC ABG pCO2 POC ABG pO2 ABG Hemoglobin ABG Sodium ABG Potassium ABG Glucose Carboxyhemoglobin Sodium 147 H Potassium Chloride Carbon Dioxide 32 H BUN 26 H Creatinine Glucose 151 H POC Glucose 148 H Lactic Acid Calcium Phosphorus AST ALT CK-MB (CK-2) Rel Index Troponin T NT-Pro-B Natriuret Pep Serum Total Protein Total Protein 6.0 L Albumin 3.7 L Uelpc-1-Znyupezrd Gamma Globulins PEP Interpretation HDL Cholesterol Arterial Blood Glucose Arterial Blood Ionized Calcium Urine WBC (Auto) Urine Creatinine Hepatitis C Antibody 11/25/20 11/25/20 11/25/20 11:34 18:03 23:15 WBC RBC Hgb Hct MCV Lymph % (Auto) [place] % (Auto) Lymph # (Auto) [place] # (Auto) Seg Neutrophils % Seg Neuts % (Manual) Nucleated RBC % Seg Neutrophils # Seg Neutrophils # Man Lymphocytes # (Manual) ABG pH POC ABG pCO2 POC ABG pO2 ABG Hemoglobin ABG Sodium ABG Potassium ABG Glucose Carboxyhemoglobin Sodium Potassium Chloride Carbon Dioxide BUN Creatinine Glucose POC Glucose 144 H 147 H 158 H Lactic Acid Calcium Phosphorus AST ALT CK-MB (CK-2) Rel Index Troponin T NT-Pro-B Natriuret Pep Serum Total Protein Total Protein Albumin Sjnfs-5-Mdplhmzjq Gamma Globulins PEP Interpretation HDL Cholesterol Arterial Blood Glucose Arterial Blood Ionized Calcium Urine WBC (Auto) Urine Creatinine Hepatitis C Antibody 11/26/20 11/26/20 11/26/20 05:07 06:22 06:22 WBC 12.3 H RBC 3.52 L Hgb 11.1 L Hct 33.6 L MCV 95 H Lymph % (Auto) [place] % (Auto) Lymph # (Auto) [place] # (Auto) Seg Neutrophils % Seg Neuts % (Manual) Nucleated RBC % Seg Neutrophils # Seg Neutrophils # Man Lymphocytes # (Manual) ABG pH POC ABG pCO2 POC ABG pO2 ABG Hemoglobin ABG Sodium ABG Potassium ABG Glucose Carboxyhemoglobin Sodium Potassium 3.3 L Chloride 95.8 L Carbon Dioxide 33 H BUN 35 H Creatinine 1.4 H Glucose 185 H POC Glucose 184 H Lactic Acid Calcium Phosphorus AST ALT CK-MB (CK-2) Rel Index Troponin T 0.036 H D NT-Pro-B Natriuret Pep Serum Total Protein Total Protein 6.2 L Albumin 3.1 L Deiaa-8-Fwbwynrmn Gamma Globulins PEP Interpretation HDL Cholesterol Arterial Blood Glucose Arterial Blood Ionized Calcium Urine WBC (Auto) Urine Creatinine Hepatitis C Antibody 11/26/20 11/26/20 11/26/20 12:52 17:30 23:14 WBC RBC Hgb Hct MCV Lymph % (Auto) [place] % (Auto) Lymph # (Auto) [place] # (Auto) Seg Neutrophils % Seg Neuts % (Manual) Nucleated RBC % Seg Neutrophils # Seg Neutrophils # Man Lymphocytes # (Manual) ABG pH POC ABG pCO2 POC ABG pO2 ABG Hemoglobin ABG Sodium ABG Potassium ABG Glucose Carboxyhemoglobin Sodium Potassium Chloride Carbon Dioxide BUN Creatinine Glucose POC Glucose 170 H 133 H 149 H Lactic Acid Calcium Phosphorus AST ALT CK-MB (CK-2) Rel Index Troponin T NT-Pro-B Natriuret Pep Serum Total Protein Total Protein Albumin Ckboz-4-Afleshcwt Gamma Globulins PEP Interpretation HDL Cholesterol Arterial Blood Glucose Arterial Blood Ionized Calcium Urine WBC (Auto) Urine Creatinine Hepatitis C Antibody 11/27/20 11/27/20 11/27/20 05:35 08:03 12:02 WBC RBC Hgb Hct MCV Lymph % (Auto) [place] % (Auto) Lymph # (Auto) [place] # (Auto) Seg Neutrophils % Seg Neuts % (Manual) Nucleated RBC % Seg Neutrophils # Seg Neutrophils # Man Lymphocytes # (Manual) ABG pH POC ABG pCO2 POC ABG pO2 ABG Hemoglobin ABG Sodium ABG Potassium ABG Glucose Carboxyhemoglobin Sodium Potassium Chloride 97.0 L Carbon Dioxide 31 H BUN 41 H Creatinine 1.4 H Glucose 145 H POC Glucose 135 H 139 H Lactic Acid Calcium Phosphorus 2.20 L AST ALT CK-MB (CK-2) Rel Index Troponin T NT-Pro-B Natriuret Pep Serum Total Protein Total Protein Albumin Hunaa-7-Amehgazlf Gamma Globulins PEP Interpretation HDL Cholesterol Arterial Blood Glucose Arterial Blood Ionized Calcium Urine WBC (Auto) Urine Creatinine Hepatitis C Antibody 11/27/20 11/28/20 11/28/20 18:41 05:26 06:08 WBC RBC Hgb Hct MCV Lymph % (Auto) [place] % (Auto) Lymph # (Auto) [place] # (Auto) Seg Neutrophils % Seg Neuts % (Manual) Nucleated RBC % Seg Neutrophils # Seg Neutrophils # Man Lymphocytes # (Manual) ABG pH POC ABG pCO2 POC ABG pO2 ABG Hemoglobin ABG Sodium ABG Potassium ABG Glucose Carboxyhemoglobin Sodium Potassium Chloride Carbon Dioxide BUN 45 H Creatinine 1.4 H Glucose 135 H POC Glucose 148 H 143 H Lactic Acid Calcium Phosphorus AST ALT CK-MB (CK-2) Rel Index Troponin T NT-Pro-B Natriuret Pep Serum Total Protein Total Protein Albumin Jvlvf-5-Nlvaqzslh Gamma Globulins PEP Interpretation HDL Cholesterol Arterial Blood Glucose Arterial Blood Ionized Calcium Urine WBC (Auto) Urine Creatinine Hepatitis C Antibody 11/28/20 11/28/20 11/28/20 11:46 17:31 21:17 WBC RBC Hgb Hct MCV Lymph % (Auto) [place] % (Auto) Lymph # (Auto) [place] # (Auto) Seg Neutrophils % Seg Neuts % (Manual) Nucleated RBC % Seg Neutrophils # Seg Neutrophils # Man Lymphocytes # (Manual) ABG pH POC ABG pCO2 POC ABG pO2 ABG Hemoglobin ABG Sodium ABG Potassium ABG Glucose Carboxyhemoglobin Sodium Potassium Chloride Carbon Dioxide BUN Creatinine Glucose POC Glucose 132 H 156 H 122 H Lactic Acid Calcium Phosphorus AST ALT CK-MB (CK-2) Rel Index Troponin T NT-Pro-B Natriuret Pep Serum Total Protein Total Protein Albumin Aacxa-1-Gkyxegqge Gamma Globulins PEP Interpretation HDL Cholesterol Arterial Blood Glucose Arterial Blood Ionized Calcium Urine WBC (Auto) Urine Creatinine Hepatitis C Antibody 11/29/20 11/29/20 11/29/20 00:06 04:43 05:15 WBC RBC Hgb Hct MCV Lymph % (Auto) [place] % (Auto) Lymph # (Auto) [place] # (Auto) Seg Neutrophils % Seg Neuts % (Manual) Nucleated RBC % Seg Neutrophils # Seg Neutrophils # Man Lymphocytes # (Manual) ABG pH POC ABG pCO2 POC ABG pO2 ABG Hemoglobin ABG Sodium ABG Potassium ABG Glucose Carboxyhemoglobin Sodium Potassium Chloride 97.7 L Carbon Dioxide BUN 56 H Creatinine 1.6 H Glucose 132 H POC Glucose 114 H 125 H Lactic Acid Calcium Phosphorus AST ALT CK-MB (CK-2) Rel Index Troponin T NT-Pro-B Natriuret Pep Serum Total Protein Total Protein Albumin Lvtad-9-Kfniliqrz Gamma Globulins PEP Interpretation HDL Cholesterol Arterial Blood Glucose Arterial Blood Ionized Calcium Urine WBC (Auto) Urine Creatinine Hepatitis C Antibody 11/29/20 11/29/20 11/30/20 12:09 18:12 04:47 WBC RBC Hgb Hct MCV Lymph % (Auto) [place] % (Auto) Lymph # (Auto) [place] # (Auto) Seg Neutrophils % Seg Neuts % (Manual) Nucleated RBC % Seg Neutrophils # Seg Neutrophils # Man Lymphocytes # (Manual) ABG pH POC ABG pCO2 POC ABG pO2 ABG Hemoglobin ABG Sodium ABG Potassium ABG Glucose Carboxyhemoglobin Sodium Potassium Chloride Carbon Dioxide 31 H BUN 59 H Creatinine 1.6 H Glucose 122 H POC Glucose 142 H 132 H Lactic Acid Calcium Phosphorus AST ALT CK-MB (CK-2) Rel Index Troponin T NT-Pro-B Natriuret Pep Serum Total Protein Total Protein Albumin Suviq-4-Mgllntjme Gamma Globulins PEP Interpretation HDL Cholesterol Arterial Blood Glucose Arterial Blood Ionized Calcium Urine WBC (Auto) Urine Creatinine Hepatitis C Antibody 11/30/20 11/30/20 11/30/20 05:45 11:47 18:16 WBC RBC Hgb Hct MCV Lymph % (Auto) [place] % (Auto) Lymph # (Auto) [place] # (Auto) Seg Neutrophils % Seg Neuts % (Manual) Nucleated RBC % Seg Neutrophils # Seg Neutrophils # Man Lymphocytes # (Manual) ABG pH POC ABG pCO2 POC ABG pO2 ABG Hemoglobin ABG Sodium ABG Potassium ABG Glucose Carboxyhemoglobin Sodium Potassium Chloride Carbon Dioxide BUN Creatinine Glucose POC Glucose 118 H 123 H 126 H Lactic Acid Calcium Phosphorus AST ALT CK-MB (CK-2) Rel Index Troponin T NT-Pro-B Natriuret Pep Serum Total Protein Total Protein Albumin Anwqv-9-Isivatrem Gamma Globulins PEP Interpretation HDL Cholesterol Arterial Blood Glucose Arterial Blood Ionized Calcium Urine WBC (Auto) Urine Creatinine Hepatitis C Antibody 12/01/20 12/01/20 12/01/20 00:11 04:57 05:41 WBC RBC Hgb Hct MCV Lymph % (Auto) [place] % (Auto) Lymph # (Auto) [place] # (Auto) Seg Neutrophils % Seg Neuts % (Manual) Nucleated RBC % Seg Neutrophils # Seg Neutrophils # Man Lymphocytes # (Manual) ABG pH POC ABG pCO2 POC ABG pO2 ABG Hemoglobin ABG Sodium ABG Potassium ABG Glucose Carboxyhemoglobin Sodium Potassium Chloride Carbon Dioxide BUN 52 H Creatinine 1.4 H Glucose 121 H POC Glucose 117 H 120 H Lactic Acid Calcium Phosphorus AST ALT CK-MB (CK-2) Rel Index Troponin T NT-Pro-B Natriuret Pep Serum Total Protein Total Protein Albumin Rlkdm-9-Ngajxbjus Gamma Globulins PEP Interpretation HDL Cholesterol Arterial Blood Glucose Arterial Blood Ionized Calcium Urine WBC (Auto) Urine Creatinine Hepatitis C Antibody 12/01/20 12/02/20 12/02/20 23:35 06:02 08:09 WBC RBC Hgb Hct MCV Lymph % (Auto) [place] % (Auto) Lymph # (Auto) [place] # (Auto) Seg Neutrophils % Seg Neuts % (Manual) Nucleated RBC % Seg Neutrophils # Seg Neutrophils # Man Lymphocytes # (Manual) ABG pH POC ABG pCO2 POC ABG pO2 ABG Hemoglobin ABG Sodium ABG Potassium ABG Glucose Carboxyhemoglobin Sodium Potassium Chloride Carbon Dioxide BUN Creatinine Glucose POC Glucose 117 H 108 H 117 H Lactic Acid Calcium Phosphorus AST ALT CK-MB (CK-2) Rel Index Troponin T NT-Pro-B Natriuret Pep Serum Total Protein Total Protein Albumin Fbsby-1-Qaqazkwqc Gamma Globulins PEP Interpretation HDL Cholesterol Arterial Blood Glucose Arterial Blood Ionized Calcium Urine WBC (Auto) Urine Creatinine Hepatitis C Antibody 12/02/20 12/02/20 12/02/20 09:40 11:33 17:34 WBC RBC Hgb Hct MCV Lymph % (Auto) [place] % (Auto) Lymph # (Auto) [place] # (Auto) Seg Neutrophils % Seg Neuts % (Manual) Nucleated RBC % Seg Neutrophils # Seg Neutrophils # Man Lymphocytes # (Manual) ABG pH POC ABG pCO2 POC ABG pO2 ABG Hemoglobin ABG Sodium ABG Potassium ABG Glucose Carboxyhemoglobin Sodium Potassium Chloride 97.6 L Carbon Dioxide 35 H BUN 45 H Creatinine Glucose POC Glucose 109 H 124 H Lactic Acid Calcium Phosphorus AST ALT CK-MB (CK-2) Rel Index Troponin T NT-Pro-B Natriuret Pep Serum Total Protein Total Protein Albumin Uxvyg-7-Bbklxmioa Gamma Globulins PEP Interpretation HDL Cholesterol Arterial Blood Glucose Arterial Blood Ionized Calcium Urine WBC (Auto) Urine Creatinine Hepatitis C Antibody 12/03/20 12/03/20 12/03/20 05:40 07:16 16:46 WBC RBC Hgb Hct MCV Lymph % (Auto) [place] % (Auto) Lymph # (Auto) [place] # (Auto) Seg Neutrophils % Seg Neuts % (Manual) Nucleated RBC % Seg Neutrophils # Seg Neutrophils # Man Lymphocytes # (Manual) ABG pH POC ABG pCO2 POC ABG pO2 ABG Hemoglobin ABG Sodium ABG Potassium ABG Glucose Carboxyhemoglobin Sodium Potassium Chloride Carbon Dioxide BUN 44 H Creatinine Glucose 117 H POC Glucose 115 H 106 H Lactic Acid Calcium Phosphorus AST ALT CK-MB (CK-2) Rel Index Troponin T NT-Pro-B Natriuret Pep Serum Total Protein Total Protein Albumin Gaylu-7-Sfvcshcku Gamma Globulins PEP Interpretation HDL Cholesterol Arterial Blood Glucose Arterial Blood Ionized Calcium Urine WBC (Auto) Urine Creatinine Hepatitis C Antibody 12/03/20 12/04/20 12/04/20 21:55 07:53 11:43 WBC RBC Hgb Hct MCV Lymph % (Auto) [place] % (Auto) Lymph # (Auto) [place] # (Auto) Seg Neutrophils % Seg Neuts % (Manual) Nucleated RBC % Seg Neutrophils # Seg Neutrophils # Man Lymphocytes # (Manual) ABG pH POC ABG pCO2 POC ABG pO2 ABG Hemoglobin ABG Sodium ABG Potassium ABG Glucose Carboxyhemoglobin Sodium Potassium Chloride Carbon Dioxide BUN Creatinine Glucose POC Glucose 113 H 110 H 110 H Lactic Acid Calcium Phosphorus AST ALT CK-MB (CK-2) Rel Index Troponin T NT-Pro-B Natriuret Pep Serum Total Protein Total Protein Albumin Wfqvl-7-Pqkwbapjh Gamma Globulins PEP Interpretation HDL Cholesterol Arterial Blood Glucose Arterial Blood Ionized Calcium Urine WBC (Auto) Urine Creatinine Hepatitis C Antibody 12/04/20 17:21 WBC RBC Hgb Hct MCV Lymph % (Auto) [place] % (Auto) Lymph # (Auto) [place] # (Auto) Seg Neutrophils % Seg Neuts % (Manual) Nucleated RBC % Seg Neutrophils # Seg Neutrophils # Man Lymphocytes # (Manual) ABG pH POC ABG pCO2 POC ABG pO2 ABG Hemoglobin ABG Sodium ABG Potassium ABG Glucose Carboxyhemoglobin Sodium Potassium Chloride Carbon Dioxide BUN Creatinine Glucose POC Glucose 135 H Lactic Acid Calcium Phosphorus AST ALT CK-MB (CK-2) Rel Index Troponin T NT-Pro-B Natriuret Pep Serum Total Protein Total Protein Albumin Apzom-3-Kycglqwnn Gamma Globulins PEP Interpretation HDL Cholesterol Arterial Blood Glucose Arterial Blood Ionized Calcium Urine WBC (Auto) Urine Creatinine Hepatitis C Antibody
--- NOTE | 2020-12-06 19:20 | Progress Note ---
Assessment and Plan Assessment and plan: Patient saturating well on 3 to 4 L of nasal cannula oxygen Wean as tolerated, closely monitor --Acute hypoxic respiratory failure/Requiring intubation 11/21/2020 s/p extubation 11/23/2020, patient is on noninvasive ventilation on high flow nasal cannula oxygen 25 L/35% FiO2/O2 sats 96% Clinically patient is more alert and awake responding appropriately Wean as tolerated --Acute exacerbation of COPD; Home oxygen dependent BiPAP as needed, wean as tolerated Continue nebulizers, tapering dose of IV steroids, supportive care Pulmonary following --Acute kidney injury; vasomotor nephropathy Gentle hydration closely monitor renal function Resolved, normal renal function, avoid nephrotoxins --Severe pulmonary hypertension; Management per pulmonary, continue supportive care --Acute metabolic encephalopathy 11/21 CT head shows no acute intracranial abnormality, sinus disease Continue supportive care --NSTEMI type II Presented with [facility]RIE with elevated troponins cardiology patient had a stress test in 2019 which showed no significant ischemia, Echo; EF 50 to 55% severe pulmonary hypertension moderate mitral stenosis may benefit from HECTOR for evaluation of mitral valve when patient is stable Medical management per cardiology --Acute kidney injury; present on admission/resolved Vasomotor nephropathy Now resolved, normal renal function Avoid nephrotoxins, nephrology following --History of bladder cancer; Indwelling Paulson in place, supportive care Continue Flomax --Urinary tract infection; Completed antibiotics total 5 days --Dyslipidemia; Continue statin and low-cholesterol diet --Hypertension; moderate control We will continue current antihypertensives And as needed hydralazine --Hypernatremia ; resolved Patient was hyponatremia on admission ,probably overcorrection Increase oral intake of water/monitor electrolytes --Severe protein calorie malnutrition ; Hypoalbuminemia ,nutrition supplements Nutrition consult and supportive care --Nutrition; cardiac diet as tolerated --DVT prophylaxis; Subcu heparin, SCDs --GI prophylaxis; Continue Prevacid --Full CODE STATUS; PT OT evaluation noted and appreciated Recommend home health PT and OT at discharge Patient is currently requiring 10 L nasal cannula oxygen Will wean slowly to 2 to 4 L and plan discharge We will closely monitor the patient and adjust the management as needed Consults and recommendations noted and appreciated Plan of care reviewed with the patient's nurse Brief history and daily hospital course: 85-year-old male patient with past medical history of COPD on home oxygen, GERD, hypertension, asthma, hyperlipidemia, vasopressin, bladder cancer admitted for acute hypoxic respiratory failure, intubated on 11/21/2020 managed appropriately evaluated by pulmonary critical subsequently extubated on 2020, today patient is on high flow nasal cannula oxygen, pulmonary critical, cardiology and nephrology following the patient 11/23: Patient was extubated, currently on BiPAP Mild distress, wean as tolerated 11/25/2020; patient is on BiPAP Mild distress, noncommunicative 11/26/2020; patient is on intermittent BiPAP Currently on high flow nasal cannula oxygen 11/27/2020; patient is more alert and awake Will get swallow screen, if normal start pured diet Transfer the patient to [facility] 11/28/2020; patient is on high flow oxygen slightly better than yesterday Able to tolerate mechanical soft diet when the family comes and helps him DC planning, considering LTAC placement 11/29 Still on HFNC oxygen 11/30 Still on HFNC oxygen 12/01 on 35 liters O2 714/21; patient remains on high flow nasal cannula oxygen requiring 25 L/FiO2 35%/O2 sats 96 Wean as tolerated, awaiting LTAC placement Patient is hemodynamically and clinically stable to be transferred out of [facility] to cardiac telemetry or medical floor with remote telemetry today. 12/04/2020; remains on high flow oxygen 25 L/35%/96% O2 sats Wean as tolerated, pending LTAC placement consider PT OT once patient's respiratory status is stable 12/05/2020; patient feels slightly better more alert and awake Responding to simple questions appropriately, titrated the oxygen Today patient is requiring 3 to 4 L of nasal cannula oxygen Significantly improved from yesterday when he needed 25 L Physical therapy evaluation and treatment, home oxygen evaluation prior to discharge 12/06/2020; patient is requiring 10 L of supplemental oxygen today Wean as tolerated PT OT evaluation recommendations noted, Possible discharge in 1 to 2 days if stable Patient's son Ana Jean-Pierre [phone] at the bedside Discussed in detail patient's condition, tests and reports Discharge planning, answered all his questions History Interval history: I have seen and examined the patient at the bedside this afternoon Patient's chart medications reviewed patient is requiring 10 L of nasal cannula oxygen No new overnight events reported by nursing Vital signs noted Hospitalist Physical - Constitutional Vitals: Temp Pulse Resp BP Pulse Ox 98.2 F 84 24 151/80 94 12/06/20 16:49 12/06/20 18:00 12/06/20 18:00 12/06/20 16:49 12/06/20 18:00 General appearance: Present: no acute distress, well-nourished, obese, other (Patient is more alert and awake responding to simple questions) - EENT Eyes: Present: PERRL, EOM intact - Neck Neck: Present: supple, normal ROM - Respiratory Respiratory effort: normal Respiratory: bilateral: diminished, negative: rales, rhonchi, wheezing - Cardiovascular Rhythm: regular Heart Sounds: Present: S1 & S2 - Extremities Extremities: no ischemia, No edema - Abdominal General gastrointestinal: soft, non-tender, non-distended, normal bowel sounds - Integumentary Integumentary: Present: clear, warm - Psychiatric Psychiatric: appropriate mood/affect, cooperative - Neurologic Neurologic: CNII-XII intact, moves all extremities HEART Score - HEART Score Troponin: Troponin T 0.021 ng/mL (0.00-0.029) 11/29/20 04:43 Results - Labs CBC & Chem 7: 11/28/20 09:21 12/03/20 05:40 Labs: Laboratory Last Values WBC 9.8 K/mm3 (4.5-11.0) 11/28/20 09:21 RBC 4.01 M/mm3 (3.65-5.03) 11/28/20 09:21 Hgb 12.3 gm/dl (11.8-15.2) 11/28/20 09:21 Hct 37.6 % (35.5-45.6) 11/28/20 09:21 MCV 94 fl (84-94) 11/28/20 09:21 MCH 31 pg (28-32) 11/28/20 09:21 MCHC 33 % (32-34) 11/28/20 09:21 RDW 15.1 % (13.2-15.2) 11/28/20 09:21 Plt Count 369 K/mm3 (140-440) 11/28/20 09:21 Lymph % (Auto) 16.1 % (13.4-35.0) 11/23/20 10:00 [place] % (Auto) 15.0 % (0.0-7.3) H 11/23/20 10:00 Eos % (Auto) 1.0 % (0.0-4.3) 11/23/20 10:00 Baso % (Auto) 0.5 % (0.0-1.8) 11/23/20 10:00 Lymph # (Auto) 1.6 K/mm3 (1.2-5.4) 11/23/20 10:00 [place] # (Auto) 1.5 K/mm3 (0.0-0.8) H 11/23/20 10:00 Eos # (Auto) 0.1 K/mm3 (0.0-0.4) 11/23/20 10:00 Baso # (Auto) 0.1 K/mm3 (0.0-0.1) 11/23/20 10:00 Add Manual Diff Complete 11/25/20 08:18 Total Counted 100 11/25/20 08:18 Seg Neutrophils % Bundle Clerk 11/25/20 08:18 Seg Neuts % (Manual) 98.0 % (40.0-70.0) H 11/25/20 08:18 Monocytes % (Manual) 2.0 % (0.0-7.3) 11/25/20 08:18 Nucleated RBC % 1.0 % (0.0-0.9) H 11/25/20 08:18 Seg Neutrophils # 6.6 K/mm3 (1.8-7.7) 11/23/20 10:00 Seg Neutrophils # Man 12.9 K/mm3 (1.8-7.7) H 11/25/20 08:18 Band Neutrophils # 0.0 K/mm3 11/25/20 08:18 Lymphocytes # (Manual) 0.0 K/mm3 (1.2-5.4) L 11/25/20 08:18 Abs React Lymphs (Man) 0.0 K/mm3 11/25/20 08:18 Monocytes # (Manual) 0.3 K/mm3 (0.0-0.8) 11/25/20 08:18 Eosinophils # (Manual) 0.0 K/mm3 (0.0-0.4) 11/25/20 08:18 Basophils # (Manual) 0.0 K/mm3 (0.0-0.1) 11/25/20 08:18 Metamyelocytes # 0.0 K/mm3 11/25/20 08:18 Myelocytes # 0.0 K/mm3 11/25/20 08:18 Promyelocytes # 43.8 K/mm3 11/25/20 08:18 Blast Cells # 0.0 K/mm3 11/25/20 08:18 WBC Morphology Not Reportable 11/25/20 08:18 Hypersegmented Neuts Not Reportable 11/25/20 08:18 Hyposegmented Neuts Not Reportable 11/25/20 08:18 Hypogranular Neuts Not Reportable 11/25/20 08:18 Smudge Cells Not Reportable 11/25/20 08:18 Toxic Granulation Few 11/25/20 08:18 Toxic Vacuolation Not Reportable 11/25/20 08:18 Dohle Bodies Not Reportable 11/25/20 08:18 Pelger-Huet Anomaly Not Reportable 11/25/20 08:18 Liang Rods Not Reportable 11/25/20 08:18 Platelet Estimate Consistent w auto 11/25/20 08:18 Clumped Platelets Not Reportable 11/25/20 08:18 Plt Clumps, EDTA Not Reportable 11/25/20 08:18 Large Platelets Not Reportable 11/25/20 08:18 Giant Platelets Not Reportable 11/25/20 08:18 Platelet Satelliting Not Reportable 11/25/20 08:18 Plt Morphology Comment Not Reportable 11/25/20 08:18 RBC Morphology Not Reportable 11/25/20 08:18 Dimorphic RBCs Not Reportable 11/25/20 08:18 Polychromasia Not Reportable 11/25/20 08:18 Hypochromasia 1+ 11/25/20 08:18 Poikilocytosis Not Reportable 11/25/20 08:18 Anisocytosis Not Reportable 11/25/20 08:18 Microcytosis Not Reportable 11/25/20 08:18 Macrocytosis Not Reportable 11/25/20 08:18 Spherocytes Not Reportable 11/25/20 08:18 Pappenheimer Bodies Not Reportable 11/25/20 08:18 Sickle Cells Not Reportable 11/25/20 08:18 Target Cells 1+ 11/25/20 08:18 Tear Drop Cells Not Reportable 11/25/20 08:18 Ovalocytes Not Reportable 11/25/20 08:18 Helmet Cells Not Reportable 11/25/20 08:18 [place] Bodies Not Reportable 11/25/20 08:18 [place] Rings Not Reportable 11/25/20 08:18 [place] Cells Not Reportable 11/25/20 08:18 Bite Cells Not Reportable 11/25/20 08:18 Crenated Cell Not Reportable 11/25/20 08:18 Elliptocytes Not Reportable 11/25/20 08:18 Acanthocytes (Spur) Not Reportable 11/25/20 08:18 Rouleaux Not Reportable 11/25/20 08:18 Hemoglobin C Crystals Not Reportable 11/25/20 08:18 Schistocytes Not Reportable 11/25/20 08:18 Malaria parasites Not Reportable 11/25/20 08:18 Fuad Bodies Not Reportable 11/25/20 08:18 Hem Pathologist Commnt No 11/25/20 08:18 PT 13.5 Sec. (12.2-14.9) 11/21/20 20:50 INR 0.98 (0.87-1.13) 11/21/20 20:50 APTT 32.1 Sec. (24.2-36.6) 11/21/20 20:50 ABG pH 7.281 (7.320-7.450) L 11/24/20 01:48 POC ABG pCO2 58.4 mmHg (32.0-48.0) H 11/24/20 01:48 POC ABG pO2 98.1 mmHg (83-108) 11/24/20 01:48 POC ABG HCO3 26.9 11/24/20 01:48 ABG O2 Saturation 96.9 (0-100) 11/24/20 01:48 POC ABG Base Excess -0.7 11/24/20 01:48 ABG Hemoglobin 11.8 (12.0-17.5) L 11/24/20 01:48 ABG Oxyhemoglobin 95.9 (94-98) 11/24/20 01:48 ABG Methemoglobin 0.3 (0.0-1.5) 11/24/20 01:48 ABG Sodium 140.6 mmol/L (136.0-145.0) 11/24/20 01:48 ABG Potassium 3.9 mmol/L (3.40-4.50) 11/24/20 01:48 ABG Chloride 104.0 mmol/L (98-107) 11/24/20 01:48 ABG Glucose 101 mg/dL (65-95) H 11/24/20 01:48 Carboxyhemoglobin 0.7 (0.5-1.5) 11/24/20 01:48 FiO2 % 50.0 11/24/20 01:48 Sodium 138 mmol/L (137-145) 12/03/20 05:40 Potassium 4.5 mmol/L (3.6-5.0) 12/03/20 05:40 Chloride 99.2 mmol/L (98-107) 12/03/20 05:40 Carbon Dioxide 28 mmol/L (22-30) D 12/03/20 05:40 Anion Gap 15 mmol/L 12/03/20 05:40 BUN 44 mg/dL (9-20) H 12/03/20 05:40 Creatinine 1.2 mg/dL (0.8-1.3) 12/03/20 05:40 Estimated GFR 57 ml/min 12/03/20 05:40 BUN/Creatinine Ratio 37 % 12/03/20 05:40 Glucose 117 mg/dL (75-100) H 12/03/20 05:40 POC Glucose 135 mg/dL (70-105) H 12/04/20 17:21 Lactic Acid 0.60 mmol/L (0.7-2.0) L 11/24/20 09:58 Calcium 9.0 mg/dL (8.4-10.2) 12/03/20 05:40 Phosphorus 2.20 mg/dL (2.5-4.5) L 11/27/20 08:03 Magnesium 2.10 mg/dL (1.7-2.3) 11/27/20 08:03 Total Bilirubin 0.30 mg/dL (0.1-1.2) 11/26/20 06:22 AST 18 units/L (5-40) 11/26/20 06:22 ALT 22 units/L (7-56) 11/26/20 06:22 Alkaline Phosphatase 55 units/L (35-129) 11/26/20 06:22 Total Creatine Kinase 132 units/L (55-170) 11/22/20 10:20 CK-MB (CK-2) 3.3 ng/mL (0.0-4.0) 11/22/20 10:20 CK-MB (CK-2) Rel Index 2.5 (0-4) 11/22/20 10:20 Troponin T 0.021 ng/mL (0.00-0.029) 11/29/20 04:43 NT-Pro-B Natriuret Pep 6998 pg/mL (0-900) H 11/21/20 20:50 Serum Total Protein 5.3 g/dL (6.1-8.1) L 11/23/20 10:00 Total Protein 6.2 g/dL (6.3-8.2) L 11/26/20 06:22 Albumin 3.1 g/dL (3.9-5) L 11/26/20 06:22 Albumin/Globulin Ratio 1.0 % 11/26/20 06:22 Vnujp-8-Fxufwpdor 0.4 g/dL (0.2-0.3) H 11/23/20 10:00 Daddp-4-Rqikpkshg 0.8 g/dL (0.5-0.9) 11/23/20 10:00 Beta Globulins 0.3 g/dL (0.2-0.5) 11/23/20 10:00 Gamma Globulins 0.7 g/dL (0.8-1.7) L 11/23/20 10:00 Abnorm Protein Band 1 see below 11/23/20 10:00 PEP Interpretation see below H 11/23/20 10:00 Triglycerides 84 mg/dL (2-149) 11/21/20 20:50 Cholesterol 125 mg/dL (50-199) 11/21/20 20:50 LDL Cholesterol Direct 57 mg/dL (50-130) 11/21/20 20:50 HDL Cholesterol 60 mg/dL (40-59) H 11/21/20 20:50 Cholesterol/HDL Ratio 2.08 % 11/21/20 20:50 TSH 1.290 mlU/mL (0.270-4.200) 11/21/20 20:50 Free T4 1.18 ng/dL (0.76-1.46) 11/21/20 20:50 Arterial Blood Glucose 101 mg/dL (65-95) H 11/24/20 01:48 Arterial Blood Ionized Calcium 4.7 mg/dL (4.6-5.3) 11/24/20 01:48 Urine Color Yellow (Yellow) 11/22/20 05:00 Urine Turbidity Slightly-cloudy (Clear) 11/22/20 05:00 Urine pH 5.0 (5.0-7.0) 11/22/20 05:00 Ur Specific [place] 1.016 (1.003-1.030) 11/22/20 05:00 Urine Protein 30 mg/dl mg/dL (Negative) 11/22/20 05:00 Urine Glucose (UA) Neg mg/dL (Negative) 11/22/20 05:00 Urine Ketones Neg mg/dL (Negative) 11/22/20 05:00 Urine Blood Lg (Negative) 11/22/20 05:00 Urine Nitrite Neg (Negative) 11/22/20 05:00 Urine Bilirubin Neg (Negative) 11/22/20 05:00 Urine Urobilinogen < 2.0 mg/dL (<2.0) 11/22/20 05:00 Ur Leukocyte Esterase Tr (Negative) 11/22/20 05:00 Urine WBC (Auto) 33.0 /HPF (0.0-6.0) H 11/22/20 05:00 Urine RBC (Auto) 49.0 /HPF (0.0-6.0) 11/22/20 05:00 U Epithel Cells (Auto) 1.0 /HPF (0-13.0) 11/22/20 05:00 Hyaline Casts 4 /LPF 11/22/20 05:00 Urine Mucus 1+ /HPF 11/22/20 05:00 Urine Eosinophils None seen (None Seen) 11/24/20 17:55 Urine Creatinine 158.2 mg/dL (0.1-20.0) H 11/22/20 00:11 Urine Sodium 39 mmol/L 11/22/20 00:11 Fraction Sodium Excret 0.3 11/22/20 00:11 Urine Opiates Screen Presumptive negative 11/22/20 00:11 Urine Methadone Screen Presumptive negative 11/22/20 00:11 Ur Barbiturates Screen Presumptive negative 11/22/20 00:11 Ur Phencyclidine Scrn Presumptive negative 11/22/20 00:11 Ur Amphetamines Screen Presumptive negative 11/22/20 00:11 U Benzodiazepines Scrn Presumptive negative 11/22/20 00:11 Urine Cocaine Screen Presumptive negative 11/22/20 00:11 U Marijuana (THC) Screen Presumptive negative 11/22/20 00:11 Drugs of Abuse Note Disclamer 11/22/20 00:11 Plasma/Serum Alcohol < 0.01 % (0-0.07) 11/21/20 20:50 Proteinase 3 (PR3) Ab <1.0 AI (<1.0) 11/22/20 16:00 Myeloperoxidase Ab <1.0 AI (<1.0) 11/22/20 16:00 Double Strand DNA Ab 1 IU/mL (<=4) 11/22/20 16:00 Complement C3 93 mg/dL () 11/22/20 16:00 Complement C4 25 mg/dL () 11/22/20 16:00 Coronavirus (PCR) Negative (Negative) 11/23/20 09:30 Hepatitis A IgM Ab Non-reactive (NonReactive) 11/22/20 16:00 Hep Bs Antigen Non-reactive (Negative) 11/22/20 16:00 Hep B Core IgM Ab Non-reactive (NonReactive) 11/22/20 16:00 Hepatitis C Antibody Reactive (NonReactive) A 11/22/20 16:00 Paulson/IV: Voiding Method Toilet Active Medications - Current Medications Current Medications: Generic Name Dose Route Start Last Admin Trade Name Freq PRN Reason Stop Dose Admin Acetaminophen 650 mg 11/23/20 15:29 12/02/20 14:30 Acetaminophen 325 Mg Tab PO 650 mg Q4H PRN Administration Pain, Mild (1-3) Albuterol 2.5 mg 11/22/20 01:19 Albuterol 2.5 Mg/3 Ml Nebu IH Q4HRT PRN Shortness Of Breath Albuterol/Ipratropium 1 ampul 11/22/20 02:00 12/06/20 13:30 Ipratropium/Albuterol Sulfate 3 Ml Ampul.Neb IH 1 ampul Q6HRT TERESA Administration Lipase/Protease/Amylase 1 each 11/22/20 09:07 Lipase 10,500/Protease 25,000/Amylase 43,750 (Units) Dr Cyr FEEDTUBE PRN PRN For Clogged Feeding Tube Aspirin 81 mg 11/23/20 10:00 12/06/20 09:13 Aspirin 81 Mg Tab Chew PO 81 mg QDAY TERESA Administration Atorvastatin Calcium 40 mg 11/22/20 22:00 12/05/20 21:33 Atorvastatin 40 Mg Tab PO 40 mg QHS TERESA Administration Budesonide 0.5 mg 11/24/20 14:55 12/06/20 07:57 Budesonide 0.5 Mg/2 Ml Nebu IH 0.5 mg Q12HRT TERESA Administration Carvedilol 12.5 mg 12/03/20 22:00 12/06/20 09:13 Carvedilol 12.5 Mg Tab PO 12.5 mg BID TERESA Administration Heparin Sodium (Porcine) 5,000 unit 11/22/20 06:00 12/06/20 14:06 Heparin 5,000 Unit/1 Ml Vial SUB-Q 5,000 unit Q8HR TERESA Administration Hydralazine HCl 10 mg 11/22/20 01:24 12/02/20 10:54 Hydralazine 20 Mg/1 Ml Inj IV 10 mg Q6H PRN Administration Blood Pressure Lansoprazole 30 mg 11/28/20 10:00 12/06/20 09:13 Lansoprazole 30 Mg Solutab FEEDTUBE 30 mg QDAY TERESA Administration Nitroglycerin 0.4 mg 11/22/20 01:25 12/06/20 05:22 Nitroglycerin 0.4 Mg Tab Subl SL 0.4 mg Q5M PRN Administration Chest Pain Ondansetron HCl 4 mg 11/22/20 01:19 Ondansetron 4 Mg/2 Ml Inj IV Q8H PRN Nausea And Vomiting Prednisone 60 mg 12/06/20 10:00 12/06/20 09:13 Prednisone 20 Mg Tab PO 60 mg QDAY TERESA Administration Quetiapine Fumarate 25 mg 11/27/20 12:00 12/06/20 09:13 Quetiapine 25 Mg Tab PO 25 mg BID TERESA Administration Senna/Docusate Sodium 1 tab 11/22/20 10:00 12/06/20 09:14 Sennosides/Docusate Sodium 8.6/50 Mg Tab FEEDTUBE 1 tab BID TERESA Administration Simple Syrup 15 ml 11/22/20 09:07 Simple Syrup 15 Ml FEEDTUBE PRN PRN Hypoglycemia Simple Syrup 30 ml 11/22/20 09:07 Simple Syrup 15 Ml FEEDTUBE PRN PRN Hypoglycemia Sodium Bicarbonate 325 mg 11/22/20 09:07 Sodium Bicarbonate 325 Mg Tab FEEDTUBE PRN PRN For Clogged Feeding Tube Sodium Chloride 10 ml 11/22/20 10:00 12/06/20 09:14 Sodium Chloride 0.9% 10 Ml Flush Syringe IV 10 ml BID TERESA Administration Sodium Chloride 10 ml 11/22/20 01:19 Sodium Chloride 0.9% 10 Ml Flush Syringe IV PRN PRN LINE FLUSH Tamsulosin HCl 0.4 mg 11/22/20 10:00 12/06/20 09:13 Tamsulosin 0.4 Mg Cap PO 0.4 mg DAILY TERESA Administration Nutrition/Malnutrition Assess - Dietary Evaluation Nutrition/Malnutrition Findings: Nutrition Notes Start: 11/22/20 08:53 Freq: Status: Active Protocol: Document 12/05/20 12:10 IGOR (Rec: 12/05/20 12:13 IGOR [id number]) Nutrition Notes Initial or Follow up Reassessment Current Diagnosis Acute Kidney Injury,COPD, Coronary Artery Disease, Diabetes,Hypertension,Heart Failure,Respiratory Failure, Hyperlipidemia Other Pertinent Diagnosis AMS Current Diet [facility] soft Labs/Tests Reviewed Pertinent Medications Solu-Medrol Height 5 ft 3 in Weight 82.9 kg [place] Body Weight (kg) 56.36 BMI 32.3 Weight Status Obese Subjective/Other Information FU for intakes. Pt eating 10% of meals and drinking soup from home. Pt does not like the ONS. Percent of energy/protein needs met: Negligible Burn Absent Trauma Absent Current % PO Negligible Minimum of two criteria No physical signs of malnutrition #1 Nutrition Diagnosis Inadequate oral intake Diagnosis Progress(for reassessment Continues documentation) Is patient on ventilator? No Is Patient Ambulatory and/or Out of Bed No REE-([facility]-confined to bed) 1692.216 Kcal/Kg value to use for calculation 16 Approximate Energy Requirements Using 1326 kcal/Kg Calculation Used for Recommendations Kcal/kg Additional Notes protein needs: 69-82g (1-1.2g/ kg AdjBW: 69kg) fluid needs: 1 ml/kcal or per MD order Nutrition Intervention Change Diet Order: Continue Add Supplement/Snack (indicate name/kcal D/c /protein ) Goal #1 Meet at least 75% of energy and protein needs via PO and ONS Anticipated Discharge Needs: mech soft, consistent CHO Follow-Up By: 12/08/20 Additional Comments FU for intakes and ONS tolerance
--- NOTE | 2020-12-06 19:29 | Event Note ---
Date: 12/06/20 Patient's son Ana Ibarrah [phone] at the bedside Discussed in detail patient's condition, tests and reports Discharge planning, answered all his questions
[2020-12-07] MEDS: IPRATROPIUM/ALBUTEROL SULFATE 3 ML AMPUL.NEB IH SCH ×4 (02:49→20:24)
[2020-12-07] MEDS: HEPARIN 5,000 UNIT/1 ML VIAL SUB-Q SCH ×3 (06:06→22:20)
[2020-12-07] MEDS: BUDESONIDE 0.5 MG/2 ML NEBU IH SCH ×2 (09:31→20:24)
[2020-12-07] MEDS: LANSOPRAZOLE 30 MG SOLUTAB FEEDTUBE SCH (12:00)
[2020-12-07] MEDS: QUEtiapine 25 MG TAB PO SCH ×2 (13:12→22:13)
[2020-12-07] MEDS: SENNOSIDES/DOCUSATE SODIUM 8.6/50 MG TAB FEEDTUBE SCH ×2 (13:12→22:20)
[2020-12-07] MEDS: ASPIRIN 81 MG TAB CHEW PO SCH (13:13)
[2020-12-07] MEDS: carvediloL 12.5 MG TAB PO SCH ×2 (13:13→22:16)
[2020-12-07] MEDS: TAMSULOSIN 0.4 MG CAP PO SCH (13:13)
[2020-12-07] MEDS: predniSONE 20 MG TAB PO SCH (13:15)
--- NOTE | 2020-12-07 16:52 | Progress Note ---
Assessment and Plan Assessment and plan: Yesterday 12/06/2020 patient was saturating well on 3 to 4 L of nasal cannula oxygen However today patient is severely hypoxemic, requiring 25 L of high flow nasal cannula oxygen saturating 96% --Acute hypoxic respiratory failure/Requiring intubation 11/21/2020 s/p extubation 11/23/2020, patient is on noninvasive ventilation on high flow nasal cannula oxygen 25 L/35% FiO2/O2 sats 96% Clinically patient is more alert and awake responding appropriately Wean as tolerated --Acute exacerbation of COPD; Home oxygen dependent BiPAP as needed, wean as tolerated Continue nebulizers, tapering dose of IV steroids, supportive care Pulmonary following --Acute kidney injury; vasomotor nephropathy Gentle hydration closely monitor renal function Resolved, normal renal function, avoid nephrotoxins --Severe pulmonary hypertension; Management per pulmonary, continue supportive care --Acute metabolic encephalopathy 11/21 CT head shows no acute intracranial abnormality, sinus disease Continue supportive care --NSTEMI type II Presented with [facility] with elevated troponins cardiology patient had a stress test in 2019 which showed no significant ischemia, Echo; EF 50 to 55% severe pulmonary hypertension moderate mitral stenosis may benefit from HECTOR for evaluation of mitral valve when patient is stable Medical management per cardiology --Acute kidney injury; present on admission/resolved Vasomotor nephropathy Now resolved, normal renal function Avoid nephrotoxins, nephrology following --History of bladder cancer; Indwelling Paulson in place, supportive care Continue Flomax --Urinary tract infection; Completed antibiotics total 5 days --Dyslipidemia; Continue statin and low-cholesterol diet --Hypertension; moderate control We will continue current antihypertensives And as needed hydralazine --Hypernatremia ; resolved Patient was hyponatremia on admission ,probably overcorrection Increase oral intake of water/monitor electrolytes --Severe protein calorie malnutrition ; Hypoalbuminemia ,nutrition supplements Nutrition consult and supportive care --Nutrition; cardiac diet as tolerated --DVT prophylaxis; Subcu heparin, SCDs --GI prophylaxis; Continue Prevacid --Full CODE STATUS; PT OT evaluation noted and appreciated Recommend home health PT and OT at discharge Patient is currently requiring 10 L nasal cannula oxygen Will wean slowly to 2 to 4 L and plan discharge We will closely monitor the patient and adjust the management as needed Consults and recommendations noted and appreciated Plan of care reviewed with the patient's nurse Brief history and daily hospital course: 85-year-old male patient with past medical history of COPD on home oxygen, GERD, hypertension, asthma, hyperlipidemia, vasopressin, bladder cancer admitted for acute hypoxic respiratory failure, intubated on 11/21/2020 managed appropriately evaluated by pulmonary critical subsequently extubated on 11/24/19, today patient is on high flow nasal cannula oxygen, pulmonary critical, cardiology and nephrology following the patient 11/23: Patient was extubated, currently on BiPAP Mild distress, wean as tolerated 11/25/2020; patient is on BiPAP Mild distress, noncommunicative 11/26/2020; patient is on intermittent BiPAP Currently on high flow nasal cannula oxygen 11/27/2020; patient is more alert and awake Will get swallow screen, if normal start pured diet Transfer the patient to [facility] 11/28/2020; patient is on high flow oxygen slightly better than yesterday Able to tolerate mechanical soft diet when the family comes and helps him DC planning, considering LTAC placement 11/29 Still on HFNC oxygen 11/30 Still on HFNC oxygen 12/01 on 35 liters O2 714/21; patient remains on high flow nasal cannula oxygen requiring 25 L/FiO2 35%/O2 sats 96 Wean as tolerated, awaiting LTAC placement Patient is hemodynamically and clinically stable to be transferred out of [facility] to cardiac telemetry or medical floor with remote telemetry today. 12/04/2020; remains on high flow oxygen 25 L/35%/96% O2 sats Wean as tolerated, pending LTAC placement consider PT OT once patient's respiratory status is stable 12/05/2020; patient feels slightly better more alert and awake Responding to simple questions appropriately, titrated the oxygen Today patient is requiring 3 to 4 L of nasal cannula oxygen Significantly improved from yesterday when he needed 25 L Physical therapy evaluation and treatment, home oxygen evaluation prior to discharge 12/06/2020; patient is requiring 10 L of supplemental oxygen today Wean as tolerated PT OT evaluation recommendations noted, Possible discharge in 1 to 2 days if stable Patient's son Ana Morejon [phone] at the bedside Discussed in detail patient's condition, tests and reports Discharge planning, answered all his questions 12/07/2020; today patient is requiring high flow nasal cannula oxygen, 25 L In mild distress, wean as tolerated to 3 to 4 L nasal cannula DC planning per case management, possible home with home health when patient is medically stable History Interval history: Seen and examined the patient at the bedside this morning Patient's chart and medications reviewed, Patient's son is at the bedside Patient is severely hypoxemic requiring 25 L of high flow nasal cannula oxygen this morning Alert awake responding to simple questions Vital signs reviewed. Patient is in mild distress Hospitalist Physical - Constitutional Vitals: Temp Pulse Resp BP Pulse Ox 98.1 F 97 H 16 102/64 94 12/07/20 14:05 12/07/20 14:05 12/07/20 14:05 12/07/20 14:05 12/07/20 14:05 General appearance: Present: no acute distress, well-nourished, obese, other (On high flow oxygen) - EENT Eyes: Present: PERRL, EOM intact - Neck Neck: Present: supple, normal ROM - Respiratory Respiratory effort: normal Respiratory: bilateral: diminished, rales, negative: rhonchi, wheezing - Cardiovascular Rhythm: regular Heart Sounds: Present: S1 & S2 - Extremities Extremities: no ischemia, No edema - Abdominal General gastrointestinal: soft, non-tender, non-distended, normal bowel sounds - Integumentary Integumentary: Present: clear, warm - Psychiatric Psychiatric: appropriate mood/affect, cooperative - Neurologic Neurologic: CNII-XII intact, moves all extremities HEART Score - HEART Score Troponin: Troponin T 0.021 ng/mL (0.00-0.029) 11/29/20 04:43 Results - Labs CBC & Chem 7: 11/28/20 09:21 12/03/20 05:40 Labs: Laboratory Last Values WBC 9.8 K/mm3 (4.5-11.0) 11/28/20 09:21 RBC 4.01 M/mm3 (3.65-5.03) 11/28/20 09:21 Hgb 12.3 gm/dl (11.8-15.2) 11/28/20 09:21 Hct 37.6 % (35.5-45.6) 11/28/20 09:21 MCV 94 fl (84-94) 11/28/20 09:21 MCH 31 pg (28-32) 11/28/20 09:21 MCHC 33 % (32-34) 11/28/20 09:21 RDW 15.1 % (13.2-15.2) 11/28/20 09:21 Plt Count 369 K/mm3 (140-440) 11/28/20 09:21 Lymph % (Auto) 16.1 % (13.4-35.0) 11/23/20 10:00 [place] % (Auto) 15.0 % (0.0-7.3) H 11/23/20 10:00 Eos % (Auto) 1.0 % (0.0-4.3) 11/23/20 10:00 Baso % (Auto) 0.5 % (0.0-1.8) 11/23/20 10:00 Lymph # (Auto) 1.6 K/mm3 (1.2-5.4) 11/23/20 10:00 [place] # (Auto) 1.5 K/mm3 (0.0-0.8) H 11/23/20 10:00 Eos # (Auto) 0.1 K/mm3 (0.0-0.4) 11/23/20 10:00 Baso # (Auto) 0.1 K/mm3 (0.0-0.1) 11/23/20 10:00 Add Manual Diff Complete 11/25/20 08:18 Total Counted 100 11/25/20 08:18 Seg Neutrophils % Gaming Cashier 11/25/20 08:18 Seg Neuts % (Manual) 98.0 % (40.0-70.0) H 11/25/20 08:18 Monocytes % (Manual) 2.0 % (0.0-7.3) 11/25/20 08:18 Nucleated RBC % 1.0 % (0.0-0.9) H 11/25/20 08:18 Seg Neutrophils # 6.6 K/mm3 (1.8-7.7) 11/23/20 10:00 Seg Neutrophils # Man 12.9 K/mm3 (1.8-7.7) H 11/25/20 08:18 Band Neutrophils # 0.0 K/mm3 11/25/20 08:18 Lymphocytes # (Manual) 0.0 K/mm3 (1.2-5.4) L 11/25/20 08:18 Abs React Lymphs (Man) 0.0 K/mm3 11/25/20 08:18 Monocytes # (Manual) 0.3 K/mm3 (0.0-0.8) 11/25/20 08:18 Eosinophils # (Manual) 0.0 K/mm3 (0.0-0.4) 11/25/20 08:18 Basophils # (Manual) 0.0 K/mm3 (0.0-0.1) 11/25/20 08:18 Metamyelocytes # 0.0 K/mm3 11/25/20 08:18 Myelocytes # 0.0 K/mm3 11/25/20 08:18 Promyelocytes # 43.8 K/mm3 11/25/20 08:18 Blast Cells # 0.0 K/mm3 11/25/20 08:18 WBC Morphology Not Reportable 11/25/20 08:18 Hypersegmented Neuts Not Reportable 11/25/20 08:18 Hyposegmented Neuts Not Reportable 11/25/20 08:18 Hypogranular Neuts Not Reportable 11/25/20 08:18 Smudge Cells Not Reportable 11/25/20 08:18 Toxic Granulation Few 11/25/20 08:18 Toxic Vacuolation Not Reportable 11/25/20 08:18 Dohle Bodies Not Reportable 11/25/20 08:18 Pelger-Huet Anomaly Not Reportable 11/25/20 08:18 Liang Rods Not Reportable 11/25/20 08:18 Platelet Estimate Consistent w auto 11/25/20 08:18 Clumped Platelets Not Reportable 11/25/20 08:18 Plt Clumps, EDTA Not Reportable 11/25/20 08:18 Large Platelets Not Reportable 11/25/20 08:18 Giant Platelets Not Reportable 11/25/20 08:18 Platelet Satelliting Not Reportable 11/25/20 08:18 Plt Morphology Comment Not Reportable 11/25/20 08:18 RBC Morphology Not Reportable 11/25/20 08:18 Dimorphic RBCs Not Reportable 11/25/20 08:18 Polychromasia Not Reportable 11/25/20 08:18 Hypochromasia 1+ 11/25/20 08:18 Poikilocytosis Not Reportable 11/25/20 08:18 Anisocytosis Not Reportable 11/25/20 08:18 Microcytosis Not Reportable 11/25/20 08:18 Macrocytosis Not Reportable 11/25/20 08:18 Spherocytes Not Reportable 11/25/20 08:18 Pappenheimer Bodies Not Reportable 11/25/20 08:18 Sickle Cells Not Reportable 11/25/20 08:18 Target Cells 1+ 11/25/20 08:18 Tear Drop Cells Not Reportable 11/25/20 08:18 Ovalocytes Not Reportable 11/25/20 08:18 Helmet Cells Not Reportable 11/25/20 08:18 [place] Bodies Not Reportable 11/25/20 08:18 [place] Rings Not Reportable 11/25/20 08:18 [place] Cells Not Reportable 11/25/20 08:18 Bite Cells Not Reportable 11/25/20 08:18 Crenated Cell Not Reportable 11/25/20 08:18 Elliptocytes Not Reportable 11/25/20 08:18 Acanthocytes (Spur) Not Reportable 11/25/20 08:18 Rouleaux Not Reportable 11/25/20 08:18 Hemoglobin C Crystals Not Reportable 11/25/20 08:18 Schistocytes Not Reportable 11/25/20 08:18 Malaria parasites Not Reportable 11/25/20 08:18 Fuad Bodies Not Reportable 11/25/20 08:18 Hem Pathologist Commnt No 11/25/20 08:18 PT 13.5 Sec. (12.2-14.9) 11/21/20 20:50 INR 0.98 (0.87-1.13) 11/21/20 20:50 APTT 32.1 Sec. (24.2-36.6) 11/21/20 20:50 ABG pH 7.281 (7.320-7.450) L 11/24/20 01:48 POC ABG pCO2 58.4 mmHg (32.0-48.0) H 11/24/20 01:48 POC ABG pO2 98.1 mmHg (83-108) 11/24/20 01:48 POC ABG HCO3 26.9 11/24/20 01:48 ABG O2 Saturation 96.9 (0-100) 11/24/20 01:48 POC ABG Base Excess -0.7 11/24/20 01:48 ABG Hemoglobin 11.8 (12.0-17.5) L 11/24/20 01:48 ABG Oxyhemoglobin 95.9 (94-98) 11/24/20 01:48 ABG Methemoglobin 0.3 (0.0-1.5) 11/24/20 01:48 ABG Sodium 140.6 mmol/L (136.0-145.0) 11/24/20 01:48 ABG Potassium 3.9 mmol/L (3.40-4.50) 11/24/20 01:48 ABG Chloride 104.0 mmol/L (98-107) 11/24/20 01:48 ABG Glucose 101 mg/dL (65-95) H 11/24/20 01:48 Carboxyhemoglobin 0.7 (0.5-1.5) 11/24/20 01:48 FiO2 % 50.0 11/24/20 01:48 Sodium 138 mmol/L (137-145) 12/03/20 05:40 Potassium 4.5 mmol/L (3.6-5.0) 12/03/20 05:40 Chloride 99.2 mmol/L (98-107) 12/03/20 05:40 Carbon Dioxide 28 mmol/L (22-30) D 12/03/20 05:40 Anion Gap 15 mmol/L 12/03/20 05:40 BUN 44 mg/dL (9-20) H 12/03/20 05:40 Creatinine 1.2 mg/dL (0.8-1.3) 12/03/20 05:40 Estimated GFR 57 ml/min 12/03/20 05:40 BUN/Creatinine Ratio 37 % 12/03/20 05:40 Glucose 117 mg/dL (75-100) H 12/03/20 05:40 POC Glucose 135 mg/dL (70-105) H 12/04/20 17:21 Lactic Acid 0.60 mmol/L (0.7-2.0) L 11/24/20 09:58 Calcium 9.0 mg/dL (8.4-10.2) 12/03/20 05:40 Phosphorus 2.20 mg/dL (2.5-4.5) L 11/27/20 08:03 Magnesium 2.10 mg/dL (1.7-2.3) 11/27/20 08:03 Total Bilirubin 0.30 mg/dL (0.1-1.2) 11/26/20 06:22 AST 18 units/L (5-40) 11/26/20 06:22 ALT 22 units/L (7-56) 11/26/20 06:22 Alkaline Phosphatase 55 units/L (35-129) 11/26/20 06:22 Total Creatine Kinase 132 units/L (55-170) 11/22/20 10:20 CK-MB (CK-2) 3.3 ng/mL (0.0-4.0) 11/22/20 10:20 CK-MB (CK-2) Rel Index 2.5 (0-4) 11/22/20 10:20 Troponin T 0.021 ng/mL (0.00-0.029) 11/29/20 04:43 NT-Pro-B Natriuret Pep 6998 pg/mL (0-900) H 11/21/20 20:50 Serum Total Protein 5.3 g/dL (6.1-8.1) L 11/23/20 10:00 Total Protein 6.2 g/dL (6.3-8.2) L 11/26/20 06:22 Albumin 3.1 g/dL (3.9-5) L 11/26/20 06:22 Albumin/Globulin Ratio 1.0 % 11/26/20 06:22 [id number]-[id number] 0.4 g/dL (0.2-0.3) H 11/23/20 10:00 [id number]-[id number] 0.8 g/dL (0.5-0.9) 11/23/20 10:00 Beta Globulins 0.3 g/dL (0.2-0.5) 11/23/20 10:00 Gamma Globulins 0.7 g/dL (0.8-1.7) L 11/23/20 10:00 Abnorm Protein Band 1 see below 11/23/20 10:00 PEP Interpretation see below H 11/23/20 10:00 Triglycerides 84 mg/dL (2-149) 11/21/20 20:50 Cholesterol 125 mg/dL (50-199) 11/21/20 20:50 LDL Cholesterol Direct 57 mg/dL (50-130) 11/21/20 20:50 HDL Cholesterol 60 mg/dL (40-59) H 11/21/20 20:50 Cholesterol/HDL Ratio 2.08 % 11/21/20 20:50 TSH 1.290 mlU/mL (0.270-4.200) 11/21/20 20:50 Free T4 1.18 ng/dL (0.76-1.46) 11/21/20 20:50 Arterial Blood Glucose 101 mg/dL (65-95) H 11/24/20 01:48 Arterial Blood Ionized Calcium 4.7 mg/dL (4.6-5.3) 11/24/20 01:48 Urine Color Yellow (Yellow) 11/22/20 05:00 Urine Turbidity Slightly-cloudy (Clear) 11/22/20 05:00 Urine pH 5.0 (5.0-7.0) 11/22/20 05:00 Ur Specific [place] 1.016 (1.003-1.030) 11/22/20 05:00 Urine Protein 30 mg/dl mg/dL (Negative) 11/22/20 05:00 Urine Glucose (UA) Neg mg/dL (Negative) 11/22/20 05:00 Urine Ketones Neg mg/dL (Negative) 11/22/20 05:00 Urine Blood Lg (Negative) 11/22/20 05:00 Urine Nitrite Neg (Negative) 11/22/20 05:00 Urine Bilirubin Neg (Negative) 11/22/20 05:00 Urine Urobilinogen < 2.0 mg/dL (<2.0) 11/22/20 05:00 Ur Leukocyte Esterase Tr (Negative) 11/22/20 05:00 Urine WBC (Auto) 33.0 /HPF (0.0-6.0) H 11/22/20 05:00 Urine RBC (Auto) 49.0 /HPF (0.0-6.0) 11/22/20 05:00 U Epithel Cells (Auto) 1.0 /HPF (0-13.0) 11/22/20 05:00 Hyaline Casts 4 /LPF 11/22/20 05:00 Urine Mucus 1+ /HPF 11/22/20 05:00 Urine Eosinophils None seen (None Seen) 11/24/20 17:55 Urine Creatinine 158.2 mg/dL (0.1-20.0) H 11/22/20 00:11 Urine Sodium 39 mmol/L 11/22/20 00:11 Fraction Sodium Excret 0.3 11/22/20 00:11 Urine Opiates Screen Presumptive negative 11/22/20 00:11 Urine Methadone Screen Presumptive negative 11/22/20 00:11 Ur Barbiturates Screen Presumptive negative 11/22/20 00:11 Ur Phencyclidine Scrn Presumptive negative 11/22/20 00:11 Ur Amphetamines Screen Presumptive negative 11/22/20 00:11 U Benzodiazepines Scrn Presumptive negative 11/22/20 00:11 Urine Cocaine Screen Presumptive negative 11/22/20 00:11 U Marijuana (THC) Screen Presumptive negative 11/22/20 00:11 Drugs of Abuse Note Disclamer 11/22/20 00:11 Plasma/Serum Alcohol < 0.01 % (0-0.07) 11/21/20 20:50 Proteinase 3 (PR3) Ab <1.0 AI (<1.0) 11/22/20 16:00 Myeloperoxidase Ab <1.0 AI (<1.0) 11/22/20 16:00 Double Strand DNA Ab 1 IU/mL (<=4) 11/22/20 16:00 Complement C3 93 mg/dL () 11/22/20 16:00 Complement C4 25 mg/dL () 11/22/20 16:00 Coronavirus (PCR) Negative (Negative) 11/23/20 09:30 Hepatitis A IgM Ab Non-reactive (NonReactive) 11/22/20 16:00 Hep Bs Antigen Non-reactive (Negative) 11/22/20 16:00 Hep B Core IgM Ab Non-reactive (NonReactive) 11/22/20 16:00 Hepatitis C Antibody Reactive (NonReactive) A 11/22/20 16:00 Paulson/IV: Voiding Method Toilet Active Medications - Current Medications Current Medications: Generic Name Dose Route Start Last Admin Trade Name Freq PRN Reason Stop Dose Admin Acetaminophen 650 mg 11/23/20 15:29 12/02/20 14:30 Acetaminophen 325 Mg Tab PO 650 mg Q4H PRN Administration Pain, Mild (1-3) Albuterol 2.5 mg 11/22/20 01:19 Albuterol 2.5 Mg/3 Ml Nebu IH Q4HRT PRN Shortness Of Breath Albuterol/Ipratropium 1 ampul 11/22/20 02:00 12/07/20 14:34 Ipratropium/Albuterol Sulfate 3 Ml Ampul.Neb IH 1 ampul Q6HRT TERESA Administration Lipase/Protease/Amylase 1 each 11/22/20 09:07 Lipase 10,500/Protease 25,000/Amylase 43,750 (Units) Dr Cyr FEEDTUBE PRN PRN For Clogged Feeding Tube Aspirin 81 mg 11/23/20 10:00 12/07/20 13:13 Aspirin 81 Mg Tab Chew PO 81 mg QDAY TERESA Administration Atorvastatin Calcium 40 mg 11/22/20 22:00 12/06/20 21:20 Atorvastatin 40 Mg Tab PO 40 mg QHS TERESA Administration Budesonide 0.5 mg 11/24/20 14:55 12/07/20 09:31 Budesonide 0.5 Mg/2 Ml Nebu IH 0.5 mg Q12HRT TERESA Administration Carvedilol 12.5 mg 12/03/20 22:00 12/07/20 13:13 Carvedilol 12.5 Mg Tab PO 12.5 mg BID TERESA Administration Heparin Sodium (Porcine) 5,000 unit 11/22/20 06:00 12/07/20 13:19 Heparin 5,000 Unit/1 Ml Vial SUB-Q 5,000 unit Q8HR TERESA Administration Hydralazine HCl 10 mg 11/22/20 01:24 12/02/20 10:54 Hydralazine 20 Mg/1 Ml Inj IV 10 mg Q6H PRN Administration Blood Pressure Lansoprazole 30 mg 11/28/20 10:00 12/06/20 09:13 Lansoprazole 30 Mg Solutab FEEDTUBE 30 mg QDAY TERESA Administration Nitroglycerin 0.4 mg 11/22/20 01:25 12/06/20 05:22 Nitroglycerin 0.4 Mg Tab Subl SL 0.4 mg Q5M PRN Administration Chest Pain Ondansetron HCl 4 mg 11/22/20 01:19 Ondansetron 4 Mg/2 Ml Inj IV Q8H PRN Nausea And Vomiting Prednisone 60 mg 12/06/20 10:00 12/07/20 13:15 Prednisone 20 Mg Tab PO 60 mg QDAY TERESA Administration Quetiapine Fumarate 25 mg 11/27/20 12:00 12/07/20 13:12 Quetiapine 25 Mg Tab PO 25 mg BID TERESA Administration Senna/Docusate Sodium 1 tab 11/22/20 10:00 12/07/20 13:12 Sennosides/Docusate Sodium 8.6/50 Mg Tab FEEDTUBE 1 tab BID TERESA Administration Simple Syrup 15 ml 11/22/20 09:07 Simple Syrup 15 Ml FEEDTUBE PRN PRN Hypoglycemia Simple Syrup 30 ml 11/22/20 09:07 Simple Syrup 15 Ml FEEDTUBE PRN PRN Hypoglycemia Sodium Bicarbonate 325 mg 11/22/20 09:07 Sodium Bicarbonate 325 Mg Tab FEEDTUBE PRN PRN For Clogged Feeding Tube Sodium Chloride 10 ml 11/22/20 10:00 12/07/20 13:16 Sodium Chloride 0.9% 10 Ml Flush Syringe IV 10 ml BID TERESA Administration Sodium Chloride 10 ml 11/22/20 01:19 Sodium Chloride 0.9% 10 Ml Flush Syringe IV PRN PRN LINE FLUSH Tamsulosin HCl 0.4 mg 11/22/20 10:00 12/07/20 13:13 Tamsulosin 0.4 Mg Cap PO 0.4 mg DAILY TERESA Administration Nutrition/Malnutrition Assess - Dietary Evaluation Nutrition/Malnutrition Findings: Nutrition Notes Start: 11/22/20 08:53 Freq: Status: Active Protocol: Document 12/05/20 12:10 (Rec: 12/05/20 12:13 [email or web address]) Nutrition Notes Initial or Follow up Reassessment Current Diagnosis Acute Kidney Injury,COPD, Coronary Artery Disease, Diabetes,Hypertension,Heart Failure,Respiratory Failure, Hyperlipidemia Other Pertinent Diagnosis AMS Current Diet [facility] soft Labs/Tests Reviewed Pertinent Medications Solu-Medrol Height 5 ft 3 in Weight 82.9 kg [place] Body Weight (kg) 56.36 BMI 32.3 Weight Status Obese Subjective/Other Information FU for intakes. Pt eating 10% of meals and drinking soup from home. Pt does not like the ONS. Percent of energy/protein needs met: Negligible Burn Absent Trauma Absent Current % PO Negligible Minimum of two criteria No physical signs of malnutrition #1 Nutrition Diagnosis Inadequate oral intake Diagnosis Progress(for reassessment Continues documentation) Is patient on ventilator? No Is Patient Ambulatory and/or Out of Bed No REE-([facility]-confined to bed) 1692.216 Kcal/Kg value to use for calculation 16 Approximate Energy Requirements Using 1326 kcal/Kg Calculation Used for Recommendations Kcal/kg Additional Notes protein needs: 69-82g (1-1.2g/ kg AdjBW: 69kg) fluid needs: 1 ml/kcal or per MD order Nutrition Intervention Change Diet Order: Continue Add Supplement/Snack (indicate name/kcal D/c /protein ) Goal #1 Meet at least 75% of energy and protein needs via PO and ONS Anticipated Discharge Needs: mech soft, consistent CHO Follow-Up By: 12/08/20 Additional Comments FU for intakes and ONS tolerance
[2020-12-08] MEDS: IPRATROPIUM/ALBUTEROL SULFATE 3 ML AMPUL.NEB IH SCH ×4 (02:36→20:31)
[2020-12-08] MEDS: HEPARIN 5,000 UNIT/1 ML VIAL SUB-Q SCH ×3 (05:47→22:55)
[2020-12-08] MEDS: hydrALAZINE 20 MG/1 ML INJ IV PRN (06:02)
[2020-12-08] MEDS: BUDESONIDE 0.5 MG/2 ML NEBU IH SCH ×2 (07:31→20:31)
--- NOTE | 2020-12-08 08:32 | Progress Note ---
Assessment and Plan Assessment and plan: Yesterday 12/06/2020 patient was saturating well on 3 to 4 L of nasal cannula oxygen However today patient is severely hypoxemic, requiring 25 L of high flow nasal cannula oxygen saturating 96% Today 12/08/2020 patient continues to require high flow nasal cannula oxygen at 15 L/90 FiO2. O2 sats 91%. Wean as tolerated, pulmonary following --Acute hypoxic respiratory failure/Requiring intubation 11/21/2020 s/p extubation 11/23/2020, patient is on noninvasive ventilation on high flow nasal cannula oxygen 25 L/35% FiO2/O2 sats 96% Clinically patient is more alert and awake responding appropriately Remains on HFNC oxygen 15 L today ,wean as tolerated Management per pulmonary --Uncontrolled hypertension; this morning patient's blood pressure is 185/87 On multiple antihypertensives, will monitor blood pressures after morning medications are given Closely monitor and adjust dosages as needed --Acute exacerbation of COPD; Home oxygen dependent. Patient is on 15lt o2 BiPAP as needed, wean as tolerated Continue nebulizers, tapering dose of IV steroids, supportive care Pulmonary following --Acute kidney injury; present on admission Due to vasomotor nephropathy Received gentle hydration and supportive care Now ARF resolved, normal renal function, avoid nephrotoxins --Severe pulmonary hypertension; Management per pulmonary, continue supportive care --Acute metabolic encephalopathy 11/21 CT head shows no acute intracranial abnormality, sinus disease Continue supportive care. As per family patient is back to baseline intermittently --NSTEMI type II Presented with [facility] with elevated troponins cardiology patient had a stress test in 2019 which showed no significant ischemia, Echo; EF 50 to 55% severe pulmonary hypertension moderate mitral stenosis may benefit from [facility]ECTOR for evaluation of mitral valve when patient is stable Medical management per cardiology --Acute kidney injury; present on admission/resolved Vasomotor nephropathy Now resolved, normal renal function Avoid nephrotoxins, nephrology following --History of bladder cancer; Indwelling Paulson in place, supportive care Continue Flomax --Urinary tract infection; Completed antibiotics total 5 days --Dyslipidemia; Continue statin and low-cholesterol diet --Hypertension; moderate control We will continue current antihypertensives And as needed hydralazine --Hypernatremia ; resolved Patient was hyponatremia on admission ,probably overcorrection Increase oral intake of water/monitor electrolytes --Severe protein calorie malnutrition ; Hypoalbuminemia ,nutrition supplements Nutrition consult and supportive care --Nutrition; cardiac diet as tolerated --DVT prophylaxis; Subcu heparin, SCDs --GI prophylaxis; Continue Prevacid --Full CODE STATUS; PT OT evaluation noted and appreciated Recommend home health PT and OT at discharge Today patient is requiring 15 L nasal cannula oxygen Will wean slowly to 2 to 4 L and plan discharge We will closely monitor the patient and adjust the management as needed Consults and recommendations noted and appreciated Plan of care reviewed with the patient's nurse Brief history and daily hospital course: 85-year-old male patient with past medical history of COPD on home oxygen, GERD, hypertension, asthma, hyperlipidemia, vasopressin, bladder cancer admitted for acute hypoxic respiratory failure, intubated on 11/21/2020 managed appropriately evaluated by pulmonary critical subsequently extubated on 11/23/2020, today patient is on high flow nasal cannula oxygen, pulmonary critical, cardiology and nephrology following the patient 11/23: Patient was extubated, currently on BiPAP Mild distress, wean as tolerated 11/25/2020; patient is on BiPAP Mild distress, noncommunicative 11/26/2020; patient is on intermittent BiPAP Currently on high flow nasal cannula oxygen 11/27/2020; patient is more alert and awake Will get swallow screen, if normal start pured diet Transfer the patient to [facility] 11/28/2020; patient is on high flow oxygen slightly better than yesterday Able to tolerate mechanical soft diet when the family comes and helps him DC planning, considering LTAC placement 11/29 Still on HFNC oxygen 11/30 Still on HFNC oxygen 12/01 on 35 liters O2 714/21; patient remains on high flow nasal cannula oxygen requiring 25 L/FiO2 35%/O2 sats 96 Wean as tolerated, awaiting LTAC placement Patient is hemodynamically and clinically stable to be transferred out of [facility] to cardiac telemetry or medical floor with remote telemetry today. 12/04/2020; remains on high flow oxygen 25 L/35%/96% O2 sats Wean as tolerated, pending LTAC placement consider PT OT once patient's respiratory status is stable 12/05/2020; patient feels slightly better more alert and awake Responding to simple questions appropriately, titrated the oxygen Today patient is requiring 3 to 4 L of nasal cannula oxygen Significantly improved from yesterday when he needed 25 L Physical therapy evaluation and treatment, home oxygen evaluation prior to discharge 12/06/2020; patient is requiring 10 L of supplemental oxygen today Wean as tolerated PT OT evaluation recommendations noted, Possible discharge in 1 to 2 days if stable Patient's son Ana Miller [phone] at the bedside Discussed in detail patient's condition, tests and reports Discharge planning, answered all his questions 12/07/2020; today patient is requiring high flow nasal cannula oxygen, 25 L In mild distress, wean as tolerated to 3 to 4 L nasal cannula DC planning per case management, possible home with home health when patient is medically stable 12/08/2020 today patient is requiring high flow nasal cannula oxygen, but slightly improved patient is at 15 L O2 PT and OT recommend home health PT OT, wean patient off high flow oxygen Titrate to 3 to 4 L nasal cannula, possible discharge in 1 to 2 days if stable And cleared by pulmonary History Interval history: I have seen and examined the patient at the bedside Patient's chart and medications reviewed Patient continues to require high flow nasal cannula oxygen today 15 to 20 L In mild to moderate distress, lethargic Vital signs noted Hospitalist Physical - Constitutional Vitals: Temp Pulse Resp BP Pulse Ox 97.9 F 88 19 185/87 91 12/08/20 05:54 12/08/20 07:31 12/08/20 07:31 12/08/20 06:02 12/08/20 07:32 General appearance: Present: mild distress, well-nourished, obese, other (On high flow NC oxygen, patient is lethargic in mild distress) - EENT Eyes: Present: PERRL, EOM intact - Neck Neck: Present: supple, normal ROM - Respiratory Respiratory effort: normal Respiratory: bilateral: diminished, negative: rales, rhonchi, wheezing - Cardiovascular Rhythm: regular Heart Sounds: Present: S1 & S2 - Extremities Extremities: no ischemia, No edema - Abdominal General gastrointestinal: soft, non-tender, non-distended, normal bowel sounds - Integumentary Integumentary: Present: clear, warm - Psychiatric Psychiatric: agitated, other (Minimally communicative) - Neurologic Neurologic: moves all extremities, other (Patient is lethargic) HEART Score - HEART Score Troponin: Troponin T 0.021 ng/mL (0.00-0.029) 11/29/20 04:43 Results - Labs CBC & Chem 7: 11/28/20 09:21 07/19/21 09:43 Labs: Laboratory Last Values WBC 9.8 K/mm3 (4.5-11.0) 11/28/20 09:21 RBC 4.01 M/mm3 (3.65-5.03) 11/28/20 09:21 Hgb 12.3 gm/dl (11.8-15.2) 11/28/20 09:21 Hct 37.6 % (35.5-45.6) 11/28/20 09:21 MCV 94 fl (84-94) 11/28/20 09:21 MCH 31 pg (28-32) 11/28/20 09:21 MCHC 33 % (32-34) 11/28/20 09:21 RDW 15.1 % (13.2-15.2) 11/28/20 09:21 Plt Count 369 K/mm3 (140-440) 11/28/20 09:21 Lymph % (Auto) 16.1 % (13.4-35.0) 11/23/20 10:00 Waldo % (Auto) 15.0 % (0.0-7.3) H 11/23/20 10:00 Eos % (Auto) 1.0 % (0.0-4.3) 11/23/20 10:00 Baso % (Auto) 0.5 % (0.0-1.8) 11/23/20 10:00 Lymph # (Auto) 1.6 K/mm3 (1.2-5.4) 11/23/20 10:00 Waldo # (Auto) 1.5 K/mm3 (0.0-0.8) H 11/23/20 10:00 Eos # (Auto) 0.1 K/mm3 (0.0-0.4) 11/23/20 10:00 Baso # (Auto) 0.1 K/mm3 (0.0-0.1) 11/23/20 10:00 Add Manual Diff Complete 11/25/20 08:18 Total Counted 100 11/25/20 08:18 Seg Neutrophils % Tin Recovery Worker 11/25/20 08:18 Seg Neuts % (Manual) 98.0 % (40.0-70.0) H 11/25/20 08:18 Monocytes % (Manual) 2.0 % (0.0-7.3) 11/25/20 08:18 Nucleated RBC % 1.0 % (0.0-0.9) H 11/25/20 08:18 Seg Neutrophils # 6.6 K/mm3 (1.8-7.7) 11/23/20 10:00 Seg Neutrophils # Man 12.9 K/mm3 (1.8-7.7) H 11/25/20 08:18 Band Neutrophils # 0.0 K/mm3 11/25/20 08:18 Lymphocytes # (Manual) 0.0 K/mm3 (1.2-5.4) L 11/25/20 08:18 Abs React Lymphs (Man) 0.0 K/mm3 11/25/20 08:18 Monocytes # (Manual) 0.3 K/mm3 (0.0-0.8) 11/25/20 08:18 Eosinophils # (Manual) 0.0 K/mm3 (0.0-0.4) 11/25/20 08:18 Basophils # (Manual) 0.0 K/mm3 (0.0-0.1) 11/25/20 08:18 Metamyelocytes # 0.0 K/mm3 11/25/20 08:18 Myelocytes # 0.0 K/mm3 11/25/20 08:18 Promyelocytes # 43.8 K/mm3 11/25/20 08:18 Blast Cells # 0.0 K/mm3 11/25/20 08:18 WBC Morphology Not Reportable 11/25/20 08:18 Hypersegmented Neuts Not Reportable 11/25/20 08:18 Hyposegmented Neuts Not Reportable 11/25/20 08:18 Hypogranular Neuts Not Reportable 11/25/20 08:18 Smudge Cells Not Reportable 11/25/20 08:18 Toxic Granulation Few 11/25/20 08:18 Toxic Vacuolation Not Reportable 11/25/20 08:18 Dohle Bodies Not Reportable 11/25/20 08:18 Pelger-Huet Anomaly Not Reportable 11/25/20 08:18 Liang Rods Not Reportable 11/25/20 08:18 Platelet Estimate Consistent w auto 11/25/20 08:18 Clumped Platelets Not Reportable 11/25/20 08:18 Plt Clumps, EDTA Not Reportable 11/25/20 08:18 Large Platelets Not Reportable 11/25/20 08:18 Giant Platelets Not Reportable 11/25/20 08:18 Platelet Satelliting Not Reportable 11/25/20 08:18 Plt Morphology Comment Not Reportable 11/25/20 08:18 RBC Morphology Not Reportable 11/25/20 08:18 Dimorphic RBCs Not Reportable 11/25/20 08:18 Polychromasia Not Reportable 11/25/20 08:18 Hypochromasia 1+ 11/25/20 08:18 Poikilocytosis Not Reportable 11/25/20 08:18 Anisocytosis Not Reportable 11/25/20 08:18 Microcytosis Not Reportable 11/25/20 08:18 Macrocytosis Not Reportable 11/25/20 08:18 Spherocytes Not Reportable 11/25/20 08:18 Pappenheimer Bodies Not Reportable 11/25/20 08:18 Sickle Cells Not Reportable 11/25/20 08:18 Target Cells 1+ 11/25/20 08:18 Tear Drop Cells Not Reportable 11/25/20 08:18 Ovalocytes Not Reportable 11/25/20 08:18 Helmet Cells Not Reportable 11/25/20 08:18 Miranda-[place] Bodies Not Reportable 11/25/20 08:18 [place] Not Reportable 11/25/20 08:18 Deep Cells Not Reportable 11/25/20 08:18 Bite Cells Not Reportable 11/25/20 08:18 Crenated Cell Not Reportable 11/25/20 08:18 Elliptocytes Not Reportable 11/25/20 08:18 Acanthocytes (Spur) Not Reportable 11/25/20 08:18 Rouleaux Not Reportable 11/25/20 08:18 Hemoglobin C Crystals Not Reportable 11/25/20 08:18 Schistocytes Not Reportable 11/25/20 08:18 Malaria parasites Not Reportable 11/25/20 08:18 Fuad Bodies Not Reportable 11/25/20 08:18 Hem Pathologist Commnt No 11/25/20 08:18 PT 13.5 Sec. (12.2-14.9) 11/21/20 20:50 INR 0.98 (0.87-1.13) 11/21/20 20:50 APTT 32.1 Sec. (24.2-36.6) 11/21/20 20:50 ABG pH 7.281 (7.320-7.450) L 11/24/20 01:48 POC ABG pCO2 58.4 mmHg (32.0-48.0) H 11/24/20 01:48 POC ABG pO2 98.1 mmHg (83-108) 11/24/20 01:48 POC ABG HCO3 26.9 11/24/20 01:48 ABG O2 Saturation 96.9 (0-100) 11/24/20 01:48 POC ABG Base Excess -0.7 11/24/20 01:48 ABG Hemoglobin 11.8 (12.0-17.5) L 11/24/20 01:48 ABG Oxyhemoglobin 95.9 (94-98) 11/24/20 01:48 ABG Methemoglobin 0.3 (0.0-1.5) 11/24/20 01:48 ABG Sodium 140.6 mmol/L (136.0-145.0) 11/24/20 01:48 ABG Potassium 3.9 mmol/L (3.40-4.50) 11/24/20 01:48 ABG Chloride 104.0 mmol/L (98-107) 11/24/20 01:48 ABG Glucose 101 mg/dL (65-95) H 11/24/20 01:48 Carboxyhemoglobin 0.7 (0.5-1.5) 11/24/20 01:48 FiO2 % 50.0 11/24/20 01:48 Sodium 138 mmol/L (137-145) 12/03/20 05:40 Potassium 4.5 mmol/L (3.6-5.0) 12/03/20 05:40 Chloride 99.2 mmol/L (98-107) 12/03/20 05:40 Carbon Dioxide 28 mmol/L (22-30) D 12/03/20 05:40 Anion Gap 15 mmol/L 12/03/20 05:40 BUN 44 mg/dL (9-20) H 12/03/20 05:40 Creatinine 1.2 mg/dL (0.8-1.3) 12/03/20 05:40 Estimated GFR 57 ml/min 12/03/20 05:40 BUN/Creatinine Ratio 37 % 12/03/20 05:40 Glucose 117 mg/dL (75-100) H 12/03/20 05:40 POC Glucose 135 mg/dL (70-105) H 12/04/20 17:21 Lactic Acid 0.60 mmol/L (0.7-2.0) L 11/24/20 09:58 Calcium 9.0 mg/dL (8.4-10.2) 12/03/20 05:40 Phosphorus 2.80 mg/dL (2.5-4.5) 12/08/20 03:31 Magnesium 2.00 mg/dL (1.7-2.3) 12/08/20 03:31 Total Bilirubin 0.30 mg/dL (0.1-1.2) 11/26/20 06:22 AST 18 units/L (5-40) 11/26/20 06:22 ALT 22 units/L (7-56) 11/26/20 06:22 Alkaline Phosphatase 55 units/L (35-129) 11/26/20 06:22 Total Creatine Kinase 132 units/L (55-170) 11/22/20 10:20 CK-MB (CK-2) 3.3 ng/mL (0.0-4.0) 11/22/20 10:20 CK-MB (CK-2) Rel Index 2.5 (0-4) 11/22/20 10:20 Troponin T 0.021 ng/mL (0.00-0.029) 11/29/20 04:43 NT-Pro-B Natriuret Pep 6998 pg/mL (0-900) H 11/21/20 20:50 Serum Total Protein 5.3 g/dL (6.1-8.1) L 11/23/20 10:00 Total Protein 6.2 g/dL (6.3-8.2) L 11/26/20 06:22 Albumin 3.1 g/dL (3.9-5) L 11/26/20 06:22 Albumin/Globulin Ratio 1.0 % 11/26/20 06:22 Ybdjh-1-Pjksruwfw 0.4 g/dL (0.2-0.3) H 11/23/20 10:00 Hmeds-0-Lwgbwaiop 0.8 g/dL (0.5-0.9) 11/23/20 10:00 Beta Globulins 0.3 g/dL (0.2-0.5) 11/23/20 10:00 Gamma Globulins 0.7 g/dL (0.8-1.7) L 11/23/20 10:00 Abnorm Protein Band 1 see below 11/23/20 10:00 PEP Interpretation see below H 11/23/20 10:00 Triglycerides 84 mg/dL (2-149) 11/21/20 20:50 Cholesterol 125 mg/dL (50-199) 11/21/20 20:50 LDL Cholesterol Direct 57 mg/dL (50-130) 11/21/20 20:50 HDL Cholesterol 60 mg/dL (40-59) H 11/21/20 20:50 Cholesterol/HDL Ratio 2.08 % 11/21/20 20:50 TSH 1.290 mlU/mL (0.270-4.200) 11/21/20 20:50 Free T4 1.18 ng/dL (0.76-1.46) 11/21/20 20:50 Arterial Blood Glucose 101 mg/dL (65-95) H 11/24/20 01:48 Arterial Blood Ionized Calcium 4.7 mg/dL (4.6-5.3) 11/24/20 01:48 Urine Color Yellow (Yellow) 11/22/20 05:00 Urine Turbidity Slightly-cloudy (Clear) 11/22/20 05:00 Urine pH 5.0 (5.0-7.0) 11/22/20 05:00 Ur Specific [place] 1.016 (1.003-1.030) 11/22/20 05:00 Urine Protein 30 mg/dl mg/dL (Negative) 11/22/20 05:00 Urine Glucose (UA) Neg mg/dL (Negative) 11/22/20 05:00 Urine Ketones Neg mg/dL (Negative) 11/22/20 05:00 Urine Blood Lg (Negative) 11/22/20 05:00 Urine Nitrite Neg (Negative) 11/22/20 05:00 Urine Bilirubin Neg (Negative) 11/22/20 05:00 Urine Urobilinogen < 2.0 mg/dL (<2.0) 11/22/20 05:00 Ur Leukocyte Esterase Tr (Negative) 11/22/20 05:00 Urine WBC (Auto) 33.0 /HPF (0.0-6.0) H 11/22/20 05:00 Urine RBC (Auto) 49.0 /HPF (0.0-6.0) 11/22/20 05:00 U Epithel Cells (Auto) 1.0 /HPF (0-13.0) 11/22/20 05:00 Hyaline Casts 4 /LPF 11/22/20 05:00 Urine Mucus 1+ /HPF 11/22/20 05:00 Urine Eosinophils None seen (None Seen) 11/24/20 17:55 Urine Creatinine 158.2 mg/dL (0.1-20.0) H 11/22/20 00:11 Urine Sodium 39 mmol/L 11/22/20 00:11 Fraction Sodium Excret 0.3 11/22/20 00:11 Urine Opiates Screen Presumptive negative 11/22/20 00:11 Urine Methadone Screen Presumptive negative 11/22/20 00:11 Ur Barbiturates Screen Presumptive negative 11/22/20 00:11 Ur Phencyclidine Scrn Presumptive negative 11/22/20 00:11 Ur Amphetamines Screen Presumptive negative 11/22/20 00:11 U Benzodiazepines Scrn Presumptive negative 11/22/20 00:11 Urine Cocaine Screen Presumptive negative 11/22/20 00:11 U Marijuana (THC) Screen Presumptive negative 11/22/20 00:11 Drugs of Abuse Note Disclamer 11/22/20 00:11 Plasma/Serum Alcohol < 0.01 % (0-0.07) 11/21/20 20:50 Proteinase 3 (PR3) Ab <1.0 AI (<1.0) 11/22/20 16:00 Myeloperoxidase Ab <1.0 AI (<1.0) 11/22/20 16:00 Double Strand DNA Ab 1 IU/mL (<=4) 11/22/20 16:00 Complement C3 93 mg/dL () 11/22/20 16:00 Complement C4 25 mg/dL () 11/22/20 16:00 Coronavirus (PCR) Negative (Negative) 11/23/20 09:30 Hepatitis A IgM Ab Non-reactive (NonReactive) 11/22/20 16:00 Hep Bs Antigen Non-reactive (Negative) 11/22/20 16:00 Hep B Core IgM Ab Non-reactive (NonReactive) 11/22/20 16:00 Hepatitis C Antibody Reactive (NonReactive) A 11/22/20 16:00 Paulson/IV: Voiding Method Indwelling Catheter Active Medications - Current Medications Current Medications: Generic Name Dose Route Start Last Admin Trade Name Freq PRN Reason Stop Dose Admin Acetaminophen 650 mg 11/23/20 15:29 12/02/20 14:30 Acetaminophen 325 Mg Tab PO 650 mg Q4H PRN Administration Pain, Mild (1-3) Albuterol 2.5 mg 11/22/20 01:19 Albuterol 2.5 Mg/3 Ml Nebu IH Q4HRT PRN Shortness Of Breath Albuterol/Ipratropium 1 ampul 11/22/20 02:00 12/08/20 07:31 Ipratropium/Albuterol Sulfate 3 Ml Ampul.Neb IH 1 ampul Q6HRT TERESA Administration Lipase/Protease/Amylase 1 each 11/22/20 09:07 Lipase 10,500/Protease 25,000/Amylase 43,750 (Units) Dr Ger SAHATFLORINDA PRN PRN For Clogged Feeding Tube Aspirin 81 mg 11/23/20 10:00 12/07/20 13:13 Aspirin 81 Mg Tab Chew PO 81 mg QDAY TERESA Administration Atorvastatin Calcium 40 mg 11/22/20 22:00 12/07/20 22:20 Atorvastatin 40 Mg Tab PO 40 mg QHS TERESA Administration Budesonide 0.5 mg 11/24/20 14:55 12/08/20 07:31 Budesonide 0.5 Mg/2 Ml Nebu IH 0.5 mg Q12HRT TERESA Administration Carvedilol 12.5 mg 12/03/20 22:00 12/07/20 22:16 Carvedilol 12.5 Mg Tab PO 12.5 mg BID TERESA Administration Heparin Sodium (Porcine) 5,000 unit 11/22/20 06:00 12/08/20 05:47 Heparin 5,000 Unit/1 Ml Vial SUB-Q 5,000 unit Q8HR TERESA Administration Hydralazine HCl 10 mg 11/22/20 01:24 12/08/20 06:02 Hydralazine 20 Mg/1 Ml Inj IV 10 mg Q6H PRN Administration Blood Pressure Lansoprazole 30 mg 11/28/20 10:00 12/07/20 12:00 Lansoprazole 30 Mg Solutab FEEDTUBE 30 mg QDAY TERESA Administration Nitroglycerin 0.4 mg 11/22/20 01:25 12/06/20 05:22 Nitroglycerin 0.4 Mg Tab Subl SL 0.4 mg Q5M PRN Administration Chest Pain Ondansetron HCl 4 mg 11/22/20 01:19 Ondansetron 4 Mg/2 Ml Inj IV Q8H PRN Nausea And Vomiting Prednisone 60 mg 12/06/20 10:00 12/07/20 13:15 Prednisone 20 Mg Tab PO 60 mg QDAY TERESA Administration Quetiapine Fumarate 25 mg 11/27/20 12:00 12/07/20 22:13 Quetiapine 25 Mg Tab PO 25 mg BID TERESA Administration Senna/Docusate Sodium 1 tab 11/22/20 10:00 12/07/20 22:20 Sennosides/Docusate Sodium 8.6/50 Mg Tab FEEDTUBE 1 tab BID TERESA Administration Simple Syrup 15 ml 11/22/20 09:07 Simple Syrup 15 Ml FEEDTUBE PRN PRN Hypoglycemia Simple Syrup 30 ml 11/22/20 09:07 Simple Syrup 15 Ml FEEDTUBE PRN PRN Hypoglycemia Sodium Bicarbonate 325 mg 11/22/20 09:07 Sodium Bicarbonate 325 Mg Tab FEEDTUBE PRN PRN For Clogged Feeding Tube Sodium Chloride 10 ml 11/22/20 10:00 12/07/20 22:20 Sodium Chloride 0.9% 10 Ml Flush Syringe IV 10 ml BID TERESA Administration Sodium Chloride 10 ml 11/22/20 01:19 Sodium Chloride 0.9% 10 Ml Flush Syringe IV PRN PRN LINE FLUSH Tamsulosin HCl 0.4 mg 11/22/20 10:00 12/07/20 13:13 Tamsulosin 0.4 Mg Cap PO 0.4 mg DAILY TERESA Administration Nutrition/Malnutrition Assess - Dietary Evaluation Nutrition/Malnutrition Findings: Nutrition Notes Start: 11/22/20 08:53 Freq: Status: Active Protocol: Document 12/05/20 12:10 IGOR (Rec: 12/05/20 12:13 IGOR [id number]) Nutrition Notes Initial or Follow up Reassessment Current Diagnosis Acute Kidney Injury,COPD, Coronary Artery Disease, Diabetes,Hypertension,Heart Failure,Respiratory Failure, Hyperlipidemia Other Pertinent Diagnosis AMS Current Diet [facility] soft Labs/Tests Reviewed Pertinent Medications Solu-Medrol Height 5 ft 3 in Weight 82.9 kg [place] Body Weight (kg) 56.36 BMI 32.3 Weight Status Obese Subjective/Other Information FU for intakes. Pt eating 10% of meals and drinking soup from home. Pt does not like the ONS. Percent of energy/protein needs met: Negligible Burn Absent Trauma Absent Current % PO Negligible Minimum of two criteria No physical signs of malnutrition #1 Nutrition Diagnosis Inadequate oral intake Diagnosis Progress(for reassessment Continues documentation) Is patient on ventilator? No Is Patient Ambulatory and/or Out of Bed No REE-([facility]-confined to bed) 1692.216 Kcal/Kg value to use for calculation 16 Approximate Energy Requirements Using 1326 kcal/Kg Calculation Used for Recommendations Kcal/kg Additional Notes protein needs: 69-82g (1-1.2g/ kg AdjBW: 69kg) fluid needs: 1 ml/kcal or per MD order Nutrition Intervention Change Diet Order: Continue Add Supplement/Snack (indicate name/kcal D/c /protein ) Goal #1 Meet at least 75% of energy and protein needs via PO and ONS Anticipated Discharge Needs: mech soft, consistent CHO Follow-Up By: 12/08/20 Additional Comments FU for intakes and ONS tolerance
--- NOTE | 2020-12-08 09:40 | Progress Note ---
Assessment and Plan 85 y/o sw[place]ish male admitted with acute hypoxic respiratory failure. 12/08/20: with change in oxygen requirement, will place back on IV steroids. Will order labs including BNP today and give lasix 20mg IV x1. Initial LTACH request was denied, suggest having CM appeal it now that patient is back on HFNC. Will continue to follow. 12/06/20: Steroid taper as follows: 60 daily for 5 days, 40 daily for 5 days, 20 daily for 5 days, 10 daily for 5 days. Resume whatever home regimen patient was on at home. Wean Oxygen for sats >88%, likely patient will be fine on 2-3 liters, does not need 4. Will sign off. Call if questions. 12/05/20: Change to oral steroids starting tomorrow with prolonged taper. Likely dischargeable over the weekend. 12/04/20: LTACH denied. Continue to wean. Continue IV steroids. 12/03/20: Follow up with CM in regards to LTACH. Continue IV steroids. Wean FiO2 as tolerated. PT/OT if not already evaluated. Patient stable enough to transfer to floor. 12/02/20: CM still waiting to hear back from LTACH in regards to auth. Continue to wean FiO2 as tolerated for sats >88%. Continue IV steroids. 12/01/20: Wean HFNC for sats >88%. Spoke with CM about checking on LTACH but patient may be able to be weaned further now while in house. Will speak with RT about this. If placed on salter, may need to consider transfer to medical/surgical floor with remote tele. 11/28/20: Continue to wean HFNC. Agree with holding Precedex, can increase seroquel if needed to help with mood. Hopeful that over the weekend will be down to nasal cannula and can transfer to the floor. CM working on LTACH eval uation. Patient is stable for transfer, if and when accepted. 11/27/20: Will transfer to step down today. Agree with bedside swallow eval now that patient is more awake. Will try bID seroquel to help with mood and agitation. Hopeful Cr has stablized. Continue steroids at 40q8. Consider LTACH evaluation 11/26/20: 11/25/20: Continue bipap for right now. Added precedex and stopped ativan as t his may be worsening agitation. Ok with haldol use. Continue daily diuretics to keep patient net negative. Continue ICU monitoring for now. Renal function is better. Guarded prognosis. 11/23/20: Wean sedation to off. If patient can tolerate being off sedation, will attempt PSV trial, otherwise, will likely have to just stop sedation and extubate, will have bipap ready for as needed purposes. Needs chemistry to assess renal function. Out put was good. 1. Repeat ABG later this afternoon and wean FIO2 according (>88%) 2. Stop sedation, need to assess mental state 3. Follow up renal function and urine output. 4. Guarded prognosis, this is likely acute on chronic respiratory failure. cct 31 minutes. Subjective Date of service: 12/08/20 Principal diagnosis: Acute respiratory failure Interval history: Over the weekend, oxygen requirement worsened and now back on HFNC. If I/O accurate, has been net negative. Objective Vital Signs - 12hr 12/07/20 12/07/20 12/08/20 22:00 22:16 00:40 Temperature 97.8 F Pulse Rate 69 64 Pulse Rate [ Anterior Bilateral Throughout] Respiratory 24 Rate Respiratory Rate [Anterior Bilateral Throughout] Respiratory 22 Rate [ Generalized] Blood Pressure 171/83 166/70 Blood Pressure [Left] O2 Sat by Pulse 98 Oximetry 12/08/20 12/08/20 12/08/20 02:38 02:39 05:54 Temperature 97.9 F Pulse Rate 89 Pulse Rate [ 83 Anterior Bilateral Throughout] Respiratory 18 Rate Respiratory 20 Rate [Anterior Bilateral Throughout] Respiratory Rate [ Generalized] Blood Pressure 190/97 Blood Pressure [Left] O2 Sat by Pulse 96 96 Oximetry 12/08/20 12/08/20 12/08/20 06:02 07:31 07:32 Temperature Pulse Rate 85 Pulse Rate [ 88 Anterior Bilateral Throughout] Respiratory Rate Respiratory 19 Rate [Anterior Bilateral Throughout] Respiratory Rate [ Generalized] Blood Pressure 185/87 Blood Pressure [Left] O2 Sat by Pulse 91 Oximetry 12/08/20 12/08/20 08:00 08:54 Temperature 98.0 F Pulse Rate 89 60 Pulse Rate [ Anterior Bilateral Throughout] Respiratory 18 Rate Respiratory Rate [Anterior Bilateral Throughout] Respiratory Rate [ Generalized] Blood Pressure Blood Pressure 123/81 [Left] O2 Sat by Pulse 90 Oximetry Constitutional: no acute distress, alert Eyes: non-icteric ENT: oropharynx moist Neck: supple, other (large in circumference) Effort: normal Ascultation: Bilateral: clear, diminished breath sounds, wheezes Percussion: Bilateral: not dull Cardiovascular: other (tachy, no mrg) Gastrointestinal: normoactive bowel sounds, soft, non-tender, non-distended Extremities: no cyanosis, no edema, pink and warm Neurologic: normal mental status, non-focal exam, pupils equal and round Psychiatric: mood appropriate, affect normal CBC and BMP: 11/28/20 09:21 12/03/20 05:40 ABG, PT/INR, D-dimer: ABG ABG pH 7.281 (7.320-7.450) L 11/24/20 01:48 POC ABG pCO2 58.4 mmHg (32.0-48.0) H 11/24/20 01:48 POC ABG pO2 98.1 mmHg (83-108) 11/24/20 01:48 POC ABG HCO3 26.9 11/24/20 01:48 ABG O2 Saturation 96.9 (0-100) 11/24/20 01:48 PT/INR, D-dimer PT 13.5 Sec. (12.2-14.9) 11/21/20 20:50 INR 0.98 (0.87-1.13) 11/21/20 20:50 Abnormal lab findings: Abnormal Labs 11/21/20 11/21/20 11/22/20 20:50 20:50 00:11 WBC RBC 3.48 L Hgb 11.1 L Hct 34.3 L MCV 99 H Lymph % (Auto) 6.8 L [place] % (Auto) Lymph # (Auto) 0.6 L [place] # (Auto) Seg Neutrophils % 85.5 H Seg Neuts % (Manual) Nucleated RBC % Seg Neutrophils # Seg Neutrophils # Man Lymphocytes # (Manual) ABG pH POC ABG pCO2 POC ABG pO2 ABG Hemoglobin ABG Sodium ABG Potassium ABG Glucose Carboxyhemoglobin Sodium 130 L Potassium 7.3 H* Chloride 91.1 L Carbon Dioxide BUN 40 H Creatinine 2.1 H Glucose 195 H POC Glucose Lactic Acid Calcium Phosphorus AST 91 H ALT 65 H CK-MB (CK-2) Rel Index 4.1 H Troponin T 0.045 H NT-Pro-B Natriuret Pep 6998 H Serum Total Protein Total Protein Albumin 3.7 L Idsvj-7-Qzrnjfbts Gamma Globulins PEP Interpretation HDL Cholesterol 60 H Arterial Blood Glucose Arterial Blood Ionized Calcium Urine WBC (Auto) Urine Creatinine 158.2 H Hepatitis C Antibody 11/22/20 11/22/20 11/22/20 00:23 00:40 01:37 WBC 14.1 H RBC 3.53 L Hgb 11.0 L Hct 34.1 L MCV 97 H Lymph % (Auto) 12.3 L [place] % (Auto) 14.2 H Lymph # (Auto) [place] # (Auto) 2.0 H Seg Neutrophils % 72.3 H Seg Neuts % (Manual) Nucleated RBC % Seg Neutrophils # 10.2 H Seg Neutrophils # Man Lymphocytes # (Manual) ABG pH POC ABG pCO2 POC ABG pO2 ABG Hemoglobin ABG Sodium ABG Potassium ABG Glucose Carboxyhemoglobin Sodium Potassium 5.1 H D Chloride Carbon Dioxide BUN Creatinine Glucose POC Glucose Lactic Acid 2.10 H* Calcium Phosphorus AST ALT CK-MB (CK-2) Rel Index Troponin T NT-Pro-B Natriuret Pep Serum Total Protein Total Protein Albumin Bptlb-3-Ijpvmscoh Gamma Globulins PEP Interpretation HDL Cholesterol Arterial Blood Glucose Arterial Blood Ionized Calcium Urine WBC (Auto) Urine Creatinine Hepatitis C Antibody 11/22/20 11/22/20 11/22/20 01:37 03:20 05:00 WBC RBC Hgb Hct MCV Lymph % (Auto) [place] % (Auto) Lymph # (Auto) [place] # (Auto) Seg Neutrophils % Seg Neuts % (Manual) Nucleated RBC % Seg Neutrophils # Seg Neutrophils # Man Lymphocytes # (Manual) ABG pH POC ABG pCO2 58.4 H POC ABG pO2 ABG Hemoglobin 11.1 L ABG Sodium 135.1 L ABG Potassium 5.0 H ABG Glucose Carboxyhemoglobin Sodium Potassium 5.1 H Chloride Carbon Dioxide 31 H BUN 40 H Creatinine 2.0 H Glucose 49 L POC Glucose Lactic Acid Calcium Phosphorus AST ALT CK-MB (CK-2) Rel Index Troponin T NT-Pro-B Natriuret Pep Serum Total Protein Total Protein Albumin Wxicg-4-Cedkboxfu Gamma Globulins PEP Interpretation HDL Cholesterol Arterial Blood Glucose Arterial Blood Ionized Calcium Urine WBC (Auto) 33.0 H Urine Creatinine Hepatitis C Antibody 11/22/20 11/22/20 11/22/20 05:00 05:00 05:00 WBC RBC Hgb Hct MCV Lymph % (Auto) [place] % (Auto) Lymph # (Auto) [place] # (Auto) Seg Neutrophils % Seg Neuts % (Manual) Nucleated RBC % Seg Neutrophils # Seg Neutrophils # Man Lymphocytes # (Manual) ABG pH POC ABG pCO2 POC ABG pO2 ABG Hemoglobin ABG Sodium ABG Potassium ABG Glucose Carboxyhemoglobin Sodium 136 L Potassium Chloride 97.8 L Carbon Dioxide BUN 41 H Creatinine 1.8 H 1.8 H Glucose POC Glucose Lactic Acid Calcium 8.2 L Phosphorus AST ALT CK-MB (CK-2) Rel Index Troponin T 0.065 H D NT-Pro-B Natriuret Pep Serum Total Protein Total Protein Albumin Tojjn-4-Ncvrgezwe Gamma Globulins PEP Interpretation HDL Cholesterol Arterial Blood Glucose Arterial Blood Ionized Calcium Urine WBC (Auto) Urine Creatinine Hepatitis C Antibody 11/22/20 11/22/20 11/22/20 10:20 10:20 15:00 WBC RBC 3.16 L Hgb 10.2 L Hct 29.9 L MCV 95 H Lymph % (Auto) [place] % (Auto) Lymph # (Auto) [place] # (Auto) Seg Neutrophils % Seg Neuts % (Manual) Nucleated RBC % Seg Neutrophils # Seg Neutrophils # Man Lymphocytes # (Manual) ABG pH 7.501 H POC ABG pCO2 POC ABG pO2 ABG Hemoglobin 10.5 L ABG Sodium 134.9 L ABG Potassium ABG Glucose 115 H Carboxyhemoglobin 0.4 L Sodium Potassium Chloride Carbon Dioxide BUN Creatinine Glucose POC Glucose Lactic Acid Calcium Phosphorus AST ALT CK-MB (CK-2) Rel Index Troponin T 0.078 H NT-Pro-B Natriuret Pep Serum Total Protein Total Protein Albumin Weumv-7-Ykqdcikkg Gamma Globulins PEP Interpretation HDL Cholesterol Arterial Blood Glucose 115 H Arterial Blood Ionized Calcium 4.3 L Urine WBC (Auto) Urine Creatinine Hepatitis C Antibody 11/22/20 11/22/20 11/22/20 16:00 17:45 23:21 WBC RBC Hgb Hct MCV Lymph % (Auto) [place] % (Auto) Lymph # (Auto) [place] # (Auto) Seg Neutrophils % Seg Neuts % (Manual) Nucleated RBC % Seg Neutrophils # Seg Neutrophils # Man Lymphocytes # (Manual) ABG pH POC ABG pCO2 POC ABG pO2 ABG Hemoglobin ABG Sodium ABG Potassium ABG Glucose Carboxyhemoglobin Sodium Potassium Chloride Carbon Dioxide BUN Creatinine Glucose POC Glucose 107 H 115 H Lactic Acid Calcium Phosphorus AST ALT CK-MB (CK-2) Rel Index Troponin T NT-Pro-B Natriuret Pep Serum Total Protein Total Protein Albumin Djyon-8-Odajesrcy Gamma Globulins PEP Interpretation HDL Cholesterol Arterial Blood Glucose Arterial Blood Ionized Calcium Urine WBC (Auto) Urine Creatinine Hepatitis C Antibody Reactive A 11/23/20 11/23/20 11/23/20 03:03 05:33 10:00 WBC RBC 3.33 L Hgb 10.6 L Hct 32.2 L MCV 97 H Lymph % (Auto) [place] % (Auto) 15.0 H Lymph # (Auto) [place] # (Auto) 1.5 H Seg Neutrophils % Seg Neuts % (Manual) Nucleated RBC % Seg Neutrophils # Seg Neutrophils # Man Lymphocytes # (Manual) ABG pH POC ABG pCO2 POC ABG pO2 115.8 H ABG Hemoglobin 10.1 L ABG Sodium 135.8 L ABG Potassium ABG Glucose 98 H Carboxyhemoglobin 0.4 L Sodium Potassium Chloride Carbon Dioxide BUN Creatinine Glucose POC Glucose 106 H Lactic Acid Calcium Phosphorus AST ALT CK-MB (CK-2) Rel Index Troponin T NT-Pro-B Natriuret Pep Serum Total Protein Total Protein Albumin Nwxpj-2-Jpezpxbix Gamma Globulins PEP Interpretation HDL Cholesterol Arterial Blood Glucose 98 H Arterial Blood Ionized Calcium 4.4 L Urine WBC (Auto) Urine Creatinine Hepatitis C Antibody 11/23/20 11/23/20 11/23/20 10:00 10:00 12:12 WBC RBC Hgb Hct MCV Lymph % (Auto) [place] % (Auto) Lymph # (Auto) [place] # (Auto) Seg Neutrophils % Seg Neuts % (Manual) Nucleated RBC % Seg Neutrophils # Seg Neutrophils # Man Lymphocytes # (Manual) ABG pH POC ABG pCO2 POC ABG pO2 ABG Hemoglobin ABG Sodium ABG Potassium ABG Glucose Carboxyhemoglobin Sodium Potassium Chloride Carbon Dioxide BUN 22 H Creatinine Glucose 101 H POC Glucose 119 H Lactic Acid Calcium 7.9 L Phosphorus AST ALT CK-MB (CK-2) Rel Index Troponin T NT-Pro-B Natriuret Pep Serum Total Protein 5.3 L Total Protein 5.5 L Albumin 2.8 L 2.8 L Vhvon-3-Okxrpvjzd 0.4 H Gamma Globulins 0.7 L PEP Interpretation see below H HDL Cholesterol Arterial Blood Glucose Arterial Blood Ionized Calcium Urine WBC (Auto) Urine Creatinine Hepatitis C Antibody 11/23/20 11/23/20 11/24/20 18:21 23:28 01:48 WBC RBC Hgb Hct MCV Lymph % (Auto) [place] % (Auto) Lymph # (Auto) [place] # (Auto) Seg Neutrophils % Seg Neuts % (Manual) Nucleated RBC % Seg Neutrophils # Seg Neutrophils # Man Lymphocytes # (Manual) ABG pH 7.281 L POC ABG pCO2 58.4 H POC ABG pO2 ABG Hemoglobin 11.8 L ABG Sodium ABG Potassium ABG Glucose 101 H Carboxyhemoglobin Sodium Potassium Chloride Carbon Dioxide BUN Creatinine Glucose POC Glucose 106 H 108 H Lactic Acid Calcium Phosphorus AST ALT CK-MB (CK-2) Rel Index Troponin T NT-Pro-B Natriuret Pep Serum Total Protein Total Protein Albumin Hpykz-8-Rvjybxdut Gamma Globulins PEP Interpretation HDL Cholesterol Arterial Blood Glucose 101 H Arterial Blood Ionized Calcium Urine WBC (Auto) Urine Creatinine Hepatitis C Antibody 11/24/20 11/24/20 11/25/20 09:58 09:58 00:29 WBC RBC Hgb Hct MCV Lymph % (Auto) [place] % (Auto) Lymph # (Auto) [place] # (Auto) Seg Neutrophils % Seg Neuts % (Manual) Nucleated RBC % Seg Neutrophils # Seg Neutrophils # Man Lymphocytes # (Manual) ABG pH POC ABG pCO2 POC ABG pO2 ABG Hemoglobin ABG Sodium ABG Potassium ABG Glucose Carboxyhemoglobin Sodium 148 H Potassium Chloride Carbon Dioxide 34 H D BUN Creatinine Glucose POC Glucose 111 H Lactic Acid 0.60 L Calcium Phosphorus AST ALT CK-MB (CK-2) Rel Index Troponin T NT-Pro-B Natriuret Pep Serum Total Protein Total Protein Albumin Mcssh-0-Rkabwvpwz Gamma Globulins PEP Interpretation HDL Cholesterol Arterial Blood Glucose Arterial Blood Ionized Calcium Urine WBC (Auto) Urine Creatinine Hepatitis C Antibody 11/25/20 11/25/20 11/25/20 05:48 08:18 08:18 WBC 13.2 H RBC 3.56 L Hgb 10.9 L Hct 34.0 L MCV 96 H Lymph % (Auto) [place] % (Auto) Lymph # (Auto) [place] # (Auto) Seg Neutrophils % Seg Neuts % (Manual) 98.0 H Nucleated RBC % 1.0 H Seg Neutrophils # Seg Neutrophils # Man 12.9 H Lymphocytes # (Manual) 0.0 L ABG pH POC ABG pCO2 POC ABG pO2 ABG Hemoglobin ABG Sodium ABG Potassium ABG Glucose Carboxyhemoglobin Sodium 147 H Potassium Chloride Carbon Dioxide 32 H BUN 26 H Creatinine Glucose 151 H POC Glucose 148 H Lactic Acid Calcium Phosphorus AST ALT CK-MB (CK-2) Rel Index Troponin T NT-Pro-B Natriuret Pep Serum Total Protein Total Protein 6.0 L Albumin 3.7 L Lflma-1-Kbfasxirp Gamma Globulins PEP Interpretation HDL Cholesterol Arterial Blood Glucose Arterial Blood Ionized Calcium Urine WBC (Auto) Urine Creatinine Hepatitis C Antibody 11/25/20 11/25/20 11/25/20 11:34 18:03 23:15 WBC RBC Hgb Hct MCV Lymph % (Auto) [place] % (Auto) Lymph # (Auto) [place] # (Auto) Seg Neutrophils % Seg Neuts % (Manual) Nucleated RBC % Seg Neutrophils # Seg Neutrophils # Man Lymphocytes # (Manual) ABG pH POC ABG pCO2 POC ABG pO2 ABG Hemoglobin ABG Sodium ABG Potassium ABG Glucose Carboxyhemoglobin Sodium Potassium Chloride Carbon Dioxide BUN Creatinine Glucose POC Glucose 144 H 147 H 158 H Lactic Acid Calcium Phosphorus AST ALT CK-MB (CK-2) Rel Index Troponin T NT-Pro-B Natriuret Pep Serum Total Protein Total Protein Albumin Dhtnn-1-Qfqgwecbm Gamma Globulins PEP Interpretation HDL Cholesterol Arterial Blood Glucose Arterial Blood Ionized Calcium Urine WBC (Auto) Urine Creatinine Hepatitis C Antibody 11/26/20 11/26/20 11/26/20 05:07 06:22 06:22 WBC 12.3 H RBC 3.52 L Hgb 11.1 L Hct 33.6 L MCV 95 H Lymph % (Auto) [place] % (Auto) Lymph # (Auto) [place] # (Auto) Seg Neutrophils % Seg Neuts % (Manual) Nucleated RBC % Seg Neutrophils # Seg Neutrophils # Man Lymphocytes # (Manual) ABG pH POC ABG pCO2 POC ABG pO2 ABG Hemoglobin ABG Sodium ABG Potassium ABG Glucose Carboxyhemoglobin Sodium Potassium 3.3 L Chloride 95.8 L Carbon Dioxide 33 H BUN 35 H Creatinine 1.4 H Glucose 185 H POC Glucose 184 H Lactic Acid Calcium Phosphorus AST ALT CK-MB (CK-2) Rel Index Troponin T 0.036 H D NT-Pro-B Natriuret Pep Serum Total Protein Total Protein 6.2 L Albumin 3.1 L Abuuc-4-Lbhfswuwj Gamma Globulins PEP Interpretation HDL Cholesterol Arterial Blood Glucose Arterial Blood Ionized Calcium Urine WBC (Auto) Urine Creatinine Hepatitis C Antibody 11/26/20 11/26/20 11/26/20 12:52 17:30 23:14 WBC RBC Hgb Hct MCV Lymph % (Auto) [place] % (Auto) Lymph # (Auto) [place] # (Auto) Seg Neutrophils % Seg Neuts % (Manual) Nucleated RBC % Seg Neutrophils # Seg Neutrophils # Man Lymphocytes # (Manual) ABG pH POC ABG pCO2 POC ABG pO2 ABG Hemoglobin ABG Sodium ABG Potassium ABG Glucose Carboxyhemoglobin Sodium Potassium Chloride Carbon Dioxide BUN Creatinine Glucose POC Glucose 170 H 133 H 149 H Lactic Acid Calcium Phosphorus AST ALT CK-MB (CK-2) Rel Index Troponin T NT-Pro-B Natriuret Pep Serum Total Protein Total Protein Albumin Roktp-8-Sqcvmrrtj Gamma Globulins PEP Interpretation HDL Cholesterol Arterial Blood Glucose Arterial Blood Ionized Calcium Urine WBC (Auto) Urine Creatinine Hepatitis C Antibody 11/27/20 11/27/20 11/27/20 05:35 08:03 12:02 WBC RBC Hgb Hct MCV Lymph % (Auto) [place] % (Auto) Lymph # (Auto) [place] # (Auto) Seg Neutrophils % Seg Neuts % (Manual) Nucleated RBC % Seg Neutrophils # Seg Neutrophils # Man Lymphocytes # (Manual) ABG pH POC ABG pCO2 POC ABG pO2 ABG Hemoglobin ABG Sodium ABG Potassium ABG Glucose Carboxyhemoglobin Sodium Potassium Chloride 97.0 L Carbon Dioxide 31 H BUN 41 H Creatinine 1.4 H Glucose 145 H POC Glucose 135 H 139 H Lactic Acid Calcium Phosphorus 2.20 L AST ALT CK-MB (CK-2) Rel Index Troponin T NT-Pro-B Natriuret Pep Serum Total Protein Total Protein Albumin Mrsyl-9-Krkcoesll Gamma Globulins PEP Interpretation HDL Cholesterol Arterial Blood Glucose Arterial Blood Ionized Calcium Urine WBC (Auto) Urine Creatinine Hepatitis C Antibody 11/27/20 11/28/20 11/28/20 18:41 05:26 06:08 WBC RBC Hgb Hct MCV Lymph % (Auto) [place] % (Auto) Lymph # (Auto) [place] # (Auto) Seg Neutrophils % Seg Neuts % (Manual) Nucleated RBC % Seg Neutrophils # Seg Neutrophils # Man Lymphocytes # (Manual) ABG pH POC ABG pCO2 POC ABG pO2 ABG Hemoglobin ABG Sodium ABG Potassium ABG Glucose Carboxyhemoglobin Sodium Potassium Chloride Carbon Dioxide BUN 45 H Creatinine 1.4 H Glucose 135 H POC Glucose 148 H 143 H Lactic Acid Calcium Phosphorus AST ALT CK-MB (CK-2) Rel Index Troponin T NT-Pro-B Natriuret Pep Serum Total Protein Total Protein Albumin Dxeln-3-Forzeotxg Gamma Globulins PEP Interpretation HDL Cholesterol Arterial Blood Glucose Arterial Blood Ionized Calcium Urine WBC (Auto) Urine Creatinine Hepatitis C Antibody 11/28/20 11/28/20 11/28/20 11:46 17:31 21:17 WBC RBC Hgb Hct MCV Lymph % (Auto) [place] % (Auto) Lymph # (Auto) [place] # (Auto) Seg Neutrophils % Seg Neuts % (Manual) Nucleated RBC % Seg Neutrophils # Seg Neutrophils # Man Lymphocytes # (Manual) ABG pH POC ABG pCO2 POC ABG pO2 ABG Hemoglobin ABG Sodium ABG Potassium ABG Glucose Carboxyhemoglobin Sodium Potassium Chloride Carbon Dioxide BUN Creatinine Glucose POC Glucose 132 H 156 H 122 H Lactic Acid Calcium Phosphorus AST ALT CK-MB (CK-2) Rel Index Troponin T NT-Pro-B Natriuret Pep Serum Total Protein Total Protein Albumin Jhjhl-7-Zophxvikc Gamma Globulins PEP Interpretation HDL Cholesterol Arterial Blood Glucose Arterial Blood Ionized Calcium Urine WBC (Auto) Urine Creatinine Hepatitis C Antibody 11/29/20 11/29/20 11/29/20 00:06 04:43 05:15 WBC RBC Hgb Hct MCV Lymph % (Auto) [place] % (Auto) Lymph # (Auto) [place] # (Auto) Seg Neutrophils % Seg Neuts % (Manual) Nucleated RBC % Seg Neutrophils # Seg Neutrophils # Man Lymphocytes # (Manual) ABG pH POC ABG pCO2 POC ABG pO2 ABG Hemoglobin ABG Sodium ABG Potassium ABG Glucose Carboxyhemoglobin Sodium Potassium Chloride 97.7 L Carbon Dioxide BUN 56 H Creatinine 1.6 H Glucose 132 H POC Glucose 114 H 125 H Lactic Acid Calcium Phosphorus AST ALT CK-MB (CK-2) Rel Index Troponin T NT-Pro-B Natriuret Pep Serum Total Protein Total Protein Albumin Jjolp-0-Hgqjmwkpx Gamma Globulins PEP Interpretation HDL Cholesterol Arterial Blood Glucose Arterial Blood Ionized Calcium Urine WBC (Auto) Urine Creatinine Hepatitis C Antibody 11/29/20 11/29/20 11/30/20 12:09 18:12 04:47 WBC RBC Hgb Hct MCV Lymph % (Auto) [place] % (Auto) Lymph # (Auto) [place] # (Auto) Seg Neutrophils % Seg Neuts % (Manual) Nucleated RBC % Seg Neutrophils # Seg Neutrophils # Man Lymphocytes # (Manual) ABG pH POC ABG pCO2 POC ABG pO2 ABG Hemoglobin ABG Sodium ABG Potassium ABG Glucose Carboxyhemoglobin Sodium Potassium Chloride Carbon Dioxide 31 H BUN 59 H Creatinine 1.6 H Glucose 122 H POC Glucose 142 H 132 H Lactic Acid Calcium Phosphorus AST ALT CK-MB (CK-2) Rel Index Troponin T NT-Pro-B Natriuret Pep Serum Total Protein Total Protein Albumin Emymx-7-Bwynpehqi Gamma Globulins PEP Interpretation HDL Cholesterol Arterial Blood Glucose Arterial Blood Ionized Calcium Urine WBC (Auto) Urine Creatinine Hepatitis C Antibody 11/30/20 11/30/20 11/30/20 05:45 11:47 18:16 WBC RBC Hgb Hct MCV Lymph % (Auto) [place] % (Auto) Lymph # (Auto) [place] # (Auto) Seg Neutrophils % Seg Neuts % (Manual) Nucleated RBC % Seg Neutrophils # Seg Neutrophils # Man Lymphocytes # (Manual) ABG pH POC ABG pCO2 POC ABG pO2 ABG Hemoglobin ABG Sodium ABG Potassium ABG Glucose Carboxyhemoglobin Sodium Potassium Chloride Carbon Dioxide BUN Creatinine Glucose POC Glucose 118 H 123 H 126 H Lactic Acid Calcium Phosphorus AST ALT CK-MB (CK-2) Rel Index Troponin T NT-Pro-B Natriuret Pep Serum Total Protein Total Protein Albumin Scpfi-1-Hchedzudn Gamma Globulins PEP Interpretation HDL Cholesterol Arterial Blood Glucose Arterial Blood Ionized Calcium Urine WBC (Auto) Urine Creatinine Hepatitis C Antibody 12/01/20 12/01/20 12/01/20 00:11 04:57 05:41 WBC RBC Hgb Hct MCV Lymph % (Auto) [place] % (Auto) Lymph # (Auto) [place] # (Auto) Seg Neutrophils % Seg Neuts % (Manual) Nucleated RBC % Seg Neutrophils # Seg Neutrophils # Man Lymphocytes # (Manual) ABG pH POC ABG pCO2 POC ABG pO2 ABG Hemoglobin ABG Sodium ABG Potassium ABG Glucose Carboxyhemoglobin Sodium Potassium Chloride Carbon Dioxide BUN 52 H Creatinine 1.4 H Glucose 121 H POC Glucose 117 H 120 H Lactic Acid Calcium Phosphorus AST ALT CK-MB (CK-2) Rel Index Troponin T NT-Pro-B Natriuret Pep Serum Total Protein Total Protein Albumin Bxlqe-2-Jcfdzbvon Gamma Globulins PEP Interpretation HDL Cholesterol Arterial Blood Glucose Arterial Blood Ionized Calcium Urine WBC (Auto) Urine Creatinine Hepatitis C Antibody 12/01/20 12/02/20 12/02/20 23:35 06:02 08:09 WBC RBC Hgb Hct MCV Lymph % (Auto) [place] % (Auto) Lymph # (Auto) [place] # (Auto) Seg Neutrophils % Seg Neuts % (Manual) Nucleated RBC % Seg Neutrophils # Seg Neutrophils # Man Lymphocytes # (Manual) ABG pH POC ABG pCO2 POC ABG pO2 ABG Hemoglobin ABG Sodium ABG Potassium ABG Glucose Carboxyhemoglobin Sodium Potassium Chloride Carbon Dioxide BUN Creatinine Glucose POC Glucose 117 H 108 H 117 H Lactic Acid Calcium Phosphorus AST ALT CK-MB (CK-2) Rel Index Troponin T NT-Pro-B Natriuret Pep Serum Total Protein Total Protein Albumin Umfwq-7-Cfjzqxjwt Gamma Globulins PEP Interpretation HDL Cholesterol Arterial Blood Glucose Arterial Blood Ionized Calcium Urine WBC (Auto) Urine Creatinine Hepatitis C Antibody 12/02/20 12/02/20 12/02/20 09:40 11:33 17:34 WBC RBC Hgb Hct MCV Lymph % (Auto) [place] % (Auto) Lymph # (Auto) [place] # (Auto) Seg Neutrophils % Seg Neuts % (Manual) Nucleated RBC % Seg Neutrophils # Seg Neutrophils # Man Lymphocytes # (Manual) ABG pH POC ABG pCO2 POC ABG pO2 ABG Hemoglobin ABG Sodium ABG Potassium ABG Glucose Carboxyhemoglobin Sodium Potassium Chloride 97.6 L Carbon Dioxide 35 H BUN 45 H Creatinine Glucose POC Glucose 109 H 124 H Lactic Acid Calcium Phosphorus AST ALT CK-MB (CK-2) Rel Index Troponin T NT-Pro-B Natriuret Pep Serum Total Protein Total Protein Albumin Nzssu-9-Zpwcwhgdx Gamma Globulins PEP Interpretation HDL Cholesterol Arterial Blood Glucose Arterial Blood Ionized Calcium Urine WBC (Auto) Urine Creatinine Hepatitis C Antibody 12/03/20 12/03/20 12/03/20 05:40 07:16 16:46 WBC RBC Hgb Hct MCV Lymph % (Auto) [place] % (Auto) Lymph # (Auto) [place] # (Auto) Seg Neutrophils % Seg Neuts % (Manual) Nucleated RBC % Seg Neutrophils # Seg Neutrophils # Man Lymphocytes # (Manual) ABG pH POC ABG pCO2 POC ABG pO2 ABG Hemoglobin ABG Sodium ABG Potassium ABG Glucose Carboxyhemoglobin Sodium Potassium Chloride Carbon Dioxide BUN 44 H Creatinine Glucose 117 H POC Glucose 115 H 106 H Lactic Acid Calcium Phosphorus AST ALT CK-MB (CK-2) Rel Index Troponin T NT-Pro-B Natriuret Pep Serum Total Protein Total Protein Albumin Fyeuy-9-Pkwfdphac Gamma Globulins PEP Interpretation HDL Cholesterol Arterial Blood Glucose Arterial Blood Ionized Calcium Urine WBC (Auto) Urine Creatinine Hepatitis C Antibody 12/03/20 12/04/20 12/04/20 21:55 07:53 11:43 WBC RBC Hgb Hct MCV Lymph % (Auto) [place] % (Auto) Lymph # (Auto) [place] # (Auto) Seg Neutrophils % Seg Neuts % (Manual) Nucleated RBC % Seg Neutrophils # Seg Neutrophils # Man Lymphocytes # (Manual) ABG pH POC ABG pCO2 POC ABG pO2 ABG Hemoglobin ABG Sodium ABG Potassium ABG Glucose Carboxyhemoglobin Sodium Potassium Chloride Carbon Dioxide BUN Creatinine Glucose POC Glucose 113 H 110 H 110 H Lactic Acid Calcium Phosphorus AST ALT CK-MB (CK-2) Rel Index Troponin T NT-Pro-B Natriuret Pep Serum Total Protein Total Protein Albumin Sqjeb-[id number] Gamma Globulins PEP Interpretation HDL Cholesterol Arterial Blood Glucose Arterial Blood Ionized Calcium Urine WBC (Auto) Urine Creatinine Hepatitis C Antibody 12/04/20 17:21 WBC RBC Hgb Hct MCV Lymph % (Auto) [place] % (Auto) Lymph # (Auto) [place] # (Auto) Seg Neutrophils % Seg Neuts % (Manual) Nucleated RBC % Seg Neutrophils # Seg Neutrophils # Man Lymphocytes # (Manual) ABG pH POC ABG pCO2 POC ABG pO2 ABG Hemoglobin ABG Sodium ABG Potassium ABG Glucose Carboxyhemoglobin Sodium Potassium Chloride Carbon Dioxide BUN Creatinine Glucose POC Glucose 135 H Lactic Acid Calcium Phosphorus AST ALT CK-MB (CK-2) Rel Index Troponin T NT-Pro-B Natriuret Pep Serum Total Protein Total Protein Albumin Rlelc-[id number] Gamma Globulins PEP Interpretation HDL Cholesterol Arterial Blood Glucose Arterial Blood Ionized Calcium Urine WBC (Auto) Urine Creatinine Hepatitis C Antibody
[2020-12-08] MEDS ORDERED: FUROSEMIDE 20 MG/2 ML INJ IV SCH (10:00)
--- NOTE | 2020-12-08 10:08 | XRay Report ---
CHEST 1 VIEW INDICATION: Worsening Hypoxemia. COMPARISON: 11/24/2020 FINDINGS: Support devices: None. Heart: Normal. Lungs/Pleura: Lung volumes are decreased. There are mild bibasilar opacities. There is a small left p leural effusion. IMPRESSION: 1. Bibasilar opacities could be due at least in part to atelectasis given the low lung volumes. 2. Small left pleural effusion. Signer Name: Sin Azar MD Signed: 12/08/2020 10:04 AM Workstation Name: [id number]
[2020-12-08 10:31] LABS: BUN/Creatinine Ratio 43; Blood Urea Nitrogen 34 mg/dL (9-20); Calcium 9.4 mg/dL (8.4-10.2); Hemolysis Index 29
[2020-12-08] MEDS: methylPREDNISolone Sod Succinate 125 MG/2 ML INJ IV SCH ×2 (12:50→18:44)
[2020-12-08] MEDS: TAMSULOSIN 0.4 MG CAP PO SCH (13:02)
[2020-12-08] MEDS: QUEtiapine 25 MG TAB PO SCH ×2 (13:02→22:55)
[2020-12-08] MEDS: SENNOSIDES/DOCUSATE SODIUM 8.6/50 MG TAB FEEDTUBE SCH ×2 (13:03→22:55)
[2020-12-08] MEDS: LANSOPRAZOLE 30 MG SOLUTAB FEEDTUBE SCH (13:03)
[2020-12-08] MEDS: ASPIRIN 81 MG TAB CHEW PO SCH (13:03)
--- NOTE | 2020-12-08 16:52 | Progress Note ---
Assessment and Plan Impression * Acute kidney injury * Severe hyperkalemia * Respiratory failure * Coronary artery disease * Hypertension * COPD * Bladder cancer * Hepatitis C Recommendations * Hyperkalemia has been corrected with aggressive medical management. * Renal function has improved with creatinine 1.6->1.4->1.2->1.2>0.8, Patient is also currently nonoliguric * Plan for diuretics noted * BP improved today with increased carvedilol dosing 12.5mg BID * His urine shows 1+ dipstick protein and large blood. Fractional excretion of sodium is 0.4%. He most likely has a prerenal component. However given his microhematuria rule out vasculitis. Vasculitis work-up as ordered- complements WNL, ANCA/INGA negative, HCV ab is positive. Check PCR * Renal ultrasound shows atrophic left kidney. No obstruction. * Monitor fluid status and electrolytes closely * Avoid nephrotoxins * Will monitor peripherally, will need GI consult if PCR reveal viral load Subjective Date of service: 12/08/20 Principal diagnosis: Acute respiratory failure Interval history: In bed. On high flow. Objective - Exam Narrative Exam: General: Mild distress HEENT: Oral mucosa moist Neck: Supple, no JVD Chest: Decreased breath sounds bibasilar Heart: RRR, S1 and S2, no pericardial rub Abdomen: Soft, nontender, no renal bruit Extremity: No peripheral cyanosis, edema Neurological: Alert, awake, no asterixis Dermatology: No skin rash Psych: No agitation Musculoskeletal: No joint effusion - Vital Signs Vital signs: Vital Signs - 12hr 12/08/20 12/08/20 12/08/20 05:54 06:02 07:31 Temperature 97.9 F Pulse Rate 89 85 Pulse Rate [ 88 Anterior Bilateral Throughout] Respiratory 18 Rate Respiratory 19 Rate [Anterior Bilateral Throughout] Blood Pressure 190/97 185/87 Blood Pressure [Left] O2 Sat by Pulse 96 Oximetry 12/08/20 12/08/20 12/08/20 07:32 08:00 08:54 Temperature 98.0 F Pulse Rate 89 60 Pulse Rate [ Anterior Bilateral Throughout] Respiratory 18 Rate Respiratory Rate [Anterior Bilateral Throughout] Blood Pressure Blood Pressure 123/81 [Left] O2 Sat by Pulse 91 90 Oximetry 12/08/20 12/08/20 12/08/20 12:12 14:00 16:02 Temperature 98.6 F Pulse Rate 91 H 81 Pulse Rate [ 83 Anterior Bilateral Throughout] Respiratory 18 Rate Respiratory 19 Rate [Anterior Bilateral Throughout] Blood Pressure 154/71 Blood Pressure 158/82 [Left] O2 Sat by Pulse 96 98 95 Oximetry 12/08/20 16:03 Temperature 98.3 F Pulse Rate Pulse Rate [ Anterior Bilateral Throughout] Respiratory 18 Rate Respiratory Rate [Anterior Bilateral Throughout] Blood Pressure Blood Pressure [Left] O2 Sat by Pulse Oximetry - Lab 11/28/20 09:21 12/08/20 09:43 Most recent lab results ABG pH 7.281 (7.320-7.450) L 11/24/20 01:48 ABG O2 Saturation 96.9 (0-100) 11/24/20 01:48 Calcium 9.4 mg/dL (8.4-10.2) 12/08/20 09:43 Phosphorus 2.80 mg/dL (2.5-4.5) 12/08/20 03:31 Magnesium 2.00 mg/dL (1.7-2.3) 12/08/20 03:31 Urine Creatinine 158.2 mg/dL (0.1-20.0) H 11/22/20 00:11 Urine Sodium 39 mmol/L 11/22/20 00:11 Medications & Allergies - Medications Allergies/Adverse Reactions: Allergies No Known Allergies Allergy (Verified 11/11/18 08:08) Home Medications: Home Medications Medication Instructions Recorded Confirmed Last Taken Type Pantoprazole [Protonix TAB] 40 mg PO QDAY #30 tablet 04/11/19 11/22/20 Unknown Rx AtorvaSTATin 20 mg PO QHS 06/13/19 11/22/20 06/12/19 21:00 History Tamsulosin 0.4 mg PO DAILY 06/13/19 11/22/20 06/12/19 21:00 History carvediloL [Coreg] 3.125 mg PO BID 06/13/19 11/22/20 06/11/19 21:00 History Gabapentin 300 mg PO BID 11/22/20 11/22/20 Unknown History Active Medications: Generic Name Dose Route Start Last Admin Trade Name Freq PRN Reason Stop Dose Admin Acetaminophen 650 mg 11/23/20 15:29 12/02/20 14:30 Acetaminophen 325 Mg Tab PO 650 mg Q4H PRN Administration Pain, Mild (1-3) Albuterol 2.5 mg 11/22/20 01:19 Albuterol 2.5 Mg/3 Ml Nebu IH Q4HRT PRN Shortness Of Breath Albuterol/Ipratropium 1 ampul 11/22/20 02:00 12/08/20 14:13 Ipratropium/Albuterol Sulfate 3 Ml Ampul.Neb IH 1 ampul Q6HRT TERESA Administration Lipase/Protease/Amylase 1 each 11/22/20 09:07 Lipase 10,500/Protease 25,000/Amylase 43,750 (Units) Dr Cyr FEEDTUBE PRN PRN For Clogged Feeding Tube Aspirin 81 mg 11/23/20 10:00 12/08/20 13:03 Aspirin 81 Mg Tab Chew PO 81 mg QDAY TERESA Administration Atorvastatin Calcium 40 mg 11/22/20 22:00 12/07/20 22:20 Atorvastatin 40 Mg Tab PO 40 mg QHS TERESA Administration Budesonide 0.5 mg 11/24/20 14:55 12/08/20 07:31 Budesonide 0.5 Mg/2 Ml Nebu IH 0.5 mg Q12HRT TERESA Administration Carvedilol 12.5 mg 12/03/20 22:00 12/07/20 22:16 Carvedilol 12.5 Mg Tab PO 12.5 mg BID TERESA Administration Heparin Sodium (Porcine) 5,000 unit 11/22/20 06:00 12/08/20 13:00 Heparin 5,000 Unit/1 Ml Vial SUB-Q 5,000 unit Q8HR TERESA Administration Hydralazine HCl 10 mg 11/22/20 01:24 12/08/20 06:02 Hydralazine 20 Mg/1 Ml Inj IV 10 mg Q6H PRN Administration Blood Pressure Lansoprazole 30 mg 11/28/20 10:00 12/08/20 13:03 Lansoprazole 30 Mg Solutab FEEDTUBE 30 mg QDAY TERESA Administration Methylprednisolone Sodium Succinate 60 mg 12/08/20 12:00 12/08/20 12:50 Methylprednisolone Sod Succinate 125 Mg/2 Ml Inj IV 60 mg Q6HR TERESA Administration Nitroglycerin 0.4 mg 11/22/20 01:25 12/06/20 05:22 Nitroglycerin 0.4 Mg Tab Subl SL 0.4 mg Q5M PRN Administration Chest Pain Ondansetron HCl 4 mg 11/22/20 01:19 Ondansetron 4 Mg/2 Ml Inj IV Q8H PRN Nausea And Vomiting Quetiapine Fumarate 25 mg 11/27/20 12:00 12/08/20 13:02 Quetiapine 25 Mg Tab PO 25 mg BID TERESA Administration Senna/Docusate Sodium 1 tab 11/22/20 10:00 12/08/20 13:03 Sennosides/Docusate Sodium 8.6/50 Mg Tab FEEDTUBE 1 tab BID TERESA Administration Simple Syrup 15 ml 11/22/20 09:07 Simple Syrup 15 Ml FEEDTUBE PRN PRN Hypoglycemia Simple Syrup 30 ml 11/22/20 09:07 Simple Syrup 15 Ml FEEDTUBE PRN PRN Hypoglycemia Sodium Bicarbonate 325 mg 11/22/20 09:07 Sodium Bicarbonate 325 Mg Tab FEEDTUBE PRN PRN For Clogged Feeding Tube Sodium Chloride 10 ml 11/22/20 10:00 12/08/20 13:03 Sodium Chloride 0.9% 10 Ml Flush Syringe IV 10 ml BID TERESA Administration Sodium Chloride 10 ml 11/22/20 01:19 Sodium Chloride 0.9% 10 Ml Flush Syringe IV PRN PRN LINE FLUSH Tamsulosin HCl 0.4 mg 11/22/20 10:00 12/08/20 13:02 Tamsulosin 0.4 Mg Cap PO 0.4 mg DAILY TERESA Administration
[2020-12-08] MEDS: carvediloL 12.5 MG TAB PO SCH ×2 (18:44→22:55)
[2020-12-09] MEDS: methylPREDNISolone Sod Succinate 125 MG/2 ML INJ IV SCH ×4 (00:05→19:37)
[2020-12-09] MEDS: IPRATROPIUM/ALBUTEROL SULFATE 3 ML AMPUL.NEB IH SCH ×4 (02:26→20:08)
[2020-12-09] MEDS: hydrALAZINE 20 MG/1 ML INJ IV PRN (05:44)
[2020-12-09] MEDS: HEPARIN 5,000 UNIT/1 ML VIAL SUB-Q SCH ×3 (05:47→21:10)
[2020-12-09] MEDS ORDERED: FUROSEMIDE 40 MG/4 ML INJ IV NR (08:20)
--- NOTE | 2020-12-09 08:24 | Progress Note ---
Assessment and Plan 85 y/o chinese male admitted with acute hypoxic respiratory failure. 12/09/20: Continue High Dose IV steroids. Follow up BNP. Today will give lasix 40mg IV x1. Please ask CM to appeal LTACH denial as patient will need it. After speaking with RT, patient becomes very agitated and frustrated secondary to language barrier and will remove supplemental O2 requiring him to be put on higher numbers to recover. Suggest using language line more often or calling daughter who is in the medical profession and speaks very good amharic. Will continue to follow. 12/08/20: with change in oxygen requirement, will place back on IV steroids. Will order labs including BNP today and give lasix 20mg IV x1. Initial LTACH request was denied, suggest having CM appeal it now that patient is back on HFNC. Will continue to follow. 12/06/20: Steroid taper as follows: 60 daily for 5 days, 40 daily for 5 days, 20 daily for 5 days, 10 daily for 5 days. Resume whatever home regimen patient was on at home. Wean Oxygen for sats >88%, likely patient will be fine on 2-3 liters, does not need 4. Will sign off. Call if questions. 12/05/20: Change to oral steroids starting tomorrow with prolonged taper. Likely dischargeable over the weekend. 12/04/20: LTACH denied. Continue to wean. Continue IV steroids. 12/03/20: Follow up with CM in regards to LTACH. Continue IV steroids. Wean FiO2 as tolerated. PT/OT if not already evaluated. Patient stable enough to transfer to floor. 12/02/20: CM still waiting to hear back from LTACH in regards to auth. Continue to wean FiO2 as tolerated for sats >88%. Continue IV steroids. 12/01/20: Wean HFNC for sats >88%. Spoke with CM about checking on LTACH but patient may be able to be weaned further now while in house. Will speak with RT about this. If placed on salter, may need to consider transfer to medical/surgical floor with remote tele. 11/28/20: Continue to wean HFNC. Agree with holding Precedex, can increase seroquel if needed to help with mood. Hopeful that over the weekend will be down to nasal cannula and can transfer to the floor. CM working on LTACH evaluation. Patient is stable for transfer, if and when accepted. 11/27/20: Will transfer to step down today. Agree with bedside swallow eval now that patient is more awake. Will try bID seroquel to help with mood and agitation. Hopeful Cr has stablized. Continue steroids at 40q8. Consider LTACH evaluation 11/26/20: 11/25/20: Continue bipap for right now. Added precedex and stopped ativan as this may be worsening agitation. Ok with haldol use. Continue daily diuretics to keep patient net negative. Continue ICU monitoring for now. Renal function is better. Guarded prognosis. 11/23/20: Wean sedation to off. If patient can tolerate being off sedation, will attempt PSV trial, otherwise, will likely have to just stop sedation and extubate, will have bipap ready for as needed purposes. Needs chemistry to assess renal function. Out put was good. 1. Repeat ABG later this afternoon and wean FIO2 according (>88%) 2. Stop sedation, need to assess mental state 3. Follow up renal function and urine output. 4. Guarded prognosis, this is likely acute on chronic respiratory failure. cct 31 minutes. Subjective Date of service: 12/09/20 Principal diagnosis: Acute respiratory failure Interval history: Called by charge nurse yesterday that IMS was concerned about patient coding and was wondering if transfer was warranted. I was out of hospital so spoke with RT who was managing patient. No concern so no transfer at that time. This am on 20 and 100%. Sats in the low 90's. Labs normal. BNP pending for today. If I/O accurate, responded well to lasix. CXR reviewed. Objective Vital Signs - 12hr 12/08/20 12/08/20 12/08/20 20:33 20:36 22:00 Temperature Pulse Rate Pulse Rate [ 86 Anterior Bilateral Throughout] Pulse Rate [ 84 From Monitor] Pulse Rate [ 84 Left Radial] Pulse Rate [ 84 Right Radial] Respiratory 22 Rate Respiratory 20 Rate [Anterior Bilateral Throughout] Respiratory 22 Rate [ Generalized] Blood Pressure O2 Sat by Pulse 79 L 94 Oximetry 12/08/20 12/08/20 12/09/20 22:55 23:07 02:27 Temperature 97.4 F L Pulse Rate 81 79 Pulse Rate [ 92 H Anterior Bilateral Throughout] Pulse Rate [ From Monitor] Pulse Rate [ Left Radial] Pulse Rate [ Right Radial] Respiratory 20 Rate Respiratory 20 Rate [Anterior Bilateral Throughout] Respiratory Rate [ Generalized] Blood Pressure 182/85 172/83 O2 Sat by Pulse 94 Oximetry 12/09/20 12/09/20 12/09/20 02:28 03:31 05:44 Temperature 97.8 F Pulse Rate 77 74 Pulse Rate [ Anterior Bilateral Throughout] Pulse Rate [ From Monitor] Pulse Rate [ Left Radial] Pulse Rate [ Right Radial] Respiratory 22 Rate Respiratory Rate [Anterior Bilateral Throughout] Respiratory Rate [ Generalized] Blood Pressure 187/83 162/72 O2 Sat by Pulse 92 64 L Oximetry Constitutional: no acute distress, alert Eyes: non-icteric ENT: oropharynx moist Neck: supple, other (large in circumference) Effort: normal Ascultation: Bilateral: clear, diminished breath sounds, wheezes Percussion: Bilateral: not dull Cardiovascular: other (tachy, no mrg) Gastrointestinal: normoactive bowel sounds, soft, non-tender, non-distended Extremities: no cyanosis, no edema, pink and warm Neurologic: normal mental status, non-focal exam, pupils equal and round Psychiatric: mood appropriate, affect normal CBC and BMP: 11/28/20 09:21 12/08/20 09:43 ABG, PT/INR, D-dimer: ABG ABG pH 7.281 (7.320-7.450) L 11/24/20 01:48 POC ABG pCO2 58.4 mmHg (32.0-48.0) H 11/24/20 01:48 POC ABG pO2 98.1 mmHg (83-108) 11/24/20 01:48 POC ABG HCO3 26.9 11/24/20 01:48 ABG O2 Saturation 96.9 (0-100) 11/24/20 01:48 PT/INR, D-dimer PT 13.5 Sec. (12.2-14.9) 11/21/20 20:50 INR 0.98 (0.87-1.13) 11/21/20 20:50 Abnormal lab findings: Abnormal Labs 11/21/20 11/21/20 11/22/20 20:50 20:50 00:11 WBC RBC 3.48 L Hgb 11.1 L Hct 34.3 L MCV 99 H Lymph % (Auto) 6.8 L [place] % (Auto) Lymph # (Auto) 0.6 L [place] # (Auto) Seg Neutrophils % 85.5 H Seg Neuts % (Manual) Nucleated RBC % Seg Neutrophils # Seg Neutrophils # Man Lymphocytes # (Manual) ABG pH POC ABG pCO2 POC ABG pO2 ABG Hemoglobin ABG Sodium ABG Potassium ABG Glucose Carboxyhemoglobin Sodium 130 L Potassium 7.3 H* Chloride 91.1 L Carbon Dioxide BUN 40 H Creatinine 2.1 H Glucose 195 H POC Glucose Lactic Acid Calcium Phosphorus AST 91 H ALT 65 H CK-MB (CK-2) Rel Index 4.1 H Troponin T 0.045 H NT-Pro-B Natriuret Pep 6998 H Serum Total Protein Total Protein Albumin 3.7 L Mvnlz-2-Mwwajycnw Gamma Globulins PEP Interpretation HDL Cholesterol 60 H Arterial Blood Glucose Arterial Blood Ionized Calcium Urine WBC (Auto) Urine Creatinine 158.2 H Hepatitis C Antibody 11/22/20 11/22/20 11/22/20 00:23 00:40 01:37 WBC 14.1 H RBC 3.53 L Hgb 11.0 L Hct 34.1 L MCV 97 H Lymph % (Auto) 12.3 L [place] % (Auto) 14.2 H Lymph # (Auto) [place] # (Auto) 2.0 H Seg Neutrophils % 72.3 H Seg Neuts % (Manual) Nucleated RBC % Seg Neutrophils # 10.2 H Seg Neutrophils # Man Lymphocytes # (Manual) ABG pH POC ABG pCO2 POC ABG pO2 ABG Hemoglobin ABG Sodium ABG Potassium ABG Glucose Carboxyhemoglobin Sodium Potassium 5.1 H D Chloride Carbon Dioxide BUN Creatinine Glucose POC Glucose Lactic Acid 2.10 H* Calcium Phosphorus AST ALT CK-MB (CK-2) Rel Index Troponin T NT-Pro-B Natriuret Pep Serum Total Protein Total Protein Albumin Qmhhf-0-Slscrdopf Gamma Globulins PEP Interpretation HDL Cholesterol Arterial Blood Glucose Arterial Blood Ionized Calcium Urine WBC (Auto) Urine Creatinine Hepatitis C Antibody 11/22/20 11/22/20 11/22/20 01:37 03:20 05:00 WBC RBC Hgb Hct MCV Lymph % (Auto) [place] % (Auto) Lymph # (Auto) [place] # (Auto) Seg Neutrophils % Seg Neuts % (Manual) Nucleated RBC % Seg Neutrophils # Seg Neutrophils # Man Lymphocytes # (Manual) ABG pH POC ABG pCO2 58.4 H POC ABG pO2 ABG Hemoglobin 11.1 L ABG Sodium 135.1 L ABG Potassium 5.0 H ABG Glucose Carboxyhemoglobin Sodium Potassium 5.1 H Chloride Carbon Dioxide 31 H BUN 40 H Creatinine 2.0 H Glucose 49 L POC Glucose Lactic Acid Calcium Phosphorus AST ALT CK-MB (CK-2) Rel Index Troponin T NT-Pro-B Natriuret Pep Serum Total Protein Total Protein Albumin Zlobh-4-Vrxhtfchp Gamma Globulins PEP Interpretation HDL Cholesterol Arterial Blood Glucose Arterial Blood Ionized Calcium Urine WBC (Auto) 33.0 H Urine Creatinine Hepatitis C Antibody 11/22/20 11/22/20 11/22/20 05:00 05:00 05:00 WBC RBC Hgb Hct MCV Lymph % (Auto) [place] % (Auto) Lymph # (Auto) [place] # (Auto) Seg Neutrophils % Seg Neuts % (Manual) Nucleated RBC % Seg Neutrophils # Seg Neutrophils # Man Lymphocytes # (Manual) ABG pH POC ABG pCO2 POC ABG pO2 ABG Hemoglobin ABG Sodium ABG Potassium ABG Glucose Carboxyhemoglobin Sodium 136 L Potassium Chloride 97.8 L Carbon Dioxide BUN 41 H Creatinine 1.8 H 1.8 H Glucose POC Glucose Lactic Acid Calcium 8.2 L Phosphorus AST ALT CK-MB (CK-2) Rel Index Troponin T 0.065 H D NT-Pro-B Natriuret Pep Serum Total Protein Total Protein Albumin Oijmf-5-Nkrgpwvgf Gamma Globulins PEP Interpretation HDL Cholesterol Arterial Blood Glucose Arterial Blood Ionized Calcium Urine WBC (Auto) Urine Creatinine Hepatitis C Antibody 11/22/20 11/22/20 11/22/20 10:20 10:20 15:00 WBC RBC 3.16 L Hgb 10.2 L Hct 29.9 L MCV 95 H Lymph % (Auto) [place] % (Auto) Lymph # (Auto) [place] # (Auto) Seg Neutrophils % Seg Neuts % (Manual) Nucleated RBC % Seg Neutrophils # Seg Neutrophils # Man Lymphocytes # (Manual) ABG pH 7.501 H POC ABG pCO2 POC ABG pO2 ABG Hemoglobin 10.5 L ABG Sodium 134.9 L ABG Potassium ABG Glucose 115 H Carboxyhemoglobin 0.4 L Sodium Potassium Chloride Carbon Dioxide BUN Creatinine Glucose POC Glucose Lactic Acid Calcium Phosphorus AST ALT CK-MB (CK-2) Rel Index Troponin T 0.078 H NT-Pro-B Natriuret Pep Serum Total Protein Total Protein Albumin Rvdlt-0-Pniwjfdmz Gamma Globulins PEP Interpretation HDL Cholesterol Arterial Blood Glucose 115 H Arterial Blood Ionized Calcium 4.3 L Urine WBC (Auto) Urine Creatinine Hepatitis C Antibody 11/22/20 11/22/20 11/22/20 16:00 17:45 23:21 WBC RBC Hgb Hct MCV Lymph % (Auto) [place] % (Auto) Lymph # (Auto) [place] # (Auto) Seg Neutrophils % Seg Neuts % (Manual) Nucleated RBC % Seg Neutrophils # Seg Neutrophils # Man Lymphocytes # (Manual) ABG pH POC ABG pCO2 POC ABG pO2 ABG Hemoglobin ABG Sodium ABG Potassium ABG Glucose Carboxyhemoglobin Sodium Potassium Chloride Carbon Dioxide BUN Creatinine Glucose POC Glucose 107 H 115 H Lactic Acid Calcium Phosphorus AST ALT CK-MB (CK-2) Rel Index Troponin T NT-Pro-B Natriuret Pep Serum Total Protein Total Protein Albumin Qrmmu-9-Tqhhkdrre Gamma Globulins PEP Interpretation HDL Cholesterol Arterial Blood Glucose Arterial Blood Ionized Calcium Urine WBC (Auto) Urine Creatinine Hepatitis C Antibody Reactive A 11/23/20 11/23/20 11/23/20 03:03 05:33 10:00 WBC RBC 3.33 L Hgb 10.6 L Hct 32.2 L MCV 97 H Lymph % (Auto) [place] % (Auto) 15.0 H Lymph # (Auto) [place] # (Auto) 1.5 H Seg Neutrophils % Seg Neuts % (Manual) Nucleated RBC % Seg Neutrophils # Seg Neutrophils # Man Lymphocytes # (Manual) ABG pH POC ABG pCO2 POC ABG pO2 115.8 H ABG Hemoglobin 10.1 L ABG Sodium 135.8 L ABG Potassium ABG Glucose 98 H Carboxyhemoglobin 0.4 L Sodium Potassium Chloride Carbon Dioxide BUN Creatinine Glucose POC Glucose 106 H Lactic Acid Calcium Phosphorus AST ALT CK-MB (CK-2) Rel Index Troponin T NT-Pro-B Natriuret Pep Serum Total Protein Total Protein Albumin Jbtql-4-Rlwykqbou Gamma Globulins PEP Interpretation HDL Cholesterol Arterial Blood Glucose 98 H Arterial Blood Ionized Calcium 4.4 L Urine WBC (Auto) Urine Creatinine Hepatitis C Antibody 11/23/20 11/23/20 11/23/20 10:00 10:00 12:12 WBC RBC Hgb Hct MCV Lymph % (Auto) [place] % (Auto) Lymph # (Auto) [place] # (Auto) Seg Neutrophils % Seg Neuts % (Manual) Nucleated RBC % Seg Neutrophils # Seg Neutrophils # Man Lymphocytes # (Manual) ABG pH POC ABG pCO2 POC ABG pO2 ABG Hemoglobin ABG Sodium ABG Potassium ABG Glucose Carboxyhemoglobin Sodium Potassium Chloride Carbon Dioxide BUN 22 H Creatinine Glucose 101 H POC Glucose 119 H Lactic Acid Calcium 7.9 L Phosphorus AST ALT CK-MB (CK-2) Rel Index Troponin T NT-Pro-B Natriuret Pep Serum Total Protein 5.3 L Total Protein 5.5 L Albumin 2.8 L 2.8 L Nbfte-5-Cfcyplold 0.4 H Gamma Globulins 0.7 L PEP Interpretation see below H HDL Cholesterol Arterial Blood Glucose Arterial Blood Ionized Calcium Urine WBC (Auto) Urine Creatinine Hepatitis C Antibody 11/23/20 11/23/20 11/24/20 18:21 23:28 01:48 WBC RBC Hgb Hct MCV Lymph % (Auto) [place] % (Auto) Lymph # (Auto) [place] # (Auto) Seg Neutrophils % Seg Neuts % (Manual) Nucleated RBC % Seg Neutrophils # Seg Neutrophils # Man Lymphocytes # (Manual) ABG pH 7.281 L POC ABG pCO2 58.4 H POC ABG pO2 ABG Hemoglobin 11.8 L ABG Sodium ABG Potassium ABG Glucose 101 H Carboxyhemoglobin Sodium Potassium Chloride Carbon Dioxide BUN Creatinine Glucose POC Glucose 106 H 108 H Lactic Acid Calcium Phosphorus AST ALT CK-MB (CK-2) Rel Index Troponin T NT-Pro-B Natriuret Pep Serum Total Protein Total Protein Albumin Vbfmu-6-Axdgijtos Gamma Globulins PEP Interpretation HDL Cholesterol Arterial Blood Glucose 101 H Arterial Blood Ionized Calcium Urine WBC (Auto) Urine Creatinine Hepatitis C Antibody 11/24/20 11/24/20 11/25/20 09:58 09:58 00:29 WBC RBC Hgb Hct MCV Lymph % (Auto) [place] % (Auto) Lymph # (Auto) [place] # (Auto) Seg Neutrophils % Seg Neuts % (Manual) Nucleated RBC % Seg Neutrophils # Seg Neutrophils # Man Lymphocytes # (Manual) ABG pH POC ABG pCO2 POC ABG pO2 ABG Hemoglobin ABG Sodium ABG Potassium ABG Glucose Carboxyhemoglobin Sodium 148 H Potassium Chloride Carbon Dioxide 34 H D BUN Creatinine Glucose POC Glucose 111 H Lactic Acid 0.60 L Calcium Phosphorus AST ALT CK-MB (CK-2) Rel Index Troponin T NT-Pro-B Natriuret Pep Serum Total Protein Total Protein Albumin Vxmsc-1-Dryckpzhv Gamma Globulins PEP Interpretation HDL Cholesterol Arterial Blood Glucose Arterial Blood Ionized Calcium Urine WBC (Auto) Urine Creatinine Hepatitis C Antibody 11/25/20 11/25/20 11/25/20 05:48 08:18 08:18 WBC 13.2 H RBC 3.56 L Hgb 10.9 L Hct 34.0 L MCV 96 H Lymph % (Auto) [place] % (Auto) Lymph # (Auto) [place] # (Auto) Seg Neutrophils % Seg Neuts % (Manual) 98.0 H Nucleated RBC % 1.0 H Seg Neutrophils # Seg Neutrophils # Man 12.9 H Lymphocytes # (Manual) 0.0 L ABG pH POC ABG pCO2 POC ABG pO2 ABG Hemoglobin ABG Sodium ABG Potassium ABG Glucose Carboxyhemoglobin Sodium 147 H Potassium Chloride Carbon Dioxide 32 H BUN 26 H Creatinine Glucose 151 H POC Glucose 148 H Lactic Acid Calcium Phosphorus AST ALT CK-MB (CK-2) Rel Index Troponin T NT-Pro-B Natriuret Pep Serum Total Protein Total Protein 6.0 L Albumin 3.7 L Yqjox-5-Tgorquxbp Gamma Globulins PEP Interpretation HDL Cholesterol Arterial Blood Glucose Arterial Blood Ionized Calcium Urine WBC (Auto) Urine Creatinine Hepatitis C Antibody 11/25/20 11/25/20 11/25/20 11:34 18:03 23:15 WBC RBC Hgb Hct MCV Lymph % (Auto) [place] % (Auto) Lymph # (Auto) [place] # (Auto) Seg Neutrophils % Seg Neuts % (Manual) Nucleated RBC % Seg Neutrophils # Seg Neutrophils # Man Lymphocytes # (Manual) ABG pH POC ABG pCO2 POC ABG pO2 ABG Hemoglobin ABG Sodium ABG Potassium ABG Glucose Carboxyhemoglobin Sodium Potassium Chloride Carbon Dioxide BUN Creatinine Glucose POC Glucose 144 H 147 H 158 H Lactic Acid Calcium Phosphorus AST ALT CK-MB (CK-2) Rel Index Troponin T NT-Pro-B Natriuret Pep Serum Total Protein Total Protein Albumin Evkdf-9-Bplqdfpmm Gamma Globulins PEP Interpretation HDL Cholesterol Arterial Blood Glucose Arterial Blood Ionized Calcium Urine WBC (Auto) Urine Creatinine Hepatitis C Antibody 11/26/20 11/26/20 11/26/20 05:07 06:22 06:22 WBC 12.3 H RBC 3.52 L Hgb 11.1 L Hct 33.6 L MCV 95 H Lymph % (Auto) [place] % (Auto) Lymph # (Auto) [place] # (Auto) Seg Neutrophils % Seg Neuts % (Manual) Nucleated RBC % Seg Neutrophils # Seg Neutrophils # Man Lymphocytes # (Manual) ABG pH POC ABG pCO2 POC ABG pO2 ABG Hemoglobin ABG Sodium ABG Potassium ABG Glucose Carboxyhemoglobin Sodium Potassium 3.3 L Chloride 95.8 L Carbon Dioxide 33 H BUN 35 H Creatinine 1.4 H Glucose 185 H POC Glucose 184 H Lactic Acid Calcium Phosphorus AST ALT CK-MB (CK-2) Rel Index Troponin T 0.036 H D NT-Pro-B Natriuret Pep Serum Total Protein Total Protein 6.2 L Albumin 3.1 L Fsvbj-5-Kjxsmhxcn Gamma Globulins PEP Interpretation HDL Cholesterol Arterial Blood Glucose Arterial Blood Ionized Calcium Urine WBC (Auto) Urine Creatinine Hepatitis C Antibody 11/26/20 11/26/20 11/26/20 12:52 17:30 23:14 WBC RBC Hgb Hct MCV Lymph % (Auto) [place] % (Auto) Lymph # (Auto) [place] # (Auto) Seg Neutrophils % Seg Neuts % (Manual) Nucleated RBC % Seg Neutrophils # Seg Neutrophils # Man Lymphocytes # (Manual) ABG pH POC ABG pCO2 POC ABG pO2 ABG Hemoglobin ABG Sodium ABG Potassium ABG Glucose Carboxyhemoglobin Sodium Potassium Chloride Carbon Dioxide BUN Creatinine Glucose POC Glucose 170 H 133 H 149 H Lactic Acid Calcium Phosphorus AST ALT CK-MB (CK-2) Rel Index Troponin T NT-Pro-B Natriuret Pep Serum Total Protein Total Protein Albumin Pkyxf-5-Krkptbyyf Gamma Globulins PEP Interpretation HDL Cholesterol Arterial Blood Glucose Arterial Blood Ionized Calcium Urine WBC (Auto) Urine Creatinine Hepatitis C Antibody 11/27/20 11/27/20 11/27/20 05:35 08:03 12:02 WBC RBC Hgb Hct MCV Lymph % (Auto) [place] % (Auto) Lymph # (Auto) [place] # (Auto) Seg Neutrophils % Seg Neuts % (Manual) Nucleated RBC % Seg Neutrophils # Seg Neutrophils # Man Lymphocytes # (Manual) ABG pH POC ABG pCO2 POC ABG pO2 ABG Hemoglobin ABG Sodium ABG Potassium ABG Glucose Carboxyhemoglobin Sodium Potassium Chloride 97.0 L Carbon Dioxide 31 H BUN 41 H Creatinine 1.4 H Glucose 145 H POC Glucose 135 H 139 H Lactic Acid Calcium Phosphorus 2.20 L AST ALT CK-MB (CK-2) Rel Index Troponin T NT-Pro-B Natriuret Pep Serum Total Protein Total Protein Albumin Honzl-8-Ejvigzwjw Gamma Globulins PEP Interpretation HDL Cholesterol Arterial Blood Glucose Arterial Blood Ionized Calcium Urine WBC (Auto) Urine Creatinine Hepatitis C Antibody 11/27/20 11/28/20 11/28/20 18:41 05:26 06:08 WBC RBC Hgb Hct MCV Lymph % (Auto) [place] % (Auto) Lymph # (Auto) [place] # (Auto) Seg Neutrophils % Seg Neuts % (Manual) Nucleated RBC % Seg Neutrophils # Seg Neutrophils # Man Lymphocytes # (Manual) ABG pH POC ABG pCO2 POC ABG pO2 ABG Hemoglobin ABG Sodium ABG Potassium ABG Glucose Carboxyhemoglobin Sodium Potassium Chloride Carbon Dioxide BUN 45 H Creatinine 1.4 H Glucose 135 H POC Glucose 148 H 143 H Lactic Acid Calcium Phosphorus AST ALT CK-MB (CK-2) Rel Index Troponin T NT-Pro-B Natriuret Pep Serum Total Protein Total Protein Albumin Jkszg-3-Sqqjcpykc Gamma Globulins PEP Interpretation HDL Cholesterol Arterial Blood Glucose Arterial Blood Ionized Calcium Urine WBC (Auto) Urine Creatinine Hepatitis C Antibody 11/28/20 11/28/20 11/28/20 11:46 17:31 21:17 WBC RBC Hgb Hct MCV Lymph % (Auto) [place] % (Auto) Lymph # (Auto) [place] # (Auto) Seg Neutrophils % Seg Neuts % (Manual) Nucleated RBC % Seg Neutrophils # Seg Neutrophils # Man Lymphocytes # (Manual) ABG pH POC ABG pCO2 POC ABG pO2 ABG Hemoglobin ABG Sodium ABG Potassium ABG Glucose Carboxyhemoglobin Sodium Potassium Chloride Carbon Dioxide BUN Creatinine Glucose POC Glucose 132 H 156 H 122 H Lactic Acid Calcium Phosphorus AST ALT CK-MB (CK-2) Rel Index Troponin T NT-Pro-B Natriuret Pep Serum Total Protein Total Protein Albumin Jlpbb-0-Aaexjfukt Gamma Globulins PEP Interpretation HDL Cholesterol Arterial Blood Glucose Arterial Blood Ionized Calcium Urine WBC (Auto) Urine Creatinine Hepatitis C Antibody 11/29/20 11/29/20 11/29/20 00:06 04:43 05:15 WBC RBC Hgb Hct MCV Lymph % (Auto) [place] % (Auto) Lymph # (Auto) [place] # (Auto) Seg Neutrophils % Seg Neuts % (Manual) Nucleated RBC % Seg Neutrophils # Seg Neutrophils # Man Lymphocytes # (Manual) ABG pH POC ABG pCO2 POC ABG pO2 ABG Hemoglobin ABG Sodium ABG Potassium ABG Glucose Carboxyhemoglobin Sodium Potassium Chloride 97.7 L Carbon Dioxide BUN 56 H Creatinine 1.6 H Glucose 132 H POC Glucose 114 H 125 H Lactic Acid Calcium Phosphorus AST ALT CK-MB (CK-2) Rel Index Troponin T NT-Pro-B Natriuret Pep Serum Total Protein Total Protein Albumin Kkono-9-Hmnofpeob Gamma Globulins PEP Interpretation HDL Cholesterol Arterial Blood Glucose Arterial Blood Ionized Calcium Urine WBC (Auto) Urine Creatinine Hepatitis C Antibody 11/29/20 11/29/20 11/30/20 12:09 18:12 04:47 WBC RBC Hgb Hct MCV Lymph % (Auto) [place] % (Auto) Lymph # (Auto) [place] # (Auto) Seg Neutrophils % Seg Neuts % (Manual) Nucleated RBC % Seg Neutrophils # Seg Neutrophils # Man Lymphocytes # (Manual) ABG pH POC ABG pCO2 POC ABG pO2 ABG Hemoglobin ABG Sodium ABG Potassium ABG Glucose Carboxyhemoglobin Sodium Potassium Chloride Carbon Dioxide 31 H BUN 59 H Creatinine 1.6 H Glucose 122 H POC Glucose 142 H 132 H Lactic Acid Calcium Phosphorus AST ALT CK-MB (CK-2) Rel Index Troponin T NT-Pro-B Natriuret Pep Serum Total Protein Total Protein Albumin Aiego-7-Odluccuzv Gamma Globulins PEP Interpretation HDL Cholesterol Arterial Blood Glucose Arterial Blood Ionized Calcium Urine WBC (Auto) Urine Creatinine Hepatitis C Antibody 11/30/20 11/30/20 11/30/20 05:45 11:47 18:16 WBC RBC Hgb Hct MCV Lymph % (Auto) [place] % (Auto) Lymph # (Auto) [place] # (Auto) Seg Neutrophils % Seg Neuts % (Manual) Nucleated RBC % Seg Neutrophils # Seg Neutrophils # Man Lymphocytes # (Manual) ABG pH POC ABG pCO2 POC ABG pO2 ABG Hemoglobin ABG Sodium ABG Potassium ABG Glucose Carboxyhemoglobin Sodium Potassium Chloride Carbon Dioxide BUN Creatinine Glucose POC Glucose 118 H 123 H 126 H Lactic Acid Calcium Phosphorus AST ALT CK-MB (CK-2) Rel Index Troponin T NT-Pro-B Natriuret Pep Serum Total Protein Total Protein Albumin Ksvop-5-Uhbwdiesu Gamma Globulins PEP Interpretation HDL Cholesterol Arterial Blood Glucose Arterial Blood Ionized Calcium Urine WBC (Auto) Urine Creatinine Hepatitis C Antibody 12/01/20 12/01/20 12/01/20 00:11 04:57 05:41 WBC RBC Hgb Hct MCV Lymph % (Auto) [place] % (Auto) Lymph # (Auto) [place] # (Auto) Seg Neutrophils % Seg Neuts % (Manual) Nucleated RBC % Seg Neutrophils # Seg Neutrophils # Man Lymphocytes # (Manual) ABG pH POC ABG pCO2 POC ABG pO2 ABG Hemoglobin ABG Sodium ABG Potassium ABG Glucose Carboxyhemoglobin Sodium Potassium Chloride Carbon Dioxide BUN 52 H Creatinine 1.4 H Glucose 121 H POC Glucose 117 H 120 H Lactic Acid Calcium Phosphorus AST ALT CK-MB (CK-2) Rel Index Troponin T NT-Pro-B Natriuret Pep Serum Total Protein Total Protein Albumin Axzeq-5-Wfyyifotl Gamma Globulins PEP Interpretation HDL Cholesterol Arterial Blood Glucose Arterial Blood Ionized Calcium Urine WBC (Auto) Urine Creatinine Hepatitis C Antibody 12/01/20 12/02/20 12/02/20 23:35 06:02 08:09 WBC RBC Hgb Hct MCV Lymph % (Auto) [place] % (Auto) Lymph # (Auto) [place] # (Auto) Seg Neutrophils % Seg Neuts % (Manual) Nucleated RBC % Seg Neutrophils # Seg Neutrophils # Man Lymphocytes # (Manual) ABG pH POC ABG pCO2 POC ABG pO2 ABG Hemoglobin ABG Sodium ABG Potassium ABG Glucose Carboxyhemoglobin Sodium Potassium Chloride Carbon Dioxide BUN Creatinine Glucose POC Glucose 117 H 108 H 117 H Lactic Acid Calcium Phosphorus AST ALT CK-MB (CK-2) Rel Index Troponin T NT-Pro-B Natriuret Pep Serum Total Protein Total Protein Albumin Ygbvz-2-Fnjluhthl Gamma Globulins PEP Interpretation HDL Cholesterol Arterial Blood Glucose Arterial Blood Ionized Calcium Urine WBC (Auto) Urine Creatinine Hepatitis C Antibody 12/02/20 12/02/20 12/02/20 09:40 11:33 17:34 WBC RBC Hgb Hct MCV Lymph % (Auto) [place] % (Auto) Lymph # (Auto) [place] # (Auto) Seg Neutrophils % Seg Neuts % (Manual) Nucleated RBC % Seg Neutrophils # Seg Neutrophils # Man Lymphocytes # (Manual) ABG pH POC ABG pCO2 POC ABG pO2 ABG Hemoglobin ABG Sodium ABG Potassium ABG Glucose Carboxyhemoglobin Sodium Potassium Chloride 97.6 L Carbon Dioxide 35 H BUN 45 H Creatinine Glucose POC Glucose 109 H 124 H Lactic Acid Calcium Phosphorus AST ALT CK-MB (CK-2) Rel Index Troponin T NT-Pro-B Natriuret Pep Serum Total Protein Total Protein Albumin Ktyvv-5-Awxtaveem Gamma Globulins PEP Interpretation HDL Cholesterol Arterial Blood Glucose Arterial Blood Ionized Calcium Urine WBC (Auto) Urine Creatinine Hepatitis C Antibody 12/03/20 12/03/20 12/03/20 05:40 07:16 16:46 WBC RBC Hgb Hct MCV Lymph % (Auto) [place] % (Auto) Lymph # (Auto) [place] # (Auto) Seg Neutrophils % Seg Neuts % (Manual) Nucleated RBC % Seg Neutrophils # Seg Neutrophils # Man Lymphocytes # (Manual) ABG pH POC ABG pCO2 POC ABG pO2 ABG Hemoglobin ABG Sodium ABG Potassium ABG Glucose Carboxyhemoglobin Sodium Potassium Chloride Carbon Dioxide BUN 44 H Creatinine Glucose 117 H POC Glucose 115 H 106 H Lactic Acid Calcium Phosphorus AST ALT CK-MB (CK-2) Rel Index Troponin T NT-Pro-B Natriuret Pep Serum Total Protein Total Protein Albumin Mfspy-3-Tkvqvrvda Gamma Globulins PEP Interpretation HDL Cholesterol Arterial Blood Glucose Arterial Blood Ionized Calcium Urine WBC (Auto) Urine Creatinine Hepatitis C Antibody 12/03/20 12/04/20 12/04/20 21:55 07:53 11:43 WBC RBC Hgb Hct MCV Lymph % (Auto) [place] % (Auto) Lymph # (Auto) [place] # (Auto) Seg Neutrophils % Seg Neuts % (Manual) Nucleated RBC % Seg Neutrophils # Seg Neutrophils # Man Lymphocytes # (Manual) ABG pH POC ABG pCO2 POC ABG pO2 ABG Hemoglobin ABG Sodium ABG Potassium ABG Glucose Carboxyhemoglobin Sodium Potassium Chloride Carbon Dioxide BUN Creatinine Glucose POC Glucose 113 H 110 H 110 H Lactic Acid Calcium Phosphorus AST ALT CK-MB (CK-2) Rel Index Troponin T NT-Pro-B Natriuret Pep Serum Total Protein Total Protein Albumin Dmfvo-4-Puuwlcuov Gamma Globulins PEP Interpretation HDL Cholesterol Arterial Blood Glucose Arterial Blood Ionized Calcium Urine WBC (Auto) Urine Creatinine Hepatitis C Antibody 12/04/20 12/08/20 17:21 09:43 WBC RBC Hgb Hct MCV Lymph % (Auto) [place] % (Auto) Lymph # (Auto) [place] # (Auto) Seg Neutrophils % Seg Neuts % (Manual) Nucleated RBC % Seg Neutrophils # Seg Neutrophils # Man Lymphocytes # (Manual) ABG pH POC ABG pCO2 POC ABG pO2 ABG Hemoglobin ABG Sodium ABG Potassium ABG Glucose Carboxyhemoglobin Sodium Potassium Chloride 96.2 L Carbon Dioxide 39 H BUN 34 H Creatinine Glucose POC Glucose 135 H Lactic Acid Calcium Phosphorus AST ALT CK-MB (CK-2) Rel Index Troponin T NT-Pro-B Natriuret Pep Serum Total Protein Total Protein Albumin Icarq-3-Hxxuebajd Gamma Globulins PEP Interpretation HDL Cholesterol Arterial Blood Glucose Arterial Blood Ionized Calcium Urine WBC (Auto) Urine Creatinine Hepatitis C Antibody
[2020-12-09] MEDS: BUDESONIDE 0.5 MG/2 ML NEBU IH SCH ×2 (09:13→20:08)
--- NOTE | 2020-12-09 10:38 | Progress Note ---
Assessment and Plan Assessment and plan: Patient continues to require high flow nasal cannula oxygen, 15 L-20 L last 24 hours 20 L today --Acute hypoxic respiratory failure/Requiring intubation 11/21/2020 s/p extubation 11/23/2020, patient is on noninvasive ventilation on high flow nasal cannula oxygen 25 L/35% FiO2/O2 sats 96% Clinically patient is more alert and awake responding appropriately Remains on HFNC oxygen 20 L today ,wean as tolerated Management per pulmonary --Uncontrolled hypertension; blood pressures well controlled today Continue current antihypertensives and as needed medications --Acute exacerbation of COPD; Home oxygen dependent. Patient is on 20 L high flow nasal cannula today BiPAP as needed, wean as tolerated Continue nebulizers, tapering dose of IV steroids, supportive care --Acute kidney injury; resolved Due to vasomotor nephropathy Received gentle hydration and supportive care Now ARF resolved, normal renal function, avoid nephrotoxins --Severe pulmonary hypertension; Management per pulmonary, continue supportive care --Acute metabolic encephalopathy 11/21 CT head shows no acute intracranial abnormality, sinus disease Continue supportive care. As per family patient is back to baseline intermittently --NSTEMI type II Presented with [facility] with elevated troponins cardiology patient had a stress test in 2019 which showed no significant ischemia, Echo; EF 50 to 55% severe pulmonary hypertension moderate mitral stenosis may benefit from HECTOR for evaluation of mitral valve when patient is stable Medical management per cardiology --Acute kidney injury; present on admission/resolved Vasomotor nephropathy Now resolved, normal renal function Avoid nephrotoxins, nephrology following --History of bladder cancer; Indwelling Paulson in place, supportive care Continue Flomax --Urinary tract infection; Completed antibiotics total 5 days --Dyslipidemia; Continue statin and low-cholesterol diet --Hypertension; moderate control We will continue current antihypertensives And as needed hydralazine --Hypernatremia ; resolved Patient was hyponatremia on admission ,probably overcorrection Increase oral intake of water/monitor electrolytes --Severe protein calorie malnutrition ; Hypoalbuminemia ,nutrition supplements Nutrition consult and supportive care --Nutrition; cardiac diet as tolerated --DVT prophylaxis; Subcu heparin, SCDs --GI prophylaxis; Continue Prevacid --Full CODE STATUS; PT OT evaluation noted and appreciated Recommend home health PT and OT at discharge Today patient is requiring 15 L nasal cannula oxygen Will wean slowly to 2 to 4 L and plan discharge We will closely monitor the patient and adjust the management as needed Consults and recommendations noted and appreciated Plan of care reviewed with the patient's nurse Brief history and daily hospital course: 85-year-old male patient with past medical history of COPD on home oxygen, GERD, hypertension, asthma, hyperlipidemia, vasopressin, bladder cancer admitted for acute hypoxic respiratory failure, intubated on 11/21/2020 managed appropriately evaluated by pulmonary critical subsequently extubated on 2020, today patient is on high flow nasal cannula oxygen, pulmonary critical, cardiology and nephrology following the patient 11/23: Patient was extubated, currently on BiPAP Mild distress, wean as tolerated 11/25/2020; patient is on BiPAP Mild distress, noncommunicative 11/26/2020; patient is on intermittent BiPAP Currently on high flow nasal cannula oxygen 11/27/2020; patient is more alert and awake Will get swallow screen, if normal start pured diet Transfer the patient to [facility] 11/28/2020; patient is on high flow oxygen slightly better than yesterday Able to tolerate mechanical soft diet when the family comes and helps him DC planning, considering LTAC placement 11/29 Still on HFNC oxygen 11/30 Still on HFNC oxygen 12/01 on 35 liters O2 714/21; patient remains on high flow nasal cannula oxygen requiring 25 L/FiO2 35%/O2 sats 96 Wean as tolerated, awaiting LTAC placement Patient is hemodynamically and clinically stable to be transferred out of [facility] to cardiac telemetry or medical floor with remote telemetry today. 12/04/2020; remains on high flow oxygen 25 L/35%/96% O2 sats Wean as tolerated, pending LTAC placement consider PT OT once patient's respiratory status is stable 12/05/2020; patient feels slightly better more alert and awake Responding to simple questions appropriately, titrated the oxygen Today patient is requiring 3 to 4 L of nasal cannula oxygen Significantly improved from yesterday when he needed 25 L Physical therapy evaluation and treatment, home oxygen evaluation prior to discharge 12/06/2020; patient is requiring 10 L of supplemental oxygen today Wean as tolerated PT OT evaluation recommendations noted, Possible discharge in 1 to 2 days if stable Patient's son Ana Morejon [phone] at the bedside Discussed in detail patient's condition, tests and reports Discharge planning, answered all his questions 12/07/2020; today patient is requiring high flow nasal cannula oxygen, 25 L In mild distress, wean as tolerated to 3 to 4 L nasal cannula DC planning per case management, possible home with home health when patient is medically stable 12/08/2020 today patient is requiring high flow nasal cannula oxygen, but slightly improved patient is at 15 L O2 PT and OT recommend home health PT OT, wean patient off high flow oxygen Titrate to 3 to 4 L nasal cannula, possible discharge in 1 to 2 days if stable And cleared by pulmonary 12/09/2020; patient continues to require high flow nasal cannula oxygen between 15 to 20 L Management per pulmonary. Wean as tolerated History Interval history: I have seen and examined the patient at the bedside today Patient's chart and medications reviewed Patient is in an uncomfortable position Head end of the bed lower than the foot end of the bed. Patient is in mild distress Patient continues to require high flow nasal cannula oxygen 15L to 20 L last 24 hours Vital signs noted Hospitalist Physical - Constitutional Vitals: Temp Pulse Resp BP Pulse Ox 98.3 F 75 20 139/68 99 12/09/20 08:04 12/09/20 09:13 12/09/20 09:13 12/09/20 08:04 12/09/20 08:04 General appearance: Present: mild distress, well-nourished, obese, other (On high flow NC oxygen, patient is in mild distress) - EENT Eyes: Present: PERRL, EOM intact - Neck Neck: Present: supple, normal ROM - Respiratory Respiratory effort: normal Respiratory: bilateral: diminished, rhonchi, negative: rales, wheezing - Cardiovascular Rhythm: regular Heart Sounds: Present: S1 & S2 - Extremities Extremities: no ischemia, No edema - Abdominal General gastrointestinal: soft, non-tender, non-distended, normal bowel sounds - Integumentary Integumentary: Present: clear, warm - Psychiatric Psychiatric: appropriate mood/affect, cooperative - Neurologic Neurologic: CNII-XII intact, moves all extremities HEART Score - HEART Score Troponin: Troponin T 0.021 ng/mL (0.00-0.029) 11/29/20 04:43 Results - Labs CBC & Chem 7: 11/28/20 09:21 12/08/20 09:43 Labs: Laboratory Last Values WBC 9.8 K/mm3 (4.5-11.0) 11/28/20 09:21 RBC 4.01 M/mm3 (3.65-5.03) 11/28/20 09:21 Hgb 12.3 gm/dl (11.8-15.2) 11/28/20 09:21 Hct 37.6 % (35.5-45.6) 11/28/20 09:21 MCV 94 fl (84-94) 11/28/20 09:21 MCH 31 pg (28-32) 11/28/20 09:21 MCHC 33 % (32-34) 11/28/20 09:21 RDW 15.1 % (13.2-15.2) 11/28/20 09:21 Plt Count 369 K/mm3 (140-440) 11/28/20 09:21 Lymph % (Auto) 16.1 % (13.4-35.0) 11/23/20 10:00 [place] % (Auto) 15.0 % (0.0-7.3) H 11/23/20 10:00 Eos % (Auto) 1.0 % (0.0-4.3) 11/23/20 10:00 Baso % (Auto) 0.5 % (0.0-1.8) 11/23/20 10:00 Lymph # (Auto) 1.6 K/mm3 (1.2-5.4) 11/23/20 10:00 [place] # (Auto) 1.5 K/mm3 (0.0-0.8) H 11/23/20 10:00 Eos # (Auto) 0.1 K/mm3 (0.0-0.4) 11/23/20 10:00 Baso # (Auto) 0.1 K/mm3 (0.0-0.1) 11/23/20 10:00 Add Manual Diff Complete 11/25/20 08:18 Total Counted 100 11/25/20 08:18 Seg Neutrophils % Convention Worker 11/25/20 08:18 Seg Neuts % (Manual) 98.0 % (40.0-70.0) H 11/25/20 08:18 Monocytes % (Manual) 2.0 % (0.0-7.3) 11/25/20 08:18 Nucleated RBC % 1.0 % (0.0-0.9) H 11/25/20 08:18 Seg Neutrophils # 6.6 K/mm3 (1.8-7.7) 11/23/20 10:00 Seg Neutrophils # Man 12.9 K/mm3 (1.8-7.7) H 11/25/20 08:18 Band Neutrophils # 0.0 K/mm3 11/25/20 08:18 Lymphocytes # (Manual) 0.0 K/mm3 (1.2-5.4) L 11/25/20 08:18 Abs React Lymphs (Man) 0.0 K/mm3 11/25/20 08:18 Monocytes # (Manual) 0.3 K/mm3 (0.0-0.8) 11/25/20 08:18 Eosinophils # (Manual) 0.0 K/mm3 (0.0-0.4) 11/25/20 08:18 Basophils # (Manual) 0.0 K/mm3 (0.0-0.1) 11/25/20 08:18 Metamyelocytes # 0.0 K/mm3 11/25/20 08:18 Myelocytes # 0.0 K/mm3 11/25/20 08:18 Promyelocytes # 43.8 K/mm3 11/25/20 08:18 Blast Cells # 0.0 K/mm3 11/25/20 08:18 WBC Morphology Not Reportable 11/25/20 08:18 Hypersegmented Neuts Not Reportable 11/25/20 08:18 Hyposegmented Neuts Not Reportable 11/25/20 08:18 Hypogranular Neuts Not Reportable 11/25/20 08:18 Smudge Cells Not Reportable 11/25/20 08:18 Toxic Granulation Few 11/25/20 08:18 Toxic Vacuolation Not Reportable 11/25/20 08:18 Dohle Bodies Not Reportable 11/25/20 08:18 Pelger-Huet Anomaly Not Reportable 11/25/20 08:18 Liang Rods Not Reportable 11/25/20 08:18 Platelet Estimate Consistent w auto 11/25/20 08:18 Clumped Platelets Not Reportable 11/25/20 08:18 Plt Clumps, EDTA Not Reportable 11/25/20 08:18 Large Platelets Not Reportable 11/25/20 08:18 Giant Platelets Not Reportable 11/25/20 08:18 Platelet Satelliting Not Reportable 11/25/20 08:18 Plt Morphology Comment Not Reportable 11/25/20 08:18 RBC Morphology Not Reportable 11/25/20 08:18 Dimorphic RBCs Not Reportable 11/25/20 08:18 Polychromasia Not Reportable 11/25/20 08:18 Hypochromasia 1+ 11/25/20 08:18 Poikilocytosis Not Reportable 11/25/20 08:18 Anisocytosis Not Reportable 11/25/20 08:18 Microcytosis Not Reportable 11/25/20 08:18 Macrocytosis Not Reportable 11/25/20 08:18 Spherocytes Not Reportable 11/25/20 08:18 Pappenheimer Bodies Not Reportable 11/25/20 08:18 Sickle Cells Not Reportable 11/25/20 08:18 Target Cells 1+ 11/25/20 08:18 Tear Drop Cells Not Reportable 11/25/20 08:18 Ovalocytes Not Reportable 11/25/20 08:18 Helmet Cells Not Reportable 11/25/20 08:18 [place] Bodies Not Reportable 11/25/20 08:18 [place] Rings Not Reportable 11/25/20 08:18 [place] Cells Not Reportable 11/25/20 08:18 Bite Cells Not Reportable 11/25/20 08:18 Crenated Cell Not Reportable 11/25/20 08:18 Elliptocytes Not Reportable 11/25/20 08:18 Acanthocytes (Spur) Not Reportable 11/25/20 08:18 Rouleaux Not Reportable 11/25/20 08:18 Hemoglobin C Crystals Not Reportable 11/25/20 08:18 Schistocytes Not Reportable 11/25/20 08:18 Malaria parasites Not Reportable 11/25/20 08:18 Fuad Bodies Not Reportable 11/25/20 08:18 Hem Pathologist Commnt No 11/25/20 08:18 PT 13.5 Sec. (12.2-14.9) 11/21/20 20:50 INR 0.98 (0.87-1.13) 11/21/20 20:50 APTT 32.1 Sec. (24.2-36.6) 11/21/20 20:50 ABG pH 7.281 (7.320-7.450) L 11/24/20 01:48 POC ABG pCO2 58.4 mmHg (32.0-48.0) H 11/24/20 01:48 POC ABG pO2 98.1 mmHg (83-108) 11/24/20 01:48 POC ABG HCO3 26.9 11/24/20 01:48 ABG O2 Saturation 96.9 (0-100) 11/24/20 01:48 POC ABG Base Excess -0.7 11/24/20 01:48 ABG Hemoglobin 11.8 (12.0-17.5) L 11/24/20 01:48 ABG Oxyhemoglobin 95.9 (94-98) 11/24/20 01:48 ABG Methemoglobin 0.3 (0.0-1.5) 11/24/20 01:48 ABG Sodium 140.6 mmol/L (136.0-145.0) 11/24/20 01:48 ABG Potassium 3.9 mmol/L (3.40-4.50) 11/24/20 01:48 ABG Chloride 104.0 mmol/L (98-107) 11/24/20 01:48 ABG Glucose 101 mg/dL (65-95) H 11/24/20 01:48 Carboxyhemoglobin 0.7 (0.5-1.5) 11/24/20 01:48 FiO2 % 50.0 11/24/20 01:48 Sodium 139 mmol/L (137-145) 12/08/20 09:43 Potassium 4.8 mmol/L (3.6-5.0) 12/08/20 09:43 Chloride 96.2 mmol/L (98-107) L 12/08/20 09:43 Carbon Dioxide 39 mmol/L (22-30) H 12/08/20 09:43 Anion Gap 9 mmol/L 12/08/20 09:43 BUN 34 mg/dL (9-20) H 12/08/20 09:43 Creatinine 0.8 mg/dL (0.8-1.3) 12/08/20 09:43 Estimated GFR > 60 ml/min 12/08/20 09:43 BUN/Creatinine Ratio 43 % 12/08/20 09:43 Glucose 90 mg/dL (75-100) 12/08/20 09:43 POC Glucose 135 mg/dL (70-105) H 12/04/20 17:21 Lactic Acid 0.60 mmol/L (0.7-2.0) L 11/24/20 09:58 Calcium 9.4 mg/dL (8.4-10.2) 12/08/20 09:43 Phosphorus 2.80 mg/dL (2.5-4.5) 12/08/20 03:31 Magnesium 2.00 mg/dL (1.7-2.3) 12/08/20 03:31 Total Bilirubin 0.30 mg/dL (0.1-1.2) 11/26/20 06:22 AST 18 units/L (5-40) 11/26/20 06:22 ALT 22 units/L (7-56) 11/26/20 06:22 Alkaline Phosphatase 55 units/L (35-129) 11/26/20 06:22 Total Creatine Kinase 132 units/L (55-170) 11/22/20 10:20 CK-MB (CK-2) 3.3 ng/mL (0.0-4.0) 11/22/20 10:20 CK-MB (CK-2) Rel Index 2.5 (0-4) 11/22/20 10:20 Troponin T 0.021 ng/mL (0.00-0.029) 11/29/20 04:43 NT-Pro-B Natriuret Pep 6998 pg/mL (0-900) H 11/21/20 20:50 Serum Total Protein 5.3 g/dL (6.1-8.1) L 11/23/20 10:00 Total Protein 6.2 g/dL (6.3-8.2) L 11/26/20 06:22 Albumin 3.1 g/dL (3.9-5) L 11/26/20 06:22 Albumin/Globulin Ratio 1.0 % 11/26/20 06:22 Bqfhj-9-Plorlfqfc 0.4 g/dL (0.2-0.3) H 11/23/20 10:00 Zybly-1-Nuhdecwcq 0.8 g/dL (0.5-0.9) 11/23/20 10:00 Beta Globulins 0.3 g/dL (0.2-0.5) 11/23/20 10:00 Gamma Globulins 0.7 g/dL (0.8-1.7) L 11/23/20 10:00 Abnorm Protein Band 1 see below 11/23/20 10:00 PEP Interpretation see below H 11/23/20 10:00 Triglycerides 84 mg/dL (2-149) 11/21/20 20:50 Cholesterol 125 mg/dL (50-199) 11/21/20 20:50 LDL Cholesterol Direct 57 mg/dL (50-130) 11/21/20 20:50 HDL Cholesterol 60 mg/dL (40-59) H 11/21/20 20:50 Cholesterol/HDL Ratio 2.08 % 11/21/20 20:50 TSH 1.290 mlU/mL (0.270-4.200) 11/21/20 20:50 Free T4 1.18 ng/dL (0.76-1.46) 11/21/20 20:50 Arterial Blood Glucose 101 mg/dL (65-95) H 11/24/20 01:48 Arterial Blood Ionized Calcium 4.7 mg/dL (4.6-5.3) 11/24/20 01:48 Urine Color Yellow (Yellow) 11/22/20 05:00 Urine Turbidity Slightly-cloudy (Clear) 11/22/20 05:00 Urine pH 5.0 (5.0-7.0) 11/22/20 05:00 Ur Specific [place] 1.016 (1.003-1.030) 11/22/20 05:00 Urine Protein 30 mg/dl mg/dL (Negative) 11/22/20 05:00 Urine Glucose (UA) Neg mg/dL (Negative) 11/22/20 05:00 Urine Ketones Neg mg/dL (Negative) 11/22/20 05:00 Urine Blood Lg (Negative) 11/22/20 05:00 Urine Nitrite Neg (Negative) 11/22/20 05:00 Urine Bilirubin Neg (Negative) 11/22/20 05:00 Urine Urobilinogen < 2.0 mg/dL (<2.0) 11/22/20 05:00 Ur Leukocyte Esterase Tr (Negative) 11/22/20 05:00 Urine WBC (Auto) 33.0 /HPF (0.0-6.0) H 11/22/20 05:00 Urine RBC (Auto) 49.0 /HPF (0.0-6.0) 11/22/20 05:00 U Epithel Cells (Auto) 1.0 /HPF (0-13.0) 11/22/20 05:00 Hyaline Casts 4 /LPF 11/22/20 05:00 Urine Mucus 1+ /HPF 11/22/20 05:00 Urine Eosinophils None seen (None Seen) 11/24/20 17:55 Urine Creatinine 158.2 mg/dL (0.1-20.0) H 11/22/20 00:11 Urine Sodium 39 mmol/L 11/22/20 00:11 Fraction Sodium Excret 0.3 11/22/20 00:11 Urine Opiates Screen Presumptive negative 11/22/20 00:11 Urine Methadone Screen Presumptive negative 11/22/20 00:11 Ur Barbiturates Screen Presumptive negative 11/22/20 00:11 Ur Phencyclidine Scrn Presumptive negative 11/22/20 00:11 Ur Amphetamines Screen Presumptive negative 11/22/20 00:11 U Benzodiazepines Scrn Presumptive negative 11/22/20 00:11 Urine Cocaine Screen Presumptive negative 11/22/20 00:11 U Marijuana (THC) Screen Presumptive negative 11/22/20 00:11 Drugs of Abuse Note Disclamer 11/22/20 00:11 Plasma/Serum Alcohol < 0.01 % (0-0.07) 11/21/20 20:50 Proteinase 3 (PR3) Ab <1.0 AI (<1.0) 11/22/20 16:00 Myeloperoxidase Ab <1.0 AI (<1.0) 11/22/20 16:00 Double Strand DNA Ab 1 IU/mL (<=4) 11/22/20 16:00 Complement C3 93 mg/dL () 11/22/20 16:00 Complement C4 25 mg/dL () 11/22/20 16:00 Coronavirus (PCR) Negative (Negative) 11/23/20 09:30 Hepatitis A IgM Ab Non-reactive (NonReactive) 11/22/20 16:00 Hep Bs Antigen Non-reactive (Negative) 11/22/20 16:00 Hep B Core IgM Ab Non-reactive (NonReactive) 11/22/20 16:00 Hepatitis C Antibody Reactive (NonReactive) A 11/22/20 16:00 [place]/IV: Voiding Method Urinal Active Medications - Current Medications Current Medications: Generic Name Dose Route Start Last Admin Trade Name Freq PRN Reason Stop Dose Admin Acetaminophen 650 mg 11/23/20 15:29 12/02/20 14:30 Acetaminophen 325 Mg Tab PO 650 mg Q4H PRN Administration Pain, Mild (1-3) Albuterol 2.5 mg 11/22/20 01:19 Albuterol 2.5 Mg/3 Ml Nebu IH Q4HRT PRN Shortness Of Breath Albuterol/Ipratropium 1 ampul 11/22/20 02:00 12/09/20 09:13 Ipratropium/Albuterol Sulfate 3 Ml Ampul.Neb IH 1 ampul Q6HRT TERESA Administration Lipase/Protease/Amylase 1 each 11/22/20 09:07 Lipase 10,500/Protease 25,000/Amylase 43,750 (Units) Dr Cyr FEEDTUBE PRN PRN For Clogged Feeding Tube Aspirin 81 mg 11/23/20 10:00 12/08/20 13:03 Aspirin 81 Mg Tab Chew PO 81 mg QDAY TERESA Administration Atorvastatin Calcium 40 mg 11/22/20 22:00 12/08/20 22:55 Atorvastatin 40 Mg Tab PO 40 mg QHS TERESA Administration Budesonide 0.5 mg 11/24/20 14:55 12/09/20 09:13 Budesonide 0.5 Mg/2 Ml Nebu IH 0.5 mg Q12HRT TERESA Administration Carvedilol 12.5 mg 12/03/20 22:00 12/08/20 22:55 Carvedilol 12.5 Mg Tab PO 12.5 mg BID TERESA Administration Furosemide 40 mg 12/09/20 08:20 Furosemide 40 Mg/4 Ml Inj IV 12/09/20 11:00 ONCE NR Heparin Sodium (Porcine) 5,000 unit 11/22/20 06:00 12/09/20 05:47 Heparin 5,000 Unit/1 Ml Vial SUB-Q 5,000 unit Q8HR TERESA Administration Hydralazine HCl 10 mg 11/22/20 01:24 12/09/20 05:44 Hydralazine 20 Mg/1 Ml Inj IV 10 mg Q6H PRN Administration Blood Pressure Lansoprazole 30 mg 11/28/20 10:00 12/08/20 13:03 Lansoprazole 30 Mg Solutab FEEDTUBE 30 mg QDAY TERESA Administration Methylprednisolone Sodium Succinate 60 mg 12/08/20 12:00 12/09/20 05:47 Methylprednisolone Sod Succinate 125 Mg/2 Ml Inj IV 60 mg Q6HR TEERSA Administration Nitroglycerin 0.4 mg 11/22/20 01:25 12/06/20 05:22 Nitroglycerin 0.4 Mg Tab Subl SL 0.4 mg Q5M PRN Administration Chest Pain Ondansetron HCl 4 mg 11/22/20 01:19 Ondansetron 4 Mg/2 Ml Inj IV Q8H PRN Nausea And Vomiting Quetiapine Fumarate 25 mg 11/27/20 12:00 12/08/20 22:55 Quetiapine 25 Mg Tab PO 25 mg BID TERESA Administration Senna/Docusate Sodium 1 tab 11/22/20 10:00 12/08/20 22:55 Sennosides/Docusate Sodium 8.6/50 Mg Tab FEEDTUBE 1 tab BID TERESA Administration Simple Syrup 15 ml 11/22/20 09:07 Simple Syrup 15 Ml FEEDTUBE PRN PRN Hypoglycemia Simple Syrup 30 ml 11/22/20 09:07 Simple Syrup 15 Ml FEEDTUBE PRN PRN Hypoglycemia Sodium Bicarbonate 325 mg 11/22/20 09:07 Sodium Bicarbonate 325 Mg Tab FEEDTUBE PRN PRN For Clogged Feeding Tube Sodium Chloride 10 ml 11/22/20 10:00 12/08/20 22:55 Sodium Chloride 0.9% 10 Ml Flush Syringe IV 10 ml BID TERESA Administration Sodium Chloride 10 ml 11/22/20 01:19 Sodium Chloride 0.9% 10 Ml Flush Syringe IV PRN PRN LINE FLUSH Tamsulosin HCl 0.4 mg 11/22/20 10:00 12/08/20 13:02 Tamsulosin 0.4 Mg Cap PO 0.4 mg DAILY TERESA Administration Nutrition/Malnutrition Assess - Dietary Evaluation Nutrition/Malnutrition Findings: Nutrition Notes Start: 11/22/20 08:53 Freq: Status: Active Protocol: Document 12/08/20 15:43 NHALL (Rec: 12/08/20 15:46 NHALL [id number]) Nutrition Notes Initial or Follow up Brief Note Current Diet [facility] soft Subjective/Other Information Per RN, pt does not eat very much (even though family brings foods from home). Pt requires high-flow oxygen via NC; awaiting placement. Nutrition Intervention Follow-Up By: 12/11/20 Additional Comments F/U: intakes, POC
[2020-12-09] MEDS: SENNOSIDES/DOCUSATE SODIUM 8.6/50 MG TAB FEEDTUBE SCH ×2 (12:00→21:22)
[2020-12-09] MEDS: QUEtiapine 25 MG TAB PO SCH ×2 (12:47→21:09)
[2020-12-09] MEDS: LANSOPRAZOLE 30 MG SOLUTAB FEEDTUBE SCH (12:47)
[2020-12-09] MEDS: carvediloL 12.5 MG TAB PO SCH ×2 (12:47→21:09)
[2020-12-09] MEDS: TAMSULOSIN 0.4 MG CAP PO SCH (12:48)
[2020-12-09] MEDS: ASPIRIN 81 MG TAB CHEW PO SCH (12:48)
[2020-12-10] MEDS: methylPREDNISolone Sod Succinate 125 MG/2 ML INJ IV SCH ×4 (00:06→17:31)
[2020-12-10] MEDS: IPRATROPIUM/ALBUTEROL SULFATE 3 ML AMPUL.NEB IH SCH ×4 (01:05→19:41)
[2020-12-10] MEDS: HEPARIN 5,000 UNIT/1 ML VIAL SUB-Q SCH ×3 (06:13→22:06)
--- NOTE | 2020-12-10 08:13 | Progress Note ---
Assessment and Plan 85 y/o singaporean male admitted with acute hypoxic respiratory failure. 12/10/20: BNP elevated, lasix again today. Ordered labs for this am, will review once back. May need to increase night time seroquel as night nurse documented patient taking off cannula constantly but easy redirection. Appeal done by CM. Continue High dose steroids. Guarded prognosis. 12/09/20: Continue High Dose IV steroids. Follow up BNP. Today will give lasix 40mg IV x1. Please ask CM to appeal LTACH denial as patient will need it. After speaking with RT, patient becomes very agitated and frustrated secondary to language barrier and will remove supplemental O2 requiring him to be put on higher numbers to recover. Suggest using language line more often or calling daughter who is in the medical profession and speaks very good slovenian. Will continue to follow. 12/08/20: with change in oxygen requirement, will place back on IV steroids. Will order labs including BNP today and give lasix 20mg IV x1. Initial LTACH request was denied, suggest having CM appeal it now that patient is back on HFNC. Will continue to follow. 12/06/20: Steroid taper as follows: 60 daily for 5 days, 40 daily for 5 days, 20 daily for 5 days, 10 daily for 5 days. Resume whatever home regimen patient was on at home. Wean Oxygen for sats >88%, likely patient will be fine on 2-3 liters, does not need 4. Will sign off. Call if questions. 12/05/20: Change to oral steroids starting tomorrow with prolonged taper. Likely dischargeable over the weekend. 12/04/20: LTACH denied. Continue to wean. Continue IV steroids. 12/03/20: Follow up with CM in regards to LTACH. Continue IV steroids. Wean FiO2 as tolerated. PT/OT if not already evaluated. Patient stable enough to transfer to floor. 12/02/20: CM still waiting to hear back from LTACH in regards to auth. Continue to wean FiO2 as tolerated for sats >88%. Continue IV steroids. 12/01/20: Wean HFNC for sats >88%. Spoke with CM about checking on LTACH but patient may be able to be weaned further now while in house. Will speak with RT about this. If placed on salter, may need to consider transfer to medical/surgical floor with remote tele. 11/28/20: Continue to wean HFNC. Agree with holding Precedex, can increase seroquel if needed to help with mood. Hopeful that over the weekend will be down to nasal cannula and can transfer to the floor. CM working on LTACH evaluation. Patient is stable for transfer, if and when accepted. 11/27/20: Will transfer to step down today. Agree with bedside swallow eval now that patient is more awake. Will try bID seroquel to help with mood and agitation. Hopeful Cr has stablized. Continue steroids at 40q8. Consider LTACH evaluation 11/26/20: 11/25/20: Continue bipap for right now. Added precedex and stopped ativan as this may be worsening agitation. Ok with haldol use. Continue daily diuretics to keep patient net negative. Continue ICU monitoring for now. Renal function is better. Guarded prognosis. 11/23/20: Wean sedation to off. If patient can tolerate being off sedation, will attempt PSV trial, otherwise, will likely have to just stop sedation and extubate, will have bipap ready for as needed purposes. Needs chemistry to assess renal function. Out put was good. 1. Repeat ABG later this afternoon and wean FIO2 according (>88%) 2. Stop sedation, need to assess mental state 3. Follow up renal function and urine output. 4. Guarded prognosis, this is likely acute on chronic respiratory failure. cct 31 minutes. Subjective Date of service: 12/10/20 Principal diagnosis: Acute respiratory failure Interval history: BNP came back >4k. Net negative 2 liters yesterday if I/O are accurate. No labs this am. Still on HFNC but down to 90%. Objective Vital Signs - 12hr 12/09/20 12/09/20 12/09/20 20:29 21:09 22:58 Temperature 97.3 F L 98.5 F Pulse Rate 60 60 63 Respiratory 18 18 Rate Blood Pressure 123/61 123/61 141/63 O2 Sat by Pulse 99 97 Oximetry 12/10/20 12/10/20 01:06 05:08 Temperature 98.3 F Pulse Rate 71 Respiratory 18 Rate Blood Pressure 153/56 O2 Sat by Pulse 98 96 Oximetry Constitutional: no acute distress, alert Eyes: non-icteric ENT: oropharynx moist Neck: supple, other (large in circumference) Effort: normal Ascultation: Bilateral: clear, diminished breath sounds, wheezes Percussion: Bilateral: not dull Cardiovascular: other (tachy, no mrg) Gastrointestinal: normoactive bowel sounds, soft, non-tender, non-distended Extremities: no cyanosis, no edema, pink and warm Neurologic: normal mental status, non-focal exam, pupils equal and round Psychiatric: mood appropriate, affect normal CBC and BMP: 11/28/20 09:21 12/08/20 09:43 ABG, PT/INR, D-dimer: ABG ABG pH 7.281 (7.320-7.450) L 11/24/20 01:48 POC ABG pCO2 58.4 mmHg (32.0-48.0) H 11/24/20 01:48 POC ABG pO2 98.1 mmHg (83-108) 11/24/20 01:48 POC ABG HCO3 26.9 11/24/20 01:48 ABG O2 Saturation 96.9 (0-100) 11/24/20 01:48 PT/INR, D-dimer PT 13.5 Sec. (12.2-14.9) 11/21/20 20:50 INR 0.98 (0.87-1.13) 11/21/20 20:50 Abnormal lab findings: Abnormal Labs 11/21/20 11/21/20 11/22/20 20:50 20:50 00:11 WBC RBC 3.48 L Hgb 11.1 L Hct 34.3 L MCV 99 H Lymph % (Auto) 6.8 L [place] % (Auto) Lymph # (Auto) 0.6 L [place] # (Auto) Seg Neutrophils % 85.5 H Seg Neuts % (Manual) Nucleated RBC % Seg Neutrophils # Seg Neutrophils # Man Lymphocytes # (Manual) ABG pH POC ABG pCO2 POC ABG pO2 ABG Hemoglobin ABG Sodium ABG Potassium ABG Glucose Carboxyhemoglobin Sodium 130 L Potassium 7.3 H* Chloride 91.1 L Carbon Dioxide BUN 40 H Creatinine 2.1 H Glucose 195 H POC Glucose Lactic Acid Calcium Phosphorus AST 91 H ALT 65 H CK-MB (CK-2) Rel Index 4.1 H Troponin T 0.045 H NT-Pro-B Natriuret Pep 6998 H Serum Total Protein Total Protein Albumin 3.7 L Pdvkm-1-Zdpxbjivz Gamma Globulins PEP Interpretation HDL Cholesterol 60 H Arterial Blood Glucose Arterial Blood Ionized Calcium Urine WBC (Auto) Urine Creatinine 158.2 H Hepatitis C Antibody 11/22/20 11/22/20 11/22/20 00:23 00:40 01:37 WBC 14.1 H RBC 3.53 L Hgb 11.0 L Hct 34.1 L MCV 97 H Lymph % (Auto) 12.3 L [place] % (Auto) 14.2 H Lymph # (Auto) [place] # (Auto) 2.0 H Seg Neutrophils % 72.3 H Seg Neuts % (Manual) Nucleated RBC % Seg Neutrophils # 10.2 H Seg Neutrophils # Man Lymphocytes # (Manual) ABG pH POC ABG pCO2 POC ABG pO2 ABG Hemoglobin ABG Sodium ABG Potassium ABG Glucose Carboxyhemoglobin Sodium Potassium 5.1 H D Chloride Carbon Dioxide BUN Creatinine Glucose POC Glucose Lactic Acid 2.10 H* Calcium Phosphorus AST ALT CK-MB (CK-2) Rel Index Troponin T NT-Pro-B Natriuret Pep Serum Total Protein Total Protein Albumin Jgvxj-3-Wvnkklwhz Gamma Globulins PEP Interpretation HDL Cholesterol Arterial Blood Glucose Arterial Blood Ionized Calcium Urine WBC (Auto) Urine Creatinine Hepatitis C Antibody 11/22/20 11/22/20 11/22/20 01:37 03:20 05:00 WBC RBC Hgb Hct MCV Lymph % (Auto) [place] % (Auto) Lymph # (Auto) [place] # (Auto) Seg Neutrophils % Seg Neuts % (Manual) Nucleated RBC % Seg Neutrophils # Seg Neutrophils # Man Lymphocytes # (Manual) ABG pH POC ABG pCO2 58.4 H POC ABG pO2 ABG Hemoglobin 11.1 L ABG Sodium 135.1 L ABG Potassium 5.0 H ABG Glucose Carboxyhemoglobin Sodium Potassium 5.1 H Chloride Carbon Dioxide 31 H BUN 40 H Creatinine 2.0 H Glucose 49 L POC Glucose Lactic Acid Calcium Phosphorus AST ALT CK-MB (CK-2) Rel Index Troponin T NT-Pro-B Natriuret Pep Serum Total Protein Total Protein Albumin Cpjzr-1-Rpwhawlzm Gamma Globulins PEP Interpretation HDL Cholesterol Arterial Blood Glucose Arterial Blood Ionized Calcium Urine WBC (Auto) 33.0 H Urine Creatinine Hepatitis C Antibody 11/22/20 11/22/20 11/22/20 05:00 05:00 05:00 WBC RBC Hgb Hct MCV Lymph % (Auto) [place] % (Auto) Lymph # (Auto) [place] # (Auto) Seg Neutrophils % Seg Neuts % (Manual) Nucleated RBC % Seg Neutrophils # Seg Neutrophils # Man Lymphocytes # (Manual) ABG pH POC ABG pCO2 POC ABG pO2 ABG Hemoglobin ABG Sodium ABG Potassium ABG Glucose Carboxyhemoglobin Sodium 136 L Potassium Chloride 97.8 L Carbon Dioxide BUN 41 H Creatinine 1.8 H 1.8 H Glucose POC Glucose Lactic Acid Calcium 8.2 L Phosphorus AST ALT CK-MB (CK-2) Rel Index Troponin T 0.065 H D NT-Pro-B Natriuret Pep Serum Total Protein Total Protein Albumin Saabb-1-Drslzlhkr Gamma Globulins PEP Interpretation HDL Cholesterol Arterial Blood Glucose Arterial Blood Ionized Calcium Urine WBC (Auto) Urine Creatinine Hepatitis C Antibody 11/22/20 11/22/20 11/22/20 10:20 10:20 15:00 WBC RBC 3.16 L Hgb 10.2 L Hct 29.9 L MCV 95 H Lymph % (Auto) [place] % (Auto) Lymph # (Auto) [place] # (Auto) Seg Neutrophils % Seg Neuts % (Manual) Nucleated RBC % Seg Neutrophils # Seg Neutrophils # Man Lymphocytes # (Manual) ABG pH 7.501 H POC ABG pCO2 POC ABG pO2 ABG Hemoglobin 10.5 L ABG Sodium 134.9 L ABG Potassium ABG Glucose 115 H Carboxyhemoglobin 0.4 L Sodium Potassium Chloride Carbon Dioxide BUN Creatinine Glucose POC Glucose Lactic Acid Calcium Phosphorus AST ALT CK-MB (CK-2) Rel Index Troponin T 0.078 H NT-Pro-B Natriuret Pep Serum Total Protein Total Protein Albumin Mqqyr-2-Fcsworvkn Gamma Globulins PEP Interpretation HDL Cholesterol Arterial Blood Glucose 115 H Arterial Blood Ionized Calcium 4.3 L Urine WBC (Auto) Urine Creatinine Hepatitis C Antibody 11/22/20 11/22/20 11/22/20 16:00 17:45 23:21 WBC RBC Hgb Hct MCV Lymph % (Auto) [place] % (Auto) Lymph # (Auto) [place] # (Auto) Seg Neutrophils % Seg Neuts % (Manual) Nucleated RBC % Seg Neutrophils # Seg Neutrophils # Man Lymphocytes # (Manual) ABG pH POC ABG pCO2 POC ABG pO2 ABG Hemoglobin ABG Sodium ABG Potassium ABG Glucose Carboxyhemoglobin Sodium Potassium Chloride Carbon Dioxide BUN Creatinine Glucose POC Glucose 107 H 115 H Lactic Acid Calcium Phosphorus AST ALT CK-MB (CK-2) Rel Index Troponin T NT-Pro-B Natriuret Pep Serum Total Protein Total Protein Albumin Cjlkm-6-Lopizyqyc Gamma Globulins PEP Interpretation HDL Cholesterol Arterial Blood Glucose Arterial Blood Ionized Calcium Urine WBC (Auto) Urine Creatinine Hepatitis C Antibody Reactive A 11/23/20 11/23/20 11/23/20 03:03 05:33 10:00 WBC RBC 3.33 L Hgb 10.6 L Hct 32.2 L MCV 97 H Lymph % (Auto) [place] % (Auto) 15.0 H Lymph # (Auto) [place] # (Auto) 1.5 H Seg Neutrophils % Seg Neuts % (Manual) Nucleated RBC % Seg Neutrophils # Seg Neutrophils # Man Lymphocytes # (Manual) ABG pH POC ABG pCO2 POC ABG pO2 115.8 H ABG Hemoglobin 10.1 L ABG Sodium 135.8 L ABG Potassium ABG Glucose 98 H Carboxyhemoglobin 0.4 L Sodium Potassium Chloride Carbon Dioxide BUN Creatinine Glucose POC Glucose 106 H Lactic Acid Calcium Phosphorus AST ALT CK-MB (CK-2) Rel Index Troponin T NT-Pro-B Natriuret Pep Serum Total Protein Total Protein Albumin Wvrsp-1-Imrecsfhp Gamma Globulins PEP Interpretation HDL Cholesterol Arterial Blood Glucose 98 H Arterial Blood Ionized Calcium 4.4 L Urine WBC (Auto) Urine Creatinine Hepatitis C Antibody 11/23/20 11/23/20 11/23/20 10:00 10:00 12:12 WBC RBC Hgb Hct MCV Lymph % (Auto) [place] % (Auto) Lymph # (Auto) [place] # (Auto) Seg Neutrophils % Seg Neuts % (Manual) Nucleated RBC % Seg Neutrophils # Seg Neutrophils # Man Lymphocytes # (Manual) ABG pH POC ABG pCO2 POC ABG pO2 ABG Hemoglobin ABG Sodium ABG Potassium ABG Glucose Carboxyhemoglobin Sodium Potassium Chloride Carbon Dioxide BUN 22 H Creatinine Glucose 101 H POC Glucose 119 H Lactic Acid Calcium 7.9 L Phosphorus AST ALT CK-MB (CK-2) Rel Index Troponin T NT-Pro-B Natriuret Pep Serum Total Protein 5.3 L Total Protein 5.5 L Albumin 2.8 L 2.8 L Breib-7-Jzfjzukge 0.4 H Gamma Globulins 0.7 L PEP Interpretation see below H HDL Cholesterol Arterial Blood Glucose Arterial Blood Ionized Calcium Urine WBC (Auto) Urine Creatinine Hepatitis C Antibody 11/23/20 11/23/2011/24/21 18:21 23:28 01:48 WBC RBC Hgb Hct MCV Lymph % (Auto) [place] % (Auto) Lymph # (Auto) [place] # (Auto) Seg Neutrophils % Seg Neuts % (Manual) Nucleated RBC % Seg Neutrophils # Seg Neutrophils # Man Lymphocytes # (Manual) ABG pH 7.281 L POC ABG pCO2 58.4 H POC ABG pO2 ABG Hemoglobin 11.8 L ABG Sodium ABG Potassium ABG Glucose 101 H Carboxyhemoglobin Sodium Potassium Chloride Carbon Dioxide BUN Creatinine Glucose POC Glucose 106 H 108 H Lactic Acid Calcium Phosphorus AST ALT CK-MB (CK-2) Rel Index Troponin T NT-Pro-B Natriuret Pep Serum Total Protein Total Protein Albumin Avdwl-0-Rmfgewucx Gamma Globulins PEP Interpretation HDL Cholesterol Arterial Blood Glucose 101 H Arterial Blood Ionized Calcium Urine WBC (Auto) Urine Creatinine Hepatitis C Antibody 11/24/20 11/24/20 11/25/20 09:58 09:58 00:29 WBC RBC Hgb Hct MCV Lymph % (Auto) [place] % (Auto) Lymph # (Auto) [place] # (Auto) Seg Neutrophils % Seg Neuts % (Manual) Nucleated RBC % Seg Neutrophils # Seg Neutrophils # Man Lymphocytes # (Manual) ABG pH POC ABG pCO2 POC ABG pO2 ABG Hemoglobin ABG Sodium ABG Potassium ABG Glucose Carboxyhemoglobin Sodium 148 H Potassium Chloride Carbon Dioxide 34 H D BUN Creatinine Glucose POC Glucose 111 H Lactic Acid 0.60 L Calcium Phosphorus AST ALT CK-MB (CK-2) Rel Index Troponin T NT-Pro-B Natriuret Pep Serum Total Protein Total Protein Albumin Fnnnm-0-Kbneedhsc Gamma Globulins PEP Interpretation HDL Cholesterol Arterial Blood Glucose Arterial Blood Ionized Calcium Urine WBC (Auto) Urine Creatinine Hepatitis C Antibody 11/25/20 11/25/20 11/25/20 05:48 08:18 08:18 WBC 13.2 H RBC 3.56 L Hgb 10.9 L Hct 34.0 L MCV 96 H Lymph % (Auto) [place] % (Auto) Lymph # (Auto) [place] # (Auto) Seg Neutrophils % Seg Neuts % (Manual) 98.0 H Nucleated RBC % 1.0 H Seg Neutrophils # Seg Neutrophils # Man 12.9 H Lymphocytes # (Manual) 0.0 L ABG pH POC ABG pCO2 POC ABG pO2 ABG Hemoglobin ABG Sodium ABG Potassium ABG Glucose Carboxyhemoglobin Sodium 147 H Potassium Chloride Carbon Dioxide 32 H BUN 26 H Creatinine Glucose 151 H POC Glucose 148 H Lactic Acid Calcium Phosphorus AST ALT CK-MB (CK-2) Rel Index Troponin T NT-Pro-B Natriuret Pep Serum Total Protein Total Protein 6.0 L Albumin 3.7 L Wdbjv-0-Mdstjmunb Gamma Globulins PEP Interpretation HDL Cholesterol Arterial Blood Glucose Arterial Blood Ionized Calcium Urine WBC (Auto) Urine Creatinine Hepatitis C Antibody 11/25/20 11/25/20 11/25/20 11:34 18:03 23:15 WBC RBC Hgb Hct MCV Lymph % (Auto) [place] % (Auto) Lymph # (Auto) [place] # (Auto) Seg Neutrophils % Seg Neuts % (Manual) Nucleated RBC % Seg Neutrophils # Seg Neutrophils # Man Lymphocytes # (Manual) ABG pH POC ABG pCO2 POC ABG pO2 ABG Hemoglobin ABG Sodium ABG Potassium ABG Glucose Carboxyhemoglobin Sodium Potassium Chloride Carbon Dioxide BUN Creatinine Glucose POC Glucose 144 H 147 H 158 H Lactic Acid Calcium Phosphorus AST ALT CK-MB (CK-2) Rel Index Troponin T NT-Pro-B Natriuret Pep Serum Total Protein Total Protein Albumin Fznvx-6-Sjbwsdsmt Gamma Globulins PEP Interpretation HDL Cholesterol Arterial Blood Glucose Arterial Blood Ionized Calcium Urine WBC (Auto) Urine Creatinine Hepatitis C Antibody 11/26/20 11/26/20 11/26/20 05:07 06:22 06:22 WBC 12.3 H RBC 3.52 L Hgb 11.1 L Hct 33.6 L MCV 95 H Lymph % (Auto) [place] % (Auto) Lymph # (Auto) [place] # (Auto) Seg Neutrophils % Seg Neuts % (Manual) Nucleated RBC % Seg Neutrophils # Seg Neutrophils # Man Lymphocytes # (Manual) ABG pH POC ABG pCO2 POC ABG pO2 ABG Hemoglobin ABG Sodium ABG Potassium ABG Glucose Carboxyhemoglobin Sodium Potassium 3.3 L Chloride 95.8 L Carbon Dioxide 33 H BUN 35 H Creatinine 1.4 H Glucose 185 H POC Glucose 184 H Lactic Acid Calcium Phosphorus AST ALT CK-MB (CK-2) Rel Index Troponin T 0.036 H D NT-Pro-B Natriuret Pep Serum Total Protein Total Protein 6.2 L Albumin 3.1 L Uqkzv-0-Fkrcdxoow Gamma Globulins PEP Interpretation HDL Cholesterol Arterial Blood Glucose Arterial Blood Ionized Calcium Urine WBC (Auto) Urine Creatinine Hepatitis C Antibody 11/26/20 11/26/20 11/26/20 12:52 17:30 23:14 WBC RBC Hgb Hct MCV Lymph % (Auto) [place] % (Auto) Lymph # (Auto) [place] # (Auto) Seg Neutrophils % Seg Neuts % (Manual) Nucleated RBC % Seg Neutrophils # Seg Neutrophils # Man Lymphocytes # (Manual) ABG pH POC ABG pCO2 POC ABG pO2 ABG Hemoglobin ABG Sodium ABG Potassium ABG Glucose Carboxyhemoglobin Sodium Potassium Chloride Carbon Dioxide BUN Creatinine Glucose POC Glucose 170 H 133 H 149 H Lactic Acid Calcium Phosphorus AST ALT CK-MB (CK-2) Rel Index Troponin T NT-Pro-B Natriuret Pep Serum Total Protein Total Protein Albumin Puwjn-0-Ncebptjph Gamma Globulins PEP Interpretation HDL Cholesterol Arterial Blood Glucose Arterial Blood Ionized Calcium Urine WBC (Auto) Urine Creatinine Hepatitis C Antibody 11/27/20 11/27/20 11/27/20 05:35 08:03 12:02 WBC RBC Hgb Hct MCV Lymph % (Auto) [place] % (Auto) Lymph # (Auto) [place] # (Auto) Seg Neutrophils % Seg Neuts % (Manual) Nucleated RBC % Seg Neutrophils # Seg Neutrophils # Man Lymphocytes # (Manual) ABG pH POC ABG pCO2 POC ABG pO2 ABG Hemoglobin ABG Sodium ABG Potassium ABG Glucose Carboxyhemoglobin Sodium Potassium Chloride 97.0 L Carbon Dioxide 31 H BUN 41 H Creatinine 1.4 H Glucose 145 H POC Glucose 135 H 139 H Lactic Acid Calcium Phosphorus 2.20 L AST ALT CK-MB (CK-2) Rel Index Troponin T NT-Pro-B Natriuret Pep Serum Total Protein Total Protein Albumin Thfpe-6-Gicjmoxfd Gamma Globulins PEP Interpretation HDL Cholesterol Arterial Blood Glucose Arterial Blood Ionized Calcium Urine WBC (Auto) Urine Creatinine Hepatitis C Antibody 11/27/20 11/28/20 11/28/20 18:41 05:26 06:08 WBC RBC Hgb Hct MCV Lymph % (Auto) [place] % (Auto) Lymph # (Auto) [place] # (Auto) Seg Neutrophils % Seg Neuts % (Manual) Nucleated RBC % Seg Neutrophils # Seg Neutrophils # Man Lymphocytes # (Manual) ABG pH POC ABG pCO2 POC ABG pO2 ABG Hemoglobin ABG Sodium ABG Potassium ABG Glucose Carboxyhemoglobin Sodium Potassium Chloride Carbon Dioxide BUN 45 H Creatinine 1.4 H Glucose 135 H POC Glucose 148 H 143 H Lactic Acid Calcium Phosphorus AST ALT CK-MB (CK-2) Rel Index Troponin T NT-Pro-B Natriuret Pep Serum Total Protein Total Protein Albumin Ntmse-6-Ymhqeagvi Gamma Globulins PEP Interpretation HDL Cholesterol Arterial Blood Glucose Arterial Blood Ionized Calcium Urine WBC (Auto) Urine Creatinine Hepatitis C Antibody 11/28/20 11/28/20 11/28/20 11:46 17:31 21:17 WBC RBC Hgb Hct MCV Lymph % (Auto) [place] % (Auto) Lymph # (Auto) [place] # (Auto) Seg Neutrophils % Seg Neuts % (Manual) Nucleated RBC % Seg Neutrophils # Seg Neutrophils # Man Lymphocytes # (Manual) ABG pH POC ABG pCO2 POC ABG pO2 ABG Hemoglobin ABG Sodium ABG Potassium ABG Glucose Carboxyhemoglobin Sodium Potassium Chloride Carbon Dioxide BUN Creatinine Glucose POC Glucose 132 H 156 H 122 H Lactic Acid Calcium Phosphorus AST ALT CK-MB (CK-2) Rel Index Troponin T NT-Pro-B Natriuret Pep Serum Total Protein Total Protein Albumin Mjhkw-8-Ejnchpacs Gamma Globulins PEP Interpretation HDL Cholesterol Arterial Blood Glucose Arterial Blood Ionized Calcium Urine WBC (Auto) Urine Creatinine Hepatitis C Antibody 11/29/20 11/29/20 11/29/20 00:06 04:43 05:15 WBC RBC Hgb Hct MCV Lymph % (Auto) [place] % (Auto) Lymph # (Auto) [place] # (Auto) Seg Neutrophils % Seg Neuts % (Manual) Nucleated RBC % Seg Neutrophils # Seg Neutrophils # Man Lymphocytes # (Manual) ABG pH POC ABG pCO2 POC ABG pO2 ABG Hemoglobin ABG Sodium ABG Potassium ABG Glucose Carboxyhemoglobin Sodium Potassium Chloride 97.7 L Carbon Dioxide BUN 56 H Creatinine 1.6 H Glucose 132 H POC Glucose 114 H 125 H Lactic Acid Calcium Phosphorus AST ALT CK-MB (CK-2) Rel Index Troponin T NT-Pro-B Natriuret Pep Serum Total Protein Total Protein Albumin Yqryn-7-Tmkghxirn Gamma Globulins PEP Interpretation HDL Cholesterol Arterial Blood Glucose Arterial Blood Ionized Calcium Urine WBC (Auto) Urine Creatinine Hepatitis C Antibody 11/29/20 11/29/20 11/30/20 12:09 18:12 04:47 WBC RBC Hgb Hct MCV Lymph % (Auto) [place] % (Auto) Lymph # (Auto) [place] # (Auto) Seg Neutrophils % Seg Neuts % (Manual) Nucleated RBC % Seg Neutrophils # Seg Neutrophils # Man Lymphocytes # (Manual) ABG pH POC ABG pCO2 POC ABG pO2 ABG Hemoglobin ABG Sodium ABG Potassium ABG Glucose Carboxyhemoglobin Sodium Potassium Chloride Carbon Dioxide 31 H BUN 59 H Creatinine 1.6 H Glucose 122 H POC Glucose 142 H 132 H Lactic Acid Calcium Phosphorus AST ALT CK-MB (CK-2) Rel Index Troponin T NT-Pro-B Natriuret Pep Serum Total Protein Total Protein Albumin Uvium-9-Sutzlrdkn Gamma Globulins PEP Interpretation HDL Cholesterol Arterial Blood Glucose Arterial Blood Ionized Calcium Urine WBC (Auto) Urine Creatinine Hepatitis C Antibody 11/30/20 11/30/20 11/30/20 05:45 11:47 18:16 WBC RBC Hgb Hct MCV Lymph % (Auto) [place] % (Auto) Lymph # (Auto) [place] # (Auto) Seg Neutrophils % Seg Neuts % (Manual) Nucleated RBC % Seg Neutrophils # Seg Neutrophils # Man Lymphocytes # (Manual) ABG pH POC ABG pCO2 POC ABG pO2 ABG Hemoglobin ABG Sodium ABG Potassium ABG Glucose Carboxyhemoglobin Sodium Potassium Chloride Carbon Dioxide BUN Creatinine Glucose POC Glucose 118 H 123 H 126 H Lactic Acid Calcium Phosphorus AST ALT CK-MB (CK-2) Rel Index Troponin T NT-Pro-B Natriuret Pep Serum Total Protein Total Protein Albumin Vojby-3-Qiueaupbu Gamma Globulins PEP Interpretation HDL Cholesterol Arterial Blood Glucose Arterial Blood Ionized Calcium Urine WBC (Auto) Urine Creatinine Hepatitis C Antibody 12/01/20 12/01/20 12/01/20 00:11 04:57 05:41 WBC RBC Hgb Hct MCV Lymph % (Auto) [place] % (Auto) Lymph # (Auto) [place] # (Auto) Seg Neutrophils % Seg Neuts % (Manual) Nucleated RBC % Seg Neutrophils # Seg Neutrophils # Man Lymphocytes # (Manual) ABG pH POC ABG pCO2 POC ABG pO2 ABG Hemoglobin ABG Sodium ABG Potassium ABG Glucose Carboxyhemoglobin Sodium Potassium Chloride Carbon Dioxide BUN 52 H Creatinine 1.4 H Glucose 121 H POC Glucose 117 H 120 H Lactic Acid Calcium Phosphorus AST ALT CK-MB (CK-2) Rel Index Troponin T NT-Pro-B Natriuret Pep Serum Total Protein Total Protein Albumin Yidrz-5-Gddkbcrzt Gamma Globulins PEP Interpretation HDL Cholesterol Arterial Blood Glucose Arterial Blood Ionized Calcium Urine WBC (Auto) Urine Creatinine Hepatitis C Antibody 12/01/20 12/02/20 12/02/20 23:35 06:02 08:09 WBC RBC Hgb Hct MCV Lymph % (Auto) [place] % (Auto) Lymph # (Auto) [place] # (Auto) Seg Neutrophils % Seg Neuts % (Manual) Nucleated RBC % Seg Neutrophils # Seg Neutrophils # Man Lymphocytes # (Manual) ABG pH POC ABG pCO2 POC ABG pO2 ABG Hemoglobin ABG Sodium ABG Potassium ABG Glucose Carboxyhemoglobin Sodium Potassium Chloride Carbon Dioxide BUN Creatinine Glucose POC Glucose 117 H 108 H 117 H Lactic Acid Calcium Phosphorus AST ALT CK-MB (CK-2) Rel Index Troponin T NT-Pro-B Natriuret Pep Serum Total Protein Total Protein Albumin Hkruz-5-Hppgwlwnj Gamma Globulins PEP Interpretation HDL Cholesterol Arterial Blood Glucose Arterial Blood Ionized Calcium Urine WBC (Auto) Urine Creatinine Hepatitis C Antibody 12/02/20 12/02/20 12/02/20 09:40 11:33 17:34 WBC RBC Hgb Hct MCV Lymph % (Auto) [place] % (Auto) Lymph # (Auto) [place] # (Auto) Seg Neutrophils % Seg Neuts % (Manual) Nucleated RBC % Seg Neutrophils # Seg Neutrophils # Man Lymphocytes # (Manual) ABG pH POC ABG pCO2 POC ABG pO2 ABG Hemoglobin ABG Sodium ABG Potassium ABG Glucose Carboxyhemoglobin Sodium Potassium Chloride 97.6 L Carbon Dioxide 35 H BUN 45 H Creatinine Glucose POC Glucose 109 H 124 H Lactic Acid Calcium Phosphorus AST ALT CK-MB (CK-2) Rel Index Troponin T NT-Pro-B Natriuret Pep Serum Total Protein Total Protein Albumin Surta-8-Xcwvsirrk Gamma Globulins PEP Interpretation HDL Cholesterol Arterial Blood Glucose Arterial Blood Ionized Calcium Urine WBC (Auto) Urine Creatinine Hepatitis C Antibody 12/03/20 12/03/20 12/03/20 05:40 07:16 16:46 WBC RBC Hgb Hct MCV Lymph % (Auto) [place] % (Auto) Lymph # (Auto) [place] # (Auto) Seg Neutrophils % Seg Neuts % (Manual) Nucleated RBC % Seg Neutrophils # Seg Neutrophils # Man Lymphocytes # (Manual) ABG pH POC ABG pCO2 POC ABG pO2 ABG Hemoglobin ABG Sodium ABG Potassium ABG Glucose Carboxyhemoglobin Sodium Potassium Chloride Carbon Dioxide BUN 44 H Creatinine Glucose 117 H POC Glucose 115 H 106 H Lactic Acid Calcium Phosphorus AST ALT CK-MB (CK-2) Rel Index Troponin T NT-Pro-B Natriuret Pep Serum Total Protein Total Protein Albumin Hvmly-9-Wbafbzwrr Gamma Globulins PEP Interpretation HDL Cholesterol Arterial Blood Glucose Arterial Blood Ionized Calcium Urine WBC (Auto) Urine Creatinine Hepatitis C Antibody 12/03/20 12/04/20 12/04/20 21:55 07:53 11:43 WBC RBC Hgb Hct MCV Lymph % (Auto) [place] % (Auto) Lymph # (Auto) [place] # (Auto) Seg Neutrophils % Seg Neuts % (Manual) Nucleated RBC % Seg Neutrophils # Seg Neutrophils # Man Lymphocytes # (Manual) ABG pH POC ABG pCO2 POC ABG pO2 ABG Hemoglobin ABG Sodium ABG Potassium ABG Glucose Carboxyhemoglobin Sodium Potassium Chloride Carbon Dioxide BUN Creatinine Glucose POC Glucose 113 H 110 H 110 H Lactic Acid Calcium Phosphorus AST ALT CK-MB (CK-2) Rel Index Troponin T NT-Pro-B Natriuret Pep Serum Total Protein Total Protein Albumin Njsjo-7-Euillcqpp Gamma Globulins PEP Interpretation HDL Cholesterol Arterial Blood Glucose Arterial Blood Ionized Calcium Urine WBC (Auto) Urine Creatinine Hepatitis C Antibody 12/04/20 12/08/20 12/09/20 17:21 09:43 08:43 WBC RBC Hgb Hct MCV Lymph % (Auto) [place] % (Auto) Lymph # (Auto) [place] # (Auto) Seg Neutrophils % Seg Neuts % (Manual) Nucleated RBC % Seg Neutrophils # Seg Neutrophils # Man Lymphocytes # (Manual) ABG pH POC ABG pCO2 POC ABG pO2 ABG Hemoglobin ABG Sodium ABG Potassium ABG Glucose Carboxyhemoglobin Sodium Potassium Chloride 96.2 L Carbon Dioxide 39 H BUN 34 H Creatinine Glucose POC Glucose 135 H Lactic Acid Calcium Phosphorus AST ALT CK-MB (CK-2) Rel Index Troponin T NT-Pro-B Natriuret Pep 4253 H Serum Total Protein Total Protein Albumin Ytueg-7-Snokzmcve Gamma Globulins PEP Interpretation HDL Cholesterol Arterial Blood Glucose Arterial Blood Ionized Calcium Urine WBC (Auto) Urine Creatinine Hepatitis C Antibody
[2020-12-10] MEDS ORDERED: FUROSEMIDE 40 MG/4 ML INJ IV SCH (08:30)
[2020-12-10] MEDS: BUDESONIDE 0.5 MG/2 ML NEBU IH SCH ×2 (08:42→19:41)
[2020-12-10] MEDS: TAMSULOSIN 0.4 MG CAP PO SCH (11:02)
[2020-12-10] MEDS: carvediloL 12.5 MG TAB PO SCH ×2 (11:02→22:06)
[2020-12-10] MEDS: QUEtiapine 25 MG TAB PO SCH ×2 (11:02→22:06)
[2020-12-10] MEDS: LANSOPRAZOLE 30 MG SOLUTAB FEEDTUBE SCH (11:02)
[2020-12-10] MEDS: ASPIRIN 81 MG TAB CHEW PO SCH (11:02)
[2020-12-10] MEDS: SENNOSIDES/DOCUSATE SODIUM 8.6/50 MG TAB FEEDTUBE SCH ×2 (11:07→22:06)
[2020-12-10 15:40] LABS: BUN/Creatinine Ratio 42; Blood Urea Nitrogen 46 mg/dL (9-20); Calcium 8.7 mg/dL (8.4-10.2); Hemolysis Index 28
--- NOTE | 2020-12-10 17:24 | Progress Note ---
Assessment and Plan Assessment and plan: Patient continues to require high flow nasal cannula oxygen, 15 L-20 L last 24 hours 20 L today --Acute hypoxic respiratory failure/Requiring intubation 11/21/2020 s/p extubation 11/23/2020, patient is on noninvasive ventilation on high flow nasal cannula oxygen 25 L/35% FiO2/O2 sats 96% Clinically patient is more alert and awake responding appropriately Remains on HFNC oxygen 20 L today ,wean as tolerated Management per pulmonary --Uncontrolled hypertension; blood pressures well controlled today Continue current antihypertensives and as needed medications --Acute exacerbation of COPD; Home oxygen dependent. Patient is on 20 L high flow nasal cannula today BiPAP as needed, wean as tolerated Continue nebulizers, tapering dose of IV steroids, supportive care --Acute kidney injury; resolved Due to vasomotor nephropathy Received gentle hydration and supportive care Now ARF resolved, normal renal function, avoid nephrotoxins --Severe pulmonary hypertension; Management per pulmonary, continue supportive care --Acute metabolic encephalopathy 11/21 CT head shows no acute intracranial abnormality, sinus disease Continue supportive care. As per family patient is back to baseline intermittently --NSTEMI type II Presented with [facility] with elevated troponins cardiology patient had a stress test in 2019 which showed no significant ischemia, Echo; EF 50 to 55% severe pulmonary hypertension moderate mitral stenosis may benefit from [facility] for evaluation of mitral valve when patient is stable Medical management per cardiology --Acute kidney injury; present on admission/resolved Vasomotor nephropathy Now resolved, normal renal function Avoid nephrotoxins, nephrology following --History of bladder cancer; Indwelling Paulson in place, supportive care Continue Flomax --Urinary tract infection; Completed antibiotics total 5 days --Dyslipidemia; Continue statin and low-cholesterol diet --Hypertension; moderate control We will continue current antihypertensives And as needed hydralazine --Hypernatremia ; resolved Patient was hyponatremia on admission ,probably overcorrection Increase oral intake of water/monitor electrolytes --Severe protein calorie malnutrition ; Hypoalbuminemia ,nutrition supplements Nutrition consult and supportive care --Nutrition; cardiac diet as tolerated --DVT prophylaxis; Subcu heparin, SCDs --GI prophylaxis; Continue Prevacid --Full CODE STATUS; PT OT evaluation noted and appreciated Recommend home health PT and OT at discharge Today patient is requiring 15 L nasal cannula oxygen Will wean slowly to 2 to 4 L and plan discharge We will closely monitor the patient and adjust the management as needed Consults and recommendations noted and appreciated Plan of care reviewed with the patient's nurse Brief history and daily hospital course: 85-year-old male patient with past medical history of COPD on home oxygen, GERD, hypertension, asthma, hyperlipidemia, vasopressin, bladder cancer admitted for acute hypoxic respiratory failure, intubated on 11/21/2020 managed appropriately evaluated by pulmonary critical subsequently extubated on 2020, today patient is on high flow nasal cannula oxygen, pulmonary critical, cardiology and nephrology following the patient 11/23: Patient was extubated, currently on BiPAP Mild distress, wean as tolerated 11/25/2020; patient is on BiPAP Mild distress, noncommunicative 11/26/2020; patient is on intermittent BiPAP Currently on high flow nasal cannula oxygen 11/27/2020; patient is more alert and awake Will get swallow screen, if normal start pured diet Transfer the patient to [facility] 11/28/2020; patient is on high flow oxygen slightly better than yesterday Able to tolerate mechanical soft diet when the family comes and helps him DC planning, considering LTAC placement 11/29 Still on HFNC oxygen 11/30 Still on HFNC oxygen 12/01 on 35 liters O2 714/21; patient remains on high flow nasal cannula oxygen requiring 25 L/FiO2 35%/O2 sats 96 Wean as tolerated, awaiting LTAC placement Patient is hemodynamically and clinically stable to be transferred out of [facility] to cardiac telemetry or medical floor with remote telemetry today. 12/04/2020; remains on high flow oxygen 25 L/35%/96% O2 sats Wean as tolerated, pending LTAC placement consider PT OT once patient's respiratory status is stable 12/05/2020; patient feels slightly better more alert and awake Responding to simple questions appropriately, titrated the oxygen Today patient is requiring 3 to 4 L of nasal cannula oxygen Significantly improved from yesterday when he needed 25 L Physical therapy evaluation and treatment, home oxygen evaluation prior to discharge 12/06/2020; patient is requiring 10 L of supplemental oxygen today Wean as tolerated PT OT evaluation recommendations noted, Possible discharge in 1 to 2 days if stable Patient's son Ana Morejon [phone] at the bedside Discussed in detail patient's condition, tests and reports Discharge planning, answered all his questions 12/07/2020; today patient is requiring high flow nasal cannula oxygen, 25 L In mild distress, wean as tolerated to 3 to 4 L nasal cannula DC planning per case management, possible home with home health when patient is medically stable 12/08/2020 today patient is requiring high flow nasal cannula oxygen, but slightly improved patient is at 15 L O2 PT and OT recommend home health PT OT, wean patient off high flow oxygen Titrate to 3 to 4 L nasal cannula, possible discharge in 1 to 2 days if stable And cleared by pulmonary 12/09/2020; patient continues to require high flow nasal cannula oxygen between 15 to 20 L Management per pulmonary. Wean as tolerated I spoke with bilingual Kuwaiti speaking granddaughter at the bedside, answered all her questions 12/10/2020; no change clinically, continues to require 20 to 30 L of high flow nasal cannula oxygen If no improvement we will consider transferring to IMCU or ICU after discussing with pulmonary History Interval history: I have seen and examined the patient at the bedside this morning during morning rounds Patient's chart and medications reviewed Patient remains on high flow nasal cannula oxygen 20L to 30 L last 24 to 48 hours Patient is lethargic in mild distress Vital signs noted Hospitalist Physical - Constitutional Vitals: Temp Pulse Resp BP Pulse Ox 97.1 F L 63 22 138/58 100 12/10/20 17:03 12/10/20 17:03 12/10/20 17:03 12/10/20 17:03 12/10/20 17:03 General appearance: Present: mild distress, well-nourished, obese, other (On high flow NC oxygen, patient is in mild distress) - EENT Eyes: Present: PERRL, EOM intact - Neck Neck: Present: supple, normal ROM - Respiratory Respiratory effort: normal Respiratory: bilateral: diminished, negative: rales, rhonchi, wheezing - Cardiovascular Rhythm: regular Heart Sounds: Present: S1 & S2 - Extremities Extremities: no ischemia, No edema - Abdominal General gastrointestinal: soft, non-tender, non-distended, normal bowel sounds - Integumentary Integumentary: Present: clear, warm - Psychiatric Psychiatric: appropriate mood/affect, cooperative - Neurologic Neurologic: CNII-XII intact, moves all extremities HEART Score - HEART Score Troponin: Troponin T 0.021 ng/mL (0.00-0.029) 11/29/20 04:43 Results - Labs CBC & Chem 7: 11/28/20 09:21 12/10/20 14:53 Labs: Laboratory Last Values WBC 9.8 K/mm3 (4.5-11.0) 11/28/20 09:21 RBC 4.01 M/mm3 (3.65-5.03) 11/28/20 09:21 Hgb 12.3 gm/dl (11.8-15.2) 11/28/20 09:21 Hct 37.6 % (35.5-45.6) 11/28/20 09:21 MCV 94 fl (84-94) 11/28/20 09:21 MCH 31 pg (28-32) 11/28/20 09:21 MCHC 33 % (32-34) 11/28/20 09:21 RDW 15.1 % (13.2-15.2) 11/28/20 09:21 Plt Count 369 K/mm3 (140-440) 11/28/20 09:21 Lymph % (Auto) 16.1 % (13.4-35.0) 11/23/20 10:00 Darke % (Auto) 15.0 % (0.0-7.3) H 11/23/20 10:00 Eos % (Auto) 1.0 % (0.0-4.3) 11/23/20 10:00 Baso % (Auto) 0.5 % (0.0-1.8) 11/23/20 10:00 Lymph # (Auto) 1.6 K/mm3 (1.2-5.4) 11/23/20 10:00 Darke # (Auto) 1.5 K/mm3 (0.0-0.8) H 11/23/20 10:00 Eos # (Auto) 0.1 K/mm3 (0.0-0.4) 11/23/20 10:00 Baso # (Auto) 0.1 K/mm3 (0.0-0.1) 11/23/20 10:00 Add Manual Diff Complete 11/25/20 08:18 Total Counted 100 11/25/20 08:18 Seg Neutrophils % Aircraft [employer] Armament 11/25/20 08:18 Seg Neuts % (Manual) 98.0 % (40.0-70.0) H 11/25/20 08:18 Monocytes % (Manual) 2.0 % (0.0-7.3) 11/25/20 08:18 Nucleated RBC % 1.0 % (0.0-0.9) H 11/25/20 08:18 Seg Neutrophils # 6.6 K/mm3 (1.8-7.7) 11/23/20 10:00 Seg Neutrophils # Man 12.9 K/mm3 (1.8-7.7) H 11/25/20 08:18 Band Neutrophils # 0.0 K/mm3 11/25/20 08:18 Lymphocytes # (Manual) 0.0 K/mm3 (1.2-5.4) L 11/25/20 08:18 Abs React Lymphs (Man) 0.0 K/mm3 11/25/20 08:18 Monocytes # (Manual) 0.3 K/mm3 (0.0-0.8) 11/25/20 08:18 Eosinophils # (Manual) 0.0 K/mm3 (0.0-0.4) 11/25/20 08:18 Basophils # (Manual) 0.0 K/mm3 (0.0-0.1) 11/25/20 08:18 Metamyelocytes # 0.0 K/mm3 11/25/20 08:18 Myelocytes # 0.0 K/mm3 11/25/20 08:18 Promyelocytes # 43.8 K/mm3 11/25/20 08:18 Blast Cells # 0.0 K/mm3 11/25/20 08:18 WBC Morphology Not Reportable 11/25/20 08:18 Hypersegmented Neuts Not Reportable 11/25/20 08:18 Hyposegmented Neuts Not Reportable 11/25/20 08:18 Hypogranular Neuts Not Reportable 11/25/20 08:18 Smudge Cells Not Reportable 11/25/20 08:18 Toxic Granulation Few 11/25/20 08:18 Toxic Vacuolation Not Reportable 11/25/20 08:18 Dohle Bodies Not Reportable 11/25/20 08:18 Pelger-Huet Anomaly Not Reportable 11/25/20 08:18 Liang Rods Not Reportable 11/25/20 08:18 Platelet Estimate Consistent w auto 11/25/20 08:18 Clumped Platelets Not Reportable 11/25/20 08:18 Plt Clumps, EDTA Not Reportable 11/25/20 08:18 Large Platelets Not Reportable 11/25/20 08:18 Giant Platelets Not Reportable 11/25/20 08:18 Platelet Satelliting Not Reportable 11/25/20 08:18 Plt Morphology Comment Not Reportable 11/25/20 08:18 RBC Morphology Not Reportable 11/25/20 08:18 Dimorphic RBCs Not Reportable 11/25/20 08:18 Polychromasia Not Reportable 11/25/20 08:18 Hypochromasia 1+ 11/25/20 08:18 Poikilocytosis Not Reportable 11/25/20 08:18 Anisocytosis Not Reportable 11/25/20 08:18 Microcytosis Not Reportable 11/25/20 08:18 Macrocytosis Not Reportable 11/25/20 08:18 Spherocytes Not Reportable 11/25/20 08:18 Pappenheimer Bodies Not Reportable 11/25/20 08:18 Sickle Cells Not Reportable 11/25/20 08:18 Target Cells 1+ 11/25/20 08:18 Tear Drop Cells Not Reportable 11/25/20 08:18 Ovalocytes Not Reportable 11/25/20 08:18 Helmet Cells Not Reportable 11/25/20 08:18 [place] Bodies Not Reportable 11/25/20 08:18 [place] Rings Not Reportable 11/25/20 08:18 [place] Cells Not Reportable 11/25/20 08:18 Bite Cells Not Reportable 11/25/20 08:18 Crenated Cell Not Reportable 11/25/20 08:18 Elliptocytes Not Reportable 11/25/20 08:18 Acanthocytes (Spur) Not Reportable 11/25/20 08:18 Rouleaux Not Reportable 11/25/20 08:18 Hemoglobin C Crystals Not Reportable 11/25/20 08:18 Schistocytes Not Reportable 11/25/20 08:18 Malaria parasites Not Reportable 11/25/20 08:18 Fuad Bodies Not Reportable 11/25/20 08:18 Hem Pathologist Commnt No 11/25/20 08:18 PT 13.5 Sec. (12.2-14.9) 11/21/20 20:50 INR 0.98 (0.87-1.13) 11/21/20 20:50 APTT 32.1 Sec. (24.2-36.6) 11/21/20 20:50 ABG pH 7.281 (7.320-7.450) L 11/24/20 01:48 POC ABG pCO2 58.4 mmHg (32.0-48.0) H 11/24/20 01:48 POC ABG pO2 98.1 mmHg (83-108) 11/24/20 01:48 POC ABG HCO3 26.9 11/24/20 01:48 ABG O2 Saturation 96.9 (0-100) 11/24/20 01:48 POC ABG Base Excess -0.7 11/24/20 01:48 ABG Hemoglobin 11.8 (12.0-17.5) L 11/24/20 01:48 ABG Oxyhemoglobin 95.9 (94-98) 11/24/20 01:48 ABG Methemoglobin 0.3 (0.0-1.5) 11/24/20 01:48 ABG Sodium 140.6 mmol/L (136.0-145.0) 11/24/20 01:48 ABG Potassium 3.9 mmol/L (3.40-4.50) 11/24/20 01:48 ABG Chloride 104.0 mmol/L (98-107) 11/24/20 01:48 ABG Glucose 101 mg/dL (65-95) H 11/24/20 01:48 Carboxyhemoglobin 0.7 (0.5-1.5) 11/24/20 01:48 FiO2 % 50.0 11/24/20 01:48 Sodium 138 mmol/L (137-145) 12/10/20 14:53 Potassium 3.8 mmol/L (3.6-5.0) D 12/10/20 14:53 Chloride 91.9 mmol/L (98-107) L 12/10/20 14:53 Carbon Dioxide 39 mmol/L (22-30) H 12/10/20 14:53 Anion Gap 11 mmol/L 12/10/20 14:53 BUN 46 mg/dL (9-20) H 12/10/20 14:53 Creatinine 1.1 mg/dL (0.8-1.3) 12/10/20 14:53 Estimated GFR > 60 ml/min 12/10/20 14:53 BUN/Creatinine Ratio 42 % 12/10/20 14:53 Glucose 141 mg/dL (75-100) H 12/10/20 14:53 POC Glucose 135 mg/dL (70-105) H 12/04/20 17:21 Lactic Acid 0.60 mmol/L (0.7-2.0) L 11/24/20 09:58 Calcium 8.7 mg/dL (8.4-10.2) 12/10/20 14:53 Phosphorus 3.80 mg/dL (2.5-4.5) 12/10/20 14:53 Magnesium 2.00 mg/dL (1.7-2.3) 12/10/20 14:53 Total Bilirubin 0.30 mg/dL (0.1-1.2) 11/26/20 06:22 AST 18 units/L (5-40) 11/26/20 06:22 ALT 22 units/L (7-56) 11/26/20 06:22 Alkaline Phosphatase 55 units/L (35-129) 11/26/20 06:22 Total Creatine Kinase 132 units/L (55-170) 11/22/20 10:20 CK-MB (CK-2) 3.3 ng/mL (0.0-4.0) 11/22/20 10:20 CK-MB (CK-2) Rel Index 2.5 (0-4) 11/22/20 10:20 Troponin T 0.021 ng/mL (0.00-0.029) 11/29/20 04:43 NT-Pro-B Natriuret Pep 4253 pg/mL (0-900) H 12/09/20 08:43 Serum Total Protein 5.3 g/dL (6.1-8.1) L 11/23/20 10:00 Total Protein 6.2 g/dL (6.3-8.2) L 11/26/20 06:22 Albumin 3.1 g/dL (3.9-5) L 11/26/20 06:22 Albumin/Globulin Ratio 1.0 % 11/26/20 06:22 Mpmpn-3-Dlcyreskm 0.4 g/dL (0.2-0.3) H 11/23/20 10:00 Glgfd-9-Vskfkvmkg 0.8 g/dL (0.5-0.9) 11/23/20 10:00 Beta Globulins 0.3 g/dL (0.2-0.5) 11/23/20 10:00 Gamma Globulins 0.7 g/dL (0.8-1.7) L 11/23/20 10:00 Abnorm Protein Band 1 see below 11/23/20 10:00 PEP Interpretation see below H 11/23/20 10:00 Triglycerides 84 mg/dL (2-149) 11/21/20 20:50 Cholesterol 125 mg/dL (50-199) 11/21/20 20:50 LDL Cholesterol Direct 57 mg/dL (50-130) 11/21/20 20:50 HDL Cholesterol 60 mg/dL (40-59) H 11/21/20 20:50 Cholesterol/HDL Ratio 2.08 % 11/21/20 20:50 TSH 1.290 mlU/mL (0.270-4.200) 11/21/20 20:50 Free T4 1.18 ng/dL (0.76-1.46) 11/21/20 20:50 Arterial Blood Glucose 101 mg/dL (65-95) H 11/24/20 01:48 Arterial Blood Ionized Calcium 4.7 mg/dL (4.6-5.3) 11/24/20 01:48 Urine Color Yellow (Yellow) 11/22/20 05:00 Urine Turbidity Slightly-cloudy (Clear) 11/22/20 05:00 Urine pH 5.0 (5.0-7.0) 11/22/20 05:00 Ur Specific [place] 1.016 (1.003-1.030) 11/22/20 05:00 Urine Protein 30 mg/dl mg/dL (Negative) 11/22/20 05:00 Urine Glucose (UA) Neg mg/dL (Negative) 11/22/20 05:00 Urine Ketones Neg mg/dL (Negative) 11/22/20 05:00 Urine Blood Lg (Negative) 11/22/20 05:00 Urine Nitrite Neg (Negative) 11/22/20 05:00 Urine Bilirubin Neg (Negative) 11/22/20 05:00 Urine Urobilinogen < 2.0 mg/dL (<2.0) 11/22/20 05:00 Ur Leukocyte Esterase Tr (Negative) 11/22/20 05:00 Urine WBC (Auto) 33.0 /HPF (0.0-6.0) H 11/22/20 05:00 Urine RBC (Auto) 49.0 /HPF (0.0-6.0) 11/22/20 05:00 U Epithel Cells (Auto) 1.0 /HPF (0-13.0) 11/22/20 05:00 Hyaline Casts 4 /LPF 11/22/20 05:00 Urine Mucus 1+ /HPF 11/22/20 05:00 Urine Eosinophils None seen (None Seen) 11/24/20 17:55 Urine Creatinine 158.2 mg/dL (0.1-20.0) H 11/22/20 00:11 Urine Sodium 39 mmol/L 11/22/20 00:11 Fraction Sodium Excret 0.3 11/22/20 00:11 Urine Opiates Screen Presumptive negative 11/22/20 00:11 Urine Methadone Screen Presumptive negative 11/22/20 00:11 Ur Barbiturates Screen Presumptive negative 11/22/20 00:11 Ur Phencyclidine Scrn Presumptive negative 11/22/20 00:11 Ur Amphetamines Screen Presumptive negative 11/22/20 00:11 U Benzodiazepines Scrn Presumptive negative 11/22/20 00:11 Urine Cocaine Screen Presumptive negative 11/22/20 00:11 U Marijuana (THC) Screen Presumptive negative 11/22/20 00:11 Drugs of Abuse Note Disclamer 11/22/20 00:11 Plasma/Serum Alcohol < 0.01 % (0-0.07) 11/21/20 20:50 Proteinase 3 (PR3) Ab <1.0 AI (<1.0) 11/22/20 16:00 Myeloperoxidase Ab <1.0 AI (<1.0) 11/22/20 16:00 Double Strand DNA Ab 1 IU/mL (<=4) 11/22/20 16:00 Complement C3 93 mg/dL () 11/22/20 16:00 Complement C4 25 mg/dL () 11/22/20 16:00 Coronavirus (PCR) Negative (Negative) 11/23/20 09:30 Hepatitis A IgM Ab Non-reactive (NonReactive) 11/22/20 16:00 Hep Bs Antigen Non-reactive (Negative) 11/22/20 16:00 Hep B Core IgM Ab Non-reactive (NonReactive) 11/22/20 16:00 Hepatitis C Antibody Reactive (NonReactive) A 11/22/20 16:00 Paulson/IV: Voiding Method Urinal Active Medications - Current Medications Current Medications: Generic Name Dose Route Start Last Admin Trade Name Freq PRN Reason Stop Dose Admin Acetaminophen 650 mg 11/23/20 15:29 12/02/20 14:30 Acetaminophen 325 Mg Tab PO 650 mg Q4H PRN Administration Pain, Mild (1-3) Albuterol 2.5 mg 11/22/20 01:19 Albuterol 2.5 Mg/3 Ml Nebu IH Q4HRT PRN Shortness Of Breath Albuterol/Ipratropium 1 ampul 11/22/20 02:00 12/10/20 13:13 Ipratropium/Albuterol Sulfate 3 Ml Ampul.Neb IH 1 ampul Q6HRT TERESA Administration Lipase/Protease/Amylase 1 each 11/22/20 09:07 Lipase 10,500/Protease 25,000/Amylase 43,750 (Units) Dr Ger FARIA PRN PRN For Clogged Feeding Tube Aspirin 81 mg 11/23/20 10:00 12/10/20 11:02 Aspirin 81 Mg Tab Chew PO 81 mg QDAY TERESA Administration Atorvastatin Calcium 40 mg 11/22/20 22:00 12/09/20 21:10 Atorvastatin 40 Mg Tab PO 40 mg QHS TERESA Administration Budesonide 0.5 mg 11/24/20 14:55 12/10/20 08:42 Budesonide 0.5 Mg/2 Ml Nebu IH 0.5 mg Q12HRT TERESA Administration Carvedilol 12.5 mg 12/03/20 22:00 12/10/20 11:02 Carvedilol 12.5 Mg Tab PO 12.5 mg BID TERESA Administration Heparin Sodium (Porcine) 5,000 unit 11/22/20 06:00 12/10/20 14:12 Heparin 5,000 Unit/1 Ml Vial SUB-Q 5,000 unit Q8HR TERESA Administration Hydralazine HCl 10 mg 11/22/20 01:24 12/09/20 05:44 Hydralazine 20 Mg/1 Ml Inj IV 10 mg Q6H PRN Administration Blood Pressure Lansoprazole 30 mg 11/28/20 10:00 12/10/20 11:02 Lansoprazole 30 Mg Solutab FEEDTUBE 30 mg QDAY TERESA Administration Methylprednisolone Sodium Succinate 60 mg 12/08/20 12:00 12/10/20 11:07 Methylprednisolone Sod Succinate 125 Mg/2 Ml Inj IV 60 mg Q6HR TERESA Administration Nitroglycerin 0.4 mg 11/22/20 01:25 12/06/20 05:22 Nitroglycerin 0.4 Mg Tab Subl SL 0.4 mg Q5M PRN Administration Chest Pain Ondansetron HCl 4 mg 11/22/20 01:19 Ondansetron 4 Mg/2 Ml Inj IV Q8H PRN Nausea And Vomiting Quetiapine Fumarate 25 mg 11/27/20 12:00 12/10/20 11:02 Quetiapine 25 Mg Tab PO 25 mg BID TERESA Administration Senna/Docusate Sodium 1 tab 11/22/20 10:00 12/10/20 11:07 Sennosides/Docusate Sodium 8.6/50 Mg Tab FEEDTUBE 1 tab BID TERESA Administration Simple Syrup 15 ml 11/22/20 09:07 Simple Syrup 15 Ml FEEDTUBE PRN PRN Hypoglycemia Simple Syrup 30 ml 11/22/20 09:07 Simple Syrup 15 Ml FEEDTUBE PRN PRN Hypoglycemia Sodium Bicarbonate 325 mg 11/22/20 09:07 Sodium Bicarbonate 325 Mg Tab FEEDTUBE PRN PRN For Clogged Feeding Tube Sodium Chloride 10 ml 11/22/20 10:00 12/10/20 11:03 Sodium Chloride 0.9% 10 Ml Flush Syringe IV 10 ml BID TERESA Administration Sodium Chloride 10 ml 11/22/20 01:19 Sodium Chloride 0.9% 10 Ml Flush Syringe IV PRN PRN LINE FLUSH Tamsulosin HCl 0.4 mg 11/22/20 10:00 12/10/20 11:02 Tamsulosin 0.4 Mg Cap PO 0.4 mg DAILY TERESA Administration Nutrition/Malnutrition Assess - Dietary Evaluation Nutrition/Malnutrition Findings: Nutrition Notes Start: 11/22/20 08:53 Freq: Status: Active Protocol: Document 12/08/20 15:43 NHALL (Rec: 12/08/20 15:46 NHALL [id number]) Nutrition Notes Initial or Follow up Brief Note Current Diet Mec soft Subjective/Other Information Per RN, pt does not eat very much (even though family brings foods from home). Pt requires high-flow oxygen via NC; awaiting placement. Nutrition Intervention Follow-Up By: 12/11/20 Additional Comments F/U: intakes, POC
[2020-12-11] MEDS: HEPARIN 5,000 UNIT/1 ML VIAL SUB-Q SCH ×3 (05:57→21:43)
[2020-12-11] MEDS: methylPREDNISolone Sod Succinate 125 MG/2 ML INJ IV SCH ×4 (05:57→18:25)
--- NOTE | 2020-12-11 08:56 | Progress Note ---
Assessment and Plan Assessment and plan: Patient continues to require high flow nasal cannula oxygen, 30 L-40 L the last 24 hours This morning patient is on 40 L high flow nasal cannula oxygen --Acute hypoxic respiratory failure/Requiring intubation 11/21/2020 s/p extubation 11/23/2020, patient was on noninvasive ventilation Currently on high flow nasal cannula oxygen 30-40 L. Management per pulmonary, CM processing paperwork for LTAC placement --Uncontrolled hypertension; blood pressures well controlled today Continue current antihypertensives and as needed medications --Acute exacerbation of COPD; Home oxygen dependent. Patient is on 20 L high flow nasal cannula today BiPAP as needed, wean as tolerated Continue nebulizers, tapering dose of IV steroids, supportive care --Acute kidney injury; resolved Due to vasomotor nephropathy Received gentle hydration and supportive care Now ARF resolved, normal renal function, avoid nephrotoxins --Severe pulmonary hypertension; Management per pulmonary, continue supportive care --Acute metabolic encephalopathy 11/21 CT head shows no acute intracranial abnormality, sinus disease Continue supportive care. As per family patient is back to baseline intermittently --NSTEMI type II Presented with [facility] with elevated troponins cardiology patient had a stress test in 2019 which showed no significant ischemia, Echo; EF 50 to 55% severe pulmonary hypertension moderate mitral stenosis may benefit from [facility] for evaluation of mitral valve when patient is stable Medical management per cardiology --Acute kidney injury; present on admission/resolved Vasomotor nephropathy Now resolved, normal renal function Avoid nephrotoxins, nephrology following --History of bladder cancer; Indwelling Paulson in place, supportive care Continue Flomax --Urinary tract infection; Completed antibiotics total 5 days --Dyslipidemia; Continue statin and low-cholesterol diet --Hypertension; moderate control We will continue current antihypertensives And as needed hydralazine --Hypernatremia ; resolved Patient was hyponatremia on admission ,probably overcorrection Increase oral intake of water/monitor electrolytes --Severe protein calorie malnutrition ; Hypoalbuminemia ,nutrition supplements Nutrition consult and supportive care --Nutrition; cardiac diet as tolerated --DVT prophylaxis; Subcu heparin, SCDs --GI prophylaxis; Continue Prevacid --Full CODE STATUS; PT OT evaluation noted and appreciated Recommend home health PT and OT at discharge Today patient is requiring 15 L nasal cannula oxygen Will wean slowly to 2 to 4 L and plan discharge We will closely monitor the patient and adjust the management as needed Consults and recommendations noted and appreciated Plan of care reviewed with the patient's nurse Patient is critically ill poor prognosis Discussed with family Brief history and daily hospital course: 85-year-old male patient with past medical history of COPD on home oxygen, GERD, hypertension, asthma, hyperlipidemia, vasopressin, bladder cancer admitted for acute hypoxic respiratory failure, intubated on 11/21/2020 managed appropriately evaluated by pulmonary critical subsequently extubated on 11/23/2020, today patient is on high flow nasal cannula oxygen, pulmonary critical, cardiology and nephrology following the patient 11/23: Patient was extubated, currently on BiPAP Mild distress, wean as tolerated 11/25/2020; patient is on BiPAP Mild distress, noncommunicative 11/26/2020; patient is on intermittent BiPAP Currently on high flow nasal cannula oxygen 11/27/2020; patient is more alert and awake Will get swallow screen, if normal start pured diet Transfer the patient to [facility] 11/28/2020; patient is on high flow oxygen slightly better than yesterday Able to tolerate mechanical soft diet when the family comes and helps him DC planning, considering LTAC placement 11/29 Still on HFNC oxygen 11/30 Still on HFNC oxygen 12/01 on 35 liters O2 714/21; patient remains on high flow nasal cannula oxygen requiring 25 L/FiO2 35%/O2 sats 96 Wean as tolerated, awaiting LTAC placement Patient is hemodynamically and clinically stable to be transferred out of [facility] to cardiac telemetry or medical floor with remote telemetry today. 12/04/2020; remains on high flow oxygen 25 L/35%/96% O2 sats Wean as tolerated, pending LTAC placement consider PT OT once patient's respiratory status is stable 12/05/2020; patient feels slightly better more alert and awake Responding to simple questions appropriately, titrated the oxygen Today patient is requiring 3 to 4 L of nasal cannula oxygen Significantly improved from yesterday when he needed 25 L Physical therapy evaluation and treatment, home oxygen evaluation prior to discharge 12/06/2020; patient is requiring 10 L of supplemental oxygen today Wean as tolerated PT OT evaluation recommendations noted, Possible discharge in 1 to 2 days if stable Patient's son Ana Morejon [phone] at the bedside Discussed in detail patient's condition, tests and reports Discharge planning, answered all his questions 12/07/2020; today patient is requiring high flow nasal cannula oxygen, 25 L In mild distress, wean as tolerated to 3 to 4 L nasal cannula DC planning per case management, possible home with home health when patient is medically stable 12/08/2020 today patient is requiring high flow nasal cannula oxygen, but slightly improved patient is at 15 L O2 PT and OT recommend home health PT OT, wean patient off high flow oxygen Titrate to 3 to 4 L nasal cannula, possible discharge in 1 to 2 days if stable And cleared by pulmonary 12/09/2020; patient continues to require high flow nasal cannula oxygen between 15 to 20 L Management per pulmonary. Wean as tolerated I spoke with bilingual Belarusian speaking granddaughter at the bedside, answered all her questions 12/10/2020; no change clinically, continues to require 20 to 30 L of high flow nasal cannula oxygen If no improvement we will consider transferring to IMCU or ICU for close observation after discussing with pulmonary. Critical care time 35 minutes ; History Interval history: I have seen and examined the patient at the bedside Patient's chart and medications reviewed Patient remains on high flow oxygen 40 L/FiO2 70%/O2 sats 99% Patient is lethargic, minimally communicative, mild distress Vital signs reviewed Hospitalist Physical - Constitutional Vitals: Temp Pulse Resp BP Pulse Ox 97.5 F L 65 18 144/66 100 12/11/20 04:43 12/11/20 04:43 12/11/20 04:43 12/11/20 04:43 12/11/20 04:43 General appearance: Present: mild distress, well-nourished, obese, other (On high flow NC oxygen, patient is in mild distress) - EENT Eyes: Present: PERRL, EOM intact - Neck Neck: Present: supple, normal ROM - Respiratory Respiratory effort: normal Respiratory: bilateral: diminished, rhonchi, negative: rales, wheezing - Cardiovascular Rhythm: regular Heart Sounds: Present: S1 & S2 - Extremities Extremities: no ischemia, No edema - Abdominal General gastrointestinal: soft, non-tender, non-distended, normal bowel sounds - Integumentary Integumentary: Present: clear, warm - Psychiatric Psychiatric: appropriate mood/affect, cooperative - Neurologic Neurologic: CNII-XII intact, moves all extremities HEART Score - HEART Score Troponin: Troponin T 0.021 ng/mL (0.00-0.029) 11/29/20 04:43 Results - Labs CBC & Chem 7: 11/28/20 09:21 12/10/20 14:53 Labs: Laboratory Last Values WBC 9.8 K/mm3 (4.5-11.0) 11/28/20 09:21 RBC 4.01 M/mm3 (3.65-5.03) 11/28/20 09:21 Hgb 12.3 gm/dl (11.8-15.2) 11/28/20 09:21 Hct 37.6 % (35.5-45.6) 11/28/20 09:21 MCV 94 fl (84-94) 11/28/20 09:21 MCH 31 pg (28-32) 11/28/20 09:21 MCHC 33 % (32-34) 11/28/20 09:21 RDW 15.1 % (13.2-15.2) 11/28/20 09:21 Plt Count 369 K/mm3 (140-440) 11/28/20 09:21 Lymph % (Auto) 16.1 % (13.4-35.0) 11/23/20 10:00 Gila % (Auto) 15.0 % (0.0-7.3) H 11/23/20 10:00 Eos % (Auto) 1.0 % (0.0-4.3) 11/23/20 10:00 Baso % (Auto) 0.5 % (0.0-1.8) 11/23/20 10:00 Lymph # (Auto) 1.6 K/mm3 (1.2-5.4) 11/23/20 10:00 Gila # (Auto) 1.5 K/mm3 (0.0-0.8) H 11/23/20 10:00 Eos # (Auto) 0.1 K/mm3 (0.0-0.4) 11/23/20 10:00 Baso # (Auto) 0.1 K/mm3 (0.0-0.1) 11/23/20 10:00 Add Manual Diff Complete 11/25/20 08:18 Total Counted 100 11/25/20 08:18 Seg Neutrophils % Associate Professor Of Pathology 11/25/20 08:18 Seg Neuts % (Manual) 98.0 % (40.0-70.0) H 11/25/20 08:18 Monocytes % (Manual) 2.0 % (0.0-7.3) 11/25/20 08:18 Nucleated RBC % 1.0 % (0.0-0.9) H 11/25/20 08:18 Seg Neutrophils # 6.6 K/mm3 (1.8-7.7) 11/23/20 10:00 Seg Neutrophils # Man 12.9 K/mm3 (1.8-7.7) H 11/25/20 08:18 Band Neutrophils # 0.0 K/mm3 11/25/20 08:18 Lymphocytes # (Manual) 0.0 K/mm3 (1.2-5.4) L 11/25/20 08:18 Abs React Lymphs (Man) 0.0 K/mm3 11/25/20 08:18 Monocytes # (Manual) 0.3 K/mm3 (0.0-0.8) 11/25/20 08:18 Eosinophils # (Manual) 0.0 K/mm3 (0.0-0.4) 11/25/20 08:18 Basophils # (Manual) 0.0 K/mm3 (0.0-0.1) 11/25/20 08:18 Metamyelocytes # 0.0 K/mm3 11/25/20 08:18 Myelocytes # 0.0 K/mm3 11/25/20 08:18 Promyelocytes # 43.8 K/mm3 11/25/20 08:18 Blast Cells # 0.0 K/mm3 11/25/20 08:18 WBC Morphology Not Reportable 11/25/20 08:18 Hypersegmented Neuts Not Reportable 11/25/20 08:18 Hyposegmented Neuts Not Reportable 11/25/20 08:18 Hypogranular Neuts Not Reportable 11/25/20 08:18 Smudge Cells Not Reportable 11/25/20 08:18 Toxic Granulation Few 11/25/20 08:18 Toxic Vacuolation Not Reportable 11/25/20 08:18 Dohle Bodies Not Reportable 11/25/20 08:18 Pelger-Huet Anomaly Not Reportable 11/25/20 08:18 Liang Rods Not Reportable 11/25/20 08:18 Platelet Estimate Consistent w auto 11/25/20 08:18 Clumped Platelets Not Reportable 11/25/20 08:18 Plt Clumps, EDTA Not Reportable 11/25/20 08:18 Large Platelets Not Reportable 11/25/20 08:18 Giant Platelets Not Reportable 11/25/20 08:18 Platelet Satelliting Not Reportable 11/25/20 08:18 Plt Morphology Comment Not Reportable 11/25/20 08:18 RBC Morphology Not Reportable 11/25/20 08:18 Dimorphic RBCs Not Reportable 11/25/20 08:18 Polychromasia Not Reportable 11/25/20 08:18 Hypochromasia 1+ 11/25/20 08:18 Poikilocytosis Not Reportable 11/25/20 08:18 Anisocytosis Not Reportable 11/25/20 08:18 Microcytosis Not Reportable 11/25/20 08:18 Macrocytosis Not Reportable 11/25/20 08:18 Spherocytes Not Reportable 11/25/20 08:18 Pappenheimer Bodies Not Reportable 11/25/20 08:18 Sickle Cells Not Reportable 11/25/20 08:18 Target Cells 1+ 11/25/20 08:18 Tear Drop Cells Not Reportable 11/25/20 08:18 Ovalocytes Not Reportable 11/25/20 08:18 Helmet Cells Not Reportable 11/25/20 08:18 [place] Bodies Not Reportable 11/25/20 08:18 [place] Rings Not Reportable 11/25/20 08:18 Dodson Cells Not Reportable 11/25/20 08:18 Bite Cells Not Reportable 11/25/20 08:18 Crenated Cell Not Reportable 11/25/20 08:18 Elliptocytes Not Reportable 11/25/20 08:18 Acanthocytes (Spur) Not Reportable 11/25/20 08:18 Rouleaux Not Reportable 11/25/20 08:18 Hemoglobin C Crystals Not Reportable 11/25/20 08:18 Schistocytes Not Reportable 11/25/20 08:18 Malaria parasites Not Reportable 11/25/20 08:18 Fuad Bodies Not Reportable 11/25/20 08:18 Hem Pathologist Commnt No 11/25/20 08:18 PT 13.5 Sec. (12.2-14.9) 11/21/20 20:50 INR 0.98 (0.87-1.13) 11/21/20 20:50 APTT 32.1 Sec. (24.2-36.6) 11/21/20 20:50 ABG pH 7.281 (7.320-7.450) L 11/24/20 01:48 POC ABG pCO2 58.4 mmHg (32.0-48.0) H 11/24/20 01:48 POC ABG pO2 98.1 mmHg (83-108) 11/24/20 01:48 POC ABG HCO3 26.9 11/24/20 01:48 ABG O2 Saturation 96.9 (0-100) 11/24/20 01:48 POC ABG Base Excess -0.7 11/24/20 01:48 ABG Hemoglobin 11.8 (12.0-17.5) L 11/24/20 01:48 ABG Oxyhemoglobin 95.9 (94-98) 11/24/20 01:48 ABG Methemoglobin 0.3 (0.0-1.5) 11/24/20 01:48 ABG Sodium 140.6 mmol/L (136.0-145.0) 11/24/20 01:48 ABG Potassium 3.9 mmol/L (3.40-4.50) 11/24/20 01:48 ABG Chloride 104.0 mmol/L (98-107) 11/24/20 01:48 ABG Glucose 101 mg/dL (65-95) H 11/24/20 01:48 Carboxyhemoglobin 0.7 (0.5-1.5) 11/24/20 01:48 FiO2 % 50.0 11/24/20 01:48 Sodium 138 mmol/L (137-145) 12/10/20 14:53 Potassium 3.8 mmol/L (3.6-5.0) D 12/10/20 14:53 Chloride 91.9 mmol/L (98-107) L 12/10/20 14:53 Carbon Dioxide 39 mmol/L (22-30) H 12/10/20 14:53 Anion Gap 11 mmol/L 12/10/20 14:53 BUN 46 mg/dL (9-20) H 12/10/20 14:53 Creatinine 1.1 mg/dL (0.8-1.3) 12/10/20 14:53 Estimated GFR > 60 ml/min 12/10/20 14:53 BUN/Creatinine Ratio 42 % 12/10/20 14:53 Glucose 141 mg/dL (75-100) H 12/10/20 14:53 POC Glucose 135 mg/dL (70-105) H 12/04/20 17:21 Lactic Acid 0.60 mmol/L (0.7-2.0) L 11/24/20 09:58 Calcium 8.7 mg/dL (8.4-10.2) 12/10/20 14:53 Phosphorus 3.80 mg/dL (2.5-4.5) 12/10/20 14:53 Magnesium 2.00 mg/dL (1.7-2.3) 12/10/20 14:53 Total Bilirubin 0.30 mg/dL (0.1-1.2) 11/26/20 06:22 AST 18 units/L (5-40) 11/26/20 06:22 ALT 22 units/L (7-56) 11/26/20 06:22 Alkaline Phosphatase 55 units/L (35-129) 11/26/20 06:22 Total Creatine Kinase 132 units/L (55-170) 11/22/20 10:20 CK-MB (CK-2) 3.3 ng/mL (0.0-4.0) 11/22/20 10:20 CK-MB (CK-2) Rel Index 2.5 (0-4) 11/22/20 10:20 Troponin T 0.021 ng/mL (0.00-0.029) 11/29/20 04:43 NT-Pro-B Natriuret Pep 4253 pg/mL (0-900) H 12/09/20 08:43 Serum Total Protein 5.3 g/dL (6.1-8.1) L 11/23/20 10:00 Total Protein 6.2 g/dL (6.3-8.2) L 11/26/20 06:22 Albumin 3.1 g/dL (3.9-5) L 11/26/20 06:22 Albumin/Globulin Ratio 1.0 % 11/26/20 06:22 Cjpib-2-Wemtmwzyh 0.4 g/dL (0.2-0.3) H 11/23/20 10:00 Yrcpb-7-Cppmusnxd 0.8 g/dL (0.5-0.9) 11/23/20 10:00 Beta Globulins 0.3 g/dL (0.2-0.5) 11/23/20 10:00 Gamma Globulins 0.7 g/dL (0.8-1.7) L 11/23/20 10:00 Abnorm Protein Band 1 see below 11/23/20 10:00 PEP Interpretation see below H 11/23/20 10:00 Triglycerides 84 mg/dL (2-149) 11/21/20 20:50 Cholesterol 125 mg/dL (50-199) 11/21/20 20:50 LDL Cholesterol Direct 57 mg/dL (50-130) 11/21/20 20:50 HDL Cholesterol 60 mg/dL (40-59) H 11/21/20 20:50 Cholesterol/HDL Ratio 2.08 % 11/21/20 20:50 TSH 1.290 mlU/mL (0.270-4.200) 11/21/20 20:50 Free T4 1.18 ng/dL (0.76-1.46) 11/21/20 20:50 Arterial Blood Glucose 101 mg/dL (65-95) H 11/24/20 01:48 Arterial Blood Ionized Calcium 4.7 mg/dL (4.6-5.3) 11/24/20 01:48 Urine Color Yellow (Yellow) 11/22/20 05:00 Urine Turbidity Slightly-cloudy (Clear) 11/22/20 05:00 Urine pH 5.0 (5.0-7.0) 11/22/20 05:00 Ur Specific [place] 1.016 (1.003-1.030) 11/22/20 05:00 Urine Protein 30 mg/dl mg/dL (Negative) 11/22/20 05:00 Urine Glucose (UA) Neg mg/dL (Negative) 11/22/20 05:00 Urine Ketones Neg mg/dL (Negative) 11/22/20 05:00 Urine Blood Lg (Negative) 11/22/20 05:00 Urine Nitrite Neg (Negative) 11/22/20 05:00 Urine Bilirubin Neg (Negative) 11/22/20 05:00 Urine Urobilinogen < 2.0 mg/dL (<2.0) 11/22/20 05:00 Ur Leukocyte Esterase Tr (Negative) 11/22/20 05:00 Urine WBC (Auto) 33.0 /HPF (0.0-6.0) H 11/22/20 05:00 Urine RBC (Auto) 49.0 /HPF (0.0-6.0) 11/22/20 05:00 U Epithel Cells (Auto) 1.0 /HPF (0-13.0) 11/22/20 05:00 Hyaline Casts 4 /LPF 11/22/20 05:00 Urine Mucus 1+ /HPF 11/22/20 05:00 Urine Eosinophils None seen (None Seen) 11/24/20 17:55 Urine Creatinine 158.2 mg/dL (0.1-20.0) H 11/22/20 00:11 Urine Sodium 39 mmol/L 11/22/20 00:11 Fraction Sodium Excret 0.3 11/22/20 00:11 Urine Opiates Screen Presumptive negative 11/22/20 00:11 Urine Methadone Screen Presumptive negative 11/22/20 00:11 Ur Barbiturates Screen Presumptive negative 11/22/20 00:11 Ur Phencyclidine Scrn Presumptive negative 11/22/20 00:11 Ur Amphetamines Screen Presumptive negative 11/22/20 00:11 U Benzodiazepines Scrn Presumptive negative 11/22/20 00:11 Urine Cocaine Screen Presumptive negative 11/22/20 00:11 U Marijuana (THC) Screen Presumptive negative 11/22/20 00:11 Drugs of Abuse Note Disclamer 11/22/20 00:11 Plasma/Serum Alcohol < 0.01 % (0-0.07) 11/21/20 20:50 Proteinase 3 (PR3) Ab <1.0 AI (<1.0) 11/22/20 16:00 Myeloperoxidase Ab <1.0 AI (<1.0) 11/22/20 16:00 Double Strand DNA Ab 1 IU/mL (<=4) 11/22/20 16:00 Complement C3 93 mg/dL () 11/22/20 16:00 Complement C4 25 mg/dL () 11/22/20 16:00 Coronavirus (PCR) Negative (Negative) 11/23/20 09:30 Hepatitis A IgM Ab Non-reactive (NonReactive) 11/22/20 16:00 Hep Bs Antigen Non-reactive (Negative) 11/22/20 16:00 Hep B Core IgM Ab Non-reactive (NonReactive) 11/22/20 16:00 Hepatitis C Antibody Reactive (NonReactive) A 11/22/20 16:00 Paulson/IV: Voiding Method Condom Catheter Active Medications - Current Medications Current Medications: Generic Name Dose Route Start Last Admin Trade Name Freq PRN Reason Stop Dose Admin Acetaminophen 650 mg 11/23/20 15:29 12/02/20 14:30 Acetaminophen 325 Mg Tab PO 650 mg Q4H PRN Administration Pain, Mild (1-3) Albuterol 2.5 mg 11/22/20 01:19 Albuterol 2.5 Mg/3 Ml Nebu IH Q4HRT PRN Shortness Of Breath Albuterol/Ipratropium 1 ampul 12/11/20 08:00 Ipratropium/Albuterol Sulfate 3 Ml Ampul.Neb IH TIDRT TERESA Lipase/Protease/Amylase 1 each 11/22/20 09:07 Lipase 10,500/Protease 25,000/Amylase 43,750 (Units) Dr Ger SAHATUBE PRN PRN For Clogged Feeding Tube Aspirin 81 mg 11/23/20 10:00 12/10/20 11:02 Aspirin 81 Mg Tab Chew PO 81 mg QDAY TERESA Administration Atorvastatin Calcium 40 mg 11/22/20 22:00 12/10/20 22:06 Atorvastatin 40 Mg Tab PO 40 mg QHS TERESA Administration Budesonide 0.5 mg 11/24/20 14:55 12/10/20 19:41 Budesonide 0.5 Mg/2 Ml Nebu IH 0.5 mg Q12HRT TERESA Administration Carvedilol 12.5 mg 12/03/20 22:00 12/10/20 22:06 Carvedilol 12.5 Mg Tab PO 12.5 mg BID TERESA Administration Heparin Sodium (Porcine) 5,000 unit 11/22/20 06:00 12/11/20 05:57 Heparin 5,000 Unit/1 Ml Vial SUB-Q 5,000 unit Q8HR TERESA Administration Hydralazine HCl 10 mg 11/22/20 01:24 12/09/20 05:44 Hydralazine 20 Mg/1 Ml Inj IV 10 mg Q6H PRN Administration Blood Pressure Lansoprazole 30 mg 11/28/20 10:00 12/10/20 11:02 Lansoprazole 30 Mg Solutab FEEDTUBE 30 mg QDAY TERESA Administration Methylprednisolone Sodium Succinate 60 mg 12/08/20 12:00 12/11/20 05:57 Methylprednisolone Sod Succinate 125 Mg/2 Ml Inj IV 60 mg Q6HR TERESA Administration Nitroglycerin 0.4 mg 11/22/20 01:25 12/06/20 05:22 Nitroglycerin 0.4 Mg Tab Subl SL 0.4 mg Q5M PRN Administration Chest Pain Ondansetron HCl 4 mg 11/22/20 01:19 Ondansetron 4 Mg/2 Ml Inj IV Q8H PRN Nausea And Vomiting Quetiapine Fumarate 25 mg 11/27/20 12:00 12/10/20 22:06 Quetiapine 25 Mg Tab PO 25 mg BID TERESA Administration Senna/Docusate Sodium 1 tab 11/22/20 10:00 12/10/20 22:06 Sennosides/Docusate Sodium 8.6/50 Mg Tab FEEDTUBE 1 tab BID TERESA Administration Simple Syrup 15 ml 11/22/20 09:07 Simple Syrup 15 Ml FEEDTUBE PRN PRN Hypoglycemia Simple Syrup 30 ml 11/22/20 09:07 Simple Syrup 15 Ml FEEDTUBE PRN PRN Hypoglycemia Sodium Bicarbonate 325 mg 11/22/20 09:07 Sodium Bicarbonate 325 Mg Tab FEEDTUBE PRN PRN For Clogged Feeding Tube Sodium Chloride 10 ml 11/22/20 10:00 12/10/20 22:13 Sodium Chloride 0.9% 10 Ml Flush Syringe IV 10 ml BID TERESA Administration Sodium Chloride 10 ml 11/22/20 01:19 Sodium Chloride 0.9% 10 Ml Flush Syringe IV PRN PRN LINE FLUSH Tamsulosin HCl 0.4 mg 11/22/20 10:00 12/10/20 11:02 Tamsulosin 0.4 Mg Cap PO 0.4 mg DAILY TERESA Administration Nutrition/Malnutrition Assess - Dietary Evaluation Nutrition/Malnutrition Findings: Nutrition Notes Start: 11/22/20 08:53 Freq: Status: Active Protocol: Document 12/08/20 15:43 NHALL (Rec: 12/08/20 15:46 NHALL [email or web address]) Nutrition Notes Initial or Follow up Brief Note Current Diet Mech soft Subjective/Other Information Per RN, pt does not eat very much (even though family brings foods from home). Pt requires high-flow oxygen via NC; awaiting placement. Nutrition Intervention Follow-Up By: 12/11/20 Additional Comments F/U: intakes, POC
[2020-12-11] MEDS: IPRATROPIUM/ALBUTEROL SULFATE 3 ML AMPUL.NEB IH SCH ×3 (09:16→21:17)
[2020-12-11] MEDS: BUDESONIDE 0.5 MG/2 ML NEBU IH SCH ×2 (09:16→21:17)
[2020-12-11] MEDS: ASPIRIN 81 MG TAB CHEW PO SCH (09:39)
[2020-12-11] MEDS: carvediloL 12.5 MG TAB PO SCH ×2 (09:39→21:42)
[2020-12-11] MEDS: TAMSULOSIN 0.4 MG CAP PO SCH (09:39)
[2020-12-11] MEDS: SENNOSIDES/DOCUSATE SODIUM 8.6/50 MG TAB FEEDTUBE SCH ×2 (09:40→21:42)
[2020-12-11] MEDS: LANSOPRAZOLE 30 MG SOLUTAB FEEDTUBE SCH (09:40)
[2020-12-11] MEDS: QUEtiapine 25 MG TAB PO SCH ×2 (09:40→21:43)
--- NOTE | 2020-12-11 09:53 | Progress Note ---
Assessment and Plan 85 y/o bhutanese male admitted with acute hypoxic respiratory failure. 12/11/20: Lasix again today. Labs stable on yesterday. Continues to have desats at night. Hesistant to order positive pressure at night as this could make the patient more agitated and worsen oxygenation but may consider if the same thing happens again tonight. Follow up with CM on LTACH as he definitely needs it. Will continue to follow. Guarded prognosis. 12/10/20: BNP elevated, lasix again today. Ordered labs for this am, will review once back. May need to increase night time seroquel as night nurse documented patient taking off cannula constantly but easy redirection. Appeal done by CM. Continue High dose steroids. Guarded prognosis. 12/09/20: Continue High Dose IV steroids. Follow up BNP. Today will give lasix 40mg IV x1. Please ask CM to appeal LTACH denial as patient will need it. After speaking with RT, patient becomes very agitated and frustrated secondary to language barrier and will remove supplemental O2 requiring him to be put on higher numbers to recover. Suggest using language line more often or calling daughter who is in the medical profession and speaks very good peruvian. Will continue to follow. 12/08/20: with change in oxygen requirement, will place back on IV steroids. Will order labs including BNP today and give lasix 20mg IV x1. Initial LTACH request was denied, suggest having CM appeal it now that patient is back on HFNC. Will continue to follow. 12/06/20: Steroid taper as follows: 60 daily for 5 days, 40 daily for 5 days, 20 daily for 5 days, 10 daily for 5 days. Resume whatever home regimen patient was on at home. Wean Oxygen for sats >88%, likely patient will be fine on 2-3 liters, does not need 4. Will sign off. Call if questions. 12/05/20: Change to oral steroids starting tomorrow with prolonged taper. Likely dischargeable over the weekend. 12/04/20: LTACH denied. Continue to wean. Continue IV steroids. 12/03/20: Follow up with CM in regards to LTACH. Continue IV steroids. Wean FiO2 as tolerated. PT/OT if not already evaluated. Patient stable enough to transfer to floor. 12/02/20: CM still waiting to hear back from LTACH in regards to auth. Continue to wean FiO2 as tolerated for sats >88%. Continue IV steroids. 12/01/20: Wean HFNC for sats >88%. Spoke with CM about checking on LTACH but patient may be able to be weaned further now while in house. Will speak with RT about this. If placed on salter, may need to consider transfer to medical/surgical floor with remote tele. 11/28/20: Continue to wean HFNC. Agree with holding Precedex, can increase seroq uel if needed to help with mood. Hopeful that over the weekend will be down to nasal cannula and can transfer to the floor. CM working on LTACH evaluation. Patient is stable for transfer, if and when accepted. 11/27/20: Will transfer to step down today. Agree with bedside swallow eval now that patient is more awake. Will try bID seroquel to help with mood and agitation. Hopeful Cr has stablized. Continue steroids at 40q8. Consider LTACH evaluation 11/26/20: 11/25/20: Continue bipap for right now. Added precedex and stopped ativan as this may be worsening agitation. Ok with haldol use. Continue daily diuretics to keep patient net negative. Continue ICU monitoring for now. Renal function is better. Guarded prognosis. 11/23/20: Wean sedation to off. If patient can tolerate being off sedation, will attempt PSV trial, otherwise, will likely have to just stop sedation and extub ate, will have bipap ready for as needed purposes. Needs chemistry to assess renal function. Out put was good. 1. Repeat ABG later this afternoon and wean FIO2 according (>88%) 2. Stop sedation, need to assess mental state 3. Follow up renal function and urine output. 4. Guarded prognosis, this is likely acute on chronic respiratory failure. cct 31 minutes. Subjective Date of service: 12/11/20 Principal diagnosis: Acute respiratory failure Interval history: Down to 70%. Good sats. Weaning continues. Tolerating lasix and labs stable. Has a bed offer from [facility] Objective Vital Signs - 12hr 12/10/20 12/10/20 12/10/20 22:00 22:06 22:11 Temperature Pulse Rate 82 74 Respiratory 20 Rate Respiratory 20 Rate [ Generalized] Blood Pressure 150/62 O2 Sat by Pulse 99 Oximetry 12/11/20 12/11/20 12/11/20 02:12 04:43 08:14 Temperature 97.5 F L 97.2 F L Pulse Rate 65 69 Respiratory 18 20 Rate Respiratory Rate [ Generalized] Blood Pressure 144/66 164/75 O2 Sat by Pulse 99 100 98 Oximetry Constitutional: no acute distress, alert Eyes: non-icteric ENT: oropharynx moist Neck: supple, other (large in circumference) Effort: normal Ascultation: Bilateral: clear, diminished breath sounds, wheezes Percussion: Bilateral: not dull Cardiovascular: other (tachy, no mrg) Gastrointestinal: normoactive bowel sounds, soft, non-tender, non-distended Extremities: no cyanosis, no edema, pink and warm Neurologic: normal mental status, non-focal exam, pupils equal and round Psychiatric: mood appropriate, affect normal CBC and BMP: 11/28/20 09:21 12/10/20 14:53 ABG, PT/INR, D-dimer: ABG ABG pH 7.281 (7.320-7.450) L 11/24/20 01:48 POC ABG pCO2 58.4 mmHg (32.0-48.0) H 11/24/20 01:48 POC ABG pO2 98.1 mmHg (83-108) 11/24/20 01:48 POC ABG HCO3 26.9 11/24/20 01:48 ABG O2 Saturation 96.9 (0-100) 11/24/20 01:48 PT/INR, D-dimer PT 13.5 Sec. (12.2-14.9) 11/21/20 20:50 INR 0.98 (0.87-1.13) 11/21/20 20:50 Abnormal lab findings: Abnormal Labs 11/21/20 11/21/20 11/22/20 20:50 20:50 00:11 WBC RBC 3.48 L Hgb 11.1 L Hct 34.3 L MCV 99 H Lymph % (Auto) 6.8 L [place] % (Auto) Lymph # (Auto) 0.6 L [place] # (Auto) Seg Neutrophils % 85.5 H Seg Neuts % (Manual) Nucleated RBC % Seg Neutrophils # Seg Neutrophils # Man Lymphocytes # (Manual) ABG pH POC ABG pCO2 POC ABG pO2 ABG Hemoglobin ABG Sodium ABG Potassium ABG Glucose Carboxyhemoglobin Sodium 130 L Potassium 7.3 H* Chloride 91.1 L Carbon Dioxide BUN 40 H Creatinine 2.1 H Glucose 195 H POC Glucose Lactic Acid Calcium Phosphorus AST 91 H ALT 65 H CK-MB (CK-2) Rel Index 4.1 H Troponin T 0.045 H NT-Pro-B Natriuret Pep 6998 H Serum Total Protein Total Protein Albumin 3.7 L Aqmti-8-Obliijceo Gamma Globulins PEP Interpretation HDL Cholesterol 60 H Arterial Blood Glucose Arterial Blood Ionized Calcium Urine WBC (Auto) Urine Creatinine 158.2 H Hepatitis C Antibody 11/22/20 11/22/20 11/22/20 00:23 00:40 01:37 WBC 14.1 H RBC 3.53 L Hgb 11.0 L Hct 34.1 L MCV 97 H Lymph % (Auto) 12.3 L [place] % (Auto) 14.2 H Lymph # (Auto) [place] # (Auto) 2.0 H Seg Neutrophils % 72.3 H Seg Neuts % (Manual) Nucleated RBC % Seg Neutrophils # 10.2 H Seg Neutrophils # Man Lymphocytes # (Manual) ABG pH POC ABG pCO2 POC ABG pO2 ABG Hemoglobin ABG Sodium ABG Potassium ABG Glucose Carboxyhemoglobin Sodium Potassium 5.1 H D Chloride Carbon Dioxide BUN Creatinine Glucose POC Glucose Lactic Acid 2.10 H* Calcium Phosphorus AST ALT CK-MB (CK-2) Rel Index Troponin T NT-Pro-B Natriuret Pep Serum Total Protein Total Protein Albumin Vvwqr-6-Hzxehblga Gamma Globulins PEP Interpretation HDL Cholesterol Arterial Blood Glucose Arterial Blood Ionized Calcium Urine WBC (Auto) Urine Creatinine Hepatitis C Antibody 11/22/20 11/22/20 11/22/20 01:37 03:20 05:00 WBC RBC Hgb Hct MCV Lymph % (Auto) [place] % (Auto) Lymph # (Auto) [place] # (Auto) Seg Neutrophils % Seg Neuts % (Manual) Nucleated RBC % Seg Neutrophils # Seg Neutrophils # Man Lymphocytes # (Manual) ABG pH POC ABG pCO2 58.4 H POC ABG pO2 ABG Hemoglobin 11.1 L ABG Sodium 135.1 L ABG Potassium 5.0 H ABG Glucose Carboxyhemoglobin Sodium Potassium 5.1 H Chloride Carbon Dioxide 31 H BUN 40 H Creatinine 2.0 H Glucose 49 L POC Glucose Lactic Acid Calcium Phosphorus AST ALT CK-MB (CK-2) Rel Index Troponin T NT-Pro-B Natriuret Pep Serum Total Protein Total Protein Albumin Awnxw-5-Fngwfszya Gamma Globulins PEP Interpretation HDL Cholesterol Arterial Blood Glucose Arterial Blood Ionized Calcium Urine WBC (Auto) 33.0 H Urine Creatinine Hepatitis C Antibody 11/22/20 11/22/20 11/22/20 05:00 05:00 05:00 WBC RBC Hgb Hct MCV Lymph % (Auto) [place] % (Auto) Lymph # (Auto) [place] # (Auto) Seg Neutrophils % Seg Neuts % (Manual) Nucleated RBC % Seg Neutrophils # Seg Neutrophils # Man Lymphocytes # (Manual) ABG pH POC ABG pCO2 POC ABG pO2 ABG Hemoglobin ABG Sodium ABG Potassium ABG Glucose Carboxyhemoglobin Sodium 136 L Potassium Chloride 97.8 L Carbon Dioxide BUN 41 H Creatinine 1.8 H 1.8 H Glucose POC Glucose Lactic Acid Calcium 8.2 L Phosphorus AST ALT CK-MB (CK-2) Rel Index Troponin T 0.065 H D NT-Pro-B Natriuret Pep Serum Total Protein Total Protein Albumin Kjvsk-2-Xiroyjkip Gamma Globulins PEP Interpretation HDL Cholesterol Arterial Blood Glucose Arterial Blood Ionized Calcium Urine WBC (Auto) Urine Creatinine Hepatitis C Antibody 11/22/20 11/22/20 11/22/20 10:20 10:20 15:00 WBC RBC 3.16 L Hgb 10.2 L Hct 29.9 L MCV 95 H Lymph % (Auto) [place] % (Auto) Lymph # (Auto) [place] # (Auto) Seg Neutrophils % Seg Neuts % (Manual) Nucleated RBC % Seg Neutrophils # Seg Neutrophils # Man Lymphocytes # (Manual) ABG pH 7.501 H POC ABG pCO2 POC ABG pO2 ABG Hemoglobin 10.5 L ABG Sodium 134.9 L ABG Potassium ABG Glucose 115 H Carboxyhemoglobin 0.4 L Sodium Potassium Chloride Carbon Dioxide BUN Creatinine Glucose POC Glucose Lactic Acid Calcium Phosphorus AST ALT CK-MB (CK-2) Rel Index Troponin T 0.078 H NT-Pro-B Natriuret Pep Serum Total Protein Total Protein Albumin Yqpba-8-Uabxmiogo Gamma Globulins PEP Interpretation HDL Cholesterol Arterial Blood Glucose 115 H Arterial Blood Ionized Calcium 4.3 L Urine WBC (Auto) Urine Creatinine Hepatitis C Antibody 11/22/20 11/22/20 11/22/20 16:00 17:45 23:21 WBC RBC Hgb Hct MCV Lymph % (Auto) [place] % (Auto) Lymph # (Auto) [place] # (Auto) Seg Neutrophils % Seg Neuts % (Manual) Nucleated RBC % Seg Neutrophils # Seg Neutrophils # Man Lymphocytes # (Manual) ABG pH POC ABG pCO2 POC ABG pO2 ABG Hemoglobin ABG Sodium ABG Potassium ABG Glucose Carboxyhemoglobin Sodium Potassium Chloride Carbon Dioxide BUN Creatinine Glucose POC Glucose 107 H 115 H Lactic Acid Calcium Phosphorus AST ALT CK-MB (CK-2) Rel Index Troponin T NT-Pro-B Natriuret Pep Serum Total Protein Total Protein Albumin Omwrb-2-Vgcgaerua Gamma Globulins PEP Interpretation HDL Cholesterol Arterial Blood Glucose Arterial Blood Ionized Calcium Urine WBC (Auto) Urine Creatinine Hepatitis C Antibody Reactive A 11/23/20 11/23/20 11/23/20 03:03 05:33 10:00 WBC RBC 3.33 L Hgb 10.6 L Hct 32.2 L MCV 97 H Lymph % (Auto) [place] % (Auto) 15.0 H Lymph # (Auto) [place] # (Auto) 1.5 H Seg Neutrophils % Seg Neuts % (Manual) Nucleated RBC % Seg Neutrophils # Seg Neutrophils # Man Lymphocytes # (Manual) ABG pH POC ABG pCO2 POC ABG pO2 115.8 H ABG Hemoglobin 10.1 L ABG Sodium 135.8 L ABG Potassium ABG Glucose 98 H Carboxyhemoglobin 0.4 L Sodium Potassium Chloride Carbon Dioxide BUN Creatinine Glucose POC Glucose 106 H Lactic Acid Calcium Phosphorus AST ALT CK-MB (CK-2) Rel Index Troponin T NT-Pro-B Natriuret Pep Serum Total Protein Total Protein Albumin Xlnct-4-Ktycvprlf Gamma Globulins PEP Interpretation HDL Cholesterol Arterial Blood Glucose 98 H Arterial Blood Ionized Calcium 4.4 L Urine WBC (Auto) Urine Creatinine Hepatitis C Antibody 11/23/20 11/23/20 11/23/20 10:00 10:00 12:12 WBC RBC Hgb Hct MCV Lymph % (Auto) [place] % (Auto) Lymph # (Auto) [place] # (Auto) Seg Neutrophils % Seg Neuts % (Manual) Nucleated RBC % Seg Neutrophils # Seg Neutrophils # Man Lymphocytes # (Manual) ABG pH POC ABG pCO2 POC ABG pO2 ABG Hemoglobin ABG Sodium ABG Potassium ABG Glucose Carboxyhemoglobin Sodium Potassium Chloride Carbon Dioxide BUN 22 H Creatinine Glucose 101 H POC Glucose 119 H Lactic Acid Calcium 7.9 L Phosphorus AST ALT CK-MB (CK-2) Rel Index Troponin T NT-Pro-B Natriuret Pep Serum Total Protein 5.3 L Total Protein 5.5 L Albumin 2.8 L 2.8 L Ggwlq-0-Uufqtbgug 0.4 H Gamma Globulins 0.7 L PEP Interpretation see below H HDL Cholesterol Arterial Blood Glucose Arterial Blood Ionized Calcium Urine WBC (Auto) Urine Creatinine Hepatitis C Antibody 11/23/20 11/23/20 11/24/20 18:21 23:28 01:48 WBC RBC Hgb Hct MCV Lymph % (Auto) [place] % (Auto) Lymph # (Auto) [place] # (Auto) Seg Neutrophils % Seg Neuts % (Manual) Nucleated RBC % Seg Neutrophils # Seg Neutrophils # Man Lymphocytes # (Manual) ABG pH 7.281 L POC ABG pCO2 58.4 H POC ABG pO2 ABG Hemoglobin 11.8 L ABG Sodium ABG Potassium ABG Glucose 101 H Carboxyhemoglobin Sodium Potassium Chloride Carbon Dioxide BUN Creatinine Glucose POC Glucose 106 H 108 H Lactic Acid Calcium Phosphorus AST ALT CK-MB (CK-2) Rel Index Troponin T NT-Pro-B Natriuret Pep Serum Total Protein Total Protein Albumin Wirny-7-Dwdtxssgr Gamma Globulins PEP Interpretation HDL Cholesterol Arterial Blood Glucose 101 H Arterial Blood Ionized Calcium Urine WBC (Auto) Urine Creatinine Hepatitis C Antibody 11/24/20 11/24/20 11/25/20 09:58 09:58 00:29 WBC RBC Hgb Hct MCV Lymph % (Auto) [place] % (Auto) Lymph # (Auto) [place] # (Auto) Seg Neutrophils % Seg Neuts % (Manual) Nucleated RBC % Seg Neutrophils # Seg Neutrophils # Man Lymphocytes # (Manual) ABG pH POC ABG pCO2 POC ABG pO2 ABG Hemoglobin ABG Sodium ABG Potassium ABG Glucose Carboxyhemoglobin Sodium 148 H Potassium Chloride Carbon Dioxide 34 H D BUN Creatinine Glucose POC Glucose 111 H Lactic Acid 0.60 L Calcium Phosphorus AST ALT CK-MB (CK-2) Rel Index Troponin T NT-Pro-B Natriuret Pep Serum Total Protein Total Protein Albumin Meufg-1-Mlaatbcjb Gamma Globulins PEP Interpretation HDL Cholesterol Arterial Blood Glucose Arterial Blood Ionized Calcium Urine WBC (Auto) Urine Creatinine Hepatitis C Antibody 11/25/20 11/25/20 11/25/20 05:48 08:18 08:18 WBC 13.2 H RBC 3.56 L Hgb 10.9 L Hct 34.0 L MCV 96 H Lymph % (Auto) [place] % (Auto) Lymph # (Auto) [place] # (Auto) Seg Neutrophils % Seg Neuts % (Manual) 98.0 H Nucleated RBC % 1.0 H Seg Neutrophils # Seg Neutrophils # Man 12.9 H Lymphocytes # (Manual) 0.0 L ABG pH POC ABG pCO2 POC ABG pO2 ABG Hemoglobin ABG Sodium ABG Potassium ABG Glucose Carboxyhemoglobin Sodium 147 H Potassium Chloride Carbon Dioxide 32 H BUN 26 H Creatinine Glucose 151 H POC Glucose 148 H Lactic Acid Calcium Phosphorus AST ALT CK-MB (CK-2) Rel Index Troponin T NT-Pro-B Natriuret Pep Serum Total Protein Total Protein 6.0 L Albumin 3.7 L Pvyml-2-Zjzwalrcd Gamma Globulins PEP Interpretation HDL Cholesterol Arterial Blood Glucose Arterial Blood Ionized Calcium Urine WBC (Auto) Urine Creatinine Hepatitis C Antibody 11/25/20 11/25/20 11/25/20 11:34 18:03 23:15 WBC RBC Hgb Hct MCV Lymph % (Auto) [place] % (Auto) Lymph # (Auto) [place] # (Auto) Seg Neutrophils % Seg Neuts % (Manual) Nucleated RBC % Seg Neutrophils # Seg Neutrophils # Man Lymphocytes # (Manual) ABG pH POC ABG pCO2 POC ABG pO2 ABG Hemoglobin ABG Sodium ABG Potassium ABG Glucose Carboxyhemoglobin Sodium Potassium Chloride Carbon Dioxide BUN Creatinine Glucose POC Glucose 144 H 147 H 158 H Lactic Acid Calcium Phosphorus AST ALT CK-MB (CK-2) Rel Index Troponin T NT-Pro-B Natriuret Pep Serum Total Protein Total Protein Albumin Wdgzz-1-Kchhoawna Gamma Globulins PEP Interpretation HDL Cholesterol Arterial Blood Glucose Arterial Blood Ionized Calcium Urine WBC (Auto) Urine Creatinine Hepatitis C Antibody 11/26/20 11/26/20 11/26/20 05:07 06:22 06:22 WBC 12.3 H RBC 3.52 L Hgb 11.1 L Hct 33.6 L MCV 95 H Lymph % (Auto) [place] % (Auto) Lymph # (Auto) [place] # (Auto) Seg Neutrophils % Seg Neuts % (Manual) Nucleated RBC % Seg Neutrophils # Seg Neutrophils # Man Lymphocytes # (Manual) ABG pH POC ABG pCO2 POC ABG pO2 ABG Hemoglobin ABG Sodium ABG Potassium ABG Glucose Carboxyhemoglobin Sodium Potassium 3.3 L Chloride 95.8 L Carbon Dioxide 33 H BUN 35 H Creatinine 1.4 H Glucose 185 H POC Glucose 184 H Lactic Acid Calcium Phosphorus AST ALT CK-MB (CK-2) Rel Index Troponin T 0.036 H D NT-Pro-B Natriuret Pep Serum Total Protein Total Protein 6.2 L Albumin 3.1 L Jfxcm-4-Rualewcbv Gamma Globulins PEP Interpretation HDL Cholesterol Arterial Blood Glucose Arterial Blood Ionized Calcium Urine WBC (Auto) Urine Creatinine Hepatitis C Antibody 11/26/20 11/26/20 11/26/20 12:52 17:30 23:14 WBC RBC Hgb Hct MCV Lymph % (Auto) [place] % (Auto) Lymph # (Auto) [place] # (Auto) Seg Neutrophils % Seg Neuts % (Manual) Nucleated RBC % Seg Neutrophils # Seg Neutrophils # Man Lymphocytes # (Manual) ABG pH POC ABG pCO2 POC ABG pO2 ABG Hemoglobin ABG Sodium ABG Potassium ABG Glucose Carboxyhemoglobin Sodium Potassium Chloride Carbon Dioxide BUN Creatinine Glucose POC Glucose 170 H 133 H 149 H Lactic Acid Calcium Phosphorus AST ALT CK-MB (CK-2) Rel Index Troponin T NT-Pro-B Natriuret Pep Serum Total Protein Total Protein Albumin Rtvkh-7-Uvxtzxbsc Gamma Globulins PEP Interpretation HDL Cholesterol Arterial Blood Glucose Arterial Blood Ionized Calcium Urine WBC (Auto) Urine Creatinine Hepatitis C Antibody 11/27/20 11/27/20 11/27/20 05:35 08:03 12:02 WBC RBC Hgb Hct MCV Lymph % (Auto) [place] % (Auto) Lymph # (Auto) [place] # (Auto) Seg Neutrophils % Seg Neuts % (Manual) Nucleated RBC % Seg Neutrophils # Seg Neutrophils # Man Lymphocytes # (Manual) ABG pH POC ABG pCO2 POC ABG pO2 ABG Hemoglobin ABG Sodium ABG Potassium ABG Glucose Carboxyhemoglobin Sodium Potassium Chloride 97.0 L Carbon Dioxide 31 H BUN 41 H Creatinine 1.4 H Glucose 145 H POC Glucose 135 H 139 H Lactic Acid Calcium Phosphorus 2.20 L AST ALT CK-MB (CK-2) Rel Index Troponin T NT-Pro-B Natriuret Pep Serum Total Protein Total Protein Albumin Rguxy-5-Nofekbcxd Gamma Globulins PEP Interpretation HDL Cholesterol Arterial Blood Glucose Arterial Blood Ionized Calcium Urine WBC (Auto) Urine Creatinine Hepatitis C Antibody 11/27/20 11/28/20 11/28/20 18:41 05:26 06:08 WBC RBC Hgb Hct MCV Lymph % (Auto) [place] % (Auto) Lymph # (Auto) [place] # (Auto) Seg Neutrophils % Seg Neuts % (Manual) Nucleated RBC % Seg Neutrophils # Seg Neutrophils # Man Lymphocytes # (Manual) ABG pH POC ABG pCO2 POC ABG pO2 ABG Hemoglobin ABG Sodium ABG Potassium ABG Glucose Carboxyhemoglobin Sodium Potassium Chloride Carbon Dioxide BUN 45 H Creatinine 1.4 H Glucose 135 H POC Glucose 148 H 143 H Lactic Acid Calcium Phosphorus AST ALT CK-MB (CK-2) Rel Index Troponin T NT-Pro-B Natriuret Pep Serum Total Protein Total Protein Albumin Aryul-8-Gbpfnaynb Gamma Globulins PEP Interpretation HDL Cholesterol Arterial Blood Glucose Arterial Blood Ionized Calcium Urine WBC (Auto) Urine Creatinine Hepatitis C Antibody 11/28/20 11/28/20 11/28/20 11:46 17:31 21:17 WBC RBC Hgb Hct MCV Lymph % (Auto) [place] % (Auto) Lymph # (Auto) [place] # (Auto) Seg Neutrophils % Seg Neuts % (Manual) Nucleated RBC % Seg Neutrophils # Seg Neutrophils # Man Lymphocytes # (Manual) ABG pH POC ABG pCO2 POC ABG pO2 ABG Hemoglobin ABG Sodium ABG Potassium ABG Glucose Carboxyhemoglobin Sodium Potassium Chloride Carbon Dioxide BUN Creatinine Glucose POC Glucose 132 H 156 H 122 H Lactic Acid Calcium Phosphorus AST ALT CK-MB (CK-2) Rel Index Troponin T NT-Pro-B Natriuret Pep Serum Total Protein Total Protein Albumin Fuuhq-6-Ergrmleho Gamma Globulins PEP Interpretation HDL Cholesterol Arterial Blood Glucose Arterial Blood Ionized Calcium Urine WBC (Auto) Urine Creatinine Hepatitis C Antibody 11/29/20 11/29/20 11/29/20 00:06 04:43 05:15 WBC RBC Hgb Hct MCV Lymph % (Auto) [place] % (Auto) Lymph # (Auto) [place] # (Auto) Seg Neutrophils % Seg Neuts % (Manual) Nucleated RBC % Seg Neutrophils # Seg Neutrophils # Man Lymphocytes # (Manual) ABG pH POC ABG pCO2 POC ABG pO2 ABG Hemoglobin ABG Sodium ABG Potassium ABG Glucose Carboxyhemoglobin Sodium Potassium Chloride 97.7 L Carbon Dioxide BUN 56 H Creatinine 1.6 H Glucose 132 H POC Glucose 114 H 125 H Lactic Acid Calcium Phosphorus AST ALT CK-MB (CK-2) Rel Index Troponin T NT-Pro-B Natriuret Pep Serum Total Protein Total Protein Albumin Piefs-1-Blbkxvagb Gamma Globulins PEP Interpretation HDL Cholesterol Arterial Blood Glucose Arterial Blood Ionized Calcium Urine WBC (Auto) Urine Creatinine Hepatitis C Antibody 11/29/20 11/29/20 11/30/20 12:09 18:12 04:47 WBC RBC Hgb Hct MCV Lymph % (Auto) [place] % (Auto) Lymph # (Auto) [place] # (Auto) Seg Neutrophils % Seg Neuts % (Manual) Nucleated RBC % Seg Neutrophils # Seg Neutrophils # Man Lymphocytes # (Manual) ABG pH POC ABG pCO2 POC ABG pO2 ABG Hemoglobin ABG Sodium ABG Potassium ABG Glucose Carboxyhemoglobin Sodium Potassium Chloride Carbon Dioxide 31 H BUN 59 H Creatinine 1.6 H Glucose 122 H POC Glucose 142 H 132 H Lactic Acid Calcium Phosphorus AST ALT CK-MB (CK-2) Rel Index Troponin T NT-Pro-B Natriuret Pep Serum Total Protein Total Protein Albumin Bvugd-4-Fuupwbmoe Gamma Globulins PEP Interpretation HDL Cholesterol Arterial Blood Glucose Arterial Blood Ionized Calcium Urine WBC (Auto) Urine Creatinine Hepatitis C Antibody 11/30/20 11/30/20 11/30/20 05:45 11:47 18:16 WBC RBC Hgb Hct MCV Lymph % (Auto) [place] % (Auto) Lymph # (Auto) [place] # (Auto) Seg Neutrophils % Seg Neuts % (Manual) Nucleated RBC % Seg Neutrophils # Seg Neutrophils # Man Lymphocytes # (Manual) ABG pH POC ABG pCO2 POC ABG pO2 ABG Hemoglobin ABG Sodium ABG Potassium ABG Glucose Carboxyhemoglobin Sodium Potassium Chloride Carbon Dioxide BUN Creatinine Glucose POC Glucose 118 H 123 H 126 H Lactic Acid Calcium Phosphorus AST ALT CK-MB (CK-2) Rel Index Troponin T NT-Pro-B Natriuret Pep Serum Total Protein Total Protein Albumin Ivvlf-0-Lyigxwvgg Gamma Globulins PEP Interpretation HDL Cholesterol Arterial Blood Glucose Arterial Blood Ionized Calcium Urine WBC (Auto) Urine Creatinine Hepatitis C Antibody 12/01/20 12/01/20 12/01/20 00:11 04:57 05:41 WBC RBC Hgb Hct MCV Lymph % (Auto) [place] % (Auto) Lymph # (Auto) [place] # (Auto) Seg Neutrophils % Seg Neuts % (Manual) Nucleated RBC % Seg Neutrophils # Seg Neutrophils # Man Lymphocytes # (Manual) ABG pH POC ABG pCO2 POC ABG pO2 ABG Hemoglobin ABG Sodium ABG Potassium ABG Glucose Carboxyhemoglobin Sodium Potassium Chloride Carbon Dioxide BUN 52 H Creatinine 1.4 H Glucose 121 H POC Glucose 117 H 120 H Lactic Acid Calcium Phosphorus AST ALT CK-MB (CK-2) Rel Index Troponin T NT-Pro-B Natriuret Pep Serum Total Protein Total Protein Albumin Setqu-6-Yhabtwgwj Gamma Globulins PEP Interpretation HDL Cholesterol Arterial Blood Glucose Arterial Blood Ionized Calcium Urine WBC (Auto) Urine Creatinine Hepatitis C Antibody 12/01/20 12/02/20 12/02/20 23:35 06:02 08:09 WBC RBC Hgb Hct MCV Lymph % (Auto) [place] % (Auto) Lymph # (Auto) [place] # (Auto) Seg Neutrophils % Seg Neuts % (Manual) Nucleated RBC % Seg Neutrophils # Seg Neutrophils # Man Lymphocytes # (Manual) ABG pH POC ABG pCO2 POC ABG pO2 ABG Hemoglobin ABG Sodium ABG Potassium ABG Glucose Carboxyhemoglobin Sodium Potassium Chloride Carbon Dioxide BUN Creatinine Glucose POC Glucose 117 H 108 H 117 H Lactic Acid Calcium Phosphorus AST ALT CK-MB (CK-2) Rel Index Troponin T NT-Pro-B Natriuret Pep Serum Total Protein Total Protein Albumin Knpqo-8-Tfluqlwea Gamma Globulins PEP Interpretation HDL Cholesterol Arterial Blood Glucose Arterial Blood Ionized Calcium Urine WBC (Auto) Urine Creatinine Hepatitis C Antibody 12/02/20 12/02/20 12/02/20 09:40 11:33 17:34 WBC RBC Hgb Hct MCV Lymph % (Auto) [place] % (Auto) Lymph # (Auto) [place] # (Auto) Seg Neutrophils % Seg Neuts % (Manual) Nucleated RBC % Seg Neutrophils # Seg Neutrophils # Man Lymphocytes # (Manual) ABG pH POC ABG pCO2 POC ABG pO2 ABG Hemoglobin ABG Sodium ABG Potassium ABG Glucose Carboxyhemoglobin Sodium Potassium Chloride 97.6 L Carbon Dioxide 35 H BUN 45 H Creatinine Glucose POC Glucose 109 H 124 H Lactic Acid Calcium Phosphorus AST ALT CK-MB (CK-2) Rel Index Troponin T NT-Pro-B Natriuret Pep Serum Total Protein Total Protein Albumin Hmfxr-4-Qkdytiaze Gamma Globulins PEP Interpretation HDL Cholesterol Arterial Blood Glucose Arterial Blood Ionized Calcium Urine WBC (Auto) Urine Creatinine Hepatitis C Antibody 12/03/20 12/03/20 12/03/20 05:40 07:16 16:46 WBC RBC Hgb Hct MCV Lymph % (Auto) [place] % (Auto) Lymph # (Auto) [place] # (Auto) Seg Neutrophils % Seg Neuts % (Manual) Nucleated RBC % Seg Neutrophils # Seg Neutrophils # Man Lymphocytes # (Manual) ABG pH POC ABG pCO2 POC ABG pO2 ABG Hemoglobin ABG Sodium ABG Potassium ABG Glucose Carboxyhemoglobin Sodium Potassium Chloride Carbon Dioxide BUN 44 H Creatinine Glucose 117 H POC Glucose 115 H 106 H Lactic Acid Calcium Phosphorus AST ALT CK-MB (CK-2) Rel Index Troponin T NT-Pro-B Natriuret Pep Serum Total Protein Total Protein Albumin Ovbnt-7-Kmkxczrnu Gamma Globulins PEP Interpretation HDL Cholesterol Arterial Blood Glucose Arterial Blood Ionized Calcium Urine WBC (Auto) Urine Creatinine Hepatitis C Antibody 12/03/20 12/04/20 12/04/20 21:55 07:53 11:43 WBC RBC Hgb Hct MCV Lymph % (Auto) [place] % (Auto) Lymph # (Auto) [place] # (Auto) Seg Neutrophils % Seg Neuts % (Manual) Nucleated RBC % Seg Neutrophils # Seg Neutrophils # Man Lymphocytes # (Manual) ABG pH POC ABG pCO2 POC ABG pO2 ABG Hemoglobin ABG Sodium ABG Potassium ABG Glucose Carboxyhemoglobin Sodium Potassium Chloride Carbon Dioxide BUN Creatinine Glucose POC Glucose 113 H 110 H 110 H Lactic Acid Calcium Phosphorus AST ALT CK-MB (CK-2) Rel Index Troponin T NT-Pro-B Natriuret Pep Serum Total Protein Total Protein Albumin Lehvg-7-Qeydxlkty Gamma Globulins PEP Interpretation HDL Cholesterol Arterial Blood Glucose Arterial Blood Ionized Calcium Urine WBC (Auto) Urine Creatinine Hepatitis C Antibody 12/04/20 12/08/20 12/09/20 17:21 09:43 08:43 WBC RBC Hgb Hct MCV Lymph % (Auto) [place] % (Auto) Lymph # (Auto) [place] # (Auto) Seg Neutrophils % Seg Neuts % (Manual) Nucleated RBC % Seg Neutrophils # Seg Neutrophils # Man Lymphocytes # (Manual) ABG pH POC ABG pCO2 POC ABG pO2 ABG Hemoglobin ABG Sodium ABG Potassium ABG Glucose Carboxyhemoglobin Sodium Potassium Chloride 96.2 L Carbon Dioxide 39 H BUN 34 H Creatinine Glucose POC Glucose 135 H Lactic Acid Calcium Phosphorus AST ALT CK-MB (CK-2) Rel Index Troponin T NT-Pro-B Natriuret Pep 4253 H Serum Total Protein Total Protein Albumin Jtenc-5-Szhtwrrsc Gamma Globulins PEP Interpretation HDL Cholesterol Arterial Blood Glucose Arterial Blood Ionized Calcium Urine WBC (Auto) Urine Creatinine Hepatitis C Antibody 12/10/20 14:53 WBC RBC Hgb Hct MCV Lymph % (Auto) [place] % (Auto) Lymph # (Auto) [place] # (Auto) Seg Neutrophils % Seg Neuts % (Manual) Nucleated RBC % Seg Neutrophils # Seg Neutrophils # Man Lymphocytes # (Manual) ABG pH POC ABG pCO2 POC ABG pO2 ABG Hemoglobin ABG Sodium ABG Potassium ABG Glucose Carboxyhemoglobin Sodium Potassium Chloride 91.9 L Carbon Dioxide 39 H BUN 46 H Creatinine Glucose 141 H POC Glucose Lactic Acid Calcium Phosphorus AST ALT CK-MB (CK-2) Rel Index Troponin T NT-Pro-B Natriuret Pep Serum Total Protein Total Protein Albumin Kslck-9-Pffimmuzq Gamma Globulins PEP Interpretation HDL Cholesterol Arterial Blood Glucose Arterial Blood Ionized Calcium Urine WBC (Auto) Urine Creatinine Hepatitis C Antibody
[2020-12-11] MEDS ORDERED: FUROSEMIDE 40 MG/4 ML INJ IV SCH (10:00)
--- NOTE | 2020-12-11 19:58 | Progress Note ---
Assessment and Plan Assessment and plan: Patient continues to require high flow nasal cannula oxygen, 25 L, FiO2 30% Patient is more alert and awake today --Acute hypoxic respiratory failure/Requiring intubation 11/21/2020 s/p extubation 11/23/2020, patient was on noninvasive ventilation Currently on high flow nasal cannula oxygen trended down to 25 L Management per pulmonary, CM processing paperwork for LTAC placement --Uncontrolled hypertension; blood pressures well controlled today Continue current antihypertensives and as needed medications --Acute exacerbation of COPD; Home oxygen dependent. Patient is on 20 L high flow nasal cannula today BiPAP as needed, wean as tolerated Continue nebulizers, tapering dose of IV steroids, supportive care --Acute kidney injury; resolved Due to vasomotor nephropathy Received gentle hydration and supportive care Now ARF resolved, normal renal function, avoid nephrotoxins --Severe pulmonary hypertension; Management per pulmonary, continue supportive care --Acute metabolic encephalopathy 11/21 CT head shows no acute intracranial abnormality, sinus disease Continue supportive care. As per family patient is back to baseline intermittently --NSTEMI type II Presented with [facility] with elevated troponins cardiology patient had a stress test in 2019 which showed no significant ischemia, Echo; EF 50 to 55% severe pulmonary hypertension moderate mitral stenosis may benefit from HECTOR for evaluation of mitral valve when patient is stable Medical management per cardiology --Acute kidney injury; present on admission/resolved Vasomotor nephropathy Now resolved, normal renal function Avoid nephrotoxins, nephrology following --History of bladder cancer; Indwelling Paulson in place, supportive care Continue Flomax --Urinary tract infection; Completed antibiotics total 5 days --Dyslipidemia; Continue statin and low-cholesterol diet --Hypertension; moderate control We will continue current antihypertensives And as needed hydralazine --Hypernatremia ; resolved Patient was hyponatremia on admission ,probably overcorrection Increase oral intake of water/monitor electrolytes --Severe protein calorie malnutrition ; Hypoalbuminemia ,nutrition supplements Nutrition consult and supportive care --Nutrition; cardiac diet as tolerated --DVT prophylaxis; Subcu heparin, SCDs --GI prophylaxis; Continue Prevacid --Full CODE STATUS; PT OT evaluation noted and appreciated Recommend home health PT and OT at discharge Today patient is requiring 15 L nasal cannula oxygen Will wean slowly to 2 to 4 L and plan discharge We will closely monitor the patient and adjust the management as needed Consults and recommendations noted and appreciated Plan of care reviewed with the patient's nurse Patient is critically ill poor prognosis Discussed with family Brief history and daily hospital course: 85-year-old male patient with past medical history of COPD on home oxygen, GERD, hypertension, asthma, hyperlipidemia, vasopressin, bladder cancer admitted for acute hypoxic respiratory failure, intubated on 11/21/2020 managed appropriately evaluated by pulmonary critical subsequently extubated on 11/23/2020, today patient is on high flow nasal cannula oxygen, pulmonary critical, cardiology and nephrology following the patient 11/23: Patient was extubated, currently on BiPAP Mild distress, wean as tolerated 11/25/2020; patient is on BiPAP Mild distress, noncommunicative 11/26/2020; patient is on intermittent BiPAP Currently on high flow nasal cannula oxygen 11/27/2020; patient is more alert and awake Will get swallow screen, if normal start pured diet Transfer the patient to [facility] 11/28/2020; patient is on high flow oxygen slightly better than yesterday Able to tolerate mechanical soft diet when the family comes and helps him DC planning, considering LTAC placement 11/29 Still on HFNC oxygen 11/30 Still on HFNC oxygen 12/01 on 35 liters O2 714/21; patient remains on high flow nasal cannula oxygen requiring 25 L/FiO2 35%/O2 sats 96 Wean as tolerated, awaiting LTAC placement Patient is hemodynamically and clinically stable to be transferred out of [facility] to cardiac telemetry or medical floor with remote telemetry today. 12/04/2020; remains on high flow oxygen 25 L/35%/96% O2 sats Wean as tolerated, pending LTAC placement consider PT OT once patient's respiratory status is stable 12/05/2020; patient feels slightly better more alert and awake Responding to simple questions appropriately, titrated the oxygen Today patient is requiring 3 to 4 L of nasal cannula oxygen Significantly improved from yesterday when he needed 25 L Physical therapy evaluation and treatment, home oxygen evaluation prior to discharge 12/06/2020; patient is requiring 10 L of supplemental oxygen today Wean as tolerated PT OT evaluation recommendations noted, Possible discharge in 1 to 2 days if stable Patient's son Ana Morejon [phone] at the bedside Discussed in detail patient's condition, tests and reports Discharge planning, answered all his questions 12/07/2020; today patient is requiring high flow nasal cannula oxygen, 25 L In mild distress, wean as tolerated to 3 to 4 L nasal cannula DC planning per case management, possible home with home health when patient is medically stable 12/08/2020 today patient is requiring high flow nasal cannula oxygen, but slightly improved patient is at 15 L O2 PT and OT recommend home health PT OT, wean patient off high flow oxygen Titrate to 3 to 4 L nasal cannula, possible discharge in 1 to 2 days if stable And cleared by pulmonary 12/09/2020; patient continues to require high flow nasal cannula oxygen between 15 to 20 L Management per pulmonary. Wean as tolerated I spoke with bilingual Angolan speaking granddaughter at the bedside, answered all her questions 12/10/2020; no change clinically, continues to require 20 to 30 L of high flow nasal cannula oxygen If no improvement we will consider transferring to IMCU or ICU for close observ ation after discussing with pulmonary. 12/11/2020 I spoke to bilingual Angolan speaking patient's son Ana Moreojn [phone] And discussed in detail patient's condition, treatment plan, poor prognosis, plans of Transferring to [facility] when bed is available, and the patient is requiring high flow nasal cannula oxygen He verbalized understanding, full CODE STATUS at this point. Answered all his questions. 12/12/2020; patient is more alert and awake, feels slightly better still remains on high flow oxygen however titrating down Closely monitor, awaiting LTAC placement at [place] , discussed with Angolan- speaking family member at the bedside today Disposition; wean high flow oxygen as tolerated Discharge when patient is stable Follow pulmonary recommendations ; History Interval history: I have seen and examined the patient at the bedside today Patient's chart and medications reviewed Patient is more alert and awake however still requiring high flow nasal cannula oxygen 25 L with FiO2 O2 of 30% O2 sats 100% significantly improved Vital signs noted Hospitalist Physical - Constitutional Vitals: Temp Pulse Resp BP Pulse Ox 97.2 F L 70 18 164/75 97 12/11/20 08:14 12/11/20 15:39 12/11/20 15:39 12/11/20 08:14 12/11/20 14:00 General appearance: Present: mild distress, well-nourished, obese, other (On high flow nasal cannula oxygen, feels slightly better today) - EENT Eyes: Present: PERRL, EOM intact - Neck Neck: Present: supple, normal ROM - Respiratory Respiratory effort: normal Respiratory: bilateral: diminished, negative: rales, rhonchi, wheezing - Cardiovascular Rhythm: regular Heart Sounds: Present: S1 & S2 - Extremities Extremities: no ischemia, No edema - Abdominal General gastrointestinal: soft, non-tender, non-distended, normal bowel sounds - Integumentary Integumentary: Present: clear, warm - Psychiatric Psychiatric: appropriate mood/affect, cooperative, other (Confused at times) - Neurologic Neurologic: CNII-XII intact, moves all extremities HEART Score - HEART Score Troponin: Troponin T 0.021 ng/mL (0.00-0.029) 11/29/20 04:43 Results - Labs CBC & Chem 7: 11/28/20 09:21 12/12/20 12:05 Labs: Laboratory Last Values WBC 9.8 K/mm3 (4.5-11.0) 11/28/20 09:21 RBC 4.01 M/mm3 (3.65-5.03) 11/28/20 09:21 Hgb 12.3 gm/dl (11.8-15.2) 11/28/20 09:21 Hct 37.6 % (35.5-45.6) 11/28/20 09:21 MCV 94 fl (84-94) 11/28/20 09:21 MCH 31 pg (28-32) 11/28/20 09:21 MCHC 33 % (32-34) 11/28/20 09:21 RDW 15.1 % (13.2-15.2) 11/28/20 09:21 Plt Count 369 K/mm3 (140-440) 11/28/20 09:21 Lymph % (Auto) 16.1 % (13.4-35.0) 11/23/20 10:00 [place] % (Auto) 15.0 % (0.0-7.3) H 11/23/20 10:00 Eos % (Auto) 1.0 % (0.0-4.3) 11/23/20 10:00 Baso % (Auto) 0.5 % (0.0-1.8) 11/23/20 10:00 Lymph # (Auto) 1.6 K/mm3 (1.2-5.4) 11/23/20 10:00 [place] # (Auto) 1.5 K/mm3 (0.0-0.8) H 11/23/20 10:00 Eos # (Auto) 0.1 K/mm3 (0.0-0.4) 11/23/20 10:00 Baso # (Auto) 0.1 K/mm3 (0.0-0.1) 11/23/20 10:00 Add Manual Diff Complete 11/25/20 08:18 Total Counted 100 11/25/20 08:18 Seg Neutrophils % Java Security Architect 11/25/20 08:18 Seg Neuts % (Manual) 98.0 % (40.0-70.0) H 11/25/20 08:18 Monocytes % (Manual) 2.0 % (0.0-7.3) 11/25/20 08:18 Nucleated RBC % 1.0 % (0.0-0.9) H 11/25/20 08:18 Seg Neutrophils # 6.6 K/mm3 (1.8-7.7) 11/23/20 10:00 Seg Neutrophils # Man 12.9 K/mm3 (1.8-7.7) H 11/25/20 08:18 Band Neutrophils # 0.0 K/mm3 11/25/20 08:18 Lymphocytes # (Manual) 0.0 K/mm3 (1.2-5.4) L 11/25/20 08:18 Abs React Lymphs (Man) 0.0 K/mm3 11/25/20 08:18 Monocytes # (Manual) 0.3 K/mm3 (0.0-0.8) 11/25/20 08:18 Eosinophils # (Manual) 0.0 K/mm3 (0.0-0.4) 11/25/20 08:18 Basophils # (Manual) 0.0 K/mm3 (0.0-0.1) 11/25/20 08:18 Metamyelocytes # 0.0 K/mm3 11/25/20 08:18 Myelocytes # 0.0 K/mm3 11/25/20 08:18 Promyelocytes # 43.8 K/mm3 11/25/20 08:18 Blast Cells # 0.0 K/mm3 11/25/20 08:18 WBC Morphology Not Reportable 11/25/20 08:18 Hypersegmented Neuts Not Reportable 11/25/20 08:18 Hyposegmented Neuts Not Reportable 11/25/20 08:18 Hypogranular Neuts Not Reportable 11/25/20 08:18 Smudge Cells Not Reportable 11/25/20 08:18 Toxic Granulation Few 11/25/20 08:18 Toxic Vacuolation Not Reportable 11/25/20 08:18 Dohle Bodies Not Reportable 11/25/20 08:18 Pelger-Huet Anomaly Not Reportable 11/25/20 08:18 Liang Rods Not Reportable 11/25/20 08:18 Platelet Estimate Consistent w auto 11/25/20 08:18 Clumped Platelets Not Reportable 11/25/20 08:18 Plt Clumps, EDTA Not Reportable 11/25/20 08:18 Large Platelets Not Reportable 11/25/20 08:18 Giant Platelets Not Reportable 11/25/20 08:18 Platelet Satelliting Not Reportable 11/25/20 08:18 Plt Morphology Comment Not Reportable 11/25/20 08:18 RBC Morphology Not Reportable 11/25/20 08:18 Dimorphic RBCs Not Reportable 11/25/20 08:18 Polychromasia Not Reportable 11/25/20 08:18 Hypochromasia 1+ 11/25/20 08:18 Poikilocytosis Not Reportable 11/25/20 08:18 Anisocytosis Not Reportable 11/25/20 08:18 Microcytosis Not Reportable 11/25/20 08:18 Macrocytosis Not Reportable 11/25/20 08:18 Spherocytes Not Reportable 11/25/20 08:18 Pappenheimer Bodies Not Reportable 11/25/20 08:18 Sickle Cells Not Reportable 11/25/20 08:18 Target Cells 1+ 11/25/20 08:18 Tear Drop Cells Not Reportable 11/25/20 08:18 Ovalocytes Not Reportable 11/25/20 08:18 Helmet Cells Not Reportable 11/25/20 08:18 Miranda-Centrahoma Bodies Not Reportable 11/25/20 08:18 Bruce Rings Not Reportable 11/25/20 08:18 Deep Cells Not Reportable 11/25/20 08:18 Bite Cells Not Reportable 11/25/20 08:18 Crenated Cell Not Reportable 11/25/20 08:18 Elliptocytes Not Reportable 11/25/20 08:18 Acanthocytes (Spur) Not Reportable 11/25/20 08:18 Rouleaux Not Reportable 11/25/20 08:18 Hemoglobin C Crystals Not Reportable 11/25/20 08:18 Schistocytes Not Reportable 11/25/20 08:18 Malaria parasites Not Reportable 11/25/20 08:18 Fuad Bodies Not Reportable 11/25/20 08:18 Hem Pathologist Commnt No 11/25/20 08:18 PT 13.5 Sec. (12.2-14.9) 11/21/20 20:50 INR 0.98 (0.87-1.13) 11/21/20 20:50 APTT 32.1 Sec. (24.2-36.6) 11/21/20 20:50 ABG pH 7.281 (7.320-7.450) L 11/24/20 01:48 POC ABG pCO2 58.4 mmHg (32.0-48.0) H 11/24/20 01:48 POC ABG pO2 98.1 mmHg (83-108) 11/24/20 01:48 POC ABG HCO3 26.9 11/24/20 01:48 ABG O2 Saturation 96.9 (0-100) 11/24/20 01:48 POC ABG Base Excess -0.7 11/24/20 01:48 ABG Hemoglobin 11.8 (12.0-17.5) L 11/24/20 01:48 ABG Oxyhemoglobin 95.9 (94-98) 11/24/20 01:48 ABG Methemoglobin 0.3 (0.0-1.5) 11/24/20 01:48 ABG Sodium 140.6 mmol/L (136.0-145.0) 11/24/20 01:48 ABG Potassium 3.9 mmol/L (3.40-4.50) 11/24/20 01:48 ABG Chloride 104.0 mmol/L (98-107) 11/24/20 01:48 ABG Glucose 101 mg/dL (65-95) H 11/24/20 01:48 Carboxyhemoglobin 0.7 (0.5-1.5) 11/24/20 01:48 FiO2 % 50.0 11/24/20 01:48 Sodium 138 mmol/L (137-145) 12/10/20 14:53 Potassium 3.8 mmol/L (3.6-5.0) D 12/10/20 14:53 Chloride 91.9 mmol/L (98-107) L 12/10/20 14:53 Carbon Dioxide 39 mmol/L (22-30) H 12/10/20 14:53 Anion Gap 11 mmol/L 12/10/20 14:53 BUN 46 mg/dL (9-20) H 12/10/20 14:53 Creatinine 1.1 mg/dL (0.8-1.3) 12/10/20 14:53 Estimated GFR > 60 ml/min 12/10/20 14:53 BUN/Creatinine Ratio 42 % 12/10/20 14:53 Glucose 141 mg/dL (75-100) H 12/10/20 14:53 POC Glucose 135 mg/dL (70-105) H 12/04/20 17:21 Lactic Acid 0.60 mmol/L (0.7-2.0) L 11/24/20 09:58 Calcium 8.7 mg/dL (8.4-10.2) 12/10/20 14:53 Phosphorus 3.80 mg/dL (2.5-4.5) 12/10/20 14:53 Magnesium 2.00 mg/dL (1.7-2.3) 12/10/20 14:53 Total Bilirubin 0.30 mg/dL (0.1-1.2) 11/26/20 06:22 AST 18 units/L (5-40) 11/26/20 06:22 ALT 22 units/L (7-56) 11/26/20 06:22 Alkaline Phosphatase 55 units/L (35-129) 11/26/20 06:22 Total Creatine Kinase 132 units/L (55-170) 11/22/20 10:20 CK-MB (CK-2) 3.3 ng/mL (0.0-4.0) 11/22/20 10:20 CK-MB (CK-2) Rel Index 2.5 (0-4) 11/22/20 10:20 Troponin T 0.021 ng/mL (0.00-0.029) 11/29/20 04:43 NT-Pro-B Natriuret Pep 4253 pg/mL (0-900) H 12/09/20 08:43 Serum Total Protein 5.3 g/dL (6.1-8.1) L 11/23/20 10:00 Total Protein 6.2 g/dL (6.3-8.2) L 11/26/20 06:22 Albumin 3.1 g/dL (3.9-5) L 11/26/20 06:22 Albumin/Globulin Ratio 1.0 % 11/26/20 06:22 Ksuvi-2-Luhcaoqzr 0.4 g/dL (0.2-0.3) H 11/23/20 10:00 Cgkwa-6-Hbjxiszds 0.8 g/dL (0.5-0.9) 11/23/20 10:00 Beta Globulins 0.3 g/dL (0.2-0.5) 11/23/20 10:00 Gamma Globulins 0.7 g/dL (0.8-1.7) L 11/23/20 10:00 Abnorm Protein Band 1 see below 11/23/20 10:00 PEP Interpretation see below H 11/23/20 10:00 Triglycerides 84 mg/dL (2-149) 11/21/20 20:50 Cholesterol 125 mg/dL (50-199) 11/21/20 20:50 LDL Cholesterol Direct 57 mg/dL (50-130) 11/21/20 20:50 HDL Cholesterol 60 mg/dL (40-59) H 11/21/20 20:50 Cholesterol/HDL Ratio 2.08 % 11/21/20 20:50 TSH 1.290 mlU/mL (0.270-4.200) 11/21/20 20:50 Free T4 1.18 ng/dL (0.76-1.46) 11/21/20 20:50 Arterial Blood Glucose 101 mg/dL (65-95) H 11/24/20 01:48 Arterial Blood Ionized Calcium 4.7 mg/dL (4.6-5.3) 11/24/20 01:48 Urine Color Yellow (Yellow) 11/22/20 05:00 Urine Turbidity Slightly-cloudy (Clear) 11/22/20 05:00 Urine pH 5.0 (5.0-7.0) 11/22/20 05:00 Ur Specific [place] 1.016 (1.003-1.030) 11/22/20 05:00 Urine Protein 30 mg/dl mg/dL (Negative) 11/22/20 05:00 Urine Glucose (UA) Neg mg/dL (Negative) 11/22/20 05:00 Urine Ketones Neg mg/dL (Negative) 11/22/20 05:00 Urine Blood Lg (Negative) 11/22/20 05:00 Urine Nitrite Neg (Negative) 11/22/20 05:00 Urine Bilirubin Neg (Negative) 11/22/20 05:00 Urine Urobilinogen < 2.0 mg/dL (<2.0) 11/22/20 05:00 Ur Leukocyte Esterase Tr (Negative) 11/22/20 05:00 Urine WBC (Auto) 33.0 /HPF (0.0-6.0) H 11/22/20 05:00 Urine RBC (Auto) 49.0 /HPF (0.0-6.0) 11/22/20 05:00 U Epithel Cells (Auto) 1.0 /HPF (0-13.0) 11/22/20 05:00 Hyaline Casts 4 /LPF 11/22/20 05:00 Urine Mucus 1+ /HPF 11/22/20 05:00 Urine Eosinophils None seen (None Seen) 11/24/20 17:55 Urine Creatinine 158.2 mg/dL (0.1-20.0) H 11/22/20 00:11 Urine Sodium 39 mmol/L 11/22/20 00:11 Fraction Sodium Excret 0.3 11/22/20 00:11 Urine Opiates Screen Presumptive negative 11/22/20 00:11 Urine Methadone Screen Presumptive negative 11/22/20 00:11 Ur Barbiturates Screen Presumptive negative 11/22/20 00:11 Ur Phencyclidine Scrn Presumptive negative 11/22/20 00:11 Ur Amphetamines Screen Presumptive negative 11/22/20 00:11 U Benzodiazepines Scrn Presumptive negative 11/22/20 00:11 Urine Cocaine Screen Presumptive negative 11/22/20 00:11 U Marijuana (THC) Screen Presumptive negative 11/22/20 00:11 Drugs of Abuse Note Disclamer 11/22/20 00:11 Plasma/Serum Alcohol < 0.01 % (0-0.07) 11/21/20 20:50 Proteinase 3 (PR3) Ab <1.0 AI (<1.0) 11/22/20 16:00 Myeloperoxidase Ab <1.0 AI (<1.0) 11/22/20 16:00 Double Strand DNA Ab 1 IU/mL (<=4) 11/22/20 16:00 Complement C3 93 mg/dL () 11/22/20 16:00 Complement C4 25 mg/dL () 11/22/20 16:00 Coronavirus (PCR) Negative (Negative) 11/23/20 09:30 Hepatitis A IgM Ab Non-reactive (NonReactive) 11/22/20 16:00 Hep Bs Antigen Non-reactive (Negative) 11/22/20 16:00 Hep B Core IgM Ab Non-reactive (NonReactive) 11/22/20 16:00 Hepatitis C Antibody Reactive (NonReactive) A 11/22/20 16:00 Paulson/IV: Voiding Method Condom Catheter Active Medications - Current Medications Current Medications: Generic Name Dose Route Start Last Admin Trade Name Freq PRN Reason Stop Dose Admin Acetaminophen 650 mg 11/23/20 15:29 12/02/20 14:30 Acetaminophen 325 Mg Tab PO 650 mg Q4H PRN Administration Pain, Mild (1-3) Albuterol 2.5 mg 11/22/20 01:19 Albuterol 2.5 Mg/3 Ml Nebu IH Q4HRT PRN Shortness Of Breath Albuterol/Ipratropium 1 ampul 12/11/20 08:00 12/11/20 15:38 Ipratropium/Albuterol Sulfate 3 Ml Ampul.Neb IH 1 ampul TIDRT TERESA Administration Lipase/Protease/Amylase 1 each 11/22/20 09:07 Lipase 10,500/Protease 25,000/Amylase 43,750 (Units) Dr Ger SAHATUBE PRN PRN For Clogged Feeding Tube Aspirin 81 mg 11/23/20 10:00 12/11/20 09:39 Aspirin 81 Mg Tab Chew PO 81 mg QDAY TERESA Administration Atorvastatin Calcium 40 mg 11/22/20 22:00 12/10/20 22:06 Atorvastatin 40 Mg Tab PO 40 mg QHS TERESA Administration Budesonide 0.5 mg 11/24/20 14:55 12/11/20 09:16 Budesonide 0.5 Mg/2 Ml Nebu IH 0.5 mg Q12HRT TERESA Administration Carvedilol 12.5 mg 12/03/20 22:00 12/11/20 09:39 Carvedilol 12.5 Mg Tab PO 12.5 mg BID TERESA Administration Heparin Sodium (Porcine) 5,000 unit 11/22/20 06:00 12/11/20 15:34 Heparin 5,000 Unit/1 Ml Vial SUB-Q 5,000 unit Q8HR TERESA Administration Hydralazine HCl 10 mg 11/22/20 01:24 12/09/20 05:44 Hydralazine 20 Mg/1 Ml Inj IV 10 mg Q6H PRN Administration Blood Pressure Lansoprazole 30 mg 11/28/20 10:00 12/11/20 09:40 Lansoprazole 30 Mg Solutab FEEDTUBE 30 mg QDAY TERESA Administration Methylprednisolone Sodium Succinate 60 mg 12/08/20 12:00 12/11/20 18:25 Methylprednisolone Sod Succinate 125 Mg/2 Ml Inj IV 60 mg Q6HR TERESA Administration Nitroglycerin 0.4 mg 11/22/20 01:25 12/06/20 05:22 Nitroglycerin 0.4 Mg Tab Subl SL 0.4 mg Q5M PRN Administration Chest Pain Ondansetron HCl 4 mg 11/22/20 01:19 Ondansetron 4 Mg/2 Ml Inj IV Q8H PRN Nausea And Vomiting Quetiapine Fumarate 25 mg 11/27/20 12:00 12/11/20 09:40 Quetiapine 25 Mg Tab PO 25 mg BID TERESA Administration Senna/Docusate Sodium 1 tab 11/22/20 10:00 12/11/20 09:40 Sennosides/Docusate Sodium 8.6/50 Mg Tab FEEDTUBE 1 tab BID TERESA Administration Simple Syrup 15 ml 11/22/20 09:07 Simple Syrup 15 Ml FEEDTUBE PRN PRN Hypoglycemia Simple Syrup 30 ml 11/22/20 09:07 Simple Syrup 15 Ml FEEDTUBE PRN PRN Hypoglycemia Sodium Bicarbonate 325 mg 11/22/20 09:07 Sodium Bicarbonate 325 Mg Tab FEEDTUBE PRN PRN For Clogged Feeding Tube Sodium Chloride 10 ml 11/22/20 10:00 12/11/20 09:40 Sodium Chloride 0.9% 10 Ml Flush Syringe IV 10 ml BID TERESA Administration Sodium Chloride 10 ml 11/22/20 01:19 Sodium Chloride 0.9% 10 Ml Flush Syringe IV PRN PRN LINE FLUSH Tamsulosin HCl 0.4 mg 11/22/20 10:00 12/11/20 09:39 Tamsulosin 0.4 Mg Cap PO 0.4 mg DAILY TERESA Administration Nutrition/Malnutrition Assess - Dietary Evaluation Nutrition/Malnutrition Findings: Nutrition Notes Start: 11/22/20 08:53 Freq: Status: Active Protocol: Document 12/11/20 11:03 FREDRICK (Rec: 12/11/20 11:08 [facility] [id number]) Nutrition Notes Initial or Follow up Reassessment Current Diagnosis COPD,Hypertension,Respiratory Failure Other Pertinent Diagnosis Encephalopathy, UTI, pulmonary HTN Current Diet Mech soft Labs/Tests Reviewed Pertinent Medications Lasix Height 5 ft 3 in Weight 72.6 kg [place] Body Weight (kg) 56.36 BMI 28.3 Weight change and time frame wt change noted; 12.4% wt loss x 6 days Weight Status Overweight Subjective/Other Information No PO intakes documented since last assessment. Pt still requires high-flow oxygen via nasal cannula. Burn Absent Trauma Absent #1 Nutrition Diagnosis Inadequate oral intake Diagnosis Progress(for reassessment Continues documentation) Is patient on ventilator? No Is Patient Ambulatory and/or Out of Bed No REE-([facility]-confined to bed) 1519.593 Calculation Used for Recommendations [facility] Additional Notes Pro needs 1-1.2g/k-87g/ day Fluid needs 1ml/kcal Nutrition Intervention Change Diet Order: Continue current diet order Goal #1 PO intake to meet at least 75% energy and pro needs Follow-Up By: 12/16/20 Additional Comments F/U: intakes, POC
[2020-12-12] MEDS: methylPREDNISolone Sod Succinate 125 MG/2 ML INJ IV SCH ×4 (00:39→17:43)
[2020-12-12] MEDS: HEPARIN 5,000 UNIT/1 ML VIAL SUB-Q SCH ×3 (05:21→21:11)
[2020-12-12] MEDS: BUDESONIDE 0.5 MG/2 ML NEBU IH SCH ×2 (07:48→20:28)
[2020-12-12] MEDS: IPRATROPIUM/ALBUTEROL SULFATE 3 ML AMPUL.NEB IH SCH ×3 (07:48→20:28)
[2020-12-12] MEDS ORDERED: FUROSEMIDE 40 MG/4 ML INJ IV NR ×2 (08:54→11:37)
[2020-12-12] MEDS: SENNOSIDES/DOCUSATE SODIUM 8.6/50 MG TAB FEEDTUBE SCH ×2 (09:21→21:10)
[2020-12-12] MEDS: TAMSULOSIN 0.4 MG CAP PO SCH (09:21)
[2020-12-12] MEDS: QUEtiapine 25 MG TAB PO SCH ×2 (09:21→21:10)
[2020-12-12] MEDS: ASPIRIN 81 MG TAB CHEW PO SCH (09:22)
[2020-12-12] MEDS: LANSOPRAZOLE 30 MG SOLUTAB FEEDTUBE SCH (09:22)
[2020-12-12] MEDS: carvediloL 12.5 MG TAB PO SCH ×2 (09:24→21:10)
--- NOTE | 2020-12-12 11:37 | Progress Note ---
Assessment and Plan 85 y/o [place] male admitted with acute hypoxic respiratory failure. 12/12/20: Lasix again today. Ordered labs for today. Continue to wean FiO2 for sats >88%. Follow up with CM. Prognosis still remains guarded but more promising now that oxygen requirement is coming down. 12/11/20: Lasix again today. Labs stable on yesterday. Continues to have desats at night. Hesistant to order positive pressure at night as this could make the patient more agitated and worsen oxygenation but may consider if the same thing happens again tonight. Follow up with CM on LTACH as he definitely needs it. Will continue to follow. Guarded prognosis. 12/10/20: BNP elevated, lasix again today. Ordered labs for this am, will review once back. May need to increase night time seroquel as night nurse documented patient taking off cannula constantly but easy redirection. Appeal done by CM. Continue High dose steroids. Guarded prognosis. 12/09/20: Continue High Dose IV steroids. Follow up BNP. Today will give lasix 40mg IV x1. Please ask CM to appeal LTACH denial as patient will need it. After speaking with RT, patient becomes very agitated and frustrated secondary to language barrier and will remove supplemental O2 requiring him to be put on higher numbers to recover. Suggest using language line more often or calling daughter who is in the medical profession and speaks very good croatian. Will continue to follow. 12/08/20: with change in oxygen requirement, will place back on IV steroids. Will order labs including BNP today and give lasix 20mg IV x1. Initial LTACH request was denied, suggest having CM appeal it now that patient is back on HFNC. Will continue to follow. 12/06/20: Steroid taper as follows: 60 daily for 5 days, 40 daily for 5 days, 20 daily for 5 days, 10 daily for 5 days. Resume whatever home regimen patient was on at home. Wean Oxygen for sats >88%, likely patient will be fine on 2-3 liters, does not need 4. Will sign off. Call if questions. 12/05/20: Change to oral steroids starting tomorrow with prolonged taper. Likely dischargeable over the weekend. 12/04/20: LTACH denied. Continue to wean. Continue IV steroids. 12/03/20: Follow up with CM in regards to LTACH. Continue IV steroids. Wean FiO2 as tolerated. PT/OT if not already evaluated. Patient stable enough to transfer to floor. 12/02/20: CM still waiting to hear back from LTACH in regards to auth. Continue to wean FiO2 as tolerated for sats >88%. Continue IV steroids. 12/01/20: Wean HFNC for sats >88%. Spoke with CM about checking on LTACH but patient may be able to be weaned further now while in house. Will speak with RT about this. If placed on salter, may need to consider transfer to medical/surg ical floor with remote tele. 11/28/20: Continue to wean HFNC. Agree with holding Precedex, can increase seroquel if needed to help with mood. Hopeful that over the weekend will be down to nasal cannula and can transfer to the floor. CM working on LTACH evaluation. Patient is stable for transfer, if and when accepted. 11/27/20: Will transfer to step down today. Agree with bedside swallow eval now that patient is more awake. Will try bID seroquel to help with mood and agitation. Hopeful Cr has stablized. Continue steroids at 40q8. Consider LTACH evaluation 11/26/20: 11/25/20: Continue bipap for right now. Added precedex and stopped ativan as this may be worsening agitation. Ok with haldol use. Continue daily diuretics to keep patient net negative. Continue ICU monitoring for now. Renal function is better. Guarded prognosis. 11/23/20: Wean sedation to off. If patient can tolerate being off sedation, will attempt PSV trial, otherwise, will likely have to just stop sedation and extubate, will have bipap ready for as needed purposes. Needs chemistry to assess renal function. Out put was good. 1. Repeat ABG later this afternoon and wean FIO2 according (>88%) 2. Stop sedation, need to assess mental state 3. Follow up renal function and urine output. 4. Guarded prognosis, this is likely acute on chronic respiratory failure. cct 31 minutes. Subjective Date of service: 12/12/20 Principal diagnosis: Acute respiratory failure Interval history: Down to 30 and 50% with last sat documented at 100. No labs this morning. Vitals are stable. Objective Vital Signs - 12hr 12/12/20 12/12/20 12/12/20 03:27 07:49 08:00 Temperature 97.6 F Pulse Rate 60 Pulse Rate [ 68 Anterior Bilateral Throughout] Pulse Rate [ Apical] Pulse Rate [ From Monitor] Respiratory 18 Rate Respiratory 22 Rate [Anterior Bilateral Throughout] Blood Pressure 167/58 O2 Sat by Pulse 100 100 Oximetry 12/12/20 12/12/20 12/12/20 08:07 08:15 09:24 Temperature 98.9 F Pulse Rate 54 L 54 L Pulse Rate [ Anterior Bilateral Throughout] Pulse Rate [ Apical] Pulse Rate [ From Monitor] Respiratory 20 Rate Respiratory Rate [Anterior Bilateral Throughout] Blood Pressure 143/64 O2 Sat by Pulse 100 100 Oximetry 12/12/20 09:36 Temperature Pulse Rate Pulse Rate [ Anterior Bilateral Throughout] Pulse Rate [ 58 L Apical] Pulse Rate [ 58 L From Monitor] Respiratory 19 Rate Respiratory Rate [Anterior Bilateral Throughout] Blood Pressure O2 Sat by Pulse 99 Oximetry Constitutional: no acute distress, alert Eyes: non-icteric ENT: oropharynx moist Neck: supple, other (large in circumference) Effort: normal Ascultation: Bilateral: clear, diminished breath sounds, wheezes Percussion: Bilateral: not dull Cardiovascular: other (tachy, no mrg) Gastrointestinal: normoactive bowel sounds, soft, non-tender, non-distended Extremities: no cyanosis, no edema, pink and warm Neurologic: normal mental status, non-focal exam, pupils equal and round Psychiatric: mood appropriate, affect normal CBC and BMP: 11/28/20 09:21 12/10/20 14:53 ABG, PT/INR, D-dimer: ABG ABG pH 7.281 (7.320-7.450) L 11/24/20 01:48 POC ABG pCO2 58.4 mmHg (32.0-48.0) H 11/24/20 01:48 POC ABG pO2 98.1 mmHg (83-108) 11/24/20 01:48 POC ABG HCO3 26.9 11/24/20 01:48 ABG O2 Saturation 96.9 (0-100) 11/24/20 01:48 PT/INR, D-dimer PT 13.5 Sec. (12.2-14.9) 11/21/20 20:50 INR 0.98 (0.87-1.13) 11/21/20 20:50 Abnormal lab findings: Abnormal Labs 11/21/20 11/21/20 11/22/20 20:50 20:50 00:11 WBC RBC 3.48 L Hgb 11.1 L Hct 34.3 L MCV 99 H Lymph % (Auto) 6.8 L Crosby % (Auto) Lymph # (Auto) 0.6 L Crosby # (Auto) Seg Neutrophils % 85.5 H Seg Neuts % (Manual) Nucleated RBC % Seg Neutrophils # Seg Neutrophils # Man Lymphocytes # (Manual) ABG pH POC ABG pCO2 POC ABG pO2 ABG Hemoglobin ABG Sodium ABG Potassium ABG Glucose Carboxyhemoglobin Sodium 130 L Potassium 7.3 H* Chloride 91.1 L Carbon Dioxide BUN 40 H Creatinine 2.1 H Glucose 195 H POC Glucose Lactic Acid Calcium Phosphorus AST 91 H ALT 65 H CK-MB (CK-2) Rel Index 4.1 H Troponin T 0.045 H NT-Pro-B Natriuret Pep 6998 H Serum Total Protein Total Protein Albumin 3.7 L Mitoy-4-Falayahnc Gamma Globulins PEP Interpretation HDL Cholesterol 60 H Arterial Blood Glucose Arterial Blood Ionized Calcium Urine WBC (Auto) Urine Creatinine 158.2 H Hepatitis C Antibody 11/22/20 11/22/20 11/22/20 00:23 00:40 01:37 WBC 14.1 H RBC 3.53 L Hgb 11.0 L Hct 34.1 L MCV 97 H Lymph % (Auto) 12.3 L Crosby % (Auto) 14.2 H Lymph # (Auto) Crosby # (Auto) 2.0 H Seg Neutrophils % 72.3 H Seg Neuts % (Manual) Nucleated RBC % Seg Neutrophils # 10.2 H Seg Neutrophils # Man Lymphocytes # (Manual) ABG pH POC ABG pCO2 POC ABG pO2 ABG Hemoglobin ABG Sodium ABG Potassium ABG Glucose Carboxyhemoglobin Sodium Potassium 5.1 H D Chloride Carbon Dioxide BUN Creatinine Glucose POC Glucose Lactic Acid 2.10 H* Calcium Phosphorus AST ALT CK-MB (CK-2) Rel Index Troponin T NT-Pro-B Natriuret Pep Serum Total Protein Total Protein Albumin Wajms-7-Vdumuhrej Gamma Globulins PEP Interpretation HDL Cholesterol Arterial Blood Glucose Arterial Blood Ionized Calcium Urine WBC (Auto) Urine Creatinine Hepatitis C Antibody 11/22/20 11/22/20 11/22/20 01:37 03:20 05:00 WBC RBC Hgb Hct MCV Lymph % (Auto) Crosby % (Auto) Lymph # (Auto) Crosby # (Auto) Seg Neutrophils % Seg Neuts % (Manual) Nucleated RBC % Seg Neutrophils # Seg Neutrophils # Man Lymphocytes # (Manual) ABG pH POC ABG pCO2 58.4 H POC ABG pO2 ABG Hemoglobin 11.1 L ABG Sodium 135.1 L ABG Potassium 5.0 H ABG Glucose Carboxyhemoglobin Sodium Potassium 5.1 H Chloride Carbon Dioxide 31 H BUN 40 H Creatinine 2.0 H Glucose 49 L POC Glucose Lactic Acid Calcium Phosphorus AST ALT CK-MB (CK-2) Rel Index Troponin T NT-Pro-B Natriuret Pep Serum Total Protein Total Protein Albumin Uhmiz-2-Jdgrptdhh Gamma Globulins PEP Interpretation HDL Cholesterol Arterial Blood Glucose Arterial Blood Ionized Calcium Urine WBC (Auto) 33.0 H Urine Creatinine Hepatitis C Antibody 11/22/20 11/22/20 11/22/20 05:00 05:00 05:00 WBC RBC Hgb Hct MCV Lymph % (Auto) Crosby % (Auto) Lymph # (Auto) Crosby # (Auto) Seg Neutrophils % Seg Neuts % (Manual) Nucleated RBC % Seg Neutrophils # Seg Neutrophils # Man Lymphocytes # (Manual) ABG pH POC ABG pCO2 POC ABG pO2 ABG Hemoglobin ABG Sodium ABG Potassium ABG Glucose Carboxyhemoglobin Sodium 136 L Potassium Chloride 97.8 L Carbon Dioxide BUN 41 H Creatinine 1.8 H 1.8 H Glucose POC Glucose Lactic Acid Calcium 8.2 L Phosphorus AST ALT CK-MB (CK-2) Rel Index Troponin T 0.065 H D NT-Pro-B Natriuret Pep Serum Total Protein Total Protein Albumin Mnohd-9-Afnfwgtxk Gamma Globulins PEP Interpretation HDL Cholesterol Arterial Blood Glucose Arterial Blood Ionized Calcium Urine WBC (Auto) Urine Creatinine Hepatitis C Antibody 11/22/20 11/22/20 11/22/20 10:20 10:20 15:00 WBC RBC 3.16 L Hgb 10.2 L Hct 29.9 L MCV 95 H Lymph % (Auto) Crosby % (Auto) Lymph # (Auto) Crosby # (Auto) Seg Neutrophils % Seg Neuts % (Manual) Nucleated RBC % Seg Neutrophils # Seg Neutrophils # Man Lymphocytes # (Manual) ABG pH 7.501 H POC ABG pCO2 POC ABG pO2 ABG Hemoglobin 10.5 L ABG Sodium 134.9 L ABG Potassium ABG Glucose 115 H Carboxyhemoglobin 0.4 L Sodium Potassium Chloride Carbon Dioxide BUN Creatinine Glucose POC Glucose Lactic Acid Calcium Phosphorus AST ALT CK-MB (CK-2) Rel Index Troponin T 0.078 H NT-Pro-B Natriuret Pep Serum Total Protein Total Protein Albumin Ryijv-7-Elkrhouem Gamma Globulins PEP Interpretation HDL Cholesterol Arterial Blood Glucose 115 H Arterial Blood Ionized Calcium 4.3 L Urine WBC (Auto) Urine Creatinine Hepatitis C Antibody 11/22/20 11/22/20 11/22/20 16:00 17:45 23:21 WBC RBC Hgb Hct MCV Lymph % (Auto) Crosby % (Auto) Lymph # (Auto) Crosby # (Auto) Seg Neutrophils % Seg Neuts % (Manual) Nucleated RBC % Seg Neutrophils # Seg Neutrophils # Man Lymphocytes # (Manual) ABG pH POC ABG pCO2 POC ABG pO2 ABG Hemoglobin ABG Sodium ABG Potassium ABG Glucose Carboxyhemoglobin Sodium Potassium Chloride Carbon Dioxide BUN Creatinine Glucose POC Glucose 107 H 115 H Lactic Acid Calcium Phosphorus AST ALT CK-MB (CK-2) Rel Index Troponin T NT-Pro-B Natriuret Pep Serum Total Protein Total Protein Albumin Jwgcy-5-Gnbditawc Gamma Globulins PEP Interpretation HDL Cholesterol Arterial Blood Glucose Arterial Blood Ionized Calcium Urine WBC (Auto) Urine Creatinine Hepatitis C Antibody Reactive A 11/23/20 11/23/20 11/23/20 03:03 05:33 10:00 WBC RBC 3.33 L Hgb 10.6 L Hct 32.2 L MCV 97 H Lymph % (Auto) Crosby % (Auto) 15.0 H Lymph # (Auto) Crosby # (Auto) 1.5 H Seg Neutrophils % Seg Neuts % (Manual) Nucleated RBC % Seg Neutrophils # Seg Neutrophils # Man Lymphocytes # (Manual) ABG pH POC ABG pCO2 POC ABG pO2 115.8 H ABG Hemoglobin 10.1 L ABG Sodium 135.8 L ABG Potassium ABG Glucose 98 H Carboxyhemoglobin 0.4 L Sodium Potassium Chloride Carbon Dioxide BUN Creatinine Glucose POC Glucose 106 H Lactic Acid Calcium Phosphorus AST ALT CK-MB (CK-2) Rel Index Troponin T NT-Pro-B Natriuret Pep Serum Total Protein Total Protein Albumin Zmplk-9-Irxjzxbhj Gamma Globulins PEP Interpretation HDL Cholesterol Arterial Blood Glucose 98 H Arterial Blood Ionized Calcium 4.4 L Urine WBC (Auto) Urine Creatinine Hepatitis C Antibody 11/23/20 11/23/20 11/23/20 10:00 10:00 12:12 WBC RBC Hgb Hct MCV Lymph % (Auto) Crosby % (Auto) Lymph # (Auto) Crosby # (Auto) Seg Neutrophils % Seg Neuts % (Manual) Nucleated RBC % Seg Neutrophils # Seg Neutrophils # Man Lymphocytes # (Manual) ABG pH POC ABG pCO2 POC ABG pO2 ABG Hemoglobin ABG Sodium ABG Potassium ABG Glucose Carboxyhemoglobin Sodium Potassium Chloride Carbon Dioxide BUN 22 H Creatinine Glucose 101 H POC Glucose 119 H Lactic Acid Calcium 7.9 L Phosphorus AST ALT CK-MB (CK-2) Rel Index Troponin T NT-Pro-B Natriuret Pep Serum Total Protein 5.3 L Total Protein 5.5 L Albumin 2.8 L 2.8 L Brkhj-6-Fvkfsvfas 0.4 H Gamma Globulins 0.7 L PEP Interpretation see below H HDL Cholesterol Arterial Blood Glucose Arterial Blood Ionized Calcium Urine WBC (Auto) Urine Creatinine Hepatitis C Antibody 11/23/20 11/23/20 11/24/20 18:21 23:28 01:48 WBC RBC Hgb Hct MCV Lymph % (Auto) Crosby % (Auto) Lymph # (Auto) Crosby # (Auto) Seg Neutrophils % Seg Neuts % (Manual) Nucleated RBC % Seg Neutrophils # Seg Neutrophils # Man Lymphocytes # (Manual) ABG pH 7.281 L POC ABG pCO2 58.4 H POC ABG pO2 ABG Hemoglobin 11.8 L ABG Sodium ABG Potassium ABG Glucose 101 H Carboxyhemoglobin Sodium Potassium Chloride Carbon Dioxide BUN Creatinine Glucose POC Glucose 106 H 108 H Lactic Acid Calcium Phosphorus AST ALT CK-MB (CK-2) Rel Index Troponin T NT-Pro-B Natriuret Pep Serum Total Protein Total Protein Albumin Alntx-9-Rmthnqycn Gamma Globulins PEP Interpretation HDL Cholesterol Arterial Blood Glucose 101 H Arterial Blood Ionized Calcium Urine WBC (Auto) Urine Creatinine Hepatitis C Antibody 11/24/20 11/24/20 11/25/20 09:58 09:58 00:29 WBC RBC Hgb Hct MCV Lymph % (Auto) Crosby % (Auto) Lymph # (Auto) Crosby # (Auto) Seg Neutrophils % Seg Neuts % (Manual) Nucleated RBC % Seg Neutrophils # Seg Neutrophils # Man Lymphocytes # (Manual) ABG pH POC ABG pCO2 POC ABG pO2 ABG Hemoglobin ABG Sodium ABG Potassium ABG Glucose Carboxyhemoglobin Sodium 148 H Potassium Chloride Carbon Dioxide 34 H D BUN Creatinine Glucose POC Glucose 111 H Lactic Acid 0.60 L Calcium Phosphorus AST ALT CK-MB (CK-2) Rel Index Troponin T NT-Pro-B Natriuret Pep Serum Total Protein Total Protein Albumin Nhddg-9-Ohboxguhp Gamma Globulins PEP Interpretation HDL Cholesterol Arterial Blood Glucose Arterial Blood Ionized Calcium Urine WBC (Auto) Urine Creatinine Hepatitis C Antibody 11/25/20 11/25/20 11/25/20 05:48 08:18 08:18 WBC 13.2 H RBC 3.56 L Hgb 10.9 L Hct 34.0 L MCV 96 H Lymph % (Auto) Crosby % (Auto) Lymph # (Auto) Crosby # (Auto) Seg Neutrophils % Seg Neuts % (Manual) 98.0 H Nucleated RBC % 1.0 H Seg Neutrophils # Seg Neutrophils # Man 12.9 H Lymphocytes # (Manual) 0.0 L ABG pH POC ABG pCO2 POC ABG pO2 ABG Hemoglobin ABG Sodium ABG Potassium ABG Glucose Carboxyhemoglobin Sodium 147 H Potassium Chloride Carbon Dioxide 32 H BUN 26 H Creatinine Glucose 151 H POC Glucose 148 H Lactic Acid Calcium Phosphorus AST ALT CK-MB (CK-2) Rel Index Troponin T NT-Pro-B Natriuret Pep Serum Total Protein Total Protein 6.0 L Albumin 3.7 L Oaohr-6-Hbmwgtqte Gamma Globulins PEP Interpretation HDL Cholesterol Arterial Blood Glucose Arterial Blood Ionized Calcium Urine WBC (Auto) Urine Creatinine Hepatitis C Antibody 11/25/20 11/25/20 11/25/20 11:34 18:03 23:15 WBC RBC Hgb Hct MCV Lymph % (Auto) Crosby % (Auto) Lymph # (Auto) Crosby # (Auto) Seg Neutrophils % Seg Neuts % (Manual) Nucleated RBC % Seg Neutrophils # Seg Neutrophils # Man Lymphocytes # (Manual) ABG pH POC ABG pCO2 POC ABG pO2 ABG Hemoglobin ABG Sodium ABG Potassium ABG Glucose Carboxyhemoglobin Sodium Potassium Chloride Carbon Dioxide BUN Creatinine Glucose POC Glucose 144 H 147 H 158 H Lactic Acid Calcium Phosphorus AST ALT CK-MB (CK-2) Rel Index Troponin T NT-Pro-B Natriuret Pep Serum Total Protein Total Protein Albumin Gffpx-1-Qpkxhrzxl Gamma Globulins PEP Interpretation HDL Cholesterol Arterial Blood Glucose Arterial Blood Ionized Calcium Urine WBC (Auto) Urine Creatinine Hepatitis C Antibody 11/26/20 11/26/20 11/26/20 05:07 06:22 06:22 WBC 12.3 H RBC 3.52 L Hgb 11.1 L Hct 33.6 L MCV 95 H Lymph % (Auto) Cros[place] % (Auto) Lymph # (Auto) [place] # (Auto) Seg Neutrophils % Seg Neuts % (Manual) Nucleated RBC % Seg Neutrophils # Seg Neutrophils # Man Lymphocytes # (Manual) ABG pH POC ABG pCO2 POC ABG pO2 ABG Hemoglobin ABG Sodium ABG Potassium ABG Glucose Carboxyhemoglobin Sodium Potassium 3.3 L Chloride 95.8 L Carbon Dioxide 33 H BUN 35 H Creatinine 1.4 H Glucose 185 H POC Glucose 184 H Lactic Acid Calcium Phosphorus AST ALT CK-MB (CK-2) Rel Index Troponin T 0.036 H D NT-Pro-B Natriuret Pep Serum Total Protein Total Protein 6.2 L Albumin 3.1 L Kjjsy-4-Hjnceofnx Gamma Globulins PEP Interpretation HDL Cholesterol Arterial Blood Glucose Arterial Blood Ionized Calcium Urine WBC (Auto) Urine Creatinine Hepatitis C Antibody 11/26/20 11/26/20 11/26/20 12:52 17:30 23:14 WBC RBC Hgb Hct MCV Lymph % (Auto) Crosby % (Auto) Lymph # (Auto) Crosby # (Auto) Seg Neutrophils % Seg Neuts % (Manual) Nucleated RBC % Seg Neutrophils # Seg Neutrophils # Man Lymphocytes # (Manual) ABG pH POC ABG pCO2 POC ABG pO2 ABG Hemoglobin ABG Sodium ABG Potassium ABG Glucose Carboxyhemoglobin Sodium Potassium Chloride Carbon Dioxide BUN Creatinine Glucose POC Glucose 170 H 133 H 149 H Lactic Acid Calcium Phosphorus AST ALT CK-MB (CK-2) Rel Index Troponin T NT-Pro-B Natriuret Pep Serum Total Protein Total Protein Albumin Bnmnv-3-Wjmaqhfio Gamma Globulins PEP Interpretation HDL Cholesterol Arterial Blood Glucose Arterial Blood Ionized Calcium Urine WBC (Auto) Urine Creatinine Hepatitis C Antibody 11/27/20 11/27/20 11/27/20 05:35 08:03 12:02 WBC RBC Hgb Hct MCV Lymph % (Auto) Crosby % (Auto) Lymph # (Auto) Crosby # (Auto) Seg Neutrophils % Seg Neuts % (Manual) Nucleated RBC % Seg Neutrophils # Seg Neutrophils # Man Lymphocytes # (Manual) ABG pH POC ABG pCO2 POC ABG pO2 ABG Hemoglobin ABG Sodium ABG Potassium ABG Glucose Carboxyhemoglobin Sodium Potassium Chloride 97.0 L Carbon Dioxide 31 H BUN 41 H Creatinine 1.4 H Glucose 145 H POC Glucose 135 H 139 H Lactic Acid Calcium Phosphorus 2.20 L AST ALT CK-MB (CK-2) Rel Index Troponin T NT-Pro-B Natriuret Pep Serum Total Protein Total Protein Albumin Oufll-1-Jceslayfx Gamma Globulins PEP Interpretation HDL Cholesterol Arterial Blood Glucose Arterial Blood Ionized Calcium Urine WBC (Auto) Urine Creatinine Hepatitis C Antibody 11/27/20 11/28/20 11/28/20 18:41 05:26 06:08 WBC RBC Hgb Hct MCV Lymph % (Auto) Crosby % (Auto) Lymph # (Auto) [place] # (Auto) Seg Neutrophils % Seg Neuts % (Manual) Nucleated RBC % Seg Neutrophils # Seg Neutrophils # Man Lymphocytes # (Manual) ABG pH POC ABG pCO2 POC ABG pO2 ABG Hemoglobin ABG Sodium ABG Potassium ABG Glucose Carboxyhemoglobin Sodium Potassium Chloride Carbon Dioxide BUN 45 H Creatinine 1.4 H Glucose 135 H POC Glucose 148 H 143 H Lactic Acid Calcium Phosphorus AST ALT CK-MB (CK-2) Rel Index Troponin T NT-Pro-B Natriuret Pep Serum Total Protein Total Protein Albumin Tozqt-2-Olvluvuuj Gamma Globulins PEP Interpretation HDL Cholesterol Arterial Blood Glucose Arterial Blood Ionized Calcium Urine WBC (Auto) Urine Creatinine Hepatitis C Antibody 11/28/20 11/28/20 11/28/20 11:46 17:31 21:17 WBC RBC Hgb Hct MCV Lymph % (Auto) Crosby % (Auto) Lymph # (Auto) Cros[place] # (Auto) Seg Neutrophils % Seg Neuts % (Manual) Nucleated RBC % Seg Neutrophils # Seg Neutrophils # Man Lymphocytes # (Manual) ABG pH POC ABG pCO2 POC ABG pO2 ABG Hemoglobin ABG Sodium ABG Potassium ABG Glucose Carboxyhemoglobin Sodium Potassium Chloride Carbon Dioxide BUN Creatinine Glucose POC Glucose 132 H 156 H 122 H Lactic Acid Calcium Phosphorus AST ALT CK-MB (CK-2) Rel Index Troponin T NT-Pro-B Natriuret Pep Serum Total Protein Total Protein Albumin Dtozs-3-Mrzsszrut Gamma Globulins PEP Interpretation HDL Cholesterol Arterial Blood Glucose Arterial Blood Ionized Calcium Urine WBC (Auto) Urine Creatinine Hepatitis C Antibody 11/29/20 11/29/20 11/29/20 00:06 04:43 05:15 WBC RBC Hgb Hct MCV Lymph % (Auto) Crosby % (Auto) Lymph # (Auto) Crosby # (Auto) Seg Neutrophils % Seg Neuts % (Manual) Nucleated RBC % Seg Neutrophils # Seg Neutrophils # Man Lymphocytes # (Manual) ABG pH POC ABG pCO2 POC ABG pO2 ABG Hemoglobin ABG Sodium ABG Potassium ABG Glucose Carboxyhemoglobin Sodium Potassium Chloride 97.7 L Carbon Dioxide BUN 56 H Creatinine 1.6 H Glucose 132 H POC Glucose 114 H 125 H Lactic Acid Calcium Phosphorus AST ALT CK-MB (CK-2) Rel Index Troponin T NT-Pro-B Natriuret Pep Serum Total Protein Total Protein Albumin Vdvrs-3-Onkggaffl Gamma Globulins PEP Interpretation HDL Cholesterol Arterial Blood Glucose Arterial Blood Ionized Calcium Urine WBC (Auto) Urine Creatinine Hepatitis C Antibody 11/29/20 11/29/20 11/30/20 12:09 18:12 04:47 WBC RBC Hgb Hct MCV Lymph % (Auto) Crosby % (Auto) Lymph # (Auto) [place] # (Auto) Seg Neutrophils % Seg Neuts % (Manual) Nucleated RBC % Seg Neutrophils # Seg Neutrophils # Man Lymphocytes # (Manual) ABG pH POC ABG pCO2 POC ABG pO2 ABG Hemoglobin ABG Sodium ABG Potassium ABG Glucose Carboxyhemoglobin Sodium Potassium Chloride Carbon Dioxide 31 H BUN 59 H Creatinine 1.6 H Glucose 122 H POC Glucose 142 H 132 H Lactic Acid Calcium Phosphorus AST ALT CK-MB (CK-2) Rel Index Troponin T NT-Pro-B Natriuret Pep Serum Total Protein Total Protein Albumin Oduls-6-Fldqokepw Gamma Globulins PEP Interpretation HDL Cholesterol Arterial Blood Glucose Arterial Blood Ionized Calcium Urine WBC (Auto) Urine Creatinine Hepatitis C Antibody 11/30/20 11/30/20 11/30/20 05:45 11:47 18:16 WBC RBC Hgb Hct MCV Lymph % (Auto) Crosby % (Auto) Lymph # (Auto) Cros[place] # (Auto) Seg Neutrophils % Seg Neuts % (Manual) Nucleated RBC % Seg Neutrophils # Seg Neutrophils # Man Lymphocytes # (Manual) ABG pH POC ABG pCO2 POC ABG pO2 ABG Hemoglobin ABG Sodium ABG Potassium ABG Glucose Carboxyhemoglobin Sodium Potassium Chloride Carbon Dioxide BUN Creatinine Glucose POC Glucose 118 H 123 H 126 H Lactic Acid Calcium Phosphorus AST ALT CK-MB (CK-2) Rel Index Troponin T NT-Pro-B Natriuret Pep Serum Total Protein Total Protein Albumin Zzybd-9-Csvbriqyl Gamma Globulins PEP Interpretation HDL Cholesterol Arterial Blood Glucose Arterial Blood Ionized Calcium Urine WBC (Auto) Urine Creatinine Hepatitis C Antibody 12/01/20 12/01/20 12/01/20 00:11 04:57 05:41 WBC RBC Hgb Hct MCV Lymph % (Auto) Crosby % (Auto) Lymph # (Auto) [place] # (Auto) Seg Neutrophils % Seg Neuts % (Manual) Nucleated RBC % Seg Neutrophils # Seg Neutrophils # Man Lymphocytes # (Manual) ABG pH POC ABG pCO2 POC ABG pO2 ABG Hemoglobin ABG Sodium ABG Potassium ABG Glucose Carboxyhemoglobin Sodium Potassium Chloride Carbon Dioxide BUN 52 H Creatinine 1.4 H Glucose 121 H POC Glucose 117 H 120 H Lactic Acid Calcium Phosphorus AST ALT CK-MB (CK-2) Rel Index Troponin T NT-Pro-B Natriuret Pep Serum Total Protein Total Protein Albumin Czlpr-8-Akqaeyuvd Gamma Globulins PEP Interpretation HDL Cholesterol Arterial Blood Glucose Arterial Blood Ionized Calcium Urine WBC (Auto) Urine Creatinine Hepatitis C Antibody 12/01/20 12/02/20 12/02/20 23:35 06:02 08:09 WBC RBC Hgb Hct MCV Lymph % (Auto) Crosby % (Auto) Lymph # (Auto) [place] # (Auto) Seg Neutrophils % Seg Neuts % (Manual) Nucleated RBC % Seg Neutrophils # Seg Neutrophils # Man Lymphocytes # (Manual) ABG pH POC ABG pCO2 POC ABG pO2 ABG Hemoglobin ABG Sodium ABG Potassium ABG Glucose Carboxyhemoglobin Sodium Potassium Chloride Carbon Dioxide BUN Creatinine Glucose POC Glucose 117 H 108 H 117 H Lactic Acid Calcium Phosphorus AST ALT CK-MB (CK-2) Rel Index Troponin T NT-Pro-B Natriuret Pep Serum Total Protein Total Protein Albumin Ozmjq-2-Bhzgknnqn Gamma Globulins PEP Interpretation HDL Cholesterol Arterial Blood Glucose Arterial Blood Ionized Calcium Urine WBC (Auto) Urine Creatinine Hepatitis C Antibody 12/02/20 12/02/20 12/02/20 09:40 11:33 17:34 WBC RBC Hgb Hct MCV Lymph % (Auto) Crosby % (Auto) Lymph # (Auto) [place] # (Auto) Seg Neutrophils % Seg Neuts % (Manual) Nucleated RBC % Seg Neutrophils # Seg Neutrophils # Man Lymphocytes # (Manual) ABG pH POC ABG pCO2 POC ABG pO2 ABG Hemoglobin ABG Sodium ABG Potassium ABG Glucose Carboxyhemoglobin Sodium Potassium Chloride 97.6 L Carbon Dioxide 35 H BUN 45 H Creatinine Glucose POC Glucose 109 H 124 H Lactic Acid Calcium Phosphorus AST ALT CK-MB (CK-2) Rel Index Troponin T NT-Pro-B Natriuret Pep Serum Total Protein Total Protein Albumin Dgyjs-4-Gxhnvdjgt Gamma Globulins PEP Interpretation HDL Cholesterol Arterial Blood Glucose Arterial Blood Ionized Calcium Urine WBC (Auto) Urine Creatinine Hepatitis C Antibody 12/03/20 12/03/20 12/03/20 05:40 07:16 16:46 WBC RBC Hgb Hct MCV Lymph % (Auto) Crosby % (Auto) Lymph # (Auto) [place] # (Auto) Seg Neutrophils % Seg Neuts % (Manual) Nucleated RBC % Seg Neutrophils # Seg Neutrophils # Man Lymphocytes # (Manual) ABG pH POC ABG pCO2 POC ABG pO2 ABG Hemoglobin ABG Sodium ABG Potassium ABG Glucose Carboxyhemoglobin Sodium Potassium Chloride Carbon Dioxide BUN 44 H Creatinine Glucose 117 H POC Glucose 115 H 106 H Lactic Acid Calcium Phosphorus AST ALT CK-MB (CK-2) Rel Index Troponin T NT-Pro-B Natriuret Pep Serum Total Protein Total Protein Albumin Cjxsd-3-Qmszugyfc Gamma Globulins PEP Interpretation HDL Cholesterol Arterial Blood Glucose Arterial Blood Ionized Calcium Urine WBC (Auto) Urine Creatinine Hepatitis C Antibody 12/03/20 12/04/20 12/04/20 21:55 07:53 11:43 WBC RBC Hgb Hct MCV Lymph % (Auto) Crosby % (Auto) Lymph # (Auto) [place] # (Auto) Seg Neutrophils % Seg Neuts % (Manual) Nucleated RBC % Seg Neutrophils # Seg Neutrophils # Man Lymphocytes # (Manual) ABG pH POC ABG pCO2 POC ABG pO2 ABG Hemoglobin ABG Sodium ABG Potassium ABG Glucose Carboxyhemoglobin Sodium Potassium Chloride Carbon Dioxide BUN Creatinine Glucose POC Glucose 113 H 110 H 110 H Lactic Acid Calcium Phosphorus AST ALT CK-MB (CK-2) Rel Index Troponin T NT-Pro-B Natriuret Pep Serum Total Protein Total Protein Albumin Vbfsk-0-Mnnsyucmv Gamma Globulins PEP Interpretation HDL Cholesterol Arterial Blood Glucose Arterial Blood Ionized Calcium Urine WBC (Auto) Urine Creatinine Hepatitis C Antibody 12/04/20 12/08/20 12/09/20 17:21 09:43 08:43 WBC RBC Hgb Hct MCV Lymph % (Auto) Crosby % (Auto) Lymph # (Auto) [place] # (Auto) Seg Neutrophils % Seg Neuts % (Manual) Nucleated RBC % Seg Neutrophils # Seg Neutrophils # Man Lymphocytes # (Manual) ABG pH POC ABG pCO2 POC ABG pO2 ABG Hemoglobin ABG Sodium ABG Potassium ABG Glucose Carboxyhemoglobin Sodium Potassium Chloride 96.2 L Carbon Dioxide 39 H BUN 34 H Creatinine Glucose POC Glucose 135 H Lactic Acid Calcium Phosphorus AST ALT CK-MB (CK-2) Rel Index Troponin T NT-Pro-B Natriuret Pep 4253 H Serum Total Protein Total Protein Albumin Ypctd-2-Nbiljaosj Gamma Globulins PEP Interpretation HDL Cholesterol Arterial Blood Glucose Arterial Blood Ionized Calcium Urine WBC (Auto) Urine Creatinine Hepatitis C Antibody 12/10/20 14:53 WBC RBC Hgb Hct MCV Lymph % (Auto) Crosby % (Auto) Lymph # (Auto) Crosby # (Auto) Seg Neutrophils % Seg Neuts % (Manual) Nucleated RBC % Seg Neutrophils # Seg Neutrophils # Man Lymphocytes # (Manual) ABG pH POC ABG pCO2 POC ABG pO2 ABG Hemoglobin ABG Sodium ABG Potassium ABG Glucose Carboxyhemoglobin Sodium Potassium Chloride 91.9 L Carbon Dioxide 39 H BUN 46 H Creatinine Glucose 141 H POC Glucose Lactic Acid Calcium Phosphorus AST ALT CK-MB (CK-2) Rel Index Troponin T NT-Pro-B Natriuret Pep Serum Total Protein Total Protein Albumin Odbhw-3-Uvgzioqgf Gamma Globulins PEP Interpretation HDL Cholesterol Arterial Blood Glucose Arterial Blood Ionized Calcium Urine WBC (Auto) Urine Creatinine Hepatitis C Antibody
[2020-12-12 12:43] LABS: Calcium 8.3 mg/dL (8.4-10.2)
[2020-12-13] MEDS: methylPREDNISolone Sod Succinate 125 MG/2 ML INJ IV SCH ×4 (00:15→17:02)
[2020-12-13] MEDS: HEPARIN 5,000 UNIT/1 ML VIAL SUB-Q SCH ×3 (05:51→21:21)
[2020-12-13] MEDS: BUDESONIDE 0.5 MG/2 ML NEBU IH SCH ×2 (08:43→21:56)
[2020-12-13] MEDS: IPRATROPIUM/ALBUTEROL SULFATE 3 ML AMPUL.NEB IH SCH ×3 (08:43→21:56)
[2020-12-13] MEDS: QUEtiapine 25 MG TAB PO SCH ×2 (10:04→21:21)
[2020-12-13] MEDS: TAMSULOSIN 0.4 MG CAP PO SCH (10:04)
[2020-12-13] MEDS: carvediloL 12.5 MG TAB PO SCH ×2 (10:04→21:20)
[2020-12-13] MEDS: LANSOPRAZOLE 30 MG SOLUTAB FEEDTUBE SCH (10:04)
[2020-12-13] MEDS: SENNOSIDES/DOCUSATE SODIUM 8.6/50 MG TAB FEEDTUBE SCH ×2 (10:04→21:19)
[2020-12-13] MEDS: ASPIRIN 81 MG TAB CHEW PO SCH (10:04)
--- NOTE | 2020-12-13 12:54 | Progress Note ---
Assessment and Plan Assessment and Plan PT/OT evaluation, when he comes off high flow oxygen --Hypokalemia; resolved Monitor electrolytes --Acute kidney injury; vasomotor nephropathy Gentle hydration closely monitor renal function --Acute hypoxic respiratory failure/Requiring intubation 11/21/2020 s/p extubation 11/23/2020, patient is on noninvasive ventilation on high flow nasal cannula oxygen Fio2/97% sat 30 L / 60% FiO2 today slightly better 15 L 35 FiO2 O2 sats 94% Wean as tolerated, --Acute exacerbation of COPD; Home oxygen dependent BiPAP as needed, wean as tolerated Pulmonary hygiene, pulmonary critical care following --Severe pulmonary hypertension; Management per pulmonary, continue supportive care --Acute metabolic encephalopathy -11/21 CT head shows no acute intracranial abnormality, sinus disease Continue supportive care --NSTEMI type II Presented with [facility] with elevated troponins cardiology patient had a stress test in 2019 which showed no significant ischemia, Echo; EF 50 to 55% severe pulmonary hypertension moderate mitral stenosis may benefit from HECTOR for evaluation of mitral valve when patient is stable and extubated --Acute kidney injury; present on admission Vasomotor nephropathy Now resolved, normal renal function Avoid nephrotoxins, nephrology following --History of bladder cancer; Indwelling Paulson in place, supportive care Continue Flomax --Urinary tract infection; Continue empiric antibiotics total 5 days Supportive care --Dyslipidemia; Continue statin and low-cholesterol diet --Hypertension; moderate control We will continue current antihypertensives And as needed hydralazine --Hypernatremia ; Patient was hyponatremia on admission ,probably overcorrection Free water via [place], nephrology following Monitor electrolytes --Severe protein calorie malnutrition ; Hypoalbuminemia ,nutrition supplements Nutrition consult and supportive care --DVT prophylaxis; Subcu heparin, SCDs --GI prophylaxis; Continue Prevacid --Full CODE STATUS; Bedside swallow screen, if normal start diet pured/mechanical soft advance as tolerated We will also request physical therapy We will closely monitor the patient and adjust the management as needed Consults and recommendations noted and appreciated Plan of care reviewed with the patient's nurse PT OT when he comes off high flow oxygen DC planning per case management; considering LTAC placement The high probability of a clinically significant, sudden or life threatening deterioration of the [resp, cardiac, nephrology, metabolic] system(s) required my full and direct attention, intervention and personal management. The aggregate critical care time was [34] minutes. This time is in addition to time spent performing reported procedures but includes the following: [x] Data Review and interpretation [x] Patient assessment and monitoring of vital signs [x] Documentation [x] Medication orders and management signed for thank you caregiver Subjective Date of service: 12/13/20 Principal diagnosis: Acute respiratory failure Interval history: Brief history and daily hospital course: 85-year-old male patient with past medical history of COPD on home oxygen, GERD, hypertension, asthma, hyperlipidemia, vasopressin, bladder cancer admitted for acute hypoxic respiratory failure, intubated on 11/21/2020 managed appropriately evaluated by pulmonary critical subsequently extubated on 11/23/2020, today patient is on high flow nasal cannula oxygen, pulmonary critical, cardiology and nephrology following the patient 11/23: Patient was extubated, currently on BiPAP Mild distress, wean as tolerated 11/24/2020 Patient on BiPAP S/p extubation 11/25/2020; patient is on BiPAP Mild distress, noncommunicative 11/26/2020; patient is on intermittent BiPAP Currently on high flow nasal cannula oxygen 11/27/2020; patient is more alert and awake Will get swallow screen, if normal start pured diet Transfer the patient to [facility] 11/28/2020; patient is on high flow oxygen slightly better than yesterday Able to tolerate mechanical soft diet when the family comes and helps him DC planning, considering LTAC placement 11/29 Still on HFNC oxygen 11/30 Still on HFNC oxygen 12/01 on 35 liters O2 12/02/2020 Patient on high flow nasal cannula oxygen 714/21; patient remains on high flow nasal cannula oxygen requiring 25 L/FiO2 35 %/O2 sats 96 Wean as tolerated, awaiting LTAC placement Patient is hemodynamically and clinically stable to be transferred out of [facility] to cardiac telemetry or medical floor with remote telemetry today. 12/04/2020; remains on high flow oxygen 25 L/35%/96% O2 sats Wean as tolerated, pending LTAC placement consider PT OT once patient's respiratory status is stable 12/05/2020; patient feels slightly better more alert and awake Responding to simple questions appropriately, titrated the oxygen Today patient is requiring 3 to 4 L of nasal cannula oxygen Significantly improved from yesterday when he needed 25 L Physical therapy evaluation and treatment, home oxygen evaluation prior to discharge 12/06/2020; patient is requiring 10 L of supplemental oxygen today Wean as tolerated PT OT evaluation recommendations noted, Possible discharge in 1 to 2 days if stable Patient's son Ana Gardner [phone] at the bedside Discussed in detail patient's condition, tests and reports Discharge planning, answered all his questions 12/07/2020; today patient is requiring high flow nasal cannula oxygen, 25 L In mild distress, wean as tolerated to 3 to 4 L nasal cannula DC planning per case management, possible home with home health when patient is medically stable 12/08/2020 today patient is requiring high flow nasal cannula oxygen, but slightly improved patient is at 15 L O2 PT and OT recommend home health PT OT, wean patient off high flow oxygen Titrate to 3 to 4 L nasal cannula, possible discharge in 1 to 2 days if stable And cleared by pulmonary 12/09/2020; patient continues to require high flow nasal cannula oxygen between 15 to 20 L Management per pulmonary. Wean as tolerated I spoke with bilingual Gren[place] speaking granddaughter at the bedside, answered all her questions 12/10/2020; no change clinically, continues to require 20 to 30 L of high flow nasal cannula oxygen If no improvement we will consider transferring to IMCU or ICU for close observation after discussing with pulmonary. 12/11/2020 I spoke to bilingual [place] speaking patient's son Ana Miller [phone] And discussed in detail patient's condition, treatment plan, poor prognosis, plans of Transferring to [facility] when bed is available, and the patient is requiring high flow nasal cannula oxygen He verbalized understanding, full CODE STATUS at this point. Answered all his questions. 12/12/2020; patient is more alert and awake, feels slightly better still remains on high flow oxygen however titrating down Closely monitor, awaiting LTAC placement at [facility] , discussed with Grenadian- speaking family member at the bedside today Disposition; wean high flow oxygen as tolerated Discharge when patient is stable Follow pulmonary recommendations 12/13/2020 Patient still on high flow oxygen Patient waiting for LTAC placement Objective - Constitutional Vitals: Vital Signs - 12hr 12/13/20 12/13/20 12/13/20 04:18 04:54 07:47 Temperature 97.3 F L 97.7 F Pulse Rate 65 63 53 L Pulse Rate [ From Monitor] Respiratory 18 19 Rate Blood Pressure 175/68 178/65 Blood Pressure 165/67 [Left] O2 Sat by Pulse 90 96 Oximetry 12/13/20 12/13/20 12/13/20 08:34 10:04 11:27 Temperature 97.8 F Pulse Rate 66 57 L Pulse Rate [ 59 L From Monitor] Respiratory 18 19 Rate Blood Pressure 155/61 138/57 Blood Pressure [Left] O2 Sat by Pulse 98 96 Oximetry General appearance: Present: no acute distress, well-nourished - EENT Eyes: PERRL, EOM intact ENT: hearing intact, clear oral mucosa Ears: bilateral: normal - Neck Neck: supple, normal ROM - Respiratory Respiratory effort: normal Respiratory: bilateral: CTA, diminished, rhonchi, wheezing - Breasts Breasts: normal - Cardiovascular Heart rate: 78 Rhythm: regular Heart Sounds: Present: S1 & S2. Absent: gallop, rub Extremities: pulses intact, No edema, normal color, Full ROM - Gastrointestinal General gastrointestinal: Present: soft, non-tender, non-distended, normal bowel sounds - Genitourinary Male genitourinary: normal - Integumentary Integumentary: clear, warm, dry - Musculoskeletal Musculoskeletal: 1, strength equal bilaterally - Neurologic Neurologic: moves all extremities - Psychiatric Psychiatric: memory intact, appropriate mood/affect, intact judgment & insight - Labs CBC & Chem 7: 11/28/20 09:21 12/12/20 12:05 HEART Score - HEART Score Troponin: Troponin T 0.021 ng/mL (0.00-0.029) 11/29/20 04:43
--- NOTE | 2020-12-13 15:50 | Progress Note ---
Assessment and Plan 85 y/o irish male admitted with acute hypoxic respiratory failure. 12/13/2020: No new complaints. Still on high flow nasal cannula. Given the body habitus suspect may have obstructive sleep apnea as well. May consider PSG as an outpatient in the future. 12/12/20: Lasix again today. Ordered labs for today. Continue to wean FiO2 for sats >88%. Follow up with CM. Prognosis still remains guarded but more promising now that oxygen requirement is coming down. 12/11/20: Lasix again today. Labs stable on yesterday. Continues to have desats at night. Hesistant to order positive pressure at night as this could make the patient more agitated and worsen oxygenation but may consider if the same thing happens again tonight. Follow up with CM on LTACH as he definitely needs it. Will continue to follow. Guarded prognosis. 12/10/20: BNP elevated, lasix again today. Ordered labs for this am, will review once back. May need to increase night time seroquel as night nurse documented patient taking off cannula constantly but easy redirection. Appeal done by CM. Continue High dose steroids. Guarded prognosis. 12/09/20: Continue High Dose IV steroids. Follow up BNP. Today will give lasix 40mg IV x1. Please ask CM to appeal LTACH denial as patient will need it. After speaking with RT, patient becomes very agitated and frustrated secondary to language barrier and will remove supplemental O2 requiring him to be put on higher numbers to recover. Suggest using language line more often or calling daughter who is in the medical profession and speaks very good [place]. Will continue to follow. 12/08/20: with change in oxygen requirement, will place back on IV steroids. Will order labs including BNP today and give lasix 20mg IV x1. Initial LTACH request was denied, suggest having CM appeal it now that patient is back on HFNC. Will continue to follow. 12/06/20: Steroid taper as follows: 60 daily for 5 days, 40 daily for 5 days, 20 daily for 5 days, 10 daily for 5 days. Resume whatever home regimen patient was on at home. Wean Oxygen for sats >88%, likely patient will be fine on 2-3 liters, does not need 4. Will sign off. Call if questions. 12/05/20: Change to oral steroids starting tomorrow with prolonged taper. Likely dischargeable over the weekend. 12/04/20: LTACH denied. Continue to wean. Continue IV steroids. 12/03/20: Follow up with CM in regards to LTACH. Continue IV steroids. Wean FiO2 as tolerated. PT/OT if not already evaluated. Patient stable enough to transfer to floor. 12/02/20: CM still waiting to hear back from LTACH in regards to auth. Continue to wean FiO2 as tolerated for sats >88%. Continue IV steroids. 12/01/20: Wean HFNC for sats >88%. Spoke with CM about checking on LTACH but patient may be able to be weaned further now while in house. Will speak with RT about this. If placed on salter, may need to consider transfer to medical/surgical floor with remote tele. 11/28/20: Continue to wean HFNC. Agree with holding Precedex, can increase sero quel if needed to help with mood. Hopeful that over the weekend will be down to nasal cannula and can transfer to the floor. CM working on LTACH evaluation. Patient is stable for transfer, if and when accepted. 11/27/20: Will transfer to step down today. Agree with bedside swallow eval now that patient is more awake. Will try bID seroquel to help with mood and agitation. Hopeful Cr has stablized. Continue steroids at 40q8. Consider LTACH evaluation 11/26/20: 11/25/20: Continue bipap for right now. Added precedex and stopped ativan as this may be worsening agitation. Ok with haldol use. Continue daily diuretics to keep patient net negative. Continue ICU monitoring for now. Renal function is better. Guarded prognosis. 11/23/20: Wean sedation to off. If patient can tolerate being off sedation, will attempt PSV trial, otherwise, will likely have to just stop sedation and extu tanvi, will have bipap ready for as needed purposes. Needs chemistry to assess renal function. Out put was good. 1. Repeat ABG later this afternoon and wean FIO2 according (>88%) 2. Stop sedation, need to assess mental state 3. Follow up renal function and urine output. Subjective Date of service: 12/13/20 Principal diagnosis: Acute respiratory failure Interval history: Difficult to communicate due to language barrier. Seems to report having reasonably good breathing today. Continue to have cough Objective Vital Signs - 12hr 12/13/20 12/13/20 12/13/20 04:18 04:54 07:47 Temperature 97.3 F L 97.7 F Pulse Rate 65 63 53 L Pulse Rate [ From Monitor] Respiratory 18 19 Rate Blood Pressure 175/68 178/65 Blood Pressure 165/67 [Left] O2 Sat by Pulse 90 96 Oximetry 12/13/20 12/13/20 12/13/20 08:34 10:04 11:27 Temperature 97.8 F Pulse Rate 66 57 L Pulse Rate [ 59 L From Monitor] Respiratory 18 19 Rate Blood Pressure 155/61 138/57 Blood Pressure [Left] O2 Sat by Pulse 98 96 Oximetry Constitutional: no acute distress, alert Eyes: non-icteric ENT: oropharynx moist, other (Crowded oropharynx) Neck: supple, other (large in circumference) Effort: normal Ascultation: Bilateral: clear, diminished breath sounds, wheezes Percussion: Bilateral: not dull Cardiovascular: other (tachy, no mrg) Gastrointestinal: normoactive bowel sounds, soft, non-tender, non-distended Extremities: no cyanosis, no edema, pink and warm Neurologic: normal mental status, non-focal exam, pupils equal and round Psychiatric: mood appropriate, affect normal CBC and BMP: 11/28/20 09:21 12/12/20 12:05 ABG, PT/INR, D-dimer: ABG ABG pH 7.281 (7.320-7.450) L 11/24/20 01:48 POC ABG pCO2 58.4 mmHg (32.0-48.0) H 11/24/20 01:48 POC ABG pO2 98.1 mmHg (83-108) 11/24/20 01:48 POC ABG HCO3 26.9 11/24/20 01:48 ABG O2 Saturation 96.9 (0-100) 11/24/20 01:48 PT/INR, D-dimer PT 13.5 Sec. (12.2-14.9) 11/21/20 20:50 INR 0.98 (0.87-1.13) 11/21/20 20:50 Abnormal lab findings: Abnormal Labs 11/21/20 11/21/20 11/22/20 20:50 20:50 00:11 WBC RBC 3.48 L Hgb 11.1 L Hct 34.3 L MCV 99 H Lymph % (Auto) 6.8 L [place] % (Auto) Lymph # (Auto) 0.6 L [place] # (Auto) Seg Neutrophils % 85.5 H Seg Neuts % (Manual) Nucleated RBC % Seg Neutrophils # Seg Neutrophils # Man Lymphocytes # (Manual) ABG pH POC ABG pCO2 POC ABG pO2 ABG Hemoglobin ABG Sodium ABG Potassium ABG Glucose Carboxyhemoglobin Sodium 130 L Potassium 7.3 H* Chloride 91.1 L Carbon Dioxide BUN 40 H Creatinine 2.1 H Glucose 195 H POC Glucose Lactic Acid Calcium Phosphorus AST 91 H ALT 65 H CK-MB (CK-2) Rel Index 4.1 H Troponin T 0.045 H NT-Pro-B Natriuret Pep 6998 H Serum Total Protein Total Protein Albumin 3.7 L Qaiyc-4-Stblyramb Gamma Globulins PEP Interpretation HDL Cholesterol 60 H Arterial Blood Glucose Arterial Blood Ionized Calcium Urine WBC (Auto) Urine Creatinine 158.2 H Hepatitis C Antibody 11/22/20 11/22/20 11/22/20 00:23 00:40 01:37 WBC 14.1 H RBC 3.53 L Hgb 11.0 L Hct 34.1 L MCV 97 H Lymph % (Auto) 12.3 L [place] % (Auto) 14.2 H Lymph # (Auto) [place] # (Auto) 2.0 H Seg Neutrophils % 72.3 H Seg Neuts % (Manual) Nucleated RBC % Seg Neutrophils # 10.2 H Seg Neutrophils # Man Lymphocytes # (Manual) ABG pH POC ABG pCO2 POC ABG pO2 ABG Hemoglobin ABG Sodium ABG Potassium ABG Glucose Carboxyhemoglobin Sodium Potassium 5.1 H D Chloride Carbon Dioxide BUN Creatinine Glucose POC Glucose Lactic Acid 2.10 H* Calcium Phosphorus AST ALT CK-MB (CK-2) Rel Index Troponin T NT-Pro-B Natriuret Pep Serum Total Protein Total Protein Albumin Cmitg-4-Saddlyakw Gamma Globulins PEP Interpretation HDL Cholesterol Arterial Blood Glucose Arterial Blood Ionized Calcium Urine WBC (Auto) Urine Creatinine Hepatitis C Antibody 11/22/20 11/22/20 11/22/20 01:37 03:20 05:00 WBC RBC Hgb Hct MCV Lymph % (Auto) [place] % (Auto) Lymph # (Auto) [place] # (Auto) Seg Neutrophils % Seg Neuts % (Manual) Nucleated RBC % Seg Neutrophils # Seg Neutrophils # Man Lymphocytes # (Manual) ABG pH POC ABG pCO2 58.4 H POC ABG pO2 ABG Hemoglobin 11.1 L ABG Sodium 135.1 L ABG Potassium 5.0 H ABG Glucose Carboxyhemoglobin Sodium Potassium 5.1 H Chloride Carbon Dioxide 31 H BUN 40 H Creatinine 2.0 H Glucose 49 L POC Glucose Lactic Acid Calcium Phosphorus AST ALT CK-MB (CK-2) Rel Index Troponin T NT-Pro-B Natriuret Pep Serum Total Protein Total Protein Albumin Onptd-4-Duzvqkcfn Gamma Globulins PEP Interpretation HDL Cholesterol Arterial Blood Glucose Arterial Blood Ionized Calcium Urine WBC (Auto) 33.0 H Urine Creatinine Hepatitis C Antibody 11/22/20 11/22/20 11/22/20 05:00 05:00 05:00 WBC RBC Hgb Hct MCV Lymph % (Auto) [place] % (Auto) Lymph # (Auto) [place] # (Auto) Seg Neutrophils % Seg Neuts % (Manual) Nucleated RBC % Seg Neutrophils # Seg Neutrophils # Man Lymphocytes # (Manual) ABG pH POC ABG pCO2 POC ABG pO2 ABG Hemoglobin ABG Sodium ABG Potassium ABG Glucose Carboxyhemoglobin Sodium 136 L Potassium Chloride 97.8 L Carbon Dioxide BUN 41 H Creatinine 1.8 H 1.8 H Glucose POC Glucose Lactic Acid Calcium 8.2 L Phosphorus AST ALT CK-MB (CK-2) Rel Index Troponin T 0.065 H D NT-Pro-B Natriuret Pep Serum Total Protein Total Protein Albumin Vluty-8-Nmsumgqjv Gamma Globulins PEP Interpretation HDL Cholesterol Arterial Blood Glucose Arterial Blood Ionized Calcium Urine WBC (Auto) Urine Creatinine Hepatitis C Antibody 11/22/20 11/22/20 11/22/20 10:20 10:20 15:00 WBC RBC 3.16 L Hgb 10.2 L Hct 29.9 L MCV 95 H Lymph % (Auto) [place] % (Auto) Lymph # (Auto) [place] # (Auto) Seg Neutrophils % Seg Neuts % (Manual) Nucleated RBC % Seg Neutrophils # Seg Neutrophils # Man Lymphocytes # (Manual) ABG pH 7.501 H POC ABG pCO2 POC ABG pO2 ABG Hemoglobin 10.5 L ABG Sodium 134.9 L ABG Potassium ABG Glucose 115 H Carboxyhemoglobin 0.4 L Sodium Potassium Chloride Carbon Dioxide BUN Creatinine Glucose POC Glucose Lactic Acid Calcium Phosphorus AST ALT CK-MB (CK-2) Rel Index Troponin T 0.078 H NT-Pro-B Natriuret Pep Serum Total Protein Total Protein Albumin Xspwt-5-Zhumbfiam Gamma Globulins PEP Interpretation HDL Cholesterol Arterial Blood Glucose 115 H Arterial Blood Ionized Calcium 4.3 L Urine WBC (Auto) Urine Creatinine Hepatitis C Antibody 11/22/20 11/22/20 11/22/20 16:00 17:45 23:21 WBC RBC Hgb Hct MCV Lymph % (Auto) [place] % (Auto) Lymph # (Auto) [place] # (Auto) Seg Neutrophils % Seg Neuts % (Manual) Nucleated RBC % Seg Neutrophils # Seg Neutrophils # Man Lymphocytes # (Manual) ABG pH POC ABG pCO2 POC ABG pO2 ABG Hemoglobin ABG Sodium ABG Potassium ABG Glucose Carboxyhemoglobin Sodium Potassium Chloride Carbon Dioxide BUN Creatinine Glucose POC Glucose 107 H 115 H Lactic Acid Calcium Phosphorus AST ALT CK-MB (CK-2) Rel Index Troponin T NT-Pro-B Natriuret Pep Serum Total Protein Total Protein Albumin Lolqc-5-Qbytaxpcn Gamma Globulins PEP Interpretation HDL Cholesterol Arterial Blood Glucose Arterial Blood Ionized Calcium Urine WBC (Auto) Urine Creatinine Hepatitis C Antibody Reactive A 11/23/20 11/23/20 11/23/20 03:03 05:33 10:00 WBC RBC 3.33 L Hgb 10.6 L Hct 32.2 L MCV 97 H Lymph % (Auto) [place] % (Auto) 15.0 H Lymph # (Auto) [place] # (Auto) 1.5 H Seg Neutrophils % Seg Neuts % (Manual) Nucleated RBC % Seg Neutrophils # Seg Neutrophils # Man Lymphocytes # (Manual) ABG pH POC ABG pCO2 POC ABG pO2 115.8 H ABG Hemoglobin 10.1 L ABG Sodium 135.8 L ABG Potassium ABG Glucose 98 H Carboxyhemoglobin 0.4 L Sodium Potassium Chloride Carbon Dioxide BUN Creatinine Glucose POC Glucose 106 H Lactic Acid Calcium Phosphorus AST ALT CK-MB (CK-2) Rel Index Troponin T NT-Pro-B Natriuret Pep Serum Total Protein Total Protein Albumin Fpyfd-7-Kuefivkhw Gamma Globulins PEP Interpretation HDL Cholesterol Arterial Blood Glucose 98 H Arterial Blood Ionized Calcium 4.4 L Urine WBC (Auto) Urine Creatinine Hepatitis C Antibody 11/23/20 11/23/20 11/23/20 10:00 10:00 12:12 WBC RBC Hgb Hct MCV Lymph % (Auto) [place] % (Auto) Lymph # (Auto) [place] # (Auto) Seg Neutrophils % Seg Neuts % (Manual) Nucleated RBC % Seg Neutrophils # Seg Neutrophils # Man Lymphocytes # (Manual) ABG pH POC ABG pCO2 POC ABG pO2 ABG Hemoglobin ABG Sodium ABG Potassium ABG Glucose Carboxyhemoglobin Sodium Potassium Chloride Carbon Dioxide BUN 22 H Creatinine Glucose 101 H POC Glucose 119 H Lactic Acid Calcium 7.9 L Phosphorus AST ALT CK-MB (CK-2) Rel Index Troponin T NT-Pro-B Natriuret Pep Serum Total Protein 5.3 L Total Protein 5.5 L Albumin 2.8 L 2.8 L Czbcl-5-Ymorgjnkc 0.4 H Gamma Globulins 0.7 L PEP Interpretation see below H HDL Cholesterol Arterial Blood Glucose Arterial Blood Ionized Calcium Urine WBC (Auto) Urine Creatinine Hepatitis C Antibody 11/23/20 11/23/20 11/24/20 18:21 23:28 01:48 WBC RBC Hgb Hct MCV Lymph % (Auto) [place] % (Auto) Lymph # (Auto) [place] # (Auto) Seg Neutrophils % Seg Neuts % (Manual) Nucleated RBC % Seg Neutrophils # Seg Neutrophils # Man Lymphocytes # (Manual) ABG pH 7.281 L POC ABG pCO2 58.4 H POC ABG pO2 ABG Hemoglobin 11.8 L ABG Sodium ABG Potassium ABG Glucose 101 H Carboxyhemoglobin Sodium Potassium Chloride Carbon Dioxide BUN Creatinine Glucose POC Glucose 106 H 108 H Lactic Acid Calcium Phosphorus AST ALT CK-MB (CK-2) Rel Index Troponin T NT-Pro-B Natriuret Pep Serum Total Protein Total Protein Albumin Rterq-2-Pqhmdduas Gamma Globulins PEP Interpretation HDL Cholesterol Arterial Blood Glucose 101 H Arterial Blood Ionized Calcium Urine WBC (Auto) Urine Creatinine Hepatitis C Antibody 11/24/20 11/24/20 11/25/20 09:58 09:58 00:29 WBC RBC Hgb Hct MCV Lymph % (Auto) [place] % (Auto) Lymph # (Auto) [place] # (Auto) Seg Neutrophils % Seg Neuts % (Manual) Nucleated RBC % Seg Neutrophils # Seg Neutrophils # Man Lymphocytes # (Manual) ABG pH POC ABG pCO2 POC ABG pO2 ABG Hemoglobin ABG Sodium ABG Potassium ABG Glucose Carboxyhemoglobin Sodium 148 H Potassium Chloride Carbon Dioxide 34 H D BUN Creatinine Glucose POC Glucose 111 H Lactic Acid 0.60 L Calcium Phosphorus AST ALT CK-MB (CK-2) Rel Index Troponin T NT-Pro-B Natriuret Pep Serum Total Protein Total Protein Albumin Cizag-5-Pillqpjnh Gamma Globulins PEP Interpretation HDL Cholesterol Arterial Blood Glucose Arterial Blood Ionized Calcium Urine WBC (Auto) Urine Creatinine Hepatitis C Antibody 11/25/20 11/25/20 11/25/20 05:48 08:18 08:18 WBC 13.2 H RBC 3.56 L Hgb 10.9 L Hct 34.0 L MCV 96 H Lymph % (Auto) [place] % (Auto) Lymph # (Auto) [place] # (Auto) Seg Neutrophils % Seg Neuts % (Manual) 98.0 H Nucleated RBC % 1.0 H Seg Neutrophils # Seg Neutrophils # Man 12.9 H Lymphocytes # (Manual) 0.0 L ABG pH POC ABG pCO2 POC ABG pO2 ABG Hemoglobin ABG Sodium ABG Potassium ABG Glucose Carboxyhemoglobin Sodium 147 H Potassium Chloride Carbon Dioxide 32 H BUN 26 H Creatinine Glucose 151 H POC Glucose 148 H Lactic Acid Calcium Phosphorus AST ALT CK-MB (CK-2) Rel Index Troponin T NT-Pro-B Natriuret Pep Serum Total Protein Total Protein 6.0 L Albumin 3.7 L Gvdzh-4-Awqogfncs Gamma Globulins PEP Interpretation HDL Cholesterol Arterial Blood Glucose Arterial Blood Ionized Calcium Urine WBC (Auto) Urine Creatinine Hepatitis C Antibody 11/25/20 11/25/20 11/25/20 11:34 18:03 23:15 WBC RBC Hgb Hct MCV Lymph % (Auto) [place] % (Auto) Lymph # (Auto) [place] # (Auto) Seg Neutrophils % Seg Neuts % (Manual) Nucleated RBC % Seg Neutrophils # Seg Neutrophils # Man Lymphocytes # (Manual) ABG pH POC ABG pCO2 POC ABG pO2 ABG Hemoglobin ABG Sodium ABG Potassium ABG Glucose Carboxyhemoglobin Sodium Potassium Chloride Carbon Dioxide BUN Creatinine Glucose POC Glucose 144 H 147 H 158 H Lactic Acid Calcium Phosphorus AST ALT CK-MB (CK-2) Rel Index Troponin T NT-Pro-B Natriuret Pep Serum Total Protein Total Protein Albumin Kitez-1-Cwkrrajtw Gamma Globulins PEP Interpretation HDL Cholesterol Arterial Blood Glucose Arterial Blood Ionized Calcium Urine WBC (Auto) Urine Creatinine Hepatitis C Antibody 11/26/20 11/26/20 11/26/20 05:07 06:22 06:22 WBC 12.3 H RBC 3.52 L Hgb 11.1 L Hct 33.6 L MCV 95 H Lymph % (Auto) [place] % (Auto) Lymph # (Auto) [place] # (Auto) Seg Neutrophils % Seg Neuts % (Manual) Nucleated RBC % Seg Neutrophils # Seg Neutrophils # Man Lymphocytes # (Manual) ABG pH POC ABG pCO2 POC ABG pO2 ABG Hemoglobin ABG Sodium ABG Potassium ABG Glucose Carboxyhemoglobin Sodium Potassium 3.3 L Chloride 95.8 L Carbon Dioxide 33 H BUN 35 H Creatinine 1.4 H Glucose 185 H POC Glucose 184 H Lactic Acid Calcium Phosphorus AST ALT CK-MB (CK-2) Rel Index Troponin T 0.036 H D NT-Pro-B Natriuret Pep Serum Total Protein Total Protein 6.2 L Albumin 3.1 L Bjsdk-5-Eppfcylsl Gamma Globulins PEP Interpretation HDL Cholesterol Arterial Blood Glucose Arterial Blood Ionized Calcium Urine WBC (Auto) Urine Creatinine Hepatitis C Antibody 11/26/20 11/26/20 11/26/20 12:52 17:30 23:14 WBC RBC Hgb Hct MCV Lymph % (Auto) [place] % (Auto) Lymph # (Auto) [place] # (Auto) Seg Neutrophils % Seg Neuts % (Manual) Nucleated RBC % Seg Neutrophils # Seg Neutrophils # Man Lymphocytes # (Manual) ABG pH POC ABG pCO2 POC ABG pO2 ABG Hemoglobin ABG Sodium ABG Potassium ABG Glucose Carboxyhemoglobin Sodium Potassium Chloride Carbon Dioxide BUN Creatinine Glucose POC Glucose 170 H 133 H 149 H Lactic Acid Calcium Phosphorus AST ALT CK-MB (CK-2) Rel Index Troponin T NT-Pro-B Natriuret Pep Serum Total Protein Total Protein Albumin Lgakl-8-Nbgfbntpr Gamma Globulins PEP Interpretation HDL Cholesterol Arterial Blood Glucose Arterial Blood Ionized Calcium Urine WBC (Auto) Urine Creatinine Hepatitis C Antibody 11/27/20 11/27/20 11/27/20 05:35 08:03 12:02 WBC RBC Hgb Hct MCV Lymph % (Auto) [place] % (Auto) Lymph # (Auto) [place] # (Auto) Seg Neutrophils % Seg Neuts % (Manual) Nucleated RBC % Seg Neutrophils # Seg Neutrophils # Man Lymphocytes # (Manual) ABG pH POC ABG pCO2 POC ABG pO2 ABG Hemoglobin ABG Sodium ABG Potassium ABG Glucose Carboxyhemoglobin Sodium Potassium Chloride 97.0 L Carbon Dioxide 31 H BUN 41 H Creatinine 1.4 H Glucose 145 H POC Glucose 135 H 139 H Lactic Acid Calcium Phosphorus 2.20 L AST ALT CK-MB (CK-2) Rel Index Troponin T NT-Pro-B Natriuret Pep Serum Total Protein Total Protein Albumin Eqidv-7-Knrukqgmg Gamma Globulins PEP Interpretation HDL Cholesterol Arterial Blood Glucose Arterial Blood Ionized Calcium Urine WBC (Auto) Urine Creatinine Hepatitis C Antibody 11/27/20 11/28/20 11/28/20 18:41 05:26 06:08 WBC RBC Hgb Hct MCV Lymph % (Auto) [place] % (Auto) Lymph # (Auto) [place] # (Auto) Seg Neutrophils % Seg Neuts % (Manual) Nucleated RBC % Seg Neutrophils # Seg Neutrophils # Man Lymphocytes # (Manual) ABG pH POC ABG pCO2 POC ABG pO2 ABG Hemoglobin ABG Sodium ABG Potassium ABG Glucose Carboxyhemoglobin Sodium Potassium Chloride Carbon Dioxide BUN 45 H Creatinine 1.4 H Glucose 135 H POC Glucose 148 H 143 H Lactic Acid Calcium Phosphorus AST ALT CK-MB (CK-2) Rel Index Troponin T NT-Pro-B Natriuret Pep Serum Total Protein Total Protein Albumin Cgqsu-8-Kcxarttix Gamma Globulins PEP Interpretation HDL Cholesterol Arterial Blood Glucose Arterial Blood Ionized Calcium Urine WBC (Auto) Urine Creatinine Hepatitis C Antibody 11/28/20 11/28/20 11/28/20 11:46 17:31 21:17 WBC RBC Hgb Hct MCV Lymph % (Auto) [place] % (Auto) Lymph # (Auto) [place] # (Auto) Seg Neutrophils % Seg Neuts % (Manual) Nucleated RBC % Seg Neutrophils # Seg Neutrophils # Man Lymphocytes # (Manual) ABG pH POC ABG pCO2 POC ABG pO2 ABG Hemoglobin ABG Sodium ABG Potassium ABG Glucose Carboxyhemoglobin Sodium Potassium Chloride Carbon Dioxide BUN Creatinine Glucose POC Glucose 132 H 156 H 122 H Lactic Acid Calcium Phosphorus AST ALT CK-MB (CK-2) Rel Index Troponin T NT-Pro-B Natriuret Pep Serum Total Protein Total Protein Albumin Sqsnn-2-Tubyiogpt Gamma Globulins PEP Interpretation HDL Cholesterol Arterial Blood Glucose Arterial Blood Ionized Calcium Urine WBC (Auto) Urine Creatinine Hepatitis C Antibody 11/29/20 11/29/20 11/29/20 00:06 04:43 05:15 WBC RBC Hgb Hct MCV Lymph % (Auto) [place] % (Auto) Lymph # (Auto) [place] # (Auto) Seg Neutrophils % Seg Neuts % (Manual) Nucleated RBC % Seg Neutrophils # Seg Neutrophils # Man Lymphocytes # (Manual) ABG pH POC ABG pCO2 POC ABG pO2 ABG Hemoglobin ABG Sodium ABG Potassium ABG Glucose Carboxyhemoglobin Sodium Potassium Chloride 97.7 L Carbon Dioxide BUN 56 H Creatinine 1.6 H Glucose 132 H POC Glucose 114 H 125 H Lactic Acid Calcium Phosphorus AST ALT CK-MB (CK-2) Rel Index Troponin T NT-Pro-B Natriuret Pep Serum Total Protein Total Protein Albumin Bmpvd-9-Lnvjocxqj Gamma Globulins PEP Interpretation HDL Cholesterol Arterial Blood Glucose Arterial Blood Ionized Calcium Urine WBC (Auto) Urine Creatinine Hepatitis C Antibody 11/29/20 11/29/20 11/30/20 12:09 18:12 04:47 WBC RBC Hgb Hct MCV Lymph % (Auto) [place] % (Auto) Lymph # (Auto) [place] # (Auto) Seg Neutrophils % Seg Neuts % (Manual) Nucleated RBC % Seg Neutrophils # Seg Neutrophils # Man Lymphocytes # (Manual) ABG pH POC ABG pCO2 POC ABG pO2 ABG Hemoglobin ABG Sodium ABG Potassium ABG Glucose Carboxyhemoglobin Sodium Potassium Chloride Carbon Dioxide 31 H BUN 59 H Creatinine 1.6 H Glucose 122 H POC Glucose 142 H 132 H Lactic Acid Calcium Phosphorus AST ALT CK-MB (CK-2) Rel Index Troponin T NT-Pro-B Natriuret Pep Serum Total Protein Total Protein Albumin Qwwba-4-Agmapzucv Gamma Globulins PEP Interpretation HDL Cholesterol Arterial Blood Glucose Arterial Blood Ionized Calcium Urine WBC (Auto) Urine Creatinine Hepatitis C Antibody 11/30/20 11/30/20 11/30/20 05:45 11:47 18:16 WBC RBC Hgb Hct MCV Lymph % (Auto) [place] % (Auto) Lymph # (Auto) [place] # (Auto) Seg Neutrophils % Seg Neuts % (Manual) Nucleated RBC % Seg Neutrophils # Seg Neutrophils # Man Lymphocytes # (Manual) ABG pH POC ABG pCO2 POC ABG pO2 ABG Hemoglobin ABG Sodium ABG Potassium ABG Glucose Carboxyhemoglobin Sodium Potassium Chloride Carbon Dioxide BUN Creatinine Glucose POC Glucose 118 H 123 H 126 H Lactic Acid Calcium Phosphorus AST ALT CK-MB (CK-2) Rel Index Troponin T NT-Pro-B Natriuret Pep Serum Total Protein Total Protein Albumin Ljbay-7-Wyxgohwfp Gamma Globulins PEP Interpretation HDL Cholesterol Arterial Blood Glucose Arterial Blood Ionized Calcium Urine WBC (Auto) Urine Creatinine Hepatitis C Antibody 12/01/20 12/01/20 12/01/20 00:11 04:57 05:41 WBC RBC Hgb Hct MCV Lymph % (Auto) [place] % (Auto) Lymph # (Auto) [place] # (Auto) Seg Neutrophils % Seg Neuts % (Manual) Nucleated RBC % Seg Neutrophils # Seg Neutrophils # Man Lymphocytes # (Manual) ABG pH POC ABG pCO2 POC ABG pO2 ABG Hemoglobin ABG Sodium ABG Potassium ABG Glucose Carboxyhemoglobin Sodium Potassium Chloride Carbon Dioxide BUN 52 H Creatinine 1.4 H Glucose 121 H POC Glucose 117 H 120 H Lactic Acid Calcium Phosphorus AST ALT CK-MB (CK-2) Rel Index Troponin T NT-Pro-B Natriuret Pep Serum Total Protein Total Protein Albumin Waqrf-4-Dznzvtcsf Gamma Globulins PEP Interpretation HDL Cholesterol Arterial Blood Glucose Arterial Blood Ionized Calcium Urine WBC (Auto) Urine Creatinine Hepatitis C Antibody 12/01/20 12/02/20 12/02/20 23:35 06:02 08:09 WBC RBC Hgb Hct MCV Lymph % (Auto) [place] % (Auto) Lymph # (Auto) [place] # (Auto) Seg Neutrophils % Seg Neuts % (Manual) Nucleated RBC % Seg Neutrophils # Seg Neutrophils # Man Lymphocytes # (Manual) ABG pH POC ABG pCO2 POC ABG pO2 ABG Hemoglobin ABG Sodium ABG Potassium ABG Glucose Carboxyhemoglobin Sodium Potassium Chloride Carbon Dioxide BUN Creatinine Glucose POC Glucose 117 H 108 H 117 H Lactic Acid Calcium Phosphorus AST ALT CK-MB (CK-2) Rel Index Troponin T NT-Pro-B Natriuret Pep Serum Total Protein Total Protein Albumin Hjysy-8-Rifnprzal Gamma Globulins PEP Interpretation HDL Cholesterol Arterial Blood Glucose Arterial Blood Ionized Calcium Urine WBC (Auto) Urine Creatinine Hepatitis C Antibody 12/02/20 12/02/20 12/02/20 09:40 11:33 17:34 WBC RBC Hgb Hct MCV Lymph % (Auto) [place] % (Auto) Lymph # (Auto) [place] # (Auto) Seg Neutrophils % Seg Neuts % (Manual) Nucleated RBC % Seg Neutrophils # Seg Neutrophils # Man Lymphocytes # (Manual) ABG pH POC ABG pCO2 POC ABG pO2 ABG Hemoglobin ABG Sodium ABG Potassium ABG Glucose Carboxyhemoglobin Sodium Potassium Chloride 97.6 L Carbon Dioxide 35 H BUN 45 H Creatinine Glucose POC Glucose 109 H 124 H Lactic Acid Calcium Phosphorus AST ALT CK-MB (CK-2) Rel Index Troponin T NT-Pro-B Natriuret Pep Serum Total Protein Total Protein Albumin Gaazo-5-Urbmgyxxu Gamma Globulins PEP Interpretation HDL Cholesterol Arterial Blood Glucose Arterial Blood Ionized Calcium Urine WBC (Auto) Urine Creatinine Hepatitis C Antibody 12/03/20 12/03/20 12/03/20 05:40 07:16 16:46 WBC RBC Hgb Hct MCV Lymph % (Auto) [place] % (Auto) Lymph # (Auto) [place] # (Auto) Seg Neutrophils % Seg Neuts % (Manual) Nucleated RBC % Seg Neutrophils # Seg Neutrophils # Man Lymphocytes # (Manual) ABG pH POC ABG pCO2 POC ABG pO2 ABG Hemoglobin ABG Sodium ABG Potassium ABG Glucose Carboxyhemoglobin Sodium Potassium Chloride Carbon Dioxide BUN 44 H Creatinine Glucose 117 H POC Glucose 115 H 106 H Lactic Acid Calcium Phosphorus AST ALT CK-MB (CK-2) Rel Index Troponin T NT-Pro-B Natriuret Pep Serum Total Protein Total Protein Albumin [id number] Gamma Globulins PEP Interpretation HDL Cholesterol Arterial Blood Glucose Arterial Blood Ionized Calcium Urine WBC (Auto) Urine Creatinine Hepatitis C Antibody 12/03/20 12/04/20 12/04/20 21:55 07:53 11:43 WBC RBC Hgb Hct MCV Lymph % (Auto) [place] % (Auto) Lymph # (Auto) [place] # (Auto) Seg Neutrophils % Seg Neuts % (Manual) Nucleated RBC % Seg Neutrophils # Seg Neutrophils # Man Lymphocytes # (Manual) ABG pH POC ABG pCO2 POC ABG pO2 ABG Hemoglobin ABG Sodium ABG Potassium ABG Glucose Carboxyhemoglobin Sodium Potassium Chloride Carbon Dioxide BUN Creatinine Glucose POC Glucose 113 H 110 H 110 H Lactic Acid Calcium Phosphorus AST ALT CK-MB (CK-2) Rel Index Troponin T NT-Pro-B Natriuret Pep Serum Total Protein Total Protein Albumin Dvatb-1-[id number] Gamma Globulins PEP Interpretation HDL Cholesterol Arterial Blood Glucose Arterial Blood Ionized Calcium Urine WBC (Auto) Urine Creatinine Hepatitis C Antibody 12/04/20 12/08/20 12/09/20 17:21 09:43 08:43 WBC RBC Hgb Hct MCV Lymph % (Auto) [place] % (Auto) Lymph # (Auto) [place] # (Auto) Seg Neutrophils % Seg Neuts % (Manual) Nucleated RBC % Seg Neutrophils # Seg Neutrophils # Man Lymphocytes # (Manual) ABG pH POC ABG pCO2 POC ABG pO2 ABG Hemoglobin ABG Sodium ABG Potassium ABG Glucose Carboxyhemoglobin Sodium Potassium Chloride 96.2 L Carbon Dioxide 39 H BUN 34 H Creatinine Glucose POC Glucose 135 H Lactic Acid Calcium Phosphorus AST ALT CK-MB (CK-2) Rel Index Troponin T NT-Pro-B Natriuret Pep 4253 H Serum Total Protein Total Protein Albumin Zeniw-4-Jilajkkpn Gamma Globulins PEP Interpretation HDL Cholesterol Arterial Blood Glucose Arterial Blood Ionized Calcium Urine WBC (Auto) Urine Creatinine Hepatitis C Antibody 12/10/20 12/12/20 14:53 12:05 WBC RBC Hgb Hct MCV Lymph % (Auto) [place] % (Auto) Lymph # (Auto) [place] # (Auto) Seg Neutrophils % Seg Neuts % (Manual) Nucleated RBC % Seg Neutrophils # Seg Neutrophils # Man Lymphocytes # (Manual) ABG pH POC ABG pCO2 POC ABG pO2 ABG Hemoglobin ABG Sodium ABG Potassium ABG Glucose Carboxyhemoglobin Sodium Potassium Chloride 91.9 L 91.9 L Carbon Dioxide 39 H 38 H BUN 46 H 48 H Creatinine Glucose 141 H 142 H POC Glucose Lactic Acid Calcium 8.3 L Phosphorus AST ALT CK-MB (CK-2) Rel Index Troponin T NT-Pro-B Natriuret Pep Serum Total Protein Total Protein Albumin Waxhe-9-Glkmayagg Gamma Globulins PEP Interpretation HDL Cholesterol Arterial Blood Glucose Arterial Blood Ionized Calcium Urine WBC (Auto) Urine Creatinine Hepatitis C Antibody
[2020-12-13] MEDS ORDERED: LACTULOSE 20 GM/30 ML ORAL LIQD PO PRN (17:02)
[2020-12-14] MEDS: hydrALAZINE 20 MG/1 ML INJ IV PRN (00:07)
[2020-12-14] MEDS: methylPREDNISolone Sod Succinate 125 MG/2 ML INJ IV SCH ×5 (00:16→23:45)
[2020-12-14] MEDS: HEPARIN 5,000 UNIT/1 ML VIAL SUB-Q SCH ×3 (06:00→22:28)
[2020-12-14] MEDS: IPRATROPIUM/ALBUTEROL SULFATE 3 ML AMPUL.NEB IH SCH ×3 (09:20→21:04)
[2020-12-14] MEDS: TAMSULOSIN 0.4 MG CAP PO SCH (09:25)
[2020-12-14] MEDS: carvediloL 12.5 MG TAB PO SCH ×2 (09:25→22:29)
[2020-12-14] MEDS: SENNOSIDES/DOCUSATE SODIUM 8.6/50 MG TAB FEEDTUBE SCH ×2 (09:25→22:29)
[2020-12-14] MEDS: QUEtiapine 25 MG TAB PO SCH ×2 (09:25→22:28)
[2020-12-14] MEDS: ASPIRIN 81 MG TAB CHEW PO SCH (09:25)
[2020-12-14] MEDS: LANSOPRAZOLE 30 MG SOLUTAB FEEDTUBE SCH (09:26)
--- NOTE | 2020-12-14 12:10 | Progress Note ---
Assessment and Plan Assessment and Plan --Acute hypoxic respiratory failure/Requiring intubation 11/21/2020 s/p extubation 11/23/2020, patient is on noninvasive ventilation on high flow nasal cannula oxygen Fio2/97% sat 30 L / 60% FiO2 today slightly better 15 L 35 FiO2 O2 sats 94% Wean as tolerated, --Acute exacerbation of COPD; Home oxygen dependent BiPAP as needed, wean as tolerated Pulmonary hygiene, pulmonary critical care following --Hypokalemia; resolved Monitor electrolytes --Acute kidney injury; vasomotor nephropathy Gentle hydration closely monitor renal function --Severe pulmonary hypertension; Management per pulmonary, continue supportive care --Acute metabolic encephalopathy -11/21 CT head shows no acute intracranial abnormality, sinus disease Continue supportive care --NSTEMI type II Presented with [facility] with elevated troponins cardiology patient had a stress test in 2019 which showed no significant ischemia, Echo; EF 50 to 55% severe pulmonary hypertension moderate mitral stenosis may benefit from [facility]ECTOR for evaluation of mitral valve when patient is stable and extubated --Acute kidney injury; present on admission Vasomotor nephropathy Now resolved, normal renal function Avoid nephrotoxins, nephrology following --History of bladder cancer; Indwelling Paulson in place, supportive care Continue Flomax --Urinary tract infection; Continue empiric antibiotics total 5 days Supportive care --Dyslipidemia; Continue statin and low-cholesterol diet --Hypertension; moderate control We will continue current antihypertensives And as needed hydralazine --Hypernatremia ; Patient was hyponatremia on admission ,probably overcorrection Free water via [place], nephrology following Monitor electrolytes --Severe protein calorie malnutrition ; Hypoalbuminemia ,nutrition supplements Nutrition consult and supportive care --DVT prophylaxis; Subcu heparin, SCDs --GI prophylaxis; Continue Prevacid --Full CODE STATUS; Bedside swallow screen, if normal start diet pured/mechanical soft advance as tolerated We will also request physical therapy We will closely monitor the patient and adjust the management as needed Consults and recommendations noted and appreciated Plan of care reviewed with the patient's nurse PT OT when he comes off high flow oxygen DC planning per case management; considering LTAC placement The high probability of a clinically significant, sudden or life threatening deterioration of the [resp, cardiac, nephrology, metabolic] system(s) required my full and direct attention, intervention and personal management. The aggregate critical care time was [34] minutes. This time is in addition to time spent performing reported procedures but includes the following: [x] Data Review and interpretation [x] Patient assessment and monitoring of vital signs [x] Documentation [x] Medication orders and management signed for thank you caregiver Subjective Date of service: 12/14/20 Principal diagnosis: Acute respiratory failure Interval history: Brief history and daily hospital course: 85-year-old male patient with past medical history of COPD on home oxygen, GERD, hypertension, asthma, hyperlipidemia, vasopressin, bladder cancer admitted for acute hypoxic respiratory failure, intubated on 11/21/2020 managed appropriately evaluated by pulmonary critical subsequently extubated on 11/23/2020, today patient is on high flow nasal cannula oxygen, pulmonary crit ical, cardiology and nephrology following the patient 11/23: Patient was extubated, currently on BiPAP Mild distress, wean as tolerated 11/24/2020 Patient on BiPAP S/p extubation 11/25/2020; patient is on BiPAP Mild distress, noncommunicative 11/26/2020; patient is on intermittent BiPAP Currently on high flow nasal cannula oxygen 11/27/2020; patient is more alert and awake Will get swallow screen, if normal start pured diet Transfer the patient to [facility] 11/28/2020; patient is on high flow oxygen slightly better than yesterday Able to tolerate mechanical soft diet when the family comes and helps him DC planning, considering LTAC placement 11/29 Still on HFNC oxygen 11/30 Still on HFNC oxygen 12/01 on 35 liters O2 12/02/2020 Patient on high flow nasal cannula oxygen 714/21; patient remains on high flow nasal cannula oxygen requiring 25 L/FiO2 35%/O2 sats 96 Wean as tolerated, awaiting LTAC placement Patient is hemodynamically and clinically stable to be transferred out of [facility] to cardiac telemetry or medical floor with remote telemetry today. 12/04/2020; remains on high flow oxygen 25 L/35%/96% O2 sats Wean as tolerated, pending LTAC placement consider PT OT once patient's respiratory status is stable 12/05/2020; patient feels slightly better more alert and awake Responding to simple questions appropriately, titrated the oxygen Today patient is requiring 3 to 4 L of nasal cannula oxygen Significantly improved from yesterday when he needed 25 L Physical therapy evaluation and treatment, home oxygen evaluation prior to discharge 12/06/2020; patient is requiring 10 L of supplemental oxygen today Wean as tolerated PT OT evaluation recommendations noted, Possible discharge in 1 to 2 days if stable Patient's son Ana Miller [phone] at the bedside Discussed in detail patient's condition, tests and reports Discharge planning, answered all his questions 12/07/2020; today patient is requiring high flow nasal cannula oxygen, 25 L In mild distress, wean as tolerated to 3 to 4 L nasal cannula DC planning per case management, possible home with home health when patient is medically stable 12/08/2020 today patient is requiring high flow nasal cannula oxygen, but slightly improve d patient is at 15 L O2 PT and OT recommend home health PT OT, wean patient off high flow oxygen Titrate to 3 to 4 L nasal cannula, possible discharge in 1 to 2 days if stable And cleared by pulmonary 12/09/2020; patient continues to require high flow nasal cannula oxygen between 15 to 20 L Management per pulmonary. Wean as tolerated I spoke with bilingual Swazi speaking granddaughter at the bedside, answered all her questions 12/10/2020; no change clinically, continues to require 20 to 30 L of high flow nasal cannula oxygen If no improvement we will consider transferring to IMCU or ICU for close observation after discussing with pulmonary. 12/11/2020 I spoke to bilingual Swazi speaking patient's son Ana Miller [phone] And discussed in detail patient's condition, treatment plan, poor prognosis, plans of Transferring to [facility] when bed is available, and the patient is requiring high flow nasal cannula oxygen He verbalized understanding, full CODE STATUS at this point. Answered all his questions. 12/12/2020; patient is more alert and awake, feels slightly better still remains on high flow oxygen however titrating down Closely monitor, awaiting LTAC placement at [place] , discussed with Swazi- speaking family member at the bedside today Disposition; wean high flow oxygen as tolerated Discharge when patient is stable Follow pulmonary recommendations 12/13/2020 Patient still on high flow oxygen Patient waiting for LTAC placement 12/14/2020 Patient on high flow oxygen 60% FiO2 and 30 L oxygen Waiting for LTAC placement Objective - Constitutional Vitals: Vital Signs - 12hr 12/14/20 12/14/20 12/14/20 00:07 01:31 03:14 Temperature Pulse Rate 82 99 H Respiratory Rate Blood Pressure 196/90 172/85 O2 Sat by Pulse 93 92 Oximetry 12/14/20 12/14/20 12/14/20 05:38 06:12 07:34 Temperature 97.9 F Pulse Rate 98 H Respiratory 22 Rate Blood Pressure 166/72 187/91 O2 Sat by Pulse 93 93 Oximetry 12/14/20 08:40 Temperature Pulse Rate Respiratory Rate Blood Pressure O2 Sat by Pulse 95 Oximetry General appearance: Present: no acute distress, well-nourished - EENT Eyes: PERRL, EOM intact ENT: hearing intact, clear oral mucosa Ears: bilateral: normal - Neck Neck: supple, normal ROM - Respiratory Respiratory effort: normal Respiratory: bilateral: CTA, rhonchi, wheezing - Breasts Breasts: normal - Cardiovascular Heart rate: 78 Rhythm: regular Heart Sounds: Present: S1 & S2. Absent: gallop, rub Extremities: pulses intact, No edema, normal color, Full ROM - Gastrointestinal General gastrointestinal: Present: soft, non-tender, non-distended, normal bowel sounds - Genitourinary Male genitourinary: normal - Integumentary Integumentary: clear, warm, dry - Musculoskeletal Musculoskeletal: 1, strength equal bilaterally - Neurologic Neurologic: moves all extremities - Psychiatric Psychiatric: memory intact, appropriate mood/affect, intact judgment & insight - Labs CBC & Chem 7: 11/28/20 09:21 12/12/20 12:05 HEART Score - HEART Score Troponin: Troponin T 0.021 ng/mL (0.00-0.029) 11/29/20 04:43
--- NOTE | 2020-12-14 12:50 | Progress Note ---
Assessment and Plan 85 y/o citizen of [place] male admitted with acute hypoxic respiratory failure. 12/14/2020: Agitation, confusion disorientation may be related to ICU psychosis. Patient is awake and responsive. Will check a repeat chest x-ray and arterial blood gases tomorrow. Consider small dose of Haldol for possible psychosis 12/13/2020: No new complaints. Still on high flow nasal cannula. Given the body habitus suspect may have obstructive sleep apnea as well. May consider PSG as an outpatient in the future. 12/12/20: Lasix again today. Ordered labs for today. Continue to wean FiO2 for sats >88%. Follow up with CM. Prognosis still remains guarded but more promising now that oxygen requirement is coming down. 12/11/20: Lasix again today. Labs stable on yesterday. Continues to have desats at night. Hesistant to order positive pressure at night as this could make the patient more agitated and worsen oxygenation but may consider if the same thing happens again tonight. Follow up with CM on LTACH as he definitely needs it. Will continue to follow. Guarded prognosis. 12/10/20: BNP elevated, lasix again today. Ordered labs for this am, will review once back. May need to increase night time seroquel as night nurse documented patient taking off cannula constantly but easy redirection. Appeal done by CM. Continue High dose steroids. Guarded prognosis. 12/09/20: Continue High Dose IV steroids. Follow up BNP. Today will give lasix 40mg IV x1. Please ask CM to appeal LTACH denial as patient will need it. After speaking with RT, patient becomes very agitated and frustrated secondary to language barrier and will remove supplemental O2 requiring him to be put on higher numbers to recover. Suggest using language line more often or calling daughter who is in the medical profession and speaks very good romanian. Will continue to follow. 12/08/20: with change in oxygen requirement, will place back on IV steroids. Will order labs including BNP today and give lasix 20mg IV x1. Initial LTACH request was denied, suggest having CM appeal it now that patient is back on HFNC. Will continue to follow. 12/06/20: Steroid taper as follows: 60 daily for 5 days, 40 daily for 5 days, 20 daily for 5 days, 10 daily for 5 days. Resume whatever home regimen patient was on at home. Wean Oxygen for sats >88%, likely patient will be fine on 2-3 liters, does not need 4. Will sign off. Call if questions. 12/05/20: Change to oral steroids starting tomorrow with prolonged taper. Likely dischargeable over the weekend. 12/04/20: LTACH denied. Continue to wean. Continue IV steroids. 12/03/20: Follow up with CM in regards to LTACH. Continue IV steroids. Wean FiO2 as tolerated. PT/OT if not already evaluated. Patient stable enough to transfer to floor. 12/02/20: CM still waiting to hear back from LTACH in regards to auth. Continue to wean FiO2 as tolerated for sats >88%. Continue IV steroids. 12/01/20: Wean HFNC for sats >88%. Spoke with CM about checking on LTACH but patient may be able to be weaned further now while in house. Will speak with RT about this. If placed on salter, may need to consider transfer to medical/surgical floor with remote tele. 11/28/20: Continue to wean HFNC. Agree with holding Precedex, can increase seroquel if needed to help with mood. Hopeful that over the weekend will be down to nasal cannula and can transfer to the floor. CM working on LTACH evaluation. Patient is stable for transfer, if and when accepted. 11/27/20: Will transfer to step down today. Agree with bedside swallow eval now that patient is more awake. Will try bID seroquel to help with mood and agitation. Hopeful Cr has stablized. Continue steroids at 40q8. Consider LTACH evaluation 11/26/20: 11/25/20: Continue bipap for right now. Added precedex and stopped ativan as this may be worsening agitation. Ok with haldol use. Continue daily diuretics to keep patient net negative. Continue ICU monitoring for now. Renal function is better. Guarded prognosis. 11/23/20: Wean sedation to off. If patient can tolerate being off sedation, will attempt PSV trial, otherwise, will likely have to just stop sedation and extubate, will have bipap ready for as needed purposes. Needs chemistry to assess renal function. Out put was good. 1. Repeat ABG later this afternoon and wean FIO2 according (>88%) 2. Stop sedation, need to assess mental state 3. Follow up renal function and urine output. Subjective Date of service: 12/14/20 Principal diagnosis: Acute respiratory failure Interval history: Difficult to communicate due to language barrier. Apparently did not have a good night last night remained very restless confused and disoriented. Oxygen requirement has increased now to high flow nasal cannula at 60% Objective Vital Signs - 12hr 12/14/20 12/14/20 12/14/20 01:31 03:14 05:38 Temperature Pulse Rate 99 H Respiratory Rate Blood Pressure 172/85 166/72 O2 Sat by Pulse 93 92 Oximetry 12/14/20 12/14/20 12/14/20 06:12 07:34 08:00 Temperature 97.9 F Pulse Rate 98 H 92 H Respiratory 22 Rate Blood Pressure 187/91 O2 Sat by Pulse 93 93 Oximetry 12/14/20 12/14/20 08:40 11:44 Temperature 97.8 F Pulse Rate 92 H Respiratory 18 Rate Blood Pressure 161/88 O2 Sat by Pulse 95 96 Oximetry Constitutional: no acute distress, alert, agitated, other Eyes: non-icteric ENT: oropharynx moist, other (Crowded oropharynx) Neck: supple, other (large in circumference) Effort: normal Ascultation: Bilateral: clear, diminished breath sounds, wheezes Percussion: Bilateral: not dull Cardiovascular: other (tachy, no mrg) Gastrointestinal: normoactive bowel sounds, soft, non-tender, non-distended Extremities: no cyanosis, no edema, pink and warm Neurologic: normal mental status, non-focal exam, pupils equal and round Psychiatric: mood appropriate, affect normal CBC and BMP: 11/28/20 09:21 12/12/20 12:05 ABG, PT/INR, D-dimer: ABG ABG pH 7.281 (7.320-7.450) L 11/24/20 01:48 POC ABG pCO2 58.4 mmHg (32.0-48.0) H 11/24/20 01:48 POC ABG pO2 98.1 mmHg (83-108) 11/24/20 01:48 POC ABG HCO3 26.9 11/24/20 01:48 ABG O2 Saturation 96.9 (0-100) 11/24/20 01:48 PT/INR, D-dimer PT 13.5 Sec. (12.2-14.9) 11/21/20 20:50 INR 0.98 (0.87-1.13) 11/21/20 20:50 Abnormal lab findings: Abnormal Labs 11/21/20 11/21/20 11/22/20 20:50 20:50 00:11 WBC RBC 3.48 L Hgb 11.1 L Hct 34.3 L MCV 99 H Lymph % (Auto) 6.8 L [place] % (Auto) Lymph # (Auto) 0.6 L [place] # (Auto) Seg Neutrophils % 85.5 H Seg Neuts % (Manual) Nucleated RBC % Seg Neutrophils # Seg Neutrophils # Man Lymphocytes # (Manual) ABG pH POC ABG pCO2 POC ABG pO2 ABG Hemoglobin ABG Sodium ABG Potassium ABG Glucose Carboxyhemoglobin Sodium 130 L Potassium 7.3 H* Chloride 91.1 L Carbon Dioxide BUN 40 H Creatinine 2.1 H Glucose 195 H POC Glucose Lactic Acid Calcium Phosphorus AST 91 H ALT 65 H CK-MB (CK-2) Rel Index 4.1 H Troponin T 0.045 H NT-Pro-B Natriuret Pep 6998 H Serum Total Protein Total Protein Albumin 3.7 L Rvxib-3-Boabpjhke Gamma Globulins PEP Interpretation HDL Cholesterol 60 H Arterial Blood Glucose Arterial Blood Ionized Calcium Urine WBC (Auto) Urine Creatinine 158.2 H Hepatitis C Antibody 11/22/20 11/22/20 11/22/20 00:23 00:40 01:37 WBC 14.1 H RBC 3.53 L Hgb 11.0 L Hct 34.1 L MCV 97 H Lymph % (Auto) 12.3 L [place] % (Auto) 14.2 H Lymph # (Auto) [place] # (Auto) 2.0 H Seg Neutrophils % 72.3 H Seg Neuts % (Manual) Nucleated RBC % Seg Neutrophils # 10.2 H Seg Neutrophils # Man Lymphocytes # (Manual) ABG pH POC ABG pCO2 POC ABG pO2 ABG Hemoglobin ABG Sodium ABG Potassium ABG Glucose Carboxyhemoglobin Sodium Potassium 5.1 H D Chloride Carbon Dioxide BUN Creatinine Glucose POC Glucose Lactic Acid 2.10 H* Calcium Phosphorus AST ALT CK-MB (CK-2) Rel Index Troponin T NT-Pro-B Natriuret Pep Serum Total Protein Total Protein Albumin Vnmtj-4-Nhjgfatbt Gamma Globulins PEP Interpretation HDL Cholesterol Arterial Blood Glucose Arterial Blood Ionized Calcium Urine WBC (Auto) Urine Creatinine Hepatitis C Antibody 11/22/20 11/22/20 11/22/20 01:37 03:20 05:00 WBC RBC Hgb Hct MCV Lymph % (Auto) [place] % (Auto) Lymph # (Auto) [place] # (Auto) Seg Neutrophils % Seg Neuts % (Manual) Nucleated RBC % Seg Neutrophils # Seg Neutrophils # Man Lymphocytes # (Manual) ABG pH POC ABG pCO2 58.4 H POC ABG pO2 ABG Hemoglobin 11.1 L ABG Sodium 135.1 L ABG Potassium 5.0 H ABG Glucose Carboxyhemoglobin Sodium Potassium 5.1 H Chloride Carbon Dioxide 31 H BUN 40 H Creatinine 2.0 H Glucose 49 L POC Glucose Lactic Acid Calcium Phosphorus AST ALT CK-MB (CK-2) Rel Index Troponin T NT-Pro-B Natriuret Pep Serum Total Protein Total Protein Albumin Janqg-0-Rvhtjmivg Gamma Globulins PEP Interpretation HDL Cholesterol Arterial Blood Glucose Arterial Blood Ionized Calcium Urine WBC (Auto) 33.0 H Urine Creatinine Hepatitis C Antibody 11/22/20 11/22/20 11/22/20 05:00 05:00 05:00 WBC RBC Hgb Hct MCV Lymph % (Auto) [place] % (Auto) Lymph # (Auto) [place] # (Auto) Seg Neutrophils % Seg Neuts % (Manual) Nucleated RBC % Seg Neutrophils # Seg Neutrophils # Man Lymphocytes # (Manual) ABG pH POC ABG pCO2 POC ABG pO2 ABG Hemoglobin ABG Sodium ABG Potassium ABG Glucose Carboxyhemoglobin Sodium 136 L Potassium Chloride 97.8 L Carbon Dioxide BUN 41 H Creatinine 1.8 H 1.8 H Glucose POC Glucose Lactic Acid Calcium 8.2 L Phosphorus AST ALT CK-MB (CK-2) Rel Index Troponin T 0.065 H D NT-Pro-B Natriuret Pep Serum Total Protein Total Protein Albumin Duqup-2-Khkrpmvnz Gamma Globulins PEP Interpretation HDL Cholesterol Arterial Blood Glucose Arterial Blood Ionized Calcium Urine WBC (Auto) Urine Creatinine Hepatitis C Antibody 11/22/20 11/22/20 11/22/20 10:20 10:20 15:00 WBC RBC 3.16 L Hgb 10.2 L Hct 29.9 L MCV 95 H Lymph % (Auto) [place] % (Auto) Lymph # (Auto) [place] # (Auto) Seg Neutrophils % Seg Neuts % (Manual) Nucleated RBC % Seg Neutrophils # Seg Neutrophils # Man Lymphocytes # (Manual) ABG pH 7.501 H POC ABG pCO2 POC ABG pO2 ABG Hemoglobin 10.5 L ABG Sodium 134.9 L ABG Potassium ABG Glucose 115 H Carboxyhemoglobin 0.4 L Sodium Potassium Chloride Carbon Dioxide BUN Creatinine Glucose POC Glucose Lactic Acid Calcium Phosphorus AST ALT CK-MB (CK-2) Rel Index Troponin T 0.078 H NT-Pro-B Natriuret Pep Serum Total Protein Total Protein Albumin Svryo-0-Cvtbwetpy Gamma Globulins PEP Interpretation HDL Cholesterol Arterial Blood Glucose 115 H Arterial Blood Ionized Calcium 4.3 L Urine WBC (Auto) Urine Creatinine Hepatitis C Antibody 11/22/20 11/22/20 11/22/20 16:00 17:45 23:21 WBC RBC Hgb Hct MCV Lymph % (Auto) [place] % (Auto) Lymph # (Auto) [place] # (Auto) Seg Neutrophils % Seg Neuts % (Manual) Nucleated RBC % Seg Neutrophils # Seg Neutrophils # Man Lymphocytes # (Manual) ABG pH POC ABG pCO2 POC ABG pO2 ABG Hemoglobin ABG Sodium ABG Potassium ABG Glucose Carboxyhemoglobin Sodium Potassium Chloride Carbon Dioxide BUN Creatinine Glucose POC Glucose 107 H 115 H Lactic Acid Calcium Phosphorus AST ALT CK-MB (CK-2) Rel Index Troponin T NT-Pro-B Natriuret Pep Serum Total Protein Total Protein Albumin Bfisa-0-Fueuquqmw Gamma Globulins PEP Interpretation HDL Cholesterol Arterial Blood Glucose Arterial Blood Ionized Calcium Urine WBC (Auto) Urine Creatinine Hepatitis C Antibody Reactive A 11/23/20 11/23/20 11/23/20 03:03 05:33 10:00 WBC RBC 3.33 L Hgb 10.6 L Hct 32.2 L MCV 97 H Lymph % (Auto) [place] % (Auto) 15.0 H Lymph # (Auto) [place] # (Auto) 1.5 H Seg Neutrophils % Seg Neuts % (Manual) Nucleated RBC % Seg Neutrophils # Seg Neutrophils # Man Lymphocytes # (Manual) ABG pH POC ABG pCO2 POC ABG pO2 115.8 H ABG Hemoglobin 10.1 L ABG Sodium 135.8 L ABG Potassium ABG Glucose 98 H Carboxyhemoglobin 0.4 L Sodium Potassium Chloride Carbon Dioxide BUN Creatinine Glucose POC Glucose 106 H Lactic Acid Calcium Phosphorus AST ALT CK-MB (CK-2) Rel Index Troponin T NT-Pro-B Natriuret Pep Serum Total Protein Total Protein Albumin Comfj-9-Utjmgtgxb Gamma Globulins PEP Interpretation HDL Cholesterol Arterial Blood Glucose 98 H Arterial Blood Ionized Calcium 4.4 L Urine WBC (Auto) Urine Creatinine Hepatitis C Antibody 11/23/20 11/23/20 11/23/20 10:00 10:00 12:12 WBC RBC Hgb Hct MCV Lymph % (Auto) [place] % (Auto) Lymph # (Auto) [place] # (Auto) Seg Neutrophils % Seg Neuts % (Manual) Nucleated RBC % Seg Neutrophils # Seg Neutrophils # Man Lymphocytes # (Manual) ABG pH POC ABG pCO2 POC ABG pO2 ABG Hemoglobin ABG Sodium ABG Potassium ABG Glucose Carboxyhemoglobin Sodium Potassium Chloride Carbon Dioxide BUN 22 H Creatinine Glucose 101 H POC Glucose 119 H Lactic Acid Calcium 7.9 L Phosphorus AST ALT CK-MB (CK-2) Rel Index Troponin T NT-Pro-B Natriuret Pep Serum Total Protein 5.3 L Total Protein 5.5 L Albumin 2.8 L 2.8 L Ruvbk-8-Tpjroqtsm 0.4 H Gamma Globulins 0.7 L PEP Interpretation see below H HDL Cholesterol Arterial Blood Glucose Arterial Blood Ionized Calcium Urine WBC (Auto) Urine Creatinine Hepatitis C Antibody 11/23/20 11/23/20 11/24/20 18:21 23:28 01:48 WBC RBC Hgb Hct MCV Lymph % (Auto) [place] % (Auto) Lymph # (Auto) [place] # (Auto) Seg Neutrophils % Seg Neuts % (Manual) Nucleated RBC % Seg Neutrophils # Seg Neutrophils # Man Lymphocytes # (Manual) ABG pH 7.281 L POC ABG pCO2 58.4 H POC ABG pO2 ABG Hemoglobin 11.8 L ABG Sodium ABG Potassium ABG Glucose 101 H Carboxyhemoglobin Sodium Potassium Chloride Carbon Dioxide BUN Creatinine Glucose POC Glucose 106 H 108 H Lactic Acid Calcium Phosphorus AST ALT CK-MB (CK-2) Rel Index Troponin T NT-Pro-B Natriuret Pep Serum Total Protein Total Protein Albumin Tdmls-1-Aipqfqdpc Gamma Globulins PEP Interpretation HDL Cholesterol Arterial Blood Glucose 101 H Arterial Blood Ionized Calcium Urine WBC (Auto) Urine Creatinine Hepatitis C Antibody 11/24/20 11/24/20 11/25/20 09:58 09:58 00:29 WBC RBC Hgb Hct MCV Lymph % (Auto) [place] % (Auto) Lymph # (Auto) [place] # (Auto) Seg Neutrophils % Seg Neuts % (Manual) Nucleated RBC % Seg Neutrophils # Seg Neutrophils # Man Lymphocytes # (Manual) ABG pH POC ABG pCO2 POC ABG pO2 ABG Hemoglobin ABG Sodium ABG Potassium ABG Glucose Carboxyhemoglobin Sodium 148 H Potassium Chloride Carbon Dioxide 34 H D BUN Creatinine Glucose POC Glucose 111 H Lactic Acid 0.60 L Calcium Phosphorus AST ALT CK-MB (CK-2) Rel Index Troponin T NT-Pro-B Natriuret Pep Serum Total Protein Total Protein Albumin Ugwvd-3-Csvuxiqmf Gamma Globulins PEP Interpretation HDL Cholesterol Arterial Blood Glucose Arterial Blood Ionized Calcium Urine WBC (Auto) Urine Creatinine Hepatitis C Antibody 11/25/20 11/25/20 11/25/20 05:48 08:18 08:18 WBC 13.2 H RBC 3.56 L Hgb 10.9 L Hct 34.0 L MCV 96 H Lymph % (Auto) [place] % (Auto) Lymph # (Auto) [place] # (Auto) Seg Neutrophils % Seg Neuts % (Manual) 98.0 H Nucleated RBC % 1.0 H Seg Neutrophils # Seg Neutrophils # Man 12.9 H Lymphocytes # (Manual) 0.0 L ABG pH POC ABG pCO2 POC ABG pO2 ABG Hemoglobin ABG Sodium ABG Potassium ABG Glucose Carboxyhemoglobin Sodium 147 H Potassium Chloride Carbon Dioxide 32 H BUN 26 H Creatinine Glucose 151 H POC Glucose 148 H Lactic Acid Calcium Phosphorus AST ALT CK-MB (CK-2) Rel Index Troponin T NT-Pro-B Natriuret Pep Serum Total Protein Total Protein 6.0 L Albumin 3.7 L Uterf-2-Keibcbjqv Gamma Globulins PEP Interpretation HDL Cholesterol Arterial Blood Glucose Arterial Blood Ionized Calcium Urine WBC (Auto) Urine Creatinine Hepatitis C Antibody 11/25/20 11/25/20 11/25/20 11:34 18:03 23:15 WBC RBC Hgb Hct MCV Lymph % (Auto) [place] % (Auto) Lymph # (Auto) [place] # (Auto) Seg Neutrophils % Seg Neuts % (Manual) Nucleated RBC % Seg Neutrophils # Seg Neutrophils # Man Lymphocytes # (Manual) ABG pH POC ABG pCO2 POC ABG pO2 ABG Hemoglobin ABG Sodium ABG Potassium ABG Glucose Carboxyhemoglobin Sodium Potassium Chloride Carbon Dioxide BUN Creatinine Glucose POC Glucose 144 H 147 H 158 H Lactic Acid Calcium Phosphorus AST ALT CK-MB (CK-2) Rel Index Troponin T NT-Pro-B Natriuret Pep Serum Total Protein Total Protein Albumin Whvxi-3-Dikpvcsgx Gamma Globulins PEP Interpretation HDL Cholesterol Arterial Blood Glucose Arterial Blood Ionized Calcium Urine WBC (Auto) Urine Creatinine Hepatitis C Antibody 11/26/20 11/26/20 11/26/20 05:07 06:22 06:22 WBC 12.3 H RBC 3.52 L Hgb 11.1 L Hct 33.6 L MCV 95 H Lymph % (Auto) [place] % (Auto) Lymph # (Auto) [place] # (Auto) Seg Neutrophils % Seg Neuts % (Manual) Nucleated RBC % Seg Neutrophils # Seg Neutrophils # Man Lymphocytes # (Manual) ABG pH POC ABG pCO2 POC ABG pO2 ABG Hemoglobin ABG Sodium ABG Potassium ABG Glucose Carboxyhemoglobin Sodium Potassium 3.3 L Chloride 95.8 L Carbon Dioxide 33 H BUN 35 H Creatinine 1.4 H Glucose 185 H POC Glucose 184 H Lactic Acid Calcium Phosphorus AST ALT CK-MB (CK-2) Rel Index Troponin T 0.036 H D NT-Pro-B Natriuret Pep Serum Total Protein Total Protein 6.2 L Albumin 3.1 L Obpdm-0-Urlbzgkxo Gamma Globulins PEP Interpretation HDL Cholesterol Arterial Blood Glucose Arterial Blood Ionized Calcium Urine WBC (Auto) Urine Creatinine Hepatitis C Antibody 11/26/20 11/26/20 11/26/20 12:52 17:30 23:14 WBC RBC Hgb Hct MCV Lymph % (Auto) [place] % (Auto) Lymph # (Auto) [place] # (Auto) Seg Neutrophils % Seg Neuts % (Manual) Nucleated RBC % Seg Neutrophils # Seg Neutrophils # Man Lymphocytes # (Manual) ABG pH POC ABG pCO2 POC ABG pO2 ABG Hemoglobin ABG Sodium ABG Potassium ABG Glucose Carboxyhemoglobin Sodium Potassium Chloride Carbon Dioxide BUN Creatinine Glucose POC Glucose 170 H 133 H 149 H Lactic Acid Calcium Phosphorus AST ALT CK-MB (CK-2) Rel Index Troponin T NT-Pro-B Natriuret Pep Serum Total Protein Total Protein Albumin Flkqq-8-Nxwnenhah Gamma Globulins PEP Interpretation HDL Cholesterol Arterial Blood Glucose Arterial Blood Ionized Calcium Urine WBC (Auto) Urine Creatinine Hepatitis C Antibody 11/27/20 11/27/20 11/27/20 05:35 08:03 12:02 WBC RBC Hgb Hct MCV Lymph % (Auto) [place] % (Auto) Lymph # (Auto) [place] # (Auto) Seg Neutrophils % Seg Neuts % (Manual) Nucleated RBC % Seg Neutrophils # Seg Neutrophils # Man Lymphocytes # (Manual) ABG pH POC ABG pCO2 POC ABG pO2 ABG Hemoglobin ABG Sodium ABG Potassium ABG Glucose Carboxyhemoglobin Sodium Potassium Chloride 97.0 L Carbon Dioxide 31 H BUN 41 H Creatinine 1.4 H Glucose 145 H POC Glucose 135 H 139 H Lactic Acid Calcium Phosphorus 2.20 L AST ALT CK-MB (CK-2) Rel Index Troponin T NT-Pro-B Natriuret Pep Serum Total Protein Total Protein Albumin Ajtof-9-Hnkyzlhjn Gamma Globulins PEP Interpretation HDL Cholesterol Arterial Blood Glucose Arterial Blood Ionized Calcium Urine WBC (Auto) Urine Creatinine Hepatitis C Antibody 11/27/20 11/28/20 11/28/20 18:41 05:26 06:08 WBC RBC Hgb Hct MCV Lymph % (Auto) [place] % (Auto) Lymph # (Auto) [place] # (Auto) Seg Neutrophils % Seg Neuts % (Manual) Nucleated RBC % Seg Neutrophils # Seg Neutrophils # Man Lymphocytes # (Manual) ABG pH POC ABG pCO2 POC ABG pO2 ABG Hemoglobin ABG Sodium ABG Potassium ABG Glucose Carboxyhemoglobin Sodium Potassium Chloride Carbon Dioxide BUN 45 H Creatinine 1.4 H Glucose 135 H POC Glucose 148 H 143 H Lactic Acid Calcium Phosphorus AST ALT CK-MB (CK-2) Rel Index Troponin T NT-Pro-B Natriuret Pep Serum Total Protein Total Protein Albumin Xdonh-3-Vmseijfvy Gamma Globulins PEP Interpretation HDL Cholesterol Arterial Blood Glucose Arterial Blood Ionized Calcium Urine WBC (Auto) Urine Creatinine Hepatitis C Antibody 11/28/20 11/28/20 11/28/20 11:46 17:31 21:17 WBC RBC Hgb Hct MCV Lymph % (Auto) [place] % (Auto) Lymph # (Auto) [place] # (Auto) Seg Neutrophils % Seg Neuts % (Manual) Nucleated RBC % Seg Neutrophils # Seg Neutrophils # Man Lymphocytes # (Manual) ABG pH POC ABG pCO2 POC ABG pO2 ABG Hemoglobin ABG Sodium ABG Potassium ABG Glucose Carboxyhemoglobin Sodium Potassium Chloride Carbon Dioxide BUN Creatinine Glucose POC Glucose 132 H 156 H 122 H Lactic Acid Calcium Phosphorus AST ALT CK-MB (CK-2) Rel Index Troponin T NT-Pro-B Natriuret Pep Serum Total Protein Total Protein Albumin Ugrue-7-Picazmekb Gamma Globulins PEP Interpretation HDL Cholesterol Arterial Blood Glucose Arterial Blood Ionized Calcium Urine WBC (Auto) Urine Creatinine Hepatitis C Antibody 11/29/20 11/29/20 11/29/20 00:06 04:43 05:15 WBC RBC Hgb Hct MCV Lymph % (Auto) [place] % (Auto) Lymph # (Auto) [place] # (Auto) Seg Neutrophils % Seg Neuts % (Manual) Nucleated RBC % Seg Neutrophils # Seg Neutrophils # Man Lymphocytes # (Manual) ABG pH POC ABG pCO2 POC ABG pO2 ABG Hemoglobin ABG Sodium ABG Potassium ABG Glucose Carboxyhemoglobin Sodium Potassium Chloride 97.7 L Carbon Dioxide BUN 56 H Creatinine 1.6 H Glucose 132 H POC Glucose 114 H 125 H Lactic Acid Calcium Phosphorus AST ALT CK-MB (CK-2) Rel Index Troponin T NT-Pro-B Natriuret Pep Serum Total Protein Total Protein Albumin Faehh-4-Vkysndygx Gamma Globulins PEP Interpretation HDL Cholesterol Arterial Blood Glucose Arterial Blood Ionized Calcium Urine WBC (Auto) Urine Creatinine Hepatitis C Antibody 11/29/20 11/29/20 11/30/20 12:09 18:12 04:47 WBC RBC Hgb Hct MCV Lymph % (Auto) [place] % (Auto) Lymph # (Auto) [place] # (Auto) Seg Neutrophils % Seg Neuts % (Manual) Nucleated RBC % Seg Neutrophils # Seg Neutrophils # Man Lymphocytes # (Manual) ABG pH POC ABG pCO2 POC ABG pO2 ABG Hemoglobin ABG Sodium ABG Potassium ABG Glucose Carboxyhemoglobin Sodium Potassium Chloride Carbon Dioxide 31 H BUN 59 H Creatinine 1.6 H Glucose 122 H POC Glucose 142 H 132 H Lactic Acid Calcium Phosphorus AST ALT CK-MB (CK-2) Rel Index Troponin T NT-Pro-B Natriuret Pep Serum Total Protein Total Protein Albumin Rsewq-3-Hwvevkjog Gamma Globulins PEP Interpretation HDL Cholesterol Arterial Blood Glucose Arterial Blood Ionized Calcium Urine WBC (Auto) Urine Creatinine Hepatitis C Antibody 11/30/20 11/30/20 11/30/20 05:45 11:47 18:16 WBC RBC Hgb Hct MCV Lymph % (Auto) [place] % (Auto) Lymph # (Auto) [place] # (Auto) Seg Neutrophils % Seg Neuts % (Manual) Nucleated RBC % Seg Neutrophils # Seg Neutrophils # Man Lymphocytes # (Manual) ABG pH POC ABG pCO2 POC ABG pO2 ABG Hemoglobin ABG Sodium ABG Potassium ABG Glucose Carboxyhemoglobin Sodium Potassium Chloride Carbon Dioxide BUN Creatinine Glucose POC Glucose 118 H 123 H 126 H Lactic Acid Calcium Phosphorus AST ALT CK-MB (CK-2) Rel Index Troponin T NT-Pro-B Natriuret Pep Serum Total Protein Total Protein Albumin Shxyw-4-Ewgajslsa Gamma Globulins PEP Interpretation HDL Cholesterol Arterial Blood Glucose Arterial Blood Ionized Calcium Urine WBC (Auto) Urine Creatinine Hepatitis C Antibody 12/01/20 12/01/20 12/01/20 00:11 04:57 05:41 WBC RBC Hgb Hct MCV Lymph % (Auto) [place] % (Auto) Lymph # (Auto) [place] # (Auto) Seg Neutrophils % Seg Neuts % (Manual) Nucleated RBC % Seg Neutrophils # Seg Neutrophils # Man Lymphocytes # (Manual) ABG pH POC ABG pCO2 POC ABG pO2 ABG Hemoglobin ABG Sodium ABG Potassium ABG Glucose Carboxyhemoglobin Sodium Potassium Chloride Carbon Dioxide BUN 52 H Creatinine 1.4 H Glucose 121 H POC Glucose 117 H 120 H Lactic Acid Calcium Phosphorus AST ALT CK-MB (CK-2) Rel Index Troponin T NT-Pro-B Natriuret Pep Serum Total Protein Total Protein Albumin Rbmrd-5-Jyijgvari Gamma Globulins PEP Interpretation HDL Cholesterol Arterial Blood Glucose Arterial Blood Ionized Calcium Urine WBC (Auto) Urine Creatinine Hepatitis C Antibody 12/01/20 12/02/20 12/02/20 23:35 06:02 08:09 WBC RBC Hgb Hct MCV Lymph % (Auto) [place] % (Auto) Lymph # (Auto) [place] # (Auto) Seg Neutrophils % Seg Neuts % (Manual) Nucleated RBC % Seg Neutrophils # Seg Neutrophils # Man Lymphocytes # (Manual) ABG pH POC ABG pCO2 POC ABG pO2 ABG Hemoglobin ABG Sodium ABG Potassium ABG Glucose Carboxyhemoglobin Sodium Potassium Chloride Carbon Dioxide BUN Creatinine Glucose POC Glucose 117 H 108 H 117 H Lactic Acid Calcium Phosphorus AST ALT CK-MB (CK-2) Rel Index Troponin T NT-Pro-B Natriuret Pep Serum Total Protein Total Protein Albumin Dmobs-2-Pbgoxpvgh Gamma Globulins PEP Interpretation HDL Cholesterol Arterial Blood Glucose Arterial Blood Ionized Calcium Urine WBC (Auto) Urine Creatinine Hepatitis C Antibody 12/02/20 12/02/20 12/02/20 09:40 11:33 17:34 WBC RBC Hgb Hct MCV Lymph % (Auto) [place] % (Auto) Lymph # (Auto) [place] # (Auto) Seg Neutrophils % Seg Neuts % (Manual) Nucleated RBC % Seg Neutrophils # Seg Neutrophils # Man Lymphocytes # (Manual) ABG pH POC ABG pCO2 POC ABG pO2 ABG Hemoglobin ABG Sodium ABG Potassium ABG Glucose Carboxyhemoglobin Sodium Potassium Chloride 97.6 L Carbon Dioxide 35 H BUN 45 H Creatinine Glucose POC Glucose 109 H 124 H Lactic Acid Calcium Phosphorus AST ALT CK-MB (CK-2) Rel Index Troponin T NT-Pro-B Natriuret Pep Serum Total Protein Total Protein Albumin Fplwd-7-Deyvvpooi Gamma Globulins PEP Interpretation HDL Cholesterol Arterial Blood Glucose Arterial Blood Ionized Calcium Urine WBC (Auto) Urine Creatinine Hepatitis C Antibody 12/03/20 12/03/20 12/03/20 05:40 07:16 16:46 WBC RBC Hgb Hct MCV Lymph % (Auto) [place] % (Auto) Lymph # (Auto) [place] # (Auto) Seg Neutrophils % Seg Neuts % (Manual) Nucleated RBC % Seg Neutrophils # Seg Neutrophils # Man Lymphocytes # (Manual) ABG pH POC ABG pCO2 POC ABG pO2 ABG Hemoglobin ABG Sodium ABG Potassium ABG Glucose Carboxyhemoglobin Sodium Potassium Chloride Carbon Dioxide BUN 44 H Creatinine Glucose 117 H POC Glucose 115 H 106 H Lactic Acid Calcium Phosphorus AST ALT CK-MB (CK-2) Rel Index Troponin T NT-Pro-B Natriuret Pep Serum Total Protein Total Protein Albumin Vkyvy-[id number]-Pmixbiodc Gamma Globulins PEP Interpretation HDL Cholesterol Arterial Blood Glucose Arterial Blood Ionized Calcium Urine WBC (Auto) Urine Creatinine Hepatitis C Antibody 12/03/20 12/04/20 12/04/20 21:55 07:53 11:43 WBC RBC Hgb Hct MCV Lymph % (Auto) [place] % (Auto) Lymph # (Auto) [place] # (Auto) Seg Neutrophils % Seg Neuts % (Manual) Nucleated RBC % Seg Neutrophils # Seg Neutrophils # Man Lymphocytes # (Manual) ABG pH POC ABG pCO2 POC ABG pO2 ABG Hemoglobin ABG Sodium ABG Potassium ABG Glucose Carboxyhemoglobin Sodium Potassium Chloride Carbon Dioxide BUN Creatinine Glucose POC Glucose 113 H 110 H 110 H Lactic Acid Calcium Phosphorus AST ALT CK-MB (CK-2) Rel Index Troponin T NT-Pro-B Natriuret Pep Serum Total Protein Total Protein Albumin Kyytz-5-Mrqrjyson Gamma Globulins PEP Interpretation HDL Cholesterol Arterial Blood Glucose Arterial Blood Ionized Calcium Urine WBC (Auto) Urine Creatinine Hepatitis C Antibody 12/04/20 12/08/20 12/09/20 17:21 09:43 08:43 WBC RBC Hgb Hct MCV Lymph % (Auto) [place] % (Auto) Lymph # (Auto) [place] # (Auto) Seg Neutrophils % Seg Neuts % (Manual) Nucleated RBC % Seg Neutrophils # Seg Neutrophils # Man Lymphocytes # (Manual) ABG pH POC ABG pCO2 POC ABG pO2 ABG Hemoglobin ABG Sodium ABG Potassium ABG Glucose Carboxyhemoglobin Sodium Potassium Chloride 96.2 L Carbon Dioxide 39 H BUN 34 H Creatinine Glucose POC Glucose 135 H Lactic Acid Calcium Phosphorus AST ALT CK-MB (CK-2) Rel Index Troponin T NT-Pro-B Natriuret Pep 4253 H Serum Total Protein Total Protein Albumin Sabxp-7-Jifvikcyi Gamma Globulins PEP Interpretation HDL Cholesterol Arterial Blood Glucose Arterial Blood Ionized Calcium Urine WBC (Auto) Urine Creatinine Hepatitis C Antibody 12/10/20 12/12/20 14:53 12:05 WBC RBC Hgb Hct MCV Lymph % (Auto) [place] % (Auto) Lymph # (Auto) [place] # (Auto) Seg Neutrophils % Seg Neuts % (Manual) Nucleated RBC % Seg Neutrophils # Seg Neutrophils # Man Lymphocytes # (Manual) ABG pH POC ABG pCO2 POC ABG pO2 ABG Hemoglobin ABG Sodium ABG Potassium ABG Glucose Carboxyhemoglobin Sodium Potassium Chloride 91.9 L 91.9 L Carbon Dioxide 39 H 38 H BUN 46 H 48 H Creatinine Glucose 141 H 142 H POC Glucose Lactic Acid Calcium 8.3 L Phosphorus AST ALT CK-MB (CK-2) Rel Index Troponin T NT-Pro-B Natriuret Pep Serum Total Protein Total Protein Albumin Vgoju-8-Ylzliqlja Gamma Globulins PEP Interpretation HDL Cholesterol Arterial Blood Glucose Arterial Blood Ionized Calcium Urine WBC (Auto) Urine Creatinine Hepatitis C Antibody
[2020-12-14] MEDS: BUDESONIDE 0.5 MG/2 ML NEBU IH SCH ×2 (13:15→21:04)
[2020-12-14] MEDS: ACETAMINOPHEN 325 MG TAB PO PRN ×2 (13:26→22:28)
[2020-12-15] MEDS: methylPREDNISolone Sod Succinate 125 MG/2 ML INJ IV SCH ×3 (05:39→16:59)
[2020-12-15] MEDS: HEPARIN 5,000 UNIT/1 ML VIAL SUB-Q SCH ×3 (05:39→21:50)
[2020-12-15] MEDS: IPRATROPIUM/ALBUTEROL SULFATE 3 ML AMPUL.NEB IH SCH ×3 (07:55→21:01)
[2020-12-15] MEDS: BUDESONIDE 0.5 MG/2 ML NEBU IH SCH ×2 (07:55→21:01)
[2020-12-15] MEDS: carvediloL 12.5 MG TAB PO SCH ×2 (09:00→21:50)
[2020-12-15] MEDS: TAMSULOSIN 0.4 MG CAP PO SCH (09:00)
[2020-12-15] MEDS: QUEtiapine 25 MG TAB PO SCH ×2 (09:00→21:51)
[2020-12-15] MEDS: LANSOPRAZOLE 30 MG SOLUTAB FEEDTUBE SCH (09:00)
[2020-12-15] MEDS: ASPIRIN 81 MG TAB CHEW PO SCH (09:00)
[2020-12-15] MEDS: SENNOSIDES/DOCUSATE SODIUM 8.6/50 MG TAB FEEDTUBE SCH ×2 (09:00→21:50)
--- NOTE | 2020-12-15 09:22 | XRay Report ---
CHEST 1 VIEW INDICATION: resp. failure. COMPARISON: 12/08/2020 FINDINGS: Support devices: None. Heart: Stable heart size with surgical changes. Lungs/Pleura: The left lung is clear with resolution of left basilar atelectasis or infiltrate. Right infrahilar infiltrate has decreased by 50%. No large pleural effusion or pneumothorax. Additional findings: None. IMPRESSION: Improvement in the lower lung opacities as described. No new acute process. Signer Name: Huan Talbot Jr, MD Signed: 12/15/2020 9:18 AM Workstation Name: [id number]
--- NOTE | 2020-12-15 11:30 | Progress Note ---
Assessment and Plan 85 y/o bulgarian male admitted with acute hypoxic respiratory failure. 12/15/20: Lasix 40 today. Continue high dose steroids. Wean FiO2 and Flow for sats >88%. Ok with sitting up in chair if patient will cooperate. PT/OT. Hopeful insurer will approve LTACH soon as patient really would benefit from this. 12/12/20: Lasix again today. Ordered labs for today. Continue to wean FiO2 for sats >88%. Follow up with CM. Prognosis still remains guarded but more promising now that oxygen requirement is coming down. 12/11/20: Lasix again today. Labs stable on yesterday. Continues to have desats at night. Hesistant to order positive pressure at night as this could make the patient more agitated and worsen oxygenation but may consider if the same thing happens again tonight. Follow up with CM on LTACH as he definitely needs it. Will continue to follow. Guarded prognosis. 12/10/20: BNP elevated, lasix again today. Ordered labs for this am, will review once back. May need to increase night time seroquel as night nurse documented patient taking off cannula constantly but easy redirection. Appeal done by CM. Continue High dose steroids. Guarded prognosis. 12/09/20: Continue High Dose IV steroids. Follow up BNP. Today will give lasix 40mg IV x1. Please ask CM to appeal LTACH denial as patient will need it. A fter speaking with RT, patient becomes very agitated and frustrated secondary to language barrier and will remove supplemental O2 requiring him to be put on higher numbers to recover. Suggest using language line more often or calling daughter who is in the medical profession and speaks very good ukrainian. Will continue to follow. 12/08/20: with change in oxygen requirement, will place back on IV steroids. Will order labs including BNP today and give lasix 20mg IV x1. Initial LTACH request was denied, suggest having CM appeal it now that patient is back on HFNC. Will continue to follow. 12/06/20: Steroid taper as follows: 60 daily for 5 days, 40 daily for 5 days, 20 daily for 5 days, 10 daily for 5 days. Resume whatever home regimen patient was on at home. Wean Oxygen for sats >88%, likely patient will be fine on 2-3 liters, does not need 4. Will sign off. Call if questions. 12/05/20: Change to oral steroids starting tomorrow with prolonged taper. Likely dischargeable over the weekend. 12/04/20: LTACH denied. Continue to wean. Continue IV steroids. 12/03/20: Follow up with CM in regards to LTACH. Continue IV steroids. Wean FiO2 as tolerated. PT/OT if not already evaluated. Patient stable enough to transfer to floor. 12/02/20: CM still waiting to hear back from LTACH in regards to auth. Continue to wean FiO2 as tolerated for sats >88%. Continue IV steroids. 12/01/20: Wean HFNC for sats >88%. Spoke with CM about checking on LTACH but patient may be able to be weaned further now while in house. Will speak with RT about this. If placed on salter, may need to consider transfer to medical/surgical floor with remote tele. 11/28/20: Continue to wean HFNC. Agree with holding Precedex, can increase seroquel if needed to help with mood. Hopeful that over the weekend will be down to nasal cannula and can transfer to the floor. CM working on LTACH eval uation. Patient is stable for transfer, if and when accepted. 11/27/20: Will transfer to step down today. Agree with bedside swallow eval now that patient is more awake. Will try bID seroquel to help with mood and agitation. Hopeful Cr has stablized. Continue steroids at 40q8. Consider LTACH evaluation 11/26/20: 11/25/20: Continue bipap for right now. Added precedex and stopped ativan as t his may be worsening agitation. Ok with haldol use. Continue daily diuretics to keep patient net negative. Continue ICU monitoring for now. Renal function is better. Guarded prognosis. 11/23/20: Wean sedation to off. If patient can tolerate being off sedation, will attempt PSV trial, otherwise, will likely have to just stop sedation and extubate, will have bipap ready for as needed purposes. Needs chemistry to assess renal function. Out put was good. 1. Repeat ABG later this afternoon and wean FIO2 according (>88%) 2. Stop sedation, need to assess mental state 3. Follow up renal function and urine output. 4. Guarded prognosis, this is likely acute on chronic respiratory failure. cct 31 minutes. Subjective Date of service: 12/15/20 Principal diagnosis: Acute respiratory failure Interval history: Was down to 20 and 45% on Tuesday. Tuesday found with oxygen off so bumped up to 30 and 60 and no further weaning since. Objective Vital Signs - 12hr 12/15/20 12/15/20 12/15/20 02:00 05:44 08:11 Temperature 98.3 F 97.4 F L Pulse Rate 88 85 Pulse Rate [ From Monitor] Respiratory 22 19 Rate Blood Pressure 164/86 175/88 O2 Sat by Pulse 97 95 98 Oximetry 12/15/20 12/15/20 09:00 10:00 Temperature Pulse Rate 85 Pulse Rate [ 87 From Monitor] Respiratory 17 Rate Blood Pressure 159/71 O2 Sat by Pulse Oximetry Constitutional: no acute distress, alert, agitated, other Eyes: non-icteric ENT: oropharynx moist, other (Crowded oropharynx) Neck: supple, other (large in circumference) Effort: normal Ascultation: Bilateral: clear, diminished breath sounds, wheezes Percussion: Bilateral: not dull Cardiovascular: other (tachy, no mrg) Gastrointestinal: normoactive bowel sounds, soft, non-tender, non-distended Extremities: no cyanosis, no edema, pink and warm Neurologic: normal mental status, non-focal exam, pupils equal and round Psychiatric: mood appropriate, affect normal CBC and BMP: 11/28/20 09:21 12/12/20 12:05 ABG, PT/INR, D-dimer: ABG ABG pH 7.470 (7.320-7.450) H 12/15/20 10:20 POC ABG pCO2 53.3 mmHg (32.0-48.0) H 12/15/20 10:20 POC ABG pO2 82.4 mmHg (83-108) L 12/15/20 10:20 POC ABG HCO3 37.9 12/15/20 10:20 ABG O2 Saturation 95.7 (0-100) 12/15/20 10:20 PT/INR, D-dimer PT 13.5 Sec. (12.2-14.9) 11/21/20 20:50 INR 0.98 (0.87-1.13) 11/21/20 20:50 Abnormal lab findings: Abnormal Labs 11/21/20 11/21/20 11/22/20 20:50 20:50 00:11 WBC RBC 3.48 L Hgb 11.1 L Hct 34.3 L MCV 99 H Lymph % (Auto) 6.8 L [place] % (Auto) Lymph # (Auto) 0.6 L [place] # (Auto) Seg Neutrophils % 85.5 H Seg Neuts % (Manual) Nucleated RBC % Seg Neutrophils # Seg Neutrophils # Man Lymphocytes # (Manual) ABG pH POC ABG pCO2 POC ABG pO2 ABG Hemoglobin ABG Sodium ABG Potassium ABG Chloride ABG Glucose Carboxyhemoglobin Sodium 130 L Potassium 7.3 H* Chloride 91.1 L Carbon Dioxide BUN 40 H Creatinine 2.1 H Glucose 195 H POC Glucose Lactic Acid Calcium Phosphorus AST 91 H ALT 65 H CK-MB (CK-2) Rel Index 4.1 H Troponin T 0.045 H NT-Pro-B Natriuret Pep 6998 H Serum Total Protein Total Protein Albumin 3.7 L Uhzxu-5-Ydrlnjgck Gamma Globulins PEP Interpretation HDL Cholesterol 60 H Arterial Blood Glucose Arterial Blood Ionized Calcium Urine WBC (Auto) Urine Creatinine 158.2 H Hepatitis C Antibody 11/22/20 11/22/20 11/22/20 00:23 00:40 01:37 WBC 14.1 H RBC 3.53 L Hgb 11.0 L Hct 34.1 L MCV 97 H Lymph % (Auto) 12.3 L [place] % (Auto) 14.2 H Lymph # (Auto) [place] # (Auto) 2.0 H Seg Neutrophils % 72.3 H Seg Neuts % (Manual) Nucleated RBC % Seg Neutrophils # 10.2 H Seg Neutrophils # Man Lymphocytes # (Manual) ABG pH POC ABG pCO2 POC ABG pO2 ABG Hemoglobin ABG Sodium ABG Potassium ABG Chloride ABG Glucose Carboxyhemoglobin Sodium Potassium 5.1 H D Chloride Carbon Dioxide BUN Creatinine Glucose POC Glucose Lactic Acid 2.10 H* Calcium Phosphorus AST ALT CK-MB (CK-2) Rel Index Troponin T NT-Pro-B Natriuret Pep Serum Total Protein Total Protein Albumin Uxttt-0-Fmkosxnvq Gamma Globulins PEP Interpretation HDL Cholesterol Arterial Blood Glucose Arterial Blood Ionized Calcium Urine WBC (Auto) Urine Creatinine Hepatitis C Antibody 11/22/20 11/22/20 11/22/20 01:37 03:20 05:00 WBC RBC Hgb Hct MCV Lymph % (Auto) [place] % (Auto) Lymph # (Auto) [place] # (Auto) Seg Neutrophils % Seg Neuts % (Manual) Nucleated RBC % Seg Neutrophils # Seg Neutrophils # Man Lymphocytes # (Manual) ABG pH POC ABG pCO2 58.4 H POC ABG pO2 ABG Hemoglobin 11.1 L ABG Sodium 135.1 L ABG Potassium 5.0 H ABG Chloride ABG Glucose Carboxyhemoglobin Sodium Potassium 5.1 H Chloride Carbon Dioxide 31 H BUN 40 H Creatinine 2.0 H Glucose 49 L POC Glucose Lactic Acid Calcium Phosphorus AST ALT CK-MB (CK-2) Rel Index Troponin T NT-Pro-B Natriuret Pep Serum Total Protein Total Protein Albumin Zpwdr-5-Dbwpsphbf Gamma Globulins PEP Interpretation HDL Cholesterol Arterial Blood Glucose Arterial Blood Ionized Calcium Urine WBC (Auto) 33.0 H Urine Creatinine Hepatitis C Antibody 11/22/20 11/22/20 11/22/20 05:00 05:00 05:00 WBC RBC Hgb Hct MCV Lymph % (Auto) [place] % (Auto) Lymph # (Auto) [place] # (Auto) Seg Neutrophils % Seg Neuts % (Manual) Nucleated RBC % Seg Neutrophils # Seg Neutrophils # Man Lymphocytes # (Manual) ABG pH POC ABG pCO2 POC ABG pO2 ABG Hemoglobin ABG Sodium ABG Potassium ABG Chloride ABG Glucose Carboxyhemoglobin Sodium 136 L Potassium Chloride 97.8 L Carbon Dioxide BUN 41 H Creatinine 1.8 H 1.8 H Glucose POC Glucose Lactic Acid Calcium 8.2 L Phosphorus AST ALT CK-MB (CK-2) Rel Index Troponin T 0.065 H D NT-Pro-B Natriuret Pep Serum Total Protein Total Protein Albumin Rkpfs-5-Fuocphhai Gamma Globulins PEP Interpretation HDL Cholesterol Arterial Blood Glucose Arterial Blood Ionized Calcium Urine WBC (Auto) Urine Creatinine Hepatitis C Antibody 11/22/20 11/22/20 11/22/20 10:20 10:20 15:00 WBC RBC 3.16 L Hgb 10.2 L Hct 29.9 L MCV 95 H Lymph % (Auto) [place] % (Auto) Lymph # (Auto) [place] # (Auto) Seg Neutrophils % Seg Neuts % (Manual) Nucleated RBC % Seg Neutrophils # Seg Neutrophils # Man Lymphocytes # (Manual) ABG pH 7.501 H POC ABG pCO2 POC ABG pO2 ABG Hemoglobin 10.5 L ABG Sodium 134.9 L ABG Potassium ABG Chloride ABG Glucose 115 H Carboxyhemoglobin 0.4 L Sodium Potassium Chloride Carbon Dioxide BUN Creatinine Glucose POC Glucose Lactic Acid Calcium Phosphorus AST ALT CK-MB (CK-2) Rel Index Troponin T 0.078 H NT-Pro-B Natriuret Pep Serum Total Protein Total Protein Albumin Ycoot-3-Cphmbpblt Gamma Globulins PEP Interpretation HDL Cholesterol Arterial Blood Glucose 115 H Arterial Blood Ionized Calcium 4.3 L Urine WBC (Auto) Urine Creatinine Hepatitis C Antibody 11/22/20 11/22/20 11/22/20 16:00 17:45 23:21 WBC RBC Hgb Hct MCV Lymph % (Auto) [place] % (Auto) Lymph # (Auto) [place] # (Auto) Seg Neutrophils % Seg Neuts % (Manual) Nucleated RBC % Seg Neutrophils # Seg Neutrophils # Man Lymphocytes # (Manual) ABG pH POC ABG pCO2 POC ABG pO2 ABG Hemoglobin ABG Sodium ABG Potassium ABG Chloride ABG Glucose Carboxyhemoglobin Sodium Potassium Chloride Carbon Dioxide BUN Creatinine Glucose POC Glucose 107 H 115 H Lactic Acid Calcium Phosphorus AST ALT CK-MB (CK-2) Rel Index Troponin T NT-Pro-B Natriuret Pep Serum Total Protein Total Protein Albumin Tsdbj-7-Oxzwczzos Gamma Globulins PEP Interpretation HDL Cholesterol Arterial Blood Glucose Arterial Blood Ionized Calcium Urine WBC (Auto) Urine Creatinine Hepatitis C Antibody Reactive A 11/23/20 11/23/20 11/23/20 03:03 05:33 10:00 WBC RBC 3.33 L Hgb 10.6 L Hct 32.2 L MCV 97 H Lymph % (Auto) [place] % (Auto) 15.0 H Lymph # (Auto) [place] # (Auto) 1.5 H Seg Neutrophils % Seg Neuts % (Manual) Nucleated RBC % Seg Neutrophils # Seg Neutrophils # Man Lymphocytes # (Manual) ABG pH POC ABG pCO2 POC ABG pO2 115.8 H ABG Hemoglobin 10.1 L ABG Sodium 135.8 L ABG Potassium ABG Chloride ABG Glucose 98 H Carboxyhemoglobin 0.4 L Sodium Potassium Chloride Carbon Dioxide BUN Creatinine Glucose POC Glucose 106 H Lactic Acid Calcium Phosphorus AST ALT CK-MB (CK-2) Rel Index Troponin T NT-Pro-B Natriuret Pep Serum Total Protein Total Protein Albumin Tcktq-4-Mbwtxkzqh Gamma Globulins PEP Interpretation HDL Cholesterol Arterial Blood Glucose 98 H Arterial Blood Ionized Calcium 4.4 L Urine WBC (Auto) Urine Creatinine Hepatitis C Antibody 11/23/20 11/23/20 11/23/20 10:00 10:00 12:12 WBC RBC Hgb Hct MCV Lymph % (Auto) [place] % (Auto) Lymph # (Auto) [place] # (Auto) Seg Neutrophils % Seg Neuts % (Manual) Nucleated RBC % Seg Neutrophils # Seg Neutrophils # Man Lymphocytes # (Manual) ABG pH POC ABG pCO2 POC ABG pO2 ABG Hemoglobin ABG Sodium ABG Potassium ABG Chloride ABG Glucose Carboxyhemoglobin Sodium Potassium Chloride Carbon Dioxide BUN 22 H Creatinine Glucose 101 H POC Glucose 119 H Lactic Acid Calcium 7.9 L Phosphorus AST ALT CK-MB (CK-2) Rel Index Troponin T NT-Pro-B Natriuret Pep Serum Total Protein 5.3 L Total Protein 5.5 L Albumin 2.8 L 2.8 L Mbsgc-0-Txqudvnxf 0.4 H Gamma Globulins 0.7 L PEP Interpretation see below H HDL Cholesterol Arterial Blood Glucose Arterial Blood Ionized Calcium Urine WBC (Auto) Urine Creatinine Hepatitis C Antibody 11/23/20 11/23/20 11/24/20 18:21 23:28 01:48 WBC RBC Hgb Hct MCV Lymph % (Auto) [place] % (Auto) Lymph # (Auto) [place] # (Auto) Seg Neutrophils % Seg Neuts % (Manual) Nucleated RBC % Seg Neutrophils # Seg Neutrophils # Man Lymphocytes # (Manual) ABG pH 7.281 L POC ABG pCO2 58.4 H POC ABG pO2 ABG Hemoglobin 11.8 L ABG Sodium ABG Potassium ABG Chloride ABG Glucose 101 H Carboxyhemoglobin Sodium Potassium Chloride Carbon Dioxide BUN Creatinine Glucose POC Glucose 106 H 108 H Lactic Acid Calcium Phosphorus AST ALT CK-MB (CK-2) Rel Index Troponin T NT-Pro-B Natriuret Pep Serum Total Protein Total Protein Albumin Rwbsc-7-Fhvkjahap Gamma Globulins PEP Interpretation HDL Cholesterol Arterial Blood Glucose 101 H Arterial Blood Ionized Calcium Urine WBC (Auto) Urine Creatinine Hepatitis C Antibody 11/24/20 11/24/20 11/25/20 09:58 09:58 00:29 WBC RBC Hgb Hct MCV Lymph % (Auto) [place] % (Auto) Lymph # (Auto) [place] # (Auto) Seg Neutrophils % Seg Neuts % (Manual) Nucleated RBC % Seg Neutrophils # Seg Neutrophils # Man Lymphocytes # (Manual) ABG pH POC ABG pCO2 POC ABG pO2 ABG Hemoglobin ABG Sodium ABG Potassium ABG Chloride ABG Glucose Carboxyhemoglobin Sodium 148 H Potassium Chloride Carbon Dioxide 34 H D BUN Creatinine Glucose POC Glucose 111 H Lactic Acid 0.60 L Calcium Phosphorus AST ALT CK-MB (CK-2) Rel Index Troponin T NT-Pro-B Natriuret Pep Serum Total Protein Total Protein Albumin Tbabk-6-Ngnpwyfxx Gamma Globulins PEP Interpretation HDL Cholesterol Arterial Blood Glucose Arterial Blood Ionized Calcium Urine WBC (Auto) Urine Creatinine Hepatitis C Antibody 11/25/20 11/25/20 11/25/20 05:48 08:18 08:18 WBC 13.2 H RBC 3.56 L Hgb 10.9 L Hct 34.0 L MCV 96 H Lymph % (Auto) [place] % (Auto) Lymph # (Auto) [place] # (Auto) Seg Neutrophils % Seg Neuts % (Manual) 98.0 H Nucleated RBC % 1.0 H Seg Neutrophils # Seg Neutrophils # Man 12.9 H Lymphocytes # (Manual) 0.0 L ABG pH POC ABG pCO2 POC ABG pO2 ABG Hemoglobin ABG Sodium ABG Potassium ABG Chloride ABG Glucose Carboxyhemoglobin Sodium 147 H Potassium Chloride Carbon Dioxide 32 H BUN 26 H Creatinine Glucose 151 H POC Glucose 148 H Lactic Acid Calcium Phosphorus AST ALT CK-MB (CK-2) Rel Index Troponin T NT-Pro-B Natriuret Pep Serum Total Protein Total Protein 6.0 L Albumin 3.7 L Bkbin-2-Kkpbxevtp Gamma Globulins PEP Interpretation HDL Cholesterol Arterial Blood Glucose Arterial Blood Ionized Calcium Urine WBC (Auto) Urine Creatinine Hepatitis C Antibody 11/25/20 11/25/20 11/25/20 11:34 18:03 23:15 WBC RBC Hgb Hct MCV Lymph % (Auto) [place] % (Auto) Lymph # (Auto) [place] # (Auto) Seg Neutrophils % Seg Neuts % (Manual) Nucleated RBC % Seg Neutrophils # Seg Neutrophils # Man Lymphocytes # (Manual) ABG pH POC ABG pCO2 POC ABG pO2 ABG Hemoglobin ABG Sodium ABG Potassium ABG Chloride ABG Glucose Carboxyhemoglobin Sodium Potassium Chloride Carbon Dioxide BUN Creatinine Glucose POC Glucose 144 H 147 H 158 H Lactic Acid Calcium Phosphorus AST ALT CK-MB (CK-2) Rel Index Troponin T NT-Pro-B Natriuret Pep Serum Total Protein Total Protein Albumin Odgjb-8-Lzxkednut Gamma Globulins PEP Interpretation HDL Cholesterol Arterial Blood Glucose Arterial Blood Ionized Calcium Urine WBC (Auto) Urine Creatinine Hepatitis C Antibody 11/26/20 11/26/20 11/26/20 05:07 06:22 06:22 WBC 12.3 H RBC 3.52 L Hgb 11.1 L Hct 33.6 L MCV 95 H Lymph % (Auto) [place] % (Auto) Lymph # (Auto) [place] # (Auto) Seg Neutrophils % Seg Neuts % (Manual) Nucleated RBC % Seg Neutrophils # Seg Neutrophils # Man Lymphocytes # (Manual) ABG pH POC ABG pCO2 POC ABG pO2 ABG Hemoglobin ABG Sodium ABG Potassium ABG Chloride ABG Glucose Carboxyhemoglobin Sodium Potassium 3.3 L Chloride 95.8 L Carbon Dioxide 33 H BUN 35 H Creatinine 1.4 H Glucose 185 H POC Glucose 184 H Lactic Acid Calcium Phosphorus AST ALT CK-MB (CK-2) Rel Index Troponin T 0.036 H D NT-Pro-B Natriuret Pep Serum Total Protein Total Protein 6.2 L Albumin 3.1 L Dpibw-5-Sboyuiwqw Gamma Globulins PEP Interpretation HDL Cholesterol Arterial Blood Glucose Arterial Blood Ionized Calcium Urine WBC (Auto) Urine Creatinine Hepatitis C Antibody 11/26/20 11/26/20 11/26/20 12:52 17:30 23:14 WBC RBC Hgb Hct MCV Lymph % (Auto) [place] % (Auto) Lymph # (Auto) [place] # (Auto) Seg Neutrophils % Seg Neuts % (Manual) Nucleated RBC % Seg Neutrophils # Seg Neutrophils # Man Lymphocytes # (Manual) ABG pH POC ABG pCO2 POC ABG pO2 ABG Hemoglobin ABG Sodium ABG Potassium ABG Chloride ABG Glucose Carboxyhemoglobin Sodium Potassium Chloride Carbon Dioxide BUN Creatinine Glucose POC Glucose 170 H 133 H 149 H Lactic Acid Calcium Phosphorus AST ALT CK-MB (CK-2) Rel Index Troponin T NT-Pro-B Natriuret Pep Serum Total Protein Total Protein Albumin Rcbea-2-Ixgnbkikc Gamma Globulins PEP Interpretation HDL Cholesterol Arterial Blood Glucose Arterial Blood Ionized Calcium Urine WBC (Auto) Urine Creatinine Hepatitis C Antibody 11/27/20 11/27/20 11/27/20 05:35 08:03 12:02 WBC RBC Hgb Hct MCV Lymph % (Auto) [place] % (Auto) Lymph # (Auto) [place] # (Auto) Seg Neutrophils % Seg Neuts % (Manual) Nucleated RBC % Seg Neutrophils # Seg Neutrophils # Man Lymphocytes # (Manual) ABG pH POC ABG pCO2 POC ABG pO2 ABG Hemoglobin ABG Sodium ABG Potassium ABG Chloride ABG Glucose Carboxyhemoglobin Sodium Potassium Chloride 97.0 L Carbon Dioxide 31 H BUN 41 H Creatinine 1.4 H Glucose 145 H POC Glucose 135 H 139 H Lactic Acid Calcium Phosphorus 2.20 L AST ALT CK-MB (CK-2) Rel Index Troponin T NT-Pro-B Natriuret Pep Serum Total Protein Total Protein Albumin Brgfx-4-Olvohvuwm Gamma Globulins PEP Interpretation HDL Cholesterol Arterial Blood Glucose Arterial Blood Ionized Calcium Urine WBC (Auto) Urine Creatinine Hepatitis C Antibody 11/27/20 11/28/20 11/28/20 18:41 05:26 06:08 WBC RBC Hgb Hct MCV Lymph % (Auto) [place] % (Auto) Lymph # (Auto) [place] # (Auto) Seg Neutrophils % Seg Neuts % (Manual) Nucleated RBC % Seg Neutrophils # Seg Neutrophils # Man Lymphocytes # (Manual) ABG pH POC ABG pCO2 POC ABG pO2 ABG Hemoglobin ABG Sodium ABG Potassium ABG Chloride ABG Glucose Carboxyhemoglobin Sodium Potassium Chloride Carbon Dioxide BUN 45 H Creatinine 1.4 H Glucose 135 H POC Glucose 148 H 143 H Lactic Acid Calcium Phosphorus AST ALT CK-MB (CK-2) Rel Index Troponin T NT-Pro-B Natriuret Pep Serum Total Protein Total Protein Albumin Vawzg-0-Ezsrnmfqi Gamma Globulins PEP Interpretation HDL Cholesterol Arterial Blood Glucose Arterial Blood Ionized Calcium Urine WBC (Auto) Urine Creatinine Hepatitis C Antibody 11/28/20 11/28/20 11/28/20 11:46 17:31 21:17 WBC RBC Hgb Hct MCV Lymph % (Auto) [place] % (Auto) Lymph # (Auto) [place] # (Auto) Seg Neutrophils % Seg Neuts % (Manual) Nucleated RBC % Seg Neutrophils # Seg Neutrophils # Man Lymphocytes # (Manual) ABG pH POC ABG pCO2 POC ABG pO2 ABG Hemoglobin ABG Sodium ABG Potassium ABG Chloride ABG Glucose Carboxyhemoglobin Sodium Potassium Chloride Carbon Dioxide BUN Creatinine Glucose POC Glucose 132 H 156 H 122 H Lactic Acid Calcium Phosphorus AST ALT CK-MB (CK-2) Rel Index Troponin T NT-Pro-B Natriuret Pep Serum Total Protein Total Protein Albumin Lqeib-8-Nnmbrzths Gamma Globulins PEP Interpretation HDL Cholesterol Arterial Blood Glucose Arterial Blood Ionized Calcium Urine WBC (Auto) Urine Creatinine Hepatitis C Antibody 11/29/20 11/29/20 11/29/20 00:06 04:43 05:15 WBC RBC Hgb Hct MCV Lymph % (Auto) [place] % (Auto) Lymph # (Auto) [place] # (Auto) Seg Neutrophils % Seg Neuts % (Manual) Nucleated RBC % Seg Neutrophils # Seg Neutrophils # Man Lymphocytes # (Manual) ABG pH POC ABG pCO2 POC ABG pO2 ABG Hemoglobin ABG Sodium ABG Potassium ABG Chloride ABG Glucose Carboxyhemoglobin Sodium Potassium Chloride 97.7 L Carbon Dioxide BUN 56 H Creatinine 1.6 H Glucose 132 H POC Glucose 114 H 125 H Lactic Acid Calcium Phosphorus AST ALT CK-MB (CK-2) Rel Index Troponin T NT-Pro-B Natriuret Pep Serum Total Protein Total Protein Albumin Ulxyo-0-Igskrodwh Gamma Globulins PEP Interpretation HDL Cholesterol Arterial Blood Glucose Arterial Blood Ionized Calcium Urine WBC (Auto) Urine Creatinine Hepatitis C Antibody 11/29/20 11/29/20 11/30/20 12:09 18:12 04:47 WBC RBC Hgb Hct MCV Lymph % (Auto) [place] % (Auto) Lymph # (Auto) [place] # (Auto) Seg Neutrophils % Seg Neuts % (Manual) Nucleated RBC % Seg Neutrophils # Seg Neutrophils # Man Lymphocytes # (Manual) ABG pH POC ABG pCO2 POC ABG pO2 ABG Hemoglobin ABG Sodium ABG Potassium ABG Chloride ABG Glucose Carboxyhemoglobin Sodium Potassium Chloride Carbon Dioxide 31 H BUN 59 H Creatinine 1.6 H Glucose 122 H POC Glucose 142 H 132 H Lactic Acid Calcium Phosphorus AST ALT CK-MB (CK-2) Rel Index Troponin T NT-Pro-B Natriuret Pep Serum Total Protein Total Protein Albumin Xkudv-5-Yhqrwrvzw Gamma Globulins PEP Interpretation HDL Cholesterol Arterial Blood Glucose Arterial Blood Ionized Calcium Urine WBC (Auto) Urine Creatinine Hepatitis C Antibody 11/30/20 11/30/20 11/30/20 05:45 11:47 18:16 WBC RBC Hgb Hct MCV Lymph % (Auto) [place] % (Auto) Lymph # (Auto) [place] # (Auto) Seg Neutrophils % Seg Neuts % (Manual) Nucleated RBC % Seg Neutrophils # Seg Neutrophils # Man Lymphocytes # (Manual) ABG pH POC ABG pCO2 POC ABG pO2 ABG Hemoglobin ABG Sodium ABG Potassium ABG Chloride ABG Glucose Carboxyhemoglobin Sodium Potassium Chloride Carbon Dioxide BUN Creatinine Glucose POC Glucose 118 H 123 H 126 H Lactic Acid Calcium Phosphorus AST ALT CK-MB (CK-2) Rel Index Troponin T NT-Pro-B Natriuret Pep Serum Total Protein Total Protein Albumin Nhxnb-5-Rbduquwfe Gamma Globulins PEP Interpretation HDL Cholesterol Arterial Blood Glucose Arterial Blood Ionized Calcium Urine WBC (Auto) Urine Creatinine Hepatitis C Antibody 12/01/20 12/01/20 12/01/20 00:11 04:57 05:41 WBC RBC Hgb Hct MCV Lymph % (Auto) [place] % (Auto) Lymph # (Auto) [place] # (Auto) Seg Neutrophils % Seg Neuts % (Manual) Nucleated RBC % Seg Neutrophils # Seg Neutrophils # Man Lymphocytes # (Manual) ABG pH POC ABG pCO2 POC ABG pO2 ABG Hemoglobin ABG Sodium ABG Potassium ABG Chloride ABG Glucose Carboxyhemoglobin Sodium Potassium Chloride Carbon Dioxide BUN 52 H Creatinine 1.4 H Glucose 121 H POC Glucose 117 H 120 H Lactic Acid Calcium Phosphorus AST ALT CK-MB (CK-2) Rel Index Troponin T NT-Pro-B Natriuret Pep Serum Total Protein Total Protein Albumin Kxjlo-5-Hatljckig Gamma Globulins PEP Interpretation HDL Cholesterol Arterial Blood Glucose Arterial Blood Ionized Calcium Urine WBC (Auto) Urine Creatinine Hepatitis C Antibody 12/01/20 12/02/20 12/02/20 23:35 06:02 08:09 WBC RBC Hgb Hct MCV Lymph % (Auto) [place] % (Auto) Lymph # (Auto) [place] # (Auto) Seg Neutrophils % Seg Neuts % (Manual) Nucleated RBC % Seg Neutrophils # Seg Neutrophils # Man Lymphocytes # (Manual) ABG pH POC ABG pCO2 POC ABG pO2 ABG Hemoglobin ABG Sodium ABG Potassium ABG Chloride ABG Glucose Carboxyhemoglobin Sodium Potassium Chloride Carbon Dioxide BUN Creatinine Glucose POC Glucose 117 H 108 H 117 H Lactic Acid Calcium Phosphorus AST ALT CK-MB (CK-2) Rel Index Troponin T NT-Pro-B Natriuret Pep Serum Total Protein Total Protein Albumin Jfnvz-0-Vnmdxwtnk Gamma Globulins PEP Interpretation HDL Cholesterol Arterial Blood Glucose Arterial Blood Ionized Calcium Urine WBC (Auto) Urine Creatinine Hepatitis C Antibody 12/02/20 12/02/20 12/02/20 09:40 11:33 17:34 WBC RBC Hgb Hct MCV Lymph % (Auto) [place] % (Auto) Lymph # (Auto) [place] # (Auto) Seg Neutrophils % Seg Neuts % (Manual) Nucleated RBC % Seg Neutrophils # Seg Neutrophils # Man Lymphocytes # (Manual) ABG pH POC ABG pCO2 POC ABG pO2 ABG Hemoglobin ABG Sodium ABG Potassium ABG Chloride ABG Glucose Carboxyhemoglobin Sodium Potassium Chloride 97.6 L Carbon Dioxide 35 H BUN 45 H Creatinine Glucose POC Glucose 109 H 124 H Lactic Acid Calcium Phosphorus AST ALT CK-MB (CK-2) Rel Index Troponin T NT-Pro-B Natriuret Pep Serum Total Protein Total Protein Albumin [id number]-[id number] Gamma Globulins PEP Interpretation HDL Cholesterol Arterial Blood Glucose Arterial Blood Ionized Calcium Urine WBC (Auto) Urine Creatinine Hepatitis C Antibody 12/03/20 12/03/20 12/03/20 05:40 07:16 16:46 WBC RBC Hgb Hct MCV Lymph % (Auto) [place] % (Auto) Lymph # (Auto) [place] # (Auto) Seg Neutrophils % Seg Neuts % (Manual) Nucleated RBC % Seg Neutrophils # Seg Neutrophils # Man Lymphocytes # (Manual) ABG pH POC ABG pCO2 POC ABG pO2 ABG Hemoglobin ABG Sodium ABG Potassium ABG Chloride ABG Glucose Carboxyhemoglobin Sodium Potassium Chloride Carbon Dioxide BUN 44 H Creatinine Glucose 117 H POC Glucose 115 H 106 H Lactic Acid Calcium Phosphorus AST ALT CK-MB (CK-2) Rel Index Troponin T NT-Pro-B Natriuret Pep Serum Total Protein Total Protein Albumin Lodvc-4-Bjsufoajz Gamma Globulins PEP Interpretation HDL Cholesterol Arterial Blood Glucose Arterial Blood Ionized Calcium Urine WBC (Auto) Urine Creatinine Hepatitis C Antibody 12/03/20 12/04/20 12/04/20 21:55 07:53 11:43 WBC RBC Hgb Hct MCV Lymph % (Auto) [place] % (Auto) Lymph # (Auto) [place] # (Auto) Seg Neutrophils % Seg Neuts % (Manual) Nucleated RBC % Seg Neutrophils # Seg Neutrophils # Man Lymphocytes # (Manual) ABG pH POC ABG pCO2 POC ABG pO2 ABG Hemoglobin ABG Sodium ABG Potassium ABG Chloride ABG Glucose Carboxyhemoglobin Sodium Potassium Chloride Carbon Dioxide BUN Creatinine Glucose POC Glucose 113 H 110 H 110 H Lactic Acid Calcium Phosphorus AST ALT CK-MB (CK-2) Rel Index Troponin T NT-Pro-B Natriuret Pep Serum Total Protein Total Protein Albumin Ktgnz-7-Dobnynhrf Gamma Globulins PEP Interpretation HDL Cholesterol Arterial Blood Glucose Arterial Blood Ionized Calcium Urine WBC (Auto) Urine Creatinine Hepatitis C Antibody 12/04/20 12/08/20 12/09/20 17:21 09:43 08:43 WBC RBC Hgb Hct MCV Lymph % (Auto) [place] % (Auto) Lymph # (Auto) [place] # (Auto) Seg Neutrophils % Seg Neuts % (Manual) Nucleated RBC % Seg Neutrophils # Seg Neutrophils # Man Lymphocytes # (Manual) ABG pH POC ABG pCO2 POC ABG pO2 ABG Hemoglobin ABG Sodium ABG Potassium ABG Chloride ABG Glucose Carboxyhemoglobin Sodium Potassium Chloride 96.2 L Carbon Dioxide 39 H BUN 34 H Creatinine Glucose POC Glucose 135 H Lactic Acid Calcium Phosphorus AST ALT CK-MB (CK-2) Rel Index Troponin T NT-Pro-B Natriuret Pep 4253 H Serum Total Protein Total Protein Albumin Xrjjc-5-Ksqepuwuj Gamma Globulins PEP Interpretation HDL Cholesterol Arterial Blood Glucose Arterial Blood Ionized Calcium Urine WBC (Auto) Urine Creatinine Hepatitis C Antibody 12/10/20 12/12/20 12/15/20 14:53 12:05 10:20 WBC RBC Hgb Hct MCV Lymph % (Auto) [place] % (Auto) Lymph # (Auto) [place] # (Auto) Seg Neutrophils % Seg Neuts % (Manual) Nucleated RBC % Seg Neutrophils # Seg Neutrophils # Man Lymphocytes # (Manual) ABG pH 7.470 H POC ABG pCO2 53.3 H POC ABG pO2 82.4 L ABG Hemoglobin 10.1 L ABG Sodium 131.3 L ABG Potassium ABG Chloride 89.0 L ABG Glucose 123 H Carboxyhemoglobin Sodium Potassium Chloride 91.9 L 91.9 L Carbon Dioxide 39 H 38 H BUN 46 H 48 H Creatinine Glucose 141 H 142 H POC Glucose Lactic Acid Calcium 8.3 L Phosphorus AST ALT CK-MB (CK-2) Rel Index Troponin T NT-Pro-B Natriuret Pep Serum Total Protein Total Protein Albumin Dtuvj-8-Pwaunubjp Gamma Globulins PEP Interpretation HDL Cholesterol Arterial Blood Glucose 123 H Arterial Blood Ionized Calcium 4.3 L Urine WBC (Auto) Urine Creatinine Hepatitis C Antibody
[2020-12-15] MEDS: hydrALAZINE 20 MG/1 ML INJ IV PRN (11:58)
[2020-12-15] MEDS ORDERED: FUROSEMIDE 40 MG/4 ML INJ IV ONE (12:27)
[2020-12-15] MEDS: ACETAMINOPHEN 325 MG TAB PO PRN (17:58)
[2020-12-16] MEDS: methylPREDNISolone Sod Succinate 125 MG/2 ML INJ IV SCH ×5 (00:41→17:29)
[2020-12-16] MEDS: hydrALAZINE 20 MG/1 ML INJ IV PRN (04:52)
[2020-12-16] MEDS: HEPARIN 5,000 UNIT/1 ML VIAL SUB-Q SCH ×3 (05:38→21:50)
--- NOTE | 2020-12-16 07:30 | Progress Note ---
Assessment and Plan Assessment and Plan --Acute hypoxic respiratory failure/Requiring intubation 11/21/2020 s/p extubation 11/23/2020, patient is on noninvasive ventilation on high flow nasal cannula oxygen Fio2/97% sat 30 L / 60% FiO2 Still on high flow oxygen-30 L / 50% FiO2 BiPAP as needed, wean as tolerated Pulmonary hygiene, pulmonary critical care following --Hypokalemia; resolved Monitor electrolytes --Acute kidney injury; vasomotor nephropathy Gentle hydration closely monitor renal function --Severe pulmonary hypertension; Management per pulmonary, continue supportive care --Acute metabolic encephalopathy -11/21 CT head shows no acute intracranial abnormality, sinus disease Continue supportive care --NSTEMI type II Presented with [facility] with elevated troponins cardiology patient had a stress test in 2019 which showed no significant ischemia, Echo; EF 50 to 55% severe pulmonary hypertension moderate mitral stenosis may benefit from HECTOR for evaluation of mitral valve when patient is stable and e xtubated --Acute kidney injury; present on admission Vasomotor nephropathy Now resolved, normal renal function Avoid nephrotoxins, nephrology following --History of bladder cancer; Indwelling Paulson in place, supportive care Continue Flomax --Urinary tract infection; Continue empiric antibiotics total 5 days Supportive care --Dyslipidemia; Continue statin and low-cholesterol diet --Hypertension; moderate control We will continue current antihypertensives And as needed hydralazine --Hypernatremia ; Patient was hyponatremia on admission ,probably overcorrection Free water via [place], nephrology following Monitor electrolytes --Severe protein calorie malnutrition ; Hypoalbuminemia ,nutrition supplements Nutrition consult and supportive care --DVT prophylaxis; Subcu heparin, SCDs --GI prophylaxis; Continue Prevacid --Full CODE STATUS; Bedside swallow screen, if normal start diet pured/mechanical soft advance as tolerated We will also request physical therapy We will closely monitor the patient and adjust the management as needed Consults and recommendations noted and appreciated Plan of care reviewed with the patient's nurse PT OT when he comes off high flow oxygen DC planning per case management; considering LTAC placement The high probability of a clinically significant, sudden or life threatening deterioration of the [resp, cardiac, nephrology, metabolic] system(s) required my full and direct attention, intervention and personal management. The aggregate critical care time was [34] minutes. This time is in addition to time spent performing reported procedures but includes the following: [x] Data Review and interpretation [x] Patient assessment and monitoring of vital signs [x] Documentation [x] Medication orders and management signed for thank you caregiver Subjective Date of service: 12/15/20 Principal diagnosis: Acute respiratory failure Interval history: Brief history and daily hospital course: 85-year-old male patient with past medical history of COPD on home oxygen, GERD, hypertension, asthma, hyperlipidemia, vasopressin, bladder cancer admitted for acute hypoxic respiratory failure, intubated on 11/21/2020 managed appropriately evaluated by pulmonary critical subsequently extubated on 11/23/2020, today patient is on high flow nasal cannula oxygen, pulmonary critical, cardiology and nephrology following the patient 11/23: Patient was extubated, currently on BiPAP Mild distress, wean as tolerated 11/24/2020 Patient on BiPAP S/p extubation 11/25/2020; patient is on BiPAP Mild distress, noncommunicative 11/26/2020; patient is on intermittent BiPAP Currently on high flow nasal cannula oxygen 11/27/2020; patient is more alert and awake Will get swallow screen, if normal start pured diet Transfer the patient to [facility] 11/28/2020; patient is on high flow oxygen slightly better than yesterday Able to tolerate mechanical soft diet when the family comes and helps him DC planning, considering LTAC placement 11/29 Still on HFNC oxygen 11/30 Still on HFNC oxygen 12/01 on 35 liters O2 12/02/2020 Patient on high flow nasal cannula oxygen 714/21; patient remains on high flow nasal cannula oxygen requiring 25 L/FiO2 35%/O2 sats 96 Wean as tolerated, awaiting LTAC placement Patient is hemodynamically and clinically stable to be transferred out of [facility] to cardiac telemetry or medical floor with remote telemetry today. 12/04/2020; remains on high flow oxygen 25 L/35%/96% O2 sats Wean as tolerated, pending LTAC placement consider PT OT once patient's respiratory status is stable 12/05/2020; patient feels slightly better more alert and awake Responding to simple questions appropriately, titrated the oxygen Today patient is requiring 3 to 4 L of nasal cannula oxygen Significantly improved from yesterday when he needed 25 L Physical therapy evaluation and treatment, home oxygen evaluation prior to discharge 12/06/2020; patient is requiring 10 L of supplemental oxygen today Wean as tolerated PT OT evaluation recommendations noted, Possible discharge in 1 to 2 days if stable Patient's son Ana Morejon [phone] at the bedside Discussed in detail patient's condition, tests and reports Discharge planning, answered all his questions 12/07/2020; today patient is requiring high flow nasal cannula oxygen, 25 L In mild distress, wean as tolerated to 3 to 4 L nasal cannula DC planning per case management, possible home with home health when patient is medically stable 12/08/2020 today patient is requiring high flow nasal cannula oxygen, but slightly improved patient is at 15 L O2 PT and OT recommend home health PT OT, wean patient off high flow oxygen Titrate to 3 to 4 L nasal cannula, possible discharge in 1 to 2 days if stable And cleared by pulmonary 12/09/2020; patient continues to require high flow nasal cannula oxygen between 15 to 20 L Management per pulmonary. Wean as tolerated I spoke with bilingual Russian speaking granddaughter at the bedside, answered all her questions 12/10/2020; no change clinically, continues to require 20 to 30 L of high flow nasal cannula oxygen If no improvement we will consider transferring to IMCU or ICU for close observation after discussing with pulmonary. 12/11/2020 I spoke to bilingual Russian speaking patient's son Ana Morejon [phone] And discussed in detail patient's condition, treatment plan, poor prognosis, plans of Transferring to [facility] when bed is available, and the patient is requiring high flow nasal cannula oxygen He verbalized understanding, full CODE STATUS at this point. Answered all his questions. 12/12/2020; patient is more alert and awake, feels slightly better still remains on high flow oxygen however titrating down Closely monitor, awaiting LTAC placement at [facility] , discussed with Russian- speaking family member at the bedside today Disposition; wean high flow oxygen as tolerated Discharge when patient is stable Follow pulmonary recommendations 12/13/2020 Patient still on high flow oxygen Patient waiting for LTAC placement 12/14/2020 Patient on high flow oxygen 60% FiO2 and 30 L oxygen Waiting for LTAC placement 12/15/2020 Patient on high flow oxygen Patient on 50% FiO2 and 30 L oxygen Discussed with son about DNR-none comfortable Needs LTAC placement Objective - Constitutional Vitals: Vital Signs - 12hr 12/15/20 12/15/20 12/15/20 20:13 20:58 21:01 Temperature 97.5 F L Pulse Rate 79 Pulse Rate [ 100 H Anterior Bilateral Throughout] Respiratory 19 Rate Respiratory 20 Rate [Anterior Bilateral Throughout] Blood Pressure 167/78 O2 Sat by Pulse 97 99 Oximetry 12/15/20 12/15/20 12/15/20 21:50 22:00 23:37 Temperature 97.9 F Pulse Rate 100 H Pulse Rate [ Anterior Bilateral Throughout] Respiratory 20 Rate Respiratory Rate [Anterior Bilateral Throughout] Blood Pressure 174/92 O2 Sat by Pulse 96 Oximetry 12/16/20 12/16/20 12/16/20 00:12 02:00 03:41 Temperature 97.6 F Pulse Rate 87 92 H Pulse Rate [ Anterior Bilateral Throughout] Respiratory 22 Rate Respiratory Rate [Anterior Bilateral Throughout] Blood Pressure 178/93 O2 Sat by Pulse 96 99 96 Oximetry 12/16/20 04:52 Temperature Pulse Rate Pulse Rate [ Anterior Bilateral Throughout] Respiratory Rate Respiratory Rate [Anterior Bilateral Throughout] Blood Pressure 178/93 O2 Sat by Pulse Oximetry General appearance: Present: severe distress, well-nourished - EENT Eyes: PERRL, EOM intact ENT: hearing intact, clear oral mucosa Ears: bilateral: normal - Neck Neck: supple, normal ROM - Respiratory Respiratory effort: normal Respiratory: bilateral: CTA, rhonchi, wheezing - Breasts Breasts: normal - Cardiovascular Heart rate: 78 Rhythm: regular Heart Sounds: Present: S1 & S2. Absent: gallop, rub Extremities: pulses intact, No edema, normal color, Full ROM - Gastrointestinal General gastrointestinal: Present: soft, non-tender, non-distended, normal bowel sounds - Genitourinary Male genitourinary: normal - Integumentary Integumentary: clear, warm, dry - Musculoskeletal Musculoskeletal: 1, strength equal bilaterally - Neurologic Neurologic: moves all extremities - Psychiatric Psychiatric: memory intact, appropriate mood/affect, intact judgment & insight - Labs CBC & Chem 7: 11/28/20 09:21 12/15/20 19:58 Labs: Abnormal lab results 12/15/20 Range/Units 10:20 ABG pH 7.470 H (7.320-7.450) POC ABG pCO2 53.3 H (32.0-48.0) mmHg POC ABG pO2 82.4 L (83-108) mmHg ABG Hemoglobin 10.1 L (12.0-17.5) ABG Sodium 131.3 L (136.0-145.0) mmol/L ABG Chloride 89.0 L (98-107) mmol/L ABG Glucose 123 H (65-95) mg/dL Arterial Blood Glucose 123 H (65-95) mg/dL Arterial Blood Ionized Calcium 4.3 L (4.6-5.3) mg/dL HEART Score - HEART Score Troponin: Troponin T 0.021 ng/mL (0.00-0.029) 11/29/20 04:43
[2020-12-16] MEDS: BUDESONIDE 0.5 MG/2 ML NEBU IH SCH ×2 (08:34→20:19)
[2020-12-16] MEDS: IPRATROPIUM/ALBUTEROL SULFATE 3 ML AMPUL.NEB IH SCH ×3 (08:34→20:19)
[2020-12-16] MEDS: LANSOPRAZOLE 30 MG SOLUTAB FEEDTUBE SCH (09:37)
[2020-12-16] MEDS: QUEtiapine 25 MG TAB PO SCH ×2 (09:37→21:51)
[2020-12-16] MEDS: ASPIRIN 81 MG TAB CHEW PO SCH (09:37)
[2020-12-16] MEDS: TAMSULOSIN 0.4 MG CAP PO SCH (09:37)
[2020-12-16] MEDS: SENNOSIDES/DOCUSATE SODIUM 8.6/50 MG TAB FEEDTUBE SCH ×2 (09:37→21:50)
[2020-12-16] MEDS: carvediloL 12.5 MG TAB PO SCH ×2 (09:39→21:50)
--- NOTE | 2020-12-16 09:52 | Progress Note ---
Assessment and Plan 85 y/o moroccan male admitted with acute hypoxic respiratory failure. 12/16/20: Lasix again today. Will order BMP. Reviewed CM note in regards to PEER to PEER need. I did the last one. I'm not sure what they are looking for as this is now the second round of the patient requiring high dose IV steroids and HFNC. If he goes home, he will decompensate and could end up back on mechanical ventilation or worse, . This was explained in the last Peer to Peer. Continue high dose steroids and wean as tolerated. Guarded prognosis. 12/15/20: Lasix 40 today. Continue high dose steroids. Wean FiO2 and Flow for sats >88%. Ok with sitting up in chair if patient will cooperate. PT/OT. Hopeful insurer will approve LTACH soon as patient really would benefit from this. 12/12/20: Lasix again today. Ordered labs for today. Continue to wean FiO2 for sats >88%. Follow up with CM. Prognosis still remains guarded but more promisi ng now that oxygen requirement is coming down. 12/11/20: Lasix again today. Labs stable on yesterday. Continues to have desats at night. Hesitant to order positive pressure at night as this could make the patient more agitated and worsen oxygenation but may consider if the same thing happens again tonight. Follow up with CM on LTACH as he definitely needs it. Will continue to follow. Guarded prognosis. 12/10/20: BNP elevated, lasix again today. Ordered labs for this am, will review once back. May need to increase night time seroquel as night nurse documented patient taking off cannula constantly but easy redirection. Appeal done by CM. Continue High dose steroids. Guarded prognosis. 12/09/20: Continue High Dose IV steroids. Follow up BNP. Today will give lasix 40mg IV x1. Please ask CM to appeal LTACH denial as patient will need it. After speaking with RT, patient becomes very agitated and frustrated secondary to language barrier and will remove supplemental O2 requiring him to be put on higher numbers to recover. Suggest using language line more often or calling daughter who is in the medical profession and speaks very good turkmen. Will continue to follow. 12/08/20: with change in oxygen requirement, will place back on IV steroids. Will order labs including BNP today and give lasix 20mg IV x1. Initial LTACH request was denied, suggest having CM appeal it now that patient is back on HFNC. Will continue to follow. 12/06/20: Steroid taper as follows: 60 daily for 5 days, 40 daily for 5 days, 20 daily for 5 days, 10 daily for 5 days. Resume whatever home regimen patient was on at home. Wean Oxygen for sats >88%, likely patient will be fine on 2-3 liters, does not need 4. Will sign off. Call if questions. 12/05/20: Change to oral steroids starting tomorrow with prolonged taper. Likely dischargeable over the weekend. 12/04/20: LTACH denied. Continue to wean. Continue IV steroids. 12/03/20: Follow up with CM in regards to LTACH. Continue IV steroids. Wean FiO2 as tolerated. PT/OT if not already evaluated. Patient stable enough to transfer to floor. 12/02/20: CM still waiting to hear back from LTACH in regards to auth. Continue to wean FiO2 as tolerated for sats >88%. Continue IV steroids. 12/01/20: Wean HFNC for sats >88%. Spoke with CM about checking on LTACH but patient may be able to be weaned further now while in house. Will speak with RT about this. If placed on salter, may need to consider transfer to medica l/surgical floor with remote tele. 11/28/20: Continue to wean HFNC. Agree with holding Precedex, can increase seroquel if needed to help with mood. Hopeful that over the weekend will be down to nasal cannula and can transfer to the floor. CM working on LTACH evaluation. Patient is stable for transfer, if and when accepted. 11/27/20: Will transfer to step down today. Agree with bedside swallow eval now that patient is more awake. Will try bID seroquel to help with mood and agitation. Hopeful Cr has stablized. Continue steroids at 40q8. Consider LTACH evaluation 11/26/20: 11/25/20: Continue bipap for right now. Added precedex and stopped ativan as this may be worsening agitation. Ok with haldol use. Continue daily diuretics to keep patient net negative. Continue ICU monitoring for now. Renal function is better. Guarded prognosis. 11/23/20: Wean sedation to off. If patient can tolerate being off sedation, will attempt PSV trial, otherwise, will likely have to just stop sedation and extubate, will have bipap ready for as needed purposes. Needs chemistry to assess renal function. Out put was good. 1. Repeat ABG later this afternoon and wean FIO2 according (>88%) 2. Stop sedation, need to assess mental state 3. Follow up renal function and urine output. 4. Guarded prognosis, this is likely acute on chronic respiratory failure. cct 31 minutes. Subjective Date of service: 12/16/20 Principal diagnosis: Acute respiratory failure Interval history: Still on HFNC but down to 40% and 20 liters. only negative a few cc's on yesterday. Objective Vital Signs - 12hr 12/15/20 12/15/20 12/15/20 21:50 22:00 23:37 Temperature 97.9 F Pulse Rate 100 H Pulse Rate [ Anterior Bilateral Throughout] Respiratory 20 Rate Respiratory Rate [Anterior Bilateral Throughout] Blood Pressure 174/92 O2 Sat by Pulse 96 Oximetry 12/16/20 12/16/20 12/16/20 00:12 02:00 03:41 Temperature 97.6 F Pulse Rate 87 92 H Pulse Rate [ Anterior Bilateral Throughout] Respiratory 22 Rate Respiratory Rate [Anterior Bilateral Throughout] Blood Pressure 178/93 O2 Sat by Pulse 96 99 96 Oximetry 12/16/20 12/16/20 12/16/20 04:52 08:00 09:39 Temperature Pulse Rate 94 H Pulse Rate [ 97 H Anterior Bilateral Throughout] Respiratory Rate Respiratory 19 Rate [Anterior Bilateral Throughout] Blood Pressure 178/93 110/84 O2 Sat by Pulse 90 Oximetry Constitutional: no acute distress, alert, agitated, other Eyes: non-icteric ENT: oropharynx moist, other (Crowded oropharynx) Neck: supple, other (large in circumference) Effort: normal Ascultation: Bilateral: clear, diminished breath sounds, wheezes Percussion: Bilateral: not dull Cardiovascular: other (tachy, no mrg) Gastrointestinal: normoactive bowel sounds, soft, non-tender, non-distended Extremities: no cyanosis, no edema, pink and warm Neurologic: normal mental status, non-focal exam, pupils equal and round Psychiatric: mood appropriate, affect normal CBC and BMP: 11/28/20 09:21 12/15/20 19:58 ABG, PT/INR, D-dimer: ABG ABG pH 7.470 (7.320-7.450) H 12/15/20 10:20 POC ABG pCO2 53.3 mmHg (32.0-48.0) H 12/15/20 10:20 POC ABG pO2 82.4 mmHg (83-108) L 12/15/20 10:20 POC ABG HCO3 37.9 12/15/20 10:20 ABG O2 Saturation 95.7 (0-100) 12/15/20 10:20 PT/INR, D-dimer PT 13.5 Sec. (12.2-14.9) 11/21/20 20:50 INR 0.98 (0.87-1.13) 11/21/20 20:50 Abnormal lab findings: Abnormal Labs 11/21/20 11/21/20 11/22/20 20:50 20:50 00:11 WBC RBC 3.48 L Hgb 11.1 L Hct 34.3 L MCV 99 H Lymph % (Auto) 6.8 L [place] % (Auto) Lymph # (Auto) 0.6 L [place] # (Auto) Seg Neutrophils % 85.5 H Seg Neuts % (Manual) Nucleated RBC % Seg Neutrophils # Seg Neutrophils # Man Lymphocytes # (Manual) ABG pH POC ABG pCO2 POC ABG pO2 ABG Hemoglobin ABG Sodium ABG Potassium ABG Chloride ABG Glucose Carboxyhemoglobin Sodium 130 L Potassium 7.3 H* Chloride 91.1 L Carbon Dioxide BUN 40 H Creatinine 2.1 H Glucose 195 H POC Glucose Lactic Acid Calcium Phosphorus AST 91 H ALT 65 H CK-MB (CK-2) Rel Index 4.1 H Troponin T 0.045 H NT-Pro-B Natriuret Pep 6998 H Serum Total Protein Total Protein Albumin 3.7 L Vbgsk-6-Dxryqzddz Gamma Globulins PEP Interpretation HDL Cholesterol 60 H Arterial Blood Glucose Arterial Blood Ionized Calcium Urine WBC (Auto) Urine Creatinine 158.2 H Hepatitis C Antibody 11/22/20 11/22/20 11/22/20 00:23 00:40 01:37 WBC 14.1 H RBC 3.53 L Hgb 11.0 L Hct 34.1 L MCV 97 H Lymph % (Auto) 12.3 L [place] % (Auto) 14.2 H Lymph # (Auto) [place] # (Auto) 2.0 H Seg Neutrophils % 72.3 H Seg Neuts % (Manual) Nucleated RBC % Seg Neutrophils # 10.2 H Seg Neutrophils # Man Lymphocytes # (Manual) ABG pH POC ABG pCO2 POC ABG pO2 ABG Hemoglobin ABG Sodium ABG Potassium ABG Chloride ABG Glucose Carboxyhemoglobin Sodium Potassium 5.1 H D Chloride Carbon Dioxide BUN Creatinine Glucose POC Glucose Lactic Acid 2.10 H* Calcium Phosphorus AST ALT CK-MB (CK-2) Rel Index Troponin T NT-Pro-B Natriuret Pep Serum Total Protein Total Protein Albumin Zfkgx-2-Rvhsrffoe Gamma Globulins PEP Interpretation HDL Cholesterol Arterial Blood Glucose Arterial Blood Ionized Calcium Urine WBC (Auto) Urine Creatinine Hepatitis C Antibody 11/22/20 11/22/20 11/22/20 01:37 03:20 05:00 WBC RBC Hgb Hct MCV Lymph % (Auto) [place] % (Auto) Lymph # (Auto) [place] # (Auto) Seg Neutrophils % Seg Neuts % (Manual) Nucleated RBC % Seg Neutrophils # Seg Neutrophils # Man Lymphocytes # (Manual) ABG pH POC ABG pCO2 58.4 H POC ABG pO2 ABG Hemoglobin 11.1 L ABG Sodium 135.1 L ABG Potassium 5.0 H ABG Chloride ABG Glucose Carboxyhemoglobin Sodium Potassium 5.1 H Chloride Carbon Dioxide 31 H BUN 40 H Creatinine 2.0 H Glucose 49 L POC Glucose Lactic Acid Calcium Phosphorus AST ALT CK-MB (CK-2) Rel Index Troponin T NT-Pro-B Natriuret Pep Serum Total Protein Total Protein Albumin Zbunj-9-Fdnxfxenu Gamma Globulins PEP Interpretation HDL Cholesterol Arterial Blood Glucose Arterial Blood Ionized Calcium Urine WBC (Auto) 33.0 H Urine Creatinine Hepatitis C Antibody 11/22/20 11/22/20 11/22/20 05:00 05:00 05:00 WBC RBC Hgb Hct MCV Lymph % (Auto) [place] % (Auto) Lymph # (Auto) [place] # (Auto) Seg Neutrophils % Seg Neuts % (Manual) Nucleated RBC % Seg Neutrophils # Seg Neutrophils # Man Lymphocytes # (Manual) ABG pH POC ABG pCO2 POC ABG pO2 ABG Hemoglobin ABG Sodium ABG Potassium ABG Chloride ABG Glucose Carboxyhemoglobin Sodium 136 L Potassium Chloride 97.8 L Carbon Dioxide BUN 41 H Creatinine 1.8 H 1.8 H Glucose POC Glucose Lactic Acid Calcium 8.2 L Phosphorus AST ALT CK-MB (CK-2) Rel Index Troponin T 0.065 H D NT-Pro-B Natriuret Pep Serum Total Protein Total Protein Albumin Koqsw-4-Gsatncnid Gamma Globulins PEP Interpretation HDL Cholesterol Arterial Blood Glucose Arterial Blood Ionized Calcium Urine WBC (Auto) Urine Creatinine Hepatitis C Antibody 11/22/20 11/22/20 11/22/20 10:20 10:20 15:00 WBC RBC 3.16 L Hgb 10.2 L Hct 29.9 L MCV 95 H Lymph % (Auto) [place] % (Auto) Lymph # (Auto) [place] # (Auto) Seg Neutrophils % Seg Neuts % (Manual) Nucleated RBC % Seg Neutrophils # Seg Neutrophils # Man Lymphocytes # (Manual) ABG pH 7.501 H POC ABG pCO2 POC ABG pO2 ABG Hemoglobin 10.5 L ABG Sodium 134.9 L ABG Potassium ABG Chloride ABG Glucose 115 H Carboxyhemoglobin 0.4 L Sodium Potassium Chloride Carbon Dioxide BUN Creatinine Glucose POC Glucose Lactic Acid Calcium Phosphorus AST ALT CK-MB (CK-2) Rel Index Troponin T 0.078 H NT-Pro-B Natriuret Pep Serum Total Protein Total Protein Albumin Tosga-9-Buqkwvmmk Gamma Globulins PEP Interpretation HDL Cholesterol Arterial Blood Glucose 115 H Arterial Blood Ionized Calcium 4.3 L Urine WBC (Auto) Urine Creatinine Hepatitis C Antibody 11/22/20 11/22/20 11/22/20 16:00 17:45 23:21 WBC RBC Hgb Hct MCV Lymph % (Auto) [place] % (Auto) Lymph # (Auto) [place] # (Auto) Seg Neutrophils % Seg Neuts % (Manual) Nucleated RBC % Seg Neutrophils # Seg Neutrophils # Man Lymphocytes # (Manual) ABG pH POC ABG pCO2 POC ABG pO2 ABG Hemoglobin ABG Sodium ABG Potassium ABG Chloride ABG Glucose Carboxyhemoglobin Sodium Potassium Chloride Carbon Dioxide BUN Creatinine Glucose POC Glucose 107 H 115 H Lactic Acid Calcium Phosphorus AST ALT CK-MB (CK-2) Rel Index Troponin T NT-Pro-B Natriuret Pep Serum Total Protein Total Protein Albumin Lcvay-4-Wdgufrsah Gamma Globulins PEP Interpretation HDL Cholesterol Arterial Blood Glucose Arterial Blood Ionized Calcium Urine WBC (Auto) Urine Creatinine Hepatitis C Antibody Reactive A 11/23/20 11/23/20 11/23/20 03:03 05:33 10:00 WBC RBC 3.33 L Hgb 10.6 L Hct 32.2 L MCV 97 H Lymph % (Auto) [place] % (Auto) 15.0 H Lymph # (Auto) [place] # (Auto) 1.5 H Seg Neutrophils % Seg Neuts % (Manual) Nucleated RBC % Seg Neutrophils # Seg Neutrophils # Man Lymphocytes # (Manual) ABG pH POC ABG pCO2 POC ABG pO2 115.8 H ABG Hemoglobin 10.1 L ABG Sodium 135.8 L ABG Potassium ABG Chloride ABG Glucose 98 H Carboxyhemoglobin 0.4 L Sodium Potassium Chloride Carbon Dioxide BUN Creatinine Glucose POC Glucose 106 H Lactic Acid Calcium Phosphorus AST ALT CK-MB (CK-2) Rel Index Troponin T NT-Pro-B Natriuret Pep Serum Total Protein Total Protein Albumin Thshu-4-Eawazijcz Gamma Globulins PEP Interpretation HDL Cholesterol Arterial Blood Glucose 98 H Arterial Blood Ionized Calcium 4.4 L Urine WBC (Auto) Urine Creatinine Hepatitis C Antibody 11/23/20 11/23/20 11/23/20 10:00 10:00 12:12 WBC RBC Hgb Hct MCV Lymph % (Auto) [place] % (Auto) Lymph # (Auto) [place] # (Auto) Seg Neutrophils % Seg Neuts % (Manual) Nucleated RBC % Seg Neutrophils # Seg Neutrophils # Man Lymphocytes # (Manual) ABG pH POC ABG pCO2 POC ABG pO2 ABG Hemoglobin ABG Sodium ABG Potassium ABG Chloride ABG Glucose Carboxyhemoglobin Sodium Potassium Chloride Carbon Dioxide BUN 22 H Creatinine Glucose 101 H POC Glucose 119 H Lactic Acid Calcium 7.9 L Phosphorus AST ALT CK-MB (CK-2) Rel Index Troponin T NT-Pro-B Natriuret Pep Serum Total Protein 5.3 L Total Protein 5.5 L Albumin 2.8 L 2.8 L Pevbc-8-Zjavnoqyw 0.4 H Gamma Globulins 0.7 L PEP Interpretation see below H HDL Cholesterol Arterial Blood Glucose Arterial Blood Ionized Calcium Urine WBC (Auto) Urine Creatinine Hepatitis C Antibody 11/23/20 11/23/20 11/24/20 18:21 23:28 01:48 WBC RBC Hgb Hct MCV Lymph % (Auto) [place] % (Auto) Lymph # (Auto) [place] # (Auto) Seg Neutrophils % Seg Neuts % (Manual) Nucleated RBC % Seg Neutrophils # Seg Neutrophils # Man Lymphocytes # (Manual) ABG pH 7.281 L POC ABG pCO2 58.4 H POC ABG pO2 ABG Hemoglobin 11.8 L ABG Sodium ABG Potassium ABG Chloride ABG Glucose 101 H Carboxyhemoglobin Sodium Potassium Chloride Carbon Dioxide BUN Creatinine Glucose POC Glucose 106 H 108 H Lactic Acid Calcium Phosphorus AST ALT CK-MB (CK-2) Rel Index Troponin T NT-Pro-B Natriuret Pep Serum Total Protein Total Protein Albumin Tqlzm-3-Dsmhicraf Gamma Globulins PEP Interpretation HDL Cholesterol Arterial Blood Glucose 101 H Arterial Blood Ionized Calcium Urine WBC (Auto) Urine Creatinine Hepatitis C Antibody 11/24/20 11/24/20 11/25/20 09:58 09:58 00:29 WBC RBC Hgb Hct MCV Lymph % (Auto) [place] % (Auto) Lymph # (Auto) [place] # (Auto) Seg Neutrophils % Seg Neuts % (Manual) Nucleated RBC % Seg Neutrophils # Seg Neutrophils # Man Lymphocytes # (Manual) ABG pH POC ABG pCO2 POC ABG pO2 ABG Hemoglobin ABG Sodium ABG Potassium ABG Chloride ABG Glucose Carboxyhemoglobin Sodium 148 H Potassium Chloride Carbon Dioxide 34 H D BUN Creatinine Glucose POC Glucose 111 H Lactic Acid 0.60 L Calcium Phosphorus AST ALT CK-MB (CK-2) Rel Index Troponin T NT-Pro-B Natriuret Pep Serum Total Protein Total Protein Albumin Lwrsn-0-Tfnqhkror Gamma Globulins PEP Interpretation HDL Cholesterol Arterial Blood Glucose Arterial Blood Ionized Calcium Urine WBC (Auto) Urine Creatinine Hepatitis C Antibody 11/25/20 11/25/20 11/25/20 05:48 08:18 08:18 WBC 13.2 H RBC 3.56 L Hgb 10.9 L Hct 34.0 L MCV 96 H Lymph % (Auto) [place] % (Auto) Lymph # (Auto) [place] # (Auto) Seg Neutrophils % Seg Neuts % (Manual) 98.0 H Nucleated RBC % 1.0 H Seg Neutrophils # Seg Neutrophils # Man 12.9 H Lymphocytes # (Manual) 0.0 L ABG pH POC ABG pCO2 POC ABG pO2 ABG Hemoglobin ABG Sodium ABG Potassium ABG Chloride ABG Glucose Carboxyhemoglobin Sodium 147 H Potassium Chloride Carbon Dioxide 32 H BUN 26 H Creatinine Glucose 151 H POC Glucose 148 H Lactic Acid Calcium Phosphorus AST ALT CK-MB (CK-2) Rel Index Troponin T NT-Pro-B Natriuret Pep Serum Total Protein Total Protein 6.0 L Albumin 3.7 L Eexrq-2-Zmtjuvurb Gamma Globulins PEP Interpretation HDL Cholesterol Arterial Blood Glucose Arterial Blood Ionized Calcium Urine WBC (Auto) Urine Creatinine Hepatitis C Antibody 11/25/20 11/25/20 11/25/20 11:34 18:03 23:15 WBC RBC Hgb Hct MCV Lymph % (Auto) [place] % (Auto) Lymph # (Auto) [place] # (Auto) Seg Neutrophils % Seg Neuts % (Manual) Nucleated RBC % Seg Neutrophils # Seg Neutrophils # Man Lymphocytes # (Manual) ABG pH POC ABG pCO2 POC ABG pO2 ABG Hemoglobin ABG Sodium ABG Potassium ABG Chloride ABG Glucose Carboxyhemoglobin Sodium Potassium Chloride Carbon Dioxide BUN Creatinine Glucose POC Glucose 144 H 147 H 158 H Lactic Acid Calcium Phosphorus AST ALT CK-MB (CK-2) Rel Index Troponin T NT-Pro-B Natriuret Pep Serum Total Protein Total Protein Albumin Ixbft-5-Owsnlavmt Gamma Globulins PEP Interpretation HDL Cholesterol Arterial Blood Glucose Arterial Blood Ionized Calcium Urine WBC (Auto) Urine Creatinine Hepatitis C Antibody 11/26/20 11/26/20 11/26/20 05:07 06:22 06:22 WBC 12.3 H RBC 3.52 L Hgb 11.1 L Hct 33.6 L MCV 95 H Lymph % (Auto) [place] % (Auto) Lymph # (Auto) [place] # (Auto) Seg Neutrophils % Seg Neuts % (Manual) Nucleated RBC % Seg Neutrophils # Seg Neutrophils # Man Lymphocytes # (Manual) ABG pH POC ABG pCO2 POC ABG pO2 ABG Hemoglobin ABG Sodium ABG Potassium ABG Chloride ABG Glucose Carboxyhemoglobin Sodium Potassium 3.3 L Chloride 95.8 L Carbon Dioxide 33 H BUN 35 H Creatinine 1.4 H Glucose 185 H POC Glucose 184 H Lactic Acid Calcium Phosphorus AST ALT CK-MB (CK-2) Rel Index Troponin T 0.036 H D NT-Pro-B Natriuret Pep Serum Total Protein Total Protein 6.2 L Albumin 3.1 L Psdty-7-Fesedlnsb Gamma Globulins PEP Interpretation HDL Cholesterol Arterial Blood Glucose Arterial Blood Ionized Calcium Urine WBC (Auto) Urine Creatinine Hepatitis C Antibody 11/26/20 11/26/20 11/26/20 12:52 17:30 23:14 WBC RBC Hgb Hct MCV Lymph % (Auto) [place] % (Auto) Lymph # (Auto) [place] # (Auto) Seg Neutrophils % Seg Neuts % (Manual) Nucleated RBC % Seg Neutrophils # Seg Neutrophils # Man Lymphocytes # (Manual) ABG pH POC ABG pCO2 POC ABG pO2 ABG Hemoglobin ABG Sodium ABG Potassium ABG Chloride ABG Glucose Carboxyhemoglobin Sodium Potassium Chloride Carbon Dioxide BUN Creatinine Glucose POC Glucose 170 H 133 H 149 H Lactic Acid Calcium Phosphorus AST ALT CK-MB (CK-2) Rel Index Troponin T NT-Pro-B Natriuret Pep Serum Total Protein Total Protein Albumin Lgbzs-9-Gjdpdubvo Gamma Globulins PEP Interpretation HDL Cholesterol Arterial Blood Glucose Arterial Blood Ionized Calcium Urine WBC (Auto) Urine Creatinine Hepatitis C Antibody 11/27/20 11/27/20 11/27/20 05:35 08:03 12:02 WBC RBC Hgb Hct MCV Lymph % (Auto) [place] % (Auto) Lymph # (Auto) [place] # (Auto) Seg Neutrophils % Seg Neuts % (Manual) Nucleated RBC % Seg Neutrophils # Seg Neutrophils # Man Lymphocytes # (Manual) ABG pH POC ABG pCO2 POC ABG pO2 ABG Hemoglobin ABG Sodium ABG Potassium ABG Chloride ABG Glucose Carboxyhemoglobin Sodium Potassium Chloride 97.0 L Carbon Dioxide 31 H BUN 41 H Creatinine 1.4 H Glucose 145 H POC Glucose 135 H 139 H Lactic Acid Calcium Phosphorus 2.20 L AST ALT CK-MB (CK-2) Rel Index Troponin T NT-Pro-B Natriuret Pep Serum Total Protein Total Protein Albumin Blljy-7-Silaahhbp Gamma Globulins PEP Interpretation HDL Cholesterol Arterial Blood Glucose Arterial Blood Ionized Calcium Urine WBC (Auto) Urine Creatinine Hepatitis C Antibody 11/27/20 11/28/20 11/28/20 18:41 05:26 06:08 WBC RBC Hgb Hct MCV Lymph % (Auto) [place] % (Auto) Lymph # (Auto) [place] # (Auto) Seg Neutrophils % Seg Neuts % (Manual) Nucleated RBC % Seg Neutrophils # Seg Neutrophils # Man Lymphocytes # (Manual) ABG pH POC ABG pCO2 POC ABG pO2 ABG Hemoglobin ABG Sodium ABG Potassium ABG Chloride ABG Glucose Carboxyhemoglobin Sodium Potassium Chloride Carbon Dioxide BUN 45 H Creatinine 1.4 H Glucose 135 H POC Glucose 148 H 143 H Lactic Acid Calcium Phosphorus AST ALT CK-MB (CK-2) Rel Index Troponin T NT-Pro-B Natriuret Pep Serum Total Protein Total Protein Albumin Syfbu-6-Nwxpylltb Gamma Globulins PEP Interpretation HDL Cholesterol Arterial Blood Glucose Arterial Blood Ionized Calcium Urine WBC (Auto) Urine Creatinine Hepatitis C Antibody 11/28/20 11/28/20 11/28/20 11:46 17:31 21:17 WBC RBC Hgb Hct MCV Lymph % (Auto) [place] % (Auto) Lymph # (Auto) [place] # (Auto) Seg Neutrophils % Seg Neuts % (Manual) Nucleated RBC % Seg Neutrophils # Seg Neutrophils # Man Lymphocytes # (Manual) ABG pH POC ABG pCO2 POC ABG pO2 ABG Hemoglobin ABG Sodium ABG Potassium ABG Chloride ABG Glucose Carboxyhemoglobin Sodium Potassium Chloride Carbon Dioxide BUN Creatinine Glucose POC Glucose 132 H 156 H 122 H Lactic Acid Calcium Phosphorus AST ALT CK-MB (CK-2) Rel Index Troponin T NT-Pro-B Natriuret Pep Serum Total Protein Total Protein Albumin [place]-4-Vsqwvusml Gamma Globulins PEP Interpretation HDL Cholesterol Arterial Blood Glucose Arterial Blood Ionized Calcium Urine WBC (Auto) Urine Creatinine Hepatitis C Antibody 11/29/20 11/29/20 11/29/20 00:06 04:43 05:15 WBC RBC Hgb Hct MCV Lymph % (Auto) [place] % (Auto) Lymph # (Auto) [place] # (Auto) Seg Neutrophils % Seg Neuts % (Manual) Nucleated RBC % Seg Neutrophils # Seg Neutrophils # Man Lymphocytes # (Manual) ABG pH POC ABG pCO2 POC ABG pO2 ABG Hemoglobin ABG Sodium ABG Potassium ABG Chloride ABG Glucose Carboxyhemoglobin Sodium Potassium Chloride 97.7 L Carbon Dioxide BUN 56 H Creatinine 1.6 H Glucose 132 H POC Glucose 114 H 125 H Lactic Acid Calcium Phosphorus AST ALT CK-MB (CK-2) Rel Index Troponin T NT-Pro-B Natriuret Pep Serum Total Protein Total Protein Albumin Ybalc-5-Yhlgyholh Gamma Globulins PEP Interpretation HDL Cholesterol Arterial Blood Glucose Arterial Blood Ionized Calcium Urine WBC (Auto) Urine Creatinine Hepatitis C Antibody 11/29/20 11/29/20 11/30/20 12:09 18:12 04:47 WBC RBC Hgb Hct MCV Lymph % (Auto) [place] % (Auto) Lymph # (Auto) [place] # (Auto) Seg Neutrophils % Seg Neuts % (Manual) Nucleated RBC % Seg Neutrophils # Seg Neutrophils # Man Lymphocytes # (Manual) ABG pH POC ABG pCO2 POC ABG pO2 ABG Hemoglobin ABG Sodium ABG Potassium ABG Chloride ABG Glucose Carboxyhemoglobin Sodium Potassium Chloride Carbon Dioxide 31 H BUN 59 H Creatinine 1.6 H Glucose 122 H POC Glucose 142 H 132 H Lactic Acid Calcium Phosphorus AST ALT CK-MB (CK-2) Rel Index Troponin T NT-Pro-B Natriuret Pep Serum Total Protein Total Protein Albumin Drhnu-1-Zxaaacnba Gamma Globulins PEP Interpretation HDL Cholesterol Arterial Blood Glucose Arterial Blood Ionized Calcium Urine WBC (Auto) Urine Creatinine Hepatitis C Antibody 11/30/20 11/30/20 11/30/20 05:45 11:47 18:16 WBC RBC Hgb Hct MCV Lymph % (Auto) [place] % (Auto) Lymph # (Auto) [place] # (Auto) Seg Neutrophils % Seg Neuts % (Manual) Nucleated RBC % Seg Neutrophils # Seg Neutrophils # Man Lymphocytes # (Manual) ABG pH POC ABG pCO2 POC ABG pO2 ABG Hemoglobin ABG Sodium ABG Potassium ABG Chloride ABG Glucose Carboxyhemoglobin Sodium Potassium Chloride Carbon Dioxide BUN Creatinine Glucose POC Glucose 118 H 123 H 126 H Lactic Acid Calcium Phosphorus AST ALT CK-MB (CK-2) Rel Index Troponin T NT-Pro-B Natriuret Pep Serum Total Protein Total Protein Albumin Ycvwg-5-Zghyaolgh Gamma Globulins PEP Interpretation HDL Cholesterol Arterial Blood Glucose Arterial Blood Ionized Calcium Urine WBC (Auto) Urine Creatinine Hepatitis C Antibody 12/01/20 12/01/20 12/01/20 00:11 04:57 05:41 WBC RBC Hgb Hct MCV Lymph % (Auto) [place] % (Auto) Lymph # (Auto) [place] # (Auto) Seg Neutrophils % Seg Neuts % (Manual) Nucleated RBC % Seg Neutrophils # Seg Neutrophils # Man Lymphocytes # (Manual) ABG pH POC ABG pCO2 POC ABG pO2 ABG Hemoglobin ABG Sodium ABG Potassium ABG Chloride ABG Glucose Carboxyhemoglobin Sodium Potassium Chloride Carbon Dioxide BUN 52 H Creatinine 1.4 H Glucose 121 H POC Glucose 117 H 120 H Lactic Acid Calcium Phosphorus AST ALT CK-MB (CK-2) Rel Index Troponin T NT-Pro-B Natriuret Pep Serum Total Protein Total Protein Albumin Qknnh-0-Heklmbsmq Gamma Globulins PEP Interpretation HDL Cholesterol Arterial Blood Glucose Arterial Blood Ionized Calcium Urine WBC (Auto) Urine Creatinine Hepatitis C Antibody 12/01/20 12/02/20 12/02/20 23:35 06:02 08:09 WBC RBC Hgb Hct MCV Lymph % (Auto) [place] % (Auto) Lymph # (Auto) [place] # (Auto) Seg Neutrophils % Seg Neuts % (Manual) Nucleated RBC % Seg Neutrophils # Seg Neutrophils # Man Lymphocytes # (Manual) ABG pH POC ABG pCO2 POC ABG pO2 ABG Hemoglobin ABG Sodium ABG Potassium ABG Chloride ABG Glucose Carboxyhemoglobin Sodium Potassium Chloride Carbon Dioxide BUN Creatinine Glucose POC Glucose 117 H 108 H 117 H Lactic Acid Calcium Phosphorus AST ALT CK-MB (CK-2) Rel Index Troponin T NT-Pro-B Natriuret Pep Serum Total Protein Total Protein Albumin [id number] Gamma Globulins PEP Interpretation HDL Cholesterol Arterial Blood Glucose Arterial Blood Ionized Calcium Urine WBC (Auto) Urine Creatinine Hepatitis C Antibody 12/02/20 12/02/20 12/02/20 09:40 11:33 17:34 WBC RBC Hgb Hct MCV Lymph % (Auto) [place] % (Auto) Lymph # (Auto) [place] # (Auto) Seg Neutrophils % Seg Neuts % (Manual) Nucleated RBC % Seg Neutrophils # Seg Neutrophils # Man Lymphocytes # (Manual) ABG pH POC ABG pCO2 POC ABG pO2 ABG Hemoglobin ABG Sodium ABG Potassium ABG Chloride ABG Glucose Carboxyhemoglobin Sodium Potassium Chloride 97.6 L Carbon Dioxide 35 H BUN 45 H Creatinine Glucose POC Glucose 109 H 124 H Lactic Acid Calcium Phosphorus AST ALT CK-MB (CK-2) Rel Index Troponin T NT-Pro-B Natriuret Pep Serum Total Protein Total Protein Albumin Qjclu-[id number] Gamma Globulins PEP Interpretation HDL Cholesterol Arterial Blood Glucose Arterial Blood Ionized Calcium Urine WBC (Auto) Urine Creatinine Hepatitis C Antibody 12/03/20 12/03/20 12/03/20 05:40 07:16 16:46 WBC RBC Hgb Hct MCV Lymph % (Auto) [place] % (Auto) Lymph # (Auto) [place] # (Auto) Seg Neutrophils % Seg Neuts % (Manual) Nucleated RBC % Seg Neutrophils # Seg Neutrophils # Man Lymphocytes # (Manual) ABG pH POC ABG pCO2 POC ABG pO2 ABG Hemoglobin ABG Sodium ABG Potassium ABG Chloride ABG Glucose Carboxyhemoglobin Sodium Potassium Chloride Carbon Dioxide BUN 44 H Creatinine Glucose 117 H POC Glucose 115 H 106 H Lactic Acid Calcium Phosphorus AST ALT CK-MB (CK-2) Rel Index Troponin T NT-Pro-B Natriuret Pep Serum Total Protein Total Protein Albumin Tsvkw-[id number] Gamma Globulins PEP Interpretation HDL Cholesterol Arterial Blood Glucose Arterial Blood Ionized Calcium Urine WBC (Auto) Urine Creatinine Hepatitis C Antibody 12/03/20 12/04/20 12/04/20 21:55 07:53 11:43 WBC RBC Hgb Hct MCV Lymph % (Auto) [place] % (Auto) Lymph # (Auto) [place] # (Auto) Seg Neutrophils % Seg Neuts % (Manual) Nucleated RBC % Seg Neutrophils # Seg Neutrophils # Man Lymphocytes # (Manual) ABG pH POC ABG pCO2 POC ABG pO2 ABG Hemoglobin ABG Sodium ABG Potassium ABG Chloride ABG Glucose Carboxyhemoglobin Sodium Potassium Chloride Carbon Dioxide BUN Creatinine Glucose POC Glucose 113 H 110 H 110 H Lactic Acid Calcium Phosphorus AST ALT CK-MB (CK-2) Rel Index Troponin T NT-Pro-B Natriuret Pep Serum Total Protein Total Protein Albumin [id number]-9-[id number] Gamma Globulins PEP Interpretation HDL Cholesterol Arterial Blood Glucose Arterial Blood Ionized Calcium Urine WBC (Auto) Urine Creatinine Hepatitis C Antibody 12/04/20 12/08/20 12/09/20 17:21 09:43 08:43 WBC RBC Hgb Hct MCV Lymph % (Auto) [place] % (Auto) Lymph # (Auto) [place] # (Auto) Seg Neutrophils % Seg Neuts % (Manual) Nucleated RBC % Seg Neutrophils # Seg Neutrophils # Man Lymphocytes # (Manual) ABG pH POC ABG pCO2 POC ABG pO2 ABG Hemoglobin ABG Sodium ABG Potassium ABG Chloride ABG Glucose Carboxyhemoglobin Sodium Potassium Chloride 96.2 L Carbon Dioxide 39 H BUN 34 H Creatinine Glucose POC Glucose 135 H Lactic Acid Calcium Phosphorus AST ALT CK-MB (CK-2) Rel Index Troponin T NT-Pro-B Natriuret Pep 4253 H Serum Total Protein Total Protein Albumin Mxagp-4-Reirujcxk Gamma Globulins PEP Interpretation HDL Cholesterol Arterial Blood Glucose Arterial Blood Ionized Calcium Urine WBC (Auto) Urine Creatinine Hepatitis C Antibody 12/10/20 12/12/20 12/15/20 14:53 12:05 10:20 WBC RBC Hgb Hct MCV Lymph % (Auto) [place] % (Auto) Lymph # (Auto) [place] # (Auto) Seg Neutrophils % Seg Neuts % (Manual) Nucleated RBC % Seg Neutrophils # Seg Neutrophils # Man Lymphocytes # (Manual) ABG pH 7.470 H POC ABG pCO2 53.3 H POC ABG pO2 82.4 L ABG Hemoglobin 10.1 L ABG Sodium 131.3 L ABG Potassium ABG Chloride 89.0 L ABG Glucose 123 H Carboxyhemoglobin Sodium Potassium Chloride 91.9 L 91.9 L Carbon Dioxide 39 H 38 H BUN 46 H 48 H Creatinine Glucose 141 H 142 H POC Glucose Lactic Acid Calcium 8.3 L Phosphorus AST ALT CK-MB (CK-2) Rel Index Troponin T NT-Pro-B Natriuret Pep Serum Total Protein Total Protein Albumin Iwoft-6-Wuofbmysb Gamma Globulins PEP Interpretation HDL Cholesterol Arterial Blood Glucose 123 H Arterial Blood Ionized Calcium 4.3 L Urine WBC (Auto) Urine Creatinine Hepatitis C Antibody
[2020-12-16] MEDS ORDERED: FUROSEMIDE 20 MG/2 ML INJ IV NR (09:57)
[2020-12-16] MEDS ORDERED: oxyCODONE /ACETAMINOPHEN 5-325MG TAB PO PRN (11:00)
--- NOTE | 2020-12-16 14:16 | Event Note ---
Date: 12/16/20 I called [phone] - #5 discussed with the nurse about the P2P. Later I had peer to peer discussion with insurance physician Dr. Casarez, [facility] in detail patient's condition, current treatment, discharge planning , LTAC placement. Dr. Casarez informed that patient is not a candidate for LTAC, and recommended to consider other options like hospice/palliative care. I informed him that we discussed about it in the past with the family and we will readdress it again today/tomorrow, the CODE STATUS, the goals of treatment Hospice and palliative care. I informed transplant case manager and the patient's nurse the above conversation. And we will discuss with patient's son Ana Morejon [phone] [son Katie Hayes [phone]] and offer them the options of hospice/palliative care.
--- NOTE | 2020-12-16 14:35 | Progress Note ---
Assessment and Plan Assessment and plan: Patient continues to require high flow nasal cannula oxygen, 20 L/FiO2 40%/O2 sats 90%/ Patient is lethargic, critically ill looking, in mild distress --Acute hypoxic respiratory failure/Requiring intubation 11/21/2020 s/p extubation 11/23/2020, patient was on noninvasive ventilation Currently on high flow nasal cannula oxygen trended down to 20 L/40% FiO2/96% O2 sats Pulmonary following, unable to wean, patient critically ill, awaiting LTAC placement --Uncontrolled hypertension; blood pressures well controlled today Continue current antihypertensives and as needed medications --Acute exacerbation of COPD; Home oxygen dependent. Patient is on 20 L high flow nasal cannula today BiPAP as needed, wean as tolerated Continue nebulizers, tapering dose of IV steroids, supportive care --Acute kidney injury; resolved Due to vasomotor nephropathy Monitor renal function avoid nephrotoxins --Severe pulmonary hypertension; Management per pulmonary, continue supportive care --Acute metabolic encephalopathy 11/21 CT head shows no acute intracranial abnormality, sinus disease Continue supportive care. As per family patient is back to baseline intermittently --NSTEMI type II Presented with [facility] with elevated troponins cardiology patient had a stress test in 2019 which showed no significant ischemia, Echo; EF 50 to 55% severe pulmonary hypertension moderate mitral stenosis may benefit from HECTOR for evaluation of mitral valve when patient is stable Medical management per cardiology --History of bladder cancer; Indwelling Paulson in place, supportive care Continue Flomax --Urinary tract infection; Completed antibiotics total 5 days --Dyslipidemia; Continue statin and low-cholesterol diet --Hypernatremia ; resolved Patient was hyponatremia on admission ,probably overcorrection Increase oral intake of water/monitor electrolytes --Severe protein calorie malnutrition ; Hypoalbuminemia ,nutrition supplements Nutrition consult and supportive care --Nutrition; cardiac diet as tolerated --DVT prophylaxis; Subcu heparin, SCDs --GI prophylaxis; Continue Prevacid --Full CODE STATUS; PT OT evaluation noted and appreciated Recommend home health PT and OT at discharge Today patient is requiring 15 L nasal cannula oxygen Will wean slowly to 2 to 4 L and plan discharge We will closely monitor the patient and adjust the management as needed Consults and recommendations noted and appreciated Plan of care reviewed with the patient's nurse Patient is critically ill poor prognosis Discussed with family Brief history and daily hospital course: 85-year-old male patient with past medical history of COPD on home oxygen, GERD, hypertension, asthma, hyperlipidemia, vasopressin, bladder cancer admitted for acute hypoxic respiratory failure, intubated on 11/21/2020 managed appropriately evaluated by pulmonary critical subsequently extubated on 11/23/2020, today patient is on high flow nasal cannula oxygen, pulmonary critical, cardiology and nephrology following the patient 11/23: Patient was extubated, currently on BiPAP Mild distress, wean as tolerated 11/25/2020; patient is on BiPAP Mild distress, noncommunicative 11/26/2020; patient is on intermittent BiPAP Currently on high flow nasal cannula oxygen 11/27/2020; patient is more alert and awake Will get swallow screen, if normal start pured diet Transfer the patient to [facility] 11/28/2020; patient is on high flow oxygen slightly better than yesterday Able to tolerate mechanical soft diet when the family comes and helps him DC planning, considering LTAC placement 11/29 Still on HFNC oxygen 11/30 Still on HFNC oxygen 12/01 on 35 liters O2 714/21; patient remains on high flow nasal cannula oxygen requiring 25 L/FiO2 35%/O2 sats 96 Wean as tolerated, awaiting LTAC placement Patient is hemodynamically and clinically stable to be transferred out of [facility] to cardiac telemetry or medical floor with remote telemetry today. 12/04/2020; remains on high flow oxygen 25 L/35%/96% O2 sats Wean as tolerated, pending LTAC placement consider PT OT once patient's respiratory status is stable 12/05/2020; patient feels slightly better more alert and awake Responding to simple questions appropriately, titrated the oxygen Today patient is requiring 3 to 4 L of nasal cannula oxygen Significantly improved from yesterday when he needed 25 L Physical therapy evaluation and treatment, home oxygen evaluation prior to discharge 12/06/2020; patient is requiring 10 L of supplemental oxygen today Wean as tolerated PT OT evaluation recommendations noted, Possible discharge in 1 to 2 days if stable Patient's son Ana Morejon [phone] at the bedside Discussed in detail patient's condition, tests and reports Discharge planning, answered all his questions 12/07/2020; today patient is requiring high flow nasal cannula oxygen, 25 L In mild distress, wean as tolerated to 3 to 4 L nasal cannula DC planning per case management, possible home with home health when patient is medically stable 12/08/2020 today patient is requiring high flow nasal cannula oxygen, but slightly improved patient is at 15 L O2 PT and OT recommend home health PT OT, wean patient off high flow oxygen Titrate to 3 to 4 L nasal cannula, possible discharge in 1 to 2 days if stable And cleared by pulmonary 12/09/2020; patient continues to require high flow nasal cannula oxygen between 15 to 20 L Management per pulmonary. Wean as tolerated I spoke with bilingual Yi speaking granddaughter at the bedside, answered all her questions 12/10/2020; no change clinically, continues to require 20 to 30 L of high flow nasal cannula oxygen If no improvement we will consider transferring to IMCU or ICU for close observation after discussing with pulmonary. 12/11/2020 I spoke to bilingual Yi speaking patient's son Ana Morejon [phone] And discussed in detail patient's condition, treatment plan, poor prognosis, plans of Transferring to [facility] [facility] when bed is available, and the patient is requiring high flow nasal cannula oxygen He verbalized understanding, full CODE STATUS at this point. Answered all his questions. 12/12/2020; patient is more alert and awake, feels slightly better still remains on high flow oxygen however titrating down Closely monitor, awaiting LTAC placement at [place] , discussed with Yi- speaking family member at the bedside today Disposition; wean high flow oxygen as tolerated Discharge when patient is stable Follow pulmonary recommendations Resume service; 12/13/2020; patient remains on high flow oxygen 20 L, unable to wean Patient is lethargic and critically ill looking I spoke with patient's insurance company physician Librado, at [phone] #[phone] Casarez informed that patient is not a candidate for LTAC, and insurance cannot approve it He gave other options of hospice/palliative care. We have addressed palliative care and CODE STATUS in the past with the family We will readdress again today tomorrow, and inquired the goals of treatment the family is interested in the discharge planning. History Interval history: I have seen and examined the patient at the bedside this morning Patient's chart and medications reviewed Patient remains on high flow oxygen 20 L/40 FiO2/O2 sats of 90% Critically ill looking, on high high-dose steroids Noncommunicative Vital signs noted Hospitalist Physical - Constitutional Vitals: Temp Pulse Resp BP Pulse Ox 98.1 F 84 17 142/69 96 12/16/20 09:47 12/16/20 14:00 12/16/20 14:18 12/16/20 11:10 12/16/20 11:00 General appearance: Present: severe distress, well-nourished - EENT Eyes: Present: PERRL, EOM intact - Neck Neck: Present: supple, normal ROM - Respiratory Respiratory effort: normal Respiratory: bilateral: diminished, rhonchi, negative: rales, wheezing - Cardiovascular Rhythm: regular Heart Sounds: Present: S1 & S2 - Extremities Extremities: no ischemia, No edema - Abdominal General gastrointestinal: soft, non-tender, non-distended, normal bowel sounds - Integumentary Integumentary: Present: clear, warm - Psychiatric Psychiatric: appropriate mood/affect, cooperative - Neurologic Neurologic: CNII-XII intact, moves all extremities HEART Score - HEART Score Troponin: Troponin T 0.021 ng/mL (0.00-0.029) 11/29/20 04:43 Results - Labs CBC & Chem 7: 11/28/20 09:21 12/15/20 19:58 Labs: Laboratory Last Values WBC 9.8 K/mm3 (4.5-11.0) 11/28/20 09:21 RBC 4.01 M/mm3 (3.65-5.03) 11/28/20 09:21 Hgb 12.3 gm/dl (11.8-15.2) 11/28/20 09:21 Hct 37.6 % (35.5-45.6) 11/28/20 09:21 MCV 94 fl (84-94) 11/28/20 09:21 MCH 31 pg (28-32) 11/28/20 09:21 MCHC 33 % (32-34) 11/28/20 09:21 RDW 15.1 % (13.2-15.2) 11/28/20 09:21 Plt Count 369 K/mm3 (140-440) 11/28/20 09:21 Lymph % (Auto) 16.1 % (13.4-35.0) 11/23/20 10:00 [place] % (Auto) 15.0 % (0.0-7.3) H 11/23/20 10:00 Eos % (Auto) 1.0 % (0.0-4.3) 11/23/20 10:00 Baso % (Auto) 0.5 % (0.0-1.8) 11/23/20 10:00 Lymph # (Auto) 1.6 K/mm3 (1.2-5.4) 11/23/20 10:00 [place] # (Auto) 1.5 K/mm3 (0.0-0.8) H 11/23/20 10:00 Eos # (Auto) 0.1 K/mm3 (0.0-0.4) 11/23/20 10:00 Baso # (Auto) 0.1 K/mm3 (0.0-0.1) 11/23/20 10:00 Add Manual Diff Complete 11/25/20 08:18 Total Counted 100 11/25/20 08:18 Seg Neutrophils % Hr Shared Services Consultant 11/25/20 08:18 Seg Neuts % (Manual) 98.0 % (40.0-70.0) H 11/25/20 08:18 Monocytes % (Manual) 2.0 % (0.0-7.3) 11/25/20 08:18 Nucleated RBC % 1.0 % (0.0-0.9) H 11/25/20 08:18 Seg Neutrophils # 6.6 K/mm3 (1.8-7.7) 11/23/20 10:00 Seg Neutrophils # Man 12.9 K/mm3 (1.8-7.7) H 11/25/20 08:18 Band Neutrophils # 0.0 K/mm3 11/25/20 08:18 Lymphocytes # (Manual) 0.0 K/mm3 (1.2-5.4) L 11/25/20 08:18 Abs React Lymphs (Man) 0.0 K/mm3 11/25/20 08:18 Monocytes # (Manual) 0.3 K/mm3 (0.0-0.8) 11/25/20 08:18 Eosinophils # (Manual) 0.0 K/mm3 (0.0-0.4) 11/25/20 08:18 Basophils # (Manual) 0.0 K/mm3 (0.0-0.1) 11/25/20 08:18 Metamyelocytes # 0.0 K/mm3 11/25/20 08:18 Myelocytes # 0.0 K/mm3 11/25/20 08:18 Promyelocytes # 43.8 K/mm3 11/25/20 08:18 Blast Cells # 0.0 K/mm3 11/25/20 08:18 WBC Morphology Not Reportable 11/25/20 08:18 Hypersegmented Neuts Not Reportable 11/25/20 08:18 Hyposegmented Neuts Not Reportable 11/25/20 08:18 Hypogranular Neuts Not Reportable 11/25/20 08:18 Smudge Cells Not Reportable 11/25/20 08:18 Toxic Granulation Few 11/25/20 08:18 Toxic Vacuolation Not Reportable 11/25/20 08:18 Dohle Bodies Not Reportable 11/25/20 08:18 Pelger-Huet Anomaly Not Reportable 11/25/20 08:18 Liang Rods Not Reportable 11/25/20 08:18 Platelet Estimate Consistent w auto 11/25/20 08:18 Clumped Platelets Not Reportable 11/25/20 08:18 Plt Clumps, EDTA Not Reportable 11/25/20 08:18 Large Platelets Not Reportable 11/25/20 08:18 Giant Platelets Not Reportable 11/25/20 08:18 Platelet Satelliting Not Reportable 11/25/20 08:18 Plt Morphology Comment Not Reportable 11/25/20 08:18 RBC Morphology Not Reportable 11/25/20 08:18 Dimorphic RBCs Not Reportable 11/25/20 08:18 Polychromasia Not Reportable 11/25/20 08:18 Hypochromasia 1+ 11/25/20 08:18 Poikilocytosis Not Reportable 11/25/20 08:18 Anisocytosis Not Reportable 11/25/20 08:18 Microcytosis Not Reportable 11/25/20 08:18 Macrocytosis Not Reportable 11/25/20 08:18 Spherocytes Not Reportable 11/25/20 08:18 Pappenheimer Bodies Not Reportable 11/25/20 08:18 Sickle Cells Not Reportable 11/25/20 08:18 Target Cells 1+ 11/25/20 08:18 Tear Drop Cells Not Reportable 11/25/20 08:18 Ovalocytes Not Reportable 11/25/20 08:18 Helmet Cells Not Reportable 11/25/20 08:18 [place] Bodies Not Reportable 11/25/20 08:18 Sandy Rings Not Reportable 11/25/20 08:18 Deep Cells Not Reportable 11/25/20 08:18 Bite Cells Not Reportable 11/25/20 08:18 Crenated Cell Not Reportable 11/25/20 08:18 Elliptocytes Not Reportable 11/25/20 08:18 Acanthocytes (Spur) Not Reportable 11/25/20 08:18 Rouleaux Not Reportable 11/25/20 08:18 Hemoglobin C Crystals Not Reportable 11/25/20 08:18 Schistocytes Not Reportable 11/25/20 08:18 Malaria parasites Not Reportable 11/25/20 08:18 Fuad Bodies Not Reportable 11/25/20 08:18 Hem Pathologist Commnt No 11/25/20 08:18 PT 13.5 Sec. (12.2-14.9) 11/21/20 20:50 INR 0.98 (0.87-1.13) 11/21/20 20:50 APTT 32.1 Sec. (24.2-36.6) 11/21/20 20:50 ABG pH 7.470 (7.320-7.450) H 12/15/20 10:20 POC ABG pCO2 53.3 mmHg (32.0-48.0) H 12/15/20 10:20 POC ABG pO2 82.4 mmHg (83-108) L 12/15/20 10:20 POC ABG HCO3 37.9 12/15/20 10:20 ABG O2 Saturation 95.7 (0-100) 12/15/20 10:20 POC ABG Base Excess 12.6 12/15/20 10:20 ABG Hemoglobin 10.1 (12.0-17.5) L 12/15/20 10:20 ABG Oxyhemoglobin 94.6 (94-98) 12/15/20 10:20 ABG Methemoglobin 0.3 (0.0-1.5) 12/15/20 10:20 ABG Sodium 131.3 mmol/L (136.0-145.0) L 12/15/20 10:20 ABG Potassium 3.9 mmol/L (3.40-4.50) 12/15/20 10:20 ABG Chloride 89.0 mmol/L (98-107) L 12/15/20 10:20 ABG Glucose 123 mg/dL (65-95) H 12/15/20 10:20 Carboxyhemoglobin 0.9 (0.5-1.5) 12/15/20 10:20 FiO2 % 50.0 12/15/20 10:20 Sodium 140 mmol/L (137-145) 12/12/20 12:05 Potassium 4.3 mmol/L (3.6-5.0) 12/15/20 19:58 Chloride 91.9 mmol/L (98-107) L 12/12/20 12:05 Carbon Dioxide 38 mmol/L (22-30) H 12/12/20 12:05 Anion Gap 14 mmol/L 12/12/20 12:05 BUN 48 mg/dL (9-20) H 12/12/20 12:05 Creatinine 1.2 mg/dL (0.8-1.3) 12/12/20 12:05 Estimated GFR 57 ml/min 12/12/20 12:05 BUN/Creatinine Ratio 40 % 12/12/20 12:05 Glucose 142 mg/dL (75-100) H 12/12/20 12:05 POC Glucose 135 mg/dL (70-105) H 12/04/20 17:21 Lactic Acid 0.60 mmol/L (0.7-2.0) L 11/24/20 09:58 Calcium 8.3 mg/dL (8.4-10.2) L 12/12/20 12:05 Phosphorus 3.80 mg/dL (2.5-4.5) 12/10/20 14:53 Magnesium 2.00 mg/dL (1.7-2.3) 12/10/20 14:53 Total Bilirubin 0.30 mg/dL (0.1-1.2) 11/26/20 06:22 AST 18 units/L (5-40) 11/26/20 06:22 ALT 22 units/L (7-56) 11/26/20 06:22 Alkaline Phosphatase 55 units/L (35-129) 11/26/20 06:22 Total Creatine Kinase 132 units/L (55-170) 11/22/20 10:20 CK-MB (CK-2) 3.3 ng/mL (0.0-4.0) 11/22/20 10:20 CK-MB (CK-2) Rel Index 2.5 (0-4) 11/22/20 10:20 Troponin T 0.021 ng/mL (0.00-0.029) 11/29/20 04:43 NT-Pro-B Natriuret Pep 4253 pg/mL (0-900) H 12/09/20 08:43 Serum Total Protein 5.3 g/dL (6.1-8.1) L 11/23/20 10:00 Total Protein 6.2 g/dL (6.3-8.2) L 11/26/20 06:22 Albumin 3.1 g/dL (3.9-5) L 11/26/20 06:22 Albumin/Globulin Ratio 1.0 % 11/26/20 06:22 Jdkaa-9-Zprvzgwng 0.4 g/dL (0.2-0.3) H 11/23/20 10:00 Demal-3-Wutdhntve 0.8 g/dL (0.5-0.9) 11/23/20 10:00 Beta Globulins 0.3 g/dL (0.2-0.5) 11/23/20 10:00 Gamma Globulins 0.7 g/dL (0.8-1.7) L 11/23/20 10:00 Abnorm Protein Band 1 see below 11/23/20 10:00 PEP Interpretation see below H 11/23/20 10:00 Triglycerides 84 mg/dL (2-149) 11/21/20 20:50 Cholesterol 125 mg/dL (50-199) 11/21/20 20:50 LDL Cholesterol Direct 57 mg/dL (50-130) 11/21/20 20:50 HDL Cholesterol 60 mg/dL (40-59) H 11/21/20 20:50 Cholesterol/HDL Ratio 2.08 % 11/21/20 20:50 TSH 1.290 mlU/mL (0.270-4.200) 11/21/20 20:50 Free T4 1.18 ng/dL (0.76-1.46) 11/21/20 20:50 Arterial Blood Glucose 123 mg/dL (65-95) H 12/15/20 10:20 Arterial Blood Ionized Calcium 4.3 mg/dL (4.6-5.3) L 12/15/20 10:20 Urine Color Yellow (Yellow) 11/22/20 05:00 Urine Turbidity Slightly-cloudy (Clear) 11/22/20 05:00 Urine pH 5.0 (5.0-7.0) 11/22/20 05:00 Ur Specific [place] 1.016 (1.003-1.030) 11/22/20 05:00 Urine Protein 30 mg/dl mg/dL (Negative) 11/22/20 05:00 Urine Glucose (UA) Neg mg/dL (Negative) 11/22/20 05:00 Urine Ketones Neg mg/dL (Negative) 11/22/20 05:00 Urine Blood Lg (Negative) 11/22/20 05:00 Urine Nitrite Neg (Negative) 11/22/20 05:00 Urine Bilirubin Neg (Negative) 11/22/20 05:00 Urine Urobilinogen < 2.0 mg/dL (<2.0) 11/22/20 05:00 Ur Leukocyte Esterase Tr (Negative) 11/22/20 05:00 Urine WBC (Auto) 33.0 /HPF (0.0-6.0) H 11/22/20 05:00 Urine RBC (Auto) 49.0 /HPF (0.0-6.0) 11/22/20 05:00 U Epithel Cells (Auto) 1.0 /HPF (0-13.0) 11/22/20 05:00 Hyaline Casts 4 /LPF 11/22/20 05:00 Urine Mucus 1+ /HPF 11/22/20 05:00 Urine Eosinophils None seen (None Seen) 11/24/20 17:55 Urine Creatinine 158.2 mg/dL (0.1-20.0) H 11/22/20 00:11 Urine Sodium 39 mmol/L 11/22/20 00:11 Fraction Sodium Excret 0.3 11/22/20 00:11 Urine Opiates Screen Presumptive negative 11/22/20 00:11 Urine Methadone Screen Presumptive negative 11/22/20 00:11 Ur Barbiturates Screen Presumptive negative 11/22/20 00:11 Ur Phencyclidine Scrn Presumptive negative 11/22/20 00:11 Ur Amphetamines Screen Presumptive negative 11/22/20 00:11 U Benzodiazepines Scrn Presumptive negative 11/22/20 00:11 Urine Cocaine Screen Presumptive negative 11/22/20 00:11 U Marijuana (THC) Screen Presumptive negative 11/22/20 00:11 Drugs of Abuse Note Disclamer 11/22/20 00:11 Plasma/Serum Alcohol < 0.01 % (0-0.07) 11/21/20 20:50 Proteinase 3 (PR3) Ab <1.0 AI (<1.0) 11/22/20 16:00 Myeloperoxidase Ab <1.0 AI (<1.0) 11/22/20 16:00 Double Strand DNA Ab 1 IU/mL (<=4) 11/22/20 16:00 Complement C3 93 mg/dL () 11/22/20 16:00 Complement C4 25 mg/dL () 11/22/20 16:00 Coronavirus (PCR) Negative (Negative) 11/23/20 09:30 Hepatitis A IgM Ab Non-reactive (NonReactive) 11/22/20 16:00 Hep Bs Antigen Non-reactive (Negative) 11/22/20 16:00 Hep B Core IgM Ab Non-reactive (NonReactive) 11/22/20 16:00 Hepatitis C Antibody Reactive (NonReactive) A 11/22/20 16:00 Paulson/IV: Voiding Method Condom Catheter Active Medications - Current Medications Current Medications: Generic Name Dose Route Start Last Admin Trade Name Freq PRN Reason Stop Dose Admin Acetaminophen 650 mg 11/23/20 15:29 12/15/20 17:58 Acetaminophen 325 Mg Tab PO 650 mg Q4H PRN Administration Pain, Mild (1-3) Albuterol 2.5 mg 11/22/20 01:19 Albuterol 2.5 Mg/3 Ml Nebu IH Q4HRT PRN Shortness Of Breath Albuterol/Ipratropium 1 ampul 12/11/20 08:00 12/16/20 14:02 Ipratropium/Albuterol Sulfate 3 Ml Ampul.Neb IH 1 ampul TIDRT TERESA Administration Lipase/Protease/Amylase 1 each 11/22/20 09:07 Lipase 10,500/Protease 25,000/Amylase 43,750 (Units) Dr Cyr FEEDTUBE PRN PRN For Clogged Feeding Tube Aspirin 81 mg 11/23/20 10:00 12/16/20 09:37 Aspirin 81 Mg Tab Chew PO 81 mg QDAY TERESA Administration Atorvastatin Calcium 40 mg 11/22/20 22:00 12/15/20 21:50 Atorvastatin 40 Mg Tab PO 40 mg QHS TERESA Administration Budesonide 0.5 mg 11/24/20 14:55 12/16/20 08:34 Budesonide 0.5 Mg/2 Ml Nebu IH 0.5 mg Q12HRT TERESA Administration Carvedilol 12.5 mg 12/03/20 22:00 12/16/20 09:39 Carvedilol 12.5 Mg Tab PO 12.5 mg BID TERESA Administration Heparin Sodium (Porcine) 5,000 unit 11/22/20 06:00 12/16/20 14:19 Heparin 5,000 Unit/1 Ml Vial SUB-Q 5,000 unit Q8HR TERESA Administration Hydralazine HCl 10 mg 11/22/20 01:24 12/16/20 04:52 Hydralazine 20 Mg/1 Ml Inj IV 10 mg Q6H PRN Administration Blood Pressure Lactulose 20 gm 12/13/20 17:02 12/13/20 17:10 Lactulose 20 Gm/30 Ml Oral Liqd PO 20 gm QDAY PRN Administration Constipation Lansoprazole 30 mg 11/28/20 10:00 12/16/20 09:37 Lansoprazole 30 Mg Solutab FEEDTUBE 30 mg QDAY TERESA Administration Methylprednisolone Sodium Succinate 60 mg 12/08/20 12:00 12/16/20 13:03 Methylprednisolone Sod Succinate 125 Mg/2 Ml Inj IV 60 mg Q6HR TERESA Administration Nitroglycerin 0.4 mg 11/22/20 01:25 12/06/20 05:22 Nitroglycerin 0.4 Mg Tab Subl SL 0.4 mg Q5M PRN Administration Chest Pain Ondansetron HCl 4 mg 11/22/20 01:19 Ondansetron 4 Mg/2 Ml Inj IV Q8H PRN Nausea And Vomiting Oxycodone/Acetaminophen 1 tab 12/16/20 11:00 12/16/20 14:18 Oxycodone /Acetaminophen 5-325mg Tab PO 1 tab Q6H PRN Administration Pain, Moderate (4-6) Quetiapine Fumarate 25 mg 11/27/20 12:00 12/16/20 09:37 Quetiapine 25 Mg Tab PO 25 mg BID TERESA Administration Senna/Docusate Sodium 1 tab 11/22/20 10:00 12/16/20 09:37 Sennosides/Docusate Sodium 8.6/50 Mg Tab FEEDTUBE 1 tab BID TERESA Administration Simple Syrup 15 ml 11/22/20 09:07 Simple Syrup 15 Ml FEEDTUBE PRN PRN Hypoglycemia Simple Syrup 30 ml 11/22/20 09:07 Simple Syrup 15 Ml FEEDTUBE PRN PRN Hypoglycemia Sodium Bicarbonate 325 mg 11/22/20 09:07 Sodium Bicarbonate 325 Mg Tab FEEDTUBE PRN PRN For Clogged Feeding Tube Sodium Chloride 10 ml 11/22/20 10:00 12/16/20 09:37 Sodium Chloride 0.9% 10 Ml Flush Syringe IV 10 ml BID TERESA Administration Sodium Chloride 10 ml 11/22/20 01:19 12/16/20 05:39 Sodium Chloride 0.9% 10 Ml Flush Syringe IV 10 ml PRN PRN Administration LINE FLUSH Tamsulosin HCl 0.4 mg 11/22/20 10:00 12/16/20 09:37 Tamsulosin 0.4 Mg Cap PO 0.4 mg DAILY TERESA Administration Nutrition/Malnutrition Assess - Dietary Evaluation Nutrition/Malnutrition Findings: Nutrition Notes Start: 11/22/20 08:53 Freq: Status: Active Protocol: Document 12/11/20 11:03 FREDRICK (Rec: 12/11/20 11:08 [facility] [id number]) Nutrition Notes Initial or Follow up Reassessment Current Diagnosis COPD,Hypertension,Respiratory Failure Other Pertinent Diagnosis Encephalopathy, UTI, pulmonary HTN Current Diet [facility] soft Labs/Tests Reviewed Pertinent Medications Lasix Height 5 ft 3 in Weight 72.6 kg [place] Body Weight (kg) 56.36 BMI 28.3 Weight change and time frame wt change noted; 12.4% wt loss x 6 days Weight Status Overweight Subjective/Other Information No PO intakes documented since last assessment. Pt still requires high-flow oxygen via nasal cannula. Burn Absent Trauma Absent #1 Nutrition Diagnosis Inadequate oral intake Diagnosis Progress(for reassessment Continues documentation) Is patient on ventilator? No Is Patient Ambulatory and/or Out of Bed No REE-(Dol[place]-St. Jeor-confined to bed) [phone] Calculation Used for Recommendations [place]-St Jeor Additional Notes Pro needs 1-1.2g/k-87g/ day Fluid needs 1ml/kcal Nutrition Intervention Change Diet Order: Continue current diet order Goal #1 PO intake to meet at least 75% energy and pro needs Follow-Up By: 12/16/20 Additional Comments F/U: intakes, POC
--- NOTE | 2020-12-16 18:09 | Event Note ---
Date: 12/16/20 I tried to call patient's son Katie Hayes at [phone] to discuss about patient's condition, and my discussions with insurance physician for LTAC placement And Dr. Casarez's recommendations, CODE STATUS, goals of treatment, options of hospice, however I could not reach him, his male box is full could not leave a message I tried twice, unsuccessful, I also tried to call the other family member, unable to reach, will try to contact family tomorrow and discuss the goals of treatment and discharge planning, including hospice, inpatient versus a t home options
--- NOTE | 2020-12-16 22:27 | Event Note ---
Date: 12/16/20 Patient was found altered mental status. CODE BLUE was called but patient was found to have pulse of 86, BP 174/81 and O2 sat 98%. Patient is responding to painful stimuli. ABGs drawn we will transfer the patient to the [facility] for further evaluation and treatment. We will monitor the patient closely
[2020-12-17] MEDS: hydrALAZINE 20 MG/1 ML INJ IV PRN (01:10)
[2020-12-17] MEDS: methylPREDNISolone Sod Succinate 125 MG/2 ML INJ IV SCH ×4 (01:10→17:36)
[2020-12-17] MEDS: HEPARIN 5,000 UNIT/1 ML VIAL SUB-Q SCH ×3 (05:00→21:56)
[2020-12-17 05:33] LABS: Hematocrit 29.2 % (35.5-45.6); Hemoglobin 9.7 gm/dl (11.8-15.2); Mean Corpuscular HGB Conc 33 % (32-34); Mean Corpuscular Volume 92 fl (84-94); Platelet Count 153 K/mm3 (140-440); Red Blood Count 3.16 M/mm3 (3.65-5.03); Red Cell Distribution Width 14.6 % (13.2-15.2)
[2020-12-17 05:41] LABS: Alanine Aminotransferase 26 units/L (7-56); Albumin 2.9 g/dL (3.9-5); BUN/Creatinine Ratio 33; Blood Urea Nitrogen 36 mg/dL (9-20); Calcium 8.6 mg/dL (8.4-10.2); Hemolysis Index 2
[2020-12-17] MEDS: BUDESONIDE 0.5 MG/2 ML NEBU IH SCH ×2 (08:48→20:03)
[2020-12-17] MEDS: IPRATROPIUM/ALBUTEROL SULFATE 3 ML AMPUL.NEB IH SCH ×3 (08:49→20:03)
--- NOTE | 2020-12-17 09:30 | Progress Note ---
Assessment and Plan Assessment and plan: Patient was briefly unresponsive last night, code met/CODE BLUE was called However patient did not lose pulse, evaluated by covering hospitalist, transfer the patient to [facility] For close observation Patient continues to require high flow nasal cannula oxygen, 25 L/FiO2 50%/O2 sats 100%/ Patient is lethargic, critically ill looking, in mild distress --Acute hypoxic respiratory failure/Requiring intubation 11/21/2020 s/p extubation 11/23/2020, patient was on noninvasive ventilation Currently on high flow nasal cannula oxygen trended down to 20 L/40% FiO2/96% O2 sats Pulmonary following, unable to wean, patient critically ill, awaiting LTAC placement --Uncontrolled hypertension; blood pressures well controlled today Continue current antihypertensives and as needed medications --Acute exacerbation of COPD; Home oxygen dependent. Patient is on 20 L high flow nasal cannula today BiPAP as needed, wean as tolerated Continue nebulizers, tapering dose of IV steroids, supportive care --Acute kidney injury; resolved Due to vasomotor nephropathy Monitor renal function avoid nephrotoxins --Severe pulmonary hypertension; Management per pulmonary, continue supportive care --Acute metabolic encephalopathy 11/21 CT head shows no acute intracranial abnormality, sinus disease Continue supportive care. As per family patient is back to baseline intermittently --NSTEMI type II Presented with [facility] with elevated troponins cardiology patient had a stress test in 2019 which showed no significant ischemia, Echo; EF 50 to 55% severe pulmonary hypertension moderate mitral stenosis may benefit from HECTOR for evaluation of mitral valve when patient is stable Medical management per cardiology --History of bladder cancer; Indwelling Paulson in place, supportive care Continue Flomax --Urinary tract infection; Completed antibiotics total 5 days --Dyslipidemia; Continue statin and low-cholesterol diet --Hypernatremia ; resolved Patient was hyponatremia on admission ,probably overcorrection Increase oral intake of water/monitor electrolytes --Severe protein calorie malnutrition ; Hypoalbuminemia ,nutrition supplements Nutrition consult and supportive care --Nutrition; cardiac diet as tolerated --DVT prophylaxis; Subcu heparin, SCDs --GI prophylaxis; Continue Prevacid --Full CODE STATUS; PT OT evaluation noted and appreciated Recommend home health PT and OT at discharge Today patient is requiring 15 L nasal cannula oxygen Will wean slowly to 2 to 4 L and plan discharge We will closely monitor the patient and adjust the management as needed Consults and recommendations noted and appreciated Plan of care reviewed with the patient's nurse Patient is critically ill poor prognosis I called patient's son Katie Hyaes at [phone] and discussed patient's condition, poor prognosis, option of hospice Patient is stable to be transferred back to the floor Critical care time 40 minutes The high probability of a clinically significant, sudden or life threatening deterioration of the [neuro, respiratory, pulmonary, metabolic l] system(s) required my full and direct attention, intervention and personal management. The aggregate critical care time was [40] minutes. This time is in addition to time spent performing reported procedures but includes the following: [x] Data Review and interpretation [x] Patient assessment and monitoring of vital signs [x] Documentation [x] Medication orders and management Brief history and daily hospital course: 85-year-old male patient with past medical history of COPD on home oxygen, GERD, hypertension, asthma, hyperlipidemia, vasopressin, bladder cancer admitted for acute hypoxic respiratory failure, intubated on 11/21/2020 managed ap propriately evaluated by pulmonary critical subsequently extubated on 11/23/2020, today patient is on high flow nasal cannula oxygen, pulmonary critical, cardiology and nephrology following the patient 11/23: Patient was extubated, currently on BiPAP Mild distress, wean as tolerated 11/25/2020; patient is on BiPAP Mild distress, noncommunicative 11/26/2020; patient is on intermittent BiPAP Currently on high flow nasal cannula oxygen 11/27/2020; patient is more alert and awake Will get swallow screen, if normal start pured diet Transfer the patient to [facility] 11/28/2020; patient is on high flow oxygen slightly better than yesterday Able to tolerate mechanical soft diet when the family comes and helps him DC planning, considering LTAC placement 11/29 Still on HFNC oxygen 11/30 Still on HFNC oxygen 12/01 on 35 liters O2 714/21; patient remains on high flow nasal cannula oxygen requiring 25 L/FiO2 3 5%/O2 sats 96 Wean as tolerated, awaiting LTAC placement Patient is hemodynamically and clinically stable to be transferred out of [facility] to cardiac telemetry or medical floor with remote telemetry today. 12/04/2020; remains on high flow oxygen 25 L/35%/96% O2 sats Wean as tolerated, pending LTAC placement consider PT OT once patient's respiratory status is stable 12/05/2020; patient feels slightly better more alert and awake Responding to simple questions appropriately, titrated the oxygen Today patient is requiring 3 to 4 L of nasal cannula oxygen Significantly improved from yesterday when he needed 25 L Physical therapy evaluation and treatment, home oxygen evaluation prior to discharge 12/06/2020; patient is requiring 10 L of supplemental oxygen today Wean as tolerated PT OT evaluation recommendations noted, Possible discharge in 1 to 2 days if stable Patient's son Ana Miller [phone] at the bedside Discussed in detail patient's condition, tests and reports Discharge planning, answered all his questions 12/07/2020; today patient is requiring high flow nasal cannula oxygen, 25 L In mild distress, wean as tolerated to 3 to 4 L nasal cannula DC planning per case management, possible home with home health when patient is medically stable 12/08/2020 today patient is requiring high flow nasal cannula oxygen, but slightly improved patient is at 15 L O2 PT and OT recommend home health PT OT, wean patient off high flow oxygen Titrate to 3 to 4 L nasal cannula, possible discharge in 1 to 2 days if stable And cleared by pulmonary 12/09/2020; patient continues to require high flow nasal cannula oxygen between 15 to 20 L Management per pulmonary. Wean as tolerated I spoke with bilingual Kyrgyz speaking granddaughter at the bedside, answered all her questions 12/10/2020; no change clinically, continues to require 20 to 30 L of high flow nasal cannula oxygen If no improvement we will consider transferring to IMCU or ICU for close observation after discussing with pulmonary. 12/11/2020 I spoke to bilingual Kyrgyz speaking patient's son Ana Miller [phone] And discussed in detail patient's condition, treatment plan, poor prognosis, plans of Transferring to [place] [facility] when bed is available, and the patient is requiring high flow nasal cannula oxygen He verbalized understanding, full CODE STATUS at this point. Answered all his questions. 12/12/2020; patient is more alert and awake, feels slightly better still remains on high flow oxygen however titrating down Closely monitor, awaiting LTAC placement at [place] , discussed with Kyrgyz- speaking family member at the bedside today Disposition; wean high flow oxygen as tolerated Discharge when patient is stable Follow pulmonary recommendations Resume service; 12/16/2020; patient remains on high flow oxygen 20 L, unable to wean Patient is lethargic and critically ill looking I spoke with patient's insurance company physician Librado, at [phone] Casarez informed that patient is not a candidate for LTAC, and insurance cannot approve it He gave other options of hospice/palliative care. We have addressed palliative care and CODE STATUS in the past with the family We will readdress again today tomorrow, and inquired the goals of treatment the family is interested in the discharge planning. 12/17/2020; I spoke with patient's son I called patient's son Katie Hayes at [phone] and discussed patient's condition, poor prognosis, History Interval history: Last night events noted Patient had brief episode of unresponsiveness, code met was called Patient was transferred to [facility] for close observation Patient is chronically ill looking, noncommunicative Remains on high flow oxygen at 25 L/50% FiO2/100% O2 sats Vital signs noted Hospitalist Physical - Constitutional Vitals: Temp Pulse Resp BP Pulse Ox 98.8 F 82 22 176/74 100 12/17/20 03:40 12/17/20 08:52 12/17/20 08:52 12/17/20 08:00 12/17/20 08:52 General appearance: Present: mild distress, well-nourished, other (Noncommunicative) - EENT Eyes: Present: PERRL, EOM intact - Neck Neck: Present: supple, normal ROM - Respiratory Respiratory effort: normal Respiratory: bilateral: diminished, rhonchi, negative: rales, wheezing - Cardiovascular Rhythm: regular Heart Sounds: Present: S1 & S2 - Extremities Extremities: no ischemia, No edema - Abdominal General gastrointestinal: soft, non-tender, non-distended, normal bowel sounds - Integumentary Integumentary: Present: clear, warm - Psychiatric Psychiatric: other (Noncommunicative) - Neurologic Neurologic: moves all extremities HEART Score - HEART Score Troponin: Troponin T 0.021 ng/mL (0.00-0.029) 11/29/20 04:43 Results - Labs CBC & Chem 7: 12/17/20 04:28 12/17/20 04:28 Labs: Laboratory Last Values WBC 13.4 K/mm3 (4.5-11.0) H 12/17/20 04:28 RBC 3.16 M/mm3 (3.65-5.03) L 12/17/20 04:28 Hgb 9.7 gm/dl (11.8-15.2) L 12/17/20 04:28 Hct 29.2 % (35.5-45.6) L 12/17/20 04:28 MCV 92 fl (84-94) 12/17/20 04:28 MCH 31 pg (28-32) 12/17/20 04:28 MCHC 33 % (32-34) 12/17/20 04:28 RDW 14.6 % (13.2-15.2) 12/17/20 04:28 Plt Count 153 K/mm3 (140-440) 12/17/20 04:28 Lymph % (Auto) 16.1 % (13.4-35.0) 11/23/20 10:00 [place] % (Auto) 15.0 % (0.0-7.3) H 11/23/20 10:00 Eos % (Auto) 1.0 % (0.0-4.3) 11/23/20 10:00 Baso % (Auto) 0.5 % (0.0-1.8) 11/23/20 10:00 Lymph # (Auto) 1.6 K/mm3 (1.2-5.4) 11/23/20 10:00 [place] # (Auto) 1.5 K/mm3 (0.0-0.8) H 11/23/20 10:00 Eos # (Auto) 0.1 K/mm3 (0.0-0.4) 11/23/20 10:00 Baso # (Auto) 0.1 K/mm3 (0.0-0.1) 11/23/20 10:00 Add Manual Diff Complete 11/25/20 08:18 Total Counted 100 11/25/20 08:18 Seg Neutrophils % Technology Teacher 11/25/20 08:18 Seg Neuts % (Manual) 98.0 % (40.0-70.0) H 11/25/20 08:18 Monocytes % (Manual) 2.0 % (0.0-7.3) 11/25/20 08:18 Nucleated RBC % 1.0 % (0.0-0.9) H 11/25/20 08:18 Seg Neutrophils # 6.6 K/mm3 (1.8-7.7) 11/23/20 10:00 Seg Neutrophils # Man 12.9 K/mm3 (1.8-7.7) H 11/25/20 08:18 Band Neutrophils # 0.0 K/mm3 11/25/20 08:18 Lymphocytes # (Manual) 0.0 K/mm3 (1.2-5.4) L 11/25/20 08:18 Abs React Lymphs (Man) 0.0 K/mm3 11/25/20 08:18 Monocytes # (Manual) 0.3 K/mm3 (0.0-0.8) 11/25/20 08:18 Eosinophils # (Manual) 0.0 K/mm3 (0.0-0.4) 11/25/20 08:18 Basophils # (Manual) 0.0 K/mm3 (0.0-0.1) 11/25/20 08:18 Metamyelocytes # 0.0 K/mm3 11/25/20 08:18 Myelocytes # 0.0 K/mm3 11/25/20 08:18 Promyelocytes # 43.8 K/mm3 11/25/20 08:18 Blast Cells # 0.0 K/mm3 11/25/20 08:18 WBC Morphology Not Reportable 11/25/20 08:18 Hypersegmented Neuts Not Reportable 11/25/20 08:18 Hyposegmented Neuts Not Reportable 11/25/20 08:18 Hypogranular Neuts Not Reportable 11/25/20 08:18 Smudge Cells Not Reportable 11/25/20 08:18 Toxic Granulation Few 11/25/20 08:18 Toxic Vacuolation Not Reportable 11/25/20 08:18 Dohle Bodies Not Reportable 11/25/20 08:18 Pelger-Huet Anomaly Not Reportable 11/25/20 08:18 Liang Rods Not Reportable 11/25/20 08:18 Platelet Estimate Consistent w auto 11/25/20 08:18 Clumped Platelets Not Reportable 11/25/20 08:18 Plt Clumps, EDTA Not Reportable 11/25/20 08:18 Large Platelets Not Reportable 11/25/20 08:18 Giant Platelets Not Reportable 11/25/20 08:18 Platelet Satelliting Not Reportable 11/25/20 08:18 Plt Morphology Comment Not Reportable 11/25/20 08:18 RBC Morphology Not Reportable 11/25/20 08:18 Dimorphic RBCs Not Reportable 11/25/20 08:18 Polychromasia Not Reportable 11/25/20 08:18 Hypochromasia 1+ 11/25/20 08:18 Poikilocytosis Not Reportable 11/25/20 08:18 Anisocytosis Not Reportable 11/25/20 08:18 Microcytosis Not Reportable 11/25/20 08:18 Macrocytosis Not Reportable 11/25/20 08:18 Spherocytes Not Reportable 11/25/20 08:18 Pappenheimer Bodies Not Reportable 11/25/20 08:18 Sickle Cells Not Reportable 11/25/20 08:18 Target Cells 1+ 11/25/20 08:18 Tear Drop Cells Not Reportable 11/25/20 08:18 Ovalocytes Not Reportable 11/25/20 08:18 Helmet Cells Not Reportable 11/25/20 08:18 [place] Bodies Not Reportable 11/25/20 08:18 Allen Rings Not Reportable 11/25/20 08:18 Deep Cells Not Reportable 11/25/20 08:18 Bite Cells Not Reportable 11/25/20 08:18 Crenated Cell Not Reportable 11/25/20 08:18 Elliptocytes Not Reportable 11/25/20 08:18 Acanthocytes (Spur) Not Reportable 11/25/20 08:18 Rouleaux Not Reportable 11/25/20 08:18 Hemoglobin C Crystals Not Reportable 11/25/20 08:18 Schistocytes Not Reportable 11/25/20 08:18 Malaria parasites Not Reportable 11/25/20 08:18 Fuad Bodies Not Reportable 11/25/20 08:18 Hem Pathologist Commnt No 11/25/20 08:18 PT 13.5 Sec. (12.2-14.9) 11/21/20 20:50 INR 0.98 (0.87-1.13) 11/21/20 20:50 APTT 32.1 Sec. (24.2-36.6) 11/21/20 20:50 ABG pH 7.517 (7.320-7.450) H 12/17/20 06:13 POC ABG pCO2 54.0 mmHg (32.0-48.0) H 12/17/20 06:13 POC ABG pO2 33.3 mmHg (83-108) L 12/17/20 06:13 POC ABG HCO3 42.8 12/17/20 06:13 ABG O2 Saturation 66.7 (0-100) 12/17/20 06:13 POC ABG Base Excess 17.7 12/17/20 06:13 ABG Hemoglobin 10.1 (12.0-17.5) L 12/17/20 06:13 ABG Oxyhemoglobin 65.9 (94-98) L 12/17/20 06:13 ABG Methemoglobin 0.3 (0.0-1.5) 12/17/20 06:13 ABG Sodium 131.5 mmol/L (136.0-145.0) L 12/17/20 06:13 ABG Potassium 3.2 mmol/L (3.40-4.50) L 12/17/20 06:13 ABG Chloride 87.0 mmol/L (98-107) L 12/17/20 06:13 ABG Glucose 116 mg/dL (65-95) H 12/17/20 06:13 Carboxyhemoglobin 0.9 (0.5-1.5) 12/17/20 06:13 FiO2 % 60.0 12/17/20 06:13 Sodium 135 mmol/L (137-145) L 12/17/20 04:28 Potassium 3.1 mmol/L (3.6-5.0) L D 12/17/20 04:28 Chloride 85.9 mmol/L (98-107) L 12/17/20 04:28 Carbon Dioxide 41 mmol/L (22-30) H* 12/17/20 04:28 Anion Gap 11 mmol/L 12/17/20 04:28 BUN 36 mg/dL (9-20) H 12/17/20 04:28 Creatinine 1.1 mg/dL (0.8-1.3) 12/17/20 04:28 Estimated GFR > 60 ml/min 12/17/20 04:28 BUN/Creatinine Ratio 33 % 12/17/20 04:28 Glucose 110 mg/dL (75-100) H 12/17/20 04:28 POC Glucose 137 mg/dL (70-105) H 12/16/20 22:04 Lactic Acid 0.60 mmol/L (0.7-2.0) L 11/24/20 09:58 Calcium 8.6 mg/dL (8.4-10.2) 12/17/20 04:28 Phosphorus 3.20 mg/dL (2.5-4.5) 12/17/20 04:28 Magnesium 2.10 mg/dL (1.7-2.3) 12/17/20 04:28 Total Bilirubin 0.90 mg/dL (0.1-1.2) 12/17/20 04:28 AST 27 units/L (5-40) 12/17/20 04:28 ALT 26 units/L (7-56) 12/17/20 04:28 Alkaline Phosphatase 55 units/L (35-129) 12/17/20 04:28 Total Creatine Kinase 132 units/L (55-170) 11/22/20 10:20 CK-MB (CK-2) 3.3 ng/mL (0.0-4.0) 11/22/20 10:20 CK-MB (CK-2) Rel Index 2.5 (0-4) 11/22/20 10:20 Troponin T 0.021 ng/mL (0.00-0.029) 11/29/20 04:43 NT-Pro-B Natriuret Pep 4253 pg/mL (0-900) H 12/09/20 08:43 Serum Total Protein 5.3 g/dL (6.1-8.1) L 11/23/20 10:00 Total Protein 5.1 g/dL (6.3-8.2) L 12/17/20 04:28 Albumin 2.9 g/dL (3.9-5) L 12/17/20 04:28 Albumin/Globulin Ratio 1.3 % 12/17/20 04:28 Yxllj-1-Kgnovmcxo 0.4 g/dL (0.2-0.3) H 11/23/20 10:00 Gyomj-5-Drzhtsuob 0.8 g/dL (0.5-0.9) 11/23/20 10:00 Beta Globulins 0.3 g/dL (0.2-0.5) 11/23/20 10:00 Gamma Globulins 0.7 g/dL (0.8-1.7) L 11/23/20 10:00 Abnorm Protein Band 1 see below 11/23/20 10:00 PEP Interpretation see below H 11/23/20 10:00 Triglycerides 84 mg/dL (2-149) 11/21/20 20:50 Cholesterol 125 mg/dL (50-199) 11/21/20 20:50 LDL Cholesterol Direct 57 mg/dL (50-130) 11/21/20 20:50 HDL Cholesterol 60 mg/dL (40-59) H 11/21/20 20:50 Cholesterol/HDL Ratio 2.08 % 11/21/20 20:50 TSH 1.290 mlU/mL (0.270-4.200) 11/21/20 20:50 Free T4 1.18 ng/dL (0.76-1.46) 11/21/20 20:50 Arterial Blood Glucose 116 mg/dL (65-95) H 12/17/20 06:13 Arterial Blood Ionized Calcium 4.3 mg/dL (4.6-5.3) L 12/17/20 06:13 Urine Color Yellow (Yellow) 11/22/20 05:00 Urine Turbidity Slightly-cloudy (Clear) 11/22/20 05:00 Urine pH 5.0 (5.0-7.0) 11/22/20 05:00 Ur Specific [place] 1.016 (1.003-1.030) 11/22/20 05:00 Urine Protein 30 mg/dl mg/dL (Negative) 11/22/20 05:00 Urine Glucose (UA) Neg mg/dL (Negative) 11/22/20 05:00 Urine Ketones Neg mg/dL (Negative) 11/22/20 05:00 Urine Blood Lg (Negative) 11/22/20 05:00 Urine Nitrite Neg (Negative) 11/22/20 05:00 Urine Bilirubin Neg (Negative) 11/22/20 05:00 Urine Urobilinogen < 2.0 mg/dL (<2.0) 11/22/20 05:00 Ur Leukocyte Esterase Tr (Negative) 11/22/20 05:00 Urine WBC (Auto) 33.0 /HPF (0.0-6.0) H 11/22/20 05:00 Urine RBC (Auto) 49.0 /HPF (0.0-6.0) 11/22/20 05:00 U Epithel Cells (Auto) 1.0 /HPF (0-13.0) 11/22/20 05:00 Hyaline Casts 4 /LPF 11/22/20 05:00 Urine Mucus 1+ /HPF 11/22/20 05:00 Urine Eosinophils None seen (None Seen) 11/24/20 17:55 Urine Creatinine 158.2 mg/dL (0.1-20.0) H 11/22/20 00:11 Urine Sodium 39 mmol/L 11/22/20 00:11 Fraction Sodium Excret 0.3 11/22/20 00:11 Urine Opiates Screen Presumptive negative 11/22/20 00:11 Urine Methadone Screen Presumptive negative 11/22/20 00:11 Ur Barbiturates Screen Presumptive negative 11/22/20 00:11 Ur Phencyclidine Scrn Presumptive negative 11/22/20 00:11 Ur Amphetamines Screen Presumptive negative 11/22/20 00:11 U Benzodiazepines Scrn Presumptive negative 11/22/20 00:11 Urine Cocaine Screen Presumptive negative 11/22/20 00:11 U Marijuana (THC) Screen Presumptive negative 11/22/20 00:11 Drugs of Abuse Note Disclamer 11/22/20 00:11 Plasma/Serum Alcohol < 0.01 % (0-0.07) 11/21/20 20:50 Proteinase 3 (PR3) Ab <1.0 AI (<1.0) 11/22/20 16:00 Myeloperoxidase Ab <1.0 AI (<1.0) 11/22/20 16:00 Double Strand DNA Ab 1 IU/mL (<=4) 11/22/20 16:00 Complement C3 93 mg/dL () 11/22/20 16:00 Complement C4 25 mg/dL () 11/22/20 16:00 Coronavirus (PCR) Negative (Negative) 11/23/20 09:30 Hepatitis A IgM Ab Non-reactive (NonReactive) 11/22/20 16:00 Hep Bs Antigen Non-reactive (Negative) 11/22/20 16:00 Hep B Core IgM Ab Non-reactive (NonReactive) 11/22/20 16:00 Hepatitis C Antibody Reactive (NonReactive) A 11/22/20 16:00 Paulson/IV: Voiding Method Condom Catheter Active Medications - Current Medications Current Medications: Generic Name Dose Route Start Last Admin Trade Name Freq PRN Reason Stop Dose Admin Acetaminophen 650 mg 11/23/20 15:29 12/15/20 17:58 Acetaminophen 325 Mg Tab PO 650 mg Q4H PRN Administration Pain, Mild (1-3) Albuterol 2.5 mg 11/22/20 01:19 Albuterol 2.5 Mg/3 Ml Nebu IH Q4HRT PRN Shortness Of Breath Albuterol/Ipratropium 1 ampul 12/11/20 08:00 12/17/20 08:49 Ipratropium/Albuterol Sulfate 3 Ml Ampul.Neb IH 1 ampul TIDRT TERESA Administration Lipase/Protease/Amylase 1 each 11/22/20 09:07 Lipase 10,500/Protease 25,000/Amylase 43,750 (Units) Dr Cyr FEEDTUBE PRN PRN For Clogged Feeding Tube Aspirin 81 mg 11/23/20 10:00 12/16/20 09:37 Aspirin 81 Mg Tab Chew PO 81 mg QDAY TERESA Administration Atorvastatin Calcium 40 mg 11/22/20 22:00 12/16/20 21:50 Atorvastatin 40 Mg Tab PO 40 mg QHS TERESA Administration Budesonide 0.5 mg 11/24/20 14:55 12/17/20 08:48 Budesonide 0.5 Mg/2 Ml Nebu IH 0.5 mg Q12HRT TERESA Administration Carvedilol 12.5 mg 12/03/20 22:00 12/16/20 21:50 Carvedilol 12.5 Mg Tab PO 12.5 mg BID TERESA Administration Heparin Sodium (Porcine) 5,000 unit 11/22/20 06:00 12/17/20 05:00 Heparin 5,000 Unit/1 Ml Vial SUB-Q 5,000 unit Q8HR TERESA Administration Hydralazine HCl 10 mg 11/22/20 01:24 12/17/20 01:10 Hydralazine 20 Mg/1 Ml Inj IV 10 mg Q6H PRN Administration Blood Pressure Lactulose 20 gm 12/13/20 17:02 12/13/20 17:10 Lactulose 20 Gm/30 Ml Oral Liqd PO 20 gm QDAY PRN Administration Constipation Lansoprazole 30 mg 11/28/20 10:00 12/16/20 09:37 Lansoprazole 30 Mg Solutab FEEDTUBE 30 mg QDAY TERESA Administration Methylprednisolone Sodium Succinate 60 mg 12/08/20 12:00 12/17/20 05:00 Methylprednisolone Sod Succinate 125 Mg/2 Ml Inj IV 60 mg Q6HR TERESA Administration Nitroglycerin 0.4 mg 11/22/20 01:25 12/06/20 05:22 Nitroglycerin 0.4 Mg Tab Subl SL 0.4 mg Q5M PRN Administration Chest Pain Ondansetron HCl 4 mg 11/22/20 01:19 Ondansetron 4 Mg/2 Ml Inj IV Q8H PRN Nausea And Vomiting Oxycodone/Acetaminophen 1 tab 12/16/20 11:00 12/16/20 14:18 Oxycodone /Acetaminophen 5-325mg Tab PO 1 tab Q6H PRN Administration Pain, Moderate (4-6) Quetiapine Fumarate 25 mg 11/27/20 12:00 12/16/20 21:51 Quetiapine 25 Mg Tab PO 25 mg BID TERESA Administration Senna/Docusate Sodium 1 tab 11/22/20 10:00 12/16/20 21:50 Sennosides/Docusate Sodium 8.6/50 Mg Tab FEEDTUBE 1 tab BID TERESA Administration Simple Syrup 15 ml 11/22/20 09:07 Simple Syrup 15 Ml FEEDTUBE PRN PRN Hypoglycemia Simple Syrup 30 ml 11/22/20 09:07 Simple Syrup 15 Ml FEEDTUBE PRN PRN Hypoglycemia Sodium Bicarbonate 325 mg 11/22/20 09:07 Sodium Bicarbonate 325 Mg Tab FEEDTUBE PRN PRN For Clogged Feeding Tube Sodium Chloride 10 ml 11/22/20 10:00 12/16/20 21:51 Sodium Chloride 0.9% 10 Ml Flush Syringe IV 10 ml BID TERESA Administration Sodium Chloride 10 ml 11/22/20 01:19 12/16/20 05:39 Sodium Chloride 0.9% 10 Ml Flush Syringe IV 10 ml PRN PRN Administration LINE FLUSH Tamsulosin HCl 0.4 mg 11/22/20 10:00 12/16/20 09:37 Tamsulosin 0.4 Mg Cap PO 0.4 mg DAILY TERESA Administration Nutrition/Malnutrition Assess - Dietary Evaluation Nutrition/Malnutrition Findings: Nutrition Notes Start: 11/22/20 08:53 Freq: Status: Active Protocol: Document 12/16/20 15:59 CW (Rec: 12/16/20 16:05 CW [id number]) Nutrition Notes Initial or Follow up Reassessment Current Diagnosis COPD,Hypertension,Respiratory Failure Other Pertinent Diagnosis Encephalopathy, UTI, pulmonary HTN Current Diet Mech soft Labs/Tests no new labs Pertinent Medications Pierre oglesby Height 5 ft 3 in Weight 79 kg [place] Body Weight (kg) 56.36 BMI 30.8 Weight change and time frame weight change noted; likely related to fluid Weight Status Overweight Subjective/Other Information Son in room at time of visit and reports pt has not yet eaten neither yesterday nor today. Recommend appetite stimulant. Pt is as nutritional risk. Pt family ontinues to bring in meals that he prefers but pt continues to sleep. Percent of energy/protein needs met: Negligible Burn Absent Trauma Absent Current % PO Negligible Minimum of two criteria No physical signs of malnutrition #1 Nutrition Diagnosis Inadequate oral intake Diagnosis Progress(for reassessment Continues documentation) Is patient on ventilator? No Is Patient Ambulatory and/or Out of Bed No REE-(Tyler-St. Jeor-confined to bed) [phone] Calculation Used for Recommendations Tyler-St Jeor Additional Notes Pro needs 1-1.2g/k-87g/ day Fluid needs 1ml/kcal Nutrition Intervention Change Diet Order: Continue current diet Goal #1 PO intake to meet at least 75% energy and pro needs Anticipated Discharge Needs: mech soft, consistent CHO Follow-Up By: 12/18/20 Additional Comments F/U POC
[2020-12-17] MEDS: TAMSULOSIN 0.4 MG CAP PO SCH (09:31)
[2020-12-17] MEDS: ASPIRIN 81 MG TAB CHEW PO SCH (09:34)
[2020-12-17] MEDS: SENNOSIDES/DOCUSATE SODIUM 8.6/50 MG TAB FEEDTUBE SCH ×2 (09:35→21:55)
[2020-12-17] MEDS: carvediloL 12.5 MG TAB PO SCH ×2 (09:35→21:56)
[2020-12-17] MEDS: QUEtiapine 25 MG TAB PO SCH ×2 (09:35→21:55)
[2020-12-17] MEDS: LANSOPRAZOLE 30 MG SOLUTAB FEEDTUBE SCH (09:39)
[2020-12-17] MEDS: POTASSIUM CHLORIDE ER 20 MEQ TAB PO SCH ×2 (09:44→13:48)
--- NOTE | 2020-12-17 11:44 | Progress Note ---
Assessment and Plan 85 y/o danish male admitted with acute hypoxic respiratory failure. 12/17/20: Hold on lasix today. Continue steroids but start weaning likely tomorrow. Alkalmeia is secondary to lasix and steroids, likely more so fromt he lasix. Continue supportive care. Will continue to follow. 12/16/20: Lasix again today. Will order BMP. Reviewed CM note in regards to PEER to PEER need. I did the last one. I'm not sure what they are looking for as this is now the second round of the patient requiring high dose IV steroids and HFNC. If he goes home, he will decompensate and could end up back on mechanical ventilation or worse, . This was explained in the last Peer to Peer. Continue high dose steroids and wean as tolerated. Guarded prognosis. 12/15/20: Lasix 40 today. Continue high dose steroids. Wean FiO2 and Flow for sats >88%. Ok with sitting up in chair if patient will cooperate. PT/OT. Hopeful insurer will approve LTACH soon as patient really would benefit from this. 12/12/20: Lasix again today. Ordered labs for today. Continue to wean FiO2 for sats >88%. Follow up with CM. Prognosis still remains guarded but more promising now that oxygen requirement is coming down. 12/11/20: Lasix again today. Labs stable on yesterday. Continues to have desats at night. Hesitant to order positive pressure at night as this could make the patient more agitated and worsen oxygenation but may consider if the sa me thing happens again tonight. Follow up with CM on LTACH as he definitely needs it. Will continue to follow. Guarded prognosis. 12/10/20: BNP elevated, lasix again today. Ordered labs for this am, will review once back. May need to increase night time seroquel as night nurse documented patient taking off cannula constantly but easy redirection. Appeal done by CM. Continue High dose steroids. Guarded prognosis. 12/09/20: Continue High Dose IV steroids. Follow up BNP. Today will give lasix 40mg IV x1. Please ask CM to appeal LTACH denial as patient will need it. After speaking with RT, patient becomes very agitated and frustrated secondary to language barrier and will remove supplemental O2 requiring him to be put on higher numbers to recover. Suggest using language line more often or calling daughter who is in the medical profession and speaks very good [place]. Will continue to follow. 12/08/20: with change in oxygen requirement, will place back on IV steroids. Will order labs including BNP today and give lasix 20mg IV x1. Initial LTACH request was denied, suggest having CM appeal it now that patient is back on HFNC. Will continue to follow. 12/06/20: Steroid taper as follows: 60 daily for 5 days, 40 daily for 5 days, 20 daily for 5 days, 10 daily for 5 days. Resume whatever home regimen patient was on at home. Wean Oxygen for sats >88%, likely patient will be fine on 2-3 liters, does not need 4. Will sign off. Call if questions. 12/05/20: Change to oral steroids starting tomorrow with prolonged taper. Likely dischargeable over the weekend. 12/04/20: LTACH denied. Continue to wean. Continue IV steroids. 12/03/20: Follow up with CM in regards to LTACH. Continue IV steroids. Wean FiO2 as tolerated. PT/OT if not already evaluated. Patient stable enough to transfer to floor. 12/02/20: CM still waiting to hear back from LTACH in regards to auth. Continue to wean FiO2 as tolerated for sats >88%. Continue IV steroids. 12/01/20: Wean HFNC for sats >88%. Spoke with CM about checking on LTACH but patient may be able to be weaned further now while in house. Will speak with RT about this. If placed on salter, may need to consider transfer to medical/surgical floor with remote tele. 11/28/20: Continue to wean HFNC. Agree with holding Precedex, can increase seroquel if needed to help with mood. Hopeful that over the weekend will be down to nasal cannula and can transfer to the floor. CM working on LTACH evaluation. Patient is stable for transfer, if and when accepted. 11/27/20: Will transfer to step down today. Agree with bedside swallow eval now that patient is more awake. Will try bID seroquel to help with mood and agitation. Hopeful Cr has stablized. Continue steroids at 40q8. Consider LTACH evaluation 11/26/20: 11/25/20: Continue bipap for right now. Added precedex and stopped ativan as this may be worsening agitation. Ok with haldol use. Continue daily diuretics to keep patient net negative. Continue ICU monitoring for now. Renal function is better. Guarded prognosis. 11/23/20: Wean sedation to off. If patient can tolerate being off sedation, will attempt PSV trial, otherwise, will likely have to just stop sedation and extubate, will have bipap ready for as needed purposes. Needs chemistry to assess renal function. Out put was good. 1. Repeat ABG later this afternoon and wean FIO2 according (>88%) 2. Stop sedation, need to assess mental state 3. Follow up renal function and urine output. 4. Guarded prognosis, this is likely acute on chronic respiratory failure. cct 31 minutes. Subjective Date of service: 12/17/20 Principal diagnosis: Acute respiratory failure Interval history: Transferred to [facility] for unresponsiveness. However patient is awake and alert this am. Blood gas was done and stable. Still on HFNC. Per CM, insurance denied LTACH again. Objective Vital Signs - 12hr 12/17/20 12/17/20 12/17/20 00:00 00:20 01:10 Temperature 98.3 F Pulse Rate 84 Pulse Rate [ Anterior Bilateral Throughout] Pulse Rate [ From Monitor] Respiratory Rate Respiratory Rate [Anterior Bilateral Throughout] Blood Pressure 178/89 O2 Sat by Pulse 95 Oximetry 12/17/20 12/17/20 12/17/20 03:40 04:00 04:36 Temperature 98.8 F Pulse Rate 91 H 86 Pulse Rate [ Anterior Bilateral Throughout] Pulse Rate [ 91 H From Monitor] Respiratory 23 24 Rate Respiratory Rate [Anterior Bilateral Throughout] Blood Pressure 148/118 O2 Sat by Pulse 99 98 Oximetry 12/17/20 12/17/20 12/17/20 05:00 05:28 06:00 Temperature Pulse Rate 87 89 Pulse Rate [ Anterior Bilateral Throughout] Pulse Rate [ From Monitor] Respiratory 19 17 Rate Respiratory Rate [Anterior Bilateral Throughout] Blood Pressure 156/67 151/58 O2 Sat by Pulse 99 95 98 Oximetry 12/17/20 12/17/20 12/17/20 07:00 08:00 08:52 Temperature Pulse Rate 87 87 Pulse Rate [ 82 Anterior Bilateral Throughout] Pulse Rate [ From Monitor] Respiratory 15 12 Rate Respiratory 22 Rate [Anterior Bilateral Throughout] Blood Pressure 151/58 176/74 O2 Sat by Pulse 100 100 100 Oximetry Constitutional: no acute distress, alert, agitated, other Eyes: non-icteric ENT: oropharynx moist, other (Crowded oropharynx) Neck: supple, other (large in circumference) Effort: normal Ascultation: Bilateral: clear, diminished breath sounds, wheezes Percussion: Bilateral: not dull Cardiovascular: other (tachy, no mrg) Gastrointestinal: normoactive bowel sounds, soft, non-tender, non-distended Extremities: no cyanosis, no edema, pink and warm Neurologic: normal mental status, non-focal exam, pupils equal and round Psychiatric: mood appropriate, affect normal CBC and BMP: 12/17/20 04:28 12/17/20 04:28 ABG, PT/INR, D-dimer: ABG ABG pH 7.517 (7.320-7.450) H 12/17/20 06:13 POC ABG pCO2 54.0 mmHg (32.0-48.0) H 12/17/20 06:13 POC ABG pO2 33.3 mmHg (83-108) L 12/17/20 06:13 POC ABG HCO3 42.8 12/17/20 06:13 ABG O2 Saturation 66.7 (0-100) 12/17/20 06:13 PT/INR, D-dimer PT 13.5 Sec. (12.2-14.9) 11/21/20 20:50 INR 0.98 (0.87-1.13) 11/21/20 20:50 Abnormal lab findings: Abnormal Labs 11/21/20 11/21/20 11/22/20 20:50 20:50 00:11 WBC RBC 3.48 L Hgb 11.1 L Hct 34.3 L MCV 99 H Lymph % (Auto) 6.8 L Cook % (Auto) Lymph # (Auto) 0.6 L Cook # (Auto) Seg Neutrophils % 85.5 H Seg Neuts % (Manual) Nucleated RBC % Seg Neutrophils # Seg Neutrophils # Man Lymphocytes # (Manual) ABG pH POC ABG pCO2 POC ABG pO2 ABG Hemoglobin ABG Oxyhemoglobin ABG Sodium ABG Potassium ABG Chloride ABG Glucose Carboxyhemoglobin Sodium 130 L Potassium 7.3 H* Chloride 91.1 L Carbon Dioxide BUN 40 H Creatinine 2.1 H Glucose 195 H POC Glucose Lactic Acid Calcium Phosphorus AST 91 H ALT 65 H CK-MB (CK-2) Rel Index 4.1 H Troponin T 0.045 H NT-Pro-B Natriuret Pep 6998 H Serum Total Protein Total Protein Albumin 3.7 L Cmbmp-9-Vdliaocue Gamma Globulins PEP Interpretation HDL Cholesterol 60 H Arterial Blood Glucose Arterial Blood Ionized Calcium Urine WBC (Auto) Urine Creatinine 158.2 H Hepatitis C Antibody 11/22/20 11/22/20 11/22/20 00:23 00:40 01:37 WBC 14.1 H RBC 3.53 L Hgb 11.0 L Hct 34.1 L MCV 97 H Lymph % (Auto) 12.3 L Cook % (Auto) 14.2 H Lymph # (Auto) Cook # (Auto) 2.0 H Seg Neutrophils % 72.3 H Seg Neuts % (Manual) Nucleated RBC % Seg Neutrophils # 10.2 H Seg Neutrophils # Man Lymphocytes # (Manual) ABG pH POC ABG pCO2 POC ABG pO2 ABG Hemoglobin ABG Oxyhemoglobin ABG Sodium ABG Potassium ABG Chloride ABG Glucose Carboxyhemoglobin Sodium Potassium 5.1 H D Chloride Carbon Dioxide BUN Creatinine Glucose POC Glucose Lactic Acid 2.10 H* Calcium Phosphorus AST ALT CK-MB (CK-2) Rel Index Troponin T NT-Pro-B Natriuret Pep Serum Total Protein Total Protein Albumin Rpmic-1-Jejqodgfm Gamma Globulins PEP Interpretation HDL Cholesterol Arterial Blood Glucose Arterial Blood Ionized Calcium Urine WBC (Auto) Urine Creatinine Hepatitis C Antibody 11/22/20 11/22/20 11/22/20 01:37 03:20 05:00 WBC RBC Hgb Hct MCV Lymph % (Auto) Cook % (Auto) Lymph # (Auto) Cook # (Auto) Seg Neutrophils % Seg Neuts % (Manual) Nucleated RBC % Seg Neutrophils # Seg Neutrophils # Man Lymphocytes # (Manual) ABG pH POC ABG pCO2 58.4 H POC ABG pO2 ABG Hemoglobin 11.1 L ABG Oxyhemoglobin ABG Sodium 135.1 L ABG Potassium 5.0 H ABG Chloride ABG Glucose Carboxyhemoglobin Sodium Potassium 5.1 H Chloride Carbon Dioxide 31 H BUN 40 H Creatinine 2.0 H Glucose 49 L POC Glucose Lactic Acid Calcium Phosphorus AST ALT CK-MB (CK-2) Rel Index Troponin T NT-Pro-B Natriuret Pep Serum Total Protein Total Protein Albumin Vaoeb-7-Pcyzdqxmn Gamma Globulins PEP Interpretation HDL Cholesterol Arterial Blood Glucose Arterial Blood Ionized Calcium Urine WBC (Auto) 33.0 H Urine Creatinine Hepatitis C Antibody 11/22/20 11/22/20 11/22/20 05:00 05:00 05:00 WBC RBC Hgb Hct MCV Lymph % (Auto) Cook % (Auto) Lymph # (Auto) Cook # (Auto) Seg Neutrophils % Seg Neuts % (Manual) Nucleated RBC % Seg Neutrophils # Seg Neutrophils # Man Lymphocytes # (Manual) ABG pH POC ABG pCO2 POC ABG pO2 ABG Hemoglobin ABG Oxyhemoglobin ABG Sodium ABG Potassium ABG Chloride ABG Glucose Carboxyhemoglobin Sodium 136 L Potassium Chloride 97.8 L Carbon Dioxide BUN 41 H Creatinine 1.8 H 1.8 H Glucose POC Glucose Lactic Acid Calcium 8.2 L Phosphorus AST ALT CK-MB (CK-2) Rel Index Troponin T 0.065 H D NT-Pro-B Natriuret Pep Serum Total Protein Total Protein Albumin Wvoar-8-Mhxbuylxv Gamma Globulins PEP Interpretation HDL Cholesterol Arterial Blood Glucose Arterial Blood Ionized Calcium Urine WBC (Auto) Urine Creatinine Hepatitis C Antibody 11/22/20 11/22/20 11/22/20 10:20 10:20 15:00 WBC RBC 3.16 L Hgb 10.2 L Hct 29.9 L MCV 95 H Lymph % (Auto) Cook % (Auto) Lymph # (Auto) Cook # (Auto) Seg Neutrophils % Seg Neuts % (Manual) Nucleated RBC % Seg Neutrophils # Seg Neutrophils # Man Lymphocytes # (Manual) ABG pH 7.501 H POC ABG pCO2 POC ABG pO2 ABG Hemoglobin 10.5 L ABG Oxyhemoglobin ABG Sodium 134.9 L ABG Potassium ABG Chloride ABG Glucose 115 H Carboxyhemoglobin 0.4 L Sodium Potassium Chloride Carbon Dioxide BUN Creatinine Glucose POC Glucose Lactic Acid Calcium Phosphorus AST ALT CK-MB (CK-2) Rel Index Troponin T 0.078 H NT-Pro-B Natriuret Pep Serum Total Protein Total Protein Albumin Hqyfp-7-Vfxxyywij Gamma Globulins PEP Interpretation HDL Cholesterol Arterial Blood Glucose 115 H Arterial Blood Ionized Calcium 4.3 L Urine WBC (Auto) Urine Creatinine Hepatitis C Antibody 11/22/20 11/22/20 11/22/20 16:00 17:45 23:21 WBC RBC Hgb Hct MCV Lymph % (Auto) Cook % (Auto) Lymph # (Auto) Cook # (Auto) Seg Neutrophils % Seg Neuts % (Manual) Nucleated RBC % Seg Neutrophils # Seg Neutrophils # Man Lymphocytes # (Manual) ABG pH POC ABG pCO2 POC ABG pO2 ABG Hemoglobin ABG Oxyhemoglobin ABG Sodium ABG Potassium ABG Chloride ABG Glucose Carboxyhemoglobin Sodium Potassium Chloride Carbon Dioxide BUN Creatinine Glucose POC Glucose 107 H 115 H Lactic Acid Calcium Phosphorus AST ALT CK-MB (CK-2) Rel Index Troponin T NT-Pro-B Natriuret Pep Serum Total Protein Total Protein Albumin Jetsk-5-Xdsvixbkd Gamma Globulins PEP Interpretation HDL Cholesterol Arterial Blood Glucose Arterial Blood Ionized Calcium Urine WBC (Auto) Urine Creatinine Hepatitis C Antibody Reactive A 11/23/20 11/23/20 11/23/20 03:03 05:33 10:00 WBC RBC 3.33 L Hgb 10.6 L Hct 32.2 L MCV 97 H Lymph % (Auto) Cook % (Auto) 15.0 H Lymph # (Auto) Cook # (Auto) 1.5 H Seg Neutrophils % Seg Neuts % (Manual) Nucleated RBC % Seg Neutrophils # Seg Neutrophils # Man Lymphocytes # (Manual) ABG pH POC ABG pCO2 POC ABG pO2 115.8 H ABG Hemoglobin 10.1 L ABG Oxyhemoglobin ABG Sodium 135.8 L ABG Potassium ABG Chloride ABG Glucose 98 H Carboxyhemoglobin 0.4 L Sodium Potassium Chloride Carbon Dioxide BUN Creatinine Glucose POC Glucose 106 H Lactic Acid Calcium Phosphorus AST ALT CK-MB (CK-2) Rel Index Troponin T NT-Pro-B Natriuret Pep Serum Total Protein Total Protein Albumin Rhynw-1-Jgiaxwzcv Gamma Globulins PEP Interpretation HDL Cholesterol Arterial Blood Glucose 98 H Arterial Blood Ionized Calcium 4.4 L Urine WBC (Auto) Urine Creatinine Hepatitis C Antibody 11/23/20 11/23/20 11/23/20 10:00 10:00 12:12 WBC RBC Hgb Hct MCV Lymph % (Auto) Cook % (Auto) Lymph # (Auto) Cook # (Auto) Seg Neutrophils % Seg Neuts % (Manual) Nucleated RBC % Seg Neutrophils # Seg Neutrophils # Man Lymphocytes # (Manual) ABG pH POC ABG pCO2 POC ABG pO2 ABG Hemoglobin ABG Oxyhemoglobin ABG Sodium ABG Potassium ABG Chloride ABG Glucose Carboxyhemoglobin Sodium Potassium Chloride Carbon Dioxide BUN 22 H Creatinine Glucose 101 H POC Glucose 119 H Lactic Acid Calcium 7.9 L Phosphorus AST ALT CK-MB (CK-2) Rel Index Troponin T NT-Pro-B Natriuret Pep Serum Total Protein 5.3 L Total Protein 5.5 L Albumin 2.8 L 2.8 L Liuew-6-Xxtmkjvde 0.4 H Gamma Globulins 0.7 L PEP Interpretation see below H HDL Cholesterol Arterial Blood Glucose Arterial Blood Ionized Calcium Urine WBC (Auto) Urine Creatinine Hepatitis C Antibody 11/23/20 11/23/20 11/24/20 18:21 23:28 01:48 WBC RBC Hgb Hct MCV Lymph % (Auto) Cook % (Auto) Lymph # (Auto) Cook # (Auto) Seg Neutrophils % Seg Neuts % (Manual) Nucleated RBC % Seg Neutrophils # Seg Neutrophils # Man Lymphocytes # (Manual) ABG pH 7.281 L POC ABG pCO2 58.4 H POC ABG pO2 ABG Hemoglobin 11.8 L ABG Oxyhemoglobin ABG Sodium ABG Potassium ABG Chloride ABG Glucose 101 H Carboxyhemoglobin Sodium Potassium Chloride Carbon Dioxide BUN Creatinine Glucose POC Glucose 106 H 108 H Lactic Acid Calcium Phosphorus AST ALT CK-MB (CK-2) Rel Index Troponin T NT-Pro-B Natriuret Pep Serum Total Protein Total Protein Albumin Bqizl-9-Blrrfmtur Gamma Globulins PEP Interpretation HDL Cholesterol Arterial Blood Glucose 101 H Arterial Blood Ionized Calcium Urine WBC (Auto) Urine Creatinine Hepatitis C Antibody 11/24/20 11/24/20 11/25/20 09:58 09:58 00:29 WBC RBC Hgb Hct MCV Lymph % (Auto) Cook % (Auto) Lymph # (Auto) Cook # (Auto) Seg Neutrophils % Seg Neuts % (Manual) Nucleated RBC % Seg Neutrophils # Seg Neutrophils # Man Lymphocytes # (Manual) ABG pH POC ABG pCO2 POC ABG pO2 ABG Hemoglobin ABG Oxyhemoglobin ABG Sodium ABG Potassium ABG Chloride ABG Glucose Carboxyhemoglobin Sodium 148 H Potassium Chloride Carbon Dioxide 34 H D BUN Creatinine Glucose POC Glucose 111 H Lactic Acid 0.60 L Calcium Phosphorus AST ALT CK-MB (CK-2) Rel Index Troponin T NT-Pro-B Natriuret Pep Serum Total Protein Total Protein Albumin Pojab-4-Xlyswgibb Gamma Globulins PEP Interpretation HDL Cholesterol Arterial Blood Glucose Arterial Blood Ionized Calcium Urine WBC (Auto) Urine Creatinine Hepatitis C Antibody 11/25/20 11/25/2011/25/21 05:48 08:18 08:18 WBC 13.2 H RBC 3.56 L Hgb 10.9 L Hct 34.0 L MCV 96 H Lymph % (Auto) Cook % (Auto) Lymph # (Auto) Cook # (Auto) Seg Neutrophils % Seg Neuts % (Manual) 98.0 H Nucleated RBC % 1.0 H Seg Neutrophils # Seg Neutrophils # Man 12.9 H Lymphocytes # (Manual) 0.0 L ABG pH POC ABG pCO2 POC ABG pO2 ABG Hemoglobin ABG Oxyhemoglobin ABG Sodium ABG Potassium ABG Chloride ABG Glucose Carboxyhemoglobin Sodium 147 H Potassium Chloride Carbon Dioxide 32 H BUN 26 H Creatinine Glucose 151 H POC Glucose 148 H Lactic Acid Calcium Phosphorus AST ALT CK-MB (CK-2) Rel Index Troponin T NT-Pro-B Natriuret Pep Serum Total Protein Total Protein 6.0 L Albumin 3.7 L Klbiu-0-Wqaldpnnm Gamma Globulins PEP Interpretation HDL Cholesterol Arterial Blood Glucose Arterial Blood Ionized Calcium Urine WBC (Auto) Urine Creatinine Hepatitis C Antibody 11/25/20 11/25/20 11/25/20 11:34 18:03 23:15 WBC RBC Hgb Hct MCV Lymph % (Auto) Cook % (Auto) Lymph # (Auto) Cook # (Auto) Seg Neutrophils % Seg Neuts % (Manual) Nucleated RBC % Seg Neutrophils # Seg Neutrophils # Man Lymphocytes # (Manual) ABG pH POC ABG pCO2 POC ABG pO2 ABG Hemoglobin ABG Oxyhemoglobin ABG Sodium ABG Potassium ABG Chloride ABG Glucose Carboxyhemoglobin Sodium Potassium Chloride Carbon Dioxide BUN Creatinine Glucose POC Glucose 144 H 147 H 158 H Lactic Acid Calcium Phosphorus AST ALT CK-MB (CK-2) Rel Index Troponin T NT-Pro-B Natriuret Pep Serum Total Protein Total Protein Albumin Ktarx-6-Onwizmryl Gamma Globulins PEP Interpretation HDL Cholesterol Arterial Blood Glucose Arterial Blood Ionized Calcium Urine WBC (Auto) Urine Creatinine Hepatitis C Antibody 11/26/20 11/26/20 11/26/20 05:07 06:22 06:22 WBC 12.3 H RBC 3.52 L Hgb 11.1 L Hct 33.6 L MCV 95 H Lymph % (Auto) Cook % (Auto) Lymph # (Auto) Cook # (Auto) Seg Neutrophils % Seg Neuts % (Manual) Nucleated RBC % Seg Neutrophils # Seg Neutrophils # Man Lymphocytes # (Manual) ABG pH POC ABG pCO2 POC ABG pO2 ABG Hemoglobin ABG Oxyhemoglobin ABG Sodium ABG Potassium ABG Chloride ABG Glucose Carboxyhemoglobin Sodium Potassium 3.3 L Chloride 95.8 L Carbon Dioxide 33 H BUN 35 H Creatinine 1.4 H Glucose 185 H POC Glucose 184 H Lactic Acid Calcium Phosphorus AST ALT CK-MB (CK-2) Rel Index Troponin T 0.036 H D NT-Pro-B Natriuret Pep Serum Total Protein Total Protein 6.2 L Albumin 3.1 L Hsind-3-Rkrezgqfo Gamma Globulins PEP Interpretation HDL Cholesterol Arterial Blood Glucose Arterial Blood Ionized Calcium Urine WBC (Auto) Urine Creatinine Hepatitis C Antibody 11/26/20 11/26/20 11/26/20 12:52 17:30 23:14 WBC RBC Hgb Hct MCV Lymph % (Auto) Cook % (Auto) Lymph # (Auto) Cook # (Auto) Seg Neutrophils % Seg Neuts % (Manual) Nucleated RBC % Seg Neutrophils # Seg Neutrophils # Man Lymphocytes # (Manual) ABG pH POC ABG pCO2 POC ABG pO2 ABG Hemoglobin ABG Oxyhemoglobin ABG Sodium ABG Potassium ABG Chloride ABG Glucose Carboxyhemoglobin Sodium Potassium Chloride Carbon Dioxide BUN Creatinine Glucose POC Glucose 170 H 133 H 149 H Lactic Acid Calcium Phosphorus AST ALT CK-MB (CK-2) Rel Index Troponin T NT-Pro-B Natriuret Pep Serum Total Protein Total Protein Albumin Qwofz-6-Ueoxoxpto Gamma Globulins PEP Interpretation HDL Cholesterol Arterial Blood Glucose Arterial Blood Ionized Calcium Urine WBC (Auto) Urine Creatinine Hepatitis C Antibody 11/27/20 11/27/20 11/27/20 05:35 08:03 12:02 WBC RBC Hgb Hct MCV Lymph % (Auto) Cook % (Auto) Lymph # (Auto) Cook # (Auto) Seg Neutrophils % Seg Neuts % (Manual) Nucleated RBC % Seg Neutrophils # Seg Neutrophils # Man Lymphocytes # (Manual) ABG pH POC ABG pCO2 POC ABG pO2 ABG Hemoglobin ABG Oxyhemoglobin ABG Sodium ABG Potassium ABG Chloride ABG Glucose Carboxyhemoglobin Sodium Potassium Chloride 97.0 L Carbon Dioxide 31 H BUN 41 H Creatinine 1.4 H Glucose 145 H POC Glucose 135 H 139 H Lactic Acid Calcium Phosphorus 2.20 L AST ALT CK-MB (CK-2) Rel Index Troponin T NT-Pro-B Natriuret Pep Serum Total Protein Total Protein Albumin Yrdmu-9-Ophewxnit Gamma Globulins PEP Interpretation HDL Cholesterol Arterial Blood Glucose Arterial Blood Ionized Calcium Urine WBC (Auto) Urine Creatinine Hepatitis C Antibody 11/27/20 11/28/20 11/28/20 18:41 05:26 06:08 WBC RBC Hgb Hct MCV Lymph % (Auto) Cook % (Auto) Lymph # (Auto) Cook # (Auto) Seg Neutrophils % Seg Neuts % (Manual) Nucleated RBC % Seg Neutrophils # Seg Neutrophils # Man Lymphocytes # (Manual) ABG pH POC ABG pCO2 POC ABG pO2 ABG Hemoglobin ABG Oxyhemoglobin ABG Sodium ABG Potassium ABG Chloride ABG Glucose Carboxyhemoglobin Sodium Potassium Chloride Carbon Dioxide BUN 45 H Creatinine 1.4 H Glucose 135 H POC Glucose 148 H 143 H Lactic Acid Calcium Phosphorus AST ALT CK-MB (CK-2) Rel Index Troponin T NT-Pro-B Natriuret Pep Serum Total Protein Total Protein Albumin Yowjx-3-Ooiyhhvrh Gamma Globulins PEP Interpretation HDL Cholesterol Arterial Blood Glucose Arterial Blood Ionized Calcium Urine WBC (Auto) Urine Creatinine Hepatitis C Antibody 11/28/20 11/28/20 11/28/20 11:46 17:31 21:17 WBC RBC Hgb Hct MCV Lymph % (Auto) Cook % (Auto) Lymph # (Auto) Cook # (Auto) Seg Neutrophils % Seg Neuts % (Manual) Nucleated RBC % Seg Neutrophils # Seg Neutrophils # Man Lymphocytes # (Manual) ABG pH POC ABG pCO2 POC ABG pO2 ABG Hemoglobin ABG Oxyhemoglobin ABG Sodium ABG Potassium ABG Chloride ABG Glucose Carboxyhemoglobin Sodium Potassium Chloride Carbon Dioxide BUN Creatinine Glucose POC Glucose 132 H 156 H 122 H Lactic Acid Calcium Phosphorus AST ALT CK-MB (CK-2) Rel Index Troponin T NT-Pro-B Natriuret Pep Serum Total Protein Total Protein Albumin Stvib-5-Sxakpsdjx Gamma Globulins PEP Interpretation HDL Cholesterol Arterial Blood Glucose Arterial Blood Ionized Calcium Urine WBC (Auto) Urine Creatinine Hepatitis C Antibody 11/29/20 11/29/20 11/29/20 00:06 04:43 05:15 WBC RBC Hgb Hct MCV Lymph % (Auto) Cook % (Auto) Lymph # (Auto) Cook # (Auto) Seg Neutrophils % Seg Neuts % (Manual) Nucleated RBC % Seg Neutrophils # Seg Neutrophils # Man Lymphocytes # (Manual) ABG pH POC ABG pCO2 POC ABG pO2 ABG Hemoglobin ABG Oxyhemoglobin ABG Sodium ABG Potassium ABG Chloride ABG Glucose Carboxyhemoglobin Sodium Potassium Chloride 97.7 L Carbon Dioxide BUN 56 H Creatinine 1.6 H Glucose 132 H POC Glucose 114 H 125 H Lactic Acid Calcium Phosphorus AST ALT CK-MB (CK-2) Rel Index Troponin T NT-Pro-B Natriuret Pep Serum Total Protein Total Protein Albumin Bigqi-7-Rcrzagtnn Gamma Globulins PEP Interpretation HDL Cholesterol Arterial Blood Glucose Arterial Blood Ionized Calcium Urine WBC (Auto) Urine Creatinine Hepatitis C Antibody 11/29/20 11/29/20 11/30/20 12:09 18:12 04:47 WBC RBC Hgb Hct MCV Lymph % (Auto) Cook % (Auto) Lymph # (Auto) Cook # (Auto) Seg Neutrophils % Seg Neuts % (Manual) Nucleated RBC % Seg Neutrophils # Seg Neutrophils # Man Lymphocytes # (Manual) ABG pH POC ABG pCO2 POC ABG pO2 ABG Hemoglobin ABG Oxyhemoglobin ABG Sodium ABG Potassium ABG Chloride ABG Glucose Carboxyhemoglobin Sodium Potassium Chloride Carbon Dioxide 31 H BUN 59 H Creatinine 1.6 H Glucose 122 H POC Glucose 142 H 132 H Lactic Acid Calcium Phosphorus AST ALT CK-MB (CK-2) Rel Index Troponin T NT-Pro-B Natriuret Pep Serum Total Protein Total Protein Albumin Jgiut-1-Yrqoyjpyp Gamma Globulins PEP Interpretation HDL Cholesterol Arterial Blood Glucose Arterial Blood Ionized Calcium Urine WBC (Auto) Urine Creatinine Hepatitis C Antibody 11/30/20 11/30/20 11/30/20 05:45 11:47 18:16 WBC RBC Hgb Hct MCV Lymph % (Auto) Cook % (Auto) Lymph # (Auto) Cook # (Auto) Seg Neutrophils % Seg Neuts % (Manual) Nucleated RBC % Seg Neutrophils # Seg Neutrophils # Man Lymphocytes # (Manual) ABG pH POC ABG pCO2 POC ABG pO2 ABG Hemoglobin ABG Oxyhemoglobin ABG Sodium ABG Potassium ABG Chloride ABG Glucose Carboxyhemoglobin Sodium Potassium Chloride Carbon Dioxide BUN Creatinine Glucose POC Glucose 118 H 123 H 126 H Lactic Acid Calcium Phosphorus AST ALT CK-MB (CK-2) Rel Index Troponin T NT-Pro-B Natriuret Pep Serum Total Protein Total Protein Albumin Pqyyc-3-Dmifgizhj Gamma Globulins PEP Interpretation HDL Cholesterol Arterial Blood Glucose Arterial Blood Ionized Calcium Urine WBC (Auto) Urine Creatinine Hepatitis C Antibody 12/01/20 12/01/20 12/01/20 00:11 04:57 05:41 WBC RBC Hgb Hct MCV Lymph % (Auto) Cook % (Auto) Lymph # (Auto) Cook # (Auto) Seg Neutrophils % Seg Neuts % (Manual) Nucleated RBC % Seg Neutrophils # Seg Neutrophils # Man Lymphocytes # (Manual) ABG pH POC ABG pCO2 POC ABG pO2 ABG Hemoglobin ABG Oxyhemoglobin ABG Sodium ABG Potassium ABG Chloride ABG Glucose Carboxyhemoglobin Sodium Potassium Chloride Carbon Dioxide BUN 52 H Creatinine 1.4 H Glucose 121 H POC Glucose 117 H 120 H Lactic Acid Calcium Phosphorus AST ALT CK-MB (CK-2) Rel Index Troponin T NT-Pro-B Natriuret Pep Serum Total Protein Total Protein Albumin [id number] Gamma Globulins PEP Interpretation HDL Cholesterol Arterial Blood Glucose Arterial Blood Ionized Calcium Urine WBC (Auto) Urine Creatinine Hepatitis C Antibody 12/01/20 12/02/20 12/02/20 23:35 06:02 08:09 WBC RBC Hgb Hct MCV Lymph % (Auto) Cook % (Auto) Lymph # (Auto) Cook # (Auto) Seg Neutrophils % Seg Neuts % (Manual) Nucleated RBC % Seg Neutrophils # Seg Neutrophils # Man Lymphocytes # (Manual) ABG pH POC ABG pCO2 POC ABG pO2 ABG Hemoglobin ABG Oxyhemoglobin ABG Sodium ABG Potassium ABG Chloride ABG Glucose Carboxyhemoglobin Sodium Potassium Chloride Carbon Dioxide BUN Creatinine Glucose POC Glucose 117 H 108 H 117 H Lactic Acid Calcium Phosphorus AST ALT CK-MB (CK-2) Rel Index Troponin T NT-Pro-B Natriuret Pep Serum Total Protein Total Protein Albumin Mgnuk-1-Zteuyzrwz Gamma Globulins PEP Interpretation HDL Cholesterol Arterial Blood Glucose Arterial Blood Ionized Calcium Urine WBC (Auto) Urine Creatinine Hepatitis C Antibody 12/02/20 12/02/20 12/02/20 09:40 11:33 17:34 WBC RBC Hgb Hct MCV Lymph % (Auto) Cook % (Auto) Lymph # (Auto) Cook # (Auto) Seg Neutrophils % Seg Neuts % (Manual) Nucleated RBC % Seg Neutrophils # Seg Neutrophils # Man Lymphocytes # (Manual) ABG pH POC ABG pCO2 POC ABG pO2 ABG Hemoglobin ABG Oxyhemoglobin ABG Sodium ABG Potassium ABG Chloride ABG Glucose Carboxyhemoglobin Sodium Potassium Chloride 97.6 L Carbon Dioxide 35 H BUN 45 H Creatinine Glucose POC Glucose 109 H 124 H Lactic Acid Calcium Phosphorus AST ALT CK-MB (CK-2) Rel Index Troponin T NT-Pro-B Natriuret Pep Serum Total Protein Total Protein Albumin Bfjgn-3-Xhkbxmurm Gamma Globulins PEP Interpretation HDL Cholesterol Arterial Blood Glucose Arterial Blood Ionized Calcium Urine WBC (Auto) Urine Creatinine Hepatitis C Antibody 12/03/20 12/03/20 12/03/20 05:40 07:16 16:46 WBC RBC Hgb Hct MCV Lymph % (Auto) Cook % (Auto) Lymph # (Auto) Cook # (Auto) Seg Neutrophils % Seg Neuts % (Manual) Nucleated RBC % Seg Neutrophils # Seg Neutrophils # Man Lymphocytes # (Manual) ABG pH POC ABG pCO2 POC ABG pO2 ABG Hemoglobin ABG Oxyhemoglobin ABG Sodium ABG Potassium ABG Chloride ABG Glucose Carboxyhemoglobin Sodium Potassium Chloride Carbon Dioxide BUN 44 H Creatinine Glucose 117 H POC Glucose 115 H 106 H Lactic Acid Calcium Phosphorus AST ALT CK-MB (CK-2) Rel Index Troponin T NT-Pro-B Natriuret Pep Serum Total Protein Total Protein Albumin Yoxly-4-Bixndkala Gamma Globulins PEP Interpretation HDL Cholesterol Arterial Blood Glucose Arterial Blood Ionized Calcium Urine WBC (Auto) Urine Creatinine Hepatitis C Antibody 12/03/20 12/04/20 12/04/20 21:55 07:53 11:43 WBC RBC Hgb Hct MCV Lymph % (Auto) Cook % (Auto) Lymph # (Auto) Cook # (Auto) Seg Neutrophils % Seg Neuts % (Manual) Nucleated RBC % Seg Neutrophils # Seg Neutrophils # Man Lymphocytes # (Manual) ABG pH POC ABG pCO2 POC ABG pO2 ABG Hemoglobin ABG Oxyhemoglobin ABG Sodium ABG Potassium ABG Chloride ABG Glucose Carboxyhemoglobin Sodium Potassium Chloride Carbon Dioxide BUN Creatinine Glucose POC Glucose 113 H 110 H 110 H Lactic Acid Calcium Phosphorus AST ALT CK-MB (CK-2) Rel Index Troponin T NT-Pro-B Natriuret Pep Serum Total Protein Total Protein Albumin Pgcnb-6-Dciqtybdj Gamma Globulins PEP Interpretation HDL Cholesterol Arterial Blood Glucose Arterial Blood Ionized Calcium Urine WBC (Auto) Urine Creatinine Hepatitis C Antibody 12/04/20 12/08/20 12/09/20 17:21 09:43 08:43 WBC RBC Hgb Hct MCV Lymph % (Auto) Cook % (Auto) Lymph # (Auto) Cook # (Auto) Seg Neutrophils % Seg Neuts % (Manual) Nucleated RBC % Seg Neutrophils # Seg Neutrophils # Man Lymphocytes # (Manual) ABG pH POC ABG pCO2 POC ABG pO2 ABG Hemoglobin ABG Oxyhemoglobin ABG Sodium ABG Potassium ABG Chloride ABG Glucose Carboxyhemoglobin Sodium Potassium Chloride 96.2 L Carbon Dioxide 39 H BUN 34 H Creatinine Glucose POC Glucose 135 H Lactic Acid Calcium Phosphorus AST ALT CK-MB (CK-2) Rel Index Troponin T NT-Pro-B Natriuret Pep 4253 H Serum Total Protein Total Protein Albumin Ouzqn-8-Yghxfhhcr Gamma Globulins PEP Interpretation HDL Cholesterol Arterial Blood Glucose Arterial Blood Ionized Calcium Urine WBC (Auto) Urine Creatinine Hepatitis C Antibody 12/10/20 12/12/20 12/15/20 14:53 12:05 10:20 WBC RBC Hgb Hct MCV Lymph % (Auto) Cook % (Auto) Lymph # (Auto) Cook # (Auto) Seg Neutrophils % Seg Neuts % (Manual) Nucleated RBC % Seg Neutrophils # Seg Neutrophils # Man Lymphocytes # (Manual) ABG pH 7.470 H POC ABG pCO2 53.3 H POC ABG pO2 82.4 L ABG Hemoglobin 10.1 L ABG Oxyhemoglobin ABG Sodium 131.3 L ABG Potassium ABG Chloride 89.0 L ABG Glucose 123 H Carboxyhemoglobin Sodium Potassium Chloride 91.9 L 91.9 L Carbon Dioxide 39 H 38 H BUN 46 H 48 H Creatinine Glucose 141 H 142 H POC Glucose Lactic Acid Calcium 8.3 L Phosphorus AST ALT CK-MB (CK-2) Rel Index Troponin T NT-Pro-B Natriuret Pep Serum Total Protein Total Protein Albumin Thgzr-8-Lfrgiomdv Gamma Globulins PEP Interpretation HDL Cholesterol Arterial Blood Glucose 123 H Arterial Blood Ionized Calcium 4.3 L Urine WBC (Auto) Urine Creatinine Hepatitis C Antibody 12/16/20 12/16/20 12/17/20 22:04 22:13 04:28 WBC 13.4 H RBC 3.16 L Hgb 9.7 L Hct 29.2 L MCV Lymph % (Auto) Cook % (Auto) Lymph # (Auto) Cook # (Auto) Seg Neutrophils % Seg Neuts % (Manual) Nucleated RBC % Seg Neutrophils # Seg Neutrophils # Man Lymphocytes # (Manual) ABG pH 7.534 H POC ABG pCO2 50.1 H POC ABG pO2 ABG Hemoglobin 9.6 L ABG Oxyhemoglobin ABG Sodium 130.9 L ABG Potassium 3.1 L ABG Chloride 86.0 L ABG Glucose 133 H Carboxyhemoglobin Sodium Potassium Chloride Carbon Dioxide BUN Creatinine Glucose POC Glucose 137 H Lactic Acid Calcium Phosphorus AST ALT CK-MB (CK-2) Rel Index Troponin T NT-Pro-B Natriuret Pep Serum Total Protein Total Protein Albumin Svvyj-6-Ugwpzbbgq Gamma Globulins PEP Interpretation HDL Cholesterol Arterial Blood Glucose 133 H Arterial Blood Ionized Calcium 4.2 L Urine WBC (Auto) Urine Creatinine Hepatitis C Antibody 12/17/20 12/17/20 12/17/20 04:28 06:13 11:29 WBC RBC Hgb Hct MCV Lymph % (Auto) Cook % (Auto) Lymph # (Auto) Cook # (Auto) Seg Neutrophils % Seg Neuts % (Manual) Nucleated RBC % Seg Neutrophils # Seg Neutrophils # Man Lymphocytes # (Manual) ABG pH 7.517 H POC ABG pCO2 54.0 H POC ABG pO2 33.3 L ABG Hemoglobin 10.1 L ABG Oxyhemoglobin 65.9 L ABG Sodium 131.5 L ABG Potassium 3.2 L ABG Chloride 87.0 L ABG Glucose 116 H Carboxyhemoglobin Sodium 135 L Potassium 3.1 L D Chloride 85.9 L Carbon Dioxide 41 H* BUN 36 H Creatinine Glucose 110 H POC Glucose 110 H Lactic Acid Calcium Phosphorus AST ALT CK-MB (CK-2) Rel Index Troponin T NT-Pro-B Natriuret Pep Serum Total Protein Total Protein 5.1 L Albumin 2.9 L Ozukw-0-Npsfpmvhh Gamma Globulins PEP Interpretation HDL Cholesterol Arterial Blood Glucose 116 H Arterial Blood Ionized Calcium 4.3 L Urine WBC (Auto) Urine Creatinine Hepatitis C Antibody
--- NOTE | 2020-12-17 19:19 | Event Note ---
Date: 12/17/20 I called patient's son Katie Hayes at [phone] and discussed patient's condition, poor prognosis, CODE met/rapid response last night requiring transfer to ICU for close observation, patient's deterioration, continues to depend on high flow nasal cannula oxygen, lethargic all the time and poor prognosis. I also informed that insurance does not cover LTAC placement, and they recommended hospice, and that they would cover the hospice stay. He and his brother want to know more about hospice. I will place the hospice consult, and inform the case management.
[2020-12-18] MEDS: methylPREDNISolone Sod Succinate 125 MG/2 ML INJ IV SCH ×4 (00:27→18:15)
[2020-12-18] MEDS: HEPARIN 5,000 UNIT/1 ML VIAL SUB-Q SCH ×3 (06:25→22:10)
[2020-12-18] MEDS: BUDESONIDE 0.5 MG/2 ML NEBU IH SCH (08:15)
[2020-12-18] MEDS: IPRATROPIUM/ALBUTEROL SULFATE 3 ML AMPUL.NEB IH SCH ×2 (08:25→13:34)
--- NOTE | 2020-12-18 10:02 | Progress Note ---
Assessment and Plan Assessment and plan: Patient continues to require high flow nasal cannula oxygen, 25 L/FiO2 50%/O2 sats 100%/ Patient is lethargic, critically ill looking, in mild distress --Acute hypoxic respiratory failure/Requiring intubation 11/21/2020 s/p extubation 11/23/2020, patient was on noninvasive ventilation Currently on high flow nasal cannula oxygen trended down to 20 L/40% FiO2/96% O2 sats Pulmonary following, unable to wean, patient critically ill, awaiting LTAC placement --Uncontrolled hypertension; blood pressures well controlled today Continue current antihypertensives and as needed medications --Acute exacerbation of COPD; Home oxygen dependent. Patient is on 20 L high flow nasal cannula today BiPAP as needed, wean as tolerated Continue nebulizers, tapering dose of IV steroids, supportive care --Acute kidney injury; resolved Due to vasomotor nephropathy Monitor renal function avoid nephrotoxins --Severe pulmonary hypertension; Management per pulmonary, continue supportive care --Acute metabolic encephalopathy 11/21 CT head shows no acute intracranial abnormality, sinus disease Continue supportive care. As per family patient is back to baseline intermittently --NSTEMI type II Presented with [facility] with elevated troponins cardiology patient had a stress test in 2019 which showed no significant ischemi a, Echo; EF 50 to 55% severe pulmonary hypertension moderate mitral stenosis may benefit from [facility] for evaluation of mitral valve when patient is stable Medical management per cardiology --History of bladder cancer; Indwelling Paulson in place, supportive care Continue Flomax --Urinary tract infection; Completed antibiotics total 5 days --Dyslipidemia; Continue statin and low-cholesterol diet --Hypernatremia ; resolved Patient was hyponatremia on admission ,probably overcorrection Increase oral intake of water/monitor electrolytes --Severe protein calorie malnutrition ; Hypoalbuminemia ,nutrition supplements Nutrition consult and supportive care --Nutrition; cardiac diet as tolerated --DVT prophylaxis; Subcu heparin, SCDs --GI prophylaxis; Continue Prevacid --Full CODE STATUS; PT OT evaluation noted and appreciated Recommend home health PT and OT at discharge Today patient is requiring 15 L nasal cannula oxygen Will wean slowly to 2 to 4 L and plan discharge We will closely monitor the patient and adjust the management as needed Consults and recommendations noted and appreciated Plan of care reviewed with the patient's nurse Patient is critically ill poor prognosis I called patient's son Katie Hayes at [phone] on 12/17/2020 and discussed patient's condition, poor prognosis, option of hospice Patient is stable to be transferred back to the floor Critical care time 40 minutes The high probability of a clinically significant, sudden or life threatening deterioration of the [neuro, respiratory, pulmonary, metabolic l] system(s) required my full and direct attention, intervention and personal management. The aggregate critical care time was [40] minutes. This time is in addition to time spent performing reported procedures but includes the following: [x] Data Review and interpretation [x] Patient assessment and monitoring of vital signs [x] Documentation [x] Medication orders and management Brief history and daily hospital course: 85-year-old male patient with past medical history of COPD on home oxygen, GERD, hypertension, asthma, hyperlipidemia, vasopressin, bladder cancer admitted for acute hypoxic respiratory failure, intubated on 11/21/2020 managed appropriately evaluated by pulmonary critical subsequently extubated on 11/23/2020, today patient is on high flow nasal cannula oxygen, pulmonary critical, cardiology and nephrology following the patient 11/23: Patient was extubated, currently on BiPAP Mild distress, wean as tolerated 11/25/2020; patient is on BiPAP Mild distress, noncommunicative 11/26/2020; patient is on intermittent BiPAP Currently on high flow nasal cannula oxygen 11/27/2020; patient is more alert and awake Will get swallow screen, if normal start pured diet Transfer the patient to [facility] 11/28/2020; patient is on high flow oxygen slightly better than yesterday Able to tolerate mechanical soft diet when the family comes and helps him DC planning, considering LTAC placement 11/29 Still on HFNC oxygen 11/30 Still on HFNC oxygen 12/01 on 35 liters O2 714/21; patient remains on high flow nasal cannula oxygen requiring 25 L/FiO2 35%/O2 sats 96 Wean as tolerated, awaiting LTAC placement Patient is hemodynamically and clinically stable to be transferred out of [facility] to cardiac telemetry or medical floor with remote telemetry today. 12/04/2020; remains on high flow oxygen 25 L/35%/96% O2 sats Wean as tolerated, pending LTAC placement consider PT OT once patient's respiratory status is stable 12/05/2020; patient feels slightly better more alert and awake Responding to simple questions appropriately, titrated the oxygen Today patient is requiring 3 to 4 L of nasal cannula oxygen Significantly improved from yesterday when he needed 25 L Physical therapy evaluation and treatment, home oxygen evaluation prior to discharge 12/06/2020; patient is requiring 10 L of supplemental oxygen today Wean as tolerated PT OT evaluation recommendations noted, Possible discharge in 1 to 2 days if stable Patient's son Ana Miller [phone] at the bedside Discussed in detail patient's condition, tests and reports Discharge planning, answered all his questions 12/07/2020; today patient is requiring high flow nasal cannula oxygen, 25 L In mild distress, wean as tolerated to 3 to 4 L nasal cannula DC planning per case management, possible home with home health when patient is medically stable 12/08/2020 today patient is requiring high flow nasal cannula oxygen, but slightly improved patient is at 15 L O2 PT and OT recommend home health PT OT, wean patient off high flow oxygen Titrate to 3 to 4 L nasal cannula, possible discharge in 1 to 2 days if stable And cleared by pulmonary 12/09/2020; patient continues to require high flow nasal cannula oxygen between 15 to 20 L Management per pulmonary. Wean as tolerated I spoke with bilingual Uzbek speaking granddaughter at the bedside, answered all her questions 12/10/2020; no change clinically, continues to require 20 to 30 L of high flow nasal cannula oxygen If no improvement we will consider transferring to IMCU or ICU for close observation after discussing with pulmonary. 12/11/2020 I spoke to bilingual Uzbek speaking patient's son Ana Morejon [phone] And discussed in detail patient's condition, treatment plan, poor prognosis, plans of Transferring to [facility] when bed is available, and the patient is requiring high flow nasal cannula oxygen He verbalized understanding, full CODE STATUS at this point. Answered all his questions. 12/12/2020; patient is more alert and awake, feels slightly better still remains on high flow oxygen however titrating down Closely monitor, awaiting LTAC placement at [facility] , discussed with Uzbek- speaking family member at the bedside today Disposition; wean high flow oxygen as tolerated Discharge when patient is stable Follow pulmonary recommendations Resume service; 12/16/2020; patient remains on high flow oxygen 20 L, unable to wean Patient is lethargic and critically ill looking I spoke with patient's insurance company physician Librado, at [phone] #[address] Casarez informed that patient is not a candidate for LTAC, and insurance cannot approve it He gave other options of hospice/palliative care. We have addressed palliative care and CODE STATUS in the past with the family We will readdress again today tomorrow, and inquired the goals of treatment the family is interested in and the discharge planning. 12/17/2020; I spoke with patient's son I called patient's son Katie Hayes at [phone] and discussed patient's condition, poor prognosis, Options of hospice, would like to know more about hospice. Hospice consult placed CODE STATUS discussed with them, full code at this point 12/18/2020; family agreed for hospice evaluation which is pending Patient remains on high flow nasal cannula oxygen 25 L/45%/98% O2 sats Follow hospice evaluation and recommendations Possible discharge to hospice house versus home hospice History Interval history: Patient continues to require high flow nasal cannula oxygen 25/40/99% I have seen and examined the patient at the bedside this morning Patient's chart and medications reviewed Patient is on high flow nasal cannula oxygen 25 L/40% FiO2/99% O2 sats Patient is lethargic, in mild distress Vital signs reviewed Hospitalist Physical - Constitutional Vitals: Temp Pulse Resp BP Pulse Ox 98.3 F 72 18 140/60 99 12/18/20 03:27 12/18/20 03:27 12/18/20 03:27 12/18/20 03:27 12/18/20 08:00 General appearance: Present: mild distress, well-nourished, other (Noncommunicat rajendra/lethargic) - EENT Eyes: Present: PERRL, EOM intact - Neck Neck: Present: supple, normal ROM - Respiratory Respiratory effort: normal Respiratory: bilateral: diminished, negative: rales, rhonchi, wheezing - Cardiovascular Rhythm: regular Heart Sounds: Present: S1 & S2 - Extremities Extremities: no ischemia (I have you as a company otherwise I would have all of), No edema ( the most 838) - Abdominal General gastrointestinal: soft, non-tender, non-distended, normal bowel sounds - Integumentary Integumentary: Present: clear, warm - Psychiatric Psychiatric: other (Noncommunicative lethargic ) - Neurologic Neurologic: other (Noncommunicative) HEART Score - HEART Score Troponin: Troponin T 0.021 ng/mL (0.00-0.029) 11/29/20 04:43 Results - Labs CBC & Chem 7: 12/17/20 04:28 12/17/20 04:28 Labs: Laboratory Last Values WBC 13.4 K/mm3 (4.5-11.0) H 12/17/20 04:28 RBC 3.16 M/mm3 (3.65-5.03) L 12/17/20 04:28 Hgb 9.7 gm/dl (11.8-15.2) L 12/17/20 04:28 Hct 29.2 % (35.5-45.6) L 12/17/20 04:28 MCV 92 fl (84-94) 12/17/20 04:28 MCH 31 pg (28-32) 12/17/20 04:28 MCHC 33 % (32-34) 12/17/20 04:28 RDW 14.6 % (13.2-15.2) 12/17/20 04:28 Plt Count 153 K/mm3 (140-440) 12/17/20 04:28 Lymph % (Auto) 16.1 % (13.4-35.0) 11/23/20 10:00 [place] % (Auto) 15.0 % (0.0-7.3) H 11/23/20 10:00 Eos % (Auto) 1.0 % (0.0-4.3) 11/23/20 10:00 Baso % (Auto) 0.5 % (0.0-1.8) 11/23/20 10:00 Lymph # (Auto) 1.6 K/mm3 (1.2-5.4) 11/23/20 10:00 [place] # (Auto) 1.5 K/mm3 (0.0-0.8) H 11/23/20 10:00 Eos # (Auto) 0.1 K/mm3 (0.0-0.4) 11/23/20 10:00 Baso # (Auto) 0.1 K/mm3 (0.0-0.1) 11/23/20 10:00 Add Manual Diff Complete 11/25/20 08:18 Total Counted 100 11/25/20 08:18 Seg Neutrophils % Powder Nipper 11/25/20 08:18 Seg Neuts % (Manual) 98.0 % (40.0-70.0) H 11/25/20 08:18 Monocytes % (Manual) 2.0 % (0.0-7.3) 11/25/20 08:18 Nucleated RBC % 1.0 % (0.0-0.9) H 11/25/20 08:18 Seg Neutrophils # 6.6 K/mm3 (1.8-7.7) 11/23/20 10:00 Seg Neutrophils # Man 12.9 K/mm3 (1.8-7.7) H 11/25/20 08:18 Band Neutrophils # 0.0 K/mm3 11/25/20 08:18 Lymphocytes # (Manual) 0.0 K/mm3 (1.2-5.4) L 11/25/20 08:18 Abs React Lymphs (Man) 0.0 K/mm3 11/25/20 08:18 Monocytes # (Manual) 0.3 K/mm3 (0.0-0.8) 11/25/20 08:18 Eosinophils # (Manual) 0.0 K/mm3 (0.0-0.4) 11/25/20 08:18 Basophils # (Manual) 0.0 K/mm3 (0.0-0.1) 11/25/20 08:18 Metamyelocytes # 0.0 K/mm3 11/25/20 08:18 Myelocytes # 0.0 K/mm3 11/25/20 08:18 Promyelocytes # 43.8 K/mm3 11/25/20 08:18 Blast Cells # 0.0 K/mm3 11/25/20 08:18 WBC Morphology Not Reportable 11/25/20 08:18 Hypersegmented Neuts Not Reportable 11/25/20 08:18 Hyposegmented Neuts Not Reportable 11/25/20 08:18 Hypogranular Neuts Not Reportable 11/25/20 08:18 Smudge Cells Not Reportable 11/25/20 08:18 Toxic Granulation Few 11/25/20 08:18 Toxic Vacuolation Not Reportable 11/25/20 08:18 Dohle Bodies Not Reportable 11/25/20 08:18 Pelger-Huet Anomaly Not Reportable 11/25/20 08:18 Liang Rods Not Reportable 11/25/20 08:18 Platelet Estimate Consistent w auto 11/25/20 08:18 Clumped Platelets Not Reportable 11/25/20 08:18 Plt Clumps, EDTA Not Reportable 11/25/20 08:18 Large Platelets Not Reportable 11/25/20 08:18 Giant Platelets Not Reportable 11/25/20 08:18 Platelet Satelliting Not Reportable 11/25/20 08:18 Plt Morphology Comment Not Reportable 11/25/20 08:18 RBC Morphology Not Reportable 11/25/20 08:18 Dimorphic RBCs Not Reportable 11/25/20 08:18 Polychromasia Not Reportable 11/25/20 08:18 Hypochromasia 1+ 11/25/20 08:18 Poikilocytosis Not Reportable 11/25/20 08:18 Anisocytosis Not Reportable 11/25/20 08:18 Microcytosis Not Reportable 11/25/20 08:18 Macrocytosis Not Reportable 11/25/20 08:18 Spherocytes Not Reportable 11/25/20 08:18 Pappenheimer Bodies Not Reportable 11/25/20 08:18 Sickle Cells Not Reportable 11/25/20 08:18 Target Cells 1+ 11/25/20 08:18 Tear Drop Cells Not Reportable 11/25/20 08:18 Ovalocytes Not Reportable 11/25/20 08:18 Helmet Cells Not Reportable 11/25/20 08:18 [place] Bodies Not Reportable 11/25/20 08:18 [place] Rings Not Reportable 11/25/20 08:18 Deep Cells Not Reportable 11/25/20 08:18 Bite Cells Not Reportable 11/25/20 08:18 Crenated Cell Not Reportable 11/25/20 08:18 Elliptocytes Not Reportable 11/25/20 08:18 Acanthocytes (Spur) Not Reportable 11/25/20 08:18 Rouleaux Not Reportable 11/25/20 08:18 Hemoglobin C Crystals Not Reportable 11/25/20 08:18 Schistocytes Not Reportable 11/25/20 08:18 Malaria parasites Not Reportable 11/25/20 08:18 Fuad Bodies Not Reportable 11/25/20 08:18 Hem Pathologist Commnt No 11/25/20 08:18 PT 13.5 Sec. (12.2-14.9) 11/21/20 20:50 INR 0.98 (0.87-1.13) 11/21/20 20:50 APTT 32.1 Sec. (24.2-36.6) 11/21/20 20:50 ABG pH 7.517 (7.320-7.450) H 12/17/20 06:13 POC ABG pCO2 54.0 mmHg (32.0-48.0) H 12/17/20 06:13 POC ABG pO2 33.3 mmHg (83-108) L 12/17/20 06:13 POC ABG HCO3 42.8 12/17/20 06:13 ABG O2 Saturation 66.7 (0-100) 12/17/20 06:13 POC ABG Base Excess 17.7 12/17/20 06:13 ABG Hemoglobin 10.1 (12.0-17.5) L 12/17/20 06:13 ABG Oxyhemoglobin 65.9 (94-98) L 12/17/20 06:13 ABG Methemoglobin 0.3 (0.0-1.5) 12/17/20 06:13 ABG Sodium 131.5 mmol/L (136.0-145.0) L 12/17/20 06:13 ABG Potassium 3.2 mmol/L (3.40-4.50) L 12/17/20 06:13 ABG Chloride 87.0 mmol/L (98-107) L 12/17/20 06:13 ABG Glucose 116 mg/dL (65-95) H 12/17/20 06:13 Carboxyhemoglobin 0.9 (0.5-1.5) 12/17/20 06:13 FiO2 % 60.0 12/17/20 06:13 Sodium 135 mmol/L (137-145) L 12/17/20 04:28 Potassium 3.1 mmol/L (3.6-5.0) L D 12/17/20 04:28 Chloride 85.9 mmol/L (98-107) L 12/17/20 04:28 Carbon Dioxide 41 mmol/L (22-30) H* 12/17/20 04:28 Anion Gap 11 mmol/L 12/17/20 04:28 BUN 36 mg/dL (9-20) H 12/17/20 04:28 Creatinine 1.1 mg/dL (0.8-1.3) 12/17/20 04:28 Estimated GFR > 60 ml/min 12/17/20 04:28 BUN/Creatinine Ratio 33 % 12/17/20 04:28 Glucose 110 mg/dL (75-100) H 12/17/20 04:28 POC Glucose 159 mg/dL (70-105) H 12/17/20 17:25 Lactic Acid 0.60 mmol/L (0.7-2.0) L 11/24/20 09:58 Calcium 8.6 mg/dL (8.4-10.2) 12/17/20 04:28 Phosphorus 3.20 mg/dL (2.5-4.5) 12/17/20 04:28 Magnesium 2.10 mg/dL (1.7-2.3) 12/17/20 04:28 Total Bilirubin 0.90 mg/dL (0.1-1.2) 12/17/20 04:28 AST 27 units/L (5-40) 12/17/20 04:28 ALT 26 units/L (7-56) 12/17/20 04:28 Alkaline Phosphatase 55 units/L (35-129) 12/17/20 04:28 Total Creatine Kinase 132 units/L (55-170) 11/22/20 10:20 CK-MB (CK-2) 3.3 ng/mL (0.0-4.0) 11/22/20 10:20 CK-MB (CK-2) Rel Index 2.5 (0-4) 11/22/20 10:20 Troponin T 0.021 ng/mL (0.00-0.029) 11/29/20 04:43 NT-Pro-B Natriuret Pep 4253 pg/mL (0-900) H 12/09/20 08:43 Serum Total Protein 5.3 g/dL (6.1-8.1) L 11/23/20 10:00 Total Protein 5.1 g/dL (6.3-8.2) L 12/17/20 04:28 Albumin 2.9 g/dL (3.9-5) L 12/17/20 04:28 Albumin/Globulin Ratio 1.3 % 12/17/20 04:28 Dpege-5-Vouoozwid 0.4 g/dL (0.2-0.3) H 11/23/20 10:00 Rciao-7-Zqgootmuc 0.8 g/dL (0.5-0.9) 11/23/20 10:00 Beta Globulins 0.3 g/dL (0.2-0.5) 11/23/20 10:00 Gamma Globulins 0.7 g/dL (0.8-1.7) L 11/23/20 10:00 Abnorm Protein Band 1 see below 11/23/20 10:00 PEP Interpretation see below H 11/23/20 10:00 Triglycerides 84 mg/dL (2-149) 11/21/20 20:50 Cholesterol 125 mg/dL (50-199) 11/21/20 20:50 LDL Cholesterol Direct 57 mg/dL (50-130) 11/21/20 20:50 HDL Cholesterol 60 mg/dL (40-59) H 11/21/20 20:50 Cholesterol/HDL Ratio 2.08 % 11/21/20 20:50 TSH 1.290 mlU/mL (0.270-4.200) 11/21/20 20:50 Free T4 1.18 ng/dL (0.76-1.46) 11/21/20 20:50 Arterial Blood Glucose 116 mg/dL (65-95) H 12/17/20 06:13 Arterial Blood Ionized Calcium 4.3 mg/dL (4.6-5.3) L 12/17/20 06:13 Urine Color Yellow (Yellow) 11/22/20 05:00 Urine Turbidity Slightly-cloudy (Clear) 11/22/20 05:00 Urine pH 5.0 (5.0-7.0) 11/22/20 05:00 Ur Specific Williams 1.016 (1.003-1.030) 11/22/20 05:00 Urine Protein 30 mg/dl mg/dL (Negative) 11/22/20 05:00 Urine Glucose (UA) Neg mg/dL (Negative) 11/22/20 05:00 Urine Ketones Neg mg/dL (Negative) 11/22/20 05:00 Urine Blood Lg (Negative) 11/22/20 05:00 Urine Nitrite Neg (Negative) 11/22/20 05:00 Urine Bilirubin Neg (Negative) 11/22/20 05:00 Urine Urobilinogen < 2.0 mg/dL (<2.0) 11/22/20 05:00 Ur Leukocyte Esterase Tr (Negative) 11/22/20 05:00 Urine WBC (Auto) 33.0 /HPF (0.0-6.0) H 11/22/20 05:00 Urine RBC (Auto) 49.0 /HPF (0.0-6.0) 11/22/20 05:00 U Epithel Cells (Auto) 1.0 /HPF (0-13.0) 11/22/20 05:00 Hyaline Casts 4 /LPF 11/22/20 05:00 Urine Mucus 1+ /HPF 11/22/20 05:00 Urine Eosinophils None seen (None Seen) 11/24/20 17:55 Urine Creatinine 158.2 mg/dL (0.1-20.0) H 11/22/20 00:11 Urine Sodium 39 mmol/L 11/22/20 00:11 Fraction Sodium Excret 0.3 11/22/20 00:11 Urine Opiates Screen Presumptive negative 11/22/20 00:11 Urine Methadone Screen Presumptive negative 11/22/20 00:11 Ur Barbiturates Screen Presumptive negative 11/22/20 00:11 Ur Phencyclidine Scrn Presumptive negative 11/22/20 00:11 Ur Amphetamines Screen Presumptive negative 11/22/20 00:11 U Benzodiazepines Scrn Presumptive negative 11/22/20 00:11 Urine Cocaine Screen Presumptive negative 11/22/20 00:11 U Marijuana (THC) Screen Presumptive negative 11/22/20 00:11 Drugs of Abuse Note Disclamer 11/22/20 00:11 Plasma/Serum Alcohol < 0.01 % (0-0.07) 11/21/20 20:50 Proteinase 3 (PR3) Ab <1.0 AI (<1.0) 11/22/20 16:00 Myeloperoxidase Ab <1.0 AI (<1.0) 11/22/20 16:00 Double Strand DNA Ab 1 IU/mL (<=4) 11/22/20 16:00 Complement C3 93 mg/dL () 11/22/20 16:00 Complement C4 25 mg/dL () 11/22/20 16:00 Coronavirus (PCR) Negative (Negative) 11/23/20 09:30 Hepatitis A IgM Ab Non-reactive (NonReactive) 11/22/20 16:00 Hep Bs Antigen Non-reactive (Negative) 11/22/20 16:00 Hep B Core IgM Ab Non-reactive (NonReactive) 11/22/20 16:00 Hepatitis C Antibody Reactive (NonReactive) A 11/22/20 16:00 Paulson/IV: Voiding Method Condom Catheter Active Medications - Current Medications Current Medications: Generic Name Dose Route Start Last Admin Trade Name Freq PRN Reason Stop Dose Admin Acetaminophen 650 mg 11/23/20 15:29 12/15/20 17:58 Acetaminophen 325 Mg Tab PO 650 mg Q4H PRN Administration Pain, Mild (1-3) Albuterol 2.5 mg 11/22/20 01:19 Albuterol 2.5 Mg/3 Ml Nebu IH Q4HRT PRN Shortness Of Breath Albuterol/Ipratropium 1 ampul 12/11/20 08:00 12/18/20 08:25 Ipratropium/Albuterol Sulfate 3 Ml Ampul.Neb IH 1 ampul TIDRT TERESA Administration Lipase/Protease/Amylase 1 each 11/22/20 09:07 Lipase 10,500/Protease 25,000/Amylase 43,750 (Units) Dr Ger FARIA PRN PRN For Clogged Feeding Tube Aspirin 81 mg 11/23/20 10:00 12/17/20 09:34 Aspirin 81 Mg Tab Chew PO 81 mg QDAY TERESA Administration Atorvastatin Calcium 40 mg 11/22/20 22:00 12/17/20 21:56 Atorvastatin 40 Mg Tab PO 40 mg QHS TERESA Administration Budesonide 0.5 mg 11/24/20 14:55 12/18/20 08:15 Budesonide 0.5 Mg/2 Ml Nebu IH 0.5 mg Q12HRT TERESA Administration Carvedilol 12.5 mg 12/03/20 22:00 12/17/20 21:56 Carvedilol 12.5 Mg Tab PO 12.5 mg BID TERESA Administration Heparin Sodium (Porcine) 5,000 unit 11/22/20 06:00 12/18/20 06:25 Heparin 5,000 Unit/1 Ml Vial SUB-Q 5,000 unit Q8HR TERESA Administration Hydralazine HCl 10 mg 11/22/20 01:24 12/17/20 01:10 Hydralazine 20 Mg/1 Ml Inj IV 10 mg Q6H PRN Administration Blood Pressure Lactulose 20 gm 12/13/20 17:02 12/13/20 17:10 Lactulose 20 Gm/30 Ml Oral Liqd PO 20 gm QDAY PRN Administration Constipation Lansoprazole 30 mg 11/28/20 10:00 12/17/20 09:39 Lansoprazole 30 Mg Solutab FEEDTUBE 30 mg QDAY TERESA Administration Methylprednisolone Sodium Succinate 60 mg 12/08/20 12:00 12/18/20 06:26 Methylprednisolone Sod Succinate 125 Mg/2 Ml Inj IV 60 mg Q6HR TERESA Administration Nitroglycerin 0.4 mg 11/22/20 01:25 12/06/20 05:22 Nitroglycerin 0.4 Mg Tab Subl SL 0.4 mg Q5M PRN Administration Chest Pain Ondansetron HCl 4 mg 11/22/20 01:19 Ondansetron 4 Mg/2 Ml Inj IV Q8H PRN Nausea And Vomiting Oxycodone/Acetaminophen 1 tab 12/16/20 11:00 12/16/20 14:18 Oxycodone /Acetaminophen 5-325mg Tab PO 1 tab Q6H PRN Administration Pain, Moderate (4-6) Quetiapine Fumarate 25 mg 11/27/20 12:00 12/17/20 21:55 Quetiapine 25 Mg Tab PO 25 mg BID TERESA Administration Senna/Docusate Sodium 1 tab 11/22/20 10:00 12/17/20 21:55 Sennosides/Docusate Sodium 8.6/50 Mg Tab FEEDTUBE 1 tab BID TERESA Administration Simple Syrup 15 ml 11/22/20 09:07 Simple Syrup 15 Ml FEEDTUBE PRN PRN Hypoglycemia Simple Syrup 30 ml 11/22/20 09:07 Simple Syrup 15 Ml FEEDTUBE PRN PRN Hypoglycemia Sodium Bicarbonate 325 mg 11/22/20 09:07 Sodium Bicarbonate 325 Mg Tab FEEDTUBE PRN PRN For Clogged Feeding Tube Sodium Chloride 10 ml 11/22/20 10:00 12/17/20 21:56 Sodium Chloride 0.9% 10 Ml Flush Syringe IV 10 ml BID TERESA Administration Sodium Chloride 10 ml 11/22/20 01:19 12/18/20 06:26 Sodium Chloride 0.9% 10 Ml Flush Syringe IV 10 ml PRN PRN Administration LINE FLUSH Tamsulosin HCl 0.4 mg 11/22/20 10:00 12/17/20 09:31 Tamsulosin 0.4 Mg Cap PO 0.4 mg DAILY TERESA Administration Nutrition/Malnutrition Assess - Dietary Evaluation Nutrition/Malnutrition Findings: Nutrition Notes Start: 11/22/20 08:53 Freq: Status: Active Protocol: Document 12/16/20 15:59 CW (Rec: 12/16/20 16:05 CW [email or web address]) Nutrition Notes Initial or Follow up Reassessment Current Diagnosis COPD,Hypertension,Respiratory Failure Other Pertinent Diagnosis Encephalopathy, UTI, pulmonary HTN Current Diet Mech soft Labs/Tests no new labs Pertinent Medications Lasix senokot Height 5 ft 3 in Weight 79 kg [place] [facility] Body Weight (kg) 56.36 BMI 30.8 Weight change and time frame weight change noted; likely related to fluid Weight Status Overweight Subjective/Other Information Son in room at time of visit and reports pt has not yet eaten neither yesterday nor today. Recommend appetite stimulant. Pt is as nutritional risk. Pt family ontinues to bring in meals that he prefers but pt continues to sleep. Percent of energy/protein needs met: Negligible Burn Absent Trauma Absent Current % PO Negligible Minimum of two criteria No physical signs of malnutrition #1 Nutrition Diagnosis Inadequate oral intake Diagnosis Progress(for reassessment Continues documentation) Is patient on ventilator? No Is Patient Ambulatory and/or Out of Bed No REE-([facility]-confined to bed) [phone] Calculation Used for Recommendations [facility] Additional Notes Pro needs 1-1.2g/k-87g/ day Fluid needs 1ml/kcal Nutrition Intervention Change Diet Order: Continue current diet Goal #1 PO intake to meet at least 75% energy and pro needs Anticipated Discharge Needs: mech soft, consistent CHO Follow-Up By: 12/18/20 Additional Comments F/U POC
--- NOTE | 2020-12-18 11:57 | Progress Note ---
Assessment and Plan 85 y/o indian male admitted with acute hypoxic respiratory failure. 12/18/20: Wean FiO2 as tolerated for sats >88%. Per IMS note patient brother interested in hospice. Not unreasonable. Continue steroids. Guarded prognosis. 12/17/20: Hold on lasix today. Continue steroids but start weaning likely tomorrow. Alkalemia is secondary to lasix and steroids, likely more so from the lasix. Continue supportive care. Will continue to follow. 12/16/20: Lasix again today. Will order BMP. Reviewed CM note in regards to PEER to PEER need. I did the last one. I'm not sure what they are looking for as this is now the second round of the patient requiring high dose IV steroids and HFNC. If he goes home, he will decompensate and could end up back on mechanical ventilation or worse, . This was explained in the last Peer to Peer. Continue high dose steroids and wean as tolerated. Guarded prognosis. 12/15/20: Lasix 40 today. Continue high dose steroids. Wean FiO2 and Flow for sats >88%. Ok with sitting up in chair if patient will cooperate. PT/OT. Hopeful insurer will approve LTACH soon as patient really would benefit from this. 12/12/20: Lasix again today. Ordered labs for today. Continue to wean FiO2 for sats >88%. Follow up with CM. Prognosis still remains guarded but more promising now that oxygen requirement is coming down. 12/11/20: Lasix again today. Labs stable on yesterday. Continues to have desats at night. Hesitant to order positive pressure at night as this could make the patient more agitated and worsen oxygenation but may consider if the same thing happens again tonight. Follow up with CM on LTACH as he definitely needs it. Will continue to follow. Guarded prognosis. 12/10/20: BNP elevated, lasix again today. Ordered labs for this am, will review once back. May need to increase night time seroquel as night nurse documented patient taking off cannula constantly but easy redirection. Appeal done by CM. Continue High dose steroids. Guarded prognosis. 12/09/20: Continue High Dose IV steroids. Follow up BNP. Today will give lasix 40mg IV x1. Please ask CM to appeal LTACH denial as patient will need it. After speaking with RT, patient becomes very agitated and frustrated secondary to language barrier and will remove supplemental O2 requiring him to be put on higher numbers to recover. Suggest using language line more often or calling daughter who is in the medical profession and speaks very good cymraes. Will continue to follow. 12/08/20: with change in oxygen requirement, will place back on IV steroids. Will order labs including BNP today and give lasix 20mg IV x1. Initial LTACH request was denied, suggest having CM appeal it now that patient is back on HFNC. Will continue to follow. 12/06/20: Steroid taper as follows: 60 daily for 5 days, 40 daily for 5 days, 20 daily for 5 days, 10 daily for 5 days. Resume whatever home regimen patient was on at home. Wean Oxygen for sats >88%, likely patient will be fine on 2-3 liters, does not need 4. Will sign off. Call if questions. 12/05/20: Change to oral steroids starting tomorrow with prolonged taper. Likely dischargeable over the weekend. 12/04/20: LTACH denied. Continue to wean. Continue IV steroids. 12/03/20: Follow up with CM in regards to LTACH. Continue IV steroids. Wean FiO2 as tolerated. PT/OT if not already evaluated. Patient stable enough to transfer to floor. 12/02/20: CM still waiting to hear back from LTACH in regards to auth. Continue to wean FiO2 as tolerated for sats >88%. Continue IV steroids. 12/01/20: Wean HFNC for sats >88%. Spoke with CM about checking on LTACH but patient may be able to be weaned further now while in house. Will speak with RT about this. If placed on salter, may need to consider transfer to medical/surgical floor with remote tele. 11/28/20: Continue to wean HFNC. Agree with holding Precedex, can increase seroquel if needed to help with mood. Hopeful that over the weekend will be down to nasal cannula and can transfer to the floor. CM working on LTACH evaluation. Patient is stable for transfer, if and when accepted. 11/27/20: Will transfer to step down today. Agree with bedside swallow eval now that patient is more awake. Will try bID seroquel to help with mood and agitation. Hopeful Cr has stablized. Continue steroids at 40q8. Consider LTACH evaluation 11/26/20: 11/25/20: Continue bipap for right now. Added precedex and stopped ativan as this may be worsening agitation. Ok with haldol use. Continue daily diuretics to keep patient net negative. Continue ICU monitoring for now. Renal function is better. Guarded prognosis. 11/23/20: Wean sedation to off. If patient can tolerate being off sedation, will attempt PSV trial, otherwise, will likely have to just stop sedation and extubate, will have bipap ready for as needed purposes. Needs chemistry to assess renal function. Out put was good. 1. Repeat ABG later this afternoon and wean FIO2 according (>88%) 2. Stop sedation, need to assess mental state 3. Follow up renal function and urine output. 4. Guarded prognosis, this is likely acute on chronic respiratory failure. cct 31 minutes. Subjective Date of service: 12/18/20 Principal diagnosis: Acute respiratory failure Interval history: No acute events. Stable on Floor after transfer from [facility] Objective Vital Signs - 12hr 12/18/20 12/18/20 03:27 08:00 Temperature 98.3 F Pulse Rate 72 Respiratory 18 Rate Blood Pressure 140/60 O2 Sat by Pulse 90 99 Oximetry Constitutional: no acute distress, alert, agitated, other Eyes: non-icteric ENT: oropharynx moist, other (Crowded oropharynx) Neck: supple, other (large in circumference) Effort: normal Ascultation: Bilateral: clear, diminished breath sounds, wheezes Percussion: Bilateral: not dull Cardiovascular: other (tachy, no mrg) Gastrointestinal: normoactive bowel sounds, soft, non-tender, non-distended Extremities: no cyanosis, no edema, pink and warm Neurologic: normal mental status, non-focal exam, pupils equal and round Psychiatric: mood appropriate, affect normal CBC and BMP: 12/17/20 04:28 12/17/20 04:28 ABG, PT/INR, D-dimer: ABG ABG pH 7.517 (7.320-7.450) H 12/17/20 06:13 POC ABG pCO2 54.0 mmHg (32.0-48.0) H 12/17/20 06:13 POC ABG pO2 33.3 mmHg (83-108) L 12/17/20 06:13 POC ABG HCO3 42.8 12/17/20 06:13 ABG O2 Saturation 66.7 (0-100) 12/17/20 06:13 PT/INR, D-dimer PT 13.5 Sec. (12.2-14.9) 11/21/20 20:50 INR 0.98 (0.87-1.13) 11/21/20 20:50 Abnormal lab findings: Abnormal Labs 11/21/20 11/21/20 11/22/20 20:50 20:50 00:11 WBC RBC 3.48 L Hgb 11.1 L Hct 34.3 L MCV 99 H Lymph % (Auto) 6.8 L [place] % (Auto) Lymph # (Auto) 0.6 L [place] # (Auto) Seg Neutrophils % 85.5 H Seg Neuts % (Manual) Nucleated RBC % Seg Neutrophils # Seg Neutrophils # Man Lymphocytes # (Manual) ABG pH POC ABG pCO2 POC ABG pO2 ABG Hemoglobin ABG Oxyhemoglobin ABG Sodium ABG Potassium ABG Chloride ABG Glucose Carboxyhemoglobin Sodium 130 L Potassium 7.3 H* Chloride 91.1 L Carbon Dioxide BUN 40 H Creatinine 2.1 H Glucose 195 H POC Glucose Lactic Acid Calcium Phosphorus AST 91 H ALT 65 H CK-MB (CK-2) Rel Index 4.1 H Troponin T 0.045 H NT-Pro-B Natriuret Pep 6998 H Serum Total Protein Total Protein Albumin 3.7 L Oxdue-9-Szjsbqaqz Gamma Globulins PEP Interpretation HDL Cholesterol 60 H Arterial Blood Glucose Arterial Blood Ionized Calcium Urine WBC (Auto) Urine Creatinine 158.2 H Hepatitis C Antibody 11/22/20 11/22/20 11/22/20 00:23 00:40 01:37 WBC 14.1 H RBC 3.53 L Hgb 11.0 L Hct 34.1 L MCV 97 H Lymph % (Auto) 12.3 L [place] % (Auto) 14.2 H Lymph # (Auto) [place] # (Auto) 2.0 H Seg Neutrophils % 72.3 H Seg Neuts % (Manual) Nucleated RBC % Seg Neutrophils # 10.2 H Seg Neutrophils # Man Lymphocytes # (Manual) ABG pH POC ABG pCO2 POC ABG pO2 ABG Hemoglobin ABG Oxyhemoglobin ABG Sodium ABG Potassium ABG Chloride ABG Glucose Carboxyhemoglobin Sodium Potassium 5.1 H D Chloride Carbon Dioxide BUN Creatinine Glucose POC Glucose Lactic Acid 2.10 H* Calcium Phosphorus AST ALT CK-MB (CK-2) Rel Index Troponin T NT-Pro-B Natriuret Pep Serum Total Protein Total Protein Albumin Pnaib-0-Uupyozbiw Gamma Globulins PEP Interpretation HDL Cholesterol Arterial Blood Glucose Arterial Blood Ionized Calcium Urine WBC (Auto) Urine Creatinine Hepatitis C Antibody 11/22/20 11/22/20 11/22/20 01:37 03:20 05:00 WBC RBC Hgb Hct MCV Lymph % (Auto) [place] % (Auto) Lymph # (Auto) [place] # (Auto) Seg Neutrophils % Seg Neuts % (Manual) Nucleated RBC % Seg Neutrophils # Seg Neutrophils # Man Lymphocytes # (Manual) ABG pH POC ABG pCO2 58.4 H POC ABG pO2 ABG Hemoglobin 11.1 L ABG Oxyhemoglobin ABG Sodium 135.1 L ABG Potassium 5.0 H ABG Chloride ABG Glucose Carboxyhemoglobin Sodium Potassium 5.1 H Chloride Carbon Dioxide 31 H BUN 40 H Creatinine 2.0 H Glucose 49 L POC Glucose Lactic Acid Calcium Phosphorus AST ALT CK-MB (CK-2) Rel Index Troponin T NT-Pro-B Natriuret Pep Serum Total Protein Total Protein Albumin Xvkpt-0-Ducmexoyo Gamma Globulins PEP Interpretation HDL Cholesterol Arterial Blood Glucose Arterial Blood Ionized Calcium Urine WBC (Auto) 33.0 H Urine Creatinine Hepatitis C Antibody 11/22/20 11/22/20 11/22/20 05:00 05:00 05:00 WBC RBC Hgb Hct MCV Lymph % (Auto) [place] % (Auto) Lymph # (Auto) [place] # (Auto) Seg Neutrophils % Seg Neuts % (Manual) Nucleated RBC % Seg Neutrophils # Seg Neutrophils # Man Lymphocytes # (Manual) ABG pH POC ABG pCO2 POC ABG pO2 ABG Hemoglobin ABG Oxyhemoglobin ABG Sodium ABG Potassium ABG Chloride ABG Glucose Carboxyhemoglobin Sodium 136 L Potassium Chloride 97.8 L Carbon Dioxide BUN 41 H Creatinine 1.8 H 1.8 H Glucose POC Glucose Lactic Acid Calcium 8.2 L Phosphorus AST ALT CK-MB (CK-2) Rel Index Troponin T 0.065 H D NT-Pro-B Natriuret Pep Serum Total Protein Total Protein Albumin Cepvw-2-Wvxgnqban Gamma Globulins PEP Interpretation HDL Cholesterol Arterial Blood Glucose Arterial Blood Ionized Calcium Urine WBC (Auto) Urine Creatinine Hepatitis C Antibody 11/22/20 11/22/20 11/22/20 10:20 10:20 15:00 WBC RBC 3.16 L Hgb 10.2 L Hct 29.9 L MCV 95 H Lymph % (Auto) [place] % (Auto) Lymph # (Auto) [place] # (Auto) Seg Neutrophils % Seg Neuts % (Manual) Nucleated RBC % Seg Neutrophils # Seg Neutrophils # Man Lymphocytes # (Manual) ABG pH 7.501 H POC ABG pCO2 POC ABG pO2 ABG Hemoglobin 10.5 L ABG Oxyhemoglobin ABG Sodium 134.9 L ABG Potassium ABG Chloride ABG Glucose 115 H Carboxyhemoglobin 0.4 L Sodium Potassium Chloride Carbon Dioxide BUN Creatinine Glucose POC Glucose Lactic Acid Calcium Phosphorus AST ALT CK-MB (CK-2) Rel Index Troponin T 0.078 H NT-Pro-B Natriuret Pep Serum Total Protein Total Protein Albumin Hedlc-3-Akyiemmjl Gamma Globulins PEP Interpretation HDL Cholesterol Arterial Blood Glucose 115 H Arterial Blood Ionized Calcium 4.3 L Urine WBC (Auto) Urine Creatinine Hepatitis C Antibody 11/22/20 11/22/20 11/22/20 16:00 17:45 23:21 WBC RBC Hgb Hct MCV Lymph % (Auto) [place] % (Auto) Lymph # (Auto) [place] # (Auto) Seg Neutrophils % Seg Neuts % (Manual) Nucleated RBC % Seg Neutrophils # Seg Neutrophils # Man Lymphocytes # (Manual) ABG pH POC ABG pCO2 POC ABG pO2 ABG Hemoglobin ABG Oxyhemoglobin ABG Sodium ABG Potassium ABG Chloride ABG Glucose Carboxyhemoglobin Sodium Potassium Chloride Carbon Dioxide BUN Creatinine Glucose POC Glucose 107 H 115 H Lactic Acid Calcium Phosphorus AST ALT CK-MB (CK-2) Rel Index Troponin T NT-Pro-B Natriuret Pep Serum Total Protein Total Protein Albumin Sloqt-2-Ctjxzwruf Gamma Globulins PEP Interpretation HDL Cholesterol Arterial Blood Glucose Arterial Blood Ionized Calcium Urine WBC (Auto) Urine Creatinine Hepatitis C Antibody Reactive A 11/23/20 11/23/20 11/23/20 03:03 05:33 10:00 WBC RBC 3.33 L Hgb 10.6 L Hct 32.2 L MCV 97 H Lymph % (Auto) [place] % (Auto) 15.0 H Lymph # (Auto) [place] # (Auto) 1.5 H Seg Neutrophils % Seg Neuts % (Manual) Nucleated RBC % Seg Neutrophils # Seg Neutrophils # Man Lymphocytes # (Manual) ABG pH POC ABG pCO2 POC ABG pO2 115.8 H ABG Hemoglobin 10.1 L ABG Oxyhemoglobin ABG Sodium 135.8 L ABG Potassium ABG Chloride ABG Glucose 98 H Carboxyhemoglobin 0.4 L Sodium Potassium Chloride Carbon Dioxide BUN Creatinine Glucose POC Glucose 106 H Lactic Acid Calcium Phosphorus AST ALT CK-MB (CK-2) Rel Index Troponin T NT-Pro-B Natriuret Pep Serum Total Protein Total Protein Albumin Bxfcd-2-Bdljistks Gamma Globulins PEP Interpretation HDL Cholesterol Arterial Blood Glucose 98 H Arterial Blood Ionized Calcium 4.4 L Urine WBC (Auto) Urine Creatinine Hepatitis C Antibody 11/23/20 11/23/20 11/23/20 10:00 10:00 12:12 WBC RBC Hgb Hct MCV Lymph % (Auto) [place] % (Auto) Lymph # (Auto) [place] # (Auto) Seg Neutrophils % Seg Neuts % (Manual) Nucleated RBC % Seg Neutrophils # Seg Neutrophils # Man Lymphocytes # (Manual) ABG pH POC ABG pCO2 POC ABG pO2 ABG Hemoglobin ABG Oxyhemoglobin ABG Sodium ABG Potassium ABG Chloride ABG Glucose Carboxyhemoglobin Sodium Potassium Chloride Carbon Dioxide BUN 22 H Creatinine Glucose 101 H POC Glucose 119 H Lactic Acid Calcium 7.9 L Phosphorus AST ALT CK-MB (CK-2) Rel Index Troponin T NT-Pro-B Natriuret Pep Serum Total Protein 5.3 L Total Protein 5.5 L Albumin 2.8 L 2.8 L Dzinx-1-Bvulqwzov 0.4 H Gamma Globulins 0.7 L PEP Interpretation see below H HDL Cholesterol Arterial Blood Glucose Arterial Blood Ionized Calcium Urine WBC (Auto) Urine Creatinine Hepatitis C Antibody 11/23/20 11/23/20 11/24/20 18:21 23:28 01:48 WBC RBC Hgb Hct MCV Lymph % (Auto) [place] % (Auto) Lymph # (Auto) [place] # (Auto) Seg Neutrophils % Seg Neuts % (Manual) Nucleated RBC % Seg Neutrophils # Seg Neutrophils # Man Lymphocytes # (Manual) ABG pH 7.281 L POC ABG pCO2 58.4 H POC ABG pO2 ABG Hemoglobin 11.8 L ABG Oxyhemoglobin ABG Sodium ABG Potassium ABG Chloride ABG Glucose 101 H Carboxyhemoglobin Sodium Potassium Chloride Carbon Dioxide BUN Creatinine Glucose POC Glucose 106 H 108 H Lactic Acid Calcium Phosphorus AST ALT CK-MB (CK-2) Rel Index Troponin T NT-Pro-B Natriuret Pep Serum Total Protein Total Protein Albumin Sxkut-7-Sxmcigsdq Gamma Globulins PEP Interpretation HDL Cholesterol Arterial Blood Glucose 101 H Arterial Blood Ionized Calcium Urine WBC (Auto) Urine Creatinine Hepatitis C Antibody 11/24/20 11/24/20 11/25/20 09:58 09:58 00:29 WBC RBC Hgb Hct MCV Lymph % (Auto) [place] % (Auto) Lymph # (Auto) [place] # (Auto) Seg Neutrophils % Seg Neuts % (Manual) Nucleated RBC % Seg Neutrophils # Seg Neutrophils # Man Lymphocytes # (Manual) ABG pH POC ABG pCO2 POC ABG pO2 ABG Hemoglobin ABG Oxyhemoglobin ABG Sodium ABG Potassium ABG Chloride ABG Glucose Carboxyhemoglobin Sodium 148 H Potassium Chloride Carbon Dioxide 34 H D BUN Creatinine Glucose POC Glucose 111 H Lactic Acid 0.60 L Calcium Phosphorus AST ALT CK-MB (CK-2) Rel Index Troponin T NT-Pro-B Natriuret Pep Serum Total Protein Total Protein Albumin Gugdg-1-Bfhrlvplc Gamma Globulins PEP Interpretation HDL Cholesterol Arterial Blood Glucose Arterial Blood Ionized Calcium Urine WBC (Auto) Urine Creatinine Hepatitis C Antibody 11/25/20 11/25/20 11/25/20 05:48 08:18 08:18 WBC 13.2 H RBC 3.56 L Hgb 10.9 L Hct 34.0 L MCV 96 H Lymph % (Auto) [place] % (Auto) Lymph # (Auto) [place] # (Auto) Seg Neutrophils % Seg Neuts % (Manual) 98.0 H Nucleated RBC % 1.0 H Seg Neutrophils # Seg Neutrophils # Man 12.9 H Lymphocytes # (Manual) 0.0 L ABG pH POC ABG pCO2 POC ABG pO2 ABG Hemoglobin ABG Oxyhemoglobin ABG Sodium ABG Potassium ABG Chloride ABG Glucose Carboxyhemoglobin Sodium 147 H Potassium Chloride Carbon Dioxide 32 H BUN 26 H Creatinine Glucose 151 H POC Glucose 148 H Lactic Acid Calcium Phosphorus AST ALT CK-MB (CK-2) Rel Index Troponin T NT-Pro-B Natriuret Pep Serum Total Protein Total Protein 6.0 L Albumin 3.7 L Dlqnd-8-Lkwnmfytz Gamma Globulins PEP Interpretation HDL Cholesterol Arterial Blood Glucose Arterial Blood Ionized Calcium Urine WBC (Auto) Urine Creatinine Hepatitis C Antibody 11/25/20 11/25/20 11/25/20 11:34 18:03 23:15 WBC RBC Hgb Hct MCV Lymph % (Auto) [place] % (Auto) Lymph # (Auto) [place] # (Auto) Seg Neutrophils % Seg Neuts % (Manual) Nucleated RBC % Seg Neutrophils # Seg Neutrophils # Man Lymphocytes # (Manual) ABG pH POC ABG pCO2 POC ABG pO2 ABG Hemoglobin ABG Oxyhemoglobin ABG Sodium ABG Potassium ABG Chloride ABG Glucose Carboxyhemoglobin Sodium Potassium Chloride Carbon Dioxide BUN Creatinine Glucose POC Glucose 144 H 147 H 158 H Lactic Acid Calcium Phosphorus AST ALT CK-MB (CK-2) Rel Index Troponin T NT-Pro-B Natriuret Pep Serum Total Protein Total Protein Albumin Kruow-0-Mcqknkexc Gamma Globulins PEP Interpretation HDL Cholesterol Arterial Blood Glucose Arterial Blood Ionized Calcium Urine WBC (Auto) Urine Creatinine Hepatitis C Antibody 11/26/20 11/26/20 11/26/20 05:07 06:22 06:22 WBC 12.3 H RBC 3.52 L Hgb 11.1 L Hct 33.6 L MCV 95 H Lymph % (Auto) [place] % (Auto) Lymph # (Auto) [place] # (Auto) Seg Neutrophils % Seg Neuts % (Manual) Nucleated RBC % Seg Neutrophils # Seg Neutrophils # Man Lymphocytes # (Manual) ABG pH POC ABG pCO2 POC ABG pO2 ABG Hemoglobin ABG Oxyhemoglobin ABG Sodium ABG Potassium ABG Chloride ABG Glucose Carboxyhemoglobin Sodium Potassium 3.3 L Chloride 95.8 L Carbon Dioxide 33 H BUN 35 H Creatinine 1.4 H Glucose 185 H POC Glucose 184 H Lactic Acid Calcium Phosphorus AST ALT CK-MB (CK-2) Rel Index Troponin T 0.036 H D NT-Pro-B Natriuret Pep Serum Total Protein Total Protein 6.2 L Albumin 3.1 L Ogiuh-7-Totznusgo Gamma Globulins PEP Interpretation HDL Cholesterol Arterial Blood Glucose Arterial Blood Ionized Calcium Urine WBC (Auto) Urine Creatinine Hepatitis C Antibody 11/26/20 11/26/20 11/26/20 12:52 17:30 23:14 WBC RBC Hgb Hct MCV Lymph % (Auto) [place] % (Auto) Lymph # (Auto) [place] # (Auto) Seg Neutrophils % Seg Neuts % (Manual) Nucleated RBC % Seg Neutrophils # Seg Neutrophils # Man Lymphocytes # (Manual) ABG pH POC ABG pCO2 POC ABG pO2 ABG Hemoglobin ABG Oxyhemoglobin ABG Sodium ABG Potassium ABG Chloride ABG Glucose Carboxyhemoglobin Sodium Potassium Chloride Carbon Dioxide BUN Creatinine Glucose POC Glucose 170 H 133 H 149 H Lactic Acid Calcium Phosphorus AST ALT CK-MB (CK-2) Rel Index Troponin T NT-Pro-B Natriuret Pep Serum Total Protein Total Protein Albumin Bbjhc-5-Vgvuehpsx Gamma Globulins PEP Interpretation HDL Cholesterol Arterial Blood Glucose Arterial Blood Ionized Calcium Urine WBC (Auto) Urine Creatinine Hepatitis C Antibody 11/27/20 11/27/20 11/27/20 05:35 08:03 12:02 WBC RBC Hgb Hct MCV Lymph % (Auto) [place] % (Auto) Lymph # (Auto) [place] # (Auto) Seg Neutrophils % Seg Neuts % (Manual) Nucleated RBC % Seg Neutrophils # Seg Neutrophils # Man Lymphocytes # (Manual) ABG pH POC ABG pCO2 POC ABG pO2 ABG Hemoglobin ABG Oxyhemoglobin ABG Sodium ABG Potassium ABG Chloride ABG Glucose Carboxyhemoglobin Sodium Potassium Chloride 97.0 L Carbon Dioxide 31 H BUN 41 H Creatinine 1.4 H Glucose 145 H POC Glucose 135 H 139 H Lactic Acid Calcium Phosphorus 2.20 L AST ALT CK-MB (CK-2) Rel Index Troponin T NT-Pro-B Natriuret Pep Serum Total Protein Total Protein Albumin Fwsef-1-Deerdouce Gamma Globulins PEP Interpretation HDL Cholesterol Arterial Blood Glucose Arterial Blood Ionized Calcium Urine WBC (Auto) Urine Creatinine Hepatitis C Antibody 11/27/20 11/28/20 11/28/20 18:41 05:26 06:08 WBC RBC Hgb Hct MCV Lymph % (Auto) [place] % (Auto) Lymph # (Auto) [place] # (Auto) Seg Neutrophils % Seg Neuts % (Manual) Nucleated RBC % Seg Neutrophils # Seg Neutrophils # Man Lymphocytes # (Manual) ABG pH POC ABG pCO2 POC ABG pO2 ABG Hemoglobin ABG Oxyhemoglobin ABG Sodium ABG Potassium ABG Chloride ABG Glucose Carboxyhemoglobin Sodium Potassium Chloride Carbon Dioxide BUN 45 H Creatinine 1.4 H Glucose 135 H POC Glucose 148 H 143 H Lactic Acid Calcium Phosphorus AST ALT CK-MB (CK-2) Rel Index Troponin T NT-Pro-B Natriuret Pep Serum Total Protein Total Protein Albumin Mmojz-1-Idufesxno Gamma Globulins PEP Interpretation HDL Cholesterol Arterial Blood Glucose Arterial Blood Ionized Calcium Urine WBC (Auto) Urine Creatinine Hepatitis C Antibody 11/28/20 11/28/20 11/28/20 11:46 17:31 21:17 WBC RBC Hgb Hct MCV Lymph % (Auto) [place] % (Auto) Lymph # (Auto) [place] # (Auto) Seg Neutrophils % Seg Neuts % (Manual) Nucleated RBC % Seg Neutrophils # Seg Neutrophils # Man Lymphocytes # (Manual) ABG pH POC ABG pCO2 POC ABG pO2 ABG Hemoglobin ABG Oxyhemoglobin ABG Sodium ABG Potassium ABG Chloride ABG Glucose Carboxyhemoglobin Sodium Potassium Chloride Carbon Dioxide BUN Creatinine Glucose POC Glucose 132 H 156 H 122 H Lactic Acid Calcium Phosphorus AST ALT CK-MB (CK-2) Rel Index Troponin T NT-Pro-B Natriuret Pep Serum Total Protein Total Protein Albumin Obbxl-1-Gapvtbtrr Gamma Globulins PEP Interpretation HDL Cholesterol Arterial Blood Glucose Arterial Blood Ionized Calcium Urine WBC (Auto) Urine Creatinine Hepatitis C Antibody 11/29/20 11/29/20 11/29/20 00:06 04:43 05:15 WBC RBC Hgb Hct MCV Lymph % (Auto) [place] % (Auto) Lymph # (Auto) [place] # (Auto) Seg Neutrophils % Seg Neuts % (Manual) Nucleated RBC % Seg Neutrophils # Seg Neutrophils # Man Lymphocytes # (Manual) ABG pH POC ABG pCO2 POC ABG pO2 ABG Hemoglobin ABG Oxyhemoglobin ABG Sodium ABG Potassium ABG Chloride ABG Glucose Carboxyhemoglobin Sodium Potassium Chloride 97.7 L Carbon Dioxide BUN 56 H Creatinine 1.6 H Glucose 132 H POC Glucose 114 H 125 H Lactic Acid Calcium Phosphorus AST ALT CK-MB (CK-2) Rel Index Troponin T NT-Pro-B Natriuret Pep Serum Total Protein Total Protein Albumin Gvesy-9-Ajfgwqlzw Gamma Globulins PEP Interpretation HDL Cholesterol Arterial Blood Glucose Arterial Blood Ionized Calcium Urine WBC (Auto) Urine Creatinine Hepatitis C Antibody 11/29/20 11/29/20 11/30/20 12:09 18:12 04:47 WBC RBC Hgb Hct MCV Lymph % (Auto) [place] % (Auto) Lymph # (Auto) [place] # (Auto) Seg Neutrophils % Seg Neuts % (Manual) Nucleated RBC % Seg Neutrophils # Seg Neutrophils # Man Lymphocytes # (Manual) ABG pH POC ABG pCO2 POC ABG pO2 ABG Hemoglobin ABG Oxyhemoglobin ABG Sodium ABG Potassium ABG Chloride ABG Glucose Carboxyhemoglobin Sodium Potassium Chloride Carbon Dioxide 31 H BUN 59 H Creatinine 1.6 H Glucose 122 H POC Glucose 142 H 132 H Lactic Acid Calcium Phosphorus AST ALT CK-MB (CK-2) Rel Index Troponin T NT-Pro-B Natriuret Pep Serum Total Protein Total Protein Albumin Pasiq-7-Opibiseur Gamma Globulins PEP Interpretation HDL Cholesterol Arterial Blood Glucose Arterial Blood Ionized Calcium Urine WBC (Auto) Urine Creatinine Hepatitis C Antibody 11/30/20 11/30/20 11/30/20 05:45 11:47 18:16 WBC RBC Hgb Hct MCV Lymph % (Auto) [place] % (Auto) Lymph # (Auto) [place] # (Auto) Seg Neutrophils % Seg Neuts % (Manual) Nucleated RBC % Seg Neutrophils # Seg Neutrophils # Man Lymphocytes # (Manual) ABG pH POC ABG pCO2 POC ABG pO2 ABG Hemoglobin ABG Oxyhemoglobin ABG Sodium ABG Potassium ABG Chloride ABG Glucose Carboxyhemoglobin Sodium Potassium Chloride Carbon Dioxide BUN Creatinine Glucose POC Glucose 118 H 123 H 126 H Lactic Acid Calcium Phosphorus AST ALT CK-MB (CK-2) Rel Index Troponin T NT-Pro-B Natriuret Pep Serum Total Protein Total Protein Albumin Lcpjs-7-Zuhqphjph Gamma Globulins PEP Interpretation HDL Cholesterol Arterial Blood Glucose Arterial Blood Ionized Calcium Urine WBC (Auto) Urine Creatinine Hepatitis C Antibody 12/01/20 12/01/20 12/01/20 00:11 04:57 05:41 WBC RBC Hgb Hct MCV Lymph % (Auto) [place] % (Auto) Lymph # (Auto) [place] # (Auto) Seg Neutrophils % Seg Neuts % (Manual) Nucleated RBC % Seg Neutrophils # Seg Neutrophils # Man Lymphocytes # (Manual) ABG pH POC ABG pCO2 POC ABG pO2 ABG Hemoglobin ABG Oxyhemoglobin ABG Sodium ABG Potassium ABG Chloride ABG Glucose Carboxyhemoglobin Sodium Potassium Chloride Carbon Dioxide BUN 52 H Creatinine 1.4 H Glucose 121 H POC Glucose 117 H 120 H Lactic Acid Calcium Phosphorus AST ALT CK-MB (CK-2) Rel Index Troponin T NT-Pro-B Natriuret Pep Serum Total Protein Total Protein Albumin Sgwkl-2-Zwfqqisqp Gamma Globulins PEP Interpretation HDL Cholesterol Arterial Blood Glucose Arterial Blood Ionized Calcium Urine WBC (Auto) Urine Creatinine Hepatitis C Antibody 12/01/20 12/02/20 12/02/20 23:35 06:02 08:09 WBC RBC Hgb Hct MCV Lymph % (Auto) [place] % (Auto) Lymph # (Auto) [place] # (Auto) Seg Neutrophils % Seg Neuts % (Manual) Nucleated RBC % Seg Neutrophils # Seg Neutrophils # Man Lymphocytes # (Manual) ABG pH POC ABG pCO2 POC ABG pO2 ABG Hemoglobin ABG Oxyhemoglobin ABG Sodium ABG Potassium ABG Chloride ABG Glucose Carboxyhemoglobin Sodium Potassium Chloride Carbon Dioxide BUN Creatinine Glucose POC Glucose 117 H 108 H 117 H Lactic Acid Calcium Phosphorus AST ALT CK-MB (CK-2) Rel Index Troponin T NT-Pro-B Natriuret Pep Serum Total Protein Total Protein Albumin [id number] Gamma Globulins PEP Interpretation HDL Cholesterol Arterial Blood Glucose Arterial Blood Ionized Calcium Urine WBC (Auto) Urine Creatinine Hepatitis C Antibody 12/02/20 12/02/20 12/02/20 09:40 11:33 17:34 WBC RBC Hgb Hct MCV Lymph % (Auto) [place] % (Auto) Lymph # (Auto) [place] # (Auto) Seg Neutrophils % Seg Neuts % (Manual) Nucleated RBC % Seg Neutrophils # Seg Neutrophils # Man Lymphocytes # (Manual) ABG pH POC ABG pCO2 POC ABG pO2 ABG Hemoglobin ABG Oxyhemoglobin ABG Sodium ABG Potassium ABG Chloride ABG Glucose Carboxyhemoglobin Sodium Potassium Chloride 97.6 L Carbon Dioxide 35 H BUN 45 H Creatinine Glucose POC Glucose 109 H 124 H Lactic Acid Calcium Phosphorus AST ALT CK-MB (CK-2) Rel Index Troponin T NT-Pro-B Natriuret Pep Serum Total Protein Total Protein Albumin Aigrh-[id number]-[id number] Gamma Globulins PEP Interpretation HDL Cholesterol Arterial Blood Glucose Arterial Blood Ionized Calcium Urine WBC (Auto) Urine Creatinine Hepatitis C Antibody 12/03/20 12/03/20 12/03/20 05:40 07:16 16:46 WBC RBC Hgb Hct MCV Lymph % (Auto) [place] % (Auto) Lymph # (Auto) [place] # (Auto) Seg Neutrophils % Seg Neuts % (Manual) Nucleated RBC % Seg Neutrophils # Seg Neutrophils # Man Lymphocytes # (Manual) ABG pH POC ABG pCO2 POC ABG pO2 ABG Hemoglobin ABG Oxyhemoglobin ABG Sodium ABG Potassium ABG Chloride ABG Glucose Carboxyhemoglobin Sodium Potassium Chloride Carbon Dioxide BUN 44 H Creatinine Glucose 117 H POC Glucose 115 H 106 H Lactic Acid Calcium Phosphorus AST ALT CK-MB (CK-2) Rel Index Troponin T NT-Pro-B Natriuret Pep Serum Total Protein Total Protein Albumin Dhrvn-[id number] Gamma Globulins PEP Interpretation HDL Cholesterol Arterial Blood Glucose Arterial Blood Ionized Calcium Urine WBC (Auto) Urine Creatinine Hepatitis C Antibody 12/03/20 12/04/20 12/04/20 21:55 07:53 11:43 WBC RBC Hgb Hct MCV Lymph % (Auto) [place] % (Auto) Lymph # (Auto) [place] # (Auto) Seg Neutrophils % Seg Neuts % (Manual) Nucleated RBC % Seg Neutrophils # Seg Neutrophils # Man Lymphocytes # (Manual) ABG pH POC ABG pCO2 POC ABG pO2 ABG Hemoglobin ABG Oxyhemoglobin ABG Sodium ABG Potassium ABG Chloride ABG Glucose Carboxyhemoglobin Sodium Potassium Chloride Carbon Dioxide BUN Creatinine Glucose POC Glucose 113 H 110 H 110 H Lactic Acid Calcium Phosphorus AST ALT CK-MB (CK-2) Rel Index Troponin T NT-Pro-B Natriuret Pep Serum Total Protein Total Protein Albumin Mkxtu-[id number] Gamma Globulins PEP Interpretation HDL Cholesterol Arterial Blood Glucose Arterial Blood Ionized Calcium Urine WBC (Auto) Urine Creatinine Hepatitis C Antibody 12/04/20 12/08/20 12/09/20 17:21 09:43 08:43 WBC RBC Hgb Hct MCV Lymph % (Auto) [place] % (Auto) Lymph # (Auto) [place] # (Auto) Seg Neutrophils % Seg Neuts % (Manual) Nucleated RBC % Seg Neutrophils # Seg Neutrophils # Man Lymphocytes # (Manual) ABG pH POC ABG pCO2 POC ABG pO2 ABG Hemoglobin ABG Oxyhemoglobin ABG Sodium ABG Potassium ABG Chloride ABG Glucose Carboxyhemoglobin Sodium Potassium Chloride 96.2 L Carbon Dioxide 39 H BUN 34 H Creatinine Glucose POC Glucose 135 H Lactic Acid Calcium Phosphorus AST ALT CK-MB (CK-2) Rel Index Troponin T NT-Pro-B Natriuret Pep 4253 H Serum Total Protein Total Protein Albumin Gurdd-9-Xfkhyewar Gamma Globulins PEP Interpretation HDL Cholesterol Arterial Blood Glucose Arterial Blood Ionized Calcium Urine WBC (Auto) Urine Creatinine Hepatitis C Antibody 12/10/20 12/12/20 12/15/20 14:53 12:05 10:20 WBC RBC Hgb Hct MCV Lymph % (Auto) [place] % (Auto) Lymph # (Auto) [place] # (Auto) Seg Neutrophils % Seg Neuts % (Manual) Nucleated RBC % Seg Neutrophils # Seg Neutrophils # Man Lymphocytes # (Manual) ABG pH 7.470 H POC ABG pCO2 53.3 H POC ABG pO2 82.4 L ABG Hemoglobin 10.1 L ABG Oxyhemoglobin ABG Sodium 131.3 L ABG Potassium ABG Chloride 89.0 L ABG Glucose 123 H Carboxyhemoglobin Sodium Potassium Chloride 91.9 L 91.9 L Carbon Dioxide 39 H 38 H BUN 46 H 48 H Creatinine Glucose 141 H 142 H POC Glucose Lactic Acid Calcium 8.3 L Phosphorus AST ALT CK-MB (CK-2) Rel Index Troponin T NT-Pro-B Natriuret Pep Serum Total Protein Total Protein Albumin Esotp-4-Cboabocmy Gamma Globulins PEP Interpretation HDL Cholesterol Arterial Blood Glucose 123 H Arterial Blood Ionized Calcium 4.3 L Urine WBC (Auto) Urine Creatinine Hepatitis C Antibody 12/16/20 12/16/20 12/17/20 22:04 22:13 04:28 WBC 13.4 H RBC 3.16 L Hgb 9.7 L Hct 29.2 L MCV Lymph % (Auto) [place] % (Auto) Lymph # (Auto) [place] # (Auto) Seg Neutrophils % Seg Neuts % (Manual) Nucleated RBC % Seg Neutrophils # Seg Neutrophils # Man Lymphocytes # (Manual) ABG pH 7.534 H POC ABG pCO2 50.1 H POC ABG pO2 ABG Hemoglobin 9.6 L ABG Oxyhemoglobin ABG Sodium 130.9 L ABG Potassium 3.1 L ABG Chloride 86.0 L ABG Glucose 133 H Carboxyhemoglobin Sodium Potassium Chloride Carbon Dioxide BUN Creatinine Glucose POC Glucose 137 H Lactic Acid Calcium Phosphorus AST ALT CK-MB (CK-2) Rel Index Troponin T NT-Pro-B Natriuret Pep Serum Total Protein Total Protein Albumin Lsegu-3-[id number] Gamma Globulins PEP Interpretation HDL Cholesterol Arterial Blood Glucose 133 H Arterial Blood Ionized Calcium 4.2 L Urine WBC (Auto) Urine Creatinine Hepatitis C Antibody 12/17/20 12/17/20 12/17/20 04:28 06:13 11:29 WBC RBC Hgb Hct MCV Lymph % (Auto) [place] % (Auto) Lymph # (Auto) [place] # (Auto) Seg Neutrophils % Seg Neuts % (Manual) Nucleated RBC % Seg Neutrophils # Seg Neutrophils # Man Lymphocytes # (Manual) ABG pH 7.517 H POC ABG pCO2 54.0 H POC ABG pO2 33.3 L ABG Hemoglobin 10.1 L ABG Oxyhemoglobin 65.9 L ABG Sodium 131.5 L ABG Potassium 3.2 L ABG Chloride 87.0 L ABG Glucose 116 H Carboxyhemoglobin Sodium 135 L Potassium 3.1 L D Chloride 85.9 L Carbon Dioxide 41 H* BUN 36 H Creatinine Glucose 110 H POC Glucose 110 H Lactic Acid Calcium Phosphorus AST ALT CK-MB (CK-2) Rel Index Troponin T NT-Pro-B Natriuret Pep Serum Total Protein Total Protein 5.1 L Albumin 2.9 L [id number] Gamma Globulins PEP Interpretation HDL Cholesterol Arterial Blood Glucose 116 H Arterial Blood Ionized Calcium 4.3 L Urine WBC (Auto) Urine Creatinine Hepatitis C Antibody 12/17/20 17:25 WBC RBC Hgb Hct MCV Lymph % (Auto) [place] % (Auto) Lymph # (Auto) [place] # (Auto) Seg Neutrophils % Seg Neuts % (Manual) Nucleated RBC % Seg Neutrophils # Seg Neutrophils # Man Lymphocytes # (Manual) ABG pH POC ABG pCO2 POC ABG pO2 ABG Hemoglobin ABG Oxyhemoglobin ABG Sodium ABG Potassium ABG Chloride ABG Glucose Carboxyhemoglobin Sodium Potassium Chloride Carbon Dioxide BUN Creatinine Glucose POC Glucose 159 H Lactic Acid Calcium Phosphorus AST ALT CK-MB (CK-2) Rel Index Troponin T NT-Pro-B Natriuret Pep Serum Total Protein Total Protein Albumin Iclhz-1-Iksswmjli Gamma Globulins PEP Interpretation HDL Cholesterol Arterial Blood Glucose Arterial Blood Ionized Calcium Urine WBC (Auto) Urine Creatinine Hepatitis C Antibody
[2020-12-18] MEDS: ASPIRIN 81 MG TAB CHEW PO SCH (16:50)
[2020-12-18] MEDS: SENNOSIDES/DOCUSATE SODIUM 8.6/50 MG TAB FEEDTUBE SCH ×2 (16:50→22:11)
[2020-12-18] MEDS: carvediloL 12.5 MG TAB PO SCH ×2 (16:50→22:11)
[2020-12-18] MEDS: LANSOPRAZOLE 30 MG SOLUTAB FEEDTUBE SCH (16:53)
[2020-12-18] MEDS: QUEtiapine 25 MG TAB PO SCH ×2 (17:35→22:11)
[2020-12-18] MEDS: TAMSULOSIN 0.4 MG CAP PO SCH (17:35)
[2020-12-19] MEDS: methylPREDNISolone Sod Succinate 125 MG/2 ML INJ IV SCH ×4 (00:50→17:11)
[2020-12-19] MEDS: HEPARIN 5,000 UNIT/1 ML VIAL SUB-Q SCH ×2 (06:53→13:01)
[2020-12-19] MEDS: IPRATROPIUM/ALBUTEROL SULFATE 3 ML AMPUL.NEB IH SCH ×3 (07:03→13:29)
[2020-12-19] MEDS: BUDESONIDE 0.5 MG/2 ML NEBU IH SCH ×2 (07:03→08:09)
--- NOTE | 2020-12-19 08:04 | Progress Note ---
Assessment and Plan Assessment and plan: Patient continues to require high flow nasal cannula oxygen, 25 L/FiO2 50%/O2 sats 100%/ Patient is lethargic, critically ill looking, in mild distress --Acute hypoxic respiratory failure/Requiring intubation 11/21/2020 s/p extubation 11/23/2020, patient was on noninvasive ventilation Currently on high flow nasal cannula oxygen trended down to 20 L/40% FiO2/96% O2 sats Pulmonary following, unable to wean, patient critically ill, awaiting LTAC placement --Uncontrolled hypertension; blood pressures well controlled today Continue current antihypertensives and as needed medications --Acute exacerbation of COPD; Home oxygen dependent. Patient is on 20 L high flow nasal cannula today BiPAP as needed, wean as tolerated Continue nebulizers, tapering dose of IV steroids, supportive care --Acute kidney injury; resolved Due to vasomotor nephropathy Monitor renal function avoid nephrotoxins --Severe pulmonary hypertension; Management per pulmonary, continue supportive care --Acute metabolic encephalopathy 11/21 CT head shows no acute intracranial abnormality, sinus disease Continue supportive care. As per family patient is back to baseline intermittently --NSTEMI type II Presented with [facility] with elevated troponins cardiology patient had a stress test in 2019 which showed no significant ischem ia, Echo; EF 50 to 55% severe pulmonary hypertension moderate mitral stenosis may benefit from [facility]ECTOR for evaluation of mitral valve when patient is stable Medical management per cardiology --History of bladder cancer; Indwelling Paulson in place, supportive care Continue Flomax --Urinary tract infection; Completed antibiotics total 5 days --Dyslipidemia; Continue statin and low-cholesterol diet --Hypernatremia ; resolved Patient was hyponatremia on admission ,probably overcorrection Increase oral intake of water/monitor electrolytes --Severe protein calorie malnutrition ; Hypoalbuminemia ,nutrition supplements Nutrition consult and supportive care --Nutrition; cardiac diet as tolerated --DVT prophylaxis; Subcu heparin, SCDs --GI prophylaxis; Continue Prevacid --Full CODE STATUS; We will closely monitor the patient and adjust the management as needed Consults and recommendations noted and appreciated Plan of care reviewed with the patient's nurse Patient is critically ill poor prognosis Brief history and daily hospital course: 85-year-old male patient with past medical history of COPD on home oxygen, GERD, hypertension, asthma, hyperlipidemia, vasopressin, bladder cancer admitted for acute hypoxic respiratory failure, intubated on 11/21/2020 managed appropriately evaluated by pulmonary critical subsequently extubated on 11/23/2020, today patient is on high flow nasal cannula oxygen, pulmonary critical, cardiology and nephrology following the patient 11/23: Patient was extubated, currently on BiPAP Mild distress, wean as tolerated 11/25/2020; patient is on BiPAP Mild distress, noncommunicative 11/26/2020; patient is on intermittent BiPAP Currently on high flow nasal cannula oxygen 11/27/2020; patient is more alert and awake Will get swallow screen, if normal start pured diet Transfer the patient to [facility] 11/28/2020; patient is on high flow oxygen slightly better than yesterday Able to tolerate mechanical soft diet when the family comes and helps him DC planning, considering LTAC placement 11/29 Still on HFNC oxygen 11/30 Still on HFNC oxygen 12/01 on 35 liters O2 714/21; patient remains on high flow nasal cannula oxygen requiring 25 L/FiO2 35%/O2 sats 96 Wean as tolerated, awaiting LTAC placement Patient is hemodynamically and clinically stable to be transferred out of [facility] to cardiac telemetry or medical floor with remote telemetry today. 12/04/2020; remains on high flow oxygen 25 L/35%/96% O2 sats Wean as tolerated, pending LTAC placement consider PT OT once patient's respiratory status is stable 12/05/2020; patient feels slightly better more alert and awake Responding to simple questions appropriately, titrated the oxygen Today patient is requiring 3 to 4 L of nasal cannula oxygen Significantly improved from yesterday when he needed 25 L Physical therapy evaluation and treatment, home oxygen evaluation prior to discharge 12/06/2020; patient is requiring 10 L of supplemental oxygen today Wean as tolerated PT OT evaluation recommendations noted, Possible discharge in 1 to 2 days if stable Patient's son Ana Morejon [phone] at the bedside Discussed in detail patient's condition, tests and reports Discharge planning, answered all his questions 12/07/2020; today patient is requiring high flow nasal cannula oxygen, 25 L In mild distress, wean as tolerated to 3 to 4 L nasal cannula DC planning per case management, possible home with home health when patient is medically stable 12/08/2020 today patient is requiring high flow nasal cannula oxygen, but slightly improved patient is at 15 L O2 PT and OT recommend home health PT OT, wean patient off high flow oxygen Titrate to 3 to 4 L nasal cannula, possible discharge in 1 to 2 days if stable And cleared by pulmonary 12/09/2020; patient continues to require high flow nasal cannula oxygen between 15 to 20 L Management per pulmonary. Wean as tolerated I spoke with bilingual [place] speaking granddaughter at the bedside, answered all her questions 12/10/2020; no change clinically, continues to require 20 to 30 L of high flow nasal cannula oxygen If no improvement we will consider transferring to IMCU or ICU for close observation after discussing with pulmonary. 12/11/2020 I spoke to bilingual [place] speaking patient's son Ana [facility] [phone] And discussed in detail patient's condition, treatment plan, poor prognosis, plans of Transferring to [facility] when bed is available, and the patient is requiring high flow nasal cannula oxygen He verbalized understanding, full CODE STATUS at this point. Answered all his questions. 12/12/2020; patient is more alert and awake, feels slightly better still remains on high flow oxygen however titrating down Closely monitor, awaiting LTAC placement at [facility] , discussed with New Zealander- speaking family member at the bedside today Disposition; wean high flow oxygen as tolerated Discharge when patient is stable Follow pulmonary recommendations Resume service; 12/16/2020; patient remains on high flow oxygen 20 L, unable to wean Patient is lethargic and critically ill looking I spoke with patient's insurance company physician Librado, at [phone] Casarez informed that patient is not a candidate for LTAC, and insurance cannot approve it He gave other options of hospice/palliative care. We have addressed palliative care and CODE STATUS in the past with the family We will readdress again today tomorrow, and inquired the goals of treatment the family is interested in and the discharge planning. 12/17/2020; I spoke with patient's son I called patient's son Katie Hayes at [phone] and discussed patient's condition, poor prognosis, Options of hospice, would like to know more about hospice. Hospice consult placed CODE STATUS discussed with them, full code at this point 12/18/2020; family agreed for hospice evaluation which is pending Patient remains on high flow nasal cannula oxygen 25 L/45%/98% O2 sats Follow hospice evaluation and recommendations Possible discharge to hospice house versus home hospice 12/19/2020: Hospitalist Physical - Constitutional Vitals: Temp Pulse Resp BP Pulse Ox 98.5 F 67 36 H 155/74 99 12/19/20 07:51 12/19/20 07:51 12/19/20 07:51 12/19/20 07:51 12/19/20 06:04 General appearance: Present: mild distress, well-nourished, other (Noncommunicative/lethargic) HEART Score - HEART Score Troponin: Troponin T 0.021 ng/mL (0.00-0.029) 11/29/20 04:43 Results - Labs CBC & Chem 7: 12/17/20 04:28 12/17/20 04:28 Labs: Laboratory Last Values WBC 13.4 K/mm3 (4.5-11.0) H 12/17/20 04:28 RBC 3.16 M/mm3 (3.65-5.03) L 12/17/20 04:28 Hgb 9.7 gm/dl (11.8-15.2) L 12/17/20 04:28 Hct 29.2 % (35.5-45.6) L 12/17/20 04:28 MCV 92 fl (84-94) 12/17/20 04:28 MCH 31 pg (28-32) 12/17/20 04:28 MCHC 33 % (32-34) 12/17/20 04:28 RDW 14.6 % (13.2-15.2) 12/17/20 04:28 Plt Count 153 K/mm3 (140-440) 12/17/20 04:28 Lymph % (Auto) 16.1 % (13.4-35.0) 11/23/20 10:00 [place] % (Auto) 15.0 % (0.0-7.3) H 11/23/20 10:00 Eos % (Auto) 1.0 % (0.0-4.3) 11/23/20 10:00 Baso % (Auto) 0.5 % (0.0-1.8) 11/23/20 10:00 Lymph # (Auto) 1.6 K/mm3 (1.2-5.4) 11/23/20 10:00 [place] # (Auto) 1.5 K/mm3 (0.0-0.8) H 11/23/20 10:00 Eos # (Auto) 0.1 K/mm3 (0.0-0.4) 11/23/20 10:00 Baso # (Auto) 0.1 K/mm3 (0.0-0.1) 11/23/20 10:00 Add Manual Diff Complete 11/25/20 08:18 Total Counted 100 11/25/20 08:18 Seg Neutrophils % Coffee Grower 11/25/20 08:18 Seg Neuts % (Manual) 98.0 % (40.0-70.0) H 11/25/20 08:18 Monocytes % (Manual) 2.0 % (0.0-7.3) 11/25/20 08:18 Nucleated RBC % 1.0 % (0.0-0.9) H 11/25/20 08:18 Seg Neutrophils # 6.6 K/mm3 (1.8-7.7) 11/23/20 10:00 Seg Neutrophils # Man 12.9 K/mm3 (1.8-7.7) H 11/25/20 08:18 Band Neutrophils # 0.0 K/mm3 11/25/20 08:18 Lymphocytes # (Manual) 0.0 K/mm3 (1.2-5.4) L 11/25/20 08:18 Abs React Lymphs (Man) 0.0 K/mm3 11/25/20 08:18 Monocytes # (Manual) 0.3 K/mm3 (0.0-0.8) 11/25/20 08:18 Eosinophils # (Manual) 0.0 K/mm3 (0.0-0.4) 11/25/20 08:18 Basophils # (Manual) 0.0 K/mm3 (0.0-0.1) 11/25/20 08:18 Metamyelocytes # 0.0 K/mm3 11/25/20 08:18 Myelocytes # 0.0 K/mm3 11/25/20 08:18 Promyelocytes # 43.8 K/mm3 11/25/20 08:18 Blast Cells # 0.0 K/mm3 11/25/20 08:18 WBC Morphology Not Reportable 11/25/20 08:18 Hypersegmented Neuts Not Reportable 11/25/20 08:18 Hyposegmented Neuts Not Reportable 11/25/20 08:18 Hypogranular Neuts Not Reportable 11/25/20 08:18 Smudge Cells Not Reportable 11/25/20 08:18 Toxic Granulation Few 11/25/20 08:18 Toxic Vacuolation Not Reportable 11/25/20 08:18 Dohle Bodies Not Reportable 11/25/20 08:18 Pelger-Huet Anomaly Not Reportable 11/25/20 08:18 Liang Rods Not Reportable 11/25/20 08:18 Platelet Estimate Consistent w auto 11/25/20 08:18 Clumped Platelets Not Reportable 11/25/20 08:18 Plt Clumps, EDTA Not Reportable 11/25/20 08:18 Large Platelets Not Reportable 11/25/20 08:18 Giant Platelets Not Reportable 11/25/20 08:18 Platelet Satelliting Not Reportable 11/25/20 08:18 Plt Morphology Comment Not Reportable 11/25/20 08:18 RBC Morphology Not Reportable 11/25/20 08:18 Dimorphic RBCs Not Reportable 11/25/20 08:18 Polychromasia Not Reportable 11/25/20 08:18 Hypochromasia 1+ 11/25/20 08:18 Poikilocytosis Not Reportable 11/25/20 08:18 Anisocytosis Not Reportable 11/25/20 08:18 Microcytosis Not Reportable 11/25/20 08:18 Macrocytosis Not Reportable 11/25/20 08:18 Spherocytes Not Reportable 11/25/20 08:18 Pappenheimer Bodies Not Reportable 11/25/20 08:18 Sickle Cells Not Reportable 11/25/20 08:18 Target Cells 1+ 11/25/20 08:18 Tear Drop Cells Not Reportable 11/25/20 08:18 Ovalocytes Not Reportable 11/25/20 08:18 Helmet Cells Not Reportable 11/25/20 08:18 [place] Bodies Not Reportable 11/25/20 08:18 [place] Rings Not Reportable 11/25/20 08:18 Deep Cells Not Reportable 11/25/20 08:18 Bite Cells Not Reportable 11/25/20 08:18 Crenated Cell Not Reportable 11/25/20 08:18 Elliptocytes Not Reportable 11/25/20 08:18 Acanthocytes (Spur) Not Reportable 11/25/20 08:18 Rouleaux Not Reportable 11/25/20 08:18 Hemoglobin C Crystals Not Reportable 11/25/20 08:18 Schistocytes Not Reportable 11/25/20 08:18 Malaria parasites Not Reportable 11/25/20 08:18 Fuad Bodies Not Reportable 11/25/20 08:18 Hem Pathologist Commnt No 11/25/20 08:18 PT 13.5 Sec. (12.2-14.9) 11/21/20 20:50 INR 0.98 (0.87-1.13) 11/21/20 20:50 APTT 32.1 Sec. (24.2-36.6) 11/21/20 20:50 ABG pH 7.517 (7.320-7.450) H 12/17/20 06:13 POC ABG pCO2 54.0 mmHg (32.0-48.0) H 12/17/20 06:13 POC ABG pO2 33.3 mmHg (83-108) L 12/17/20 06:13 POC ABG HCO3 42.8 12/17/20 06:13 ABG O2 Saturation 66.7 (0-100) 12/17/20 06:13 POC ABG Base Excess 17.7 12/17/20 06:13 ABG Hemoglobin 10.1 (12.0-17.5) L 12/17/20 06:13 ABG Oxyhemoglobin 65.9 (94-98) L 12/17/20 06:13 ABG Methemoglobin 0.3 (0.0-1.5) 12/17/20 06:13 ABG Sodium 131.5 mmol/L (136.0-145.0) L 12/17/20 06:13 ABG Potassium 3.2 mmol/L (3.40-4.50) L 12/17/20 06:13 ABG Chloride 87.0 mmol/L (98-107) L 12/17/20 06:13 ABG Glucose 116 mg/dL (65-95) H 12/17/20 06:13 Carboxyhemoglobin 0.9 (0.5-1.5) 12/17/20 06:13 FiO2 % 60.0 12/17/20 06:13 Sodium 135 mmol/L (137-145) L 12/17/20 04:28 Potassium 3.1 mmol/L (3.6-5.0) L D 12/17/20 04:28 Chloride 85.9 mmol/L (98-107) L 12/17/20 04:28 Carbon Dioxide 41 mmol/L (22-30) H* 12/17/20 04:28 Anion Gap 11 mmol/L 12/17/20 04:28 BUN 36 mg/dL (9-20) H 12/17/20 04:28 Creatinine 1.1 mg/dL (0.8-1.3) 12/17/20 04:28 Estimated GFR > 60 ml/min 12/17/20 04:28 BUN/Creatinine Ratio 33 % 12/17/20 04:28 Glucose 110 mg/dL (75-100) H 12/17/20 04:28 POC Glucose 144 mg/dL (70-105) H 12/19/20 06:01 Lactic Acid 0.60 mmol/L (0.7-2.0) L 11/24/20 09:58 Calcium 8.6 mg/dL (8.4-10.2) 12/17/20 04:28 Phosphorus 3.20 mg/dL (2.5-4.5) 12/17/20 04:28 Magnesium 2.10 mg/dL (1.7-2.3) 12/17/20 04:28 Total Bilirubin 0.90 mg/dL (0.1-1.2) 12/17/20 04:28 AST 27 units/L (5-40) 12/17/20 04:28 ALT 26 units/L (7-56) 12/17/20 04:28 Alkaline Phosphatase 55 units/L (35-129) 12/17/20 04:28 Total Creatine Kinase 132 units/L (55-170) 11/22/20 10:20 CK-MB (CK-2) 3.3 ng/mL (0.0-4.0) 11/22/20 10:20 CK-MB (CK-2) Rel Index 2.5 (0-4) 11/22/20 10:20 Troponin T 0.021 ng/mL (0.00-0.029) 11/29/20 04:43 NT-Pro-B Natriuret Pep 4253 pg/mL (0-900) H 12/09/20 08:43 Serum Total Protein 5.3 g/dL (6.1-8.1) L 11/23/20 10:00 Total Protein 5.1 g/dL (6.3-8.2) L 12/17/20 04:28 Albumin 2.9 g/dL (3.9-5) L 12/17/20 04:28 Albumin/Globulin Ratio 1.3 % 12/17/20 04:28 Dtjjx-1-Kmunwasym 0.4 g/dL (0.2-0.3) H 11/23/20 10:00 Qwkda-3-Obkfexues 0.8 g/dL (0.5-0.9) 11/23/20 10:00 Beta Globulins 0.3 g/dL (0.2-0.5) 11/23/20 10:00 Gamma Globulins 0.7 g/dL (0.8-1.7) L 11/23/20 10:00 Abnorm Protein Band 1 see below 11/23/20 10:00 PEP Interpretation see below H 11/23/20 10:00 Triglycerides 84 mg/dL (2-149) 11/21/20 20:50 Cholesterol 125 mg/dL (50-199) 11/21/20 20:50 LDL Cholesterol Direct 57 mg/dL (50-130) 11/21/20 20:50 HDL Cholesterol 60 mg/dL (40-59) H 11/21/20 20:50 Cholesterol/HDL Ratio 2.08 % 11/21/20 20:50 TSH 1.290 mlU/mL (0.270-4.200) 11/21/20 20:50 Free T4 1.18 ng/dL (0.76-1.46) 11/21/20 20:50 Arterial Blood Glucose 116 mg/dL (65-95) H 12/17/20 06:13 Arterial Blood Ionized Calcium 4.3 mg/dL (4.6-5.3) L 12/17/20 06:13 Urine Color Yellow (Yellow) 11/22/20 05:00 Urine Turbidity Slightly-cloudy (Clear) 11/22/20 05:00 Urine pH 5.0 (5.0-7.0) 11/22/20 05:00 Ur Specific [place] 1.016 (1.003-1.030) 11/22/20 05:00 Urine Protein 30 mg/dl mg/dL (Negative) 11/22/20 05:00 Urine Glucose (UA) Neg mg/dL (Negative) 11/22/20 05:00 Urine Ketones Neg mg/dL (Negative) 11/22/20 05:00 Urine Blood Lg (Negative) 11/22/20 05:00 Urine Nitrite Neg (Negative) 11/22/20 05:00 Urine Bilirubin Neg (Negative) 11/22/20 05:00 Urine Urobilinogen < 2.0 mg/dL (<2.0) 11/22/20 05:00 Ur Leukocyte Esterase Tr (Negative) 11/22/20 05:00 Urine WBC (Auto) 33.0 /HPF (0.0-6.0) H 11/22/20 05:00 Urine RBC (Auto) 49.0 /HPF (0.0-6.0) 11/22/20 05:00 U Epithel Cells (Auto) 1.0 /HPF (0-13.0) 11/22/20 05:00 Hyaline Casts 4 /LPF 11/22/20 05:00 Urine Mucus 1+ /HPF 11/22/20 05:00 Urine Eosinophils None seen (None Seen) 11/24/20 17:55 Urine Creatinine 158.2 mg/dL (0.1-20.0) H 11/22/20 00:11 Urine Sodium 39 mmol/L 11/22/20 00:11 Fraction Sodium Excret 0.3 11/22/20 00:11 Urine Opiates Screen Presumptive negative 11/22/20 00:11 Urine Methadone Screen Presumptive negative 11/22/20 00:11 Ur Barbiturates Screen Presumptive negative 11/22/20 00:11 Ur Phencyclidine Scrn Presumptive negative 11/22/20 00:11 Ur Amphetamines Screen Presumptive negative 11/22/20 00:11 U Benzodiazepines Scrn Presumptive negative 11/22/20 00:11 Urine Cocaine Screen Presumptive negative 11/22/20 00:11 U Marijuana (THC) Screen Presumptive negative 11/22/20 00:11 Drugs of Abuse Note Disclamer 11/22/20 00:11 Plasma/Serum Alcohol < 0.01 % (0-0.07) 11/21/20 20:50 Proteinase 3 (PR3) Ab <1.0 AI (<1.0) 11/22/20 16:00 Myeloperoxidase Ab <1.0 AI (<1.0) 11/22/20 16:00 Double Strand DNA Ab 1 IU/mL (<=4) 11/22/20 16:00 Complement C3 93 mg/dL () 11/22/20 16:00 Complement C4 25 mg/dL () 11/22/20 16:00 Coronavirus (PCR) Negative (Negative) 11/23/20 09:30 Hepatitis A IgM Ab Non-reactive (NonReactive) 11/22/20 16:00 Hep Bs Antigen Non-reactive (Negative) 11/22/20 16:00 Hep B Core IgM Ab Non-reactive (NonReactive) 11/22/20 16:00 Hepatitis C Antibody Reactive (NonReactive) A 11/22/20 16:00 Paulson/IV: Voiding Method Condom Catheter Active Medications - Current Medications Current Medications: Generic Name Dose Route Start Last Admin Trade Name Freq PRN Reason Stop Dose Admin Acetaminophen 650 mg 11/23/20 15:29 12/15/20 17:58 Acetaminophen 325 Mg Tab PO 650 mg Q4H PRN Administration Pain, Mild (1-3) Albuterol 2.5 mg 11/22/20 01:19 Albuterol 2.5 Mg/3 Ml Nebu IH Q4HRT PRN Shortness Of Breath Albuterol/Ipratropium 1 ampul 12/11/20 08:00 12/19/20 07:03 Ipratropium/Albuterol Sulfate 3 Ml Ampul.Neb IH Not Given TIDRT TERESA Lipase/Protease/Amylase 1 each 11/22/20 09:07 Lipase 10,500/Protease 25,000/Amylase 43,750 (Units) Dr Ger SAHATUBE PRN PRN For Clogged Feeding Tube Aspirin 81 mg 11/23/20 10:00 12/18/20 16:50 Aspirin 81 Mg Tab Chew PO 81 mg QDAY TERESA Administration Atorvastatin Calcium 40 mg 11/22/20 22:00 12/18/20 22:11 Atorvastatin 40 Mg Tab PO 40 mg QHS TERESA Administration Budesonide 0.5 mg 11/24/20 14:55 12/19/20 07:03 Budesonide 0.5 Mg/2 Ml Nebu IH Not Given Q12HRT TERESA Carvedilol 12.5 mg 12/03/20 22:00 12/18/20 22:11 Carvedilol 12.5 Mg Tab PO 12.5 mg BID TERESA Administration Heparin Sodium (Porcine) 5,000 unit 11/22/20 06:00 12/19/20 06:53 Heparin 5,000 Unit/1 Ml Vial SUB-Q 5,000 unit Q8HR TERESA Administration Hydralazine HCl 10 mg 11/22/20 01:24 12/17/20 01:10 Hydralazine 20 Mg/1 Ml Inj IV 10 mg Q6H PRN Administration Blood Pressure Lactulose 20 gm 12/13/20 17:02 12/13/20 17:10 Lactulose 20 Gm/30 Ml Oral Liqd PO 20 gm QDAY PRN Administration Constipation Lansoprazole 30 mg 11/28/20 10:00 12/18/20 16:53 Lansoprazole 30 Mg Solutab FEEDTUBE 30 mg QDAY TERESA Administration Methylprednisolone Sodium Succinate 60 mg 12/08/20 12:00 12/19/20 06:53 Methylprednisolone Sod Succinate 125 Mg/2 Ml Inj IV 60 mg Q6HR TERESA Administration Nitroglycerin 0.4 mg 11/22/20 01:25 12/06/20 05:22 Nitroglycerin 0.4 Mg Tab Subl SL 0.4 mg Q5M PRN Administration Chest Pain Ondansetron HCl 4 mg 11/22/20 01:19 Ondansetron 4 Mg/2 Ml Inj IV Q8H PRN Nausea And Vomiting Oxycodone/Acetaminophen 1 tab 12/16/20 11:00 12/16/20 14:18 Oxycodone /Acetaminophen 5-325mg Tab PO 1 tab Q6H PRN Administration Pain, Moderate (4-6) Quetiapine Fumarate 25 mg 11/27/20 12:00 12/18/20 22:11 Quetiapine 25 Mg Tab PO 25 mg BID TERESA Administration Senna/Docusate Sodium 1 tab 11/22/20 10:00 12/18/20 22:11 Sennosides/Docusate Sodium 8.6/50 Mg Tab FEEDTUBE 1 tab BID TERESA Administration Simple Syrup 15 ml 11/22/20 09:07 Simple Syrup 15 Ml FEEDTUBE PRN PRN Hypoglycemia Simple Syrup 30 ml 11/22/20 09:07 Simple Syrup 15 Ml FEEDTUBE PRN PRN Hypoglycemia Sodium Bicarbonate 325 mg 11/22/20 09:07 Sodium Bicarbonate 325 Mg Tab FEEDTUBE PRN PRN For Clogged Feeding Tube Sodium Chloride 10 ml 11/22/20 10:00 12/18/20 22:13 Sodium Chloride 0.9% 10 Ml Flush Syringe IV 10 ml BID TERESA Administration Sodium Chloride 10 ml 11/22/20 01:19 12/18/20 06:26 Sodium Chloride 0.9% 10 Ml Flush Syringe IV 10 ml PRN PRN Administration LINE FLUSH Tamsulosin HCl 0.4 mg 11/22/20 10:00 12/18/20 17:35 Tamsulosin 0.4 Mg Cap PO 0.4 mg DAILY TERESA Administration Nutrition/Malnutrition Assess - Dietary Evaluation Nutrition/Malnutrition Findings: Nutrition Notes Start: 11/22/20 08:53 Freq: Status: Active Protocol: Document 12/18/20 12:54 MK (Rec: 12/18/20 12:57 MK [id number]) Nutrition Notes Initial or Follow up Brief Note Current Diagnosis COPD,Hypertension,Respiratory Failure Other Pertinent Diagnosis Encephalopathy, UTI, pulmonary HTN Current Diet Mech soft Height 5 ft 3 in Weight 73.4 kg [place] Body Weight (kg) 56.36 BMI 28.6 Subjective/Other Information Pt continues to eat poorly. He had 2 small soups for breakfast (60kcal). Pt needs appetite stimulant or alternative method of nutrition. Percent of energy/protein needs met: Negligible #1 Nutrition Diagnosis Inadequate oral intake Diagnosis Progress(for reassessment Continues documentation) Is patient on ventilator? No Is Patient Ambulatory and/or Out of Bed No REE-(Dooly-St. Jeor-confined to bed) [phone] Calculation Used for Recommendations Dooly-St Jeor Additional Notes Pro needs 1-1.2g/k-87g/ day Fluid needs 1ml/kcal Nutrition Intervention Follow-Up By: 12/23/20 Additional Comments F/u: intakes, POC
[2020-12-19] MEDS: TAMSULOSIN 0.4 MG CAP PO SCH (09:46)
[2020-12-19] MEDS: SENNOSIDES/DOCUSATE SODIUM 8.6/50 MG TAB FEEDTUBE SCH (09:46)
[2020-12-19] MEDS: LANSOPRAZOLE 30 MG SOLUTAB FEEDTUBE SCH (09:46)
[2020-12-19] MEDS: carvediloL 12.5 MG TAB PO SCH (09:46)
[2020-12-19] MEDS: QUEtiapine 25 MG TAB PO SCH (09:46)
[2020-12-19] MEDS: ASPIRIN 81 MG TAB CHEW PO SCH (09:46)
--- NOTE | 2020-12-19 10:41 | Discharge Summary ---
Providers - Providers Date of Admission: 11/22/20 00:40 Date of discharge: 12/19/20 Attending physician: BARBARA FITCH MD 11/21/20 21:45 Consult to Physician [CONS] Stat Comment: Dr. Richardson spoke with Dr. Ayala @ [phone] Consulting Provider: ANITA AYALA Physician Instructions: Reason For Exam: Hyperkalemia 11/22/20 Consult to Cardiac Rehabilitation [CONS] Routine Reason For Exam: Phase I 11/22/20 00:38 Consult to Dietitian/Nutrition [CONS] Routine Physician Instructions: Reason For Exam: Reason for Consult: Evaluate nutritional intake 11/22/20 01:19 Consult to Physician [CONS] Routine Comment: Consulting Provider: LUISITO PARKINSON Physician Instructions: Reason For Exam: Unresponsiveness 11/22/20 07:53 Consult to Dietitian/Nutrition [CONS] Routine Physician Instructions: Reason For Exam: Reason for Consult: Write/Manage Tube Feeding 11/25/20 09:35 Consult to PICC Line RN [CONS] Urgent Reason For Exam: Peripheral IV placement Type Line:: Midline 11/28/20 09:54 Occupational Therapy Evaluate and Treat [CONS] Routine Comment: Reason For Exam: Evaluate and treat/DC needs Physical Therapy Evaluation and Treat [CONS] Routine Comment: Reason For Exam: Evaluate and treat DC needs/ Primary care physician: DIRECT SERVICE WORKER Hospitalization Reason for admission: Acute hypoxic respiratory failure Condition: Fair Hospital course: Patient continues to require high flow nasal cannula oxygen, 25 L/FiO2 50%/O2 sats 100%/ Patient is lethargic, critically ill looking, in mild distress --Acute hypoxic respiratory failure/Requiring intubation 11/21/2020 s/p extubation 11/23/2020, patient was on noninvasive ventilation Currently on high flow nasal cannula oxygen trended down to 20 L/40% FiO2/96% O2 sats Pulmonary following, unable to wean, patient critically ill, awaiting LTAC placement --Uncontrolled hypertension; blood pressures well controlled today Continue current antihypertensives and as needed medications --Acute exacerbation of COPD; Home oxygen dependent. Patient is on 20 L high flow nasal cannula today BiPAP as needed, wean as tolerated Continue nebulizers, tapering dose of IV steroids, supportive care --Acute kidney injury; resolved Due to vasomotor nephropathy Monitor renal function avoid nephrotoxins --Severe pulmonary hypertension; Management per pulmonary, continue supportive care --Acute metabolic encephalopathy 11/21 CT head shows no acute intracranial abnormality, sinus disease Continue supportive care. As per family patient is back to baseline intermittently --NSTEMI type II Presented with [facility] with elevated troponins cardiology patient had a stress test in 2019 which showed no significant ischemia, Echo; EF 50 to 55% severe pulmonary hypertension moderate mitral stenosis may benefit from HECTOR for evaluation of mitral valve when patient is stable Medical management per cardiology --History of bladder cancer; Indwelling Paulson in place, supportive care Continue Flomax --Urinary tract infection; Completed antibiotics total 5 days --Dyslipidemia; Continue statin and low-cholesterol diet --Hypernatremia ; resolved Patient was hyponatremia on admission ,probably overcorrection Increase oral intake of water/monitor electrolytes --Severe protein calorie malnutrition ; Hypoalbuminemia ,nutrition supplements Nutrition consult and supportive care --Nutrition; cardiac diet as tolerated --DVT prophylaxis; Subcu heparin, SCDs --GI prophylaxis; Continue Prevacid --Full CODE STATUS; PT OT evaluation noted and appreciated Recommend home health PT and OT at discharge Today patient is requiring 15 L nasal cannula oxygen Will wean slowly to 2 to 4 L and plan discharge We will closely monitor the patient and adjust the management as needed Consults and recommendations noted and appreciated Plan of care reviewed with the patient's nurse Patient is critically ill poor prognosis Brief history and daily hospital course: 85-year-old male patient with past medical history of COPD on home oxygen, GERD, hypertension, asthma, hyperlipidemia, vasopressin, bladder cancer admitted for acute hypoxic respiratory failure, intubated on 11/21/2020 managed appropriately evaluated by pulmonary critical subsequently extubated on 11/23/2020, today patient is on high flow nasal cannula oxygen, pulmonary critical, cardiology and nephrology following the patient 11/23: Patient was extubated, currently on BiPAP Mild distress, wean as tolerated 11/25/2020; patient is on BiPAP Mild distress, noncommunicative 11/26/2020; patient is on intermittent BiPAP Currently on high flow nasal cannula oxygen 11/27/2020; patient is more alert and awake Will get swallow screen, if normal start pured diet Transfer the patient to [facility] 11/28/2020; patient is on high flow oxygen slightly better than yesterday Able to tolerate mechanical soft diet when the family comes and helps him DC planning, considering LTAC placement 11/29 Still on HFNC oxygen 11/30 Still on HFNC oxygen 12/01 on 35 liters O2 714/21; patient remains on high flow nasal cannula oxygen requiring 25 L/FiO2 35%/O2 sats 96 Wean as tolerated, awaiting LTAC placement Patient is hemodynamically and clinically stable to be transferred out of [facility] to cardiac telemetry or medical floor with remote telemetry today. 12/04/2020; remains on high flow oxygen 25 L/35%/96% O2 sats Wean as tolerated, pending LTAC placement consider PT OT once patient's respiratory status is stable 12/05/2020; patient feels slightly better more alert and awake Responding to simple questions appropriately, titrated the oxygen Today patient is requiring 3 to 4 L of nasal cannula oxygen Significantly improved from yesterday when he needed 25 L Physical therapy evaluation and treatment, home oxygen evaluation prior to discharge 12/06/2020; patient is requiring 10 L of supplemental oxygen today Wean as tolerated PT OT evaluation recommendations noted, Possible discharge in 1 to 2 days if stable Patient's son Ana Miller [phone] at the bedside Discussed in detail patient's condition, tests and reports Discharge planning, answered all his questions 12/07/2020; today patient is requiring high flow nasal cannula oxygen, 25 L In mild distress, wean as tolerated to 3 to 4 L nasal cannula DC planning per case management, possible home with home health when patient is medically stable 12/08/2020 today patient is requiring high flow nasal cannula oxygen, but slightly improved patient is at 15 L O2 PT and OT recommend home health PT OT, wean patient off high flow oxygen Titrate to 3 to 4 L nasal cannula, possible discharge in 1 to 2 days if stable And cleared by pulmonary 12/09/2020; patient continues to require high flow nasal cannula oxygen between 15 to 20 L Management per pulmonary. Wean as tolerated I spoke with bilingual Singaporean speaking granddaughter at the bedside, answered all her questions 12/10/2020; no change clinically, continues to require 20 to 30 L of high flow nasal cannula oxygen If no improvement we will consider transferring to IMCU or ICU for close observation after discussing with pulmonary. 12/11/2020 I spoke to bilingual Singaporean speaking patient's son Ana Morejon [phone] And discussed in detail patient's condition, treatment plan, poor prognosis, plans of Transferring to [facility] when bed is available, and the patient is requiring high flow nasal cannula oxygen He verbalized understanding, full CODE STATUS at this point. Answered all his questions. 12/12/2020; patient is more alert and awake, feels slightly better still remains on high flow oxygen however titrating down Closely monitor, awaiting LTAC placement at [place] , discussed with Singaporean- speaking family member at the bedside today Disposition; wean high flow oxygen as tolerated Discharge when patient is stable Follow pulmonary recommendations Resume service; 12/16/2020; patient remains on high flow oxygen 20 L, unable to wean Patient is lethargic and critically ill looking I spoke with patient's insurance company physician Librado, at [phone] Casarez informed that patient is not a candidate for LTAC, and insurance cannot approve it He gave other options of hospice/palliative care. We have addressed palliative care and CODE STATUS in the past with the family We will readdress again today tomorrow, and inquired the goals of treatment the family is interested in and the discharge planning. 12/17/2020; I spoke with patient's son I called patient's son Katie Hayes at [phone] and discussed patient's condition, poor prognosis, Options of hospice, would like to know more about hospice. Hospice consult placed CODE STATUS discussed with them, full code at this point 12/18/2020; family agreed for hospice evaluation which is pending Patient remains on high flow nasal cannula oxygen 25 L/45%/98% O2 sats Follow hospice evaluation and recommendations Possible discharge to hospice house versus home hospice 12/19/2020: Hospice arrangements have been made. patient will be discharged today History Interval history: Patient continues to require high flow nasal cannula oxygen 25/40/99% I have seen and examined the patient at the bedside this morning Patient's chart and medications reviewed Patient is on high flow nasal cannula oxygen 25 L/40% FiO2/99% O2 sats Patient is lethargic, in mild distress Vital signs reviewed Disposition: DC-30 STILL A PATIENT Final Discharge Diagnosis (Prints w/discharge instructions): Acute hypoxic respi ratory failure Time spent for discharge: 35 Core Measure Documentation - Palliative Care Palliative Care/ Comfort Measures: Hospice Care - Core Measures Any of the following diagnoses?: none Exam - Constitutional Vitals: Temp Pulse Resp BP Pulse Ox 98.5 F 66 22 155/74 98 12/19/20 07:51 12/19/20 09:46 12/19/20 08:30 12/19/20 09:46 12/19/20 08:10 Plan Follow up with: PRIMARY CARE, [Primary Care Provider] - 7 Days
--- NOTE | 2020-12-19 12:03 | Progress Note ---
Assessment and Plan 85 y/o maltese male admitted with acute hypoxic respiratory failure. 12/19/20: Being discharged to home with hospice. Agree with this. Will sign off. 12/18/20: Wean FiO2 as tolerated for sats >88%. Per IMS note patient brother interested in hospice. Not unreasonable. Continue steroids. Guarded prognosis. 12/17/20: Hold on lasix today. Continue steroids but start weaning likely tomorrow. Alkalemia is secondary to lasix and steroids, likely more so from the lasix. Continue supportive care. Will continue to follow. 12/16/20: Lasix again today. Will order BMP. Reviewed CM note in regards to PEER to PEER need. I did the last one. I'm not sure what they are looking for as this is now the second round of the patient requiring high dose IV steroids and HFNC. If he goes home, he will decompensate and could end up back on mechanical ventilation or worse, . This was explained in the last Peer to Peer. Continue high dose steroids and wean as tolerated. Guarded prognosis. 12/15/20: Lasix 40 today. Continue high dose steroids. Wean FiO2 and Flow for sats >88%. Ok with sitting up in chair if patient will cooperate. PT/OT. Hopeful insurer will approve LTACH soon as patient really would benefit from this. 12/12/20: Lasix again today. Ordered labs for today. Continue to wean FiO2 for sats >88%. Follow up with CM. Prognosis still remains guarded but more promising now that oxygen requirement is coming down. 12/11/20: Lasix again today. Labs stable on yesterday. Continues to have desats at night. Hesitant to order positive pressure at night as this could make the patient more agitated and worsen oxygenation but may consider if the same thing happens again tonight. Follow up with CM on LTACH as he definitely needs it. Will continue to follow. Guarded prognosis. 12/10/20: BNP elevated, lasix again today. Ordered labs for this am, will review once back. May need to increase night time seroquel as night nurse documented patient taking off cannula constantly but easy redirection. Appeal done by CM. Continue High dose steroids. Guarded prognosis. 12/09/20: Continue High Dose IV steroids. Follow up BNP. Today will give lasix 40mg IV x1. Please ask CM to appeal LTACH denial as patient will need it. After speaking with RT, patient becomes very agitated and frustrated secondary to language barrier and will remove supplemental O2 requiring him to be put on higher numbers to recover. Suggest using language line more often or calling daughter who is in the medical profession and speaks very good nigerien. Will continue to follow. 12/08/20: with change in oxygen requirement, will place back on IV steroids. Will order labs including BNP today and give lasix 20mg IV x1. Initial LTACH request was denied, suggest having CM appeal it now that patient is back on HFNC. Will continue to follow. 12/06/20: Steroid taper as follows: 60 daily for 5 days, 40 daily for 5 days, 20 daily for 5 days, 10 daily for 5 days. Resume whatever home regimen patient was on at home. Wean Oxygen for sats >88%, likely patient will be fine on 2-3 liters, does not need 4. Will sign off. Call if questions. 12/05/20: Change to oral steroids starting tomorrow with prolonged taper. Likely dischargeable over the weekend. 12/04/20: LTACH denied. Continue to wean. Continue IV steroids. 12/03/20: Follow up with CM in regards to LTACH. Continue IV steroids. Wean FiO2 as tolerated. PT/OT if not already evaluated. Patient stable enough to transfer to floor. 12/02/20: CM still waiting to hear back from LTACH in regards to auth. Continue to wean FiO2 as tolerated for sats >88%. Continue IV steroids. 12/01/20: Wean HFNC for sats >88%. Spoke with CM about checking on LTACH but patient may be able to be weaned further now while in house. Will speak with RT about this. If placed on salter, may need to consider transfer to medical/surgical floor with remote tele. 11/28/20: Continue to wean HFNC. Agree with holding Precedex, can increase seroquel if needed to help with mood. Hopeful that over the weekend will be down to nasal cannula and can transfer to the floor. CM working on LTACH evaluation. Patient is stable for transfer, if and when accepted. 11/27/20: Will transfer to step down today. Agree with bedside swallow eval now that patient is more awake. Will try bID seroquel to help with mood and agitation. Hopeful Cr has stablized. Continue steroids at 40q8. Consider LTACH evaluation 11/26/20: 11/25/20: Continue bipap for right now. Added precedex and stopped ativan as this may be worsening agitation. Ok with haldol use. Continue daily diuretics to keep patient net negative. Continue ICU monitoring for now. Renal function is better. Guarded prognosis. 11/23/20: Wean sedation to off. If patient can tolerate being off sedation, will attempt PSV trial, otherwise, will likely have to just stop sedation and extubate, will have bipap ready for as needed purposes. Needs chemistry to assess renal function. Out put was good. 1. Repeat ABG later this afternoon and wean FIO2 according (>88%) 2. Stop sedation, need to assess mental state 3. Follow up renal function and urine output. 4. Guarded prognosis, this is likely acute on chronic respiratory failure. cct 31 minutes. Subjective Date of service: 12/19/20 Principal diagnosis: Acute respiratory failure Interval history: Appears patient being discharged to hospice. Objective Vital Signs - 12hr 12/19/20 12/19/20 12/19/20 01:13 04:00 06:04 Temperature 98.0 F 97.7 F Pulse Rate 61 61 66 Pulse Rate [ Anterior Bilateral Throughout] Pulse Rate [ From Monitor] Respiratory 20 20 Rate Respiratory Rate [Anterior Bilateral Throughout] Blood Pressure 136/64 137/66 Blood Pressure [Left] O2 Sat by Pulse 98 99 Oximetry 12/19/20 12/19/20 12/19/20 07:51 07:55 08:10 Temperature 98.5 F Pulse Rate 67 77 Pulse Rate [ Anterior Bilateral Throughout] Pulse Rate [ From Monitor] Respiratory 36 H Rate Respiratory Rate [Anterior Bilateral Throughout] Blood Pressure Blood Pressure 155/74 [Left] O2 Sat by Pulse 98 Oximetry 12/19/20 12/19/20 12/19/20 08:30 09:00 09:46 Temperature Pulse Rate 66 Pulse Rate [ 66 Anterior Bilateral Throughout] Pulse Rate [ 77 From Monitor] Respiratory 20 Rate Respiratory 22 Rate [Anterior Bilateral Throughout] Blood Pressure 155/74 Blood Pressure [Left] O2 Sat by Pulse 98 Oximetry Constitutional: no acute distress, alert, agitated, other Eyes: non-icteric ENT: oropharynx moist, other (Crowded oropharynx) Neck: supple, other (large in circumference) Effort: normal Ascultation: Bilateral: clear, diminished breath sounds, wheezes Percussion: Bilateral: not dull Cardiovascular: other (tachy, no mrg) Gastrointestinal: normoactive bowel sounds, soft, non-tender, non-distended Extremities: no cyanosis, no edema, pink and warm Neurologic: normal mental status, non-focal exam, pupils equal and round Psychiatric: mood appropriate, affect normal CBC and BMP: 12/17/20 04:28 12/17/20 04:28 ABG, PT/INR, D-dimer: ABG ABG pH 7.517 (7.320-7.450) H 12/17/20 06:13 POC ABG pCO2 54.0 mmHg (32.0-48.0) H 12/17/20 06:13 POC ABG pO2 33.3 mmHg (83-108) L 12/17/20 06:13 POC ABG HCO3 42.8 12/17/20 06:13 ABG O2 Saturation 66.7 (0-100) 12/17/20 06:13 PT/INR, D-dimer PT 13.5 Sec. (12.2-14.9) 11/21/20 20:50 INR 0.98 (0.87-1.13) 11/21/20 20:50 Abnormal lab findings: Abnormal Labs 11/21/20 11/21/20 11/22/20 20:50 20:50 00:11 WBC RBC 3.48 L Hgb 11.1 L Hct 34.3 L MCV 99 H Lymph % (Auto) 6.8 L [place] % (Auto) Lymph # (Auto) 0.6 L [place] # (Auto) Seg Neutrophils % 85.5 H Seg Neuts % (Manual) Nucleated RBC % Seg Neutrophils # Seg Neutrophils # Man Lymphocytes # (Manual) ABG pH POC ABG pCO2 POC ABG pO2 ABG Hemoglobin ABG Oxyhemoglobin ABG Sodium ABG Potassium ABG Chloride ABG Glucose Carboxyhemoglobin Sodium 130 L Potassium 7.3 H* Chloride 91.1 L Carbon Dioxide BUN 40 H Creatinine 2.1 H Glucose 195 H POC Glucose Lactic Acid Calcium Phosphorus AST 91 H ALT 65 H CK-MB (CK-2) Rel Index 4.1 H Troponin T 0.045 H NT-Pro-B Natriuret Pep 6998 H Serum Total Protein Total Protein Albumin 3.7 L Wwfkv-2-Wyiuiasps Gamma Globulins PEP Interpretation HDL Cholesterol 60 H Arterial Blood Glucose Arterial Blood Ionized Calcium Urine WBC (Auto) Urine Creatinine 158.2 H Hepatitis C Antibody 11/22/20 11/22/20 11/22/20 00:23 00:40 01:37 WBC 14.1 H RBC 3.53 L Hgb 11.0 L Hct 34.1 L MCV 97 H Lymph % (Auto) 12.3 L [place] % (Auto) 14.2 H Lymph # (Auto) [place] # (Auto) 2.0 H Seg Neutrophils % 72.3 H Seg Neuts % (Manual) Nucleated RBC % Seg Neutrophils # 10.2 H Seg Neutrophils # Man Lymphocytes # (Manual) ABG pH POC ABG pCO2 POC ABG pO2 ABG Hemoglobin ABG Oxyhemoglobin ABG Sodium ABG Potassium ABG Chloride ABG Glucose Carboxyhemoglobin Sodium Potassium 5.1 H D Chloride Carbon Dioxide BUN Creatinine Glucose POC Glucose Lactic Acid 2.10 H* Calcium Phosphorus AST ALT CK-MB (CK-2) Rel Index Troponin T NT-Pro-B Natriuret Pep Serum Total Protein Total Protein Albumin Icanr-5-Kgchouycw Gamma Globulins PEP Interpretation HDL Cholesterol Arterial Blood Glucose Arterial Blood Ionized Calcium Urine WBC (Auto) Urine Creatinine Hepatitis C Antibody 11/22/20 11/22/20 11/22/20 01:37 03:20 05:00 WBC RBC Hgb Hct MCV Lymph % (Auto) [place] % (Auto) Lymph # (Auto) [place] # (Auto) Seg Neutrophils % Seg Neuts % (Manual) Nucleated RBC % Seg Neutrophils # Seg Neutrophils # Man Lymphocytes # (Manual) ABG pH POC ABG pCO2 58.4 H POC ABG pO2 ABG Hemoglobin 11.1 L ABG Oxyhemoglobin ABG Sodium 135.1 L ABG Potassium 5.0 H ABG Chloride ABG Glucose Carboxyhemoglobin Sodium Potassium 5.1 H Chloride Carbon Dioxide 31 H BUN 40 H Creatinine 2.0 H Glucose 49 L POC Glucose Lactic Acid Calcium Phosphorus AST ALT CK-MB (CK-2) Rel Index Troponin T NT-Pro-B Natriuret Pep Serum Total Protein Total Protein Albumin Ticaz-3-Uumdzihrt Gamma Globulins PEP Interpretation HDL Cholesterol Arterial Blood Glucose Arterial Blood Ionized Calcium Urine WBC (Auto) 33.0 H Urine Creatinine Hepatitis C Antibody 11/22/20 11/22/20 11/22/20 05:00 05:00 05:00 WBC RBC Hgb Hct MCV Lymph % (Auto) [place] % (Auto) Lymph # (Auto) [place] # (Auto) Seg Neutrophils % Seg Neuts % (Manual) Nucleated RBC % Seg Neutrophils # Seg Neutrophils # Man Lymphocytes # (Manual) ABG pH POC ABG pCO2 POC ABG pO2 ABG Hemoglobin ABG Oxyhemoglobin ABG Sodium ABG Potassium ABG Chloride ABG Glucose Carboxyhemoglobin Sodium 136 L Potassium Chloride 97.8 L Carbon Dioxide BUN 41 H Creatinine 1.8 H 1.8 H Glucose POC Glucose Lactic Acid Calcium 8.2 L Phosphorus AST ALT CK-MB (CK-2) Rel Index Troponin T 0.065 H D NT-Pro-B Natriuret Pep Serum Total Protein Total Protein Albumin Gkgac-7-Orryrpqwg Gamma Globulins PEP Interpretation HDL Cholesterol Arterial Blood Glucose Arterial Blood Ionized Calcium Urine WBC (Auto) Urine Creatinine Hepatitis C Antibody 11/22/20 11/22/20 11/22/20 10:20 10:20 15:00 WBC RBC 3.16 L Hgb 10.2 L Hct 29.9 L MCV 95 H Lymph % (Auto) [place] % (Auto) Lymph # (Auto) [place] # (Auto) Seg Neutrophils % Seg Neuts % (Manual) Nucleated RBC % Seg Neutrophils # Seg Neutrophils # Man Lymphocytes # (Manual) ABG pH 7.501 H POC ABG pCO2 POC ABG pO2 ABG Hemoglobin 10.5 L ABG Oxyhemoglobin ABG Sodium 134.9 L ABG Potassium ABG Chloride ABG Glucose 115 H Carboxyhemoglobin 0.4 L Sodium Potassium Chloride Carbon Dioxide BUN Creatinine Glucose POC Glucose Lactic Acid Calcium Phosphorus AST ALT CK-MB (CK-2) Rel Index Troponin T 0.078 H NT-Pro-B Natriuret Pep Serum Total Protein Total Protein Albumin Vjmiq-7-Dceujwwvb Gamma Globulins PEP Interpretation HDL Cholesterol Arterial Blood Glucose 115 H Arterial Blood Ionized Calcium 4.3 L Urine WBC (Auto) Urine Creatinine Hepatitis C Antibody 11/22/20 11/22/20 11/22/20 16:00 17:45 23:21 WBC RBC Hgb Hct MCV Lymph % (Auto) [place] % (Auto) Lymph # (Auto) [place] # (Auto) Seg Neutrophils % Seg Neuts % (Manual) Nucleated RBC % Seg Neutrophils # Seg Neutrophils # Man Lymphocytes # (Manual) ABG pH POC ABG pCO2 POC ABG pO2 ABG Hemoglobin ABG Oxyhemoglobin ABG Sodium ABG Potassium ABG Chloride ABG Glucose Carboxyhemoglobin Sodium Potassium Chloride Carbon Dioxide BUN Creatinine Glucose POC Glucose 107 H 115 H Lactic Acid Calcium Phosphorus AST ALT CK-MB (CK-2) Rel Index Troponin T NT-Pro-B Natriuret Pep Serum Total Protein Total Protein Albumin Osbky-8-Txhntumlr Gamma Globulins PEP Interpretation HDL Cholesterol Arterial Blood Glucose Arterial Blood Ionized Calcium Urine WBC (Auto) Urine Creatinine Hepatitis C Antibody Reactive A 11/23/20 11/23/20 11/23/20 03:03 05:33 10:00 WBC RBC 3.33 L Hgb 10.6 L Hct 32.2 L MCV 97 H Lymph % (Auto) [place] % (Auto) 15.0 H Lymph # (Auto) [place] # (Auto) 1.5 H Seg Neutrophils % Seg Neuts % (Manual) Nucleated RBC % Seg Neutrophils # Seg Neutrophils # Man Lymphocytes # (Manual) ABG pH POC ABG pCO2 POC ABG pO2 115.8 H ABG Hemoglobin 10.1 L ABG Oxyhemoglobin ABG Sodium 135.8 L ABG Potassium ABG Chloride ABG Glucose 98 H Carboxyhemoglobin 0.4 L Sodium Potassium Chloride Carbon Dioxide BUN Creatinine Glucose POC Glucose 106 H Lactic Acid Calcium Phosphorus AST ALT CK-MB (CK-2) Rel Index Troponin T NT-Pro-B Natriuret Pep Serum Total Protein Total Protein Albumin Sgpbk-3-Uewpfooet Gamma Globulins PEP Interpretation HDL Cholesterol Arterial Blood Glucose 98 H Arterial Blood Ionized Calcium 4.4 L Urine WBC (Auto) Urine Creatinine Hepatitis C Antibody 11/23/20 11/23/20 11/23/20 10:00 10:00 12:12 WBC RBC Hgb Hct MCV Lymph % (Auto) [place] % (Auto) Lymph # (Auto) [place] # (Auto) Seg Neutrophils % Seg Neuts % (Manual) Nucleated RBC % Seg Neutrophils # Seg Neutrophils # Man Lymphocytes # (Manual) ABG pH POC ABG pCO2 POC ABG pO2 ABG Hemoglobin ABG Oxyhemoglobin ABG Sodium ABG Potassium ABG Chloride ABG Glucose Carboxyhemoglobin Sodium Potassium Chloride Carbon Dioxide BUN 22 H Creatinine Glucose 101 H POC Glucose 119 H Lactic Acid Calcium 7.9 L Phosphorus AST ALT CK-MB (CK-2) Rel Index Troponin T NT-Pro-B Natriuret Pep Serum Total Protein 5.3 L Total Protein 5.5 L Albumin 2.8 L 2.8 L Wocvh-5-Xviukwpcl 0.4 H Gamma Globulins 0.7 L PEP Interpretation see below H HDL Cholesterol Arterial Blood Glucose Arterial Blood Ionized Calcium Urine WBC (Auto) Urine Creatinine Hepatitis C Antibody 11/23/20 11/23/20 11/24/20 18:21 23:28 01:48 WBC RBC Hgb Hct MCV Lymph % (Auto) [place] % (Auto) Lymph # (Auto) [place] # (Auto) Seg Neutrophils % Seg Neuts % (Manual) Nucleated RBC % Seg Neutrophils # Seg Neutrophils # Man Lymphocytes # (Manual) ABG pH 7.281 L POC ABG pCO2 58.4 H POC ABG pO2 ABG Hemoglobin 11.8 L ABG Oxyhemoglobin ABG Sodium ABG Potassium ABG Chloride ABG Glucose 101 H Carboxyhemoglobin Sodium Potassium Chloride Carbon Dioxide BUN Creatinine Glucose POC Glucose 106 H 108 H Lactic Acid Calcium Phosphorus AST ALT CK-MB (CK-2) Rel Index Troponin T NT-Pro-B Natriuret Pep Serum Total Protein Total Protein Albumin Buqia-3-Ivlvyolwt Gamma Globulins PEP Interpretation HDL Cholesterol Arterial Blood Glucose 101 H Arterial Blood Ionized Calcium Urine WBC (Auto) Urine Creatinine Hepatitis C Antibody 11/24/20 11/24/20 11/25/20 09:58 09:58 00:29 WBC RBC Hgb Hct MCV Lymph % (Auto) [place] % (Auto) Lymph # (Auto) [place] # (Auto) Seg Neutrophils % Seg Neuts % (Manual) Nucleated RBC % Seg Neutrophils # Seg Neutrophils # Man Lymphocytes # (Manual) ABG pH POC ABG pCO2 POC ABG pO2 ABG Hemoglobin ABG Oxyhemoglobin ABG Sodium ABG Potassium ABG Chloride ABG Glucose Carboxyhemoglobin Sodium 148 H Potassium Chloride Carbon Dioxide 34 H D BUN Creatinine Glucose POC Glucose 111 H Lactic Acid 0.60 L Calcium Phosphorus AST ALT CK-MB (CK-2) Rel Index Troponin T NT-Pro-B Natriuret Pep Serum Total Protein Total Protein Albumin Fnwpy-7-Wpahwqeno Gamma Globulins PEP Interpretation HDL Cholesterol Arterial Blood Glucose Arterial Blood Ionized Calcium Urine WBC (Auto) Urine Creatinine Hepatitis C Antibody 11/25/20 11/25/20 11/25/20 05:48 08:18 08:18 WBC 13.2 H RBC 3.56 L Hgb 10.9 L Hct 34.0 L MCV 96 H Lymph % (Auto) [place] % (Auto) Lymph # (Auto) [place] # (Auto) Seg Neutrophils % Seg Neuts % (Manual) 98.0 H Nucleated RBC % 1.0 H Seg Neutrophils # Seg Neutrophils # Man 12.9 H Lymphocytes # (Manual) 0.0 L ABG pH POC ABG pCO2 POC ABG pO2 ABG Hemoglobin ABG Oxyhemoglobin ABG Sodium ABG Potassium ABG Chloride ABG Glucose Carboxyhemoglobin Sodium 147 H Potassium Chloride Carbon Dioxide 32 H BUN 26 H Creatinine Glucose 151 H POC Glucose 148 H Lactic Acid Calcium Phosphorus AST ALT CK-MB (CK-2) Rel Index Troponin T NT-Pro-B Natriuret Pep Serum Total Protein Total Protein 6.0 L Albumin 3.7 L Zrmvy-6-Azfrrtjmc Gamma Globulins PEP Interpretation HDL Cholesterol Arterial Blood Glucose Arterial Blood Ionized Calcium Urine WBC (Auto) Urine Creatinine Hepatitis C Antibody 11/25/20 11/25/20 11/25/20 11:34 18:03 23:15 WBC RBC Hgb Hct MCV Lymph % (Auto) [place] % (Auto) Lymph # (Auto) [place] # (Auto) Seg Neutrophils % Seg Neuts % (Manual) Nucleated RBC % Seg Neutrophils # Seg Neutrophils # Man Lymphocytes # (Manual) ABG pH POC ABG pCO2 POC ABG pO2 ABG Hemoglobin ABG Oxyhemoglobin ABG Sodium ABG Potassium ABG Chloride ABG Glucose Carboxyhemoglobin Sodium Potassium Chloride Carbon Dioxide BUN Creatinine Glucose POC Glucose 144 H 147 H 158 H Lactic Acid Calcium Phosphorus AST ALT CK-MB (CK-2) Rel Index Troponin T NT-Pro-B Natriuret Pep Serum Total Protein Total Protein Albumin Izztz-5-Ebxkjppaz Gamma Globulins PEP Interpretation HDL Cholesterol Arterial Blood Glucose Arterial Blood Ionized Calcium Urine WBC (Auto) Urine Creatinine Hepatitis C Antibody 11/26/20 11/26/20 11/26/20 05:07 06:22 06:22 WBC 12.3 H RBC 3.52 L Hgb 11.1 L Hct 33.6 L MCV 95 H Lymph % (Auto) [place] % (Auto) Lymph # (Auto) [place] # (Auto) Seg Neutrophils % Seg Neuts % (Manual) Nucleated RBC % Seg Neutrophils # Seg Neutrophils # Man Lymphocytes # (Manual) ABG pH POC ABG pCO2 POC ABG pO2 ABG Hemoglobin ABG Oxyhemoglobin ABG Sodium ABG Potassium ABG Chloride ABG Glucose Carboxyhemoglobin Sodium Potassium 3.3 L Chloride 95.8 L Carbon Dioxide 33 H BUN 35 H Creatinine 1.4 H Glucose 185 H POC Glucose 184 H Lactic Acid Calcium Phosphorus AST ALT CK-MB (CK-2) Rel Index Troponin T 0.036 H D NT-Pro-B Natriuret Pep Serum Total Protein Total Protein 6.2 L Albumin 3.1 L Zijvi-5-Juazqveyj Gamma Globulins PEP Interpretation HDL Cholesterol Arterial Blood Glucose Arterial Blood Ionized Calcium Urine WBC (Auto) Urine Creatinine Hepatitis C Antibody 11/26/20 11/26/20 11/26/20 12:52 17:30 23:14 WBC RBC Hgb Hct MCV Lymph % (Auto) [place] % (Auto) Lymph # (Auto) [place] # (Auto) Seg Neutrophils % Seg Neuts % (Manual) Nucleated RBC % Seg Neutrophils # Seg Neutrophils # Man Lymphocytes # (Manual) ABG pH POC ABG pCO2 POC ABG pO2 ABG Hemoglobin ABG Oxyhemoglobin ABG Sodium ABG Potassium ABG Chloride ABG Glucose Carboxyhemoglobin Sodium Potassium Chloride Carbon Dioxide BUN Creatinine Glucose POC Glucose 170 H 133 H 149 H Lactic Acid Calcium Phosphorus AST ALT CK-MB (CK-2) Rel Index Troponin T NT-Pro-B Natriuret Pep Serum Total Protein Total Protein Albumin Eavab-1-Zzokzdham Gamma Globulins PEP Interpretation HDL Cholesterol Arterial Blood Glucose Arterial Blood Ionized Calcium Urine WBC (Auto) Urine Creatinine Hepatitis C Antibody 11/27/20 11/27/20 11/27/20 05:35 08:03 12:02 WBC RBC Hgb Hct MCV Lymph % (Auto) [place] % (Auto) Lymph # (Auto) [place] # (Auto) Seg Neutrophils % Seg Neuts % (Manual) Nucleated RBC % Seg Neutrophils # Seg Neutrophils # Man Lymphocytes # (Manual) ABG pH POC ABG pCO2 POC ABG pO2 ABG Hemoglobin ABG Oxyhemoglobin ABG Sodium ABG Potassium ABG Chloride ABG Glucose Carboxyhemoglobin Sodium Potassium Chloride 97.0 L Carbon Dioxide 31 H BUN 41 H Creatinine 1.4 H Glucose 145 H POC Glucose 135 H 139 H Lactic Acid Calcium Phosphorus 2.20 L AST ALT CK-MB (CK-2) Rel Index Troponin T NT-Pro-B Natriuret Pep Serum Total Protein Total Protein Albumin Ywjqj-0-Wvqsfwjim Gamma Globulins PEP Interpretation HDL Cholesterol Arterial Blood Glucose Arterial Blood Ionized Calcium Urine WBC (Auto) Urine Creatinine Hepatitis C Antibody 11/27/20 11/28/20 11/28/20 18:41 05:26 06:08 WBC RBC Hgb Hct MCV Lymph % (Auto) [place] % (Auto) Lymph # (Auto) [place] # (Auto) Seg Neutrophils % Seg Neuts % (Manual) Nucleated RBC % Seg Neutrophils # Seg Neutrophils # Man Lymphocytes # (Manual) ABG pH POC ABG pCO2 POC ABG pO2 ABG Hemoglobin ABG Oxyhemoglobin ABG Sodium ABG Potassium ABG Chloride ABG Glucose Carboxyhemoglobin Sodium Potassium Chloride Carbon Dioxide BUN 45 H Creatinine 1.4 H Glucose 135 H POC Glucose 148 H 143 H Lactic Acid Calcium Phosphorus AST ALT CK-MB (CK-2) Rel Index Troponin T NT-Pro-B Natriuret Pep Serum Total Protein Total Protein Albumin Fjbsc-6-Qlthrenia Gamma Globulins PEP Interpretation HDL Cholesterol Arterial Blood Glucose Arterial Blood Ionized Calcium Urine WBC (Auto) Urine Creatinine Hepatitis C Antibody 11/28/20 11/28/20 11/28/20 11:46 17:31 21:17 WBC RBC Hgb Hct MCV Lymph % (Auto) [place] % (Auto) Lymph # (Auto) [place] # (Auto) Seg Neutrophils % Seg Neuts % (Manual) Nucleated RBC % Seg Neutrophils # Seg Neutrophils # Man Lymphocytes # (Manual) ABG pH POC ABG pCO2 POC ABG pO2 ABG Hemoglobin ABG Oxyhemoglobin ABG Sodium ABG Potassium ABG Chloride ABG Glucose Carboxyhemoglobin Sodium Potassium Chloride Carbon Dioxide BUN Creatinine Glucose POC Glucose 132 H 156 H 122 H Lactic Acid Calcium Phosphorus AST ALT CK-MB (CK-2) Rel Index Troponin T NT-Pro-B Natriuret Pep Serum Total Protein Total Protein Albumin Ozudb-7-Dbmnskvml Gamma Globulins PEP Interpretation HDL Cholesterol Arterial Blood Glucose Arterial Blood Ionized Calcium Urine WBC (Auto) Urine Creatinine Hepatitis C Antibody 11/29/20 11/29/20 11/29/20 00:06 04:43 05:15 WBC RBC Hgb Hct MCV Lymph % (Auto) [place] % (Auto) Lymph # (Auto) [place] # (Auto) Seg Neutrophils % Seg Neuts % (Manual) Nucleated RBC % Seg Neutrophils # Seg Neutrophils # Man Lymphocytes # (Manual) ABG pH POC ABG pCO2 POC ABG pO2 ABG Hemoglobin ABG Oxyhemoglobin ABG Sodium ABG Potassium ABG Chloride ABG Glucose Carboxyhemoglobin Sodium Potassium Chloride 97.7 L Carbon Dioxide BUN 56 H Creatinine 1.6 H Glucose 132 H POC Glucose 114 H 125 H Lactic Acid Calcium Phosphorus AST ALT CK-MB (CK-2) Rel Index Troponin T NT-Pro-B Natriuret Pep Serum Total Protein Total Protein Albumin Iygij-5-Urbxxgsjl Gamma Globulins PEP Interpretation HDL Cholesterol Arterial Blood Glucose Arterial Blood Ionized Calcium Urine WBC (Auto) Urine Creatinine Hepatitis C Antibody 11/29/20 11/29/20 11/30/20 12:09 18:12 04:47 WBC RBC Hgb Hct MCV Lymph % (Auto) [place] % (Auto) Lymph # (Auto) [place] # (Auto) Seg Neutrophils % Seg Neuts % (Manual) Nucleated RBC % Seg Neutrophils # Seg Neutrophils # Man Lymphocytes # (Manual) ABG pH POC ABG pCO2 POC ABG pO2 ABG Hemoglobin ABG Oxyhemoglobin ABG Sodium ABG Potassium ABG Chloride ABG Glucose Carboxyhemoglobin Sodium Potassium Chloride Carbon Dioxide 31 H BUN 59 H Creatinine 1.6 H Glucose 122 H POC Glucose 142 H 132 H Lactic Acid Calcium Phosphorus AST ALT CK-MB (CK-2) Rel Index Troponin T NT-Pro-B Natriuret Pep Serum Total Protein Total Protein Albumin Wtclh-0-Ittqqkavt Gamma Globulins PEP Interpretation HDL Cholesterol Arterial Blood Glucose Arterial Blood Ionized Calcium Urine WBC (Auto) Urine Creatinine Hepatitis C Antibody 11/30/20 11/30/20 11/30/20 05:45 11:47 18:16 WBC RBC Hgb Hct MCV Lymph % (Auto) [place] % (Auto) Lymph # (Auto) [place] # (Auto) Seg Neutrophils % Seg Neuts % (Manual) Nucleated RBC % Seg Neutrophils # Seg Neutrophils # Man Lymphocytes # (Manual) ABG pH POC ABG pCO2 POC ABG pO2 ABG Hemoglobin ABG Oxyhemoglobin ABG Sodium ABG Potassium ABG Chloride ABG Glucose Carboxyhemoglobin Sodium Potassium Chloride Carbon Dioxide BUN Creatinine Glucose POC Glucose 118 H 123 H 126 H Lactic Acid Calcium Phosphorus AST ALT CK-MB (CK-2) Rel Index Troponin T NT-Pro-B Natriuret Pep Serum Total Protein Total Protein Albumin Qjdmi-7-Irsmfaasv Gamma Globulins PEP Interpretation HDL Cholesterol Arterial Blood Glucose Arterial Blood Ionized Calcium Urine WBC (Auto) Urine Creatinine Hepatitis C Antibody 12/01/20 12/01/20 12/01/20 00:11 04:57 05:41 WBC RBC Hgb Hct MCV Lymph % (Auto) [place] % (Auto) Lymph # (Auto) [place] # (Auto) Seg Neutrophils % Seg Neuts % (Manual) Nucleated RBC % Seg Neutrophils # Seg Neutrophils # Man Lymphocytes # (Manual) ABG pH POC ABG pCO2 POC ABG pO2 ABG Hemoglobin ABG Oxyhemoglobin ABG Sodium ABG Potassium ABG Chloride ABG Glucose Carboxyhemoglobin Sodium Potassium Chloride Carbon Dioxide BUN 52 H Creatinine 1.4 H Glucose 121 H POC Glucose 117 H 120 H Lactic Acid Calcium Phosphorus AST ALT CK-MB (CK-2) Rel Index Troponin T NT-Pro-B Natriuret Pep Serum Total Protein Total Protein Albumin Glpre-1-[id number] Gamma Globulins PEP Interpretation HDL Cholesterol Arterial Blood Glucose Arterial Blood Ionized Calcium Urine WBC (Auto) Urine Creatinine Hepatitis C Antibody 12/01/20 12/02/20 12/02/20 23:35 06:02 08:09 WBC RBC Hgb Hct MCV Lymph % (Auto) [place] % (Auto) Lymph # (Auto) [place] # (Auto) Seg Neutrophils % Seg Neuts % (Manual) Nucleated RBC % Seg Neutrophils # Seg Neutrophils # Man Lymphocytes # (Manual) ABG pH POC ABG pCO2 POC ABG pO2 ABG Hemoglobin ABG Oxyhemoglobin ABG Sodium ABG Potassium ABG Chloride ABG Glucose Carboxyhemoglobin Sodium Potassium Chloride Carbon Dioxide BUN Creatinine Glucose POC Glucose 117 H 108 H 117 H Lactic Acid Calcium Phosphorus AST ALT CK-MB (CK-2) Rel Index Troponin T NT-Pro-B Natriuret Pep Serum Total Protein Total Protein Albumin Prxmj-1-Uolsdnzcm Gamma Globulins PEP Interpretation HDL Cholesterol Arterial Blood Glucose Arterial Blood Ionized Calcium Urine WBC (Auto) Urine Creatinine Hepatitis C Antibody 12/02/20 12/02/20 12/02/20 09:40 11:33 17:34 WBC RBC Hgb Hct MCV Lymph % (Auto) [place] % (Auto) Lymph # (Auto) [place] # (Auto) Seg Neutrophils % Seg Neuts % (Manual) Nucleated RBC % Seg Neutrophils # Seg Neutrophils # Man Lymphocytes # (Manual) ABG pH POC ABG pCO2 POC ABG pO2 ABG Hemoglobin ABG Oxyhemoglobin ABG Sodium ABG Potassium ABG Chloride ABG Glucose Carboxyhemoglobin Sodium Potassium Chloride 97.6 L Carbon Dioxide 35 H BUN 45 H Creatinine Glucose POC Glucose 109 H 124 H Lactic Acid Calcium Phosphorus AST ALT CK-MB (CK-2) Rel Index Troponin T NT-Pro-B Natriuret Pep Serum Total Protein Total Protein Albumin Oxtek-4-Fxcyhniop Gamma Globulins PEP Interpretation HDL Cholesterol Arterial Blood Glucose Arterial Blood Ionized Calcium Urine WBC (Auto) Urine Creatinine Hepatitis C Antibody 12/03/20 12/03/20 12/03/20 05:40 07:16 16:46 WBC RBC Hgb Hct MCV Lymph % (Auto) [place] % (Auto) Lymph # (Auto) [place] # (Auto) Seg Neutrophils % Seg Neuts % (Manual) Nucleated RBC % Seg Neutrophils # Seg Neutrophils # Man Lymphocytes # (Manual) ABG pH POC ABG pCO2 POC ABG pO2 ABG Hemoglobin ABG Oxyhemoglobin ABG Sodium ABG Potassium ABG Chloride ABG Glucose Carboxyhemoglobin Sodium Potassium Chloride Carbon Dioxide BUN 44 H Creatinine Glucose 117 H POC Glucose 115 H 106 H Lactic Acid Calcium Phosphorus AST ALT CK-MB (CK-2) Rel Index Troponin T NT-Pro-B Natriuret Pep Serum Total Protein Total Protein Albumin Gvvtd-4-Nhlxamliu Gamma Globulins PEP Interpretation HDL Cholesterol Arterial Blood Glucose Arterial Blood Ionized Calcium Urine WBC (Auto) Urine Creatinine Hepatitis C Antibody 12/03/20 12/04/20 12/04/20 21:55 07:53 11:43 WBC RBC Hgb Hct MCV Lymph % (Auto) [place] % (Auto) Lymph # (Auto) [place] # (Auto) Seg Neutrophils % Seg Neuts % (Manual) Nucleated RBC % Seg Neutrophils # Seg Neutrophils # Man Lymphocytes # (Manual) ABG pH POC ABG pCO2 POC ABG pO2 ABG Hemoglobin ABG Oxyhemoglobin ABG Sodium ABG Potassium ABG Chloride ABG Glucose Carboxyhemoglobin Sodium Potassium Chloride Carbon Dioxide BUN Creatinine Glucose POC Glucose 113 H 110 H 110 H Lactic Acid Calcium Phosphorus AST ALT CK-MB (CK-2) Rel Index Troponin T NT-Pro-B Natriuret Pep Serum Total Protein Total Protein Albumin Uwbcb-9-Olxmmfben Gamma Globulins PEP Interpretation HDL Cholesterol Arterial Blood Glucose Arterial Blood Ionized Calcium Urine WBC (Auto) Urine Creatinine Hepatitis C Antibody 12/04/20 12/08/20 12/09/20 17:21 09:43 08:43 WBC RBC Hgb Hct MCV Lymph % (Auto) [place] % (Auto) Lymph # (Auto) [place] # (Auto) Seg Neutrophils % Seg Neuts % (Manual) Nucleated RBC % Seg Neutrophils # Seg Neutrophils # Man Lymphocytes # (Manual) ABG pH POC ABG pCO2 POC ABG pO2 ABG Hemoglobin ABG Oxyhemoglobin ABG Sodium ABG Potassium ABG Chloride ABG Glucose Carboxyhemoglobin Sodium Potassium Chloride 96.2 L Carbon Dioxide 39 H BUN 34 H Creatinine Glucose POC Glucose 135 H Lactic Acid Calcium Phosphorus AST ALT CK-MB (CK-2) Rel Index Troponin T NT-Pro-B Natriuret Pep 4253 H Serum Total Protein Total Protein Albumin Vuial-4-Wsiiwnafu Gamma Globulins PEP Interpretation HDL Cholesterol Arterial Blood Glucose Arterial Blood Ionized Calcium Urine WBC (Auto) Urine Creatinine Hepatitis C Antibody 12/10/20 12/12/20 12/15/20 14:53 12:05 10:20 WBC RBC Hgb Hct MCV Lymph % (Auto) [place] % (Auto) Lymph # (Auto) [place] # (Auto) Seg Neutrophils % Seg Neuts % (Manual) Nucleated RBC % Seg Neutrophils # Seg Neutrophils # Man Lymphocytes # (Manual) ABG pH 7.470 H POC ABG pCO2 53.3 H POC ABG pO2 82.4 L ABG Hemoglobin 10.1 L ABG Oxyhemoglobin ABG Sodium 131.3 L ABG Potassium ABG Chloride 89.0 L ABG Glucose 123 H Carboxyhemoglobin Sodium Potassium Chloride 91.9 L 91.9 L Carbon Dioxide 39 H 38 H BUN 46 H 48 H Creatinine Glucose 141 H 142 H POC Glucose Lactic Acid Calcium 8.3 L Phosphorus AST ALT CK-MB (CK-2) Rel Index Troponin T NT-Pro-B Natriuret Pep Serum Total Protein Total Protein Albumin Qqesc-8-Kfjdkivhe Gamma Globulins PEP Interpretation HDL Cholesterol Arterial Blood Glucose 123 H Arterial Blood Ionized Calcium 4.3 L Urine WBC (Auto) Urine Creatinine Hepatitis C Antibody 12/16/20 12/16/20 12/17/20 22:04 22:13 04:28 WBC 13.4 H RBC 3.16 L Hgb 9.7 L Hct 29.2 L MCV Lymph % (Auto) [place] % (Auto) Lymph # (Auto) [place] # (Auto) Seg Neutrophils % Seg Neuts % (Manual) Nucleated RBC % Seg Neutrophils # Seg Neutrophils # Man Lymphocytes # (Manual) ABG pH 7.534 H POC ABG pCO2 50.1 H POC ABG pO2 ABG Hemoglobin 9.6 L ABG Oxyhemoglobin ABG Sodium 130.9 L ABG Potassium 3.1 L ABG Chloride 86.0 L ABG Glucose 133 H Carboxyhemoglobin Sodium Potassium Chloride Carbon Dioxide BUN Creatinine Glucose POC Glucose 137 H Lactic Acid Calcium Phosphorus AST ALT CK-MB (CK-2) Rel Index Troponin T NT-Pro-B Natriuret Pep Serum Total Protein Total Protein Albumin Rvhzi-1-Wqibdfnro Gamma Globulins PEP Interpretation HDL Cholesterol Arterial Blood Glucose 133 H Arterial Blood Ionized Calcium 4.2 L Urine WBC (Auto) Urine Creatinine Hepatitis C Antibody 12/17/20 12/17/20 12/17/20 04:28 06:13 11:29 WBC RBC Hgb Hct MCV Lymph % (Auto) [place] % (Auto) Lymph # (Auto) [place] # (Auto) Seg Neutrophils % Seg Neuts % (Manual) Nucleated RBC % Seg Neutrophils # Seg Neutrophils # Man Lymphocytes # (Manual) ABG pH 7.517 H POC ABG pCO2 54.0 H POC ABG pO2 33.3 L ABG Hemoglobin 10.1 L ABG Oxyhemoglobin 65.9 L ABG Sodium 131.5 L ABG Potassium 3.2 L ABG Chloride 87.0 L ABG Glucose 116 H Carboxyhemoglobin Sodium 135 L Potassium 3.1 L D Chloride 85.9 L Carbon Dioxide 41 H* BUN 36 H Creatinine Glucose 110 H POC Glucose 110 H Lactic Acid Calcium Phosphorus AST ALT CK-MB (CK-2) Rel Index Troponin T NT-Pro-B Natriuret Pep Serum Total Protein Total Protein 5.1 L Albumin 2.9 L Hbklg-6-Bfvonubkw Gamma Globulins PEP Interpretation HDL Cholesterol Arterial Blood Glucose 116 H Arterial Blood Ionized Calcium 4.3 L Urine WBC (Auto) Urine Creatinine Hepatitis C Antibody 12/17/20 12/19/20 12/19/20 17:25 00:56 06:01 WBC RBC Hgb Hct MCV Lymph % (Auto) [place] % (Auto) Lymph # (Auto) [place] # (Auto) Seg Neutrophils % Seg Neuts % (Manual) Nucleated RBC % Seg Neutrophils # Seg Neutrophils # Man Lymphocytes # (Manual) ABG pH POC ABG pCO2 POC ABG pO2 ABG Hemoglobin ABG Oxyhemoglobin ABG Sodium ABG Potassium ABG Chloride ABG Glucose Carboxyhemoglobin Sodium Potassium Chloride Carbon Dioxide BUN Creatinine Glucose POC Glucose 159 H 181 H 144 H Lactic Acid Calcium Phosphorus AST ALT CK-MB (CK-2) Rel Index Troponin T NT-Pro-B Natriuret Pep Serum Total Protein Total Protein Albumin Yzbxe-4-Ffaplyymr Gamma Globulins PEP Interpretation HDL Cholesterol Arterial Blood Glucose Arterial Blood Ionized Calcium Urine WBC (Auto) Urine Creatinine Hepatitis C Antibody
[2020-12-19 12:15] VITALS: BP 154/74
== END 2020-12-19 18:15 | disposition hospice, home (50) | DRG 871 ==
LOC: ED 20:32 → CC1 11-22 00:40 → IMCU 11-27 15:02 → 4A 12-04 20:40 → IMCU 12-17 00:02 → 4A 12-17 22:32
PROVIDERS: ADMIT Hospitalist; ATTEND Internal Medicine
PROC: 5A1945Z Respiratory Ventilation, 24-96 Consecutive Hours (ICD-10-PCS; 2020-11-21)
PROC: 0BH17EZ Insertion of Endotracheal Airway into Trachea, Via Natural or Artificial Opening (ICD-10-PCS; 2020-11-21)
PROC: 06HM33Z Insertion of Infusion Device into Right Femoral Vein, Percutaneous Approach (ICD-10-PCS; principal; 2020-11-22)
PROC: 4A033R1 Measurement of Arterial Saturation, Peripheral, Percutaneous Approach (ICD-10-PCS; 2020-11-22)
PROC: 5A09457 Assistance with Respiratory Ventilation, 24-96 Consecutive Hours, Continuous Positive Airway Pressure (ICD-10-PCS; 2020-11-23)
PROC: 5A0935A Assistance with Respiratory Ventilation, Less than 24 Consecutive Hours, High Flow/Velocity Cannula (ICD-10-PCS; 2020-11-27)
DX: A41.9 Sepsis, unspecified organism (principal); J96.21 Acute and chronic respiratory failure with hypoxia; I21.A1 Myocardial infarction type 2; G93.41 Metabolic encephalopathy; E43 Unspecified severe protein-calorie malnutrition; N17.0 Acute kidney failure with tubular necrosis; I50.23 Acute on chronic systolic (congestive) heart failure; E87.0 Hyperosmolality and hypernatremia; N39.0 Urinary tract infection, site not specified; J44.1 Chronic obstructive pulmonary disease with (acute) exacerbation; I11.0 Hypertensive heart disease with heart failure; E87.5 Hyperkalemia; D64.9 Anemia, unspecified; I65.21 Occlusion and stenosis of right carotid artery; I27.20 Pulmonary hypertension, unspecified; B19.20 Unspecified viral hepatitis C without hepatic coma; E78.5 Hyperlipidemia, unspecified; K21.9 Gastro-esophageal reflux disease without esophagitis; G43.909 Migraine, unspecified, not intractable, without status migrainosus; I25.10 Atherosclerotic heart disease of native coronary artery without angina pectoris; E87.8 Other disorders of electrolyte and fluid balance, not elsewhere classified; Z20.822 Contact with and (suspected) exposure to COVID-19; E11.9 Type 2 diabetes mellitus without complications; R00.1 Bradycardia, unspecified; E87.6 Hypokalemia; Z51.5 Encounter for palliative care; Z68.31 Body mass index [BMI] 31.0-31.9, adult; Z85.51 Personal history of malignant neoplasm of bladder; Z98.42 Cataract extraction status, left eye; Z98.41 Cataract extraction status, right eye; Z95.1 Presence of aortocoronary bypass graft; Z68.28 Body mass index [BMI] 28.0-28.9, adult
CPT/HCPCS: 36415; 36600; 70450; 71045; 74018; 74022; 76770; 80048; 80053; 80061; 80074; 80307; 80320; 81001; 82140; 82550; 82553; 82565; 82570; 82805; 82962; 83735; 83880; 84100; 84132; 84165; 84295; 84300; 84439; 84443; 84484; 85007; 85025; 85027; 85610; 85730; 86021; 86160; 86225; 87040; 87086; 89050; 93005; 93306; 94002; 94003; 94640; 94644; 94660; 96365; 96375; G0378; A9270-GY; C9113; G0480; J0330; J0360; J0610; J0696; J1265; J1630; J1644; J1815; J1940; J2060; J2250; J2543; J2704; J2930; J3475; J3480; J3490; J7030; J7042; J7070; J7120; J7512; P9047; U0003